=== PATIENT | female | born 1935 | race Caucasian/White ===

== ENCOUNTER → 2017-10-14 13:57 | Outpatient (CLI) | payer SELFPAY ==
[2016-07-10 14:12] VITALS: BMI 23.1
--- NOTE | 2017-10-14 14:04 | ECHOD_ITS ---
Reason For Study: Murmur Procedure This was a 2D Doppler, Color Flow transthoracic echocardiogram. Exam performed in department. Left Ventricle Mild concentric left ventricular hypertrophy. The estimated ejection fraction is 65 %. Stage 2 diastolic dysfunction. No regional wall motion abnormalities noted. Right Ventricle Mildly dilated right ventricle. Normal systolic function. Atria The left atrium is moderately enlarged. Normal right atrium. Normal atrial septum. Mitral Valve Mild diffuse mitral valve thickening. Moderate mitral annular calcification extending into the posterior leaflet. Tricuspid Valve Normal tricuspid valve. Trivial tricuspid valve insufficiency. Right ventricular systolic pressure estimated to be 30 mmHg. Aortic Valve Trisinus/trileaflet aortic valve. Moderate focal aortic valve calcification. Mild restriction of the aortic valve. Mild aortic stenosis. Mild (1+) aortic valve insufficiency. Pulmonic Valve Normal pulmonic valve. Great Vessels Normal aortic root. Normal arch. Normal inferior vena cava. Inferior vena cava collapse with sniff. Pericardium/Pleural No pericardial effusion. MMode/2D Measurements & Calculations LVIDd: 3.3 cm IVSd: 1.4 cm LVOT diam: 1.9 cm LVIDs: 2.2 cm LVPWd: 1.1 cm LVOT area: 2.9 cm2 RVDd: 3.8 cm FS: 33.7 % Ao root diam: 3.2 cm LAV(MOD-sp4): 66.3 ml LA A4 area: 22.1 cm2 LA dimension: 4.0 cm RA A4 area: 16.0 cm2 Time Measurements MV dec time: 0.25 sec Doppler Measurements & Calculations MV E max lorne: 104.1 cm/sec Lat Peak E' Lorne: 5.7 cm/sec Med Peak E' Lorne: 5.8 cm/sec MV A max lorne: 117.0 cm/sec E/E' lat: 18.1 E/E' med: 17.9 MV E/A: 0.89 MV V2 max: 141.6 cm/sec MV P1/2t max lorne: 140.6 cm/sec Ao V2 max: 254.6 cm/sec MV max P.0 mmHg MV P1/2t: 95.2 msec Ao max P.0 mmHg MV V2 mean: 79.5 cm/sec MV dec slope: 432.4 cm/sec2 Ao V2 mean: 163.4 cm/sec MV mean P.0 mmHg MVA(P1/2t): 2.3 cm2 Ao mean P.7 mmHg MV V2 VTI: 50.0 cm Ao V2 VTI: 60.1 cm MVA(VTI): 1.3 cm2 LIDIA(I,D): 1.1 cm2 LIDIA(V,D): 1.1 cm2 AI max lorne: 446.9 cm/sec LV V1 max: 96.9 cm/sec SV(LVOT): 65.2 ml AI max P.9 mmHg LV V1 max P.8 mmHg AI dec slope: 202.7 cm/sec2 LV V1 mean P.7 mmHg AI P1/2t: 645.7 msec LV V1 mean: 59.8 cm/sec LV V1 VTI: 22.8 cm PA V2 max: 93.4 cm/sec TR max lorne: 249.3 cm/sec TR max P.9 mmHg Interpretation Summary Mild concentric left ventricular hypertrophy. The estimated ejection fraction is 65 %. Stage 2 diastolic dysfunction. The left atrium is moderately enlarged. Right ventricular systolic pressure estimated to be 30 mmHg. Mild aortic stenosis. Mild (1+) aortic valve insufficiency. Compared to echo report dated 07/08/2016, no appreciable changes noted. Ordering Physician: Dontrell Dawson Referring Physician: Dontrell Dawson Performed By: Matthew Gupta RCS
== END ==
PROVIDERS: Family Provider Family Medicine; PCP Family Medicine; Visit Provider Internal Medicine Cardiovascular Disease
DX: I25.10 Atherosclerotic heart disease of native coronary artery without angina pectoris (principal); I34.0 Nonrheumatic mitral (valve) insufficiency; I10 Essential (primary) hypertension; I11.0 Hypertensive heart disease with heart failure
CPT/HCPCS: 93306

== ENCOUNTER → 2017-11-11 14:06 | Outpatient (CLI) | payer SELFPAY ==
[2016-07-10 14:12] VITALS: BMI 23.1
== END ==
PROVIDERS: Family Provider Family Medicine; PCP Family Medicine; Visit Provider Surgery
DX: I65.23 Occlusion and stenosis of bilateral carotid arteries (principal)
CPT/HCPCS: 93880

== ENCOUNTER → 2017-11-16 08:22 | Outpatient (CLI) | payer SELFPAY ==
[2016-07-10 14:12] VITALS: BMI 23.1
[2017-11-16 08:46] LABS: CREATININE FINGERSTICK < 0.6 mg/dL (0.55-1.02); EGFR FINGERSTICK > 60.0000 mL/min (>60)
== END ==
PROVIDERS: Family Provider Family Medicine; PCP Family Medicine; Visit Provider Surgery
DX: I65.23 Occlusion and stenosis of bilateral carotid arteries (principal)
CPT/HCPCS: 70498; Q9967

== ENCOUNTER → 2018-04-06 09:42 | Outpatient (CLI) | payer SELFPAY ==
[2016-07-10 14:12] VITALS: BMI 23.1
[2018-02-01 10:15] VITALS: BMI 28.8
--- NOTE | 2018-04-06 09:48 | CDU_ITS ---
Reason For Study: carotid stenosis Rt. Velocities/BP Lt. Velocities/BP Prox CCA 75.0/11.1 cm/sec. Prox CCA 70.4/18.8 cm/sec. Mid CCA 78.6/10.6 cm/sec. Mid CCA 79.7/20.5 cm/sec. Dist CCA 57.5/11.1 cm/sec. Dist CCA 95.0/23.5 cm/sec. Prox ICA 75.0/12.9 cm/sec. Prox ICA 314/76.7 cm/sec. Mid ICA 71.5/21.1 cm/sec. Mid ICA 273/56.6 cm/sec. Dist ICA 80.3/24.0 cm/sec. Dist ICA 132/43.2 cm/sec. Rt. ICA/CCA = 1.0. Lt. ICA/CCA = 3.9. Prox ECA 130/9.43 cm/sec. Prox ECA 272 cm/sec. Rt. Vert. 70.4 cm/sec. Lt. Vert. 126/29.5 cm/sec. Right Extracranial There is homogeneous, smooth atherosclerotic plaque noted in the right common carotid artery. There is heterogeneous, irregular atherosclerotic plaque noted in the right internal carotid artery. There is homogeneous, smooth atherosclerotic plaque noted in the right external carotid artery. Antegrade flow is noted in the right vertebral artery. No end diastolic flow seen in the righ Vertebral artery. Left Extracranial There is heterogeneous, irregular atherosclerotic plaque noted in the left common carotid artery. There is heterogeneous, irregular atherosclerotic plaque noted in the left internal carotid artery. The atherosclerotic plaque causes acoustic shadowing. There is heterogeneous, irregular atherosclerotic plaque noted in the left external carotid artery. Antegrade flow is noted in the left vertebral artery. There is heterogeneous, irregular atherosclerotic plaque noted in the left bulb. Procedure Carotid Duplex 80642. The exam was diagnostic. Exam performed in department. 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 History of right carotid endarterectomy 2010. 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 No change from 11/11/17. Ordering Physician: Harinder Barreto Performed By: Duarte Bateman RVT
== END ==
PROVIDERS: Family Provider Family Medicine; PCP Family Medicine; Referring Provider Surgery; Visit Provider Surgery
DX: I65.21 Occlusion and stenosis of right carotid artery (principal); I65.22 Occlusion and stenosis of left carotid artery
CPT/HCPCS: 93880

== ENCOUNTER 2018-05-05 05:40 | Inpatient (IN) | payer SELFPAY ==
[2016-07-10 14:12] VITALS: BMI 23.1
[2018-04-06 12:29] VITALS: BMI 28.7
[2018-04-28 13:29] VITALS: BP 119/43; PULSE 71; RESP 17; TEMP 36.5; O2SAT 96; BMI 29.2
--- NOTE | 2018-04-28 13:52 | SDCEKG_ITS ---
Test Reason : Blood Pressure : / mmHG Vent. Rate : 065 BPM Atrial Rate : 065 BPM P-R Int : 132 ms QRS Dur : 086 ms QT Int : 432 ms P-R-T Axes : 049 046 025 degrees QTc Int : 449 ms Normal sinus rhythm Normal ECG Confirmed by ALISSA MELENDEZ, URBANO ([id number]), newspaper editor managing DESIRAE LINARES ([id number]) on 04/30/2018 3:30:14 PM Referred By: Harinder Barreto Confirmed By:URBANO MAXWELL MD
[2018-04-28 15:53] LABS: Hemoglobin 13.5 g/dl (12.0-15.0); Mean Corp Hgb Conc 33.8 g/gl (32-36); Mean Corpuscular Hgb 28.8 pg (27.0-32.0); Mean Corpuscular Volume 85.3 fL (81-99); Mean Platelet Vol. 10.8 fl (6.2-12.0); Platelet Count 227 K/mm3 (150-450); RBC Distribution Width CV 12.7 % (11.6-14.6); RBC Distribution Width SD 38.6 fl (35.1-43.9); Red Blood Count 4.69 M/mm3 (4.2-5.4); White Blood Count 6.9 K/mm3 (4.4-11.0)
[2018-04-28 15:55] LABS: Scan Indicated on CBC? Y/N NO
[2018-04-28 16:06] LABS: Anion Gap 11 (5-15); BUN 22 mg/dL (7-18); BUN/Creat Ratio 30.9 RATIO (10-20); Calcium,Total 9.3 mg/dL (8.5-10.1); Chloride 104 mmol/L (98-107); Creatinine, Serum 0.71 mg/dL (0.55-1.02); EST Glomerular Filtration Rate 83 mL/min (>60); Est Glom Filt Rate - Afr Amer 101 mL/min (>60); Estimated Creatinine Clearance 44.21 ml/min; Glucose 184 mg/dL (74-106); Potassium 3.8 mmol/L (3.5-5.1); Sodium Level 143 mmol/L (136-145)
[2018-04-28 16:09] LABS: Hemoglobin A1c 8.1 % (4.2-6.3)
[2018-05-05] VITALS (26 sets, daily range): BP systolic 95–176; BP diastolic 39–71; PULSE 61–77; RESP 16–18; TEMP 36.1–36.9; O2SAT 92–100; BMI 29.2; BMI 30.2
[2018-05-05 06:31] LABS: Bedside Glucose 177 mg/dL (70-110)
--- NOTE | 2018-05-05 06:49 | PCM.OPRPT ---
Problem List (1) Carotid stenosis, left Status: Acute Report of Operation Date of Procedure: 05/05/18 Pre-Operative Diagnosis: Critical stenosis left extracranial internal carotid Post-Operative Diagnosis: Same Surgery/Procedure Performed:: Right radial arterial line placement. Left carotid endarterectomy with patch angioplasty Description of Surgical Findings:: Timeout and informed consent was obtained. At the bedside David test performed demonstrating adequate ulnar flow. The right wrist was gently extended and prepped with Betadine. Ultrasound was used to identify the right radial artery. 1% lidocaine was used as a local anesthetic. A total of 1 cc was used. A 20-gauge aero Angiocath was advanced into the vessel and with Seldinger wire technique was easily advanced. It was secured to pressure tubing. Was secured to skin with 3-0 silk. OpSite and Sunshine wrap dressing applied. Hand was viable with no apparent complication good waveform obtained. Timeout and informed consent was obtained. She was taken to the operating room placed supine on the table. She underwent general endotracheal intubation anesthesia. Ancef 2 g given intravenously preoperatively. The left neck was sterilely prepped and draped. An oblique incision was made along the anterior border of the sternocleidomastoid. Sharp dissection was carried down through the subtenons tissue. Hemostasis obtained with electrocautery and 3-0 Vicryl ties. The sternocleidomastoid was reflected laterally as the platysma was incised. Sharp dissection carried down to the internal jugular vein. The crossing facial vein was secured with 3-0 Vicryl. The internal jugular was reflected laterally and the common carotid identified. Circumferential control was seen in the common carotid and a Quintanilla tie of Dacron tape was loosely placed. Dissection was then performed cephalad. The ansa cervicalis was identified and protected. Vagus nerve identified protected. The hypoglossal nerve identified and carefully moved medially. Circumferential control was obtained of the internal carotid and a Dacron tape and Benjamin tourniquet was applied. Circumferential control of the external carotid with a vessel loop and of the superior thyroid with a Quintanilla tie of 3-0 Vicryl. The patient received 1000 units of heparin based upon weight. After adequate Strickling time peripheral vascular clamps were placed in the internal common and external carotid 11 blade was used to make an arteriotomy there was very dense calcific plaque at the carotid bulb and proximal portion of the internal carotid. A Quintanilla scissors is used to advance through this. Then a #10 USCI style shunt was placed cephalad and proximally. It was secured in place with a Dacron and Benjamin tourniquet. A endarterectomy was performed the layer of the external elastic lamina. The plaque was sharply transected proximally then very nice feathering at the internal carotid was achieved and an inversion endarterectomy was performed of the external carotid. Further debris was carefully removed with fine forceps. Irrigation was performed. Kiel that I had a nice endarterectomy with no areas of flap. A Vascu-Guard bovine pericardium patch reference number of [id number] p.m. number [id number]. Lot number [id number] The patch was shaped to form and then a patch angioplasty was created with running 6-0 Prolene. Prior to completion then the shunt was removed the vessel was irrigated the patch angioplasty was completed clamps were removed. There were several areas that required repair so actually the clamps were reapplied briefly as interrupted 7-0 Prolene's were used to repair areas on the patch. Then clamps were removed there appeared to be good pulsatile flow. Cerebral oximetry did demonstrate a slight decline on the left. This resolved with release of all clamps. Several more interrupted 7-0 Prolene sutures were required until hemostasis was achieved. The patient had heparin reversal with 30 mg of protamine. Patient still was oozy at the completion so I did use FloSeal into the neck bed. The wound was then closed in layers by approximating the platysma with a running 3-0 Vicryl. The skin edges proximal and running septic or 5-0 Vicryl. The baltazar-incisional area is anesthetized with 10 cc of 0.5% Marcaine. Steri-Strips Telfa tape dressings applied. Sponge and instrument and needle counts were reported the surgery were correct. Specimen includes a plaque. Drains none. Blood loss 100 cc. Harinder Barreto M.D., F.A.C.S. Type of Anesthesia:: General Anesthesiologist: Estefanía Neumann
--- NOTE | 2018-05-05 06:54 | DCINST_ITS ---
<Harinder Barreto - Last Filed: 05/05/18 06:53> Discharge Diet: Light diet - advance as tolerated - if you have questions about your diet instructions, please talk to you doctor. Discharge Activity: May Not Drive - for 1 week or while taking narcotic pain medicine. May shower in (days): 3 - May shower on Thursday Lifting Restrictions: 10 pounds Call your doctor if your incision/area has: Continuous Slow Oozing, Sudden Increased Bleeding, Increased Pain/ Swelling, Increased Redness, Foul Smelling Discharge Call your doctor if you observe: Fever of 101 or Higher Suture Line Care: Avoid Pulling/Pushing, Avoid Pinching/Bending Additional Dressing/Incision Instructions:: You may protect the incision with a gauze dressing and tape as needed. If nothing is rubbing on the incision then it may be left open. Remove the Steri-Strips approximately 7 days after discharge Allergies/Adverse Reactions: Allergies rosuvastatin Adverse Reaction (Verified 04/28/18 13:18) myalgia Medications to take at Discharge Nitroglycerin [Nitrostat] 0.4 mg SUBLINGUAL Q5M PRN #20 tab 07/11/16 sertraline 50 mg tablet 50 mg PO QHS 03/09/17 vitamin B complex tablet 1 tab PO DAILY 04/06/18 Aspirin E.C. [Ecotrin] 81 mg PO DAILY@0800 04/28/18 Cholecalciferol (Vitamin D3) [Vitamin D3] 10,000 unit PO QODAY 04/28/18 Clopidogrel Bisulfate [Plavix] 75 mg PO DAILY 04/28/18 Lisinopril [Zestril] 20 mg PO BID 04/28/18 Metoprolol Tartrate 12.5 mg PO BID 04/28/18 Simvastatin 40 mg PO QPM 04/28/18 Ubidecarenone/Vitamin E [Co Q-10 50 mg Softgel] 1 each PO QHS 04/28/18 Hydrocodone Bitart/Apap 5-325 [[place] 5MG-325MG] 1 tablet PO Q6H PRN PRN 2 Days #6 tablet 05/05/18 The following prescriptions were given: Hydrocodone Bitart/Apap 5-325 [[place] 5MG-325MG] 1 tablet PO Q6H PRN PRN 2 Days #6 tablet PRN Reason: Pain Primary Care Physician: Murphy Burton DO [Primary Care Provider] - Test Results: Test results from this visit will be discussed in further detail at your follow- up appointment, if applicable. Please Follow Up With: Harinder Barreto MD - [phone] When: Call to make an appointment to be seen in about 10 days. <Shaina Sears - Last Filed: 05/06/18 11:00> Test Results: Test results from this visit will be discussed in further detail at your follow- up appointment, if applicable. Proposed Discharge Date: 05/06/18
[2018-05-05] MEDS: Cefazolin 2 GM in 0.9% Normal Saline 100 ML IV (07:15)
--- NOTE | 2018-05-05 07:15 | PLAQ_PTH ---
PATIENT: SOPHIA PRATHER LOC: [facility] U#:[id number] AGE/SX: 83/F ROOM: WA301 RE05/05/[address]: Dr. Harinder Barreto MD : [id number] BED: 1 DIS: 05/06/2018 SPEC #: [id number] RECD: 05/05/18 14:02 STATUS: JAZMYN MARESZac #: [id number] RITA: 05/05/18 07:[address]: Harinder Barreto DEPT: SURGICAL PATHOLOGY RECD BY: Agusto Castellano ENTERED: 05/05/18 14:11 SP TYPE: PLAQUE OTHR DR: Dr. Murphy Burton, DO Tissues: PLAQUE Procedures: Decalcification bone/plaque Surgery Specimen Level III HEADER OPERATION: Carotid endarterectomy PRE-OP DIAGNOSIS: Left carotid stenosis TISSUE SUBMITTED: Left carotid plaque MICROSCOPIC DIAGNOSIS Left carotid plaque, endarterectomy: Fragments of calcified atheromatous plaque. Focal osseous and hemopoietic metaplasia. AM:joey 05/10/18 COMMENT Case has been reviewed in consultation with Dr. Winn who concurs with the above diagnosis. IDC:TIP GROSS DESCRIPTION Received in fixative is one container labeled with the patient's name and designated left carotid plaque. The specimen consists of a Y-shaped piece of keating, indurated tissue measuring 3.5 cm in length and up to 1 cm in diameter. The specimen cuts with gritty sensation. One edge is focally obliterated. The entire specimen is submitted in one cassette after decalcification. / TIP:joey 05/05/18 TC:5 CPT: 02885, 53466
[2018-05-05] MEDS: Heparin Injection (Vial) 5,000 UNIT/ML VIAL 5000 UNIT (07:43)
[2018-05-05] MEDS: Bupivacaine 0.5% PF 10 ML VIAL (09:45)
--- NOTE | 2018-05-05 11:38 | NURSING ---
disparity noted between monitor arm BP and arterial BP, RN noted pressure bag had deflated since pt arrival, art line flushed and zeroed and pressure bag reinflated, arterial BP and monitor BP left arm now are within 10 points of each other, pt cont to c/o headache, but states is improving. neuro check intact.
[2018-05-05 12:36] LABS: Bedside Glucose 162 mg/dL (70-110)
--- NOTE | 2018-05-05 14:11 | NURSING ---
Arrived to floor at this time via bed.
--- NOTE | 2018-05-05 15:48 | NURSING ---
Pt has tolerated a clear liquid diet since arrived to floor. Pt instructed how to order meals and that she is a regular diet per orders. HOB is at 30 degrees and Foot of bed is Elevated at approximately 10 degrees.
--- NOTE | 2018-05-05 16:11 | CPS ---
STARTED BY NURSING
[2018-05-05] MEDS: Cefazolin 1 GM/50 ML BAG IV ×2 (16:57→23:46)
[2018-05-05] MEDS: Lactated Ringers 1,000 ML 30 ML IV (16:57)
[2018-05-05] MEDS: Sertraline 50 MG Tablet PO (21:50)
[2018-05-05] MEDS: Lisinopril 20 MG Tablet PO (21:50)
[2018-05-05] MEDS: Metoprolol Tartrate 25 MG Tablet 12.5 MG PO (21:51)
[2018-05-05] MEDS: 0.9% NaCl Peripheral Flush Adult/Peds IV (23:46)
--- NOTE | 2018-05-05 23:50 | NURSING ---
Walked with pt in the stark-walked half the loop. Pt tolerated well. Pt returned to bed with HOB & legs elevated. SCD's applied.
[2018-05-06] VITALS (7 sets, daily range): BP systolic 138–150; BP diastolic 54–87; PULSE 68–89; RESP 16–18; TEMP 36.8–37.4; O2SAT 93–100
--- NOTE | 2018-05-06 06:19 | PCM.PN.SRG ---
Subjective: Minimal raspy voice but was difficult intubation and passage of tube - Physical Exam HEENT: - - supple neck Neurological: Cranial nerves II-XII grossly intact Vital Signs Temp Pulse Resp BP Pulse Ox 99.4 F H 77 16 138/65 H 95 05/06/18 05:27 05/06/18 05:27 05/06/18 05:27 05/06/18 05:27 05/06/18 05:27 Oxygen Flow Rate (L/min) 2 Oxygen Delivery Method Room Air Weight: 155 lb 2 oz Body Mass Index (BMI) 30.2 Finger Stick Blood Glucose 164 Intake and Output for Last 24 Hours 05/04/18 05/05/18 05/06/18 23:59 23:59 23:59 Intake Total 3071 / 3071 169 / 169 Balance 3071 / 3071 169 / 169 POC Glucose 05/05/18 05/05/18 12:29 06:06 POC Glucose 162 H 177 H Medical Necessity - Tobacco Use Smoking Status: Never smoker Assessment/Plan All Active Problems (Last Reviewed 04/06/18 @ 12:29 by Amparo Ding) Carotid stenosis, left (Acute) Nonrheumatic mitral (valve) insufficiency (Acute) Chest pain (Resolved) Hypertensive urgency (Resolved) Minimal fever, likely pulmonary Mobilize pt and plan discharge today
[2018-05-06] MEDS: Aspirin E.C. 81 MG Tablet PO (08:01)
[2018-05-06] MEDS: Acetaminophen 325 MG Tablet PO (08:01)
[2018-05-06] MEDS: Metoprolol Tartrate 25 MG Tablet 12.5 MG PO (08:05)
[2018-05-06] MEDS: Lisinopril 20 MG Tablet PO (08:06)
== END 2018-05-06 13:05 | disposition home or self-care (01) | DRG 39 ==
PROVIDERS: Anesthesiology; Admitting Provider Surgery; Family Provider Family Medicine; PCP Family Medicine; Referring Provider Surgery; Visit Provider Surgery
PROC: 03CL0ZZ Extirpation of Matter from Left Internal Carotid Artery, Open Approach (ICD-10-PCS; CPT 35301; principal; 2018-05-05 06:55)
DX: I65.22 Occlusion and stenosis of left carotid artery (principal)
CPT/HCPCS: 80048; 82962; 83036; 85027; 88304; 88311; 93005; J7040; J7120; A4216; J2405

== ENCOUNTER 2018-05-06 18:25 | Inpatient (IN) | payer SELFPAY ==
[2016-07-10 14:12] VITALS: BMI 23.1
[2018-05-05 14:11] VITALS: BMI 30.2
[2018-05-06] VITALS (14 sets, daily range): BP systolic 139–230; BP diastolic 64–95; PULSE 85–113; RESP 14–27; TEMP 36.4–37; O2SAT 50–96; BMI 30.5; BMI 28.7
--- NOTE | 2018-05-06 18:37 | ED.DCSUM_ITS ---
- ER Visit Summary Date of Service: 05/06/18 Chief Complaint: Dyspnea History of Present Illness: The patient is a 83 F sent in by surgery team for sudden worsening dyspnea prior to arrival. Status post left carotid endarterectomy yesterday by Dr. Barreto discharge at noon today. Is doing well. States at home prior to arrival felt short of breath trouble catching her breath. States did cough a little sputum. On the way here in she did clear her sputum which helped. States the chills and sweats. However it resolved. No chest pains. Physical Examination: General: Alert and oriented ?3, no acute distress HEENT: Normocephalic, atraumatic. Moist mucosa membranes. Airway patent. No stridor. Neck: supple, left anterior neck with Steri-Strips sutures with no bleeding, no hematoma. Cardiovascular: Regular rate and rhythm, no murmurs Respiratory: Normal breath sounds, symmetric, no distress Abdomen: Soft, nontender, nondistended Extremities: Nontender, no edema, pulses intact ?4 Neuro: no focal neurological deficits. Test Results: WBC 13.9 hemoglobin 12.3. Potassium 4.1. Creatinine 0.69. Glucose 224. Troponin 0 0.096. EKG sinus rhythm [address] changes. I see T wave inversion in leads III. CTA chest: No PE scattered airspace disease concer basia for pneumonia. Emergency Department Course and Treatment: Patient came to the department Dr. Barreto present evaluated she was in no respiratory distress. There was no surgical complications with hematoma or any airway compromise on evaluation. Return vitals pulse ox was 75% on room air and this was accurate per nursing. She was not in respiratory distress. Workup initiated to rule out pulmonary embolism. Labs White count 13, creatinine 0.69. Troponin did have a bump of 0.096. EKG sinus chronic T wave inversions in leads III. CTA chest return negative for PE did note some scattered patchy airspace disease. She was hypoxic, had cough with sputum prior to arrival. She has a white count. Lactic acid and blood cultures due to meeting sepsis criteria. Started on Zosyn and vancomycin. Reevaluation at 2030, increasing work of breathing tachycardic and blood pressure elevation. Discussed respiratory placed on a nasal OptiFlow ABG ordered. I did rediscuss with her surgeon Dr. Barreto cleared for anticoagulation with the elevated troponin aspirin was given. She has no chest pain. Likely strain from her pneumonia. Discussed with hospitalist, Dr. Ron for admission to ICU. Treatment Plan: [] Disposition: Admission Impression: 1. Sepsis 2. Pneumonia 3. Elevated troponin IV. Acute respiratory failure 5. Status post left CEA 6. Hypoxemia This note was generated with Kelan dictation software. It may contain incorrect words, spelling, and punctuation that were not noted in review of the chart prior to signing ED Disposition - Plan for ED Patient: Disposition: Acute Care Hospital [facility] Diagnosis: Pneumonia, Sepsis, Respiratory failure, Elevated troponin, Hypoxemia Referrals: Murphy Burton DO [Primary Care Provider] -
--- NOTE | 2018-05-06 18:58 | CT_ITS ---
STUDY: CTA CHEST REASON FOR EXAM: Female, 83 years old. Hypoxia with history of left carotid endarterectomy. RADIATION DOSAGE (If Supplied By Facility): CTDIvol = ( 6.75 ) mGy, DLP = ( 337.94 ) mGycm TECHNIQUE: The examination was performed with the intravenous administration of 75mL ml of Isovue 370 contrast material. Post-processing of the angiographic images was performed, with multiplanar reformation and 3D reconstruction. Individualized dose optimization techniques were used for this CT. COMPARISON: None. FINDINGS: Normal enhancement of the main pulmonary artery and right and left pulmonary arteries. Normal enhancement of the bilateral peripheral pulmonary arteries. There is no demonstrated pulmonary embolism. There is atherosclerotic calcification of the aortic arch with tortuosity. There is no demonstrated aortic dissection. There are calcifications of the coronary arteries. There are calcified mediastinal lymph nodes. There are calcified bilateral hilar lymph nodes. Normal visualized trachea and bronchi. The lungs are well expanded. Basilar segment left upper lobe airspace disease is present with peribronchial inflammation. There is demonstrated bilateral peribronchial edema with patent bronchials. Bilateral small effusions and scattered areas of basilar airspace disease are present. Small bilateral pleural effusions are present. Normal chest wall structures. Normal osseous structures. Normal visualized upper abdomen. CT/CTA Chest W/WO Contrast IMPRESSION: 1. No evidence of pulmonary embolism or aortic dissection. 2. Left upper lobe basilar segment airspace disease with peribronchial edema versus inflammation. Bilateral basilar peribronchial edema versus inflammation with scattered early patchy airspace disease and small bilateral effusions. Electronically Signed: Deshawn Tellez DO at 20:16 EST , Service support ,
--- NOTE | 2018-05-06 18:58 | EKG12_ITS ---
Test Reason : Blood Pressure : / mmHG Vent. Rate : 096 BPM Atrial Rate : 096 BPM P-R Int : 128 ms QRS Dur : 078 ms QT Int : 348 ms P-R-T Axes : 071 059 018 degrees QTc Int : 439 ms Normal sinus rhythm Junctional ST depression, probably normal Borderline ECG Confirmed by ALISSA MELENDEZ, URBANO ([id number]), offline editor DESIRAE LINARES ([id number]) on 05/10/2018 10:41:53 AM Referred By: Gutierrez Ron Confirmed By:URBANO MAXWELL MD
[2018-05-06 19:20] LABS: Absolute Lymphocyte Count 1.14 X10^3/ul (0.83-4.51); Absolute Neutrophil Count 11.5 X10^3/uL (2.0-7.7); Basophil# 0.02 X10^3/uL; Basophil% 0.1 % (0-1); Eosinophil# 0.11 X10^3/uL; Eosinophils% 0.8 % (0-5); Hematocrit 37.6 % (37-47); Hemoglobin 12.3 g/dl (12.0-15.0); Lymphocyte # 1.14 X10^3/ul (4.0); Lymphocyte % 8.2 % (19-41); Mean Corp Hgb Conc 32.7 g/gl (32-36); Mean Corpuscular Hgb 28.5 pg (27.0-32.0); Mean Corpuscular Volume 87.2 fL (81-99); Mean Platelet Vol. 10.3 fl (6.2-12.0); Monocyte# 1.12 X10^3/uL; Neutrophil % 82.5 % (47-70); Platelet Count 178 K/mm3 (150-450); RBC Distribution Width CV 12.8 % (11.6-14.6); Red Blood Count 4.31 M/mm3 (4.2-5.4); White Blood Count 13.9 K/mm3 (4.4-11.0)
[2018-05-06 19:34] LABS: POSITIVE COUNT NO; POSITIVE DIFFERENTIAL NO; POSITIVE MORPHOLOGY NO
[2018-05-06 19:37] LABS: Anion Gap 8 (5-15); BUN 18 mg/dL (7-18); Calcium,Total 8.3 mg/dL (8.5-10.1); Chloride 102 mmol/L (98-107); Creatinine, Serum 0.69 mg/dL (0.55-1.02); EST Glomerular Filtration Rate 86 mL/min (>60); Est Glom Filt Rate - Afr Amer 104 mL/min (>60); Estimated Creatinine Clearance 46.16 ml/min; Glucose 224 mg/dL (74-106); Potassium 4.1 mmol/L (3.5-5.1); Sodium Level 138 mmol/L (136-145)
[2018-05-06 19:59] LABS: International Normalized Ratio 0.9; Prothrombin Time (Protime)PT. 12.6 SECONDS (11.7-14.9)
[2018-05-06] MEDS: Aspirin 325 MG Tablet PO (21:04)
[2018-05-06 21:07] LABS: Allen Test POS; Base Excess 0 mmol/L (-2 to +2); Bicarbonate 24.2 mmol/L (22-26); Blood Gas Specimen Type ART; EPAP 5; FI02 50; PO2 58 mmHG (75-100); RR 27; SITE L Radial; SO2 91 % (95-99); Total Carbon Dioxide 25 mmol/L; pCO2 34.2 mmHg (35-45); pH 7.46 (7.35-7.45)
[2018-05-06] MEDS: Vancomycin IV 1,000 MG/200 ML BAG 200 MG IV (22:02)
[2018-05-06] MEDS: Sertraline 50 MG Tablet PO (23:08)
[2018-05-06] MEDS: Metoprolol Tartrate 25 MG Tablet 12.5 MG PO (23:08)
[2018-05-06] MEDS: Heparin Injection (Vial) 5,000 UNIT/ML VIAL 5000 UNIT SC (23:09)
[2018-05-07] VITALS (28 sets, daily range): BP systolic 95–146; BP diastolic 44–61; PULSE 65–84; RESP 13–95; TEMP 36.8–37.4; O2SAT 88–99
[2018-05-07 01:24] LABS: M R Staph aureus DNA By PCR Negative (Negative); Probe Check PASS; Specimen Processing Control PASS
--- NOTE | 2018-05-07 02:17 | PCM.RX.CS ---
Consult Pharmacy has been consulted to manage selected antiobiotic: Vancomycin Type of Consult: New start Suspected Infection: Sepsis Prior Doses of Antibiotics Received/Current Regimen: Medications Vancomycin HCl () 500 mg in 100 mls @ 100 mls/hr IV Q12H MASOOD Discontinued Medications Vancomycin HCl (Vancomycin) 1,000 mg in 200 mls @ 200 mls/hr IV X1 ONE Stop: 05/06/18 21:59 Last Admin: 05/06/18 22:02 Dose: 200 mls/hr Labs: Sodium 138 mmol/L (136-145) 05/06/18 19:09 Potassium 4.1 mmol/L (3.5-5.1) 05/06/18 19:09 Chloride 102 mmol/L (98-107) 05/06/18 19:09 Carbon Dioxide 28.0 mmol/L (21.0-32.0) 05/06/18 19:09 Anion Gap 8 (5-15) 05/06/18 19:09 BUN 18 mg/dL (7-18) 05/06/18 19:09 Creatinine 0.69 mg/dL (0.55-1.02) 05/06/18 19:09 Est GFR (MDRD) Af Amer 104 mL/min (>60) 05/06/18 19:09 Est GFR (MDRD) Non-Af 86 mL/min (>60) 05/06/18 19:09 BUN/Creatinine Ratio 26.0 RATIO (10-20) H 05/06/18 19:09 Glucose 224 mg/dL (74-106) H 05/06/18 19:09 Microbiology: Microbiology 05/07/18 00:00 Urine, Random Legionella Antigen - Final 05/07/18 00:00 Urine, Random Streptococcus pneumoniae Antigen (M - Final Weight used for dosin.6 kg Estimated Creatinine Clearance: 46 Goal Trough: 15-20 mcg/mL Pharmacy Plan for Drug Dosing: Pharmacy Service will continue to monitor and adjust dosing as required. Follow-Up Labs: Trough Vancomycin Labs to be done on [date and time ordered]: 05/08/18 @8133
--- NOTE | 2018-05-07 02:50 | HP.PCM_ITS ---
Problem List (1) Community acquired pneumonia Status: Acute (2) Elevated troponin Status: Acute History of Present Illness Date of Admission: 05/06/18 Chief Complaint: shortness of breath Patient was seen on 05/06/2018 at 2200 The patient is a 83 year old F with a significant history of TIA; CAD; diabetes mellitus; hypertension; hyperlipidemia; previous right carotid endarterectomy; who had a left carotid endarterectomy at our hospital on 05/05 and discharged on 05/06/2018 returning again to the hospital on the same day because of progressively worsening shortness of breath. Associated with her symptoms is weakness; diaphoresis and presyncope. On presentation at the emergency department her oxygen saturation was 75%. She was noted to have tachycardia. CTA showed no PE but developing pneumonia. She had a white count of 13.9. At the Emergency department patient was noted to have increased work of breathing with use of her accessory muscles she was initially placed and OptiFlow but later she was transitioned to BiPAP. Patient was admitted to the intensive care unit. Because of elevated troponin but with a recent carotid endarterectomy emergency department doctor discussed the case with a general surgery group that did the carotid endarterectomy. Per general surgery it is okay for patient to receive aspirin. Subsequently patient was given aspirin while at the emergency d epartment. Past Medical History Past Medical History (Chronic Problems): Chronic Problems (Last Reviewed 04/06/18 @ 12:29 by Amparo Ding) Aortic stenosis (Chronic) H/O right coronary artery stent placement (Chronic ~07/10/16) PCI-HIRAL-RCA 3.5 x 12 mm Synergy 07/10/16 Atherosclerotic heart disease of [place] coronary artery without angina pectoris (Chronic) PCI-HIRAL-RCA 3.5 x 12 mm Synergy 07/10/16 HTN (hypertension) (Chronic) HLD (hyperlipidemia) (Chronic) Occlusion and stenosis of right carotid artery (Chronic) PAD (peripheral artery disease) (Chronic) Medical History: Medical History (Last Reviewed 05/07/18 @ 03:25 by Gutierrez Ron MD) Carotid stenosis, left (Acute) I65.22 Nonrheumatic mitral (valve) insufficiency (Acute) I34.0 Atherosclerotic heart disease of [place] coronary artery without angina pectoris (Chronic) I25.10 PCI-HIRAL-RCA 3.5 x 12 mm Synergy 07/10/16 HTN (hypertension) (Chronic) I10 HLD (hyperlipidemia) (Chronic) E78.5 Occlusion and stenosis of right carotid artery (Chronic) I65.21 PAD (peripheral artery disease) (Chronic) I73.9 History of hysterectomy Z90.710 Occlusion and stenosis of left carotid artery I65.22 Aortic valve disorders I35.9 Allergies rosuvastatin Adverse Reaction (Verified 05/06/18 18:26) myalgia Home Medications: Ambulatory Orders Medication Instructions Recorded Nitroglycerin [Nitrostat] 0.4 mg SUBLINGUAL Q5M PRN #20 tab 07/11/16 sertraline 50 mg tablet 50 mg PO QHS 03/09/17 Aspirin E.C. [Ecotrin] 81 mg PO DAILY@0800 04/28/18 Acetaminophen [Tylenol] 650 mg PO PRN PRN 05/06/18 Metoprolol Tartrate 12.5 mg PO BID 05/06/18 Simvastatin [Zocor] 40 mg PO DAILY 05/06/18 Surgical History: Surgical History (Last Reviewed 05/07/18 @ 03:26 by Gutierrez Ron MD) H/O right coronary artery stent placement (Chronic) Onset Date: ~07/10/16 Z95.5 PCI-HIRAL-RCA 3.5 x 12 mm Synergy 07/10/16 History of CEA (carotid endarterectomy) Z98.890 right CEA 2011 Surgical History: hysterectomy - For uterine prolapse, - - Right carotid endarterectomy Lives: With Family Smoking Status: Never smoker - *Family History Paternal Family History: Family History (Last Reviewed 05/07/18 @ 03:26 by Gutierrez Ron MD) Father CAD (coronary artery disease) Hypertension Sister CVA (cerebral vascular accident) Diabetes Arthritis Mother Cancer Daughter Thyroid disorder History Items: Heart Disease Maternal Family History: Family History (Last Reviewed 05/07/18 @ 03:26 by Gutierrez Ron MD) Father CAD (coronary artery disease) Hypertension Sister CVA (cerebral vascular accident) Diabetes Arthritis Mother Cancer Daughter Thyroid disorder History Items: Stroke Review of Systems Constitutional: Reports: Malaise, Weakness. Denies: Chills, Fever, Weight Change HEENT: Denies: Head Aches, Sinus Congestion, Sinus Drainage Cardiovascular: Denies: Chest Pain, Palpitations Respiratory: Reports: Shortness of Breath. Denies: Cough Gastrointestinal: Denies: Abdominal Pain, Nausea, Vomiting Genitourinary: Denies: Dysuria Musculoskeletal: Denies: Joint Pain, Joint Tenderness Skin: Denies: Rash, Wounds Neurological: Denies: Numbness, Tingling, Focal weakness Psychiatric: Denies: Anxiety, Depression, Homicidal Ideations, Suicidal Ideations Hematologic/ Lymphatic: Denies: Easy Bruising, Easy Bleeding VTE Information - Inpt Only VTE Present on Admission: No VTE Mechan Device Prophylaxis: None VTE Pharm Prophylaxis ordered?: Yes Patient Problems: Active and Suspected Problems (Last Reviewed 04/06/18 @ 12:29 by Amparo Ding) Pneumonia (Acute) Sepsis (Acute) Respiratory failure (Acute) Elevated troponin (Acute) Hypoxemia (Acute) Community acquired pneumonia (Acute) - Physical Exam General: Alert, Oriented x3, Cooperative HEENT: Atraumatic, PERRLA, EOMI, Normocephalic Neck: Supple, Trachea Midline, - - left neck with steri strips, dry and intact. Lungs: Clear to auscultation, Tachypneic, Using Accessory Muscles Cardiovascular: No murmurs, Tachycardic Abdomen: Bowel Sounds Present, Soft, Non Tender Extremities: No edema, Capillary Refill Less than 3 Seconds Skin: No rashes, No breakdown Musculoskeletal: No Tenderness to Palpation of Joints or Extremities Neurological: Neuro grossly intact Psych/Mental Status: Anxious Vital Signs Temp Pulse Resp BP Pulse Ox 99.2 F H 74 19 H 146/57 H 98 05/07/18 00:00 05/07/18 02:00 05/07/18 02:00 05/07/18 02:00 05/07/18 02:00 Oxygen Flow Rate (L/min) 6 Oxygen Delivery Method Nasal Cannula Weight: 66.7 kg Body Mass Index (BMI) 28.7 Finger Stick Blood Glucose 164 Intake and Output for Last 24 Hours 05/05/18 05/06/18 05/07/18 23:59 23:59 23:59 Intake Total 408 / 408 Output Total 320 / 320 Balance 88 / 88 Microbiology Past 72 Hours 05/07/18 00:00 Legionella Antigen - Final Urine, Random 05/07/18 00:00 Streptococcus pneumoniae Antigen (M - Final Urine, Random Laboratory Tests Past 24 Hrs 05/06/18 05/06/18 05/06/18 19:09 19:09 19:09 WBC 13.9 H RBC 4.31 Hgb 12.3 Hct 37.6 MCV 87.2 MCH 28.5 MCHC 32.7 RDW 12.8 RDW Differential 41.0 Plt Count 178 MPV 10.3 Immature Gran % (Auto) 0.400 Neut % (Auto) 82.5 H Lymph % (Auto) 8.2 L [place] % (Auto) 8.0 Eos % (Auto) 0.8 Baso % (Auto) 0.1 Absolute Neuts (auto) 11.5 H Absolute Lymphs (auto) 1.14 Total Counted Not Reportable PT 12.6 INR 0.9 APTT 25.0 Specimen Type Sample Site pH Bicarbonate Actual POC Total CO2 Base Excess O2 Saturation O2 % ABG pCO2 ABG pO2 David Test Respiration Rate O2 Delivery Device EPAP IPAP Sodium 138 Potassium 4.1 Chloride 102 Carbon Dioxide 28.0 Anion Gap 8 BUN 18 Creatinine 0.69 Estim Creat Clear Calc 46.16 Est GFR (MDRD) Af Amer 104 Est GFR (MDRD) Non-Af 86 BUN/Creatinine Ratio 26.0 H Glucose 224 H Lactic Acid Calcium 8.3 L Troponin I 0.096 H MRSA (PCR) 05/06/18 05/06/18 05/06/18 20:45 20:59 22:34 WBC RBC Hgb Hct MCV MCH MCHC RDW RDW Differential Plt Count MPV Immature Gran % (Auto) Neut % (Auto) Lymph % (Auto) [place] % (Auto) Eos % (Auto) Baso % (Auto) Absolute Neuts (auto) Absolute Lymphs (auto) Total Counted PT INR APTT Specimen Type ART Sample Site L Radial pH 7.46 H Bicarbonate Actual 24.2 POC Total CO2 25 Base Excess 0 O2 Saturation 91 L O2 % 50 ABG pCO2 34.2 L ABG pO2 58 L David Test POS Respiration Rate 27 O2 Delivery Device Bi / C PAP EPAP 5 IPAP 5 Sodium Potassium Chloride Carbon Dioxide Anion Gap BUN Creatinine Estim Creat Clear Calc Est GFR (MDRD) Af Amer Est GFR (MDRD) Non-Af BUN/Creatinine Ratio Glucose Lactic Acid 1.0 Calcium Troponin I 0.758 H* MRSA (PCR) 05/06/18 05/07/18 22:34 01:00 WBC RBC Hgb Hct MCV MCH MCHC RDW RDW Differential Plt Count MPV Immature Gran % (Auto) Neut % (Auto) Lymph % (Auto) [place] % (Auto) Eos % (Auto) Baso % (Auto) Absolute Neuts (auto) Absolute Lymphs (auto) Total Counted PT INR APTT Specimen Type Sample Site pH Bicarbonate Actual POC Total CO2 Base Excess O2 Saturation O2 % ABG pCO2 ABG pO2 David Test Respiration Rate O2 Delivery Device EPAP IPAP Sodium Potassium Chloride Carbon Dioxide Anion Gap BUN Creatinine Estim Creat Clear Calc Est GFR (MDRD) Af Amer Est GFR (MDRD) Non-Af BUN/Creatinine Ratio Glucose Lactic Acid Calcium Troponin I 1.410 H* MRSA (PCR) Negative Assessment/Plan All Active Problems (Last Reviewed 04/06/18 @ 12:29 by Amparo Ding) Pneumonia (Acute) Sepsis (Acute) Respiratory failure (Acute) Elevated troponin (Acute) Hypoxemia (Acute) Community acquired pneumonia (Acute) Carotid stenosis, left (Acute) Nonrheumatic mitral (valve) insufficiency (Acute) Chest pain (Resolved) Hypertensive urgency (Resolved) The patient is a 83 year old F with a significant history of TIA; CAD; diabetes mellitus; hypertension; and hyperlipidemia who had a left endarterectomy at our hospital on 05/05 and discharged on 05/06/2018 returning again to the hospital on the same day because of progressively worsening shortness of breath; diaphoresis; presyncope and generalized weakness and found to have tachypnea; tachycardia; leukocytosis; elevated troponin; hypoxia and developing pneumonia on CTPA consistent with sepsis secondary to community acquired pneumonia. Sepsis secondary to community-acquired pneumonia Lactic acid: Normal RR: persistently high and between 21-27 Tachycardia: Heart rate between 96-113 Oxygen saturation: 75% required supplemental oxygenation Leukocytosis with white count of 13.9; and with neutrophilic predominance. Blood culture ?2 is pending Independent review of CT shows bilateral multiple infiltrates. Respiratory Gram stain and culture pending Antibiotics: Vancomycin and Zosyn was started on 05/06/2018. Continue vancomycin and Zosyn. MRSA screen ordered. DuoNeb scheduled. Albuterol as needed Legionella antigen screen and Strep antigen ordered Bipap continued Respiratory pathogen panel ordered. Classified as committee acquired pneumonia since patient spent less than 48 hrs. at the hospital. Acute hypoxemic respiratory failure Oxygen saturations 95% on presentation and with use of accessory muscles of respiration. Likely secondary to pneumonia Treatment as above. Hypertension Initially her systolic blood pressure was controlled and it was as high as 230. Cardene drip was ordered to keep blood pressure between 140-160. However before Cardene drip was started her blood pressure had dropped such that she did not need a Cardene drip. Metoprolol continued Trend blood pressures and adjust blood pressure medications. Elevated troponin Her troponin initially was 0.096 and it followed arising because it was high as 1.410. Differential diagnosis include type II PR and non-ST elevation PR. Patient denies chest pain Received aspirin 325 mg at emergency department Daily aspirin ordered. On simvastatin 40 mg at home. Will change to high intensity statin. Consult cardiology. Recent left-sided carotid anatomy Bruno as needed continued Depression Zoloft continued DVT prophylaxis: Heparin subcutaneous. Code Visit Inpatient E&M: 24552 Init Hosp L3
[2018-05-07] MEDS: 0.9% NaCl Peripheral Flush Adult/Peds IV ×3 (04:52→06:20)
[2018-05-07] MEDS: Atorvastatin Calcium 40 MG Tablet PO (04:55)
[2018-05-07 05:15] LABS: Absolute Lymphocyte Count 2.45 X10^3/ul (0.83-4.51); Absolute Neutrophil Count 6.1 X10^3/uL (2.0-7.7); Basophil# 0.02 X10^3/uL; Basophil% 0.2 % (0-1); Hematocrit 35.1 % (37-47); Hemoglobin 11.7 g/dl (12.0-15.0); Lymphocyte # 2.45 X10^3/ul (4.0); Lymphocyte % 24.9 % (19-41); Mean Corp Hgb Conc 33.3 g/gl (32-36); Mean Corpuscular Volume 87.1 fL (81-99); Mean Platelet Vol. 10.6 fl (6.2-12.0); Monocyte# 1.15 X10^3/uL; Monocyte% 11.7 % (0-10); Neutrophil # 6.09 X10^3/uL (2.7-7.7); Neutrophil % 62.1 % (47-70); Platelet Count 177 K/mm3 (150-450); RBC Distribution Width CV 12.4 % (11.6-14.6); RBC Distribution Width SD 38.7 fl (35.1-43.9); Red Blood Count 4.03 M/mm3 (4.2-5.4); White Blood Count 9.8 K/mm3 (4.4-11.0)
[2018-05-07 05:17] LABS: POSITIVE COUNT NO; POSITIVE DIFFERENTIAL NO; POSITIVE MORPHOLOGY NO
--- NOTE | 2018-05-07 05:56 | PCM.PN.BLA ---
Progress Note Pt appears very comfortable No productive cough Left neck supple, minimal tenderness Neuro intact Pt may be on all home meds including ASA and clopidogrel Plan office followup in 7-10 days Appreciate medical assistance
[2018-05-07] MEDS: Furosemide 40 MG/4 ML Vial IV (06:20)
--- NOTE | 2018-05-07 06:51 | PCM.CON.CC ---
Problem List (1) Respiratory failure Status: Acute Qualifiers: Chronicity: acute Respiratory failure complication: hypoxia Qualified Code(s): J96.01 - Acute respiratory failure with hypoxia (2) Elevated troponin Status: Acute (3) Aortic stenosis Status: Chronic Qualifiers: Cardiac valve disease etiology: nonrheumatic Qualified Code(s): I35.0 - Nonrheumatic aortic (valve) stenosis (4) Carotid stenosis, left Status: Acute Comment: Carotid endarterectomy April 2018 (5) H/O right coronary artery stent placement Status: Chronic Comment: PCI-HIRAL-RCA 3.5 x 12 mm Synergy 07/10/16 (6) HTN (hypertension) Status: Chronic Qualifiers: Hypertension type: essential hypertension Qualified Code(s): I10 - Essential (primary) hypertension (7) HLD (hyperlipidemia) Status: Chronic Qualifiers: Hyperlipidemia type: pure hypercholesterolemia Qualified Code(s): E78.00 - Pure hypercholesterolemia, unspecified; E78.0 - Pure hypercholesterolemia (8) 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 Patient had a left carotid endarterectomy yesterday by Dr. Barreto and was discharged. Patient states she felt well at discharge, but in the evening developed acute shortness of breath. Patient did have a cough with mild sputum. Patient reported subjective fevers, but no temperature was taken. Patient denies any chest pain during these events. No swelling or discomfort was noted at the surgical site. In the emergency room, patient was evaluated by Dr. Barreto and there were no surgical complications or airway compromise noted. Patient was noted to be 75% on room air and had an elevated white count of 13,000. Troponin was slightly elevated at 0.096 and CTA showed no PE, but scattered bilateral patchy airspace disease. Patient was initially placed on CPAP therapy with improvement in saturations. Patient was then transferred to the intensive care unit. Since being in the intensive care unit, patient has remained on nasal cannula oxygen. Patient reports subjective improvement in overall condition, but is still having significant shortness of breath with any exertion. Patient is not complaining of any chest pain, abdominal pain, nausea or vomiting. Patient is not reporting any sinus congestion, postnasal drip or productive cough. Patient denies any history of previous pulmonary pathology. Review of systems otherwise negative x10 systems. Past Medical History Past Medical History (Chronic Problems): Chronic Problems (Last Reviewed 05/07/18 @ 03:25 by Gutierrez Ron MD) Aortic stenosis (Chronic) H/O right coronary artery stent placement (Chronic ~07/10/16) PCI-HIRAL-RCA 3.5 x 12 mm Synergy 07/10/16 Atherosclerotic heart disease of [place] coronary artery without angina pectoris (Chronic) PCI-HIRAL-RCA 3.5 x 12 mm Synergy 07/10/16 HTN (hypertension) (Chronic) HLD (hyperlipidemia) (Chronic) Occlusion and stenosis of right carotid artery (Chronic) PAD (peripheral artery disease) (Chronic) Medical History: Medical History (Last Reviewed 05/07/18 @ 03:25 by Gutierrez Ron MD) Carotid stenosis, left (Acute) I65.22 Nonrheumatic mitral (valve) insufficiency (Acute) I34.0 Atherosclerotic heart disease of [place] coronary artery without angina pectoris (Chronic) I25.10 PCI-HIRAL-RCA 3.5 x 12 mm Synergy 07/10/16 HTN (hypertension) (Chronic) I10 HLD (hyperlipidemia) (Chronic) E78.5 Occlusion and stenosis of right carotid artery (Chronic) I65.21 PAD (peripheral artery disease) (Chronic) I73.9 History of hysterectomy Z90.710 Occlusion and stenosis of left carotid artery I65.22 Aortic valve disorders I35.9 Allergies rosuvastatin Adverse Reaction (Verified 05/06/18 18:26) myalgia Home Medications: Ambulatory Orders Medication Instructions Recorded Nitroglycerin [Nitrostat] 0.4 mg SUBLINGUAL Q5M PRN #20 tab 07/11/16 sertraline 50 mg tablet 50 mg PO QHS 03/09/17 Aspirin E.C. [Ecotrin] 81 mg PO DAILY@0800 04/28/18 Acetaminophen [Tylenol] 650 mg PO PRN PRN 05/06/18 Metoprolol Tartrate 12.5 mg PO BID 05/06/18 Simvastatin [Zocor] 40 mg PO DAILY 02/07/19 Surgical History: Surgical History (Last Reviewed 05/07/18 @ 03:26 by Gutierrez Ron MD) H/O right coronary artery stent placement (Chronic) Onset Date: ~07/10/16 Z95.5 PCI-HIRAL-RCA 3.5 x 12 mm Synergy 07/10/16 History of CEA (carotid endarterectomy) Z98.890 right CEA 2011 Surgical History: hysterectomy - For uterine prolapse, - - Right carotid endarterectomy Lives: With Family Smoking Status: Never smoker - *Family History Paternal Family History: Family History (Last Reviewed 05/07/18 @ 03:26 by Gutierrez Ron MD) Father CAD (coronary artery disease) Hypertension Sister CVA (cerebral vascular accident) Diabetes Arthritis Mother Cancer Daughter Thyroid disorder History Items: Heart Disease Maternal Family History: Family History (Last Reviewed 05/07/18 @ 03:26 by Gutierrez Ron MD) Father CAD (coronary artery disease) Hypertension Sister CVA (cerebral vascular accident) Diabetes Arthritis Mother Cancer Daughter Thyroid disorder History Items: Stroke Review of Systems Comment: See HPI Patient Problems: Active and Suspected Problems (Last Reviewed 05/07/18 @ 03:25 by Gutierrez Ron MD) Pneumonia (Acute) Sepsis (Acute) Respiratory failure (Acute) Elevated troponin (Acute) Hypoxemia (Acute) Community acquired pneumonia (Acute) Objective: CT scan of the chest was personally reviewed. This does have interstitial and alveolar infiltrates at the bases with peribronchial cuffing, left greater than right. Small effusions are noted. Echocardiogram (10/14): EF 65% with stage II diastolic dysfunction and mild aortic stenosis - Physical Exam General: Alert, Oriented x3, Cooperative, No apparent distress, - - No conversational dyspnea. Appears stated age. HEENT: Atraumatic, PERRLA, EOMI, Normocephalic, - - No scleral icterus or injection noted. Oral: Moist Mucosa, No Gingival or Mucosal Lesions/ Ulcerations Neck: Supple, No JVD, No Nodes, Trachea Midline, - - Left carotid sutures are clean, dry and intact. No induration appreciated. No ecchymosis or exudate appreciated. Lungs: No rhonchi, No wheeze, Diminished, Rales Cardiovascular: Regular rate, Regular Rhythm, Normal S1, Normal S2, Murmur - Grade 3 out of 6 systolic ejection murmur at the right sternal border, No rub noted, No Gallop Abdomen: Bowel Sounds Present, Soft, Non Tender, Non-Distended Extremities: No clubbing, No cyanosis, No edema, Capillary Refill Less than 3 Seconds Skin: No rashes, No breakdown, Incision - As mentioned above left carotid Musculoskeletal: No Tenderness to Palpation of Joints or Extremities Lymphatic: No Cervical, Supraclavicular, or Inguinal Adenopathy Neurological: Cranial nerves II-XII grossly intact, Neuro grossly intact, Motor Exam 5/5 strength throughout Psych/Mental Status: Alert and oriented to time, place, person, mood and affect Vital Signs Temp Pulse Resp BP Pulse Ox 37.2 C 68 16 116/44 L 98 05/07/18 04:00 05/07/18 06:00 05/07/18 06:00 05/07/18 06:00 05/07/18 06:00 Oxygen Flow Rate (L/min) 6 Oxygen Delivery Method Nasal Cannula Weight: 66.8 kg Body Mass Index (BMI) 28.7 Finger Stick Blood Glucose 164 Intake and Output for Last 24 Hours 05/05/18 05/06/18 05/07/18 23:59 23:59 23:59 Intake Total 466.7 / 466.7 Output Total 820 / 820 Balance -353.3 / -353.3 Microbiology Past 72 Hours 05/07/18 00:00 Legionella Antigen - Final Urine, Random 05/07/18 00:00 Streptococcus pneumoniae Antigen (M - Final Urine, Random Laboratory Tests Past 24 Hrs 05/06/18 05/06/18 05/06/18 19:09 19:09 19:09 WBC 13.9 H RBC 4.31 Hgb 12.3 Hct 37.6 MCV 87.2 MCH 28.5 MCHC 32.7 RDW 12.8 RDW Differential 41.0 Plt Count 178 MPV 10.3 Immature Gran % (Auto) 0.400 Neut % (Auto) 82.5 H Lymph % (Auto) 8.2 L Waldo % (Auto) 8.0 Eos % (Auto) 0.8 Baso % (Auto) 0.1 Absolute Neuts (auto) 11.5 H Absolute Lymphs (auto) 1.14 Total Counted Not Reportable PT 12.6 INR 0.9 APTT 25.0 Specimen Type Sample Site pH Bicarbonate Actual POC Total CO2 Base Excess O2 Saturation O2 % ABG pCO2 ABG pO2 David Test Respiration Rate O2 Delivery Device EPAP IPAP Sodium 138 Potassium 4.1 Chloride 102 Carbon Dioxide 28.0 Anion Gap 8 BUN 18 Creatinine 0.69 Estim Creat Clear Calc 46.16 Est GFR (MDRD) Af Amer 104 Est GFR (MDRD) Non-Af 86 BUN/Creatinine Ratio 26.0 H Glucose 224 H Lactic Acid Calcium 8.3 L Troponin I 0.096 H MRSA (PCR) 05/06/18 05/06/18 05/06/18 20:45 20:59 22:34 WBC RBC Hgb Hct MCV MCH MCHC RDW RDW Differential Plt Count MPV Immature Gran % (Auto) Neut % (Auto) Lymph % (Auto) Waldo % (Auto) Eos % (Auto) Baso % (Auto) Absolute Neuts (auto) Absolute Lymphs (auto) Total Counted PT INR APTT Specimen Type ART Sample Site L Radial pH 7.46 H Bicarbonate Actual 24.2 POC Total CO2 25 Base Excess 0 O2 Saturation 91 L O2 % 50 ABG pCO2 34.2 L ABG pO2 58 L David Test POS Respiration Rate 27 O2 Delivery Device Bi / C PAP EPAP 5 IPAP 5 Sodium Potassium Chloride Carbon Dioxide Anion Gap BUN Creatinine Estim Creat Clear Calc Est GFR (MDRD) Af Amer Est GFR (MDRD) Non-Af BUN/Creatinine Ratio Glucose Lactic Acid 1.0 Calcium Troponin I 0.758 H* MRSA (PCR) 05/06/18 05/07/18 05/07/18 22:34 01:00 04:55 WBC 9.8 RBC 4.03 L Hgb 11.7 L Hct 35.1 L MCV 87.1 MCH 29.0 MCHC 33.3 RDW 12.4 RDW Differential 38.7 Plt Count 177 MPV 10.6 Immature Gran % (Auto) 0.100 Neut % (Auto) 62.1 Lymph % (Auto) 24.9 Waldo % (Auto) 11.7 H Eos % (Auto) 1.0 Baso % (Auto) 0.2 Absolute Neuts (auto) 6.1 Absolute Lymphs (auto) 2.45 Total Counted Not Reportable PT INR APTT Specimen Type Sample Site pH Bicarbonate Actual POC Total CO2 Base Excess O2 Saturation O2 % ABG pCO2 ABG pO2 David Test Respiration Rate O2 Delivery Device EPAP IPAP Sodium Potassium Chloride Carbon Dioxide Anion Gap BUN Creatinine Estim Creat Clear Calc Est GFR (MDRD) Af Amer Est GFR (MDRD) Non-Af BUN/Creatinine Ratio Glucose Lactic Acid Calcium Troponin I 1.410 H* MRSA (PCR) Negative 05/07/18 04:55 WBC RBC Hgb Hct MCV MCH MCHC RDW RDW Differential Plt Count MPV Immature Gran % (Auto) Neut % (Auto) Lymph % (Auto) Waldo % (Auto) Eos % (Auto) Baso % (Auto) Absolute Neuts (auto) Absolute Lymphs (auto) Total Counted PT INR APTT Specimen Type Sample Site pH Bicarbonate Actual POC Total CO2 Base Excess O2 Saturation O2 % ABG pCO2 ABG pO2 David Test Respiration Rate O2 Delivery Device EPAP IPAP Sodium Potassium Chloride Carbon Dioxide Anion Gap BUN Creatinine Estim Creat Clear Calc Est GFR (MDRD) Af Amer Est GFR (MDRD) Non-Af BUN/Creatinine Ratio Glucose Lactic Acid Calcium Troponin I 1.940 H* MRSA (PCR) Clinical Impression(s) from Imaging Studies Chest CTA 05/06/18 18:58 IMPRESSION: 1. No evidence of pulmonary embolism or aortic dissection. 2. Left upper lobe basilar segment airspace disease with peribronchial edema versus inflammation. Bilateral basilar peribronchial edema versus inflammation with scattered early patchy airspace disease and small bilateral effusions. Electronically Signed: Deshawn Tellez DO at 20:16 EST , Service support , Assessment/Plan Active and Suspected Problems (Last Reviewed 05/07/18 @ 03:25 by Gutierrez Ron MD) Pneumonia (Acute) Sepsis (Acute) Respiratory failure (Acute) Elevated troponin (Acute) Hypoxemia (Acute) Community acquired pneumonia (Acute) RECOMMENDATIONS: 1. Administer Lasix therapy 2. Defer to cardiology on anticoagulation 3. Wean oxygen as tolerated 4. Okay to keep empiric antibiotics for 48 hours 5. Continue to cycle troponins until peaked IMPRESSIONS: 1. Acute hypoxic respiratory failure secondary to probable acute on chronic diastolic congestive heart failure Patient is currently being treated for pneumonia, but was of her usual health yesterday morning. Elevation of white blood cell count may be secondary to stress response. Patient does have blood cultures pending. Empiric use of antibiotics would be appropriate for now, but vancomycin can likely be discontinued given negative MRSA. Review of the CT from my perspective is more consistent with pulmonary edema with dependent interstitial and alveolar infiltrates. Patient will be given Lasix therapy. Wean oxygen as tolerated. Cardiology has been consulted. 2. Possible type II non-ST elevation [place] She does have an extensive cardiac history and sees Dr. Dawson as an outpatient. Patient is on aspirin and statin therapy. Cardiology has been consulted. Other differential is supply demand mismatch secondary to significant hypoxemia on presentation. Await cardiology recommendations. We will not initiate a heparin drip at this time until cardiology has had a chance to evaluate the patient. Okay to continue with metoprolol. Cardene is likely not necessary given current blood pressures. 3. Left carotid endarterectomy postop day #1 Patient does not appear to have any complications of surgery at this time. No focal neurologic deficits, ecchymosis at the incision site or exudate is appreciated. Surgery is following. 4. Hypertension/hyperlipidemia/peripheral artery disease/advanced age/aortic stenosis Complicates care, management, recovery and prognosis. Okay to continue with baseline medications from my perspective. Code Visit Inpatient E&M: 50758 Init Hosp L3
[2018-05-07] MEDS: Ipratropium/Albuterol Sulfate 3 ML AMPUL.NEB INHALATION ×4 (06:59→19:05)
[2018-05-07] MEDS: Metoprolol Tartrate 25 MG Tablet 12.5 MG PO ×2 (09:41→21:47)
[2018-05-07] MEDS: Aspirin E.C. 81 MG Tablet PO (09:41)
[2018-05-07] MEDS: Heparin Injection (Vial) 5,000 UNIT/ML VIAL 5000 UNIT SC ×2 (09:42→21:48)
--- NOTE | 2018-05-07 09:52 | PCM.CONS.C ---
Problem List (1) Elevated troponin Status: Acute (2) Aortic stenosis Status: Chronic Qualifiers: Cardiac valve disease etiology: nonrheumatic Qualified Code(s): I35.0 - Nonrheumatic aortic (valve) stenosis (3) H/O right coronary artery stent placement Status: Chronic Comment: PCI-HIRAL-RCA 3.5 x 12 mm Synergy 07/10/16 (4) Atherosclerotic heart disease of [place] coronary artery without angina pectoris Status: Chronic Qualifiers: [place] vs. transplanted heart: [place] heart Qualified Code(s): I25.10 - Atherosclerotic heart disease of [place] coronary artery without angina pectoris Comment: PCI-HIRAL-RCA 3.5 x 12 mm Synergy 07/10/16 (5) HTN (hypertension) Status: Chronic Qualifiers: Hypertension type: essential hypertension Qualified Code(s): I10 - Essential (primary) hypertension (6) HLD (hyperlipidemia) Status: Chronic Qualifiers: Hyperlipidemia type: pure hypercholesterolemia Qualified Code(s): E78.00 - Pure hypercholesterolemia, unspecified; E78.0 - Pure hypercholesterolemia (7) PAD (peripheral artery disease) Status: Chronic Reason for Consult Date of Consultation: 05/07/18 Reason for Consultation: Coronary artery disease, congestive heart failure, non-STEMI, hypertension, hyperlipidemia, aortic stenosis History of Present Illness: The patient is a 83 year old F, known to me with a history of hypertension, hypercholesterolemia, mild aortic stenosis, coronary artery disease status post angioplasty and drug-eluting stenting to the mid and proximal RCA on 07/14/16. At that time her heart catheterization demonstrated small vessels and diffusely diseased mid and distal LAD and a fairly tortuous vessel, as well as a possibly significant proximal left circumflex stenosis. This was superimposed on normal LV function. No additional PCI of the LAD was recommended as the patient's nuclear stress test had no evidence of anterior ischemia. Patient has been seeing us in the office and is been asymptomatic. Patient underwent elective carotid endarterectomy by Dr. Hairnder Barreto on 05/05/18, and subsequently sent home on . Soon after arrival home, the patient developed acute onset shortness of breath, dyspnea, orthopnea, and respiratory distress. She sought medical attention at [facility] ER where a CT scan was performed with contrast which demonstrated no evidence of pulmonary embolism, but mild bilateral pleural effusions, and pulmonary edema. The patient was given IV Lasix and diuresed approximately 1 L and her symptoms markedly improved. Her EKG demonstrated normal sinus rhythm with subtle inferior lateral nonspecific ST segment changes, but no acute ST elevation or deep ST depression. Her initial troponin was 0.096, and then increased to 1.94. She has remained chest pain-free throughout. It was also suspected the patient may have pneumonia as well and pulmonary consultation was obtained. Patient reports that she is been medically compliant at home. She denied any exertional chest pain, angina, shortness of breath at home prior to her CEA. Her Plavix was held approximately 3 days prior to her CEA and had yet to be restarted. The patient's left carotid endarterectomy site is clean/dry/intact without evidence of thrills, bruits or hematoma. Patient is resting comfortably with family at bedside.] Past Medical History Allergies/Adverse Reactions: Allergies rosuvastatin Adverse Reaction (Verified 05/06/18 18:26) myalgia Home Medications: Ambulatory Orders Medication Instructions Recorded Nitroglycerin [Nitrostat] 0.4 mg SUBLINGUAL Q5M PRN #20 tab 07/11/16 sertraline 50 mg tablet 50 mg PO QHS 03/09/17 Aspirin E.C. [Ecotrin] 81 mg PO DAILY@0800 04/28/18 Acetaminophen [Tylenol] 650 mg PO PRN PRN 05/06/18 Metoprolol Tartrate 12.5 mg PO BID 05/06/18 Simvastatin [Zocor] 40 mg PO DAILY 05/06/18 Past Medical History (Chronic Problems): Chronic Problems (Last Reviewed 05/07/18 @ 03:25 by Gutierrez Ron MD) Aortic stenosis (Chronic) H/O right coronary artery stent placement (Chronic ~07/10/16) PCI-HIRAL-RCA 3.5 x 12 mm Synergy 07/10/16 Atherosclerotic heart disease of [place] coronary artery without angina pectoris (Chronic) PCI-HIRAL-RCA 3.5 x 12 mm Synergy 07/10/16 HTN (hypertension) (Chronic) HLD (hyperlipidemia) (Chronic) Occlusion and stenosis of right carotid artery (Chronic) PAD (peripheral artery disease) (Chronic) Surgical History: hysterectomy - For uterine prolapse, - - Right carotid endarterectomy - *Family History Paternal Family History: Family History (Last Reviewed 05/07/18 @ 03:26 by Gutierrez Ron MD) Father CAD (coronary artery disease) Hypertension Sister CVA (cerebral vascular accident) Diabetes Arthritis Mother Cancer Daughter Thyroid disorder History Items: Heart Disease Maternal Family History: Family History (Last Reviewed 05/07/18 @ 03:26 by Gutierrez Ron MD) Father CAD (coronary artery disease) Hypertension Sister CVA (cerebral vascular accident) Diabetes Arthritis Mother Cancer Daughter Thyroid disorder History Items: Stroke Lives: With Family Smoking Status: Never smoker Review of Systems - Review of Systems General: Denies: Fever, Night Sweats, Fatigue Cardiovascular: Reports: Shortness of Breath, Shortness of Breath at Rest, Shortness of Breath with Exertion, Orthopnea, PND. Denies: Chest Discomfort, Peripheral Edema, Palpitations, Lightheadedness, Dizziness, Near Syncope, Syncope Respiratory: Denies: Cough, Sputum Production, Hemoptysis Gastrointestinal: Denies: Hematemesis, Hematochezia, Melena Genitourinary: Denies: Dysuria, Hematuria Skin: Denies: Rash Subjectve: Patient resting comfortably, answers questions appropriately, alert and oriented x3. Objective: Vital Signs Temp Pulse Resp BP Pulse Ox 99.3 F H 76 21 H 95/53 L 96 05/07/18 08:00 05/07/18 09:41 05/07/18 08:00 05/07/18 08:00 05/07/18 08:00 Oxygen Flow Rate (L/min) 6 Oxygen Delivery Method Nasal Cannula Weight: 147 lb 4.301 oz Body Mass Index (BMI) 28.7 Finger Stick Blood Glucose 164 Intake and Output for Last 24 Hours 05/05/18 05/06/18 05/07/18 23:59 23:59 23:59 Intake Total 466.7 / 466.7 Output Total 820 / 820 Balance -353.3 / -353.3 General: Awake, Alert, Oriented x 3 HEENT: PERRL, EOMI, Sclera Non Icteric Neck: Supple, Good ROM, No Lymph Node Enlargement Lungs: Clear to auscultation Cardiovascular: Regular Rhythm, Normal S1, Normal S2, No Rubs, No Gallops Murmur Murmur: Grade 2/6, Crescendo-Decrescendo Vascular: No Carotid Bruits, Normal Femoral Pulses, Normal Radial Pulses, Normal Dorsalis Pedal Pulse, Normal Posterior Tibial Pulses Abdomen: Bowel Sounds Present, Soft, Non Tender, No HSM, No Organomegaly Extremities: No Cyanosis, No Clubbing, No edema Neurological: No Focal Motor or Sensory Deficit 05/06/18 19:09: WBC 13.9 H, RBC 4.31, Hgb 12.3, Hct 37.6, MCV 87.2, MCH 28.5, MCHC 32.7, RDW 12.8, RDW Differential 41.0, Plt Count 178, MPV 10.3, Immature Gran % (Auto) 0.400, Neut % (Auto) 82.5 H, Lymph % (Auto) 8.2 L, [place]once % (Auto) 8.0, Eos % (Auto) 0.8, Baso % (Auto) 0.1, Absolute Neuts (auto) 11.5 H, Total Counted Not Reportable 05/06/18 19:09: Sodium 138, Potassium 4.1, Chloride 102, Carbon Dioxide 28.0, Anion Gap 8, BUN 18, Creatinine 0.69, Est GFR (MDRD) Af Amer 104, Est GFR (MDRD) Non-Af 86, BUN/Creatinine Ratio 26.0 H, Glucose 224 H, Calcium 8.3 L, Troponin I 0.096 H 05/06/18 19:09: PT 12.6, INR 0.9, APTT 25.0 05/06/18 20:45: Lactic Acid 1.0 05/06/18 20:59: pH 7.46 H, Bicarbonate Actual 24.2, POC Total CO2 25, Base Excess 0, O2 Saturation 91 L, ABG pCO2 34.2 L, ABG pO2 58 L, David Test POS 05/06/18 22:34: Troponin I 0.758 H* 05/07/18 01:00: Troponin I 1.410 H* 05/07/18 04:55: WBC 9.8, RBC 4.03 L, Hgb 11.7 L, Hct 35.1 L, MCV 87.1, MCH 29.0, MCHC 33.3, RDW 12.4, RDW Differential 38.7, Plt Count 177, MPV 10.6, Immature Gran % (Auto) 0.100, Neut % (Auto) 62.1, Lymph % (Auto) 24.9, [place]once % (Auto) 11.7 H, Eos % (Auto) 1.0, Baso % (Auto) 0.2, Absolute Neuts (auto) 6.1, Total Counted Not Reportable 05/07/18 04:55: Troponin I 1.940 H* Rhythm: Telemetry negative. EKG: As above ECHO: Pending Stress Test: Cardiac Cath: PCI: CT Surgery: Holter monitor: EPS: PPM: CXR: Chest CT Scan: Assessment/Plan 1. Coronary artery disease: Patient presents with acute respiratory distress on the day of discharge from a elective left carotid endarterectomy, in which her Plavix was held 3 days prior. I do not see that the patient had a cardiac risk stratification prior to her carotid endarterectomy despite her extensive coronary artery disease. Patient is responded well to IV diuretic therapy. Her congestive heart failure may have been a result of IV fluid administration during her carotid endarterectomy, as well as her mild aortic stenosis which may have contributed to her symptoms and elevated LV end-diastolic pressure. In addition she has significant remaining LAD, diagonal, and left circumflex disease that may have also contributed to her congestive heart failure and mild troponin release. At this point I would recommend holding off on repeat catheterization until she has had several more days of healing of her left carotid endarterectomy in case she requires high-dose heparin therapy and ongoing Plavix going forward. I recommended that she start Plavix 75 mg p.o. daily over the next few days. In addition the patient recently underwent a CTA of her chest to evaluate for pulmonary embolism which was negative, I would like to hold off for several days until her IV contrast dye load has dissipated. In the meantime I recommended a repeat echocardiogram to evaluate her LV function, valvular status, and pulmonary pressures. Given that she continue baby aspirin, subcu heparin for DVT prophylaxis, I would not recommend therapeutic doses of subcu Lovenox or IV heparin given her recent carotid endarterectomy. Recommend continuing baby aspirin, Plavix 75 mg daily, Lopressor 12.5 mg p.o. twice daily, as well as Lasix 40 mg p.o. daily. Once the patient has demonstrated that she is able to tolerate dual antiplatelet therapy over the weekend, and after allowing her IV contrast dye load to dissipate, would recommend repeat catheterization on Thursday morning 05/10/18. 2. Aortic stenosis: Repeat echo is pending. Her aortic stenosis was mild in June 2016. She also had 1+ aortic insufficiency. 3. Hypercholesterolemia: Unfortunately the patient is unable to tolerate statins. 4. Thank you very much for the opportunity to precipitate in the cardiac care of your patient. Consultation time took place between 830 and 9 AM. All questions answered of the patient and her family. Code Visit Inpatient E&M: 06522 Init Hosp L2
--- NOTE | 2018-05-07 09:57 | CON.PCM_ITS ---
Problem List (1) Elevated troponin Status: Acute (2) Aortic stenosis Status: Chronic Qualifiers: Cardiac valve disease etiology: nonrheumatic Qualified Code(s): I35.0 - Nonrheumatic aortic (valve) stenosis (3) H/O right coronary artery stent placement Status: Chronic Comment: PCI-HIRAL-RCA 3.5 x 12 mm Synergy 07/10/16 (4) Atherosclerotic heart disease of [place] coronary artery without angina pectoris Status: Chronic Qualifiers: [place] vs. transplanted heart: [place] heart Qualified Code(s): I25.10 - Atherosclerotic heart disease of [place] coronary artery without angina pectoris Comment: PCI-HIRAL-RCA 3.5 x 12 mm Synergy 07/10/16 (5) HTN (hypertension) Status: Chronic Qualifiers: Hypertension type: essential hypertension Qualified Code(s): I10 - Essential (primary) hypertension (6) HLD (hyperlipidemia) Status: Chronic Qualifiers: Hyperlipidemia type: pure hypercholesterolemia Qualified Code(s): E78.00 - Pure hypercholesterolemia, unspecified; E78.0 - Pure hypercholesterolemia (7) PAD (peripheral artery disease) Status: Chronic Reason for Consult Date of Consultation: 05/07/18 Reason for Consultation: Coronary artery disease, congestive heart failure, non- STEMI, hypertension, hyperlipidemia, aortic stenosis History of Present Illness: The patient is a 83 year old F, known to me with a history of hypertension, hypercholesterolemia, mild aortic stenosis, coronary artery disease status post angioplasty and drug-eluting stenting to the mid and proximal RCA on 07/14/16. At that time her heart catheterization demonstrated small vessels and diffusely diseased mid and distal LAD and a fairly tortuous vessel, as well as a possibly significant proximal left circumflex stenosis. This was superimposed on normal LV function. No additional PCI of the LAD was recommended as the patient's nuclear stress test had no evidence of anterior ischemia. Patient has been seeing us in the office and is been asymptomatic. Patient underwent elective carotid endarterectomy by Dr. Harinder Barreto on 05/05/18, and subsequently sent home on . Soon after arrival home, the patient developed acute onset shortness of breath, dyspnea, orthopnea, and respiratory distress. She sought medical attention at [facility] where a CT scan was performed with contrast which demonstrated no evidence of pulmonary embolism, but mild bilateral pleural effusions, and pulmonary edema. The patient was given IV Lasix and diuresed approximately 1 L and her symptoms markedly improved. Her EKG demonstrated normal sinus rhythm with subtle inferior lateral nonspecific ST segment changes, but no acute ST elevation or deep ST depression. Her initial troponin was 0.096, and then increased to 1.94. She has remained chest pain-free throughout. It was also suspected the patient may have pneumonia as well and pulmonary consultation was obtained. Patient reports that she is been medically compliant at home. She denied any exertional chest pain, angina, shortness of breath at home prior to her CEA. Her Plavix was held approximately 3 days prior to her CEA and had yet to be restarted. The patient's left carotid endarterectomy site is clean/dry/intact without evidence of thrills, bruits or hematoma. Patient is resting comfortably with family at bedside.] Past Medical History Allergies/Adverse Reactions: Allergies rosuvastatin Adverse Reaction (Verified 05/06/18 18:26) myalgia Home Medications: Ambulatory Orders Medication Instructions Recorded Nitroglycerin [Nitrostat] 0.4 mg SUBLINGUAL Q5M PRN #20 tab 07/11/16 sertraline 50 mg tablet 50 mg PO QHS 03/09/17 Aspirin E.C. [Ecotrin] 81 mg PO DAILY@0800 04/28/18 Acetaminophen [Tylenol] 650 mg PO PRN PRN 05/06/18 Metoprolol Tartrate 12.5 mg PO BID 05/06/18 Simvastatin [Zocor] 40 mg PO DAILY 05/06/18 Past Medical History (Chronic Problems): Chronic Problems (Last Reviewed 05/07/18 @ 03:25 by Gutierrez Ron MD) Aortic stenosis (Chronic) H/O right coronary artery stent placement (Chronic ~07/10/16) PCI-HIRAL-RCA 3.5 x 12 mm Synergy 07/10/16 Atherosclerotic heart disease of [place] coronary artery without angina pectoris (Chronic) PCI-HIRAL-RCA 3.5 x 12 mm Synergy 07/10/16 HTN (hypertension) (Chronic) HLD (hyperlipidemia) (Chronic) Occlusion and stenosis of right carotid artery (Chronic) PAD (peripheral artery disease) (Chronic) Surgical History: hysterectomy - For uterine prolapse, - - Right carotid endarterectomy - *Family History Paternal Family History: Family History (Last Reviewed 05/07/18 @ 03:26 by Gutierrez Ron MD) Father CAD (coronary artery disease) Hypertension Sister CVA (cerebral vascular accident) Diabetes Arthritis Mother Cancer Daughter Thyroid disorder History Items: Heart Disease Maternal Family History: Family History (Last Reviewed 05/07/18 @ 03:26 by Gutierrez Ron MD) Father CAD (coronary artery disease) Hypertension Sister CVA (cerebral vascular accident) Diabetes Arthritis Mother Cancer Daughter Thyroid disorder History Items: Stroke Lives: With Family Smoking Status: Never smoker Review of Systems - Review of Systems General: Denies: Fever, Night Sweats, Fatigue Cardiovascular: Reports: Shortness of Breath, Shortness of Breath at Rest, Shortness of Breath with Exertion, Orthopnea, PND. Denies: Chest Discomfort, Peripheral Edema, Palpitations, Lightheadedness, Dizziness, Near Syncope, Syncope Respiratory: Denies: Cough, Sputum Production, Hemoptysis Gastrointestinal: Denies: Hematemesis, Hematochezia, Melena Genitourinary: Denies: Dysuria, Hematuria Skin: Denies: Rash Subjectve: Patient resting comfortably, answers questions appropriately, alert and oriented x3. Objective: Vital Signs Temp Pulse Resp BP Pulse Ox 99.3 F H 76 21 H 95/53 L 96 05/07/18 08:00 05/07/18 09:41 05/07/18 08:00 05/07/18 08:00 05/07/18 08:00 Oxygen Flow Rate (L/min) 6 Oxygen Delivery Method Nasal Cannula Weight: 147 lb 4.301 oz Body Mass Index (BMI) 28.7 Finger Stick Blood Glucose 164 Intake and Output for Last 24 Hours 05/05/18 05/06/18 05/07/18 23:59 23:59 23:59 Intake Total 466.7 / 466.7 Output Total 820 / 820 Balance -353.3 / -353.3 General: Awake, Alert, Oriented x 3 HEENT: PERRL, EOMI, Sclera Non Icteric Neck: Supple, Good ROM, No Lymph Node Enlargement Lungs: Clear to auscultation Cardiovascular: Regular Rhythm, Normal S1, Normal S2, No Rubs, No Gallops Murmur Murmur: Grade 2/6, Crescendo-Decrescendo Vascular: No Carotid Bruits, Normal Femoral Pulses, Normal Radial Pulses, Normal Dorsalis Pedal Pulse, Normal Posterior Tibial Pulses Abdomen: Bowel Sounds Present, Soft, Non Tender, No HSM, No Organomegaly Extremities: No Cyanosis, No Clubbing, No edema Neurological: No Focal Motor or Sensory Deficit 05/06/18 19:09: WBC 13.9 H, RBC 4.31, Hgb 12.3, Hct 37.6, MCV 87.2, MCH 28.5, MCHC 32.7, RDW 12.8, RDW Differential 41.0, Plt Count 178, MPV 10.3, Immature Gran % (Auto) 0.400, Neut % (Auto) 82.5 H, Lymph % (Auto) 8.2 L, [place] % (Auto) 8.0, Eos % (Auto) 0.8, Baso % (Auto) 0.1, Absolute Neuts (auto) 11.5 H, Total Counted Not Reportable 05/06/18 19:09: Sodium 138, Potassium 4.1, Chloride 102, Carbon Dioxide 28.0, Anion Gap 8, BUN 18, Creatinine 0.69, Est GFR (MDRD) Af Amer 104, Est GFR (MDRD) Non-Af 86, BUN/Creatinine Ratio 26.0 H, Glucose 224 H, Calcium 8.3 L, Troponin I 0.096 H 05/06/18 19:09: PT 12.6, INR 0.9, APTT 25.0 05/06/18 20:45: Lactic Acid 1.0 05/06/18 20:59: pH 7.46 H, Bicarbonate Actual 24.2, POC Total CO2 25, Base Excess 0, O2 Saturation 91 L, ABG pCO2 34.2 L, ABG pO2 58 L, David Test POS 05/06/18 22:34: Troponin I 0.758 H* 05/07/18 01:00: Troponin I 1.410 H* 05/07/18 04:55: WBC 9.8, RBC 4.03 L, Hgb 11.7 L, Hct 35.1 L, MCV 87.1, MCH 29.0, MCHC 33.3, RDW 12.4, RDW Differential 38.7, Plt Count 177, MPV 10.6, Immature Gran % (Auto) 0.100, Neut % (Auto) 62.1, Lymph % (Auto) 24.9, [place] % (Auto) 11.7 H, Eos % (Auto) 1.0, Baso % (Auto) 0.2, Absolute Neuts (auto) 6.1, Total Coun scar Not Reportable 05/07/18 04:55: Troponin I 1.940 H* Rhythm: Telemetry negative. EKG: As above ECHO: Pending Stress Test: Cardiac Cath: PCI: CT Surgery: Holter monitor: EPS: PPM: CXR: Chest CT Scan: Assessment/Plan 1. Coronary artery disease: Patient presents with acute respiratory distress on the day of discharge from a elective left carotid endarterectomy, in which her Plavix was held 3 days prior. I do not see that the patient had a cardiac risk stratification prior to her carotid endarterectomy despite her extensive coronary artery disease. Patient is responded well to IV diuretic therapy. Her congestive heart failure may have been a result of IV fluid administration during her carotid endarte rectomy, as well as her mild aortic stenosis which may have contributed to her symptoms and elevated LV end-diastolic pressure. In addition she has significant remaining LAD, diagonal, and left circumflex disease that may have also contributed to her congestive heart failure and mild troponin release. At this point I would recommend holding off on repeat catheterization until she has had several more days of healing of her left carotid endarterectomy in case she requires high-dose heparin therapy and ongoing Plavix going forward. I recommended that she start Plavix 75 mg p.o. daily over the next few days. In addition the patient recently underwent a CTA of her chest to evaluate for pulmonary embolism which was negative, I would like to hold off for several days until her IV contrast dye load has dissipated. In the meantime I recommended a repeat echocardiogram to evaluate her LV function, valvular status, and pulmonary pressures. Given that she continue baby aspirin, subcu heparin for DVT prophylaxis, I would not recommend therapeutic doses of subcu Lovenox or IV heparin given her recent carotid endarterectomy. Recommend continuing baby aspirin, Plavix 75 mg daily, Lopressor 12.5 mg p.o. twice daily, as well as Lasix 40 mg p.o. daily. Once the patient has demonstrated that she is able to tolerate dual antiplatelet therapy over the weekend, and after allowing her IV contrast dye load to dissipate, would recommend repeat catheterization on Thursday morning 05/10/18. 2. Aortic stenosis: Repeat echo is pending. Her aortic stenosis was mild in June 2016. She also had 1+ aortic insufficiency. 3. Hypercholesterolemia: Unfortunately the patient is unable to tolerate statins. 4. Thank you very much for the opportunity to precipitate in the cardiac care of your patient. Consultation time took place between 830 and 9 AM. All questions answered of the patient and her family. Code Visit Inpatient E&M: 92485 Init Hosp L2
--- NOTE | 2018-05-07 10:28 | ECHOCS_ITS ---
Reason For Study: CAD Procedure This was a 2D Doppler, Color Flow transthoracic echocardiogram. Exam performed portable in ICU/CCU. Left Ventricle Normal size and thickness. The estimated ejection fraction is 65 %. Stage 1 diastolic dysfunction. No regional wall motion abnormalities noted. Right Ventricle Normal size and thickness. Normal systolic function. Atria Normal left atrium. Normal right atrium. Normal atrial septum. Mitral Valve Mild diffuse mitral valve thickening. Severe mitral annular calcification extending into the posterior leaflet. Trivial mitral valve insufficiency. Tricuspid Valve Normal tricuspid valve. Mild (1+) tricuspid valve insufficiency. Right ventricular systolic pressure estimated to be 34 mmHg. Aortic Valve Trisinus/trileaflet aortic valve. Moderate focal aortic valve thickening. Moderate restriction of the aortic valve. Mild aortic stenosis. Peak aortic valve gradient 25 mmHg. Mean aortic valve gradient 13 mmHg. Mild (1+) aortic valve insufficiency. Pulmonic Valve Normal pulmonic valve. Great Vessels Normal aortic root. Mild atherosclerosis of the aortic arch. Normal inferior vena cava. Inferior vena cava collapse with sniff. Pericardium/Pleural No pericardial effusion. MMode/2D Measurements & Calculations LVIDd: 4.1 cm IVSd: 1.1 cm LVOT diam: 1.9 cm LVIDs: 2.5 cm LVPWd: 1.1 cm LVOT area: 2.8 cm2 RVDd: 3.0 cm FS: 38.4 % Ao root diam: 2.6 cm LAV(MOD-bp): 44.4 ml EDV(MOD-sp4): 42.6 ml LAV(MOD-bp) Indexed: 27.1 ml/m2 ESV(MOD-sp4): 18.3 ml LAV(MOD-sp2): 37.7 ml EF(MOD-sp4): 57.0 % LAV(MOD-sp4): 46.2 ml SV(MOD-sp4): 24.3 ml LA dimension(2D): 3.2 cm LA A4 area: 18.3 cm2 RA A4 area: 15.1 cm2 Doppler Measurements & Calculations MV E max lorne: 92.3 cm/sec Lat Peak E' Lorne: 4.5 cm/sec Med Peak E' Lorne: 3.6 cm/sec MV A max lorne: 129.5 cm/sec E/E' lat: 20.7 E/E' med: 25.5 MV E/A: 0.71 Ao V2 max: 251.5 cm/sec AI max lorne: 304.4 cm/sec LV V1 max: 133.6 cm/sec Ao max P.3 mmHg AI max P.1 mmHg LV V1 max P.2 mmHg Ao V2 mean: 169.2 cm/sec AI dec slope: 189.2 cm/sec2 LV V1 mean P.4 mmHg Ao mean P.9 mmHg AI P1/2t: 471.3 msec LV V1 mean: 85.9 cm/sec Ao V2 VTI: 50.6 cm LV V1 VTI: 27.0 cm LIDIA(I,D): 1.5 cm2 LIDIA(V,D): 1.5 cm2 SV(LVOT): 77.0 ml PA V2 max: 105.7 cm/sec TR max lorne: 268.0 cm/sec TR max P.7 mmHg Interpretation Summary The estimated ejection fraction is 65 %. Stage 1 diastolic dysfunction. Mild (1+) tricuspid valve insufficiency. Right ventricular systolic pressure estimated to be 34 mmHg. Mild aortic stenosis. Mild (1+) aortic valve insufficiency. In comparison to echo report dated 10/14/2017, no appreciable changes noted. Ordering Physician: Dontrell Dawson Referring Physician: Gutierrez Ron Performed By: Maral Jones RDCS
--- NOTE | 2018-05-07 11:29 | CASEMGMT ---
FR[facility]IS[facility] CM Readmit note Previous Admission: 05/05/18-16/10/18 DX: scheduled L CEA DC Disposition: Home Readmission date: 05/06/18 Presentation: soon after arrival home from [facility], had acute onset of shortness of breath, respiratory distress. CT showed mild traci pleural effusions and pulmonary edema. Given IV Lasix. EKG showed subtle inferior lateral nonspecific ST segment changes, no acute ST elevation or depression. Cardiology consult. WBC 13.9. DC PLAN: Intro role of CM to patient and her family. Pt plans to return home home with family support. No new dc needs identified at this time. Pt remains in ICU at this time. Freddy MENDEZN RN ACM
--- NOTE | 2018-05-07 12:09 | CASEMGMT ---
SW spoke w/pt, she states she has LW/POA, but has not brought them here. SW asked pt to bring them in if able at some point in the future. MARILUZ Kelly, [employer]
--- NOTE | 2018-05-07 16:31 | PCM.PN.BLA ---
Progress Note Addn. note: Preop clearance had been obtained from Dr Dawson and I have transmitted that note back to him for refresh and review. Godfrey
[2018-05-07 21:48] LABS: Bedside Glucose 292 mg/dL (70-110)
[2018-05-07] MEDS: Sertraline 50 MG Tablet PO (21:48)
[2018-05-07] MEDS: Insulin Lispro 100 UNIT/ML INSULN.PEN SC (21:48)
[2018-05-08] VITALS (18 sets, daily range): BP systolic 102–165; BP diastolic 42–88; PULSE 64–89; RESP 14–18; TEMP 36.8–37.1; O2SAT 88–96
[2018-05-08] MEDS: Labetalol 20 MG/4 ML Vial 10 MG IV (04:35)
[2018-05-08] MEDS: 0.9% NaCl Peripheral Flush Adult/Peds IV (04:35)
[2018-05-08 07:22] LABS: Bedside Glucose 159 mg/dL (70-110)
[2018-05-08 07:28] LABS: Anion Gap 10 (5-15); BUN 10 mg/dL (7-18); BUN/Creat Ratio 16.8 RATIO (10-20); Calcium,Total 8.4 mg/dL (8.5-10.1); Chloride 103 mmol/L (98-107); EST Glomerular Filtration Rate 102 mL/min (>60); Est Glom Filt Rate - Afr Amer 124 mL/min (>60); Estimated Creatinine Clearance 30.62 ml/min; Glucose 183 mg/dL (74-106); Potassium 3.8 mmol/L (3.5-5.1); Sodium Level 142 mmol/L (136-145)
--- NOTE | 2018-05-08 07:39 | PCM.PN.INT ---
Subjective: Patient did well overnight. Patient states she feels close to her baseline at this time, but has not ambulated yet this morning. Patient denies any chest pain, neck pain, abdominal pain, nausea or vomiting. General: Alert, Oriented x3, Cooperative, No apparent distress, - - Appears stated age. Speaking in full sentences. HEENT: Atraumatic, PERRLA, EOMI, Normocephalic, - - No scleral icterus or injection noted. Oral: Moist Mucosa, No Gingival or Mucosal Lesions/ Ulcerations, - - Edentulous Neck: Supple, No JVD, No Nodes, Trachea Midline Lungs: No rhonchi, No wheeze, No rales, Diminished, - - Symmetric expansion. No dullness to percussion. Cardiovascular: Regular rate, Normal S1, Normal S2, Murmur, No rub noted, No Gallop Abdomen: Bowel Sounds Present, Soft, Non Tender, Non-Distended Extremities: No clubbing, No cyanosis, No edema, Capillary Refill Less than 3 Seconds Skin: No rashes, No breakdown Musculoskeletal: No Tenderness to Palpation of Joints or Extremities Lymphatic: No Cervical, Supraclavicular, or Inguinal Adenopathy Neurological: Cranial nerves II-XII grossly intact, Neuro grossly intact, Motor Exam 5/5 strength throughout Psych/Mental Status: Alert and oriented to time, place, person, mood and affect Vital Signs Temp Pulse Resp BP Pulse Ox 36.8 C 73 14 165/88 H 95 05/08/18 03:38 05/08/18 06:33 05/08/18 03:38 05/08/18 03:38 05/08/18 03:38 Oxygen Flow Rate (L/min) 2 Oxygen Delivery Method Room Air Weight: 65.2 kg Body Mass Index (BMI) 28.7 Finger Stick Blood Glucose 164 Intake and Output for Last 24 Hours 05/06/18 05/07/18 05/08/18 23:59 23:59 23:59 Intake Total 1609.9 / 1609.9 60 / 60 Output Total 3220 / 3220 575 / 575 Balance -1610.1 / -1610.1 -515 / -515 Labs (Last 48 Hours) 05/06/18 05/06/18 05/06/18 19:09 19:09 19:09 WBC 13.9 H RBC 4.31 Hgb 12.3 Hct 37.6 MCV 87.2 MCH 28.5 MCHC 32.7 RDW 12.8 RDW Differential 41.0 Plt Count 178 MPV 10.3 Immature Gran % (Auto) 0.400 Neut % (Auto) 82.5 H Lymph % (Auto) 8.2 L [place] % (Auto) 8.0 Eos % (Auto) 0.8 Baso % (Auto) 0.1 Absolute Neuts (auto) 11.5 H Absolute Lymphs (auto) 1.14 Total Counted Not Reportable PT 12.6 INR 0.9 APTT 25.0 Specimen Type Sample Site pH Bicarbonate Actual POC Total CO2 Base Excess O2 Saturation O2 % ABG pCO2 ABG pO2 David Test Respiration Rate O2 Delivery Device EPAP IPAP Sodium 138 Potassium 4.1 Chloride 102 Carbon Dioxide 28.0 Anion Gap 8 BUN 18 Creatinine 0.69 Estim Creat Clear Calc 46.16 Est GFR (MDRD) Af Amer 104 Est GFR (MDRD) Non-Af 86 BUN/Creatinine Ratio 26.0 H Glucose 224 H Lactic Acid Calcium 8.3 L Troponin I 0.096 H MRSA (PCR) POC Glucose 05/06/18 05/06/18 05/06/18 20:45 20:59 22:34 WBC RBC Hgb Hct MCV MCH MCHC RDW RDW Differential Plt Count MPV Immature Gran % (Auto) Neut % (Auto) Lymph % (Auto) [place] % (Auto) Eos % (Auto) Baso % (Auto) Absolute Neuts (auto) Absolute Lymphs (auto) Total Counted PT INR APTT Specimen Type ART Sample Site L Radial pH 7.46 H Bicarbonate Actual 24.2 POC Total CO2 25 Base Excess 0 O2 Saturation 91 L O2 % 50 ABG pCO2 34.2 L ABG pO2 58 L David Test POS Respiration Rate 27 O2 Delivery Device Bi / C PAP EPAP 5 IPAP 5 Sodium Potassium Chloride Carbon Dioxide Anion Gap BUN Creatinine Estim Creat Clear Calc Est GFR (MDRD) Af Amer Est GFR (MDRD) Non-Af BUN/Creatinine Ratio Glucose Lactic Acid 1.0 Calcium Troponin I 0.758 H* MRSA (PCR) POC Glucose 05/06/18 05/07/18 05/07/18 22:34 01:00 04:55 WBC 9.8 RBC 4.03 L Hgb 11.7 L Hct 35.1 L MCV 87.1 MCH 29.0 MCHC 33.3 RDW 12.4 RDW Differential 38.7 Plt Count 177 MPV 10.6 Immature Gran % (Auto) 0.100 Neut % (Auto) 62.1 Lymph % (Auto) 24.9 [place] % (Auto) 11.7 H Eos % (Auto) 1.0 Baso % (Auto) 0.2 Absolute Neuts (auto) 6.1 Absolute Lymphs (auto) 2.45 Total Counted Not Reportable PT INR APTT Specimen Type Sample Site pH Bicarbonate Actual POC Total CO2 Base Excess O2 Saturation O2 % ABG pCO2 ABG pO2 David Test Respiration Rate O2 Delivery Device EPAP IPAP Sodium Potassium Chloride Carbon Dioxide Anion Gap BUN Creatinine Estim Creat Clear Calc Est GFR (MDRD) Af Amer Est GFR (MDRD) Non-Af BUN/Creatinine Ratio Glucose Lactic Acid Calcium Troponin I 1.410 H* MRSA (PCR) Negative POC Glucose 05/07/18 05/07/18 05/08/18 04:55 21:39 06:05 WBC RBC Hgb Hct MCV MCH MCHC RDW RDW Differential Plt Count MPV Immature Gran % (Auto) Neut % (Auto) Lymph % (Auto) [place] % (Auto) Eos % (Auto) Baso % (Auto) Absolute Neuts (auto) Absolute Lymphs (auto) Total Counted PT INR APTT Specimen Type Sample Site pH Bicarbonate Actual POC Total CO2 Base Excess O2 Saturation O2 % ABG pCO2 ABG pO2 David Test Respiration Rate O2 Delivery Device EPAP IPAP Sodium 142 Potassium 3.8 Chloride 103 Carbon Dioxide 29.0 Anion Gap 10 BUN 10 Creatinine 0.60 Estim Creat Clear Calc 30.62 Est GFR (MDRD) Af Amer 124 Est GFR (MDRD) Non-Af 102 BUN/Creatinine Ratio 16.8 Glucose 183 H Lactic Acid Calcium 8.4 L Troponin I 1.940 H* MRSA (PCR) POC Glucose 292 H 05/08/18 06:42 WBC RBC Hgb Hct MCV MCH MCHC RDW RDW Differential Plt Count MPV Immature Gran % (Auto) Neut % (Auto) Lymph % (Auto) [place] % (Auto) Eos % (Auto) Baso % (Auto) Absolute Neuts (auto) Absolute Lymphs (auto) Total Counted PT INR APTT Specimen Type Sample Site pH Bicarbonate Actual POC Total CO2 Base Excess O2 Saturation O2 % ABG pCO2 ABG pO2 David Test Respiration Rate O2 Delivery Device EPAP IPAP Sodium Potassium Chloride Carbon Dioxide Anion Gap BUN Creatinine Estim Creat Clear Calc Est GFR (MDRD) Af Amer Est GFR (MDRD) Non-Af BUN/Creatinine Ratio Glucose Lactic Acid Calcium Troponin I MRSA (PCR) POC Glucose 159 H Microbiology 05/07/18 12:21 Sputum, Expectorated/Coughed Gram Stain - Final 05/07/18 06:50 Mucosa - Nasopharyngeal Respiratory Panel (PCR) - Final 05/07/18 00:00 Urine, Random Legionella Antigen - Final 05/07/18 00:00 Urine, Random Streptococcus pneumoniae Antigen (M - Final Medical Necessity - Tobacco Use Smoking Status: Never smoker Assessment/Plan All Active Problems (Last Reviewed 05/07/18 @ 03:25 by Gutierrez Ron MD) Pneumonia (Acute) Sepsis (Acute) Respiratory failure (Acute) Elevated troponin (Acute) Hypoxemia (Acute) Community acquired pneumonia (Acute) Carotid stenosis, left (Acute) Nonrheumatic mitral (valve) insufficiency (Acute) Chest pain (Resolved) Hypertensive urgency (Resolved) RECOMMENDATIONS: 1. Walking oximetry prior to discharge 2. Defer to cardiology on anticoagulation 3. Wean oxygen as tolerated 4. Discontinue antibiotics 5. Defer to cardiology on further diuresis 6. No outpatient pulmonary follow-up is likely indicated IMPRESSIONS: 1. Acute hypoxic respiratory failure secondary to probable acute on chronic diastolic congestive heart failure Patient responded very well to diuretic therapy. Patient's oxygenation is almost back to baseline. Patient should have a walking oximetry prior to discharge, but pneumonia would not be expected to improve this quickly. Will discontinue antibiotics. Defer to cardiology on further diuretic therapy and if anticoagulation is necessary. Patient has been given platelet therapy. 2. Possible type II non-ST elevation [place] She does have an extensive cardiac history and sees Dr. Dawson as an outpatient. Patient is on aspirin and statin therapy. Patient with recent left carotid endarterectomy. Troponins had peaked and patient is not complaining of any chest pain at this time. 3. Left carotid endarterectomy postop day #2 Patient does not appear to have any complications of surgery at this time. No focal neurologic deficits, ecchymosis at the incision site or exudate is appreciated. Surgery is following. 4. Hypertension/hyperlipidemia/peripheral artery disease/advanced age/aortic stenosis Complicates care, management, recovery and prognosis. Okay to continue with baseline medications from my perspective. Code Visit Inpatient E&M: 12326 Subs Hosp L2
[2018-05-08] MEDS: Ipratropium/Albuterol Sulfate 3 ML AMPUL.NEB INHALATION ×4 (07:53→23:26)
[2018-05-08] MEDS: Insulin Lispro 100 UNIT/ML INSULN.PEN SC ×4 (08:15→21:35)
[2018-05-08] MEDS: Aspirin E.C. 81 MG Tablet PO (10:32)
[2018-05-08] MEDS: Furosemide 40 MG Tablet PO (10:33)
[2018-05-08] MEDS: Clopidogrel Bisulfate 75 MG Tablet PO (10:33)
[2018-05-08] MEDS: Metoprolol Tartrate 25 MG Tablet 12.5 MG PO (10:33)
[2018-05-08] MEDS: Heparin Injection (Vial) 5,000 UNIT/ML VIAL 5000 UNIT SC ×2 (10:34→21:36)
[2018-05-08 11:17] LABS: Bedside Glucose 374 mg/dL (70-110)
[2018-05-08 11:42] LABS: Bedside Glucose 346 mg/dL (70-110)
--- NOTE | 2018-05-08 11:55 | PCM.PN.CARD ---
Subjectve: Denies any complaints. Breathing better. Objective: Vital Signs Temp Pulse Resp BP Pulse Ox 98.6 F 79 16 164/43 H 96 05/08/18 08:33 05/08/18 11:00 05/08/18 08:33 05/08/18 10:33 05/08/18 08:33 Oxygen Flow Rate (L/min) 1 Oxygen Delivery Method Nasal Cannula Weight: 65.2 kg Body Mass Index (BMI) 28.7 Finger Stick Blood Glucose 164 Intake and Output for Last 24 Hours 05/06/18 05/07/18 05/08/18 23:59 23:59 23:59 Intake Total 1609.9 / 1609.9 360 / 360 Output Total 3220 / 3220 1025 / 1025 Balance -1610.1 / -1610.1 -665 / -665 General: Healthy Appearing, Awake, Alert, Oriented x 3, No Acute Distress HEENT: Atraumatic, Normocephalic Neck: Supple, - - Mild JVD Lungs: Diminished Sajan Bases Cardiovascular: Regular Rhythm, Normal S1 - 3/6 systolic murmur at apex, Normal S2 Extremities: No edema 05/08/18 06:05: Sodium 142, Potassium 3.8, Chloride 103, Carbon Dioxide 29.0, Anion Gap 10, BUN 10, Creatinine 0.60, Est GFR (MDRD) Af Amer 124, Est GFR (MDRD) Non-Af 102, BUN/Creatinine Ratio 16.8, Glucose 183 H, Calcium 8.4 L Rhythm: Sinus rhythm EKG: ECHO: Stress Test: Cardiac Cath: PCI: CT Surgery: Holter monitor: EPS: PPM: CXR: Chest CT Scan: Medical Necessity - Tobacco Use Smoking Status: Never smoker Assessment/Plan 1. Non-ST elevation myocardial infarction. History of significant coronary artery disease. Likely demand phenomenon with her acute diastolic congestive heart failure. Asymptomatic. Continue medical management. Increase metoprolol as tolerated. Options were discussed with the patient. She expresses her wish not to engle into cardiac catheterization during this admission. Continue medical management. She was advised that if she started having chest pains or shortness of breath again, then she may need to have the procedure done urgently. 2. Coronary artery disease. #1 above. 3. Hypertension. Increase metoprolol. 4. Acute diastolic congestive heart failure. Resolved. 5. Carotid artery disease status post carotid endarterectomy. The patient continues to be stable, she may be discharged home in the morning from a cardiology standpoint. Follow-up as outpatient with Dr. Dawson in 1 week.
--- NOTE | 2018-05-08 14:51 | CPS ---
CPAP machine removed from patient's room at this time.
[2018-05-08] MEDS: Isosorbide Mononitrate 60 MG Tablet PO (17:01)
[2018-05-08 17:57] LABS: Bedside Glucose 166 mg/dL (70-110)
--- NOTE | 2018-05-08 19:14 | PCM.PN.HOSP ---
Patient Problems: Active and Suspected Problems (Last Reviewed 05/07/18 @ 03:25 by Gutierrez Ron MD) Pneumonia (Acute) Sepsis (Acute) Respiratory failure (Acute) Elevated troponin (Acute) Hypoxemia (Acute) Community acquired pneumonia (Acute) Subjective: Feels much better today, she is breathing easier. She had no acute events overnight. Denies any chest pain currently Vitals/I&O's: Vital Signs Temp Pulse Resp BP Pulse Ox 98.7 F 80 16 142/47 H 96 05/08/18 14:21 05/08/18 15:40 05/08/18 15:40 05/08/18 14:21 05/08/18 15:40 Oxygen Flow Rate (L/min) 2 Oxygen Delivery Method Room Air Weight: 143 lb 11.862 oz Body Mass Index (BMI) 28.7 Finger Stick Blood Glucose 164 Intake and Output for Last 24 Hours 05/06/18 05/07/18 05/08/18 23:59 23:59 23:59 Intake Total 1609.9 / 1609.9 600 / 600 Output Total 3220 / 3220 1025 / 1025 Balance -1610.1 / -1610.1 -425 / -425 General: Alert, Oriented x3, Cooperative, No apparent distress HEENT: Atraumatic, PERRLA, EOMI, Normocephalic, - - Left endarterectomy incision Oral: Moist Mucosa Neck: Supple, No JVD Lungs: Clear to auscultation, Normal air movement, No rhonchi, No wheeze, No rales Cardiovascular: Regular rate, Regular Rhythm, Normal S1, Normal S2, Murmur Abdomen: Soft, Non Tender, Non-Distended, No Hepato-splenomegaly Extremities: No edema, Capillary Refill Less than 3 Seconds Skin: No rashes, No breakdown, Incision - Healing well Neurological: Neuro grossly intact, Sensory exam intact to light touch and pain Psych/Mental Status: Normal Affect, Appropriate Microbiology Past 72 Hours 05/07/18 12:21 Sputum, Expectorated/Coughed Gram Stain - Final 05/07/18 06:50 Mucosa - Nasopharyngeal Respiratory Panel (PCR) - Final 05/07/18 00:00 Urine, Random Legionella Antigen - Final 05/07/18 00:00 Urine, Random Streptococcus pneumoniae Antigen (M - Final Laboratory Results 05/07/18 21:39: POC Glucose 292 H 05/08/18 06:05: Sodium 142, Potassium 3.8, Chloride 103, Carbon Dioxide 29.0, Anion Gap 10, BUN 10, Creatinine 0.60, Estim Creat Clear Calc 30.62, Est GFR (MDRD) Af Amer 124, Est GFR (MDRD) Non-Af 102, BUN/Creatinine Ratio 16.8, Glucose 183 H, Calcium 8.4 L 05/08/18 06:42: POC Glucose 159 H 05/08/18 11:05: POC Glucose 374 H 05/08/18 11:37: POC Glucose 346 H 05/08/18 16:57: POC Glucose 166 H Current Medications Acetaminophen (Tylenol) 650 mg PO Q4H PRN PRN PRN Reason: PAIN Hydrocodone Bitart/Acetaminophen ([place] 5mg-325mg) 1 tablet PO Q6H PRN PRN PRN Reason: PAIN Albuterol Sulfate (Ventolin Aerosols) 2.5 mg INHALATION Q2H PRN PRN PRN Reason: SHORTNESS OF BREATH Albuterol/Ipratropium (Duoneb) 3 ml INHALATION Q4H.RT [facility] Last Admin: 05/08/18 15:39 Dose: 3 ml Aspirin (Ecotrin) 81 mg PO DAILY@0800 [facility] Last Admin: 05/08/18 10:32 Dose: 81 mg Atorvastatin Calcium (Lipitor) 40 mg PO QHS [facility] Last Admin: 05/07/18 04:55 Dose: 40 mg Clopidogrel Bisulfate (Plavix) 75 mg PO DAILY [facility] Last Admin: 05/08/18 10:33 Dose: 75 mg Furosemide (Lasix) 40 mg PO DAILY [facility] Last Admin: 05/08/18 10:33 Dose: 40 mg Heparin Sodium (Porcine) (Heparin Na) 5,000 unit SC Q12 [facility] Last Admin: 05/08/18 10:34 Dose: 5,000 unit Insulin Human Lispro (Humalog Kwikpen (Bkc)) 0 unit SC [facility]; Protocol Last Admin: 05/08/18 17:01 Dose: 1 u Isosorbide Mononitrate (Imdur) 60 mg PO DAILY [facility] Last Admin: 05/08/18 17:01 Dose: 60 mg Labetalol HCl (Trandate) 10 mg IV Q4H PRN PRN PRN Reason: SBP > 160 Last Admin: 05/08/18 04:35 Dose: 10 mg Magnesium Hydroxide (Milk Of Magnesia) 30 ml PO DAILY PRN PRN PRN Reason: Constipation Metoprolol Tartrate (Lopressor (Beta José Antonio)) 25 mg PO BID [facility] Sertraline HCl (Zoloft) 50 mg PO QHS [facility] Last Admin: 05/07/18 21:48 Dose: 50 mg Sodium Chloride () 5 - 15 ml IV UD PRN PRN Reason: SALINE FLUSH Last Admin: 05/08/18 04:35 Dose: 10 ml Medical Necessity - Tobacco Use Smoking Status: Never smoker Assessment/Plan All Active Problems (Last Reviewed 05/07/18 @ 03:25 by Gutierrez Ron MD) Pneumonia (Acute) Sepsis (Acute) Respiratory failure (Acute) Elevated troponin (Acute) Hypoxemia (Acute) Community acquired pneumonia (Acute) Carotid stenosis, left (Acute) Nonrheumatic mitral (valve) insufficiency (Acute) Chest pain (Resolved) Hypertensive urgency (Resolved) 1. Acute hypoxic respiratory failure secondary to acute diastolic heart failure and NSTEMI/HTN/HLD/aortic stenosis/CAD post stent -Discontinue antibiotics, unlikely to be pneumonia given the quick improvement. The leukocytosis is likely related to recently having a carotid endarterectomy on the left -Continue with medical management for now, aspirin, Plavix and will plan for cardiac cath on Thursday by Dr. Dawson -Continue with diuresis, she is -2 L since admission -Continue with metoprolol, and statin -Of note she was never septic 2. Depression -Stable -Zoloft DVT: Heparin Code Visit Inpatient E&M: 42478 Subs Hosp L2
--- NOTE | 2018-05-08 19:23 | PN_ITS ---
Patient Problems: Active and Suspected Problems (Last Reviewed 05/07/18 @ 03:25 by Gutierrez Ron MD) Pneumonia (Acute) Sepsis (Acute) Respiratory failure (Acute) Elevated troponin (Acute) Hypoxemia (Acute) Community acquired pneumonia (Acute) Subjective: Feels much better today, she is breathing easier. She had no acute events overnight. Denies any chest pain currently Vitals/I&O's: Vital Signs Temp Pulse Resp BP Pulse Ox 98.7 F 80 16 142/47 H 96 05/08/18 14:21 05/08/18 15:40 05/08/18 15:40 05/08/18 14:21 05/08/18 15:40 Oxygen Flow Rate (L/min) 2 Oxygen Delivery Method Room Air Weight: 143 lb 11.862 oz Body Mass Index (BMI) 28.7 Finger Stick Blood Glucose 164 Intake and Output for Last 24 Hours 05/06/18 05/07/18 05/08/18 23:59 23:59 23:59 Intake Total 1609.9 / 1609.9 600 / 600 Output Total 3220 / 3220 1025 / 1025 Balance -1610.1 / -1610.1 -425 / -425 General: Alert, Oriented x3, Cooperative, No apparent distress HEENT: Atraumatic, PERRLA, EOMI, Normocephalic, - - Left endarterectomy incision Oral: Moist Mucosa Neck: Supple, No JVD Lungs: Clear to auscultation, Normal air movement, No rhonchi, No wheeze, No rales Cardiovascular: Regular rate, Regular Rhythm, Normal S1, Normal S2, Murmur Abdomen: Soft, Non Tender, Non-Distended, No Hepato-splenomegaly Extremities: No edema, Capillary Refill Less than 3 Seconds Skin: No rashes, No breakdown, Incision - Healing well Neurological: Neuro grossly intact, Sensory exam intact to light touch and pain Psych/Mental Status: Normal Affect, Appropriate Microbiology Past 72 Hours 05/07/18 12:21 Sputum, Expectorated/Coughed Gram Stain - Final 05/07/18 06:50 Mucosa - Nasopharyngeal Respiratory Panel (PCR) - Final 05/07/18 00:00 Urine, Random Legionella Antigen - Final 05/07/18 00:00 Urine, Random Streptococcus pneumoniae Antigen (M - Final Laboratory Results 05/07/18 21:39: POC Glucose 292 H 05/08/18 06:05: Sodium 142, Potassium 3.8, Chloride 103, Carbon Dioxide 29.0, Anion Gap 10, BUN 10, Creatinine 0.60, Estim Creat Clear Calc 30.62, Est GFR (MDRD) Af Amer 124, Est GFR (MDRD) Non-Af 102, BUN/Creatinine Ratio 16.8, Glucose 183 H, Calcium 8.4 L 05/08/18 06:42: POC Glucose 159 H 05/08/18 11:05: POC Glucose 374 H 05/08/18 11:37: POC Glucose 346 H 05/08/18 16:57: POC Glucose 166 H Current Medications Acetaminophen (Tylenol) 650 mg PO Q4H PRN PRN PRN Reason: PAIN Hydrocodone Bitart/Acetaminophen ([place] 5mg-325mg) 1 tablet PO Q6H PRN PRN PRN Reason: PAIN Albuterol Sulfate (Ventolin Aerosols) 2.5 mg INHALATION Q2H PRN PRN PRN Reason: SHORTNESS OF BREATH Albuterol/Ipratropium (Duoneb) 3 ml INHALATION Q4H.RT [facility] Last Admin: 05/08/18 15:39 Dose: 3 ml Aspirin (Ecotrin) 81 mg PO DAILY@0800 [facility] Last Admin: 05/08/18 10:32 Dose: 81 mg Atorvastatin Calcium (Lipitor) 40 mg PO QHS [facility] Last Admin: 05/07/18 04:55 Dose: 40 mg Clopidogrel Bisulfate (Plavix) 75 mg PO DAILY [facility] Last Admin: 05/08/18 10:33 Dose: 75 mg Furosemide (Lasix) 40 mg PO DAILY [facility] Last Admin: 05/08/18 10:33 Dose: 40 mg Heparin Sodium (Porcine) (Heparin Na) 5,000 unit SC Q12 [facility] Last Admin: 05/08/18 10:34 Dose: 5,000 unit Insulin Human Lispro (Humalog Kwikpen (Bkc)) 0 unit SC [facility]; Protocol Last Admin: 05/08/18 17:01 Dose: 1 u Isosorbide Mononitrate (Imdur) 60 mg PO DAILY [facility] Last Admin: 05/08/18 17:01 Dose: 60 mg Labetalol HCl (Trandate) 10 mg IV Q4H PRN PRN PRN Reason: SBP > 160 Last Admin: 05/08/18 04:35 Dose: 10 mg Magnesium Hydroxide (Milk Of Magnesia) 30 ml PO DAILY PRN PRN PRN Reason: Constipation Metoprolol Tartrate (Lopressor (Beta José Antonio)) 25 mg PO BID [facility] Sertraline HCl (Zoloft) 50 mg PO QHS [facility] Last Admin: 05/07/18 21:48 Dose: 50 mg Sodium Chloride () 5 - 15 ml IV UD PRN PRN Reason: SALINE FLUSH Last Admin: 05/08/18 04:35 Dose: 10 ml Medical Necessity - Tobacco Use Smoking Status: Never smoker Assessment/Plan All Active Problems (Last Reviewed 05/07/18 @ 03:25 by Gutierrez Ron MD) Pneumonia (Acute) Sepsis (Acute) Respiratory failure (Acute) Elevated troponin (Acute) Hypoxemia (Acute) Community acquired pneumonia (Acute) Carotid stenosis, left (Acute) Nonrheumatic mitral (valve) insufficiency (Acute) Chest pain (Resolved) Hypertensive urgency (Resolved) 1. Acute hypoxic respiratory failure secondary to acute diastolic heart failure and NSTEMI/HTN/HLD/aortic stenosis/CAD post stent -Discontinue antibiotics, unlikely to be pneumonia given the quick improvement. The leukocytosis is likely related to recently having a carotid endarterectomy o n the left -Continue with medical management for now, aspirin, Plavix and will plan for cardiac cath on Thursday by Dr. Dawson -Continue with diuresis, she is -2 L since admission -Continue with metoprolol, and statin -Of note she was never septic 2. Depression -Stable -Zoloft DVT: Heparin Code Visit Inpatient E&M: 12119 Subs Hosp L2
[2018-05-08] MEDS: Sertraline 50 MG Tablet PO (21:34)
[2018-05-08] MEDS: Atorvastatin Calcium 40 MG Tablet PO (21:34)
[2018-05-08] MEDS: Metoprolol Tartrate 25 MG Tablet PO (21:34)
[2018-05-08 22:57] LABS: Bedside Glucose 245 mg/dL (70-110)
[2018-05-09] VITALS (16 sets, daily range): BP systolic 104–213; BP diastolic 37–75; PULSE 67–96; RESP 16–20; TEMP 36.5–37.2; O2SAT 91–99
[2018-05-09 07:02] LABS: Bedside Glucose 190 mg/dL (70-110)
--- NOTE | 2018-05-09 07:12 | PN_ITS ---
Patient Problems: Active and Suspected Problems (Last Reviewed 05/07/18 @ 03:25 by Gutierrez Ron MD) Pneumonia (Acute) Sepsis (Acute) Respiratory failure (Acute) Elevated troponin (Acute) Hypoxemia (Acute) Community acquired pneumonia (Acute) Subjective: No issues overnight doing very well. Denies chest pain Vitals/I&O's: Vital Signs Temp Pulse Resp BP Pulse Ox 98.8 F 67 18 131/59 H 95 05/09/18 02:50 05/09/18 03:06 05/09/18 02:50 05/09/18 02:50 05/09/18 02:50 Oxygen Flow Rate (L/min) 2 Oxygen Delivery Method Room Air Weight: 145 lb 4.554 oz Body Mass Index (BMI) 28.7 Finger Stick Blood Glucose 164 Intake and Output for Last 24 Hours 05/07/18 05/08/18 05/09/18 23:59 23:59 23:59 Intake Total 1609.9 / 1609.9 720 / 720 60 / 60 Output Total 3220 / 3220 1025 / 1025 Balance -1610.1 / -1610.1 -305 / -305 60 / 60 General: Alert, Oriented x3, Cooperative, No apparent distress HEENT: Atraumatic, PERRLA, EOMI, Normocephalic, - - Left endarterectomy incision Oral: Moist Mucosa Neck: Supple, No JVD Lungs: Clear to auscultation, Normal air movement, No rhonchi, No wheeze, No rales Cardiovascular: Regular rate, Regular Rhythm, Normal S1, Normal S2, Murmur Abdomen: Soft, Non Tender, Non-Distended, No Hepato-splenomegaly Extremities: No edema, Capillary Refill Less than 3 Seconds Skin: No rashes, No breakdown, Incision - Healing well Neurological: Neuro grossly intact, Sensory exam intact to light touch and pain Psych/Mental Status: Normal Affect, Appropriate Microbiology Past 72 Hours 05/07/18 12:21 Sputum, Expectorated/Coughed Gram Stain - Final 05/07/18 06:50 Mucosa - Nasopharyngeal Respiratory Panel (PCR) - Final 05/07/18 00:00 Urine, Random Legionella Antigen - Final 05/07/18 00:00 Urine, Random Streptococcus pneumoniae Antigen (M - Final Laboratory Results 05/08/18 06:05: Sodium 142, Potassium 3.8, Chloride 103, Carbon Dioxide 29.0, Anion Gap 10, BUN 10, Creatinine 0.60, Estim Creat Clear Calc 30.62, Est GFR (MDRD) Af Amer 124, Est GFR (MDRD) Non-Af 102, BUN/Creatinine Ratio 16.8, Glucose 183 H, Calcium 8.4 L 05/08/18 06:42: POC Glucose 159 H 05/08/18 11:05: POC Glucose 374 H 05/08/18 11:37: POC Glucose 346 H 05/08/18 16:57: POC Glucose 166 H 05/08/18 21:31: POC Glucose 245 H 05/09/18 06:51: POC Glucose 190 H Current Medications Acetaminophen (Tylenol) 650 mg PO Q4H PRN PRN PRN Reason: PAIN Hydrocodone Bitart/Acetaminophen ([place] 5mg-325mg) 1 tablet PO Q6H PRN PRN PRN Reason: PAIN Albuterol Sulfate (Ventolin Aerosols) 2.5 mg INHALATION Q2H PRN PRN PRN Reason: SHORTNESS OF BREATH Albuterol/Ipratropium (Duoneb) 3 ml INHALATION Q4H.RT [facility] [place] Last Admin: 05/09/18 03:00 Dose: Not Given Aspirin (Ecotrin) 81 mg PO DAILY@0800 [facility] Last Admin: 05/08/18 10:32 Dose: 81 mg Atorvastatin Calcium (Lipitor) 40 mg PO QHS [facility] Last Admin: 05/08/18 21:34 Dose: 40 mg Clopidogrel Bisulfate (Plavix) 75 mg PO DAILY [facility] Last Admin: 05/08/18 10:33 Dose: 75 mg Furosemide (Lasix) 40 mg PO DAILY [facility] [place] Last Admin: 05/08/18 10:33 Dose: 40 mg Heparin Sodium (Porcine) (Heparin Na) 5,000 unit SC Q12 [facility] Last Admin: 05/08/18 21:36 Dose: 5,000 unit Insulin Human Lispro (Humalog Kwikpen (Bkc)) 0 unit SC [facility] [place]; Protocol Last Admin: 05/08/18 21:35 Dose: 3 u Isosorbide Mononitrate (Imdur) 60 mg PO DAILY [facility] Last Admin: 05/08/18 17:01 Dose: 60 mg Labetalol HCl (Trandate) 10 mg IV Q4H PRN PRN PRN Reason: SBP > 160 Last Admin: 05/08/18 04:35 Dose: 10 mg Magnesium Hydroxide (Milk Of Magnesia) 30 ml PO DAILY PRN PRN PRN Reason: Constipation Metoprolol Tartrate (Lopressor (Beta José Antonio)) 25 mg PO BID [facility] Last Admin: 05/08/18 21:34 Dose: 25 mg Sertraline HCl (Zoloft) 50 mg PO QHS [facility] Last Admin: 05/08/18 21:34 Dose: 50 mg Sodium Chloride () 5 - 15 ml IV UD PRN PRN Reason: SALINE FLUSH Last Admin: 05/08/18 04:35 Dose: 10 ml Medical Necessity - Tobacco Use Smoking Status: Never smoker Assessment/Plan All Active Problems (Last Reviewed 05/07/18 @ 03:25 by Gutierrez Ron MD) Pneumonia (Acute) Sepsis (Acute) Respiratory failure (Acute) Elevated troponin (Acute) Hypoxemia (Acute) Community acquired pneumonia (Acute) Carotid stenosis, left (Acute) Nonrheumatic mitral (valve) insufficiency (Acute) Chest pain (Resolved) Hypertensive urgency (Resolved) 1. Acute hypoxic respiratory failure secondary to acute diastolic heart failure and NSTEMI/HTN/HLD/aortic stenosis/CAD post stent -Discontinue antibiotics, unlikely to be pneumonia given the quick improvement. The leukocytosis is likely related to recently having a carotid endarterectomy on the left -Continue with medical management for now, aspirin, Plavix and will plan for cardiac cath on Thursday by Dr. Dawson -Continue with diuresis, she is -2 L since admission -Continue with metoprolol, and statin -Of note she was never septic 2. Depression -Stable -Zoloft DVT: Heparin Code Visit Inpatient E&M: 13632 Subs Hosp L2
[2018-05-09] MEDS: Ipratropium/Albuterol Sulfate 3 ML AMPUL.NEB INHALATION ×4 (07:45→23:00)
--- NOTE | 2018-05-09 08:20 | PCM.PROGNOTE ---
Patient Problems: Active and Suspected Problems (Last Reviewed 05/07/18 @ 03:25 by Gutierrez Ron MD) Pneumonia (Acute) Sepsis (Acute) Respiratory failure (Acute) Elevated troponin (Acute) Hypoxemia (Acute) Community acquired pneumonia (Acute) Subjective: Patient did well overnight. No acute issues were reported outside of elevated glucose levels. Patient has tolerated blood pressure medications well. Patient feels she is strong enough to go home. Patient's family member is requesting information on diabetic diet, but states that she is never had problems with elevated blood sugars previously. - Physical Exam General: Alert, Oriented x3, Cooperative, No apparent distress, - - Speaking in full sentences. HEENT: Atraumatic, PERRLA, EOMI, Normocephalic, - - No scleral icterus or injection noted. Oral: Moist Mucosa, No Gingival or Mucosal Lesions/ Ulcerations, - - Dentures in place Neck: Supple, No JVD, No Nodes, Trachea Midline Lungs: No rhonchi, No wheeze, No rales, Diminished, - - Symmetric expansion. No dullness to percussion. Cardiovascular: Regular rate, Regular Rhythm, Normal S1, Normal S2, Murmur, No rub noted, No Gallop Abdomen: Bowel Sounds Present, Soft, Non Tender, Non-Distended Extremities: No clubbing, No cyanosis, Edema - Trace lower extremity Skin: No rashes, No breakdown Musculoskeletal: No Tenderness to Palpation of Joints or Extremities Lymphatic: No Cervical, Supraclavicular, or Inguinal Adenopathy Neurological: Cranial nerves II-XII grossly intact, Neuro grossly intact, Motor Exam 5/5 strength throughout Psych/Mental Status: Alert and oriented to time, place, person, mood and affect Vital Signs Temp Pulse Resp BP Pulse Ox 37.1 C 70 18 131/59 H 95 05/09/18 02:50 05/09/18 06:55 05/09/18 02:50 05/09/18 02:50 05/09/18 02:50 Oxygen Flow Rate (L/min) 2 Oxygen Delivery Method Room Air Weight: 65.9 kg Body Mass Index (BMI) 28.7 Finger Stick Blood Glucose 164 Intake and Output for Last 24 Hours 05/07/18 05/08/18 05/09/18 23:59 23:59 23:59 Intake Total 1609.9 / 1609.9 720 / 720 60 / 60 Output Total 3220 / 3220 1025 / 1025 Balance -1610.1 / -1610.1 -305 / -305 60 / 60 Microbiology Past 72 Hours 05/07/18 12:21 Gram Stain - Final Sputum, Expectorated/Coughed 05/07/18 06:50 Respiratory Panel (PCR) - Final Mucosa - Nasopharyngeal 05/07/18 00:00 Legionella Antigen - Final Urine, Random 05/07/18 00:00 Streptococcus pneumoniae Antigen (M - Final Urine, Random POC Glucose 05/09/18 05/08/18 05/08/18 06:51 21:31 16:57 POC Glucose 190 H 245 H 166 H 05/08/18 05/08/18 11:37 11:05 POC Glucose 346 H 374 H Medical Necessity - Tobacco Use Smoking Status: Never smoker Assessment/Plan All Active Problems (Last Reviewed 05/07/18 @ 03:25 by Gutierrez oRn MD) Pneumonia (Acute) Sepsis (Acute) Respiratory failure (Acute) Elevated troponin (Acute) Hypoxemia (Acute) Community acquired pneumonia (Acute) Carotid stenosis, left (Acute) Nonrheumatic mitral (valve) insufficiency (Acute) Chest pain (Resolved) Hypertensive urgency (Resolved) RECOMMENDATIONS: 1. Walking oximetry prior to discharge 2. Defer to cardiology on anticoagulation 3. Wean oxygen as tolerated 4. No outpatient pulmonary follow-up is likely indicated IMPRESSIONS: 1. Acute hypoxic respiratory failure secondary to probable acute on chronic diastolic congestive heart failure Patient responded very well to diuretic therapy. Patient's oxygenation is almost back to baseline. Patient should have a walking oximetry prior to discharge, but pneumonia would not be expected to improve this quickly. Patient doing well off of antibiotics. Defer to cardiology on further diuretic therapy and if anticoagulation is necessary. Patient has been given platelet therapy. 2. Possible type II non-ST elevation VT She does have an extensive cardiac history and sees Dr. Dawson as an outpatient. Patient is on aspirin and statin therapy. Patient with recent left carotid endarterectomy. Troponins had peaked and patient is not complaining of any chest pain at this time. Current reported plan is to discuss cardiac catheterization as an outpatient. 3. Left carotid endarterectomy postop day #3 Patient does not appear to have any complications of surgery at this time. No focal neurologic deficits, ecchymosis at the incision site or exudate is appreciated. Surgery is following. 4. Hypertension/hyperlipidemia/peripheral artery disease/advanced age/aortic stenosis Complicates care, management, recovery and prognosis. Okay to continue with baseline medications from my perspective. Code Visit Inpatient E&M: 70513 Subs Hosp L2
--- NOTE | 2018-05-09 08:34 | CPS ---
Patient working on PEP Therapy on own.
[2018-05-09] MEDS: Insulin Lispro 100 UNIT/ML INSULN.PEN SC ×4 (08:49→22:04)
[2018-05-09] MEDS: Clopidogrel Bisulfate 75 MG Tablet PO (08:50)
[2018-05-09] MEDS: Metoprolol Tartrate 25 MG Tablet PO ×2 (08:50→19:40)
[2018-05-09] MEDS: Aspirin E.C. 81 MG Tablet PO (08:50)
[2018-05-09] MEDS: Furosemide 40 MG Tablet PO (08:51)
[2018-05-09] MEDS: Heparin Injection (Vial) 5,000 UNIT/ML VIAL 5000 UNIT SC ×2 (08:51→22:06)
[2018-05-09] MEDS: Isosorbide Mononitrate 60 MG Tablet PO (08:51)
[2018-05-09 11:42] LABS: Bedside Glucose 181 mg/dL (70-110)
--- NOTE | 2018-05-09 12:00 | DCINST_ITS ---
- Discharge Diagnoses Current Active Problems: Current Active and Chronic Problems (Last Reviewed 05/07/18 @ 03:25 by Gutierrez Ron MD) Pneumonia (Acute) Sepsis (Acute) Respiratory failure (Acute) Elevated troponin (Acute) Hypoxemia (Acute) Community acquired pneumonia (Acute) You will use the following diet at home:: Cardiac Your food should be the consistency of: Regular Your liquids should be the consistency of: Regular/Thin Discharge Activity: Return to Normal Activity Call your doctor if your incision/area has: Sudden Increased Bleeding, Increased Redness Call your doctor if you observe: Fever of 101 or Higher, Shortness of breath, Dizziness, Fainting spells, Chest pain, Increased palpitations (irregular heartbeat) Allergies/Adverse Reactions: Allergies rosuvastatin Adverse Reaction (Verified 05/06/18 18:26) myalgia Medications to take at Discharge Nitroglycerin [Nitrostat] 0.4 mg SUBLINGUAL Q5M PRN #20 tab 07/11/16 sertraline 50 mg tablet 50 mg PO QHS 03/09/17 Aspirin E.C. [Ecotrin] 81 mg PO DAILY@0800 04/28/18 Acetaminophen [Tylenol] 650 mg PO PRN PRN 05/06/18 Metoprolol Tartrate 12.5 mg PO BID 05/06/18 Simvastatin [Zocor] 40 mg PO DAILY 05/06/18 Clopidogrel Bisulfate [Plavix] 75 mg PO DAILY #30 tablet 05/09/18 Furosemide [Lasix] 40 mg PO DAILY #30 tablet 05/09/18 Isosorbide Mononitrate [Imdur] 60 mg PO DAILY #30 tablet 05/09/18 The following prescriptions were given: Clopidogrel Bisulfate [Plavix] 75 mg PO DAILY #30 tablet Furosemide [Lasix] 40 mg PO DAILY #30 tablet Isosorbide Mononitrate [Imdur] 60 mg PO DAILY #30 tablet Primary Care Physician: Murphy Burton DO [Primary Care Provider] - Please follow up with your Primary Care Physician in: 3-5 days Test Results: Test results from this visit will be discussed in further detail at your follow- up appointment, if applicable. Please Follow Up With: Dontrell Dawson MD When: 1 week
--- NOTE | 2018-05-09 12:07 | PCM.PN.BLA ---
Progress Note The patient wishes to stay and have cardiac catheterization done as inpatient. They want to discuss further with Dr. Dawson in the morning.
--- NOTE | 2018-05-09 12:09 | DS.PCM_ITS ---
Discharge Date and Diagnosis - Problem List Patient Problems: Active and Suspected Problems (Last Reviewed 05/07/18 @ 03:25 by Gutierrez Ron MD) Pneumonia (Acute) Sepsis (Acute) Respiratory failure (Acute) Elevated troponin (Acute) Hypoxemia (Acute) Community acquired pneumonia (Acute) Date of Admission: 05/06/18 Date of Discharge: 05/09/18 - Primary Discharge Diagnosis Active and Suspected Problems (Last Reviewed 05/07/18 @ 03:25 by Gutierrez Ron MD) Pneumonia (Acute) Sepsis (Acute) Respiratory failure (Acute) Elevated troponin (Acute) Hypoxemia (Acute) Community acquired pneumonia (Acute) - Secondary Discharge Diagnosis Chronic Problems (Last Reviewed 05/07/18 @ 03:25 by Gutierrez Ron MD) Aortic stenosis (Chronic) H/O right coronary artery stent placement (Chronic ~07/10/16) PCI-HIRAL-RCA 3.5 x 12 mm Synergy 07/10/16 Atherosclerotic heart disease of [place] coronary artery without angina pectoris (Chronic) PCI-HIRAL-RCA 3.5 x 12 mm Synergy 07/10/16 HTN (hypertension) (Chronic) HLD (hyperlipidemia) (Chronic) Occlusion and stenosis of right carotid artery (Chronic) PAD (peripheral artery disease) (Chronic) Hospital Course and Treatment Imaging Results: CTA Chest: IMPRESSION: 1. No evidence of pulmonary embolism or aortic dissection. 2. Left upper lobe basilar segment airspace disease with peribronchial edema versus inflammation. Bilateral basilar peribronchial edema versus inflammation with scattered early patchy airspace disease and small bilateral effusions. Summary of Care Provided: The patient is a 83 year old F [] Patient Problems: Active and Suspected Problems (Last Reviewed 05/07/18 @ 03:25 by Gutierrez Ron MD) Pneumonia (Acute) Sepsis (Acute) Respiratory failure (Acute) Elevated troponin (Acute) Hypoxemia (Acute) Community acquired pneumonia (Acute) - Physical Exam Vital Signs Temp Pulse Resp BP Pulse Ox 99.0 F 72 18 146/65 H 95 05/09/18 08:48 05/09/18 11:00 05/09/18 08:48 05/09/18 08:50 05/09/18 08:48 Oxygen Flow Rate (L/min) 2 Oxygen Delivery Method Room Air Weight: 145 lb 4.554 oz Body Mass Index (BMI) 28.7 Finger Stick Blood Glucose 164 Intake and Output for Last 24 Hours 05/07/18 05/08/18 05/09/18 23:59 23:59 23:59 Intake Total 1609.9 / 1609.9 720 / 720 520 / 520 Output Total 3220 / 3220 1025 / 1025 Balance -1610.1 / -1610.1 -305 / -305 520 / 520 Microbiology Past 72 Hours 05/07/18 12:21 Gram Stain - Final Sputum, Expectorated/Coughed 05/07/18 06:50 Respiratory Panel (PCR) - Final Mucosa - Nasopharyngeal 05/07/18 00:00 Legionella Antigen - Final Urine, Random 05/07/18 00:00 Streptococcus pneumoniae Antigen (M - Final Urine, Random POC Glucose 05/09/18 05/09/18 05/08/18 11:21 06:51 21:31 POC Glucose 181 H 190 H 245 H 05/08/18 16:57 POC Glucose 166 H Discharge Activity: Return to Normal Activity Call your doctor if your incision/area has: Sudden Increased Bleeding, Increased Redness Call your doctor if you observe: Fever of 101 or Higher, Shortness of breath, Dizziness, Fainting spells, Chest pain, Increased palpitations (irregular heartbeat) Home Medications: Medications to take at Discharge Nitroglycerin [Nitrostat] 0.4 mg SUBLINGUAL Q5M PRN #20 tab 07/11/16 sertraline 50 mg tablet 50 mg PO QHS 03/09/17 Aspirin E.C. [Ecotrin] 81 mg PO DAILY@0800 04/28/18 Acetaminophen [Tylenol] 650 mg PO PRN PRN 05/06/18 Metoprolol Tartrate 12.5 mg PO BID 05/06/18 Simvastatin [Zocor] 40 mg PO DAILY 05/06/18 Clopidogrel Bisulfate [Plavix] 75 mg PO DAILY #30 tablet 05/09/18 Furosemide [Lasix] 40 mg PO DAILY #30 tablet 05/09/18 Isosorbide Mononitrate [Imdur] 60 mg PO DAILY #30 tablet 05/09/18 Following Prescrptions Were Given to Patient: Clopidogrel Bisulfate [Plavix] 75 mg PO DAILY #30 tablet Furosemide [Lasix] 40 mg PO DAILY #30 tablet Isosorbide Mononitrate [Imdur] 60 mg PO DAILY #30 tablet Primary Care Physician: Murphy Burton DO [Primary Care Provider] - Please follow up with your Primary Care Physician in: 3-5 days Please Follow Up With: Dontrell Dawson MD When: 1 week Medical Necessity - Tobacco Use Smoking Status: Never smoker
[2018-05-09 17:12] LABS: Bedside Glucose 310 mg/dL (70-110)
--- NOTE | 2018-05-09 19:44 | NURSING ---
Pt refusing to be prepped for potential heart cath tomorrow. Pt and family wishing to speak with Dr. Dawson prior to any prep for a heart cath.
[2018-05-09] MEDS: Sertraline 50 MG Tablet PO (22:04)
[2018-05-09] MEDS: Atorvastatin Calcium 40 MG Tablet PO (22:04)
[2018-05-09 22:43] LABS: Bedside Glucose 269 mg/dL (70-110)
--- NOTE | 2018-05-09 22:43 | NURSING ---
Pt still refusing to have prep completed for heart cath. States that they are waiting to talk with Dr Dawson. Pt does not want to proceed with anything until her and her kids are able to discuss the risks and benefits of the heart cath or going home and coming back as an outpt for the cath at a later time. Pt is willing to follow the npo protocol in case they decide to proceed with the heart cath. Per family member in the room they were told that Dr Dawson would be in around 0630.
[2018-05-10] VITALS (10 sets, daily range): BP systolic 157–178; BP diastolic 60–86; PULSE 68–87; RESP 17–20; TEMP 36.6–36.7; O2SAT 93–97
[2018-05-10 05:51] LABS: Prothrombin Time (Protime)PT. 12.8 SECONDS (11.7-14.9)
[2018-05-10 05:52] LABS: Absolute Lymphocyte Count 2.21 X10^3/ul (0.83-4.51); Absolute Neutrophil Count 4.3 X10^3/uL (2.0-7.7); Anion Gap 9 (5-15); BUN 18 mg/dL (7-18); BUN/Creat Ratio 26.6 RATIO (10-20); Basophil# 0.04 X10^3/uL; Basophil% 0.5 % (0-1); Calcium,Total 8.7 mg/dL (8.5-10.1); Chloride 104 mmol/L (98-107); Creatinine, Serum 0.68 mg/dL (0.55-1.02); EST Glomerular Filtration Rate 88 mL/min (>60); Est Glom Filt Rate - Afr Amer 107 mL/min (>60); Estimated Creatinine Clearance 30.62 ml/min; Glucose 224 mg/dL (74-106); Hematocrit 36.1 % (37-47); Hemoglobin 11.6 g/dl (12.0-15.0); Lymphocyte # 2.21 X10^3/ul (4.0); Lymphocyte % 27.9 % (19-41); Mean Corp Hgb Conc 32.1 g/gl (32-36); Mean Corpuscular Hgb 27.9 pg (27.0-32.0); Mean Corpuscular Volume 86.8 fL (81-99); Mean Platelet Vol. 10.8 fl (6.2-12.0); Monocyte# 0.92 X10^3/uL; Monocyte% 11.6 % (0-10); Neutrophil # 4.34 X10^3/uL (2.7-7.7); Neutrophil % 54.7 % (47-70); Platelet Count 214 K/mm3 (150-450); Potassium 3.7 mmol/L (3.5-5.1); RBC Distribution Width CV 12.4 % (11.6-14.6); RBC Distribution Width SD 38.3 fl (35.1-43.9); Red Blood Count 4.16 M/mm3 (4.2-5.4); Sodium Level 141 mmol/L (136-145); White Blood Count 7.9 K/mm3 (4.4-11.0)
--- NOTE | 2018-05-10 05:55 | EKG12_ITS ---
Test Reason : Blood Pressure : / mmHG Vent. Rate : 080 BPM Atrial Rate : 080 BPM P-R Int : 130 ms QRS Dur : 088 ms QT Int : 408 ms P-R-T Axes : 072 048 -70 degrees QTc Int : 470 ms Normal sinus rhythm ST & T wave abnormality, consider anterolateral ischemia Prolonged QT Abnormal ECG When compared with ECG of 06-MAY-2018 19:13, MANUAL COMPARISON REQUIRED, DATA IS UNCONFIRMED Confirmed by ALISSA MELENDEZ, URBANO ([id number]), senior technical editor DESIRAE LINARES ([id number]) on 05/13/2018 8:50:30 AM Referred By: Gutierrez Ron Confirmed By:URBANO MAXWELL MD
[2018-05-10 06:26] LABS: POSITIVE COUNT NO; POSITIVE DIFFERENTIAL NO; POSITIVE MORPHOLOGY NO
[2018-05-10] MEDS: Aspirin E.C. 81 MG Tablet PO (06:51)
[2018-05-10] MEDS: Clopidogrel Bisulfate 75 MG Tablet PO (06:51)
[2018-05-10] MEDS: Metoprolol Tartrate 25 MG Tablet PO (06:51)
[2018-05-10] MEDS: Isosorbide Mononitrate 60 MG Tablet PO ×2 (06:51→09:57)
[2018-05-10 08:02] LABS: Bedside Glucose 192 mg/dL (70-110)
--- NOTE | 2018-05-10 09:31 | PN.CARD_ITS ---
Subjectve: Patient did very well over the weekend. The patient wished to have clarification and explanation of left heart catheterization and possible intervention with both herself and her family members. I had a long and thorough discussion with the patient and 5 family members, all questions were answered, and after much discussion, the patient has decided to hold off on left heart catheterization at this time. Telemetry is been negative. EKG showed normal sinus rhythm with new inverted anterior T waves. I explained my concern to the patient and her family regarding the new EKG findings, recent acute heart failure, and non-ST elevation myocardial infarction. Objective: Vital Signs Temp Pulse Resp BP Pulse Ox 98.0 F 68 17 161/83 H 96 05/10/18 08:12 05/10/18 08:12 05/10/18 08:12 05/10/18 08:12 05/10/18 08:12 Oxygen Flow Rate (L/min) 2 Oxygen Delivery Method Room Air Weight: 143 lb 15.39 oz Body Mass Index (BMI) 28.7 Finger Stick Blood Glucose 164 Intake and Output for Last 24 Hours 05/08/18 05/09/18 05/10/18 23:59 23:59 23:59 Intake Total 720 / 720 980 / 980 Output Total 1025 / 1025 500 / 500 700 / 700 Balance -305 / -305 480 / 480 -700 / -700 General: Awake, Alert, Oriented x 3 HEENT: PERRL, EOMI, Sclera Non Icteric Neck: Supple, Good ROM, No Lymph Node Enlargement Lungs: Clear to auscultation Cardiovascular: Regular Rhythm, Normal S1, Normal S2, No Murmurs, No Rubs, No Gallops Vascular: No Carotid Bruits, Normal Femoral Pulses, Normal Radial Pulses, Normal Dorsalis Pedal Pulse, Normal Posterior Tibial Pulses Abdomen: Bowel Sounds Present, Soft, Non Tender, No HSM, No Organomegaly Extremities: No Cyanosis, No Clubbing, No edema Neurological: No Focal Motor or Sensory Deficit 05/10/18 05:05: Sodium 141, Potassium 3.7, Chloride 104, Carbon Dioxide 28.0, Anion Gap 9, BUN 18, Creatinine 0.68, Est GFR (MDRD) Af Amer 107, Est GFR (MDRD) Non-Af 88, BUN/Creatinine Ratio 26.6 H, Glucose 224 H, Calcium 8.7 05/10/18 05:05: WBC 7.9, RBC 4.16 L, Hgb 11.6 L, Hct 36.1 L, MCV 86.8, MCH 27.9, MCHC 32.1, RDW 12.4, RDW Differential 38.3, Plt Count 214, MPV 10.8, Immature Gran % (Auto) 0.300, Neut % (Auto) 54.7, Lymph % (Auto) 27.9, [place] % (Auto) 11.6 H, Eos % (Auto) 5.0, Baso % (Auto) 0.5, Absolute Neuts (auto) 4.3, Total Counted Not Reportable 05/10/18 05:05: PT 12.8, INR 1.0, APTT 36.0 Rhythm: EKG: ECHO: Stress Test: Cardiac Cath: PCI: CT Surgery: Holter monitor: EPS: PPM: CXR: Chest CT Scan: Medical Necessity - Tobacco Use Smoking Status: Never smoker Assessment/Plan 1. Coronary artery disease: Patient presented with acute respiratory distress on the day of discharge from a elective left carotid endarterectomy, in which her Plavix was held 3 days prior. Patient is responded well to IV diuretic therapy. Her congestive heart failure may have been a result of IV fluid administration during her carotid endarterectomy, as well as her mild aortic stenosis which may have contributed to her symptoms and elevated LV end-diastolic pressure. In addition she has significant remaining LAD, diagonal, and left circumflex disease that may have also contributed to her congestive heart failure and mild troponin release. Finally, she had significant hypertension which may have markedly increased wall stress and decreased coronary perfusion. Patient was reestablished on her dual antiplatelet therapy of aspirin and Plavix, and has done very well over the weekend. She has had no chest pain symptoms, and her blood pressure has improved but still not optimized. Recommended increasing her Lopressor to 25 mg p.o. twice daily, and now increasing her Imdur to 60 mg p.o. twice daily. In addition recommending Lasix 40 mg p.o. daily going forward to avoid recurrent CHF exacerbations. After a long and thorough discussion with the patient and her family members, and explained to them the risks/benefits of diagnostic coronary angiogram, coronary angioplasty, extensive nature of her previously known LAD, diagonal and left circumflex disease, and informing the patient and her family that her recent myocardial infarction puts her at high risk for future myocardial infarctions without further intervention, the patient and her family have decided to hold off on repeat catheterization and possible angioplasty at this time. I informed the patient and her family that the patient may have angina at home, or other subtle nontraditional symptoms such as shortness of breath, fatigue, palpitations, lightheadedness or dizziness. Once again the patient and her family wish to proceed with medical management. We will make arrangements for the patient to return in 1-2 weeks time for a blood pressure check to ensure that her blood pressure is optimized. Should the patient have deteriorating symptoms, or change her mind we will be happy to proceed with left heart catheterization to update the coronary anatomy and evaluate her to RCA stents placed in June 2016. 2. Aortic stenosis: Repeat echo showed intact LV function with an EF of 65%, mild aortic stenosis and mild aortic insufficiency. Her aortic stenosis was mild in June 2016. She also had 1+ aortic insufficiency. RVSP was 34 mmHg. 3. Hypercholesterolemia: Unfortunately the patient is unable to tolerate statins. 4. Thank you very much for the opportunity to precipitate in the cardiac care of your patient. Patient may be discharged home and follow-up with Dr. Dawson going forward. She will follow-up in our office in 1-2 weeks time for a blood pressure check, followed by see me in the office sooner than her July 2018 appointment. Code Visit Inpatient E&M: 50018 Subs Hosp L2
[2018-05-10] MEDS: Insulin Lispro 100 UNIT/ML INSULN.PEN SC (09:59)
[2018-05-10] MEDS: Furosemide 40 MG Tablet PO (09:59)
[2018-05-10 10:11] LABS: Bedside Glucose 225 mg/dL (70-110)
--- NOTE | 2018-05-10 10:44 | PN_ITS ---
Progress Note Patient is scheduled for a blood pressure check with Joselo Webber, Nurse Practitioner, at the [facility] on 05/17/2018 at 11:00. She is also scheduled to see Dr. Dawson in office on 06/07/2018 at 9:30 for further evaluation.
[2018-05-10] MEDS: Ipratropium/Albuterol Sulfate 3 ML AMPUL.NEB INHALATION (11:08)
--- NOTE | 2018-05-10 11:44 | DCINST_ITS ---
- Discharge Diagnoses Current Active Problems: Current Active and Chronic Problems (Last Reviewed 05/07/18 @ 03:25 by Gutierrez Ron MD) Pneumonia (Acute) Sepsis (Acute) Respiratory failure (Acute) Elevated troponin (Acute) Hypoxemia (Acute) Community acquired pneumonia (Acute) You will use the following diet at home:: Calorie/Carbohydrate Controlled (specify 1200, 1400, etc) - 1800, Cardiac Your food should be the consistency of: Regular Discharge Activity: Return to Normal Activity Call your doctor if your incision/area has: Sudden Increased Bleeding, Increased Redness Call your doctor if you observe: Fever of 101 or Higher, Shortness of breath, Dizziness, Fainting spells, Chest pain, Increased palpitations (irregular heartbeat) Allergies/Adverse Reactions: Allergies rosuvastatin Adverse Reaction (Verified 05/06/18 18:26) myalgia Medications to take at Discharge Nitroglycerin [Nitrostat] 0.4 mg SUBLINGUAL Q5M PRN #20 tab 07/11/16 sertraline 50 mg tablet 50 mg PO QHS 03/09/17 Aspirin E.C. [Ecotrin] 81 mg PO DAILY@0800 04/28/18 Acetaminophen [Tylenol] 650 mg PO PRN PRN 05/06/18 Simvastatin [Zocor] 40 mg PO DAILY 05/06/18 Clopidogrel Bisulfate [Plavix] 75 mg PO DAILY #60 tablet 05/10/18 Furosemide [Lasix] 40 mg PO DAILY #60 tablet 05/10/18 Isosorbide Mononitrate [Imdur] 60 mg PO BID #120 tablet 05/10/18 Metformin HCl 500 mg PO BID #120 tab 05/10/18 Metoprolol Tartrate [Lopressor (beta juan)] 25 mg PO BID #120 tablet 05/10/18 The following prescriptions were given: Clopidogrel Bisulfate [Plavix] 75 mg PO DAILY #60 tablet Furosemide [Lasix] 40 mg PO DAILY #60 tablet Isosorbide Mononitrate [Imdur] 60 mg PO BID #120 tablet Metformin HCl 500 mg PO BID #120 tab Metoprolol Tartrate [Lopressor (beta juan)] 25 mg PO BID #120 tablet Primary Care Physician: Murphy Burton DO [Primary Care Provider] - Please follow up with your Primary Care Physician in: 3-5 days Test Results: Test results from this visit will be discussed in further detail at your follow- up appointment, if applicable. Please Follow Up With: Dontrell Dawson MD When: 1 week Please Follow Up With: Murphy Burton DO Proposed Discharge Date: 05/10/18
--- NOTE | 2018-05-10 11:44 | PCM.DC.SUM ---
Discharge Date and Diagnosis - Problem List Patient Problems: Active and Suspected Problems (Last Reviewed 05/07/18 @ 03:25 by Gutierrez Ron MD) Pneumonia (Acute) Sepsis (Acute) Respiratory failure (Acute) Elevated troponin (Acute) Hypoxemia (Acute) Community acquired pneumonia (Acute) Date of Admission: 05/06/18 Date of Discharge: 05/10/18 - Primary Discharge Diagnosis Active and Suspected Problems (Last Reviewed 05/07/18 @ 03:25 by Gutierrez Ron MD) Respiratory failure (Acute) Elevated troponin (Acute) Hypoxemia (Acute) - Secondary Discharge Diagnosis Chronic Problems (Last Reviewed 05/07/18 @ 03:25 by Gutierrez Ron MD) Aortic stenosis (Chronic) H/O right coronary artery stent placement (Chronic ~07/10/16) PCI-HIRAL-RCA 3.5 x 12 mm Synergy 07/10/16 Atherosclerotic heart disease of [place] coronary artery without angina pectoris (Chronic) PCI-HIRAL-RCA 3.5 x 12 mm Synergy 07/10/16 HTN (hypertension) (Chronic) HLD (hyperlipidemia) (Chronic) Occlusion and stenosis of right carotid artery (Chronic) PAD (peripheral artery disease) (Chronic) Hospital Course and Treatment Imaging Results: Clinical Impression(s) from Imaging Studies Chest CTA 05/06/18 18:58 IMPRESSION: 1. No evidence of pulmonary embolism or aortic dissection. 2. Left upper lobe basilar segment airspace disease with peribronchial edema versus inflammation. Bilateral basilar peribronchial edema versus inflammation with scattered early patchy airspace disease and small bilateral effusions. Electronically Signed: Deshawn Tellez DO at 20:16 EST , Service support , Summary of Care Provided: The patient is a 83 year old F with past medical history is again for hypertension dyslipidemia aortic stenosis with recent left carotid endarterectomy on 05/05/2018 discharged home on 05/06/2018 who presented on 05/07/2018 with progressive shortness of breath and assessment of acute hypoxic respiratory failure secondary to CHF made admitted to a monitored bed for subsequent management 1. Acute hypoxic respiratory failure secondary to acute diastolic CHF 2. Acute CHF diastolic (heart failure with preserved ejection fraction). Patient 2D echo obtained during her stay demonstrated EF of 65% with grade 1 diastolic dysfunction. Patient was managed with Lasix 3. Elevated troponin consistent with acute non-STEMI cardiology was consulted patient was seen by Dr. Dawson patient and family were offered the option for patient undergo left heart catheterization with possible intervention patient and family however declined he opted for optimization of medical therapy 4. CAD with previous stent placement 5. Hypertension: Blood pressure stable did continue with home meds 6. Aortic stenosis echo obtained demonstrated mild aortic stenosis and mild aortic insufficiency. 7. Dyslipidemia-patient is on statin therapy, continued at home dose 8. New onset diabetes mellitus type 2 patient had apparently been prescribed anti-diabetic medications by PCP however she never filled the prescription. AMI 500 mg p.o. twice daily D was written on discharge 9. Depression patient is on SSRI 10. DVT prophylaxis SC heparin Sepsis was ruled out Pneumonia was ruled out Patient Problems: Active and Suspected Problems (Last Reviewed 05/07/18 @ 03:25 by Gutierrez Ron MD) Pneumonia (Acute) Sepsis (Acute) Respiratory failure (Acute) Elevated troponin (Acute) Hypoxemia (Acute) Community acquired pneumonia (Acute) - Physical Exam General: Alert HEENT: Atraumatic Lungs: Diminished Cardiovascular: Regular rate, Regular Rhythm Vital Signs Temp Pulse Resp BP Pulse Ox 98.0 F 76 20 H 161/83 H 96 05/10/18 08:12 05/10/18 11:09 05/10/18 11:09 05/10/18 08:12 05/10/18 08:12 Oxygen Flow Rate (L/min) 2 Oxygen Delivery Method Room Air Weight: 65.3 kg Body Mass Index (BMI) 28.7 Finger Stick Blood Glucose 164 Intake and Output for Last 24 Hours 05/08/18 05/09/18 05/10/18 23:59 23:59 23:59 Intake Total 720 / 720 980 / 980 Output Total 1025 / 1025 500 / 500 700 / 700 Balance -305 / -305 480 / 480 -700 / -700 Microbiology Past 72 Hours 05/06/18 20:58 Blood Culture - Preliminary Blood Culture (Wb) - Anticubital Left No growth in 48 hours. 05/06/18 20:45 Blood Culture - Preliminary Blood Culture (Wb) - Anticubital Right No growth in 48 hours. 05/07/18 12:21 Gram Stain - Final Sputum, Expectorated/Coughed Respiratory Culture - Final Mixed normal respiratory eric. No Streptococcus pneumoniae, beta-hemolytic Streptococcus or Staphylococcus aureus isolated. 05/07/18 06:50 Respiratory Panel (PCR) - Final Mucosa - Nasopharyngeal Laboratory Tests Past 24 Hrs 05/10/18 05/10/18 05/10/18 05:05 05:05 05:05 WBC 7.9 RBC 4.16 L Hgb 11.6 L Hct 36.1 L MCV 86.8 MCH 27.9 MCHC 32.1 RDW 12.4 RDW Differential 38.3 Plt Count 214 MPV 10.8 Immature Gran % (Auto) 0.300 Neut % (Auto) 54.7 Lymph % (Auto) 27.9 [place] % (Auto) 11.6 H Eos % (Auto) 5.0 Baso % (Auto) 0.5 Absolute Neuts (auto) 4.3 Absolute Lymphs (auto) 2.21 Total Counted Not Reportable PT 12.8 INR 1.0 APTT 36.0 Sodium 141 Potassium 3.7 Chloride 104 Carbon Dioxide 28.0 Anion Gap 9 BUN 18 Creatinine 0.68 Estim Creat Clear Calc 30.62 Est GFR (MDRD) Af Amer 107 Est GFR (MDRD) Non-Af 88 BUN/Creatinine Ratio 26.6 H Glucose 224 H Calcium 8.7 POC Glucose 05/10/18 05/10/18 05/09/18 09:55 06:57 22:02 POC Glucose 225 H 192 H 269 H 05/09/18 16:31 POC Glucose 310 H Discharge Diet: Low fat/ Low Cholesterol, 1999 Calorie Control Diet, 8 Cup Fluid Restriciton Discharge Activity: Return to Normal Activity Call your doctor if your incision/area has: Sudden Increased Bleeding, Increased Redness Call your doctor if you observe: Fever of 101 or Higher, Shortness of breath, Dizziness, Fainting spells, Chest pain, Increased palpitations (irregular heartbeat) Home Medications: Medications to take at Discharge Nitroglycerin [Nitrostat] 0.4 mg SUBLINGUAL Q5M PRN #20 tab 07/11/16 sertraline 50 mg tablet 50 mg PO QHS 03/09/17 Aspirin E.C. [Ecotrin] 81 mg PO DAILY@0800 04/28/18 Acetaminophen [Tylenol] 650 mg PO PRN PRN 05/06/18 Simvastatin [Zocor] 40 mg PO DAILY 05/06/18 Clopidogrel Bisulfate [Plavix] 75 mg PO DAILY #60 tablet 05/10/18 Furosemide [Lasix] 40 mg PO DAILY #60 tablet 05/10/18 Isosorbide Mononitrate [Imdur] 60 mg PO BID #120 tablet 05/10/18 Metformin HCl 500 mg PO BID #120 tab 05/10/18 Metoprolol Tartrate [Lopressor (beta juan)] 25 mg PO BID #120 tablet 05/10/18 Following Prescrptions Were Given to Patient: Clopidogrel Bisulfate [Plavix] 75 mg PO DAILY #60 tablet Furosemide [Lasix] 40 mg PO DAILY #60 tablet Isosorbide Mononitrate [Imdur] 60 mg PO BID #120 tablet Metformin HCl 500 mg PO BID #120 tab Metoprolol Tartrate [Lopressor (beta juan)] 25 mg PO BID #120 tablet Primary Care Physician: Murphy Burton DO [Primary Care Provider] - Please follow up with your Primary Care Physician in: 3-5 days Please Follow Up With: Dontrell Dawson MD When: 1 week Please Follow Up With: Murphy Burton DO Medical Necessity - Tobacco Use Smoking Status: Never smoker Meaningful Use Info Meaningful Use Diagnoses (Choose all that apply): CHF - CHF WILLIAM/ARB ordered at discharge?: Yes Reason WILLIAM/ARB not ordered?: Worsening renal dysfunctn Documented LVEF (%): 65 Code Visit Inpatient E&M: 79117 Disch Hosp
[2018-05-11 06:05] LABS: IPAP 0; PEEP 5
--- NOTE | 2018-05-11 14:16 | CASEMGMT ---
FRANCISCO CM DC Phone Call DC DATE: 05/10/18 DC Disposition: home LACE/STRATA: 03/02 Message left on with call back information if questions re: f/u, prescriptions or dc instructions. Freddy MENDEZN RN ACM
== END 2018-05-10 14:24 | disposition home or self-care (01) | DRG 280 ==
LOC: ED 20:54 → ICU 22:08 → PCU 05-07 14:52
PROVIDERS: Family Medicine; Internal Medicine Cardiovascular Disease; Internal Medicine Critical Care Medicine; Admitting Provider Hospitalist; Emergency Provider Emergency Medicine; Family Provider Family Medicine; PCP Family Medicine; Referring Provider Hospitalist; Visit Provider Internal Medicine
DX: I11.0 Hypertensive heart disease with heart failure (principal); J96.01 Acute respiratory failure with hypoxia; I21.4 Non-ST elevation (NSTEMI) myocardial infarction; I50.31 Acute diastolic (congestive) heart failure; I25.10 Atherosclerotic heart disease of native coronary artery without angina pectoris; E78.5 Hyperlipidemia, unspecified; E11.9 Type 2 diabetes mellitus without complications; F32.9 Major depressive disorder, single episode, unspecified; I35.0 Nonrheumatic aortic (valve) stenosis; I73.9 Peripheral vascular disease, unspecified; Z86.73 Personal history of transient ischemic attack (TIA), and cerebral infarction without residual deficits; Z95.5 Presence of coronary angioplasty implant and graft; Z98.890 Other specified postprocedural states
CPT/HCPCS: 36415; 36600; 71275; 80048; 82803; 82962; 83605; 84484; 85025; 85610; 85730; 87040; 87070; 87205; 87449; 87633; 87641; 93005; 93306; 94640; 94660; 94668; 97110; 97162; 97165; 97530; 97802; 97803; 99283; J7030; J7040; Q9967; A4216; C8929; J1940

== ENCOUNTER → 2018-06-07 10:06 | Outpatient (CLI) | payer SELFPAY ==
[2016-07-10 14:12] VITALS: BMI 23.1
[2018-05-17 13:39] VITALS: BMI 27.3
[2018-06-07 09:33] VITALS: BMI 28.5
--- NOTE | 2018-06-07 10:19 | CDUL_ITS ---
Reason For Study: Carotid stenosis Lt. Velocities/BP Prox CCA 96.7/21.1 cm/sec. Mid CCA 82.1/18.2 cm/sec. Dist CCA 125.0/32.2 cm/sec. Prox ICA 120.0/25.1 cm/sec. Mid ICA 87.1/21.5 cm/sec. Dist ICA 165.0/50.0 cm/sec. Lt. ICA/CCA = 165.0/82.1=2.0. Prox ECA 98.2/3.14 cm/sec. Lt. Vert. 120.0/40.6 cm/sec. Left Extracranial There is heterogeneous, irregular atherosclerotic plaque noted in the left common carotid artery. There is heterogeneous, smooth atherosclerotic plaque noted in the left internal carotid artery. The tortuous nature of the left internal carotid artery may result in flow velocities overestimating the degree of stenosis. There is heterogeneous, irregular atherosclerotic plaque noted in the left external carotid artery. Elevated systolic flow noted in left vertebral artery. Procedure Carotid Duplex 81989. Unilateral left carotid duplex study. The exam was diagnostic. Exam performed in department. Interpretation Summary Post operative changes left carotid bulb and proximal internal carotid with <50% stenosis of the internal carotid. Tortuous distal left internal carotid making velocity evaluation difficult. Normal flow left external carotid Smooth plague distal left common carotid >50% stenosis left vertebral Ordering Physician: Harinder Barreto Referring Physician: Murphy Burton Performed By: Mayra Lovell, CHACHA, RVT
== END ==
PROVIDERS: Family Provider Family Medicine; PCP Family Medicine; Referring Provider Surgery; Visit Provider Surgery
DX: Z98.890 Other specified postprocedural states (principal)
CPT/HCPCS: 93882

== ENCOUNTER → 2019-05-20 | Outpatient (CLI) | payer SELFPAY ==
[2016-07-10 14:12] VITALS: BMI 23.1
[2018-10-06 13:58] VITALS: BMI 27.2
--- NOTE | 2019-05-20 09:43 | CDU_ITS ---
Reason For Study: Stenosis Rt. Velocities/BP Lt. Velocities/BP Prox CCA 61.9/6.9 cm/sec. Prox CCA 64.5/10.7 cm/sec. Mid CCA 64/10.2 cm/sec. Mid CCA 93.7/16.8 cm/sec. Dist CCA 76.1/7.7 cm/sec. Dist CCA 122/15.1 cm/sec. Prox ICA 70.6/7.7 cm/sec. Prox ICA 191.6/44.5 cm/sec. Mid ICA 58.1/12.6 cm/sec. Mid ICA 160.9/33.6 cm/sec. Dist ICA 87.6/18.8 cm/sec. Dist ICA 104.7/24.3 cm/sec. Rt. ICA/CCA = 1.4. Lt. ICA/CCA = 2.0. Prox ECA 133.9 cm/sec. Prox ECA 139.4 cm/sec. Rt. Vert. 36.2 cm/sec. Lt. Vert. 122.9/33.4 cm/sec. Right Extracranial There is homogeneous, smooth atherosclerotic plaque noted in the right common carotid artery. There is heterogeneous, irregular atherosclerotic plaque noted in the right internal carotid artery. There is homogeneous, smooth atherosclerotic plaque noted in the right external carotid artery. Antegrade flow is noted in the right vertebral artery. Left Extracranial There is heterogeneous, smooth atherosclerotic plaque noted in the left common carotid artery. There is heterogeneous, irregular atherosclerotic plaque noted in the left internal carotid artery. There is homogeneous, irregular atherosclerotic plaque noted in the left external carotid artery. Antegrade flow is noted in the left vertebral artery. Procedure Carotid Duplex [id number]. Exam performed in department. Interpretation Summary Minimal irregular plaque distal right common carotid and proximal right internal carotid artery with less than 50% stenosis of the right internal carotid artery Postoperative changes noted <50% stenosis right external carotid Minimal irregular plaque at the proximal left internal carotid with 50 to 69% stenosis of the internal carotid based upon velocities though tortuosity and postoperative carotid bulb diameter change may be responsible for the velocity difference. No change from 06/07/18. <50% stenosis left external carotid Patent right vertebral >50% stenosis left vertebral Ordering Physician: Harinder Barreto Referring Physician: Murphy Burton Performed By: Karolina Eddy RVT
== END | disposition home or self-care (01) ==
LOC: CVS 09:43
PROVIDERS: PCP Family Medicine; Referring Provider Surgery; Visit Provider Surgery
DX: I65.23 Occlusion and stenosis of bilateral carotid arteries (principal)
CPT/HCPCS: 93880

== ENCOUNTER 2020-12-11 21:28 | Observation (INO) | payer OTHER, SELFPAY ==
[2016-07-10 14:12] VITALS: BMI 23.1
[2020-12-11] VITALS (8 sets, daily range): BP systolic 189–239; BP diastolic 60–92; PULSE 57–68; RESP 16–18; TEMP 36.1; O2SAT 94–98; BMI 27.1; BMI 26.5
--- NOTE | 2020-12-11 21:35 | EKG12_ITS ---
Test Reason : DYSRHYTHMIA Blood Pressure : / mmHG Vent. Rate : 064 BPM Atrial Rate : 064 BPM P-R Int : 138 ms QRS Dur : 092 ms QT Int : 416 ms P-R-T Axes : 048 046 019 degrees QTc Int : 429 ms Sinus rhythm with Premature atrial complexes Otherwise normal ECG Confirmed by CHIVO MELENDEZ, CONNOR ([id number]), editorial writer ERNESTINA GARCIA ([id number]) on 12/12/2020 1:25:59 PM Referred By: BB Confirmed By:CONNOR WALDRON MD
--- NOTE | 2020-12-11 21:40 | CT_ITS ---
We are attempting to reach an attending provider to discuss findings. An addendum with communication details will be sent when the communication is complete. HISTORY: Neuro deficit, acute, stroke suspected TECHNIQUE: Multiple axial images were obtained of the brain without intravenous contrast. A radiation dose optimization technique was used for this scan. IV Contrast dosage and agent: None. COMPARISON: None FINDINGS: # of images incl. paperwork: 251 PARANASAL SINUSES AND MASTOID AIR CELLS: Clear. INTRACRANIAL HEMORRHAGE: None. BRAIN PARENCHYMA: No CT evidence of acute territorial infarction. High right posterior parietal encephalomalacia from chronic CVA. No intracranial masses. Posterior fossa structures are unremarkable. There is hypoattenuation of the periventricular white matter. Chronic involutional changes are noted. CSF SPACES: Appropriate for age. There is no hydrocephalus. MASS EFFECT: None. CALVARIUM: No acute fracture. CT/STROKE Brain/Head without Cont IMPRESSION: Chronic involutional and white matter changes. No acute intracranial process. Individualized dose optimization techniques were used for this CT. at 2159 Reported and signed by: Sam Reed MD Electronically Signed: Sam Reed MD at 21:58 EDT Tel , Service support ,
[2020-12-11 21:41] LABS: Bedside Glucose 132 mg/dL (70-110)
[2020-12-11 21:48] LABS: Absolute Lymphocyte Count 2.54 X10^3/uL (0.83-4.51); Absolute Neutrophil Count 4.1 X10^3/uL (2.0-7.7); Basophil# 0.05 X10^3/uL; Basophil% 0.6 % (0-1); Eosinophil# 0.27 X10^3/uL; Eosinophils% 3.5 % (0-5); Hematocrit 42.3 % (37-47); Lymphocyte # 2.54 X10^3/ul (0.83-4.51); Lymphocyte % 32.5 % (19-41); Mean Corp Hgb Conc 33.1 g/dL (32-36); Mean Corpuscular Hgb 28.7 pg (27.0-32.0); Mean Corpuscular Volume 86.9 fL (81-99); Mean Platelet Vol. 9.9 fl (6.2-12.0); Monocyte# 0.87 X10^3/uL; Monocyte% 11.1 % (0-10); NRBC Flagged by Analyzer 0 % (0-5); Neutrophil # 4.06 X10^3/uL (2.7-7.7); Platelet Count 239 K/mm3 (150-450); RBC Distribution Width CV 12.6 % (11.6-14.6); RBC Distribution Width SD 39.9 fl (35.1-43.9); Red Blood Count 4.87 M/mm3 (4.2-5.4); White Blood Count 7.8 K/mm3 (4.4-11.0)
[2020-12-11 21:57] LABS: International Normalized Ratio 0.9
[2020-12-11 21:58] LABS: Partial Thromboplast Time 26.5 Seconds (24.1-36.2)
--- NOTE | 2020-12-11 22:02 | EDS_ITS ---
HPI History of Present Illness Chief Complaint: Neuro S/Sx Informant: patient Onset/Context/Timing Onset: Today Context: - (Unclear onset) Timing: Intermittent and Lasts (10 minutes or less) Quality and Location: Positive for - (Facial droop, distal left upper extremity numbness and weakness) Current Severity: Gone Maximum Severity: Moderate Worsened by: Nothing Relieved by: Nothing in particular Associated Symptoms Associated Symptoms: Positive for Headache (Mild earlier not present now); Negative for Nausea, Vomiting and Chest Pain Narrative Narrative: 85-year-old patient with a history of stents in her heart and peripheral arterial disease status post carotid endarterectomies on both sides remotely taking aspirin and clopidogrel recently missing several doses although taking them yesterday and today presented with intermittent facial droop and trouble speaking today she does not know which side the facial droop was on she was told by her daughter it was there. However, she does not know exactly when the onset was because she only noticed something was wrong when she went to speak to someone. She did think she felt a little funny but did not notice palpitations, near-syncope, or loss of consciousness at all. She currently feels well and is symptom-free. She denies history of Covid nor has she been va ccinated. No known contact with anyone with Covid recently. [facility] Medical History Aortic valve disorders Atherosclerotic heart disease of [place] coronary artery without angina pectoris Carotid stenosis, left Essential hypertension HLD (hyperlipidemia) Nonrheumatic aortic (valve) stenosis Nonrheumatic mitral (valve) insufficiency Occlusion and stenosis of left carotid artery Occlusion and stenosis of right carotid artery PAD (peripheral artery disease) Presence of stent in coronary artery (~07/10/16) Home Medications nitroglycerin 0.4 mg SUBLINGUAL Q5M PRN #20 tab 07/11/16 [Rx Last Taken Unknown] aspirin 81 mg PO DAILY@0800 04/28/18 [History Last Taken 05/06/18] metformin 500 mg PO BID #120 tab 05/10/18 [Rx Last Taken Unknown] metoprolol tartrate 25 mg tablet 12.5 mg PO BID #90 tab 06/12/20 [Rx Last Taken Unknown] lisinopril 5 mg tablet 5 mg PO DAILY #90 tab 08/11/21 [Rx Last Taken Unknown] sertraline 50 mg tablet 25 mg PO QHS tab 11/07/20 [History Last Taken Unknown] clopidogrel 75 mg tablet 75 mg PO DAILY #90 tab 11/12/20 [Rx Last Taken Unknown] Allergy/AdvReac Type Severity Reaction Status Date / Time rosuvastatin AdvReac Severe Myalgias Verified 12/11/20 21:29 simvastatin AdvReac Severe myalgias Verified 12/11/20 21:29 Family History Father CAD (coronary artery disease) Hypertension Sister CVA (cerebral vascular accident) Diabetes Arthritis Mother Cancer Thyroid Surgical History History of CEA (carotid endarterectomy) (~2010) History of hysterectomy History of left-sided carotid endarterectomy (05/05/17) Presence of coronary angioplasty implant and graft (~07/10/16) Social History Smoking Status: Never smoker second hand exposure: No alcohol intake: never substance use type: does not use caffeine: No ROS ROS ED Constitutional Constitutional ED: Denies chills or fever(s) Eyes Eyes: Denies change in vision or diplopia ENT ENT ED: Denies rhinorrhea or sore throat Cardiovascular Cardiovascular: Denies chest pain or palpitations Respiratory/Chest Respiratory/Chest: Denies cough or dyspnea Gastrointestinal Gastrointestinal: Denies abdominal pain, diarrhea, nausea or vomiting Genitourinary Genitourinary ED: Denies dysuria or hematuria Musculoskeletal Musculoskeletal: Denies back pain or neck pain Integumentary Denies abscess or rash Neurologic Neurologic: Reports as per HPI, headache(s), paresthesias and weakness Psychiatric Psychiatric: Denies anxiety or suicidal thoughts EXAM Physical Exam Const Vital Signs: 12/11/20 21:29 12/11/20 22:00 12/11/20 22:20 Temperature 97.0 F L Temperature Source Temporal Pulse Rate 66 68 61 Respiratory Rate 16 16 17 Blood Pressure 225/84 H 239/75 H 213/90 H Blood Pressure Mean 131 129 131 Pulse Ox 98 94 96 Oxygen Delivery Method Room Air Room Air Room Air Positive well nourished and well developed General Appearance ED: well developed and NAD HEENT Reports moist mucous membranes normocephalic and atraumatic Eyes PERRL and EOMs intact bilaterally Neck full ROM and supple Resp normal respiratory effort and clear to auscultation bilaterally Cardio regular rate, regular rhythm and no murmurs GI non-tender and non-distended Auscultation: normoactive bowel sounds Palpation: soft Back/Spine no CVA tenderness General Back: other FROM Extremity normal to inspection General Extremety ED: Negative for edema, pulses abnormal or tenderness General Extremity: Negative for edema or pulses abnormal Neuro oriented x3, CN's II-XII intact bilaterally and no sensory deficits noted Sensorium / Orientation: awake and alert Motor Exam: strength 5/5 throughout Skin no rashes or lesions noted and no wounds STROKE Vital Signs/Narrative: Vital Signs Temp Pulse Resp BP Pulse Ox 12/11/20 22:20 61 17 213/90 H 96 12/11/20 22:00 68 16 239/75 H 94 12/11/20 21:29 97.0 F L 66 16 225/84 H 98 NIHSS Initial: 1a Level of Consciousness: 0 1b LOC Questions (Score 2 if aphasic/stupor): 0 1c LOC Commands (Only score 1st attempt): 0 2 Best Gaze (If aphasic, use reflexive mvmts.): 0 3 Visual: 0 4 Facial Palsy: 0 5 Motor Arm Right (UN = amputation/fusion): 0 5 Motor Arm Left: 0 6 Motor Leg Right: 0 6 Motor Leg Left: 0 7 Limb ataxia (Only + if out of proportion): 0 8 Sensory (Aphasia/stupor=0 or 1, coma=2): 0 9 Best Language: 0 10 Dysarthria (mute, coma=2, intubated=UN): 0 11 Extinction and Inattention (only scored if +): 0 Total Score: 0 MDM MDM MDM Narrative Medical decision making narrative: Patient was given labetalol for her pressure, which we are closely monitoring. Her NIHSS is 0, she did not have any recurrence of neurologic symptoms while in the emergency department. Her work- up below was noted and is negative. Her EKG shows a sinus rhythm. She took her aspirin and clopidogrel this morning. I am concerned about recurrent TIAs today. Patient states she was scheduled for an outpatient echocardiogram tomorrow here at this hospital, and since I recommend admitted, she will likely be able to get that while admitted and needs it as part of the stroke work-up anyway which I discussed with her. At 2300, blood pressure is down to 189/75 without further treatment. Lab Data Attestation: I reviewed the patient's lab results. Labs: Laboratory Results - last 24 hr 12/11/20 12/11/20 12/11/20 21:33 21:37 21:37 WBC 7.8 RBC 4.87 Hgb 14.0 Hct 42.3 MCV 86.9 MCH 28.7 MCHC 33.1 RDW Std Deviation 39.9 RDW Coeff of Jennifer 12.6 Plt Count 239 MPV 9.9 Immature Gran % (Auto) 0.300 Neut % (Auto) 52.0 Lymph % (Auto) 32.5 [place] % (Auto) 11.1 H Eos % (Auto) 3.5 Baso % (Auto) 0.6 Absolute Neuts (auto) 4.1 Absolute Lymphs (auto) 2.54 Nucleated RBC % 0 PT 12.0 INR 0.9 APTT 26.5 Sodium Potassium Chloride Carbon Dioxide Anion Gap BUN Creatinine Estim Creat Clear Calc Est GFR (MDRD) Af Amer Est GFR (MDRD) Non-Af BUN/Creatinine Ratio Glucose Calcium Troponin I High Sens POC Glucose 132 H 12/11/20 21:37 WBC RBC Hgb Hct MCV MCH MCHC RDW Std Deviation RDW Coeff of Jennifer Plt Count MPV Immature Gran % (Auto) Neut % (Auto) Lymph % (Auto) [place] % (Auto) Eos % (Auto) Baso % (Auto) Absolute Neuts (auto) Absolute Lymphs (auto) Nucleated RBC % PT INR APTT Sodium 141 Potassium 4.0 Chloride 107 Carbon Dioxide 28.0 Anion Gap 6 BUN 18 Creatinine 0.66 Estim Creat Clear Calc 39.54 Est GFR (MDRD) Af Amer 110 Est GFR (MDRD) Non-Af 91 BUN/Creatinine Ratio 27.4 H Glucose 147 H Calcium 9.4 Troponin I High Sens 12 POC Glucose Radiography Chest X-Ray - ED: 1 View, Read by ED Physician, No Acute Disease and Chronic Changes Diagnostic Testing: Radiology Impression Brain CT 12/11/20 21:40 IMPRESSION: Chronic involutional and white matter changes. No acute intracranial process. Individualized dose optimization techniques were used for this CT. at 2159 Reported and signed by: Sam Reed MD Electronically Signed: Sam Reed MD at 21:58 EDT Tel , Service support , ADDENDUM: 12/11/20 2212 IMPRESSION: Chronic involutional and white matter changes. No acute intracranial process. Individualized dose optimization techniques were used for this CT. at 2159 Reported and signed by: Sam Reed MD N.B. : The above Results were Read Back by Sam Reed MD to Dr. Mary MD, and understanding confirmed on 12/11/2020 22:05:13 (ET). Electronically Signed: Sam Reed MD at 21:58 EDT Tel , Service support , Chest X-Ray 12/11/20 22:19 IMPRESSION: No radiographic evidence of acute cardiopulmonary disease. at 2253 Reported and signed by: Sam Reed MD Electronically Signed: Sam Reed MD at 22:52 EDT Tel , Service support , EKG Initial EKG: Attestation: I personally reviewed and interpreted this EKG as follows: Interpretation: Sinus Rhythm and No Acute Injury Pattern (normal EKG) Prior EKG tracings: available for review Prior: Unchanged Stroke Documentation Questions Stroke Team Activated: No (sx resolved) Was Patient considered for Endovascular Intervention?: No IV Alteplase (t-PA) Administered: No (NIHSS 0) Discharge Plan Dx/Rx/DC Orders Clinical Impression: TIA (transient ischemic attack) Disposition Disposition: Acute Care Hospital [facility]
--- NOTE | 2020-12-11 22:19 | RAD_ITS ---
HISTORY: Neuro deficit, acute, stroke suspected EXAMINATION/TECHNIQUE: XR Chest 1 View: Portable upright AP chest x-ray COMPARISON: 07/08/16 FINDINGS: LINES/DEVICES: None. LUNGS: No consolidation, edema or effusion. MEDIASTINUM AND CARDIOVASCULAR STRUCTURES: Patient markedly rotated with distortion of the cardiomediastinal silhouette. Cardiac size upper normal limits. BONES AND SOFT TISSUES: No acute bony abnormalities. RAD/Chest 1 View IMPRESSION: No radiographic evidence of acute cardiopulmonary disease. at 2253 Reported and signed by: Sam Reed MD Electronically Signed: Sam Reed MD at 22:52 EDT Tel , Service support ,
[2020-12-11 22:22] LABS: Anion Gap 6 (5-15); BUN 18 mg/dL (7-18); BUN/Creat Ratio 27.4 RATIO (10-20); Calcium,Total 9.4 mg/dL (8.5-10.1); Chloride 107 mmol/L (98-107); Creatinine, Serum 0.66 mg/dL (0.55-1.02); EST Glomerular Filtration Rate 91 mL/min (>60); Est Glom Filt Rate - Afr Amer 110 mL/min (>60); Estimated Creatinine Clearance 39.54 ml/min; Glucose 147 mg/dL (74-106); Sodium Level 141 mmol/L (136-145); Troponin-I HS 12 pg/mL (3.0-54.0)
--- NOTE | 2020-12-11 23:08 | PCM.HP.STD ---
HPI - General General Date of Admission: 12/11/20 Date of Service: 12/11/20 Chief Complaint: Strokelike symptoms HPI Narrative SOPHIA PRATHER, is a 85 F with a significant history of CAD status post stents; hyperlipidemia; diabetes mellitus and hypertension who presents to emergency department with strokelike symptoms. She reported her strokelike symptoms as facial droop, left hand numbness and slurred speech. Further, she felt fatigued and different. Her symptoms started more than 3 hours before presentation. Her symptoms was transient and is located at x2 times. 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 [facility] Medical History Aortic valve disorders Atherosclerotic heart disease of [place] coronary artery without angina pectoris Carotid stenosis, left Coronary artery disease Depression Diabetes Essential hypertension HLD (hyperlipidemia) Hypertension Non-smoker Nonrheumatic aortic (valve) stenosis Nonrheumatic mitral (valve) insufficiency Occlusion and stenosis of left carotid artery Occlusion and stenosis of right carotid artery Osteoporosis PAD (peripheral artery disease) Presence of stent in coronary artery (~07/10/16) TIA (transient ischemic attack) Home Medications nitroglycerin 0.4 mg SUBLINGUAL Q5M PRN #20 tab 07/11/16 [Rx Last Taken Unknown] aspirin 81 mg PO DAILY@0800 04/28/18 [History Last Taken 05/06/18] sertraline 50 mg tablet 25 mg PO QHS tab 11/07/20 [History Last Taken Unknown] clopidogrel 75 mg tablet 75 mg PO DAILY #90 tab 11/12/20 [Rx Last Taken Unknown] lisinopril 5 mg PO DAILY 12/12/20 [History Last Taken Unknown] metformin 500 mg PO BID PRN 12/12/20 [History Last Taken Unknown] metoprolol tartrate 12.5 mg PO BID 12/12/20 [History Last Taken Unknown] Allergy/AdvReac Type Severity Reaction Status Date / Time rosuvastatin AdvReac Severe Myalgias Verified 12/11/20 21:29 simvastatin AdvReac Severe myalgias Verified 12/11/20 21:29 Family History Father CAD (coronary artery disease) Hypertension Sister CVA (cerebral vascular accident) Diabetes Arthritis Mother Cancer Thyroid Surgical History History of CEA (carotid endarterectomy) (~2010) History of hysterectomy History of left-sided carotid endarterectomy (05/05/17) Presence of coronary angioplasty implant and graft (~07/10/16) Social History Smoking Status: Never smoker second hand exposure: No alcohol intake: never substance use type: does not use caffeine: No ROS ROS Narrative Constitutional: Denies anorexia and change in weight Eyes: Denies blurry vision HEENT: Denies abnormal hearing, dysphagia, ear pain, epistaxis, headache(s), hearing loss, nasal congestion, nasal discharge, post nasal drip, sinus pressure, sore throat or other Cardiovascular: Denies chest pain or palpitations. Denies dyspnea on exertion, orthopnea and paroxysmal nocturnal dyspnea Respiratory/Chest: Denies cough, excessive phlegm production, shortness of breath with exertion and wheezing Gastrointestinal: Denies abdominal pain, coffee ground emesis, constipation, diarrhea, dyspepsia, hematemesis, hematochezia, loose stools, melena, nausea, vomiting or other Genitourinary: Denies burning urination, difficulty urinating, dysuria, hematuria, nocturia, urinary frequency, urinary hesitancy, urinary incontinence, urinary urgency or other Musculoskeletal: Denies arthralgias, back pain, joint pain, joint stiffness, joint swelling, myalgias, neck pain or other Neurologic: Reports numbness and slurry speech. Reports weakness in left hand. Denies abnormal gait, confusion, disequilibrium, dizziness, , headache(s), seizure-like activity, seizures, syncope, tremor(s) or other Psychiatric: Denies anxiety, depression, homicidal ideation, suicidal ideation or other Endocrinology: Denies change in body appearance, cold intolerance, excessive sweating, heat intolerance, polydipsia, polyuria or other Hematologic/Lymphatic: Denies anemia, easy bleeding, easy bruising, lymphadenopathy or other Integumentary: Denies rashes Allergic/Immunologic: Denies rhinitis, hives, eczema, asthma or other Vital Signs Vital Signs Vital Signs: 12/11/20 21:29 12/11/20 22:00 12/11/20 22:20 Temperature 97.0 F L Temperature Source Temporal Pulse Rate 66 68 61 Respiratory Rate 16 16 17 Blood Pressure 225/84 H 239/75 H 213/90 H Blood Pressure Mean 131 129 131 Pulse Ox 98 94 96 Oxygen Delivery Method Room Air Room Air Room Air Weight Weight: 60.9 kg Body Mass Index (BMI) 27.1 Physical Exam Narrative Physical exam: General: Well-nourished, well-developed. Head: Normocephalic, atraumatic, no tenderness Eyes: PERRLA, EOMI ENT, no trauma, moist mucous membranes, no rhinorrhea Neck: Nontender, full range of motion, no spinal tenderness, deformities, step-off CVS: Regular rate and rhythm. S1-S2 present. No murmur, gallop or rub. Respiratory : clear to auscultation bilaterally, chest wall nontender, no wheezing Abdomen: Soft, nontender, nondistended, normal bowel sounds, no masses : Deferred Back: Nontender, no CVA tenderness, no midline spinal tenderness, deformities, step-offs Extremities: Nontender full range of motion, no trauma Skin: Normal color, no trauma, abrasions Neuro: Alert, oriented, cranial nerves II through XII grossly intact. No dysmetria. Deep tendon reflexes 2 out of 4 throughout. Strength in right upper extremity 4 out of 5. Strength in right lower extremity 5 out of 5. Strength in left upper extremity 5 out of 5. Strength in left lower extremity 4 out of 5. No dysmetria. Psychiatry: Normal mood. Normal affect. Not depressed. Not anxious. Results Lab / Micro Data Result Diagrams: 12/11/20 21:37 12/11/20 21:37 Labs: Laboratory Results - last 24 hr 12/11/20 21:33: POC Glucose 132 H 12/11/20 21:37: WBC 7.8, RBC 4.87, Hgb 14.0, Hct 42.3, MCV 86.9, MCH 28.7, MCHC 33.1, RDW Std Deviation 39.9, RDW Coeff of Jennifer 12.6, Plt Count 239, MPV 9.9, Immature Gran % (Auto) 0.300, Neut % (Auto) 52.0, Lymph % (Auto) 32.5, [place] % (Auto) 11.1 H, Eos % (Auto) 3.5, Baso % (Auto) 0.6, Absolute Neuts (auto) 4.1, Absolute Lymphs (auto) 2.54, Nucleated RBC % 0 12/11/20 21:37: PT 12.0, INR 0.9, APTT 26.5 12/11/20 21:37: Sodium 141, Potassium 4.0, Chloride 107, Carbon Dioxide 28.0, Anion Gap 6, BUN 18, Creatinine 0.66, Estim Creat Clear Calc 39.54, Est GFR (MDRD) Af Amer 110, Est GFR (MDRD) Non-Af 91, BUN/Creatinine Ratio 27.4 H, Glucose 147 H, Calcium 9.4, Troponin I High Sens [address] 12/11/20 21:40 IMPRESSION: Chronic involutional and white matter changes. No acute intracranial process. Individualized dose optimization techniques were used for this CT. at 2159 Reported and signed by: Sam Reed MD Electronically Signed: Sam Reed MD at 21:58 EDT Tel , Service support , ADDENDUM: 12/11/20 2212 IMPRESSION: Chronic involutional and white matter changes. No acute intracranial process. Individualized dose optimization techniques were used for this CT. at 2159 Reported and signed by: Sam Reed MD N.B. : The above Results were Read Back by Sam Reed MD to Dr. Mary MD, and understanding confirmed on 12/11/2020 22:05:13 (ET). Electronically Signed: Sam Reed MD at 21:58 EDT Tel , Service support , Chest X-Ray 12/11/20 22:19 IMPRESSION: No radiographic evidence of acute cardiopulmonary disease. at 2253 Reported and signed by: Sam Reed MD Electronically Signed: Sam Reed MD at 22:52 EDT Tel , Service support , Assessment & Plan Assessment/Plan (1) TIA (transient ischemic attack): (2) Essential hypertension: (3) Diabetes mellitus, type 2: QUALIFIERS: Diabetes mellitus complication status: without complication Diabetes mellitus sexual assault counsellor insulin use: without sexual assault counsellor use Qualified Code(s): E11.9 - Type 2 diabetes mellitus without complications PLAN: TIA Serial NINDS NIH Scale ordered Impression of head CT by radiology: Chronic involutional and white matter changes. No acute intracranial process.CT of the head was independently reviewed and I agree with radiologist interpretation. -Check Hba1c, Lipid level. Physical therapy, occupational therapy and speech therapy to work with patient. N.p.o. until bedside swallow eval. Daily aspirin and Plavix continued. Cardiology notes on 11/07/2020 was reviewed. Reportedly patient cannot take statins secondary to myalgia. Of note for CAD with stent she should have been on a statin. Permissive hypertension. Control blood pressure with labetalol for systolic blood pressure of more than 220 or diastolic blood pressure of more than 120. Last echocardiogram on file was on 05/07/2018. Echocardiogram at that time showed estimated ejection fraction of 65% and stage I diastolic dysfunction. Echocardiogram ordered. Heart failure with preserved ejection fraction Stable CAD s/p stent Aspirin and Plavix continued Hold metoprolol and lisinopril second permissive hypertension. Diabetes mellitus Patient with hyperglycemia on presentation On med profile his Metformin as needed. Hold Metformin at this time. Accu-Chek QA CHS with correction scale insulin ordered. Hypertension Blood pressure is not within goal Hold home blood pressure medications secondary to permissive hypertension. As needed hydralazine IV and labetalol IV ordered to maintain permissive hypertension. Trend blood pressure and adjust blood pressure medications. Depression/anxiety Sertraline continued DVT prophylaxis: Charges/Coding Visit Charges OBSV E&M: 96282 Initial observation care L3
--- NOTE | 2020-12-11 23:52 | ECHOD_ITS ---
Reason For Study: TIA/CVA Procedure This was a 2D Doppler, Color Flow transthoracic echocardiogram. Bubble study performed. The study was technically difficult. Exam performed portable in patient room. Left Ventricle Normal LV size. Left ventricular systolic function is normal. The estimated ejection fraction is 65 %. No regional wall motion abnormalities noted. Right Ventricle Normal RV size. Normal systolic function. Atria The left atrium is mildly enlarged. Normal right atrium. No doppler evidence for ASD. Bubble contrast study negative for right to left interatrial shunt. Mitral Valve There is moderate mitral annular calcification. Extension of the mitral annular calcification onto the posterior mitral valve leaflet. Mild-Moderate mitral valve stenosis. Trivial mitral valve insufficiency. Tricuspid Valve Normal tricuspid valve. Trivial tricuspid valve insufficiency. Unable to estimate RV systolic pressure/pulmonary artery pressure due to technically difficult study. Aortic Valve Trisinus/trileaflet aortic valve. Mild diffuse aortic valve thickening. Mild diffuse aortic valve calcification. Moderate to severe aortic valve stenosis. Mild (1+) aortic valve insufficiency. Pulmonic Valve The pulmonic valve is not well visualized. Great Vessels The aortic root is not well visualized. Pericardium/Pleural No pericardial effusion. Medication Performed a rapid injection of agitated mix of 9 cc saline and 1cc air to assess for atrial septal defect. MMode/2D Measurements & Calculations LVIDd: 4.3 cm IVSd: 1.3 cm LVOT diam: 2.0 cm LVIDs: 2.5 cm LVPWd: 0.87 cm FS: 42.1 % LVOT area: 3.0 cm2 LA dimension: 4.0 cm LAV(MOD-bp): 54.9 ml LA A4 area: 18.6 cm2 LAV(MOD-bp) Indexed: 35.6 ml/m2 LAV(MOD-sp2): 59.1 ml LAV(MOD-sp4): 50.7 ml RA A4 area: 13.4 cm2 Time Measurements MV dec time: 0.25 sec Doppler Measurements & Calculations MV E max lorne: 136.4 cm/sec Lat Peak E' Lorne: 7.5 cm/sec Med Peak E' Lorne: 8.2 cm/sec MV A max lorne: 115.4 cm/sec E/E' lat: 18.2 E/E' med: 16.6 MV E/A: 1.2 MV V2 max: 135.3 cm/sec MV P1/2t max lorne: 135.3 cm/sec Ao V2 max: 336.0 cm/sec MV max P.3 mmHg MV P1/2t: 89.6 msec Ao max P.2 mmHg MV V2 mean: 71.3 cm/sec MV dec slope: 442.1 cm/sec2 Ao V2 mean: 242.9 cm/sec MV mean P.4 mmHg Ao mean P.2 mmHg MV V2 VTI: 45.1 cm MVA(P1/2t): 2.5 cm2 Ao V2 VTI: 86.3 cm MVA(VTI): 1.5 cm2 LIDIA(I,D): 0.81 cm2 LIDIA(V,D): 0.80 cm2 AI max lorne: 403.3 cm/sec LV V1 max: 90.1 cm/sec SV(LVOT): 69.6 ml AI max P.1 mmHg LV V1 max P.2 mmHg AI dec slope: 216.5 cm/sec2 LV V1 mean P.6 mmHg AI P1/2t: 545.7 msec LV V1 mean: 60.0 cm/sec LV V1 VTI: 23.3 cm PA V2 max: 93.2 cm/sec ECHO/Echo Complete Interpretation Summary The study was technically difficult. Left ventricular systolic function is normal. The estimated ejection fraction is 65 %. The left atrium is mildly enlarged. There is moderate mitral annular calcification. Extension of the mitral annular calcification onto the posterior mitral valve l eaflet. Mild-Moderate mitral valve stenosis. Trivial mitral valve insufficiency. Trivial tricuspid valve insufficiency. Moderate to severe aortic valve stenosis. Mild (1+) aortic valve insufficiency. Unable to estimate RV systolic pressure/pulmonary artery pressure due to techni rafael difficult study. Transmitral diastolic flow velocities suggest diastolic dysfunction (pseudonorm al pattern). Bubble contrast study negative for right to left interatrial shunt. Ordering Physician: Gutierrez Ron Referring Physician: Murphy Burton Performed By: Matthew Gupta RCS
--- NOTE | 2020-12-11 23:55 | PCS.PANDOC ---
PANDEMIC DOCUMENTATION INITIATED: Date: 11/12/2020 Time: 190
[2020-12-12] VITALS (12 sets, daily range): BP systolic 134–223; BP diastolic 59–76; PULSE 53–69; RESP 14–18; TEMP 36.4–37.1; O2SAT 94–98
[2020-12-12 07:03] LABS: Cholesterol 316 mg/dL (200); High Density Lipoprotein 52 mg/dL; Triglycerides 141 mg/dL; Very Low Density Lipoprotein 28 mg/dL (5-40)
[2020-12-12 07:14] LABS: Hemoglobin A1c 6.6 % (3.8-5.6)
[2020-12-12] MEDS: Labetalol (Prefilled) 20 MG/4 ML IV (08:35)
[2020-12-12] MEDS: Clopidogrel Bisulfate 75 MG Tablet PO (08:46)
[2020-12-12] MEDS: Aspirin 81 MG TAB.CHEW PO (08:46)
--- NOTE | 2020-12-12 09:00 | MRI_ITS ---
We are attempting to reach an attending provider to discuss findings. An addendum with communication details will be sent when the communication is complete. STUDY: MRA NECK WITHOUT CONTRAST REASON FOR EXAM: Female, 85 years old. CVA. CVA TECHNIQUE: Source images were obtained, MIPs were performed. The study was performed unenhanced. COMPARISON: CTA dated 11/16/2017 FINDINGS: RIGHT CAROTID ARTERIES: Antegrade flow within the right common carotid artery (CCA). Antegrade flow within the right carotid bulb. There is appears to be moderate atherosclerotic plaque formation of the origin of the right internal carotid artery with an estimated stenosis of 50-69% stenosis. Antegrade flow within the visualized cervical portion of the right internal carotid artery. LEFT CAROTID ARTERIES: Antegrade flow within the left common carotid artery (CCA). Antegrade flow within the left common carotid bulb. There is appears to be moderate atherosclerotic plaque formation of the origin of the left internal carotid artery with an estimated stenosis of 50-69% stenosis. Antegrade flow within the visualized cervical portion of the left internal carotid artery. VERTEBRAL ARTERIES: There is nonvisualization of the right vertebral artery. The vertebral artery was patent on the prior CTA. Antegrade flow within the left vertebral artery. MRI/MRA Neck without Contrast IMPRESSION: Nonvisualization of the right vertebral artery. Occlusion cannot be excluded. Suspected 50-69% stenosis of the bilateral ICAs. Further evaluation with CTA is recommended. Electronically Signed: Parris Bang MD at 12:38 EDT Tel , Service support ,
--- NOTE | 2020-12-12 09:00 | MRI_ITS ---
STUDY: MRA OF THE HEAD WITHOUT CONTRAST REASON FOR EXAM: Female, 85 years old. CVA. CVA TECHNIQUE: 3-D [id number] (TOF) imaging was performed with MIPs. The study was performed unenhanced. COMPARISON: None. FINDINGS: There is atheromatous plaque formation of the right cavernous carotid artery, with a moderate stenosis (50-75%). There is moderate/severe stenosis at the terminus of the carotid artery. There is nonvisualization of the right A1 segment. There is atheromatous plaque formation of the left cavernous carotid artery, with a mild stenosis (less than 50%). There is non-visualization of the right A1 segment of the anterior cerebral arteries consistent with either aplastic development or an occlusion. Patent left A1 segments of the anterior cerebral artery. Unremarkable anterior communicating artery (ACOM) region. Normal bilateral A2 segments of the anterior cerebral arteries. There is irregularity of the right M1 and M2 branches with minimal luminal narrowing, suggesting atherosclerotic plaque formation, without an occlusion. There is irregularity of the left M1 and M2 branches with minimal luminal narrowing, suggesting atherosclerotic plaque formation, without an occlusion. There is non-visualization of the right posterior communicating artery (PCOM). There is non-visualization of the left posterior communicating artery (PCOM). Patent basilar artery with a normal basilar bifurcation. Patent bilateral posterior cerebral arteries. 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 There is non-visualization of the right A1 segment of the anterior cerebral arteries consistent with either aplastic development or an occlusion. Electronically Signed: Parris Bang MD at 12:33 EDT Tel , Service support ,
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
--- NOTE | 2020-12-12 12:05 | CASEMGMT ---
Pt completed PHQ-9 w/pt, SW spoke w/pt, she states is doing fine. She states she has been through some of that before but now she is doing well. Pt scored a 2, does not indicate depression at this time. MARILUZ Kelly
--- NOTE | 2020-12-12 13:29 | TELEMED_ITS ---
[facility] Telemed has confirmed receipt of a request for visit. This document confirms receipt of the order initiating the consult. To find the results of the consultation, please view the patient's reports for the scanned Telemed Consult.
[2020-12-12] MEDS: Ezetimibe 10 MG Tablet PO (15:06)
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
[2020-12-12] MEDS: Insulin Lispro 100 UNIT/ML INSULN.PEN SC (17:22)
[2020-12-12 17:31] LABS: Bedside Glucose 203 mg/dL (70-110)
[2020-12-12 21:40] LABS: Bedside Glucose 124 mg/dL (70-110)
[2020-12-12] MEDS: Sertraline 50 MG Tablet 25 MG PO (22:01)
[2020-12-13] VITALS (8 sets, daily range): BP systolic 156–176; BP diastolic 51–69; PULSE 64–75; RESP 16–18; TEMP 36.4–36.9; O2SAT 95–98
[2020-12-13 06:31] LABS: Bedside Glucose 146 mg/dL (70-110)
[2020-12-13] MEDS: Clopidogrel Bisulfate 75 MG Tablet PO (09:10)
[2020-12-13] MEDS: Metoprolol Tartrate 25 MG Tablet 12.5 MG PO (09:10)
[2020-12-13] MEDS: Aspirin 81 MG TAB.CHEW PO (09:10)
[2020-12-13] MEDS: Lisinopril 5 MG Tablet PO (09:10)
[2020-12-13] MEDS: Ezetimibe 10 MG Tablet PO (09:10)
--- NOTE | 2020-12-13 12:03 | PCM.DC ---
Discharge Instructions Diet Discharge Diet: Low fat / Low cholesterol, 2000 Calorie Control Diet and 2000 mg Sodium Diet Activity Discharge Activity: Return to Normal Activity Follow Up Care Test Results: Test results from this visit will be discussed in further detail at your follow-up appointment, if applicable. Discharge Plan Admission Admit Date/Time: 12/11/20 22:59 Primary Reason for Your Visit: TIA Attending Provider: Shy Callejas Primary Care Provider: Murphy Burton Instructions Patient Instructions: ED Chest Pain, Noncardiac Additional Instructions / Restrictions: Take note of changes to your medications. Continue to follow-up with your primary care doctor and neurologist within 2 weeks. Follow-up with Dr. Barreto. Continue to take your blood pressure and check your blood sugars as discussed. Discharge Orders/Prescriptions Prescriptions: New ezetimibe 10 mg Tablet 10 mg PO DAILY 30 Days Qty: 30 RF: 0 Continued sertraline 50 mg tablet 25 mg PO QHS RF: 0 nitroglycerin 0.4 MG tablet 0.4 mg SUBLINGUAL Q5M PRN (Reason: Chest Pain) Qty: 20 RF: 1 aspirin 81 MG tablet 81 mg PO DAILY@0800 RF: 0 metformin 500 MG tablet 500 mg PO BID PRN (Reason: blood sugar) RF: 0 lisinopril 5 mg tablet 5 mg PO DAILY RF: 0 metoprolol tartrate 25 mg tablet 12.5 mg PO BID RF: 0 clopidogrel 75 mg tablet 75 mg PO DAILY Qty: 90 RF: 3 Referrals / Follow Up: Murphy Burton DO [Primary Care Provider] - Within 2 Weeks Rodrigo Duran MD [STAFF PHYSICIAN] - Within 2 Weeks Harinder Barreto MD [STAFF PHYSICIAN] - See Referral Note (in 2-4 weeks) Disposition Disposition (needs filled in before D/C Order can be placed): Home, Self Care
[2020-12-13 12:05] LABS: Bedside Glucose 131 mg/dL (70-110)
--- NOTE | 2020-12-13 12:57 | PHA.DC.MR ---
Pharmacy Service has performed discharge medication reconciliation for this patient. No new medications at time of discharge review. Medications reviewed are from previously reported home medications. Home Medications nitroglycerin 0.4 mg SUBLINGUAL Q5M PRN #20 tab 07/11/16 aspirin 81 mg PO DAILY@0800 04/28/18 sertraline 50 mg tablet 25 mg PO QHS tab 11/07/20 clopidogrel 75 mg tablet 75 mg PO DAILY #90 tab 11/12/20 lisinopril 5 mg PO DAILY 12/12/20 metformin 500 mg PO BID PRN 12/12/20 metoprolol tartrate 12.5 mg PO BID 12/12/20 The patient's discharge medication list was reviewed for discrepancies and discrepancies were resolved.
--- NOTE | 2020-12-13 14:06 | DS.PCM_ITS ---
Providers Date of Admission: 12/11/20 Primary Care Physician: Dr. 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 Diabetes mellitus complication status: without complication Qualified Code(s): E11.9 - Type 2 diabetes mellitus without complications Medications at Discharge Home Medications nitroglycerin 0.4 mg SUBLINGUAL Q5M PRN #20 tab 07/11/16 aspirin 81 mg PO DAILY@0800 04/28/18 sertraline 50 mg tablet 25 mg PO QHS tab 11/07/20 clopidogrel 75 mg tablet 75 mg PO DAILY #90 tab 11/12/20 lisinopril 5 mg PO DAILY 12/12/20 metformin 500 mg PO BID PRN 12/12/20 metoprolol tartrate 12.5 mg PO BID 12/12/20 ezetimibe 10 mg PO DAILY 30 Days #30 tab 12/13/20 Hospital Course Operations None Procedures 2-D Echocardiogram Summary of Care Provided Minutes Spent on Discharge: 55 Hospital Course: 85-year-old with past medical history of CAD status post stent, PAD status post carotid endarterectomy, type II DM, hypertension who comes in with left-sided facial droop, upper extremity numbness and slurred speech. This started more than 3 hours prior to her presentation. Her symptoms where resolved after arrival. However it occurred again. Patient's initial vitals were uncontrolled. Her CT scan of the head showed chronic involuntary changes. No acute abnormality. She was admitted to the PCU and worked up for acute TIA. MRI of the brain was unremarkable for acute stroke. It showed chronic prior right frontoparietal and occipital infarcts. MRA of the head showed moderate/severe stenosis of the right carotid artery. MRA of the neck showed bilateral internal carotid artery 50 to 69% stenosis. Patient later on in the day had recurrence of her symptoms. Emergent SOC was sought. Recommended start of statins and allowing permissive hypertension for about 24 hours. 2D echo showed EF of 65%, no intra-atrial shunting or valvular lesions. Her HbA1c was 6.6, her triglycerides is 141, total cholesterol was 316, LDL was 236, HDL was 52. Patient has allergy to statins with myalgia. She was started on Zetia. Educated on low-fat diet Patient was seen by PT and OT as well as speech therapy. Physical Exam Narrative Physical exam: General: Alert, Oriented x3, Cooperative, No apparent distress, Well developed HEENT: Atraumatic Oral: Moist Mucosa Neck: Supple Lungs: Clear to auscultation Cardiovascular: HS I+II, regular, no murmurs Abdomen: Bowel Sounds Present, Soft, Non Tender Extremities: No edema Neurological: No facial droop or left upper extremity drift, power is 5/5 in all extremities, normal tone Weight / BMI Weight Weight: 59.8 kg Body Mass Index (BMI) 26.5 ABG / Lab / Microbiology Data Result Diagrams: 12/11/20 21:37 12/11/20 21:37 Laboratory: Laboratory Results - last 24 hr 12/12/20 17:19: POC Glucose 203 H 12/12/20 21:30: POC Glucose 124 H 12/13/20 06:24: POC Glucose 146 H 12/13/20 11:57: POC Glucose 131 H D/C Instructions Discharge Diet: Low fat / Low cholesterol, 2000 Calorie Control Diet and 2000 mg Sodium Diet Meaningful Use Info Meaningful Use Diagnoses (Choose all that apply): None applicable Discharge Plan Admission Admit Date/Time: 12/11/20 22:59 Primary Reason for Your Visit: TIA Attending Provider: Shy Callejas Primary Care Provider: Murphy Burton Instructions Patient Instructions: ED Chest Pain, Noncardiac Additional Instructions / Restrictions: Take note of changes to your medications. Continue to follow-up with your primary care doctor and neurologist within 2 weeks. Follow-up with Dr. Barreto. Continue to take your blood pressure and check your blood sugars as discussed. Discharge Orders/Prescriptions Prescriptions: New ezetimibe 10 mg Tablet 10 mg PO DAILY 30 Days Qty: 30 RF: 0 Continued sertraline 50 mg tablet 25 mg PO QHS RF: 0 nitroglycerin 0.4 MG tablet 0.4 mg SUBLINGUAL Q5M PRN (Reason: Chest Pain) Qty: 20 RF: 1 aspirin 81 MG tablet 81 mg PO DAILY@0800 RF: 0 metformin 500 MG tablet 500 mg PO BID PRN (Reason: blood sugar) RF: 0 lisinopril 5 mg tablet 5 mg PO DAILY RF: 0 metoprolol tartrate 25 mg tablet 12.5 mg PO BID RF: 0 clopidogrel 75 mg tablet 75 mg PO DAILY Qty: 90 RF: 3 Referrals / Follow Up: Murphy Burton DO [Primary Care Provider] - Within 2 Weeks Rodrigo Duran MD [STAFF PHYSICIAN] - Within 2 Weeks Harinder Barreto MD [STAFF PHYSICIAN] - See Referral Note (in 2-4 weeks) Disposition Disposition (needs filled in before D/C Order can be placed): Home, Self Care Charges/Coding Visit Charges Inpatient E&M: 67849 Disch Hosp
--- NOTE | 2020-12-13 14:12 | CASEMGMT ---
Per therapy eval today, no further therapy recommended. SStaten RN CM
== END 2020-12-13 12:02 | disposition home or self-care (01) ==
LOC: ED 23:03 → PCU 23:10
PROVIDERS: Emergency Medicine; Admitting Provider Hospitalist; Emergency Provider Emergency Medicine; PCP Family Medicine; Visit Provider Internal Medicine
DX: G45.9 Transient cerebral ischemic attack, unspecified (principal); R29.810 Facial weakness; R53.1 Weakness; R20.0 Anesthesia of skin; I25.10 Atherosclerotic heart disease of native coronary artery without angina pectoris; E78.5 Hyperlipidemia, unspecified; R29.700 NIHSS score 0; E11.51 Type 2 diabetes mellitus with diabetic peripheral angiopathy without gangrene; F32.9 Major depressive disorder, single episode, unspecified; I11.0 Hypertensive heart disease with heart failure; I50.30 Unspecified diastolic (congestive) heart failure; E11.65 Type 2 diabetes mellitus with hyperglycemia; I08.3 Combined rheumatic disorders of mitral, aortic and tricuspid valves; F41.9 Anxiety disorder, unspecified; Z79.899 Other long term (current) drug therapy; Z79.02 Long term (current) use of antithrombotics/antiplatelets; Z79.84 Long term (current) use of oral hypoglycemic drugs; Z79.82 Long term (current) use of aspirin; Z95.5 Presence of coronary angioplasty implant and graft
CPT/HCPCS: 36415; 70450; 70544; 70547; 70551; 71045; 80048; 80061; 82962; 83036; 84484; 85025; 85610; 85730; 92610; 93005; 93306; 94762; 96374; 97162; 97166; 97802; 97803; 99218; 99285; Q9957; A4216; G0378; J3490

== ENCOUNTER → 2021-01-02 07:59 | Outpatient (CLI) | payer SELFPAY, OTHER ==
[2020-12-17 08:26] VITALS: BMI 23.1
--- NOTE | 2021-01-02 08:04 | CDU_ITS ---
Reason For Study: TIA Rt. Velocities/BP Lt. Velocities/BP Prox CCA 60/5 cm/sec. Prox CCA 83/15 cm/sec. Mid CCA 71/6 cm/sec. Mid CCA 105/20 cm/sec. Dist CCA 63/4 cm/sec. Dist CCA 136/19 cm/sec. Prox ICA 71/13 cm/sec. Prox ICA 105/16 cm/sec. Mid ICA 105/26 cm/sec. Mid ICA 186/34 cm/sec. Dist ICA 123/24 cm/sec. Dist ICA 118/29 cm/sec. Rt. ICA/CCA = 1.7. Lt. ICA/CCA = 1.8. Prox ECA 113/0 cm/sec. Prox ECA 186/0 cm/sec. Rt. Vert. 58/0 cm/sec. Lt. Vert. 75/19 cm/sec. Right Extracranial There is heterogeneous, irregular atherosclerotic plaque noted in the right common carotid artery. There is heterogeneous, irregular atherosclerotic plaque noted in the right internal carotid artery. The right internal carotid artery is very tortuous. There is heterogeneous, irregular atherosclerotic plaque noted in the right external carotid artery. Antegrade flow is noted in the right vertebral artery. Left Extracranial There is heterogeneous, smooth atherosclerotic plaque noted in the left common carotid artery. There is heterogeneous, irregular atherosclerotic plaque noted in the left internal carotid artery. The left internal carotid artery is very tortuous. There is heterogeneous, smooth atherosclerotic plaque noted in the left external carotid artery. Antegrade flow is noted in the left vertebral artery. Procedure Carotid Duplex [id number]. This is a Carotid Duplex examination using B-mode, color flow and specral Doppler. Exam performed in department. VL/Carotid Duplex Ultrasound Interpretation Summary Irregular calcific plaque with shadowing at the proximal right internal carotid artery with less than 50% stenosis Less than 50% stenosis right external carotid artery Irregular calcific plaque left proximal internal carotid artery with 50 to 69% stenosis. Less than 50% stenosis left external carotid artery Patent and antegrade vertebral arteries bilaterally No change from the previous examination of May 20, 2019 Ordering Physician: Harinder Barreto Referring Physician: Murphy Burton Performed By: Karmen Munoz, CHACHA, RVT
== END ==
PROVIDERS: PCP Family Medicine; Referring Provider Surgery; Visit Provider Surgery
DX: I65.22 Occlusion and stenosis of left carotid artery (principal); G45.9 Transient cerebral ischemic attack, unspecified
CPT/HCPCS: 93880

== ENCOUNTER → 2022-03-19 | Outpatient (CLI) | payer SELFPAY, OTHER ==
[2020-12-17 08:26] VITALS: BMI 23.1
--- NOTE | 2022-03-19 07:51 | ECHOD_ITS ---
Reason For Study: chest pain Procedure This was a 2D Doppler, Color Flow transthoracic echocardiogram. The study was technically difficult. Exam performed in department. Left Ventricle Normal LV size. Left ventricular systolic function is normal. The estimated ejection fraction is 65 %. Diastolic function is indeterminate. No regional wall motion abnormalities noted. Right Ventricle Normal RV size. Normal systolic function. Atria The left atrium is mildly enlarged. Normal right atrium. No doppler evidence for ASD. Mitral Valve There is moderate mitral annular calcification. Extension of the mitral annular calcification onto the base of the posterior mitral valve leaflet. The mitral valve chordae are thickened and/or calcified. Mild mitral valve stenosis. Mild (1+) mitral valve insufficiency. Tricuspid Valve Normal tricuspid valve. Trivial tricuspid valve insufficiency. Right ventricular systolic pressure estimated to be 32 mmHg. Aortic Valve Trisinus/trileaflet aortic valve. Severe focal aortic valve calcification. Moderate to severe calcific aortic valve stenosis. Trivial aortic valve insufficiency. Pulmonic Valve The pulmonic valve is not well visualized. Trivial pulmonic valve insufficiency. Great Vessels The aortic root is not well-visualized. Pericardium/Pleural No pericardial effusion. MMode/2D Measurements & Calculations LVOT diam: 2.0 cm LAV(MOD-sp4): 52.9 ml LVAd ap4: 17.8 cm2 LVOT area: 3.1 cm2 LVLd ap4: 5.9 cm EDV(MOD-sp4): 45.4 ml EDV(sp4-el): 46.2 ml LVAs ap4: 10.3 cm2 LVLs ap4: 4.7 cm ESV(MOD-sp4): 21.1 ml ESV(sp4-el): 19.2 ml EF(MOD-sp4): 53.6 % EF(sp4-el): 58.5 % SV(MOD-sp4): 24.4 ml SV(sp4-el): 27.0 ml LA A4 area: 19.8 cm2 LA dimension(2D): 4.1 cm RA A4 area: 15.6 cm2 Time Measurements MV dec time: 0.34 sec Doppler Measurements & Calculations MV E max lorne: 106.4 cm/sec Lat Peak E' Lorne: 7.2 cm/sec Med Peak E' Lorne: 3.1 cm/sec MV A max lorne: 112.6 cm/sec E/E' lat: 14.8 E/E' med: 34.0 MV E/A: 0.94 MV V2 max: 122.2 cm/sec MV dec slope: 313.7 cm/sec2 Ao V2 max: 328.6 cm/sec MV max P.0 mmHg Ao max P.2 mmHg MV V2 mean: 72.9 cm/sec Ao V2 mean: 242.0 cm/sec MV mean P.5 mmHg Ao mean P.3 mmHg MV V2 VTI: 40.8 cm Ao V2 VTI: 79.8 cm MVA(VTI): 1.8 cm2 AV (velocity ratio): 0.30 LIDIA(I,D): 0.93 cm2 LIDIA(V,D): 0.87 cm2 AI max lorne: 351.7 cm/sec LV V1 max: 91.9 cm/sec SV(LVOT): 74.3 ml AI max P.5 mmHg LV V1 max P.4 mmHg LV V1 mean P.9 mmHg AI dec slope: 214.8 cm/sec2 LV V1 mean: 65.4 cm/sec AI P1/2t: 479.5 msec LV V1 VTI: 23.9 cm PA V2 max: 107.7 cm/sec TR max lorne: 268.9 cm/sec PA V2 mean: 74.3 cm/sec TR max P.9 mmHg ECHO/Echo Complete Interpretation Summary The study was technically difficult. Left ventricular systolic function is normal. The estimated ejection fraction is 65 %. The left atrium is mildly enlarged. There is moderate mitral annular calcification. Extension of the mitral annular calcification onto the base of the posterior mi tral valve leaflet. The mitral valve chordae are thickened and/or calcified. Mild mitral valve stenosis. Mild (1+) mitral valve insufficiency. Trivial tricuspid valve insufficiency. Moderate to severe calcific aortic valve stenosis. Trivial aortic valve insufficiency. Trivial pulmonic valve insufficiency. Right ventricular systolic pressure estimated to be 32 mmHg. Diastolic function is indeterminate. Ordering Physician: Jeni Knox Performed By: Amanda Mahcuca RCS
== END | disposition home or self-care (01) ==
LOC: CVS 07:49
PROVIDERS: PCP Family Medicine; Visit Provider Physician Assistant Medical
DX: R07.9 Chest pain, unspecified (principal); I10 Essential (primary) hypertension; I25.10 Atherosclerotic heart disease of native coronary artery without angina pectoris; E78.5 Hyperlipidemia, unspecified; I35.0 Nonrheumatic aortic (valve) stenosis
CPT/HCPCS: 93306

== ENCOUNTER 2022-03-20 09:08 | Inpatient (IN) | payer OTHER, SELFPAY ==
[2020-12-17 08:26] VITALS: BMI 23.1
[2022-03-20] VITALS (21 sets, daily range): BP systolic 134–173; BP diastolic 45–68; PULSE 65–97; RESP 12–32; TEMP 36–36.7; O2SAT 78–100; BMI 29.5; BMI 26.2
--- NOTE | 2022-03-20 09:39 | RAD_ITS ---
STUDY: X-RAY CHEST REASON FOR EXAM: Female, 87 years old. Chest pain and shortness of breath. TECHNIQUE: Single AP portable view of the chest. COMPARISON: Comparison is made with prior study 12/11/2020. FINDINGS: EKG electrodes are seen. Hyperinflation. Patchy bibasilar pulmonary infiltrates worse at the left lung base. This is superimposed on mild degree of CHF. There is no demonstrated pleural abnormality. There is borderline cardiomegaly. Normal mediastinum and jessy. Normal visualized pulmonary arteries. There is atherosclerotic calcification of the aortic arch with tortuosity. Normal visualized thoracic spine. There is degenerative osteoarthritis of the bilateral shoulders. There is no demonstrated abnormality of the visualized soft tissue structures of the upper abdomen. RAD/Chest 1 View (Portable) IMPRESSION: Mild degree of CHF with superimposed bibasilar infiltrates worse at the left lung base. Electronically Signed: Steve Kang MD at 10:12 [facility] ,
--- NOTE | 2022-03-20 09:40 | EDS_ITS ---
HPI History of Present Illness Chief Complaint: Shortness of Breath Informant: patient and family Onset/Context/Timing Onset: Today Context: gradual Timing: Continuous Current Severity: Moderate Maximum Severity: Moderate Associated Symptoms Negative for cough, rhinorrhea, post nasal drip, ear pain, fever, chills or sweats Chest Pain: Positive for None Narrative Narrative: 87-year-old female history of CAD, aortic stenosis, hypertension, cardiac stents, prior TIA, and diabetes. She is on aspirin and Plavix. Has been doing well she had an echocardiogram yesterday and family states had not had any significant change. She denies any hemoptysis. She is never had a DVT or PE. Today prior to attending a she was complaining of shortness of breath. No chest pain. No fever. No leg pain or swelling. PE Risk Factors: Negative for Cancer, OCP + Smoking + > 35, Prior DVT or PE, Recent immobilization, Recent surgery or Recent travel Prior similar symptoms: No Recent Illness/Hospitalization: No PFSH PFS Medical History Aortic valve disorders Atherosclerotic heart disease of [place] coronary artery without angina pectoris Carotid stenosis, left Coronary artery disease Depression Diabetes Essential hypertension HLD (hyperlipidemia) Hypertension Moderate to severe aortic stenosis Non-smoker Nonrheumatic aortic (valve) stenosis Nonrheumatic mitral (valve) insufficiency Occlusion and stenosis of left carotid artery Occlusion and stenosis of right carotid artery Osteoporosis PAD (peripheral artery disease) Presence of stent in coronary artery (~07/10/16) TIA (transient ischemic attack) Home Medications nitroglycerin 0.4 mg sublingual tablet 0.4 mg sublingual Q5M PRN Chest Pain #20 tabs 07/11/16 [Rx Last Taken Unknown] aspirin 81 mg tablet,delayed release 81 mg PO DAILY@0800 [facility] 04/28/18 [History Last Taken 05/06/18] sertraline 50 mg tablet 25 mg PO QHS MOOD 11/07/20 [History Last Taken Unknown] clopidogrel 75 mg tablet 75 mg PO DAILY #90 tabs 11/12/20 [Rx Last Taken Unknown] lisinopril 5 mg tablet 5 mg PO DAILY bp 12/12/20 [History Last Taken Unknown] ezetimibe 10 mg tablet 10 mg PO DAILY 30 days #30 tabs 12/13/20 [Rx Last Taken Unknown] metformin 500 mg tablet 500 mg PO TID blood sugar 01/28/21 [History Last Taken Unknown] omega-3 250 tp-hib-biz-lutein 2.5 mg-zeaxanthin 0.5 mg capsule ([employer]) 1 cap PO BID 01/28/21 [History Last Taken Unknown] vitamin B complex 1 cap PO DAILY 01/28/21 [History Last Taken Unknown] isosorbide mononitrate 30 mg tablet,extended release 24 hr 30 mg PO DAILY #30 tabs 02/28/22 [Rx Last Taken Unknown] Allergy/AdvReac Type Severity Reaction Status Date / Time rosuvastatin AdvReac Severe Myalgias Verified 03/20/22 09:14 simvastatin AdvReac Severe myalgias Verified 03/20/22 09:14 Family History Father CAD (coronary artery disease) Hypertension Myocardial infarction, Onset Age: 80 Sister CVA (cerebral vascular accident), Onset Age: 66 Diabetes Arthritis Mother Cancer Thyroid Surgical History History of CEA (carotid endarterectomy) (~2010) History of hysterectomy History of left-sided carotid endarterectomy (05/05/17) Presence of coronary angioplasty implant and graft (~07/10/16) Social History Smoking Status: Never smoker second hand exposure: No alcohol intake: never substance use type: does not use caffeine: No ROS ROS ED ROS Narrative Shortness of breath. Review of Systems ROS Unobtainable: Denies due to encephalopathy Constitutional Constitutional ED: Denies chills or fever(s) Eyes Eyes: Denies blurry vision ENT ENT ED: Denies ear pain Cardiovascular Cardiovascular: Denies chest pain, palpitations or racing heartbeat Respiratory/Chest Respiratory/Chest: Reports dyspnea; Denies cough Gastrointestinal Gastrointestinal: Denies abdominal pain Genitourinary Genitourinary ED: Denies dysuria or hematuria Musculoskeletal Musculoskeletal: Denies arthralgias Integumentary Denies abscess Neurologic Neurologic: Denies headache(s) Psychiatric Psychiatric: Denies anxiety Endocrine Endocrinology: Denies cold intolerance Hematologic/Lymphatic Hematologic/Lymphatic: Denies easy bleeding Allergic/Immunologic Allergic/Immunologic ED: Denies mouth swelling or tongue swelling EXAM Physical Exam Narrative Exam Narrative: Well-appearing 87-year-old female. When I entered the room that already placed her on BiPAP which she states has made her feel significantly better and improved her shortness of breath. Her initial of vital signs showed a room air pulse ox of 78%. On BiPAP she is 98%. She does not appear septic or toxic. She is comfortable on the BiPAP. H EENT exam unremarkable. Moist mucous membranes. Neck nontender no JVD no lymphadenopathy. Lungs clear to auscultation bilaterally. Heart regular rhythm no murmur. Abdomen soft nontender. Moving all 4 extremities. Calves are nontender without edema or cords. Neurologically she is awake and alert. Answering questions and following commands on BiPAP. Const Vital Signs: 03/20/22 09:10 03/20/22 09:14 03/20/22 09:18 Temperature 96.8 F L Temperature Source Temporal Pulse Rate 97 Respiratory Rate 32 H Respiratory Effort Respiratory Depth Respiratory Pattern Blood Pressure Blood Pressure Mean Pulse Ox 78 89 98 Oxygen Delivery Method Room Air Nasal Cannula Bi-pap Oxygen Flow Rate (L/min) 6 Fraction of Inspired Oxygen (FIO2) 03/20/22 09:22 03/20/22 09:29 03/20/22 09:37 Temperature Temperature Source Pulse Rate 74 75 Respiratory Rate 18 20 H Respiratory Effort Normal Respiratory Depth Normal Respiratory Pattern Gasping Blood Pressure 134/68 H Blood Pressure Mean 90 Pulse Ox 98 98 Oxygen Delivery Method Bi-pap Bi-pap Oxygen Flow Rate (L/min) Fraction of Inspired Oxygen (FIO2) 60 03/20/22 09:38 03/20/22 09:39 03/20/22 10:30 Temperature Temperature Source Pulse Rate 65 Respiratory Rate 17 Respiratory Effort Respiratory Depth Respiratory Pattern Blood Pressure 141/65 H Blood Pressure Mean 90 Pulse Ox 99 Oxygen Delivery Method Bi-pap Bi-pap Oxygen Flow Rate (L/min) Fraction of Inspired Oxygen (FIO2) 50 50 03/20/22 11:00 Temperature Temperature Source Pulse Rate 65 Respiratory Rate 16 Respiratory Effort Respiratory Depth Respiratory Pattern Blood Pressure 156/57 H Blood Pressure Mean 90 Pulse Ox 99 Oxygen Delivery Method Bi-pap Oxygen Flow Rate (L/min) Fraction of Inspired Oxygen (FIO2) 50 Positive well nourished and well developed; Negative for obese, cachectic, contractures or unkempt General Appearance ED: well developed; Negative for unkempt, cachectic, contractures, NAD or pallor Nutritional Appearance: Negative for cachectic or obese HEENT Reports moist mucous membranes; Denies dry mucous membranes atraumatic; Negative for trauma or tenderness Mouth ED: No dry mucous membranes Mouth: No dry mucous membranes Eyes PERRL and EOMs intact bilaterally General Eye ED: Negative for pale conjunctiva or scleral icterus Neck no lymphadenopathy, supple, no meningeal signs and no JVD General: Negative for tenderness Lymph Lymphatic: Negative for other Resp No normal respiratory effort and clear to auscultation bilaterally Resp Narrative: Increased work of breathing. Increased respiratory rate. Effort and Inspection: Negative for pain with movement Auscultation: Negative for rales, rhonchi or wheezes Cardio regular rhythm, S1 normal heart sound, S2 normal heart sound and no murmurs; Negative for regular rate Rate: tachycardic; Negative for bradycardia Rhythm: Negative for abnormal rhythm GI non-tender, non-distended and no masses Inspection: Negative for other Auscultation: normoactive bowel sounds; Negative for hyperactive bowel sounds or hypoactive bowel sounds Palpation: soft; Negative for tender or guarding Back/Spine no CVA tenderness and normal to inspection General Back: Negative for CVA tenderness Extremity normal to inspection General Extremety ED: Negative for edema or tenderness General Extremity: Negative for edema Neuro oriented x3 Sensorium / Orientation: oriented to person, oriented to place and oriented to time; Negative for orientation impaired, confused or lethargic Speech: speech normal Motor Exam: strength 5/5 throughout Psych mental status grossly normal Appearance: Negative for unkempt Attitude: No agitated Mood & Affect: Negative for depressed, anxious or tearful Thought Process: normal thought process Skin no wounds and skin turgor normal General Skin Exam: Negative for jaundice or pallor Lesions: no lesions Rashes: no rashes Trauma: Negative for abrasion or laceration MDM MDM MDM Narrative Medical decision making narrative: 87-year-old female short of breath hypoxic on arrival was placed on BiPAP is significantly improved. Benign exam. Undergo a cardiac work-up. She has no history of DVT or PE. No risk factors. Repeat exam patient is doing quite well at noon. She is comfortable on the BiPAP. I went over the test with her and her family. My running diagnosis is pulmonary edema. I spoke to the hospitalist Thursday patient will be admitted to the PCU to her. Lab Data Attestation: I reviewed the patient's lab results. Lab results narrative: Blood gas showed a pH 7.33. PCO2 of 42. PO2 of 92. Rapid COVID and influenza were both negative. CBC shows elevated white count of 13.7. H&H 15.6 and 48. Electrolytes show a gap of 6 BUN of 21 creatinine 0.8. Glucose is elevated at 368. Troponin 45. BNP is 549. Labs: Laboratory Results - last 24 hr 03/20/22 03/20/22 03/20/22 09:15 09:15 09:15 WBC 13.7 H RBC 5.55 H Hgb 15.6 H Hct 48.8 H MCV 87.9 MCH 28.1 MCHC 32.0 RDW Std Deviation 41.7 RDW Coeff of Jennifer 12.9 Plt Count 317 MPV 10.2 Immature Gran % (Auto) 0.500 Neut % (Auto) 52.0 Lymph % (Auto) 38.9 [place] % (Auto) 6.2 Eos % (Auto) 1.8 Baso % (Auto) 0.6 Absolute Neuts (auto) 7.2 Absolute Lymphs (auto) 5.34 H Nucleated RBC % 0 Reactive Lymphocytes 1+ Sodium 138 Potassium 4.0 Chloride 106 Carbon Dioxide 26.0 Anion Gap 6 BUN 21 H Creatinine 0.83 Estim Creat Clear Calc 50.06 Est GFR (MDRD) Af Amer 84 Est GFR (MDRD) Non-Af 69 BUN/Creatinine Ratio 25.3 H Glucose 368 H Calcium 8.9 Troponin I High Sens 45 B-Natriuretic Peptide 549.6 H ABG Data ABG results: ABG 03/20/22 09:33 Specimen Type ART Sample Site R Brach pH 7.33 L Bicarbonate Actual 22.6 Total CO2 24 Base Excess -3 L O2 Saturation 97 O2 % 60 ABG pCO2 42.7 ABG pO2 93 O2 Delivery Device BiPAP Vent Mode NIV POC PEEP 10 Radiography Chest X-Ray - ED: 1 View, Read by ED Physician, Read by Radiologist and CHF Diagnostic Testing: Clinical Impression(s) from Imaging Studies Chest X-Ray 03/20/22 09:39 IMPRESSION: Mild degree of CHF with superimposed bibasilar infiltrates worse at the left lung base. Electronically Signed: Steve Kang MD at 10:12 EST , Chest x-ray, portable, single view interpreted both by myself and the radiologist shows pulmonary edema. Cannot rule out infiltrates in the bases versus atelectasis. Rhythm Strip Rhythm Strip: Sinus Tach Rate: 102 Ectopy: None EKG Initial EKG: Attestation: I personally reviewed and interpreted this EKG as follows: Interpretation: Sinus Rhythm Comments: Sinus tachycardia rate of 102. There is ST depression in the inferior and anterior lateral leads. There is LVH. No signs of [place]. This is unchanged from prior EKG from November 2020. Critical Care Time Critical Care Time: Yes Critical care time (excluding procedures): 30-74 minutes, Including time spent:, Discussing w/Patient &/or Family/Interior Systems Carpenter, Discussing w/Consultants, Arranging Admission or Transfer, Performing Direct Patient Care at Bedside and - (35 min) Discharge Plan Triage Chief Complaint: Shortness of Breath ED Provider: Helio Espinoza Dx/Rx/DC Orders Clinical Impression: Respiratory failure, Hypoxia, Pulmonary edema, History of diabetes mellitus, History of aortic stenosis Prescriptions: No Action sertraline 50 mg tablet 25 mg PO QHS vitamin B complex Capsule 1 cap PO DAILY [facility] 250-2.5-0.5 mg capsule 1 cap PO BID nitroglycerin 0.4 MG tablet 0.4 mg SUBLINGUAL Q5M PRN (Reason: Chest Pain) Qty: 20 1RF aspirin 81 MG tablet 81 mg PO DAILY@0800 Label Comments: STATES WAS NOT TOLD TO STOP FOR SURGERY lisinopril 5 mg tablet 5 mg PO DAILY ezetimibe 10 mg Tablet 10 mg PO DAILY 30 Days Qty: 30 0RF metformin 500 mg tablet 500 mg PO TID clopidogrel 75 mg tablet 75 mg PO DAILY Qty: 90 3RF isosorbide mononitrate 30 mg tablet extended release 24 hr 30 mg PO DAILY Qty: 30 11RF Primary Care Provider: Murphy Burton Referrals: Murphy Burton DO [Primary Care Provider] - Disposition Disposition: [facility]
[2022-03-20 09:41] LABS: Base Excess -3 mmol/L (-2 to +2); Bicarbonate 22.6 mmol/L (22-26); Blood Gas Specimen Type ART; FI02 60; Mode NIV; O2 Delivery Device BiPAP; PEEP 10; PO2 93 mmHG (75-100); SITE R Brach; SO2 97 % (95-99); Total Carbon Dioxide 24 mmol/L; pCO2 42.7 mmHg (35-45); pH 7.33 (7.35-7.45)
[2022-03-20 09:52] LABS: Absolute Lymphocyte Count 5.34 X10^3/uL (0.83-4.51); Absolute Neutrophil Count 7.2 X10^3/uL (2.0-7.7); Basophil# 0.08 X10^3/uL; Basophil% 0.6 % (0-1); Eosinophil# 0.25 X10^3/uL; Eosinophils% 1.8 % (0-5); Hematocrit 48.8 % (37-47); Hemoglobin 15.6 g/dL (12.0-15.0); Lymphocyte # 5.34 X10^3/ul (0.83-4.51); Lymphocyte % 38.9 % (19-41); Mean Corpuscular Hgb 28.1 pg (27.0-32.0); Mean Corpuscular Volume 87.9 fL (81-99); Mean Platelet Vol. 10.2 fl (6.2-12.0); Monocyte# 0.85 X10^3/uL; Monocyte% 6.2 % (0-10); NRBC Flagged by Analyzer 0 % (0-5); Neutrophil # 7.15 X10^3/uL (2.7-7.7); POSITIVE DIFFERENTIAL YES; POSITIVE MORPHOLOGY YES; Platelet Count 317 K/mm3 (150-450); RBC Distribution Width CV 12.9 % (11.6-14.6); RBC Distribution Width SD 41.7 fl (35.1-43.9); Red Blood Count 5.55 M/mm3 (4.2-5.4); White Blood Count 13.7 K/mm3 (4.4-11.0)
[2022-03-20 10:05] LABS: Anion Gap 6 (5-15); BUN 21 mg/dL (7-18); BUN/Creat Ratio 25.3 RATIO (10-20); Calcium,Total 8.9 mg/dL (8.5-10.1); Chloride 106 mmol/L (98-107); Creatinine, Serum 0.83 mg/dL (0.55-1.02); Differential Indicated SCAN CRITERIA MET; EST Glomerular Filtration Rate 69 mL/min (>60); Est Glom Filt Rate - Afr Amer 84 mL/min (>60); Estimated Creatinine Clearance 50.06 ml/min; Glucose 368 mg/dL (74-106); Sodium Level 138 mmol/L (136-145); Troponin-I HS (w/2H Reflex) 45 pg/mL (3.0-54.0)
[2022-03-20 10:26] LABS: BNP,B-Type NATRIURETIC PEPTIDE 549.6 pg/mL (0-100)
[2022-03-20 10:27] LABS: Reactive Lymphocyte 1+
[2022-03-20 11:46] LABS: Reflex Troponin-HS? (from REC) Y
--- NOTE | 2022-03-20 12:16 | PCM.HP.STD ---
HPI - General General Date of Admission: 03/20/22 Date of Service: 03/20/22 Chief Complaint: Shortness of breath - 1 day HPI Narrative SOPHIA PRATHER, is a 87 F who presents with the above. Patient has past medical history of CAD status post stent, hypertension, hyperlipidemia, moderate to severe aortic valve stenosis, history of bilateral carotid endarterectomy. Patient had recently followed up with cardiology with complaints of chest pain. She was started on isosorbide. Patient stated that she woke up this morning with shortness of breath and some chest discomfort. She denied any palpitations or diaphoresis or leg swelling. She went for this morning. Whilst there, she felt very short of breath. She was reportedly blue/ashen. In the emergency room, her blood pressure is 134/68, heart rate was 97, respiratory rate 32, temperature 96.8 F, oxygen sat was 78% on room air, improved on BiPAP. WBC count is 13.7, hemoglobin 15.6, platelet count 317. CMP is unremarkable. Blood glucose 368, BNP Was 549.6. Admitting troponin was 45, progressed to 4675. Admitting chest x-ray showed mild degree of CHF with superimposed basilar infiltrate with the left lung base. [facility] Medical History Aortic valve disorders Atherosclerotic heart disease of [place] coronary artery without angina pectoris Carotid stenosis, left Coronary artery disease Depression Diabetes Essential hypertension HLD (hyperlipidemia) Hypertension Moderate to severe aortic stenosis Non-smoker Nonrheumatic aortic (valve) stenosis Nonrheumatic mitral (valve) insufficiency Occlusion and stenosis of left carotid artery Occlusion and stenosis of right carotid artery Osteoporosis PAD (peripheral artery disease) Presence of stent in coronary artery (~07/10/16) TIA (transient ischemic attack) Home Medications nitroglycerin 0.4 mg sublingual tablet 0.4 mg sublingual Q5M PRN Chest Pain #20 tabs 07/11/16 [Rx Last Taken 03/19/22] aspirin 81 mg tablet,delayed release 81 mg PO DAILY HEART HEALTH 04/28/18 [History Last Taken 03/20/22] lisinopril 5 mg tablet 5 mg PO BID BLOOD PRESSURE 12/12/20 [History Last Taken 03/20/22] metformin 500 mg tablet 500 mg PO BID blood sugar 01/28/21 [History Last Taken 03/20/22] omega-3 250 bl-oyz-yzu-lutein 2.5 mg-zeaxanthin 0.5 mg capsule ([facility]) 1 cap PO BID EYE HEALTH 01/28/21 [History Last Taken 03/20/22] vitamin B complex 1 cap PO DAILY SUPPLEMENT 01/28/21 [History Last Taken 03/20/22] clopidogrel 75 mg tablet 75 mg PO DAILY BLOOD THINNER 03/20/22 [History Last Taken 03/20/22] ezetimibe 10 mg tablet 10 mg PO DAILY CHOLESTEROL 03/20/22 [History Last Taken 03/20/22] metoprolol tartrate 25 mg tablet 12.5 mg PO BID BLOOD PRESSURE 03/20/22 [History Last Taken 03/20/22] multivitamin with minerals 1 tab PO DAILY SUPPLEMENT 03/20/22 [History Last Taken 03/20/22] sertraline 25 mg tablet 25 mg PO QHS DEPRESSION 03/20/22 [History Last Taken 03/19/22] Allergy/AdvReac Type Severity Reaction Status Date / Time rosuvastatin AdvReac Severe Myalgias Verified 03/20/22 09:14 simvastatin AdvReac Severe myalgias Verified 03/20/22 09:14 Family History Father CAD (coronary artery disease) Hypertension Myocardial infarction, Onset Age: 80 Sister CVA (cerebral vascular accident), Onset Age: 66 Diabetes Arthritis Mother Cancer Thyroid Surgical History History of CEA (carotid endarterectomy) (~2010) History of hysterectomy History of left-sided carotid endarterectomy (05/05/17) Presence of coronary angioplasty implant and graft (~07/10/16) Social History Smoking Status: Never smoker second hand exposure: No alcohol intake: never substance use type: does not use caffeine: No ROS ROS Narrative Constitutional: Denies: Anorexia, Chills, Fever, Night Sweats, Weight Change Eyes: Denies: Blurred vision, Cataracts, Conjunctivae Inflammation, Pain, Redness, Vision Change HEENT: Denies: Difficulty Hearing, Difficulty Swallowing, Head Aches, Hearing Changes, Sinus Congestion, Sinus Drainage Cardiovascular: See HPI Respiratory: See HPI Gastrointestinal: Denies: Abdominal Pain, Nausea, Vomiting Genitourinary: Denies: Dysuria Musculoskeletal: Denies: Joint Pain, Joint stiffness, Joint swelling, Joint Tenderness Skin: Denies: Rash, Wounds Neurological: Denies: Numbness, Tingling, Focal weakness Vital Signs Vital Signs Vital Signs: 03/20/22 09:10 03/20/22 09:14 03/20/22 09:18 Temperature 96.8 F L Temperature Source Temporal Pulse Rate 97 Respiratory Rate 32 H Respiratory Effort Respiratory Depth Respiratory Pattern Blood Pressure Blood Pressure Mean Pulse Ox 78 89 98 Oxygen Delivery Method Room Air Nasal Cannula Bi-pap Oxygen Flow Rate (L/min) 6 Fraction of Inspired Oxygen (FIO2) 03/20/22 09:22 03/20/22 09:29 03/20/22 09:37 Temperature Temperature Source Pulse Rate 74 75 Respiratory Rate 18 20 H Respiratory Effort Normal Respiratory Depth Normal Respiratory Pattern Gasping Blood Pressure 134/68 H Blood Pressure Mean 90 Pulse Ox 98 98 Oxygen Delivery Method Bi-pap Bi-pap Oxygen Flow Rate (L/min) Fraction of Inspired Oxygen (FIO2) 60 03/20/22 09:38 03/20/22 09:39 03/20/22 10:30 Temperature Temperature Source Pulse Rate 65 Respiratory Rate 17 Respiratory Effort Respiratory Depth Respiratory Pattern Blood Pressure 141/65 H Blood Pressure Mean 90 Pulse Ox 99 Oxygen Delivery Method Bi-pap Bi-pap Oxygen Flow Rate (L/min) Fraction of Inspired Oxygen (FIO2) 50 50 03/20/22 11:00 Temperature Temperature Source Pulse Rate 65 Respiratory Rate 16 Respiratory Effort Respiratory Depth Respiratory Pattern Blood Pressure 156/57 H Blood Pressure Mean 90 Pulse Ox 99 Oxygen Delivery Method Bi-pap Oxygen Flow Rate (L/min) Fraction of Inspired Oxygen (FIO2) 50 Weight Weight: 66.4 kg Body Mass Index (BMI) 29.5 Physical Exam Narrative Physical exam: General: Alert, Oriented x3, Cooperative, seen on BiPAP, mild use of protective services case worker muscles of respiration HEENT: Atraumatic Oral: Moist Mucosa Neck: Supple Lungs: Diminished to auscultation Cardiovascular: HS I+II, regular, no murmurs Abdomen: Bowel Sounds Present, Soft, Non Tender Extremities: Trace bilateral leg edema Skin: No rashes, No breakdown Neurological: Grossly intact Psych/Mental Status: Appropriate Results Lab / Micro Data Result Diagrams: 03/20/22 09:15 03/20/22 09:15 Labs: Laboratory Results - last 24 hr 03/20/22 09:15: WBC 13.7 H, RBC 5.55 H, Hgb 15.6 H, Hct 48.8 H, MCV 87.9, MCH 28.1, MCHC 32.0, RDW Std Deviation 41.7, RDW Coeff of Jennifer 12.9, Plt Count 317, MPV 10.2, Immature Gran % (Auto) 0.500, Neut % (Auto) 52.0, Lymph % (Auto) 38.9, [place] % (Auto) 6.2, Eos % (Auto) 1.8, Baso % (Auto) 0.6, Absolute Neuts (auto) 7.2, Absolute Lymphs (auto) 5.34 H, Nucleated RBC % 0, Reactive Lymphocytes 1+ 03/20/22 09:15: Sodium 138, Potassium 4.0, Chloride 106, Carbon Dioxide 26.0, Anion Gap 6, BUN 21 H, Creatinine 0.83, Estim Creat Clear Calc 50.06, Est GFR (MDRD) Af Amer 84, Est GFR (MDRD) Non-Af 69, BUN/Creatinine Ratio 25.3 H, Glucose 368 H, Calcium 8.9, Troponin I High Sens 45 03/20/22 09:15: B-Natriuretic Peptide 549.6 H Micro: Microbiology 03/20/22 09:50 Nasal Secretion SARS-CoV-2 & FLU Antigen (Rapid) - Final ABG Data ABG results: ABG 03/20/22 09:33 Specimen Type ART Sample Site R Brach pH 7.33 L Bicarbonate Actual 22.6 Total CO2 24 Base Excess -3 L O2 Saturation 97 O2 % 60 ABG pCO2 42.7 ABG pO2 93 O2 Delivery Device BiPAP Vent Mode NIV POC PEEP 10 Rhythm Strip Rhythm Strip: Sinus Tach Rate: 102 Ectopy: None Radiology Impression Chest X-Ray 03/20/22 09:39 IMPRESSION: Mild degree of CHF with superimposed bibasilar infiltrates worse at the left lung base. Electronically Signed: Steve Kang MD at 10:12 EST , Assessment & Plan Assessment/Plan (1) Respiratory failure: (2) Pulmonary edema: PLAN: Plan 1. Acute hypoxic respiratory failure secondary to acute flash pulmonary edema/acute exacerbation of diastolic CHF Patient presented on BiPAP with significant hypoxia and increased work of breathing Improved to 6 L of oxygen; Continue to encourage use of incentive spirometer Continue CHF protocol 2. Acute flash pulmonary edema secondary to worsening aortic stenosis/exacerbation of diastolic CHF, EF 65% 2D echo done on 03/19/22 showed moderately severe calcified aortic stenosis Patient's admitting BNP was more than 500, chest x-ray showed pulmonary edema We will continue with Lasix 40 mg IV twice daily Cardiology consult 3. Acute non-STEMI, unclear if is type I or type II, Patient has CAD status post stents Will start on Lovenox, continue aspirin, Plavix Trend troponins Cardiology consult 4. Type II DM, on metformin, will hold metformin Continue insulin sliding scale blood glucose checks 5. Hyperlipidemia/hypertension, blood pressures uncontrolled Continue on lisinopril and metoprolol Add hydralazine as needed 6. DVT PPx- on therapeutic Lovenox CODE STATUS?DNR CCA I discussed and explained in details the various types of CODE STATUS-full code, DNR CCA, DNR CC. Patient chose to be DNR CCA and does not want any aggressive cardiopulmonary resuscitation in the event of a cardiac arrest. Time spent discussing CODE STATUS 16 minutes Charges/Coding Visit Charges Inpatient E&M: 67027 Init Hosp L3 Procedures Hospitalists Procedures: 87654 Advncd Care Plan 30 Min
[2022-03-20 12:24] LABS: Troponin-I HS 4675 pg/mL (3.0-54.0)
[2022-03-20] MEDS: Furosemide 20 MG/2 ML VIAL IV (12:41)
[2022-03-20] MEDS: Furosemide 40 MG/4 ML Vial IV (15:44)
[2022-03-20] MEDS: 0.9% Saline Lock 10 ML Syringe IV (15:46)
[2022-03-20 17:16] LABS: Troponin-I HS 19744 pg/mL (3.0-54.0)
[2022-03-20] MEDS: Multivitamin (Healthy Eyes) Capsule 1 CAP PO (22:15)
[2022-03-20] MEDS: Sertraline 50 MG Tablet 25 MG PO (22:15)
[2022-03-20] MEDS: Metoprolol Tartrate 25 MG Tablet 12.5 MG PO (22:15)
[2022-03-20] MEDS: Lisinopril 5 MG Tablet PO (22:15)
[2022-03-20] MEDS: Insulin Lispro 100 UNIT/ML INSULN.PEN SC (22:16)
[2022-03-21] VITALS (21 sets, daily range): BP systolic 97–177; BP diastolic 49–82; PULSE 57–82; RESP 16–18; TEMP 36.5–36.6; O2SAT 93–96
[2022-03-21 00:45] LABS: Bedside Glucose 165 mg/dL (74-106)
[2022-03-21] MEDS: Aspirin E.C. 81 MG Tablet PO (05:39)
[2022-03-21] MEDS: Lisinopril 5 MG Tablet PO (05:39)
[2022-03-21] MEDS: Clopidogrel Bisulfate 75 MG Tablet PO (05:40)
[2022-03-21] MEDS: Metoprolol Tartrate 25 MG Tablet 12.5 MG PO ×2 (05:40→10:24)
[2022-03-21 07:02] LABS: Absolute Lymphocyte Count 2.11 X10^3/uL (0.83-4.51); Absolute Neutrophil Count 6.4 X10^3/uL (2.0-7.7); Basophil# 0.03 X10^3/uL; Basophil% 0.3 % (0-1); Eosinophil# 0.23 X10^3/uL; Eosinophils% 2.4 % (0-5); Hematocrit 43.8 % (37-47); Hemoglobin 14.9 g/dL (12.0-15.0); Lymphocyte # 2.11 X10^3/ul (0.83-4.51); Lymphocyte % 21.7 % (19-41); Mean Corpuscular Hgb 28.7 pg (27.0-32.0); Mean Corpuscular Volume 84.4 fL (81-99); Mean Platelet Vol. 9.9 fl (6.2-12.0); Monocyte# 0.92 X10^3/uL; Monocyte% 9.5 % (0-10); NRBC Flagged by Analyzer 0 % (0-5); Neutrophil # 6.38 X10^3/uL (2.7-7.7); Neutrophil % 65.7 % (47-70); Platelet Count 242 K/mm3 (150-450); RBC Distribution Width CV 12.8 % (11.6-14.6); RBC Distribution Width SD 39.4 fl (35.1-43.9); Red Blood Count 5.19 M/mm3 (4.2-5.4); White Blood Count 9.7 K/mm3 (4.4-11.0)
[2022-03-21 07:11] LABS: Bedside Glucose 187 mg/dL (74-106)
[2022-03-21 07:40] LABS: AST(SGOT) 83 U/L (15-37); Alanine Aminotransfer ALT/SGPT 36 U/L (13-56); Albumin, Serum 3.2 g/dL (3.2-5.0); Alkaline Phosphatase 53 U/L (45-117); Anion Gap 7 (5-15); BUN 18 mg/dL (7-18); Calcium,Total 9.1 mg/dL (8.5-10.1); Chloride 103 mmol/L (98-107); Creatinine, Serum 0.62 mg/dL (0.55-1.02); EST Glomerular Filtration Rate 97 mL/min (>60); Est Glom Filt Rate - Afr Amer 117 mL/min (>60); Globulin 3.2 g/dL (2.2-4.2); Glucose 169 mg/dL (74-106); Potassium 3.6 mmol/L (3.5-5.1); Protein, Total 6.4 g/dL (6.4-8.2); Sodium Level 138 mmol/L (136-145)
--- NOTE | 2022-03-21 10:30 | NURSING ---
report called to laboratory tester FRANCISCO singer.
--- NOTE | 2022-03-21 12:03 | CON.PCM.CA_ITS ---
Documented by User: Jeni ZIMMERMAN, PA 03/21/22 13:31 Assessment & Plan Assessment/Plan (1) Non-ST elevated myocardial infarction: (2) Moderate to severe aortic stenosis: (3) Presence of stent in coronary artery: (4) Atherosclerotic heart disease of [place] coronary artery without angina pectoris: QUALIFIERS: [place] vs. transplanted heart: [place] heart Qualified Code(s): I25.10 - Atherosclerotic heart disease of [place] coronary artery without angina pectoris (5) Essential hypertension: (6) HLD (hyperlipidemia): QUALIFIERS: Hyperlipidemia type: pure hypercholesterolemia Qualified Code(s): E78.00 - Pure hypercholesterolemia, unspecified; E78.0 - Pure hypercholesterolemia (7) PAD (peripheral artery disease): PLAN: Plan * NSTEMI: Pt underwent heart cath today. This demonstrated severe CAD, not amenable with PCI. Would like for her to consider CT referral for possible CABG with AVR. * Pt will continue with medical management of Plavix, Zetia, ASA, Lisinopril, Metoprolol, Lasix, Will readd Isosorbide. * RHC noted critical . Pt will be referred to CT surgery for consideration of CABG with AVR. * BP is not ideal, will titrate medications however do need be be careful that her BP is not too low with her critical and her severe CAD. HPI Consult Data Date of Consult: 03/21/22 HPI Narrative HPI Narrative: SOPHIA PRATHER, is a 87 F who presented to [facility] on 03/20/2022 with concerns over SOB while she was at a . The evening prior she had CP and nausea. She has a ?history of CAD status post RCA PTCA/stent (2016), hyperlipidemia, hypertension, moderate to severe aortic valve stenosis, with a history of bilateral carotid artery endarterectomy-remote. She had a TIA in 11/2020. She was in the office last week with concerns over CP, she was started on Isosorbide. Her CP improved. She did have an echo on 03/19 which demonstrates Mod-severe . Plan was to then pursue a heart cath on an OP basis. With her symptoms on elevated Troponin she was admitted for further evaluate. Her troponin trended /[id number]. Of note pt did have some CP today but currently does not have any. ? [facility] Medical History Aortic valve disorders Atherosclerotic heart disease of [place] coronary artery without angina pectoris Carotid stenosis, left Coronary artery disease Depression Diabetes Essential hypertension HLD (hyperlipidemia) Hypertension Moderate to severe aortic stenosis Non-smoker Nonrheumatic aortic (valve) stenosis Nonrheumatic mitral (valve) insufficiency Occlusion and stenosis of left carotid artery Occlusion and stenosis of right carotid artery Osteoporosis PAD (peripheral artery disease) Presence of stent in coronary artery (~07/10/16) TIA (transient ischemic attack) Home Medications nitroglycerin 0.4 mg sublingual tablet 0.4 mg sublingual Q5M PRN Chest Pain #20 tabs 07/11/16 [Rx Last Taken 03/19/22] aspirin 81 mg tablet,delayed release 81 mg PO DAILY HEART HEALTH 04/28/18 [History Last Taken 03/20/22] lisinopril 5 mg tablet 5 mg PO BID BLOOD PRESSURE 12/12/20 [History Last Taken 03/20/22] metformin 500 mg tablet 500 mg PO BID blood sugar 01/28/21 [History Last Taken 03/20/22] omega-3 250 ln-jwf-hgs-lutein 2.5 mg-zeaxanthin 0.5 mg capsule ([employer] [facility]) 1 cap PO BID EYE HEALTH 01/28/21 [History Last Taken 03/20/22] vitamin B complex 1 cap PO DAILY SUPPLEMENT 01/28/21 [History Last Taken 03/20/22] clopidogrel 75 mg tablet 75 mg PO DAILY BLOOD THINNER 03/20/22 [History Last Taken 03/20/22] ezetimibe 10 mg tablet 10 mg PO DAILY CHOLESTEROL 03/20/22 [History Last Taken 03/20/22] metoprolol tartrate 25 mg tablet 12.5 mg PO BID BLOOD PRESSURE 03/20/22 [History Last Taken 03/20/22] multivitamin with minerals 1 tab PO DAILY SUPPLEMENT 03/20/22 [History Last Taken 03/20/22] sertraline 25 mg tablet 25 mg PO QHS DEPRESSION 03/20/22 [History Last Taken 03/19/22] Allergy/AdvReac Type Severity Reaction Status Date / Time rosuvastatin AdvReac Severe Myalgias Verified 03/20/22 09:14 simvastatin AdvReac Severe myalgias Verified 03/20/22 09:14 Family History Father CAD (coronary artery disease) Hypertension Myocardial infarction, Onset Age: 80 Sister CVA (cerebral vascular accident), Onset Age: 66 Diabetes Arthritis Mother Cancer Thyroid Surgical History History of CEA (carotid endarterectomy) (~2010) History of hysterectomy History of left-sided carotid endarterectomy (05/05/17) Presence of coronary angioplasty implant and graft (~07/10/16) Social History Smoking Status: Never smoker second hand exposure: No alcohol intake: never substance use type: does not use caffeine: No ROS Constitutional Constitutional: Denies change in weight, chills, fatigue, frequent falls, headache(s) or lethargy Eyes Eyes: Denies acute decrease in peripheral vision, blurry vision or change in vision ENT HEENT: Denies dizziness, dry mouth, epistaxis, headache(s), tinnitus or vertigo Cardiovascular Cardiovascular: Reports chest pain at rest, chest pain with activity and dyspnea at rest; Denies claudication, dyspnea on exertion, edema, irregular heart rhythm, lightheadedness, orthopnea, orthostatic symptoms, palpitations or pedal edema Respiratory/Chest Respiratory/Chest: Reports dyspnea and dyspnea on exertion; Denies cough, tachypnea or wheezing Gastrointestinal Gastrointestinal: Denies abdominal pain, bloating, coffee ground emesis, diarrhea, heartburn, hematemesis, hematochezia, melena or nausea Genitourinary Genitourinary: Denies hematuria Musculoskeletal Musculoskeletal: Denies myalgias, numbness or tingling Neurologic Neurologic: Denies abnormal gait, abnormal speech, memory loss, paresthesias or weakness Physical Exam Const alert, oriented x3, no apparent distress and healthy appearing HEENT normocephalic, head/scalp atraumatic, hearing grossly normal bilaterally, external ears normal, external nose normal and moist oral mucous membranes Eyes PERRL, EOMs intact bilaterally, conjunctivae normal and no scleral icterus Neck no lymphadenopathy, supple and no JVD Resp no use of accessory muscles and clear to auscultation bilaterally Cardio regular rate, regular rhythm, S1 normal heart sound, S2 normal heart sound, no rub, no gallops, no clicks, no JVD and peripheral pulses 2+ throughout Heart Sounds: murmur systolic III/ harsh mid GI normal to inspection, nondistended, normoactive bowel sounds, soft to palpation, non-tender and non-distended Extremity normal to inspection, normal capillary refill, no clubbing, cyanosis or edema and no pedal edema Neuro oriented x3, CN's II-XII intact bilaterally, moves all extremities and no focal motor deficits Psych cooperative and affect normal Risk Stratification Risk Stratification Applicable: Yes Age >/= 65: Yes >/= 3 CAD Risk Factors (HTN, HLD, DM, family hx of CAD, or current smoker): Yes Aspirin Use in the Past 7 Days: Yes Severe Angina (>/= episodes in 24 hours): Yes EKG ST Changes >/= 0.5mm: No Positive Cardiac Marker: Yes CA[place] Risk Stratification Score: 5 [place] % Risk: 25% Risk Charges/Coding Visit Charges Office Visits / Consults: 81595 IP Consult L4 Objective Data Vital Signs: Vital Signs Temp Pulse Resp BP Pulse Ox O2 Del Method O2 Flow Rate 97.8 F 60 17 177/60 H 93 Room Air 94 03/21/22 09:32 03/21/22 10:24 03/21/22 09:32 03/21/22 10:24 03/21/22 09:32 03/21/22 09:32 03/21/22 03:00 FiO2 40 03/20/22 12:34 Oxygen Flow Rate (L/min) 94 Oxygen Delivery Method Room Air Weight: 130 lb Body Mass Index (BMI) 26.2 Intake & Output: Intake and Output for Last 24 Hours 03/19/22 03/20/22 03/21/22 23:59 23:59 23:59 Intake Total 240 / 240 Output Total 410 / 410 Balance 240 / 130 -410 / -410 Lab / Micro Data Result Diagrams: 03/21/22 06:55 03/21/22 06:55 Labs: Laboratory Results - last 24 hr 03/20/22 11:50: Troponin I High Sens 4675 H* 03/20/22 16:23: Troponin I High Sens 10260 H* 03/20/22 22:12: POC Glucose 165 H 03/21/22 06:24: POC Glucose 187 H 03/21/22 06:55: WBC 9.7, RBC 5.19, Hgb 14.9, Hct 43.8, MCV 84.4, MCH 28.7, MCHC 34.0 D, RDW Std Deviation 39.4, RDW Coeff of Jennifer 12.8, Plt Count 242, MPV 9.9, Immature Gran % (Auto) 0.400, Neut % (Auto) 65.7, Lymph % (Auto) 21.7, [place] % (Auto) 9.5, Eos % (Auto) 2.4, Baso % (Auto) 0.3, Absolute Neuts (auto) 6.4, Absolute Lymphs (auto) 2.11, Nucleated RBC % 0 03/21/22 06:55: Sodium 138, Potassium 3.6, Chloride 103, Carbon Dioxide 28.0, Anion Gap 7, BUN 18, Creatinine 0.62, Estim Creat Clear Calc 36.90, Est GFR (MDRD) Af Amer 117, Est GFR (MDRD) Non-Af 97, BUN/Creatinine Ratio 29.0 H, Glucose 169 H, Calcium 9.1, Total Bilirubin 1.10 H, AST 83 H, ALT 36, Alkaline Phosphatase 53, Total Protein 6.4, Albumin 3.2, Globulin 3.2, Albumin/Globulin Ratio 1.0 Micro: Microbiology 03/20/22 09:50 Nasal Secretion SARS-CoV-2 & FLU Antigen (Rapid) - Final Rhythm Strip Rhythm Strip: Sinus Tach Rate: 102 Ectopy: None Cardiology Labs/Tests 03/21/22 06:55: WBC 9.7, RBC 5.19, Hgb 14.9, Hct 43.8, MCV 84.4, MCH 28.7, MCHC 34.0 D, Plt Count 242, MPV 9.9, Immature Gran % (Auto) 0.400, Neut % (Auto) 65.7, Lymph % (Auto) 21.7, [place] % (Auto) 9.5, Eos % (Auto) 2.4, Baso % (Auto) 0.3, Absolute Neuts (auto) 6.4, Nucleated RBC % 0 03/21/22 06:55: Sodium 138, Potassium 3.6, Chloride 103, Carbon Dioxide 28.0, Anion Gap 7, BUN 18, Creatinine 0.62, Est GFR (MDRD) Af Amer 117, Est GFR (MDRD) Non-Af 97, BUN/Creatinine Ratio 29.0 H, Glucose 169 H, Calcium 9.1, Total Bilirubin 1.10 H Rhythm: EKG: ECHO: 03/19/2022 Left ventricular systolic function is normal. The estimated ejection fraction is 65 %. The left atrium is mildly enlarged. There is moderate mitral annular calcification. Extension of the mitral annular calcification onto the base of the posterior mitral valve leaflet. The mitral valve chordae are thickened and/or calcified. Mild mitral valve stenosis. Mild (1+) mitral valve insufficiency. Trivial tricuspid valve insufficiency. Moderate to severe calcific aortic valve stenosis. Trivial aortic valve insufficiency. Trivial pulmonic valve insufficiency. Right ventricular systolic pressure estimated to be 32 mmHg. Diastolic function is indeterminate. Cardiac Cath: PCI: Documented by User: Dr. Lio Lucas MD 03/21/22 17:59 Assessment & Plan Assessment/Plan (1) Non-ST elevated myocardial infarction: (2) Moderate to severe aortic stenosis: (3) Presence of stent in coronary artery: (4) Atherosclerotic heart disease of [place] coronary artery without angina pectoris: QUALIFIERS: [place] vs. transplanted heart: [place] heart Qualified Code(s): I25.10 - Atherosclerotic heart disease of [place] coronary artery without angina pectoris (5) Essential hypertension: (6) HLD (hyperlipidemia): QUALIFIERS: Hyperlipidemia type: pure hypercholesterolemia Qualified Code(s): E78.00 - Pure hypercholesterolemia, unspecified; E78.0 - Pure hypercholesterolemia (7) PAD (peripheral artery disease): PLAN: Plan * NSTEMI: Pt underwent heart cath today. This demonstrated severe CAD, not amenable with PCI. Would like for her to consider CT referral for possible CABG with AVR. * Pt will continue with medical management of Plavix, Zetia, ASA, Lisinopril, Metoprolol, Lasix, Will readd Isosorbide. * RHC noted critical . Pt will be referred to CT surgery for consideration of CABG with AVR. * BP is not ideal, will titrate medications however do need be be careful that her BP is not too low with her critical and her severe CAD. I independently review all the medical record of this patient patient underwent today cardiac catheterization have severe coronary atherosclerosis and severe calcific aortic valve stenosis. Left and right heart catheterization was done today We will plan for maximizing medical therapy and to discuss further cardiac care plan with the primary communications editor Dr. Almonte and the family in regards to SAVR with CABG, versus complex PCI and TAVR. Patient has preserved LV function with multivessel severe calcified coronary atherosclerosis with severe /aortic valve area 0.5 cm? using Hakki equation. HPI Consult Data Date of Consult: 03/21/22 [facility] Medical History Aortic valve disorders Atherosclerotic heart disease of [place] coronary artery without angina pectoris Carotid stenosis, left Coronary artery disease Depression Diabetes Essential hypertension HLD (hyperlipidemia) Hypertension Moderate to severe aortic stenosis Non-smoker Nonrheumatic aortic (valve) stenosis Nonrheumatic mitral (valve) insufficiency Occlusion and stenosis of left carotid artery Occlusion and stenosis of right carotid artery Osteoporosis PAD (peripheral artery disease) Presence of stent in coronary artery (~07/10/16) TIA (transient ischemic attack) Home Medications nitroglycerin 0.4 mg sublingual tablet 0.4 mg sublingual Q5M PRN Chest Pain #20 tabs 07/11/16 [Rx Last Taken 03/19/22] aspirin 81 mg tablet,delayed release 81 mg PO DAILY HEART HEALTH 04/28/18 [History Last Taken 03/20/22] lisinopril 5 mg tablet 5 mg PO BID BLOOD PRESSURE 12/12/20 [History Last Taken 03/20/22] metformin 500 mg tablet 500 mg PO BID blood sugar 01/28/21 [History Last Taken 03/20/22] omega-3 250 vm-ewc-mfv-lutein 2.5 mg-zeaxanthin 0.5 mg capsule ([employer]) 1 cap PO BID EYE HEALTH 01/28/21 [History Last Taken 03/20/22] vitamin B complex 1 cap PO DAILY SUPPLEMENT 01/28/21 [History Last Taken 03/20/22] clopidogrel 75 mg tablet 75 mg PO DAILY BLOOD THINNER 03/20/22 [History Last Taken 03/20/22] ezetimibe 10 mg tablet 10 mg PO DAILY CHOLESTEROL 03/20/22 [History Last Taken 03/20/22] metoprolol tartrate 25 mg tablet 12.5 mg PO BID BLOOD PRESSURE 03/20/22 [History Last Taken 03/20/22] multivitamin with minerals 1 tab PO DAILY SUPPLEMENT 03/20/22 [History Last Taken 03/20/22] sertraline 25 mg tablet 25 mg PO QHS DEPRESSION 03/20/22 [History Last Taken 03/19/22] Allergy/AdvReac Type Severity Reaction Status Date / Time rosuvastatin AdvReac Severe Myalgias Verified 03/20/22 09:14 simvastatin AdvReac Severe myalgias Verified 03/20/22 09:14 Family History Father CAD (coronary artery disease) Hypertension Myocardial infarction, Onset Age: 80 Sister CVA (cerebral vascular accident), Onset Age: 66 Diabetes Arthritis Mother Cancer Thyroid Surgical History History of CEA (carotid endarterectomy) (~2010) History of hysterectomy History of left-sided carotid endarterectomy (05/05/17) Presence of coronary angioplasty implant and graft (~07/10/16) Social History Smoking Status: Never smoker second hand exposure: No alcohol intake: never substance use type: does not use caffeine: No Risk Stratification Age >/= 65: Yes CA[place] Risk Stratification Score: 5 [place] % Risk: 25% Risk Lab / Micro Data Result Diagrams: 03/21/22 06:55 03/21/22 06:55
[2022-03-21 12:31] LABS: Base Excess 2 mmol/L (-2 to +2); Bicarbonate 25.9 mmol/L (22-26); Blood Gas Specimen Type ART; PO2 57 mmHG (75-100); SO2 91 % (95-99); Total Carbon Dioxide 27 mmol/L; pCO2 36.1 mmHg (35-45); pH 7.46 (7.35-7.45)
[2022-03-21 12:36] LABS: Blood Gas Specimen Type VEN; VBG BASE EXCESS 5 mmol/L (-1.0-3.5); VBG Bicarbonate 30 mmol/L (22-26); VBG PO2 33 mmHg (25-40); VBG SO2 64 % (50-70); VBG TCO2 31 mmol/L (23-33); VBG pCO2 44.9 mmHg (41-51); VBG pH 7.43 (7.32-7.42)
--- NOTE | 2022-03-21 12:55 | PN.HOSP_ITS ---
Subjective Subjective Follow-up on acute CHF/severe multivessel coronary artery disease: Patient was seen and examined. She underwent cardiac cath today, findings showed severe multivessel coronary artery disease. She also had critical aortic valve, valve area of 0.5cm2. Objective Data Objective Data Vital Signs: Vital Signs Temp Pulse Resp BP Pulse Ox O2 Del Method O2 Flow Rate 97.8 F 60 17 177/60 H 93 Room Air 94 03/21/22 09:32 03/21/22 10:24 03/21/22 09:32 03/21/22 10:24 03/21/22 09:32 03/21/22 09:32 03/21/22 03:00 FiO2 40 03/20/22 12:34 Oxygen Flow Rate (L/min) 94 Oxygen Delivery Method Room Air Weight: 58.967 kg Body Mass Index (BMI) 26.2 Intake & Output: Intake and Output for Last 24 Hours 03/19/22 03/20/22 03/21/22 23:59 23:59 23:59 Intake Total 240 / 240 Output Total 410 / 410 Balance 240 / 130 -410 / -410 Lab / Micro Data Result Diagrams: 03/21/22 06:55 03/21/22 06:55 Labs: Laboratory Results - last 24 hr 03/20/22 16:23: Troponin I High Sens 83514 H* 03/20/22 22:12: POC Glucose 165 H 03/21/22 06:24: POC Glucose 187 H 03/21/22 06:55: WBC 9.7, RBC 5.19, Hgb 14.9, Hct 43.8, MCV 84.4, MCH 28.7, MCHC 34.0 D, RDW Std Deviation 39.4, RDW Coeff of Jennifer 12.8, Plt Count 242, MPV 9.9, Immature Gran % (Auto) 0.400, Neut % (Auto) 65.7, Lymph % (Auto) 21.7, [place] % (Auto) 9.5, Eos % (Auto) 2.4, Baso % (Auto) 0.3, Absolute Neuts (auto) 6.4, Absolute Lymphs (auto) 2.11, Nucleated RBC % 0 03/21/22 06:55: Sodium 138, Potassium 3.6, Chloride 103, Carbon Dioxide 28.0, Anion Gap 7, BUN 18, Creatinine 0.62, Estim Creat Clear Calc 36.90, Est GFR (MDRD) Af Amer 117, Est GFR (MDRD) Non-Af 97, BUN/Creatinine Ratio 29.0 H, Glucose 169 H, Calcium 9.1, Total Bilirubin 1.10 H, AST 83 H, ALT 36, Alkaline Phosphatase 53, Total Protein 6.4, Albumin 3.2, Globulin 3.2, Albumin/Globulin Ratio 1.0 Micro: Microbiology 03/20/22 09:50 Nasal Secretion SARS-CoV-2 & FLU Antigen (Rapid) - Final ABG Data ABG results: ABG 03/21/22 03/21/22 12:23 12:29 Specimen Type ART RUPERT pH 7.46 H Bicarbonate Actual 25.9 Total CO2 27 Base Excess 2 O2 Saturation 91 L ABG pCO2 36.1 ABG pO2 57 L VBG pH 7.43 H VBG pO2 33 VBG HCO3 30 H VBG Total CO2 31 VBG O2 Sat (Calc) 64 VBG Base Excess 5 H POC Mix VBG pCO2 Pt Tmp 44.9 Rhythm Strip Rhythm Strip: Sinus Tach Rate: 102 Ectopy: None Physical Exam Narrative Physical exam: General: Alert, Oriented x3, Cooperative, comfortable on room air HEENT: Atraumatic Oral: Moist Mucosa Neck: Supple Lungs: Diminished to auscultation Cardiovascular: HS I+II, regular, no murmurs Abdomen: Bowel Sounds Present, Soft, Non Tender Extremities: No bilateral leg edema Skin: No rashes, No breakdown Neurological: Grossly intact Psych/Mental Status: Appropriate Assessment & Plan Assessment/Plan (1) Respiratory failure: (2) Pulmonary edema: PLAN: Plan 1. Acute hypoxic respiratory failure secondary to acute flash pulmonary edema/acute exacerbation of diastolic CHF, resolved Patient presented on BiPAP with significant hypoxia and increased work of breathing Currently on room air, continue to encourage use of incentive spirometer 2. Acute flash pulmonary edema secondary to worsening aortic stenosis/exacerbation of diastolic CHF, EF 65% 2D echo done on 03/19/22 showed moderately severe calcified aortic stenosis Patient's admitting BNP was more than 500, chest x-ray showed pulmonary edema Continue with Lasix 40 mg IV twice daily Cardiology consult 3. Acute non-STEMI, type I, secondary to severe multivessel, critical aortic stenosis Patient has CAD status post stents, Cardiology will follow-up for further discussion on the next stage of management continue aspirin, Plavix , metoprolol, lisinopril 4. Hypertension, uncontrolled, metoprolol increased to 25 mg twice daily Continue lisinopril, continue to monitor blood pressure 5. Type II DM, on metformin, will hold metformin Continue insulin sliding scale blood glucose checks 6. DVT PPx-not to be started tomorrow as patient has had cardiac cath today Charges/Coding Visit Charges Inpatient E&M: 48522 [facility] Hosp L3
--- NOTE | 2022-03-21 13:28 | OP.PCM_ITS ---
Report of Operation Date of Procedure: 03/21/22
--- NOTE | 2022-03-21 13:28 | PCM.OPRPT ---
Report of Operation Date of Procedure: 03/21/22
--- NOTE | 2022-03-21 13:33 | PRO.PCM_ITS ---
Procedure Report Date of Procedure: 03/21/22 Procedure performed; 1. Moderate sedation 2. Selective left coronary angiography 3. Selective right coronary angiography 4. Left ventriculogram 5. Measurement of LVEDP 6. Aortogram 7. Right heart catheterization with measurement of cardiac output using thermodilution, measurement of PA,PCWP,RV,RA Measurement of oxygen saturation AOand PA 8. Calculation of aortic valve area using Brandi equation Access; 1. 5 Austrian sheath to right common femoral artery 2. 7 Austrian sheaths to right common femoral vein Consent; Risk and benefit of procedure explained detail patient like to proceed informed consent obtained Preprocedure diagnosis: 87-year-old patient who presented with symptoms of chest pain Patient known to have history of CAD And echocardiogram she has moderate to severe calcific aortic valve stenosis She has a PCI and stent of the RCA And she had non-ST elevation MS on this presentation with symptoms of chest pain and mild elevation of cardiac biomarkers. In addition to history of hypertension hyperlipidemia and peripheral arterial disease. As she had continued to have symptoms of chest pain with a mild elevation of cardiac biomarkers she was treated with medical therapy And schedule for left and right heart catheterization to assess for progression of CAD as well to evaluate severity of aortic valve stenosis. Echocardiographic study on this admission showed LV function preserved ejection fraction 65%, moderate to severe calcific aortic valve stenosis, mild MR with mild left atrial enlargement Procedure in detail; Under fluoroscopic guidance we proceed with a 7 Austrian [place] catheter with the use of a [place] wire Catheter was placed at the right pulmonary artery, PA pressure measured as well as a cardiac of Covid using thermodilution And the catheter was advanced to the distal portion of the right pulmonary artery wedge pressure recorded And then RV and RA were measured as well in addition to the oxygen saturation of the AO and the PA All parameters of the measurements were placed in the chart Then will proceed with selective cholangiography using 5 Austrian JL 4 advanced Sophia and cannulated the left main without difficulty, and the catheter exchanged for 5 Austrian JR4 and cannulated the RCA. Multiple views of the left and right coronary system were obtained The catheter exchanged for a pigtail catheter placed in the mid left ventricle and elevated echogram obtained 30 degree DE PAZ projection using a total of 30 cc of contrast pullback pressure recorded, and aortogram was performed in 30 degree using a total of 30 cc of contrast Findings hemodynamic LV systolic function preserved ejection fraction in the range of around 55-60% No mitral regurgitation noted LVEDP measuring around 50 mmHg Peak gradient across aortic valve is measured at 31 mmHg Coronary angiography; 1. Left main is calcified with extension of calcification into the LAD and the left circumflex The left main coronary artery is normal angiographically Bifurcating into LAD as well as left circumflex Mid LAD at severe diffuse disease of 90% stenosis It is a dual LAD system The distal portion of the LAD has no significant atherosclerosis with good distal targets D1 has proximal 90% stenosis Ostial circumflex artery had 90% with extension of atherosclerosis in his OM 1 branch RCA large dominant patency of the RCA stent with nonobstructive in-stent stenosis of around 30 The distal RCA had 80% stenosis. Conclusion recommendations; This patient has severe multivessel calcified coronary atherosclerosis which explain her presentation of symptoms of chest pain with non-ST elevation MS In addition she has a severe aortic valve stenosis using the right heart catheter parameters HR cardiac output is 2.5 and the gradient is clear with of the gradient is around 5.2 The aortic valve area will be 0.5 cm S[place] which is critical aortic stenosis There is no aortic incompetence on the aortogram. I discussed with the daughter the finding of the cardiac catheterization, according to the daughter her mom has been under stress because she has been taking care of her father who had history of dementia and living at home and she has a lot of mental stress and discomfort patient will be on medical treatment. Patient has severe multivessel, coronary artery disease, with severe calcific aortic valve stenosis, with normal LV systolic function The primary drupal architect Dr. Almonte will discuss further cardiac care plan and recommendation Patient will be on medical therapy we will add long-acting nitroglycerin she been stable clinically she does not have any active chest pain postprocedure and no complication in the Musical Instrument Mechanic. Lio Lucas MD,FAC,[facility]
[2022-03-21] MEDS: 0.9% Normal Saline 1,000 ML 75 ML IV (14:21)
[2022-03-21] MEDS: Vitamin B Comp W-C Capsule 1 CAP PO (14:49)
[2022-03-21] MEDS: Multivitamin (Healthy Eyes) Capsule 1 CAP PO ×2 (14:49→22:23)
[2022-03-21] MEDS: Ezetimibe 10 MG Tablet PO (14:49)
[2022-03-21] MEDS: Isosorbide Mononitrate 30 MG Tablet PO (14:49)
[2022-03-21] MEDS: Multivitamins,Ther W-Minerals Tablet 1 TABLET PO (14:49)
--- NOTE | 2022-03-21 16:56 | CASEMGMT ---
FRANCISCO MONROE Discharge Planning Assessment: Face to Face with patient for initial transition planning/care coordination assessment.?Pt alert, oriented and agreeable to participating in the assessment. FRANCISCO MONROE introduced self and role at [facility], Pt voiced understanding.? Care providers, pharmacy,?and demographics verified. Pt's daughter Debra at bedside and pt provided permission to speak in front of Debra. ? PCP: Josephine Specialists: Suzy (cardiology), sees an optomologist in [place] for macular degeneration Preferred Pharmacy: [facility] Insurance: Self Pay: pt's daughter states the community pays for pt's healthcare since she does not have an income. It is not the [employer] and they consider this to be self pay. Prescription Benefit:?See above Living Will/HPOA: Yes, HPOA is pt's son Nuno LNOK: Pt's spouse but he is currently on hospice and has dementia. Pt's children are supportive of pt. Living Arrangements: pt lives with spouse in a single story home with no steps to enter. Pt's home is in close proximity to pt's daughter Debra and other children. Pt has been independent with ADLs including cooking and household tasks. Pt's granddaughter comes weekly to help clean and do laundry. Transportation: Hires a auto driver DME: grab bars in the shower. Pt does not currently have DME but has a walker, wheelchair and BSC for her . ? Plan: Pt plans to return home with the support of her family. Pt states they plan to discuss next steps in her cardiac care with Dr. Almonte tomorrow. Will follow for determination of plan of care and discharge needs. Rod Ellis RN CM
[2022-03-21 18:56] LABS: Bedside Glucose 135 mg/dL (74-106)
[2022-03-21] MEDS: Insulin Lispro 100 UNIT/ML INSULN.PEN SC (22:22)
[2022-03-21] MEDS: Sertraline 50 MG Tablet 25 MG PO (22:23)
[2022-03-21 23:50] LABS: Bedside Glucose 188 mg/dL (74-106)
[2022-03-22] VITALS (15 sets, daily range): BP systolic 124–183; BP diastolic 48–70; PULSE 64–87; RESP 14–18; TEMP 36.6–36.9; O2SAT 92–96
[2022-03-22] MEDS: hydrALAZINE 20 MG/ML Vial 5 MG IV (04:37)
[2022-03-22] MEDS: 0.9% Saline Lock 10 ML Syringe IV ×4 (04:37→22:11)
[2022-03-22 05:39] LABS: Absolute Lymphocyte Count 1.88 X10^3/uL (0.83-4.51); Absolute Neutrophil Count 5.2 X10^3/uL (2.0-7.7); Basophil# 0.05 X10^3/uL; Basophil% 0.6 % (0-1); Eosinophil# 0.31 X10^3/uL; Eosinophils% 3.7 % (0-5); Hematocrit 41.8 % (37-47); Hemoglobin 13.7 g/dL (12.0-15.0); Lymphocyte # 1.88 X10^3/ul (0.83-4.51); Lymphocyte % 22.3 % (19-41); Mean Corp Hgb Conc 32.8 g/dL (32-36); Mean Corpuscular Hgb 28.5 pg (27.0-32.0); Mean Corpuscular Volume 86.9 fL (81-99); Mean Platelet Vol. 10.5 fl (6.2-12.0); Monocyte# 0.95 X10^3/uL; Monocyte% 11.3 % (0-10); NRBC Flagged by Analyzer 0 % (0-5); Neutrophil # 5.22 X10^3/uL (2.7-7.7); Neutrophil % 61.7 % (47-70); Platelet Count 216 K/mm3 (150-450); RBC Distribution Width CV 12.9 % (11.6-14.6); RBC Distribution Width SD 40.8 fl (35.1-43.9); Red Blood Count 4.81 M/mm3 (4.2-5.4); White Blood Count 8.4 K/mm3 (4.4-11.0)
[2022-03-22 06:14] LABS: AST(SGOT) 36 U/L (15-37); Alanine Aminotransfer ALT/SGPT 30 U/L (13-56); Albumin, Serum 2.8 g/dL (3.2-5.0); Alkaline Phosphatase 47 U/L (45-117); Anion Gap 5 (5-15); BUN 23 mg/dL (7-18); BUN/Creat Ratio 41.7 RATIO (10-20); Calcium,Total 8.5 mg/dL (8.5-10.1); Chloride 106 mmol/L (98-107); Creatinine, Serum 0.55 mg/dL (0.55-1.02); EST Glomerular Filtration Rate 111 mL/min (>60); Est Glom Filt Rate - Afr Amer 134 mL/min (>60); Estimated Creatinine Clearance 37.67 ml/min; Globulin 2.8 g/dL (2.2-4.2); Glucose 159 mg/dL (74-106); Potassium 3.9 mmol/L (3.5-5.1); Protein, Total 5.6 g/dL (6.4-8.2); Sodium Level 138 mmol/L (136-145)
[2022-03-22] MEDS: Insulin Lispro 100 UNIT/ML INSULN.PEN SC ×3 (06:32→22:03)
[2022-03-22 06:55] LABS: Bedside Glucose 170 mg/dL (74-106)
[2022-03-22] MEDS: Multivitamins,Ther W-Minerals Tablet 1 TABLET PO (07:51)
[2022-03-22] MEDS: Aspirin E.C. 81 MG Tablet PO (07:51)
[2022-03-22] MEDS: Metoprolol Tartrate 25 MG Tablet 12.5 MG PO (07:52)
[2022-03-22] MEDS: Isosorbide Mononitrate 30 MG Tablet PO (10:06)
[2022-03-22] MEDS: Clopidogrel Bisulfate 75 MG Tablet PO (10:06)
[2022-03-22] MEDS: Lisinopril 5 MG Tablet PO ×2 (10:06→22:02)
[2022-03-22] MEDS: Vitamin B Comp W-C Capsule 1 CAP PO (10:06)
[2022-03-22] MEDS: Furosemide 40 MG/4 ML Vial IV ×2 (10:07→18:11)
[2022-03-22] MEDS: Ezetimibe 10 MG Tablet PO (10:07)
[2022-03-22] MEDS: Metoprolol Tartrate 25 MG Tablet PO ×2 (10:07→22:02)
[2022-03-22] MEDS: Multivitamin (Healthy Eyes) Capsule 1 CAP PO ×2 (10:07→22:02)
--- NOTE | 2022-03-22 10:48 | PCM.PN.HOSP ---
Subjective Subjective Patient is an 87-year-old lady with multiple comorbidities admitted with progressive shortness of breath and assessment of acute hypoxic respiratory failure secondary to combination of acute flash pulmonary edema made placed on BiPAP admitted to monitored bed for further management Objective Data Objective Data Vital Signs: Vital Signs Temp Pulse Resp BP Pulse Ox O2 Del Method O2 Flow Rate 98.1 F 71 18 149/51 H 96 Room Air 94 03/22/22 10:04 03/22/22 10:07 03/22/22 10:04 03/22/22 10:04 03/22/22 10:04 03/22/22 10:04 03/21/22 22:00 FiO2 40 03/20/22 12:34 Oxygen Flow Rate (L/min) 94 Oxygen Delivery Method Room Air Weight: 60.2 kg Body Mass Index (BMI) 26.2 Intake & Output: Intake and Output for Last 24 Hours 03/20/22 03/21/22 03/22/22 23:59 23:59 23:59 Intake Total 240 / 240 200 / 200 1000 / 1000 Output Total 910 / 1210 600 / 600 Balance 240 / 130 -710 / -1010 400 / 400 Lab / Micro Data Result Diagrams: 03/22/22 05:15 03/22/22 05:15 Labs: Laboratory Results - last 24 hr 03/21/22 18:24: POC Glucose 135 H 03/21/22 22:21: POC Glucose 188 H 03/22/22 05:15: WBC 8.4, RBC 4.81, Hgb 13.7, Hct 41.8, MCV 86.9, MCH 28.5, MCHC 32.8, RDW Std Deviation 40.8, RDW Coeff of Jennifer 12.9, Plt Count 216, MPV 10.5, Immature Gran % (Auto) 0.400, Neut % (Auto) 61.7, Lymph % (Auto) 22.3, [place] % (Auto) 11.3 H, Eos % (Auto) 3.7, Baso % (Auto) 0.6, Absolute Neuts (auto) 5.2, Absolute Lymphs (auto) 1.88, Nucleated RBC % 0 03/22/22 05:15: Sodium 138, Potassium 3.9, Chloride 106, Carbon Dioxide 27.0, Anion Gap 5, BUN 23 H, Creatinine 0.55, Estim Creat Clear Calc 37.67, Est GFR (MDRD) Af Amer 134, Est GFR (MDRD) Non-Af 111, BUN/Creatinine Ratio 41.7 H, Glucose 159 H, Calcium 8.5, Total Bilirubin 0.90, AST 36, ALT 30, Alkaline Phosphatase 47, Total Protein 5.6 L, Albumin 2.8 L, Globulin 2.8, Albumin/Globulin Ratio 1.0 03/22/22 06:15: POC Glucose 170 H Micro: Microbiology 03/20/22 09:50 Nasal Secretion SARS-CoV-2 & FLU Antigen (Rapid) - Final ABG Data ABG results: ABG 03/21/22 03/21/22 12:23 12:29 Specimen Type ART RUPERT pH 7.46 H Bicarbonate Actual 25.9 Total CO2 27 Base Excess 2 O2 Saturation 91 L ABG pCO2 36.1 ABG pO2 57 L VBG pH 7.43 H VBG pO2 33 VBG HCO3 30 H VBG Total CO2 31 VBG O2 Sat (Calc) 64 VBG Base Excess 5 H POC Mix VBG pCO2 Pt Tmp 44.9 Rhythm Strip Rhythm Strip: Sinus Tach Rate: 102 Ectopy: None Physical Exam Narrative GENERAL: cooperative HEENT: Atraumatic; normocephalic EYES; Anicteric, Normal Conjunctiva NECK; supple, normal thyroid, RESPIRATORY: Diminished to auscultation CARDIOVASCULAR: Regular S1 S2, systolic murmur GI: soft, normoactive bowel sounds, : No Renal angle tenderness; EXTREMITIES: No edema, no clubbing, MUSCULOSKELETAL: no muscle wasting NEURO: Awake; no lateralizing signs. SKIN: No Rash PSYCH; Flat affect Assessment & Plan Assessment/Plan (1) Respiratory failure: (2) Pulmonary edema: PLAN: Plan Patient is an 87-year-old lady with multiple comorbidities admitted with progressive shortness of breath and assessment of acute hypoxic respiratory failure secondary to combination of acute flash pulmonary edema made placed on BiPAP admitted to monitored bed for further management 1. Acute hypoxic respiratory failure secondary to acute on chronic CHF with preserved ejection fraction with pulmonary edema ? Patient placed on a monitored bed managed with noninvasive ventilation BiPAP subsequently weaned off also managed with diuretics 2. Acute on chronic congestive heart failure with preserved ejection fraction ? Management as discussed above 2D echo results are as below Left ventricular systolic function is normal. The estimated ejection fraction is 65 %. The left atrium is mildly enlarged. There is moderate mitral annular calcification. Extension of the mitral annular calcification onto the base of the posterior mitral valve leaflet. The mitral valve chordae are thickened and/or calcified. Mild mitral valve stenosis. Mild (1+) mitral valve insufficiency. Trivial tricuspid valve insufficiency. Moderate to severe calcific aortic valve stenosis. Trivial aortic valve insufficiency. Trivial pulmonic valve insufficiency. Right ventricular systolic pressure estimated to be 32 mmHg. Diastolic function is indeterminate. 3. Acute non-STEMI type I ?. Patient was managed per protocol. Consultation placed to cardiology. Patient underwent left heart catheterization results are as below which demonstrated multivessel disease. Further recommendations as per cardiology 4. Valvular heart disease ?. Patient left heart catheterization demonstrated severe aortic valve stenosis with an area of 0.5 cm?. Subsequent recommendation and management as per cardiology 5. Hypertension - Blood pressure controlled, home medications continued with dose adjustment as needed 6. Diabetes mellitus type II -patient's oral hypoglycemics held. Placed on long acting insulin, Accu-Cheks a.c. and at bedtime and covered with sliding scale insulin 7. Dyslipidemia ? Patient is on Zetia did continue 8. Depression ? Patient is on SSRI did continue 9. DVT prophylaxis ? LA Lovenox Charges/Coding Visit Charges Inpatient E&M: 15438 Subs Hosp L2
[2022-03-22] MEDS: Enoxaparin 40 MG/0.4 ML Syringe SC (12:54)
[2022-03-22 13:15] LABS: Bedside Glucose 128 mg/dL (74-106)
--- NOTE | 2022-03-22 14:13 | PCM.PN.CARD ---
Subjective Subjective I saw this patient today at bedside along with the nursing staff Family sons and daughters were at bedside at time of evaluation She does not have any active chest pain. Objective Data Vital Signs: Vital Signs Temp Pulse Resp BP Pulse Ox O2 Del Method O2 Flow Rate 98.1 F 66 18 149/51 H 96 Room Air 94 03/22/22 10:04 03/22/22 12:30 03/22/22 10:04 03/22/22 10:04 03/22/22 10:04 03/22/22 10:04 03/21/22 22:00 FiO2 40 03/20/22 12:34 Oxygen Flow Rate (L/min) 94 Oxygen Delivery Method Room Air Weight: 132 lb 11.492 oz Body Mass Index (BMI) 26.2 Intake & Output: Intake and Output for Last 24 Hours 03/20/22 03/21/22 03/22/22 23:59 23:59 23:59 Intake Total 240 / 240 200 / 200 1240 / 1240 Output Total 910 / 1210 600 / 600 Balance 240 / 130 -710 / -1010 640 / 640 Lab / Micro Data Result Diagrams: 03/22/22 05:15 03/22/22 05:15 Labs: Laboratory Results - last 24 hr 03/21/22 18:24: POC Glucose 135 H 03/21/22 22:21: POC Glucose 188 H 03/22/22 05:15: WBC 8.4, RBC 4.81, Hgb 13.7, Hct 41.8, MCV 86.9, MCH 28.5, MCHC 32.8, RDW Std Deviation 40.8, RDW Coeff of Jennifer 12.9, Plt Count 216, MPV 10.5, Immature Gran % (Auto) 0.400, Neut % (Auto) 61.7, Lymph % (Auto) 22.3, [place] % (Auto) 11.3 H, Eos % (Auto) 3.7, Baso % (Auto) 0.6, Absolute Neuts (auto) 5.2, Absolute Lymphs (auto) 1.88, Nucleated RBC % 0 03/22/22 05:15: Sodium 138, Potassium 3.9, Chloride 106, Carbon Dioxide 27.0, Anion Gap 5, BUN 23 H, Creatinine 0.55, Estim Creat Clear Calc 37.67, Est GFR (MDRD) Af Amer 134, Est GFR (MDRD) Non-Af 111, BUN/Creatinine Ratio 41.7 H, Glucose 159 H, Calcium 8.5, Total Bilirubin 0.90, AST 36, ALT 30, Alkaline Phosphatase 47, Total Protein 5.6 L, Albumin 2.8 L, Globulin 2.8, Albumin/Globulin Ratio 1.0 03/22/22 06:15: POC Glucose 170 H 03/22/22 12:56: POC Glucose 128 H Rhythm Strip Rhythm Strip: Sinus Tach Rate: 102 Ectopy: None Cardiology Labs/Tests 03/22/22 05:15: WBC 8.4, RBC 4.81, Hgb 13.7, Hct 41.8, MCV 86.9, MCH 28.5, MCHC 32.8, Plt Count 216, MPV 10.5, Immature Gran % (Auto) 0.400, Neut % (Auto) 61.7, Lymph % (Auto) 22.3, [place] % (Auto) 11.3 H, Eos % (Auto) 3.7, Baso % (Auto) 0.6, Absolute Neuts (auto) 5.2, Nucleated RBC % 0 03/22/22 05:15: Sodium 138, Potassium 3.9, Chloride 106, Carbon Dioxide 27.0, Anion Gap 5, BUN 23 H, Creatinine 0.55, Est GFR (MDRD) Af Amer 134, Est GFR (MDRD) Non-Af 111, BUN/Creatinine Ratio 41.7 H, Glucose 159 H, Calcium 8.5, Total Bilirubin 0.90 Rhythm: Normal sinus rhythm ECHO: LV systolic function preserved with ejection fraction 65 Moderate mitral annular calcification extending into the posterior mitral valve leaflet With a mild MR Moderate to severe calcific aortic valve stenosis Cardiac Cath: Finding of left/right heart catheterization revealed an echocardiographic evaluation Severe multivessel CAD involving LAD, circumflex and RCA Complex coronary lesions, normal LV function, severe aortic valve stenosis with aortic valve area 0.5 cm? Physical Exam Cardio Cardio Narrative: Cardiac rhythm is normal sinus rhythm Cardiac exam S1-S2 is regular Systolic murmur heard in the aortic area consistent with aortic stenosis Chest examination clear to auscultation bilateral. 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 transplanted heart: [place] heart Qualified Code(s): I25.10 - Atherosclerotic heart disease of [place] coronary artery without angina pectoris (7) PAD (peripheral artery disease): (8) Chest pain: (9) Moderate to severe aortic stenosis: PLAN: Plan Elderly 87-year-old patient who presented with symptoms of chest pain Patient has multiple medical comorbidities and then she was admitted this time with symptoms shortness of breath chest pain and had pulm edema treated with medical therapy and BiPAP She has chronic heart failure diastolic heart failure Underwent cardiac catheterization including left and right heart cath Which revealed severe multivessel CAD involving the left anterior descending, left circumflex and significant stenosis distal to the RCA stent Patient also has bilateral carotid endarterectomy, hyperlipidemia Cardiac care plan recommendations; 1. I explained in detail cardiac care plan in regard to this elderly 87-year-old patient who had significant coronary atherosclerosis and severe aortic stenosis The LV systolic function is preserved options of cardiac care plan discussed with referral to [facility] to discuss CABG plus SAVR versus complex PCI with TAVR Patient and family would like to discuss his plans as he is 87-year-old She remains a stable resting symptoms shortness of breath and chest pain resolved We will continue medical treatment Also will discuss the cardiac care plan with her primary network support technician Dr. Almonte
[2022-03-22 17:10] LABS: Bedside Glucose 153 mg/dL (74-106)
[2022-03-22] MEDS: Sertraline 50 MG Tablet 25 MG PO (22:01)
[2022-03-22 22:50] LABS: Bedside Glucose 195 mg/dL (74-106)
[2022-03-23] VITALS (11 sets, daily range): BP systolic 144–160; BP diastolic 51–68; PULSE 64–81; RESP 18; TEMP 36.2–36.6; O2SAT 93–96
[2022-03-23] MEDS: Insulin Lispro 100 UNIT/ML INSULN.PEN SC ×4 (06:25→22:24)
[2022-03-23 06:55] LABS: Bedside Glucose 169 mg/dL (74-106)
--- NOTE | 2022-03-23 08:11 | PCM.PN.HOSP ---
Subjective Subjective Patient seen denies chest pain this AM. Discussions were held with family by cardiology regarding options of treatment. Patient's family wanted to think about whether to proceed with aggressive treatment. Family to relay the decision back to cardiology Objective Data Objective Data Vital Signs: Vital Signs Temp Pulse Resp BP Pulse Ox O2 Del Method O2 Flow Rate 97.2 F L 64 18 144/51 H 93 Room Air 94 03/23/22 03:10 03/23/22 07:15 03/23/22 03:10 03/23/22 03:10 03/23/22 03:10 03/23/22 03:10 03/21/22 22:00 FiO2 40 03/20/22 12:34 Oxygen Flow Rate (L/min) 94 Oxygen Delivery Method Room Air Weight: 58.9 kg Body Mass Index (BMI) 26.2 Intake & Output: Intake and Output for Last 24 Hours 03/21/22 03/22/22 03/23/22 23:59 23:59 23:59 Intake Total 200 / 200 1360 / 1360 Output Total 910 / 1210 750 / 1400 650 / 650 Balance -710 / -1010 610 / -40 -650 / -650 Lab / Micro Data Result Diagrams: 03/22/22 05:15 03/22/22 05:15 Labs: Laboratory Results - last 24 hr 03/22/22 12:56: POC Glucose 128 H 03/22/22 16:49: POC Glucose 153 H 03/22/22 22:01: POC Glucose 195 H 03/23/22 06:23: POC Glucose 169 H Micro: Microbiology 03/20/22 09:50 Nasal Secretion SARS-CoV-2 & FLU Antigen (Rapid) - Final Rhythm Strip Rhythm Strip: Sinus Tach Rate: 102 Ectopy: None Physical Exam Narrative GENERAL: cooperative HEENT: Atraumatic; normocephalic EYES; Anicteric, Normal Conjunctiva NECK; supple, normal thyroid, RESPIRATORY: Diminished to auscultation CARDIOVASCULAR: Regular S1 S2, systolic murmur GI: soft, normoactive bowel sounds, : No Renal angle tenderness; EXTREMITIES: No edema, no clubbing, MUSCULOSKELETAL: no muscle wasting NEURO: Awake; no lateralizing signs. SKIN: No Rash PSYCH; Flat affect Assessment & Plan Assessment/Plan (1) Respiratory failure: (2) Pulmonary edema: PLAN: Plan Patient is an 87-year-old lady with multiple comorbidities admitted with progressive shortness of breath and assessment of acute hypoxic respiratory failure secondary to combination of acute flash pulmonary edema made placed on BiPAP admitted to monitored bed for further management 1. Acute hypoxic respiratory failure secondary to acute on chronic CHF with preserved ejection fraction with pulmonary edema ? Patient placed on a monitored bed managed with noninvasive ventilation BiPAP subsequently weaned off also managed with diuretics 2. Acute on chronic congestive heart failure with preserved ejection fraction ? Management as discussed above 2D echo results are as below Left ventricular systolic function is normal. The estimated ejection fraction is 65 %. The left atrium is mildly enlarged. There is moderate mitral annular calcification. Extension of the mitral annular calcification onto the base of the posterior mitral valve leaflet. The mitral valve chordae are thickened and/or calcified. Mild mitral valve stenosis. Mild (1+) mitral valve insufficiency. Trivial tricuspid valve insufficiency. Moderate to severe calcific aortic valve stenosis. Trivial aortic valve insufficiency. Trivial pulmonic valve insufficiency. Right ventricular systolic pressure estimated to be 32 mmHg. Diastolic function is indeterminate. 3. Acute non-STEMI type I ?. Patient was managed per protocol. Consultation placed to cardiology. Patient underwent left heart catheterization results are as below which demonstrated multivessel disease. Further recommendations as per cardiology -03/23/2022; Patient seen denies chest pain this AM. Discussions were held with family by cardiology regarding options of treatment. Patient's family wanted to think about whether to proceed with aggressive treatment. Family to relay the decision back to cardiology 4. Valvular heart disease ?. Patient left heart catheterization demonstrated severe aortic valve stenosis with an area of 0.5 cm?. Subsequent recommendation and management as per cardiology 5. Hypertension - Blood pressure controlled, home medications continued with dose adjustment as needed 6. Diabetes mellitus type II -patient's oral hypoglycemics held. Placed on long acting insulin, Accu-Cheks a.c. and at bedtime and covered with sliding scale insulin 7. Dyslipidemia ? Patient is on Zetia did continue 8. Depression ? Patient is on SSRI did continue 9. DVT prophylaxis ? [place] Lovenox Charges/Coding Visit Charges Inpatient E&M: 65595 Subs Hosp L2
[2022-03-23] MEDS: Aspirin E.C. 81 MG Tablet PO (08:13)
[2022-03-23] MEDS: Multivitamins,Ther W-Minerals Tablet 1 TABLET PO (08:13)
[2022-03-23] MEDS: 0.9% Saline Lock 10 ML Syringe IV (09:35)
[2022-03-23] MEDS: Ezetimibe 10 MG Tablet PO (09:36)
[2022-03-23] MEDS: Enoxaparin 40 MG/0.4 ML Syringe SC (09:36)
[2022-03-23] MEDS: Clopidogrel Bisulfate 75 MG Tablet PO (09:36)
[2022-03-23] MEDS: Multivitamin (Healthy Eyes) Capsule 1 CAP PO ×2 (09:37→22:24)
[2022-03-23] MEDS: Vitamin B Comp W-C Capsule 1 CAP PO (09:37)
[2022-03-23] MEDS: Metoprolol Tartrate 25 MG Tablet PO ×2 (09:37→22:23)
[2022-03-23] MEDS: Furosemide 40 MG/4 ML Vial IV (09:37)
[2022-03-23] MEDS: Lisinopril 5 MG Tablet PO ×2 (09:37→22:23)
[2022-03-23] MEDS: Isosorbide Mononitrate 30 MG Tablet PO (09:37)
[2022-03-23 13:05] LABS: Bedside Glucose 186 mg/dL (74-106)
--- NOTE | 2022-03-23 15:24 | PN.CARD_ITS ---
Subjective Subjective Patient comfortable no event from last night Family at bedside She does not have any active chest pain. Objective Data Vital Signs: Vital Signs Temp Pulse Resp BP Pulse Ox O2 Del Method O2 Flow Rate 98 F 64 18 150/68 H 95 Room Air 94 03/23/22 15:10 03/23/22 15:10 03/23/22 15:10 03/23/22 15:10 03/23/22 15:10 03/23/22 15:10 03/21/22 22:00 FiO2 40 03/20/22 12:34 Oxygen Flow Rate (L/min) 94 Oxygen Delivery Method Room Air Weight: 129 lb 13.636 oz Body Mass Index (BMI) 26.2 Intake & Output: Intake and Output for Last 24 Hours 03/21/22 03/22/22 03/23/22 23:59 23:59 23:59 Intake Total 200 / 200 1360 / 1360 480 / 480 Output Total 910 / 1210 750 / 1400 1350 / 1350 Balance -710 / -1010 610 / -40 -870 / -870 Lab / Micro Data Result Diagrams: 03/22/22 05:15 03/22/22 05:15 Labs: Laboratory Results - last 24 hr 03/22/22 16:49: POC Glucose 153 H 03/22/22 22:01: POC Glucose 195 H 03/23/22 06:23: POC Glucose 169 H 03/23/22 12:38: POC Glucose 186 H Rhythm Strip Rhythm Strip: Sinus Tach Rate: 102 Ectopy: None Cardiology Labs/Tests Rhythm: EKG: ECHO: Stress Test: Cardiac Cath: PCI: CT Surgery: Holter monitor: EPS: PPM: CXR: Chest CT Scan: Physical Exam Cardio Cardio Narrative: Cardiac rhythm is sinus rhythm Cardiac exam S1-S2 regular, systolic murmur heard in the aortic valve area. Chest exam clear to auscultation bilateral. No lower extremity edema Assessment & Plan Assessment/Plan (1) History of diabetes mellitus: (2) Non-ST elevated myocardial infarction: (3) Pulmonary edema: (4) Presence of stent in coronary artery: (5) HLD (hyperlipidemia): QUALIFIERS: Hyperlipidemia type: pure hypercholesterolemia Qualified Code(s): E78.00 - Pure hypercholesterolemia, unspecified; E78.0 - Pure hypercholesterolemia (6) PAD (peripheral artery disease): (7) Occlusion and stenosis of right carotid artery: PLAN: Plan 87-year-old patient was seen and evaluated today at bedside she has no symptoms of chest pain to report today. And I discussed cardiac care plan with the patient and family Patient presented with symptoms of chest pain and she has pulm edema responded well to medical treatment with a diuretic Patient underwent left and right heart catheterization. Which revealed severe multivessel CAD, severe calcific aortic stenosis and normal LV systolic function. Cardiac care plan recommendations; 1. I discussed in detail the cardiac care plan with the patient and the family and the nursing staff They decided to be seen at the tertiary care facility at [facility] to discuss possible high risk PCI with TAVR And patient declined bypass surgery and SAVR at this point as she pointed due to her age I will discuss the cardiac care plan decision with her primary business programmer Dr. Almonte Will continue medical therapy and continue to monitor on telemetry.
[2022-03-23 18:01] LABS: Bedside Glucose 196 mg/dL (74-106)
[2022-03-23 21:30] LABS: Bedside Glucose 233 mg/dL (74-106)
[2022-03-23] MEDS: Sertraline 50 MG Tablet 25 MG PO (22:24)
[2022-03-24] VITALS (16 sets, daily range): BP systolic 104–212; BP diastolic 41–80; PULSE 63–83; RESP 14–20; TEMP 35.9–37; O2SAT 92–96
[2022-03-24] MEDS: Insulin Lispro 100 UNIT/ML INSULN.PEN SC ×4 (06:34→22:36)
[2022-03-24 07:03] LABS: Absolute Lymphocyte Count 1.86 X10^3/uL (0.83-4.51); Absolute Neutrophil Count 4.5 X10^3/uL (2.0-7.7); Basophil# 0.05 X10^3/uL; Basophil% 0.7 % (0-1); Eosinophil# 0.39 X10^3/uL; Eosinophils% 5.1 % (0-5); Hematocrit 41.4 % (37-47); Hemoglobin 14.1 g/dL (12.0-15.0); Lymphocyte # 1.86 X10^3/ul (0.83-4.51); Lymphocyte % 24.3 % (19-41); Mean Corp Hgb Conc 34.1 g/dL (32-36); Mean Corpuscular Hgb 29.3 pg (27.0-32.0); Mean Corpuscular Volume 86.1 fL (81-99); Monocyte# 0.87 X10^3/uL; Monocyte% 11.4 % (0-10); NRBC Flagged by Analyzer 0 % (0-5); Neutrophil # 4.47 X10^3/uL (2.7-7.7); Neutrophil % 58.2 % (47-70); Platelet Count 221 K/mm3 (150-450); RBC Distribution Width CV 12.8 % (11.6-14.6); Red Blood Count 4.81 M/mm3 (4.2-5.4); White Blood Count 7.7 K/mm3 (4.4-11.0)
[2022-03-24 07:11] LABS: Bedside Glucose 169 mg/dL (74-106)
[2022-03-24 07:35] LABS: Anion Gap 7 (5-15); BUN 22 mg/dL (7-18); BUN/Creat Ratio 37.5 RATIO (10-20); Calcium,Total 8.8 mg/dL (8.5-10.1); Chloride 106 mmol/L (98-107); Creatinine, Serum 0.59 mg/dL (0.55-1.02); EST Glomerular Filtration Rate 103 mL/min (>60); Est Glom Filt Rate - Afr Amer 125 mL/min (>60); Glucose 174 mg/dL (74-106); Magnesium 2.1 mg/dL (1.6-2.6); Sodium Level 140 mmol/L (136-145)
[2022-03-24] MEDS: Aspirin E.C. 81 MG Tablet PO (09:09)
[2022-03-24] MEDS: Vitamin B Comp W-C Capsule 1 CAP PO (09:10)
[2022-03-24] MEDS: Isosorbide Mononitrate 30 MG Tablet PO (09:10)
[2022-03-24] MEDS: Multivitamins,Ther W-Minerals Tablet 1 TABLET PO (09:10)
[2022-03-24] MEDS: Multivitamin (Healthy Eyes) Capsule 1 CAP PO ×2 (09:10→22:36)
[2022-03-24] MEDS: Furosemide 20 MG Tablet PO (09:11)
[2022-03-24] MEDS: Lisinopril 5 MG Tablet PO ×2 (09:11→22:39)
[2022-03-24] MEDS: Metoprolol Tartrate 25 MG Tablet PO ×2 (09:11→22:38)
[2022-03-24] MEDS: Enoxaparin 40 MG/0.4 ML Syringe SC (09:11)
[2022-03-24] MEDS: Clopidogrel Bisulfate 75 MG Tablet PO (09:12)
[2022-03-24] MEDS: Ezetimibe 10 MG Tablet PO (09:12)
--- NOTE | 2022-03-24 10:01 | PCM.PN.HOSP ---
Subjective Subjective Patient seen had a relatively uneventful night. Patient and family have elected to proceed with treatment of her multivessel disease as well as valvular heart disease. Objective Data Objective Data Vital Signs: Vital Signs Temp Pulse Resp BP Pulse Ox O2 Del Method O2 Flow Rate 96.7 F L 69 20 H 148/54 H 95 Room Air 94 03/24/22 04:22 03/24/22 09:11 03/24/22 04:22 03/24/22 04:22 03/24/22 08:27 03/24/22 08:27 03/21/22 22:00 FiO2 40 03/20/22 12:34 Oxygen Flow Rate (L/min) 94 Oxygen Delivery Method Room Air Weight: 59.3 kg Body Mass Index (BMI) 26.2 Intake & Output: Intake and Output for Last 24 Hours 03/22/22 03/23/22 03/24/22 23:59 23:59 23:59 Intake Total 1360 / 1360 780 / 880 250 / 250 Output Total 750 / 1400 1550 / 1550 Balance 610 / -40 -770 / -670 250 / 250 Lab / Micro Data Result Diagrams: 03/24/22 06:38 03/24/22 06:38 Labs: Laboratory Results - last 24 hr 03/23/22 12:38: POC Glucose 186 H 03/23/22 17:33: POC Glucose 196 H 03/23/22 20:59: POC Glucose 233 H 03/24/22 06:33: POC Glucose 169 H 03/24/22 06:38: WBC 7.7, RBC 4.81, Hgb 14.1, Hct 41.4, MCV 86.1, MCH 29.3, MCHC 34.1, RDW Std Deviation 40.0, RDW Coeff of Jennifer 12.8, Plt Count 221, MPV 10.0, Immature Gran % (Auto) 0.300, Neut % (Auto) 58.2, Lymph % (Auto) 24.3, [place] % (Auto) 11.4 H, Eos % (Auto) 5.1 H, Baso % (Auto) 0.7, Absolute Neuts (auto) 4.5, Absolute Lymphs (auto) 1.86, Nucleated RBC % 0 03/24/22 06:38: Sodium 140, Potassium 4.0, Chloride 106, Carbon Dioxide 27.0, Anion Gap 7, BUN 22 H, Creatinine 0.59, Estim Creat Clear Calc 37.10, Est GFR (MDRD) Af Amer 125, Est GFR (MDRD) Non-Af 103, BUN/Creatinine Ratio 37.5 H, Glucose 174 H, Calcium 8.8, Magnesium 2.1 Micro: Microbiology 03/20/22 09:50 Nasal Secretion SARS-CoV-2 & FLU Antigen (Rapid) - Final Rhythm Strip Rhythm Strip: Sinus Tach Rate: 102 Ectopy: None Physical Exam Narrative GENERAL: cooperative HEENT: Atraumatic; normocephalic EYES; Anicteric, Normal Conjunctiva NECK; supple, normal thyroid, RESPIRATORY: Diminished to auscultation CARDIOVASCULAR: Regular S1 S2, systolic murmur GI: soft, normoactive bowel sounds, : No Renal angle tenderness; EXTREMITIES: No edema, no clubbing, MUSCULOSKELETAL: no muscle wasting NEURO: Awake; no lateralizing signs. SKIN: No Rash PSYCH; Flat affect Assessment & Plan Assessment/Plan (1) Respiratory failure: (2) Pulmonary edema: PLAN: Plan Patient is an 87-year-old lady with multiple comorbidities admitted with progressive shortness of breath and assessment of acute hypoxic respiratory failure secondary to combination of acute flash pulmonary edema made placed on BiPAP admitted to monitored bed for further management 1. Acute hypoxic respiratory failure secondary to acute on chronic CHF with preserved ejection fraction with pulmonary edema ? Patient placed on a monitored bed managed with noninvasive ventilation BiPAP subsequently weaned off also managed with diuretics 2. Acute on chronic congestive heart failure with preserved ejection fraction ? Management as discussed above 2D echo results are as below Left ventricular systolic function is normal. The estimated ejection fraction is 65 %. The left atrium is mildly enlarged. There is moderate mitral annular calcification. Extension of the mitral annular calcification onto the base of the posterior mitral valve leaflet. The mitral valve chordae are thickened and/or calcified. Mild mitral valve stenosis. Mild (1+) mitral valve insufficiency. Trivial tricuspid valve insufficiency. Moderate to severe calcific aortic valve stenosis. Trivial aortic valve insufficiency. Trivial pulmonic valve insufficiency. Right ventricular systolic pressure estimated to be 32 mmHg. Diastolic function is indeterminate. 3. Acute non-STEMI type I ?. Patient was managed per protocol. Consultation placed to cardiology. Patient underwent left heart catheterization results are as below which demonstrated multivessel disease. Further recommendations as per cardiology -03/23/2022; Patient seen denies chest pain this AM. Discussions were held with family by cardiology regarding options of treatment. Patient's family wanted to think about whether to proceed with aggressive treatment. Family to relay the decision back to cardiology -03/24/2022; treatment options to be discussed with family by cardiology 4. Valvular heart disease ?. Patient left heart catheterization demonstrated severe aortic valve stenosis with an area of 0.5 cm?. Subsequent recommendation and management as per cardiology 5. Hypertension - Blood pressure controlled, home medications continued with dose adjustment as needed 6. Diabetes mellitus type II -patient's oral hypoglycemics held. Placed on long acting insulin, Accu-Cheks a.c. and at bedtime and covered with sliding scale insulin 7. Dyslipidemia ? Patient is on Zetia did continue 8. Depression ? Patient is on SSRI did continue 9. DVT prophylaxis ? SERGIO Arriaza Charges/Coding Visit Charges Inpatient E&M: 25568 Subs Hosp L2
[2022-03-24 11:45] LABS: Bedside Glucose 185 mg/dL (74-106)
--- NOTE | 2022-03-24 14:08 | PCM.PN.CARD ---
Subjective Subjective Patient seen and evaluated today along with the nursing staff Daughter at bedside at time of evaluation She is comfortable in bed, does not have any symptoms of chest pain or shortness of breath Objective Data Vital Signs: Vital Signs Temp Pulse Resp BP Pulse Ox O2 Del Method O2 Flow Rate 98.0 F 69 14 151/57 H 96 Room Air 94 03/24/22 09:10 03/24/22 09:11 03/24/22 09:10 03/24/22 09:10 03/24/22 09:10 03/24/22 09:10 03/21/22 22:00 FiO2 40 03/20/22 12:34 Oxygen Flow Rate (L/min) 94 Oxygen Delivery Method Room Air Weight: 130 lb 11.746 oz Body Mass Index (BMI) 26.2 Intake & Output: Intake and Output for Last 24 Hours 03/22/22 03/23/22 03/24/22 23:59 23:59 23:59 Intake Total 1360 / 1360 780 / 880 250 / 250 Output Total 750 / 1400 1550 / 1550 Balance 610 / -40 -770 / -670 250 / 250 Lab / Micro Data Result Diagrams: 03/24/22 06:38 03/24/22 06:38 Labs: Laboratory Results - last 24 hr 03/23/22 17:33: POC Glucose 196 H 03/23/22 20:59: POC Glucose 233 H 03/24/22 06:33: POC Glucose 169 H 03/24/22 06:38: WBC 7.7, RBC 4.81, Hgb 14.1, Hct 41.4, MCV 86.1, MCH 29.3, MCHC 34.1, RDW Std Deviation 40.0, RDW Coeff of Jennifer 12.8, Plt Count 221, MPV 10.0, Immature Gran % (Auto) 0.300, Neut % (Auto) 58.2, Lymph % (Auto) 24.3, [place] % (Auto) 11.4 H, Eos % (Auto) 5.1 H, Baso % (Auto) 0.7, Absolute Neuts (auto) 4.5, Absolute Lymphs (auto) 1.86, Nucleated RBC % 0 03/24/22 06:38: Sodium 140, Potassium 4.0, Chloride 106, Carbon Dioxide 27.0, Anion Gap 7, BUN 22 H, Creatinine 0.59, Estim Creat Clear Calc 37.10, Est GFR (MDRD) Af Amer 125, Est GFR (MDRD) Non-Af 103, BUN/Creatinine Ratio 37.5 H, Glucose 174 H, Calcium 8.8, Magnesium 2.1 03/24/22 11:25: POC Glucose 185 H Rhythm Strip Rhythm Strip: Sinus Tach Rate: 102 Ectopy: None Cardiology Labs/Tests 03/24/22 06:38: WBC 7.7, RBC 4.81, Hgb 14.1, Hct 41.4, MCV 86.1, MCH 29.3, MCHC 34.1, Plt Count 221, MPV 10.0, Immature Gran % (Auto) 0.300, Neut % (Auto) 58.2, Lymph % (Auto) 24.3, [place] % (Auto) 11.4 H, Eos % (Auto) 5.1 H, Baso % (Auto) 0.7, Absolute Neuts (auto) 4.5, Nucleated RBC % 0 03/24/22 06:38: Sodium 140, Potassium 4.0, Chloride 106, Carbon Dioxide 27.0, Anion Gap 7, BUN 22 H, Creatinine 0.59, Est GFR (MDRD) Af Amer 125, Est GFR (MDRD) Non-Af 103, BUN/Creatinine Ratio 37.5 H, Glucose 174 H, Calcium 8.8, Magnesium 2.1 Rhythm: Sinus rhythm EKG: Sinus rhythm with no significant ST?T abnormalities Physical Exam Cardio Cardio Narrative: Cardiac rhythm is sinus rhythm Cardiovascular exam S1-S2 normal, systolic murmur in the aortic valve area There is no diastolic murmur Chest examination clear to auscultation bilateral No lower extremity edema Assessment & Plan Assessment/Plan (1) History of diabetes mellitus: (2) 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: (3) Elevated troponin: (4) Presence of stent in coronary artery: (5) Carotid stenosis, left: (6) Occlusion and stenosis of right carotid artery: (7) PAD (peripheral artery disease): (8) CAD (coronary artery disease), [place] coronary artery: (9) Severe aortic valve stenosis: PLAN: 87-year-old patient, presented with symptoms of chest pain and shortness of breath Has pulm edema and non-ST elevation SC with elevated high sensitive troponins Patient evaluated by echocardiogram and left and right heart catheterization She remains a stable and responded well to medical therapy she does not have any active chest pain and symptoms of shortness of breath and pulm edema improved significantly on the current treatment Patient has still of diabetes mellitus, hypertension, hyperlipidemia and has bilateral carotid endarterectomy Cardiac care plan recommendations; 1. Left and right heart catheterization revealed severe multivessel CAD involving LAD, circumflex and RCA LV function is preserved with severe/calcific aortic valve stenosis. 2. I discussed today with the primary escrow assistant Dr. Almonte and I called [facility] to evaluate the patient for complex high risk PCI of multivessel with TAVR versus CABG with SAVR 3. Patient and family requesting complex PCI with TAVR Explained that this will be a decision to have to discussed with the interventional cardiology and cardiovascular surgeon's team at [facility] 4. I reviewed all her current medication and discussed cardiac care plan with the family patient and the nursing staff.
[2022-03-24 17:00] LABS: Bedside Glucose 174 mg/dL (74-106)
--- NOTE | 2022-03-24 19:48 | NURSING ---
pt with c/o Chest pain that started after she was in the restroom, while in restroom pt washed up, brushed teeth, and had BM. per pt started as feeling SOB, no referred pain, nausea or vimotting. pt is currently back in bed and pain free. pt is on RA. VSS. RT aware of new order, charge nurse updated at this time.
[2022-03-24] MEDS: Sertraline 50 MG Tablet 25 MG PO (22:39)
[2022-03-24] MEDS: Nitroglycerin (INPATIENT USE) 0.4 MG TAB.SUBL SL ×3 (22:44→22:56)
--- NOTE | 2022-03-24 22:55 | NURSING ---
pt with complaint of chest pain >5/10 while at rest. SBP noted >200. 02 applied at 2L NC. PRN nitro provided, EKG obtained, Physician updated, new orders received for hydralazine and Morphine. pt denied referred pain to back and arms and nausea. family remains at bedside. bed alarm on, call light within reach will monitor.
--- NOTE | 2022-03-24 22:58 | PCM.HOSP.N ---
Hospitalist Note Patient with onset chest pain, notably elevated BP concurrently. EKG obtained without acute findings. Will obtain trop. NG series available. Will add PRN morphine.
[2022-03-24] MEDS: Morphine 2 MG/ML Syringe IV (23:13)
[2022-03-25] VITALS (13 sets, daily range): BP systolic 96–156; BP diastolic 45–67; PULSE 55–69; RESP 16–20; TEMP 36.3–36.7; O2SAT 94–97
[2022-03-25 00:10] LABS: Bedside Glucose 178 mg/dL (74-106)
[2022-03-25 00:38] LABS: Troponin-I HS 982 pg/mL (3.0-54.0)
--- NOTE | 2022-03-25 03:22 | NURSING ---
update provided to [facility] transfer, no bed available at this time. they expect an opening later todayyyyyyyyyyyyyyyy.
[2022-03-25 05:10] LABS: Absolute Lymphocyte Count 2.43 X10^3/uL (0.83-4.51); Absolute Neutrophil Count 3.8 X10^3/uL (2.0-7.7); Basophil# 0.06 X10^3/uL; Basophil% 0.8 % (0-1); Eosinophil# 0.39 X10^3/uL; Eosinophils% 5.2 % (0-5); Hematocrit 39.2 % (37-47); Hemoglobin 13.1 g/dL (12.0-15.0); Lymphocyte # 2.43 X10^3/ul (0.83-4.51); Lymphocyte % 32.3 % (19-41); Mean Corp Hgb Conc 33.4 g/dL (32-36); Mean Corpuscular Hgb 29.1 pg (27.0-32.0); Mean Corpuscular Volume 87.1 fL (81-99); Mean Platelet Vol. 10.4 fl (6.2-12.0); Monocyte# 0.86 X10^3/uL; Monocyte% 11.4 % (0-10); NRBC Flagged by Analyzer 0 % (0-5); Neutrophil # 3.76 X10^3/uL (2.7-7.7); Platelet Count 229 K/mm3 (150-450); RBC Distribution Width CV 12.8 % (11.6-14.6); RBC Distribution Width SD 40.2 fl (35.1-43.9); White Blood Count 7.5 K/mm3 (4.4-11.0)
[2022-03-25 05:45] LABS: Anion Gap 6 (5-15); BUN 27 mg/dL (7-18); BUN/Creat Ratio 41.3 RATIO (10-20); Calcium,Total 8.9 mg/dL (8.5-10.1); Chloride 106 mmol/L (98-107); Creatinine, Serum 0.65 mg/dL (0.55-1.02); EST Glomerular Filtration Rate 91 mL/min (>60); Est Glom Filt Rate - Afr Amer 110 mL/min (>60); Glucose 159 mg/dL (74-106); Potassium 4.6 mmol/L (3.5-5.1); Sodium Level 140 mmol/L (136-145)
[2022-03-25 06:56] LABS: Bedside Glucose 142 mg/dL (74-106)
[2022-03-25] MEDS: Isosorbide Mononitrate 30 MG Tablet PO (08:44)
[2022-03-25] MEDS: Multivitamins,Ther W-Minerals Tablet 1 TABLET PO (08:44)
[2022-03-25] MEDS: Vitamin B Comp W-C Capsule 1 CAP PO (08:44)
[2022-03-25] MEDS: Aspirin E.C. 81 MG Tablet PO (08:44)
[2022-03-25] MEDS: Furosemide 20 MG Tablet PO (08:44)
[2022-03-25] MEDS: Multivitamin (Healthy Eyes) Capsule 1 CAP PO ×2 (08:44→21:50)
[2022-03-25] MEDS: Metoprolol Tartrate 25 MG Tablet PO ×2 (08:44→21:50)
[2022-03-25] MEDS: Lisinopril 5 MG Tablet PO ×2 (08:44→21:51)
[2022-03-25] MEDS: Clopidogrel Bisulfate 75 MG Tablet PO (08:44)
[2022-03-25] MEDS: Ezetimibe 10 MG Tablet PO (08:44)
[2022-03-25] MEDS: Enoxaparin 40 MG/0.4 ML Syringe SC (08:46)
[2022-03-25] MEDS: 0.9% Saline Lock 10 ML Syringe IV (08:51)
--- NOTE | 2022-03-25 09:09 | EKG12_ITS ---
Test Reason : Blood Pressure : / mmHG Vent. Rate : 066 BPM Atrial Rate : 066 BPM P-R Int : 144 ms QRS Dur : 094 ms QT Int : 412 ms P-R-T Axes : 058 043 136 degrees QTc Int : 431 ms Normal sinus rhythm ST & T wave abnormality, consider anterolateral ischemia Abnormal ECG Confirmed by CHIVO MELENDEZ, CONNOR ([id number]), technical writer and editor ERNESTINA GARCIA ([id number]) on 03/27/2022 8:15:46 AM Referred By: TRAMAINE Confirmed By:CONNOR WALDRON MD
--- NOTE | 2022-03-25 09:57 | PCM.PN.CARD ---
Subjective Subjective Feeling better. Some chest pain earlier today but now resolved. Objective Data Vital Signs: Vital Signs Temp Pulse Resp BP Pulse Ox O2 Del Method O2 Flow Rate 98.0 F 66 20 H 156/48 H 96 Nasal Cannula 2 03/25/22 05:15 03/25/22 08:44 03/25/22 05:15 03/25/22 08:44 03/25/22 05:15 03/25/22 05:57 03/25/22 05:57 FiO2 40 03/20/22 12:34 Oxygen Flow Rate (L/min) 2 Oxygen Delivery Method Nasal Cannula Weight: 133 lb 9.602 oz Body Mass Index (BMI) 26.2 Intake & Output: Intake and Output for Last 24 Hours 03/23/22 03/24/22 03/25/22 23:59 23:59 23:59 Intake Total 780 / 880 250 / 450 320 / 320 Output Total 1550 / 1550 200 / 200 100 / 100 Balance -770 / -670 50 / 250 220 / 220 Lab / Micro Data Result Diagrams: 03/25/22 04:28 03/25/22 04:28 Labs: Laboratory Results - last 24 hr 03/24/22 00:00: Troponin I High Sens 982 H* 03/24/22 11:25: POC Glucose 185 H 03/24/22 16:37: POC Glucose 174 H 03/24/22 22:30: POC Glucose 178 H 03/25/22 04:28: WBC 7.5, RBC 4.50, Hgb 13.1, Hct 39.2, MCV 87.1, MCH 29.1, MCHC 33.4, RDW Std Deviation 40.2, RDW Coeff of Jennifer 12.8, Plt Count 229, MPV 10.4, Immature Gran % (Auto) 0.300, Neut % (Auto) 50.0, Lymph % (Auto) 32.3, [place] % (Auto) 11.4 H, Eos % (Auto) 5.2 H, Baso % (Auto) 0.8, Absolute Neuts (auto) 3.8, Absolute Lymphs (auto) 2.43, Nucleated RBC % 0 03/25/22 04:28: Sodium 140, Potassium 4.6, Chloride 106, Carbon Dioxide 28.0, Anion Gap 6, BUN 27 H, Creatinine 0.65, Estim Creat Clear Calc 37.10, Est GFR (MDRD) Af Amer 110, Est GFR (MDRD) Non-Af 91, BUN/Creatinine Ratio 41.3 H, Glucose 159 H, Calcium 8.9 03/25/22 06:33: POC Glucose 142 H Rhythm Strip Rhythm Strip: Sinus Tach Rate: 102 Ectopy: None Cardiology Labs/Tests 03/25/22 04:28: WBC 7.5, RBC 4.50, Hgb 13.1, Hct 39.2, MCV 87.1, MCH 29.1, MCHC 33.4, Plt Count 229, MPV 10.4, Immature Gran % (Auto) 0.300, Neut % (Auto) 50.0, Lymph % (Auto) 32.3, [place] % (Auto) 11.4 H, Eos % (Auto) 5.2 H, Baso % (Auto) 0.8, Absolute Neuts (auto) 3.8, Nucleated RBC % 0 03/25/22 04:28: Sodium 140, Potassium 4.6, Chloride 106, Carbon Dioxide 28.0, Anion Gap 6, BUN 27 H, Creatinine 0.65, Est GFR (MDRD) Af Amer 110, Est GFR (MDRD) Non-Af 91, BUN/Creatinine Ratio 41.3 H, Glucose 159 H, Calcium 8.9 Rhythm: EKG: ECHO: Stress Test: Cardiac Cath: PCI: CT Surgery: Holter monitor: EPS: PPM: CXR: Chest CT Scan: Physical Exam Narrative Heart sounds 1 and 2 noted. 3/6 systolic murmur at apex and base. Chest clear to auscultation bilaterally. Alert oriented x3. Assessment & Plan Assessment/Plan (1) CAD (coronary artery disease), [place] coronary artery: PLAN: Severe triple-vessel disease. Preferably for CABG versus multivessel high risk PCI. Awaiting transfer to [facility]. Continue aspirin and Plavix meanwhile. Add amlodipine for angina and for better blood pressure control. (2) Moderate to severe aortic stenosis: PLAN: For SAVR versus TAVR. See #1 above. (3) Essential hypertension: PLAN: Add amlodipine. Increase nitrates. (4) Diabetes mellitus, type 2: QUALIFIERS: Diabetes mellitus regional intermodal truck driver insulin use: without regional intermodal truck driver use Diabetes mellitus complication status: without complication Qualified Code(s): E11.9 - Type 2 diabetes mellitus without complications
--- NOTE | 2022-03-25 11:34 | NURSING ---
0904; pt called out with chest pain center of chest rates at a 5 on 1-10 scale. placed O2 on pt 2 l per nc. skin warm and dry. no radiation on chest pain. describes as pressure. EKG called. VS 0905; 203/79 hr 75, spo2 100% on 2 l per nc O2, 97.9, rr 18. 0907; EKG in room. Chest pain remains unchanged. 0908; VS 205/62, hr 71, 99% on 2 l per nc, 97.9, rr 18. chest pain remains at 5 on 1-10 scale. unchanged as noted above. 09; EKG completed. 15; VS 154/51, hr 72, rr 18, spo2 99% at 2 l per nc, pt states chest pain is decreasing down to a pressure in center of chest to a 3 on 1-10 scale no radiation. EKG given to charge nurse. called per Kathy charge nurse.
[2022-03-25] MEDS: Menthol/Lanolin/Calamine/Znox 113 GM Tube 1 APPLIC TOPICAL ×2 (11:52→21:53)
[2022-03-25] MEDS: Insulin Lispro 100 UNIT/ML INSULN.PEN SC ×2 (11:52→21:51)
[2022-03-25 12:21] LABS: Bedside Glucose 164 mg/dL (74-106)
--- NOTE | 2022-03-25 12:30 | NURSING ---
PHONED [facility] AND STILL NO BEDS AVAILABLE
--- NOTE | 2022-03-25 12:59 | CHAPLAIN ---
Type of Pastoral Visit _x__ Initial Visit ___ Follow-up Visit ___ On-call Visit ___ General Patient Visit ___ Spiritual Assessment ___ Family Conference ___ Bereavement ___ Rapid Response ___ Code Blue ___ Other (describe below) Pastoral Care Referral From ___ Patient ___ Family ___ Nurse ___ Physician ___ Game Trapper ___ Staff Psychologist _x__ Other (describe below) Sacrament/Intervention _x__ Active listening ___ Anointing ___ Restorationism ___ Bereavement ___ Communion ___ [place] exploration ___ ___ Life review _x__ Prayer ___ Reconciliation ___ Sacrament of Sick _x__ Supportive presence ___ Wedding ___ Other (describe below) Pastoral Comments [place] Liaison notified this farm management teacher for request of Bible by patient; met with patient and her daughter with Bible to give; pt is waiting transfer to larger hospital; pt states she is okay with the decision because whatever is best is okay then; pt welcomes prayer support; offer of support to family too
[2022-03-25] MEDS: amLODIPine 5 MG Tablet PO (16:43)
[2022-03-25 17:30] LABS: Bedside Glucose 120 mg/dL (74-106)
--- NOTE | 2022-03-25 20:06 | PN.HOSP_ITS ---
Subjective Subjective Patient was seen and examined today, she remains on minimal nasal cannula oxygen at this time, we are still awaiting confirmation of the bed at [facility] for the patient to be transferred there. Patient has no complaints of any chest pain at this time or shortness of breath. Objective Data Objective Data Vital Signs: Vital Signs Temp Pulse Resp BP Pulse Ox O2 Del Method O2 Flow Rate 97.7 F L 59 L 16 127/64 H 95 Nasal Cannula 1 03/25/22 16:40 03/25/22 16:40 03/25/22 16:40 03/25/22 16:40 03/25/22 16:40 03/25/22 16:40 03/25/22 16:40 FiO2 40 03/20/22 12:34 Oxygen Flow Rate (L/min) 1 Oxygen Delivery Method Nasal Cannula Weight: 60.6 kg Body Mass Index (BMI) 26.2 Intake & Output: Intake and Output for Last 24 Hours 03/23/22 03/24/22 03/25/22 23:59 23:59 23:59 Intake Total 780 / 880 250 / 450 900 / 900 Output Total 1550 / 1550 200 / 200 700 / 700 Balance -770 / -670 50 / 250 200 / 200 Lab / Micro Data Result Diagrams: 03/26/22 07:27 03/26/22 07:27 Labs: Laboratory Results - last 24 hr 03/24/22 00:00: Troponin I High Sens 982 H* 03/24/22 22:30: POC Glucose 178 H 03/25/22 04:28: WBC 7.5, RBC 4.50, Hgb 13.1, Hct 39.2, MCV 87.1, MCH 29.1, MCHC 33.4, RDW Std Deviation 40.2, RDW Coeff of Jennifer 12.8, Plt Count 229, MPV 10.4, Immature Gran % (Auto) 0.300, Neut % (Auto) 50.0, Lymph % (Auto) 32.3, [place] % (Auto) 11.4 H, Eos % (Auto) 5.2 H, Baso % (Auto) 0.8, Absolute Neuts (auto) 3.8, Absolute Lymphs (auto) 2.43, Nucleated RBC % 0 03/25/22 04:28: Sodium 140, Potassium 4.6, Chloride 106, Carbon Dioxide 28.0, Anion Gap 6, BUN 27 H, Creatinine 0.65, Estim Creat Clear Calc 37.10, Est GFR (MDRD) Af Amer 110, Est GFR (MDRD) Non-Af 91, BUN/Creatinine Ratio 41.3 H, Glucose 159 H, Calcium 8.9 03/25/22 06:33: POC Glucose 142 H 03/25/22 11:48: POC Glucose 164 H 03/25/22 16:34: POC Glucose 120 H Micro: Microbiology 03/20/22 09:50 Nasal Secretion SARS-CoV-2 & FLU Antigen (Rapid) - Final Rhythm Strip Rhythm Strip: Sinus Tach Rate: 102 Ectopy: None Physical Exam Const alert, oriented x3 and no apparent distress General Appearance: cooperative, well kempt and well developed Orientation / Consciousness: awake, oriented to person, oriented to place and oriented to time HEENT normocephalic, head/scalp atraumatic and moist oral mucous membranes Eyes PERRL, EOMs intact bilaterally and conjunctivae normal Neck supple, no JVD, thyroid normal and no carotid bruits General: trachea midline Resp normal respiratory effort and clear to auscultation bilaterally Auscultation: Negative for rales, rhonchi or wheezes Cardio regular rate, regular rhythm, S1 normal heart sound, S2 normal heart sound, no rub and no gallops Cardio Narrative: There is a 2/6 systolic murmur noted at the apex and right sternal border GI normal to inspection, nondistended, normoactive bowel sounds, soft to palpation, non-tender and non-distended Extremity no clubbing, cyanosis or edema Skin no rashes or lesions noted General Skin Exam: no breakdown Neuro oriented x3, CN's II-XII intact bilaterally, no focal motor deficits and no sensory deficits noted Sensorium / Orientation: awake, alert, oriented to person and oriented to place Speech: speech normal Psych affect normal Assessment & Plan Assessment/Plan (1) CAD (coronary artery disease), [place] coronary artery: PLAN: Plan 1. Acute on chronic congestive heart failure with preserved ejection fraction- patient is currently on room air at this time, continue present medications under direction of cardiology. #2 acute cnb-IKDHK-pjrhbrlhbt is participating in her care, her medications will remain the same #3 severe aortic stenosis-we are awaiting transfer the patient to [facility] for further treatment ( ? TAVR) #4 type 2 diabetes-blood sugars will be monitored, sliding scale insulin will be given as needed #5 essential hypertension-present medications will be continued #6 chronic depression-patient will remain on her current medication #7 acute hypoxic respiratory failure secondary to acute on chronic congestive heart failure with preserved ejection fraction-patient currently is on room air at this time Charges/Coding Visit Charges Inpatient E&M: 05896 Subs Hosp L2
--- NOTE | 2022-03-25 20:10 | NURSING ---
Patient taken off of oxygen to room air, no c/o chest pain, SPO2 maintains above 92% on RA
[2022-03-25] MEDS: Sertraline 50 MG Tablet 25 MG PO (21:51)
[2022-03-26] VITALS (13 sets, daily range): BP systolic 101–159; BP diastolic 37–78; PULSE 56–75; RESP 16–18; TEMP 36.5–36.8; O2SAT 94–99
[2022-03-26 02:31] LABS: Bedside Glucose 213 mg/dL (74-106)
[2022-03-26] MEDS: Insulin Lispro 100 UNIT/ML INSULN.PEN SC ×4 (06:53→21:59)
[2022-03-26 07:26] LABS: Bedside Glucose 173 mg/dL (74-106)
[2022-03-26] MEDS: Multivitamin (Healthy Eyes) Capsule 1 CAP PO ×2 (08:08→21:58)
[2022-03-26] MEDS: Vitamin B Comp W-C Capsule 1 CAP PO (08:08)
[2022-03-26] MEDS: Furosemide 20 MG Tablet PO (08:08)
[2022-03-26] MEDS: Clopidogrel Bisulfate 75 MG Tablet PO (08:08)
[2022-03-26] MEDS: Multivitamins,Ther W-Minerals Tablet 1 TABLET PO (08:08)
[2022-03-26] MEDS: Enoxaparin 40 MG/0.4 ML Syringe SC (08:08)
[2022-03-26] MEDS: Aspirin E.C. 81 MG Tablet PO (08:08)
[2022-03-26] MEDS: Ezetimibe 10 MG Tablet PO (08:08)
[2022-03-26] MEDS: Lisinopril 5 MG Tablet PO (08:08)
[2022-03-26] MEDS: Menthol/Lanolin/Calamine/Znox 113 GM Tube 1 APPLIC TOPICAL (08:08)
[2022-03-26 08:33] LABS: Absolute Lymphocyte Count 1.66 X10^3/uL (0.83-4.51); Absolute Neutrophil Count 4.3 X10^3/uL (2.0-7.7); Basophil# 0.06 X10^3/uL; Basophil% 0.9 % (0-1); Eosinophil# 0.32 X10^3/uL; Eosinophils% 4.6 % (0-5); Hematocrit 42.1 % (37-47); Hemoglobin 14.1 g/dL (12.0-15.0); Lymphocyte # 1.66 X10^3/ul (0.83-4.51); Lymphocyte % 23.6 % (19-41); Mean Corp Hgb Conc 33.5 g/dL (32-36); Mean Corpuscular Volume 86.6 fL (81-99); Mean Platelet Vol. 10.6 fl (6.2-12.0); Monocyte# 0.69 X10^3/uL; Monocyte% 9.8 % (0-10); NRBC Flagged by Analyzer 0 % (0-5); Neutrophil # 4.27 X10^3/uL (2.7-7.7); Neutrophil % 60.8 % (47-70); Platelet Count 234 K/mm3 (150-450); RBC Distribution Width CV 12.7 % (11.6-14.6); RBC Distribution Width SD 39.9 fl (35.1-43.9); Red Blood Count 4.86 M/mm3 (4.2-5.4)
--- NOTE | 2022-03-26 08:35 | NURSING ---
Emergency Documentation 03/26/2022 0700
[2022-03-26 08:51] LABS: Anion Gap 7 (5-15); BUN 22 mg/dL (7-18); BUN/Creat Ratio 40.5 RATIO (10-20); Calcium,Total 9.1 mg/dL (8.5-10.1); Chloride 105 mmol/L (98-107); Creatinine, Serum 0.54 mg/dL (0.55-1.02); EST Glomerular Filtration Rate 113 mL/min (>60); Est Glom Filt Rate - Afr Amer 137 mL/min (>60); Estimated Creatinine Clearance 38.86 ml/min; Glucose 166 mg/dL (74-106); Potassium 4.1 mmol/L (3.5-5.1); Sodium Level 139 mmol/L (136-145)
[2022-03-26] MEDS: Metoprolol Tartrate 25 MG Tablet PO (10:56)
[2022-03-26] MEDS: Isosorbide Mononitrate 60 MG Tablet PO (10:56)
[2022-03-26] MEDS: amLODIPine 5 MG Tablet PO (10:58)
[2022-03-26 11:30] LABS: Bedside Glucose 251 mg/dL (74-106)
--- NOTE | 2022-03-26 11:58 | PCM.PN.CARD ---
Subjective Subjective No chest pain overnight. Stable. Awaiting transfer to [facility]. Objective Data Vital Signs: Vital Signs Temp Pulse Resp BP Pulse Ox O2 Del Method O2 Flow Rate 98.0 F 61 16 121/78 H 94 Room Air 1 03/26/22 10:55 03/26/22 10:56 03/26/22 10:55 03/26/22 10:56 03/26/22 10:55 03/26/22 10:55 03/25/22 16:40 FiO2 40 03/20/22 12:34 Oxygen Flow Rate (L/min) 1 Oxygen Delivery Method Room Air Weight: 136 lb 14.513 oz Body Mass Index (BMI) 26.2 Intake & Output: Intake and Output for Last 24 Hours 03/24/22 03/25/22 03/26/22 23:59 23:59 23:59 Intake Total 250 / 450 900 / 900 Output Total 200 / 200 950 / 950 425 / 425 Balance 50 / 250 -50 / -50 -425 / -425 Lab / Micro Data Result Diagrams: 03/26/22 07:27 03/26/22 07:27 Labs: Laboratory Results - last 24 hr 03/25/22 11:48: POC Glucose 164 H 03/25/22 16:34: POC Glucose 120 H 03/25/22 21:47: POC Glucose 213 H 03/26/22 06:49: POC Glucose 173 H 03/26/22 07:27: WBC 7.0, RBC 4.86, Hgb 14.1, Hct 42.1, MCV 86.6, MCH 29.0, MCHC 33.5, RDW Std Deviation 39.9, RDW Coeff of Jennifer 12.7, Plt Count 234, MPV 10.6, Immature Gran % (Auto) 0.300, Neut % (Auto) 60.8, Lymph % (Auto) 23.6, [place] % (Auto) 9.8, Eos % (Auto) 4.6, Baso % (Auto) 0.9, Absolute Neuts (auto) 4.3, Absolute Lymphs (auto) 1.66, Nucleated RBC % 0 03/26/22 07:27: Sodium 139, Potassium 4.1, Chloride 105, Carbon Dioxide 27.0, Anion Gap 7, BUN 22 H, Creatinine 0.54 L, Estim Creat Clear Calc 38.86, Est GFR (MDRD) Af Amer 137, Est GFR (MDRD) Non-Af 113, BUN/Creatinine Ratio 40.5 H, Glucose 166 H, Calcium 9.1 03/26/22 10:54: POC Glucose 251 H Rhythm Strip Rhythm Strip: Sinus Tach Rate: 102 Ectopy: None Cardiology Labs/Tests 03/26/22 07:27: WBC 7.0, RBC 4.86, Hgb 14.1, Hct 42.1, MCV 86.6, MCH 29.0, MCHC 33.5, Plt Count 234, MPV 10.6, Immature Gran % (Auto) 0.300, Neut % (Auto) 60.8, Lymph % (Auto) 23.6, [place] % (Auto) 9.8, Eos % (Auto) 4.6, Baso % (Auto) 0.9, Absolute Neuts (auto) 4.3, Nucleated RBC % 0 03/26/22 07:27: Sodium 139, Potassium 4.1, Chloride 105, Carbon Dioxide 27.0, Anion Gap 7, BUN 22 H, Creatinine 0.54 L, Est GFR (MDRD) Af Amer 137, Est GFR (MDRD) Non-Af 113, BUN/Creatinine Ratio 40.5 H, Glucose 166 H, Calcium 9.1 Rhythm: EKG: ECHO: Stress Test: Cardiac Cath: PCI: CT Surgery: Holter monitor: EPS: PPM: CXR: Chest CT Scan: Physical Exam Narrative Heart sounds 1 and 2 noted. 3/6 systolic murmur at apex and base. Chest clear to auscultation bilaterally. Alert oriented x3. Assessment & Plan Assessment/Plan (1) CAD (coronary artery disease), [place] coronary artery: PLAN: Severe triple-vessel disease. Preferably for CABG versus multivessel high risk PCI. Awaiting transfer to [facility]. Continue aspirin and Plavix meanwhile. Continue nitrates, beta-blockers and amlodipine. (2) Moderate to severe aortic stenosis: PLAN: For SAVR versus TAVR. See #1 above. (3) Essential hypertension: PLAN: Controlled. 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
--- NOTE | 2022-03-26 12:47 | NURSING ---
I spoke with Claudia at [facility] transfer line she stated they still do not have a bed for the pt.
[2022-03-26 17:15] LABS: Bedside Glucose 183 mg/dL (74-106)
--- NOTE | 2022-03-26 17:26 | NURSING ---
[facility] transfer center called to request update on patient condition. Still no bed availability at this time.
--- NOTE | 2022-03-26 19:36 | PN.HOSP_ITS ---
Subjective Subjective Patient was seen and examined today, she remains on room air at this time, patient has no complaints of any chest pain or respiratory distress. We are currently awaiting confirmation of a bed for transfer to [facility]. Objective Data Objective Data Vital Signs: Vital Signs Temp Pulse Resp BP Pulse Ox O2 Del Method O2 Flow Rate 98.1 F 58 L 16 104/49 L 97 Room Air 1 03/26/22 16:30 03/26/22 16:30 03/26/22 16:30 03/26/22 16:30 03/26/22 16:30 03/26/22 16:30 03/25/22 16:40 FiO2 40 03/20/22 12:34 Oxygen Flow Rate (L/min) 1 Oxygen Delivery Method Room Air Weight: 62.1 kg Body Mass Index (BMI) 26.2 Intake & Output: Intake and Output for Last 24 Hours 03/24/22 03/25/22 03/26/22 23:59 23:59 23:59 Intake Total 250 / 450 900 / 900 540 / 540 Output Total 200 / 200 950 / 950 925 / 925 Balance 50 / 250 -50 / -50 -385 / -385 Lab / Micro Data Result Diagrams: 03/26/22 07:27 03/26/22 07:27 Labs: Laboratory Results - last 24 hr 03/25/22 21:47: POC Glucose 213 H 03/26/22 06:49: POC Glucose 173 H 03/26/22 07:27: WBC 7.0, RBC 4.86, Hgb 14.1, Hct 42.1, MCV 86.6, MCH 29.0, MCHC 33.5, RDW Std Deviation 39.9, RDW Coeff of Jennifer 12.7, Plt Count 234, MPV 10.6, Immature Gran % (Auto) 0.300, Neut % (Auto) 60.8, Lymph % (Auto) 23.6, [place] % (Auto) 9.8, Eos % (Auto) 4.6, Baso % (Auto) 0.9, Absolute Neuts (auto) 4.3, Absolute Lymphs (auto) 1.66, Nucleated RBC % 0 03/26/22 07:27: Sodium 139, Potassium 4.1, Chloride 105, Carbon Dioxide 27.0, Anion Gap 7, BUN 22 H, Creatinine 0.54 L, Estim Creat Clear Calc 38.86, Est GFR (MDRD) Af Amer 137, Est GFR (MDRD) Non-Af 113, BUN/Creatinine Ratio 40.5 H, Glucose 166 H, Calcium 9.1 03/26/22 10:54: POC Glucose 251 H 03/26/22 16:25: POC Glucose 183 H Micro: Microbiology 03/20/22 09:50 Nasal Secretion SARS-CoV-2 & FLU Antigen (Rapid) - Final Rhythm Strip Rhythm Strip: Sinus Tach Rate: 102 Ectopy: None Physical Exam Narrative alert, oriented x3 and no apparent distress General Appearance: cooperative, well kempt and well developed Orientation / Consciousness: awake, oriented to person, oriented to place and oriented to time HEENT normocephalic, head/scalp atraumatic and moist oral mucous membranes Eyes PERRL, EOMs intact bilaterally and conjunctivae normal Neck supple, no JVD, thyroid normal and no carotid bruits General: trachea midline Resp normal respiratory effort and clear to auscultation bilaterally Auscultation: Negative for rales, rhonchi or wheezes Cardio regular rate, regular rhythm, S1 normal heart sound, S2 normal heart sound, no rub and no gallops Cardio Narrative: There is a 2/6 systolic murmur noted at the apex and right sternal border GI normal to inspection, nondistended, normoactive bowel sounds, soft to palpation, non-tender and non-distended Extremity no clubbing, cyanosis or edema Skin no rashes or lesions noted General Skin Exam: no breakdown Neuro oriented x3, CN's II-XII intact bilaterally, no focal motor deficits and no sensory deficits noted Sensorium / Orientation: awake, alert, oriented to person and oriented to place Speech: speech normal Psych affect normal Assessment & Plan Assessment/Plan (1) CAD (coronary artery disease), [place] coronary artery: PLAN: Plan 1. Acute on chronic congestive heart failure with preserved ejection fraction- patient is currently on room air at this time, continue present medications under direction of cardiology. #2 acute wlk-KFYLE-jwlsyhzzzs is participating in her care, her medications will remain the same #3 severe aortic stenosis-we are awaiting transfer the patient to [facility] for further treatment ( ? TAVR) #4 type 2 diabetes-blood sugars will be monitored, sliding scale insulin will be given as needed #5 essential hypertension-present medications will be continued #6 chronic depression-patient will remain on her current medication #7 acute hypoxic respiratory failure secondary to acute on chronic congestive heart failure with preserved ejection fraction-patient currently is on room air at this time #8 coronary artery disease-again cardiology is participating in her care, her medications remained stable at this time Charges/Coding Visit Charges Inpatient E&M: 60350 Subs Hosp L2
--- NOTE | 2022-03-26 21:31 | PCA ---
EMERGENCY DOCUMENTATION
[2022-03-26] MEDS: Sertraline 50 MG Tablet 25 MG PO (21:58)
[2022-03-26 22:40] LABS: Bedside Glucose 199 mg/dL (74-106)
[2022-03-27] VITALS (13 sets, daily range): BP systolic 102–168; BP diastolic 40–55; PULSE 58–78; RESP 18; TEMP 36.5–36.7; O2SAT 95–97
[2022-03-27] MEDS: hydrALAZINE 20 MG/ML Vial 10 MG IV (04:10)
[2022-03-27] MEDS: 0.9% Saline Lock 10 ML Syringe IV (04:10)
[2022-03-27 07:05] LABS: Bedside Glucose 111 mg/dL (74-106)
[2022-03-27] MEDS: Multivitamins,Ther W-Minerals Tablet 1 TABLET PO (10:14)
[2022-03-27] MEDS: Aspirin E.C. 81 MG Tablet PO (10:14)
[2022-03-27] MEDS: Menthol/Lanolin/Calamine/Znox 113 GM Tube 1 APPLIC TOPICAL ×2 (10:14→21:43)
[2022-03-27] MEDS: Vitamin B Comp W-C Capsule 1 CAP PO (10:14)
[2022-03-27] MEDS: Enoxaparin 40 MG/0.4 ML Syringe SC (10:15)
[2022-03-27] MEDS: Multivitamin (Healthy Eyes) Capsule 1 CAP PO ×2 (10:15→21:43)
[2022-03-27] MEDS: Furosemide 20 MG Tablet PO (10:15)
[2022-03-27] MEDS: Metoprolol Tartrate 25 MG Tablet PO ×2 (10:15→21:45)
[2022-03-27] MEDS: Isosorbide Mononitrate 60 MG Tablet PO (10:15)
[2022-03-27] MEDS: amLODIPine 5 MG Tablet PO (10:16)
[2022-03-27] MEDS: Lisinopril 5 MG Tablet PO ×2 (10:16→21:45)
[2022-03-27] MEDS: Ezetimibe 10 MG Tablet PO (10:16)
[2022-03-27] MEDS: Clopidogrel Bisulfate 75 MG Tablet PO (10:16)
[2022-03-27] MEDS: Insulin Lispro 100 UNIT/ML INSULN.PEN SC ×3 (11:00→21:43)
[2022-03-27 11:55] LABS: Bedside Glucose 240 mg/dL (74-106)
[2022-03-27 16:35] LABS: Bedside Glucose 174 mg/dL (74-106)
--- NOTE | 2022-03-27 19:06 | PN.HOSP_ITS ---
Subjective Subjective Patient was seen and examined today, I talked with her daughter who was in the room at the time my examination, [facility] still has not given us a bed assignment for the patient, I talked briefly with cardiology today (Dr. Almonte) and he tells me that the patient should not be discharged home and that she has severe c oronary disease as well as valvular disease and needs to be transferred to tertiary facility from this hospital rather than going home. Objective Data Objective Data Vital Signs: Vital Signs Temp Pulse Resp BP Pulse Ox O2 Del Method O2 Flow Rate 97.9 F 58 L 18 102/40 L 95 Room Air 1 03/27/22 15:55 03/27/22 15:55 03/27/22 15:55 03/27/22 15:55 03/27/22 15:55 03/27/22 15:55 03/25/22 16:40 FiO2 40 03/20/22 12:34 Oxygen Flow Rate (L/min) 1 Oxygen Delivery Method Room Air Weight: 62.1 kg Body Mass Index (BMI) 26.2 Intake & Output: Intake and Output for Last 24 Hours 03/25/22 03/26/22 03/27/22 23:59 23:59 23:59 Intake Total 900 / 900 540 / 540 360 / 360 Output Total 950 / 950 1025 / 1025 1500 / 1500 Balance -50 / -50 -485 / -485 -1140 / -1140 Lab / Micro Data Result Diagrams: 03/26/22 07:27 03/26/22 07:27 Labs: Laboratory Results - last 24 hr 03/26/22 21:54: POC Glucose 199 H 03/27/22 06:44: POC Glucose 111 H 03/27/22 10:57: POC Glucose 240 H 03/27/22 16:03: POC Glucose 174 H Micro: Microbiology 03/20/22 09:50 Nasal Secretion SARS-CoV-2 & FLU Antigen (Rapid) - Final Rhythm Strip Rhythm Strip: Sinus Tach Rate: 102 Ectopy: None Physical Exam Narrative alert, oriented x3 and no apparent distress General Appearance: cooperative, well kempt and well developed Orientation / Consciousness: awake, oriented to person, oriented to place and oriented to time HEENT normocephalic, head/scalp atraumatic and moist oral mucous membranes Eyes PERRL, EOMs intact bilaterally and conjunctivae normal Neck supple, no JVD, thyroid normal and no carotid bruits General: trachea midline Resp normal respiratory effort and clear to auscultation bilaterally Auscultation: Negative for rales, rhonchi or wheezes Cardio regular rate, regular rhythm, S1 normal heart sound, S2 normal heart sound, no rub and no gallops Cardio Narrative: There is a 2/6 systolic murmur noted at the apex and right sternal border GI normal to inspection, nondistended, normoactive bowel sounds, soft to palpation, non-tender and non-distended Extremity no clubbing, cyanosis or edema Skin no rashes or lesions noted General Skin Exam: no breakdown Neuro oriented x3, CN's II-XII intact bilaterally, no focal motor deficits and no sensory deficits noted Sensorium / Orientation: awake, alert, oriented to person and oriented to place Speech: speech normal Psych affect normal Assessment & Plan Assessment/Plan (1) CAD (coronary artery disease), [place] coronary artery: PLAN: Plan 1. Acute on chronic congestive heart failure with preserved ejection fraction- patient is currently on room air at this time, continue present medications under direction of cardiology. #2 acute ybf-ONLQR-lfykpehbxg is participating in her care, her medications will remain the same #3 severe aortic stenosis-we are awaiting transfer the patient to [facility] for further treatment ( ? TAVR) #4 type 2 diabetes-blood sugars will be monitored, sliding scale insulin will be given as needed #5 essential hypertension-present medications will be continued #6 chronic depression-patient will remain on her current medication #7 acute hypoxic respiratory failure secondary to acute on chronic congestive heart failure with preserved ejection fraction-patient currently is on room air at this time #8 Severe coronary artery disease-again cardiology is participating in her care, her medications remained stable at this time, again we are awaiting bed assignment at [facility], nursing called today to verify that we were still waiting on a bed there. Charges/Coding Visit Charges Inpatient E&M: 05536 Subs Hosp L2
[2022-03-27] MEDS: Sertraline 50 MG Tablet 25 MG PO (21:45)
[2022-03-28] VITALS (11 sets, daily range): BP systolic 128–166; BP diastolic 40–76; PULSE 58–70; RESP 18; TEMP 36.3–36.7; O2SAT 95–100
[2022-03-28 01:05] LABS: Bedside Glucose 244 mg/dL (74-106)
[2022-03-28] MEDS: 0.9% Saline Lock 10 ML Syringe IV ×2 (04:05→13:22)
[2022-03-28] MEDS: hydrALAZINE 20 MG/ML Vial 10 MG IV (04:05)
[2022-03-28] MEDS: Insulin Lispro 100 UNIT/ML INSULN.PEN SC ×2 (06:50→11:30)
[2022-03-28 07:41] LABS: Bedside Glucose 172 mg/dL (74-106)
[2022-03-28] MEDS: Aspirin E.C. 81 MG Tablet PO (09:14)
[2022-03-28] MEDS: Multivitamins,Ther W-Minerals Tablet 1 TABLET PO (09:14)
[2022-03-28] MEDS: Metoprolol Tartrate 25 MG Tablet PO (09:14)
[2022-03-28] MEDS: Isosorbide Mononitrate 60 MG Tablet PO (09:15)
[2022-03-28] MEDS: Ezetimibe 10 MG Tablet PO (09:15)
[2022-03-28] MEDS: Menthol/Lanolin/Calamine/Znox 113 GM Tube 1 APPLIC TOPICAL (09:15)
[2022-03-28] MEDS: Multivitamin (Healthy Eyes) Capsule 1 CAP PO (09:15)
[2022-03-28] MEDS: Furosemide 20 MG Tablet PO (09:15)
[2022-03-28] MEDS: Clopidogrel Bisulfate 75 MG Tablet PO (09:15)
[2022-03-28] MEDS: amLODIPine 5 MG Tablet PO (09:15)
[2022-03-28] MEDS: Vitamin B Comp W-C Capsule 1 CAP PO (09:15)
[2022-03-28] MEDS: Lisinopril 5 MG Tablet PO (09:15)
[2022-03-28] MEDS: Enoxaparin 40 MG/0.4 ML Syringe SC (09:15)
--- NOTE | 2022-03-28 10:19 | PCM.DC.SUM ---
Providers Date of Admission: 03/20/22 Date of Discharge: 03/28/22 Primary Care Physician: Dr. Murphy Burton, Consultations 03/20/22 16:39 Consult: Cardiology Routine Consulting Provider: Lio Lucas Reason for Consult: NSTEMI, CHF EMERGENT Consult: No MD Notified: Yes Date Notified: 03/20/22 Time Notified: 16:39 Method of Notification: Verbal Method of Consult:: In-Person Comments:: Informed PA Reason For Visit: CHF Diagnosis Discharge Diagnosis (1) CAD (coronary artery disease), [place] coronary artery: Status: Acute Code(s): I25.10 - Atherosclerotic heart disease of [place] coronary artery without angina pectoris Plan 1. Acute on chronic congestive heart failure with preserved ejection fraction-patient is currently on room air at this time, continue present medications under direction of cardiology. #2 acute yya-TMDAR-bvuuitbqrs is participating in her care, her medications will remain the same #3 severe aortic stenosis-we are awaiting transfer the patient to [facility] for further treatment ( ? TAVR) #4 type 2 diabetes-blood sugars will be monitored, sliding scale insulin will be given as needed #5 essential hypertension-present medications will be continued #6 chronic depression-patient will remain on her current medication #7 acute hypoxic respiratory failure secondary to acute on chronic congestive heart failure with preserved ejection fraction-patient currently is on room air at this time #8 Severe coronary artery disease-again cardiology is participating in her care, her medications remained stable at this time, again we are awaiting bed assignment at [facility], nursing called today to verify that we were still waiting on a bed there. Medications at Discharge Home Medications nitroglycerin 0.4 mg sublingual tablet 0.4 mg sublingual Q5M PRN Chest Pain #20 tabs 07/11/16 aspirin 81 mg tablet,delayed release 81 mg PO DAILY HEART HEALTH 04/28/18 lisinopril 5 mg tablet 5 mg PO BID BLOOD PRESSURE 12/12/20 metformin 500 mg tablet 500 mg PO BID blood sugar 01/28/21 omega-3 250 iv-wkv-ezk-lutein 2.5 mg-zeaxanthin 0.5 mg capsule ([employer] [facility]) 1 cap PO BID EYE HEALTH 01/28/21 vitamin B complex 1 cap PO DAILY SUPPLEMENT 01/28/21 clopidogrel 75 mg tablet 75 mg PO DAILY BLOOD THINNER 03/20/22 ezetimibe 10 mg tablet 10 mg PO DAILY CHOLESTEROL 03/20/22 metoprolol tartrate 25 mg tablet 12.5 mg PO BID BLOOD PRESSURE 03/20/22 multivitamin with minerals 1 tab PO DAILY SUPPLEMENT 03/20/22 sertraline 25 mg tablet 25 mg PO QHS DEPRESSION 03/20/22 isosorbide mononitrate 30 mg tablet,extended release 24 hr 30 mg PO DAILY #30 tabs 03/24/22 Hospital Course Operations None Procedures Cardiac catheterization Summary of Care Provided Minutes Spent on Discharge: 31 Hospital Course: This 87-year-old white female was seen in the emergency room with a chief complaint of shortness of breath. She denied any chest pain. Due to a low pulse ox, patient had to be placed on BiPAP, work-up in the emergency room included blood gas which showed a PO2 of 92 and a PCO2 of 42 with a pH of 7.33, this was in the setting of 60% O2 on BiPAP. Patient had a chest x-ray performed which showed a mild degree of CHF with superimposed bibasilar infiltrates worse at the left lung base. Patient's labs showed a slightly elevated white blood cell count, patient's troponin was elevated. EKG shows sinus tachycardia of 102, there was ST depression in the inferior and anterior lateral leads. This EKG was unchanged from prior 1 done approximately a year ago. Patient was admitted to PCU for non-STEMI, acute CHF, and hypoxic respiratory failure, cardiac enzymes were cycled, she was placed on IV diuretics and seen in consultation by cardiology. Cardiology performed a cardiac catheterization on the patient and it showed severe triple-vessel disease along with severe aortic valvular heart disease, it was recommended that the patient be transferred to tertiary facility for further treatment. Patient remained in the hospital several days after the cardiac cath waiting for a bed at [facility], during that time she was weaned off oxygen. On 03/28/2022, patient was seen and examined: On examination she appeared in good health and spirits, she does not appear to be in any distress. Vital signs as documented. Skin warm and dry and without overt rashes. Neck without JVD, thyroid appears normal, trachea is midline, neck is supple. Lungs clear, normal air movement was noted. Heart exam notable for regular rhythm, normal sounds, a 2/6 systolic murmur was noted at the apex left sternal border and right sternal border, there were no rubs or gallops. Abdomen unremarkable and without evidence of organomegaly, masses, or abdominal aortic enlargement, bowel sounds are present in all 4 quadrants, no abdominal tenderness was noted. Extremities nonedematous, no cyanosis was noted, no clubbing was noted. Neuro: Cranial nerves II through XII are grossly intact, no focal motor deficits were noted, sensation to light touch and pinprick is intact, motor exam 5/5 throughout. Psych: Patient is alert and oriented x3, she does not appear anxious or depressed, she does not appear agitated. Patient was discharged in stable condition to [facility] for further care on 03/28/2022 Weight / BMI Weight Weight: 62 kg Body Mass Index (BMI) 26.2 ABG / Lab / Microbiology Data Result Diagrams: 03/26/22 07:27 03/26/22 07:27 Laboratory: Laboratory Results - last 24 hr 03/27/22 10:57: POC Glucose 240 H 03/27/22 16:03: POC Glucose 174 H 03/27/22 21:41: POC Glucose 244 H 03/28/22 06:49: POC Glucose 172 H Microbiology: Microbiology 03/20/22 09:50 Nasal Secretion SARS-CoV-2 & FLU Antigen (Rapid) - Final Meaningful Use Info Meaningful Use Diagnoses (Choose all that apply): AMI and CHF AMI/Post PCI/Angioplasty Aspirin given w/in 24hrs of arrival?: Yes ASA at discharge?: Yes Antiplatelet Therapy at Discharge:: Yes Statins at discharge?: No Reason statins not ordered:: Allergy Shai/ARB at discharge?: Yes Beta José Antonio at discharge?: Yes Done w/ Acute ME measure.: Yes Documented LVEF (%): 65 CHF SHAI/ARB ordered at discharge?: Yes Documented LVEF (%): 65 Discharge Plan Admission Admit Date/Time: 03/20/22 12:10 Attending Provider: Sung Sands Primary Care Provider: Murphy Burton Consulting Providers: Lio Lucas ; Shy Callejas ; Antwon Malin Discharge Orders/Prescriptions Prescriptions: New isosorbide mononitrate 30 mg Tablet Extended Release 24 Hr 30 mg PO DAILY Qty: 30 0RF Continued vitamin B complex Capsule 1 cap PO DAILY [facility] 250-2.5-0.5 mg capsule 1 cap PO BID nitroglycerin 0.4 MG tablet 0.4 mg SUBLINGUAL Q5M PRN (Reason: Chest Pain) Qty: 20 1RF aspirin 81 MG tablet 81 mg PO DAILY Label Comments: STATES WAS NOT TOLD TO STOP FOR SURGERY lisinopril 5 mg tablet 5 mg PO BID metformin 500 mg tablet 500 mg PO BID sertraline 25 mg tablet 25 mg PO QHS Label Comments: TAKE 1 TABLET BY MOUTH ONCE DAILY multivitamin with minerals Tablet 1 tab PO DAILY metoprolol tartrate 25 mg tablet 12.5 mg PO BID Label Comments: TAKE 1/2 (ONE-HALF) TABLET BY MOUTH TWICE DAILY clopidogrel 75 mg tablet 75 mg PO DAILY ezetimibe 10 mg tablet 10 mg PO DAILY Referrals / Follow Up: Murphy Burton DO [Primary Care Provider] - Within 1 Week Narendra Almonte MD [Med Staff - Active Staff] - Within 1 Week Disposition Disposition (needs filled in before D/C Order can be placed): [facility] Charges/Coding Visit Charges Inpatient E&M: 19566 Disch Hosp
--- NOTE | 2022-03-28 10:32 | NURSING ---
Report called to nurse Glass for pt to be transferred to [facility].
[2022-03-28 12:00] LABS: Bedside Glucose 194 mg/dL (74-106)
[2022-03-28] MEDS: Morphine 2 MG/ML Syringe IV (13:21)
== END 2022-03-28 13:33 | disposition short-term general hospital (02) | DRG 280 ==
LOC: ED 12:14 → PCU 14:18
PROVIDERS: Family Medicine; Internal Medicine; Admitting Provider Internal Medicine; Emergency Provider Emergency Medicine; PCP Family Medicine; Visit Provider Internal Medicine
DX: I11.0 Hypertensive heart disease with heart failure (principal); I21.4 Non-ST elevation (NSTEMI) myocardial infarction; J96.01 Acute respiratory failure with hypoxia; J81.0 Acute pulmonary edema; I50.33 Acute on chronic diastolic (congestive) heart failure; E11.51 Type 2 diabetes mellitus with diabetic peripheral angiopathy without gangrene; I25.10 Atherosclerotic heart disease of native coronary artery without angina pectoris; I35.0 Nonrheumatic aortic (valve) stenosis; I65.21 Occlusion and stenosis of right carotid artery; E78.00 Pure hypercholesterolemia, unspecified; Z79.02 Long term (current) use of antithrombotics/antiplatelets; Z79.82 Long term (current) use of aspirin; Z66 Do not resuscitate; Z79.84 Long term (current) use of oral hypoglycemic drugs; R01.1 Cardiac murmur, unspecified; F32.A Depression, unspecified; Z79.899 Other long term (current) drug therapy; Z95.5 Presence of coronary angioplasty implant and graft
CPT/HCPCS: 36415; 36600; 71045; 80048; 80053; 82803; 82962; 83735; 83880; 84484; 85025; 87428; 93005; 93460; 93567; 94002; 99152; 99153; 99251; 99285; J7030; A4216; C1751; C1769; C1894; G0463; J1940; Q9967

== ENCOUNTER 2022-04-16 20:57 | Emergency (ER) | payer OTHER, SELFPAY ==
[2020-12-17 08:26] VITALS: BMI 23.1
[2022-04-16] VITALS (12 sets, daily range): BP systolic 91–215; BP diastolic 50–107; PULSE 62–102; RESP 12–35; TEMP 36.2; O2SAT 88–98; BMI 28.7
--- NOTE | 2022-04-16 21:03 | EKG12_ITS ---
Test Reason : DYSRHYTHMIA Blood Pressure : / mmHG Vent. Rate : 089 BPM Atrial Rate : 089 BPM P-R Int : 164 ms QRS Dur : 092 ms QT Int : 378 ms P-R-T Axes : 076 057 093 degrees QTc Int : 459 ms Normal sinus rhythm ST depression, consider subendocardial injury Nonspecific T wave abnormality Abnormal ECG Confirmed by MANASA MELENDEZ, SENTHIL ([id number]), scientific publications editor ERNESTINA GARCIA ([id number]) on 04/17/2022 1:43:14 PM Referred By: CLAUDIA Confirmed By:SARAH GOEL MD
[2022-04-16 21:12] LABS: Absolute Lymphocyte Count 2.82 X10^3/uL (0.83-4.51); Absolute Neutrophil Count 8.1 X10^3/uL (2.0-7.7); Basophil# 0.07 X10^3/uL; Basophil% 0.6 % (0-1); Eosinophil# 0.46 X10^3/uL; Eosinophils% 3.7 % (0-5); Hematocrit 38.5 % (37-47); Hemoglobin 12.5 g/dL (12.0-15.0); Lymphocyte # 2.82 X10^3/ul (0.83-4.51); Mean Corp Hgb Conc 32.5 g/dL (32-36); Mean Corpuscular Hgb 28.9 pg (27.0-32.0); Mean Corpuscular Volume 88.9 fL (81-99); Mean Platelet Vol. 9.9 fl (6.2-12.0); Monocyte# 0.76 X10^3/uL; Monocyte% 6.2 % (0-10); NRBC Flagged by Analyzer 0 % (0-5); Neutrophil # 8.09 X10^3/uL (2.7-7.7); Neutrophil % 65.8 % (47-70); Platelet Count 305 K/mm3 (150-450); RBC Distribution Width CV 13.4 % (11.6-14.6); Red Blood Count 4.33 M/mm3 (4.2-5.4); White Blood Count 12.3 K/mm3 (4.4-11.0)
--- NOTE | 2022-04-16 21:16 | RAD_ITS ---
STUDY: X-RAY CHEST REASON FOR EXAM: Female, 87 years old. sob TECHNIQUE: AP portable COMPARISON: March 20, 2022 FINDINGS: Small bilateral pleural effusions and bibasilar atelectasis or infiltrate slightly worse on the left. Normal size heart. Normal mediastinum and jessy. Normal visualized pulmonary arteries. Mildly calcified aortic arch and descending thoracic aorta. Dorsal spine and shoulders demonstrate degenerative change. Normal visualized ribs, and clavicles. There is no demonstrated abnormality of the visualized soft tissue structures of the upper abdomen. RAD/Chest 1 View (Portable) IMPRESSION: Small bilateral pleural effusions and bibasilar atelectasis or infiltrates more pronounced on the left Electronically Signed: Shorty Lynn MD at 21:28 EST ,
[2022-04-16 21:30] LABS: BNP,B-Type NATRIURETIC PEPTIDE 616.1 pg/mL (0-100)
[2022-04-16 21:32] LABS: Anion Gap 7 (5-15); BUN 20 mg/dL (7-18); BUN/Creat Ratio 30.3 RATIO (10-20); Calcium,Total 8.6 mg/dL (8.5-10.1); Chloride 106 mmol/L (98-107); Creatinine, Serum 0.66 mg/dL (0.55-1.02); EST Glomerular Filtration Rate 90 mL/min (>60); Est Glom Filt Rate - Afr Amer 109 mL/min (>60); Estimated Creatinine Clearance 28.47 ml/min; Glucose 279 mg/dL (74-106); Potassium 4.3 mmol/L (3.5-5.1); Sodium Level 137 mmol/L (136-145); Troponin-I HS 33 pg/mL (3.0-54.0)
--- NOTE | 2022-04-16 22:19 | ED.VIS.DYS ---
HPI <Cedrick Davenport MD - Last Filed: 04/17/22 22:39> History of Present Illness Chief Complaint: Shortness of Breath Narrative Narrative: 87-year-old female past medical history of coronary artery disease, recently had 3 stents placed at [facility] at the end of February, was recently released from the hospital presents with sudden onset of shortness of breath. Her history and physical is limited secondary to her condition. According to EMS and her family, she had sudden onset of shortness of breath but no recent fever. They called squad. Patient was hypoxic at 74% on room air. She was placed on BiPAP by EMS. Of note, she has history of aortic stenosis and is supposed to have aortic valve replacement at sometime in the near future. Family states that her blood pressure was very high. They noticed that it was elevated above 200. They called EMS because of her elevated blood pressure and her severe shortness of breath/respiratory distress. PFS <Cedrick Davenport MD - Last Filed: 04/17/22 22:39> [facility] Medical History Aortic valve disorders Atherosclerotic heart disease of [place] coronary artery without angina pectoris Carotid stenosis, left Coronary artery disease Depression Diabetes Essential hypertension HLD (hyperlipidemia) Hypertension Moderate to severe aortic stenosis Non-smoker Nonrheumatic aortic (valve) stenosis Nonrheumatic mitral (valve) insufficiency Occlusion and stenosis of left carotid artery Occlusion and stenosis of right carotid artery Osteoporosis PAD (peripheral artery disease) Presence of stent in coronary artery (~04/04/22) TIA (transient ischemic attack) Home Medications nitroglycerin 0.4 mg sublingual tablet 0.4 mg sublingual Q5M PRN Chest Pain #20 tabs 07/11/16 [Rx Last Taken 03/19/22] aspirin 81 mg tablet,delayed release 81 mg PO DAILY HEART HEALTH 04/28/18 [History Last Taken 03/20/22] metformin 500 mg tablet 500 mg PO BID blood sugar 01/28/21 [History Last Taken 03/20/22] omega-3 250 rl-tzv-yge-lutein 2.5 mg-zeaxanthin 0.5 mg capsule ([employer]) 1 cap PO BID EYE HEALTH 01/28/21 [History Last Taken 03/20/22] vitamin B complex 1 cap PO DAILY SUPPLEMENT 01/28/21 [History Last Taken 03/20/22] clopidogrel 75 mg tablet 75 mg PO DAILY BLOOD THINNER 03/20/22 [History Last Taken 03/20/22] ezetimibe 10 mg tablet 10 mg PO DAILY CHOLESTEROL 03/20/22 [History Last Taken 03/20/22] multivitamin with minerals 1 tab PO DAILY SUPPLEMENT 03/20/22 [History Last Taken 03/20/22] sertraline 25 mg tablet 25 mg PO QHS DEPRESSION 03/20/22 [History Last Taken 03/19/22] carvedilol 12.5 mg tablet 12.5 mg PO BID 04/07/22 [History Last Taken Unknown] Allergy/AdvReac Type Severity Reaction Status Date / Time rosuvastatin AdvReac Severe Myalgias Verified 04/16/22 21:09 simvastatin AdvReac Severe myalgias Verified 04/16/22 21:09 Family History Father CAD (coronary artery disease) Hypertension Myocardial infarction, Onset Age: 80 Sister CVA (cerebral vascular accident), Onset Age: 66 Diabetes Arthritis Mother Cancer Thyroid Surgical History History of CEA (carotid endarterectomy) (~2010) History of hysterectomy History of left-sided carotid endarterectomy (05/05/17) History of right and left heart catheterization (LHC) (~03/21/22) Presence of coronary angioplasty implant and graft (~07/10/16) Social History Smoking Status: Never smoker second hand exposure: No alcohol intake: never substance use type: does not use caffeine: No ROS <Cedrick Davenport MD - Last Filed: 04/17/22 22:39> ROS ED ROS Narrative Constitutional: No fever, no chills. Elevated blood pressure. HEENT: No sore throat. No neck pain. No loss of vision. No rhinorrhea. Cardiovascular: No chest pain. No palpitations. No pedal edema. Respiratory: Occasional cough, positive shortness of breath. Abdominal: No abdominal pain. No nausea. No vomiting. Genitourinary: No dysuria. No hematuria. Musculoskeletal: No myalgias. No arthralgias. Neurologic: No headaches. No dizziness. No lightheadedness. Skin: No rash. No change in color. Psychiatric: No depression. No anxiety. EXAM <Cedrick Davenport MD - Last Filed: 04/17/22 22:39> Physical Exam Narrative Exam Narrative: Afebrile. Vital signs noted. HEENT: Normocephalic. Atraumatic. PERRL, EOMI. Neck soft and supple. No point tenderness or step off. Cardiovascular: Regular rate and rhythm. Positive murmur, no rubs, or gallops appreciated. Respiratory: Positive tachypnea. Positive accessory muscle use. Moderate to severe distress. Bibasilar rales on auscultation. Gastrointestinal: Abdomen soft, nontender, with normoactive bowel sounds. No rebound or guarding. Neurological: Awake. Alert. Nonfocal, nonlateralizing. Skin: No rash. Normal color. No pallor. Musculoskeletal: No pedal edema. Full range of motion extremities. Const Vital Signs: 04/16/22 22:58 04/16/22 22:50 04/16/22 23:00 Temperature Pulse Rate 68 Respiratory Rate 31 H Respiratory Effort Respiratory Depth Respiratory Pattern Blood Pressure 116/53 L Blood Pressure Mean 74 Pulse Ox 97 98 95 Oxygen Delivery Method Nasal Cannula Nasal Cannula Nasal Cannula Oxygen Flow Rate (L/min) 4 4 2 04/16/22 23:07 04/16/22 23:15 04/16/22 23:34 Temperature Pulse Rate Respiratory Rate Respiratory Effort Respiratory Depth Respiratory Pattern Blood Pressure Blood Pressure Mean Pulse Ox 93 94 88 Oxygen Delivery Method Room Air Nasal Cannula Room Air Oxygen Flow Rate (L/min) 2 04/16/22 23:57 04/17/22 00:00 04/17/22 02:00 Temperature Pulse Rate 66 64 Respiratory Rate 18 15 Respiratory Effort Short of Breath Labored Accessory Muscle Use Respiratory Depth Normal Respiratory Pattern Tachypnea Blood Pressure 113/47 L 124/47 H Blood Pressure Mean 69 72 Pulse Ox 96 96 Oxygen Delivery Method Nasal Cannula Nasal Cannula Oxygen Flow Rate (L/min) 2 2 04/17/22 03:00 04/17/22 06:00 Temperature 97.9 F Pulse Rate 63 66 Respiratory Rate 15 20 H Respiratory Effort Respiratory Depth Respiratory Pattern Blood Pressure 120/49 L 140/55 H Blood Pressure Mean 72 83 Pulse Ox 96 94 Oxygen Delivery Method Oxygen Flow Rate (L/min) <Dr. Alexy Sampson DO - Last Filed: 04/17/22 02:28> Physical Exam Const Vital Signs: 04/16/22 22:58 04/16/22 22:50 04/16/22 23:00 Temperature Pulse Rate 68 Respiratory Rate 31 H Respiratory Effort Respiratory Depth Respiratory Pattern Blood Pressure 116/53 L Blood Pressure Mean 74 Pulse Ox 97 98 95 Oxygen Delivery Method Nasal Cannula Nasal Cannula Nasal Cannula Oxygen Flow Rate (L/min) 4 4 2 04/16/22 23:07 04/16/22 23:15 04/16/22 23:34 Temperature Pulse Rate Respiratory Rate Respiratory Effort Respiratory Depth Respiratory Pattern Blood Pressure Blood Pressure Mean Pulse Ox 93 94 88 Oxygen Delivery Method Room Air Nasal Cannula Room Air Oxygen Flow Rate (L/min) 2 04/16/22 23:57 04/17/22 00:00 04/17/22 02:00 Temperature Pulse Rate 66 64 Respiratory Rate 18 15 Respiratory Effort Short of Breath Labored Accessory Muscle Use Respiratory Depth Normal Respiratory Pattern Tachypnea Blood Pressure 113/47 L 124/47 H Blood Pressure Mean 69 72 Pulse Ox 96 96 Oxygen Delivery Method Nasal Cannula Nasal Cannula Oxygen Flow Rate (L/min) 2 2 04/17/22 03:00 04/17/22 06:00 Temperature 97.9 F Pulse Rate 63 66 Respiratory Rate 15 20 H Respiratory Effort Respiratory Depth Respiratory Pattern Blood Pressure 120/49 L 140/55 H Blood Pressure Mean 72 83 Pulse Ox 96 94 Oxygen Delivery Method Oxygen Flow Rate (L/min) MDM <Cedrick Davenport MD - Last Filed: 04/17/22 22:39> [facility] Narrative Medical decision making narrative: Patient was immediately placed on BiPAP. Her systolic blood pressure is 212. I reviewed her laboratory work, and CBC demonstrates elevated white count of 12.3 which I think is nonspecific, hemoglobin 12.5, hematocrit 38.5. Platelet count normal at 305. In review of her BMP, glucose is elevated at 279 but she has a normal anion gap of 7. I do not feel that she is in ketoacidosis. Her sodium is normal at 137 with potassium normal at 4.3. BUN slightly elevated at 20 with a normal creatinine of 0.66. Troponin is 33, and it has been higher in the past. BNP is also elevated at 616 consistent with mild CHF. EKG was obtained and interpreted by myself which demonstrates normal sinus rhythm at 89 bpm without ectopy or acute ST changes. No STEMI. No significant change from an EKG dated March 25, 2022. Chest x-ray interpreted by myself shows small bilateral pleural effusions and bilateral atelectasis versus infiltrates. I do feel that she may have more CHF, given her history. I was going to start a nitroglycerin drip for her hypertensive emergency with thought of flash pulmonary edema, however it was learned by the RN that the patient had been given clonidine as instructed to her family. Her systolic blood pressure is now 91. Upon repeat examination, it has come up to above 100 systolic. In discussion with her family, she is supposed to have imaging performed on Thursday, 2 days from now for her aortic valve replacement. They are requesting that she be transferred to the [facility]. I discussed the patient with the transfer line. There is question on bed availability. She may require admission here before transfer to the [facility]. Additionally, her BiPAP will be attempted to be weaned. Lab Data Attestation: I reviewed the patient's lab results. Labs: Laboratory Results - last 24 hr 04/16/22 04/16/22 04/16/22 21:06 21:06 21:06 WBC 12.3 H RBC 4.33 Hgb 12.5 Hct 38.5 MCV 88.9 MCH 28.9 MCHC 32.5 RDW Std Deviation 44.0 H RDW Coeff of Jennifer 13.4 Plt Count 305 MPV 9.9 Immature Gran % (Auto) 0.700 Neut % (Auto) 65.8 Lymph % (Auto) 23.0 [place] % (Auto) 6.2 Eos % (Auto) 3.7 Baso % (Auto) 0.6 Absolute Neuts (auto) 8.1 H Absolute Lymphs (auto) 2.82 Nucleated RBC % 0 Sodium 137 Potassium 4.3 Chloride 106 Carbon Dioxide 24.0 Anion Gap 7 BUN 20 H Creatinine 0.66 Estim Creat Clear Calc 28.47 Est GFR (MDRD) Af Amer 109 Est GFR (MDRD) Non-Af 90 BUN/Creatinine Ratio 30.3 H Glucose 279 H Calcium 8.6 Troponin I High Sens 33 B-Natriuretic Peptide 616.1 H Radiography Diagnostic Testing: Clinical Impression(s) from Imaging Studies Chest X-Ray 04/16/22 21:16 IMPRESSION: Small bilateral pleural effusions and bibasilar atelectasis or infiltrates more pronounced on the left Electronically Signed: Shorty Lynn MD at 21:28 EST , <Dr. Alexy Sampson, DO - Last Filed: 04/17/22 02:28> [facility] Lab Data Attestation: I reviewed the patient's lab results. Labs: Laboratory Results - last 24 hr 04/16/22 04/16/22 04/16/22 21:06 21:06 21:06 WBC 12.3 H RBC 4.33 Hgb 12.5 Hct 38.5 MCV 88.9 MCH 28.9 MCHC 32.5 RDW Std Deviation 44.0 H RDW Coeff of Jennifer 13.4 Plt Count 305 MPV 9.9 Immature Gran % (Auto) 0.700 Neut % (Auto) 65.8 Lymph % (Auto) 23.0 [place] % (Auto) 6.2 Eos % (Auto) 3.7 Baso % (Auto) 0.6 Absolute Neuts (auto) 8.1 H Absolute Lymphs (auto) 2.82 Nucleated RBC % 0 Sodium 137 Potassium 4.3 Chloride 106 Carbon Dioxide 24.0 Anion Gap 7 BUN 20 H Creatinine 0.66 Estim Creat Clear Calc 28.47 Est GFR (MDRD) Af Amer 109 Est GFR (MDRD) Non-Af 90 BUN/Creatinine Ratio 30.3 H Glucose 279 H Calcium 8.6 Troponin I High Sens 33 B-Natriuretic Peptide 616.1 H Radiography Diagnostic Testing: Clinical Impression(s) from Imaging Studies Chest X-Ray 04/16/22 21:16 IMPRESSION: Small bilateral pleural effusions and bibasilar atelectasis or infiltrates more pronounced on the left Electronically Signed: Shorty Lynn MD at 21:28 EST , Treatment and Re-Evaluation Narrative: The patient was signed out to me while awaiting possible acceptance at [facility]. [facility] return the phone call around 2 in the morning and they had excepted the patient she will be excepted to the [facility] by Dr. Olivarez. Patient has remained hemodynamically stable during this time in the ER and is therefore safe for transfer Discharge Plan Triage Chief Complaint: Shortness of Breath ED Provider: Cedrick Davenport Dx/Rx/DC Orders Clinical Impression: History of aortic stenosis, Diabetes mellitus, type 2, Accelerated hypertension, Acute hypoxemic respiratory failure Prescriptions: No Action vitamin B complex Capsule 1 cap PO DAILY [facility] 250-2.5-0.5 mg capsule 1 cap PO BID carvedilol 12.5 mg tablet 12.5 mg PO BID Rx Instructions: must administer with a meal/food nitroglycerin 0.4 MG tablet 0.4 mg SUBLINGUAL Q5M PRN (Reason: Chest Pain) Qty: 20 1RF aspirin 81 MG tablet 81 mg PO DAILY Label Comments: STATES WAS NOT TOLD TO STOP FOR SURGERY metformin 500 mg tablet 500 mg PO BID sertraline 25 mg tablet 25 mg PO QHS Label Comments: TAKE 1 TABLET BY MOUTH ONCE DAILY multivitamin with minerals Tablet 1 tab PO DAILY clopidogrel 75 mg tablet 75 mg PO DAILY ezetimibe 10 mg tablet 10 mg PO DAILY Primary Care Provider: Murphy Burton Referrals: Murphy Burton DO [Primary Care Provider] - Disposition Disposition: Acute Care Hospital Discharge Location: [facility] Discharge Date/Time: 04/17/22 06:00
[2022-04-17] VITALS: BP 113/47; PULSE 66; RESP 18; O2SAT 96
[2022-04-17 02:00] VITALS: BP 124/47; PULSE 64; RESP 15; O2SAT 96
--- NOTE | 2022-04-17 02:36 | NURSING ---
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 RODRIGUEZ SAID ETA 2 HRS APPROX 0430.
[2022-04-17 03:00] VITALS: BP 120/49; PULSE 63; RESP 15; O2SAT 96
[2022-04-17 06:00] VITALS: BP 140/55; PULSE 66; RESP 20; TEMP 36.6; O2SAT 94
--- NOTE | 2022-04-17 06:04 | ED.RN ---
ATTEMPTED TO CALL REPORT TO [facility] AT THIS TIME. NO NURSE AVAILABLE. WILL TRY AGAIN LATER THIS AM
--- NOTE | 2022-04-17 07:17 | ED.RN ---
ATTEMPTED TO CALL REPORT TO [facility]. INFORMED NURSE IS BUSY AND WILL CALL BACK FOR REPORT
== END 2022-04-17 06:00 | disposition short-term general hospital (02) ==
PROVIDERS: Emergency Provider Emergency Medicine; PCP Family Medicine; Visit Provider Emergency Medicine
DX: R06.02 Shortness of breath (principal); E11.9 Type 2 diabetes mellitus without complications; Z95.2 Presence of prosthetic heart valve; I10 Essential (primary) hypertension; E78.5 Hyperlipidemia, unspecified; I25.10 Atherosclerotic heart disease of native coronary artery without angina pectoris
CPT/HCPCS: 71045; 80048; 83880; 84484; 85025; 87428; 93005; 94002; 99285

== ENCOUNTER 2022-04-19 21:52 | Emergency (ER) | payer OTHER, SELFPAY ==
[2020-12-17 08:26] VITALS: BMI 23.1
[2022-04-19] VITALS (8 sets, daily range): BP systolic 101–196; BP diastolic 44–86; PULSE 67–88; RESP 12–34; TEMP 36.4–36.5; O2SAT 95–100; BMI 28.5
--- NOTE | 2022-04-19 22:09 | EKG12_ITS ---
Test Reason : SOB Blood Pressure : / mmHG Vent. Rate : 100 BPM Atrial Rate : 100 BPM P-R Int : 150 ms QRS Dur : 090 ms QT Int : 344 ms P-R-T Axes : 079 055 098 degrees QTc Int : 443 ms Normal sinus rhythm ST depression, consider subendocardial injury Nonspecific T wave abnormality Abnormal ECG Confirmed by ALISSA MELENDEZ, URBANO ([id number]), editor map ERNESTINA GARCIA ([id number]) on 04/21/2022 10:48:32 AM Referred By: CARLA Confirmed By:URBANO MAXWELL MD
--- NOTE | 2022-04-19 22:10 | RAD_ITS ---
INDICATION: SOB EXAMINATION/TECHNIQUE: X-RAY - XR Chest 1 View COMPARISON: 04/16/2022 FINDINGS: LINES/DEVICES: None. LUNGS: Similar bilateral pulmonary infiltrates and bilateral pleural effusions. MEDIASTINUM AND CARDIOVASCULAR STRUCTURES: Cardiac silhouette not enlarged. Central airways and mediastinal contour are unremarkable. RAD/Chest 1 View (Portable) IMPRESSION: Similar appearance of bilateral pulmonary infiltrates and pleural effusions. Electronically Signed: Narendra Arrington MD at 22:26 EST ,
--- NOTE | 2022-04-19 22:29 | ED.VIS.DYS ---
HPI History of Present Illness Chief Complaint: Shortness of Breath Informant: patient and family Narrative Narrative: Brought in by EMS from home family present provide additional information. Patient discharged from [facility] at 530 if she got home. Reported 8:00 started feeling's dyspnea and chest discomfort. EMS arrival pulse ox in the 80s difficulty with oxygenation placed on a CPAP and brought here. Per family she was admitted the hospital [place] for an NSTEMI had multivessel disease she is transferred to [facility] with thoughts of cardiac bypass however per family due to age surgical option was discussed and she had 3 stents instead. Reported had a bad aortic valve with plans for replacement. She went home from her stent 3 days ago presented similarly is currently was sent back to [facility]. Per Alvarez yesterday had a chest scan and preparations for valve repair. She was doing well today and was sent home. She did not go home on oxygen. Patient is on aspirin and Plavix. Has not taken night medicine since being home. Patient given nitro x1 per family. EMS reported blood pressure systolic 213. Prior similar symptoms: Yes PFSH PFSH Medical History Aortic valve disorders Atherosclerotic heart disease of [place] coronary artery without angina pectoris Carotid stenosis, left Coronary artery disease Depression Diabetes Essential hypertension HLD (hyperlipidemia) Hypertension Moderate to severe aortic stenosis Non-smoker Nonrheumatic aortic (valve) stenosis Nonrheumatic mitral (valve) insufficiency Occlusion and stenosis of left carotid artery Occlusion and stenosis of right carotid artery Osteoporosis PAD (peripheral artery disease) Presence of stent in coronary artery (~04/04/22) TIA (transient ischemic attack) Home Medications nitroglycerin 0.4 mg sublingual tablet 0.4 mg sublingual Q5M PRN Chest Pain #20 tabs 07/11/16 [Rx Last Taken 03/19/22] aspirin 81 mg tablet,delayed release 81 mg PO DAILY HEART HEALTH 04/28/18 [History Last Taken 03/20/22] metformin 500 mg tablet 500 mg PO BID blood sugar 01/28/21 [History Last Taken 03/20/22] omega-3 250 [id number]-lutein 2.5 mg-zeaxanthin 0.5 mg capsule ([facility] [email or web address]) 1 cap PO BID EYE HEALTH 01/28/21 [History Last Taken 03/20/22] vitamin B complex 1 cap PO DAILY SUPPLEMENT 01/28/21 [History Last Taken 03/20/22] clopidogrel 75 mg tablet 75 mg PO DAILY BLOOD THINNER 03/20/22 [History Last Taken 03/20/22] ezetimibe 10 mg tablet 10 mg PO DAILY CHOLESTEROL 03/20/22 [History Last Taken 03/20/22] multivitamin with minerals 1 tab PO DAILY SUPPLEMENT 03/20/22 [History Last Taken 03/20/22] sertraline 25 mg tablet 25 mg PO QHS DEPRESSION 03/20/22 [History Last Taken 03/19/22] carvedilol 12.5 mg tablet 25 mg PO BID 04/07/22 [History Last Taken Unknown] Allergy/AdvReac Type Severity Reaction Status Date / Time rosuvastatin AdvReac Severe Myalgias Verified 04/16/22 21:09 simvastatin AdvReac Severe myalgias Verified 04/16/22 21:09 Family History Father CAD (coronary artery disease) Hypertension Myocardial infarction, Onset Age: 80 Sister CVA (cerebral vascular accident), Onset Age: 66 Diabetes Arthritis Mother Cancer Thyroid Surgical History History of CEA (carotid endarterectomy) (~2010) History of hysterectomy History of left-sided carotid endarterectomy (05/05/17) History of right and left heart catheterization (LHC) (~03/21/22) Presence of coronary angioplasty implant and graft (~07/10/16) Social History Smoking Status: Never smoker second hand exposure: No alcohol intake: never substance use type: does not use caffeine: No ROS ROS ED Constitutional Constitutional ED: Denies chills, fever(s) or sweats Eyes Eyes: Denies change in vision ENT ENT ED: Denies dysphagia or sore throat Cardiovascular Cardiovascular: Reports chest pain; Denies leg edema, palpitations or racing heartbeat Respiratory/Chest Respiratory/Chest: Reports dyspnea; Denies cough or dyspnea on exertion Gastrointestinal Gastrointestinal: Denies abdominal pain, diarrhea, nausea or vomiting Genitourinary Genitourinary ED: Denies dysuria, hematuria or urinary frequency Musculoskeletal Musculoskeletal: Denies back pain, extremity pain or neck pain Integumentary Denies rash or wounds Neurologic Neurologic: Denies headache(s), paresthesias or weakness EXAM Physical Exam Const Vital Signs: 04/19/22 21:53 04/19/22 22:09 04/19/22 22:09 Temperature 97.6 F L Temperature Source Axillary Pulse Rate 84 Respiratory Rate 34 H 24 H Respiratory Effort Short of Breath Accessory Muscle Use Respiratory Pattern Hyperpnea Blood Pressure 196/86 H Blood Pressure Mean 122 Pulse Ox 96 Oxygen Delivery Method CPAP Bi-pap Bi-pap Oxygen Flow Rate (L/min) Fraction of Inspired Oxygen (FIO2) 04/19/22 23:16 04/19/22 22:15 04/19/22 23:45 Temperature 97.7 F L Temperature Source Pulse Rate 71 76 72 Respiratory Rate 16 20 H 19 H Respiratory Effort Respiratory Pattern Blood Pressure 118/52 L 161/77 H 138/54 H Blood Pressure Mean 74 105 82 Pulse Ox 98 96 97 Oxygen Delivery Method Nasal Cannula Bi-pap Oxygen Flow Rate (L/min) 5 Fraction of Inspired Oxygen (FIO2) 40 04/20/22 00:00 04/19/22 23:00 04/19/22 23:30 Temperature Temperature Source Pulse Rate 66 67 72 Respiratory Rate 18 17 19 H Respiratory Effort Respiratory Pattern Blood Pressure 128/48 H 101/44 L 138/54 H Blood Pressure Mean 74 63 82 Pulse Ox 96 98 97 Oxygen Delivery Method Nasal Cannula Bi-pap Nasal Cannula Oxygen Flow Rate (L/min) 5 5 Fraction of Inspired Oxygen (FIO2) 04/19/22 22:00 04/20/22 01:07 Temperature Temperature Source Pulse Rate 88 66 Respiratory Rate 26 H 17 Respiratory Effort Respiratory Pattern Tachypnea Blood Pressure 153/53 H Blood Pressure Mean 86 Pulse Ox 100 99 Oxygen Delivery Method Nasal Cannula Oxygen Flow Rate (L/min) 5 Fraction of Inspired Oxygen (FIO2) 50 Positive well nourished and well developed Constitutional Narrative: Currently on BiPAP General Appearance ED: well developed HEENT Reports moist mucous membranes normocephalic and atraumatic Eyes PERRL, EOMs intact bilaterally and conjunctivae normal General Eye ED: Yes normal appearance of both eyes Neck no lymphadenopathy and supple General: Negative for tenderness Chest Wall Chest: Negative for tenderness Resp normal respiratory effort and normal air movement Effort and Inspection: symmetric chest movement; Negative for respiratory distress Cardio regular rate and regular rhythm Peripheral Pulses: pulses 2+ throughout GI normal to inspection, nondistended, normoactive bowel sounds and non-tender Palpation: Negative for guarding or rebound tenderness present Back/Spine no CVA tenderness and no thoracic nor lumbar tenderness Extremity normal to inspection General Extremety ED: Negative for edema or tenderness General Extremity: Negative for edema Neuro oriented x3 and no sensory deficits noted Sensorium / Orientation: awake and alert Skin no rashes or lesions noted and no wounds MDM MDM MDM Narrative Medical decision making narrative: Patient currently on a BiPAP, with no leg swelling. EKG notes similar changes from [address] depressions lateral leads and inferior leads. With her history of known aortic stenosis and coronary stents per family had a normal EF. On concerns for hypertensive emergency with pulmonary edema. She currently stable on BiPAP. Blood gas pH 7.36 PCO2 41 PO2 71 on oxygenation of 40%. Her settings 18/8. 1 view chest x-ray the similar from 3 days ago no reported infiltrate edema he has no cough or likely edema. She is ordered for 40 of IV Lasix. She had normal creatinine 3 days ago. Lab for this time. Less likely differential of ACS however status post stenting. With her known to [facility] being discharged I spoke with transfer line and Dr. Schrader with cardiology who knows her well. She is excepted back to their facility. Without intervention blood pressure improving on the BiPAP. 2310: Multiple reevaluations remained stable on the BiPAP. Currently systolic blood pressure 101 without any intervention. Her lab labs hemolyzed potassium 5.5 creatinine normal all 0.76. Hemoglobin 12.5. Troponin returned at 200. She is currently symptom-free likely hypertensive emergency causing symptoms. She had a recent NSTEMI with 3 stents. Less likely coronary disease related. Known severe aortic stenosis with plan TVAR at [facility]. At this time we will try to wean off the BiPAP with improving blood pressure and respiratory symptoms. Patient able to be weaned down to nasal cannula no respiratory distress. Blood sugar improving. Repeat troponin did go up to 298. There is no chest pains actively. Likely from hypertensive emergency. Patient should answer to [facility] by EMS. Lab Data Labs: Laboratory Results - last 24 hr 04/19/22 04/19/22 04/19/22 22:10 22:10 22:10 WBC Cancelled Corrected WBC Cancelled RBC Cancelled Hgb Cancelled Hct Cancelled MCV Cancelled MCH Cancelled MCHC Cancelled RDW Std Deviation Cancelled RDW Coeff of Jennifer Cancelled Plt Count Cancelled MPV Cancelled Immature Gran % (Auto) Cancelled Neut % (Auto) Cancelled Lymph % (Auto) Cancelled [place] % (Auto) Cancelled Eos % (Auto) Cancelled Baso % (Auto) Cancelled Absolute Neuts (auto) Cancelled Absolute Lymphs (auto) Cancelled Total Counted Cancelled Neutrophils % (Manual) Cancelled Band Neutrophils % Cancelled Lymphocytes % (Manual) Cancelled Monocytes % (Manual) Cancelled Eosinophils % (Manual) Cancelled Basophils % (Manual) Cancelled Metamyelocytes % Cancelled Myelocytes % Cancelled Promyelocytes % Cancelled Blast Cells % Cancelled Plasma Cell % (Manual) Cancelled Other Cells % Cancelled Nucleated RBC % Cancelled Nucleated RBCs/100 WBC Cancelled Differential Comment Cancelled Diff Path Review Cancelled Hypersegmented Neuts Cancelled Atypical Lymphocytes Cancelled Reactive Lymphocytes Cancelled Smudge Cells Cancelled Toxic Granulation Cancelled Toxic Vacuolation Cancelled Dohle Bodies Cancelled Alex Rods Cancelled Platelet Estimate Cancelled Plt Morphology Comment Cancelled RBC Morphology Cancelled Polychromasia Cancelled Hypochromasia Cancelled Poikilocytosis Cancelled Basophilic Stippling Cancelled Anisocytosis Cancelled Microcytosis Cancelled Macrocytosis Cancelled Spherocytes Cancelled Sickle Cells Cancelled Target Cells Cancelled Tear Drop Cells Cancelled Ovalocytes Cancelled Stomatocytes Cancelled [place] Bodies Cancelled Marie Cells Cancelled Bite Cells Cancelled Crenated Cell Cancelled Acanthocytes (Spur) Cancelled Rouleaux Cancelled Schistocytes Cancelled PT Cancelled INR Cancelled APTT Cancelled Sodium 134 L Potassium 5.5 H Chloride 103 Carbon Dioxide 25.0 Anion Gap 6 BUN 16 Creatinine 0.76 Estim Creat Clear Calc 41.23 Est GFR (MDRD) Af Amer 93 Est GFR (MDRD) Non-Af 77 BUN/Creatinine Ratio 21.2 H Glucose 321 H Calcium 9.0 Troponin I High Sens 200 H* B-Natriuretic Peptide 04/19/22 04/19/22 04/19/22 22:10 22:58 22:58 WBC 6.8 Corrected WBC RBC 4.32 Hgb 12.5 Hct 37.9 MCV 87.7 MCH 28.9 MCHC 33.0 RDW Std Deviation 42.7 RDW Coeff of Jennifer 13.2 Plt Count 203 MPV 9.9 Immature Gran % (Auto) 0.300 Neut % (Auto) 78.6 H Lymph % (Auto) 10.6 L [place] % (Auto) 7.7 Eos % (Auto) 2.4 Baso % (Auto) 0.4 Absolute Neuts (auto) 5.3 Absolute Lymphs (auto) 0.72 L Total Counted Neutrophils % (Manual) Band Neutrophils % Lymphocytes % (Manual) Monocytes % (Manual) Eosinophils % (Manual) Basophils % (Manual) Metamyelocytes % Myelocytes % Promyelocytes % Blast Cells % Plasma Cell % (Manual) Other Cells % Nucleated RBC % 0 Nucleated RBCs/100 WBC Differential Comment Diff Path Review Hypersegmented Neuts Atypical Lymphocytes Reactive Lymphocytes Smudge Cells Toxic Granulation Toxic Vacuolation Dohle Bodies Alex Rods Platelet Estimate Plt Morphology Comment RBC Morphology Polychromasia Hypochromasia Poikilocytosis Basophilic Stippling Anisocytosis Microcytosis Macrocytosis Spherocytes Sickle Cells Target Cells Tear Drop Cells Ovalocytes Stomatocytes [place] Bodies [place] Cells Bite Cells Crenated Cell Acanthocytes (Spur) Rouleaux Schistocytes PT 13.2 INR 1.0 APTT 28.9 Sodium Potassium Chloride Carbon Dioxide Anion Gap BUN Creatinine Estim Creat Clear Calc Est GFR (MDRD) Af Amer Est GFR (MDRD) Non-Af BUN/Creatinine Ratio Glucose Calcium Troponin I High Sens B-Natriuretic Peptide Cancelled 04/19/22 04/20/22 22:58 00:21 WBC Corrected WBC RBC Hgb Hct MCV MCH MCHC RDW Std Deviation RDW Coeff of Jennifer Plt Count MPV Immature Gran % (Auto) Neut % (Auto) Lymph % (Auto) [place] % (Auto) Eos % (Auto) Baso % (Auto) Absolute Neuts (auto) Absolute Lymphs (auto) Total Counted Neutrophils % (Manual) Band Neutrophils % Lymphocytes % (Manual) Monocytes % (Manual) Eosinophils % (Manual) Basophils % (Manual) Metamyelocytes % Myelocytes % Promyelocytes % Blast Cells % Plasma Cell % (Manual) Other Cells % Nucleated RBC % Nucleated RBCs/100 WBC Differential Comment Diff Path Review Hypersegmented Neuts Atypical Lymphocytes Reactive Lymphocytes Smudge Cells Toxic Granulation Toxic Vacuolation Dohle Bodies Alex Rods Platelet Estimate Plt Morphology Comment RBC Morphology Polychromasia Hypochromasia Poikilocytosis Basophilic Stippling Anisocytosis Microcytosis Macrocytosis Spherocytes Sickle Cells Target Cells Tear Drop Cells Ovalocytes Stomatocytes [place] Bodies [place] Cells Bite Cells Crenated Cell Acanthocytes (Spur) Rouleaux Schistocytes PT INR APTT Sodium Potassium Chloride Carbon Dioxide Anion Gap BUN Creatinine Estim Creat Clear Calc Est GFR (MDRD) Af Amer Est GFR (MDRD) Non-Af BUN/Creatinine Ratio Glucose Calcium Troponin I High Sens 298 H* B-Natriuretic Peptide 351.1 H ABG Data ABG results: ABG 04/19/22 22:27 Specimen Type ART Sample Site R Radial pH 7.36 Bicarbonate Actual 23.3 Total CO2 25 Base Excess -2 O2 Saturation 93 L O2 % 40 ABG pCO2 41.2 ABG pO2 71 L David Test Positive Respiration Rate 12 O2 Delivery Device BiPAP Clinical Comments 18. 8. Radiography Diagnostic Testing: Clinical Impression(s) from Imaging Studies Chest X-Ray 04/19/22 22:10 IMPRESSION: Similar appearance of bilateral pulmonary infiltrates and pleural effusions. Electronically Signed: Narendra Arrington MD at 22:26 EST , EKG Initial EKG: Attestation: I personally reviewed and interpreted this EKG as follows: Comments: Sinus rhythm 100, ST depressions inferior lateral leads which no elevations, similar findings from 3 days ago. Critical Care Time Critical Care Time: Yes Critical care time (excluding procedures): 30-74 minutes, Discussing w/Patient &/or Family/Bi Specialist, Discussing w/Consultants, Arranging Admission or Transfer and Performing Direct Patient Care at Bedside Discharge Plan Triage Chief Complaint: Shortness of Breath ED Provider: Reno Lindsey Dx/Rx/DC Orders Clinical Impression: Hypertensive emergency, Elevated troponin, Pulmonary edema, CAD (coronary artery disease), Acute respiratory failure with hypoxia Prescriptions: No Action vitamin B complex Capsule 1 cap PO DAILY [facility] 250-2.5-0.5 mg capsule 1 cap PO BID carvedilol 12.5 mg tablet 25 mg PO BID Rx Instructions: must administer with a meal/food nitroglycerin 0.4 MG tablet 0.4 mg SUBLINGUAL Q5M PRN (Reason: Chest Pain) Qty: 20 1RF aspirin 81 MG tablet 81 mg PO DAILY Label Comments: STATES WAS NOT TOLD TO STOP FOR SURGERY metformin 500 mg tablet 500 mg PO BID sertraline 25 mg tablet 25 mg PO QHS Label Comments: TAKE 1 TABLET BY MOUTH ONCE DAILY multivitamin with minerals Tablet 1 tab PO DAILY clopidogrel 75 mg tablet 75 mg PO DAILY ezetimibe 10 mg tablet 10 mg PO DAILY Primary Care Provider: Murphy Burton Referrals: Murphy Burton DO [Primary Care Provider] - Disposition Disposition: DC/Tx to Another Type of HCF Discharge Location: [facility] Discharge Date/Time: 04/20/22 01:14
[2022-04-19 22:36] LABS: Allen Test Positive; Base Excess -2 mmol/L (-2 to +2); Bicarbonate 23.3 mmol/L (22-26); Blood Gas Specimen Type ART; FI02 40; O2 Delivery Device BiPAP; PO2 71 mmHG (75-100); RR 12; SITE R Radial; SO2 93 % (95-99); Total Carbon Dioxide 25 mmol/L; pCO2 41.2 mmHg (35-45); pH 7.36 (7.35-7.45)
[2022-04-19] MEDS: Furosemide 40 MG/4 ML Vial IV (22:36)
[2022-04-19 22:56] LABS: Anion Gap 6 (5-15); BUN 16 mg/dL (7-18); BUN/Creat Ratio 21.2 RATIO (10-20); Chloride 103 mmol/L (98-107); Creatinine, Serum 0.76 mg/dL (0.55-1.02); EST Glomerular Filtration Rate 77 mL/min (>60); Est Glom Filt Rate - Afr Amer 93 mL/min (>60); Estimated Creatinine Clearance 41.23 ml/min; Glucose 321 mg/dL (74-106); Potassium 5.5 mmol/L (3.5-5.1); Sodium Level 134 mmol/L (136-145); Troponin-I HS (w/2H Reflex) 200 pg/mL (3.0-54.0)
[2022-04-19 23:05] LABS: Absolute Lymphocyte Count 0.72 X10^3/uL (0.83-4.51); Absolute Neutrophil Count 5.3 X10^3/uL (2.0-7.7); Basophil# 0.03 X10^3/uL; Basophil% 0.4 % (0-1); Eosinophil# 0.16 X10^3/uL; Eosinophils% 2.4 % (0-5); Hematocrit 37.9 % (37-47); Hemoglobin 12.5 g/dL (12.0-15.0); Lymphocyte # 0.72 X10^3/ul (0.83-4.51); Lymphocyte % 10.6 % (19-41); Mean Corpuscular Hgb 28.9 pg (27.0-32.0); Mean Corpuscular Volume 87.7 fL (81-99); Mean Platelet Vol. 9.9 fl (6.2-12.0); Monocyte# 0.52 X10^3/uL; Monocyte% 7.7 % (0-10); NRBC Flagged by Analyzer 0 % (0-5); Neutrophil # 5.34 X10^3/uL (2.7-7.7); Neutrophil % 78.6 % (47-70); Platelet Count 203 K/mm3 (150-450); RBC Distribution Width CV 13.2 % (11.6-14.6); RBC Distribution Width SD 42.7 fl (35.1-43.9); Red Blood Count 4.32 M/mm3 (4.2-5.4); White Blood Count 6.8 K/mm3 (4.4-11.0)
[2022-04-19 23:16] LABS: Prothrombin Time (Protime)PT. 13.2 SECONDS (11.7-14.9)
[2022-04-19 23:17] LABS: Partial Thromboplast Time 28.9 Seconds (24.1-36.2)
[2022-04-19 23:24] LABS: BNP,B-Type NATRIURETIC PEPTIDE 351.1 pg/mL (0-100)
[2022-04-20] VITALS: BP 128/48; PULSE 66; RESP 18; O2SAT 96
[2022-04-20 00:12] LABS: Reflex Troponin-HS? (from REC) Y
[2022-04-20 00:53] LABS: Troponin-I HS 298 pg/mL (3.0-54.0)
[2022-04-20 01:07] VITALS: BP 153/53; PULSE 66; RESP 17; O2SAT 99
== END 2022-04-20 01:14 | disposition other institution (70) ==
PROVIDERS: Emergency Provider Emergency Medicine; PCP Family Medicine; Visit Provider Emergency Medicine
DX: J96.01 Acute respiratory failure with hypoxia (principal); E11.9 Type 2 diabetes mellitus without complications; I16.1 Hypertensive emergency; I10 Essential (primary) hypertension; E78.5 Hyperlipidemia, unspecified; J81.1 Chronic pulmonary edema; I25.10 Atherosclerotic heart disease of native coronary artery without angina pectoris; R07.9 Chest pain, unspecified; R77.8 Other specified abnormalities of plasma proteins
CPT/HCPCS: 36600; 71045; 80048; 82803; 83880; 84484; 85025; 85610; 85730; 87811; 93005; 94002; 96374; 99285; A4216; J1940

== ENCOUNTER 2024-03-21 20:07 | Inpatient (IN) | payer OTHER, SELFPAY ==
[2020-12-17 08:26] VITALS: BMI 23.1
[2024-03-21] VITALS (11 sets, daily range): BP systolic 142–215; BP diastolic 59–109; PULSE 96–107; RESP 20–28; TEMP 36.8–37; O2SAT 91–99; BMI 30.1; BMI 28.6
--- NOTE | 2024-03-21 20:26 | EKG12_ITS ---
Test Reason : DYSRHYTHMIA Blood Pressure : */* mmHG Vent. Rate : 102 BPM Atrial Rate : 102 BPM P-R Int : 158 ms QRS Dur : 148 ms QT Int : 416 ms P-R-T Axes : 59 -45 120 degrees QTcB Int : 542 ms Sinus tachycardia Left axis deviation Left bundle branch block Abnormal ECG Confirmed by ALISSA MELENDEZ, URBANO ([id number]), film and video editor ERNESTINA GARCIA ([id number]) on 03/24/2024 2:23:51 PM Referred By: Confirmed By: URBANO MAXWELL MD
--- NOTE | 2024-03-21 20:36 | ED.VIS.DYS ---
HPI History of Present Illness Chief Complaint: Shortness of Breath Narrative Narrative: Chief complaint and HPI: Shortness of breath. 89-year-old female with multiple comorbidities including DM, CAD status post PCI, TIA, HLD, PAD presents for evaluation of shortness of breath. Patient states for the past several days she has had URI type symptoms including a cough. She states her symptoms were improving today but later worsened this evening with increased shortness of breath. On EMS arrival, patient was was found to be hypoxic at 71% on room air. She was placed on a 15 L nonrebreather and given a DuoNeb prior to arrival. She denies any fever, chills, chest pain, abdominal pain, nausea, vomiting, dysuria. Review of systems: See HPI Medications: As listed on the chart Allergies: As listed on the chart PFSH: Per chart Vital signs: As listed on the chart. Reviewed. Physical exam: Gen: A&O x3 Head: Normocephalic, atraumatic Eyes: No sclera icterus, conjunctiva clear ENT: Moist mucous membranes Neck: Trachea midline, No JVD CV: Tachycardic, regular rhythm, no peripheral edema Resp: Lungs diminished bilaterally and coarse, tight with poor airflow, on 15 L nonrebreather GI: Abd soft, non-distended, non-tender, no r/r/g Musc: Full ROM, no deformity Skin: Warm, dry Neuro: Alert, oriented, grossly intact, sensation intact Psych: Cooperative, appropriate mood and affect [facility] Medical History Moderate to severe aortic stenosis Depression Diabetes Osteoporosis Non-smoker Coronary artery disease Hypertension TIA (transient ischemic attack) Nonrheumatic aortic (valve) stenosis Essential hypertension Presence of stent in coronary artery (~04/04/22) Carotid stenosis, left Occlusion and stenosis of left carotid artery Nonrheumatic mitral (valve) insufficiency Aortic valve disorders Atherosclerotic heart disease of [place] coronary artery without angina pectoris HLD (hyperlipidemia) Occlusion and stenosis of right carotid artery PAD (peripheral artery disease) Home Medications ?Medication ?Instructions ?Recorded ?Last Taken ?Type nitroglycerin 0.4 mg sublingual 0.4 mg sublingual Q5M PRN Chest 07/11/16 03/19/22 Rx tablet Pain #20 tabs aspirin 81 mg tablet,delayed 81 mg PO DAILY HEART HEALTH 04/28/18 03/20/22 History release metformin 500 mg tablet 500 mg PO BID blood sugar 01/28/21 03/20/22 History omega-3 250 zl-cvw-vyz-lutein 2.5 1 cap PO BID EYE HEALTH 01/28/21 03/20/22 History mg-zeaxanthin 0.5 mg capsule ([facility]) vitamin B complex 1 cap PO DAILY SUPPLEMENT 01/28/21 03/20/22 History ezetimibe 10 mg tablet 10 mg PO DAILY CHOLESTEROL 03/20/22 03/20/22 History multivitamin with minerals 1 tab PO DAILY SUPPLEMENT 03/20/22 03/20/22 History hydralazine 10 mg tablet 10 mg PO TID PRN hypertension 05/15/22 Unknown History melatonin 1 mg tablet 1 mg PO HS PRN sleep 05/15/22 Unknown History sertraline 50 mg tablet 50 mg PO DAILY 05/15/22 Unknown History lisinopril 10 mg tablet 10 mg PO QHS #90 tabs 02/16/24 Unknown Rx carvedilol 12.5 mg tablet 25 mg PO BID 03/21/24 Unknown History furosemide 20 mg tablet 20 mg PO DAILY 03/21/24 Unknown History Allergy/AdvReac Type Severity Reaction Status Date / Time rosuvastatin AdvReac Severe Myalgias Verified 03/21/24 20:14 simvastatin AdvReac Severe myalgias Verified 03/21/24 20:14 Family History Father CAD (coronary artery disease) Hypertension Myocardial infarction, Onset Age: 80 Sister CVA (cerebral vascular accident), Onset Age: 66 Diabetes Arthritis Mother Cancer Thyroid Surgical History History of transcatheter aortic valve replacement (TAVR) (~04/25/22) History of right and left heart catheterization (LHC) (~03/21/22) Presence of coronary angioplasty implant and graft (~07/10/16) History of left-sided carotid endarterectomy (05/05/17) History of hysterectomy History of CEA (carotid endarterectomy) (~2010) Social History Smoking Status: Never smoker second hand exposure: No alcohol intake: never substance use type: does not use caffeine: No EXAM Physical Exam Const Vital Signs: 03/21/24 20:15 03/21/24 20:19 03/21/24 20:22 Temperature 98.2 F 98.2 F Temperature Source Oral Oral Pulse Rate 105 H 107 H Respiratory Rate 22 H 25 H Respiratory Effort Short of Breath Respiratory Depth Deep Respiratory Pattern Tachypnea Blood Pressure 215/109 H 215/109 H Blood Pressure Mean 144 144 Pulse Ox 98 95 Oxygen Delivery Method Non-Rebreather Non-Rebreather Non-Rebreather Oxygen Flow Rate (L/min) 15 15 10 03/21/24 20:48 03/21/24 20:49 03/21/24 20:55 Temperature Temperature Source Pulse Rate 96 98 Respiratory Rate 24 H 28 H Respiratory Effort Respiratory Depth Respiratory Pattern Tachypnea Blood Pressure 151/59 H Blood Pressure Mean 89 Pulse Ox 94 95 Oxygen Delivery Method Nasal Cannula Nasal Cannula Oxygen Flow Rate (L/min) 5 6 03/21/24 21:19 03/21/24 22:00 03/21/24 22:38 Temperature 98.3 F 98.3 F 98.6 F Temperature Source Oral Oral Pulse Rate 103 H 99 104 H Respiratory Rate 22 H 22 H 20 H Respiratory Effort Respiratory Depth Respiratory Pattern Blood Pressure 145/62 H 142/64 H 149/72 H Blood Pressure Mean 89 90 97 Pulse Ox 97 94 96 Oxygen Delivery Method Nasal Cannula Nasal Cannula Oxygen Flow Rate (L/min) 5 5 MDM MDM MDM Narrative Medical decision making narrative: 89-year-old female with multiple comorbidities including DM, CAD status post PCI, TIA, HLD, PAD presents for evaluation of shortness of breath. Associated symptom is cough and URI type symptoms. Differential diagnosis includes but is not limited to viral illness, COVID-19 infection, influenza, pneumonia, CHF exacerbation, suspect less likely ACS. Patient arrived on 15 L nonrebreather and is hypertensive with SBP in the 200s. Patient states she did not take her medication today. 500 cc NS bolus, hydralazine IV, and DuoNeb x 3 ordered. Patient was able to be weaned down to 5 L nasal cannula. Respiratory workup ordered. CBC without leukocytosis or anemia. VBG without hypercapnia. BMP relatively unremarkable except for hyperglycemia. Lactic acid unremarkable. Troponin within normal limits and downtrending from previous. BNP mildly elevated at 253 however is lower than previous. COVID, flu, RSV negative. Chest x-ray concerning for pneumonia as well as mild pulmonary edema. Given patient's acute hypoxic respiratory failure with cough and URI type symptoms we will treat for community-acquired pneumonia with Rocephin and azithromycin. Patient will warrant admission to the hospital. Patient confirmed understanding of the plan. Patient was discussed with the hospitalist service who accepted admission. EKG: Interpreted by me/EM physician: EKG shows sinus tachycardia with left bundle branch block. Heart rate 102. Also EKG showed sinus rhythm with left bundle branch block. Heart rate of 100. Diagnostic: Interpreted by me/EM physician: Bilateral infiltrates concerning for pneumonia as well as possible mild pulmonary edema. No pneumothorax, cardiomegaly. Impression: 1. Acute hypoxic respiratory failure requiring nasal cannula 2. Community-acquired pneumonia 3. Mild CHF exacerbation 4. Hyperglycemia in known diabetic 5. Hypertension urgency with history of hypertension Lab Data Labs: Laboratory Results - last 24 hr 03/21/24 03/21/24 20:20 20:35 WBC 9.3 RBC 4.85 Hgb 13.9 Hct 42.1 MCV 86.8 MCH 28.7 MCHC 33.0 RDW Std Deviation 39.7 RDW Coeff of Jennifer 12.6 Plt Count 232 MPV 10.4 Immature Gran % (Auto) 0.400 Neut % (Auto) 62.9 Lymph % (Auto) 20.4 Mcdonald % (Auto) 9.2 Eos % (Auto) 6.1 H Baso % (Auto) 1.0 Absolute Neuts (auto) 5.9 Absolute Lymphs (auto) 1.91 Nucleated RBC % 0 Sodium 137 Potassium 3.7 Chloride 103 Carbon Dioxide 28.0 Anion Gap 6 BUN 18 Creatinine 0.79 Estim Creat Clear Calc 40.89 Est GFR (MDRD) Af Amer 88 Est GFR (MDRD) Non-Af 73 BUN/Creatinine Ratio 22.7 H Glucose 302 H Lactic Acid 1.7 Calcium 9.4 Troponin I High Sens 50 B-Natriuretic Peptide 253.0 H ABG Data ABG results: ABG 03/21/24 21:35 Specimen Type RUPERT Sample Site Not entered O2 % 5.0 VBG pH 7.38 VBG pO2 36 VBG HCO3 27 H VBG Total CO2 28 VBG O2 Sat (Calc) 68 VBG Base Excess 2 POC Mix VBG pCO2 Pt Tmp 45.3 O2 Delivery Device Not entered Radiography Diagnostic Testing: Clinical Impression(s) from Imaging Studies Chest X-Ray 03/21/24 21:20 IMPRESSION: Bilateral patchy opacities may represent edema and/or infection. Questionable trace bilateral pleural effusions. Electronically Signed: Eulogio Demarco MD at 21:56 EST , Discharge Plan Triage Chief Complaint: Shortness of Breath ED Provider: Matthew Enrique Dx/Rx/DC Orders Primary Care Provider: Murphy Burton
[2024-03-21] MEDS: hydrALAZINE 20 MG/ML Vial IV (20:38)
[2024-03-21] MEDS: 0.9% Normal Saline (500mL Bag) 500 ML 999 ML IV (20:38)
[2024-03-21 20:44] LABS: Absolute Lymphocyte Count 1.91 X10^3/uL (0.83-4.51); Absolute Neutrophil Count 5.9 X10^3/uL (2.0-7.7); Basophil# 0.09 X10^3/uL; Eosinophil# 0.57 X10^3/uL; Eosinophils% 6.1 % (0-5); Hematocrit 42.1 % (37-47); Hemoglobin 13.9 g/dL (12.0-15.0); Lymphocyte # 1.91 X10^3/ul (0.83-4.51); Lymphocyte % 20.4 % (19-41); Mean Corpuscular Hgb 28.7 pg (27.0-32.0); Mean Corpuscular Volume 86.8 fL (81-99); Mean Platelet Vol. 10.4 fl (6.2-12.0); Monocyte# 0.86 X10^3/uL; Monocyte% 9.2 % (0-10); NRBC Flagged by Analyzer 0 % (0-5); Neutrophil # 5.87 X10^3/uL (2.7-7.7); Neutrophil % 62.9 % (47-70); Platelet Count 232 K/mm3 (150-450); RBC Distribution Width CV 12.6 % (11.6-14.6); RBC Distribution Width SD 39.7 fl (35.1-43.9); Red Blood Count 4.85 M/mm3 (4.2-5.4); White Blood Count 9.3 K/mm3 (4.4-11.0)
[2024-03-21] MEDS: Ipratropium/Albuterol Sulfate 3 ML AMPUL.NEB 9 ML INHALATION (20:49)
[2024-03-21 21:06] LABS: Anion Gap 6 (5-15); BUN 18 mg/dL (7-18); BUN/Creat Ratio 22.7 RATIO (10-20); Calcium,Total 9.4 mg/dL (8.5-10.1); Chloride 103 mmol/L (98-107); Creatinine, Serum 0.79 mg/dL (0.55-1.02); EST Glomerular Filtration Rate 73 mL/min (>60); Est Glom Filt Rate - Afr Amer 88 mL/min (>60); Estimated Creatinine Clearance 40.89 ml/min; Glucose 302 mg/dL (74-106); Potassium 3.7 mmol/L (3.5-5.1); Sodium Level 137 mmol/L (136-145); Troponin-I HS 50 pg/mL (3.0-54.0)
[2024-03-21 21:06] LABS: Lactic Acid 1.7 mmol/L (0.4-1.9)
--- NOTE | 2024-03-21 21:20 | RAD_ITS ---
INDICATION: Shortness of breath EXAMINATION/TECHNIQUE: X-RAY - XR Chest 2 Views COMPARISON: 04/19/2022. FINDINGS: Bilateral patchy opacities. Tortuous and calcified thoracic aorta. The heart is mildly enlarged. Questionable trace bilateral pleural effusions. No pneumothorax. Degenerative changes of the thoracic spine. RAD/Chest PA and Lateral IMPRESSION: Bilateral patchy opacities may represent edema and/or infection. Questionable trace bilateral pleural effusions. Electronically Signed: Eulogio Demarco MD at 21:56 EST ,
[2024-03-21 21:39] LABS: Blood Gas Specimen Type VEN; O2 Delivery Device Not entered; SITE Not entered; VBG BASE EXCESS 2 mmol/L (-1.0-3.5); VBG Bicarbonate 27 mmol/L (22-26); VBG PO2 36 mmHg (25-40); VBG SO2 68 % (50-70); VBG TCO2 28 mmol/L (23-33); VBG pCO2 45.3 mmHg (41-51); VBG pH 7.38 (7.32-7.42)
--- NOTE | 2024-03-21 21:50 | EKG12_ITS ---
Test Reason : DYSRHYTHMIA Blood Pressure : */* mmHG Vent. Rate : 100 BPM Atrial Rate : 100 BPM P-R Int : 154 ms QRS Dur : 150 ms QT Int : 420 ms P-R-T Axes : 67 -44 122 degrees QTcB Int : 541 ms Normal sinus rhythm Left axis deviation Left bundle branch block Abnormal ECG Confirmed by ALISSA MELENDEZ, URBANO ([id number]), metropolitan editor ERNESTINA GARCIA ([id number]) on 03/24/2024 2:24:01 PM Referred By: Confirmed By: URBANO MAXWELL MD
--- NOTE | 2024-03-21 22:36 | HP.PCM.HOS_ITS ---
[facility] - General General Date of Admission: 03/21/24 Date of Service: 03/21/24 Chief Complaint: SOB and Cough. HPI Narrative SOPHIA PRATHER, is a 89 F with a past medical history of essential hypertension; on furosemide, carvedilol, lisinopril and hydralazine, hyperlipidemia; on ezetmibe, obesity; with BMI of 30.1 this admission, DM-2; of unknown control on metformin, CAD; s/p stents (2016) and (2022) on BASA and prn SL NTG, history of nonrheumatic [id number] stenosis of aortic valve; s/p TAVR (2022), history of bilateral carotid stenosis; s/p Right CEA (~2010) and Left CEA (2017), history of TIA, history of PAD, history of depression; on sertraline, osteoporosis and OA who presents to [facility] ER complaining of SOB and cough. Ms. Prather reports her symptoms began approximately four to five days prior to admission with an URI that included an increasingly productive cough with greenish sputum. Though she transiently improved, earlier this evening acutely worsened with SOB at rest with her daughter present at the bedside statin she has had great difficulty controllin her elevated blood pressure near ~200 mmHg systolic in spite of giving her medications as prescribed. She then activated EMS who noted her to be hypoxic at 71% on RA and she was then immediately placed on 15L NRB followed by a duoneb prior to arrival that modestly improved her symptoms. She denies associated fever, chills, nausea, vomiting, diarrhea, constipation, chest pain or dysuria. In the ER she was noted to have CXR evidence of bilateral infiltrates consistent with what the ER physician suspected was Pneumonia complicated by an elevated BNP of 253 pg/mL present on admission consistent with suspected superimposed AE CHF of uncertain type causing clinical evidence of Acute Respiratory Insufficiency and she was then admitted to the PCU for ongoing care for a stay that was expected to extend beyond 2 midnights. [facility] Medical History Moderate to severe aortic stenosis Depression Diabetes Osteoporosis Non-smoker Coronary artery disease Hypertension TIA (transient ischemic attack) Nonrheumatic aortic (valve) stenosis Essential hypertension Presence of stent in coronary artery (~04/04/22) Carotid stenosis, left Occlusion and stenosis of left carotid artery Nonrheumatic mitral (valve) insufficiency Aortic valve disorders Atherosclerotic heart disease of [place] coronary artery without angina pectoris HLD (hyperlipidemia) Occlusion and stenosis of right carotid artery PAD (peripheral artery disease) Home Medications ?Medication ?Instructions ?Recorded ?Last Taken ?Type nitroglycerin 0.4 mg sublingual 0.4 mg sublingual Q5M PRN Chest 07/11/16 03/19/22 Rx tablet Pain #20 tabs aspirin 81 mg tablet,delayed 81 mg PO DAILY HEART HEALTH 04/28/18 03/20/22 History release metformin 500 mg tablet 500 mg PO BID blood sugar 01/28/21 03/20/22 History omega-3 250 da-yma-pqc-lutein 2.5 1 cap PO BID EYE HEALTH 01/28/21 03/20/22 History mg-zeaxanthin 0.5 mg capsule ([facility]) vitamin B complex 1 cap PO DAILY SUPPLEMENT 01/28/21 03/20/22 History ezetimibe 10 mg tablet 10 mg PO DAILY CHOLESTEROL 03/20/22 03/20/22 History multivitamin with minerals 1 tab PO DAILY SUPPLEMENT 03/20/22 03/20/22 History hydralazine 10 mg tablet 10 mg PO TID PRN hypertension 05/15/22 Unknown History melatonin 1 mg tablet 1 mg PO HS PRN sleep 05/15/22 Unknown History sertraline 50 mg tablet 50 mg PO DAILY 05/15/22 Unknown History lisinopril 10 mg tablet 10 mg PO QHS #90 tabs 02/16/24 Unknown Rx carvedilol 12.5 mg tablet 25 mg PO BID 03/21/24 Unknown History furosemide 20 mg tablet 20 mg PO DAILY 03/21/24 Unknown History Allergy/AdvReac Type Severity Reaction Status Date / Time rosuvastatin AdvReac Severe Myalgias Verified 03/21/24 20:14 simvastatin AdvReac Severe myalgias Verified 03/21/24 20:14 Family History Father CAD (coronary artery disease) Hypertension Myocardial infarction, Onset Age: 80 Sister CVA (cerebral vascular accident), Onset Age: 66 Diabetes Arthritis Mother Cancer Thyroid Surgical History History of transcatheter aortic valve replacement (TAVR) (~04/25/22) History of right and left heart catheterization (LHC) (~03/21/22) Presence of coronary angioplasty implant and graft (~07/10/16) History of left-sided carotid endarterectomy (05/05/17) History of hysterectomy History of CEA (carotid endarterectomy) (~2010) Social History Smoking Status: Never smoker second hand exposure: No alcohol intake: never substance use type: does not use caffeine: No ROS ROS Narrative Review of Systems: Constitutional: Patient denies fever or chills. Eyes: Patient denies changes in vision or discharge from eyes. ENT: Patient admits to URI with runny nose and congestion but she denies sore throat or ear pain. Resp: Patient admits to cough and SOB. CV: Patient denies chest pain or palpitations. GI: Patient denies abdominal pain, nausea or vomiting. : Patient denies dysuria or hematuria. MSK: Patient denies arthralgias or myalgias. Skin: Patient denies rash, abscess or jaundice. Psych: Patient denies symptoms of uncontrolled depression or anxiety. Neuro: Patient denies headache, paresthesias or focal neurologic deficits. Allergy: Patient denies lip swelling, tongue swelling or urticaria. Hematology: Patient denies easy bleeding or easy bruisability. Endocrinology: Patient denies polyuria, polydipsia or polyphagia. 14 point ROS otherwise negative except for positives noted above in HPI. Vital Signs Vital Signs Vital Signs: 03/21/24 20:15 03/21/24 20:19 03/21/24 20:22 Temperature 98.2 F 98.2 F Temperature Source Oral Oral Pulse Rate 105 H 107 H Respiratory Rate 22 H 25 H Respiratory Effort Short of Breath Respiratory Depth Deep Respiratory Pattern Tachypnea Blood Pressure 215/109 H 215/109 H Blood Pressure Mean 144 144 Pulse Ox 98 95 Oxygen Delivery Method Non-Rebreather Non-Rebreather Non-Rebreather Oxygen Flow Rate (L/min) 15 15 10 03/21/24 20:48 03/21/24 20:49 03/21/24 20:55 Temperature Temperature Source Pulse Rate 96 98 Respiratory Rate 24 H 28 H Respiratory Effort Respiratory Depth Respiratory Pattern Tachypnea Blood Pressure 151/59 H Blood Pressure Mean 89 Pulse Ox 94 95 Oxygen Delivery Method Nasal Cannula Nasal Cannula Oxygen Flow Rate (L/min) 5 6 03/21/24 21:19 03/21/24 22:00 Temperature 98.3 F 98.3 F Temperature Source Oral Oral Pulse Rate 103 H 99 Respiratory Rate 22 H 22 H Respiratory Effort Respiratory Depth Respiratory Pattern Blood Pressure 145/62 H 142/64 H Blood Pressure Mean 89 90 Pulse Ox 97 94 Oxygen Delivery Method Nasal Cannula Nasal Cannula Oxygen Flow Rate (L/min) 5 5 Weight Weight: 149 lb Body Mass Index (BMI) 30.1 Physical Exam Const alert, oriented x3, no apparent distress and average body habitus General Appearance: cooperative HEENT normocephalic, head/scalp atraumatic, hearing grossly normal bilaterally and moist oral mucous membranes Eyes PERRL and EOMs intact bilaterally Neck no lymphadenopathy and supple Resp Resp Narrative: Diminished throughout with coarse rhonci. Auscultation: rhonchi Cardio regular rate and regular rhythm Cardio Narrative: Mild tachycardia noted @ ~105 bpm. GI normal to inspection, nondistended, normoactive bowel sounds, soft to palpation, non-tender and non-distended Extremity normal to inspection and full ROM Skin Skin Narrative: Patient has no evidence of rash, abscess or jaundice. Neuro oriented x3, CN's II-XII intact bilaterally, moves all extremities and no focal motor deficits Sensorium / Orientation: awake, alert, oriented to person, oriented to place and oriented to time Speech: speech normal Psych affect normal Results Medical Records Data Attestation: I reviewed the patient's medical records Lab / Micro Data Attestation: I reviewed the patient's lab results. 03/21/24 20:20 03/21/24 20:20 Labs: Laboratory Results - last 24 hr 03/21/24 20:20: WBC 9.3, RBC 4.85, Hgb 13.9, Hct 42.1, MCV 86.8, MCH 28.7, MCHC 33.0, RDW Std Deviation 39.7, RDW Coeff of Jennifer 12.6, Plt Count 232, MPV 10.4, Immature Gran % (Auto) 0.400, Neut % (Auto) 62.9, Lymph % (Auto) 20.4, [place] % (Auto) 9.2, Eos % (Auto) 6.1 H, Baso % (Auto) 1.0, Absolute Neuts (auto) 5.9, Absolute Lymphs (auto) 1.91, Nucleated RBC % 0, Sodium 137, Potassium 3.7, Chloride 103, Carbon Dioxide 28.0, Anion Gap 6, BUN 18, Creatinine 0.79, Estim Creat Clear Calc 40.89, Est GFR (MDRD) Af Amer 88, Est GFR (MDRD) Non-Af 73, B UN/Creatinine Ratio 22.7 H, Glucose 302 H, Calcium 9.4, Troponin I High Sens 50, B-Natriuretic Peptide 253.0 H 03/21/24 20:35: Lactic Acid 1.7 Micro: Microbiology 03/21/24 20:35 Mucosa - Nose SARS-CoV-2, Influenza & RSV (PCR) - Final ABG Data ABG results: ABG 03/21/24 21:35 Specimen Type RUPERT Sample Site Not entered O2 % 5.0 VBG pH 7.38 VBG pO2 36 VBG HCO3 27 H VBG Total CO2 28 VBG O2 Sat (Calc) 68 VBG Base Excess 2 POC Mix VBG pCO2 Pt Tmp 45.3 O2 Delivery Device Not entered Imaging Radiology Impression Chest X-Ray 03/21/24 21:20 IMPRESSION: Bilateral patchy opacities may represent edema and/or infection. Questionable trace bilateral pleural effusions. Electronically Signed: Eulogio Demarco MD at 21:56 EST , Assessment & Plan Assessment/Plan (1) Pneumonia: QUALIFIERS: Laterality: bilateral Lung location: unspecified part of lung Pneumonia type: due to unspecified organism Qualified Code(s): J18.9 - Pneumonia, unspecified organism (2) CHF exacerbation: QUALIFIERS: Heart failure type: unspecified Qualified Code(s): I 50.9 - Heart failure, unspecified (3) Respiratory insufficiency: (4) History of transcatheter aortic valve replacement (TAVR): (5) Severe aortic valve stenosis: (6) History of right and left heart catheterization (LHC): (7) CAD (coronary artery disease), [place] coronary artery: QUALIFIERS: Associated angina: without angina [place] vs. transplanted heart: [place] heart Qualified Code(s): I25.10 - Atherosclerotic heart disease of [place] coronary artery without angina pectoris (8) Presence of stent in coronary artery: (9) Carotid stenosis, left: PLAN: Plan 1. CXR evidence of bilateral infiltrates consistent with what the ER physician suspected was Pneumonia - Admit to PCU. Continue IV Rocephin and IV Azithromycin and await culture and sensitivity data. Check urinary antigens for Streptococcus pneumonia and Legionella. Give Tylenol prn for [id number] (level 1-5/10) pain or fever. Give Morphine IV prn for severe (level 6-10/10) pain. 2. AE CHF with elevated BNP of 253 pg/mL present on admission complicating #1 - Give Lasix 40 mg IV BID plus supplemental KCl and magnesium. Check echocardiogram to evaluate LVEF. Patient and her daughter would like to be seen by their classroom paraprofessional from [facility] due to severe uncontrolled hypertension and CHF with consultation appreciated in advance. 3. Acute Respiratory Insufficiency arising from #1 & #2 - Wean supplemental oxygen as tolerated. 4. Poorly-controlled Hypertension in spite of already being on furosemide, carvedilol, lisinopril and hydralazine compounding #1 - #3 - Continue home regimen plus give prn IV hydralazine for systolic blood pressure > 160 mmHg. 5. History of nonrheumatic [id number] stenosis of aortic valve; s/p TAVR (2022) adding to the medical complexity of #1 - #4 - Noted with echocardiogram pending for #2. 6. CAD; s/p stents (2016) and (2022) on BASA and prn SL NTG - Noted. Continue BASA and prn SL NTG. 7. Hyperlipidemia; on ezetmibe - Resume ezetimibe and check Lipid Profile this admission. 8. Obesity; with BMI of 30.1 this admission - Weight loss will be recommended. Check TSH. This complicates her case and may hamper recovery. 9. DM-2; of unknown control on metformin - ADA diet. FSBS q. AC/HS plus SSI. Check HgbA1c to objectively assess quality of diabetic control. 10. History of bilateral carotid stenosis; s/p Right CEA (~2010) and Left CEA (2017) - Noted. 11. History of TIA - Noted. 12. History of PAD - Noted. 13. History of depression; on sertraline - Resume sertraline as previous. 14. Osteoporosis - Stable. 15. OA - Give Tylenol prn. 16. DVT prophylaxis - Lovenox 40 mg sq daily plus SCD's. Total time: Approximately 75 minutes. Charges/Coding Visit Charges Inpatient E&M: 72424 Init Hosp L3
[2024-03-21] MEDS: Ceftriaxone 2 GM in 0.9% Normal Saline (50mL MB+) 50 ML IV (22:49)
--- NOTE | 2024-03-21 23:02 | ECHOD_ITS ---
Reason For Study: Chest Pain Procedure This was a 2D Doppler, Color Flow transthoracic echocardiogram. Exam performed portable in patient room. Left Ventricle Normal LV size. Mild concentric left ventricular hypertrophy. Left ventricular systolic function is normal. The left ventricular ejection fraction is 55 %. No regional wall motion abnormalities noted. Right Ventricle Normal RV size. Normal systolic function. Atria Normal left atrium. Normal right atrium. Mitral Valve There is moderate to severe mitral annular calcification. Trivial eccentric mitral valve insufficiency. Tricuspid Valve Normal tricuspid valve. Mild to moderate (1-2+) tricuspid valve insufficiency. Pulmonary artery systolic pressure is 44 mmHg. Aortic Valve Peak aortic valve gradient 25 mmHg. Mean aortic valve gradient 16 mmHg. Bioprosthetic aortic valve. Pulmonic Valve Normal pulmonic valve. Great Vessels Calcified aortic root. The pulmonary artery is normal size. Inferior vena cava collapse with respiration. Pericardium/Pleural No pericardial effusion. MMode/2D Measurements & Calculations LVIDd: 3.9 cm IVSd: 1.2 cm LVOT diam: 1.7 cm LVIDs: 2.8 cm LVPWd: 1.2 cm LVOT area: 2.4 cm2 RVDd: 3.5 cm FS: 28.1 % asc Aorta Diam: 3.4 cm LAV(MOD-bp): 44.3 ml LVAd ap4: 18.8 cm2 LAV(MOD-bp) Indexed: 27.9 ml/m2 LVLd ap4: 6.5 cm LAV(MOD-sp2): 55.1 ml EDV(MOD-sp4): 44.0 ml LAV(MOD-sp4): 32.6 ml EDV(sp4-el): 45.8 ml LVAs ap4: 10.8 cm2 LVLs ap4: 5.3 cm ESV(MOD-sp4): 18.0 ml ESV(sp4-el): 18.9 ml EF(MOD-sp4): 59.0 % EF(sp4-el): 58.8 % SV(MOD-sp4): 25.9 ml SV(sp4-el): 27.0 ml LA A4 area: 14.8 cm2 SI(MOD-sp4): 16.3 ml/m2 LA dimension(2D): 4.0 cm RA A4 area: 12.9 cm2 TAPSE: 2.1 cm Time Measurements MV dec time: 0.32 sec Doppler Measurements & Calculations MV E max lorne: 101.6 cm/sec Lat Peak E' Lorne: 4.5 cm/sec Med Peak E' Lorne: 2.8 cm/sec MV A max lorne: 119.7 cm/sec E/E' lat: 22.4 E/E' med: 35.6 MV E/A: 0.85 MV V2 max: 131.4 cm/sec Ao V2 max: 252.5 cm/sec MV max P.9 mmHg MV dec slope: 323.1 cm/sec2 Ao max P.7 mmHg MV V2 mean: 76.3 cm/sec Ao V2 mean: 193.4 cm/sec MV mean P.8 mmHg Ao mean P.1 mmHg MV V2 VTI: 42.8 cm Ao V2 VTI: 52.0 cm AV (velocity ratio): 0.57 MVA(VTI): 1.6 cm2 LIDIA(I,D): 1.4 cm2 LIDIA(V,D): 1.2 cm2 LV V1 max: 129.7 cm/sec SV(LVOT): 70.4 ml PA V2 max: 105.1 cm/sec LV V1 max P.8 mmHg LV V1 mean P.2 mmHg LV V1 mean: 98.1 cm/sec LV V1 VTI: 29.4 cm TR max lorne: 313.4 cm/sec TR max P.3 mmHg ECHO/Echo Complete Interpretation Summary Normal LV size. Left ventricular systolic function is normal. The left ventricular ejection fraction is 55 %. Mild concentric left ventricular hypertrophy. Bioprosthetic aortic valve. Mean aortic valve gradient 16 mmHg. Ordering Physician: Antwon Vidal Referring Physician: Murphy Burton Performed By: Karmen Munoz RDCS, RVT
[2024-03-22] VITALS (10 sets, daily range): BP systolic 159–186; BP diastolic 60–73; PULSE 70–101; RESP 16–20; TEMP 36.2–36.9; O2SAT 93–100; BMI 28.5
[2024-03-22] MEDS: Furosemide 40 MG/4 ML Vial IV ×3 (00:21→16:52)
[2024-03-22] MEDS: Azithromycin 500 MG in 0.9% Normal Saline (250mL Bag) 250 ML 250 MG IV (00:21)
--- NOTE | 2024-03-22 06:30 | RAD_ITS ---
EXAM: XR CHEST, 1 VIEW CLINICAL INDICATION: PNA and AE CHF. TECHNIQUE: Frontal view of the chest. COMPARISON: Two-view chest 03/21/2024 FINDINGS: LUNGS AND PLEURAL SPACES: Central pulmonary vascular congestion, pulmonary edema and small pleural effusions. No pneumothorax. HEART: See below. MEDIASTINUM: Central airways and mediastinal contour are unremarkable. BONES/JOINTS: Degenerative changes of the spine. No acute fracture. SOFT TISSUES: Unremarkable. VASCULATURE: Surgical changes at the aortic root. RAD/Chest 1 View (Portable) IMPRESSION: Central pulmonary vascular congestion, pulmonary edema and small pleural effusions. Findings may indicate CHF. Electronically Signed: Lb Jacobsen MD at 7:48 EST ,
[2024-03-22 06:39] LABS: Absolute Lymphocyte Count 2.19 X10^3/uL (0.83-4.51); Absolute Neutrophil Count 7.6 X10^3/uL (2.0-7.7); Basophil# 0.05 X10^3/uL; Basophil% 0.4 % (0-1); Eosinophil# 0.22 X10^3/uL; Eosinophils% 1.9 % (0-5); Hemoglobin 13.9 g/dL (12.0-15.0); Lymphocyte # 2.19 X10^3/ul (0.83-4.51); Lymphocyte % 19.2 % (19-41); Mean Corp Hgb Conc 33.9 g/dL (32-36); Mean Corpuscular Volume 85.4 fL (81-99); Mean Platelet Vol. 9.7 fl (6.2-12.0); Monocyte# 1.28 X10^3/uL; Monocyte% 11.2 % (0-10); NRBC Flagged by Analyzer 0 % (0-5); Neutrophil % 66.9 % (47-70); Platelet Count 216 K/mm3 (150-450); RBC Distribution Width CV 12.6 % (11.6-14.6); RBC Distribution Width SD 38.7 fl (35.1-43.9); White Blood Count 11.4 K/mm3 (4.4-11.0)
[2024-03-22 07:07] LABS: Bedside Glucose 145 mg/dL (74-106)
[2024-03-22 07:13] LABS: AST(SGOT) 48 U/L (15-37); Alanine Aminotransfer ALT/SGPT 44 U/L (13-56); Albumin, Serum 3.3 g/dL (3.2-5.0); Alkaline Phosphatase 79 U/L (45-117); Anion Gap 4 (5-15); BUN 12 mg/dL (7-18); BUN/Creat Ratio 20.8 RATIO (10-20); Calcium,Total 8.7 mg/dL (8.5-10.1); Chloride 104 mmol/L (98-107); Creatinine, Serum 0.58 mg/dL (0.55-1.02); EST Glomerular Filtration Rate 105 mL/min (>60); Est Glom Filt Rate - Afr Amer 127 mL/min (>60); Estimated Creatinine Clearance 39.81 ml/min; Globulin 3.4 g/dL (2.2-4.2); Glucose 151 mg/dL (74-106); Magnesium 1.7 mg/dL (1.6-2.6); Phosphorus 3.2 mg/dL (2.5-4.9); Potassium 3.2 mmol/L (3.5-5.1); Protein, Total 6.7 g/dL (6.4-8.2); Sodium Level 139 mmol/L (136-145)
[2024-03-22 07:19] LABS: Cholesterol 270 mg/dL (200); High Density Lipoprotein 55 mg/dL; Triglycerides 129 mg/dL; Very Low Density Lipoprotein 26 mg/dL (5-40)
[2024-03-22] MEDS: Aspirin E.C. 81 MG Tablet PO (08:10)
[2024-03-22] MEDS: Potassium Chloride Oral Tablet 20 MEQ PO ×2 (08:10→16:51)
[2024-03-22] MEDS: Carvedilol 25 MG Tablet PO ×2 (08:10→16:50)
[2024-03-22] MEDS: Multivitamins,Ther W-Minerals Tablet 1 TABLET PO (08:10)
[2024-03-22] MEDS: Ascorbic Acid 500 MG Tablet 1000 MG PO ×2 (08:10→16:51)
[2024-03-22 08:44] LABS: Hemoglobin A1c 6.6 % (3.8-5.6)
--- NOTE | 2024-03-22 09:00 | CON.PCM.CA_ITS ---
Assessment & Plan Assessment/Plan (1) CHF exacerbation: QUALIFIERS: Heart failure type: unspecified Qualified Code(s): I 50.9 - Heart failure, unspecified PLAN: She presents with congestive heart failure likely secondary to uncontrolled hypertension. Will recommend intravenous diuresis with Lasix and aggressively manage her blood pressure medications. She would likely need an additional calcium channel juan in addition to her beta-juan and WILLIAM inhibitor. (2) History of transcatheter aortic valve replacement (TAVR): PLAN: She is status post TAVR. At some point a limited echocardiogram will be performed to assess her ventricular function. Last echocardiogram from a year ago demonstrated preserved ejection fraction with mitral annular calcification. (3) Essential hypertension: PLAN: Patient presents with blood pressure elevation and I will recommend continuing the carvedilol 25 mg twice a day * Continue lisinopril 10 mg twice a day * Add amlodipine 5 mg a day HPI Consult Data Date of Consult: 03/22/24 HPI Narrative HPI Narrative: SOPHIA PRATHER, is a 89 F who presents to the emergency room with shortness of breath. She says that this started a few days prior to admission. She denies any fever or paroxysmal nocturnal dyspnea or pedal edema. He remember I had seen her in the office in January and made some changes to her medications. She has a history of CAD status post RCA PTCA/stent (2016), hyperlipidemia, hypertension, moderate to severe aortic valve stenosis, with a history of bilateral carotid artery endarterectomy-remote. She had a TIA in 11/2020. She was evaluated [facility] in February 2022 for shortness of breath. She underwent a heart catheterization that showed severe coronary artery disease. Her echocardiogram showed ejection fraction of 65% and moderate to severe aortic valve stenosis. She was transferred to [facility] for CABG and AVR evaluation. She proceeded with drug-eluting stent to mid RCA and mid LAD on 04/01/2022. Post stenting, she returned to Emergency Department and transferred back to [facility] for shortness of breath and pulmonary edema. She was discharged and in few hours upon returning home, she presented back to the emergency department for shortness of breath. She again was transferred to [facility]. She ultimately proceeded with TAVR at [facility] on 04/25/2022 with a 23 mm Lerner LORELEI S3 valve. Echocardiogram post TAVR showed ejection fraction 50-55%, stage II diastolic dysfunction, mean aortic valve gradient 8 mmHg, dimensionless valve index of 0.53, valve area of 1.03 cm?, and a valve velocity max at 1.9 m/s. She has had some problems with her blood pressures and we have made some adjustments to her blood pressure medication. In the emergency room during this visit her blood pressure was over 200 systolic and over 100 diastolic. EKG demonstrated sinus rhythm with lateral ST depression. [facility] Medical History Moderate to severe aortic stenosis Depression Diabetes Osteoporosis Non-smoker Coronary artery disease Hypertension TIA (transient ischemic attack) Nonrheumatic aortic (valve) stenosis Essential hypertension Presence of stent in coronary artery (~04/04/22) Carotid stenosis, left Occlusion and stenosis of left carotid artery Nonrheumatic mitral (valve) insufficiency Aortic valve disorders Atherosclerotic heart disease of [place] coronary artery without angina pectoris HLD (hyperlipidemia) Occlusion and stenosis of right carotid artery PAD (peripheral artery disease) Home Medications ?Medication ?Instructions ?Recorded ?Last Taken ?Type nitroglycerin 0.4 mg sublingual 0.4 mg sublingual Q5M PRN Chest 07/11/16 03/19/22 Rx tablet Pain #20 tabs aspirin 81 mg tablet,delayed 81 mg PO DAILY HEART HEALTH 04/28/18 03/20/22 History release metformin 500 mg tablet 500 mg PO BID blood sugar 01/28/21 03/20/22 History omega-3 250 vi-ocg-fef-lutein 2.5 1 cap PO BID EYE HEALTH 01/28/21 03/20/22 History mg-zeaxanthin 0.5 mg capsule ([facility]) vitamin B complex 1 cap PO DAILY SUPPLEMENT 01/28/21 03/20/22 History ezetimibe 10 mg tablet 10 mg PO DAILY CHOLESTEROL 03/20/22 03/20/22 History multivitamin with minerals 1 tab PO DAILY SUPPLEMENT 03/20/22 03/20/22 History hydralazine 10 mg tablet 10 mg PO TID PRN hypertension 05/15/22 Unknown History melatonin 1 mg tablet 1 mg PO HS PRN sleep 05/15/22 Unknown History sertraline 50 mg tablet 50 mg PO DAILY 05/15/22 Unknown History lisinopril 10 mg tablet 10 mg PO QHS #90 tabs 02/16/24 Unknown Rx carvedilol 12.5 mg tablet 25 mg PO BID 03/21/24 Unknown History furosemide 20 mg tablet 20 mg PO DAILY 03/21/24 Unknown History Allergy/AdvReac Type Severity Reaction Status Date / Time rosuvastatin AdvReac Severe Myalgias Verified 03/21/24 20:14 simvastatin AdvReac Severe myalgias Verified 03/21/24 20:14 Family History Father CAD (coronary artery disease) Hypertension Myocardial infarction, Onset Age: 80 Sister CVA (cerebral vascular accident), Onset Age: 66 Diabetes Arthritis Mother Cancer Thyroid Surgical History History of transcatheter aortic valve replacement (TAVR) (~04/25/22) History of right and left heart catheterization (LHC) (~03/21/22) Presence of coronary angioplasty implant and graft (~07/10/16) History of left-sided carotid endarterectomy (05/05/17) History of hysterectomy History of CEA (carotid endarterectomy) (~2010) Social History Smoking Status: Never smoker second hand exposure: No alcohol intake: never substance use type: does not use caffeine: No ROS Constitutional Constitutional: Denies fever(s) or weight loss Eyes Eyes: Reports systems reviewed and no addt'l complaints, except as documented ENT HEENT: Reports systems reviewed and no addt'l complaints, except as documented Cardiovascular Cardiovascular: Reports dyspnea at rest and dyspnea on exertion; Denies chest pain at rest, chest pain with activity, edema, palpitations or paroxysmal nocturnal dyspnea Respiratory/Chest Respiratory/Chest: Reports dyspnea on exertion, shortness of breath at rest and shortness of breath with exertion; Denies productive cough Gastrointestinal Gastrointestinal: Denies change in bowel habits, nausea, vomiting or weight changes Genitourinary Genitourinary: Denies difficulty urinating Musculoskeletal Musculoskeletal: Denies joint stiffness or muscle weakness Integumentary Integumentary: Denies lesions Neurologic Neurologic: Denies dizziness or syncope Psychiatric Psychiatric: Denies anxiety Endocrine Endocrinology: Denies excessive sweating or fatigue Hematologic/Lymphatic Hematologic/Lymphatic: Denies anemia Allergic/Immunologic Allergic/Immunologic: Denies seasonal rhinorrhea Physical Exam Const alert, oriented x3 and no apparent distress General Appearance: cooperative HEENT hearing grossly normal bilaterally Head and Scalp: atraumatic Eyes EOMs intact bilaterally Neck General: normal visual inspection Chest inspection of chest normal and palpation of chest normal Resp normal respiratory effort Auscultation: crackles Cardio regular rate, regular rhythm, S1 normal heart sound and S2 normal heart sound Jugular Venous Distention: JVD Heart Sounds: murmur systolic I/ soft early left sternal border GI normal to inspection, nondistended, normoactive bowel sounds Extremity normal capillary refill and no pedal edema Peripheral Pulses: Yes pulses 2+ throughout and femoral pulses present Skin no rashes or lesions noted Neuro oriented x3 and CN's II-XII intact bilaterally Psych Appearance: grossly normal and appropriate Risk Stratification Risk Stratification Applicable: No Objective Data Vital Signs: Vital Signs Temp Pulse Resp BP Pulse Ox O2 Del Method O2 Flow Rate 98.5 F 79 16 186/73 H 95 Nasal Cannula 2 03/22/24 08:02 03/22/24 08:02 03/22/24 08:02 03/22/24 08:02 03/22/24 08:02 03/22/24 08:18 03/22/24 08:02 Oxygen Flow Rate (L/min) 2 Oxygen Delivery Method Nasal Cannula Weight: 141 lb 1.6 oz Body Mass Index (BMI) 28.5 Intake & Output: Intake and Output for Last 24 Hours 03/20/24 03/21/24 03/22/24 23:59 23:59 23:59 Intake Total 550 / 550 255 / 255 Output Total 1450 / 1450 Balance 550 / 550 -1195 / -1195 Lab / Micro Data 03/22/24 06:15 03/22/24 06:15 Labs: Laboratory Results - last 24 hr 03/21/24 20:20: WBC 9.3, RBC 4.85, Hgb 13.9, Hct 42.1, MCV 86.8, MCH 28.7, MCHC 33.0, RDW Std Deviation 39.7, RDW Coeff of Jennifer 12.6, Plt Count 232, MPV 10.4, Immature Gran % (Auto) 0.400, Neut % (Auto) 62.9, Lymph % (Auto) 20.4, [place] % (Auto) 9.2, Eos % (Auto) 6.1 H, Baso % (Auto) 1.0, Absolute Neuts (auto) 5.9, Absolute Lymphs (auto) 1.91, Nucleated RBC % 0, Sodium 137, Potassium 3.7, Chloride 103, Carbon Dioxide 28.0, Anion Gap 6, BUN 18, Creatinine 0.79, Estim Creat Clear Calc 40.89, Est GFR (MDRD) Af Amer 88, Est GFR (MDRD) Non-Af 73, B UN/Creatinine Ratio 22.7 H, Glucose 302 H, Calcium 9.4, Troponin I High Sens 50, B-Natriuretic Peptide 253.0 H, TSH 4.100 H 03/21/24 20:35: Lactic Acid 1.7 03/22/24 06:15: WBC 11.4 H, RBC 4.80, Hgb 13.9, Hct 41.0, MCV 85.4, MCH 29.0, MCHC 33.9, RDW Std Deviation 38.7, RDW Coeff of Jennifer 12.6, Plt Count 216, MPV 9.7, Immature Gran % (Auto) 0.400, Neut % (Auto) 66.9, Lymph % (Auto) 19.2, [place] % (Auto) 11.2 H, Eos % (Auto) 1.9, Baso % (Auto) 0.4, Absolute Neuts (auto) 7.6, Absolute Lymphs (auto) 2.19, Nucleated RBC % 0, Sodium 139, Potassium 3.2 L, Chloride 104, Carbon Dioxide 31.0, Anion Gap 4 L, BUN 12, Creatinine 0.58, Estim Creat Clear Calc 39.81, Est GFR (MDRD) Af Amer 127, Est GFR (MDRD) Non-Af 105, B UN/Creatinine Ratio 20.8 H, Glucose 151 H, Hemoglobin A1c 6.6 H, Calcium 8.7, Phosphorus 3.2, Magnesium 1.7, Total Bilirubin 0.50, AST 48 H, ALT 44, Alkaline Phosphatase 79, Total Protein 6.7, Albumin 3.3, Globulin 3.4, Albumin/Globulin Ratio 1.0, Triglycerides 129, Cholesterol 270 H, LDL Cholesterol 189 H, VLDL Cholesterol 26, HDL Cholesterol 55 03/22/24 06:48: POC Glucose 145 H Micro: Microbiology 03/22/24 00:45 Urine, Clean Catch Legionella Antigen - Final 03/22/24 00:45 Urine, Random Streptococcus pneumoniae Antigen (M - Final 03/21/24 20:35 Mucosa - Nose SARS-CoV-2, Influenza & RSV (PCR) - Final ABG Data ABG results: ABG 03/21/24 21:35 Specimen Type RUPERT Sample Site Not entered O2 % 5.0 VBG pH 7.38 VBG pO2 36 VBG HCO3 27 H VBG Total CO2 28 VBG O2 Sat (Calc) 68 VBG Base Excess 2 POC Mix VBG pCO2 Pt Tmp 45.3 O2 Delivery Device Not entered Cardiology Labs/Tests 03/21/24 20:20: WBC 9.3, RBC 4.85, Hgb 13.9, Hct 42.1, MCV 86.8, MCH 28.7, MCHC 33.0, Plt Count 232, MPV 10.4, Immature Gran % (Auto) 0.400, Neut % (Auto) 62.9, Lymph % (Auto) 20.4, [place] % (Auto) 9.2, Eos % (Auto) 6.1 H, Baso % (Auto) 1.0, Absolute Neuts (auto) 5.9, Nucleated RBC % 0, Sodium 137, Potassium 3.7, Chloride 103, Carbon Dioxide 28.0, Anion Gap 6, BUN 18, Creatinine 0.79, Est GFR (MDRD) Af Amer 88, Est GFR (MDRD) Non-Af 73, BUN/Creatinine Ratio 22.7 H, G lucose 302 H, Calcium 9.4, B-Natriuretic Peptide 253.0 H 03/21/24 20:35: Lactic Acid 1.7 03/21/24 21:35: VBG pH 7.38, VBG pO2 36, VBG HCO3 27 H, VBG O2 Sat (Calc) 68, VBG Base Excess 2 03/22/24 06:15: WBC 11.4 H, RBC 4.80, Hgb 13.9, Hct 41.0, MCV 85.4, MCH 29.0, MCHC 33.9, Plt Count 216, MPV 9.7, Immature Gran % (Auto) 0.400, Neut % (Auto) 66.9, Lymph % (Auto) 19.2, [place] % (Auto) 11.2 H, Eos % (Auto) 1.9, Baso % (Auto) 0.4, Absolute Neuts (auto) 7.6, Nucleated RBC % 0, Sodium 139, Potassium 3.2 L, Chloride 104, Carbon Dioxide 31.0, Anion Gap 4 L, BUN 12, Creatinine 0.58, Est GFR (MDRD) Af Amer 127, Est GFR (MDRD) Non-Af 105, BUN/Creatinine Ratio 20.8 H, Glucose 151 H, Hemoglobin A1c 6.6 H, Calcium 8.7, Phosphorus 3.2, Magnesium 1.7, Total Bilirubin 0.50, Triglycerides 129, Cholesterol 270 H, LDL Cholesterol 189 H, VLDL Cholesterol 26, HDL Cholesterol 55 Rhythm: EKG: ECHO: Stress Test: Cardiac Cath: PCI: CT Surgery: Holter monitor: EPS: PPM: CXR: Chest CT Scan: Radiography Diagnostic Testing: Radiology Impression Chest X-Ray 03/21/24 21:20 IMPRESSION: Bilateral patchy opacities may represent edema and/or infection. Questionable trace bilateral pleural effusions. Electronically Signed: Eulogio Demarco MD at 21:56 EST , Chest X-Ray 03/22/24 06:30 IMPRESSION: Central pulmonary vascular congestion, pulmonary edema and small pleural effusions. Findings may indicate CHF. Electronically Signed: Lb Jacobsen MD at 7:48 EST ,
[2024-03-22 10:03] LABS: BNP,B-Type NATRIURETIC PEPTIDE 638.5 pg/mL (0-100)
--- NOTE | 2024-03-22 10:49 | PCM.PN.HOSP ---
Reason for Visit Reason for Visit: Diagnoses Atherosclerotic heart disease of [place] coronary artery without angina pectoris (03/21/24) Nonrheumatic aortic (valve) stenosis (03/21/24) Heart failure, unspecified (03/21/24) Occlusion and stenosis of left carotid artery (03/21/24) Pneumonia, unspecified organism (03/21/24) Other abnormalities of breathing (03/21/24) Presence of prosthetic heart valve (03/21/24) Presence of coronary angioplasty implant and graft (03/21/24) Other specified postprocedural states (03/21/24) Objective Data Objective Data Vital Signs: Vital Signs Temp Pulse Resp BP Pulse Ox O2 Del Method O2 Flow Rate 98.5 F 79 16 186/73 H 95 Nasal Cannula 2 03/22/24 08:02 03/22/24 08:02 03/22/24 08:02 03/22/24 08:02 03/22/24 08:02 03/22/24 08:18 03/22/24 08:02 Oxygen Flow Rate (L/min) 2 Oxygen Delivery Method Nasal Cannula Weight: 141 lb 1.604 oz Body Mass Index (BMI) 28.5 Intake & Output: Intake and Output for Last 24 Hours 03/20/24 03/21/24 03/22/24 23:59 23:59 23:59 Intake Total 550 / 550 255 / 255 Output Total 1450 / 1450 Balance 550 / 550 -1195 / -1195 Lab / Micro Data 03/22/24 06:15 03/22/24 06:15 Labs: Laboratory Results - last 24 hr 03/21/24 20:20: WBC 9.3, RBC 4.85, Hgb 13.9, Hct 42.1, MCV 86.8, MCH 28.7, MCHC 33.0, RDW Std Deviation 39.7, RDW Coeff of Jennifer 12.6, Plt Count 232, MPV 10.4, Immature Gran % (Auto) 0.400, Neut % (Auto) 62.9, Lymph % (Auto) 20.4, [place] % (Auto) 9.2, Eos % (Auto) 6.1 H, Baso % (Auto) 1.0, Absolute Neuts (auto) 5.9, Absolute Lymphs (auto) 1.91, Nucleated RBC % 0, Sodium 137, Potassium 3.7, Chloride 103, Carbon Dioxide 28.0, Anion Gap 6, BUN 18, Creatinine 0.79, Estim Creat Clear Calc 40.89, Est GFR (MDRD) Af Amer 88, Est GFR (MDRD) Non-Af 73, BUN/Creatinine Ratio 22.7 H, Glucose 302 H, Calcium 9.4, Troponin I High Sens 50, B-Natriuretic Peptide 253.0 H, TSH 4.100 H 03/21/24 20:35: Lactic Acid 1.7 03/22/24 06:15: WBC 11.4 H, RBC 4.80, Hgb 13.9, Hct 41.0, MCV 85.4, MCH 29.0, MCHC 33.9, RDW Std Deviation 38.7, RDW Coeff of Jennifer 12.6, Plt Count 216, MPV 9.7, Immature Gran % (Auto) 0.400, Neut % (Auto) 66.9, Lymph % (Auto) 19.2, [place] % (Auto) 11.2 H, Eos % (Auto) 1.9, Baso % (Auto) 0.4, Absolute Neuts (auto) 7.6, Absolute Lymphs (auto) 2.19, Nucleated RBC % 0, Sodium 139, Potassium 3.2 L, Chloride 104, Carbon Dioxide 31.0, Anion Gap 4 L, BUN 12, Creatinine 0.58, Estim Creat Clear Calc 39.81, Est GFR (MDRD) Af Amer 127, Est GFR (MDRD) Non-Af 105, BUN/Creatinine Ratio 20.8 H, Glucose 151 H, Hemoglobin A1c 6.6 H, Calcium 8.7, Phosphorus 3.2, Magnesium 1.7, Total Bilirubin 0.50, AST 48 H, ALT 44, Alkaline Phosphatase 79, B-Natriuretic Peptide 638.5 H, Total Protein 6.7, Albumin 3.3, Globulin 3.4, Albumin/Globulin Ratio 1.0, Triglycerides 129, Cholesterol 270 H, LDL Cholesterol 189 H, VLDL Cholesterol 26, HDL Cholesterol 55 03/22/24 06:48: POC Glucose 145 H Micro: Microbiology 03/22/24 00:45 Urine, Clean Catch Legionella Antigen - Final 03/22/24 00:45 Urine, Random Streptococcus pneumoniae Antigen (M - Final 03/21/24 20:35 Mucosa - Nose SARS-CoV-2, Influenza & RSV (PCR) - Final ABG Data ABG results: ABG 03/21/24 21:35 Specimen Type RUPERT Sample Site Not entered O2 % 5.0 VBG pH 7.38 VBG pO2 36 VBG HCO3 27 H VBG Total CO2 28 VBG O2 Sat (Calc) 68 VBG Base Excess 2 POC Mix VBG pCO2 Pt Tmp 45.3 O2 Delivery Device Not entered Radiography Diagnostic Testing: Radiology Impression Chest X-Ray 03/21/24 21:20 IMPRESSION: Bilateral patchy opacities may represent edema and/or infection. Questionable trace bilateral pleural effusions. Electronically Signed: Eulogio Demarco MD at 21:56 EST , Chest X-Ray 03/22/24 06:30 IMPRESSION: Central pulmonary vascular congestion, pulmonary edema and small pleural effusions. Findings may indicate CHF. Electronically Signed: Lb Jacobsen MD at 7:48 EST , Physical Exam Narrative Seen and examined. Patient admitted with shortness of breath suggestive of CHF exacerbation. Denies fever, PND, pedal edema shortness of breath is better. Repeat chest x-ray reviewed blood pressure is high. Discussed with the roentgenology teacher Physical exam General: Alert, Oriented x3, Cooperative HEENT: Atraumatic, PERRLA, EOMI, Normocephalic Oral: No Gingival or Mucosal Lesions/ Ulcerations Neck: Supple, No JVD, Negative Carotid Bruits Chest wall/Lungs: Air entry diminished in bilateral lung bases. No crepitation/rhonchi Cardiovascular: Regular rate, Regular Rhythm, Normal S1, Normal S2, systolic murmur. Status post TAVR Abdomen: Bowel Sounds Present, Soft, Non Tender, Non-Distended : No dysuria. No renal angle tenderness. No suprapubic tenderness. Extremities: No edema, Capillary Refill Less than 3 Seconds Skin: No rashes, No breakdown Musculoskeletal: No Tenderness to Palpation of Joints or Extremities Neurological: Cranial nerves II-XII grossly intact, DTR 2+/4. No acute focal neurological deficit. Psych/Mental Status: Normal Affect, Appropriate. Assessment & Plan Assessment/Plan (1) Pneumonia: QUALIFIERS: Laterality: bilateral Lung location: unspecified part of lung Pneumonia type: due to unspecified organism Qualified Code(s): J18.9 - Pneumonia, unspecified organism (2) CHF exacerbation: QUALIFIERS: Heart failure type: unspecified Qualified Code(s): I50.9 - Heart failure, unspecified (3) Respiratory insufficiency: (4) History of transcatheter aortic valve replacement (TAVR): (5) Severe aortic valve stenosis: (6) History of right and left heart catheterization (LHC): (7) CAD (coronary artery disease), [place] coronary artery: QUALIFIERS: Associated angina: without angina [place] vs. transplanted heart: [place] heart Qualified Code(s): I25.10 - Atherosclerotic heart disease of [place] coronary artery without angina pectoris (8) Presence of stent in coronary artery: (9) Carotid stenosis, left: PLAN: Plan 89-year-old female admitted with shortness of breath few days prior to admission but no PND or pedal edema. Denies chest pain 1. CHF exacerbation - Admit to PCU. BNP elevated. Chest x-ray initially reviewed and shows bilateral patchy opacities suggestive of edema and repeat chest x-ray also suggestive of central pulmonary vascular congestion/pulmonary edema and small bilateral pleural effusion. Twelve-lead EKG sinus rhythm with mild lateral ST depression. Patient on IV diuretic furosemide 40 mg twice daily. Heart failure core measures including intake and output, fluid restriction less than 1500 mL, daily weight monitoring, kidney and electrolytes monitoring. Echo post-TAVR showed EF 50 to 55%, stage II diastolic dysfunction, mean AV gradient 8 mmHg valve area 1.03 cm?. 2. Pneumonia ruled out. Urinary antigens, triple PCR for SARS-CoV-2, flu and RSV are negative. Antibiotic discontinued. 3. Poorly-controlled Hypertension, accelerated hypertension: BP was more than 200 systolic/100 in ED. Continue lisinopril 10 mg twice daily. Amlodipine 5 mg daily added. Patient on furosemide carvedilol and hydralazine. 4.CAD, cardiac stents 2022 and chronic nonrheumatic [id number] stenosis of aortic valve; s/p TAVR (03/2022) PAD, bilateral carotid stenosis status post right CEA 2010, left CEA 2018: Echo findings as above. Continue baby aspirin. 5. Hyperlipidemia; on ezetmibe - Resume ezetimibe and check Lipid Profile this admission. 6. Obesity; with BMI of 30.1 this admission -weight loss recommended 7. DM-2 chronic metformin - ADA diet. FSBS q. AC/HS plus SSI. A1c 6.6%. 8. History of depression; on sertraline - Resume sertraline as previous. 9. Other comorbidities include osteoarthritis and osteoporosis osteoporosis - Stable. DVT prophylaxis - Lovenox 40 mg sq daily plus SCD's. Charges/Coding Visit Charges Inpatient E&M: 67723 Subs Hosp L2
[2024-03-22] MEDS: Ezetimibe 10 MG Tablet PO (11:59)
[2024-03-22] MEDS: Cholecalciferol (Vit D3) 125 MCG CAPSULE (5,000 UNITS) PO (11:59)
[2024-03-22] MEDS: Lactobacillis Acidophilus 1 CAP PO ×3 (11:59→21:38)
[2024-03-22] MEDS: Magnesium Chloride 64 MG Delay Rel.Tablet 128 MG PO ×2 (11:59→21:40)
[2024-03-22] MEDS: Sertraline 50 MG Tablet PO (11:59)
[2024-03-22] MEDS: Zinc Sulfate 50 mg zinc (220 mg) ORAL capsule PO (12:00)
[2024-03-22] MEDS: Enoxaparin 40 MG/0.4 ML Syringe SC (12:00)
[2024-03-22] MEDS: Lisinopril 10 MG Tablet PO ×2 (12:00→21:40)
[2024-03-22] MEDS: Insulin Lispro 100 UNIT/ML INSULN.PEN SC ×3 (12:22→21:38)
[2024-03-22 12:48] LABS: Bedside Glucose 269 mg/dL (74-106)
--- NOTE | 2024-03-22 13:37 | CASEMGMT ---
FRANCISCO MONROE Assessment Face to Face with patient for initial transition planning/care coordination assessment. FRANCISCO MONROE introduced self and role at [facility], pt voices understanding. Pt is A&Ox4 and is resting comfortably in bed and is calm. Pt daughter, Debra, at bedside. Care providers, pharmacy, and demographics verified. Admitting dx: CONNER MCFARLAND Strata: 2 PCP: Murphy Burton Specialists: MANUEL ([facility]), seo marketing specialist in [facility]: Pt is listed as SP but states that her community/ [employer] helps pay for her healthcare, including her prescriptions Prescription Benefit: Yes, see above LNOK: Amber Preston (Karin), Nuno Fisher (Son), Debra (Daughter) Living Arrangements: Pt lives alone in a single story home with a flat entrance. Pt daughter Debra (and her family) live right next door. ADLs/IADLs: Ind Transportation: Hires drivers + Horse and buggy DME: [employer] with sufficient supplies. Grab bars. FWW. W/C. BSC. Pt reports that these were mainly for her prior to his passing. Pt is currently requiring additional oxygen and may qualify for home oxygen use. A verbal list of local in-network DME companies were provided to the pt at this time. Pt prefers [facility] HHC/SNF: Denies history or needs Pt?s goal: Return home Plan: Anticipate DC home once medically ready, follow for oxygen needs. 6-click score is 23. Pt denies the need for HH, OP Tx, or CCN. However, PT is ordered and pending. Pt states that if she needs to, she can stay are her daughters home (Debra) for additional support. Pt denies further questions, concerns, or needs at this time. Report given to FINGERER CM. Amada Trotter RN, CM
[2024-03-22 17:37] LABS: Bedside Glucose 178 mg/dL (74-106)
[2024-03-23 00:42] LABS: Bedside Glucose 192 mg/dL (74-106)
[2024-03-23 03:30] VITALS: BP 159/58; PULSE 74; RESP 18; TEMP 36; O2SAT 94
[2024-03-23 06:00] VITALS: BMI 28.5
[2024-03-23 06:51] LABS: Bedside Glucose 140 mg/dL (74-106)
[2024-03-23 07:21] LABS: Magnesium 2.1 mg/dL (1.6-2.6); Phosphorus 3.6 mg/dL (2.5-4.9)
[2024-03-23 07:39] VITALS: O2SAT 96
[2024-03-23 07:51] VITALS: BP 137/68; PULSE 72; RESP 15; TEMP 36.6; O2SAT 91
[2024-03-23] MEDS: Glucerna Shake 120 ML LIQUID PO ×2 (08:12→12:33)
[2024-03-23] MEDS: Carvedilol 25 MG Tablet PO (08:13)
[2024-03-23] MEDS: Potassium Chloride Oral Tablet 20 MEQ PO (08:13)
[2024-03-23] MEDS: Aspirin E.C. 81 MG Tablet PO (08:13)
[2024-03-23] MEDS: Multivitamins,Ther W-Minerals Tablet 1 TABLET PO (08:14)
[2024-03-23] MEDS: Ascorbic Acid 500 MG Tablet 1000 MG PO (08:14)
[2024-03-23] MEDS: Furosemide 40 MG/4 ML Vial IV (08:15)
[2024-03-23] MEDS: 0.9% Saline Lock 10 ML Syringe IV (08:15)
[2024-03-23 08:22] LABS: Anion Gap 5 (5-15); BUN 18 mg/dL (7-18); BUN/Creat Ratio 26.4 RATIO (10-20); Calcium,Total 8.8 mg/dL (8.5-10.1); Chloride 105 mmol/L (98-107); Creatinine, Serum 0.68 mg/dL (0.55-1.02); EST Glomerular Filtration Rate 86 mL/min (>60); Est Glom Filt Rate - Afr Amer 105 mL/min (>60); Estimated Creatinine Clearance 39.87 ml/min; Glucose 150 mg/dL (74-106); Potassium 3.8 mmol/L (3.5-5.1); Sodium Level 139 mmol/L (136-145)
--- NOTE | 2024-03-23 10:00 | PN.CARD_ITS ---
Objective Data Vital Signs: Vital Signs Temp Pulse Resp BP Pulse Ox O2 Del Method O2 Flow Rate 98 F 72 15 137/68 H 91 Room Air 2 03/23/24 07:51 03/23/24 07:51 03/23/24 07:51 03/23/24 07:51 03/23/24 07:51 03/23/24 07:59 03/22/24 08:02 Oxygen Flow Rate (L/min) 2 Oxygen Delivery Method Room Air Weight: 141 lb 8.588 oz Body Mass Index (BMI) 28.5 Intake & Output: Intake and Output for Last 24 Hours 03/21/24 03/22/24 03/23/24 23:59 23:59 23:59 Intake Total 550 / 550 255 / 255 Output Total 1950 / 1950 Balance 550 / 550 -1695 / -1695 Lab / Micro Data 03/22/24 06:15 03/23/24 05:56 Labs: Laboratory Results - last 24 hr 03/22/24 06:15: B-Natriuretic Peptide 638.5 H 03/22/24 12:19: POC Glucose 269 H 03/22/24 16:49: POC Glucose 178 H 03/22/24 21:37: POC Glucose 192 H 03/23/24 05:56: Sodium 139, Potassium 3.8, Chloride 105, Carbon Dioxide 29.0, Anion Gap 5, BUN 18, Creatinine 0.68, Estim Creat Clear Calc 39.87, Est GFR (MDRD) Af Amer 105, Est GFR (MDRD) Non-Af 86, BUN/Creatinine Ratio 26.4 H, G lucose 150 H, Calcium 8.8, Phosphorus 3.6, Magnesium 2.1 03/23/24 06:28: POC Glucose 140 H Cardiology Labs/Tests 03/22/24 06:15: B-Natriuretic Peptide 638.5 H 03/23/24 05:56: Sodium 139, Potassium 3.8, Chloride 105, Carbon Dioxide 29.0, Anion Gap 5, BUN 18, Creatinine 0.68, Est GFR (MDRD) Af Amer 105, Est GFR (MDRD) Non-Af 86, BUN/Creatinine Ratio 26.4 H, Glucose 150 H, Calcium 8.8, Phosphorus 3.6, Magnesium 2.1 Rhythm: EKG: ECHO: Stress Test: Cardiac Cath: PCI: CT Surgery: Holter monitor: EPS: PPM: CXR: Chest CT Scan: Radiography Diagnostic Testing: Radiology Impression Echocardiogram 03/21/24 23:02 Interpretation Summary Normal LV size. Left ventricular systolic function is normal. The left ventricular ejection fraction is 55 %. Mild concentric left ventricular hypertrophy. Bioprosthetic aortic valve. Mean aortic valve gradient 16 mmHg. Ordering Physician: Antwon Vidal Referring Physician: Murphy Burton Performed By: Karmen Munoz, CHACHA, RVT Physical Exam Const alert, oriented x3 and no apparent distress General Appearance: cooperative HEENT hearing grossly normal bilaterally Head and Scalp: atraumatic Eyes EOMs intact bilaterally Neck General: normal visual inspection Chest inspection of chest normal and palpation of chest normal Resp normal respiratory effort Auscultation: crackles Cardio regular rate, regular rhythm, S1 normal heart sound and S2 normal heart sound Jugular Venous Distention: JVD Heart Sounds: murmur systolic I/ soft early left sternal border GI normal to inspection, nondistended, normoactive bowel sounds Extremity normal capillary refill and no pedal edema Peripheral Pulses: Yes pulses 2+ throughout and femoral pulses present Skin no rashes or lesions noted Neuro oriented x3 and CN's II-XII intact bilaterally Psych Appearance: grossly normal and appropriate Assessment & Plan Assessment/Plan (1) CHF exacerbation: QUALIFIERS: Heart failure type: unspecified Qualified Code(s): I 50.9 - Heart failure, unspecified PLAN: She presents with congestive heart failure likely secondary to uncontrolled hypertension. Will recommend continued oral Lasix together with her blood pressure medications. (2) History of transcatheter aortic valve replacement (TAVR): PLAN: She is status post TAVR. Echo demonstrated preserved ejection fraction with stable valvular replacement (3) Essential hypertension: PLAN: Patient presents with blood pressure elevation and I will recommend continuing the carvedilol 25 mg twice a day * Continue lisinopril 10 mg twice a day Continue amlodipine 5 mg a day
[2024-03-23] MEDS: Magnesium Chloride 64 MG Delay Rel.Tablet 128 MG PO (10:26)
[2024-03-23] MEDS: Vitamin B Comp W-C Capsule 1 CAP PO (10:26)
[2024-03-23] MEDS: Lactobacillis Acidophilus 1 CAP PO (10:26)
[2024-03-23] MEDS: Ezetimibe 10 MG Tablet PO (10:27)
[2024-03-23] MEDS: Cholecalciferol (Vit D3) 125 MCG CAPSULE (5,000 UNITS) PO (10:27)
[2024-03-23] MEDS: Sertraline 50 MG Tablet PO (10:27)
[2024-03-23] MEDS: Zinc Sulfate 50 mg zinc (220 mg) ORAL capsule PO (10:27)
--- NOTE | 2024-03-23 10:28 | DCINST_ITS ---
Discharge Instructions DC O2, CPAP, BIPAP needs Home O2 Discharge instructions: No Follow Up Care Test Results: Test results from this visit will be discussed in further detail at your follow- up appointment, if applicable. Discharge Plan Admission Admit Date/Time: 03/21/24 22:52 Primary Reason for Your Visit: Heart failure exacerbation Attending Provider: Papi Ruiz Primary Care Provider: Murphy Burton Consulting Providers: Antwon Vidal; Pillo Cordero Discharge Orders/Prescriptions Prescriptions: New potassium chloride 20 mEq Tablet,Er Particles/Crystals 20 meq PO BIDCM 30 Days Qty: 60 0RF lisinopril 10 mg Tablet 10 mg PO BID 30 Days Qty: 60 2RF Rx Instructions: Hold for SBP less than 130 mmHg furosemide [Lasix] 40 mg tablet 40 mg PO BID 30 Days Qty: 60 2RF Rx Instructions: Hold for SBP less than 120 mmHg Continued vitamin B complex Capsule 1 cap PO DAILY [facility] 250-2.5-0.5 mg capsule 1 cap PO BID hydralazine 10 mg tablet 10 mg PO TID PRN (Reason: hypertension) Patient Comments: TAKE 1 TABLET BY MOUTH THREE TIMES DAILY NEEDED FOR BLOOD PRESSURE GREATER THAN 180 melatonin 1 mg tablet 1 mg PO HS PRN (Reason: sleep) Patient Comments: TAKE 1 TABLET BY MOUTH AT BEDTIME NEEDED sertraline 50 mg tablet 50 mg PO DAILY Patient Comments: TAKE 1 TABLET BY MOUTH ONCE DAILY lisinopril 10 mg tablet 10 mg PO QHS Qty: 90 3RF nitroglycerin 0.4 MG tablet 0.4 mg SUBLINGUAL Q5M PRN (Reason: Chest Pain) Qty: 20 1RF aspirin 81 MG tablet 81 mg PO DAILY Patient Comments: STATES WAS NOT TOLD TO STOP FOR SURGERY metformin 500 mg tablet 500 mg PO BID multivitamin with minerals Tablet 1 tab PO DAILY ezetimibe 10 mg tablet 10 mg PO DAILY carvedilol 12.5 mg tablet 25 mg PO BID Discontinued furosemide 20 mg tablet 20 mg PO DAILY Referrals / Follow Up: Murphy Burton DO [Primary Care Provider] - Pillo Cordero MD [Med Staff - Active Staff] - Within 1 Month Jeni Knox PA [Med Staff - Adv Practice Prof] - Within 2 Weeks Disposition Disposition (needs filled in before D/C Order can be placed): Home, Self Care
[2024-03-23 10:32] VITALS: BP 88/41; PULSE 63; RESP 14; TEMP 36.6; O2SAT 93
--- NOTE | 2024-03-23 10:42 | DS.PCM_ITS ---
Providers Date of Admission: 03/21/24 Date of Discharge: 03/23/24 Primary Care Physician: Dr. Murphy Burton, Consultations 03/22/24 00:48 Consult: Cardiology Routine Consulting Provider: Pillo Cordero Reason for Consult: acute exacerbation chf, pt known to abimael EMERGENT Consult: No MD Notified: Yes Date Notified: 03/22/24 Time Notified: 06:34 Method of Notification: Text Reason For Visit: PNA AND AE CHF WITH ACUTE RESPIRATORY Diagnosis Discharge Diagnosis (1) CHF exacerbation: Status: Chronic Code(s): I50.9 - Heart failure, unspecified Qualifiers: Heart failure type: unspecified Qualified Code(s): I50.9 - Heart failure, unspecified (2) History of transcatheter aortic valve replacement (TAVR): Status: Acute Code(s): Z95.2 - Presence of prosthetic heart valve (3) Essential hypertension: Status: Acute Code(s): I10 - Essential (primary) hypertension Plan 89-year-old female admitted with shortness of breath few days prior to admission but no PND or pedal edema. Denies chest pain 1. CHF exacerbation - Admit to PCU. BNP elevated. Chest x-ray initially reviewed and shows bilateral patchy opacities suggestive of edema and repeat chest x-ray also suggestive of central pulmonary vascular congestion/pulmonary edema and small bilateral pleural effusion. Twelve-lead EKG sinus rhythm with mild lateral ST depression. Patient on IV diuretic furosemide 40 mg twice daily. Heart failure core measures including intake and output, fluid restriction less than 1500 mL, daily weight monitoring, kidney and electrolytes monitoring. Echo post-TAVR showed EF 50 to 55%, stage II diastolic dysfunction, mean AV gradient 8 mmHg valve area 1.03 cm?. 03/23: Patient BP dropped to 88/41 after giving carvedilol oral and Lasix IV at 1 time. Patient also feeling dizzy. Later on blood pressure improved went up to 156/61. Discussed with the computer game designer Dr. Cordero. Patient is discharged on lisinopril 10 mg p.o. twice daily, Lasix 40 mg oral twice daily and carvedilol home dose to continue. Discussed with the son and advised to give interval of 2 hours between 2 antihypertensive medication and check blood pressure at least twice per day before giving antihypertensive medication. 2. Pneumonia ruled out. Urinary antigens, triple PCR for SARS-CoV-2, flu and RSV are negative. Antibiotic discontinued. 3. Poorly-controlled Hypertension, accelerated hypertension: BP was more than 200 systolic/100 in ED. Continue lisinopril 10 mg twice daily. Amlodipine 5 mg daily added. Patient on furosemide carvedilol and hydralazine. 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 Continue baby aspirin. 5. Hyperlipidemia; on ezetmibe - Resume ezetimibe and check Lipid Profile this admission. 6. Obesity; with BMI of 30.1 this admission -weight loss recommended 7. DM-2 chronic metformin - ADA diet. FSBS q. AC/HS plus SSI. A1c 6.6%. 8. History of depression; on sertraline - Resume sertraline as previous. 9. Other comorbidities include osteoarthritis and osteoporosis osteoporosis - Stable. DVT prophylaxis - Lovenox 40 mg sq daily plus SCD's. Discharge medication reconciliation done. Discharge follow-up instructions completed. Discharge process discussed with the patient and all questions were answered to patient's satisfaction. Follow with PCP in 1 to 2 weeks Total time spent, exact 35 minutes on discharge meds reconciliation, examination, coordination of care with nurses and ancillary staff, review of imaging and blood test and discussion with the patient on follow-up instructions. Medications at Discharge Home Medications nitroglycerin 0.4 mg sublingual tablet 0.4 mg sublingual Q5M PRN Chest Pain #20 tabs 07/11/16 aspirin 81 mg tablet,delayed release 81 mg PO DAILY HE[facility] HEALTH 04/28/18 metformin 500 mg tablet 500 mg PO BID blood sugar 01/28/21 omega-3 250 ra-rxg-ume-lutein 2.5 mg-zeaxanthin 0.5 mg capsule ([facility]) 1 cap PO BID EYE HEALTH 01/28/21 vitamin B complex 1 cap PO DAILY SUPPLEMENT 01/28/21 ezetimibe 10 mg tablet 10 mg PO DAILY CHOLESTEROL 03/20/22 multivitamin with minerals 1 tab PO DAILY SUPPLEMENT 03/20/22 hydralazine 10 mg tablet 10 mg PO TID PRN hypertension 05/15/22 melatonin 1 mg tablet 1 mg PO HS PRN sleep 05/15/22 sertraline 50 mg tablet 50 mg PO DAILY 05/15/22 lisinopril 10 mg tablet 10 mg PO QHS #90 tabs 02/16/24 carvedilol 12.5 mg tablet 25 mg PO BID 03/21/24 furosemide 40 mg tablet (Lasix) 40 mg PO BID 1 month #60 tabs 03/23/24 lisinopril 10 mg tablet 10 mg PO BID 30 days #60 tabs 03/23/24 potassium chloride 20 mEq tablet,extended release(part/cryst) 20 meq PO BIDCM 30 days #60 tabs 03/23/24 Physical Exam Narrative Seen and examined. Shortness of breath has resolved. Patient was feeling dizzy in the morning but resolved. Wants to go home. Discharged. Discussed the discharge plan with patient's son at the bedside. Physical exam General: Alert, Oriented x3, Cooperative HEENT: Atraumatic, PERRLA, EOMI, Normocephalic Oral: No Gingival or Mucosal Lesions/ Ulcerations Neck: Supple, No JVD, Negative Carotid Bruits Chest wall/Lungs: Air entry diminished in bilateral lung bases. No crepitation/rhonchi Cardiovascular: Regular rate, Regular Rhythm, Normal S1, Normal S2, systolic murmur. Status post TAVR Abdomen: Bowel Sounds Present, Soft, Non Tender, Non-Distended : No dysuria. No renal angle tenderness. No suprapubic tenderness. Extremities: No edema, Capillary Refill Less than 3 Seconds Skin: No rashes, No breakdown Musculoskeletal: No Tenderness to Palpation of Joints or Extremities Neurological: Cranial nerves II-XII grossly intact, DTR 2+/4. No acute focal neurological deficit. Psych/Mental Status: Normal Affect, Appropriate. Weight / BMI Weight Weight: 141 lb 8.588 oz Body Mass Index (BMI) 28.5 ABG / Lab / Microbiology Data 03/22/24 06:15 03/23/24 05:56 Laboratory: Laboratory Results - last 24 hr 03/22/24 12:19: POC Glucose 269 H 03/22/24 16:49: POC Glucose 178 H 03/22/24 21:37: POC Glucose 192 H 03/23/24 05:56: Sodium 139, Potassium 3.8, Chloride 105, Carbon Dioxide 29.0, Anion Gap 5, BUN 18, Creatinine 0.68, Estim Creat Clear Calc 39.87, Est GFR (MDRD) Af Amer 105, Est GFR (MDRD) Non-Af 86, BUN/Creatinine Ratio 26.4 H, G lucose 150 H, Calcium 8.8, Phosphorus 3.6, Magnesium 2.1 03/23/24 06:28: POC Glucose 140 H Microbiology: Microbiology 03/22/24 00:45 Urine, Clean Catch Legionella Antigen - Final 03/22/24 00:45 Urine, Random Streptococcus pneumoniae Antigen (M - Final 03/21/24 20:35 Mucosa - Nose SARS-CoV-2, Influenza & RSV (PCR) - Final Radiography Diagnostic Testing: Radiology Impression Echocardiogram 03/21/24 23:02 Interpretation Summary Normal LV size. Left ventricular systolic function is normal. The left ventricular ejection fraction is 55 %. Mild concentric left ventricular hypertrophy. Bioprosthetic aortic valve. Mean aortic valve gradient 16 mmHg. Ordering Physician: Antwon Vidal Referring Physician: Murphy Burton Performed By: Karmen Munoz, CHACHA, RVT D/C Instructions DC O2, CPAP, BIPAP Needs RN Home O2 Qualification: Home O2 Qualification: Is the patient on home oxygen No 03/23/24 12:32 Home O2 Qualification: AT REST 1- Pulse Ox at rest 93 03/23/24 12:32 Home O2 Qualification: WITH AMBULATION 1- Pulse Ox with ambulation 94 03/23/24 12:32 1- Oxygen Flow Rate with 0 03/23/24 12:32 ambulation Home O2 Discharge instructions: No Meaningful Use Info Meaningful Use Meaningful Use Diagnoses (Choose all that apply): CHF CHF WILLIAM/ARB ordered at discharge?: Yes Documented LVEF (%): 55 Ischemic Stroke Statin Dosing Therapy Reference: STATIN DOSE THERAPY REFERENCE: * Patients > 75 years receive moderate or high dose statin therapy. * Patients 75 years or YOUNGER should receive HIGH intensity statin dose unless contraindicated. You will be required to document reason for non-treatment if statin daily dose does not meet guidelines. HIGH DOSE STATIN THERAPY DAILY Atorvastatin > than or = to 40 mg Rosuvastatin > than or = to 20 mg Amlodipine + Atorvastatin > than or = to 2.5/40 mg Ezetimibe + Simvastatin 10/80 mg Simvastatin 80mg Discharge Plan Admission Admit Date/Time: 03/21/24 22:52 Primary Reason for Your Visit: Heart failure exacerbation Attending Provider: Papi Ruiz Primary Care Provider: Murphy Burton Consulting Providers: Antwon Vidal; Pillo Cordero Instructions Additional Instructions / Restrictions: Advised to check blood pressure before taking Lasix or other antihypertensive medication, lisinopril and carvedilol Hold Lasix if cyst [place] blood pressure less than 120 mmHg Hold lisinopril and carvedilol if SBP less than 130 mmHg Advised to space out about 2 hours between 2 antihypertensive medication or Lasix. Discharge Orders/Prescriptions Prescriptions: New potassium chloride 20 mEq Tablet,Er Particles/Crystals 20 meq PO BIDCM 30 Days Qty: 60 0RF lisinopril 10 mg Tablet 10 mg PO BID 30 Days Qty: 60 2RF Rx Instructions: Hold for SBP less than 130 mmHg furosemide [Lasix] 40 mg tablet 40 mg PO BID 30 Days Qty: 60 2RF Rx Instructions: Hold for SBP less than 120 mmHg Continued vitamin B complex Capsule 1 cap PO DAILY [facility] 250-2.5-0.5 mg capsule 1 cap PO BID hydralazine 10 mg tablet 10 mg PO TID PRN (Reason: hypertension) Patient Comments: TAKE 1 TABLET BY MOUTH THREE TIMES DAILY NEEDED FOR BLOOD PRESSURE GREATER THAN 180 melatonin 1 mg tablet 1 mg PO HS PRN (Reason: sleep) Patient Comments: TAKE 1 TABLET BY MOUTH AT BEDTIME NEEDED sertraline 50 mg tablet 50 mg PO DAILY Patient Comments: TAKE 1 TABLET BY MOUTH ONCE DAILY lisinopril 10 mg tablet 10 mg PO QHS Qty: 90 3RF nitroglycerin 0.4 MG tablet 0.4 mg SUBLINGUAL Q5M PRN (Reason: Chest Pain) Qty: 20 1RF aspirin 81 MG tablet 81 mg PO DAILY Patient Comments: STATES WAS NOT TOLD TO STOP FOR SURGERY metformin 500 mg tablet 500 mg PO BID multivitamin with minerals Tablet 1 tab PO DAILY ezetimibe 10 mg tablet 10 mg PO DAILY carvedilol 12.5 mg tablet 25 mg PO BID Discontinued furosemide 20 mg tablet 20 mg PO DAILY Referrals / Follow Up: Murphy Burton DO [Primary Care Provider] - Pillo Cordero MD [Med Staff - Active Staff] - Within 1 Month Jeni Knox PA [Med Staff - Adv Practice Prof] - Within 2 Weeks Disposition Disposition (needs filled in before D/C Order can be placed): Home, Self Care Charges/Coding Visit Charges Inpatient E&M: 14479 Disch Hosp >30min
[2024-03-23 12:22] VITALS: BP 156/61; PULSE 71; RESP 17; TEMP 36.6; O2SAT 93
[2024-03-23 12:32] VITALS: O2SAT 93; O2SAT 94
[2024-03-23 12:52] LABS: Bedside Glucose 170 mg/dL (74-106)
== END 2024-03-23 15:43 | disposition home or self-care (01) | DRG 291 ==
LOC: ED 21:35 → PCU 23:05
PROVIDERS: Admitting Provider Internal Medicine; Emergency Provider Surgery; PCP Family Medicine; Visit Provider Internal Medicine
DX: I11.0 Hypertensive heart disease with heart failure (principal); I50.33 Acute on chronic diastolic (congestive) heart failure; E11.51 Type 2 diabetes mellitus with diabetic peripheral angiopathy without gangrene; Z95.2 Presence of prosthetic heart valve; F32.A Depression, unspecified; E66.9 Obesity, unspecified; E78.5 Hyperlipidemia, unspecified; I25.10 Atherosclerotic heart disease of native coronary artery without angina pectoris; E11.65 Type 2 diabetes mellitus with hyperglycemia; I34.81 Nonrheumatic mitral (valve) annulus calcification; Z68.30 Body mass index [BMI] 30.0-30.9, adult; Z11.52 Encounter for screening for COVID-19; M81.0 Age-related osteoporosis without current pathological fracture; Z79.82 Long term (current) use of aspirin; Z79.84 Long term (current) use of oral hypoglycemic drugs; Z79.899 Other long term (current) drug therapy; Z95.5 Presence of coronary angioplasty implant and graft; Z86.73 Personal history of transient ischemic attack (TIA), and cerebral infarction without residual deficits
CPT/HCPCS: 36415; 71045; 71046; 80048; 80053; 80061; 82803; 82962; 83036; 83605; 83735; 83880; 84100; 84443; 84484; 85025; 87449; 87631; 93005; 93306; 94640; 94668; 97116; 97162; 97166; 99285; A4216; J0696; J1940

== ENCOUNTER 2025-02-27 19:46 | Inpatient (IN) | payer OTHER, SELFPAY ==
[2020-12-17 08:26] VITALS: BMI 23.1
[2025-02-27] VITALS (22 sets, daily range): BP systolic 132–187; BP diastolic 59–84; PULSE 77–109; RESP 12–39; TEMP 36.3–36.9; O2SAT 94–100; BMI 30.4; BMI 28.0
--- NOTE | 2025-02-27 19:59 | EKG12_ITS ---
Test Reason : SOB Blood Pressure : */* mmHG Vent. Rate : 102 BPM Atrial Rate : 102 BPM P-R Int : 142 ms QRS Dur : 150 ms QT Int : 416 ms P-R-T Axes : 101 -14 100 degrees QTcB Int : 542 ms Sinus tachycardia Left bundle branch block Abnormal ECG baseline artifact Confirmed by Jemal Dover ([id number]), online content editor KEVIN REY ([id number]) on 03/01/2025 8:43:32 AM Referred By: Confirmed By: Jemal Dover
--- NOTE | 2025-02-27 20:21 | ED.VIS.DYS ---
HPI History of Present Illness Chief Complaint: Shortness of Breath Detail of Chief Complaint: Acute shortness of breath this evening per family Informant: family Onset/Context/Timing Onset: Hours Context: rest Timing: Continuous Quality: Positive for Dyspnea on exertion; Negative for Orthopnea Current Severity: Severe Maximum Severity: Severe Worsened by: Exertion Relieved by: Nothing Associated Symptoms cough; Negative for rhinorrhea, post nasal drip, ear pain, fever, sore throat, subjective, chills, sweats, clear sputum, white sputum, yellow sputum or green sputum Chest Pain: Positive for Aching and Pressure Narrative Narrative: Patient is an 89-year-old [facility] woman with history of coronary artery disease, essential hypertension, hyperlipidemia, type 2 diabetes, TIA, TAVR procedure who was brought to the emergency department because of acute onset of shortness of breath. She arrived with BiPAP on. Respiratory put her on our BiPAP. When I entered the room patient appears in distress. She is not able to speak at this moment. Family member informing that she abruptly got short of breath and had some discomfort in her chest. She has no history of PE or DVT. She does not complain of any leg pain, swelling or discoloration. She apparently had a slight cough which was nonproductive. According to [place] member she is able to lie flat in bed. Patient was seen by Joselo hummel nurse practitioner for the [facility] on February 07. She presented February 2022 with shortness of breath and was found to have severe coronary artery disease. Her EF at that time was 65%. She also had severe aortic valve stenosis. She was transferred to [facility] and underwent coronary bypass surgery and AVR evaluation. She had a drug-eluting stent placed in the mid RCA and mid LAD April 01, 2022. She was again seen after discharge from [facility] for shortness of breath and pulmonary edema. She was readmitted to [facility]. She ultimately had a TAVR procedure performed April 25, 2022. Echocardiogram post procedure revealed an EF of 50 to 55% with stage II diastolic dysfunction mean aortic valve gradient of 8 mm and a dimensionless valve index of 0.5. Patient had an echocardiogram March 22, 2024. LV was normal size. Left ventricular systolic function was normal. Left ventricular ejection fraction was 55%. She had mild concentric left ventricular hypertrophy. Bioprosthetic aortic valve was noted. Mean valve gradient was now 16 mmHg. Assessment for that visit was essential hypertension, history of TAVR procedure, bioprosthetic valve. Presence of stent in coronary artery. She also was noted to have carotid stenosis on the left status post carotid endarterectomy 2018. History is limited. Patient is in obvious respiratory distress. She appears pale slightly diaphoretic. She had incontinence of stool. Her breath sounds are symmetric. Breath sounds are diminished. There is some slight rales at the left base. Otherwise lungs are clear to auscultation. Heart is rapid and regular and reveals a sinus tachycardia on the monitor with a rate of 109. PE Risk Factors: Negative for Cancer, OCP + Smoking + > 35, Prior DVT or PE, Recent immobilization, Recent surgery or Recent travel Prior similar symptoms: Yes (Diagnosed with coronary artery disease) Recent Illness/Hospitalization: No PFSH PFS Medical History Moderate to severe aortic stenosis Depression Diabetes Osteoporosis Non-smoker Coronary artery disease Hypertension TIA (transient ischemic attack) Nonrheumatic aortic (valve) stenosis Essential hypertension Presence of stent in coronary artery (~04/04/22) Carotid stenosis, left Occlusion and stenosis of left carotid artery Nonrheumatic mitral (valve) insufficiency Aortic valve disorders Atherosclerotic heart disease of [place] coronary artery without angina pectoris HLD (hyperlipidemia) Occlusion and stenosis of right carotid artery PAD (peripheral artery disease) Home Medications ?Medication ?Instructions ?Recorded ?Last Taken ?Type aspirin 81 mg tablet,delayed 81 mg PO DAILY HEART HEALTH 04/28/18 03/20/22 History release omega-3 250 [id number] 2.5 1 cap PO BID EYE HEALTH 01/28/21 03/20/22 History mg-zeaxanthin 0.5 mg capsule ([facility]) vitamin B complex 1 cap PO DAILY SUPPLEMENT 01/28/21 03/20/22 History ezetimibe 10 mg tablet 10 mg PO DAILY CHOLESTEROL 03/20/22 03/20/22 History multivitamin with minerals 1 tab PO DAILY SUPPLEMENT 03/20/22 03/20/22 History hydralazine 10 mg tablet 10 mg PO TID PRN hypertension 05/15/22 02/27/25 19:00 History sertraline 50 mg tablet 50 mg PO DAILY 05/15/22 Unknown History potassium chloride 20 mEq 20 meq PO BIDCM 30 days #60 tabs 10/04/24 Unknown Rx tablet,extended release(part/cryst) furosemide 40 mg tablet (Lasix) 40 mg PO QAM 12/06/24 Unknown History lisinopril 10 mg tablet 10 mg PO DAILY 02/07/25 Unknown History lisinopril 10 mg tablet 20 mg PO QHS 02/07/25 Unknown History metformin 500 mg tablet 500 mg PO ONCE blood sugar 02/07/25 Unknown History Allergy/AdvReac Type Severity Reaction Status Date / Time rosuvastatin AdvReac Severe Myalgias Verified 02/27/25 20:00 simvastatin AdvReac Severe myalgias Verified 02/27/25 20:00 Family History Father CAD (coronary artery disease) Hypertension Myocardial infarction, Onset Age: 80 Sister CVA (cerebral vascular accident), Onset Age: 66 Diabetes Arthritis Mother Cancer Thyroid Surgical History History of transcatheter aortic valve replacement (TAVR) (~04/25/22) History of right and left heart catheterization (LHC) (~03/21/22) Presence of coronary angioplasty implant and graft (~07/10/16) History of left-sided carotid endarterectomy (05/05/17) History of hysterectomy History of CEA (carotid endarterectomy) (~2010) Social History Smoking Status: Never smoker second hand exposure: No alcohol intake: never substance use type: does not use caffeine: No ROS ROS ED Review of Systems ROS Unobtainable: due to mental status and other Details: Respiratory distress Constitutional Constitutional ED: Denies chills, fever(s), sweats or weight loss Eyes Eyes: Denies change in vision Cardiovascular Cardiovascular: Reports chest pain; Denies palpitations or racing heartbeat Respiratory/Chest Respiratory/Chest: Reports cough, dyspnea and dyspnea on exertion Gastrointestinal Gastrointestinal: Denies diarrhea, melena or vomiting Hematologic/Lymphatic Hematologic/Lymphatic: Denies easy bleeding or easy bruising EXAM Physical Exam Const Vital Signs: 02/27/25 19:49 02/27/25 19:49 02/27/25 19:51 Temperature 97.4 F L 97.4 F L Temperature Source Temporal Temporal Pulse Rate 109 H 107 H 106 H Respiratory Rate 19 H 39 H 28 H Respiratory Effort Respiratory Depth Respiratory Pattern Blood Pressure 171/78 H 171/78 H Blood Pressure Mean 109 109 Blood Pressure Source Blood Pressure Position Blood Pressure Location Pulse Ox 94 95 94 Oxygen Delivery Method Bi-pap Bi-pap Fraction of Inspired Oxygen (FIO2) 40 40 40 02/27/25 20:00 02/27/25 20:05 02/27/25 20:05 Temperature 97.4 F L Temperature Source Axillary Pulse Rate 107 H Respiratory Rate 39 H Respiratory Effort Short of Breath Labored Accessory Muscle Use Pursed Lip Short of Breath Labored Accessory Muscle Use Pursed Lip Respiratory Depth Shallow Respiratory Pattern Tachypnea Tachypnea Blood Pressure 171/78 H Blood Pressure Mean 109 Blood Pressure Source Blood Pressure Position Blood Pressure Location Pulse Ox 95 Oxygen Delivery Method Bi-pap Bi-pap Fraction of Inspired Oxygen (FIO2) 40 40 02/27/25 20:06 02/27/25 20:15 02/27/25 20:30 Temperature Temperature Source Pulse Rate 102 H 98 97 Respiratory Rate 20 H 23 H 19 H Respiratory Effort Respiratory Depth Respiratory Pattern Blood Pressure 180/74 H 153/78 H Blood Pressure Mean 105 98 Blood Pressure Source Blood Pressure Position Blood Pressure Location Pulse Ox 97 95 97 Oxygen Delivery Method Bi-pap Fraction of Inspired Oxygen (FIO2) 40 02/27/25 20:45 02/27/25 21:00 02/27/25 21:04 Temperature 98.4 F Temperature Source Axillary Pulse Rate 85 85 Respiratory Rate 16 Respiratory Effort Respiratory Depth Respiratory Pattern Blood Pressure 144/60 H 150/63 H 150/63 H Blood Pressure Mean 86 87 92 Blood Pressure Source Monitor Blood Pressure Position Semi-Fowlers Blood Pressure Location Left Arm Pulse Ox 97 Oxygen Delivery Method Bi-pap Fraction of Inspired Oxygen (FIO2) 40 02/27/25 21:12 02/27/25 21:14 02/27/25 21:15 Temperature Temperature Source Pulse Rate 83 83 83 Respiratory Rate 18 21 H 17 Respiratory Effort Respiratory Depth Respiratory Pattern Blood Pressure 138/62 H 138/62 H 132/61 H Blood Pressure Mean 85 87 82 Blood Pressure Source Blood Pressure Position Blood Pressure Location Pulse Ox 96 96 96 Oxygen Delivery Method Bi-pap Bi-pap Bi-pap Fraction of Inspired Oxygen (FIO2) 40 40 40 02/27/25 21:30 Temperature Temperature Source Pulse Rate 83 Respiratory Rate 19 H Respiratory Effort Respiratory Depth Respiratory Pattern Blood Pressure 134/59 H Blood Pressure Mean 81 Blood Pressure Source Blood Pressure Position Blood Pressure Location Pulse Ox 98 Oxygen Delivery Method Bi-pap Fraction of Inspired Oxygen (FIO2) 40 Positive well nourished and well developed Constitutional Narrative: Patient is tachycardic respiratory distress on BiPAP. She is tachypneic. Axillary temperature was 97.4. Blood pressure slightly elevated. Family Mircette her blood pressure was high. She gave her Apresoline because the blood pressure monitor read high. General Appearance ED: well developed and pallor HEENT Reports moist mucous membranes atraumatic; Negative for tenderness Eyes PERRL and EOMs intact bilaterally General Eye ED: Yes pale conjunctiva; Negative for scleral icterus Neck no lymphadenopathy, supple and no meningeal signs Resp No normal respiratory effort and No clear to auscultation bilaterally Auscultation: rales left base Cardio regular rhythm, S1 normal heart sound, S2 normal heart sound and no murmurs Rate: tachycardic GI non-tender, non-distended and no masses Auscultation: normoactive bowel sounds Back/Spine normal to inspection Extremity normal to inspection Extremity Narrative: There is no clubbing, cyanosis or mottling of her extremities. There is no edema of her lower extremities. Neuro Neuro Narrative: She moves all extremities. She is attentive to what I am asking of her. She presently is unable to answer questions because of her respiratory distress. Psych Psych Narrative: Presumed normal Skin no wounds and No skin turgor normal General Skin Exam: pallor Sepsis Attestation Sepsis Alert: Yes Sepsis Attestation: Sepsis Ruled Out (Patient's history is consistent with sepsis. As of 2021 uncertain the cause of her illness. Patient is being admitted for congestive heart failure.) Date exam was performed: 02/27/25 MDM MDM MDM Narrative Medical decision making narrative: Differential diagnosis is acute ischemia based on prior history, pulmonary embolus, pneumothorax, congestive heart failure. Doubt pneumonia because it occurred so abruptly. She does have a history of community-acquired pneumonia. Because she appears pale CBC was obtained assess white count as well as H&H. Competence of metabolic panel to assess renal function, CO2 anion gap and electrolytes. Serial troponin levels and BNP. If there is no explanation for her abrupt onset of shortness of breath from a cardiac standpoint will obtain CTA of the chest to evaluate for pulmonary embolus. History & Record Review Additional record(s) reviewed:: Prior inpatient record, Prior outpatient record, Prior ED visit and Other (Records from outside facility and office visits are documented in the HPI narrative.) Lab Data Attestation: I reviewed the patient's lab results. Lab results narrative: I consulted 14.7 thousand with no shift. Blood sugar is elevated to 49. Labs: Laboratory Results - last 24 hr 02/27/25 02/27/25 20:00 20:08 WBC 14.7 H RBC 4.60 Hgb 13.1 Hct 40.7 MCV 88.5 MCH 28.5 MCHC 32.2 RDW Std Deviation 41.1 RDW Coeff of Jennifer 12.7 Plt Count 229 MPV 10.8 Immature Gran % (Auto) 0.500 Neut % (Auto) 62.0 Lymph % (Auto) 26.1 Mccreary % (Auto) 8.1 Eos % (Auto) 2.8 Baso % (Auto) 0.5 Absolute Neuts (auto) 9.1 H Absolute Lymphs (auto) 3.83 Nucleated RBC % 0 Sodium 139 Potassium 3.9 Chloride 100 Carbon Dioxide 23.9 Anion Gap 15 BUN 31 H Creatinine 1.13 Estim Creat Clear Calc 29.12 L Est GFR (MDRD) Non-Af 47 L BUN/Creatinine Ratio 27.2 H Glucose 255 H Lactic Acid 1.4 Calcium 9.4 Total Bilirubin 0.29 AST 33 H ALT 31 Alkaline Phosphatase 95 Troponin T High Sens 45 H NT pro BNP II 718 Total Protein 7.3 Albumin 4.4 Globulin 2.9 Albumin/Globulin Ratio 1.5 POC Glucose 249 H ABG Data ABG results: ABG 02/27/25 20:26 Specimen Type ART Sample Site R Radial pH 7.34 L Bicarbonate Actual 23.5 Total CO2 25 Base Excess -2 O2 Saturation 88 L O2 % 40.0 ABG pCO2 43.2 ABG pO2 59 L David Test Positive O2 Delivery Device BiPAP Vent Mode Not entered Clinical Comments 15. 6. 40% Radiography Chest X-Ray - ED: 1 View and Read by ED Physician (Single view chest x-ray reveals evidence of congestive heart failure with bilateral pleural effusion. Cardiac silhouette and size are unremarkable. Hilum is unremarkable. Osseous structures with no acute process.) Diagnostic Testing: Clinical Impression(s) from Imaging Studies Chest X-Ray 02/27/25 20:25 IMPRESSION: CHF with small bilateral layering pleural effusions. Reading Location: [facility] EKG Initial EKG: Attestation: I personally reviewed and interpreted this EKG as follows: Interpretation: Sinus Tachycardia (Sinus tachycardia rate of 102. There is left bundle branch block. VA interval is 142 ms. QRS duration 150 ms. QT duration 416 ms. There is artifact as well as ST-T wave changes due to the left bundle branch block. There is no obvious ischemic changes noted. Will need to obtain old for compari) and RBBB Management Discussion w/another healthcare provider: Hospitalist ( spoke with Dr. Narendra Short. He is made aware of patient history, physical exam, prior history and reason for admission. ICU admit) Treatment and Re-Evaluation :: Because of patient elevated blood pressure and the fact recent heart failure she was darted on nitro drip for preload and afterload reduction. Goal is to reduce the amount of work so that her breathing improves and patient does not progress requiring intubation. Critical Care Time Critical Care Time: Yes Critical care time (excluding procedures): 30-74 minutes (37), Including time spent: (History, physical, documentation, review of prior records including prior hospitalizations and outpatient records. Independent or potation of laboratory results and treatment for respiratory failure due to congestive heart failure), Discussing w/Patient &/or Family/Physical Integration Practitioner, Discussing w/Consultants and Arranging Admission or Transfer Discharge Plan Dx/Rx/DC Orders Clinical Impression: Acute hypoxemic respiratory failure, Acute exacerbation of CHF (congestive heart failure), Hypertensive urgency, Prerenal azotemia, Elevated troponin, Presence of stent in coronary artery, History of transcatheter aortic valve replacement (TAVR), HLD (hyperlipidemia) Disposition Disposition: Acute Care Hospital [facility]
[2025-02-27 20:24] LABS: Hematocrit 40.7 % (37-47); Hemoglobin 13.1 g/dL (12.0-15.0); Immature Granulocytes Count 0.080 X10^3/uL (0.0-0.0); Mean Corp Hgb Conc 32.2 g/dL (32-36); Mean Corpuscular Volume 88.5 fL (81-99); Mean Platelet Vol. 10.8 fl (6.2-12.0); NRBC Flagged by Analyzer 0 % (0-5); Platelet Count 229 K/mm3 (150-450); RBC Distribution Width CV 12.7 % (11.6-14.6); RBC Distribution Width SD 41.1 fl (35.1-43.9); Red Blood Count 4.60 M/mm3 (4.2-5.4); White Blood Count 14.7 K/mm3 (4.4-11.0)
--- NOTE | 2025-02-27 20:25 | RAD_ITS ---
PROCEDURE: CHEST 1 VIEW (PORTABLE) 02/27/2025 REASON FOR EXAM: RESPIRATORY DISTRESS TECHNIQUE: Frontal view of the chest. 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 Small bibasilar layering pleural effusions. Heart/Mediastinum: Mildly enlarged. TAVR hardware. Coarsely calcified thoracic aorta. Bones/Soft tissues: Multilevel degenerative changes of the spine. RAD/Chest 1 View (Portable) IMPRESSION: CHF with small bilateral layering pleural effusions. Reading Location: [id number]
[2025-02-27 20:29] LABS: Allen Test Positive; Base Excess -2 mmol/L (-2 to +2); FI02 40.0; PO2 59 mmHG (75-100); SITE R Radial; SO2 88 % (94-98)
--- NOTE | 2025-02-27 20:51 | ED.RN ---
PT. TRIGGERED SEPSIS W/ NO ANTIBIOTICS ORDERED. PROVIDER RESPONSE NO CANCEL IT. SHE IS IN HEART FAILURE
[2025-02-27] MEDS: Nitroglycerin Infusion 250 ML 3 MG CONT INF (21:04)
[2025-02-27 21:11] LABS: AST(SGOT) 33 U/L (<=31); Alanine Aminotransfer ALT/SGPT 31 U/L (<=34); Albumin, Serum 4.4 g/dL (3.4-4.8); Alkaline Phosphatase 95 U/L (35-104); Anion Gap 15 (5-15); BUN 31 mg/dL (4-19); BUN/Creat Ratio 27.2 RATIO (10-20); Calcium,Total 9.4 mg/dL (7.6-11.0); Carbon Dioxide 23.9 mmol/L (21.0-32.0); Chloride 100 mmol/L (98-108); Estimated Creatinine Clearance 29.12 ml/min (50-250); Globulin 2.9 g/dL (2.2-4.2); Glucose 255 mg/dL (70-99); Potassium 3.9 mmol/L (3.3-5.1); Pro- Brain NATRIURETIC PEPTIDE 718 pg/mL (<=1800); Troponin T High Sensitivity 45 ng/L (<=14)
--- OUTSIDE RECORDS SUMMARY | 2025-02-27 22:00 | XMS RPT_ITS | CCD ---
Author Organization [facility] Care Team Providers Care Attendance Officer Name Role Phone Christine RN, Jessica Louis Unavailable Unavailable FRANCISCO Stafford, Alla Ramirez Unavailable Unavailabl onra Stafford RN, Alla Ramirez Unavailable Unavailabl e Christine RN, Jessica A Unavailable Unavailable Christine RN, Jessica A Unavailable Unavailable Christine RN, Jessica A Unavailable Unavailable Christine SINGH, Jessica A Unavailable Unavailable MD Samir, Dontrell Brock Unavailable FRANCISCO Stafford, Alla Ramirez Unavailable Unavailabl Jenny Ghosh Unavailable Unavailable Jenny King Unavailable Unavailable FRANCISCO Stafford, Alla Ramirez Unavailable Unavailabl e Joe Dormanumi Y Unavailable Unavailable Roof LEATHER BELT SHAPER, [facility] Unavailable Jenny King Unavailable Unavailable Christine SINGH, Jessica Louis Unavailable Unavailable MD Samir, Dontrell Brock Unavailable Jose Dorman Unavailable Unavailable Dr. Murphy Burton Primary Care Provider [phone] Murphy Burton Referring Provider Abilio ZIMMERMAN, PA Jeni Ramirez Attending Provider Dr. Narendra Almonte Attending Provider Dr. Helio Espinoza Emergency Provider Dr. Shy Callejas Admit Provider Dr. Shy Callejas Attending Provider Dr. Shy Callejas Other Provider Dr. Yuli Lucas Other Provider Dr. Yuli Lucas Attending Provider Dr. Antwon Malin Attending Provider Unavailable Kimo, Dr. Kapoor Other Provider Unavailable Wicho, Dr. Almaraz Other Provider Dr. Escobar Rojas Attending Provider Dr. Sung Sands Attending Provider Murphy Burton MD Primary Care Provider Jeni Garnett Attending Provider Unavailable YOSELIN CLINTON Attending Unavailable YOSELIN CLINTON Referring Unavailable PATRICIA SCHRADER Admitting Unavailable JOSEPHINE, MURPHY L Primary Care Unavailable JOSEPHINE, MURPHY L Primary Care Unavailable O'CHRISTOPHER, JACINTA E Attending Unavailable O'CHRISTOPHER, JACINTA E Referring Unavailable MAZZAFERRI JR., EDER Lopez Attending Unavail able MAZZAFERRI JR., EDER L Referring Unavail able JOSEPHINE, MURPHY L Primary Care Unavailable MAZZAFERRI JR., EDER Lopez Attending Unavail able MAZZAFERRI JR., EDER John Referring Unavail able JOSEPHINE, MURPHY L Primary Care Unavailable O'CHRISTOPHER, JACINTA E Attending Unavailable O'CHRISTOPHER, JACINTA E Referring Unavailable JOSEPHINE, MURPHY L Primary Care Unavailable O'CHRISTOPHER, JACINTA E Referring Unavailable SUSHIL CARR Attending Unavailable JOSEPHINE, MURPHY L Primary Care Unavailable CONSULT, SURGERY - CARDIAC Consulting Unava ilable DONTRELL WHITING Primary Care Unavailable ELVIAZAFERTC GREEN., EDER L Attending Unavail able YULI LUCAS Referring Unavailable SABAS PETERSEN Admitting Unavailable LINO PORTILLO Admitting Unavailable LINO PORTILLO Attending Unavailable CHRISTIE BOLAND Referring Unavailable JOSEPHINE, MURPHY L Primary Care Unavailable RENO CURRY Referring Unavailable KAILEY PANIAGUA Attending Unavailable PATRICIA SCHRADER Admitting Unavailable JOSEPHINE, MURPHY L Primary Care Unavailable Dr. Murphy Burton DO Primary Care Provider Dr. Murphy Burton DO Referring Provider [phone] Jeni Grijalva Attending Provider Murphy Burton Referring Unavailable Josephine Murphy Primary Care Unavailable Abimael, Pillo Attending Unavailable Josephine, Murphy Primary Care Unavailable Josephine, Murphy Referring Unavailable Jeni Grijalva Attending Unavail able Josephine, Murphy Primary Care Unavailable Josephine, Murphy Referring Unavailable Jeni Grijalva Attending Unavail able Josephine, Murphy Primary Care Unavailable Josephine, Murphy Referring Unavailable Alexander BAE, Joselo Beal Attending Unavailable Josephine, Murphy Primary Care Unavailable Pillo Cordero Attending Unavailable Antwon Vidal Consulting Unavailable Josephine, Murphy Primary Care Unavailable Antwon Vidal Admitting Unavailable Antwon Vidal Attending Unavailable Papi Ruiz Attending Unavailable Abimael, [place] Consulting Unavailable Joseph Papi Consulting Unavailable Antwon Vidal Admitting Unavailable Josephine, Murphy Primary Care Unavailable Papi Ruiz Attending Unavailable Antwon Vidal Consulting Unavailable Abimael Pillo Consulting Unavailable Abimael, [place] Attending Unavailable Josephine, Murphy Primary Care Unavailable Josephine, Murphy Referring Unavailable Jeni Grijalva Attending Unavail able Allergies Allergy Classification Reported Allergen(s) Allergy Type Date of Onset Reaction(s) Facility (7 sources) rosuvastatin Drug Allergy 2 Myalgias [facility] (7 sources) Simvastatin Drug Allergy 2 myalgias [facility] (3 sources) Hmg-Coa Reductase Inhibitors (Statins) Propensity to adverse reactions to drug 2 Muscle Spasm, Pain [facility] (1 source) rosuvastatin Drug Allergy 5 [facility] (1 source) Simvastatin Drug Allergy 5 [facility] Medications Current Medications Medication Drug Class(es) Dates Sig (Normalized) Sig (Original) B Complex Vitamins (B COMPLEX 1 PO) (3 sources) B Complex Vitami ns (B COMPLEX 1 PO) Take 1 tablet by mouth daily. 0 Active B Complex Vitami ns (B COMPLEX 1 PO) Take by mouth. 0 Active ezetimibe 10 mg oral tablet (19 sources) Dietary Cholesterol Absorption Inhibitor Start: 12-13-2020 End: 04-27-2022 take 1 tablet by mouth once daily Ezetimibe 10 mg tablet Active 10 mg PO DAILY March 20, 2022 2:09pm CHOLESTEROL furosemide 40 mg oral tablet (20 sources) Loop Diuretic Start: 12-06-2024 Furosemide (La six) 40 mg tablet Active 40 mg PO EVERY MORNING December 06, 2024 9:07am Hold for SBP less than 120 mmHg Start: 03-23-2024 End: 12-06-2024 Furosemide (Lasix) 40 mg tab let Discontinued 40 mg PO TWICE A DAY 90 3 April 25, 2024 4:02pm December 06, 2024 9:10am Hold for SBP less than 120 mmHg Start: 03-21-2024 End: 03-23-2024 take 1 tablet by mouth once daily Furosemide 20 mg tablet Discontinued 20 mg PO DAILY March 21, 2024 1:00am March 23, 2024 11:31am Start: 05-15-2022 End: 07-01-2023 take 1 tablet by mouth once daily Furosemide 20 mg tablet Discontinued 20 mg PO DAILY May 15, 2022 1:00am July 01, 2023 9:16am Start: 04-26-2022 End: 04-26-2022 furOSEmide (LASIX) injection 20 mg Start: 04-26-2022 End: 04-27-2022 take 1 tablet by mouth once daily furOSEmide 20 MG tablet Take 1 tablet by mouth daily. 30 tablet 2 04/28/2022 Active Start: 03-29-2022 End: 04-03-2022 furOSEmide (LASIX) tablet 20 mg Start: 05-10-2018 End: 05-20-2019 take 1 tablet by mouth once daily Furosemide 40 mg tablet Discontinued 40 mg PO DAILY 90 3 July 22, 2018 3:11pm October 06, 2018 2:35pm hydrALAZINE hydrochloride 10 mg oral tablet (10 sources) Arteriolar Vasodilator Start: 04-27-2022 take 1 tablet by mouth three times daily as needed for hypertension Hydralazine 10 mg tablet Active 10 mg PO THREE TIMES A DAY as needed for hypertension May 15, 2022 1:00am Start: 04-25-2022 End: 04-25-2022 hydrALAZINE (APRESOLINE) injection 5 mg Start: 04-21-2022 End: 04-21-2022 hydrALAZINE (APRESOLINE) injection 5 mg Start: 04-20-2022 End: 04-20-2022 hydrALAZINE (APRESOLINE) injection 10 mg Start: 04-04-2022 End: 04-04-2022 hydrALAZINE (APRESOLINE) tab let 25 mg Start: 03-30-2022 End: 04-03-2022 take 5 mg intravenously every six hours as needed hydrALAZINE (APRESOLINE) injection 5 mg lisinopril 10 mg oral tablet (20 sources) Angiotensin Converting Enzyme Inhibitor Start: 10-04-2024 End: 10-04-2024 Lisinopril 10 mg tablet Active 10 mg PO TWICE A DAY 180 3 October 04, 2024 4:32pm Hold for SBP less than 130 mmHg Start: 04-22-2024 End: 10-04-2024 Lisinopril 10 mg tablet Disc ontinued 10 mg PO daily October 04, 2024 4:05pm October 04, 2024 4:31pm Hold for SBP less than 130 mmHg Start: 03-23-2024 End: 04-22-2024 Lisinopril 10 mg tablet Disc ontinued 10 mg PO TWICE A DAY 180 April 07, 2024 11:53am April 22, 2024 2:30pm Hold for SBP less than 130 mmHg Start: 02-16-2024 End: 03-23-2024 take 1 tablet by mouth at bedtime Lisinopril 10 mg tablet Discontinued 10 mg PO AT BEDTIME 90 February 16, 2024 10:55am March 23, 2024 3:15pm Start: 12-23-2022 End: 02-16-2024 take 1 tablet by mouth at bedtime Lisinopril 5 mg tablet Discontinued 5 mg PO AT BEDTIME 90 3 December 23, 2022 11:04am February 16, 2024 10:56am Start: 03-31-2022 End: 04-01-2022 Lisinopril (PRINIVIL) tablet 10 mg Start: 12-12-2020 End: 04-07-2022 take 1 tablet by mouth twice daily Lisinopril 5 mg tablet Discontinued 5 mg PO TWICE A DAY December 12, 2020 12:02am April 07, 2022 11:45am BLOOD PRESSURE Start: 11-07-2020 End: 12-12-2020 take 1 tablet by mouth once daily Lisinopril 5 mg tablet Discontinued 5 mg PO DAILY 90 3 November 07, 2020 2:38pm December 12, 2020 12:03am Start: 02-29-2020 End: 11-07-2020 take 1 tablet by mouth once daily Lisinopril 2.5 mg tablet Discontinued 2.5 mg PO DAILY 90 February 29, 2020 1:00am November 07, 2020 2:06pm Start: 09-23-2018 End: 02-29-2020 take 2.5 mg by mouth once daily Lisinopril Discontinue d 2.5 MG PO DAILY September 23, 2018 5:09pm February 29, 2020 3:55pm Start: 05-17-2018 End: 02-29-2020 take 1 tablet by mouth once daily Lisinopril 5 mg tablet Discontinued 2.5 mg PO DAILY 90 September 23, 2018 6:09pm February 29, 2020 4:55pm Pt cutting pill in half d/t lightheaded/low bp Start: 03-04-2017 End: 04-28-2018 take 1 tablet by mouth twice daily Lisinopril 20 mg tablet Discontinued 20 mg PO TWICE A DAY 180 October 19, 2017 11:05am April 28, 2018 2:26pm Start: 07-18-2016 take 1 tablet by claudio th twice daily LISINOPRIL 20 MG TABS One tablet by mouth twice daily LISINOPRIL [id number] Dontrell Dawson MD Start: 07-11-2016 End: 03-04-2017 take 1 tablet by mouth once daily Lisinopril 20 MG tablet Discontinued 20 mg PO DAILY 30 July 11, 2016 10:50am March 04, 2017 4:06pm lutein 2.5 mg / omega-3 acid ethyl esters ([facility]) 250 mg / zeaxanthin 0.5 mg oral capsule (8 sources) Start: 01-28-2021 End: 04-03-2022 Neyau-1-Koe-Ufl-Max-Kgtcpjay in ([facility]) 250-2.5-0.5 mg capsule Active 1 NMA PO TWICE A DAY January 28, 2021 12:00am [facility] Multiple Vitamins-Minerals (Multivitamin & Mineral) Liquid (3 sources) Multiple Vitamin s-Minerals (Multivitamin & Mineral) Liquid Take 1 fluid ounce by mouth daily. 0 Active Multivitamin With Minerals (5 sources) Start: 12-22-2022 take 1 tablet by mouth once daily Multivitamin With Minerals Active 1 TABLET PO DAILY March 20, 2022 12:00am Multivitamin With Minerals Tablet (2 sources) Start: 03-20-2022 Multivitamin With Minerals T ablet Active 1 {tbl} PO DAILY March 20, 2022 1:00am SUPPLEMENT OMEGA 3-BDEAFK-RRQNFRNHOT PO (3 sources) OMEGA 3-LUTEIN-Z EAXANTHIN PO Take 0.5 fluid ounces by mouth 2 times daily. 0 Active [place]-3 Fatty Acids (OMEGA-3 FISH OIL PO) (3 sources) take 2 capsules by mouth once daily [place]-3 Fatty Acids (OMEGA-3 FISH OIL PO) Take 2 capsules by mouth daily. 0 Active microencapsulated potassium chloride 20 meq extended release oral tablet (5 sources) Start: 03-23-2024 End: 10-04-2024 take 1 tablet by mouth twice daily at mealtime Potassium Chloride 20 mEq tablet,ER particles/crystals Active 20 meq PO TWICE DAILY WITH MEALS 60 30 0 October 04, 2024 4:31pm only use when you take your lasix Start: 03-28-2022 End: 04-05-2022 Potassium chloride (K-DUR) t ablet ER 40-60 mEq sertraline 50 mg oral tablet (20 sources) Serotonin Reuptake Inhibitor Start: 05-15-2022 take 1 tablet by mouth once daily Sertraline 50 mg tablet Active 50 mg PO DAILY May 15, 2022 1:00am Start: 04-27-2022 End: 04-27-2022 take 1 tablet by mouth once daily Sertraline 50 mg tablet Active 50 mg PO DAILY May 15, 2022 1:00am Start: 04-20-2022 End: 04-26-2022 Sertraline (ZOLOFT) tablet 2 5 mg Start: 03-29-2022 End: 04-05-2022 take 25 mg by mouth once daily 25 mg, Oral, DAILY, [facility] dose on 03/29/22 at 0900, Until Discontinued Start: 03-20-2022 End: 05-15-2022 take 1 tablet by mouth at bedtime Sertraline 25 mg tablet Discontinued 25 mg PO AT BEDTIME March 20, 2022 1:00am May 15, 2022 10:58am DEPRESSION Start: 03-09-2017 End: 11-07-2020 take 1 tablet by mouth at bedtime Sertraline 50 mg tablet Discontinued 50 mg PO AT BEDTIME March 09, 2017 1:00am November 07, 2020 2:08pm MOOD Vitamin B Complex (5 sources) Start: 01-28-2021 take 1 capsule by mouth once daily Vitamin B Complex Active 1 CAP PO DAILY January 27, 2021 11:00pm Vitamin B Complex capsule (2 sources) Start: 01-28-2021 Vitamin B Comp aurelio capsule Active 1 NMA PO DAILY January 28, 2021 12:00am SUPPLEMENT Completed/Discontinued Medications Medication Drug Class(es) Dates Sig (Normalized) Sig (Original) acetaminophen 325 mg oral tablet (8 sources) Start: 04-01-2022 End: 04-05-2022 take 1 tablet by mouth every six hours as needed Acetaminophen (TYLENOL) tablet 325 mg Start: 05-06-2018 End: 11-07-2020 Acetaminophen 325 MG tablet Discontinued 650 mg PO NEEDED as needed for Pain May 06, 2018 1:00am November 07, 2020 2:07pm Start: 05-06-2018 End: 11-07-2020 Acetaminophen Discontinued 6 50 MG PO NEEDED May 06, 2018 12:00am November 07, 2020 1:07pm acetaminophen 325 mg / HYDROcodone bitartrate 5 mg oral tablet (8 sources) Opioid Agonist Start: 04-25-2022 End: 04-27-2022 take 1 tablet by mouth every six hours as needed hydroCODone-acetaminophen (NORCO) 5-325 MG per tablet 1 tablet Start: 05-05-2018 End: 05-07-2018 Hydrocodone-Acetaminophen 1 TABLET tablet Discontinued 1 {tbl} PO EVERY 6 HOURS NEEDED as needed for Pain 6 2 0 May 05, 2018 1:00am May 06, 2018 1:00am May 07, 2018 1:17am Postoperative pain Other acute postprocedural pain Start: 05-05-2018 End: 05-07-2018 take 1 tablet by mouth every six hours as needed Hydrocodone-Acetaminophen Discontinued 1 TABLET PO EVERY 6 HOURS NEEDED 6 2 May 05, 2018 12:00am May 07, 2018 12:17am aspirin 81 mg chewable tablet (20 sources) Nonsteroidal Anti-inflammatory Drug Start: 04-20-2022 End: 04-27-2022 aspirin chewable tablet 81 mg Start: 03-29-2022 End: 04-05-2022 take 81 mg by mouth once daily 81 mg, Oral, DAILY, [facility] dose on 03/29/22 at 0900, Until Discontinued Start: 07-11-2016 End: 04-28-2018 take 1 tablet by mouth once daily Aspirin 81 MG tablet Active 81 mg PO DAILY April 28, 2018 2:26pm [facility] atorvastatin 20 mg oral tablet (20 sources) HMG-CoA Reductase Inhibitor Start: 07-11-2016 End: 03-06-2017 take 1 tablet by mouth at bedtime Atorvastatin 20 MG tablet Discontinued 20 mg PO AT BEDTIME 30 July 11, 2016 10:50am March 06, 2017 9:04pm B Complex capsule 1 capsule (1 source) Start: 04-20-2022 End: 04-27-2022 take 1 capsule by mouth once daily 1 capsule, Oral, DAILY, First dose on 04/20/22 at 0900, Until Discontinued carvedilol 25 mg oral tablet (20 sources) alpha-Adrenergic Juan, beta-Adrenergic Juan Start: 10-04-2024 End: 10-04-2024 take 1 tablet by mouth once daily at mealtime Carvedilol 25 mg tablet Discontinued 25 mg PO DAILY October 04, 2024 4:04pm October 04, 2024 4:30pm must administer with a meal/food Start: 04-07-2024 End: 10-04-2024 take 1 tablet by mouth twice daily at mealtime Carvedilol 25 mg tablet Discontinued 25 mg PO TWICE A DAY 180 April 07, 2024 1:00am October 04, 2024 4:07pm must administer with a meal/food Start: 03-21-2024 End: 04-07-2024 take 2 tablets by mouth twice daily Carvedilol 12.5 mg tablet Discontinued 25 mg PO TWICE A DAY March 21, 2024 1:00am April 07, 2024 11:55am Start: 02-16-2024 End: 03-21-2024 take 1 tablet by mouth once daily Carvedilol 12.5 mg tablet Discontinued 12.5 mg PO DAILY 120 February 16, 2024 10:56am March 21, 2024 9:26pm Start: 02-16-2024 End: 02-16-2024 Carvedilol 25 mg tablet Discontinued 12.5 mg PO DAILY February 16, 2024 10:30am February 16, 2024 10:56am Start: 07-01-2023 End: 02-16-2024 take 1 tablet by mouth twice daily Carvedilol 25 mg tablet Discontinued 25 mg PO TWICE A DAY July 01, 2023 9:17am February 16, 2024 10:31am Start: 12-23-2022 End: 07-01-2023 take 0.5 tablet by mouth once daily, then take 1 tablet by mouth once daily in the morning Carvedilol 25 mg tablet Discontinued 25 mg PO TWICE A DAY December 23, 2022 10:35am July 01, 2023 9:19am per patient, she takes 1/2 qam 1 qpm Start: 05-15-2022 End: 12-23-2022 take 1 tablet by mouth twice daily Carvedilol 25 mg tablet Discontinued 25 mg PO TWICE A DAY May 15, 2022 1:00am December 23, 2022 10:34am Start: 04-21-2022 End: 04-27-2022 take 1 tablet by mouth every twelve hours carveDILOL 25 MG tablet Take 1 tablet by mouth every 12 hours. 60 tablet 2 04/28/2022 Active Start: 04-20-2022 End: 04-21-2022 carveDILOL (COREG) tablet 12 .5 mg Start: 04-20-2022 End: 04-20-2022 take 25 mg by mouth every twelve hours 25 mg, Oral, EVERY 12 HOURS, First dose on 04/20/22 at 0900, Until Discontinued Start: 04-19-2022 End: 04-27-2022 take 2 tablets by mouth every twelve hours carveDILOL 12.5 MG tablet Take 2 tablets by mouth every 12 hours. 60 tablet 3 04/19/2022 04/27/2022 Discontinued (Stop Taking at Discharge) Start: 04-07-2022 End: 05-15-2022 take 2 tablets by mouth twice daily at mealtime Carvedilol 12.5 mg tablet Discontinued 25 mg PO TWICE A DAY April 07, 2022 1:00am May 15, 2022 10:58am Presence of stent in coronary artery Presence of coronary angioplasty implant and graft must administer with a meal/food Start: 04-07-2022 take 25 mg by mouth twice daily at mealtime Carvedilol Active 25 MG PO TWICE A DAY April 07, 2022 12:00am must administer with a meal/food Start: 04-07-2022 take 12.5 mg by mout h twice daily at mealtime Carvedilol Active 12.5 MG PO TWICE A DAY April 07, 2022 12:00am must administer with a meal/food Start: 04-04-2022 End: 04-05-2022 take 1 tablet by mouth every twelve hours carveDILOL 12.5 MG tablet Take 1 tablet by mouth every 12 hours. 60 tablet 3 04/05/2022 Active Start: 04-03-2022 End: 04-04-2022 carveDILOL (COREG) tablet 6. 25 mg castor oil 0.788 mg/mg / ugandan balsam 0.087 mg/mg topical ointment (1 source) Standardized Chemical Allergen Start: 04-25-2022 End: 04-27-2022 balsam-castor oil (VENELEX) ointment 1 Application ceFAZolin 2000 mg injection (2 sources) Cephalosporin Antibacterial Start: 04-25-2022 End: 04-26-2022 take 2 g intravenously every eight hours ceFAZolin (ANCEF) 2 g in dextrose 100 mL premix IVPB cholecalciferol 0.125 mg oral tablet (10 sources) Vitamin D Start: 04-20-2022 End: 04-27-2022 take 5000 [IU] by mouth once daily 5,000 Units, Oral, DAILY, First dose on 04/20/22 at 0900, Until Discontinued Start: 09-28-2017 End: 04-28-2018 take 1 capsule by mouth once daily Cholecalciferol (Vitamin D3) 2,000 unit capsule Discontinued 2000 U PO daily 30 September 28, 2017 12:00am April 28, 2018 2:26pm take 1 tablet by claudio th once daily CHOLECALCIFEROL PO Take 1 tablet by mouth daily. 0 Active clopidogrel 75 mg oral tablet (20 sources) [id number] Platelet Inhibitor Start: 05-10-2018 End: 02-16-2024 take 1 tablet by mouth once daily Clopidogrel 75 mg tablet Discontinued 75 mg PO DAILY 90 3 November 12, 2020 4:26pm March 20, 2022 2:09pm Start: 07-11-2016 End: 04-28-2018 take 1 tablet by mouth once daily Clopidogrel 75 mg tablet Discontinued 75 mg PO DAILY 90 3 January 27, 2018 3:33pm April 28, 2018 2:26pm Currently On Atb For Respiratory (7 sources) Start: 07-08-2016 End: 09-28-2017 Currently On Atb For Respira tory Discontinued July 08, 2016 12:00am September 28, 2017 1:09pm Start: 07-08-2016 End: 09-28-2017 Currently On Atb For Respira tory Discontinued July 07, 2016 11:00pm September 28, 2017 12:09pm docusate sodium 100 mg oral capsule (1 source) Start: 04-20-2022 End: 04-27-2022 Docusate (COLACE) capsule 100 mg 0.4 ml enoxaparin sodium 100 mg/ml prefilled syringe (1 source) Low Molecular Weight Heparin Start: 03-29-2022 End: 03-29-2022 inject 40 mg by subcutaneous injection every twenty-four hours 40 mg, Subcutaneous, EVERY 24 HOURS, First dose on 03/29/22 at 0600, Until Discontinued Indications: DVT/PE prophylaxis Enoxaparin Sodium (LOVENOX) injection 40 mg (1 source) Start: 04-20-2022 End: 04-27-2022 Enoxaparin Sodium (LOVENOX) injection 40 mg glipiZIDE 5 mg oral tablet (7 sources) Sulfonylurea Start: 05-17-2018 End: 05-20-2019 take 2.5 mg by mouth once daily Glipizide 5 mg tablet Discontinued 2.5 mg PO DAILY May 17, 2018 1:00am May 20, 2019 12:16pm Start: 05-17-2018 End: 05-20-2019 take 2.5 mg by mouth once daily Glipizide Discontinued 2.5 MG PO DAILY May 17, 2018 12:00am May 20, 2019 11:16am 1000 ml glucose 500 mg/ml injection (1 source) Start: 04-25-2022 End: 04-27-2022 Dextrose 50% injection 7.5-25 g 1 ml heparin sodium, porcine 5000 unt/ml prefilled syringe (3 sources) Unfractionated Heparin, Anti-coagulant Start: 04-03-2022 End: 04-05-2022 Heparin injection 5,000 Units Start: 03-29-2022 End: 04-01-2022 heparin 25,000 units in dext jeanine 5% 250 mL premix infusion Start: 03-29-2022 End: 03-29-2022 Heparin injection 3,500 Unit s hydroCHLOROthiazide 12.5 mg oral tablet (20 sources) Thiazide Diuretic Start: 07-18-2016 End: 01-19-2017 take 1 tablet by mouth once daily HYDROCHLOROTHIAZIDE 12.5 MG TABS One tablet by mouth daily HYDROCHLOROTHIAZIDE [id number] Jeni Knox PA-C Insulin lispro (HUMALOG) injection (2 sources) Start: 04-20-2022 End: 04-27-2022 Insulin lispro (HUMALOG) injection Start: 03-30-2022 End: 04-05-2022 Insulin lispro (HUMALOG) inj ection 24 hr isosorbide mononitrate 60 mg extended release oral tablet (20 sources) Nitrate Vasodilator Start: 03-31-2022 End: 04-01-2022 isosorbide mononitrate (IMDUR) tablet XL 60 mg Start: 03-29-2022 End: 03-30-2022 30 mg, Oral, DAILY EVERY MOR FILIBERTO, First dose on 03/29/22 at 0900, Until Discontinued Do not crush or chew. May be divided in half. Start: 03-24-2022 End: 04-07-2022 take 1 tablet by mouth once daily, then take 1 tablet by mouth every twenty-four hours Isosorbide Mononitrate 30 mg Tablet Extended Release 24 Hr Discontinued 30 mg PO DAILY 30 March 24, 2022 1:00am April 07, 2022 11:45am Start: 09-23-2018 End: 10-06-2018 take 1 tablet by mouth once daily, then take 2 tablets by mouth every twenty-four hours Isosorbide Mononitrate 60 mg tablet extended release 24 hr Discontinued 30 mg PO DAILY 180 September 23, 2018 6:07pm October 06, 2018 2:45pm Start: 07-29-2018 End: 09-23-2018 take 1 tablet by mouth once daily, then take 1 tablet by mouth every twenty-four hours Isosorbide Mononitrate 60 mg tablet extended release 24 hr Discontinued 60 mg PO DAILY 180 3 July 29, 2018 9:21am September 23, 2018 6:08pm Start: 05-10-2018 End: 07-29-2018 take 1 tablet by mouth twice daily, then take 1 tablet by mouth every twenty-four hours Isosorbide Mononitrate 60 mg tablet extended release 24 hr Discontinued 60 mg PO TWICE A DAY 180 3 July 22, 2018 3:12pm July 29, 2018 9:21am labetalol hydrochloride 5 mg/ml injectable solution (1 source) beta-Adrenergic Juan Start: 03-29-2022 End: 03-29-2022 Labetalol (NORMODYNE) injection 10 mg magnesium oxide 400 mg oral tablet (2 sources) Start: 04-20-2022 End: 04-27-2022 magnesium oxide (MAG-OX) tablet 800 mg Start: 03-28-2022 End: 04-05-2022 magnesium oxide (MAG-OX) tab let 800 mg 50 ml magnesium sulfate 80 mg/ml injection (1 source) Start: 04-20-2022 End: 04-27-2022 Magnesium sulfate 4 g in sterile water 50 ml premix IVPB melatonin 1 mg oral tablet (4 sources) Start: 04-27-2022 End: 04-22-2024 take 1 tablet by mouth at bedtime as needed for sleep Melatonin 1 mg tablet Discontinued 1 mg PO BEDTIME as needed for sleep May 15, 2022 1:00am April 22, 2024 2:06pm metFORMIN hydrochloride 500 mg oral tablet (20 sources) Biguanide Start: 05-10-2018 End: 01-28-2021 take 1 tablet by mouth twice daily as needed Metformin 500 MG tablet Discontinued 500 mg PO TWICE A DAY as needed for blood sugar December 12, 2020 12:02am January 28, 2021 9:48am metoprolol tartrate 25 mg oral tablet (20 sources) beta-Adrenergic Juan Start: 03-29-2022 End: 04-03-2022 take 25 mg by mouth every twelve hours 25 mg, Oral, EVERY 12 HOURS, First dose on 03/29/22 at 0900, Until Discontinued Start: 03-20-2022 End: 04-07-2022 take 12.5 mg by mouth twice daily Metoprolol Tartrate Discontinued 12.5 MG PO TWICE A DAY March 20, 2022 12:00am April 07, 2022 10:44am Start: 10-06-2018 End: 01-28-2021 take 12.5 mg by mouth twice daily Metoprolol Tartrate Discontinued 12.5 MG PO TWICE A DAY 90 June 12, 2020 3:36pm December 11, 2020 11:03pm Start: 05-10-2018 End: 10-06-2018 take 1 tablet by mouth twice daily Metoprolol Tartrate 25 mg tablet Discontinued 25 mg PO TWICE A DAY 180 July 13, 2018 4:46pm October 06, 2018 2:35pm Start: 05-06-2018 End: 05-10-2018 take 12.5 mg by mouth twice daily Metoprolol Tartrate Discontinued 12.5 MG PO TWICE A DAY May 06, 2018 12:00am May 10, 2018 11:42am Start: 03-06-2017 End: 04-07-2022 Metoprolol Tartrate 25 mg ta blet Discontinued 12.5 mg PO TWICE A DAY 90 June 12, 2020 4:36pm December 12, 2020 12:03am Start: 03-06-2017 End: 04-28-2018 take 12.5 mg by mouth twice daily Metoprolol Tartrate Discontinued 12.5 MG PO TWICE A DAY January 11, 2018 10:20am April 28, 2018 1:26pm Start: 07-18-2016 take 0.5 tablet by m outh twice daily METOPROLOL TARTRATE 50 MG TABS 1/2 tablet by mouth twice daily METOPROLOL TARTRATE [id number] Jessica King RN Start: 07-18-2016 take 1 tablet by claudio th twice daily METOPROLOL TARTRATE 25 MG TABS One half tablet by mouth twice daily METOPROLOL TARTRATE [id number] Dontrell Dawson MD Start: 07-11-2016 End: 03-06-2017 take 1 tablet by mouth twice daily Metoprolol Tartrate 50 MG tablet Discontinued 50 mg PO TWICE A DAY 60 July 11, 2016 10:50am March 06, 2017 9:03pm Multiple Vitamins-Minerals (ADVANCED EYE HEALTH PO) (1 source) End: 04-03-2022 Multiple Vitamins-Minerals (ADVANCED EYE HEALTH PO) Take by mouth. 0 04/03/2022 Discontinued (Medication Reconciliation (suppress cancel msg)) Multivitamin w/ minerals (THERAPEUTIC-M) tablet 1 tablet (1 source) Start: 03-29-2022 End: 04-05-2022 take 1 tablet by mouth once daily 1 tablet, Oral, DAILY, First dose on 03/29/22 at 0900, Until Discontinued Multivitamin w/ minerals tablet (1 source) End: 04-03-2022 take 1 tablet by mouth once daily Multivitamin w/ minerals tablet Take 1 tablet by mouth daily. 0 04/03/2022 Discontinued (Medication Reconciliation (suppress cancel msg)) 250 ml nitroglycerin 0.2 mg/ml injection (20 sources) Nitrate Vasodilator Start: 03-30-2022 End: 04-01-2022 nitroGLYCERIN in dextrose 5% 50 mg/250 ml premix infusion Start: 03-28-2022 End: 04-05-2022 0.4 mg, Sublingual, EVERY 5 MINUTES NEEDED, Starting on 03/28/22 at 2135, Until 04/05/22 at 1936, Chest pain Maximum of three consecutive doses in 15 minutes. Do not chew, crush, or swallow sublingual tablet. Place under tongue and allow to dissolve. Alternately, may be placed in the buccal pouch. Start: 07-11-2016 End: 07-11-2016 Nitroglycerin 0.4 MG tablet Active 0.4 mg SL Q5M as needed for Chest Pain 18 04July 11, 2016 10:50am 2 ml ondansetron 2 mg/ml injection (1 source) Serotonin-3 Receptor Antagonist Start: 04-25-2022 End: 04-27-2022 Ondansetron 4mg/2ml (ZOFRAN) injection 4 mg potassium bicarbonate 20 meq effervescent oral tablet (2 sources) Start: 04-21-2022 End: 04-27-2022 Potassium Bicarb-Citric Acid (Effer-K) 20 MEQ effervescent tablets for oral solution 20-40 mEq rosuvastatin calcium 10 mg oral tablet (18 sources) HMG-CoA Reductase Inhibitor Start: 03-04-2017 End: 09-28-2017 take 1 tablet by mouth at bedtime Rosuvastatin (Crestor) 10 mg tablet Discontinued 10 mg PO AT BEDTIME March 04, 2017 1:00am September 28, 2017 1:08pm Start: 11-17-2016 take 1 tablet by claudio th at bedtime CRESTOR 10 MG TABS One tablet by mouth at bedtime. ROSUVASTATIN CALCIUM [id number] Dontrell Dawson MD simvastatin 40 mg oral tablet (20 sources) HMG-CoA Reductase Inhibitor Start: 05-06-2018 End: 11-07-2020 take 1 tablet by mouth once daily Simvastatin 40 mg tablet Discontinued 40 mg PO DAILY 90 3 October 02, 2020 3:10pm November 07, 2020 2:07pm Start: 09-28-2017 End: 04-28-2018 take 1 tablet by mouth once daily in the evening Simvastatin 40 mg tablet Discontinued 40 mg PO EVERY EVENING 90 3 November 20, 2017 11:00am April 28, 2018 2:26pm sodium chloride 0.111 meq/ml nasal solution (6 sources) Start: 04-21-2022 End: 04-27-2022 Sodium chloride (OCEAN) 0.65 % nasal spray 2 spray Start: 04-20-2022 End: 04-20-2022 Sodium chloride 0.9% IV solu tion Start: 04-20-2022 End: 04-27-2022 Sodium chloride 0.9% IV solu tion 250 mL Start: 04-04-2022 End: 04-04-2022 Sodium chloride 0.9% IV solu tion Start: 04-01-2022 End: 04-01-2022 Sodium chloride 0.9% IV solu tion Start: 03-28-2022 End: 04-05-2022 Intravenous, at 20 mL/hr, NEEDED, Starting on Thu03/28/22 at 2136, Until 04/05/22 at 1936, Carrier Fluid - See Admin. Inst 250mL 0.9NS to be used as carrier fluid for intermittent small volume or piggyback medication administration as needed. Infusion rate of the carrier fluid should be set at 20 mL/hr unless the rate as the intermittent medication is less than 20 mL/hr. For intermittent medications with a rate less than 20 mL/hr set the carrier fluid at that rate of the intermittent or piggy back medication. 200 ml vancomycin 5 mg/ml injection (2 sources) Glycopeptide Antibacterial Start: 04-25-2022 End: 04-25-2022 take 1000 mg intravenously every twelve hours Vancomycin HCl in NaCl (VANCOCIN) 1,000 mg in 200 ml NS premix IVPB Problems Active Problems Problem Classification Problem Date Documented Date Episodic/Chronic Acute myocardial infarction (17 sources) Myocardial infarction; Translations: [Non-ST elevation (NSTEMI) myocardial infarction] Onset: 2 Chronic Congestive heart failure; nonhypertensive (11 sources) Acute on chronic diastolic heart failure; Translations: [Acute on chronic diastolic (congestive) heart failure] Onset: 3 Chronic Coronary atherosclerosis and other heart disease (20 sources) Atherosclerotic heart disease of yocha dehe coronary artery without angina pectoris; Translations: [Coronary atherosclerosis] Onset: 7 07-31-2016 Chronic Diabetes mellitus with complications (4 sources) Diabetes mellitus; Translations: [Type 2 diabetes mellitus with hyperglycemia] Onset: 3 Chronic Diabetes mellitus without complication (11 sources) Type 2 diabetes mellitus; Translations: [Type 2 diabetes mellitus without complications] Chronic Disorders of lipid metabolism (20 sources) Hyperlipidemia; Translations: [Hyperlipidemia, unspecified] Onset: 7 08-06-2016 Chronic Essential hypertension (20 sources) Hypertensive disorder; Translations: [Essential hypertension] Onset: 7 08-06-2016 Chronic Heart valve disorders (20 sources) Aortic stenosis, non-rheumatic ; Translations: [Nonrheumatic aortic (valve) stenosis] Onset: 2 Chronic Comment on above: 23 mm Lorelei biopros thetic valve at [facility] on 04/25/2022 TAVR at [facility] on 2022 with a 23 mm Lerner LORELEI S3 valve; Hypertension with complications and secondary hypertension (10 sources) Hypertensive urgency ; Translations: [Hypertensive urgency] 05-07-2018 Chronic Nonspecific chest pain (20 sources) Chest pain; Translations: [Chest pain, unspecified] Onset: 2 Episodic Occlusion or stenosis of precerebral arteries (20 sources) Occlusion and stenosis of right carotid artery; Translations: [Right carotid artery occlusion] Onset: 7 11-27-2016 Chronic Comment on above: Carotid endarterecto my April 2018 Other and ill-defined heart disease (2 sources) Heart disease; Translations: [Heart disease, unspecified] Onset: 3 04-17-2022 Chronic Other circulatory disease (7 sources) H/O: heart disorder; Translations: [Personal history of other diseases of the circulatory system] 04-17-2022 Episodic Other circulatory disease (5 sources) Personal history of other diseases of the circulatory system; Translations: [Personal history of other diseases of circulatory system] Episodic Other hematologic conditions (10 sources) Raised cardiac enzyme or marker; Translations: [Other specified abnormalities of plasma proteins] 05-06-2018 Episodic Other hematologic conditions (4 sources) Other specified abnormalities of plasma proteins; Translations: [Other abnormal blood chemistry] Episodic Other lower respiratory disease (10 sources) Pulmonary edema; Translations: [Chronic pulmonary edema] 03-20-2022 Chronic Other lower respiratory disease (5 sources) Chronic pulmonary edema; Translations: [Pulmonary congestion and hypostasis] Chronic Other lower respiratory disease (7 sources) Hypoxemia; Translations: [Hypoxemia] 05-06-2018 Episodic Other lower respiratory disease (7 sources) Hypoxia; Translations: [Hypoxemia] 03-20-2022 Episodic Other lower respiratory disease (5 sources) Hypoxemia; Translations: [Hypoxemia] Episodic Other lower respiratory disease (2 sources) Respiratory insufficiency; Translations: [Other abnormalities of breathing] 03-21-2024 Episodic Other nutritional; endocrine; and metabolic disorders (7 sources) Body mass index (BMI) 32.0-32.9, adult; Translations: [Body mass index (BMI) 32.0-32.9, adult] Onset: 7 11-27-2016 Chronic Other nutritional; endocrine; and metabolic disorders (7 sources) H/O: diabetes mellitus; Translations: [Personal history of other endocrine, nutritional and metabolic disease] 03-20-2022 Episodic Other nutritional; endocrine; and metabolic disorders (5 sources) Personal history of other endocrine, nutritional and metabolic disease; Translations: [Personal history of other endocrine, metabolic, and immunity disorders] Episodic Other screening for suspected conditions (not mental disorders or infectious disease) (3 sources) Electrocardiogram abnormal; Translations: [Abnormal electrocardiogram [ECG] [EKG]] Onset: 2 Episodic Peripheral and visceral atherosclerosis (11 sources) Peripheral vascular disease, unspecified; Translations: [Peripheral arterial disease] Chronic Respiratory failure; insufficiency; arrest (adult) (20 sources) Respiratory failure; Translations: [Respiratory failure, unspecified, unspecified whether with hypoxia or hypercapnia] Onset: Episodic Septicemia (except in labor) (7 sources) Sepsis; Translations: [Sepsis, unspecified organism] 05-06-2018 Episodic Transient cerebral ischemia (14 sources) Transient cerebral ischemia; Translations: [Transient cerebral ischemic attack, unspecified] 12-11-2020 Chronic Unclassified (13 sources) Percutaneous transluminal coronary angioplasty ; Translations: [Presence of coronary angioplasty implant and graft] Onset: 7 07-18-2016 Unclassified (7 sources) Long-term drug therapy; Translations: [Other mcc (current) drug therapy] Onset: 7 11-28-2016 Past or Other Problems Problem Classification Problem Date Documented Date Episodic/Chronic Coronary atherosclerosis and other heart disease (18 sources) Stented coronary artery; Translations: [Presence of coronary angioplasty implant and graft] Onset: 06-28-2016 Episodic Comment on above: PCI/HIRAL mid RCA 09/19 @ [facility]; Complex PCI/HIRAL proximal Xience kayli point 2.75 x 15 mm stent in the mid LAD received a Xience kayli point 2.5 x 18 mm stent 04/01/22 @ [facility]; PCI-HIRAL-RCA 3.5 x 12 mm Synergy 07/10/16 Other aftercare (11 sources) Other adjunct faculty for medical terminology (current) drug therapy; Translations: [Other adjunct faculty for medical terminology (current) drug therapy] Onset: 08-13-2016 11-28-2016 Episodic Other lower respiratory disease (1 source) Other abnormalities of breathing; Translations: [Other abnormalities of breathing] Onset: 04-18-2024 Episodic Pneumonia (except that caused by tuberculosis or sexually transmitted disease) (9 sources) Community acquired pneumonia; Translations: [Pneumonia, unspecified organism] Onset: 04-18-2024 05-07-2018 Episodic Residual codes; unclassified (4 sources) History of cardiac catheterization; Translations: [Other specified postprocedural states] Onset: 02-27-2022 04-01-2022 Episodic Comment on above: severe multivessel c alcified coronary atherosclerosis which explain her presentation of symptoms of chest pain with non-ST elevation MIIn addition she has a severe aortic valve stenosis using the right heart catheter parameters HR cardiac output is 2.5 and the gradient is clear with of the gradient is around 5.[address] Rojas 03/21/22 Residual codes; unclassified (1 source) Other specified postprocedural states; Translations: [Other specified postprocedural states] Onset: 04-18-2024 Episodic Results Test Name Value Interpretation Reference Range Facility Cardiology Visit Reporton Cardiology Visit Report [facility] [address] [place] [address] OFFICE VISIT Date of Service: 02/07/25 MR#: [id number] Acct: [id number] Name: FINESSE PRATHER Rep #: [id number] : 1935 Provider: YASH jacobson Age/Sex: 89/F Location: [facility] Status: Signed HPI HPI History of Present Illness Details: Finesse Prather is an 89 year-old white female with a history of CAD status post RCA PTCA/stent (2016), hyperlipidemia, hypertension, moderate to severe aortic valve stenosis, with a history of bilateral carotid artery endarterectomy-remote. She had a TIA in 11/2020. She was evaluated [facility] in February 2022 for shortness of breath. She underwent a heart catheterization that showed severe coronary artery disease. Her echocardiogram showed ejection fraction of 65% and moderate to severe aortic valve stenosis. She was transferred to [facility] for CABG and AVR evaluation. She proceeded with drug-eluting stent to mid RCA and mid LAD on 04/01/2022. Post stenting, she returned to Emergency Department and transferred back to [facility] for shortness of breath and pulmonary edema. She was discharged and in few hours upon returning home, she presented back to the emergency department for shortness of breath. She again was transferred to [facility]. She ultimately proceeded with TAVR at [facility] on 04/25/2022 with a 23 mm Lerner LORELEI S3 valve. Echocardiogram post TAVR showed ejection fraction 50-55%, stage II diastolic dysfunction, mean aortic valve gradient 8 mmHg, dimensionless valve index of 0.53, valve area of 1.03 cm???, and a valve velocity max at 1.9 m/s. She denies chest, arm, jaw, or neck discomfort. She denies palpitations. She denies bilateral lower extremity edema. She denies claudication. She denies shortness of breath with activity, shortness of breath at rest, orthopnea, or PND. She denies chronic cough. She denies significant, sudden weight gain. She denies lightheadedness, dizziness, near-syncope, or syncope. She denies blood in urine, blood in stool, or epistaxis. He denies fever with chills. She denies myalgia. She denies fatigue. Her exercise level has remained stable. Intake Vital Signs 02/16/24 09:27 02/07/25 07:19 Height 4 ft 11 in 4 ft 11 in Weight: 139 lb BMI 28.0 BP 133/70 H Blood Pressure Location Lt brachial Position Sitting Respiration 18 Pulse 63 Pulse Source Monitor Pulse Oximetry (%) 98 Intake Visit Reasons: 1 Y FU Nurse Informaticist Required: No Is patient in pain?: No Allergies rosuvastatin Adverse Reaction (Severe, Verified 02/07/25 09:45) Myalgias simvastatin Adverse Reaction (Severe, Verified 02/07/25 09:45) myalgias Medications ???Medication ???Instructions ???Recorded ???Confirmed ???Type nitroglycerin 0.4 mg sublingual 0.4 mg sublingual Q5M PRN Chest 02/07/25 Rx tablet Pain #20 tabs aspirin 81 mg tablet,delayed 81 mg PO DAILY HEART HEALTH 02/07/25 History release omega-3 250 lf-hmg-web-lutein 2.5 1 cap PO BID EYE HEALTH 01/28/21 02/07/25 History mg-zeaxanthin 0.5 mg capsule ([facility]) vitamin B complex 1 cap PO DAILY SUPPLEMENT 01/28/21 02/07/25 History ezetimibe 10 mg tablet 10 mg PO DAILY CHOLESTEROL 2 02/07/25 History multivitamin with minerals 1 tab PO DAILY SUPPLEMENT 03/20/22 02/07/25 History hydralazine 10 mg tablet 10 mg PO TID PRN hypertension 04/3002/07/25 History sertraline 50 mg tablet 50 mg PO DAILY 05/15/22 02/07/25 H istory potassium chloride 20 mEq 20 meq PO BIDCM 30 days #60 tabs 0 10/04/24 02/07/25 Rx tablet,extended release(part/cryst) furosemide 40 mg tablet (Lasix) 40 mg PO QAM 12/06/24 02/07/25 His tory lisinopril 10 mg tablet 20 mg PO ONCE 02/07/25 02/07/25 Hi story metformin 500 mg tablet 500 mg PO ONCE blood sugar 5 02/07/25 History Ejection fraction %: 55 Have you fallen in the past year?: No Nurse's Note: Patient's blood pressure cuff Left arm: 152/78, pulse: 71 PFSH Medical History Moderate to severe aortic stenosis Depression Diabetes Osteoporosis Non-smoker Coronary artery disease Hypertension TIA (transient ischemic attack) Nonrheumatic aortic (valve) stenosis Essential hypertension Presence of stent in coronary artery ( 04/04/22) Carotid stenosis, left Occlusion and stenosis of left carotid artery Nonrheumatic mitral (valve) insufficiency Aortic valve disorders Atherosclerotic heart disease of [place] dehe coronary artery without angina pectoris HLD (hyperlipidemia) Occlusion and stenosis of right carotid artery PAD (peripheral artery disease) Surgical History History of transcatheter aortic valve replacement (TAVR) ( 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 Normal [facility] Cardiology Visit Reporton Cardiology Visit Report [facility] [place] [address] OFFICE VISIT Date of Service: 12/06/24 MR#: [id number] Acct: [id number] Name: FINESSE PRATHER Rep #: [id number] : 1935 Provider: ERASMO Negrete Age/Sex: 89/F Location: [facility] Status: Signed HPI HPI History of Present Illness Details: Finesse Prather is an 89 year-old white female with a history of CAD status post RCA PTCA/stent (2016), hyperlipidemia, hypertension, moderate to severe aortic valve stenosis, with a history of bilateral carotid artery endarterectomy-remote. She had a TIA in 11/2020. She was evaluated [facility] in February 2022 for shortness of breath. She underwent a heart catheterization that showed severe coronary artery disease. Her echocardiogram showed ejection fraction of 65% and moderate to severe aortic valve stenosis. She was transferred to [facility] for CABG and AVR evaluation. She proceeded with drug-eluting stent to mid RCA and mid LAD on 04/01/2022. Post stenting, she returned to Emergency Department and transferred back to [facility] for shortness of breath and pulmonary edema. She was discharged and in few hours upon returning home, she presented back to the emergency department for shortness of breath. She again was transferred to [facility]. She ultimately proceeded with TAVR at [facility] on 04/25/2022 with a 23 mm Lerner LORELEI S3 valve. Echocardiogram post TAVR showed ejection fraction 50-55%, stage II diastolic dysfunction, mean aortic valve gradient 8 mmHg, dimensionless valve index of 0.53, valve area of 1.03 cm???, and a valve velocity max at 1.9 m/s. Patient was in our office a few months ago with variable blood pressure readings. Blood pressure cuff today does not correlate. She was asked to bring this in to correlate readings. She does not have any chest pain although sometimes she feels that when her blood pressure is high. She does not have any worsening shortness of breath. She does not have any lightheadedness or dizziness. She does not have any swelling. Intake Vital Signs 10/04/24 16:00 12/06/24 08:55 12/06/24 09:14 12/06/24 09:17 12/06/24 09:28 12/06/24 09:28 Height 4 ft 11 in 4 ft 11 in Weight: 133 lb 136 lb BMI 26.9 27.4 BP 105/55 L 151/70 H 156/88 H 160/87 H 140/78 H 161/78 H Blood Pressure Location Lt brachial Lt brachial Lt brachial Lt brachial Position Sitting Sitting Sitting Sitting Respiration 16 16 Pulse 64 69 71 71 Pulse Source Monitor NIBP NIBP NIBP Comment Home BP cuff Home BP cuff pt BP cuff Intake Visit Reasons: 2 M FU Nurse Informaticist Required: No Accompanied by: Daughter Is patient in pain?: No Allergies rosuvastatin Adverse Reaction (Severe, Verified 12/06/24 09:05) Myalgias simvastatin Adverse Reaction (Severe, Verified 12/06/24 09:05) myalgias Medications ???Medication ???Instructions ???Recorded ???Confirmed ???Type nitroglycerin 0.4 mg sublingual 0.4 mg sublingual Q5M PRN Chest 12/06/24 Rx tablet Pain #20 tabs aspirin 81 mg tablet,delayed 81 mg PO DAILY HEART HEALTH 12/06/24 History release metformin 500 mg tablet 500 mg PO BID blood sugar 01/28/21 12/06/24 History omega-3 250 ko-doh-qpa-lutein 2.5 1 cap PO BID EYE HEALTH 01/28/21 12/06/24 History mg-zeaxanthin 0.5 mg capsule ([facility]) vitamin B complex 1 cap PO DAILY SUPPLEMENT 01/28/21 12/06/24 History ezetimibe 10 mg tablet 10 mg PO DAILY CHOLESTEROL 2 12/06/24 History multivitamin with minerals 1 tab PO DAILY SUPPLEMENT 03/20/22 12/06/24 History hydralazine 10 mg tablet 10 mg PO TID PRN hypertension 04/3012/06/24 History sertraline 50 mg tablet 50 mg PO DAILY 05/15/22 12/06/24 H istory lisinopril 10 mg tablet 10 mg PO BID #180 tabs 10/04/24 Rx potassium chloride 20 mEq 20 meq PO BIDCM 30 days #60 tabs 0 10/04/24 12/06/24 Rx tablet,extended release(part/cryst) furosemide 40 mg tablet (Lasix) 40 mg PO QAM 12/06/24 History Ejection fraction %: 55 Have you fallen in the past year?: No PFSH Medical History Moderate to severe aortic stenosis Depression Diabetes Osteoporosis Non-smoker Coronary artery disease Hypertension TIA (transient ischemic attack) Nonrheumatic aortic (valve) stenosis Essential hypertension Presence of stent in coronary artery ( 04/04/22) Carotid stenosis, left Occlusion and stenosis of left carotid artery Nonrheumatic mitral (valve) insufficiency Aortic valve disorders Atherosclerotic heart disease of [place] dehe coronary artery without angina pectoris HLD (hyperlipidemia) Occlusion and stenosis of right carotid artery PAD (peripheral artery disease) Surgical History History of transc (more content not included)... Normal [facility] Cardiology Visit Reporton Cardiology Visit Report [facility] [address] [place] [address] OFFICE VISIT Date of Service: 10/04/24 MR#: [id number] Acct: [id number] Name: FINESSE PRATHER Rep #: [id number] : 1935 Provider: ERASMO Negrete Age/Sex: 89/F Location: [facility] Status: Signed HPI HPI History of Present Illness Details: Finesse Prather is an 89 year-old white female with a history of CAD status post RCA PTCA/stent (2016), hyperlipidemia, hypertension, moderate to severe aortic valve stenosis, with a history of bilateral carotid artery endarterectomy-remote. She had a TIA in 11/2020. She was evaluated [facility] in February 2022 for shortness of breath. She underwent a heart catheterization that showed severe coronary artery disease. Her echocardiogram showed ejection fraction of 65% and moderate to severe aortic valve stenosis. She was transferred to [facility] for CABG and AVR evaluation. She proceeded with drug-eluting stent to mid RCA and mid LAD on 04/01/2022. Post stenting, she returned to Emergency Department and transferred back to [facility] for shortness of breath and pulmonary edema. She was discharged and in few hours upon returning home, she presented back to the emergency department for shortness of breath. She again was transferred to [facility]. She ultimately proceeded with TAVR at [facility] on 04/25/2022 with a 23 mm Lerner LORELEI S3 valve. Echocardiogram post TAVR showed ejection fraction 50-55%, stage II diastolic dysfunction, mean aortic valve gradient 8 mmHg, dimensionless valve index of 0.53, valve area of 1.03 cm???, and a valve velocity max at 1.9 m/s. Her BP has been variable. She is symptomatic with this. She does have her blood pressure log with her. Intake Vital Signs 04/22/24 13:00 10/04/24 16:00 Height 4 ft 11 in 4 ft 11 in Weight: 135 lb 133 lb BMI 27.2 26.9 BP 97/50 L 105/55 L Blood Pressure Location Lt brachial Lt brachial Position Sitting Sitting Respiration 16 16 Pulse 62 64 Pulse Source NIBP Monitor Intake Visit Reasons: 3 M FU Nurse Informaticist Required: No Accompanied by: Daughter Allergies rosuvastatin Adverse Reaction (Severe, Verified 10/04/24 16:01) Myalgias simvastatin Adverse Reaction (Severe, Verified 10/04/24 16:01) myalgias Medications ???Medication ???Instructions ???Recorded ???Confirmed ???Type nitroglycerin 0.4 mg sublingual 0.4 mg sublingual Q5M PRN Chest 10/04/24 Rx tablet Pain #20 tabs aspirin 81 mg tablet,delayed 81 mg PO DAILY HEART HEALTH 10/04/24 History release metformin 500 mg tablet 500 mg PO BID blood sugar 01/28/21 10/04/24 History omega-3 250 ci-plq-nro-lutein 2.5 1 cap PO BID EYE HEALTH 01/28/21 10/04/24 History mg-zeaxanthin 0.5 mg capsule ([facility]) vitamin B complex 1 cap PO DAILY SUPPLEMENT 01/28/21 10/04/24 History ezetimibe 10 mg tablet 10 mg PO DAILY CHOLESTEROL 2 10/04/24 History multivitamin with minerals 1 tab PO DAILY SUPPLEMENT 03/20/22 10/04/24 History hydralazine 10 mg tablet 10 mg PO TID PRN hypertension 04/3010/04/24 History sertraline 50 mg tablet 50 mg PO DAILY 05/15/22 10/04/24 H istory furosemide 40 mg tablet (Lasix) 40 mg PO BID #90 tabs 04/25/2411/21 Rx lisinopril 10 mg tablet 10 mg PO BID #180 tabs 10/04/24 Rx potassium chloride 20 mEq 20 meq PO BIDCM 30 days #60 tabs 0 10/04/24 10/04/24 Rx tablet,extended release(part/cryst) Have you fallen in the past year?: No PFSH Medical History Moderate to severe aortic stenosis Depression Diabetes Osteoporosis Non-smoker Coronary artery disease Hypertension TIA (transient ischemic attack) Nonrheumatic aortic (valve) stenosis Essential hypertension Presence of stent in coronary artery ( 04/04/22) Carotid stenosis, left Occlusion and stenosis of left carotid artery Nonrheumatic mitral (valve) insufficiency Aortic valve disorders Atherosclerotic heart disease of yocha dehe coronary artery without angina pectoris HLD (hyperlipidemia) Occlusion and stenosis of right carotid artery PAD (peripheral artery disease) Surgical History History of transcatheter aortic valve replacement (TAVR) ( 04/25/22) History of right and left heart catheterization (LHC) ( 03/21/22) Presence of coronary angioplasty implant and graft ( 07/10/16) History of left-sided carotid endarterectomy (05/05/17) History of hysterectomy History of CEA (carotid endarterectomy) ( 2010) Family History Father CAD (coronary artery disease) Hypertension Myocardial infarction, Onset Age: 80 Sister CVA (cerebral vascular accident), Onset Age: 66 Diab (more content not included)... Normal [facility] Cardiology Visit Reporton Cardiology Visit Report [facility] [place] [address] OFFICE VISIT Date of Service: 04/22/24 MR#: [id number] Acct: [id number] Name: FINESSE PRATHER Rep #: [id number] : 1935 Provider: ERASMO Negrete Age/Sex: 89/F Location: [facility] [place] Status: Signed HPI HPI History of Present Illness Details: Finesse Prather is an 89 year-old white female with a history of CAD status post RCA PTCA/stent (2016), hyperlipidemia, hypertension, moderate to severe aortic valve stenosis, with a history of bilateral carotid artery endarterectomy-remote. She had a TIA in 11/2020. She was evaluated [facility] in February 2022 for shortness of breath. She underwent a heart catheterization that showed severe coronary artery disease. Her echocardiogram showed ejection fraction of 65% and moderate to severe aortic valve stenosis. She was transferred to [facility] for CABG and AVR evaluation. She proceeded with drug-eluting stent to mid RCA and mid LAD on 04/01/2022. Post stenting, she returned to Emergency Department and transferred back to [facility] for shortness of breath and pulmonary edema. She was discharged and in few hours upon returning home, she presented back to the emergency department for shortness of breath. She again was transferred to [facility]. She ultimately proceeded with TAVR at [facility] on 04/25/2022 with a 23 mm Lerner LORELEI S3 valve. Echocardiogram post TAVR showed ejection fraction 50-55%, stage II diastolic dysfunction, mean aortic valve gradient 8 mmHg, dimensionless valve index of 0.53, valve area of 1.03 cm???, and a valve velocity max at 1.9 m/s. Patient was in the hospital over the holidays for congestive heart failure. She was having issues with her blood pressure. Her medications were adjusted. She is still having higher readings in the morning and in the evening but significant low readings during the day and she is feeling tired and lightheaded. She has not had any syncope. She does not have any chest pain. She does not have any palpitations. She does not have any lower extremity edema. Intake Vital Signs 03/22/24 10:09 04/22/24 13:00 Height 4 ft 11 in 4 ft 11 in Weight: 135 lb BMI 27.2 BP 97/50 L Blood Pressure Location Lt brachial Position Sitting Respiration 16 Pulse 62 Pulse Source NIBP Intake Visit Reasons: 1 M Nurse Informaticist Required: No Accompanied by: Daughter Is patient in pain?: No Allergies rosuvastatin Adverse Reaction (Severe, Verified 04/22/24 13:04) Myalgias simvastatin Adverse Reaction (Severe, Verified 04/22/24 13:04) myalgias Medications ???Medication ???Instructions ???Recorded ???Confirmed ???Type nitroglycerin 0.4 mg sublingual 0.4 mg sublingual Q5M PRN Chest 07/11/16 04/22/24 Rx tablet Pain #20 tabs aspirin 81 mg tablet,delayed 81 mg PO DAILY HEART HEALTH 04/28/18 04/22/24 History release metformin 500 mg tablet 500 mg PO BID blood sugar 01/28/21 04/22/24 History omega-3 250 nv-xkh-mpl-lutein 2.5 1 cap PO BID EYE HEALTH 01/28/21 04/22/24 History mg-zeaxanthin 0.5 mg capsule ([facility]) vitamin B complex 1 cap PO DAILY SUPPLEMENT 01/28/21 04/22/24 History ezetimibe 10 mg tablet 10 mg PO DAILY CHOLESTEROL 03/20/22 04/22/24 History multivitamin with minerals 1 tab PO DAILY SUPPLEMENT 03/20/22 04/22/24 History hydralazine 10 mg tablet 10 mg PO TID PRN hypertension 05/15/22 04/22/24 History sertraline 50 mg tablet 50 mg PO DAILY 05/15/22 04/22/24 History furosemide 40 mg tablet (Lasix) 40 mg PO BID 1 month #60 tabs 03/23/24 04/22/24 Rx potassium chloride 20 mEq 20 meq PO BIDCM 30 days #60 tabs 03/23/24 04/22/24 Rx tablet,extended release(part/cryst) carvedilol 25 mg tablet 25 mg PO BID #180 tabs 04/07/24 04/22/24 Rx lisinopril 10 mg tablet 20 mg (2 x 10 mg) PO QDAY #180 tabs 04/22/24 04/22/24 Rx Ejection fraction %: 55 Have you fallen in the past year?: No Nurse's Note: Patient having episodes of dizziness, weakness, and low BP's in the mornings. Asking about reducing dose to help with symptoms. Needs refill on lasix [facility] Medical History Moderate to severe aortic stenosis Depression Diabetes Osteoporosis Non-smoker Coronary artery disease Hypertension TIA (transient ischemic attack) Nonrheumatic aortic (valve) stenosis Essential hypertension Presence of stent in coronary artery ( 04/04/22) Carotid stenosis, left Occlusion and stenosis of left carotid artery Nonrheumatic mitral (valve) insufficiency Aortic valve disorders Atherosclerotic heart disease of [place] de[place] coronary artery without angina pectoris HLD (hyperlipidemia) Occlusion and stenosis of right carotid artery PAD (peripheral artery disease) Surgical History Hist (more content not included)... Normal [facility] Basic Metabolic Profile (BMP )on 03-23-2024 BUN/CRE 26.4 RATIO High 01-16 [facility] Comment on above: Order Comment: 'TROP ' Serial specimen #1, #2 or #3: 1 Performed By: #### L 503.0020, L501.4020, L500.2500, L100.0100 #### [facility] [address] [place], [address] CA,Total 8.8 mg/dL Normal 8.5-10.1 [facility] Comment on above: Order Comment: 'TROP ' Serial specimen #1, #2 or #3: 1 Performed By: #### L 503.6620, L501.4020, L500.2500, L100.0100 #### [facility] [address] [place], [address] Chloride [Moles/Vol] 105 mmol/L Normal 98-107 [facility] Comment on above: Order Comment: 'TROP ' Serial specimen #1, #2 or #3: 1 Performed By: #### L 503.6620, L501.4020, L500.2500, L100.0100 #### [facility] [address] [place], [address] CO2 [Moles/Vol] 29.0 mmol/L Normal 21.0-32.0 [facility] Comment on above: Order Comment: 'TROP ' Serial specimen #1, #2 or #3: 1 Performed By: #### L 503.6620, L501.4020, L500.2500, L100.0100 #### [facility] [address] [place], [address] Creatinine [Mass/Vol] 0.68 mg/dL Normal 0.55-1.02 [facility] Comment on above: Order Comment: 'TROP ' Serial specimen #1, #2 or #3: 1 Result Comment: The validity of the calculated GFR GFRAA in patients over 70 years has not been determined. Clinical correlation is essential. Performed By: #### L 503.6620, L501.4020, L500.2500, L100.0100 #### [facility] [address] [place], [address] ECRCL 39.87 ml/min Normal [facility] Comment on above: Order Comment: 'TROP ' Serial specimen #1, #2 or #3: 1 Performed By: #### L 503.6620, L501.4020, L500.2500, L100.0100 #### [facility] [address] [place], [address] EST GFR - AA 105 mL/min Normal >60 [facility] Comment on above: Order Comment: 'TROP ' Serial specimen #1, #2 or #3: 1 Result Comment: Afri can Malagasy GFR Calc Performed By: #### L 503.6620, L501.4020, L500.2500, L100.0100 #### [facility] [address] [place], [address] GAP 5 Normal 5-15 [facility] Comment on above: Order Comment: 'TROP ' Serial specimen #1, #2 or #3: 1 Performed By: #### L 503.6620, L501.4020, L500.2500, L100.0100 #### [facility] [address] [place], [address] GFR/1.73 sq M.predicted among non-blacks MDRD (S/P/Bld) [Vol rate/Area] 86 mL/min/{1.73_m2} Normal >60 [facility] Comment on above: Order Comment: 'TROP ' Serial specimen #1, #2 or #3: 1 Result Comment: Non- GFR Calc Performed By: #### L 503.6620, L501.4020, L500.2500, L100.0100 #### [facility] [address] [place], [address] Glucose [Mass/Vol] 150 mg/dL High 74-106 [facility] Comment on above: Order Comment: 'TROP ' Serial specimen #1, #2 or #3: 1 Result Comment: Fast ing Glucose result greater than or equal to 126 mg/dL suggests DIABETES MELLITUS per A.D.A. criteria. Performed By: #### L 503.6620, L501.4020, L500.2500, L100.0100 #### [facility] [address] [place], [address] Potassium [Moles/Vol] 3.8 mmol/L Normal 3.5-5.1 [facility] Comment on above: Order Comment: 'TROP ' Serial specimen #1, #2 or #3: 1 Performed By: #### L 503.6620, L501.4020, L500.2500, L100.0100 #### [facility] [address] [place], [address] Sodium [Moles/Vol] 139 mmol/L Normal 136-145 [facility] Comment on above: Order Comment: 'TROP ' Serial specimen #1, #2 or #3: 1 Performed By: #### L 503.6620, L501.4020, L500.2500, L100.0100 #### [facility] [address] [place], [address] Urea nitrogen [Mass/Vol] 18 mg/dL Normal 7-18 [facility] Comment on above: Order Comment: 'TROP ' Serial specimen #1, #2 or #3: 1 Performed By: #### L 503.6620, L501.4020, L500.2500, L100.0100 #### [facility] [address] [place], [address] Bedside Glucoseon 03-23-2024 FINGERSTICK GLU 170 mg/dL High 74-106 [facility] Comment on above: Result Comment: NANNETTE GEMENT OF PATIENT CARE PER NURSING PROTOCOL Performed By: #### L 503.6620, L501.4020, L500.2500, L100.0100 #### [facility] [address] [place], [address] FINGERSTICK GLU 140 mg/dL High 74-106 [facility] Comment on above: Result Comment: NANNETTE GEMENT OF PATIENT CARE PER NURSING PROTOCOL Performed By: #### L 501.080 #### [facility] [address] [place], [address] FINGERSTICK GLU 192 mg/dL High 74-106 [facility] Comment on above: Result Comment: NANNETTE ARAGON OF PATIENT CARE PER NURSING PROTOCOL Performed By: #### L 501.080 #### [facility] [address] [place], [address] Discharge Instructionon 02-28 Discharge Instruction [facility] Medical Records Department [address] [place] [address] Instructions for Home/Discharge Instructions 03/23/24 1028 MR#: [id number] Acct: [id number] Name: FINESSE PRATHER Rep #: [id number] : 1935 89 From: Papi Ruiz MD PCP: Dr. Murphy Burton MD Status:ADM IN Discharge Instructions DC O2, CPAP, BIPAP needs Home O2 Discharge instructions: No Follow Up Care Test Results: Test results from this visit will be discussed in further detail at your follow-up appointment, if applicable. Discharge Plan Admission Admit Date/Time: 03/21/24 22:52 Primary Reason for Your Visit: Heart failure exacerbation Attending Provider: Papi Ruiz Primary Care Provider: Murphy Burton Consulting Providers: Antwon Vidal; Pillo Cordero Discharge Orders/Prescriptions Prescriptions: New potassium chloride 20 mEq Tablet,Er Particles/Crystals 20 meq PO BIDCM 30 Days Qty: 60 0RF lisinopril 10 mg Tablet 10 mg PO BID 30 Days Qty: 60 2RF Rx Instructions: Hold for SBP less than 130 mmHg furosemide [Lasix] 40 mg tablet 40 mg PO BID 30 Days Qty: 60 2RF Rx Instructions: Hold for SBP less than 120 mmHg Continued vitamin B complex Capsule 1 cap PO DAILY [facility] 250-2.5-0.5 mg capsule 1 cap PO BID hydralazine 10 mg tablet 10 mg PO TID PRN (Reason: hypertension) Patient Comments: TAKE 1 TABLET BY MOUTH THREE TIMES DAILY NEEDED FOR BLOOD PRESSURE GREATER THAN 180 melatonin 1 mg tablet 1 mg PO HS PRN (Reason: sleep) Patient Comments: TAKE 1 TABLET BY MOUTH AT BEDTIME NEEDED sertraline 50 mg tablet 50 mg PO DAILY Patient Comments: TAKE 1 TABLET BY MOUTH ONCE DAILY lisinopril 10 mg tablet 10 mg PO QHS Qty: 90 3RF nitroglycerin 0.4 MG tablet 0.4 mg SUBLINGUAL Q5M PRN (Reason: Chest Pain) Qty: 20 1RF aspirin 81 MG tablet 81 mg PO DAILY Patient Comments: STATES WAS NOT TOLD TO STOP FOR SURGERY metformin 500 mg tablet 500 mg PO BID multivitamin with minerals Tablet 1 tab PO DAILY ezetimibe 10 mg tablet 10 mg PO DAILY carvedilol 12.5 mg tablet 25 mg PO BID Discontinued furosemide 20 mg tablet 20 mg PO DAILY Referrals / Follow Up: Murphy Burton DO [Primary Care Provider] - Pillo Cordero MD [Med Staff - Active Staff] - Within 1 Month Jeni Knox PA [Med Staff - Adv Practice Prof] - Within 2 Weeks Disposition Disposition (needs filled in before D/C Order can be placed): Home, Self Care 03/23/24 1042 Papi Ruiz MD CC: Dr. Murphy Burton MD; Dr. Pillo Cordero MD; Dr. Antwon Vidal DO Signed Normal [facility] Magnesiumon 03-23-2024 Magnesium [Mass/Vol] 2.1 mg/dL Normal 1.6-2.6 [facility] Comment on above: Performed By: #### L 503.6620, L501.4020, L500.2500, L100.0100 #### [facility] [address] [place], [address] Phosphoruson 03-23-2024 Phosphate [Mass/Vol] 3.6 mg/dL Normal 2.5-4.9 [facility] Comment on above: Performed By: #### L 503.6620, L501.4020, L500.2500, L100.0100 #### [facility] [address] [place], [address] BNP,B-Type NATRIURETIC PEPTI Svetlana 03-22-2024 Natriuretic peptide B (Bld) [Mass/Vol] 638.5 pg/mL High 0-100 [facility] Comment on above: Performed By: #### L 503.6620, L501.4020, L500.2500, L100.0100 #### [facility] [address] [place], [address] Bedside Glucoseon 03-22-2024 FINGERSTICK GLU 178 mg/dL High 74-106 [facility] Comment on above: Result Comment: NANNETTE GEMENT OF PATIENT CARE PER NURSING PROTOCOL Performed By: #### L 501.080 #### [facility] [address] [place], [address] FINGERSTICK GLU 269 mg/dL High -106 [facility] Comment on above: Result Comment: NANNETTE GEMENT OF PATIENT CARE PER NURSING PROTOCOL Performed By: #### L 501.080 #### [facility] [address] [place], [address] FINGERSTICK GLU 145 mg/dL High -106 [facility] Comment on above: Result Comment: NANNETTE GEMENT OF PATIENT CARE PER NURSING PROTOCOL Performed By: #### L 501.080 #### [facility] [address] [place], [address] CBC W/Diff, Automatedon 12- Absolute Lymph 2.19 X10 3/uL Normal 0.83-4.51 [facility] Comment on above: Performed By: #### L 501.5200, L100.0100, L500.4050, L501.2300 #### [facility] [address] [place], [address] Absolute Neut 7.6 X10 3/uL Normal 2.0-7.7 [facility] Comment on above: Performed By: #### L 501.5200, L100.0100, L500.4050, L501.2300 #### [facility] [address] [place], [address] Basophils/100 WBC (Bld) 0.4 % Normal 0-1 [facility] Comment on above: Performed By: #### L 501.5200, L100.0100, L500.4050, L501.2300 #### [facility] [address] [place], [address] Eosinophils/100 WBC (Bld) 1.9 % Normal 0-5 [facility] Comment on above: Performed By: #### L 501.5200, L100.0100, L500.4050, L501.2300 #### [facility] [address] [place], [address] Erythrocyte distribution width (RBC) [Ratio] 12.6 % Normal 11.6-14.6 [facility] Comment on above: Performed By: #### L 501.5200, L100.0100, L500.4050, L501.2300 #### [facility] [address] [place], [address] Hematocrit (Bld) [Volume fraction] 41.0 % Normal 37-47 [facility] Comment on above: Performed By: #### L 501.5200, L100.0100, L500.4050, L501.2300 #### [facility] [address] [place], [address] Hemoglobin (Bld) [Mass/Vol] 13.9 g/dL Normal 12.0-15.0 [facility] Comment on above: Performed By: #### L 501.5200, L100.0100, L500.4050, L501.2300 #### [facility] [address] [place], [address] IG% 0.400 Normal 0.0-0.9 [facility] Comment on above: Result Comment: IG% - Immature Granulocytes (promyelocytes, myelocytes and metamyelocytes) > 1% indicates that a LEFT SHIFT is Present. Performed By: #### L 501.5200, L100.0100, L500.4050, L501.2300 #### [facility] [address] [place], [address] Lymphocytes/100 WBC (Bld) 19.2 % Normal 19-41 [facility] Comment on above: Performed By: #### L 501.5200, L100.0100, L500.4050, L501.2300 #### [facility] [address] [place], [address] MCH (RBC) [Entitic mass] 29.0 pg Normal 27.0-32.0 [facility] Comment on above: Performed By: #### L 501.5200, L100.0100, L500.4050, L501.2300 #### [facility] [address] [place], [address] MCHC (RBC) [Mass/Vol] 33.9 g/dL Normal 32-36 [facility] Comment on above: Performed By: #### L 501.5200, L100.0100, L500.4050, L501.2300 #### [facility] [address] [place], [address] MCV (RBC) [Entitic vol] 85.4 fL Normal 81-99 [facility] Comment on above: Performed By: #### L 501.5200, L100.0100, L500.4050, L501.2300 #### [facility] [address] [place], [address] Monocytes/100 WBC (Bld) 11.2 % High 0-10 [facility] Comment on above: Performed By: #### L 501.5200, L100.0100, L500.4050, L501.2300 #### [facility] [address] [place], [address] Neutrophils/100 WBC (Bld) 66.9 % Normal 47-70 [facility] Comment on above: Performed By: #### L 501.5200, L100.0100, L500.4050, L501.2300 #### [facility] [address] [place], [address] Nucleated RBC (Bld) [#/Vol] 0 10*3/uL Normal 0-5 [facility] Comment on above: Performed By: #### L 501.5200, L100.0100, L500.4050, L501.2300 #### [facility] [address] [place], [address] Platelet mean volume (Bld) [Entitic vol] 9.7 fL Normal 6.2-12.0 [facility] Comment on above: Performed By: #### L 501.5200, L100.0100, L500.4050, L501.2300 #### [facility] [address] [place], [address] Platelets (Bld) [#/Vol] 216 10*3/uL Normal 150-450 [facility] Comment on above: Performed By: #### L 501.5200, L100.0100, L500.4050, L501.2300 #### [facility] [address] [place], [address] RBC (Bld) [#/Vol] 4.80 10*6/uL Normal 4.2-5.4 [facility] Comment on above: Performed By: #### L 501.5200, L100.0100, L500.4050, L501.2300 #### [facility] [address] [place], [address] RDW SD 38.7 fl Normal 35.1-43.9 [facility] Comment on above: Performed By: #### L 501.5200, L100.0100, L500.4050, L501.2300 #### [facility] [address] [place], [address] WBC (Bld) [#/Vol] 11.4 10*3/uL High 4.4-11.0 [facility] Comment on above: Performed By: #### L 501.5200, L100.0100, L500.4050, L501.2300 #### [facility] [address] [place], [address] Chest 1 View (Portable)on Chest 1 View (Portable) [facility] Imaging Services [address] [place] [address] Chest 1 View (Portable) MR#: [id number] Acct: [id number] Name: FINESSE PRATHER Rep #: [id number] : 1935 F 89 From: Lb Jacobsen MD PCP: Dr. Murphy Burton MD Status: ADM IN Study: Chest 1 View (Portable) Date of Exam: 03/22/24 Exam# [id number] Ordering Dr: Antwon Vidal DO [id number] EXAM: XR CHEST, 1 VIEW CLINICAL INDICATION: PNA and AE CHF. TECHNIQUE: Frontal view of the chest. COMPARISON: Two-view chest 03/21/2024 FINDINGS: LUNGS AND PLEURAL SPACES: Central pulmonary vascular congestion, pulmonary edema and small pleural effusions. No pneumothorax. HEART: See below. MEDIASTINUM: Central airways and mediastinal contour are unremarkable. BONES/JOINTS: Degenerative changes of the spine. No acute fracture. SOFT TISSUES: Unremarkable. VASCULATURE: Surgical changes at the aortic root. RAD/Chest 1 View (Portable) IMPRESSION: Central pulmonary vascular congestion, pulmonary edema and small pleural effusions. Findings may indicate CHF. Electronically Signed: Lb Jacobsen MD at 7:48 EST , CC: Dr. Murphy Burton MD; Dr. Antwon de Anmol, DO [employer] W[employer] Operator: Signed Normal [facility] Comprehensive Metabolic Prof chuy 03-22-2024 Albumin [Mass/Vol] 3.3 g/dL Normal 3.2-5.0 [facility] Comment on above: Performed By: #### L 503.6620, L501.4020, L500.2500, L100.0100 #### [facility] [address] [place], [address] Albumin/Globulin [Mass ratio] 1.0 {ratio} Normal 0.9-2.4 [facility] Comment on above: Performed By: #### L 503.6620, L501.4020, L500.2500, L100.0100 #### [facility] [address] [place], [address] ALK P 79 U/L Normal 45-117 [facility] Comment on above: Performed By: #### L 503.6620, L501.4020, L500.2500, L100.0100 #### [facility] [address] [place], [address] ALT [Catalytic activity/Vol] 44 U/L Normal 13-56 [facility] Comment on above: Performed By: #### L 503.6620, L501.4020, L500.2500, L100.0100 #### [facility] [address] [place], [address] AST [Catalytic activity/Vol] 48 U/L High 15-37 [facility] Comment on above: Performed By: #### L 503.6620, L501.4020, L500.2500, L100.0100 #### [facility] [address] [place], [address] Bilirubin [Mass/Vol] 0.50 mg/dL Normal 0.20-1.00 [facility] Comment on above: Result Comment: For patients on eltrombopag therapy, use of Dimension [place] TBIL is not recommended. Performed By: #### L 503.6620, L501.4020, L500.2500, L100.0100 #### [facility] [address] [place], [address] BUN/CRE 20.8 RATIO High 10-20 [facility] Comment on above: Performed By: #### L 503.6620, L501.4020, L500.2500, L100.0100 #### [facility] [address] [place], [address] CA,Total 8.7 mg/dL Normal 8.5-10.1 [facility] Comment on above: Performed By: #### L 503.6620, L501.4020, L500.2500, L100.0100 #### [facility] [address] [place], [address] Chloride [Moles/Vol] 104 mmol/L Normal 98-107 [facility] Comment on above: Performed By: #### L 503.6620, L501.4020, L500.2500, L100.0100 #### [facility] [address] [place], [address] CO2 [Moles/Vol] 31.0 mmol/L Normal 21.0-32.0 [facility] Comment on above: Performed By: #### L 503.6620, L501.4020, L500.2500, L100.0100 #### [facility] [address] [place], [address] Creatinine [Mass/Vol] 0.58 mg/dL Normal 0.55-1.02 [facility] Comment on above: Result Comment: The validity of the calculated GFR GFRAA in patients over 70 years has not been determined. Clinical correlation is essential. Performed By: #### L 503.6620, L501.4020, L500.2500, L100.0100 #### [facility] [address] [place], [address] ECRCL 39.81 ml/min Normal [facility] Comment on above: Performed By: #### L 503.6620, L501.4020, L500.2500, L100.0100 #### [facility] [address] [place], [address] EST GFR - AA 127 mL/min Normal >60 [facility] Comment on above: Result Comment: Afri can Malagasy GFR Calc Performed By: #### L 503.6620, L501.4020, L500.2500, L100.0100 #### [facility] [address] [place], [address] GAP 4 Low 5-15 [facility] Comment on above: Performed By: #### L 503.6620, L501.4020, L500.2500, L100.0100 #### [facility] [address] [place], [address] GFR/1.73 sq M.predicted among non-blacks MDRD (S/P/Bld) [Vol rate/Area] 105 mL/min/{1.73_m2} Normal >60 [facility] Comment on above: Result Comment: Non- GFR Calc Performed By: #### L 503.6620, L501.4020, L500.2500, L100.0100 #### [facility] [address] [place], [address] Globulin (S) [Mass/Vol] 3.4 g/dL Normal 2.2-4.2 [facility] Comment on above: Performed By: #### L 503.6620, L501.4020, L500.2500, L100.0100 #### [facility] [address] [place], [address] Glucose [Mass/Vol] 151 mg/dL High 74-106 [facility] Comment on above: Result Comment: Fast ing Glucose result greater than or equal to 126 mg/dL suggests DIABETES MELLITUS per A.D.A. criteria. Performed By: #### L 503.6620, L501.4020, L500.2500, L100.0100 #### [facility] [address] [place], [address] Potassium [Moles/Vol] 3.2 mmol/L Low 3.5-5.1 [facility] Comment on above: Performed By: #### L 503.6620, L501.4020, L500.2500, L100.0100 #### [facility] [address] [place], [address] Sodium [Moles/Vol] 139 mmol/L Normal 136-145 [facility] Comment on above: Performed By: #### L 503.6620, L501.4020, L500.2500, L100.0100 #### [facility] [address] [place], [address] T PROT 6.7 g/dL Normal 6.4-8.2 [facility] Comment on above: Performed By: #### L 503.6620, L501.4020, L500.2500, L100.0100 #### [facility] [address] [place], [address] Urea nitrogen [Mass/Vol] 12 mg/dL Normal 7-18 [facility] Comment on above: Performed By: #### L 503.6620, L501.4020, L500.2500, L100.0100 #### [facility] [address] [place], [address] Consultation - Cardiologyon 03-22-2024 Consultation - Cardiology [facility] Medical Records Department [address] [place] [address] Consultation - Cardiology 03/22/24 0900 MR#: [id number] Acct: [id number] Name: FINESSE PRATHER Rep #: [id number] : 1935 89 From: Pillo Cordero MD PCP: Dr. Murphy Burton MD Status:ADM IN Location: [address] Assessment Plan Assessment/Plan (1) CHF exacerbation: QUALIFIERS: Heart failure type: unspecified Qualified Code(s): I50.9 - Heart failure, unspecified PLAN: She presents with congestive heart failure likely secondary to uncontrolled hypertension. Will recommend intravenous diuresis with Lasix and aggressively manage her blood pressure medications. She would likely need an additional calcium channel juan in addition to her beta- juan and WILLIAM inhibitor. (2) History of transcatheter aortic valve replacement (TAVR): PLAN: She is status post TAVR. At some point a limited echocardiogram will be performed to assess her ventricular function. Last echocardiogram from a year ago demonstrated preserved ejection fraction with mitral annular calcification. (3) Essential hypertension: PLAN: Patient presents with blood pressure elevation and I will recommend continuing the carvedilol 25 mg twice a day * Continue lisinopril 10 mg twice a day * Add amlodipine 5 mg a day HPI Consult Data Date of Consult: 03/22/24 HPI Narrative HPI Narrative: FINESSE PRATHER, is a 89 F who presents to the emergency room with shortness of breath. She says that this started a few days prior to admission. She denies any fever or paroxysmal nocturnal dyspnea or pedal edema. He remember I had seen her in the office in January and made some changes to her medications. She has a history of CAD status post RCA PTCA/stent (2016), hyperlipidemia, hypertension, moderate to severe aortic valve stenosis, with a history of bilateral carotid artery endarterectomy-remote. She had a TIA in 11/2020. She was evaluated [facility] in February 2022 for shortness of breath. She underwent a heart catheterization that showed severe coronary artery disease. Her echocardiogram showed ejection fraction of 65% and moderate to severe aortic valve stenosis. She was transferred to [facility] for CABG and AVR evaluation. She proceeded with drug-eluting stent to mid RCA and mid LAD on 04/01/2022. Post stenting, she returned to Emergency Department and transferred back to [facility] for shortness of breath and pulmonary edema. She was discharged and in few hours upon returning home, she presented back to the emergency department for shortness of breath. She again was transferred to [facility]. She ultimately proceeded with TAVR at [facility] on 04/25/2022 with a 23 mm Lerner LORELEI S3 valve. Echocardiogram post TAVR showed ejection fraction 50-55%, stage II diastolic dysfunction, mean aortic valve gradient 8 mmHg, dimensionless valve index of 0.53, valve area of 1.03 cm???, and a valve velocity max at 1.9 m/s. She has had some problems with her blood pressures and we have made some adjustments to her blood pressure medication. In the emergency room during this visit her blood pressure was over 200 systolic and over 100 diastolic. EKG demonstrated sinus rhythm with lateral ST depression. [facility] Medical History Moderate to severe aortic stenosis Depression Diabetes Osteoporosis Non-smoker Coronary artery disease Hypertension TIA (transient ischemic attack) Nonrheumatic aortic (valve) stenosis Essential hypertension Presence of stent in coronary artery ( 04/04/22) Carotid stenosis, left Occlusion and stenosis of left carotid artery Nonrheumatic mitral (valve) insufficiency Aortic valve disorders Atherosclerotic heart disease of yocha dehe coronary artery without angina pectoris HLD (hyperlipidemia) Occlusion and stenosis of right carotid artery PAD (peripheral artery disease) Home Medications ???Medication ???Instructions ???Recorded ???Last Taken ???Type nitroglycerin 0.4 mg sublingual 0.4 mg sublingual Q5M PRN Chest 07/11/16 03/19/22 Rx tablet Pain #20 tabs aspirin 81 mg tablet,delayed 81 mg PO DAILY HEART HEALTH 04/28/18 03/20/22 History release metformin 500 mg tablet 500 mg PO BID blood sugar 01/28/21 03/20/22 History omega-3 250 jj-pzw-nqh-lutein 2.5 1 cap PO BID EYE HEALTH 01/28/21 03/20/22 History mg-zeaxanthin 0.5 mg capsule ([facility]) vitamin B complex 1 cap PO DAILY SUPPLEMENT 01/28/21 03/20/22 History ezetimibe 10 mg tablet 10 mg PO DAILY CHOLESTEROL 03/20/22 03/20/22 History multivitamin with minerals 1 tab PO DAILY SUPPLEMENT 03/20/22 03/20/22 History hydralazine 10 mg tablet 10 mg PO TID PRN hypertension 05/15/22 Unknown History melatonin 1 mg tablet 1 mg PO HS PRN sleep 05/15/22 Unknown History sertraline 50 mg tablet 50 mg PO DAILY 05/15/22 Unknown History lisinopril 10 mg (more content not included)... Normal [facility] Hemoglobin A1con 03-22-2024 HbA1c (Bld) [Mass fraction] 6.6 % High 3.8-5.6 [facility] Comment on above: Result Comment: Norm al < 5.7 % Prediabetic 5.7 - 6.4 % Diabetic >or= 6.5 % Please note range changes. Performed By: #### L 503.6620, L501.4020, L500.2500, L100.0100 #### [facility] [address] [place], [address] Legionella Antigen Urineon 1 05-23-2023 LEGU URINE, CLEAN CATCH Legionella Antigen result interpretation: L pneumo Ag Ur Ql Negative Presumptive negative for Legionella pneumophila serogroup 1 antigen in urine, suggesting no recent or current infection. Legionella Ag, Urine Negative (See interpretation below) Normal [facility] Comment on above: Performed By: #### L 503.6620, L501.4020, L500.2500, L100.0100 #### [facility] [address] [place], [address] Lipid Profileon 03-22-2024 Cholesterol [Mass/Vol] 270 mg/dL High 200 [facility] Comment on above: Result Comment: <200 mg/dL Desirable 200-240 mg/dL Borderline >240 mg/dL High Risk Performed By: #### L 503.6620, L501.4020, L500.2500, L100.0100 #### [facility] [address] [place], [address] Cholesterol in HDL [Mass/Vol] 55 mg/dL Normal [facility] Comment on above: Result Comment: The drugs N-Acetylcysteine and Metamizole may falsely depress this assay. Reference Range HDL <40 mg/dL Low HDL Cholesterol HDL >or= 60 mg/dL High HDL Cholesterol Performed By: #### L 503.6620, L501.4020, L500.2500, L100.0100 #### [facility] [address] [place], [address] Cholesterol in LDL [Mass/Vol] 189 mg/dL High 0-130 [facility] Comment on above: Performed By: #### L 503.6620, L501.4020, L500.2500, L100.0100 #### [facility] [address] [place], [address] Cholesterol in VLDL [Mass/Vol] 26 mg/dL Normal 5-40 [facility] Comment on above: Performed By: #### L 503.6620, L501.4020, L500.2500, L100.0100 #### [facility] [address] [place], [address] Triglyceride [Mass/Vol] 129 mg/dL Normal [facility] Comment on above: Result Comment: The drugs N-Acetylcysteine and Metamizole may falsely depress this assay. Serum Triglycerides Reference Interval Normal <150 mg/dL Borderline high 150 - 199 mg/dL High 200 - 499 mg/dL Very High > or = 500 mg/dL Performed By: #### L 503.6620, L501.4020, L500.2500, L100.0100 #### [facility] [address] [place], [address] Magnesiumon 03-22-2024 Magnesium [Mass/Vol] 1.7 mg/dL Normal 1.6-2.6 [facility] Comment on above: Performed By: #### L 503.6620, L501.4020, L500.2500, L100.0100 #### [facility] [address] [place], [address] Phosphoruson 4 Phosphate [Mass/Vol] 3.2 mg/dL Normal 2.5-4.9 [facility] Comment on above: Performed By: #### L 503.6620, L501.4020, L500.2500, L100.0100 #### [facility] [address] [place], [address] Strep pneumoniae Antig(UR,CS F)on 03-22-2024 STPAG URINE INTERPRETATION Strep pneumoniae Antig(UR,CSF) Strep pneumoniae Antig(UR,CSF) Negative Urine Presumptive negative for pneumococcal pneumonia, suggesting no current or recent pneumococcal infection. Infection due to S pneumoniae cannot be ruled out since the antigen present in the sample may be below the detection limit of the test. Strep pneumo Test Negative URINE (See interpretation below) Normal [facility] Comment on above: Performed By: #### L 503.6620, L501.4020, L500.2500, L100.0100 #### [facility] [address] [facility] [place], [address] 12 Lead EKGon 03-21-2024 12 Lead EKG [facility] Cardiovascular Services [address] [place] [address] 12 Lead EKG 03/21/24 2151 MR#: [id number] Acct: [id number] Name: FINESSE PRATHER Rep #: [id number] : 1935 89 From: Pillo Cordero MD Attending Dr: Dr. Papi Ruiz MD Status: DIS IN Ordering Dr: Matthew Enrique DO Date: 4 Location: [facility] Sex: F C Admitted: 03/21/24 Test Reason : DYSRHYTHMIA Blood Pressure : */* mmHG Vent. Rate : 100 BPM Atrial Rate : 100 BPM P-R Int : 154 ms QRS Dur : 150 ms QT Int : 420 ms P-R-T Axes : 67 -44 122 degrees QTcB Int : 541 ms Normal sinus rhythm Left axis deviation Left bundle branch block Abnormal ECG Confirmed by PILLO CORDERO MD ([id number]), communications editor ERNESTINA GARCIA ([id number]) on 03/24/2024 2:24:01 PM Referred By: Confirmed By: PILLO CORDERO MD 03/24/24 1424 Date Pillo Cordero MD CC: Dr. Matthew Enrique DO; Dr. Murphy Burton MD; Dr. Papi Ruiz MD Signed Normal [facility] 12 Lead EKG [facility] [address] [place] [address] 12 Lead EKG 03/21/242058 MR#: [id number] Acct: [id number] Name: FINESSE PRATHER Rep #: [id number] : 1935 89 From: Pillo Cordero MD Attending Dr: Dr. Papi Ruiz MD Status: DIS IN Ordering Dr: Matthew Enrique DO Date: 4 Location: [facility] Sex: F C Admitted: 03/21/24 Test Reason : DYSRHYTHMIA Blood Pressure : */* mmHG Vent. Rate : 102 BPM Atrial Rate : 102 BPM P-R Int : 158 ms QRS Dur : 148 ms QT Int : 416 ms P-R-T Axes : 59 -45 120 degrees QTcB Int : 542 ms Sinus tachycardia Left axis deviation Left bundle branch block Abnormal ECG Confirmed by ABIMAEL MELENDEZ, PILLO ([id number]), communications editor ERNESTINA GARCIA ([id number]) on 03/24/2024 2:23:51 PM Referred By: Confirmed By: PILLO CORDERO MD 03/24/24 1423 Date Pillo Cordero MD CC: Dr. Matthew Enrique DO; Dr. Murphy Burton MD; Dr. Papi Ruiz MD Signed [facility] BNP,B-Type NATRIURETIC PEPTI Svetlana 03-21-2024 Natriuretic peptide B (Bld) [Mass/Vol] 253.0 pg/mL High 0-100 [facility] Comment on above: Performed By: #### L 503.6620, L501.4020, L500.2500, L100.0100 #### [facility] [address] [facility] [place], [address] Basic Metabolic Profile (BMP )on 03-21-2024 BUN/CRE 22.7 RATIO High 10-20 [facility] Comment on above: Order Comment: 'TROP ' Serial specimen #1, #2 or #3: 1 Performed By: #### L 503.6620, L501.4020, L500.2500, L100.0100 #### [facility] [address] [place], [address] CA,Total 9.4 mg/dL Normal 8.5-10.1 [facility] Comment on above: Order Comment: 'TROP ' Serial specimen #1, #2 or #3: 1 Performed By: #### L 503.6620, L501.4020, L500.2500, L100.0100 #### [facility] [address] [place], [address] Chloride [Moles/Vol] 103 mmol/L Normal 98-107 [facility] Comment on above: Order Comment: 'TROP ' Serial specimen #1, #2 or #3: 1 Performed By: #### L 503.6620, L501.4020, L500.2500, L100.0100 #### [facility] [address] [place], [address] CO2 [Moles/Vol] 28.0 mmol/L Normal 21.0-32.0 [facility] Comment on above: Order Comment: 'TROP ' Serial specimen #1, #2 or #3: 1 Performed By: #### L 503.6620, L501.4020, L500.2500, L100.0100 #### [facility] [address] [place], [address] Creatinine [Mass/Vol] 0.79 mg/dL Normal 0.55-1.02 [facility] Comment on above: Order Comment: 'TROP ' Serial specimen #1, #2 or #3: 1 Result Comment: The validity of the calculated GFR GFRAA in patients over 70 years has not been determined. Clinical correlation is essential. Performed By: #### L 503.6620, L501.4020, L500.2500, L100.0100 #### [facility] [address] [place], [address] ECRCL 40.89 ml/min Normal [facility] Comment on above: Order Comment: 'TROP ' Serial specimen #1, #2 or #3: 1 Performed By: #### L 503.6620, L501.4020, L500.2500, L100.0100 #### [facility] [address] [place], [address] EST GFR - AA 88 mL/min Normal >60 [facility] Comment on above: Order Comment: 'TROP ' Serial specimen #1, #2 or #3: 1 Result Comment: Afri can Malagasy GFR Calc Performed By: #### L 503.6620, L501.4020, L500.2500, L100.0100 #### [facility] [address] [place], [address] GAP 6 Normal 5-15 [facility] Comment on above: Order Comment: 'TROP ' Serial specimen #1, #2 or #3: 1 Performed By: #### L 503.6620, L501.4020, L500.2500, L100.0100 #### [facility] [address] [place], [address] GFR/1.73 sq M.predicted among non-blacks MDRD (S/P/Bld) [Vol rate/Area] 73 mL/min/{1.73_m2} Normal >60 [facility] Comment on above: Order Comment: 'TROP ' Serial specimen #1, #2 or #3: 1 Result Comment: Non- GFR Calc Performed By: #### L 503.6620, L501.4020, L500.2500, L100.0100 #### [facility] [address] [place], [address] Glucose [Mass/Vol] 302 mg/dL High 74-106 [facility] Comment on above: Order Comment: 'TROP ' Serial specimen #1, #2 or #3: 1 Result Comment: Gluc ose result greater than or equal to 200 mg/dL suggests DIABETES MELLITUS per A.D.A. criteria. Performed By: #### L 503.6620, L501.4020, L500.2500, L100.0100 #### [facility] [address] [place], [address] Potassium [Moles/Vol] 3.7 mmol/L Normal 3.5-5.1 [facility] Comment on above: Order Comment: 'TROP ' Serial specimen #1, #2 or #3: 1 Performed By: #### L 503.6620, L501.4020, L500.2500, L100.0100 #### [facility] [address] [place], [address] Sodium [Moles/Vol] 137 mmol/L Normal 136-145 [facility] Comment on above: Order Comment: 'TROP ' Serial specimen #1, #2 or #3: 1 Performed By: #### L 503.6620, L501.4020, L500.2500, L100.0100 #### [facility] [address] [place], [address] Urea nitrogen [Mass/Vol] 18 mg/dL Normal 7-18 [facility] Comment on above: Order Comment: 'TROP ' Serial specimen #1, #2 or #3: 1 Performed By: #### L 503.6620, L501.4020, L500.2500, L100.0100 #### [facility] [address] [place], [address] CBC W/Diff, Automatedon 12-2 Absolute Lymph 1.91 X10 3/uL Normal 0.83-4.51 [facility] Comment on above: Performed By: #### L 503.6620, L501.4020, L500.2500, L100.0100 #### [facility] [address] [place], [address] Absolute Neut 5.9 X10 3/uL Normal 2.0-7.7 [facility] Comment on above: Performed By: #### L 503.6620, L501.4020, L500.2500, L100.0100 #### [facility] [address] [place], [address] Basophils/100 WBC (Bld) 1.0 % Normal 0-1 [facility] Comment on above: Performed By: #### L 503.6620, L501.4020, L500.2500, L100.0100 #### [facility] [address] [place], [address] Eosinophils/100 WBC (Bld) 6.1 % High 0-5 [facility] Comment on above: Performed By: #### L 503.6620, L501.4020, L500.2500, L100.0100 #### [facility] [address] [place], [address] Erythrocyte distribution width (RBC) [Ratio] 12.6 % Normal 11.6-14.6 [facility] Comment on above: Performed By: #### L 503.6620, L501.4020, L500.2500, L100.0100 #### [facility] [address] [place], [address] Hematocrit (Bld) [Volume fraction] 42.1 % Normal 37-47 [facility] Comment on above: Performed By: #### L 503.6620, L501.4020, L500.2500, L100.0100 #### [facility] [address] [place], [address] Hemoglobin (Bld) [Mass/Vol] 13.9 g/dL Normal 12.0-15.0 [facility] Comment on above: Performed By: #### L 503.6620, L501.4020, L500.2500, L100.0100 #### [facility] [address] [place], [address] IG% 0.400 Normal 0.0-0.9 [facility] Comment on above: Result Comment: IG% - Immature Granulocytes (promyelocytes, myelocytes and metamyelocytes) > 1% indicates that a LEFT SHIFT is Present. Performed By: #### L 503.6620, L501.4020, L500.2500, L100.0100 #### [facility] [address] [place], [address] Lymphocytes/100 WBC (Bld) 20.4 % Normal 19-41 [facility] Comment on above: Performed By: #### L 503.6620, L501.4020, L500.2500, L100.0100 #### [facility] [address] [place], [address] MCH (RBC) [Entitic mass] 28.7 pg Normal 27.0-32.0 [facility] Comment on above: Performed By: #### L 503.6620, L501.4020, L500.2500, L100.0100 #### [facility] [address] [place], [address] MCHC (RBC) [Mass/Vol] 33.0 g/dL Normal 32-36 [facility] Comment on above: Performed By: #### L 503.6620, L501.4020, L500.2500, L100.0100 #### [facility] [address] [place], [address] MCV (RBC) [Entitic vol] 86.8 fL Normal 81-99 [facility] Comment on above: Performed By: #### L 503.6620, L501.4020, L500.2500, L100.0100 #### [facility] [address] [place], [address] Monocytes/100 WBC (Bld) 9.2 % Normal 0-10 [facility] Comment on above: Performed By: #### L 503.6620, L501.4020, L500.2500, L100.0100 #### [facility] [address] [place], [address] Neutrophils/100 WBC (Bld) 62.9 % Normal 47-70 [facility] Comment on above: Performed By: #### L 503.6620, L501.4020, L500.2500, L100.0100 #### [facility] [address] [place], [address] Nucleated RBC (Bld) [#/Vol] 0 10*3/uL Normal 0-5 [facility] Comment on above: Performed By: #### L 503.6620, L501.4020, L500.2500, L100.0100 #### [facility] [address] [place], [address] Platelet mean volume (Bld) [Entitic vol] 10.4 fL Normal 6.2-12.0 [facility] Comment on above: Performed By: #### L 503.6620, L501.4020, L500.2500, L100.0100 #### [facility] [address] [place], [address] Platelets (Bld) [#/Vol] 232 10*3/uL Normal 150-450 [facility] Comment on above: Performed By: #### L 503.6620, L501.4020, L500.2500, L100.0100 #### [facility] [address] [place], [address] RBC (Bld) [#/Vol] 4.85 10*6/uL Normal 4.2-5.4 [facility] Comment on above: Performed By: #### L 503.6620, L501.4020, L500.2500, L100.0100 #### [facility] [address] [place], [address] RDW SD 39.7 fl Normal 35.1-43.9 [facility] Comment on above: Performed By: #### L 503.6620, L501.4020, L500.2500, L100.0100 #### [facility] [address] [place], [address] WBC (Bld) [#/Vol] 9.3 10*3/uL Normal 4.4-11.0 [facility] Comment on above: Performed By: #### L 503.6620, L501.4020, L500.2500, L100.0100 #### [facility] [address] [place], [address] Chest PA and Lateralon 03-21 Chest PA and Lateral [facility] Imaging Services [address] [place] [address] Chest PA and Lateral MR#: [id number] Acct: [id number] Name: FINESSE PRATHER Rep #: [id number] : 1935 F 89 From: Eulogio mary MD PCP: Dr. Murphy Burton MD Status: [facility] Study: Chest PA and Lateral Date of Exam: 03/21/24 Exam# [id number] Ordering Dr: Matthew Enrique DO [id number] INDICATION: Shortness of breath EXAMINATION/TECHNIQUE: X-RAY - XR Chest 2 Views COMPARISON: 04/19/2022. FINDINGS: Bilateral patchy opacities. Tortuous and calcified thoracic aorta. The heart is mildly enlarged. Questionable trace bilateral pleural effusions. No pneumothorax. Degenerative changes of the thoracic spine. RAD/Chest PA and Lateral IMPRESSION: Bilateral patchy opacities may represent edema and/or infection. Questionable trace bilateral pleural effusions. Electronically Signed: Eulogio Demarco MD at 21:56 EST , CC: Dr. Matthew Enrique DO; Dr. Murphy Burton MD Carpet Yarn Winder Operator: Signed Normal [facility] Echo Completeon 03-21-2024 Echo Complete [facility] [address] [place] [address] Echo Complete 03/22/24 1008 MR#: [id number] Acct: [id number] Name: FINESSE PRATHER Rep #: [id number] : 1935 89 From: Pillo Cordero MD Attending Dr: Dr. Papi Ruiz MD Status: ADM IN Ordering Dr: Antwon Vidal DO Date: 03/21/24 Location: U Sex: F C Admitted: 03/21/24 Reason For Study: Chest Pain Procedure This was a 2D Doppler, Color Flow transthoracic echocardiogram. Exam performed portable in patient room. Left Ventricle Normal LV size. Mild concentric left ventricular hypertrophy. Left ventricular systolic function is normal. The left ventricular ejection fraction is 55 %. No regional wall motion abnormalities noted. Right Ventricle Normal RV size. Normal systolic function. Atria Normal left atrium. Normal right atrium. Mitral Valve There is moderate to severe mitral annular calcification. Trivial eccentric mitral valve insufficiency. Tricuspid Valve Normal tricuspid valve. Mild to moderate (1-2+) tricuspid valve insufficiency. Pulmonary artery systolic pressure is 44 mmHg. Aortic Valve Peak aortic valve gradient 25 mmHg. Mean aortic valve gradient 16 mmHg. Bioprosthetic aortic valve. Pulmonic Valve Normal pulmonic valve. Great Vessels Calcified aortic root. The pulmonary artery is normal size. Inferior vena cava collapse with respiration. Pericardium/Pleural No pericardial effusion. MMode/2D Measurements Calculations LVIDd: 3.9 cm IVSd: 1.2 cm LVOT diam: 1.7 cm LVIDs: 2.8 cm LVPWd: 1.2 cm LVOT area: 2.4 cm2 RVDd: 3.5 cm FS: 28.1 % asc Aorta Diam: 3.4 cm LAV(MOD-bp): 44.3 ml LVAd ap4: 18.8 cm2 LAV(MOD-bp) Indexed: 27.9 ml/m2 LVLd ap4: 6.5 cm LAV(MOD-sp2): 55.1 ml EDV(MOD-sp4): 44.0 ml LAV(MOD-sp4): 32.6 ml EDV(sp4-el): 45.8 ml LVAs ap4: 10.8 cm2 LVLs ap4: 5.3 cm ESV(MOD-sp4): 18.0 ml ESV(sp4-el): 18.9 ml EF(MOD-sp4): 59.0 % EF(sp4-el): 58.8 % SV(MOD-sp4): 25.9 ml SV(sp4-el): 27.0 ml LA A4 area: 14.8 cm2 SI(MOD-sp4): 16.3 ml/m2 LA dimension(2D): 4.0 cm RA A4 area: 12.9 cm2 TAPSE: 2.1 cm Time Measurements MV dec time: 0.32 sec Doppler Measurements Calculations MV E max jay: 101.6 cm/sec Lat Peak E' Jay: 4.5 cm/sec Med Peak E' Jay: 2.8 cm/sec MV A max jay: 119.7 cm/sec E/E' lat: 22.4 E/E' med: 35.6 MV E/A: 0.85 MV V2 max: 131.4 cm/sec Ao V2 max: 252.5 cm/sec MV max P.9 mmHg MV dec slope: 323.1 cm/sec2 Ao max P.7 mmHg MV V2 mean: 76.3 cm/sec Ao V2 mean: 193.4 cm/sec MV mean P.8 mmHg Ao mean P.1 mmHg MV V2 VTI: 42.8 cm Ao V2 VTI: 52.0 cm AV (velocity ratio): 0.57 MVA(VTI): 1.6 cm2 LIDIA(I,D): 1.4 cm2 LIDIA(V,D): 1.2 cm2 LV V1 max: 129.7 cm/sec SV(LVOT): 70.4 ml PA V2 max: 105.1 cm/sec LV V1 max P.8 mmHg LV V1 mean P.2 mmHg LV V1 mean: 98.1 cm/sec LV V1 VTI: 29.4 cm TR max jay: 313.4 cm/sec TR max P.3 mmHg ECHO/Echo Complete Interpretation Summary Normal LV size. Left ventricular systolic function is normal. The left ventricular ejection fraction is 55 %. Mild concentric left ventricular hypertrophy. Bioprosthetic aortic valve. Mean aortic valve gradient 16 mmHg. Ordering Physician: Antwon Vidal Referring Physician: Murphy Burton Performed By: Karmen Munoz, RDYANG, RVT 03/22/24 1335 Date Pillo Cordero MD CC: Dr. Murphy Burton MD; Dr. Antwon Vidal DO; Dr. Papi Ruiz MD Date Dictated: 03/22/24 1008 Date Transcribed: 03/22/24 1335 Carpet Yarn Winder Operator: Signed Normal [facility] Emergency Department Summary on 03-21-2024 Emergency Department Summary [facility] Medical Records Department [address] [place] [address] Emergency Department Summary 03/21/24 MR#: [id number] Acct: [id number] Name: FINESSE PRATHER Rep #: [id number] : 1935 89 From: Matthew Enrique DO PCP: Dr. Murphy Burton MD Status:ADM IN Location: [place] [address] HPI History of Present Illness Chief Complaint: Shortness of Breath Narrative Narrative: Chief complaint and HPI: Shortness of breath. 89-year-old female with multiple comorbidities including DM, CAD status post PCI, TIA, HLD, PAD presents for evaluation of shortness of breath. Patient states for the past several days she has had URI type symptoms including a cough. She states her symptoms were improving today but later worsened this evening with increased shortness of breath. On EMS arrival, patient was was found to be hypoxic at 71% on room air. She was placed on a 15 L nonrebreather and given a DuoNeb prior to arrival. She denies any fever, chills, chest pain, abdominal pain, nausea, vomiting, dysuria. Review of systems: See HPI Medications: As listed on the chart Allergies: As listed on the chart PFSH: Per chart Vital signs: As listed on the chart. Reviewed. Physical exam: Gen: A O x3 Head: Normocephalic, atraumatic Eyes: No sclera icterus, conjunctiva clear ENT: Moist mucous membranes Neck: Trachea midline, No JVD CV: Tachycardic, regular rhythm, no peripheral edema Resp: Lungs diminished bilaterally and coarse, tight with poor airflow, on 15 L nonrebreather GI: Abd soft, non-distended, non-tender, no r/r/g Musc: Full ROM, no deformity Skin: Warm, dry Neuro: Alert, oriented, grossly intact, sensation intact Psych: Cooperative, appropriate mood and affect [facility] Medical History Moderate to severe aortic stenosis Depression Diabetes Osteoporosis Non-smoker Coronary artery disease Hypertension TIA (transient ischemic attack) Nonrheumatic aortic (valve) stenosis Essential hypertension Presence of stent in coronary artery ( 04/04/22) Carotid stenosis, left Occlusion and stenosis of left carotid artery Nonrheumatic mitral (valve) insufficiency Aortic valve disorders Atherosclerotic heart disease of yocha dehe coronary artery without angina pectoris HLD (hyperlipidemia) Occlusion and stenosis of right carotid artery PAD (peripheral artery disease) Home Medications ???Medication ???Instructions ???Recorded ???Last Taken ???Type nitroglycerin 0.4 mg sublingual 0.4 mg sublingual Q5M PRN Chest 07/11/16 03/19/22 Rx tablet Pain #20 tabs aspirin 81 mg tablet,delayed 81 mg PO DAILY HEART HEALTH 04/28/18 03/20/22 History release metformin 500 mg tablet 500 mg PO BID blood sugar 01/28/21 03/20/22 History omega-3 250 sy-shq-rna-lutein 2.5 1 cap PO BID EYE HEALTH 01/28/21 03/20/22 History mg-zeaxanthin 0.5 mg capsule ([facility]) vitamin B complex 1 cap PO DAILY SUPPLEMENT 01/28/21 03/20/22 History ezetimibe 10 mg tablet 10 mg PO DAILY CHOLESTEROL 03/20/22 03/20/22 History multivitamin with minerals 1 tab PO DAILY SUPPLEMENT 03/20/22 03/20/22 History hydralazine 10 mg tablet 10 mg PO TID PRN hypertension 05/15/22 Unknown History melatonin 1 mg tablet 1 mg PO HS PRN sleep 05/15/22 Unknown History sertraline 50 mg tablet 50 mg PO DAILY 05/15/22 Unknown History lisinopril 10 mg tablet 10 mg PO QHS #90 tabs 02/16/24 Unknown Rx carvedilol 12.5 mg tablet 25 mg PO BID 03/21/24 Unknown History furosemide 20 mg tablet 20 mg PO DAILY 03/21/24 Unknown History Allergy/AdvReac Type Severity Reaction Status Date / Time rosuvastatin AdvReac Severe Myalgias Verified 03/21/24 20:14 simvastatin AdvReac Severe myalgias Verified 03/21/24 20:14 Family History Father CAD (coronary artery disease) Hypertension Myocardial infarction, Onset Age: 80 Sister CVA (cerebral vascular accident), Onset Age: 66 Diabetes Arthritis Mother Cancer Thyroid Surgical History History of transcatheter aortic valve replacement (TAVR) ( 04/25/22) History of right and left heart catheterization (LHC) ( 03/21/22) Presence of coronary angioplasty implant and graft ( 07/10/16) History of left-sided carotid endarterectomy (05/05/17) History of hysterectomy History of CEA (carotid endarterectomy) ( 2010) Social History Smoking Status: Never smoker second hand exposure: No alcohol intake: never substance use type: does not use caffeine: No EXAM Physical Exam Const Vital Signs: 03/21/24 20:15 03/21/24 20:19 03/21/24 20:22 Temperature 98.2 F 98.2 F Temperature Source Oral Oral (more content not included)... Normal [facility] H AND P Exam - [facility] 03-21-2024 H&P Exam - Hospitalist [facility] Medical Records Department [address] [place] [address] H P Exam - Hospitalist 03/21/242235 MR#: [id number] Acct: [id number] Name: FINESSE PRATHER Rep #: [id number] : 1935 89 From: Antwon Vidal DO PCP: Dr. Murphy Burton MD Status:ADM IN Location: [place] [id number] HPI - General General Date of Admission: 03/21/24 Date of Service: 03/21/24 Chief Complaint: SOB and Cough. HPI Narrative FINESSE PRATHER, is a 89 F with a past medical history of essential hypertension; on furosemide, carvedilol, lisinopril and hydralazine, hyperlipidemia; on ezetmibe, obesity; with BMI of 30.1 this admission, DM-2; of unknown control on metformin, CAD; s/p stents (2016) and (2022) on BASA and prn SL NTG, history of nonrheumatic vezxjdaq-sj-uswqtx stenosis of aortic valve; s/p TAVR (2022), history of bilateral carotid stenosis; s/p Right CEA ( 2010) and Left CEA (2017), history of TIA, history of PAD, history of depression; on sertraline, osteoporosis and OA who presents to [facility] ER complaining of SOB and cough. Ms. Prather reports her symptoms began approximately four to five days prior to admission with an URI that included an increasingly productive cough with greenish sputum. Though she transiently improved, earlier this evening acutely worsened with SOB at rest with her daughter present at the bedside statin she has had great difficulty controllin her elevated blood pressure near 200 mmHg systolic in spite of giving her medications as prescribed. She then activated EMS who noted her to be hypoxic at 71% on RA and she was then immediately placed on 15L NRB followed by a duoneb prior to arrival that modestly improved her symptoms. She denies associated fever, chills, nausea, vomiting, diarrhea, constipation, chest pain or dysuria. In the ER she was noted to have CXR evidence of bilateral infiltrates consistent with what the ER physician suspected was Pneumonia complicated by an elevated BNP of 253 pg/mL present on admission consistent with suspected superimposed AE CHF of uncertain type causing clinical evidence of Acute Respiratory Insufficiency and she was then admitted to the PCU for ongoing care for a stay that was expected to extend beyond 2 midnights. [facility] Medical History Moderate to severe aortic stenosis Depression Diabetes Osteoporosis Non-smoker Coronary artery disease Hypertension TIA (transient ischemic attack) Nonrheumatic aortic (valve) stenosis Essential hypertension Presence of stent in coronary artery ( 04/04/22) Carotid stenosis, left Occlusion and stenosis of left carotid artery Nonrheumatic mitral (valve) insufficiency Aortic valve disorders Atherosclerotic heart disease of [place] dehe coronary artery without angina pectoris HLD (hyperlipidemia) Occlusion and stenosis of right carotid artery PAD (peripheral artery disease) Home Medications ???Medication ???Instructions ???Recorded ???Last Taken ???Type nitroglycerin 0.4 mg sublingual 0.4 mg sublingual Q5M PRN Chest 07/11/16 03/19/22 Rx tablet Pain #20 tabs aspirin 81 mg tablet,delayed 81 mg PO DAILY HEART HEALTH 04/28/18 03/20/22 History release metformin 500 mg tablet 500 mg PO BID blood sugar 01/28/21 03/20/22 History omega-3 250 bg-wht-qze-lutein 2.5 1 cap PO BID EYE HEALTH 01/28/21 03/20/22 History mg-zeaxanthin 0.5 mg capsule ([facility]) vitamin B complex 1 cap PO DAILY SUPPLEMENT 01/28/21 03/20/22 History ezetimibe 10 mg tablet 10 mg PO DAILY CHOLESTEROL 03/20/22 03/20/22 History multivitamin with minerals 1 tab PO DAILY SUPPLEMENT 03/20/22 03/20/22 History hydralazine 10 mg tablet 10 mg PO TID PRN hypertension 05/15/22 Unknown History melatonin 1 mg tablet 1 mg PO HS PRN sleep 05/15/22 Unknown History sertraline 50 mg tablet 50 mg PO DAILY 05/15/22 Unknown History lisinopril 10 mg tablet 10 mg PO QHS #90 tabs 02/16/24 Unknown Rx carvedilol 12.5 mg tablet 25 mg PO BID 03/21/24 Unknown History furosemide 20 mg tablet 20 mg PO DAILY 03/21/24 Unknown History Allergy/AdvReac Type Severity Reaction Status Date / Time rosuvastatin AdvReac Severe Myalgias Verified 03/21/24 20:14 simvastatin AdvReac Severe myalgias Verified 03/21/24 20:14 Family History Father CAD (coronary artery disease) Hypertension Myocardial infarction, Onset Age: 80 Sister CVA (cerebral vascular accident), Onset Age: 66 Diabetes Arthritis Mother Cancer Thyroid Surgical History History of transcatheter aortic valve replacement (TAVR) ( 04/25/22) History of right and left heart catheterization (LHC) ( 03/21/22) Presence of coronary angioplasty implant and graft ( 07/10/16) History (more content not included)... Normal [facility] L501.4020on 03-21-2024 TROPONIN-I HS 50 pg/mL Normal 3.0-54.0 [facility] Comment on above: Order Comment: 'TROP ' Serial specimen #1, #2 or #3: 1 Result Comment: Lexis ponce Note: New Test Units and Gender Specific Reference Ranges. For more information see Policy Stat Procedure [place] High Sensitivity Troponin (TNIH) and attachments. Performed By: #### L 503.6620, L501.4020, L500.2500, L100.0100 #### [facility] [address] [place], [address] Lactic Acidon 03-21-2024 Lactate [Moles/Vol] 1.7 mmol/L Normal 0.4-1.9 [facility] Comment on above: Order Comment: Y Performed By: #### L 501.080 #### [facility] [address] [place], [address] M100.678on 03-21-2024 M100.678 Pending SARS-CoV-2 (COVID 19) Negative INFLUENZA A Negative INFLUENZA B Negative RSV PCR Negative Normal [facility] Comment on above: Performed By: #### L 503.6620, L501.4020, L500.2500, L100.0100 #### [facility] [address] [place], [address] Thyroid Stim Hormone (TSH)on 03-21-2024 TSH 4.100 uIU/mL High 0.358-3.740 [facility] Comment on above: Performed By: #### L 503.6620, L501.4020, L500.2500, L100.0100 #### [facility] [address] [place], [address] Venous Blood Gason 4 Blood Gas Type RUPERT [facility] Comment on above: Performed By: #### L 503.6620, L501.4020, L500.2500, L100.0100 #### [facility] [address] [place], [address] CO2 [Moles/Vol] 28 mmol/L Normal 23-33 [facility] Comment on above: Performed By: #### L 503.6620, L501.4020, L500.2500, L100.0100 #### [facility] [address] [place], [address] FI02 5.0 [facility] Comment on above: Performed By: #### L 503.6620, L501.4020, L500.2500, L100.0100 #### [facility] [address] [place], [address] HCO3 (Bld) [Moles/Vol] 27 mmol/L High 22-26 [facility] Comment on above: Performed By: #### L 503.6620, L501.4020, L500.2500, L100.0100 #### [facility] [address] [place], [address] O2 Delivery Dev Not entered [facility] Comment on above: Performed By: #### L 503.6620, L501.4020, L500.2500, L100.0100 #### [facility] [address] [place], [address] SITE Not entered [facility] Comment on above: Performed By: #### L 503.6620, L501.4020, L500.2500, L100.0100 #### [facility] [address] [place], [address] VBG BE 2 mmol/L Normal -1.0-3.5 [facility] Comment on above: Performed By: #### L 503.6620, L501.4020, L500.2500, L100.0100 #### [facility] [address] [place], [address] VBG pCO2 45.3 mmHg Normal 41-51 [facility] Comment on above: Performed By: #### L 503.6620, L501.4020, L500.2500, L100.0100 #### [facility] [address] [place], [address] VBG pH 7.38 Normal 7.32-7.42 [facility] Comment on above: Performed By: #### L 503.6620, L501.4020, L500.2500, L100.0100 #### [facility] [address] [place], [address] VBG PO2 36 mmHg Normal 25-40 [facility] Comment on above: Performed By: #### L 503.6620, L501.4020, L500.2500, L100.0100 #### [facility] [address] [place], [address] VBG SO2 68 Normal 50-70 [facility] Comment on above: Performed By: #### L 503.6620, L501.4020, L500.2500, L100.0100 #### [facility] [address] [place], [address] Cardiology Visit Reporton Cardiology Visit Report [facility] [place] [facility] [address] [place] [address] OFFICE VISIT Date of Service: 02/16/24 MR#: [id number] Acct: [id number] Name: FINESSE PRATHER Rep #: [id number] : 1935 Provider: Dr. Pillo Cordero MD Age/Sex: 88/F Location: [facility] Status: Signed HPI HPI History of Present Illness Details: Finesse Prather is an 88 year-old white female with a history of CAD status post RCA PTCA/stent (2016), hyperlipidemia, hypertension, moderate to severe aortic valve stenosis, with a history of bilateral carotid artery endarterectomy-remote. She had a TIA in 11/2020. She was evaluated [facility] in February 2022 for shortness of breath. She underwent a heart catheterization that showed severe coronary artery disease. Her echocardiogram showed ejection fraction of 65% and moderate to severe aortic valve stenosis. She was transferred to [facility] for CABG and AVR evaluation. She proceeded with drug-eluting stent to mid RCA and mid LAD on 04/01/2022. Post stenting, she returned to Emergency Department and transferred back to [facility] for shortness of breath and pulmonary edema. She was discharged and in few hours upon returning home, she presented back to the emergency department for shortness of breath. She again was transferred to [facility]. She ultimately proceeded with TAVR at [facility] on 04/25/2022 with a 23 mm Lerner LORELEI S3 valve. Echocardiogram post TAVR showed ejection fraction 50-55%, stage II diastolic dysfunction, mean aortic valve gradient 8 mmHg, dimensionless valve index of 0.53, valve area of 1.03 cm???, and a valve velocity max at 1.9 m/s. She denies chest, arm, jaw, or neck discomfort. She denies palpitations. She denies bilateral lower extremity edema. She denies claudication. She denies shortness of breath with activity, shortness of breath at rest, orthopnea, or PND. She denies chronic cough. She denies significant, sudden weight gain. She denies lightheadedness, dizziness, near-syncope, or syncope. She denies blood in urine, blood in stool, or epistaxis. He denies fever with chills. She denies myalgia. She denies fatigue. Intake Vital Signs 12/23/22 10:29 04 09:10 02/16/24 09:27 Height 4 ft 11 in 4 ft 11 in 4 ft 11 in Weight: 141 lb BMI 28.5 BP 132/67 H Blood Pressure Location Lt brachial Position Sitting Respiration 16 Pulse 61 Pulse Source Monitor Intake Visit Reasons: 1 Y FU/PREV PFM Nurse Informaticist Required: No Is patient in pain?: No Allergies rosuvastatin Adverse Reaction (Severe, Verified 02/16/24 09:29) Myalgias simvastatin Adverse Reaction (Severe, Verified 02/16/24 09:29) myalgias Medications ???Medication ???Instructions ???Recorded ???Confirmed ???Type nitroglycerin 0.4 mg sublingual 0.4 mg sublingual Q5M PRN Chest 07/11/16 02/16/24 Rx tablet Pain #20 tabs aspirin 81 mg tablet,delayed 81 mg PO DAILY HEART HEALTH 04/28/18 02/16/24 History release metformin 500 mg tablet 500 mg PO BID blood sugar 01/28/21 02/16/24 History omega-3 250 az-zya-her-lutein 2.5 1 cap PO BID EYE HEALTH 01/28/21 02/16/24 History mg-zeaxanthin 0.5 mg capsule ([facility]) vitamin B complex 1 cap PO DAILY SUPPLEMENT 01/28/21 02/16/24 History ezetimibe 10 mg tablet 10 mg PO DAILY CHOLESTEROL 03/20/22 02/16/24 History multivitamin with minerals 1 tab PO DAILY SUPPLEMENT 03/20/22 02/16/24 History hydralazine 10 mg tablet 10 mg PO TID PRN hypertension 05/15/22 02/16/24 History melatonin 1 mg tablet 1 mg PO HS PRN sleep 05/15/22 02/16/24 History sertraline 50 mg tablet 50 mg PO DAILY 05/15/22 02/16/24 History carvedilol 12.5 mg tablet 12.5 mg PO DAILY #120 tabs 02/16/24 02/16/24 Rx lisinopril 10 mg tablet 10 mg PO QHS #90 tabs 02/16/24 02/16/24 Rx Have you fallen in the past year?: No [facility] Medical History Moderate to severe aortic stenosis Depression Diabetes Osteoporosis Non-smoker Coronary artery disease Hypertension TIA (transient ischemic attack) Nonrheumatic aortic (valve) stenosis Essential hypertension Presence of stent in coronary artery ( 04/04/22) Carotid stenosis, left Occlusion and stenosis of left carotid artery Nonrheumatic mitral (valve) insufficiency Aortic valve disorders Atherosclerotic heart disease of [place] dehe coronary artery without angina pectoris HLD (hyperlipidemia) Occlusion and stenosis of right carotid artery PAD (peripheral artery disease) Surgical History History of transcatheter aortic valve replacement (TAVR) ( 04/25/22) History of right and left heart catheterization (LHC) ( 03/21/22) Presence of coronary angioplasty implant and graft ( 07/10/16) History of left-sided carotid endarterectomy (05/05/17) History of hy (more content not included)... Normal [facility] B-TYPE NATRIURETIC PEPTIDE ( BRAIN)on 05-29-2022 Natriuretic peptide B (Bld) [Mass/Vol] 347 pg/mL High 0-[address] [facility] Comment on above: Performed By: #### C HM6 #### [facility] (DEFAULT) [address] [address] CBC,PLATELETSon 05-29-2022 Hematocrit (Bld) [Volume fraction] 37.7 % Normal 34.9-44.[address] [facility] Comment on above: Performed By: #### Y METN #### [facility] (DEFAULT) [address] [address] Hemoglobin (Bld) [Mass/Vol] 12.2 g/dL Normal 11.4-15.[address] [facility] Comment on above: Performed By: #### Y METN #### [facility] (DEFAULT) [address] [place] [address] MCV (RBC) [Entitic vol] 85.9 fL Normal 79.6-97.[address] [facility] Comment on above: Performed By: #### Y METN #### [facility] (DEFAULT) [address] [address] Mean Cell Hgb 27.8 pg Normal 25.9-33.[address] [facility] Comment on above: Performed By: #### Y METN #### [facility] (DEFAULT) [address] [address] Mean Cell Hgb Conc 32.4 g/dL Normal 31.4-35.9 [facility] Comment on above: Performed By: #### Y METN #### [facility] (DEFAULT) [address] [address] Platelet mean volume (Bld) [Entitic vol] 10.4 fL Normal 8.5-12.[address] [facility] Comment on above: Performed By: #### Y METN #### [facility] (DEFAULT) [address] [address] Platelets (Bld) [#/Vol] 198 10*3/uL Normal 150-[address] [facility] Comment on above: Performed By: #### Y METN #### [facility] (DEFAULT) [address] [address] RBC (Bld) [#/Vol] 4.39 10*6/uL Normal 3.91-5.[address] [facility] Comment on above: Performed By: #### Y METN #### [facility] (DEFAULT) [address] [address] RBC Distribution 13.0 % Normal 10.8-14.9 [facility] Comment on above: Performed By: #### Y METN #### [facility] (DEFAULT) [address] [address] [address] WBC (Bld) [#/Vol] 7.18 10*3/uL Normal 3.99-11.[address] [facility] Comment on above: Performed By: #### Y METN #### [facility] (DEFAULT) [address] [place] [id number] CHEM 6 (LYTES, BUN CREA)on 0 05-29-2022 Anion gap [Moles/Vol] 14 mmol/L Normal 7-17 [facility] Comment on above: Performed By: #### C HM6 #### [facility] (DEFAULT) [address] [place] [address] Chloride [Moles/Vol] 101 mmol/L Normal 98-[address] [facility] Comment on above: Performed By: #### C HM6 #### [facility] (DEFAULT) [address] [place] [id number] CO2 [Moles/Vol] 29 mmol/L Normal 21-31 [facility] Comment on above: Performed By: #### C HM6 #### [facility] (DEFAULT) [address] [place] [address] 12592 Creatinine [Mass/Vol] 0.62 mg/dL Normal 0.50-1.20 [facility] Comment on above: Performed By: #### C HM6 #### [facility] (DEFAULT) [address] [place] [address]244 GFR/1.73 sq M.predicted among non-blacks MDRD (S/P/Bld) [Vol rate/Area] 86 mL/min/{1.73_m2} Normal >=[address] [facility] Comment on above: Result Comment: Repo rted eGFR is based on the CKD-EPI 2020 equation using creatinine, age, and sex. Performed By: #### C HM6 #### [facility] (DEFAULT) [address] [place] [address] Potassium [Moles/Vol] 3.7 mmol/L Normal 3.5-5.0 [facility] Comment on above: Performed By: #### C HM6 #### [facility] (DEFAULT) [address] [place] [address] Sodium [Moles/Vol] 140 mmol/L Normal 135-145 [facility] Comment on above: Performed By: #### C HM6 #### [facility] (DEFAULT) [address] [place] [address] Urea nitrogen [Mass/Vol] 21 mg/dL Normal 7-[address] [facility] Comment on above: Performed By: #### C HM6 #### [facility] (DEFAULT) [address] [place] [address] Urea nitrogen/Creatinine [Mass ratio] 34 mg/mg Normal [facility] Comment on above: Performed By: #### C HM6 #### [facility] (DEFAULT) [address] [place] [id number] Cardiac echo study Procedure Ordered By: Allen Tay on 05-29-2022 Ao peak jay 2.29 m/s [facility] Work Phone: Ao VTI 59.50 cm [facility] Work Phone: Aortic arch 2.66 cm [facility] Work Phone: Ascending aorta 3.40 cm [facility] Work Phone: AV LVOT peak gradient 4 mmHg [facility] Work Phone: AV mean gradient 12 mmHg [facility] Work Phone: AV peak gradient 21 mmHG [facility] Work Phone: AV valve area 0.88 cm2 [facility] Work Phone: AV Velocity Ratio 0.41 [facility] Work Phone: LIDIA (continuity Vmax) 0.93 cm2 [facility] Work Phone: LIDIA (continuity VTI) 0.88 cm2 [facility] Work Phone: LIDIA index (continuity Vmax) 0.59 m/s [facility] Work Phone: LIDIA index (continuity VTI) 0.56 [facility] Work Phone: Avg e' pk jay 0.06 m/s [facility] Work Phone: Avg E/e' ratio 27.22 [facility] Work Phone: Body surface area Derived from formula 1.57 m2 [facility] Work Phone: BP EF 55 % [facility] Work Phone: DI (Vmax) 0.41 [facility] Work Phone: DI (VTI) 0.39 m/2 [facility] Work Phone: E wave decelartion time 339.00 msec [facility] Work Phone: e' lateral pk jay 0.0760 m/s [facility] Work Phone: e' lateral pk jay 0.08 m/s [facility] Work Phone: e' septal pk jay 0.0360 m/s [facility] Work Phone: e' septal pk jay 0.04 m/s [facility] Work Phone: E/A ratio 1.10 [facility] Work Phone: E/e' lateral ratio 17.50 [facility]: E/e' septal ratio 36.94 [facility]: EF SP 2CH 55 [facility] Work Phone: EF SP 4CH 55 [facility] Work Phone: EST RAP 8.00 mmHg [facility] Work Phone: FS 20 % 28 - 44 % [facility] Work Phone: IVC ostium 1.30 cm [facility] Work Phone: IVS 1.20 cm [facility] Work Phone: LA AREA 2CH 24.40 cm2 [facility] Work Phone: LA area 4CH 21.60 cm2 [facility] Work Phone: LA ESV BP (MOD) 76 mL [facility] ESV BP (MOD) index 48 mL/m2 [facility] Work Phone: LA ESV SP 2CH (MOD) 78 mL [facility] Work Phone: LA ESV SP 4CH (MOD) 67 mL [facility] Work Phone: LV EDV BP 71 mL [facility] Work Phone: LV EDV SP 2CH 73 mL [facility] Work Phone: LV EDV SP 4CH 69 mL [facility] Work Phone: LV ESV BP 32 mL [facility] Work Phone: LV ESV SP 2CH 33 mL [facility] Work Phone: LV ESV SP 4CH 31 mL [facility] Work Phone: LV mass 165.46 g [facility] Work Phone: LV Mass Index 105.4 g/m2 [facility] Work Phone: LV RWT 0.60 [facility] Work Phone: LV stroke volume BP (ml) 39 mL [facility] Work Phone: LV stroke volume index BP 24.84 mL/m2 [facility] Work Phone: LVIDD 4.00 cm [facility] Work Phone: LVIDS 3.20 cm [facility] Work Phone: LVOT area 2.27 cm2 [facility] Work Phone: LVOT diameter 1.70 cm [facility] Work Phone: LVOT peak jay 0.94 m/s [facility] Work Phone: LVOT peak VTI 23.00 cm [facility] Work Phone: LVOT stroke volume 52 cm3 [facility] Work Phone: LVOT stroke volume index 33.24 ml/m2 [facility] Work Phone: MV mean gradient 4 mmHg [facility] Work Phone: MV peak gradient 9 mmHg [facility] Work Phone: MV pk A jay 1.21 m/s [facility] Work Phone: MV pk E jay 1.33 m/s [facility] Work Phone: MV stenosis pressure 1/2 time 104.00 ms [facility] Work Phone: MV valve area by continuity eq 1.23 cm2 [facility] Work Phone: MV valve area p 1/2 method 2.12 cm2 [facility] Work Phone: MV VTI 42.30 cm [facility] Work Phone: MVA (continuity VTI) 1.23 cm [facility] Work Phone: [facility] AV VTI RATIO PRE STRESS 0.39 [facility] Work Phone: [facility] ECHO LV BIPLANE SYSTOLIC VOLUME INDEX 20.38 mL/m2 [facility] Work Phone: [facility] ECHO LV BP DIASTOLIC VOLUME INDEX 45.22 mL/m2 [facility] Work Phone: [facility] RVOT VTI RATIO 0.48 [facility] Work [facility]: PV mean gradient 3 mmHg [facility] Work Phone: PV peak gradient 6 mmHg [facility] Work Phone: PV PK JAY 1.22 m/s [facility] Work Phone: PV VTI 26.10 cm [facility] Work Phone: PW 1.20 cm [facility] Work Phone: RA vol index 4CH (MOD) 29.94 mL/m2 [facility] Work Phone: Right atrium volume 4 chamber method of disks 47 mL [facility] Work Phone: RV Area diastolic 15.50 cm2 [facility] Work Phone: RV Area systolic 8.36 cm2 [facility] Work Phone: RV basal diam 4.00 cm [facility] Work Phone: RV Fractional area change 46.1 % [facility] Work Phone: RV long diam 7.10 cm [facility] Work Phone: RV mid diam 2.90 cm [facility] Work Phone: RV S' 10.70 cm/s [facility] Work Phone: RVOT peak gradient 2 mmHg [facility]: RVOT peak jay 0.67 m/s [facility] Work Phone: RVOT peak VTI 12.40 cm [facility] Work Phone: Sinus 3.10 cm [facility] Work Phone: STJ 2.50 cm [facility] Work Phone: Stroke Volume 52 cm/mL [facility] Work Phone: Stroke volume index 33 [facility] Work Phone: TAPSE 2.24 cm [facility] Work Phone: [facility] Work Phone: Cardiac echo study Procedure on 03-02-2023 S/p 23 mm Lorelei transcutaneously placed (TAVR) bioprosthetic valve. The date of implant is 04/25/2022 Left Ventricle: Chamber size is normal. Increased wall thickness. Concentric hypertrophy. Normal global systolic function. Regional wall motion is normal. Ejection fraction is low normal (50-55%). Diastolic function is consistent with pseudonormalization (grade II). Right Ventricle: Chamber size is normal. Systolic function is normal. Left Atrium: Chamber size is severely enlarged. Aortic Valve: (TAVR) bioprosthetic valve is well seated. NO regurgitation. LVOT diameter: 1.70 cm. Mean gradient: 12 mmHg. Dimensionless Index by VTI: 0.39. Valve area continuity VTI: 0.88 cm2. Stroke volume index: 33.24 ml/m2. The valve Vmax is 2.29 m/s. Pericardium: No pericardial effusion. No significant change compared to echo from 04/25/2022 Left Ventricle Chamber size is normal. Increased wall thickness. Concentric hypertrophy. Normal global systolic function. Regional wall motion is normal. Ejection fraction is low normal (50-55%). Diastolic function is consistent with pseudonormalization (grade II). Right Ventricle Chamber size is normal. Systolic function is normal. Left Atrium Chamber size is severely enlarged. Right Atrium Chamber size is normal. IVC/SVC The inferior vena cava structure is abnormal. The diameter is <21 mm and decreases <50% during inspiration. Mitral Valve Severe anterior and posterior annular calcification. Trace regurgitation. No valve stenosis. Tricuspid Valve Normal leaflets. Trace regurgitation. No stenosis. Estimated right atrial pressure is 8.00 mmHg. Aortic Valve 23 mm Lorelei transcutaneously placed (TAVR) bioprosthetic valve. The date of implant was 04/25/2022. No regurgitation. LVOT diameter: 1.70 cm. Mean gradient: 12 mmHg. Dimensionless Index by VTI: 0.39. Valve area continuity VTI: 0.88 cm2. Stroke volume index: 33.24 ml/m2. The valve Vmax is 2.29 m/s. Pulmonic Valve Normal structure. Trace regurgitation. No stenosis. Pericardium No pericardial effusion. Aorta No dilation to extent seen. Study Details A complete echocardiography study was performed. Study limitations include technically difficult study. Imaging system used: [employer]. 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 [facility] Radiology Study observation (narrative) [facility] ECHOCARDIOGRAMon 05-29-2022 Echocardiography ? S/p 23 mm Lorelei transcutaneously placed (TAVR) bioprosthetic valve. The date of implant is 04/25/2022 ? Left Ventricle: Chamber size is normal. Increased wall thickness. Concentric hypertrophy. Normal global systolic function. Regional wall motion is normal. Ejection fraction is low normal (50-55%). Diastolic function is consistent with pseudonormalization (grade II). ? Right Ventricle: Chamber size is normal. Systolic function is normal. ? Left Atrium: Chamber size is severely enlarged. ? Aortic Valve: (TAVR) bioprosthetic valve is well seated. NO regurgitation. LVOT diameter: 1.70 cm. Mean gradient: 12 mmHg. Dimensionless Index by VTI: 0.39. Valve area continuity VTI: 0.88 cm2. Stroke volume index: 33.24 ml/m2. The valve Vmax is 2.29 m/s. ? Pericardium: No pericardial effusion. ? No significant change compared to echo from 04/25/2022 Table formatting from the original result was not included. Images from the original result were not included. Facility [facility] Patient Information Patient Name Finesse Prather Legal Sex Female Indication for Exam Priority: Routine Dx: S/p TAVR (transcatheter aortic valve replacement), bioprosthetic [Z95.3 (ICD-10-CM)] Comments: 30 DAY POST TAVR Interpretation Summary ? S/p 23 mm Lorelei transcutaneously placed (TAVR) bioprosthetic valve. The date of implant is 04/25/2022 ? Left Ventricle: Chamber size is normal. Increased wall thickness. Concentric hypertrophy. Normal global systolic function. Regional wall motion is normal. Ejection fraction is low normal (50-55%). Diastolic function is consistent with pseudonormalization (grade II). ? Right Ventricle: Chamber size is normal. Systolic function is normal. ? Left Atrium: Chamber size is severely enlarged. ? Aortic Valve: (TAVR) bioprosthetic valve is well seated. NO regurgitation. LVOT diameter: 1.70 cm. Mean gradient: 12 mmHg. Dimensionless Index by VTI: 0.39. Valve area continuity VTI: 0.88 cm2. Stroke volume index: 33.24 ml/m2. The valve Vmax is 2.29 m/s. ? Pericardium: No pericardial effusion. ? No significant change compared to echo from 04/25/2022 Findings Left Ventricle Chamber size is normal. Increased wall thickness. Concentric hypertrophy. Normal global systolic function. Regional wall motion is normal. Ejection fraction is low normal (50-55%). Diastolic function is consistent with pseudonormalization (grade II). Right Ventricle Chamber size is normal. Systolic function is normal. Left Atrium Chamber size is severely enlarged. Right Atrium Chamber size is normal. Mitral Valve Severe anterior and posterior annular calcification. Trace regurgitation. No valve stenosis. Aortic Valve 23 mm Lorelei transcutaneously placed (TAVR) bioprosthetic valve. The date of implant was 04/25/2022. No regurgitation. LVOT diameter: 1.70 cm. Mean gradient: 12 mmHg. Dimensionless Index by VTI: 0.39. Valve area continuity VTI: 0.88 cm2. Stroke volume index: 33.24 ml/m2. The valve Vmax is 2.29 m/s. Tricuspid Valve Normal leaflets. Trace regurgitation. No stenosis. Estimated right atrial pressure is 8.00 mmHg. Pulmonic Valve Normal structure. Trace regurgitation. No stenosis. Aorta No dilation to extent seen. Pericardium No pericardial effusion. IVC/SVC The inferior vena cava structure is abnormal. The diameter is <21 mm and decreases <50% during inspiration. Reading Providers Reading Role Read Date Allen Tay MD Echo [place] 05/29/2022 Left Heart Measurements LV - Systole LVIDD 4 cm IVS 1.2 cm LVIDS 3.2 cm PW 1.2 cm LV RWT 0.6 LV Mass Index 105.4 g/m2 LV EDV BP 71 mL LV ESV BP 32 mL BP EF 55 % LV stroke volume BP (ml) 39 mL LV stroke volume index BP 24.84 mL/m2 LV - Diastole MV pk E jay 1.33 m/s MV pk A jay 1.21 m/s E/A ratio 1.1 e' septal pk jay 0.04 m/s e' lateral pk jay 0.08 m/s Avg e' pk jay 0.06 m/s E/e' septal ratio 36.94 E/e' lateral ratio 17.5 Avg E/e' ratio 27.22 LV - HCM AV LVOT peak gradient 4 mmHg Left Atrium LA ESV SP 4CH (MOD) 67 mL LA ESV SP 2CH (MOD) 78 mL LA ESV BP (MOD) index 48 mL/m2 Right Heart Measurements RV - 2D RV basal diam 4 cm RV mid diam 2.9 cm RV long diam 7.1 cm RV Area diastolic 15.5 cm2 RV Area systolic 8.36 cm2 RV Fractional area change 46.1 % RV - Doppler TAPSE 2.24 cm RV S' 10.7 cm/s Right Atrium RA vol index 4CH (MOD) 29.94 mL/m2 EST RAP 8 mmHg [employer] [facility]essels Aortic Root - End Diastolic Sinus 3.1 cm STJ 2.5 cm Ascending aorta 3.4 cm Aortic arch 2.66 cm Inferior Vena Cava IVC ostium 1.3 cm Doppler Measurements - Aortic Valve Stenosis LVOT diameter 1.7 cm LVOT area 2.27 cm2 LVOT peak jay 0.94 m/s LVOT peak VTI 23 cm Stroke Volume 52 cm/mL Stroke vol (more content not included)... Normal [facility] CBC,PLATELETSon 04-27-2022 Hematocrit (Bld) [Volume fraction] 29.1 % Low 34.9-44.[address] [facility] Comment on above: Performed By: #### X M #### [facility] (DEFAULT) [address] [address] Hemoglobin (Bld) [Mass/Vol] 9.8 g/dL Low 11.4-15.[address] [facility] Comment on above: Performed By: #### X M #### [facility] (DEFAULT) [address] [address] MCV (RBC) [Entitic vol] 86.1 fL Normal 79.6-97.[address] [facility] Comment on above: Performed By: #### X M #### [facility] (DEFAULT) [address] [address] Mean Cell Hgb 29.0 pg Normal 25.9-33.[address] [facility] Comment on above: Performed By: #### X M #### [facility] [address] [place] [address]23 Mean Cell Hgb Conc 33.7 g/dL Normal 31.4-35.9 [facility] Comment on above: Performed By: #### X M #### [facility] (DEFAULT) [address] [place] [address] 20128 Platelet mean volume (Bld) [Entitic vol] 10.0 fL Normal 8.5-12.[address] [facility] Comment on above: Performed By: #### X M #### [facility] (DEFAULT) [address] [place] [address]45 Platelets (Bld) [#/Vol] 183 10*3/uL Normal 150-[address] [facility] Comment on above: Performed By: #### X M #### [facility] (DEFAULT) [address] [place] [address] 10310 RBC (Bld) [#/Vol] 3.38 10*6/uL Low 3.91-5.[address] [facility] Comment on above: Performed By: #### X M #### [facility] (DEFAULT) [address] [place] [address] 91735 RBC Distribution 13.1 % Normal 10.8-14.9 [facility] Comment on above: Performed By: #### X M #### [facility] (DEFAULT) [address] [place] [address]195 WBC (Bld) [#/Vol] 6.80 10*3/uL Normal 3.99-11.[address] [facility] Comment on above: Performed By: #### X M #### [facility] (DEFAULT) [address] [address] Erythrocyte distribution width (RBC) [Ratio] 13.1 % 10.8 - 14.9 % [facility] Hematocrit (Bld) [Volume fraction] 29.1 % Low 34.9 - 44.3 % [facility] Hemoglobin (Bld) [Mass/Vol] 9.8 g/dL Low 11.4 - 15.2 g/dL [facility] Interpretation and review of laboratory results Abnormal [facility] MCH (RBC) [Entitic mass] 29.0 pg 25.9 - 33.9 pg [facility] MCHC (RBC) [Mass/Vol] 33.7 g/dL 31.4 - 35.9 g/dL [facility] MCV (RBC) [Entitic vol] 86.1 fL 79.6 - 97.7 fL [facility] Platelet mean volume (Bld) [Entitic vol] 10.0 fL 8.5 - 12.2 fL [facility] Platelets (Bld) [#/Vol] 183 10*3/uL 150 - 393 K/uL [facility] RBC (Bld) [#/Vol] 3.38 10*6/uL Low [facility] WBC (Bld) [#/Vol] 6.80 10*3/uL 3.99 - 11. 19 K/uL [facility] CHEM 7 (LYTES,BUN,CREA,GLUC) on 04-27-2022 Anion gap [Moles/Vol] 11 mmol/L Normal 7-17 [facility] Comment on above: Performed By: #### C HM6 #### [facility] (DEFAULT) [address] [place] [address]69 Chloride [Moles/Vol] 104 mmol/L Normal 98-[address] [facility] Comment on above: Performed By: #### C HM6 #### [facility] (DEFAULT) [address] [place] [address] 05918 CO2 [Moles/Vol] 26 mmol/L Normal 21-31 [facility] Comment on above: Performed By: #### C HM6 #### [facility] (DEFAULT) [address] [place] [address]36 Creatinine [Mass/Vol] 0.49 mg/dL Low 0.50-1.20 [facility] Comment on above: Performed By: #### C HM6 #### [facility] (DEFAULT) [address] [place] [address] 85451 eGFR, CKD-EPI, Female > Normal >=60 [facility] Comment on above: Result Comment: Repo rted eGFR is based on the CKD-EPI 2020 equation using creatinine, age, and sex. Performed By: #### C HM6 #### [facility] (DEFAULT) [address] [place] [address]1080 Glucose [Mass/Vol] 139 mg/dL High 70-99 [facility] Comment on above: Performed By: #### C HM6 #### [facility] (DEFAULT) [address] [place] [address]57 Osmolality [Osmolality] 290 mosm/kg Normal 278-[address] [facility] Comment on above: Performed By: #### C HM6 #### [facility] (DEFAULT) [address] [place] [address]01 Potassium [Moles/Vol] 3.7 mmol/L Normal 3.5-5.0 [facility] Comment on above: Performed By: #### C HM6 #### [facility] (DEFAULT) [address] [place] [address] 60811 Sodium [Moles/Vol] 137 mmol/L Normal 135-145 [facility] Comment on above: Performed By: #### C HM6 #### [facility] (DEFAULT) [address] [place] [address] 17033 Urea nitrogen [Mass/Vol] 15 mg/dL Normal 7-[address] [facility] Comment on above: Performed By: #### C HM6 #### [facility] (DEFAULT) [address] [place] [address] 98623 Urea nitrogen/Creatinine [Mass ratio] 31 mg/mg Normal [facility] Comment on above: Performed By: #### C HM6 #### [facility] (DEFAULT) [address] [place] [address]754 Anion gap [Moles/Vol] 11 mmol/L 7 - 17 mmol/L [facility] Chloride [Moles/Vol] 104 mmol/L 98 - 10 8 mmol/L [facility] CO2 [Moles/Vol] 26 mmol/L 21 - 31 mmol/L [facility] Creatinine [Mass/Vol] 0.49 mg/dL Low 0.50 - 1.20 mg/dL [facility] GFR/1.73 sq M.predicted CKD-EPI (S/P/Bld) [Vol rate/Area] - PINF [facility] Comment on above: Reported eGFR is bas ed on the CKD-EPI 2020 equation using creatinine, age, and sex. Glucose [Mass/Vol] 139 mg/dL High 70 - 99 mg/dL [facility] Interpretation and review of laboratory results Abnormal [facility] Osmolality Calc [Osmolality] 290 [facility] Potassium [Moles/Vol] 3.7 mmol/L 3.5 - 5.0 mmol/L [facility] Sodium [Moles/Vol] 137 mmol/L 135 - 145 mmol/L [facility] Urea nitrogen [Mass/Vol] 15 mg/dL 7 - 25 mg/dL [facility] Urea nitrogen/Creatinine [Mass ratio] 31 mg/mg [facility] CONTINUOUS CARDIAC MONITORIN G STRIPon 04-27-2022 [facility] GLUCOSE POCon 04-27-2022 Glucose [Mass/Vol] 169 mg/dL High 70 - 99 mg/dL [facility] Interpretation and review of laboratory results Abnormal [facility] POC Sample Type CAPBL [facility] Test performed at address of the patient encounter. [facility] Glucose [Mass/Vol] 140 mg/dL High 70 - 99 mg/dL [facility] Interpretation and review of laboratory results Abnormal [facility] POC Sample Type CAPBL [facility] Test performed at address of the patient encounter. [facility] Glucose [Mass/Vol] 173 mg/dL High 70 - 99 mg/dL [facility] Interpretation and review of laboratory results Abnormal [facility] POC Sample Type CAPBL [facility] Test performed at address of the patient encounter. [facility] CBC,PLATELETSon 04-26-2022 Hematocrit (Bld) [Volume fraction] 32.3 % Low 34.9-44.[address] [facility] Comment on above: Performed By: #### L [id number] #### [facility] (DEFAULT) [address] [address] Hemoglobin (Bld) [Mass/Vol] 11.0 g/dL Low 11.4-15.2 [facility] Comment on above: Performed By: #### L [id number] #### [facility] (DEFAULT) [address] [address] MCV (RBC) [Entitic vol] 85.0 fL Normal 79.6-97.[address] [facility] Comment on above: Performed By: #### L ABHSTI1 #### [facility] (DEFAULT) [address] [address] Mean Cell Hgb 28.9 pg Normal 25.9-33.[address] [facility] Comment on above: Performed By: #### L ABHSTI1 #### [facility] (DEFAULT) [address] [place] [address] Mean Cell Hgb Conc 34.1 g/dL Normal 31.4-35.9 [facility] Comment on above: Performed By: #### L ABHSTI1 #### [facility] (DEFAULT) [address] [address] Platelet mean volume (Bld) [Entitic vol] 10.0 fL Normal 8.5-12.[address] [facility] Comment on above: Performed By: #### L ABHSTI1 #### [facility] (DEFAULT) [address] [address] Platelets (Bld) [#/Vol] 235 10*3/uL Normal 150-[address] [facility] Comment on above: Performed By: #### L ABHSTI1 #### [facility] (DEFAULT) [address] [place] [address] RBC (Bld) [#/Vol] 3.80 10*6/uL Low 3.91-5.[address] [facility] Comment on above: Performed By: #### L [id number] #### [facility] (DEFAULT) [address] [place] [address] RBC Distribution 13.1 % Normal 10.8-14.9 [facility] Comment on above: Performed By: #### L ABHSTI1 #### [facility] (DEFAULT) [address] [place] [address] WBC (Bld) [#/Vol] 9.81 10*3/uL Normal 3.99-11.[address] [facility] Comment on above: Performed By: #### L ABHSTI1 #### [facility] (DEFAULT) [address] [place] [address] Erythrocyte distribution width (RBC) [Ratio] 13.1 % 10.8 - 14.9 % [facility] Hematocrit (Bld) [Volume fraction] 32.3 % Low 34.9 - 44.3 % [facility] Hemoglobin (Bld) [Mass/Vol] 11.0 g/dL Low 11.4 - 15.2 g/dL [facility] Interpretation and review of laboratory results Abnormal [facility] MCH (RBC) [Entitic mass] 28.9 pg 25.9 - 33.9 pg [facility] MCHC (RBC) [Mass/Vol] 34.1 g/dL 31.4 - 35.9 g/dL [facility] MCV (RBC) [Entitic vol] 85.0 fL 79.6 - 97.7 fL [facility] Platelet mean volume (Bld) [Entitic vol] 10.0 fL 8.5 - 12.2 fL [facility] Platelets (Bld) [#/Vol] 235 10*3/uL 150 - 393 K/uL [facility] RBC (Bld) [#/Vol] 3.80 10*6/uL Low [facility] WBC (Bld) [#/Vol] 9.81 10*3/uL 3.99 - 11. 19 K/uL [facility] CHEM 7 (LYTES,BUN,CREA,GLUC) on 04-26-2022 Anion gap [Moles/Vol] 14 mmol/L Normal 7-17 [facility] Comment on above: Performed By: #### C HM6 #### [facility] (DEFAULT) [address] [address] Chloride [Moles/Vol] 105 mmol/L Normal 98-[address] [facility] Comment on above: Performed By: #### C HM6 #### [facility] (DEFAULT) [address] [address] CO2 [Moles/Vol] 22 mmol/L Normal 21-31 [facility] Comment on above: Performed By: #### C HM6 #### [facility] (DEFAULT) [address] [address] Creatinine [Mass/Vol] 0.63 mg/dL Normal 0.50-1.20 [facility] Comment on above: Performed By: #### C HM6 #### [facility] (DEFAULT) [address] [address] GFR/1.73 sq M.predicted among non-blacks MDRD (S/P/Bld) [Vol rate/Area] 86 mL/min/{1.73_m2} Normal >=[address] [facility] Comment on above: Result Comment: Repo rted eGFR is based on the CKD-EPI 2020 equation using creatinine, age, and sex. Performed By: #### C HM6 #### [facility] (DEFAULT) [address] [address] Glucose [Mass/Vol] 126 mg/dL High 70-99 [facility] Comment on above: Performed By: #### C HM6 #### [facility] (DEFAULT) [address] [place] [address] Osmolality [Osmolality] 290 mosm/kg Normal 278-[address] [facility] Comment on above: Performed By: #### C HM6 #### [facility] (DEFAULT) [address] [place] [address] Potassium [Moles/Vol] 4.2 mmol/L Normal 3.5-5.0 [facility] Comment on above: Performed By: #### C HM6 #### [facility] (DEFAULT) [address] [place] [address] Sodium [Moles/Vol] 137 mmol/L Normal 135-145 [facility] Comment on above: Performed By: #### C HM6 #### [facility] (DEFAULT) [address] [place] [address] Urea nitrogen [Mass/Vol] 15 mg/dL Normal 7-[address] [facility] Comment on above: Performed By: #### C HM6 #### [facility] (DEFAULT) [address] [place] [address] Urea nitrogen/Creatinine [Mass ratio] 24 mg/mg Normal [facility] Comment on above: Performed By: #### C HM6 #### [facility] (DEFAULT) [address] [place] [address] Anion gap [Moles/Vol] 14 mmol/L 7 - 17 mmol/L [facility] Chloride [Moles/Vol] 105 mmol/L 98 - 10 8 mmol/L [facility] CO2 [Moles/Vol] 22 mmol/L 21 - 31 mmol/L [facility] Creatinine [Mass/Vol] 0.63 mg/dL 0.50 - 1.20 mg/dL [facility] GFR/1.73 sq M.predicted CKD-EPI (S/P/Bld) [Vol rate/Area] 86 - PINF [facility] Comment on above: Reported eGFR is bas ed on the CKD-EPI 2020 equation using creatinine, age, and sex. Glucose [Mass/Vol] 126 mg/dL High 70 - 99 mg/dL [facility] Interpretation and review of laboratory results Abnormal [facility] Osmolality Calc [Osmolality] 290 [facility] Potassium [Moles/Vol] 4.2 mmol/L 3.5 - 5.0 mmol/L [facility] Sodium [Moles/Vol] 137 mmol/L 135 - 145 mmol/L [facility] Urea nitrogen [Mass/Vol] 15 mg/dL 7 - 25 mg/dL [facility] Urea nitrogen/Creatinine [Mass ratio] 24 mg/mg [facility] GLUCOSE POCon 04-26-2022 Glucose [Mass/Vol] 169 mg/dL High 70 - 99 mg/dL [facility] Interpretation and review of laboratory results Abnormal [facility] POC Sample Type CAPBL [facility] Test performed at address of the patient encounter. [facility] Glucose [Mass/Vol] 161 mg/dL High 70 - 99 mg/dL [facility] Interpretation and review of laboratory results Abnormal [facility] POC Sample Type CAPBL [facility] Test performed at address of the patient encounter. [facility] Glucose [Mass/Vol] 248 mg/dL High 70 - 99 mg/dL [facility] Interpretation and review of laboratory results Abnormal [facility] POC Sample Type CAPBL [facility] Test performed at address of the patient encounter. [facility] B-TYPE NATRIURETIC PEPTIDE ( BRAIN)on 04-25-2022 Natriuretic peptide B (Bld) [Mass/Vol] 530 pg/mL High 0-[address] [facility] Comment on above: Performed By: #### S CRSB #### [facility] (DEFAULT) [address] [address] Interpretation and review of laboratory results Abnormal [facility] Natriuretic peptide B (Bld) [Mass/Vol] 530 pg/mL High 0 - 100 pg/mL [facility] CBC,PLATELETSon 04-25-2022 Hematocrit (Bld) [Volume fraction] 32.1 % Low 34.9-44.[address] [facility] Comment on above: Order Comment: Colle ct with an ESWAB - Anterior Nares for MRSA + MSSA This test was performed using a real time PCR assay. Results should be interpreted in conjunction with other clinical and laboratory findings. A positive result does not necessarily indicate the presence of viable organism. This test should not be used as a test of cure. For E-swab specimens, this test was developed and its performance characteristics determined by the Clinical Microbiology Laboratory at [facility]. It has not been cleared or approved by the FDA.The laboratory is regulated under CLIA as qualified to perform high-complexity testing. This test is used for clinical purposes. It should not be regarded as investigational or for research. Performed By: #### S CRSB #### [facility] (DEFAULT) [address] [address] Hemoglobin (Bld) [Mass/Vol] 10.6 g/dL Low 11.4-15.[address] [facility] Comment on above: Order Comment: Colle ct with an ESWAB - Anterior Nares for MRSA + MSSA This test was performed using a real time PCR assay. Results should be interpreted in conjunction with other clinical and laboratory findings. A positive result does not necessarily indicate the presence of viable organism. This test should not be used as a test of cure. For E-swab specimens, this test was developed and its performance characteristics determined by the Clinical [facility]biology [facility] at [facility]. It has not been cleared or approved by the FDA.The laboratory is regulated under CLIA as qualified to perform high-complexity testing. This test is used for clinical purposes. It should not be regarded as investigational or for research. Performed By: #### S CRSB #### [facility] (DEFAULT) [address] [address] MCV (RBC) [Entitic vol] 88.7 fL Normal 79.6-97.[address] [facility] Comment on above: Order Comment: Colle ct with an ESWAB - Anterior Nares for MRSA + MSSA This test was performed using a real time PCR assay. Results should be interpreted in conjunction with other clinical and laboratory findings. A positive result does not necessarily indicate the presence of viable organism. This test should not be used as a test of cure. For E-swab specimens, this test was developed and its performance characteristics determined by the [facility] at [facility]. It has not been cleared or approved by the FDA.The laboratory is regulated under CLIA as qualified to perform high-complexity testing. This test is used for clinical purposes. It should not be regarded as investigational or for research. Performed By: #### S CRSB #### [facility] [address] [place] [address] Mean Cell Hgb 29.3 pg Normal 25.9-33.[address] [facility] Comment on above: Order Comment: Colle ct with an ESWAB - Anterior Nares for MRSA + MSSA This test was performed using a real time PCR assay. Results should be interpreted in conjunction with other clinical and laboratory findings. A positive result does not necessarily indicate the presence of viable organism. This test should not be used as a test of cure. For E-swab specimens, this test was developed and its performance characteristics determined by the [facility] at [facility]. It has not been cleared or approved by the FDA.The laboratory is regulated under CLIA as qualified to perform high-complexity testing. This test is used for clinical purposes. It should not be regarded as investigational or for research. Performed By: #### S CRSB #### [facility] (DEFAULT) [address] [place] [address] Mean Cell Hgb Conc 33.0 g/dL Normal 31.4-35.9 [facility] Comment on above: Order Comment: Colle ct with an ESWAB - Anterior Nares for MRSA + MSSA This test was performed using a real time PCR assay. Results should be interpreted in conjunction with other clinical and laboratory findings. A positive result does not necessarily indicate the presence of viable organism. This test should not be used as a test of cure. For E-swab specimens, this test was developed and its performance characteristics determined by the [facility] at [facility]. It has not been cleared or approved by the FDA.The laboratory is regulated under CLIA as qualified to perform high-complexity testing. This test is used for clinical purposes. It should not be regarded as investigational or for research. Performed By: #### S CRSB #### [facility] (DEFAULT) [address] [address] Platelet mean volume (Bld) [Entitic vol] 10.2 fL Normal 8.5-12.[address] [facility] Comment on above: Order Comment: Colle ct with an ESWAB - Anterior Nares for MRSA + MSSA This test was performed using a real time PCR assay. Results should be interpreted in conjunction with other clinical and laboratory findings. A positive result does not necessarily indicate the presence of viable organism. This test should not be used as a test of cure. For E-swab specimens, this test was developed and its performance characteristics determined by the [facility] at [facility]. It has not been cleared or approved by the FDA.The laboratory is regulated under CLIA as qualified to perform high-complexity testing. This test is used for clinical purposes. It should not be regarded as investigational or for research. Performed By: #### S CRSB #### [facility] (DEFAULT) [address] [address] Platelets (Bld) [#/Vol] 204 10*3/uL Normal 150-[address] [facility] Comment on above: Order Comment: Colle ct with an ESWAB - Anterior Nares for MRSA + MSSA This test was performed using a real time PCR assay. Results should be interpreted in conjunction with other clinical and laboratory findings. A positive result does not necessarily indicate the presence of viable organism. This test should not be used as a test of cure. For E-swab specimens, this test was developed and its performance characteristics determined by the [facility] at [facility]. It has not been cleared or approved by the FDA.The laboratory is regulated under CLIA as qualified to perform high-complexity testing. This test is used for clinical purposes. It should not be regarded as investigational or for research. Performed By: #### S CRSB #### [facility] (DEFAULT) [address] [address] RBC (Bld) [#/Vol] 3.62 10*6/uL Low 3.91-5.[address] [facility] Comment on above: Order Comment: Colle ct with an ESWAB - Anterior Nares for MRSA + MSSA This test was performed using a real time PCR assay. Results should be interpreted in conjunction with other clinical and laboratory findings. A positive result does not necessarily indicate the presence of viable organism. This test should not be used as a test of cure. For E-swab specimens, this test was developed and its performance characteristics determined by the [facility] at [facility]. It has not been cleared or approved by the FDA.The laboratory is regulated under CLIA as qualified to perform high-complexity testing. This test is used for clinical purposes. It should not be regarded as investigational or for research. Performed By: #### S CRSB #### [facility] (DEFAULT) [address] [address] RBC Distribution 12.9 % Normal 10.8-14.9 [facility] Comment on above: Order Comment: Colle ct with an ESWAB - Anterior Nares for MRSA + MSSA This test was performed using a real time PCR assay. Results should be interpreted in conjunction with other clinical and laboratory findings. A positive result does not necessarily indicate the presence of viable organism. This test should not be used as a test of cure. For E-swab specimens, this test was developed and its performance characteristics determined by the [facility] at [facility]. It has not been cleared or approved by the FDA.The laboratory is regulated under CLIA as qualified to perform high-complexity testing. This test is used for clinical purposes. It should not be regarded as investigational or for research. Performed By: #### S CRSB #### [facility] (DEFAULT) [address] [address] WBC (Bld) [#/Vol] 7.88 10*3/uL Normal 3.99-11.[address] [facility] Comment on above: Order Comment: Colle ct with an ESWAB - Anterior Nares for MRSA + MSSA This test was performed using a real time PCR assay. Results should be interpreted in conjunction with other clinical and laboratory findings. A positive result does not necessarily indicate the presence of viable organism. This test should not be used as a test of cure. For E-swab specimens, this test was developed and its performance characteristics determined by the [facility] at [facility]. It has not been cleared or approved by the FDA.The laboratory is regulated under CLIA as qualified to perform high-complexity testing. This test is used for clinical purposes. It should not be regarded as investigational or for research. Performed By: #### S CRSB #### [facility] (DEFAULT) [address] [place] [address] Erythrocyte distribution width (RBC) [Ratio] 12.9 % 10.8 - 14.9 % [facility] Hematocrit (Bld) [Volume fraction] 32.1 % Low 34.9 - 44.3 % [facility] Hemoglobin (Bld) [Mass/Vol] 10.6 g/dL Low 11.4 - 15.2 g/dL [facility] Interpretation and review of laboratory results Abnormal [facility] MCH (RBC) [Entitic mass] 29.3 pg 25.9 - 33.9 pg [facility] MCHC (RBC) [Mass/Vol] 33.0 g/dL 31.4 - 35.9 g/dL [facility] MCV (RBC) [Entitic vol] 88.7 fL 79.6 - 97.7 fL [facility] Platelet mean volume (Bld) [Entitic vol] 10.2 fL 8.5 - 12.2 fL [facility] Platelets (Bld) [#/Vol] 204 10*3/uL 150 - 393 K/uL [facility] RBC (Bld) [#/Vol] 3.62 10*6/uL [facility] [#/Vol] 7.88 10*3/uL 3.99 - 11. 19 K/uL [facility] Hematocrit (Bld) [Volume fraction] 32.3 % Low 34.9-44.[address] [facility] Comment on above: Performed By: #### C HM6 #### [facility] (DEFAULT) [address] [place] [address] Hemoglobin (Bld) [Mass/Vol] 10.9 g/dL Low 11.4-15.[address] [facility] Comment on above: Performed By: #### C HM6 #### [facility] (DEFAULT) [address] [address] MCV (RBC) [Entitic vol] 85.7 fL Normal 79.6-97.[address] [facility] Comment on above: Performed By: #### C HM6 #### [facility] (DEFAULT) [address] [address] Mean Cell Hgb 28.9 pg Normal 25.9-33.[address] [facility] Comment on above: Performed By: #### C HM6 #### [facility] (DEFAULT) [address] [address] Mean Cell Hgb Conc 33.7 g/dL Normal 31.4-35.9 [facility] Comment on above: Performed By: #### C HM6 #### [facility] (DEFAULT) [address] [place] [address] Platelet mean volume (Bld) [Entitic vol] 9.7 fL Normal 8.5-12.[address] [facility] Comment on above: Performed By: #### C HM6 #### [facility] (DEFAULT) [address] [address] Platelets (Bld) [#/Vol] 236 10*3/uL Normal 150-[address] [facility] Comment on above: Performed By: #### C HM6 #### [facility] (DEFAULT) [address] [place] [address] RBC (Bld) [#/Vol] 3.77 10*6/uL Low 3.91-5.[address] [facility] Comment on above: Performed By: #### C HM6 #### [facility] (DEFAULT) [address] [place] [address] RBC Distribution 13.0 % Normal 10.8-14.9 [facility] Comment on above: Performed By: #### C HM6 #### [facility] (DEFAULT) [address] [place] [address] WBC (Bld) [#/Vol] 6.32 10*3/uL Normal 3.99-11.[address] [facility] Comment on above: Performed By: #### C HM6 #### [facility] (DEFAULT) [address] [place] [address] Erythrocyte distribution width (RBC) [Ratio] 13.0 % 10.8 - 14.9 % [facility] Hematocrit (Bld) [Volume fraction] 32.3 % Low 34.9 - 44.3 % [facility] Hemoglobin (Bld) [Mass/Vol] 10.9 g/dL Low 11.4 - 15.2 g/dL [facility] Interpretation and review of laboratory results Abnormal [facility] MCH (RBC) [Entitic mass] 28.9 pg 25.9 - 33.9 pg [facility] MCHC (RBC) [Mass/Vol] 33.7 g/dL 31.4 - 35.9 g/dL [facility] MCV (RBC) [Entitic vol] 85.7 fL 79.6 - 97.7 fL [facility] Platelet mean volume (Bld) [Entitic vol] 9.7 fL 8.5 - 12.2 fL [facility] Platelets (Bld) [#/Vol] 236 10*3/uL 150 - 393 K/uL [facility] RBC (Bld) [#/Vol] 3.77 10*6/uL Low [facility] WBC (Bld) [#/Vol] 6.32 10*3/uL 3.99 - 11. 19 K/uL [facility] CHEM 7 (LYTES,BUN,CREA,GLUC) on 04-25-2022 Anion gap [Moles/Vol] 13 mmol/L Normal 7-17 [facility] Comment on above: Order Comment: Draw upon arrival to unit. Performed By: #### NATHALIE GONSALVES7 ####[facility] (DEFAULT)[address] [place] [address] Chloride [Moles/Vol] 106 mmol/L Normal 98-[address] [facility] Comment on above: Order Comment: Draw upon arrival to unit. Performed By: #### NATHALIE GONSALVES7 ####[facility] (DEFAULT)[address] [place] [address] CO2 [Moles/Vol] 24 mmol/L Normal 21-31 [facility] Comment on above: Order Comment: Draw upon arrival to unit. Performed By: #### NATHALIE GONSALVES7 ####[facility] (DEFAULT)[address] [place] [address] Creatinine [Mass/Vol] 0.64 mg/dL Normal 0.50-1.20 [facility] Comment on above: Order Comment: Draw upon arrival to unit. Performed By: #### NATHALIE GONSALVES7 ####[facility] (DEFAULT)[address] [place] [address] GFR/1.73 sq M.predicted among non-blacks MDRD (S/P/Bld) [Vol rate/Area] 85 mL/min/{1.73_m2} Normal >=[address] [facility] Comment on above: Order Comment: Draw upon arrival to unit. Result Comment: Repo rted eGFR is based on the CKD-EPI 2020 equation using creatinine, age, and sex. Performed By: #### NATHALIE GONSALVES7 ####[facility] (DEFAULT)[address] [place] [address] Glucose [Mass/Vol] 150 mg/dL High 70-99 [facility] Comment on above: Order Comment: Draw upon arrival to unit. Performed By: #### NATHALIE GONSALVES7 ####[facility] (DEFAULT)[address] [place] [address] Osmolality [Osmolality] 296 mosm/kg Normal 278-[address] [facility] Comment on above: Order Comment: Draw upon arrival to unit. Performed By: #### NATHALIE GONSALVES7 ####[facility] (DEFAULT)[address] [place] [address] Potassium [Moles/Vol] 4.5 mmol/L Normal 3.5-5.0 [facility] Comment on above: Order Comment: Draw upon arrival to unit. Performed By: #### NATHALIE GONSALVES7 ####[facility] (DEFAULT)[address] [place] [address] Sodium [Moles/Vol] 138 mmol/L Normal 135-145 [facility] Comment on above: Order Comment: Draw upon arrival to unit. Performed By: #### NATHALIE GONSALVES7 ####[facility] (DEFAULT)[address] [place] [address] Urea nitrogen [Mass/Vol] 21 mg/dL Normal 7-[address] [facility] Comment on above: Order Comment: Draw upon arrival to unit. Performed By: #### NATHALIE GONSALVES7 ####[facility] (DEFAULT)[address] [place] [place] [address] Urea nitrogen/Creatinine [Mass ratio] 33 mg/mg Normal [facility] Comment on above: Order Comment: Draw upon arrival to unit. Performed By: #### NATHALIE GONSALVES7 ####[facility] (DEFAULT)[address] [facility] [place] [address] Anion gap [Moles/Vol] 13 mmol/L 7 - 17 mmol/L [facility] Chloride [Moles/Vol] 106 mmol/L 98 - 10 8 mmol/L [facility] CO2 [Moles/Vol] 24 mmol/L 21 - 31 mmol/L [facility] Creatinine [Mass/Vol] 0.64 mg/dL 0.50 - 1.20 mg/dL [facility] GFR/1.73 sq M.predicted CKD-EPI (S/P/Bld) [Vol rate/Area] 85 - PINF [facility] Comment on above: Reported eGFR is bas ed on the CKD-EPI 2020 equation using creatinine, age, and sex. Glucose [Mass/Vol] 150 mg/dL High 70 - 99 mg/dL [facility] Interpretation and review of laboratory results Abnormal [facility] Osmolality Calc [Osmolality] 296 [facility] Potassium [Moles/Vol] 4.5 mmol/L 3.5 - 5.0 mmol/L [facility] Sodium [Moles/Vol] 138 mmol/L 135 - 145 mmol/L [facility] Urea nitrogen [Mass/Vol] 21 mg/dL 7 - 25 mg/dL [facility] Urea nitrogen/Creatinine [Mass ratio] 33 mg/mg [facility] Anion gap [Moles/Vol] 14 mmol/L Normal 7-17 [facility] Comment on above: Performed By: #### L ABHSTI1 #### [facility] (DEFAULT) [address] [place] [phone] Chloride [Moles/Vol] 105 mmol/L Normal 98-[address] [facility] Comment on above: Performed By: #### L ABHSTI1 #### [facility] (DEFAULT) [address] [place] [address] CO2 [Moles/Vol] 23 mmol/L Normal 21-31 [facility] Comment on above: Performed By: #### L ABHSTI1 #### [facility] (DEFAULT) [address] [place] [address] Creatinine [Mass/Vol] 0.66 mg/dL Normal 0.50-1.20 [facility] Comment on above: Performed By: #### L ABHSTI1 #### [facility] (DEFAULT) [address] [place] [address] GFR/1.73 sq M.predicted among non-blacks MDRD (S/P/Bld) [Vol rate/Area] 85 mL/min/{1.73_m2} Normal >=[address] [facility] Comment on above: Result Comment: Repo rted eGFR is based on the CKD-EPI 2020 equation using creatinine, age, and sex. Performed By: #### L ABHSTI1 #### [facility] (DEFAULT) [address] [address] Glucose [Mass/Vol] 106 mg/dL High 70-99 [facility] Comment on above: Performed By: #### L ABHSTI1 #### [facility] (DEFAULT) [address] [place] [address] Osmolality [Osmolality] 295 mosm/kg Normal 278-[address] [facility] Comment on above: Performed By: #### L ABHSTI1 #### [facility] (DEFAULT) [address] [place] [address] Potassium [Moles/Vol] 4.3 mmol/L Normal 3.5-5.0 [facility] Comment on above: Performed By: #### L ABHSTI1 #### [facility] (DEFAULT) [address] [address] Sodium [Moles/Vol] 138 mmol/L Normal 135-145 [facility] Comment on above: Performed By: #### L ABHSTI1 #### [facility] (DEFAULT) [address] [address] Urea nitrogen [Mass/Vol] 27 mg/dL High 7-[address] [facility] Comment on above: Performed By: #### L ABHSTI1 #### [facility] (DEFAULT) [address] [place] [address] Urea nitrogen/Creatinine [Mass ratio] 41 mg/mg Normal [facility] Comment on above: Performed By: #### [facility] #### [facility] (DEFAULT) [address] [place] [address] Anion gap [Moles/Vol] 14 mmol/L 7 - 17 mmol/L [facility] Chloride [Moles/Vol] 105 mmol/L 98 - 10 8 mmol/L [facility] CO2 [Moles/Vol] 23 mmol/L 21 - 31 mmol/L [facility] Creatinine [Mass/Vol] 0.66 mg/dL 0.50 - 1.20 mg/dL [facility] GFR/1.73 sq M.predicted CKD-EPI (S/P/Bld) [Vol rate/Area] 85 - PINF [facility] Comment on above: Reported eGFR is bas ed on the CKD-EPI 2020 equation using creatinine, age, and sex. Glucose [Mass/Vol] 106 mg/dL High 70 - 99 mg/dL [facility] Interpretation and review of laboratory results Abnormal [facility] Osmolality Calc [Osmolality] 295 [facility] Potassium [Moles/Vol] 4.3 mmol/L 3.5 - 5.0 mmol/L [facility] Sodium [Moles/Vol] 138 mmol/L 135 - 145 mmol/L [facility] Urea nitrogen [Mass/Vol] 27 mg/dL High 7 - 25 mg/dL [facility] Urea nitrogen/Creatinine [Mass ratio] 41 mg/mg [facility] Cardiac catheterization stud yon 04-25-2022 [facility] Radiology Study observation (narrative) [facility] Cardiac echo study Procedure Ordered By: Allen Tay on 04-25-2022 Ao peak jay 1.90 m/s [facility] Work Phone: Ao VTI 45.52 cm [facility] Work Phone: Ascending aorta 3.01 cm [facility] Work Phone: AV LVOT peak gradient 4 [facility] Work [facility]: AV mean gradient 8 [facility]: AV peak gradient 14 mmHG [facility] Work Phone: AV valve area 1.03 cm2 [facility] Work Phone: AV Velocity Ratio 0.50 [facility] Work Phone: LIDIA (continuity Vmax) 0.97 cm2 [facility] Work Phone: LIDIA (continuity VTI) 1.03 cm2 [facility] Work Phone: LIDIA index (continuity Vmax) 0.62 m/s [facility] Work Phone: LIDIA index (continuity VTI) 0.67 cm2/m2 [facility] Work Phone: Avg e' pk jay 0.04 m/s [facility] Work Phone: Avg E/e' ratio 33.52 [facility] Work Phone: Body surface area Derived from formula 1.55 m2 [facility] Work Phone: BP EF 50 % [facility] Work Phone: DI (Vmax) 0.50 [facility] Work Phone: DI (VTI) 0.53 m/2 [facility] Work Phone: E wave decelartion time 271.51 msec [facility] Work Phone: e' lateral pk jay 0.0400 m/s [facility] Work Phone: e' lateral pk jay 0.04 m/s [facility] Work Phone: e' septal pk jya 0.0344 m/s [facility] Work Phone: e' septal pk jay 0.03 m/s [facility] Work Phone: E/A ratio 0.94 [facility] Work Phone: E/e' lateral ratio 31.00 [facility] Work Phone: E/e' septal ratio 36.05 [facility] Work Phone: EF SP 2CH 63 [facility] Work Phone: EF SP 4CH 38 [facility] Work Phone: FS 19 % 28 - 44 % [facility] Work Phone: IVC ostium 1.29 cm [facility] Work Phone: IVS 1.46 cm [facility] Work Phone: LA AREA 2CH 17.45 cm2 [facility] Work Phone: LA area 4CH 21.49 cm2 [facility] Work Phone: LA ESV BP (MOD) 63 mL [facility] Work Phone: LA ESV BP (MOD) index 41 mL/m2 [facility] Work Phone: LA ESV SP 2CH (MOD) 52 mL [facility] Work Phone: LA ESV SP 4CH (MOD) 58 [facility] Work Phone: LV EDV BP 58 mL [facility] Work Phone: LV EDV SP 2CH 59 mL [facility] Work Phone: LV EDV SP 4CH 55 mL [facility] Work Phone: LV ESV BP 29 mL [facility] Work Phone: LV ESV SP 2CH 22 mL [facility] Work Phone: LV ESV SP 4CH 34 mL [facility] Work Phone: LV mass 144.20 g [facility] Work Phone: LV Mass Index 93.0 g/m2 [facility] Work Phone: LV RWT 0.71 [facility] Work Phone: LV stroke volume BP (ml) 29 mL [facility] Work Phone: LV stroke volume index BP 18.71 mL/m2 [facility] Work Phone: LVIDD 3.30 cm [facility] Work Phone: LVIDS 2.67 cm [facility] Work Phone: LVOT area 1.93 cm2 [facility] Work Phone: LVOT diameter 1.57 cm [facility] Work Phone: LVOT peak jay 0.95 m/s [facility] Work Phone: LVOT peak VTI 24.26 cm [facility] Work Phone: LVOT stroke volume 47 cm3 [facility] Work Phone: LVOT stroke volume index 30.29 ml/m2 [facility] Work Phone: MV mean gradient 3 mmHg [facility] Work Phone: MV peak gradient 8 mmHg [facility] Work Phone: MV pk A jay 1.32 m/s [facility] Work Phone: MV pk E jay 1.24 m/s [facility] Work Phone: MV valve area by continuity eq 0.93 cm2 [facility] Work Phone: MV VTI 50.60 cm [facility] Work Phone: MVA (continuity VTI) 0.93 cm [facility] Work Phone: [facility] AV VTI RATIO PRE STRESS 0.53 [facility] Work Phone: [facility] ECHO LV BIPLANE SYSTOLIC VOLUME INDEX 18.71 mL/m2 [facility] Work Phone: [facility] ECHO LV BP DIASTOLIC VOLUME INDEX 37.42 mL/m2 [facility] Work Phone: PV peak gradient 3 mmHg [facility] Work Phone: PV PK JAY 0.83 m/s [facility] Work Phone: PW 1.17 cm [facility] Work Phone: RVOT peak gradient 2 mmHg [facility] Work Phone: RVOT peak jay 0.66 m/s [facility] Work Phone: Sinus 2.85 cm [facility] Work Phone: STJ 2.29 cm [facility] Work Phone: Stroke Volume 47 cm/mL [facility] Work Phone: Stroke volume index 30 [facility] Work Phone: TAPSE 2.01 cm [facility] Work Phone: [facility] Work Phone: Cardiac echo study Procedure on 04-25-2022 S/p 23 mm Lorelei transcutaneously placed (TAVR) bioprosthetic valve. The date of implant was 04/25/2022. Limited image quality study. Left Ventricle: Chamber size is normal. Increased wall thickness. Concentric hypertrophy. Normal global systolic function. Regional wall motion is normal. Ejection fraction is low normal (50-55%). Diastolic function is consistent with pseudonormalization (grade II). Right Ventricle: Chamber size is normal. Systolic function is normal. Aortic Valve: (TAVR) bioprosthetic valve is well seated. No regurgitation. Mean gradient: 8 mmHg. Dimensionless Index by VTI: 0.53. Valve area continuity VTI: 1.03 cm2. The valve Vmax is 1.90 m/s. Pulmonary artery systolic pressure (PASP) is unable to be estimated. No pericardial effusion. Left Ventricle Chamber size is normal. Increased wall thickness. Concentric hypertrophy. Normal global systolic function. Regional wall motion is normal. Ejection fraction is low normal (50-55%). Diastolic function is consistent with pseudonormalization (grade II). Right Ventricle Chamber size is normal. Systolic function is normal. Left Atrium Chamber size is mildly enlarged. Right Atrium Chamber size is mildly enlarged. IVC/SVC The inferior vena cava structure has a diameter <21 mm and decreases >50% during inspiration. Mitral Valve Normal appearing leaflets. Severe anterior and posterior annular calcification. Trace regurgitation. No valve stenosis. Tricuspid Valve Tricuspid valve not well visualized. Trace regurgitation. No stenosis. Pulmonary artery systolic pressure (PASP) is unable to be estimated. Aortic Valve 23 mm Lorelei transcutaneously placed (TAVR) bioprosthetic valve. The date of implant was 04/25/2022. No regurgitation. Mean gradient: 8 mmHg. Dimensionless Index by VTI: 0.53. Valve area continuity VTI: 1.03 cm2. The valve Vmax is 1.90 m/s. Pulmonic Valve Pulmonic valve not well visualized. No regurgitation. No stenosis. Pericardium No pericardial effusion. Septum The atrial septum is normal. Aorta No dilation to extent seen. Study Details A complete echocardiography study was performed. Imaging system used: [email or web address]. 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 [facility] Radiology Study observation (narrative) [facility] ECHOCARDIOGRAMon 04-25-2022 Echocardiography ? S/p 23 mm Lorelei transcutaneously placed (TAVR) bioprosthetic valve. The date of implant was 04/25/2022. ? Limited image quality study. ? Left Ventricle: Chamber size is normal. Increased wall thickness. Concentric hypertrophy. Normal global systolic function. Regional wall motion is normal. Ejection fraction is low normal (50-55%). Diastolic function is consistent with pseudonormalization (grade II). ? Right Ventricle: Chamber size is normal. Systolic function is normal. ? Aortic Valve: (TAVR) bioprosthetic valve is well seated. No regurgitation. Mean gradient: 8 mmHg. Dimensionless Index by VTI: 0.53. Valve area continuity VTI: 1.03 cm2. The valve Vmax is 1.90 m/s. ? Pulmonary artery systolic pressure (PASP) is unable to be estimated. ? No pericardial effusion. Table formatting from the original result was not included. Images from the original result were not included. Facility [facility] Patient Information Patient Name Finesse Prather Legal Sex Female Indication for Exam Priority: Routine Dx: S/P TAVR (transcatheter aortic valve replacement) [Z95.2 (ICD-10-CM)] Order Question Reason for Exam post TAVR Interpretation Summary ? S/p 23 mm Lorelei transcutaneously placed (TAVR) bioprosthetic valve. The date of implant was 04/25/2022. ? Limited image quality study. ? Left Ventricle: Chamber size is normal. Increased wall thickness. Concentric hypertrophy. Normal global systolic function. Regional wall motion is normal. Ejection fraction is low normal (50-55%). Diastolic function is consistent with pseudonormalization (grade II). ? Right Ventricle: Chamber size is normal. Systolic function is normal. ? Aortic Valve: (TAVR) bioprosthetic valve is well seated. No regurgitation. Mean gradient: 8 mmHg. Dimensionless Index by VTI: 0.53. Valve area continuity VTI: 1.03 cm2. The valve Vmax is 1.90 m/s. ? Pulmonary artery systolic pressure (PASP) is unable to be estimated. ? No pericardial effusion. Findings Left Ventricle Chamber size is normal. Increased wall thickness. Concentric hypertrophy. Normal global systolic function. Regional wall motion is normal. Ejection fraction is low normal (50-55%). Diastolic function is consistent with pseudonormalization (grade II). Right Ventricle Chamber size is normal. Systolic function is normal. Left Atrium Chamber size is mildly enlarged. Right Atrium Chamber size is mildly enlarged. Septum The atrial septum is normal. Mitral Valve Normal appearing leaflets. Severe anterior and posterior annular calcification. Trace regurgitation. No valve stenosis. Aortic Valve 23 mm Lorelei transcutaneously placed (TAVR) bioprosthetic valve. The date of implant was 04/25/2022. No regurgitation. Mean gradient: 8 mmHg. Dimensionless Index by VTI: 0.53. Valve area continuity VTI: 1.03 cm2. The valve Vmax is 1.90 m/s. Tricuspid Valve Tricuspid valve not well visualized. Trace regurgitation. No stenosis. Pulmonary artery systolic pressure (PASP) is unable to be estimated. Pulmonic Valve Pulmonic valve not well visualized. No regurgitation. No stenosis. Aorta No dilation to extent seen. Pericardium No pericardial effusion. IVC/SVC The inferior vena cava structure has a diameter <21 mm and decreases >50% during inspiration. Reading Providers Reading Role Read Date Allen Tay MD Echo [place] 04/25/2022 Left Heart Measurements LV - Systole LVIDD 3.3 cm IVS 1.46 cm LVIDS 2.67 cm PW 1.17 cm LV RWT 0.71 LV Mass Index 93 g/m2 LV EDV BP 58 mL LV ESV BP 29 mL BP EF 50 % LV stroke volume BP (ml) 29 mL LV stroke volume index BP 18.71 mL/m2 LV - Diastole MV pk E jay 1.24 m/s MV pk A jay 1.32 m/s E/A ratio 0.94 e' septal pk jay 0.03 m/s e' lateral pk jay 0.04 m/s Avg e' pk jay 0.04 m/s E/e' septal ratio 36.05 E/e' lateral ratio 31 Avg E/e' ratio 33.52 LV - HCM AV LVOT peak gradient 4 mmHg Left Atrium LA ESV SP 4CH (MOD) 58 mL LA ESV SP 2CH (MOD) 52 mL LA ESV BP (MOD) index 41 mL/m2 Right Heart Measurements RV - Doppler TAPSE 2.01 cm Great Vessels Aortic Root - End Diastolic Sinus 2.85 cm STJ 2.29 cm Ascending aorta 3.01 cm Inferior Vena Cava IVC ostium 1.29 cm Doppler Measurements - Aortic Valve Stenosis LVOT diameter 1.57 cm LVOT area 1.93 cm2 LVOT peak jay 0.95 m/s LVOT peak VTI 24.26 cm Stroke Volume 47 cm/mL Stroke volume index 30 Ao peak jay 1.9 m/s Ao VTI 45.52 cm AV peak gradient 14 mmHG AV mean gradient 8 mmHg DI (VTI) 0.53 m/2 DI (Vmax) 0.5 LIDIA (continuity Vmax) 0.97 cm2 LIDIA index (continuity Vmax) 0.62 m/s LIDIA (continuity VTI) 1.03 cm2 LIDIA index (continuity VTI) 0.67 cm2/m2 LVOT stroke volume 47 cm3 LVOT stroke volume index 30.29 ml/m (more content not included)... Normal [facility] GLUCOSE POCon 04-25-2022 Glucose [Mass/Vol] 225 mg/dL High 70 - 99 mg/dL [facility] Interpretation and review of laboratory results Abnormal [facility] POC Sample Type CAPBL [facility] Test performed at address of the patient encounter. [facility] Glucose [Mass/Vol] 219 mg/dL High 70 - 99 mg/dL [facility] Interpretation and review of laboratory results Abnormal [facility] POC Sample Type CAPBL [facility] Test performed at address of the patient encounter. [facility] Glucose [Mass/Vol] 149 mg/dL High 70 - 99 mg/dL [facility] Interpretation and review of laboratory results Abnormal [facility] POC Sample Type CAPBL [facility] Test performed at address of the patient encounter. [facility] Glucose [Mass/Vol] 135 mg/dL High 70 - 99 mg/dL [facility] Interpretation and review of laboratory results Abnormal [facility] POC Sample Type CAPBL [facility] Test performed at address of the patient encounter. [facility] MAGNESIUMon 04-25-2022 Magnesium [Mass/Vol] 1.8 mg/dL Normal 1.6-2.[address] [facility] Comment on above: Order Comment: Draw upon arrival to unit. Performed By: #### M [facility]7 ####[facility] (DEFAULT)[address] [place] [address] Interpretation and review of laboratory results Normal [facility] Magnesium [Mass/Vol] 1.8 mg/dL 1.6 - 2 .6 mg/dL [facility] METANEPHRINES,24HR URINEon 0 04-25-2022 Annotation comment [Interpretation] Narrative DNR [facility] Collection duration (U) 24 h [facility] Metanephrine (24H U) [Mass/Time] 87 mcg/24 h [facility] Comment on above: REFERENCE VALUE 30-180 (Normotensive) <400 (Hypertensive) Metanephrines (24H U) [Mass/Time] 567 mcg/24 h [facility] Comment on above: REFERENCE VALUE 180-646 (Normotensive) <1300 (Hypertensive) Normetanephrine (24H U) [Mass/Time] 480 mcg/24 h [facility] Comment on above: REFERENCE VALUE 148-560 (Normotensive) <900 (Hypertensive) Specimen volume (24H U) 0.861 L [facility] Comment on above: ADDITIONAL INFORMATION This test was developed and its performance characteristics determined by [facility] in a manner consistent with CLIA requirements. This test has not been cleared or approved by the U.S. Food and Drug Administration. Test Performed by: [facility][Note 3] [address] [place] [address] Quality Director: Sah Goode M.D. Ph.D.; CLIA# [id number] [facility] No Panel Informationon 04-25 ABO/RH(D) TYPE Positive [facility] BLOOD COMPONENT TYPE Red Cells, Leukoreduced [facility] EXPIRATION DATE [id number] [facility] Product ABO/RH(D) Positive [facility] Product ABO/RH(D) NUMBER [id number] [facility] PRODUCT CODE [id number] [facility] UNIT STATUS released [facility] PREPARE TO TRANSFUSE OR RED BLOOD CELLSon 04-25-2022 UNIT NUMBER [id number] [facility] UNIT NUMBER [id number] [facility] PT,INR,PTTon 04-25-2022 aPTT Coag (Bld) [Time] 31.2 s Normal 24.0-34.[address] [facility] Comment on above: Order Comment: Draw upon arrival to unit. Performed By: #### C HM6 #### [facility] (DEFAULT) [address] [place] [id number] INR Coag (PPP) [Relative time] 1.1 {INR} Normal 0.9-1.[address] [facility] Comment on above: Order Comment: Draw upon arrival to unit. Performed By: #### C HM6 #### [facility] (DEFAULT) [address] [place] [id number] PT Coag (PPP) [Time] 14.1 s Normal 11.9-14.[address] [facility] Comment on above: Order Comment: Draw upon arrival to unit. Performed By: #### C HM6 #### [facility] (DEFAULT) [address] [place] [id number] aPTT Coag (PPP) [Time] 31.2 s [facility] INR Coag (Bld) [Relative time] 1.1 {INR} 0.9 - 1.1 [facility] Interpretation and review of laboratory results Normal [facility] PT Coag (PPP) [Time] 14.1 s [facility] Portable XR Chest Viewson IMPRESSION: Skinfold at the right lateral apex. Mild edema. Linear atelectatic changes. OLOGY EXAM: XR CHEST PORTABLE, 04/25/2022 14:28 PM COMPARISON: April 17, 2022 CLINICAL INDICATIONS: Post TAVR procedure RELEVANT CLINICAL HISTORY: For PACU; FINDINGS: (Adequate technique) Implanted Devices: None Thorax: Mild edema. Linear atelectasis bilaterally. There is a skinfold in the right lateral apical region. Heart size stable. RADIOLOGY Sung Uriarte MD - 04/25/2022 EXAM: XR CHEST PORTABLE, 04/25/2022 14:28 PM COMPARISON: April 17, 2022 CLINICAL INDICATIONS: Post TAVR procedure RELEVANT CLINICAL HISTORY: For PACU; FINDINGS: (Adequate technique) Implanted Devices: None Thorax: Mild edema. Linear atelectasis bilaterally. There is a skinfold in the right lateral apical region. Heart size stable. IMPRESSION IMPRESSION: Skinfold at the right lateral apex. Mild edema. Linear atelectatic changes. [facility] Radiology Study observation (narrative) [facility] Portable XR Chest ViewsOrder ed By: Sung Uriarte on 04-25-2022 [facility] Work Phone: XR CHEST PORTABLEon 04-25-19 XR CHEST PORTABLE EXAM: XR CHEST PORTABLE, 04/25/2022 14:28 PM COMPARISON: April 17, 2022 CLINICAL INDICATIONS: Post TAVR procedure RELEVANT CLINICAL HISTORY: For PACU; FINDINGS: (Adequate technique) Implanted Devices: None Thorax: Mild edema. Linear atelectasis bilaterally. There is a skinfold in the right lateral apical region. Heart size stable. IMPRESSION: Skinfold at the right lateral apex. Mild edema. Linear atelectatic changes. Normal [facility] ABORH TYPE RECONFIRMATIONon 04-24-2022 ABO/RH(D) TYPE Positive [facility] ABO/RH(D) TYPE Positive Normal [facility] Comment on above: Performed By: #### T YPEC #### [facility] (DEFAULT) [address] [place] [address] CBC,PLATELETSon 04-24-2022 Hematocrit (Bld) [Volume fraction] 31.2 % Low 34.9-44.[address] [facility] Comment on above: Performed By: #### C HM6 #### [facility] (DEFAULT) [address] [address] Hemoglobin (Bld) [Mass/Vol] 10.3 g/dL Low 11.4-15.2 [facility] Comment on above: Performed By: #### C HM6 #### [facility] (DEFAULT) [address] [place] [address]87 MCV (RBC) [Entitic vol] 86.2 fL Normal 79.6-97.[address] [facility] Comment on above: Performed By: #### C HM6 #### [facility] (DEFAULT) [address] [place] [address]201 Mean Cell Hgb 28.5 pg Normal 25.9-33.[address] [facility] Comment on above: Performed By: #### C HM6 #### [facility] (DEFAULT) [address] [place] [address] 18645 Mean Cell Hgb Conc 33.0 g/dL Normal 31.4-35.9 [facility] Comment on above: Performed By: #### C HM6 #### [facility] (DEFAULT) [address] [place] [address] 41811 Platelet mean volume (Bld) [Entitic vol] 9.9 fL Normal 8.5-12.[address] [facility] Comment on above: Performed By: #### C HM6 #### [facility] (DEFAULT) [address] [address] Platelets (Bld) [#/Vol] 205 10*3/uL Normal 150-[address] [facility] Comment on above: Performed By: #### C HM6 #### [facility] (DEFAULT) [address] [place] [address] 81772 RBC (Bld) [#/Vol] 3.62 10*6/uL Low 3.91-5.[address] [facility] Comment on above: Performed By: #### C HM6 #### [facility] (DEFAULT) [address] [address] RBC Distribution 13.0 % Normal 10.8-14.9 [facility] Comment on above: Performed By: #### C HM6 #### [facility] (DEFAULT) [address] [place] [address] 05626 WBC (Bld) [#/Vol] 5.78 10*3/uL Normal 3.99-11.[address] [facility] Comment on above: Performed By: #### C HM6 #### [facility] (DEFAULT) [address] [place] [address] Erythrocyte distribution width (RBC) [Ratio] 13.0 % 10.8 - 14.9 % [facility] Hematocrit (Bld) [Volume fraction] 31.2 % Low 34.9 - 44.3 % [facility] Hemoglobin (Bld) [Mass/Vol] 10.3 g/dL Low 11.4 - 15.2 g/dL [facility] Interpretation and review of laboratory results Abnormal [facility] MCH (RBC) [Entitic mass] 28.5 pg 25.9 - 33.9 pg [facility] MCHC (RBC) [Mass/Vol] 33.0 g/dL 31.4 - 35.9 g/dL [facility] MCV (RBC) [Entitic vol] 86.2 fL 79.6 - 97.7 fL [facility] Platelet mean volume (Bld) [Entitic vol] 9.9 fL 8.5 - 12.2 fL [facility] Platelets (Bld) [#/Vol] 205 10*3/uL 150 - 393 K/uL [facility] RBC (Bld) [#/Vol] 3.62 10*6/uL Low [facility] WBC (Bld) [#/Vol] 5.78 10*3/uL 3.99 - 11. 19 K/uL [facility] CHEM 7 (LYTES,BUN,CREA,GLUC) on 04-24-2022 Anion gap [Moles/Vol] 11 mmol/L Normal 7-17 [facility] Comment on above: Performed By: #### C HM7 #### [facility] (DEFAULT) [address] [place] [address] Chloride [Moles/Vol] 106 mmol/L Normal 98-[address] [facility] Comment on above: Performed By: #### C HM7 #### [facility] (DEFAULT) [address] [place] [address] 30759 CO2 [Moles/Vol] 25 mmol/L Normal 21-31 [facility] Comment on above: Performed By: #### C HM7 #### [facility] (DEFAULT) [address] [place] [address] 57784 Creatinine [Mass/Vol] 0.62 mg/dL Normal 0.50-1.20 [facility] Comment on above: Performed By: #### C HM7 #### [facility] (DEFAULT) [address] [place] [address] 71585 GFR/1.73 sq M.predicted among non-blacks MDRD (S/P/Bld) [Vol rate/Area] 86 mL/min/{1.73_m2} Normal >=[address] [facility] Comment on above: Result Comment: Repo rted eGFR is based on the CKD-EPI 2020 equation using creatinine, age, and sex. Performed By: #### C HM7 #### [facility] (DEFAULT) [address] [place] [address] 23663 Glucose [Mass/Vol] 140 mg/dL High 70-99 [facility] Comment on above: Performed By: #### C HM7 #### [facility] (DEFAULT) [address] [place] [address]295 Osmolality [Osmolality] 295 mosm/kg Normal 278-[address] [facility] Comment on above: Performed By: #### C HM7 #### [facility] (DEFAULT) [address] [place] [address] 45436 Potassium [Moles/Vol] 4.4 mmol/L Normal 3.5-5.0 [facility] Comment on above: Performed By: #### C HM7 #### [facility] (DEFAULT) [address] [place] [address] 81341 Sodium [Moles/Vol] 138 mmol/L Normal 135-145 [facility] Comment on above: Performed By: #### C HM7 #### [facility] (DEFAULT) [address] [place] [address] Urea nitrogen [Mass/Vol] 21 mg/dL Normal 7-[address] [facility] Comment on above: Performed By: #### C HM7 #### [facility] (DEFAULT) [address] [place] [address] Urea nitrogen/Creatinine [Mass ratio] 34 mg/mg Normal [facility] Comment on above: Performed By: #### C HM7 #### [facility] (DEFAULT) [address] [place] [address] Anion gap [Moles/Vol] 11 mmol/L 7 - 17 mmol/L [facility] Chloride [Moles/Vol] 106 mmol/L 98 - 10 8 mmol/L [facility] CO2 [Moles/Vol] 25 mmol/L 21 - 31 mmol/L [facility] Creatinine [Mass/Vol] 0.62 mg/dL 0.50 - 1.20 mg/dL [facility] GFR/1.73 sq M.predicted CKD-EPI (S/P/Bld) [Vol rate/Area] 86 - PINF [facility] Comment on above: Reported eGFR is bas ed on the CKD-EPI 2020 equation using creatinine, age, and sex. Glucose [Mass/Vol] 140 mg/dL High 70 - 99 mg/dL [facility] Interpretation and review of laboratory results Abnormal [facility] Osmolality Calc [Osmolality] 295 [facility] Potassium [Moles/Vol] 4.4 mmol/L 3.5 - 5.0 mmol/L [facility] Sodium [Moles/Vol] 138 mmol/L 135 - 145 mmol/L [facility] Urea nitrogen [Mass/Vol] 21 mg/dL 7 - 25 mg/dL [facility] Urea nitrogen/Creatinine [Mass ratio] 34 mg/mg [facility] CONTINUOUS CARDIAC MONITORIN G STRIPon 04-24-2022 [facility] GLUCOSE POCon 04-24-2022 Glucose [Mass/Vol] 180 mg/dL High 70 - 99 mg/dL [facility] Interpretation and review of laboratory results Abnormal [facility] POC Sample Type CAPBL [facility] Test performed at address of the patient encounter. [facility] Glucose [Mass/Vol] 164 mg/dL High 70 - 99 mg/dL [facility] Interpretation and review of laboratory results Abnormal [facility] POC Sample Type CAPBL [facility] Test performed at address of the patient encounter. [facility] Glucose [Mass/Vol] 143 mg/dL High 70 - 99 mg/dL [facility] Interpretation and review of laboratory results Abnormal [facility] POC Sample Type [facility] Test performed at address of the patient encounter. [facility] Glucose [Mass/Vol] 133 mg/dL High 70 - 99 mg/dL [facility] Interpretation and review of laboratory results Abnormal [facility] POC Sample Type [facility]BL [facility] Test performed at address of the patient encounter. [facility] TYPE AND SCREENon 04-24-2022 ABO/RH(D) TYPE Positive Normal [facility] Comment on above: Performed By: #### X M #### [facility] (DEFAULT) [address] [address] ABO/RH(D) TYPE Positive [facility] CBC,PLATELETSon 04-23-2022 Hematocrit (Bld) [Volume fraction] 33.9 % Low 34.9-44.[address] [facility] Comment on above: Performed By: #### L ABHSTI1 #### [facility] (DEFAULT) [address] [address] Hemoglobin (Bld) [Mass/Vol] 11.3 g/dL Low 11.4-15.[address] [facility] Comment on above: Performed By: #### L ABHSTI1 #### [facility] (DEFAULT) [address] [address] MCV (RBC) [Entitic vol] 87.1 fL Normal 79.6-97.[address] [facility] Comment on above: Performed By: #### L ABHSTI1 #### [facility] (DEFAULT) [address] [address] Mean Cell Hgb 29.0 pg Normal 25.9-33.[address] [facility] Comment on above: Performed By: #### L ABHSTI1 #### [facility] (DEFAULT) [address] [address] Mean Cell Hgb Conc 33.3 g/dL Normal 31.4-35.9 [facility] Comment on above: Performed By: #### L ABHSTI1 #### [facility] (DEFAULT) [address] [address] Platelet mean volume (Bld) [Entitic vol] 10.1 fL Normal 8.5-12.[address] [facility] Comment on above: Performed By: #### L ABHSTI1 #### [facility] (DEFAULT) [address] [address] Platelets (Bld) [#/Vol] 224 10*3/uL Normal 150-[address] [facility] Comment on above: Performed By: #### L ABHSTI1 #### [facility] (DEFAULT) [address] [address] RBC (Bld) [#/Vol] 3.89 10*6/uL Low 3.91-5.[address] [facility] Comment on above: Performed By: #### L [id number] #### [facility] (DEFAULT) [address] [address] RBC Distribution 13.2 % Normal 10.8-14.9 [facility] Comment on above: Performed By: #### L ABHSTI1 #### [facility] (DEFAULT) [address] [place] [address] WBC (Bld) [#/Vol] 6.07 10*3/uL Normal 3.99-11.[address] [facility] Comment on above: Performed By: #### L ABHSTI1 #### [facility] (DEFAULT) [address] [place] [address] Erythrocyte distribution width (RBC) [Ratio] 13.2 % 10.8 - 14.9 % [facility] Hematocrit (Bld) [Volume fraction] 33.9 % Low 34.9 - 44.3 % [facility] Hemoglobin (Bld) [Mass/Vol] 11.3 g/dL Low 11.4 - 15.2 g/dL [facility] Interpretation and review of laboratory results Abnormal [facility] MCH (RBC) [Entitic mass] 29.0 pg 25.9 - 33.9 pg [facility] MCHC (RBC) [Mass/Vol] 33.3 g/dL 31.4 - 35.9 g/dL [facility] MCV (RBC) [Entitic vol] 87.1 fL 79.6 - 97.7 fL [facility] Platelet mean volume (Bld) [Entitic vol] 10.1 fL 8.5 - 12.2 fL [facility] Platelets (Bld) [#/Vol] 224 10*3/uL 150 - 393 K/uL [facility] RBC (Bld) [#/Vol] 3.89 10*6/uL Low [facility] WBC (Bld) [#/Vol] 6.07 10*3/uL 3.99 - 11. 19 K/uL [facility] CHEM 7 (LYTES,BUN,CREA,GLUC) on 04-23-2022 Anion gap [Moles/Vol] 15 mmol/L Normal 7-17 [facility] Comment on above: Performed By: #### Y METN #### [facility] (DEFAULT) [address] [place] [address] Chloride [Moles/Vol] 106 mmol/L Normal 98-[address] [facility] Comment on above: Performed By: #### Y METN #### [facility] (DEFAULT) [address] [address] CO2 [Moles/Vol] 24 mmol/L Normal 21-31 [facility] Comment on above: Performed By: #### Y METN #### [facility] (DEFAULT) [address] [place] [address] Creatinine [Mass/Vol] 0.57 mg/dL Normal 0.50-1.20 [facility] Comment on above: Performed By: #### Y METN #### [facility] (DEFAULT) [address] [address] GFR/1.73 sq M.predicted among non-blacks MDRD (S/P/Bld) [Vol rate/Area] 88 mL/min/{1.73_m2} Normal >=[address] [facility] Comment on above: Result Comment: Repo rted eGFR is based on the CKD-EPI 2020 equation using creatinine, age, and sex. Performed By: #### Y METN #### [facility] (DEFAULT) [address] [address] Glucose [Mass/Vol] 146 mg/dL High 70-99 [facility] Comment on above: Performed By: #### Y METN #### [facility] (DEFAULT) [address] [place] [address] Osmolality [Osmolality] 300 mosm/kg Normal 278-[address] [facility] Comment on above: Performed By: #### Y METN #### [facility] (DEFAULT) [address] [address] Potassium [Moles/Vol] 4.7 mmol/L Normal 3.5-5.0 [facility] Comment on above: Performed By: #### Y METN #### [facility] (DEFAULT) [address] [place] [address] Sodium [Moles/Vol] 140 mmol/L Normal 135-145 [facility] Comment on above: Performed By: #### Y METN #### [facility] (DEFAULT) [address] [place] [address] Urea nitrogen [Mass/Vol] 20 mg/dL Normal 7-[address] [facility] Comment on above: Performed By: #### Y METN #### [facility] (DEFAULT) [address] [place] [address] Urea nitrogen/Creatinine [Mass ratio] 35 mg/mg Normal [facility] Comment on above: Performed By: #### Y METN #### [facility] (DEFAULT) [address] [place] [address] Anion gap [Moles/Vol] 15 mmol/L 7 - 17 mmol/L [facility] Chloride [Moles/Vol] 106 mmol/L 98 - 10 8 mmol/L [facility] CO2 [Moles/Vol] 24 mmol/L 21 - 31 mmol/L [facility] Creatinine [Mass/Vol] 0.57 mg/dL 0.50 - 1.20 mg/dL [facility] GFR/1.73 sq M.predicted CKD-EPI (S/P/Bld) [Vol rate/Area] 88 - PINF [facility] Comment on above: Reported eGFR is bas ed on the CKD-EPI 2020 equation using creatinine, age, and sex. Glucose [Mass/Vol] 146 mg/dL High 70 - 99 mg/dL [facility] Interpretation and review of laboratory results Abnormal [facility] Osmolality Calc [Osmolality] 300 [facility] Potassium [Moles/Vol] 4.7 mmol/L 3.5 - 5.0 mmol/L [facility] Sodium [Moles/Vol] 140 mmol/L 135 - 145 mmol/L [facility] Urea nitrogen [Mass/Vol] 20 mg/dL 7 - 25 mg/dL [facility] Urea nitrogen/Creatinine [Mass ratio] 35 [facility] MONITORIN G STRIPon 04-23-2022 [facility] GLUCOSE POCon 04-23-2022 Glucose [Mass/Vol] 144 mg/dL High 70 - 99 mg/dL [facility] Interpretation and review of laboratory results Abnormal [facility] POC Sample Type CAPBL [facility] Test performed at address of the patient encounter. [facility] Glucose [Mass/Vol] 89 mg/dL 70 - 99 mg/dL [facility] POC Sample Type CAPBL [facility] Test performed at address of the patient encounter. [facility] Glucose [Mass/Vol] 167 mg/dL High 70 - 99 mg/dL [facility] Interpretation and review of laboratory results Abnormal [facility] POC Sample Type CAPBL [facility] Test performed at address of the patient encounter. [facility] Glucose [Mass/Vol] 149 mg/dL High 70 - 99 mg/dL [facility] Interpretation and review of laboratory results Abnormal [facility] POC Sample Type VENO [facility] Test performed at address of the patient encounter. [facility] METANEPHRINES, PLASMAon 03-31 Metanephrine Free [Moles/Vol] <0.20 NINF - 0.50 nmol/L [facility] Comment on above: ADDITIONAL INFORMATION This test was developed and its performance characteristics determined by [facility] in a manner consistent with CLIA requirements. This test has not been cleared or approved by the U.S. Food and Drug Administration. Test Performed by: [facility] - [address] [address] Quality Director: Sha Goode M.D. Ph.D.; CLIA# [id number] Normetanephrine Free [Moles/Vol] 0.57 nmol/L NINF - 0.90 nmol/L [facility] CBC,PLATELETSon 04-22-2022 Hematocrit (Bld) [Volume fraction] 31.2 % Low 34.9-44.[address] [facility] Comment on above: Performed By: #### T YPEC #### [facility] (DEFAULT) [address] [address] Hemoglobin (Bld) [Mass/Vol] 10.4 g/dL Low 11.4-15.[address] [facility] Comment on above: Performed By: #### T YPEC #### [facility] (DEFAULT) [address] [address] MCV (RBC) [Entitic vol] 86.2 fL Normal 79.6-97.[address] [facility] Comment on above: Performed By: #### T YPEC #### [facility] (DEFAULT) [address] [address] Mean Cell Hgb 28.7 pg Normal 25.9-33.[address] [facility] Comment on above: Performed By: #### T YPEC #### [facility] (DEFAULT) [address] [address] Mean Cell Hgb Conc 33.3 g/dL Normal 31.4-35.9 [facility] Comment on above: Performed By: #### T YPEC #### [facility] (DEFAULT) [address] [address] Platelet mean volume (Bld) [Entitic vol] 9.9 fL Normal 8.5-12.[address] [facility] Comment on above: Performed By: #### T YPEC #### [facility] (DEFAULT) [address] [address] Platelets (Bld) [#/Vol] 198 10*3/uL Normal 150-[address] [facility] Comment on above: Performed By: #### T YPEC #### [facility] (DEFAULT) [address] [place] [address] RBC (Bld) [#/Vol] 3.62 10*6/uL Low 3.91-5.[address] [facility] Comment on above: Performed By: #### T YPEC #### [facility] (DEFAULT) [address] [place] [address] RBC Distribution 13.2 % Normal 10.8-14.9 [facility] Comment on above: Performed By: #### T YPEC #### [facility] (DEFAULT) [address] [place] [address] WBC (Bld) [#/Vol] 6.19 10*3/uL Normal 3.99-11.[address] [facility] Comment on above: Performed By: #### T YPEC #### [facility] (DEFAULT) [address] [place] [address] Erythrocyte distribution width (RBC) [Ratio] 13.2 % 10.8 - 14.9 % [facility] Hematocrit (Bld) [Volume fraction] 31.2 % Low 34.9 - 44.3 % [facility] Hemoglobin (Bld) [Mass/Vol] 10.4 g/dL Low 11.4 - 15.2 g/dL [facility] Interpretation and review of laboratory results Abnormal [facility] MCH (RBC) [Entitic mass] 28.7 pg 25.9 - 33.9 pg [facility] MCHC (RBC) [Mass/Vol] 33.3 g/dL 31.4 - 35.9 g/dL [facility] MCV (RBC) [Entitic vol] 86.2 fL 79.6 - 97.7 fL [facility] Platelet mean volume (Bld) [Entitic vol] 9.9 fL 8.5 - 12.2 fL [facility] Platelets (Bld) [#/Vol] 198 10*3/uL 150 - 393 K/uL [facility] RBC (Bld) [#/Vol] 3.62 10*6/uL Low [facility] WBC (Bld) [#/Vol] 6.19 10*3/uL 3.99 - 11. 19 K/uL [facility] CHEM 7 (LYTES,BUN,CREA,GLUC) on 04-22-2022 Anion gap [Moles/Vol] 12 mmol/L Normal 7-17 [facility] Comment on above: Performed By: #### T YPEC #### [facility] (DEFAULT) [address] [place] [address] Chloride [Moles/Vol] 104 mmol/L Normal 98-[address] [facility] Comment on above: Performed By: #### T YPEC #### [facility] (DEFAULT) [address] [place] [address] CO2 [Moles/Vol] 26 mmol/L Normal 21-31 [facility] Comment on above: Performed By: #### T YPEC #### [facility] (DEFAULT) [address] [place] [address] Creatinine [Mass/Vol] 0.55 mg/dL Normal 0.50-1.20 [facility] Comment on above: Performed By: #### T YPEC #### [facility] (DEFAULT) [address] [place] [address] GFR/1.73 sq M.predicted among non-blacks MDRD (S/P/Bld) [Vol rate/Area] 89 mL/min/{1.73_m2} Normal >=[address] [facility] Comment on above: Result Comment: Repo rted eGFR is based on the CKD-EPI 2020 equation using creatinine, age, and sex. Performed By: #### T YPEC #### [facility] (DEFAULT) [address] [place] [address] Glucose [Mass/Vol] 149 mg/dL High 70-99 [facility] Comment on above: Performed By: #### T YPEC #### [facility] (DEFAULT) [address] [place] [address] Osmolality [Osmolality] 293 mosm/kg Normal 278-[address] [facility] Comment on above: Performed By: #### T YPEC #### [facility] (DEFAULT) [address] [place] [address] Potassium [Moles/Vol] 4.8 mmol/L Normal 3.5-5.0 [facility] Comment on above: Performed By: #### T YPEC #### [facility] (DEFAULT) [address] [place] [address] Sodium [Moles/Vol] 137 mmol/L Normal 135-145 [facility] Comment on above: Performed By: #### T YPEC #### [facility] (DEFAULT) [address] [place] [address] Urea nitrogen [Mass/Vol] 16 mg/dL Normal 7-[address] [facility] Comment on above: Performed By: #### T YPEC #### [facility] (DEFAULT) [address] [place] [address] Urea nitrogen/Creatinine [Mass ratio] 29 mg/mg Normal [facility] Comment on above: Performed By: #### T YPEC #### [facility] (DEFAULT) [address] [place] [address] Anion gap [Moles/Vol] 12 mmol/L 7 - 17 mmol/L [facility] Chloride [Moles/Vol] 104 mmol/L 98 - 10 8 mmol/L [facility] CO2 [Moles/Vol] 26 mmol/L 21 - 31 mmol/L [facility] Creatinine [Mass/Vol] 0.55 mg/dL 0.50 - 1.20 mg/dL [facility] GFR/1.73 sq M.predicted CKD-EPI (S/P/Bld) [Vol rate/Area] 89 - PINF [facility] Comment on above: Reported eGFR is bas ed on the CKD-EPI 2020 equation using creatinine, age, and sex. Glucose [Mass/Vol] 149 mg/dL High 70 - 99 mg/dL [facility] Interpretation and review of laboratory results Abnormal [facility] Osmolality Calc [Osmolality] 293 [facility] Potassium [Moles/Vol] 4.8 mmol/L 3.5 - 5.0 mmol/L [facility] Sodium [Moles/Vol] 137 mmol/L 135 - 145 mmol/L [facility] Urea nitrogen [Mass/Vol] 16 mg/dL 7 - 25 mg/dL [facility] Urea nitrogen/Creatinine [Mass ratio] 29 mg/mg [facility] GLUCOSE POCon 04-22-2022 Glucose [Mass/Vol] 219 mg/dL High 70 - 99 mg/dL [facility] Interpretation and review of laboratory results Abnormal [facility] POC Sample Type CAPBL [facility] Test performed at address of the patient encounter. [facility] Glucose [Mass/Vol] 145 mg/dL High 70 - 99 mg/dL [facility] Interpretation and review of laboratory results Abnormal [facility] POC Sample Type CAPBL [facility] Test performed at address of the patient encounter. [facility] Glucose [Mass/Vol] 211 mg/dL High 70 - 99 mg/dL [facility] Interpretation and review of laboratory results Abnormal [facility] POC Sample Type CAPBL [facility] Test performed at address of the patient encounter. [facility] Glucose [Mass/Vol] 136 mg/dL High 70 - 99 mg/dL [facility] Interpretation and review of laboratory results Abnormal [facility] POC Sample Type CAPBL [facility] Test performed at address of the patient encounter. [facility] INVASIVE CARDIOVASCULAR PROC EDUREon 04-22-2022 INVASIVE CARDIOVASCULAR PROCEDURE Impression: Successful high-risk, complex PCI to proximal to mid LAD with two overlapping drug eluting stents. Calcified distal left main and ostial/proximal LAD appears non-obstructive and stable by IVUS. Recommendations: Uninterrupted DAPT for 1 year, if tolerated Single agent antiplatelet therapy for life afterward. Consider stage PCI to RCA later this admission. Continued work up and management for aortic stenosis. Risk factor surveillance and modification. Access: Right femoral artery with 7 FR sheath. Perclose for hemostasis. Limited coronary angiogram: Moderate left main disease with eccentric, calcified 40% distal stenosis. Minimal luminal area of left main was 10 mm2 on IVUS. LAD with serial sub-total stenosis in proximal to mid vessel. Mild to moderate disease elsewhere. LCx with 90% ostial stenosis. Mild disease elsewhere. Right coronary recently interrogated. Not engaged. Intervention: Complex, high-risk PCI: moderate to heavy calcification, tortuous, bifurcation lesion involving large diagonal and LAD Proper guide engagement of the left coronary artery was not possible with a 7 FR EBU 3.5 and a 7 FR XB guide, so a 6 FR EBU 3.0 guide was used. The proximal to mid LAD stenosis was unable to be traversed with a Hollywood XT. A Whisper wire was successfully advanced to the distal LAD. The lesions were pre-dilated with a 1.5 x 15 mm Takeru balloon, a 2 x 20 mm compliant balloon, and a 2.5 x 20 mm compliant balloon in succession. The mid LAD lesion was treated with a 2.5 x 18 mm Xience Skypoint HIRAL deployed at 12 bola. The proximal LAD lesion was treated with a 2.75 x 15 mm Xience Skypoint HIRAL deployed at 15 bola. The overlap was dilated with the stent balloon. IVUS of the left main and proximal LAD showed no dissection with non-obstructive left main MLA as above. Final angiography showed good result without complication and CAITLIN 3 flow throughout the vessel. Impression: Successful high-risk, complex PCI to proximal to mid LAD with two overlapping drug eluting stents. Calcified distal left main and ostial/proximal LAD appears non-obstructive and stable by IVUS. Recommendations: Uninterrupted DAPT for 1 year, if tolerated Single agent antiplatelet therapy for life afterward. Consider stage PCI to RCA later this admission. Continued work up and management for aortic stenosis. Risk factor surveillance and modification. Access: Right femoral artery with 7 FR sheath. Perclose for hemostasis. Limited coronary angiogram: Moderate left main disease with eccentric, calcified 40% distal stenosis. Minimal luminal area of left main was 10 mm2 on IVUS. LAD with serial sub-total stenosis in proximal to mid vessel. Mild to moderate disease elsewhere. LCx with 90% ostial stenosis. Mild disease elsewhere. Right coronary recently interrogated. Not engaged. Intervention: Complex, high-risk PCI: moderate to heavy calcification, tortuous, bifurcation lesion involving large diagonal and LAD Proper guide engagement of the left coronary artery was not possible with a 7 FR EBU 3.5 and a 7 FR XB guide, so a 6 FR EBU 3.0 guide was used. The proximal to mid LAD stenosis was unable to be traversed with a Hollywood XT. A Whisper wire was successfully advanced to the distal LAD. The lesions were pre-dilated with a 1.5 x 15 mm Takeru balloon, a 2 x 20 mm compliant balloon, and a 2.5 x 20 mm compliant balloon in succession. The mid LAD lesion was treated with a 2.5 x 18 mm Xience Skypoint HIRAL deployed at 12 bola. The proximal LAD lesion was treated with a 2.75 x 15 mm Xience Skypoint HIRAL deployed at 15 bola. The overlap was dilated with the stent balloon. IVUS of the left main and proximal LAD showed no dissection with non-obstructive left main MLA as above. Final angiography showed good result without complication and CAITLIN 3 flow throughout the vessel. Table formatting from the original result was not included. Images from the original result were not included. Finesse Prather Invasive Cardiology Cath Procedure Ordering Physician: ELE SAAVEDRA Order #: [id number] Study Date: 04/01/2022 Patient Information Name MRN Description Finesse Prather [id number] 87 y.o. female Location Name Address [facility] [address] [facility] [address] Physicians Panel Physicians Referring Physician Case Authorizing Physician Eder Jaime Jr., MD (Primary) MD Ele Chapman MD Alexander J Meyer, MD (Fellow) CC Referring Recipient Method Contact Information [facility] MD In Basket ? Murphy Burton MD Fax ? 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 Normal [facility] METANEPHRINES,24HR URINEon 0 1--2022 INTERVAL: 24 h Normal [facility] Comment on above: Order Comment: Prese rvative, acetic acid, obtained from lab Performed By: #### Y METN #### [facility] (DEFAULT) [address] [place] [address] METANEPHRINE, URINE 87 mcg/24 h [address] [facility] Comment on above: Order Comment: Prese rvative, acetic acid, obtained from lab Result Comment: REFERENCE VALUE 30-180 (Normotensive) <400 (Hypertensive) Performed By: #### Y METN #### [facility] (DEFAULT) [address] [place] [address] METANEPHRINES, FRACT, 24H URINE DNR Normal [facility] Comment on above: Order Comment: Prese rvative, acetic acid, obtained from lab Performed By: #### Y METN #### [facility] (DEFAULT) [address] [place] [address] METANEPHRINES, TOTAL, URINE 567 mcg/24 h Normal [facility] Comment on above: Order Comment: Prese rvative, acetic acid, obtained from lab Result Comment: REFERENCE VALUE 180-646 (Normotensive) <1300 (Hypertensive) Performed By: #### Y METN #### [facility] (DEFAULT) [address] [address] NORMETANEPHRINE, URINE 480 mcg/24 h Normal [facility] Comment on above: Order Comment: Prese rvative, acetic acid, obtained from lab Result Comment: REFERENCE VALUE 148-560 (Normotensive) <900 (Hypertensive) Performed By: #### Y METN #### [facility] (DEFAULT) [address] [place] [address] VOLUME: 861 mL Normal [facility] Comment on above: Order Comment: Prese rvative, acetic acid, obtained from lab Result Comment: ADDITIONAL INFORMATION This test was developed and its performance characteristics determined by [facility] in a manner consistent with CLIA requirements. This test has not been cleared or approved by the U.S. Food and Drug Administration. Test Performed by: [facility] [address] [place] [address] Quality Director: Sha Goode M.D. Ph.D.; CLIA# [id number] Performed By: #### Y METN #### [facility] (DEFAULT) [address] [place] [address] US.doppler Renal vesselsOrde red By: Staci Bonilla on 04-22-2022 [facility] Work Phone: US.doppler Renal vesselson 0 04-22-2022 Radiology Study observation (narrative) [facility] CBC,PLATELETSon 04-21-2022 Hematocrit (Bld) [Volume fraction] 31.6 % Low 34.9-44.[address] [facility] Comment on above: Performed By: #### Y METN #### [facility] (DEFAULT) [address] [place] [address] Hemoglobin (Bld) [Mass/Vol] 10.6 g/dL Low 11.4-15.[address] [facility] Comment on above: Performed By: #### Y METN #### [facility] (DEFAULT) [address] [place] [address] MCV (RBC) [Entitic vol] 86.3 fL Normal 79.6-97.[address] [facility] Comment on above: Performed By: #### Y METN #### [facility] (DEFAULT) [address] [place] [address] Mean Cell Hgb 29.0 pg Normal 25.9-33.[address] [facility] Comment on above: Performed By: #### Y METN #### [facility] (DEFAULT) [address] [place] [address] Mean Cell Hgb Conc 33.5 g/dL Normal 31.4-35.9 [facility] Comment on above: Performed By: #### Y METN #### [facility] (DEFAULT) [address] [place] [address] Platelet mean volume (Bld) [Entitic vol] 10.2 fL Normal 8.5-12.[address] [facility] Comment on above: Performed By: #### Y METN #### [facility] (DEFAULT) [address] [address] Platelets (Bld) [#/Vol] 203 10*3/uL Normal 150-[address] [facility] Comment on above: Performed By: #### Y METN #### [facility] (DEFAULT) [address] [place] [address] RBC (Bld) [#/Vol] 3.66 10*6/uL Low 3.91-5.[address] [facility] Comment on above: Performed By: #### Y METN #### [facility] (DEFAULT) [address] [place] [address] RBC Distribution 13.3 % Normal 10.8-14.9 [facility] Comment on above: Performed By: #### Y METN #### [facility] (DEFAULT) [address] [place] [address] WBC (Bld) [#/Vol] 6.15 10*3/uL Normal 3.99-11.[address] [facility] Comment on above: Performed By: #### Y METN #### [facility] (DEFAULT) [address] [place] [address] Erythrocyte distribution width (RBC) [Ratio] 13.3 % 10.8 - 14.9 % [facility] Hematocrit (Bld) [Volume fraction] 31.6 % Low 34.9 - 44.3 % [facility] Hemoglobin (Bld) [Mass/Vol] 10.6 g/dL Low 11.4 - 15.2 g/dL [facility] Interpretation and review of laboratory results Abnormal [facility] MCH (RBC) [Entitic mass] 29.0 pg 25.9 - 33.9 pg [facility] MCHC (RBC) [Mass/Vol] 33.5 g/dL 31.4 - 35.9 g/dL [facility] MCV (RBC) [Entitic vol] 86.3 fL 79.6 - 97.7 fL [facility] Platelet mean volume (Bld) [Entitic vol] 10.2 fL 8.5 - 12.2 fL [facility] Platelets (Bld) [#/Vol] 203 10*3/uL 150 - 393 K/uL [facility] RBC (Bld) [#/Vol] 3.66 10*6/uL Low [facility] WBC (Bld) [#/Vol] 6.15 10*3/uL 3.99 - 11. 19 K/uL [facility] CHEM 7 (LYTES,BUN,CREA,GLUC) on 04-21-2022 Anion gap [Moles/Vol] 12 mmol/L Normal 7-17 [facility] Comment on above: Performed By: #### C HM7 #### [facility] (DEFAULT) [address] [place] [address] Chloride [Moles/Vol] 107 mmol/L Normal 98-[address] [facility] Comment on above: Performed By: #### C HM7 #### [facility] (DEFAULT) [address] [place] [address] CO2 [Moles/Vol] 25 mmol/L Normal 21-31 [facility] Comment on above: Performed By: #### C HM7 #### [facility] (DEFAULT) [address] [place] [address] Creatinine [Mass/Vol] 0.63 mg/dL Normal 0.50-1.20 [facility] Comment on above: Performed By: #### C HM7 #### [facility] (DEFAULT) [address] [place] [address] GFR/1.73 sq M.predicted among non-blacks MDRD (S/P/Bld) [Vol rate/Area] 86 mL/min/{1.73_m2} Normal >=[address] [facility] Comment on above: Result Comment: Repo rted eGFR is based on the CKD-EPI 2020 equation using creatinine, age, and sex. Performed By: #### C HM7 #### [facility] (DEFAULT) [address] [place] [address] Glucose [Mass/Vol] 140 mg/dL High 70-99 [facility] Comment on above: Performed By: #### C HM7 #### [facility] (DEFAULT) [address] [place] [address] Osmolality [Osmolality] 299 mosm/kg Normal 278-[address] [facility] Comment on above: Performed By: #### C HM7 #### [facility] (DEFAULT) [address] [place] [address] Potassium [Moles/Vol] 4.0 mmol/L Normal 3.5-5.0 [facility] Comment on above: Performed By: #### C HM7 #### [facility] (DEFAULT) [address] [place] [address] Sodium [Moles/Vol] 140 mmol/L Normal 135-145 [facility] Comment on above: Performed By: #### C HM7 #### [facility] (DEFAULT) [address] [place] [address] Urea nitrogen [Mass/Vol] 22 mg/dL Normal 7-[address] [facility] Comment on above: Performed By: #### C HM7 #### [facility] (DEFAULT) [address] [place] [address] Urea nitrogen/Creatinine [Mass ratio] 35 mg/mg Normal [facility] Comment on above: Performed By: #### C HM7 #### [facility] (DEFAULT) [address] [place] [address] Anion gap [Moles/Vol] 12 mmol/L 7 - 17 mmol/L [facility] Chloride [Moles/Vol] 107 mmol/L 98 - 10 8 mmol/L [facility] CO2 [Moles/Vol] 25 mmol/L 21 - 31 mmol/L [facility] Creatinine [Mass/Vol] 0.63 mg/dL 0.50 - 1.20 mg/dL [facility] GFR/1.73 sq M.predicted CKD-EPI (S/P/Bld) [Vol rate/Area] 86 - PINF [facility] Comment on above: Reported eGFR is bas ed on the CKD-EPI 2020 equation using creatinine, age, and sex. Glucose [Mass/Vol] 140 mg/dL High 70 - 99 mg/dL [facility] Interpretation and review of laboratory results Abnormal [facility] Osmolality Calc [Osmolality] [facility] Potassium [Moles/Vol] 4.0 mmol/L 3.5 - 5.0 mmol/L [facility] Sodium [Moles/Vol] 140 mmol/L 135 - 145 mmol/L [facility] Urea nitrogen [Mass/Vol] 22 mg/dL 7 - 25 mg/dL [facility] Urea nitrogen/Creatinine [Mass ratio] 35 mg/mg [facility] CONTINUOUS CARDIAC MONITORIN G STRIPon 04-21-2022 [facility] GLUCOSE POCon 04-21-2022 Glucose [Mass/Vol] 121 mg/dL High 70 - 99 mg/dL [facility] Interpretation and review of laboratory results Abnormal [facility] POC Sample Type CAPBL [facility] Test performed at address of the patient encounter. [facility] Glucose [Mass/Vol] 119 mg/dL High 70 - 99 mg/dL [facility] Interpretation and review of laboratory results Abnormal [facility] POC Sample Type CAPBL [facility] Test performed at address of the patient encounter. [facility] Glucose [Mass/Vol] 177 mg/dL High 70 - 99 mg/dL [facility] Interpretation and review of laboratory results Abnormal [facility] POC Sample Type CAPBL [facility] Test performed at address of the patient encounter. [facility] Glucose [Mass/Vol] 147 mg/dL High 70 - 99 mg/dL [facility] Interpretation and review of laboratory results Abnormal [facility] POC Sample Type CAPBL [facility] Test performed at address of the patient encounter. [facility] HIGH SENSITIVITY TROPONIN I - SINGLE ORDERon 04-21-2022 hs-Troponin I 392 ng/L High <[address] [facility] Comment on above: Order Comment: Acute Coronary Syndrome (ACS): Initial Evaluation and Management:[email or web address] [email or web address]%[email or web address] Result Comment: Triston estive of myocardial injury Performed By: #### C HM7 #### [facility] (DEFAULT) [address] [address] HIGH SENSITIVITY TROPONIN I - SINGLE ORDEROrdered By: Bob Montalvo on 04-21-2022 Interpretation and review of laboratory results Abnormal [facility] Troponin I.cardiac DL <= 0.01 ng/mL [Mass/Vol] 392 ng/L High NINF - 34 ng/L [facility] Comment on above: Suggestive of myocar dial injury [facility] METANEPHRINES, PLASMAon 03-31 METANEPHRINE, FREE, PLASMA <0.20 Normal <0.[address] [facility] Comment on above: Result Comment: ADDITIONAL INFORMATION This test was developed and its performance characteristics determined by [facility] in a manner consistent with CLIA requirements. This test has not been cleared or approved by the U.S. Food and Drug Administration. Test Performed by: [facility] [place] [id number] Quality Director: Sha Goode M.D. Ph.D.; CLIA# [id number] Performed By: #### C HM6 #### [facility] (DEFAULT) [address] [place] [address] NORMETANEPHRINE, FREE 0.57 nmol/L Normal <0.90 [facility] Comment on above: Performed By: #### C HM6 #### [facility] (DEFAULT) [address] [address] B-TYPE NATRIURETIC PEPTIDE ( BRAIN)on 04-20-2022 Interpretation and review of laboratory results Abnormal [facility] Natriuretic peptide B (Bld) [Mass/Vol] 426 pg/mL High 0 - 100 pg/mL [facility] Natriuretic peptide B (Bld) [Mass/Vol] 426 pg/mL High 0-[address] [facility] Comment on above: Performed By: #### S CRSB #### [facility] (DEFAULT) [address] [place] [address] CALCIUMon 04-20-2022 Calcium [Mass/Vol] 8.8 mg/dL Normal 8.6-10.5 [facility] Comment on above: Performed By: #### C HM7 #### [facility] (DEFAULT) [address] [place] [address] Calcium [Mass/Vol] 8.8 mg/dL 8.6 - 10. 5 mg/dL [facility] CBC AND ELECTRONIC DIFFon Abs Baso Auto < Normal 0.00-0.[address] [facility] Comment on above: Performed By: #### L [id number] ####[facility] (DEFAULT)[address] [place] [address] Basophils/100 WBC (Bld) 0.5 % Normal [facility] Comment on above: Performed By: #### L [id number] ####[facility] (DEFAULT)[address] [place] [address] DIFF STATUS Electronic Differential Normal [facility] Comment on above: Performed By: #### L AB980 ####[facility] (DEFAULT)[address] [place] [address]19 Eosinophils (Bld) [#/Vol] 0.09 10*3/uL Normal 0.00-0.[address] [facility] Comment on above: Performed By: #### L AB980 ####[facility] (DEFAULT)[address] [place] [address] Eosinophils/100 WBC (Bld) 1.4 % Normal [facility] Comment on above: Performed By: #### L [id number] ####[facility] (DEFAULT)[address] [facility] [place] [address] Hematocrit (Bld) [Volume fraction] 35.3 % Normal 34.9-44.[address] [facility] Comment on above: Performed By: #### L AB980 ####[facility] (DEFAULT)[address] [facility] [place] [address] Hemoglobin (Bld) [Mass/Vol] 12.0 g/dL Normal 11.4-15.[address] [facility] Comment on above: Performed By: #### L AB980 ####[facility] (DEFAULT)[address] [facility] [place] [address] Immature Grans % 0.5 % Normal [facility] Comment on above: Performed By: #### L AB980 ####[facility] (DEFAULT)[address] [place] [address] Immature Grans Absolute < Normal <=0.[address] [facility] Comment on above: Performed By: #### L AB980 ####[facility] (DEFAULT)[address] [place] [address] Lymphocytes (Bld) [#/Vol] 1.17 10*3/uL Normal 1.16-3.[address] [facility] Comment on above: Performed By: #### L AB980 ####[facility] (DEFAULT)[address] [place] [address] Lymphocytes/100 WBC (Bld) 17.9 % Normal [facility] Comment on above: Performed By: #### L AB980 ####[facility] (DEFAULT)[address] [place] [address] MCV (RBC) [Entitic vol] 85.3 fL Normal 79.6-97.[address] [facility] Comment on above: Performed By: #### L AB980 ####[facility] (DEFAULT)[address] [facility] [place] [address] Mean Cell Hgb 29.0 pg Normal 25.9-33.[address] [facility] Comment on above: Performed By: #### L AB980 ####[facility] (DEFAULT)[address] [place] [address], [place] [address] Mean Cell Hgb Conc 34.0 g/dL Normal 31.4-35.9 [facility] Comment on above: Performed By: #### L AB980 ####[facility] (DEFAULT)[address] [place] [address], [place] [address] Monocytes (Bld) [#/Vol] 0.70 10*3/uL Normal 0.22-0.[address] [facility] Comment on above: Performed By: #### L AB980 ####[facility] (DEFAULT)[address] [place] [address], [place] [address] Monocytes/100 WBC (Bld) 10.7 % Normal [facility] Comment on above: Performed By: #### L AB980 ####[facility] (DEFAULT)[address] [place] [address], [place] [address] Nucleated RBC 0.0 /100 WBC Normal <=0.2 [facility] Comment on above: Performed By: #### L [id number] ####[facility] (DEFAULT)[address] [place] [address] Platelet mean volume (Bld) [Entitic vol] 10.0 fL Normal 8.5-12.[address] [facility] Comment on above: Performed By: #### L [id number] ####[facility] (DEFAULT)[address] [place] [address], [place] [address] Platelets (Bld) [#/Vol] 202 10*3/uL Normal 150-[address] [facility] Comment on above: Performed By: #### L AB980 ####[facility] (DEFAULT)[address] [place] [address] RBC (Bld) [#/Vol] 4.14 10*6/uL Normal 3.91-5.[address] [facility] Comment on above: Performed By: #### L AB980 ####[facility] (DEFAULT)[address] [place] [address] RBC Distribution 13.2 % Normal 10.8-14.9 [facility] Comment on above: Performed By: #### L AB980 ####[facility] (DEFAULT)[address] [place] [address] Segs + Bands Auto 69.0 % Normal [facility] Comment on above: Performed By: #### L AB980 ####[facility] (DEFAULT)[address] [place] [address] Segs + Bands,Absolute Auto 4.50 K/uL Normal 1.64-7.[address] [facility] Comment on above: Performed By: #### L AB980 ####[facility] (DEFAULT)[address] [place] [address] WBC (Bld) [#/Vol] 6.52 10*3/uL Normal 3.99-11.[address] [facility] Comment on above: Performed By: #### L AB980 ####[facility] (DEFAULT)[address] [place] [address] Basophils (Bld) [#/Vol] K/uL 0.00 - 0.15 K/uL [facility] Basophils/100 WBC (Bld) 0.5 % [facility] Differential cell count method Nom (Bld) Electronic Differential [facility] Eosinophils (Bld) [#/Vol] 0.09 10*3/uL 0.00 - 0.42 K/uL [facility] Eosinophils/100 WBC (Bld) 1.4 % [facility] Erythrocyte distribution width (RBC) [Ratio] 13.2 % 10.8 - 14.9 % [facility] Hematocrit (Bld) [Volume fraction] 35.3 % 34.9 - 44.3 % [facility] Hemoglobin (Bld) [Mass/Vol] 12.0 g/dL 11.4 - 15.2 g/dL [facility] Immature granulocytes (Bld) [#/Vol] K/uL NINF - 0.08 K/uL [facility] Immature granulocytes/100 WBC (Bld) 0.5 % [facility] Lymphocytes (Bld) [#/Vol] 1.17 10*3/uL 1.16 - 3.51 K/uL [facility] Lymphocytes/100 WBC (Bld) 17.9 % [facility] MCH (RBC) [Entitic mass] 29.0 pg 25.9 - 33.9 pg [facility] MCHC (RBC) [Mass/Vol] 34.0 g/dL 31.4 - 35.9 g/dL [facility] MCV (RBC) [Entitic vol] 85.3 fL 79.6 - 97.7 fL [facility] Monocytes (Bld) [#/Vol] 0.70 10*3/uL 0.22 - 0.87 K/uL [facility] Monocytes/100 WBC (Bld) 10.7 % [facility] Neutrophils (Bld) [#/Vol] 4.50 10*3/uL 1.64 - 7.28 K/uL [facility] Nucleated RBC/100 WBC (Bld) [Ratio] 0.0 % [facility] Platelet mean volume (Bld) [Entitic vol] 10.0 fL 8.5 - 12.2 fL [facility] Platelets (Bld) [#/Vol] 202 10*3/uL 150 - 393 K/uL [facility] RBC (Bld) [#/Vol] 4.14 10*6/uL [facility] Segmented neutrophils/100 WBC (Bld) 69.0 % [facility] WBC (Bld) [#/Vol] 6.52 10*3/uL 3.99 - 11. 19 K/uL [facility] CHEM 7 (LYTES,BUN,CREA,GLUC) on 04-20-2022 Anion gap [Moles/Vol] 15 mmol/L Normal 7-17 [facility] Comment on above: Performed By: #### C HM7 #### [facility] (DEFAULT) [address] [place] [address] Chloride [Moles/Vol] 103 mmol/L Normal 98-[address] [facility] Comment on above: Performed By: #### C HM7 #### [facility] (DEFAULT) [address] [place] [address]65 CO2 [Moles/Vol] 23 mmol/L Normal 21-31 [facility] Comment on above: Performed By: #### C HM7 #### [facility] (DEFAULT) [address] [place] [address]79 Creatinine [Mass/Vol] 0.58 mg/dL Normal 0.50-1.20 [facility] Comment on above: Performed By: #### C HM7 #### [facility] (DEFAULT) [address] [place] [address] 81174 GFR/1.73 sq M.predicted among non-blacks MDRD (S/P/Bld) [Vol rate/Area] 88 mL/min/{1.73_m2} Normal >=[address] [facility] Comment on above: Result Comment: Repo rted eGFR is based on the CKD-EPI 2020 equation using creatinine, age, and sex. Performed By: #### C HM7 #### [facility] (DEFAULT) [address] [place] [address]28 Glucose [Mass/Vol] 181 mg/dL High 70-99 [facility] Comment on above: Performed By: #### C HM7 #### [facility] (DEFAULT) [address] [place] [address] 66266 Osmolality [Osmolality] 293 mosm/kg Normal 278-[address] [facility] Comment on above: Performed By: #### C HM7 #### [facility] (DEFAULT) [address] [place] [address]11 Potassium [Moles/Vol] 4.7 mmol/L Normal 3.5-5.0 [facility] Comment on above: Performed By: #### C HM7 #### [facility] (DEFAULT) [address] [place] [address] 81143 Sodium [Moles/Vol] 136 mmol/L Normal 135-145 [facility] Comment on above: Performed By: #### C HM7 #### [facility] (DEFAULT) [address] [place] [address] 65603 Urea nitrogen [Mass/Vol] 16 mg/dL Normal 7-[address] [facility] Comment on above: Performed By: #### C HM7 #### [facility] (DEFAULT) [address] [place] [address] 62785 Urea nitrogen/Creatinine [Mass ratio] 28 mg/mg Normal [facility] Comment on above: Performed By: #### C HM7 #### [facility] (DEFAULT) [address] [place] [address] 26848 Anion gap [Moles/Vol] 15 mmol/L 7 - 17 mmol/L [facility] Chloride [Moles/Vol] 103 mmol/L 98 - 10 8 mmol/L [facility] CO2 [Moles/Vol] 23 mmol/L 21 - 31 mmol/L [facility] Creatinine [Mass/Vol] 0.58 mg/dL 0.50 - 1.20 mg/dL [facility] GFR/1.73 sq M.predicted CKD-EPI (S/P/Bld) [Vol rate/Area] 88 - PINF [facility] Comment on above: Reported eGFR is bas ed on the CKD-EPI 2020 equation using creatinine, age, and sex. Glucose [Mass/Vol] 181 mg/dL High 70 - 99 mg/dL [facility] Interpretation and review of laboratory results Abnormal [facility] Osmolality Calc [Osmolality] 293 [facility] Potassium [Moles/Vol] 4.7 mmol/L 3.5 - 5.0 mmol/L [facility] Sodium [Moles/Vol] 136 mmol/L 135 - 145 mmol/L [facility] Urea nitrogen [Mass/Vol] 16 mg/dL 7 - 25 mg/dL [facility] Urea nitrogen/Creatinine [Mass ratio] 28 mg/mg [facility] CONTINUOUS CARDIAC MONITORIN G STRIPon 04-20-2022 [facility] CONTINUOUS CARDIAC MONITORIN G STRIPOrdered By: Unassigned Pacs on 04-20-2022 [facility] Work Phone: GLUCOSE POCon 04-20-2022 Glucose [Mass/Vol] 207 mg/dL High 70 - 99 mg/dL [facility] Interpretation and review of laboratory results Abnormal [facility] POC Sample Type CAPBL [facility] Test performed at address of the patient encounter. [facility] Glucose [Mass/Vol] 237 mg/dL High 70 - 99 mg/dL [facility] Interpretation and review of laboratory results Abnormal [facility] POC Sample Type CAPBL [facility] Test performed at address of the patient encounter. [facility] Glucose [Mass/Vol] 134 mg/dL High 70 - 99 mg/dL [facility] Interpretation and review of laboratory results Abnormal [facility] POC Sample Type CAPBL [facility] Test performed at address of the patient encounter. [facility] Glucose [Mass/Vol] 220 mg/dL High 70 - 99 mg/dL [facility] Interpretation and review of laboratory results Abnormal [facility] POC Sample Type CAPBL [facility] Test performed at address of the patient encounter. [facility] Glucose [Mass/Vol] 134 mg/dL High 70 - 99 mg/dL [facility] Interpretation and review of laboratory results Abnormal [facility] POC Sample Type CAPBL [facility] Test performed at address of the patient encounter. [facility] HIGH SENSITIVITY TROPONIN I - SINGLE ORDERon 04-20-2022 hs-Troponin I 666 ng/L High <[address] [facility] Comment on above: Order Comment: Acute Coronary Syndrome (ACS): Initial Evaluation and Management: [email or web address]/Guidelines/Acute %20Coronary%20Syndrome.pdf#search=troponin Result Comment: Sugg estive of myocardial injury Performed By: #### L ABHSTI1 #### [facility] (DEFAULT) [address] [place] [address] 11363 hs-Troponin I 547 ng/L High <[address] [facility] Comment on above: Order Comment: Acute Coronary Syndrome (ACS): Initial Evaluation and Management: [email or web address]/Documents/Guidelines/Acute %20Coronary%20Syndrome.pdf#search=troponin Result Comment: Sugg estive of myocardial injury Performed By: #### L ABHSTI1 #### [facility] (DEFAULT) [address] [place] [address] 56846 hs-Troponin I 760 ng/L High <[address] [facility] Comment on above: Order Comment: Acute Coronary Syndrome (ACS): Initial Evaluation and Management:[email or web address]/Documents/Guide lines/Acute%20Coronary%20Syndrome.pdf#search=troponin Result Comment: Sugg estive of myocardial injury Performed By: #### T YPEC #### [facility] (DEFAULT) [address] [place] [address] 38185 hs-Troponin I 638 ng/L High <[address] [facility] Comment on above: Order Comment: Acute Coronary Syndrome (ACS): Initial Evaluation and Management:[email or web address]/Documents/Guide lines/Acute%20Coronary%20Syndrome.pdf#search=troponin Result Comment: Sugg estive of myocardial injury Performed By: #### X M #### [facility] (DEFAULT) [address] [place] [address] HIGH SENSITIVITY TROPONIN I - SINGLE ORDEROrdered By: Christie Arndt on 04-20-2022 Interpretation and review of laboratory results Abnormal [facility] Troponin I.cardiac DL <= 0.01 ng/mL [Mass/Vol] 666 ng/L High NINF - 34 ng/L [facility] Comment on above: Suggestive of myocar dial injury [facility] HIGH SENSITIVITY TROPONIN I - SINGLE ORDEROrdered By: Liliya Andujar on 04-20-2022 Interpretation and review of laboratory results Abnormal [facility] Troponin I.cardiac DL <= 0.01 ng/mL [Mass/Vol] 547 ng/L High NINF - 34 ng/L [facility] Comment on above: Suggestive of myocar dial injury [facility] HIGH SENSITIVITY TROPONIN I - SINGLE ORDEROrdered By: Patricia Trotter on 04-20-2022 Interpretation and review of laboratory results Abnormal [facility] Troponin I.cardiac DL <= 0.01 ng/mL [Mass/Vol] 760 ng/L High NINF - 34 ng/L [facility] Comment on above: Suggestive of myocar dial injury [facility] HIGH SENSITIVITY TROPONIN I - SINGLE ORDEROrdered By: Tamica Alarcon on 04-20-2022 Interpretation and review of laboratory results Abnormal [facility] Troponin I.cardiac DL <= 0.01 ng/mL [Mass/Vol] 638 ng/L High NINF - 34 ng/L [facility] Comment on above: Suggestive of myocar dial injury [facility] MAGNESIUMon 04-20-2022 Magnesium [Mass/Vol] 1.8 mg/dL Normal 1.6-2.[address] [facility] Comment on above: Performed By: #### C HM7 #### [facility] (DEFAULT) [address] [place] [address] Magnesium [Mass/Vol] 1.8 mg/dL 1.6 - 2 .6 mg/dL [facility] No Panel Informationon 04-20 [facility] Interpretation and review of laboratory results Normal [facility] No Panel InformationOrdered By: Dr. Curry on 04-20-2022 Troponin I High Sensitivity 298 pg/mL 3.0-54.0 [facility] Comment on above: Critical Result(s) C alled at: 00:59:39 04/20/2022 by: CLYDE DAVISON to JESSICA MACIEL. Results read back by same. Please Note: New Test Units and Gender Specific Reference Ranges. For more information see Policy Stat Procedure [place] High Sensitivity Troponin (TNIH) and attachments. PLATELET COUNTon 04-20-2022 Platelet mean volume (Bld) [Entitic vol] 10.1 fL Normal 8.5-12.[address] [facility] Comment on above: Performed By: #### L ABHSTI1 #### [facility] (DEFAULT) [address] [address] Platelets (Bld) [#/Vol] 201 10*3/uL Normal 150-[address] [facility] Comment on above: Performed By: #### L ABHSTI1 #### [facility] (DEFAULT) [address] [place] [address] 35009 Interpretation and review of laboratory results Normal [facility] Platelet mean volume (Bld) [Entitic vol] 10.1 fL 8.5 - 12.2 fL [facility] Platelets (Bld) [#/Vol] 201 10*3/uL 150 - 393 K/uL [facility] Absolute lymphocyte countOrd ered By: Dr. Curry on 04-19-2022 Lymphocytes Auto (Unsp spec) [#/Vol] 0.72 10*3/uL 0.83-4.51 [facility] Assessment of wrist artery p atency prior to arterial punctureOrdered By: Dr. Curry on 04-19-2022 Arterial patency Wrist artery --pre arterial puncture Positive [facility] BASIC METABOLIC PANELon 03-31 Anion gap [Moles/Vol] 12 mmol/L Normal 7-17 [facility] Comment on above: Performed By: #### C HM7 #### [facility] (DEFAULT) [address] [place] [address] 95002 Calcium [Mass/Vol] 8.6 mg/dL Normal 8.6-10.5 [facility] Comment on above: Performed By: #### C HM7 #### [facility] (DEFAULT) [address] [place] [address] 72544 Chloride [Moles/Vol] 103 mmol/L Normal 98-[address] [facility] Comment on above: Performed By: #### C HM7 #### [facility] (DEFAULT) [address] [place] [address] 24754 CO2 [Moles/Vol] 24 mmol/L Normal 21-31 [facility] Comment on above: Performed By: #### C HM7 #### [facility] (DEFAULT) [address] [place] [address] 33512 Creatinine [Mass/Vol] 0.55 mg/dL Normal 0.50-1.20 [facility] Comment on above: Performed By: #### C HM7 #### [facility] (DEFAULT) [address] [address] GFR/1.73 sq M.predicted among non-blacks MDRD (S/P/Bld) [Vol rate/Area] 89 mL/min/{1.73_m2} Normal >=[address] [facility] Comment on above: Result Comment: Repo rted eGFR is based on the CKD-EPI 2020 equation using creatinine, age, and sex. Performed By: #### C HM7 #### [facility] (DEFAULT) [address] [place] [address] 45759 Glucose [Mass/Vol] 165 mg/dL High 70-99 [facility] Comment on above: Performed By: #### C HM7 #### [facility] (DEFAULT) [address] [address] Osmolality [Osmolality] 288 mosm/kg Normal 278-[address] [facility] Comment on above: Performed By: #### C HM7 #### [facility] (DEFAULT) [address] [place] [address] Potassium [Moles/Vol] 4.0 mmol/L Normal 3.5-5.0 [facility] Comment on above: Performed By: #### C HM7 #### [facility] (DEFAULT) [address] [place] [address] Sodium [Moles/Vol] 135 mmol/L Normal 135-145 [facility] Comment on above: Performed By: #### C HM7 #### [facility] (DEFAULT) [address] [place] [address] Urea nitrogen [Mass/Vol] 15 mg/dL Normal 7-[address] [facility] Comment on above: Performed By: #### C HM7 #### [facility] (DEFAULT) [address] [place] [address] Urea nitrogen/Creatinine [Mass ratio] 27 mg/mg Normal [facility] Comment on above: Performed By: #### C HM7 #### [facility] (DEFAULT) [address] [place] [address] Base excessOrdered By: Dr. John coronel on 04-19-2022 Base excess Calc (BldV) [Moles/Vol] -2 mmol/L -2-2 [facility] Basophil percentageOrdered B y: Dr. Curry on 04-19-2022 Basophils/100 WBC (Bld) 0.4 % 0-1 [facility] Eosinophils/100 WBC (Bld) 2.4 % 0-5 [facility] Neutrophils (Bld) [#/Vol] 5.3 10*3/uL 2.0-7.7 [facility] Neutrophils/100 WBC (Bld) 78.6 % 47-70 [facility] WBC (Bld) [#/Vol] 6.8 10*3/uL 4.4-11.0 [facility] Basophil percentage 23.3 mmol/L 22-26 [facility] Basophils/100 WBC (Bld) 93 % 95-99 [facility] Chloride [Moles/Vol] 103 mmol/L 98-107 [facility] Glucose [Mass/Vol] 321 mg/dL 74-106 [facility] Comment on above: Glucose result great er than or equal to 200 mg/dLsuggests DIABETES MELLITUS per A.D.A. criteria. Potassium [Moles/Vol] 5.5 mmol/L 3.5-5.1 [facility] Comment on above: Slight Hemolysis, Re sult may be falsely increased. Sodium [Moles/Vol] 134 mmol/L 136-145 [facility] Blood erythrocytes count (nu mber/volume)Ordered By: Dr. Curry on 04-19-2022 RBC (Bld) [#/Vol] 4.32 10*6/uL 4.2-5.4 [facility] Blood hemoglobin measurement (mass/volume)Ordered By: Dr. Curry on 04-19-2022 Hemoglobin (Bld) [Mass/Vol] 12.5 g/dL 12.0-15.0 [facility] Blood lymphocytes/100 leukoc ytesOrdered By: Dr. Curry on 04-19-2022 Lymphocytes/100 WBC (Bld) 10.6 % 19-41 [facility] Blood monocytes/100 leukocyt esOrdered By: Dr. Curry on 04-19-2022 Monocytes/100 WBC (Bld) 7.7 % 0-10 [facility] Blood platelet mean volumeOr dered By: Dr. Curry on 04-19-2022 Platelet mean volume (Bld) [Entitic vol] 9.9 fL 6.2-12.0 [facility] CBC,PLATELETSon 04-19-2022 Hematocrit (Bld) [Volume fraction] 32.0 % Low 34.9-44.[address] [facility] Comment on above: Performed By: #### X M #### [facility] (DEFAULT) [address] [address] Hemoglobin (Bld) [Mass/Vol] 10.5 g/dL Low 11.4-15.[address] [facility] Comment on above: Performed By: #### X M #### [facility] (DEFAULT) [address] [address] MCV (RBC) [Entitic vol] 86.5 fL Normal 79.6-97.[address] [facility] Comment on above: Performed By: #### X M #### [facility] (DEFAULT) [address] [address] Mean Cell Hgb 28.4 pg Normal 25.9-33.[address] [facility] Comment on above: Performed By: #### X M #### [facility] (DEFAULT) [address] [address] Mean Cell Hgb Conc 32.8 g/dL Normal 31.4-35.9 [facility] Comment on above: Performed By: #### X M #### [facility] (DEFAULT) [address] [address] Platelet mean volume (Bld) [Entitic vol] 10.3 fL Normal 8.5-12.[address] [facility] Comment on above: Performed By: #### X M #### [facility] (DEFAULT) [address] [address] Platelets (Bld) [#/Vol] 184 10*3/uL Normal 150-[address] [facility] Comment on above: Performed By: #### X M #### [facility] (DEFAULT) [address] [address] RBC (Bld) [#/Vol] 3.70 10*6/uL Low 3.91-5.[address] [facility] Comment on above: Performed By: #### X M #### [facility] (DEFAULT) [address] [address] RBC Distribution 13.5 % Normal 10.8-14.9 [facility] Comment on above: Performed By: #### X M #### [facility] (DEFAULT) [address] [address] WBC (Bld) [#/Vol] 5.56 10*3/uL Normal 3.99-11.[address] [facility] Comment on above: Performed By: #### X M #### [facility] ([facility]) [address] [place] [address] CO2 (BldA) [Partial pressure ]Ordered By: Dr. Curry on 04-19-2022 CO2 (Bld) [Partial pressure] 41.2 mm[Hg] 35-45 [facility] COVID-19 virus antigen assay Ordered By: Dr. Curry on 04-19-2022 SARS-CoV-2 (COVID-19) Ag IA.rapid Ql (Resp) [facility] Determination of erythrocyte mean corpuscular volume (MCV)Ordered By: Dr. Curry on 04-19-2022 MCV (RBC) [Entitic vol] 87.7 fL 81-99 [facility] Hematocrit Auto (Bld) [Volum e fraction]Ordered By: Dr. Curry on 04-19-2022 Hematocrit (Bld) [Volume fraction] 37.9 % 37-47 [facility] INR in Blood by Coagulation assayOrdered By: Dr. Curry on 04-19-2022 INR Coag (Bld) [Relative time] 1.0 {INR} [facility] Laboratory - Chemistry and C hemistry - challengeOrdered By: Dr. Curry on 04-19-2022 Natriuretic peptide B (Bld) [Mass/Vol] 351.1 pg/mL 0-100 [facility] CO2 [Moles/Vol] 25.0 mmol/L 21.0-32.0 [facility] Urea nitrogen/Creatinine [Mass ratio] 21.2 mg/mg 10-20 [facility] Laboratory - CoagulationOrde red By: Dr. Curry on 04-19-2022 aPTT Coag (Bld) [Time] 28.9 s 24.1-36.2 [facility] PT Coag (PPP) [Time] 13.2 s 11.7-14.9 [facility] Laboratory - Hematology and Cell countsOrdered By: Dr. Curry on 04-19-2022 Erythrocyte distribution width (RBC) [Entitic vol] 42.7 fL 35.1-43.9 [facility] Erythrocyte distribution width (RBC) [Ratio] 13.2 % 11.6-14.6 [facility] Immature granulocytes/100 WBC (Bld) 0.300 % 0.0-0.9 [facility] Comment on above: IG% - Immature Granu locytes (promyelocytes, myelocytes and metamyelocytes) > 1% indicates that a LEFT SHIFT is Present. MCH (RBC) [Entitic mass] 28.9 pg 27.0-32.0 [facility] Nucleated RBC/100 WBC (Bld) [Ratio] 0 % 0-5 [facility] MCHC Auto (RBC) [Mass/Vol]Or dered By: Dr. Curry on 04-19-2022 MCHC (RBC) [Mass/Vol] 33.0 g/dL 32-36 [facility] No Panel InformationOrdered By: Dr. Curry on 04-19-2022 Blood Gas Clinical Comments 18. 8. [facility] Blood Gas Oxygen Percent 40 [facility] Blood Gas Respiration Rate 12 [facility] Blood Gas Sample Site R Radial [facility] Blood Gas Specimen Type ART [facility] Blood Gas Total CO2 25 mmol/L [facility] Oxygen Delivery Device BiPAP [facility] Estimated Creatinine Clearance Calc 41.23 ml/min [facility] Estimated GFR (MDRD) Amer 93 mL/min >60 [facility] Comment on above: GFR Calc Estimated GFR (MDRD) Non-Af Amer 77 mL/min >60 [facility] Comment on above: Non- GFR Calc Oxygen (BldA) [Partial press ure]Ordered By: Dr. Curry on 04-19-2022 Oxygen (Bld) [Partial pressure] 71 mmHG 75-100 [facility] Platelets bldOrdered By: Dr. Curry on 04-19-2022 Platelets (Bld) [#/Vol] 203 10*3/uL 150-450 [facility] Serum or plasma calcium neris urement (mass/volume)Ordered By: Dr. Curry on 04-19-2022 Calcium [Mass/Vol] 9.0 mg/dL 8.5-10.1 [facility] Serum or plasma creatinine m easurement (mass/volume)Ordered By: Dr. Curry on 04-19-2022 Creatinine [Mass/Vol] 0.76 mg/dL 0.55-1.02 [facility] Comment on above: The validity of the calculated GFR & GFRAA in patients over 70 years has not been determined. Clinical correlation is essential. Serum or plasma urea nitroge n measurement (mass/volume)Ordered By: Dr. Curry on 04-19-2022 Urea nitrogen [Mass/Vol] 16 mg/dL 7-18 [facility] Thin prep Papanicolaou smear with manual screeningOrdered By: Dr. Curry on 04-19-2022 Thin prep Papanicolaou smear with manual screening 6 5-15 [facility] pH measurementOrdered By: Dr Shekhar Curry on 04-19-2022 pH (Unsp spec) 7.36 [pH] 7.35-7.45 [facility] CBC,PLATELETSon 04-18-2022 Hematocrit (Bld) [Volume fraction] 32.8 % Low 34.9-44.[address] [facility] Comment on above: Performed By: #### H EMO ####[facility] (DEFAULT)[address] [place] [address], [place] [address] Hemoglobin (Bld) [Mass/Vol] 11.1 g/dL Low 11.4-15.[address] [facility] Comment on above: Performed By: #### H EMO ####[facility] (DEFAULT)[address] [place] [address] MCV (RBC) [Entitic vol] 85.6 fL Normal 79.6-97.[address] [facility] Comment on above: Performed By: #### H EMO ####[facility] (DEFAULT)[address] [place] [address] Mean Cell Hgb 29.0 pg Normal 25.9-33.[address] [facility] Comment on above: Performed By: #### H EMO ####[facility] (DEFAULT)[address] [place] [address] Mean Cell Hgb Conc 33.8 g/dL Normal 31.4-35.9 [facility] Comment on above: Performed By: #### H EMO ####[facility] (DEFAULT)[address] [place] [address] Platelet mean volume (Bld) [Entitic vol] 9.6 fL Normal 8.5-12.[address] [facility] Comment on above: Performed By: #### H EMO ####[facility] (DEFAULT)[address] [facility] [place] [place] [address] Platelets (Bld) [#/Vol] 192 10*3/uL Normal 150-[address] [facility] Comment on above: Performed By: #### H EMO ####[facility] (DEFAULT)[address] [place] [address] RBC (Bld) [#/Vol] 3.83 10*6/uL Low 3.91-5.[address] [facility] Comment on above: Performed By: #### H EMO ####[facility] (DEFAULT)[address] [facility] [place] [address] RBC Distribution 13.4 % Normal 10.8-14.9 [facility] Comment on above: Performed By: #### H EMO ####[facility] (DEFAULT)[address] [place] [address] WBC (Bld) [#/Vol] 7.42 10*3/uL Normal 3.99-11.[address] [facility] Comment on above: Performed By: #### H EMOGC ####[facility] (DEFAULT)[address] [place] [id number] CHEM 7 (LYTES,BUN,CREA,GLUC) on 04-18-2022 Anion gap [Moles/Vol] 12 mmol/L Normal 7-17 Pri [facility] Comment on above: Performed By: #### C HM7, MGO ####[facility] (DEFAULT)[address] [place] [address] Chloride [Moles/Vol] 106 mmol/L Normal 98-[address] [facility] Comment on above: Performed By: #### C HM7, MGO ####[facility] (DEFAULT)[address] [place] [address] CO2 [Moles/Vol] 24 mmol/L Normal 21-31 [facility] Comment on above: Performed By: #### Nancy MAO7, MGO ####[facility] (DEFAULT)[address] [facility] [place] [address] Creatinine [Mass/Vol] 0.57 mg/dL Normal 0.50-1.20 [facility] Comment on above: Performed By: #### Nancy MAO7, MGO ####[facility] (DEFAULT)[address] [place] [address], [place] [address] GFR/1.73 sq M.predicted among non-blacks MDRD (S/P/Bld) [Vol rate/Area] 88 mL/min/{1.73_m2} Normal >=[address] [facility] Comment on above: Result Comment: Repo rted eGFR is based on the CKD-EPI 2020 equation using creatinine, age, and sex. Performed By: #### Nancy WOOD, MGO ####[facility] (DEFAULT)[address] [place] [address] Glucose [Mass/Vol] 136 mg/dL High 70-99 [facility] Comment on above: Performed By: #### Nancy MAO7, MGO ####[facility] (DEFAULT)[address] [place] [address] Osmolality [Osmolality] 294 mosm/kg Normal 278-[address] [facility] Comment on above: Performed By: #### Nancy HM7, MGO ####[facility] (DEFAULT)[address] [place] [address] Potassium [Moles/Vol] 4.4 mmol/L Normal 3.5-5.0 [facility] Comment on above: Performed By: #### Nancy HM7, MGO ####[facility] (DEFAULT)[address] [facility] [place] [address] Sodium [Moles/Vol] 138 mmol/L Normal 135-145 [facility] Comment on above: Performed By: #### C HM7, MGO ####[facility] (DEFAULT)[address] [place] [address] Urea nitrogen [Mass/Vol] 17 mg/dL Normal - [facility] Comment on above: Performed By: #### C HM7, MGO ####[facility] (DEFAULT)[address] [place] [address] Urea nitrogen/Creatinine [Mass ratio] 30 mg/mg Normal [facility] Comment on above: Performed By: #### C HM7, MGO ####[facility] (DEFAULT)[address] [place] [address] CT ANGIO TAVR EVALUATION - C ARDIOLOGYon 04-18-2022 CT ANGIO TAVR EVALUATION - CARDIOLOGY [facility] CT Report Name: FINESSE PRATHER : 1935 Scan Date: 2022-04-18 14:00:37 Electronically signed by Leopoldo Montalvo 15:58:49 VITALS HEIGHT: 59.02 in (149.90 cm) WEIGHT: 134.70 lbs (61.10 kgs) BSA: 1.56 m^2 BMI: 27 kg/m^2 BP: 118 / 57 mmHg BASELINE HR: 63 BPM FINAL 1.Aortic valve is trileaflet, demonstrating calcification and severe stenosis (LIDIA 0.73 cm2). Moderate valvular calcification with moderate retrograde extension of calcification into the LVOT particularly at the aortomitral curtain. 2.Coronary artery disease is extensive, noting the patient has recently undergone an invasive coronary angiogram/PCI. 3.Left ventricular hypertrophy with normal LV systolic function (LVEF 65%). 4.Mitral valve has severe posterior calcification and moderately restricted leaflet motion. Mitral valve area in diastole (80%R-R) is 2.2 cm2. 5.Small bilateral pleural effusions with adjacent segmental atelectasis as well as interlobular septal thickening seen. See separate radiology report for other non-cardiac and vascular findings. CARDIAC CT ? TRANSCATHETER AORTIC VALVE ASSSESSMENT CLINICAL INDICATION: 87 year old (BSA 1.52 m2) with aortic valve stenosis, undergoing evaluation for anticipated transcatheter aortic valve replacement (TAVR), with comorbid conditions including CAD, PAD, carotid artery disease with prior CEAs, HTN, T2DM. COMPARISON: No prior studies available for comparison. TECHNIQUE: The imaging was performed using a dual-source 128-slice MDCT system. It included an ECG-gated spiral acquisition from the upper ascending aorta to the cardiac undersurface for 4D assessment of the aortic valve, as well as for anatomic and functional assessment of the heart; the examination was not designed to optimize coronary artery visualization. This was followed by a non-gated spiral acquisition extending from the shoulders to the upper thighs to assess the entire thoracic aorta and abdominal aorta, as well as the extremity branches for vascular access. CONTRAST: Iohexol (OMNIPAQUE) 350 MG/ML injection was used intravenously to perform both the cardiac CT and the CTA CAP. Please see radiology report for the contrast dose given. FINDINGS: Left Ventricle (Anatomy): Moderate-severe left ventricular hypertrophy with LV mass 169 g (111 g/m2). Left Ventricle (Function): Normal LV systolic function. LVEF is 65% by automated volumetric analysis, which excludes the papillary muscle and trabeculation from the cardiac volumes. Normal regional wall motion. Right ventricle: Grossly, normal size and systolic function by visual assessment. Left atrium: Mildly dilated LA without apparent filling defect or thrombus. Left atrial appendage: No evidence of thrombus. Right atrium: Visually normal size. Interatrial septum: Normal, without evident ASD or large PFO. Coronary artery calcification: Severe as assessed by visual evaluation. Coronary arteries: Diffuse atherosclerosis with calcium-related blooming artifact precluding accurate assessment for stenosis severity. Correlate with invasive coronary angiographic findings, as clinically indicated. -LMCA: Mixed plaque, <25% stenosis. -LAD: Severe calcification and stent in proximal-mid segments precludes stenosis assessment. May have a severe stenosis distal to stent. -LCX: Moderate, diffuse disease in proximal-mid segments, distal aspect not well seen. -RCA: Severe calcification at ostial segment precludes stenosis assessment. Coronary artery bypass grafts:None. Pericardium: Normal, without thickening, effusion or calcification. Other Valves: Severe mitral annular calcification posteriorly.Moderately restricted MV leaflet motion. MV area in diastole at 80% of RR interval is 2.2 cm2. Pulmonary Arteries: Normal caliber of main pulmonary artery (25 mm measured 25 mm from PV). Aortic Valve Morphology: Trileaflet Calcification: Moderate valvular calcification with moderate retrograde extension of calcification into the LVOT at the aortomitral curtain. Leaflet Excursion: Severely impaired systolic leaflet excursion. AV Area by planimetry is 0.73 cm2 (acquired at 20% R-R). Aortic Valve Annulus (mid-systole 20% R-R): 25 x 21 mm Perimeter ? 74 mm Area ? 4.21 cm2 Aortic Valve Annulus (end-systole 40% R-R): 24 x 21 mm Perimeter ? 70 mm Area ? 3.73 cm2 Avg. Diameter ? (more content not included)... Normal [facility] MAGNESIUMon 04-18-2022 Magnesium [Mass/Vol] 1.9 mg/dL Normal 1.6-2.[address] [facility] Comment on above: Performed By: #### C HM7, MGO ####[facility] (DEFAULT)[address] [address] B-TYPE NATRIURETIC PEPTIDE ( BRAIN)on 04-17-2022 Natriuretic peptide B (Bld) [Mass/Vol] 553 pg/mL High 0-[address] [facility] Comment on above: Performed By: #### C HM7 #### [facility] (DEFAULT) [address] [place] [address] CALCIUMon 04-17-2022 Calcium [Mass/Vol] 8.9 mg/dL Normal 8.6-10.5 [facility] Comment on above: Performed By: #### C HM6 #### [facility] (DEFAULT) [address] [place] [address] CBC,PLATELETSon 04-17-2022 Hematocrit (Bld) [Volume fraction] 34.8 % Low 34.9-44.[address] [facility] Comment on above: Performed By: #### C HM6 #### [facility] (DEFAULT) [address] [place] [address] Hemoglobin (Bld) [Mass/Vol] 11.7 g/dL Normal 11.4-15.[address] [facility] Comment on above: Performed By: #### C HM6 #### [facility] (DEFAULT) [address] [address] MCV (RBC) [Entitic vol] 87.2 fL Normal 79.6-97.[address] [facility] Comment on above: Performed By: #### C HM6 #### [facility] (DEFAULT) [address] [address] Mean Cell Hgb 29.3 pg Normal 25.9-33.[address] [facility] Comment on above: Performed By: #### C HM6 #### [facility] (DEFAULT) [address] [address] Mean Cell Hgb Conc 33.6 g/dL Normal 31.4-35.9 [facility] Comment on above: Performed By: #### C HM6 #### [facility] (DEFAULT) [address] [address] Platelet mean volume (Bld) [Entitic vol] 10.0 fL Normal 8.5-12.[address] [facility] Comment on above: Performed By: #### C HM6 #### [facility] (DEFAULT) [address] [address] Platelets (Bld) [#/Vol] 229 10*3/uL Normal 150-[address] [facility] Comment on above: Performed By: #### C HM6 #### [facility] (DEFAULT) [address] [address] RBC (Bld) [#/Vol] 3.99 10*6/uL Normal 3.91-5.[address] [facility] Comment on above: Performed By: #### C HM6 #### [facility] (DEFAULT) [address] [address] RBC Distribution 13.4 % Normal 10.8-14.9 [facility] Comment on above: Performed By: #### C HM6 #### [facility] (DEFAULT) [address] [place] [address] WBC (Bld) [#/Vol] 8.38 10*3/uL Normal 3.99-11.[address] [facility] Comment on above: Performed By: #### C HM6 #### [facility] (DEFAULT) [address] [place] [address] CHEM 7 (LYTES,BUN,CREA,GLUC) on 04-17-2022 Anion gap [Moles/Vol] 14 mmol/L Normal 7-17 [facility] Comment on above: Performed By: #### T YPEC #### [facility] (DEFAULT) [address] [place] [address] Chloride [Moles/Vol] 105 mmol/L Normal 98-[address] [facility] Comment on above: Performed By: #### T YPEC #### [facility] (DEFAULT) [address] [place] [address] CO2 [Moles/Vol] 24 mmol/L Normal 21-31 [facility] Comment on above: Performed By: #### T YPEC #### [facility] (DEFAULT) [address] [address] Creatinine [Mass/Vol] 0.52 mg/dL Normal 0.50-1.20 [facility] Comment on above: Performed By: #### T YPEC #### [facility] (DEFAULT) [address] [address] GFR/1.73 sq M.predicted among non-blacks MDRD (S/P/Bld) [Vol rate/Area] 90 mL/min/{1.73_m2} Normal >=[address] [facility] Comment on above: Result Comment: Repo rted eGFR is based on the CKD-EPI 2020 equation using creatinine, age, and sex. Performed By: #### T YPEC #### [facility] (DEFAULT) [address] [place] [address] Glucose [Mass/Vol] 91 mg/dL Normal 70-99 [facility] Comment on above: Performed By: #### T YPEC #### [facility] (DEFAULT) [address] [place] [address] Osmolality [Osmolality] 292 mosm/kg Normal 278-[address] [facility] Comment on above: Performed By: #### T YPEC #### [facility] (DEFAULT) [address] [place] [address] Potassium [Moles/Vol] 4.0 mmol/L Normal 3.5-5.0 [facility] Comment on above: Performed By: #### T YPEC #### [facility] (DEFAULT) [address] [place] [address] Sodium [Moles/Vol] 139 mmol/L Normal 135-145 [facility] Comment on above: Performed By: #### T YPEC #### [facility] (DEFAULT) [address] [place] [address] Urea nitrogen [Mass/Vol] 16 mg/dL Normal 7-[address] [facility] Comment on above: Performed By: #### T YPEC #### [facility] (DEFAULT) [address] [address] Urea nitrogen/Creatinine [Mass ratio] 31 mg/mg Normal [facility] Comment on above: Performed By: #### T YPEC #### [facility] (DEFAULT) [address] [place] [address] HEPATIC FUNCTION PANELon Albumin [Mass/Vol] 3.6 g/dL Normal 3.5-5.0 [facility] Comment on above: Performed By: #### T YPEC #### [facility] (DEFAULT) [address] [address] ALP [Catalytic activity/Vol] 93 U/L Normal 32-[address] [facility] Comment on above: Performed By: #### T YPEC #### [facility] (DEFAULT) [address] [place] [address] ALT [Catalytic activity/Vol] 55 U/L High 9-[address] [facility] Comment on above: Performed By: #### T YPEC #### [facility] (DEFAULT) [address] [place] [address] AST [Catalytic activity/Vol] 42 U/L High 10-[address] [facility] Comment on above: Performed By: #### T YPEC #### [facility] (DEFAULT) [address] [address] Bilirubin [Mass/Vol] 1.0 mg/dL Normal <1.[address] [facility] Comment on above: Performed By: #### T YPEC #### [facility] (DEFAULT) [address] [address] Bilirubin.indirect [Mass/Vol] 0.1 mg/dL Normal <0.[address] [facility] Comment on above: Performed By: #### T YPEC #### [facility] (DEFAULT) [address] [address] Protein [Mass/Vol] 6.0 g/dL Low 6.4-8.3 [facility] Comment on above: Performed By: #### T YPEC #### [facility] (DEFAULT) [address] [address] LIPID PANEL W CALCULATED LDL on 04-17-2022 Calculated LDL Cholesterol 172 mg/dL High 0-[address] [facility] Comment on above: Result Comment: [<10 0 mg/dL: Optimal] [100-129 mg/dL: Near Optimal] [130-159 mg/dL: Borderline High] [160-189 mg/dL: High] [>189 mg/dL: Very High] Performed By: #### T YPEC #### [facility] (DEFAULT) [address] [address] Cholesterol [Mass/Vol] 242 mg/dL High <[address] [facility] Comment on above: Result Comment: [<20 0 mg/dL: Desirable] [200-239 mg/dL: Borderline High] [>239 mg/dL: High] Performed By: #### T YPEC #### [facility] (DEFAULT) [address] [place] [address] Cholesterol in HDL [Mass/Vol] 48 mg/dL Normal >=[address] [facility] Comment on above: Result Comment: [<40 mg/dL: Low (High Risk)] [>59 mg/dL: High (Low Risk)] Performed By: #### T YPEC #### [facility] (DEFAULT) [address] [place] [address] Non HDL Cholesterol 194 mg/dL High <[address] [facility] Comment on above: Performed By: #### T YPEC #### [facility] (DEFAULT) [address] [address] Total Cholesterol/HDL Ratio 5.0 High <4.[address] [facility] Comment on above: Performed By: #### T YPEC #### [facility] (DEFAULT) [address] [place] [address] Triglyceride [Mass/Vol] 112 mg/dL Normal <[address] [facility] Comment on above: Result Comment: [<15 0 mg/dL: Desirable] [150-199 mg/dL: Borderline] [200-499 mg/dL: High] [>500 mg/dL: Very High] Performed By: #### T YPEC #### [facility] (DEFAULT) [address] [address] MAGNESIUMon 04-17-2022 Magnesium [Mass/Vol] 1.8 mg/dL Normal 1.6-2.[address] [facility] Comment on above: Performed By: #### T YPEC #### [facility] (DEFAULT) [address] [address] XR CHEST PORTABLEon 04-17-19 XR CHEST PORTABLE EXAM: XR CHEST PORTABLE, 04/17/2022 13:01 PM COMPARISON: No prior studies available for comparison. CLINICAL INDICATIONS: Concern for flash pulm edema at outside hospital RELEVANT CLINICAL HISTORY: FINDINGS: (Adequate technique) Implanted Devices: None Thorax: Interstitial changes within the lungs. Small bilateral pleural effusions. No pneumothorax. Cardiomegaly is noted. Atheromatous calcific lesions at the aortic arch. Osseous structures are grossly intact. Degeneration at thoracic spine. IMPRESSION: Small bilateral pleural effusions and mild interstitial pulmonary edema. Cardiomegaly. Normal [facility] Absolute lymphocyte countOrd ered By: Dr. Boland on 04-16-2022 Lymphocytes Auto (Unsp spec) [#/Vol] 2.82 10*3/uL 0.83-4.51 [facility] Basophil percentageOrdered B y: Dr. Boland on 04-16-2022 Basophils/100 WBC (Bld) 0.6 % 0-1 [facility] Chloride [Moles/Vol] 106 mmol/L 98-107 [facility] Eosinophils/100 WBC (Bld) 3.7 % 0-5 [facility] Glucose [Mass/Vol] 279 mg/dL 74-106 [facility] Comment on above: Glucose result great er than or equal to 200 mg/dLsuggests DIABETES MELLITUS per A.D.A. criteria. Neutrophils (Bld) [#/Vol] 8.1 10*3/uL 2.0-7.7 [facility] Neutrophils/100 WBC (Bld) 65.8 % 47-70 [facility] Potassium [Moles/Vol] 4.3 mmol/L 3.5-5.1 [facility] Comment on above: Slight Hemolysis, Re sult may be falsely increased. Sodium [Moles/Vol] 137 mmol/L 136-145 [facility] WBC (Bld) [#/Vol] 12.3 10*3/uL 4.4-11.0 [facility] Blood erythrocytes count (nu mber/volume)Ordered By: Dr. Boland on 04-16-2022 RBC (Bld) [#/Vol] 4.33 10*6/uL 4.2-5.4 [facility] Blood hemoglobin measurement (mass/volume)Ordered By: Dr. Boland on 04-16-2022 Hemoglobin (Bld) [Mass/Vol] 12.5 g/dL 12.0-15.0 [facility] Blood lymphocytes/100 leukoc ytesOrdered By: Dr. Boland on 04-16-2022 Lymphocytes/100 WBC (Bld) 23.0 % 19-41 [facility] Blood monocytes/100 leukocyt esOrdered By: Dr. Boland on 04-16-2022 Monocytes/100 WBC (Bld) 6.2 % 0-10 [facility] Blood platelet mean volumeOr dered By: Dr. Boland on 04-16-2022 Platelet mean volume (Bld) [Entitic vol] 9.9 fL 6.2-12.0 [facility] Determination of erythrocyte mean corpuscular volume (MCV)Ordered By: Dr. Boland on 04-16-2022 MCV (RBC) [Entitic vol] 88.9 fL 81-99 [facility] Hematocrit Auto (Bld) [Volum e fraction]Ordered By: Dr. Boland on 04-16-2022 Hematocrit (Bld) [Volume fraction] 38.5 % 37-47 [facility] Influenza virus A and B and SARS-CoV-2 (COVID-19) Ag panel - Upper respiratory specimOrdered By: Dr. Boland on 04-16-2022 SARS-CoV-2 (COVID-19) RNA NICHOLAS+probe Ql (Resp) [facility] Laboratory - Chemistry and C hemistry - challengeOrdered By: Dr. Boland on 04-16-2022 CO2 [Moles/Vol] 24.0 mmol/L 21.0-32.0 [facility] Natriuretic peptide B (Bld) [Mass/Vol] 616.1 pg/mL 0-100 [facility] Urea nitrogen/Creatinine [Mass ratio] 30.3 mg/mg 10-20 [facility] Laboratory - Hematology and Cell countsOrdered By: Dr. Boland on 04-16-2022 Erythrocyte distribution width (RBC) [Entitic vol] 44.0 fL 35.1-43.9 [facility] Erythrocyte distribution width (RBC) [Ratio] 13.4 % 11.6-14.6 [facility] Immature granulocytes/100 WBC (Bld) 0.700 % 0.0-0.9 [facility] Comment on above: IG% - Immature Granu locytes (promyelocytes, myelocytes and metamyelocytes) > 1% indicates that a LEFT SHIFT is Present. MCH (RBC) [Entitic mass] 28.9 pg 27.0-32.0 [facility] Nucleated RBC/100 WBC (Bld) [Ratio] 0 % 0-5 [facility] MCHC Auto (RBC) [Mass/Vol]Or dered By: Dr. Boland on 04-16-2022 MCHC (RBC) [Mass/Vol] 32.5 g/dL 32-36 [facility] No Panel InformationOrdered By: Dr. Boland on 04-16-2022 Estimated Creatinine Clearance Calc 28.47 ml/min [facility] Estimated GFR (MDRD) Amer 109 mL/min >60 [facility] Comment on above: GFR Calc Estimated GFR (MDRD) Non-Af Amer 90 mL/min >60 [facility] Comment on above: Non- GFR Calc Troponin I High Sensitivity 33 pg/mL 3.0-54.0 [facility] Comment on above: Please Note: New Avril t Units and Gender Specific Reference Ranges. For more information see Policy Stat Procedure [place] High Sensitivity Troponin (TNIH) and attachments. Platelets bldOrdered By: Dr. Boland on 04-16-2022 Platelets (Bld) [#/Vol] 305 10*3/uL 150-450 [facility] Serum or plasma calcium neris urement (mass/volume)Ordered By: Dr. Boland on 04-16-2022 Calcium [Mass/Vol] 8.6 mg/dL 8.5-10.1 [facility] Serum or plasma creatinine m easurement (mass/volume)Ordered By: Dr. Boland on 04-16-2022 Creatinine [Mass/Vol] 0.66 mg/dL 0.55-1.02 [facility] Comment on above: The validity of the calculated GFR & GFRAA in patients over 70 years has not been determined. Clinical correlation is essential. Serum or plasma urea nitroge n measurement (mass/volume)Ordered By: Dr. Boland on 04-16-2022 Urea nitrogen [Mass/Vol] 20 mg/dL - [facility] Thin prep Papanicolaou smear with manual screeningOrdered By: Dr. Boland on 04-16-2022 Thin prep Papanicolaou smear with manual screening 7 5-15 [facility] INVASIVE CARDIOVASCULAR PROC [place]on 04-07-2022 INVASIVE CARDIOVASCULAR PROCEDURE Impression Successful HIRAL placement to the mid RCA (3.0x28mm) Recommendations: Continue aggressive risk factor modification and medical management for CAD. Further recommendations per primary team -- Access: Right radial artery access attempted but unable to thread wire past the forearm. Sheath not placed, pressure dressing applied. Left femoral artery, ultrasound guided, perclose. Coronary angiography: The left coronary artery was not injected. The right coronary artery has diffuse moderate disease including the ostium which is not felt to be flow limiting but likely worsened by streaming from poor guide catheter engagement. There is a patent previously placed prox/mid vessel stent with mild ISR. Just distal to this at the bend is an obstructive lesion (80%) noted on prior angiography. Right dominant coronary arterial circulation. Percutaneous coronary intervention: The RCA was engaged with a 6Fr AR1 guide and a prowater wire was advanced into the distal PL branch. We predilated the mid vessel lesion with a 2.35f55ys compliant balloon, then stented with a 3.0x28mm HIRAL with good results. Table formatting from the original result was not included. Images from the original result were not included. Finesse Ramirez Natalia Invasive Cardiology Cath Procedure Ordering Physician: [facility] Order #: [id number] Study Date: 04/04/2022 Patient Information Name MRN Description Fniesse Prather [id number] 87 y.o. female Location Name Address [facility] [address] [place] [id number] Physicians Panel Physicians Referring Physician Case Authorizing Physician Criselda Bacon MD (Primary) Farouk Belal, MD Jacobo Lopez MD (Fellow) Tito Holguin MD (Fellow) CC Referring Recipient Method Contact Information [facility] MD In Basket ? Murphy Burton MD Fax ? Yuli Lucas MD Mail ? Procedures ULTRASOUND GUIDED ACCESS STENT-CORONARY Indications Coronary artery disease involving yocha dehe coronary artery of yocha dehe heart with unstable angina pectoris [I25.110 (ICD-10-CM)] NSTEMI (non-ST elevated myocardial infarction) [I21.4 (ICD-10-CM)] Conclusion Impression Successful HIRAL placement to the mid RCA (3.0x28mm) Recommendations: Continue aggressive risk factor modification and medical management for CAD. Further recommendations per primary team -- Access: Right radial artery access attempted but unable to thread wire past the forearm. Sheath not placed, pressure dressing applied. Left femoral artery, ultrasound guided, perclose. Coronary angiography: The left coronary artery was not injected. The right coronary artery has diffuse moderate disease including the ostium which is not felt to be flow limiting but likely worsened by streaming from poor guide catheter engagement. There is a patent previously placed prox/mid vessel stent with mild ISR. Just distal to this at the bend is an obstructive lesion (80%) noted on prior angiography. Right dominant coronary arterial circulation. Percutaneous coronary intervention: The RCA was engaged with a 6Fr AR1 guide and a Picmonicwater wire was advanced into the distal PL branch. We predilated the mid vessel lesion with a [id number] compliant balloon, then stented with a 3.0x28mm HIRAL with good results. Medical History Diagnosis Date Comment Source Aortic stenosis CAD (coronary artery disease) Carotid stenosis Diabetes mellitus type 2, noninsulin dependent On metformin Heart failure HLD (hyperlipidemia) PAD (peripheral artery disease) Presence of stent in coronary artery TIA (transient ischemic attack) Procedure The risks and alternatives of the procedure and sedation were explained. Informed consent was obtained and Suspension of DNR consent signed. The patient was brought to the tree tapping laborer and placed on the table. The planned puncture sites were prepped and draped in the usual sterile fashion. Coronary Findings Diagnostic Dominance: Right Right Coronary Artery There is moderate diffuse disease throughout the vessel. Mid RCA lesion is 80% stenosed. The lesion is not complex (non high-C). Intervention Mid RCA lesion PCI The pre-interventional distal flow is normal (CAITLIN 3). - A CATH GUIDE 6FR AR1 [id number] interventional guide catheter was used to successfully engage the vessel. - A GUIDEWIRE PROWATER .014IN 180CM STRAIGHT VASCULAR SLIP-COAT was used to cross the lesion Angioplasty - BALLOON DILATATION TREK SLIM SEAL 2.75MM 15MM RAPID EXCHANGE. Maximum pressure: 10 bola. Inflation time: 30 sec. Stent placement - CORONARY STENT 28MM 3MM XIENCE SKYPOINT MULTI-LINK 145CM drug-eluting. Maximum pressure 11 bola (more content not included)... Normal [facility] CBC,PLATELETSon 04-05-2022 Hematocrit (Bld) [Volume fraction] 33.2 % Low 34.9-44.[address] [facility] Comment on above: Performed By: #### L [email or web address] #### [facility] (DEFAULT) [address] [address] Hemoglobin (Bld) [Mass/Vol] 11.2 g/dL Low 11.4-15.[address] [facility] Comment on above: Performed By: #### L ABHSTI1 #### [facility] (DEFAULT) [address] [address] MCV (RBC) [Entitic vol] 83.6 fL Normal 79.6-97.[address] [facility] Comment on above: Performed By: #### L ABHSTI1 #### [facility] (DEFAULT) [address] [address] Mean Cell Hgb 28.2 pg Normal 25.9-33.[address] [facility] Comment on above: Performed By: #### L ABHSTI1 #### [facility] (DEFAULT) [address] [place] [address] Mean Cell Hgb Conc 33.7 g/dL Normal 31.4-35.9 [facility] Comment on above: Performed By: #### L ABHSTI1 #### [facility] (DEFAULT) [address] [place] [address] Platelet mean volume (Bld) [Entitic vol] 9.9 fL Normal 8.5-12.[address] [facility] Comment on above: Performed By: #### L ABHSTI1 #### [facility] (DEFAULT) [address] [place] [address] Platelets (Bld) [#/Vol] 232 10*3/uL Normal 150-[address] [facility] Comment on above: Performed By: #### L [email or web address] #### [facility] (DEFAULT) [address] [place] [address]42 RBC (Bld) [#/Vol] 3.97 10*6/uL Normal 3.91-5.[address] [facility] Comment on above: Performed By: #### L [email or web address] #### [facility] (DEFAULT) [address] [place] [address] RBC Distribution 12.8 % Normal 10.8-14.9 [facility] Comment on above: Performed By: #### L ABHSTI1 #### [facility] (DEFAULT) [address] [place] [address]351 WBC (Bld) [#/Vol] 7.42 10*3/uL Normal 3.99-11.[address] [facility] Comment on above: Performed By: #### L [email or web address] #### [facility] (DEFAULT) [address] [place] [address] Erythrocyte distribution width (RBC) [Ratio] 12.8 % 10.8 - 14.9 % [facility] Hematocrit (Bld) [Volume fraction] 33.2 % Low 34.9 - 44.3 % [facility] Hemoglobin (Bld) [Mass/Vol] 11.2 g/dL Low 11.4 - 15.2 g/dL [facility] Interpretation and review of laboratory results Abnormal [facility] MCH (RBC) [Entitic mass] 28.2 pg 25.9 - 33.9 pg [facility] MCHC (RBC) [Mass/Vol] 33.7 g/dL 31.4 - 35.9 g/dL [facility] MCV (RBC) [Entitic vol] 83.6 fL 79.6 - 97.7 fL [facility] Platelet mean volume (Bld) [Entitic vol] 9.9 fL 8.5 - 12.2 fL [facility] Platelets (Bld) [#/Vol] 232 10*3/uL 150 - 393 K/uL [facility] RBC (Bld) [#/Vol] 3.97 10*6/uL [facility] WBC (Bld) [#/Vol] 7.42 10*3/uL 3.99 - 11. 19 K/uL [facility] CHEM 6 (LYTES, BUN CREA)on 0 - Anion gap [Moles/Vol] 12 mmol/L Normal 7-17 [facility] Comment on above: Performed By: #### X M #### [facility] (DEFAULT) [address] [place] [address] 13842 Chloride [Moles/Vol] 104 mmol/L Normal 98-[address] [facility] Comment on above: Performed By: #### X M #### [facility] (DEFAULT) [address] [place] [address]239 CO2 [Moles/Vol] 22 mmol/L Normal 21-31 [facility] Comment on above: Performed By: #### X M #### [facility] (DEFAULT) [address] [place] [address]286 Creatinine [Mass/Vol] 0.57 mg/dL Normal 0.50-1.20 [facility] Comment on above: Performed By: #### X M #### [facility] (DEFAULT) [address] [place] [address]259 GFR/1.73 sq M.predicted among non-blacks MDRD (S/P/Bld) [Vol rate/Area] 88 mL/min/{1.73_m2} Normal >=[address] [facility] Comment on above: Result Comment: Repo rted eGFR is based on the CKD-EPI 2020 equation using creatinine, age, and sex. Performed By: #### X M #### [facility] (DEFAULT) [address] [place] [address] Potassium [Moles/Vol] 4.1 mmol/L Normal 3.5-5.0 [facility] Comment on above: Performed By: #### X M #### [facility] (DEFAULT) [address] [place] [address] 9[address]45 Sodium [Moles/Vol] 134 mmol/L Low 135-145 [facility] Comment on above: Performed By: #### X M #### [facility] (DEFAULT) [address] [place] [address] 25808 Urea nitrogen [Mass/Vol] 24 mg/dL Normal 7-[address] [facility] Comment on above: Performed By: #### X M #### [facility] (DEFAULT) [address] [place] [address] 59563 Urea nitrogen/Creatinine [Mass ratio] 42 mg/mg Normal [facility] Comment on above: Performed By: #### X M #### [facility] (DEFAULT) [address] [place] [address] Anion gap [Moles/Vol] 12 mmol/L 7 - 17 mmol/L [facility] Chloride [Moles/Vol] 104 mmol/L 98 - 10 8 mmol/L [facility] CO2 [Moles/Vol] 22 mmol/L 21 - 31 mmol/L [facility] Creatinine [Mass/Vol] 0.57 mg/dL 0.50 - 1.20 mg/dL [facility] GFR/1.73 sq M.predicted CKD-EPI (S/P/Bld) [Vol rate/Area] 88 - PINF [facility] Comment on above: Reported eGFR is bas ed on the CKD-EPI 2020 equation using creatinine, age, and sex. Interpretation and review of laboratory results Abnormal [facility] Potassium [Moles/Vol] 4.1 mmol/L 3.5 - 5.0 mmol/L [facility] Sodium [Moles/Vol] 134 mmol/L Low 135 - 145 mmol/L [facility] Urea nitrogen [Mass/Vol] 24 mg/dL 7 - 25 mg/dL [facility] Urea nitrogen/Creatinine [Mass ratio] 42 mg/mg [facility] CONTINUOUS CARDIAC MONITORIN G STRIPon 04-05-2022 [facility] GLUCOSE POCon 04-05-2022 Glucose [Mass/Vol] 107 mg/dL High 70 - 99 mg/dL [facility] Interpretation and review of laboratory results Abnormal [facility] POC Sample Type CAPBL [facility] Test performed at address of the patient encounter. [facility] Glucose [Mass/Vol] 124 mg/dL High 70 - 99 mg/dL [facility] Interpretation and review of laboratory results Abnormal [facility] POC Sample Type CAPBL [facility] Test performed at address of the patient encounter. [facility] Glucose [Mass/Vol] 120 mg/dL High 70 - 99 mg/dL [facility] Interpretation and review of laboratory results Abnormal [facility] POC Sample Type CAPBL [facility] r [facility] Test performed at address of the patient encounter. [facility] MAGNESIUMon 04-05-2022 Magnesium [Mass/Vol] 1.9 mg/dL Normal 1.6-2.[address] [facility] Comment on above: Performed By: #### X M #### [facility] (DEFAULT) [address] [address] Interpretation and review of laboratory results Normal [facility] Magnesium [Mass/Vol] 1.9 mg/dL 1.6 - 2 .6 mg/dL [facility] No Panel Informationon 04-05 [facility] CBC,PLATELETSon 04-04-2022 Hematocrit (Bld) [Volume fraction] 34.3 % Low 34.9-44.[address] [facility] Comment on above: Performed By: #### L [email or web address] #### [facility] (DEFAULT) [address] [address] Hemoglobin (Bld) [Mass/Vol] 11.6 g/dL Normal 11.4-15.[address] [facility] Comment on above: Performed By: #### L ABHSTI1 #### [facility] (DEFAULT) [address] [address] MCV (RBC) [Entitic vol] 86.0 fL Normal 79.6-97.[address] [facility] Comment on above: Performed By: #### L ABHSTI1 #### [facility] (DEFAULT) [address] [address] Mean Cell Hgb 29.1 pg Normal 25.9-33.[address] [facility] Comment on above: Performed By: #### L ABHSTI1 #### [facility] (DEFAULT) [address] [address] Mean Cell Hgb Conc 33.8 g/dL Normal 31.4-35.9 [facility] Comment on above: Performed By: #### L ABHSTI1 #### [facility] (DEFAULT) [address] [address] Platelet mean volume (Bld) [Entitic vol] 10.1 fL Normal 8.5-12.[address] [facility] Comment on above: Performed By: #### L ABHSTI1 #### [facility] (DEFAULT) [address] [place] [address] Platelets (Bld) [#/Vol] 228 10*3/uL Normal 150-[address] [facility] Comment on above: Performed By: #### L ABHSTI1 #### [facility] (DEFAULT) [address] [place] [address] RBC (Bld) [#/Vol] 3.99 10*6/uL Normal 3.91-5.[address] [facility] Comment on above: Performed By: #### L ABHSTI1 #### [facility] (DEFAULT) [address] [place] [address] 73798 RBC Distribution 12.5 % Normal 10.8-14.9 [facility] Comment on above: Performed By: #### L ABHSTI1 #### [facility] (DEFAULT) [address] [place] [address] WBC (Bld) [#/Vol] 7.71 10*3/uL Normal 3.99-11.[address] [facility] Comment on above: Performed By: #### L ABHSTI1 #### [facility] (DEFAULT) [address] [place] [address] Erythrocyte distribution width (RBC) [Ratio] 12.5 % 10.8 - 14.9 % [facility] Hematocrit (Bld) [Volume fraction] 34.3 % Low 34.9 - 44.3 % [facility] Hemoglobin (Bld) [Mass/Vol] 11.6 g/dL 11.4 - 15.2 g/dL [facility] Interpretation and review of laboratory results Abnormal [facility] MCH (RBC) [Entitic mass] 29.1 pg 25.9 - 33.9 pg [facility] MCHC (RBC) [Mass/Vol] 33.8 g/dL 31.4 - 35.9 g/dL [facility] MCV (RBC) [Entitic vol] 86.0 fL 79.6 - 97.7 fL [facility] Platelet mean volume (Bld) [Entitic vol] 10.1 fL 8.5 - 12.2 fL [facility] Platelets (Bld) [#/Vol] 228 10*3/uL 150 - 393 K/uL [facility] RBC (Bld) [#/Vol] 3.99 10*6/uL [facility] WBC (Bld) [#/Vol] 7.71 10*3/uL 3.99 - 11. 19 K/uL [facility] CHEM 6 (LYTES, BUN CREA)on 0 04-04-2022 Anion gap [Moles/Vol] 12 mmol/L Normal 7-17 [facility] Comment on above: Performed By: #### T YPEC #### [facility] (DEFAULT) [address] [place] [address]686 Chloride [Moles/Vol] 103 mmol/L Normal 98-[address] [facility] Comment on above: Performed By: #### T YPEC #### [facility] (DEFAULT) [address] [place] [address] CO2 [Moles/Vol] 24 mmol/L Normal 21-31 [facility] Comment on above: Performed By: #### T YPEC #### [facility] (DEFAULT) [address] [place] [address] Creatinine [Mass/Vol] 0.69 mg/dL Normal 0.50-1.20 [facility] Comment on above: Performed By: #### T YPEC #### [facility] (DEFAULT) [address] [place] [address]23 GFR/1.73 sq M.predicted among non-blacks MDRD (S/P/Bld) [Vol rate/Area] 84 mL/min/{1.73_m2} Normal >=[address] [facility] Comment on above: Result Comment: Repo rted eGFR is based on the CKD-EPI 2020 equation using creatinine, age, and sex. Performed By: #### T YPEC #### [facility] (DEFAULT) [address] [place] [address] Potassium [Moles/Vol] 4.0 mmol/L Normal 3.5-5.0 [facility] Comment on above: Performed By: #### T YPEC #### [facility] (DEFAULT) [address] [place] [address] Sodium [Moles/Vol] 135 mmol/L Normal 135-145 [facility] Comment on above: Performed By: #### T YPEC #### [facility] (DEFAULT) [address] [place] [address] Urea nitrogen [Mass/Vol] 30 mg/dL High 7-[address] [facility] Comment on above: Performed By: #### T YPEC #### [facility] (DEFAULT) [address] [place] [address] Urea nitrogen/Creatinine [Mass ratio] 43 mg/mg Normal [facility] Comment on above: Performed By: #### T YPEC #### [facility] (DEFAULT) [address] [place] [address]371 Anion gap [Moles/Vol] 12 mmol/L 7 - 17 mmol/L [facility] Chloride [Moles/Vol] 103 mmol/L 98 - 10 8 mmol/L [facility] CO2 [Moles/Vol] 24 mmol/L 21 - 31 mmol/L [facility] Creatinine [Mass/Vol] 0.69 mg/dL 0.50 - 1.20 mg/dL [facility] GFR/1.73 sq M.predicted CKD-EPI (S/P/Bld) [Vol rate/Area] 84 - PINF [facility] Comment on above: Reported eGFR is bas ed on the CKD-EPI 2020 equation using creatinine, age, and sex. Interpretation and review of laboratory results Abnormal [facility] Potassium [Moles/Vol] 4.0 mmol/L 3.5 - 5.0 mmol/L [facility] Sodium [Moles/Vol] 135 mmol/L 135 - 145 mmol/L [facility] Urea nitrogen [Mass/Vol] 30 mg/dL High 7 - 25 mg/dL [facility] Urea nitrogen/Creatinine [Mass ratio] 43 mg/mg [facility] CONTINUOUS CARDIAC MONITORIN G STRIPon 04-04-2022 [facility] Cardiac catheterization stud yon 04-04-2022 [facility] GLUCOSE POCon 04-04-2022 Glucose [Mass/Vol] 201 mg/dL High 70 - 99 mg/dL [facility] Interpretation and review of laboratory results Abnormal [facility] POC Sample Type CAPBL [facility] Test performed at address of the patient encounter. [facility] Glucose [Mass/Vol] 116 mg/dL High 70 - 99 mg/dL [facility] Interpretation and review of laboratory results Abnormal [facility] POC Sample Type CAPBL [facility] Test performed at address of the patient encounter. [facility] Glucose [Mass/Vol] 152 mg/dL High 70 - 99 mg/dL [facility] Interpretation and review of laboratory results Abnormal [facility] POC Sample Type CAPBL [facility] Test performed at address of the patient encounter. [facility] Glucose [Mass/Vol] 126 mg/dL High 70 - 99 mg/dL [facility] Interpretation and review of laboratory results Abnormal [facility] POC Sample Type CAPBL [facility] Test performed at address of the patient encounter. [facility] Glucose [Mass/Vol] 118 mg/dL High 70 - 99 mg/dL [facility] Interpretation and review of laboratory results Abnormal [facility] POC Sample Type [facility] Test performed at address of the patient encounter. [facility] MAGNESIUMon 04-04-2022 Magnesium [Mass/Vol] 2.0 mg/dL Normal 1.6-2.[address] [facility] Comment on above: Performed By: #### T YPEC #### [facility] (DEFAULT) [address] [place] [address] Interpretation and review of laboratory results Normal [facility] Magnesium [Mass/Vol] 2.0 mg/dL 1.6 - 2 .6 mg/dL [facility] No Panel Informationon 04-04 [facility] TROPONIN 1 HOURon 04-04-2022 1 Hour hs-Troponin 126 ng/L High <34 [facility] Comment on above: Order Comment: Prese rvative, acetic acid, obtained from lab Result Comment: Sugg estive of myocardial injury Performed By: #### Y METN #### [facility] (DEFAULT) [address] [place] [address]44 Delta hs-Troponin I < Normal <=[address] [facility] Comment on above: Order Comment: Prese rvative, acetic acid, obtained from lab Performed By: #### Y METN #### [facility] (DEFAULT) [address] [place] [address]327 1 Hour hs-Troponin 126 ng/L High NINF - 34 ng/L [facility] Comment on above: Suggestive of myocar dial injury Delta hs-Troponin I ng/L NINF - 1 5 ng/L [facility] Interpretation and review of laboratory results Abnormal [facility] TROPONIN I INITIALon 023 hs-Troponin I 127 ng/L High <[address] [facility] Comment on above: Order Comment: Acute Coronary Syndrome (ACS): Initial Evaluation and Management:[email or web address]/Guide lines/Acute%20Coronary%20Syndrome.pdf#search=troponin Result Comment: Sugg estive of myocardial injury Performed By: #### 1 [id number] ####[facility] (DEFAULT)[address] [place] [address] TROPONIN I INITIALOrdered By : Tamica Alarcon on 04-04-2022 Interpretation and review of laboratory results Abnormal [facility] Troponin I.cardiac DL <= 0.01 ng/mL [Mass/Vol] 127 ng/L High NINF - 34 ng/L [facility] Comment on above: Suggestive of myocar dial injury [facility] CBC,PLATELETSon 04-03-2022 Hematocrit (Bld) [Volume fraction] 35.6 % Normal 34.9-44.[address] [facility] Comment on above: Performed By: #### X M #### [facility] (DEFAULT) [address] [address] Hemoglobin (Bld) [Mass/Vol] 12.0 g/dL Normal 11.4-15.[address] [facility] Comment on above: Performed By: #### X M #### [facility] (DEFAULT) [address] [address] MCV (RBC) [Entitic vol] 85.0 fL Normal 79.6-97.[address] [facility] Comment on above: Performed By: #### X M #### [facility] (DEFAULT) [address] [address] Mean Cell Hgb 28.6 pg Normal 25.9-33.[address] [facility] Comment on above: Performed By: #### X M #### [facility] (DEFAULT) [address] [address] Mean Cell Hgb Conc 33.7 g/dL Normal 31.4-35.9 [facility] Comment on above: Performed By: #### X M #### [facility] (DEFAULT) [address] [address] Platelet mean volume (Bld) [Entitic vol] 9.8 fL Normal 8.5-12.[address] [facility] Comment on above: Performed By: #### X M #### [facility] (DEFAULT) [address] [address] Platelets (Bld) [#/Vol] 231 10*3/uL Normal 150-[address] [facility] Comment on above: Performed By: #### X M #### [facility] (DEFAULT) [address] [place] [address]471 RBC (Bld) [#/Vol] 4.19 10*6/uL Normal 3.91-5.[address] [facility] Comment on above: Performed By: #### X M #### [facility] (DEFAULT) [address] [place] [address]78 RBC Distribution 12.7 % Normal 10.8-14.9 [facility] Comment on above: Performed By: #### X M #### [facility] (DEFAULT) [address] [place] [address]73 WBC (Bld) [#/Vol] 6.95 10*3/uL Normal 3.99-11.[address] [facility] Comment on above: Performed By: #### X M #### [facility] (DEFAULT) [address] [place] [address] Erythrocyte distribution width (RBC) [Ratio] 12.7 % 10.8 - 14.9 % [facility] Hematocrit (Bld) [Volume fraction] 35.6 % 34.9 - 44.3 % [facility] Hemoglobin (Bld) [Mass/Vol] 12.0 g/dL 11.4 - 15.2 g/dL [facility] Interpretation and review of laboratory results Normal [facility] MCH (RBC) [Entitic mass] 28.6 pg 25.9 - 33.9 pg [facility] MCHC (RBC) [Mass/Vol] 33.7 g/dL 31.4 - 35.9 g/dL [facility] MCV (RBC) [Entitic vol] 85.0 fL 79.6 - 97.7 fL [facility] Platelet mean volume (Bld) [Entitic vol] 9.8 fL 8.5 - 12.2 fL [facility] Platelets (Bld) [#/Vol] 231 10*3/uL 150 - 393 K/uL [facility] RBC (Bld) [#/Vol] 4.19 10*6/uL [facility] WBC (Bld) [#/Vol] 6.95 10*3/uL 3.99 - 11. 19 K/uL [facility] CHEM 6 (LYTES, BUN CREA)on 0 04-03-2022 Anion gap [Moles/Vol] 12 mmol/L Normal 7-17 [facility] Comment on above: Performed By: #### L ABHSTI1 #### [facility] (DEFAULT) [address] [place] [address] Chloride [Moles/Vol] 102 mmol/L Normal 98-[address] [facility] Comment on above: Performed By: #### L ABHSTI1 #### [facility] (DEFAULT) [address] [place] [address]00 CO2 [Moles/Vol] 23 mmol/L Normal 21-31 [facility] Comment on above: Performed By: #### L ABHSTI1 #### [facility] (DEFAULT) [address] [place] [address]37 Creatinine [Mass/Vol] 0.58 mg/dL Normal 0.50-1.20 [facility] Comment on above: Performed By: #### L ABHSTI1 #### [facility] (DEFAULT) [address] [place] [address] 28188 GFR/1.73 sq M.predicted among non-blacks MDRD (S/P/Bld) [Vol rate/Area] 88 mL/min/{1.73_m2} Normal >=[address] [facility] Comment on above: Result Comment: Repo rted eGFR is based on the CKD-EPI 2020 equation using creatinine, age, and sex. Performed By: #### L ABHSTI1 #### [facility] [facility] (DEFAULT) [address] [place] [address]59 Potassium [Moles/Vol] 4.3 mmol/L Normal 3.5-5.0 [facility] Comment on above: Performed By: #### L [id number] #### [facility] (DEFAULT) [address] [place] [address] 39999 Sodium [Moles/Vol] 133 mmol/L Low 135-145 [facility] Comment on above: Performed By: #### L HSTI1 #### [facility] (DEFAULT) [address] [place] [address] 41262 Urea nitrogen [Mass/Vol] 24 mg/dL Normal 7-[address] [facility] Comment on above: Performed By: #### L HSTI1 #### [facility] (DEFAULT) [address] [place] [address] 49495 Urea nitrogen/Creatinine [Mass ratio] 41 mg/mg Normal [facility] Comment on above: Performed By: #### L HSTI1 #### [facility] (DEFAULT) [address] [place] [address] 99784 Anion gap [Moles/Vol] 12 mmol/L 7 - 17 mmol/L [facility] Chloride [Moles/Vol] 102 mmol/L 98 - 10 8 mmol/L [facility] CO2 [Moles/Vol] 23 mmol/L 21 - 31 mmol/L [facility] Creatinine [Mass/Vol] 0.58 mg/dL 0.50 - 1.20 mg/dL [facility] GFR/1.73 sq M.predicted CKD-EPI (S/P/Bld) [Vol rate/Area] 88 - PINF [facility] Comment on above: Reported eGFR is bas ed on the CKD-EPI 2020 equation using creatinine, age, and sex. Interpretation and review of laboratory results Abnormal [facility] Potassium [Moles/Vol] 4.3 mmol/L 3.5 - 5.0 mmol/L [facility] Sodium [Moles/Vol] 133 mmol/L Low 135 - 145 mmol/L [facility] Urea nitrogen [Mass/Vol] 24 mg/dL 7 - 25 mg/dL [facility] Urea nitrogen/Creatinine [Mass ratio] 41 mg/mg [facility] CONTINUOUS CARDIAC MONITORIN G STRIPon 04-03-2022 [facility] GLUCOSE POCon 04-03-2022 Glucose [Mass/Vol] 171 mg/dL High 70 - 99 mg/dL [facility] Interpretation and review of laboratory results Abnormal [facility] POC Sample Type CAPBL [facility] Test performed at address of the patient encounter. [facility] Glucose [Mass/Vol] 116 mg/dL High 70 - 99 mg/dL [facility] Interpretation and review of laboratory results Abnormal [facility] POC Sample Type CAPBL [facility] Test performed at address of the patient encounter. [facility] Glucose [Mass/Vol] 96 mg/dL 70 - 99 mg/dL [facility] POC Sample Type CAPBL [facility] Test performed at address of the patient encounter. [facility] Glucose [Mass/Vol] 136 mg/dL High 70 - 99 mg/dL [facility] Interpretation and review of laboratory results Abnormal [facility] POC Sample Type CAPBL [facility] Test performed at address of the patient encounter. [facility] MAGNESIUMon 04-03-2022 Magnesium [Mass/Vol] 1.8 mg/dL Normal 1.6-2.[address] [facility] Comment on above: Performed By: #### L [facility] #### [facility] (DEFAULT) [address] [place] [address] Interpretation and review of laboratory results Normal [facility] Magnesium [Mass/Vol] 1.8 mg/dL 1.6 - 2 .6 mg/dL [facility] No Panel Informationon 04-03 [facility] ACT* LOW RANGE, POCon 2022 ACT-LR 343 High [facility] ACT-LR 370 High [facility] ACT-LR 169 [facility] ACT-LR 267 High [facility] Interpretation and review of laboratory results Normal [facility] Interpretation and review of laboratory results Abnormal [facility] CBC,PLATELETSon 04-02-2022 Hematocrit (Bld) [Volume fraction] 38.3 % Normal 34.9-44.[address] [facility] Comment on above: Performed By: #### X M #### [facility] (DEFAULT) [address] [address] Hemoglobin (Bld) [Mass/Vol] 12.8 g/dL Normal 11.4-15.[address] [facility] Comment on above: Performed By: #### X M #### [facility] (DEFAULT) [address] [address] MCV (RBC) [Entitic vol] 85.7 fL Normal 79.6-97.[address] [facility] Comment on above: Performed By: #### X M #### [facility] (DEFAULT) [address] [address] Mean Cell Hgb 28.6 pg Normal 25.9-33.[address] [facility] Comment on above: Performed By: #### X M #### [facility] (DEFAULT) [address] [place] [address] 72792 Mean Cell Hgb Conc 33.4 g/dL Normal 31.4-35.9 [facility] Comment on above: Performed By: #### X M #### [facility] (DEFAULT) [address] [address] Platelet mean volume (Bld) [Entitic vol] 10.0 fL Normal 8.5-12.[address] [facility] Comment on above: Performed By: #### X M #### [facility] (DEFAULT) [address] [place] [address] 16451 Platelets (Bld) [#/Vol] 247 10*3/uL Normal 150-[address] [facility] Comment on above: Performed By: #### X M #### [facility] (DEFAULT) [address] [place] [address] 69784 RBC (Bld) [#/Vol] 4.47 10*6/uL Normal 3.91-5.[address] [facility] Comment on above: Performed By: #### X M #### [facility] (DEFAULT) [address] [place] [address] 65935 RBC Distribution 12.9 % Normal 10.8-14.9 [facility] Comment on above: Performed By: #### X M #### [facility] (DEFAULT) [address] [place] [address] 55132 WBC (Bld) [#/Vol] 7.44 10*3/uL Normal 3.99-11.[address] [facility] Comment on above: Performed By: #### X M #### [facility] (DEFAULT) [address] [place] [address] 78584 Erythrocyte distribution width (RBC) [Ratio] 12.9 % 10.8 - 14.9 % [facility] Hematocrit (Bld) [Volume fraction] 38.3 % 34.9 - 44.3 % [facility] Hemoglobin (Bld) [Mass/Vol] 12.8 g/dL 11.4 - 15.2 g/dL [facility] Interpretation and review of laboratory results Normal [facility] MCH (RBC) [Entitic mass] 28.6 pg 25.9 - 33.9 pg [facility] MCHC (RBC) [Mass/Vol] 33.4 g/dL 31.4 - 35.9 g/dL [facility] MCV (RBC) [Entitic vol] 85.7 fL 79.6 - 97.7 fL [facility] Platelet mean volume (Bld) [Entitic vol] 10.0 fL 8.5 - 12.2 fL [facility] Platelets (Bld) [#/Vol] 247 10*3/uL 150 - 393 K/uL [facility] RBC (Bld) [#/Vol] 4.47 10*6/uL [facility] WBC (Bld) [#/Vol] 7.44 10*3/uL 3.99 - 11. 19 K/uL [facility] CHEM 6 (LYTES, BUN CREA)on 0 04-02-2022 Anion gap [Moles/Vol] 12 mmol/L Normal 7-17 [facility] Comment on above: Performed By: #### C HM6 #### [facility] (DEFAULT) [address] [place] [address] 19446 Chloride [Moles/Vol] 102 mmol/L Normal 98-[address] [facility] Comment on above: Performed By: #### C HM6 #### [facility] (DEFAULT) [address] [place] [address] 03695 CO2 [Moles/Vol] 26 mmol/L Normal 21-31 [facility] Comment on above: Performed By: #### C HM6 #### [facility] (DEFAULT) [address] [place] [address] 39838 Creatinine [Mass/Vol] 0.59 mg/dL Normal 0.50-1.20 [facility] Comment on above: Performed By: #### C HM6 #### [facility] (DEFAULT) [address] [place] [address] 64215 GFR/1.73 sq M.predicted among non-blacks MDRD (S/P/Bld) [Vol rate/Area] 87 mL/min/{1.73_m2} Normal >=[address] [facility] Comment on above: Result Comment: Repo rted eGFR is based on the CKD-EPI 2020 equation using creatinine, age, and sex. Performed By: #### C HM6 #### [facility] (DEFAULT) [address] [place] [address] 76382 Potassium [Moles/Vol] 4.1 mmol/L Normal 3.5-5.0 [facility] Comment on above: Performed By: #### C HM6 #### [facility] (DEFAULT) [address] [place] [address] Sodium [Moles/Vol] 136 mmol/L Normal 135-145 [facility] Comment on above: Performed By: #### C HM6 #### [facility] (DEFAULT) [address] [place] [address] Urea nitrogen [Mass/Vol] 20 mg/dL Normal 7-[address] [facility] Comment on above: Performed By: #### C HM6 #### [facility] (DEFAULT) [address] [place] [address] 33484 Urea nitrogen/Creatinine [Mass ratio] 34 mg/mg Normal [facility] Comment on above: Performed By: #### C HM6 #### [facility] (DEFAULT) [address] [place] [address] 04048 Anion gap [Moles/Vol] 12 mmol/L 7 - 17 mmol/L [facility] Chloride [Moles/Vol] 102 mmol/L 98 - 10 8 mmol/L [facility] CO2 [Moles/Vol] 26 mmol/L 21 - 31 mmol/L [facility] Creatinine [Mass/Vol] 0.59 mg/dL 0.50 - 1.20 mg/dL [facility] GFR/1.73 sq M.predicted CKD-EPI (S/P/Bld) [Vol rate/Area] 87 - PINF [facility] Comment on above: Reported eGFR is bas ed on the CKD-EPI 2020 equation using creatinine, age, and sex. Potassium [Moles/Vol] 4.1 mmol/L 3.5 - 5.0 mmol/L [facility] Sodium [Moles/Vol] 136 mmol/L 135 - 145 mmol/L [facility] Urea nitrogen [Mass/Vol] 20 mg/dL 7 - 25 mg/dL [facility] Urea nitrogen/Creatinine [Mass ratio] 34 mg/mg [facility] CONTINUOUS CARDIAC MONITORIN G STRIPon 04-02-2022 [facility] Cardiac catheterization stud grzegorz 04-02-2022 Body surface area Derived from formula 1.54 m2 [facility] Impression: Successful high-risk, complex PCI to proximal to mid LAD with two overlapping drug eluting stents. Calcified distal left main and ostial/proximal LAD appears non-obstructive and stable by IVUS. Recommendations: Uninterrupted DAPT for 1 year, if tolerated Single agent antiplatelet therapy for life afterward. Consider stage PCI to RCA later this admission. Continued work up and management for aortic stenosis. Risk factor surveillance and modification. --------- - Access: Right femoral artery with 7 FR sheath. Perclose for hemostasis. Limited coronary angiogram: Moderate left main disease with eccentric, calcified 40% distal stenosis. Minimal luminal area of left main was 10 mm2 on IVUS. LAD with serial sub-total stenosis in proximal to mid vessel. Mild to moderate disease elsewhere. LCx with 90% ostial stenosis. Mild disease elsewhere. Right coronary recently interrogated. Not engaged. Intervention: Complex, high-risk PCI: moderate to heavy calcification, tortuous, bifurcation lesion involving large diagonal and LAD Proper guide engagement of the left coronary artery was not possible with a 7 FR EBU 3.5 and a 7 FR XB guide, so a 6 FR EBU 3.0 guide was used. The proximal to mid LAD stenosis was unable to be traversed with a [place] XT. A Whisper wire was successfully advanced to the distal LAD. The lesions were pre-dilated with a 1.5 x 15 mm Takeru balloon, a 2 x 20 mm compliant balloon, and a 2.5 x 20 mm compliant balloon in succession. The mid LAD lesion was treated with a 2.5 x 18 mm Xience Skypoint HIRAL deployed at 12 bola. The proximal LAD lesion was treated with a 2.75 x 15 mm Xience Skypoint HIRAL deployed at 15 bola. The overlap was dilated with the stent balloon. IVUS of the left main and proximal LAD showed no dissection with non-obstructive left main MLA as above. Final angiography showed good result without complication and CAITLIN 3 flow throughout the vessel. Coronary Findings Diagnostic Dominance: Right Left Main: There is mild diffuse disease throughout the vessel. Dist LM to Ost LAD lesion is 40% stenosed. Left Anterior Descending: There is mild diffuse disease throughout the vessel. Prox LAD to Mid LAD lesion is 99% stenosed. Culprit lesion. Mid LAD lesion is 95% stenosed. Culprit lesion. Dist LAD lesion is 50% stenosed. First Diagonal Branch: The vessel is large. There is mild diffuse disease throughout the vessel. 1st Diag lesion is 70% stenosed. Left Circumflex: There is mild diffuse disease throughout the vessel. Ost Cx to Prox Cx lesion is 90% stenosed. First Obtuse Marginal Branch: The vessel is large. There is mild diffuse disease throughout the vessel. Intervention Prox LAD to Mid LAD lesion: PCI: - A CATHETER GUIDING 6FR EBU3 CURVE 100CM SHUKRI NX BALANCED interventional guide catheter was used to successfully engage the vessel. - A GUIDEWIRE HI-TORQUE WHISPER MS .014IN 190CM STRAIGHT was used to cross the lesion Angioplasty - BALLOON DILATATION RX TAKERU 1.5MM 15MM LOW ENTRY PROFILE. Multiple inflations were performed. Maximum pressure: 12 bola. Inflation time: 20 sec. - BALLOON DILATATION MINI TREK SLIM SEAL 2MM 20MM RAPID. Maximum pressure: 15 bola. Inflation time: 25 sec. - BALLOON DILATATION TREK SLIM SEAL 2.5MM 20MM RAPID EXCHANGE. Maximum pressure: 10 bola. Inflation time: 20 sec. Stent placement - CORONARY STENT 15MM 2.75MM XIENCE SKYPOINT MULTI-LINK 145CM drug-eluting. Multiple inflations were performed. Maximum pressure 15 bola. Inflation time 20 sec. - The intervention was successful. No complications occurred at this lesion. - Intravascular ultrasound was performed on the lesion. Ultrasound supply: CATH ULTRND IVUS [facility]. Supplies Used: CATHETER GUIDING 6FR EBU3 CURVE 100CM SHUKRI NX BALANCED; GUIDEWIRE COUGAR XT .014IN 190CM STRAIGHT VASCULAR There is a 0% residual stenosis post intervention. Mid LAD lesion: PCI: - A CATHETER GUIDING 6FR EBU3 CURVE 100CM SHUKRI NX BALANCED interventional guide catheter was used to successfully engage the vessel. - A GUIDEWIRE HI-TORQUE WHISPER MS .014IN 190CM STRAIGHT was used to cross the lesion Angioplasty - BALLOON DILATATION MINI TREK SLIM SEAL 2MM 20MM RAPID. Maximum pressure: 15 bola. Inflation time: 20 sec. - BALLOON DILATATION TREK SLIM SEAL 2.5MM 20MM RAPID EXCHANGE. Maximum pressure: 10 bola. Inflation time: 30 sec. Stent placement - CORONARY STENT 18MM 2.5MM XIENCE SKYPOINT MULTI-LINK 145CM drug-eluting. Maximum pressure 12 bola. Inflation time 18 sec. - The intervention was successful. No complications occurred at this lesion. Supplies Used: GUIDEWIRE HI-TORQUE WHISPER MS .014IN 190CM STRAIGHT; CATHETER GUIDING 6FR EBU3 CURVE 100CM SHUKRI NX BALANCED There is a 0% residual stenosis post intervention. PCI Risk Factors PCI Status: Urgent Heart Failure: Yes NYHA Class: Class II/III Newly Diagnosed: Yes (within 12 months) Heart Failure type: Diastolic heart fa (more content not included)... [facility] GLUCOSE POCon 04-02-2022 Glucose [Mass/Vol] 162 mg/dL High 70 - 99 mg/dL [facility] Interpretation and review of laboratory results Abnormal [facility] POC Sample Type CAPBL [facility] Test performed at address of the patient encounter. [facility] Glucose [Mass/Vol] 119 mg/dL High 70 - 99 mg/dL [facility] Interpretation and review of laboratory results Abnormal [facility] POC Sample Type CAPBL [facility] Test performed at address of the patient encounter. [facility] Glucose [Mass/Vol] 131 mg/dL High 70 - 99 mg/dL [facility] Interpretation and review of laboratory results Abnormal [facility] POC Sample Type CAPBL [facility] Test performed at address of the patient encounter. [facility] Glucose [Mass/Vol] 122 mg/dL High 70 - 99 mg/dL [facility] Interpretation and review of laboratory results Abnormal [facility] POC Sample Type CAPBL [facility] Test performed at address of the patient encounter. [facility] MAGNESIUMon 04-02-2022 Magnesium [Mass/Vol] 1.9 mg/dL Normal 1.6-2.[address] [facility] Comment on above: Performed By: #### C HM6 #### [facility] (DEFAULT) [address] [place] [address] Interpretation and review of laboratory results Normal [facility] Magnesium [Mass/Vol] 1.9 mg/dL 1.6 - 2 .6 mg/dL [facility] No Panel Informationon 04-02 [facility] Interpretation and review of laboratory results Abnormal [facility] Test performed at address of the patient encounter. [facility] Test performed at address of the patient encounter. [facility] CBC,PLATELETSon 04-01-2022 Hematocrit (Bld) [Volume fraction] 37.1 % Normal 34.9-44.[address] [facility] Comment on above: Performed By: #### C HM6 #### [facility] (DEFAULT) [address] [place] [address] 84436 Hemoglobin (Bld) [Mass/Vol] 12.3 g/dL Normal 11.4-15.[address] [facility] Comment on above: Performed By: #### C HM6 #### [facility] (DEFAULT) [address] [place] [address] 67623 MCV (RBC) [Entitic vol] 85.3 fL Normal 79.6-97.[address] [facility] Comment on above: Performed By: #### C HM6 #### [facility] (DEFAULT) [address] [address] Mean Cell Hgb 28.3 pg Normal 25.9-33.[address] [facility] Comment on above: Performed By: #### C HM6 #### [facility] (DEFAULT) [address] [place] [address] 23065 Mean Cell Hgb Conc 33.2 g/dL Normal 31.4-35.9 [facility] Comment on above: Performed By: #### C HM6 #### [facility] (DEFAULT) [address] [place] [address] 10002 Platelet mean volume (Bld) [Entitic vol] 10.2 fL Normal 8.5-12.[address] [facility] Comment on above: Performed By: #### C HM6 #### [facility] (DEFAULT) [address] [place] [address] 30759 Platelets (Bld) [#/Vol] 248 10*3/uL Normal 150-[address] [facility] Comment on above: Performed By: #### C HM6 #### [facility] (DEFAULT) [address] [place] [address] 76181 RBC (Bld) [#/Vol] 4.35 10*6/uL Normal 3.91-5.[address] [facility] Comment on above: Performed By: #### C HM6 #### [facility] (DEFAULT) [address] [place] [address] 77717 RBC Distribution 12.8 % Normal 10.8-14.9 [facility] Comment on above: Performed By: #### C HM6 #### [facility] (DEFAULT) [address] [place] [address] 75026 WBC (Bld) [#/Vol] 7.15 10*3/uL Normal 3.99-11.[address] [facility] Comment on above: Performed By: #### C HM6 #### [facility] (DEFAULT) [address] [place] [address] 45569 Erythrocyte distribution width (RBC) [Ratio] 12.8 % 10.8 - 14.9 % [facility] Hematocrit (Bld) [Volume fraction] 37.1 % 34.9 - 44.3 % [facility] Hemoglobin (Bld) [Mass/Vol] 12.3 g/dL 11.4 - 15.2 g/dL [facility] Interpretation and review of laboratory results Normal [facility] MCH (RBC) [Entitic mass] 28.3 pg 25.9 - 33.9 pg [facility] MCHC (RBC) [Mass/Vol] 33.2 g/dL 31.4 - 35.9 g/dL [facility] MCV (RBC) [Entitic vol] 85.3 fL 79.6 - 97.7 fL [facility] Platelet mean volume (Bld) [Entitic vol] 10.2 fL 8.5 - 12.2 fL [facility] Platelets (Bld) [#/Vol] 248 10*3/uL 150 - 393 K/uL [facility] RBC (Bld) [#/Vol] 4.35 10*6/uL [facility] WBC (Bld) [#/Vol] 7.15 10*3/uL 3.99 - 11. 19 K/uL [facility] CHEM 6 (LYTES, BUN CREA)on 0 - Anion gap [Moles/Vol] 15 mmol/L Normal 7-17 [facility] Comment on above: Performed By: #### C HM7 #### [facility] (DEFAULT) [address] [address] Chloride [Moles/Vol] 105 mmol/L Normal 98-[address] [facility] Comment on above: Performed By: #### C HM7 #### [facility] (DEFAULT) [address] [address] CO2 [Moles/Vol] 22 mmol/L Normal 21-31 [facility] Comment on above: Performed By: #### C HM7 #### [facility] (DEFAULT) [address] [address] Creatinine [Mass/Vol] 0.69 mg/dL Normal 0.50-1.20 [facility] Comment on above: Performed By: #### C HM7 #### [facility] (DEFAULT) [address] [address] GFR/1.73 sq M.predicted among non-blacks MDRD (S/P/Bld) [Vol rate/Area] 84 mL/min/{1.73_m2} Normal >=[address] [facility] Comment on above: Result Comment: Repo rted eGFR is based on the CKD-EPI 2020 equation using creatinine, age, and sex. Performed By: #### C HM7 #### [facility] (DEFAULT) [address] [place] [address] 49148 Potassium [Moles/Vol] 4.6 mmol/L Normal 3.5-5.0 [facility] Comment on above: Performed By: #### C HM7 #### [facility] (DEFAULT) [address] [place] [address] 55731 Sodium [Moles/Vol] 137 mmol/L Normal 135-145 [facility] Comment on above: Performed By: #### C HM7 #### [facility] (DEFAULT) [address] [place] [address] 17255 Urea nitrogen [Mass/Vol] 29 mg/dL High 7-[address] [facility] Comment on above: Performed By: #### C HM7 #### [facility] (DEFAULT) [address] [place] [address] 21108 Urea nitrogen/Creatinine [Mass ratio] 42 mg/mg Normal [facility] Comment on above: Performed By: #### C HM7 #### [facility] (DEFAULT) [address] [place] [address] 57537 Anion gap [Moles/Vol] 15 mmol/L 7 - 17 mmol/L [facility] Chloride [Moles/Vol] 105 mmol/L 98 - 10 8 mmol/L [facility] CO2 [Moles/Vol] 22 mmol/L 21 - 31 mmol/L [facility] Creatinine [Mass/Vol] 0.69 mg/dL 0.50 - 1.20 mg/dL [facility] GFR/1.73 sq M.predicted CKD-EPI (S/P/Bld) [Vol rate/Area] 84 - PINF [facility] Comment on above: Reported eGFR is bas ed on the CKD-EPI 2020 equation using creatinine, age, and sex. Interpretation and review of laboratory results Abnormal [facility] Potassium [Moles/Vol] 4.6 mmol/L 3.5 - 5.0 mmol/L [facility] Sodium [Moles/Vol] 137 mmol/L 135 - 145 mmol/L [facility] Urea nitrogen [Mass/Vol] 29 mg/dL High 7 - 25 mg/dL [facility] Urea nitrogen/Creatinine [Mass ratio] 42 mg/mg [facility] Cardiac catheterization stud yon 04-01-2022 [facility] Radiology Study observation (narrative) [facility] Radiology Study observation (narrative) [facility] Cardiac echo study Procedure Ordered By: Antwon Davis on 04-01-2022 Ao peak jay 3.36 m/s [facility] Work Phone: Ao VTI 92.42 cm [facility] Work Phone: AR Max Jay 3.13 m/s [facility] Work Phone: Ascending aorta 3.52 cm [facility] Work Phone: AV LVOT peak gradient 3 mmHg [facility] Work Phone: AV mean gradient 33 mmHg [facility] Work Phone: AV peak gradient 45 mmHG [facility] Work Phone: AV regurgitation pressure 1/2 time 413.34 ms [facility] Work Phone: AV valve area 0.69 cm2 [facility] Work Phone: AV Velocity Ratio 0.25 [facility] Work Phone: LIDIA (continuity Vmax) 0.74 cm2 [facility] Work Phone: LIDIA (continuity VTI) 0.69 cm2 [facility] Work Phone: LIDIA index (continuity Vmax) 0.48 m/s [facility] Work Phone: LIDIA index (continuity VTI) 0.45 cm2/m2 [facility] Work Phone: Avg e' pk jay 0.06 m/s [facility] Work Phone: Avg E/e' ratio 20.68 [facility] Work Phone: Body surface area Derived from formula 1.54 m2 [facility] Work Phone: BP EF 59 % [facility] Work Phone: DI (Vmax) 0.25 [facility] Work Phone: DI (VTI) 0.23 m/2 [facility] Work Phone: E wave decelartion time 358.42 msec [facility] Work Phone: e' lateral pk jay 0.0932 m/s [facility]: e' lateral pk jay 0.09 m/s [facility] Work Phone: e' septal pk jay 0.0331 m/s [facility]: e' septal pk jay 0.03 m/s [facility] Work Phone: E/A ratio 0.81 [facility] Work Phone: E/e' lateral ratio 10.84 [facility]: E/e' septal ratio 30.51 [facility] Work Phone: EF SP 2CH 65 [facility] Work Phone: EF SP 4CH 54 [facility] Work Phone: EST RAP 3.00 mmHg [facility] Work Phone: EST RVSP 26 mmHg [facility] Work Phone: FS 34 % 28 - 44 % [facility] Work Phone: IVS 1.23 cm [facility] Work Phone: LA AREA 2CH 22.98 cm2 [facility] Work Phone: LA area 4CH 17.03 cm2 [facility] Work Phone: LA ESV BP (MOD) 57 mL [facility]: LA ESV BP (MOD) index 37 mL/m2 [facility] Work Phone: LA ESV SP 2CH (MOD) 75 mL [facility] Work Phone: LA ESV SP 4CH (MOD) 42 mL [facility] Work Phone: LV EDV BP 46 mL [facility] Work Phone: LV EDV SP 2CH 46 mL [facility] Work Phone: LV EDV SP 4CH 46 mL [facility] Work Phone: LV ESV BP 19 mL [facility] Work Phone: LV ESV SP 2CH 16 mL [facility] Work Phone: LV ESV SP 4CH 21 mL [facility] Work Phone: LV mass 162.25 g [facility] Work Phone: LV Mass Index 105.4 g/m2 [facility] Work Phone: LV RWT 0.43 [facility] Work Phone: LV stroke volume BP (ml) 27 mL [facility] Work Phone: LV stroke volume index BP 17.53 mL/m2 [facility] Work Phone: LVIDD 4.36 cm [facility] Work Phone: LVIDS 2.86 cm [facility] Work Phone: LVOT area 2.98 cm2 [facility] Work Phone: LVOT diameter 1.95 cm [facility] Work Phone: LVOT peak jay 0.83 m/s [facility] Work Phone: LVOT peak VTI 21.38 cm [facility] Work Phone: LVOT stroke volume 64 cm3 [facility] Work Phone: LVOT stroke volume index 41.44 ml/m2 [facility] Work Phone: MV pk A jay 1.25 m/s [facility] Work Phone: MV pk E jay 1.01 m/s [facility] Work Phone: [facility] AV VTI RATIO PRE STRESS 0.23 [facility] Work Phone: [facility] ECHO LV BIPLANE SYSTOLIC VOLUME INDEX 12.34 mL/m2 [facility] Work Phone: [facility] ECHO LV BP DIASTOLIC VOLUME INDEX 29.87 mL/m2 [facility] Work Phone: PW 0.93 cm [facility] Work Phone: RA area 4CH (MOD) 12.30 cm2 [facility] Work Phone: RA vol index 4CH (MOD) 19.48 mL/m2 [facility] Work Phone: Right atrium volume 4 chamber method of disks 30 mL [facility] Work Phone: RV Area diastolic 17.45 cm2 [facility] Work Phone: RV Area systolic 11.79 cm2 [facility] Work Phone: RV basal diam 3.63 cm [facility] Work Phone: RV Fractional area change 32.4 % [facility] Work Phone: RV long diam 6.57 cm [facility] Work Phone: RV mid diam 2.69 cm [facility] Work Phone: RV S' 17.00 cm/s [facility] Work Phone: RVOT peak gradient 4 mmHg [facility]: RVOT peak jay 0.97 m/s [facility] Work Phone: RVOT peak VTI 18.68 cm [facility] Work Phone: Sinus 2.71 cm [facility] Work Phone: STJ 2.27 cm [facility] Work Phone: Stroke Volume 64 cm/mL [facility] Work Phone: Stroke volume index 41 [facility] Work Phone: TAPSE 1.65 cm [facility] Work Phone: TR pk grad 23 mmHg [facility] Work Phone: TR pk jay 2.40 m/s [facility] Work Phone: [facility] Work Phone: Cardiac echo study Procedure on 04-01-2022 Sub-optimal image quality, no prior echo at this institution. Left Ventricle: Chamber size is normal. Increased wall thickness. Concentric hypertrophy. Normal global wall motion. Regional wall motion is normal. Ejection fraction is normal (65 - 70%). Diastolic function is consistent with pseudonormalization (grade II). Probably elevated left atrial pressure. Right Ventricle: Chamber size is normal. Systolic function is normal. Left Atrium: Chamber size is mildly enlarged. Aortic Valve: Trileaflet valve. Non-specific thickening. Leaflet calcification. Leaflet excursion is decreased. Mild regurgitation. Severe stenosis. LVOT diameter: 1.95 cm. Mean gradient: 33 mmHg. Dimensionless Index by VTI: 0.23. Valve area continuity VTI: 0.69 cm2. The valve Vmax is 3.36 m/s. Estimated right ventricular systolic pressure is 26 mmHg. Left Ventricle Chamber size is normal. Increased wall thickness. Concentric hypertrophy. Normal global wall motion. Regional wall motion is normal. Ejection fraction is normal (65 - 70%). Diastolic function is consistent with pseudonormalization (grade II). Probably elevated left atrial pressure. Right Ventricle Chamber size is normal. Systolic function is normal. Left Atrium Chamber size is mildly enlarged. Right Atrium Chamber size is normal. IVC/SVC The inferior vena cava structure has a diameter <21 mm and decreases >50% during inspiration. Mitral Valve Non-specific leaflet thickening. Leaflet mobility is normal. Annular calcification. No regurgitation. No valve stenosis. Tricuspid Valve Normal leaflets. Leaflet mobility is normal. Trace regurgitation. Hepatic vein flow is normal. No stenosis. Estimated right ventricular systolic pressure is 26 mmHg. Estimated right atrial pressure is 3.00 mmHg. Aortic Valve Trileaflet valve. Non-specific thickening. Leaflet calcification. Leaflet excursion is decreased. Mild regurgitation. Severe stenosis. LVOT diameter: 1.95 cm. Mean gradient: 33 mmHg. Dimensionless Index by VTI: 0.23. Valve area continuity VTI: 0.69 cm2. The valve Vmax is 3.36 m/s. Pulmonic Valve Pulmonic valve not well visualized. No regurgitation. No stenosis. Pericardium No pericardial effusion. Septum The atrial septum is normal. Pulmonary Artery Pulmonary artery not well visualized. Aorta No dilation to extent seen. Study Details A complete echocardiography study was performed. Overall study quality was fair. Imaging system used: [email or web address]. Indications Indications for study: LV function. Wall Scoring Score Index: 1.00 The left ventricular wall motion is normal. [facility] Radiology Study observation (narrative) [facility] ECHOCARDIOGRAMon 04-01-2022 Echocardiography ? Sub-optimal image quality, no prior echo at this institution. ? Left Ventricle: Chamber size is normal. Increased wall thickness. Concentric hypertrophy. Normal global wall motion. Regional wall motion is normal. Ejection fraction is normal (65 - 70%). Diastolic function is consistent with pseudonormalization (grade II). Probably elevated left atrial pressure. ? Right Ventricle: Chamber size is normal. Systolic function is normal. ? Left Atrium: Chamber size is mildly enlarged. ? Aortic Valve: Trileaflet valve. Non-specific thickening. Leaflet calcification. Leaflet excursion is decreased. Mild regurgitation. Severe stenosis. LVOT diameter: 1.95 cm. Mean gradient: 33 mmHg. Dimensionless Index by VTI: 0.23. Valve area continuity VTI: 0.69 cm2. The valve Vmax is 3.36 m/s. ? Estimated right ventricular systolic pressure is 26 mmHg. Table formatting from the original result was not included. Images from the original result were not included. Facility [facility] Patient Information Patient Name Finesse Prather Legal Sex Female Indication for Exam Priority: Routine Dx: Aortic valve stenosis, etiology of cardiac valve disease unspecified [I35.0 (ICD-10-CM)] Order Question Reason for Exam evaluate cardiac function prior to tavr Interpretation Summary ? Sub-optimal image quality, no prior echo at this institution. ? Left Ventricle: Chamber size is normal. Increased wall thickness. Concentric hypertrophy. Normal global wall motion. Regional wall motion is normal. Ejection fraction is normal (65 - 70%). Diastolic function is consistent with pseudonormalization (grade II). Probably elevated left atrial pressure. ? Right Ventricle: Chamber size is normal. Systolic function is normal. ? Left Atrium: Chamber size is mildly enlarged. ? Aortic Valve: Trileaflet valve. Non-specific thickening. Leaflet calcification. Leaflet excursion is decreased. Mild regurgitation. Severe stenosis. LVOT diameter: 1.95 cm. Mean gradient: 33 mmHg. Dimensionless Index by VTI: 0.23. Valve area continuity VTI: 0.69 cm2. The valve Vmax is 3.36 m/s. ? Estimated right ventricular systolic pressure is 26 mmHg. Findings Left Ventricle Chamber size is normal. Increased wall thickness. Concentric hypertrophy. Normal global wall motion. Regional wall motion is normal. Ejection fraction is normal (65 - 70%). Diastolic function is consistent with pseudonormalization (grade II). Probably elevated left atrial pressure. Right Ventricle Chamber size is normal. Systolic function is normal. Left Atrium Chamber size is mildly enlarged. Right Atrium Chamber size is normal. Septum The atrial septum is normal. Mitral Valve Non-specific leaflet thickening. Leaflet mobility is normal. Annular calcification. No regurgitation. No valve stenosis. Aortic Valve Trileaflet valve. Non-specific thickening. Leaflet calcification. Leaflet excursion is decreased. Mild regurgitation. Severe stenosis. LVOT diameter: 1.95 cm. Mean gradient: 33 mmHg. Dimensionless Index by VTI: 0.23. Valve area continuity VTI: 0.69 cm2. The valve Vmax is 3.36 m/s. Tricuspid Valve Normal leaflets. Leaflet mobility is normal. Trace regurgitation. Hepatic vein flow is normal. No stenosis. Estimated right ventricular systolic pressure is 26 mmHg. Estimated right atrial pressure is 3.00 mmHg. Pulmonic Valve Pulmonic valve not well visualized. No regurgitation. No stenosis. Aorta No dilation to extent seen. Pericardium No pericardial effusion. IVC/SVC The inferior vena cava structure has a diameter <21 mm and decreases >50% during inspiration. Pulmonary Artery Pulmonary artery not well visualized. Reading Providers Reading Role Read Date Antwon Davis MD Echo [place] 04/01/2022 Wall Scoring Score Index: 1.00 The left ventricular wall motion is normal. Left Heart Measurements LV - Systole LVIDD 4.36 cm IVS 1.23 cm LVIDS 2.86 cm PW 0.93 cm LV RWT 0.43 LV Mass Index 105.4 g/m2 LV EDV BP 46 mL LV ESV BP 19 mL BP EF 59 % LV stroke volume BP (ml) 27 mL LV stroke volume index BP 17.53 mL/m2 LV - Diastole MV pk E jay 1.01 m/s MV pk A jay 1.25 m/s E/A ratio 0.81 e' septal pk jay 0.03 m/s e' lateral pk jay 0.09 m/s Avg e' pk jay 0.06 m/s E/e' septal ratio 30.51 E/e' lateral ratio 10.84 Avg E/e' ratio 20.68 LV - HCM AV LVOT peak gradient 3 mmHg Left Atrium LA ESV SP 4CH (MOD) 42 mL LA ESV SP 2CH (MOD) 75 mL LA ESV BP (MOD) index 37 mL/m2 Right Heart Measurements RV - 2D RV basal diam 3.63 cm RV mid diam 2.69 cm RV long diam 6.57 cm RV Area diastolic 17.45 cm2 RV Area systolic 11.79 cm2 RV Fractional area change 32.4 % RV - Doppler TAPSE 1.65 cm RV S' 17 cm/s Right Atrium RA vol index 4CH (MOD) 19.48 mL/m2 EST RAP 3 (more content not included)... Normal [facility] GLUCOSE POCon 04-01-2022 Glucose [Mass/Vol] 199 mg/dL High 70 - 99 mg/dL [facility] Interpretation and review of laboratory results Abnormal [facility] POC Sample Type CAPBL [facility] Test performed at address of the patient encounter. [facility] Glucose [Mass/Vol] 129 mg/dL High 70 - 99 mg/dL [facility] Interpretation and review of laboratory results Abnormal [facility] POC Sample Type CAPBL [facility] Test performed at address of the patient encounter. [facility] Glucose [Mass/Vol] 176 mg/dL High 70 - 99 mg/dL [facility] Interpretation and review of laboratory results Abnormal [facility] POC Sample Type CAPBL [facility] Test performed at address of the patient encounter. [facility] Glucose [Mass/Vol] 159 mg/dL High 70 - 99 mg/dL [facility] Interpretation and review of laboratory results Abnormal [facility] POC Sample Type CAPBL [facility] Test performed at address of the patient encounter. [facility] HEMOGLOBIN [id number] By: Stephen Sneed on 04-01-2022 Average glucose Estimated from glycated hemoglobin (Bld) [Mass/Vol] 148 mg/dL [facility] HbA1c (Bld) [Mass fraction] 6.8 % High 4.7 - 5.6 % [facility] Interpretation and review of laboratory results Abnormal [facility] HEMOGLOBIN A1Con 04-01-2022 Glucose [Mass/Vol] 148 mg/dL Normal [facility] Comment on above: Performed By: #### C HM6 #### [facility] (DEFAULT) [address] [place] [address] HbA1c (Bld) [Mass fraction] 6.8 % High 4.7-5.[address] [facility] Comment on above: Performed By: #### C HM6 #### [facility] (DEFAULT) [address] [place] [id number] LIPID PANEL W CALCULATED LDL on 04-01-2022 Cholesterol [Mass/Vol] 238 mg/dL High NINF - 200 mg/dL [facility] Comment on above: [<200 mg/dL: Desirab le] [200-239 mg/dL: Borderline High] [>239 mg/dL: High] Cholesterol in HDL [Mass/Vol] 40 mg/dL 40 - PINF mg/dL [facility] Comment on above: [<40 mg/dL: Low (Hig h Risk)] [>59 mg/dL: High (Low Risk)] Cholesterol in HDL [Mass/Vol] 198 mg/dL High NINF - 130 mg/dL [facility] Cholesterol in LDL [Mass/Vol] 169 mg/dL High 0 - 99 mg/dL [facility] Comment on above: [<100 mg/dL: Optimal ] [100-129 mg/dL: Near Optimal] [130-159 mg/dL: Borderline High] [160-189 mg/dL: High] [>189 mg/dL: Very High] Cholesterol.total/Cho lesterol in HDL [Mass ratio] 6.0 {ratio} High NINF - 4.5 [facility] Interpretation and review of laboratory results Abnormal [facility] Triglyceride [Mass/Vol] 143 mg/dL NINF - 150 mg/dL [facility] Comment on above: [<150 mg/dL: Desirab le] [150-199 mg/dL: Borderline] [200-499 mg/dL: High] [>500 mg/dL: Very High] [facility] Calculated LDL Cholesterol 169 mg/dL High 0-[address] [facility] Comment on above: Result Comment: [<10 0 mg/dL: Optimal] [100-129 mg/dL: Near Optimal] [130-159 mg/dL: Borderline High] [160-189 mg/dL: High] [>189 mg/dL: Very High] Performed By: #### C HM7 #### [facility] (DEFAULT) [address] [address] Cholesterol [Mass/Vol] 238 mg/dL High <[address] [facility] Comment on above: Result Comment: [<20 0 mg/dL: Desirable] [200-239 mg/dL: Borderline High] [>239 mg/dL: High] Performed By: #### C HM7 #### [facility] (DEFAULT) [address] [place] [phone] Cholesterol in HDL [Mass/Vol] 40 mg/dL Normal >=[address] [facility] Comment on above: Result Comment: [<40 mg/dL: Low (High Risk)] [>59 mg/dL: High (Low Risk)] Performed By: #### C HM7 #### [facility] (DEFAULT) [address] [place] [address] Non HDL Cholesterol 198 mg/dL High <[address] [facility] Comment on above: Performed By: #### C HM7 #### [facility] (DEFAULT) [address] [place] [address] Total Cholesterol/HDL Ratio 6.0 High <4.[address] [facility] Comment on above: Performed By: #### C HM7 #### [facility] (DEFAULT) [address] [place] [address] Triglyceride [Mass/Vol] 143 mg/dL Normal <[address] [facility] Comment on above: Result Comment: [<15 0 mg/dL: Desirable] [150-199 mg/dL: Borderline] [200-499 mg/dL: High] [>500 mg/dL: Very High] Performed By: #### C HM7 #### [facility] (DEFAULT) [address] [place] [address] PT,INR,PTTon 04-01-2022 aPTT Coag (Bld) [Time] 52.8 s High 24.0-34.[address] [facility] Comment on above: Performed By: #### X M #### [facility] (DEFAULT) [address] [place] [address] INR Coag (PPP) [Relative time] 1.0 {INR} Normal 0.9-1.[address] [facility] Comment on above: Performed By: #### X M #### [facility] (DEFAULT) [address] [place] [id number] PT Coag (PPP) [Time] 13.7 s Normal 11.9-14.[address] [facility] Comment on above: Performed By: #### X M #### [facility] (DEFAULT) [address] [place] [address] PT,INR,PTTOrdered By: Hieu Mccain on 04-01-2022 aPTT Coag (PPP) [Time] 52.8 s High [facility] INR Coag (Bld) [Relative time] 1.0 {INR} 0.9 - 1.1 [facility] Interpretation and review of laboratory results Abnormal [facility] PT Coag (PPP) [Time] 13.7 s [facility] PTTon 04-01-2022 aPTT Coag (Bld) [Time] 81.3 s High 24.0-34.[address] [facility] Comment on above: Order Comment: Acute Coronary Syndrome (ACS): Initial Evaluation and Management: [email or web address] Performed By: #### L [id number] #### [facility] (DEFAULT) [address] [address] aPTT Coag (PPP) [Time] 81.3 s High [facility] Interpretation and review of laboratory results Abnormal [facility] SCREEN: MRSA/MSSAOrdered By: Jacobo Louis on 04-01-2022 Interpretation and review of laboratory results Normal [facility] Methicillin Resistant S. Aureus By Pcr Negative Negative [facility] Staphylococcus Aureus By Pcr Negative Negative [facility] This test was performed using a real time PCR assay. Results should be interpreted in conjunction with other clinical and laboratory findings. A positive result does not necessarily indicate the presence of viable organism. This test should not be used as a test of cure. For E-swab specimens, this test was developed and its performance characteristics determined by the Clinical Microbiology Laboratory at [facility]. It has not been cleared or approved by the FDA.The laboratory is regulated under CLIA as qualified to perform high-complexity testing. This test is used for clinical purposes. It should not be regarded as investigational or for research. [facility] SCREEN: MRSA/MSSAon 04-01-19 Methicillin Resistant S. Aureus By Pcr Negative Normal Negative [facility] Comment on above: Order Comment: Colle ct with an ESWAB - Anterior Nares for MRSA + MSSA This test was performed using a real time PCR assay. Results should be interpreted in conjunction with other clinical and laboratory findings. A positive result does not necessarily indicate the presence of viable organism. This test should not be used as a test of cure. For E-swab specimens, this test was developed and its performance characteristics determined by the Clinical Microbiology Laboratory at [facility]. It has not been cleared or approved by the FDA.The laboratory is regulated under CLIA as qualified to perform high-complexity testing. This test is used for clinical purposes. It should not be regarded as investigational or for research. Performed By: #### S CRSB #### [facility] (DEFAULT) [address] [address] Staphylococcus Aureus By Pcr Negative Normal Negative [facility] Comment on above: Order Comment: Colle ct with an ESWAB - Anterior Nares for MRSA + MSSA This test was performed using a real time PCR assay. Results should be interpreted in conjunction with other clinical and laboratory findings. A positive result does not necessarily indicate the presence of viable organism. This test should not be used as a test of cure. For E-swab specimens, this test was developed and its performance characteristics determined by the Clinical Microbiology Laboratory at [facility]. It has not been cleared or approved by the FDA.The laboratory is regulated under CLIA as qualified to perform high-complexity testing. This test is used for clinical purposes. It should not be regarded as investigational or for research. Performed By: #### S CRSB #### [facility] (DEFAULT) [address] [address] CHEM 6 (LYTES, BUN CREA)on 0 03-31-2022 Anion gap [Moles/Vol] 11 mmol/L Normal 7-17 [facility] Comment on above: Performed By: #### C HM6 #### [facility] (DEFAULT) [address] [address] Chloride [Moles/Vol] 105 mmol/L Normal 98-[address] [facility] Comment on above: Performed By: #### C HM6 #### [facility] (DEFAULT) [address] [place] [address] CO2 [Moles/Vol] 27 mmol/L Normal 21-31 [facility] Comment on above: Performed By: #### C HM6 #### [facility] (DEFAULT) [address] [place] [address] Creatinine [Mass/Vol] 0.69 mg/dL Normal 0.50-1.20 [facility] Comment on above: Performed By: #### C HM6 #### [facility] (DEFAULT) [address] [place] [address] GFR/1.73 sq M.predicted among non-blacks MDRD (S/P/Bld) [Vol rate/Area] 84 mL/min/{1.73_m2} Normal >=[address] [facility] Comment on above: Result Comment: Repo rted eGFR is based on the CKD-EPI 2020 equation using creatinine, age, and sex. Performed By: #### C HM6 #### [facility] (DEFAULT) [address] [place] [address] Potassium [Moles/Vol] 4.3 mmol/L Normal 3.5-5.0 [facility] Comment on above: Performed By: #### C HM6 #### [facility] (DEFAULT) [address] [place] [address] Sodium [Moles/Vol] 139 mmol/L Normal 135-145 [facility] Comment on above: Performed By: #### C HM6 #### [facility] (DEFAULT) [address] [place] [address] Urea nitrogen [Mass/Vol] 26 mg/dL High 7-[address] [facility] Comment on above: Performed By: #### C HM6 #### [facility] (DEFAULT) [address] [place] [address] Urea nitrogen/Creatinine [Mass ratio] 38 mg/mg Normal [facility] Comment on above: Performed By: #### C HM6 #### [facility] (DEFAULT) [address] [place] [id number] Anion gap [Moles/Vol] 11 mmol/L 7 - 17 mmol/L [facility] Chloride [Moles/Vol] 105 mmol/L 98 - 10 8 mmol/L [facility] CO2 [Moles/Vol] 27 mmol/L 21 - 31 mmol/L [facility] Creatinine [Mass/Vol] 0.69 mg/dL 0.50 - 1.20 mg/dL [facility] GFR/1.73 sq M.predicted CKD-EPI (S/P/Bld) [Vol rate/Area] 84 - PINF [facility] Comment on above: Reported eGFR is bas ed on the CKD-EPI 2020 equation using creatinine, age, and sex. Interpretation and review of laboratory results Abnormal [facility] Potassium [Moles/Vol] 4.3 mmol/L 3.5 - 5.0 mmol/L [facility] Sodium [Moles/Vol] 139 mmol/L 135 - 145 mmol/L [facility] Urea nitrogen [Mass/Vol] 26 mg/dL High 7 - 25 mg/dL [facility] Urea nitrogen/Creatinine [Mass ratio] 38 mg/mg [facility] CONTINUOUS CARDIAC MONITORIN G STRIPon 03-31-2022 [facility] GLUCOSE POCon 03-31-2022 Glucose [Mass/Vol] 136 mg/dL High 70 - 99 mg/dL [facility] Interpretation and review of laboratory results Abnormal [facility] POC Sample Type CAPBL [facility] Test performed at address of the patient encounter. [facility] Glucose [Mass/Vol] 105 mg/dL High 70 - 99 mg/dL [facility] Interpretation and review of laboratory results Abnormal [facility] POC Sample Type CAPBL [facility] Test performed at address of the patient encounter. [facility] Glucose [Mass/Vol] 120 mg/dL High 70 - 99 mg/dL [facility] Interpretation and review of laboratory results Abnormal [facility] POC Sample Type CAPBL [facility] Test performed at address of the patient encounter. [facility] Glucose [Mass/Vol] 180 mg/dL High 70 - 99 mg/dL [facility] Interpretation and review of laboratory results Abnormal [facility] POC Sample Type CAPBL [facility] Test performed at address of the patient encounter. [facility] PTTon 03-31-2022 aPTT Coag (Bld) [Time] 74.4 s High 24.0-34.[address] [facility] Comment on above: Order Comment: Acute Coronary Syndrome (ACS): Initial Evaluation and Management: [email or web address] Performed By: #### L [id number] #### [facility] (DEFAULT) [address] [address] aPTT Coag (PPP) [Time] 74.4 s High [facility] Interpretation and review of laboratory results Abnormal [facility] aPTT Coag (Bld) [Time] 60.3 s High 24.0-34.[address] [facility] Comment on above: Order Comment: After initiation a PTT should be checked every 6 hours from time of last dose change or, if dose has not changed, 6 hours after last PTT result posted.? The frequent monitoring should occur until PTT in goal range for two consecutive lab draws without dose changes at which time PTTs may be checked no less frequently than every 12 hours.? If dose requires a change, PTT should be monitored at least every 6 hours until titration is no longer indicated, then as directed above.? If PTT above goal range refer to medication administration instructions. Performed By: #### X M #### [facility] (DEFAULT) [address] [place] [address] aPTT Coag (PPP) [Time] 60.3 s High [facility] Interpretation and review of laboratory results Abnormal [facility] aPTT Coag (Bld) [Time] 83.9 s High 24.0-34.[address] [facility] Comment on above: Order Comment: After initiation a PTT should be checked every 6 hours from time of last dose change or, if dose has not changed, 6 hours after last PTT result posted.? The frequent monitoring should occur until PTT in goal range for two consecutive lab draws without dose changes at which time PTTs may be checked no less frequently than every 12 hours.? If dose requires a change, PTT should be monitored at least every 6 hours until titration is no longer indicated, then as directed above.? If PTT above goal range refer to medication administration instructions. Performed By: #### T YPEC #### [facility] (DEFAULT) [address] [address] aPTT Coag (PPP) [Time] 83.9 s High [facility] Interpretation and review of laboratory results Abnormal [facility] US.doppler Carotid arteries - bilateralOrdered By: Ryley Allison on 03-31-2022 [facility] Work Phone: CONTINUOUS CARDIAC MONITORIN G STRIPon 03-30-2022 [facility] GLUCOSE POCon 03-30-2022 Glucose [Mass/Vol] 192 mg/dL High 70 - 99 mg/dL [facility] Interpretation and review of laboratory results Abnormal [facility] POC Sample Type CAPBL [facility] Test performed at address of the patient encounter. [facility] Glucose [Mass/Vol] 221 mg/dL High 70 - 99 mg/dL [facility] Interpretation and review of laboratory results Abnormal [facility] POC Sample Type CAPBL [facility] Test performed at address of the patient encounter. [facility] Glucose [Mass/Vol] 184 mg/dL High 70 - 99 mg/dL [facility] Comment on above: Notified RNread back Interpretation and review of laboratory results Abnormal [facility] POC Sample Type CAPBL [facility] Test performed at address of the patient encounter. [facility] Glucose [Mass/Vol] 167 mg/dL High 70 - 99 mg/dL [facility] Comment on above: Notified RNread back Interpretation and review of laboratory results Abnormal [facility] POC Sample Type CAPBL [facility] Test performed at address of the patient encounter. [facility] Glucose [Mass/Vol] 171 mg/dL High 70 - 99 mg/dL [facility] Interpretation and review of laboratory results Abnormal [facility] POC Sample Type CAPBL [facility] Test performed at address of the patient encounter. [facility] PTTon 03-30-2022 aPTT Coag (Bld) [Time] 81.9 s High 24.0-34.[address] [facility] Comment on above: Order Comment: After initiation a PTT should be checked every 6 hours from time of last dose change or, if dose has not changed, 6 hours after last PTT result posted.? The frequent monitoring should occur until PTT in goal range for two consecutive lab draws without dose changes at which time PTTs may be checked no less frequently than every 12 hours.? If dose requires a change, PTT should be monitored at least every 6 hours until titration is no longer indicated, then as directed above.? If PTT above goal range refer to medication administration instructions. Performed By: #### P TT ####[facility] (DEFAULT)[address] [place] [address] aPTT Coag (PPP) [Time] 81.9 s High [facility] Interpretation and review of laboratory results Abnormal [facility] aPTT Coag (Bld) [Time] 56.4 s High 24.0-34.[address] [facility] Comment on above: Order Comment: After initiation a PTT should be checked every 6 hours from time of last dose change or, if dose has not changed, 6 hours after last PTT result posted.? The frequent monitoring should occur until PTT in goal range for two consecutive lab draws without dose changes at which time PTTs may be checked no less frequently than every 12 hours.? If dose requires a change, PTT should be monitored at least every 6 hours until titration is no longer indicated, then as directed above.? If PTT above goal range refer to medication administration instructions. Performed By: #### X M #### [facility] (DEFAULT) [address] [address] aPTT Coag (PPP) [Time] 56.4 s High [facility] Interpretation and review of laboratory results Abnormal [facility] aPTT Coag (Bld) [Time] 57.0 s High 24.0-34.[address] [facility] Comment on above: Order Comment: After initiation a PTT should be checked every 6 hours from time of last dose change or, if dose has not changed, 6 hours after last PTT result posted.? The frequent monitoring should occur until PTT in goal range for two consecutive lab draws without dose changes at which time PTTs may be checked no less frequently than every 12 hours.? If dose requires a change, PTT should be monitored at least every 6 hours until titration is no longer indicated, then as directed above.? If PTT above goal range refer to medication administration instructions. Result Comment: Spec imen integrity checked. Results inconsistent with previous results Performed By: #### C HM6 #### [facility] (DEFAULT) [address] [address] PTTOrdered By: Ralf meza on 03-30-2022 aPTT Coag (PPP) [Time] 57.0 s High [facility] Comment on above: Specimen integrity nancy jolly. Results inconsistent with previous results Interpretation and review of laboratory results Abnormal [facility] US.doppler Carotid arteries - bilateralon 03-30-2022 Radiology Study observation (narrative) [facility] XR PANOREX (TEETH)on 023 XR PANOREX (TEETH) EXAM: XR PANOREX (TEETH), 03/30/2022 13:01 PM CLINICAL INDICATIONS: evaluate for dental disease prior to cardiac procedure RELEVANT CLINICAL HISTORY: COMPARISON: No prior studies available for comparison. TECHNIQUE: Single Panorex image obtained. FINDINGS/IMPRESSION: Nasal septum is midline. No air-fluid levels in the maxillary sinuses. No acute fracture or malalignment of the mandible. Multiple missing teeth. Dental fillings in several of the remaining teeth. No appreciable large dental caries or periapical radiolucencies at the remaining dentition. Normal [facility] XR Teeth Bitewing Viewson FINDINGS/IMPRESSION: Nasal septum is midline. No air-fluid levels in the maxillary sinuses. No acute fracture or malalignment of the mandible. Multiple missing teeth. Dental fillings in several of the remaining teeth. No appreciable large dental caries or periapical radiolucencies at the remaining dentition. OLOGY EXAM: XR PANOREX (TEETH), 03/30/2022 13:01 PM CLINICAL INDICATIONS: evaluate for dental disease prior to cardiac procedure RELEVANT CLINICAL HISTORY: COMPARISON: No prior studies available for comparison. TECHNIQUE: Single Panorex image obtained. RADIOLOGY Domenic Stoner MD - 03/30/2022 EXAM: XR PANOREX (TEETH), 03/30/2022 13:01 PM CLINICAL INDICATIONS: evaluate for dental disease prior to cardiac procedure RELEVANT CLINICAL HISTORY: COMPARISON: No prior studies available for comparison. TECHNIQUE: Single Panorex image obtained. IMPRESSION FINDINGS/IMPRESSION: Nasal septum is midline. No air-fluid levels in the maxillary sinuses. No acute fracture or malalignment of the mandible. Multiple missing teeth. Dental fillings in several of the remaining teeth. No appreciable large dental caries or periapical radiolucencies at the remaining dentition. [facility] Radiology Study observation (narrative) [facility] XR Teeth Bitewing ViewsOrder ed By: Domenic Stoner on 03-30-2022 [facility] Work Phone: CALCIUMon 03-29-2022 Calcium [Mass/Vol] 9.1 mg/dL Normal 8.6-10.5 [facility] Comment on above: Performed By: #### S CRSB #### [facility] (DEFAULT) [address] [place] [address] Calcium [Mass/Vol] 9.1 mg/dL 8.6 - 10. 5 mg/dL [facility] CBC AND ELECTRONIC DIFFon Basophils (Bld) [#/Vol] 0.06 10*3/uL Normal 0.00-0.[address] [facility] Comment on above: Performed By: #### L [id number] ####[facility] (DEFAULT)[address] [place] [address] Basophils/100 WBC (Bld) 0.8 % Normal [facility] Comment on above: Performed By: #### L [id number] ####[facility] (DEFAULT)[address] [place] [address] DIFF STATUS Electronic Differential Normal [facility] Comment on above: Performed By: #### L [id number] ####[facility] (DEFAULT)[address] [place] [address] Eosinophils (Bld) [#/Vol] 0.32 10*3/uL Normal 0.00-0.[address] [facility] Comment on above: Performed By: #### L [id number] ####[facility] (DEFAULT)[address] [place] [address] Eosinophils/100 WBC (Bld) 4.2 % Normal [facility] Comment on above: Performed By: #### L [id number] ####[facility] (DEFAULT)[address] [place] [address] Hematocrit (Bld) [Volume fraction] 39.9 % Normal 34.9-44.[address] [facility] Comment on above: Performed By: #### L [id number] ####[facility] (DEFAULT)[address] [facility] [place] [address] Hemoglobin (Bld) [Mass/Vol] 13.1 g/dL Normal 11.4-15.[address] [facility] Comment on above: Performed By: #### L [id number] ####[facility] (DEFAULT)[address] [place], [place] [address], [place] [address] Immature Grans % 0.4 % Normal [facility] Comment on above: Performed By: #### L [id number] ####[facility] (DEFAULT)[address] [place] [address], [place] [address] Immature Grans Absolute < Normal <=0.[address] [facility] Comment on above: Performed By: #### L [id number] ####[facility] (DEFAULT)[address] [place] [address], [place] [address] Lymphocytes (Bld) [#/Vol] 2.52 10*3/uL Normal 1.16-3.[address] [facility] Comment on above: Performed By: #### L [id number] ####[facility] (DEFAULT)[address] [place] [address], [place] [address] Lymphocytes/100 WBC (Bld) 33.2 % Normal [facility] Comment on above: Performed By: #### L [id number] ####[facility] (DEFAULT)[address] [place] [address], [place] [address] MCV (RBC) [Entitic vol] 85.8 fL Normal 79.6-97.[address] [facility] Comment on above: Performed By: #### L [id number] ####[facility] (DEFAULT)[address] [facility] [place] [address] Mean Cell Hgb 28.2 pg Normal 25.9-33.[address] [facility] Comment on above: Performed By: #### L [id number] ####[facility] (DEFAULT)[address] [place] [address] Mean Cell Hgb Conc 32.8 g/dL Normal 31.4-35.9 [facility] Comment on above: Performed By: #### L [id number] ####[facility] (DEFAULT)[address] [place] [address] Monocytes (Bld) [#/Vol] 0.84 10*3/uL Normal 0.22-0.[address] [facility] Comment on above: Performed By: #### L [id number] ####[facility] (DEFAULT)[address] [facility] [place] [place] [address] Monocytes/100 WBC (Bld) 11.1 % Normal [facility] Comment on above: Performed By: #### L [id number] ####[facility] (DEFAULT)[address] [facility] [place] [address] Nucleated RBC 0.0 /100 WBC Normal <=0.2 [facility] Comment on above: Performed By: #### L [id number] ####[facility] (DEFAULT)[address] [facility] [place] [address] Platelet mean volume (Bld) [Entitic vol] 10.4 fL Normal 8.5-12.[address] [facility] Comment on above: Performed By: #### L [id number] ####[facility] (DEFAULT)[address] [facility] [place] [place] [address] Platelets (Bld) [#/Vol] 267 10*3/uL Normal 150-[address] [facility] Comment on above: Performed By: #### L [id number] ####[facility] (DEFAULT)[address] [facility] [place] [address] RBC (Bld) [#/Vol] 4.65 10*6/uL Normal 3.91-5.[address] [facility] Comment on above: Performed By: #### L [id number] ####[facility] (DEFAULT)[address] [facility] [place] [address] RBC Distribution 13.0 % Normal 10.8-14.9 [facility] Comment on above: Performed By: #### L [id number] ####[facility] (DEFAULT)[address] [facility] [place] [address] Segs + Bands Auto 50.3 % Normal [facility] Comment on above: Performed By: #### L [id number] ####[facility] (DEFAULT)[address] [facility] [place] [address] Segs + Bands,Absolute Auto 3.81 K/uL Normal 1.64-7.[address] [facility] Comment on above: Performed By: #### L [id number] ####[facility] (DEFAULT)[address] [facility] [place] [address] WBC (Bld) [#/Vol] 7.58 10*3/uL Normal 3.99-11.[address] [facility] Comment on above: Performed By: #### L [id number] ####[facility] (DEFAULT)[address] [place] [address] Basophils (Bld) [#/Vol] 0.06 10*3/uL 0.00 - 0.15 K/uL [facility] Basophils/100 WBC (Bld) 0.8 % [facility] Differential cell count method Nom (Bld) Electronic Differential [facility] Eosinophils (Bld) [#/Vol] 0.32 10*3/uL 0.00 - 0.42 K/uL [facility] Eosinophils/100 WBC (Bld) 4.2 % [facility] Erythrocyte distribution width (RBC) [Ratio] 13.0 % 10.8 - 14.9 % [facility] Hematocrit (Bld) [Volume fraction] 39.9 % 34.9 - 44.3 % [facility] Hemoglobin (Bld) [Mass/Vol] 13.1 g/dL 11.4 - 15.2 g/dL [facility] Immature granulocytes (Bld) [#/Vol] K/uL NINF - 0.08 K/uL [facility] Immature granulocytes/100 WBC (Bld) 0.4 % [facility] Lymphocytes (Bld) [#/Vol] 2.52 10*3/uL 1.16 - 3.51 K/uL [facility] Lymphocytes/100 WBC (Bld) 33.2 % [facility] MCH (RBC) [Entitic mass] 28.2 pg 25.9 - 33.9 pg [facility] MCHC (RBC) [Mass/Vol] 32.8 g/dL 31.4 - 35.9 g/dL [facility] MCV (RBC) [Entitic vol] 85.8 fL 79.6 - 97.7 fL [facility] Monocytes (Bld) [#/Vol] 0.84 10*3/uL 0.22 - 0.87 K/uL [facility] Monocytes/100 WBC (Bld) 11.1 % [facility] Neutrophils (Bld) [#/Vol] 3.81 10*3/uL 1.64 - 7.28 K/uL [facility] Nucleated RBC/100 WBC (Bld) [Ratio] 0.0 % [facility] Platelet mean volume (Bld) [Entitic vol] 10.4 fL 8.5 - 12.2 fL [facility] Platelets (Bld) [#/Vol] 267 10*3/uL 150 - 393 K/uL [facility] RBC (Bld) [#/Vol] 4.65 10*6/uL [facility] Segmented neutrophils/100 WBC (Bld) 50.3 % [facility] WBC (Bld) [#/Vol] 7.58 10*3/uL 3.99 - 11. 19 K/uL [facility] CBC,PLATELETSon 03-29-2022 Hematocrit (Bld) [Volume fraction] 36.3 % Normal 34.9-44.[address] [facility] Comment on above: Performed By: #### C [facility] #### [facility] (DEFAULT) [address] [address] Hemoglobin (Bld) [Mass/Vol] 12.0 g/dL Normal 11.4-15.[address] [facility] Comment on above: Performed By: #### C HM7 #### [facility] (DEFAULT) [address] [address] MCV (RBC) [Entitic vol] 86.4 fL Normal 79.6-97.[address] [facility] Comment on above: Performed By: #### C HM7 #### [facility] (DEFAULT) [address] [address] Mean Cell Hgb 28.6 pg Normal 25.9-33.[address] [facility] Comment on above: Performed By: #### C HM7 #### [facility] (DEFAULT) [address] [address] Mean Cell Hgb Conc 33.1 g/dL Normal 31.4-35.9 [facility] Comment on above: Performed By: #### C HM7 #### [facility] (DEFAULT) [address] [address] Platelet mean volume (Bld) [Entitic vol] 10.5 fL Normal 8.5-12.[address] [facility] Comment on above: Performed By: #### C HM7 #### [facility] (DEFAULT) [address] [address] Platelets (Bld) [#/Vol] 233 10*3/uL Normal 150-[address] [facility] Comment on above: Performed By: #### C HM7 #### [facility] (DEFAULT) [address] [address] RBC (Bld) [#/Vol] 4.20 10*6/uL Normal 3.91-5.[address] [facility] Comment on above: Performed By: #### C HM7 #### [facility] (DEFAULT) [address] [place] [address] RBC Distribution 12.9 % Normal 10.8-14.9 [facility] Comment on above: Performed By: #### C HM7 #### [facility] (DEFAULT) [address] [place] [address] WBC (Bld) [#/Vol] 7.07 10*3/uL Normal 3.99-11.[address] [facility] Comment on above: Performed By: #### C HM7 #### [facility] (DEFAULT) [address] [place] [address] Erythrocyte distribution width (RBC) [Ratio] 12.9 % 10.8 - 14.9 % [facility] Hematocrit (Bld) [Volume fraction] 36.3 % 34.9 - 44.3 % [facility] Hemoglobin (Bld) [Mass/Vol] 12.0 g/dL 11.4 - 15.2 g/dL [facility] Interpretation and review of laboratory results Normal [facility] MCH (RBC) [Entitic mass] 28.6 pg 25.9 - 33.9 pg [facility] MCHC (RBC) [Mass/Vol] 33.1 g/dL 31.4 - 35.9 g/dL [facility] MCV (RBC) [Entitic vol] 86.4 fL 79.6 - 97.7 fL [facility] Platelet mean volume (Bld) [Entitic vol] 10.5 fL 8.5 - 12.2 fL [facility] Platelets (Bld) [#/Vol] 233 10*3/uL 150 - 393 K/uL [facility] RBC (Bld) [#/Vol] 4.20 10*6/uL [facility] WBC (Bld) [#/Vol] 7.07 10*3/uL 3.99 - 11. 19 K/uL [facility] CHEM 7 (LYTES,BUN,CREA,GLUC) on 03-29-2022 Anion gap [Moles/Vol] 12 mmol/L Normal 7-17 [facility] Comment on above: Performed By: #### S CRSB #### [facility] (DEFAULT) [address] [place] [address] Chloride [Moles/Vol] 104 mmol/L Normal 98-[address] [facility] Comment on above: Performed By: #### S CRSB #### [facility] (DEFAULT) [address] [place] [address] CO2 [Moles/Vol] 27 mmol/L Normal 21-31 [facility] Comment on above: Performed By: #### S CRSB #### [facility] (DEFAULT) [address] [place] [address] Creatinine [Mass/Vol] 0.75 mg/dL Normal 0.50-1.20 [facility] Comment on above: Performed By: #### S CRSB #### [facility] (DEFAULT) [address] [place] [address] GFR/1.73 sq M.predicted among non-blacks MDRD (S/P/Bld) [Vol rate/Area] 77 mL/min/{1.73_m2} Normal >=[address] [facility] Comment on above: Result Comment: Repo rted eGFR is based on the CKD-EPI 2020 equation using creatinine, age, and sex. Performed By: #### S CRSB #### [facility] (DEFAULT) [address] [place] [address] Glucose [Mass/Vol] 263 mg/dL High 70-99 [facility] Comment on above: Performed By: #### S CRSB #### [facility] (DEFAULT) [address] [place] [address] Osmolality [Osmolality] 308 mosm/kg High 278-[address] [facility] Comment on above: Performed By: #### S CRSB #### [facility] (DEFAULT) [address] [place] [address] Potassium [Moles/Vol] 4.0 mmol/L Normal 3.5-5.0 [facility] Comment on above: Performed By: #### S CRSB #### [facility] (DEFAULT) [address] [place] [address] Sodium [Moles/Vol] 139 mmol/L Normal 135-145 [facility] Comment on above: Performed By: #### S CRSB #### [facility] (DEFAULT) [address] [place] [address] Urea nitrogen [Mass/Vol] 32 mg/dL High 7-[address] [facility] Comment on above: Performed By: #### S CRSB #### [facility] (DEFAULT) [address] [place] [id number] Urea nitrogen/Creatinine [Mass ratio] 43 mg/mg Normal [facility] Comment on above: Performed By: #### S CRSB #### [facility] (DEFAULT) [address] [place] [address] Anion gap [Moles/Vol] 12 mmol/L 7 - 17 mmol/L [facility] Chloride [Moles/Vol] 104 mmol/L 98 - 10 8 mmol/L [facility] CO2 [Moles/Vol] 27 mmol/L 21 - 31 mmol/L [facility] Creatinine [Mass/Vol] 0.75 mg/dL 0.50 - 1.20 mg/dL [facility] GFR/1.73 sq M.predicted CKD-EPI (S/P/Bld) [Vol rate/Area] 77 - PINF [facility] Comment on above: Reported eGFR is bas ed on the CKD-EPI 2020 equation using creatinine, age, and sex. Glucose [Mass/Vol] 263 mg/dL High 70 - 99 mg/dL [facility] Osmolality Calc [Osmolality] 308 High [facility] Potassium [Moles/Vol] 4.0 mmol/L 3.5 - 5.0 mmol/L [facility] Sodium [Moles/Vol] 139 mmol/L 135 - 145 mmol/L [facility] Urea nitrogen [Mass/Vol] 32 mg/dL High 7 - 25 mg/dL [facility] Urea nitrogen/Creatinine [Mass ratio] 43 mg/mg [facility] CONTINUOUS CARDIAC MONITORIN G STRIPon 03-29-2022 [facility] GLUCOSE POCon 03-29-2022 Glucose [Mass/Vol] 148 mg/dL High 70 - 99 mg/dL [facility] Interpretation and review of laboratory results Abnormal [facility] POC Sample Type CAPBL [facility] Test performed at address of the patient encounter. [facility] Glucose [Mass/Vol] 179 mg/dL High 70 - 99 mg/dL [facility] Interpretation and review of laboratory results Abnormal [facility] POC Sample Type CAPBL [facility] Test performed at address of the patient encounter. [facility] Glucose [Mass/Vol] 145 mg/dL High 70 - 99 mg/dL [facility] Interpretation and review of laboratory results Abnormal [facility] POC Sample Type CAPBL [facility] Test performed at address of the patient encounter. [facility] HEPATIC FUNCTION PANELon Albumin [Mass/Vol] 3.6 g/dL Normal 3.5-5.0 [facility] Comment on above: Performed By: #### S CRSB #### [facility] (DEFAULT) [address] [address] ALP [Catalytic activity/Vol] 66 U/L Normal 32-[address] [facility] Comment on above: Performed By: #### S CRSB #### [facility] (DEFAULT) [address] [address] ALT [Catalytic activity/Vol] 29 U/L Normal 9-[address] [facility] Comment on above: Performed By: #### S CRSB #### [facility] (DEFAULT) [address] [place] [address] AST [Catalytic activity/Vol] 24 U/L Normal 10-[address] [facility] Comment on above: Performed By: #### S CRSB #### [facility] (DEFAULT) [address] [place] [address] Bilirubin [Mass/Vol] 0.4 mg/dL Normal <1.[address] [facility] Comment on above: Performed By: #### S CRSB #### [facility] (DEFAULT) [address] [place] [address]77 Bilirubin Direct < Normal <0.3 [facility] Comment on above: Performed By: #### S CRSB #### [facility] (DEFAULT) [address] [place] [address] Protein [Mass/Vol] 5.8 g/dL Low 6.4-8.3 [facility] Comment on above: Performed By: #### S CRSB #### [facility] (DEFAULT) [address] [place] [address] Albumin [Mass/Vol] 3.6 g/dL 3.5 - 5.0 g/dL [facility] ALP [Catalytic activity/Vol] 66 U/L 32 - 126 U/L [facility] ALT [Catalytic activity/Vol] 29 U/L 9 - 48 U/L [facility] AST [Catalytic activity/Vol] 24 U/L 10 - 39 U/L [facility] Bilirubin [Mass/Vol] 0.4 mg/dL NINF - 1.5 mg/dL [facility] Bilirubin.direct [Mass/Vol] mg/dL NINF - 0.3 mg/dL [facility] Protein [Mass/Vol] 5.8 g/dL Low 6.4 - 8.3 g/dL [facility] HIGH SENSITIVITY TROPONIN I - SINGLE ORDERon 03-29-2022 hs-Troponin I 73 ng/L High <[address] [facility] Comment on above: Order Comment: Acute Coronary Syndrome (ACS): Initial Evaluation and Management:[email or web address]/Guide [email or web address]%[email or web address] Performed By: #### L [email or web address] ####[facility] (DEFAULT)[address] [address] hs-Troponin I 101 ng/L High <[address] [facility] Comment on above: Order Comment: Colle ct with an ESWAB - Anterior Nares for MRSA + MSSA This test was performed using a real time PCR assay. Results should be interpreted in conjunction with other clinical and laboratory findings. A positive result does not necessarily indicate the presence of viable organism. This test should not be used as a test of cure. For E-swab specimens, this test was developed and its performance characteristics determined by the Clinical Microbiology Laboratory at [facility]. It has not been cleared or approved by the FDA.The laboratory is regulated under CLIA as qualified to perform high-complexity testing. This test is used for clinical purposes. It should not be regarded as investigational or for research. Performed By: #### S CRSB #### [facility] (DEFAULT) [address] [place] [address] HIGH SENSITIVITY TROPONIN I - SINGLE ORDEROrdered By: Maegan Recio on 03-29-2022 Interpretation and review of laboratory results Abnormal [facility] Troponin I.cardiac DL <= 0.01 ng/mL [Mass/Vol] 73 ng/L High NINF - 34 ng/L [facility] HIGH SENSITIVITY TROPONIN I - SINGLE ORDEROrdered By: Steve Barry on 03-29-2022 Interpretation and review of laboratory results Abnormal [facility] Troponin I.cardiac DL <= 0.01 ng/mL [Mass/Vol] 101 ng/L High NINF - 34 ng/L [facility] MAGNESIUMon 03-29-2022 Magnesium [Mass/Vol] 2.0 mg/dL Normal 1.6-2.[address] [facility] Comment on above: Order Comment: Medic ine Electrolyte Replacement Protocol: Check prior to replacing potassium. Recheck magnesium level eight (8) hours after each 4g Magnesium Sulfate dose if most recent magnesium level is less than 1.3 mg/dL. ?Draw with next day morning labs after replacements for previous magnesium levels between 1.3-1.9 mg/dL. Performed By: #### C HM6 #### [facility] (DEFAULT) [address] [place] [address] Magnesium [Mass/Vol] 2.0 mg/dL 1.6 - 2 .6 mg/dL [facility] Magnesium [Mass/Vol] 2.1 mg/dL Normal 1.6-2.[address] [facility] Comment on above: Performed By: #### S CRSB #### [facility] (DEFAULT) [address] [place] [address] Magnesium [Mass/Vol] 2.1 mg/dL 1.6 - 2 .6 mg/dL [facility] No Panel Informationon 03-29 Interpretation and review of laboratory results Normal [facility] Interpretation and review of laboratory results Normal [facility] Interpretation and review of laboratory results Abnormal [facility] PHOSPHATE, INORGANICon 03-29 Phosphorous 3.9 mg/dL Normal 2.2-4.[address] [facility] Comment on above: Performed By: #### S CRSB #### [facility] (DEFAULT) [address] [place] [address] Phosphate [Mass/Vol] 3.9 mg/dL 2.2 - 4 .6 mg/dL [facility] POTASSIUMon 03-29-2022 Potassium [Moles/Vol] 4.6 mmol/L Normal 3.5-5.0 [facility] Comment on above: Order Comment: Medic ine Electrolyte Replacement Protocol: Recheck eight hours after each dose of Potassium chloride (60 mEq or 80 mEq) if most recent Potassium is less than 3.5 mmol/L. ?Draw with next day morning labs after 40 mEq dose of Potassium chloride. Performed By: #### C HM6 #### [facility] (DEFAULT) [address] [place] [address] Potassium [Moles/Vol] 4.6 mmol/L 3.5 - 5.0 mmol/L [facility] PT,INR,PTTon 03-29-2022 aPTT Coag (Bld) [Time] 28.1 s Normal 24.0-34.[address] [facility] Comment on above: Performed By: #### C HM6 #### [facility] (DEFAULT) [address] [place] [address] INR Coag (PPP) [Relative time] 1.0 {INR} Normal 0.9-1.[address] [facility] Comment on above: Performed By: #### C HM6 #### [facility] (DEFAULT) [address] [place] [address] PT Coag (PPP) [Time] 12.8 s Normal 11.9-14.[address] [facility] Comment on above: Performed By: #### C HM6 #### [facility] (DEFAULT) [address] [place] [address] aPTT Coag (PPP) [Time] 28.1 s [facility] INR Coag (Bld) [Relative time] 1.0 {INR} 0.9 - 1.1 [facility] Interpretation and review of laboratory results Normal [facility] PT Coag (PPP) [Time] 12.8 s [facility] PTTon 03-29-2022 aPTT Coag (Bld) [Time] 27.1 s Normal 24.0-34.[address] [facility] Comment on above: Order Comment: Colle ct with an ESWAB - Anterior Nares for MRSA + MSSA This test was performed using a real time PCR assay. Results should be interpreted in conjunction with other clinical and laboratory findings. A positive result does not necessarily indicate the presence of viable organism. This test should not be used as a test of cure. For E-swab specimens, this test was developed and its performance characteristics determined by the Clinical Microbiology Laboratory at [facility]. It has not been cleared or approved by the FDA.The laboratory is regulated under CLIA as qualified to perform high-complexity testing. This test is used for clinical purposes. It should not be regarded as investigational or for research. Performed By: #### S CRSB #### [facility] (DEFAULT) [address] [address] aPTT Coag (PPP) [Time] 27.1 s [facility] Interpretation and review of laboratory results Normal [facility] TROPONIN 1 HOURon 03-29-2022 1 Hour hs-Troponin 77 ng/L High <34 [facility] Comment on above: Order Comment: Acute Coronary Syndrome (ACS): Initial Evaluation and Management:[email or web address]/Guide [email or web address]%[email or web address] Performed By: #### C HM6 #### [facility] (DEFAULT) [address] [place] [address] Delta hs-Troponin I 10 ng/L Normal <=[address] [facility] Comment on above: Order Comment: Acute Coronary Syndrome (ACS): Initial Evaluation and Management:[email or web address]/Documents/Guide [email or web address]%20Coronary%[email or web address]#[email or web address] Performed By: #### C HM6 #### [facility] (DEFAULT) [address] [address] 1 Hour hs-Troponin 77 ng/L High NINF - 34 ng/L [facility] Delta hs-Troponin I 10 ng/L NINF - 1 5 ng/L [facility] Interpretation and review of laboratory results Abnormal [facility] TROPONIN I INITIALon 022 hs-Troponin I 67 ng/L High <[address] [facility] Comment on above: Order Comment: Acute Coronary Syndrome (ACS): Initial Evaluation and Management:[email or web address]/Documents/Guide [email or web address]%20Coronary%[email or web address]#[email or web address] Performed By: #### C HM6 #### [facility] (DEFAULT) [address] [place] [address] Interpretation and review of laboratory results Abnormal [facility] Troponin I.cardiac DL <= 0.01 ng/mL [Mass/Vol] 67 ng/L High NINF - 34 ng/L [facility] CONTINUOUS CARDIAC MONITORIN G STRIPOrdered By: Unassigned Pacs on 03-28-2022 [facility] Work Phone: Glucose Glucometer (BldC) [M ass/Vol]Ordered By: Dr. Sands on 03-28-2022 Glucose [Mass/Vol] 194 mg/dL 74-106 [facility] Comment on above: MANAGEMENT OF PATIEN T CARE PER NURSING PROTOCOL Absolute lymphocyte countOrd ered By: Dr. Malin on 03-26-2022 Lymphocytes Auto (Unsp spec) [#/Vol] 1.66 10*3/uL 0.83-4.51 [facility] Basophil percentageOrdered B y: Dr. Malin on 03-26-2022 Basophils/100 WBC (Bld) 0.9 % 0-1 [facility] Chloride [Moles/Vol] 105 mmol/L 98-107 [facility] Eosinophils/100 WBC (Bld) 4.6 % 0-5 [facility] Glucose [Mass/Vol] 166 mg/dL 74-106 [facility] Comment on above: Fasting Glucose resu lt greater than or equal to 126 mg/dL suggests DIABETES MELLITUS per A.D.A. criteria. Neutrophils (Bld) [#/Vol] 4.3 10*3/uL 2.0-7.7 [facility] Neutrophils/100 WBC (Bld) 60.8 % 47-70 [facility] Potassium [Moles/Vol] 4.1 mmol/L 3.5-5.1 [facility] Sodium [Moles/Vol] 139 mmol/L 136-145 [facility] WBC (Bld) [#/Vol] 7.0 10*3/uL 4.4-11.0 [facility] Blood erythrocytes count (nu mber/volume)Ordered By: Dr. Malin on 03-26-2022 RBC (Bld) [#/Vol] 4.86 10*6/uL 4.2-5.4 [facility] Blood hemoglobin measurement (mass/volume)Ordered By: Dr. Malin on 03-26-2022 Hemoglobin (Bld) [Mass/Vol] 14.1 g/dL 12.0-15.0 [facility] Blood lymphocytes/100 leukoc ytesOrdered By: Dr. Malin on 03-26-2022 Lymphocytes/100 WBC (Bld) 23.6 % 19-41 [facility] Blood monocytes/100 leukocyt esOrdered By: Dr. Malin on 03-26-2022 Monocytes/100 WBC (Bld) 9.8 % 0-10 [facility] Blood platelet mean volumeOr dered By: Dr. Malin on 03-26-2022 Platelet mean volume (Bld) [Entitic vol] 10.6 fL 6.2-12.0 [facility] Determination of erythrocyte mean corpuscular volume (MCV)Ordered By: Dr. Malin on 03-26-2022 MCV (RBC) [Entitic vol] 86.6 fL 81-99 [facility] Hematocrit Auto (Bld) [Volum e fraction]Ordered By: Dr. Malin on 03-26-2022 Hematocrit (Bld) [Volume fraction] 42.1 % 37-47 [facility] Laboratory - Chemistry and C hemistry - challengeOrdered By: Dr. Malin on 03-26-2022 CO2 [Moles/Vol] 27.0 mmol/L 21.0-32.0 [facility] Urea nitrogen/Creatinine [Mass ratio] 40.5 mg/mg 10-20 [facility] Laboratory - Hematology and Cell countsOrdered By: Dr. Malin on 03-26-2022 Erythrocyte distribution width (RBC) [Entitic vol] 39.9 fL 35.1-43.9 [facility] Erythrocyte distribution width (RBC) [Ratio] 12.7 % 11.6-14.6 [facility] Immature granulocytes/100 WBC (Bld) 0.300 % 0.0-0.9 [facility] Comment on above: IG% - Immature Granu locytes (promyelocytes, myelocytes and metamyelocytes) > 1% indicates that a LEFT SHIFT is Present. MCH (RBC) [Entitic mass] 29.0 pg 27.0-32.0 [facility] Nucleated RBC/100 WBC (Bld) [Ratio] 0 % 0-5 [facility] MCHC Auto (RBC) [Mass/Vol]Or dered By: Dr. Malin on 03-26-2022 MCHC (RBC) [Mass/Vol] 33.5 g/dL 32-36 [facility] No Panel InformationOrdered By: Dr. Malin on 03-26-2022 Estimated Creatinine Clearance Calc 38.86 ml/min [facility] Estimated GFR (MDRD) Amer 137 mL/min >60 [facility] Comment on above: GFR Calc Estimated GFR (MDRD) Non-Af Amer 113 mL/min >60 [facility] Comment on above: Non- GFR Calc Platelets bldOrdered By: Dr. Malni on 03-26-2022 Platelets (Bld) [#/Vol] 234 10*3/uL 150-450 [facility] Serum or plasma calcium neris urement (mass/volume)Ordered By: Dr. Malin on 03-26-2022 Calcium [Mass/Vol] 9.1 mg/dL 8.5-10.1 [facility] Serum or plasma creatinine m easurement (mass/volume)Ordered By: Dr. Malin on 03-26-2022 Creatinine [Mass/Vol] 0.54 mg/dL 0.55-1.02 [facility] Comment on above: The validity of the calculated GFR & GFRAA in patients over 70 years has not been determined. Clinical correlation is essential. Serum or plasma urea nitroge n measurement (mass/volume)Ordered By: Dr. Malin on 03-26-2022 Urea nitrogen [Mass/Vol] 22 mg/dL 7-18 [facility] Thin prep Papanicolaou smear with manual screeningOrdered By: Dr. Malin on 03-26-2022 Thin prep Papanicolaou smear with manual screening 7 5-15 [facility] Laboratory - Chemistry and C hemistry - challengeOrdered By: Dr. Malin on 03-24-2022 Magnesium [Mass/Vol] 2.1 mg/dL 1.6-2.6 [facility] No Panel InformationOrdered By: Dr. Davison on 03-24-2022 Troponin I High Sensitivity 982 pg/mL 3.0-54.0 [facility] Comment on above: Critical Result(s) C alled at: 00:43:48 03/25/2022 by: Johnathon Boyer TO Neftali ROME RN (U) Results read back by same. Please Note: New Test Units and Gender Specific Reference Ranges. For more information see Policy Stat Procedure [place] High Sensitivity Troponin (TNIH) and attachments. Basophil percentageOrdered B y: Dr. Callejas on 03-22-2022 Bilirubin [Mass/Vol] 0.90 mg/dL 0.20-1.00 [facility] Comment on above: For patients on eltr ombopag therapy, use of Dimension [place] TBIL is not recommended. Protein [Mass/Vol] 5.6 g/dL 6.4-8.2 [facility] Laboratory - Chemistry and C hemistry - challengeOrdered By: Dr. Callejas on 03-22-2022 ALP [Catalytic activity/Vol] 47 U/L 45-117 [facility] ALT [Catalytic activity/Vol] 30 U/L 13-56 [facility] Globulin (S) [Mass/Vol] 2.8 g/dL 2.2-4.2 [facility] Serum or plasma albumin neris urement (mass/volume)Ordered By: Dr. Callejas on 03-22-2022 Albumin [Mass/Vol] 2.8 g/dL 3.2-5.0 [facility] Serum or plasma albumin/glob ulin mass ratioOrdered By: Dr. Callejas on 03-22-2022 Albumin/Globulin [Mass ratio] 1.0 {ratio} 0.9-2.4 [facility] Thin prep Papanicolaou smear with manual screeningOrdered By: Dr. Callejas on 03-22-2022 Thin prep Papanicolaou smear with manual screening 36 U/L 15-37 [facility] Base excessOrdered By: Dr. Danuta lawson on 03-21-2022 Base excess Calc (BldV) [Moles/Vol] 2 mmol/L -2-2 [facility] Basophil percentageOrdered B y: Dr. Callejas on 03-21-2022 Basophil percentage 25.9 mmol/L - [facility] Basophils/100 WBC (Bld) 91 % 95-99 [facility] CO2 (BldA) [Partial pressure ]Ordered By: Dr. Callejas on 03-21-2022 CO2 (Bld) [Partial pressure] 36.1 mm[Hg] 35-45 [facility] HCO3 (BldA) [Moles/Vol]Order ed By: Dr. Callejas on 03-21-2022 HCO3 (Bld) [Moles/Vol] 30 mmol/L - [facility] Laboratory - Chemistry and C hemistry - challengeOrdered By: Dr. Callejas on 03-21-2022 CO2 [Moles/Vol] 31 mmol/L 23- [facility] No Panel InformationOrdered By: Dr. Callejas on 03-21-2022 Bed Mix Venous Bld PCO2 at Pat Temp 44.9 mmHg 41-51 [facility] Blood Gas Specimen Type RUPERT [facility] Venous Blood Base Excess 5 mmol/L -1.0-3.5 [facility] Blood Gas Total CO2 27 mmol/L [facility] Oxygen (BldA) [Partial press ure]Ordered By: Dr. Callejas on 03-21-2022 Oxygen (Bld) [Partial pressure] 57 mmHG 75-100 [facility] PO2 venousOrdered By: Dr. Cherelle love on 03-21-2022 Oxygen (BldV) [Partial pressure] 33 mm[Hg] 25-40 [facility] Vital signsOrdered By: Dr. Danuta lawson on 03-21-2022 Oxygen saturation in Blood 64 % 50-70 [facility] pH measurementOrdered By: Dr Shekhar Callejas on 03-21-2022 pH (Unsp spec) 7.43 [pH] 7.32-7.42 [facility] pH (Unsp spec) 7.46 [pH] 7.35-7.45 [facility] Absolute lymphocyte counton 03-20-2022 Lymphocytes Auto (Unsp spec) [#/Vol] 5.34 10*3/uL 0.83-4.51 [facility] Work Phone: [phone] Base excesson 03-20-2022 Base excess Calc (BldV) [Moles/Vol] -3 mmol/L -2-2 [facility] Work Phone: [phone] Basophil percentageon 2021 Basophil percentage 22.6 mmol/L 22- [facility] Work Phone: Basophils/100 WBC (Bld) 97 % 95-99 [facility] Work Phone: [phone] Basophils/100 WBC (Bld) 0.6 % 0-1 [facility] Work Phone: [phone] Chloride [Moles/Vol] 106 mmol/L 98-107 [facility] Work Phone: Eosinophils/100 WBC (Bld) 1.8 % 0-5 [facility] Work Phone: Glucose [Mass/Vol] 368 mg/dL 74-106 [facility] Work Phone: Comment on above: Glucose result great er than or equal to 200 mg/dLsuggests DIABETES MELLITUS per A.D.A. criteria. Neutrophils (Bld) [#/Vol] 7.2 10*3/uL 2.0-7.7 [facility] Work Phone: Neutrophils/100 WBC (Bld) 52.0 % 47-70 [facility] Work Phone: [phone] Potassium [Moles/Vol] 4.0 mmol/L 3.5-5.1 [facility] Work Phone: [phone] Sodium [Moles/Vol] 138 mmol/L 136-145 [facility] Work Phone: [phone] WBC (Bld) [#/Vol] 13.7 10*3/uL 4.4-11.0 [facility]: Blood erythrocytes count (nu mber/volume)on 03-20-2022 RBC (Bld) [#/Vol] 5.55 10*6/uL 4.2-5.4 [facility] Work Phone: Blood hemoglobin measurement (mass/volume)on 03-20-2022 Hemoglobin (Bld) [Mass/Vol] 15.6 g/dL 12.0-15.0 [facility] Work Phone: Blood lymphocytes/100 leukoc yteson 03-20-2022 Lymphocytes/100 WBC (Bld) 38.9 % 19-41 [facility] Work Phone: Blood monocytes/100 leukocyt eson 03-20-2022 Monocytes/100 WBC (Bld) 6.2 % 0-10 [facility] Work Phone: Blood platelet mean volumeon 03-20-2022 Platelet mean volume (Bld) [Entitic vol] 10.2 fL 6.2-12.0 [facility] Work Phone: CO2 (BldA) [Partial pressure ]on 03-20-2022 CO2 (Bld) [Partial pressure] 42.7 mm[Hg] 35-45 [facility] Work Phone: Determination of erythrocyte mean corpuscular volume (MCV)on 03-20-2022 MCV (RBC) [Entitic vol] 87.9 fL 81-99 [facility] Work Phone: Hematocrit Auto (Bld) [Volum e fraction]on 03-20-2022 Hematocrit (Bld) [Volume fraction] 48.8 % 37-47 [facility] Work Phone: Influenza virus A and B and SARS-CoV-2 (COVID-19) Ag panel - Upper respiratory specimOrdered By: Dr. Espinoza on 03-20-2022 SARS-CoV-2 (COVID-19) RNA NICHOLAS+probe Ql (Resp) [facility] Laboratory - Chemistry and C hemistry - challengeon 03-20-2022 CO2 [Moles/Vol] 26.0 mmol/L 21.0-32.0 [facility] Work Phone: Urea nitrogen/Creatinine [Mass ratio] 25.3 mg/mg 10-20 [facility] Work Phone: Laboratory - Chemistry and C hemistry - challengeOrdered By: Dr. Espinoza on 03-20-2022 Natriuretic peptide B (Bld) [Mass/Vol] 549.6 pg/mL 0-100 [facility] Laboratory - Hematology and Cell countson 03-20-2022 Erythrocyte distribution width (RBC) [Entitic vol] 41.7 fL 35.1-43.9 [facility] Work Phone: Erythrocyte distribution width (RBC) [Ratio] 12.9 % 11.6-14.6 [facility] Work Phone: Immature granulocytes/100 WBC (Bld) 0.500 % 0.0-0.9 [facility] Work Phone: Comment on above: IG% - Immature Granu locytes (promyelocytes, myelocytes and metamyelocytes) > 1% indicates that a LEFT SHIFT is Present. MCH (RBC) [Entitic mass] 28.1 pg 27.0-32.0 [facility] Work Phone: Nucleated RBC/100 WBC (Bld) [Ratio] 0 % 0-5 [facility] Work Phone: MCHC Auto (RBC) [Mass/Vol]on 03-20-2022 MCHC (RBC) [Mass/Vol] 32.0 g/dL 32-36 [facility] Work Phone: No Panel Informationon 03-20 Troponin I High Sensitivity 4675 pg/mL 3.0-54.0 [facility] Work Phone: Comment on above: Critical Result(s) C alled at: 12:30:02 03/20/2022 by: Maria C. Jamshid Rosario RN (ER). Results read back by same. Please Note: New Test Units and Gender Specific Reference Ranges. For more information see Policy Stat Procedure [place] High Sensitivity Troponin (TNIH) and attachments. Blood Gas Specimen Type ART [facility] Work Phone: Blood Gas Total CO2 24 mmol/L [facility] Work Phone: Estimated Creatinine Clearance Calc 50.06 ml/min [facility] Work Phone: Estimated GFR (MDRD) Amer 84 mL/min >60 [facility] Work Phone: Comment on above: GFR Calc Estimated GFR (MDRD) Non-Af Amer 69 mL/min >60 [facility] Work Phone: Comment on above: Non- GFR Calc No Panel InformationOrdered By: Dr. Espinoza on 03-20-2022 Bedside Blood Gas PEEP 10 [facility] Blood Gas Oxygen Percent 60 [facility] Blood Gas Sample Site R Brach [facility] Blood Gas Vent Mode NIV [facility] Oxygen Delivery Device BiPAP [facility] Reactive Lymphocytes 1+ [facility] Oxygen (BldA) [Partial press ure]on 03-20-2022 Oxygen (Bld) [Partial pressure] 93 mmHG 75-100 [facility] Work Phone: Platelets bldon 03-20-2022 Platelets (Bld) [#/Vol] 317 10*3/uL 150-450 [facility] Work Phone: Serum or plasma calcium neris urement (mass/volume)on 03-20-2022 Calcium [Mass/Vol] 8.9 mg/dL 8.5-10.1 [facility] Work Phone: Serum or plasma creatinine m easurement (mass/volume)on 03-20-2022 Creatinine [Mass/Vol] 0.83 mg/dL 0.55-1.02 [facility] Work Phone: Comment on above: The validity of the calculated GFR & GFRAA in patients over 70 years has not been determined. Clinical correlation is essential. Serum or plasma urea nitroge n measurement (mass/volume)on 03-20-2022 Urea nitrogen [Mass/Vol] 21 mg/dL 7-18 [facility] Work Phone: Thin prep Papanicolaou smear with manual screeningon 03-20-2022 Thin prep Papanicolaou smear with manual screening 6 5-15 [facility] Work Phone: pH measurementon 03-20-2022 pH (Unsp spec) 7.33 [pH] 7.35-7.45 [facility] Work Phone: Lab Report: Lipid Profileon 01-19-2017 Cholesterol in HDL mass conc 59 mg/dL Invalid Interpretation Code [facility] Work Phone: [phone] Cholesterol in LDL mass conc 87 mg/dL Invalid Interpretation Code 0-130 [facility] Work Phone: [phone] Cholesterol mass conc 171 mg/dL Invalid Interpretation Code 200 [facility] Work Phone: [phone] Lipoprotein.pre-beta mass conc 25 mg/dL Invalid Interpretation Code 5-40 [facility] Work Phone: [phone] Triglyceride mass conc 124 mg/dL Invalid Interpretation Code [facility] Work Phone: [phone] Lab Report: Liver Profileon 01-19-2017 Albumin mass conc 3.7 g/dL Invalid Interpretation Code 3.4-5.0 [facility] Work Phone: [phone] Alkaline phosphatase (ALP) 73 U/L Invalid Interpretation Code 45-117 [facility] Work Phone: [phone] ALP enzyme act/vol (Bld) 73 U/L Invalid Interpretation Code 45-117 [facility] Work Phone: [phone] ALT enzyme act/vol 39 U/L Invalid Interpretation Code 12-78 [facility] Work Phone: [phone] AST enzyme act/vol 27 U/L Invalid Interpretation Code 15-37 [facility] Work Phone: [phone] Bilirubin mass conc 1.00 mg/dL Invalid Interpretation Code 0.20-1.00 [facility] Work Phone: [phone] Bilirubin.direct mass conc 0.24 mg/dL Invalid Interpretation Code 0.00-0.30 [facility] Work Phone: [phone] Globulin Calculated mass conc (S) 3.1 g/dL Invalid Interpretation Code 2.2-4.2 [facility] Work Phone: [phone] Protein mass conc 6.8 g/dL Invalid Interpretation Code 6.4-8.2 [facility] Work Phone: [phone] Chart Maintenanceon 11-28-19 17 Left ventricular Ejection fraction 60 % Invalid Interpretation Code [facility] Work Phone: [phone] Office Visiton 11-27-2016 Documentation of current medications (procedure) Done Invalid Interpretation Code [facility] Work Phone: [phone] Protein mass conc Done Invalid Interpretation Code [facility] Work Phone: [phone] Lab Report: Basic Metabolic Profile (BMP)on 11-17-2016 Anion gap 5 mmol/L Invalid Interpretation Code 5-15 [facility] Work Phone: [phone] Anion gap 4 molar conc 5 Invalid Interpretation Code 5-15 [facility] Work Phone: [phone] Anion gap molar conc 5 mmol/L 5-15 [facility] Work Phone: [phone] BUN/Creatinine Ratio 18.3 RATIO Invalid Interpretation Code 10-20 [facility] Work Phone: [phone] Calcium 9.0 mg/dL Invalid Interpretation Code 8.5-10.1 [facility] Work Phone: [phone] Chloride 94 mmol/L Low 98-107 [facility] Work Phone: [phone] CO2 30.0 mmol/L Invalid Interpretation Code 21.0-32.0 [facility] Work Phone: [phone] CO2 ppres (BldV) 30.0 mmol/L Invalid Interpretation Code 21.0-32.0 [facility] Work Phone: [phone] Creatinine 0.66 mg/dL Invalid Interpretation Code 0.55-1.02 [facility] Work Phone: [phone] eGFR (non-black) 111 mL/min/{1.73_m2} Invalid Interpretation Code >60 [facility] Work Phone: [phone] eGFR (non-black) 92 mL/min/{1.73_m2} Invalid Interpretation Code >60 [facility] Work Phone: [phone] EST GFR - AA 111 mL/min Invalid Interpretation Code >60 [facility] Work Phone: [phone] Glucose 148 mg/dL High 70-110 [facility] Work Phone: [phone] Glucose mass conc 148 mg/dL High 70-110 [facility] Work Phone: [phone] Potassium 4.4 mmol/L Invalid Interpretation Code 3.5-5.1 [facility] Work Phone: [phone] Sodium 129 mmol/L Low 136-145 [facility] Work Phone: [phone] Urea nitrogen 12 mg/dL Invalid Interpretation Code 7-18 [facility] Work Phone: [phone] Lab Report: Lipid Profileon 11-17-2016 Cholesterol 283 mg/dL High 200 [facility] Work Phone: [phone] HDL Cholesterol 52 mg/dL Invalid Interpretation Code [facility] Work Phone: [phone] LDL Cholesterol 201 mg/dL High 0-130 [facility] Work Phone: [phone] Triglyceride 149 mg/dL Invalid Interpretation Code [facility] Work Phone: [phone] very low density lipoproteins 30 mg/dL Invalid Interpretation Code 5-40 [facility] Work Phone: [phone] Lab Report: Liver Profileon 11-17-2016 Alanine aminotransferase (ALT) 29 U/L Invalid Interpretation Code 12-78 [facility] Work Phone: [phone] Albumin 4.0 g/dL Invalid Interpretation Code 3.4-5.0 [facility] Work Phone: [phone] Alkaline phosphatase (ALP) 74 U/L Invalid Interpretation Code 45-117 [facility] Work Phone: [phone] ALP enzyme act/vol (Bld) 74 U/L 45-117 [facility] Work Phone: [phone] Aspartate aminotransferase (AST) 15 U/L Invalid Interpretation Code 15-37 [facility] Work Phone: [phone] Bilirubin (direct) 0.25 mg/dL Invalid Interpretation Code 0.00-0.30 [facility] Work Phone: [phone] Bilirubin (total) 1.10 mg/dL High 0.20-1.00 [facility] Work Phone: [phone] Globulin 3.1 g/dL Invalid Interpretation Code 2.3-3.5 [facility] Work Phone: [phone] Globulin mass conc (S) 3.1 g/dL 2.3-3.5 [facility] Work Phone: [phone] Protein 7.1 g/dL Invalid Interpretation Code 6.4-8.2 [facility] Work Phone: [phone] Office Visit: [facility] 08-07-19 17 Documentation of current medications (procedure) Done Invalid Interpretation Code [facility] Work Phone: [phone] Fall risk assessment No Invalid Interpretation Code [facility] Work Phone: [phone] Protein mass conc Done [facility] Work Phone: [phone] Tobacco smoking status NHIS Never smoker Invalid Interpretation Code [facility] Work Phone: [phone] Tobacco use [facility] Never smoker Invalid Interpretation Code [facility] Work Phone: [phone] Replaced Document: [employer] 08-06-2016 EKG QRS axis 32 deg Invalid Interpretation Code [facility] Phone: [phone] electrocardiogram interpretation Sinus Rhythm -Nonspecific ST depression -Nondiagnostic. ABNORMAL Invalid Interpretation Code [facility] Phone: [phone] GE use only - for [employer] import when terms are not otherwise specified 428 ms Invalid Interpretation Code [facility] Work Phone: [phone] Interpretation Sinus Rhythm -Nonspecific ST depression -Nondiagnostic. ABNORMAL Invalid Interpretation Code [facility] Work Phone: [phone] P [place] 57 deg Invalid Interpretation Code [facility] Work Phone: [phone] P wave axis, electrocardiogram 57 deg Invalid Interpretation Code [facility] Work Phone: [phone] DC Interval 128 ms Invalid Interpretation Code [facility] Work Phone: [phone] DC interval, electrocardiogram 128 ms Invalid Interpretation Code [facility] Work Phone: [phone] Pulse (Heart Rate) 66 /min Invalid Interpretation Code [facility] Work Phone: [phone] QRS axis, electrocardiogram 32 deg Invalid Interpretation Code [facility] Work Phone: [phone] QRS Duration 90 ms Invalid Interpretation Code [facility] Work Phone: [phone] QRS duration, electrocardiogram 90 ms Invalid Interpretation Code [facility] Work Phone: [phone] QT Interval new path ms Invalid Interpretation Code [facility] Work Phone: [phone] QT interval, electrocardiogram new path ms Invalid Interpretation Code [facility] Work Phone: [phone] QTc [place] 428 ms Invalid Interpretation Code [facility] Work Phone: [phone] T [place] 42 deg Invalid Interpretation Code [facility] Work Phone: [phone] T wave axis, electrocardiogram 42 deg Invalid Interpretation Code [facility] Work Phone: [phone] Influenza virus A and B and SARS-CoV-2 (COVID-19) Ag panel - Upper respiratory specim SARS-CoV-2 (COVID-19) RNA NICHOLAS+probe Ql (Resp) [facility] Work Phone: Vital Signs Date Time Vital Sign Value Performing Clinician Facility 12-06-2024 09:28-0400 Diastolic blood pressure 78 mm[Hg] Dr. Murphy Burton DO Work Phone: [facility] 12-06-2024 09:28-0400 Systolic blood pressure 161 mm[Hg] Dr. Murphy Burton DO Work Phone: [facility] 12-06-2024 09:17-0400 Heart rate 71 /min Dr. Murphy Burton DO Work Phone: [facility] 12-06-2024 08:55-0400 Body height 149.[address] Murphy Burton DO Work Phone: [facility] 12-06-2024 08:55-0400 Body mass index (BMI) [Ratio] 27.4 kg/m2 Dr. Murphy Burton DO Work Phone: [facility] 12-06-2024 08:55-0400 Body weight 61.[address] Murphy Burton DO Work Phone: [facility] 12-06-2024 08:55-0400 Respiratory rate 16 /min Dr. Murphy Burton DO Work Phone: [facility] 10-04-2024 16:00-0400 Body height 149.[address] Murphy Burton DO Work Phone: [facility] 10-04-2024 16:00-0400 Body mass index (BMI) [Ratio] 26.9 kg/m2 Dr. Murphy Burton DO Work Phone: [facility] 10-04-2024 16:00-0400 Body weight 60.[address] Murphy Burton DO Work Phone: [facility] 10-04-2024 16:00-0400 Diastolic blood pressure 55 mm[Hg] Dr. Murphy Burton DO Work Phone: [facility] 10-04-2024 16:00-0400 Heart rate 64 /min Dr. Murphy Burton DO Work Phone: [facility] 10-04-2024 16:00-0400 Respiratory rate 16 /min Dr. Murphy Burton DO Work Phone: [facility] 10-04-2024 16:00-0400 Systolic blood pressure 105 mm[Hg] Dr. Murphy Burton DO Work Phone: [facility] 05-29-2022 14:08-0500 Body height 149.9 cm Jacinta Sebastian APRN-GLOBAL REGULATORY AFFAIRS MANAGER Work Phone: [facility] 05-29-2022 14:08-0500 Body mass index (BMI) [Ratio] 27.81 kg/m2 Jacinta Sebastian GAME PROTECTOR-GLOBAL REGULATORY AFFAIRS MANAGER Work Phone: [facility] 05-29-2022 14:08-0500 Body weight 62.5 kg Jacinta Sebastian GAME PROTECTOR-GLOBAL REGULATORY AFFAIRS MANAGER Work Phone: [facility] 05-29-2022 14:08-0500 Diastolic blood pressure 63 mm[Hg] Jacinta Jaz GAME PROTECTOR-GLOBAL REGULATORY AFFAIRS MANAGER Work Phone: [facility] 05-29-2022 14:08-0500 Heart rate 65 /min Jacintatreva Sebastian GAME PROTECTOR-GLOBAL REGULATORY AFFAIRS MANAGER Work Phone: [facility] 05-29-2022 14:08-0500 Systolic blood pressure 133 mm[Hg] Jacintatreva Sebastian GAME PROTECTOR-GLOBAL REGULATORY AFFAIRS MANAGER Work Phone: [facility] 04-27-2022 11:20-0500 SaO2% (BldA) [Mass fraction] 93 % Patricia Schrader MD, PhD Work Phone: [facility] 04-27-2022 11:19-0500 Body temperature 97.3 [degF] Patricia Schrader MD, PhD Work Phone: [facility] 04-27-2022 11:19-0500 Diastolic blood pressure 63 mm[Hg] Patricia Schrader MD, PhD Work Phone: [facility] 04-27-2022 11:19-0500 Heart rate 63 /min Patricia Schrader MD, PhD Work Phone: [facility] 04-27-2022 11:19-0500 Respiratory rate 16 /min Patricia Schrader MD, PhD Work Phone: [facility] 04-27-2022 11:19-0500 Systolic blood pressure 133 mm[Hg] Patricia Schrader MD, PhD Work Phone: [facility] 04-27-2022 06:22-0500 Body mass index (BMI) [Ratio] 27.83 kg/m2 Patricia Schrader MD, PhD Work Phone: [facility] 04-27-2022 06:22-0500 Body weight 62.5 kg Patricia Schrader MD, PhD Work Phone: [facility] 04-25-2022 14:30-0500 Body height 149.9 cm Patricia Schrader MD, PhD Work Phone: [facility] 04-20-2022 01:07-0500 Diastolic blood pressure 53 mm[Hg] Dr. Murphy Burton Work Phone: 7(216)325-859736 [place] [address] 04-20-2022 01:07-0500 Heart rate 66 /min Dr. Murphy Burton Work Phone: 2(190)834-288336 [place] [address] 04-20-2022 01:07-0500 Inhaled oxygen flow rate 5 L/min Dr. Murphy Burton Work Phone: 8(953)995-431764 [address] 04-20-2022 01:07-0500 Respiratory rate 17 /min Dr. Murphy Burton Work Phone: 4(257)665-515064 [address] 04-20-2022 01:07-0500 SaO2% (BldA) [Mass fraction] 99 % Dr. Murphy Burton Work Phone: 2(138)884-018864 [address] 04-20-2022 01:07-0500 Systolic blood pressure 153 mm[Hg] Dr. Murphy Burton Work Phone: 9(469)075-196164 [address] 04-19-2022 23:45-0500 Body temperature 97.7 [degF] Dr. Murphy Burton Work Phone: 1(862)264-281236 [place] [address] 04-19-2022 22:15-0500 Inhaled oxygen concentration 40 % Dr. Murphy Burton Work Phone: 0(659)643-494764 [address] 04-19-2022 21:53-0500 Body height 151.[address] Murphy Burton Work Phone: 2(413)334-667164 [address] 04-19-2022 21:53-0500 Body mass index (BMI) [Ratio] 28.5 kg/m2 Dr. Murphy Burton Work Phone: 8(044)712-321364 [address] 04-19-2022 21:53-0500 Body weight 65.[address] Murphy Burton Work Phone: [facility] 04-17-2022 06:00-0500 Body temperature 97.9 [degF] Dr. Murphy Burton Work Phone: 2(213)807-727158 [place] [address] 04-17-2022 06:00-0500 Diastolic blood pressure 55 mm[Hg] Dr. Murphy Burton Work Phone: 2(299)795-671758 [place] [address] 04-17-2022 06:00-0500 Heart rate 66 /min Dr. Murphy Burton Work Phone: 9(081)264-369158 [place] [address] 04-17-2022 06:00-0500 Respiratory rate 20 /min Dr. Murphy Burton Work Phone: 0(784)461-866958 [place] [address] 04-17-2022 06:00-0500 SaO2% (BldA) [Mass fraction] 94 % Dr. Murphy Burton Work Phone: 5(300)077-211158 [place] [address] 04-17-2022 06:00-0500 Systolic blood pressure 140 mm[Hg] Dr. Murphy Burton Work Phone: 4(447)186-141058 [place] [address] 04-17-2022 00:00-0500 Inhaled oxygen flow rate 2 L/min Dr. Murphy Burton Work Phone: 3(015)897-239058 [place] [address] 04-16-2022 22:38-0500 Inhaled oxygen concentration 60 % Dr. Murphy Burton Work Phone: 7(767)353-857258 [place] [address] 04-16-2022 20:57-0500 Body height 152.[address] Murphy Burton Work Phone: 3(579)991-317358 [place] [address] 04-16-2022 20:57-0500 Body mass index (BMI) [Ratio] 28.7 kg/m2 Dr. Murphy Burton Work Phone: 7(190)669-386358 [place] [address] 04-16-2022 20:57-0500 Body weight 66.[address] Murphy Burton Work Phone: 4(234)203-073158 [place] [address] 04-05-2022 15:00-0500 Body temperature 97.81 [degF] Sabas Petersen MD Work Phone: [facility] 04-05-2022 15:00-0500 Diastolic blood pressure 71 mm[Hg] Sabas Petersen MD Work Phone: 9(802)165-882940 [place] [address] Comment on above: rn notified, MistyTR 04-05-2022 15:00-0500 Heart rate 68 /min Sabas Petersen MD Work Phone: [facility] 04-05-2022 15:00-0500 Respiratory rate 16 /min Sabas Petersen MD Work Phone: [facility] 04-05-2022 15:00-0500 SaO2% (BldA) [Mass fraction] 95 % Sabas Petersen MD Work Phone: [facility] 04-05-2022 15:00-0500 Systolic blood pressure 163 mm[Hg] Sabas Petersen MD Work Phone: 1(812)145-353940 [place] [address] Comment on above: rn notified, MistyTR 04-05-2022 06:01-0500 Body mass index (BMI) [Ratio] 27 kg/m2 Sabas Petersen MD Work Phone: [facility] 04-05-2022 06:01-0500 Body weight 60.65 kg Sabas Petersen MD Work Phone: [facility] Comment on above: standing weight 04-01-2022 12:00-0500 Body height 149.9 cm Sabas Petersen MD Work Phone: [facility] 03-28-2022 13:09-0500 Body temperature 98.1 [degF] Dr. uMrphy Burton Work Phone: [facility] 03-28-2022 13:09-0500 Diastolic blood pressure 45 mm[Hg] Dr. Murphy Burton Work Phone: [facility] 03-28-2022 13:09-0500 Heart rate 63 /min Dr. Murphy Burton Work Phone: 8(608)392-963136 [place] [address] 03-28-2022 13:09-0500 Respiratory rate 18 /min Dr. Murphy Burton Work Phone: 1(025)766-325758 [place] [address] 03-28-2022 13:09-0500 SaO2% (BldA) [Mass fraction] 95 % Dr. Murphy Burton Work Phone: 1(236)571-540364 [address] 03-28-2022 13:09-0500 Systolic blood pressure 128 mm[Hg] Dr. Murphy Burton Work Phone: 3(003)015-403364 [address] 03-28-2022 04:45-0500 Body weight [address] Murphy Burton Work Phone: 1(876)162-489158 [place] [address] 03-25-2022 16:40-0500 Inhaled oxygen flow rate 1 L/min Dr. Murphy Burton Work Phone: 7(080)284-243258 [place] [address] 03-24-2022 13:33-0500 Body height 149.[address] Murphy Burton Work Phone: 2(948)978-640964 [address] Work Phone: 03-20-2022 15:30-0500 Body mass index (BMI) [Ratio] 26.2 kg/m2 Dr. Murphy Burton Work Phone: 0(769)727-742864 [address] 03-20-2022 14:02-0500 Inhaled oxygen flow rate 5 L/min Dr. Murphy Burton Work Phone: [facility] Work Phone: 03-20-2022 14:02-0500 SaO2% (BldA) [Mass fraction] 97 % Dr. Murphy Burton Work Phone: [facility] Work Phone: 03-20-2022 13:13-0500 Diastolic blood pressure 63 mm[Hg] Dr. Murphy Burton Work Phone: [facility] Work Phone: 03-20-2022 13:13-0500 Heart rate 67 /min Dr. Murhpy Burton Work Phone: [facility] Work Phone: 03-20-2022 13:13-0500 Respiratory rate 16 /min Dr. Murphy Burton Work Phone: [facility] Work Phone: 03-20-2022 13:13-0500 Systolic blood pressure 139 mm[Hg] Dr. Murphy Burton Work Phone: [facility] Work Phone: 03-20-2022 12:34-0500 Body temperature 98 [degF] Dr. Murphy Burton Work Phone: [facility] Work Phone: 03-20-2022 12:34-0500 Inhaled oxygen concentration 40 % Dr. Murphy Burton Work Phone: [facility] 03-20-2022 09:10-0500 Body height 149.[address] Murphy Burotn Work Phone: [facility] Work Phone: 03-20-2022 09:10-0500 Body mass index (BMI) [Ratio] 29.5 kg/m2 Dr. Murphy Burton Work Phone: [facility] Work Phone: 03-20-2022 09:10-0500 Body weight 66.[address] Murphy Burton Work Phone: [facility] Work Phone: 2022 08:29-0500 Body mass index (BMI) [Ratio] 27.6 kg/m2 Dr. Murphy Burton Work Phone: [facility] 2022 08:29-0500 Body weight 62.[address] Murphy Burton Work Phone: [facility] 2022 08:29-0500 Diastolic blood pressure 67 mm[Hg] Dr. Murphy Burton Work Phone: [facility] 2022 08:29-0500 Heart rate 65 /min Dr. Murphy Burton Work Phone: [facility] 2022 08:29-0500 Respiratory rate 18 /min Dr. Murphy Burton Work Phone: [facility] 2022 08:29-0500 SaO2% (BldA) [Mass fraction] 97 % Dr. Murphy Burton Work Phone: [facility] 2022 08:29-0500 Systolic blood pressure 130 mm[Hg] Dr. Murphy Burton Work Phone: [facility] 11-27-2016 14:09-0400 BMI (Body Mass Index) 30.71 kg/m2 [facility] Work Phone: 11-27-2016 14:09-0400 BP Diastolic 70 mm[Hg] [facility] Work Phone: 11-27-2016 14:09-0400 BP Systolic 160 mm[Hg] [facility] Work Phone: 11-27-2016 14:09-0400 Height 142.24 cm [facility] Work Phone: 11-27-2016 14:09-0400 Pulse (Heart Rate) 62 /min [facility] Work Phone: 11-27-2016 14:09-0400 Respiratory Rate 18 /min [facility] Work Phone: 11-27-2016 14:09-0400 Weight 62.14 kg [facility] Work Phone: 08-06-2016 14:32-0400 Heart rate 66 /min [facility] Work Phone: 08-06-2016 13:56-0400 BMI (Body Mass Index) 32.15 kg/m2 [facility] Work Phone: 08-06-2016 13:56-0400 BP Diastolic 62 mm[Hg] [facility] Work Phone: 08-06-2016 13:56-0400 BP Systolic 130 mm[Hg] [facility] Work Phone: 08-06-2016 13:56-0400 Height 142.24 cm [facility] Work Phone: 08-06-2016 13:56-0400 Pulse (Heart Rate) 66 /min [facility] Work Phone: 08-06-2016 13:56-0400 Respiratory Rate 18 /min [facility] Work Phone: 08-06-2016 13:56-0400 Weight 65.05 kg [facility] Work Phone: Encounters Encounter Date Encounter Type Care Provider Facility Start: 02-07-2025 End: [facility] Start: 12-06-2024 End: 12-06-2024 Patient encounter procedure Jeni ZIMMERMAN [facility] Work Phone: Start: 12-06-2024 End: 12-06-[address] Murphy Burton DO Work Phone: -[facility] Start: 10-04-2024 End: 10-04-2024 Patient encounter procedure Jeni ZIMMERMAN -[facility] Work Phone: Start: 10-04-2024 End: 10-04-[address] Murphy Burton DO Work Phone: -[facility] Start: 04-22-2024 End: 04-22-2024 ambulatory Murphy Burton Facility:[facility] Start: 03-22-2024 ambulatory Murphy Burton Facility:[facility] Start: 03-21-2024 ambulatory Antwon Vidal Facili ty:[facility] Start: 03-21-2024 End: 03-23-2024 Evaluation and management of inpatient Antwon Vidal Facility:[facility] Start: 02-16-2024 End: 02-16-2024 ambulatory Murphy Josephine Facility:[facility] Start: 05-29-2022 ambulatory MURPHY MATAAN [facility] Start: 05-29-2022 ambulatory JACINTA SEBASTIAN Facility :[facility] Start: 05-29-2022 End: 05-29-2022 Subsequent hospital visit by physician Jacinta Sebastian GAME PROTECTOR-GLOBAL REGULATORY AFFAIRS MANAGER Work Phone: [facility] Start: 04-25-2022 Evaluation and management of inpatient MAHMOUD HOUMSSE Facility:[facility] Start: 04-22-2022 ambulatory EDER FELIX JR. Facility:[facility] Start: 04-20-2022 End: 04-27-2022 Evaluation and management of inpatient RENO LE Facility:[facility] Start: 04-20-2022 End: 04-27-2022 Evaluation and management of inpatient Patricia Schrader MD, PhD Work Phone: h2 Comment on above: Aortic stenosis Start: 04-19-2022 End: 04-20-2022 Emergency department patient visit Dr. Murphy Burton Work Phone: [facility] Start: 04-18-2022 ambulatory EDER FELIX JR. Facility:[facility] Start: 04-17-2022 End: 04-19-2022 Evaluation and management of inpatient LINO PORTILLO Facility:[facility] Start: 04-16-2022 End: 04-17-2022 Emergency department patient visit Dr. Murphy Burton Work Phone: [facility] Start: 04-07-2022 Non-patient / Non-visit Dr. Enrike Burton Work Phone: [facility] Start: 03-28-2022 End: 04-05-2022 Evaluation and management of inpatient SURGERY - CARDIAC CONSULT Facility:[facility] Start: 03-28-2022 End: 04-05-2022 Evaluation and management of inpatient Sabas Petersen MD Work Phone: [phone] Comment on above: Aortic stenosis Start: 03-28-2022 Non-patient / Non-visit Dr. Enrike Burton Work Phone: [facility] Start: 03-27-2022 Non-patient / Non-visit Dr. Enrike Burton Work Phone: [facility] Start: 03-26-2022 Non-patient / Non-visit Dr. Enrike Burton Work Phone: [facility] Start: 03-26-2022 Non-patient / Non-visit Dr. Enrike Burton Work Phone: [facility] Start: 03-25-2022 Non-patient / Non-visit Dr. Enrike Burton Work Phone: [facility] Start: 03-25-2022 Non-patient / Non-visit Dr. Enrike Burton Work Phone: [facility] Start: 03-24-2022 Non-patient / Non-visit Dr. Enrike Burton Work Phone: [facility] Start: 03-24-2022 Non-patient / Non-visit Dr. Enrike Burton Work Phone: [facility] Start: 03-23-2022 Non-patient / Non-visit Dr. Enrike Burton Work Phone: [facility] Start: 03-23-2022 Non-patient / Non-visit Dr. Enrike Burton Work Phone: [facility] Start: 03-22-2022 Non-patient / Non-visit Dr. Enrike Burton Work Phone: [facility] Start: 03-22-2022 Non-patient / Non-visit Dr. Enrike Burton Work Phone: [facility] Start: 03-21-2022 Non-patient / Non-visit Dr. Enrike Burton Work Phone: [facility] Start: 03-20-2022 Non-patient / Non-visit Dr. Enrike Burton Work Phone: [facility] Start: 03-20-2022 End: 03-28-2022 Evaluation and management of inpatient Dr. Murphy Burton Work Phone: [facility] Start: 03-19-2022 Non-patient / Non-visit Dr. Enrike Burton Work Phone: [facility] Start: 03-19-2022 End: 03-19-[address] Murphy Burton Work Phone: [facility] Work Phone: Start: 03-19-2022 End: 03-19-[address] Murphy Burton Work Phone: [facility] Start: 2022 End: [address] Murphy Burton Work Phone: [facility] Procedures Date Procedure Procedure Detail Performing Clinician Start: 05-29-2022 Echo tthrc r-t 2d w/wom-mode compl spec&colr d Jacinta Sebastian GAME PROTECTOR-GLOBAL REGULATORY AFFAIRS MANAGER Work Phone: Start: 04-27-2022 Glucose measurement, blood Kailey Paniagua MD Work Phone: Start: 04-27-2022 CONTINUOUS CARDIAC MONITORING STRIP Other Other Start: 04-27-2022 Glucose measurement, blood Kailey Paniagua MD Work Phone: Start: 04-27-2022 Creatinine blood Yordy Blue MD Work Phone: Start: 04-26-2022 Glucose measurement, blood Kailey Paniagua MD Work Phone: Start: 04-26-2022 Glucose measurement, blood Kailey Paniagua MD Work Phone: Start: 04-26-2022 Glucose measurement, blood Kailey Paniagua MD Work Phone: Start: 04-26-2022 Glucose measurement, blood Kailey Paniagua MD Work Phone: Start: 04-26-2022 Creatinine blood Yordy Blue MD Work Phone: Start: 04-25-2022 Glucose measurement, blood Kailey Paniagua MD Work Phone: Start: 04-25-2022 Glucose measurement, blood Kailey Paniagua MD Work Phone: Start: 04-25-2022 Echo tthrc r-t 2d w/wom-mode compl spec&colr d Jacinta Sebastian GAME PROTECTOR-GLOBAL REGULATORY AFFAIRS MANAGER Work Phone: Start: 04-25-2022 Radiologic exam ches t single view Jacinta Sebastian GAME PROTECTOR-GLOBAL REGULATORY AFFAIRS MANAGER Work Phone: Start: 04-25-2022 Assay of magnesium Pritia danuta Sebastian GAME PROTECTOR-GLOBAL REGULATORY AFFAIRS MANAGER Work Phone: Start: 04-25-2022 Glucose measurement, blood Kailey Paniagua MD Work Phone: Start: 04-25-2022 Replace aortic valve perq femoral artry approach Jacinta Sebastian GAME PROTECTOR-GLOBAL REGULATORY AFFAIRS MANAGER Work Phone: Start: 04-25-2022 Cardiac catheterization Jacinta Sebastian GAME PROTECTOR-GLOBAL REGULATORY AFFAIRS MANAGER Work Phone: Start: 04-25-2022 Glucose measurement, blood Kailey Paniagua MD Work Phone: Start: 04-25-2022 Natriuretic peptide Priti Sebastian GAME PROTECTOR-GLOBAL REGULATORY AFFAIRS MANAGER Work Phone: Start: 04-24-2022 Glucose measurement, blood Kailey Paniagua MD Work Phone: Start: 04-24-2022 ABORH TYPE RECONFIRMATION Jemal Shaver MD Work Phone: Start: 04-24-2022 Glucose measurement, blood Kailey Paniagua MD Work Phone: Start: 04-24-2022 End: 04-24-2022 Antibody screen Patricia Schrader MD, P hD Work Phone: Comment on above: Performed By: #### X M #### [facility] ([facility]) [address] [place] [address] Start: 04-24-2022 Blood typing serologic abo Jacinta Sebastian GAME PROTECTOR-GLOBAL REGULATORY AFFAIRS MANAGER Work Phone: Start: 04-24-2022 PREPARE TO TRANSFUSE OR RED BLOOD CELLS Jacinta Sebastian GAME PROTECTOR-GLOBAL REGULATORY AFFAIRS MANAGER Work Phone: Start: 04-24-2022 Glucose measurement, blood Kailey Paniagua MD Work Phone: Start: 04-24-2022 CONTINUOUS CARDIAC MONITORING STRIP Other Other Start: 04-24-2022 Glucose measurement, blood Kailey Paniagua MD Work Phone: Start: 04-24-2022 Electrolyte panel Giovanniong riki Blue MD Work Phone: Start: 04-23-2022 Glucose measurement, blood Kailey Paniagua MD Work Phone: Start: 04-23-2022 Glucose measurement, blood Kailey Paniagua MD Work Phone: Start: 04-23-2022 Glucose measurement, blood Kailey Paniagua MD Work Phone: Start: 04-23-2022 CONTINUOUS CARDIAC MONITORING STRIP Other Other Start: 04-23-2022 Glucose measurement, blood Kailey Paniagua MD Work Phone: Start: 04-23-2022 Electrolyte panel Carol Blue MD Work Phone: Start: 04-22-2022 Glucose measurement, blood Kailey Paniagua MD Work Phone: Start: 04-22-2022 Glucose measurement, blood Kailey Paniagua MD Work Phone: Start: 04-22-2022 Glucose measurement, blood Patricia Schrader MD, PhD Work Phone: Start: 04-22-2022 Dup-scan artl scarlett abdl/pel/scrot&/rpr orgn com Danyel Nava MD Work Phone: Start: 04-22-2022 Glucose measurement, blood Patricia Schrader MD, PhD Work Phone: Start: 04-22-2022 Electrolyte panel Carol Blue MD Work Phone: Start: 04-21-2022 Metanephrines Tito Hunt MD Work Phone: Start: 04-21-2022 Glucose measurement, blood Patricia Schrader MD, PhD Work Phone: Start: 04-21-2022 Glucose measurement, blood Patricia Schrader MD, PhD Work Phone: Start: 04-21-2022 Glucose measurement, blood Patricia Schrader MD, PhD Work Phone: Start: 04-21-2022 CONTINUOUS CARDIAC MONITORING STRIP Other Other Start: 04-21-2022 Glucose measurement, blood Patricia Schrader MD, PhD Work Phone: Start: 04-21-2022 Creatinine blood Yordy Blue MD Work Phone: Start: 04-20-2022 Assay of troponin quantitative Kim Clayton MD Work Phone: Start: 04-20-2022 Glucose measurement, blood Patricia Schrader MD, PhD Work Phone: Start: 04-20-2022 Glucose measurement, blood Patricia Schrader MD, PhD Work Phone: Start: 04-20-2022 Assay of troponin quantitative Paul lBue MD Work Phone: Start: 04-20-2022 Glucose measurement, blood Patricia Schrader MD, PhD Work Phone: Start: 04-20-2022 Blood count platelet automated Paul Blue MD Work Phone: Start: 04-20-2022 Glucose measurement, blood Patricia Schrader MD, PhD Work Phone: Start: 04-20-2022 CONTINUOUS CARDIAC MONITORING STRIP Other Other Start: 04-20-2022 Glucose measurement, blood Patricia Schrader MD, PhD Work Phone: Start: 04-20-2022 CONTINUOUS CARDIAC MONITORING STRIP Other Other Start: 04-20-2022 Assay of troponin quantitative Paul Blue MD Work Phone: Start: 04-20-2022 Assay of magnesium Giovannion gho Nancy Blue MD Work Phone: Start: 04-20-2022 CBC AND ELECTRONIC DIFF Paul Blue MD Work Phone: Start: 04-20-2022 Complete blood count with white cell differential, automated Paul Blue MD Work Phone: Start: 04-19-2022 Plain chest X-ray Dr. Amada Burton Work Phone: Start: 04-16-2022 Plain chest X-ray Dr. Amada Burton Work Phone: Start: 04-05-2022 Glucose measurement, blood Eder Jaime MD Work Phone: Start: 04-05-2022 Glucose measurement, blood Eder Jaime MD Work Phone: Start: 04-05-2022 Glucose measurement, blood Eder Jaime MD Work Phone: Start: 04-05-2022 CONTINUOUS CARDIAC MONITORING STRIP Other Other Start: 04-05-2022 Assay of magnesium Nathaly Keller MD Work Phone: Start: 04-04-2022 Glucose measurement, blood Eder Jaime MD Work Phone: Start: 04-04-2022 CONTINUOUS CARDIAC MONITORING STRIP Other Other Start: 04-04-2022 Glucose measurement, blood Chadwick [facility] MD Work Phone: Start: 04-04-2022 Glucose measurement, blood [facility] MD Work Phone: Start: 04-04-2022 Prq trluml coronary stent w/angio one art/brnch [facility] MD Work Phone: Start: 04-04-2022 vasc access sits vsl patency ndl entry [facility] MD Work Phone: Start: 04-04-2022 Cardiac catheterization [facility] MD Work Phone: Start: 04-04-2022 Glucose measurement, blood [facility] MD Work Phone: Start: 04-04-2022 CONTINUOUS CARDIAC MONITORING STRIP Other Other Start: 04-04-2022 Glucose measurement, blood [facility] MD Work Phone: Start: 04-04-2022 TROPONIN 1 HOUR Lino Trotter MD Work Phone: Start: 04-04-2022 HIGH SENSITIVITY TRO PONIN I X2 Lino Trotter MD Work Phone: Start: 04-04-2022 TROPONIN I INITIAL Scot bean Trotter MD Work Phone: Start: 04-04-2022 Assay of magnesium Nathaly Keller MD Work Phone: Start: 04-03-2022 CONTINUOUS CARDIAC MONITORING STRIP Other Other Start: 04-03-2022 Glucose measurement, blood [facility] MD Work Phone: Start: 04-03-2022 Glucose measurement, blood [facility] MD Work Phone: Start: 04-03-2022 Glucose measurement, blood [facility] MD Work Phone: Start: 04-03-2022 CONTINUOUS CARDIAC MONITORING STRIP Other Other Start: 04-03-2022 Glucose measurement, blood [facility] MD Work Phone: Start: 04-03-2022 Assay of magnesium Nathaly Keller MD Work Phone: Start: 04-02-2022 Glucose measurement, blood [facility] MD Work Phone: Start: 04-02-2022 CONTINUOUS CARDIAC MONITORING STRIP Other Other Start: 04-02-2022 Glucose measurement, blood [facility] MD Work Phone: Start: 04-02-2022 Glucose measurement, blood [facility] MD Work Phone: Start: 04-02-2022 CONTINUOUS CARDIAC MONITORING STRIP Other Other Start: 04-02-2022 Assay of magnesium Nathaly Keller MD Work Phone: Start: 04-02-2022 Glucose measurement, blood [facility] MD Work Phone: Start: 04-01-2022 Glucose measurement, blood [facility] MD Work Phone: Start: 04-01-2022 Prothrombin time Lino Trotter MD Work Phone: Start: 04-01-2022 Glucose measurement, blood [facility] MD Work Phone: Start: 04-01-2022 Endoluminal coronary ivus oct i&r initial vessel Ele Saavedra MD Work Phone: Start: 04-01-2022 Prq trluml coronary stent w/angio one art/brnch Ele Saavedra MD Work Phone: Start: 04-01-2022 ACT* LOW RANGE, POC Jonatan [facility] MD Work Phone: Start: 04-01-2022 End: 04-01-2022 ACT* LOW RANGE, POC [facility] MD Work Phone: Start: 04-01-2022 Cardiac catheterization Ele Saavedra MD Work Phone: Start: 04-01-2022 Echo tthrc r-t 2d w/wom-mode compl spec&colr d Sabas Petersen MD Work Phone: Start: 04-01-2022 Iadna s aureus ampli fied probe tq Jacinta E O'Christopher GAME PROTECTOR-GLOBAL REGULATORY AFFAIRS MANAGER Work Phone: Start: 04-01-2022 Glucose measurement, blood [facility] MD Work Phone: Start: 04-01-2022 Glucose measurement, blood Ele Saavedra MD Work Phone: Start: 04-01-2022 Hemoglobin glycosyla scar a1c Pricila To DO, PhD Work Phone: Start: 04-01-2022 Lipid panel Pricila To DO, PhD Work Phone: Start: 03-31-2022 Glucose measurement, blood Ele Saavedra MD Work Phone: Start: 03-31-2022 Thromboplastin time partial plasma/whole blood Henrique Petersen MD Work Phone: Start: 03-31-2022 Glucose measurement, blood Ele Saavedra MD Work Phone: Start: 03-31-2022 Thromboplastin time partial plasma/whole blood Henrique Petersen MD Work Phone: Start: 03-31-2022 Glucose measurement, blood Ele Saavedra MD Work Phone: Start: 03-31-2022 CONTINUOUS CARDIAC MONITORING STRIP Other Other Start: 03-31-2022 Glucose measurement, blood Ele Saavedra MD Work Phone: Start: 03-31-2022 Thromboplastin time partial plasma/whole blood Henrique Petersen MD Work Phone: Start: 03-30-2022 Glucose measurement, blood Sabas Petersen MD Work Phone: Start: 03-30-2022 Glucose measurement, blood Sabas Petersen MD Work Phone: Start: 03-30-2022 Thromboplastin time partial plasma/whole blood Henrique Petersen MD Work Phone: Start: 03-30-2022 Glucose measurement, blood Sabas Petersen MD Work Phone: Start: 03-30-2022 Orthopantogram Sabas Petersen MD Work Phone: Start: 03-30-2022 Glucose measurement, blood Sabas Petersen MD Work Phone: Start: 03-30-2022 Duplex scan extracra nial art compl bi study Sabas Petersen MD Work Phone: Start: 03-30-2022 Thromboplastin time partial plasma/whole blood Henrique Petersen MD Work Phone: Start: 03-30-2022 CONTINUOUS CARDIAC MONITORING STRIP Other Other Start: 03-30-2022 Glucose measurement, blood Sabas Petersen MD Work Phone: Start: 03-30-2022 CONTINUOUS CARDIAC MONITORING STRIP Other Other Start: 03-30-2022 Thromboplastin time partial plasma/whole blood Henrique Petersen MD Work Phone: Start: 03-29-2022 Glucose measurement, blood Sabas Petersen MD Work Phone: Start: 03-29-2022 TROPONIN 1 HOUR Henrique Petersen MD Work Phone: Start: 03-29-2022 CONTINUOUS CARDIAC MONITORING STRIP Other Other Start: 03-29-2022 HIGH SENSITIVITY TRO PONIN I X2 Henrique Petersen MD Work Phone: Start: 03-29-2022 TROPONIN I INITIAL Edward Petersen MD Work Phone: Start: 03-29-2022 End: 03-29-2022 Assay of magnesium Tanya Hylton MD Work Phone: Start: 03-29-2022 Glucose measurement, blood Sabas Petersen MD Work Phone: Start: 03-29-2022 CONTINUOUS CARDIAC MONITORING STRIP Other Other Start: 03-29-2022 Glucose measurement, blood Sabas Petersen MD Work Phone: Start: 03-29-2022 Bilirubin direct Jeysoniso n Nancy Hylton MD Work Phone: Start: 03-29-2022 CBC AND ELECTRONIC DIFF Tanya Hylton MD Work Phone: Start: 03-29-2022 Complete blood count with white cell differential, automated Tanya Hylton MD Work Phone: Start: 03-28-2022 End: 03-29-2022 CONTINUOUS CARDIAC MONITORING STRIP Other Other Start: 03-20-2022 Plain chest X-ray Dr. Amada Burton Work Phone: Start: 01-19-2017 End: 01-19-2017 *Hepatic Function Panel Dontrell Dawson MD Work Phone: Start: 01-19-2017 End: 01-19-2017 Lipid 1996 panel - Serum or Plasma Dontrell Dawson MD Work Phone: Start: 11-27-2016 End: 11-27-2016 CHEY Dawson MD Work Phone: Start: 11-27-2016 End: 11-27-2016 Follow Up Appt 3 months Dontrell Dawson MD Work Phone: Start: 11-27-2016 End: 11-27-2016 CHEY Dawson MD Work Phone: Start: 11-27-2016 End: 11-27-2016 Follow Up Appt 3 months Dontrell Dawson MD Work Phone: Start: 11-17-2016 End: 11-17-2016 *BMP Dontrell Dawson MD Work Phone: Start: 11-17-2016 End: 11-17-2016 *BMP Dontrell Dawson MD Work Phone: Start: 08-25-2016 End: 11-17-2016 *Hepatic Function Panel Sung Louis Tavarez LUGGAGE REPAIRER -C Start: 08-25-2016 End: 11-17-2016 Lipid 1996 panel - Serum or Plasma Sung Louis Tavarez LUGGAGE REPAIRER-C Start: 08-25-2016 End: 11-17-2016 *Hepatic Function Panel Sung A Tavarez LUGGAGE REPAIRER -C Start: 08-25-2016 End: 11-17-2016 Lipid panel [AGGREGATE] Sung Louis Tavarez LUGGAGE REPAIRER -C Start: 08-06-2016 End: 08-06-2016 DJN Sung Mccainder LUGGAGE REPAIRER-C Start: 08-06-2016 End: 08-06-2016 Ecg routine ecg w/least 12 lds w/i&r Sung Louis Tavarez LUGGAGE REPAIRER-C Start: 08-06-2016 End: 08-06-2016 Follow Up Appt 3 months Sung Mccainder LUGGAGE REPAIRER -C Start: 08-06-2016 End: 08-06-2016 DJN Sung Louis Tavarez LUGGAGE REPAIRER-C Start: 08-06-2016 End: 08-06-2016 Electrocardiogram, complete Sung Mccainder LUGGAGE REPAIRER-C Start: 08-06-2016 End: 08-06-2016 Follow Up Appt 3 months Sung Tavarez LUGGAGE REPAIRER -C Start: 07-31-2016 End: 08-01-2016 Referral to steward/stewardess third class Dontrell Dawson MD Work Phone: Start: 07-31-2016 End: 08-06-2016 Referral to steward/stewardess third class Dontrell Dawson MD Work Phone: Start: 07-18-2016 End: 07-18-2016 Nurse, Teaching, Wound Check (no charge) Dontrell Dawson MD Work Phone: Start: 07-18-2016 Percutaneous translu carlos coronary angioplasty Status post PTCA and/or stent Joselo Alexander [facility]AE Start: 07-18-2016 End: 07-18-2016 Nurse, Teaching, Wound Check (no charge) Dontrell Dawson MD Work Phone: Start: 07-18-2016 Percutaneous translu carlos coronary angioplasty Status post PTCA and/or stent Jenny King SARS-CoV-2 & FLU Ant igen (Rapid) Dr. Murphy Burton Work Phone: SARS-CoV-2 & FLU Ant igen (Rapid) Dr. Murphy Burton Work Phone: SARS-CoV-2 & FLU Ant igen (Rapid) Dr. Murphy Burton Work Phone: Viral antigen assay Dr. Savanna Burton Work Phone: Plan of Treatment Date Care Activity Detail Author Start: 05-30-2023 Potassium [Moles/vol ume] in Serum or Plasma POTASSIUM [facility] Start: 04-27-2023 Potassium [Moles/vol ume] in Serum or Plasma POTASSIUM [facility] Start: 04-17-2023 Lipid panel LIPIDS [facility] Start: 04-09-2023 End: 04-09-2023 Patient encounter procedure [facility] [place] [facility] Start: 09-29-2022 Hemoglobin A1c measurement HBA1C TEST [facility] Start: 05-29-2022 End: 05-29-2022 Patient encounter procedure [facility] [place] [facility] Start: 05-09-2022 End: 05-09-2022 Patient encounter procedure 05/09/2022 Office Visit Cardiovascular Medicine Tito Munoz MD [address] [place] [address] [facility] Start: 04-19-2022 Continuous pulse oximetry [facility] Start: 04-19-2022 Dual pressure sponta neous ventilation support [facility] Start: 04-05-2022 End: 04-05-[address] ANGIO TAVR EVALUATION Imaging Routine Aortic valve stenosis, etiology of cardiac valve disease unspecified Expected: 04/05/2022, Expires: 04/05/2023 [facility] Comment on above: Expected: 04/05/2022 , Expires: 04/05/2023 Start: 03-28-2022 Patient discharge [facility] Start: 03-21-[address] [facility] Start: 03-21-2022 Notification of physician [facility] Start: 03-21-2022 Oxygen therapy [facility] Start: 03-21-2022 Patient discharge [facility] Start: 03-21-2022 Systemic arterial pressure monitoring [facility] Start: 03-21-2022 Taking patient vital signs [facility] Start: 03-21-2022 Vascular disease ris k assessment [facility] Start: 03-21-2022 Vital signs measurements [facility] Start: 03-21-2022 [facility] Start: 03-20-2022 Referral to steward/stewardess third class [facility] Start: 03-20-2022 Care regimes management [facility] Start: 03-20-2022 Notification of physician [facility] Start: 03-20-2022 [facility] Start: 03-20-2022 Assessment of risk o f venous thromboembolism [facility] Start: 03-20-2022 Catheterization of vein [facility] Start: 03-20-2022 Fluid restriction [facility] Start: 03-20-2022 Incentive spirometry [facility] Start: 03-20-2022 Insertion of cathete r into peripheral vein [facility] Start: 03-20-2022 Measuring intake and output [facility] Start: 03-20-2022 Providing care accor ding to standard [facility] Start: 03-20-2022 Provision of activit y privileges [facility] Start: 03-20-2022 Referral to service [facility] Start: 03-20-2022 [facility] Start: 03-20-2022 Following clinical pathway protocol [facility] Start: 03-20-2022 Admission procedure [facility] Start: 03-20-2022 Continuous pulse oximetry [facility] Work Phone: Start: 03-20-2022 Dual pressure sponta neous ventilation support [facility] Work Phone: Start: 11-28-2021 Influenza vaccination INFLUENZA VACC INE (#1) [facility] Start: 07-20-2017 End: 01-23-2017 *Hepatic Function Panel *Hepatic Function Panel [facility] Work Phone: Start: 07-20-2017 End: 01-23-2017 Lipid panel [AGGREGATE] *Lipid Profile CC PCP [facility] Work Phone: Start: 03-09-2017 End: 03-09-2017 Appointment Appointment [facility] Work Phone: Start: 01-19-2017 End: 01-19-2017 *Hepatic Function Panel *Hepatic Function Panel [facility] Work Phone: Start: 01-19-2017 End: 01-19-2017 Lipid panel [AGGREGATE] *Lipid Profile CC PCP [facility] Work Phone: Start: 01-19-2017 End: 11-27-2016 *Hepatic Function Panel *Hepatic Function Panel [facility] Work Phone: Start: 01-19-2017 End: 11-27-2016 Lipid panel [AGGREGATE] *Lipid Profile CC PCP [facility] Work Phone: Start: 11-27-2016 End: 11-27-2016 Appointment Appointment [facility] Work Phone: Start: 11-27-2016 End: 11-27-2016 Appointment Appointment [facility] Work Phone: Start: 11-27-2016 End: 11-27-2016 Cardiac Rehab [facility] Work Phone: Start: 11-27-2016 End: 11-27-2016 DJN ADINAN [facility] Work Phone: Start: 11-27-2016 End: 11-27-2016 Follow Up Appt 3 months Follow Up Appt 3 months [facility] Work Phone: Start: 11-27-2016 End: 11-27-2016 Follow Up BP Check Follow Up BP Check [facility] Work Phone: Start: 11-27-2016 End: 11-27-2016 Cardiac Rehab [facility] Work Phone: Start: 11-27-2016 End: 11-27-2016 DJN ADINAN [facility] Work Phone: Start: 11-27-2016 End: 11-27-2016 Follow Up Appt 3 months Follow Up Appt 3 months [facility] Work Phone: Start: 11-27-2016 End: 11-27-2016 Follow Up BP Check Follow Up BP Check [facility] Work Phone: Start: 11-17-2016 End: 11-17-2016 *BMP *BMP [facility] Work Phone: Start: 11-17-2016 End: 11-17-2016 *BMP *BMP [facility] Work Phone: Start: 08-25-2016 End: 11-17-2016 *Hepatic Function Panel *Hepatic Function Panel [facility] Work Phone: Start: 08-25-2016 End: 11-17-2016 Lipid panel [AGGREGATE] *Lipid Profile CC PCP [facility] Work Phone: Start: 08-25-2016 End: 11-17-2016 *Hepatic Function Panel *Hepatic Function Panel [facility] Work Phone: Start: 08-25-2016 End: 11-17-2016 Lipid panel [AGGREGATE] *Lipid Profile CC PCP [facility] Work Phone: Start: 08-06-2016 End: 08-06-2016 Appointment Appointment [facility] Work Phone: Start: 08-06-2016 End: 08-06-2016 CHEY GUERRIER [facility] Work Phone: Start: 08-06-2016 End: 08-06-2016 Ecg routine ecg w/least 12 lds w/i&r EKG (In office) [facility] Work Phone: Start: 08-06-2016 End: 08-06-2016 Follow Up Appt 3 months Follow Up Appt 3 months [facility] Work Phone: Start: 08-06-2016 End: 08-06-2016 CHEY GUERRIER [facility] Work Phone: Start: 08-06-2016 End: 08-06-2016 Electrocardiogram, complete EKG (In office) [facility] Work Phone: Start: 08-06-2016 End: 08-06-2016 Follow Up Appt 3 months Follow Up Appt 3 months [facility] Work Phone: Start: 07-31-2016 End: 08-06-2016 Cardiac Rehab [facility] [address] [place], [address] [facility] Work Phone: Start: 07-31-2016 End: 08-06-2016 Cardiac [facility]hab [facility] [address] [place], [address] [facility] Work Phone: Start: 2000 Pneumococcal vaccination PNEUM OCOCCAL VACCINE SERIES (1 - PCV) [facility] Start: 1985 Zoster vaccine hzv l yuko for subcutaneous use ZOSTER (SHINGLES) VACCINE (1 of 2) [facility] Start: 1980 Screening for malign ant neoplasm of colon COLORECTAL CANCER SCREENING DISCUSSION [facility] Start: 1975 Screening for malign ant neoplasm of breast MAMMOGRAM SCREENING DISCUSSION [facility] Start: 1956 Screening for malign ant neoplasm of cervix CERVICAL CANCER SCREENING DISCUSSION [facility] Start: 1954 Third diphtheria, te tanus and acellular pertussis (DTaP) vaccination TDAP (ADULT) [facility] Start: 1935 COVID-19 VACCINE (#1) COVID-19 VACCI NE (#1) [facility] Start: 1935 Diabetic foot examination DIABETIC F OOT EXAM [facility] Start: 1935 Glaucoma screening EYE EXAM [facility] Start: 1935 Screening for osteoporosis DEXA SCAN DISCUSSION [facility] Start: 1935 Tetanus vaccination TETANUS [facility] Start: 1935 Urine screening for protein URINE MICROALBUMIN TEST [facility] Cardiac catheterizat ion study INVASIVE CARDIOVASCULAR PROCEDURE Cardiac Cath Routine Coronary artery disease involving yocha dehe coronary artery of yocha dehe heart with unstable angina pectoris NSTEMI (non-ST elevated myocardial infarction) 04/04/2022 11:09 AM EST [facility] Cardiac catheterizat ion study INVASIVE CARDIOVASCULAR PROCEDURE Cardiac Cath Routine Aortic valve stenosis, etiology of cardiac valve disease unspecified 04/25/2022 10:36 AM EST [facility] Cardiac event recording EVENT TERRANCE GARCÍA, CARDIAC ECG Routine S/P TAVR (transcatheter aortic valve replacement) Ordered: 04/26/2022 [facility] Work Phone: Comment on above: Ordered: 04/26/2022 End: 04-25-2022 Cardiac telemetry MOBILE CARDIAC TELEMETRY ECG Routine One Time for 1 Occurrences starting 04/25/2022 until 04/25/2022 [facility] Comment on above: One Time for 1 Occur rences starting 04/25/2022 until 04/25/2022 Patient Education LOW%20FAT%20DIET [facility] Work Phone: Patient referral [facility] Work Phone: End: 03-28-2022 Standard ECG ECG ECG Routine One Time for 1 Occurrences starting 03/28/2022 until 03/28/2022 [facility] Comment on above: One Time for 1 Occur rences starting 03/28/2022 until 03/28/2022 End: 03-29-2022 Standard ECG [facility] Comment on above: One Time for 1 Occur rences starting 03/29/2022 until 03/29/2022 End: 04-01-2022 Standard ECG [facility] Comment on above: One Time for 1 Occur rences starting 04/01/2022 until 04/01/2022 End: 04-04-2022 Standard ECG [facility] Comment on above: One Time for 1 Occur rences starting 04/04/2022 until 04/04/2022 Standard ECG ECG ECG STAT 03/2022 6:17 PM EST [facility] Standard ECG ECG ECG STAT 08/2022 12:52 AM [facility] End: 04-25-2022 Standard ECG ECG ECG STAT One Time for 1 Occurrences starting 04/25/2022 until 04/25/2022 [facility] Comment on above: One Time for 1 Occur rences starting 04/25/2022 until 04/25/2022 Standard ECG ECG ECG STAT 10:24 AM [facility] Work Phone: Payers Date Payer Category Payer Unknown [id number] 2024 Self-pay [id number] 2022 Unknown [id number] 1935 Unknown [id number] [id number]. [id number] Unknown [facility] [employer] . [id number] Unknown [id number] 2.16.8 [id number] Unknown [id number] 2.16.8 [id number] Unknown [id number] 2.16.8 [id number] Unknown [id number] 2.16.8 [id number] Unknown [id number] 2.16.8 [id number] Unknown [id number] 2.16.8 [id number] Unknown [id number] 2.16.8 [id number] Unknown [id number] 2.16.8 [id number] Unknown [id number] 2.16.8 [id number] Unknown [id number] 2.16.8 [id number] Unknown [id number] 2.16.8 [id number] Social History Date Type Detail Facility Start: 03-20-2022 End: 04-19-2022 Tobacco smoking status NHIS Unknown if ever smoked [facility] Start: 05-07-2018 With Family [facility] Start: 1935 Sex Assigned At Female [facility] Start: 03-28-2022 End: 03-21-2024 Tobacco smoking status NHIS Never smoked tobacco [facility] Start: 03-28-2022 Tobacco use and exposure Smokeless tobacco non-user [facility] Start: 04-02-2022 End: 05-29-2022 Alcohol intake Lifetime non-drinker (finding) [facility] Start: 1935 Sex Assigned At Not on file [facility] Start: 03-18-2022 End: 03-28-2022 Exposure to SARS-CoV-2 (event) Not sure [facility] Start: 04-15-2022 End: 05-29-2022 Exposure to SARS-CoV-2 (event) Unable to assess [facility] Start: 07-09-2016 [facility] Start: 07-09-2016 Tobacco Use Tobacco Use [facility] Medical Equipment Procedure Code Equipment Code Equipment Origin al Text Equipment Identifier Dates Endarterectomy, carotid PATCH,VASC .8CM X 8CM FDA Start: 05-05-2018 Endarterectomy, carotid SEALANT,FLOSEAL HEMOSTATIC 5ML FDA Start: 05-05-2018 Endarterectomy, carotid SUTURE,LIGA CLIP MED [id number] FDA Start: 05-05-2018 Endarterectomy, carotid SUTURE,LIGA CLIP MED [id number] FDA Start: 05-05-2018 Endarterectomy, carotid SUTURE,LIGA CLIP SM LT-100 FDA Start: 05-05-2018 Endarterectomy, carotid SUTURE,LIGA CLIP SM LT-100 FDA Start: 05-05-2018 Endarterectomy, carotid SUTURE,LIGA CLIP SM LT-100 FDA Start: 05-05-2018 Endarterectomy, carotid PATCH,VASC .8CM X 8CM FDA Start: 05-05-2018 Endarterectomy, carotid SEALANT,FLOSEAL HEMOSTATIC 5ML FDA Start: 05-05-2018 Endarterectomy, carotid SUTURE,LIGA CLIP MED [id number] FDA Start: 05-05-2018 Endarterectomy, carotid SUTURE,LIGA CLIP MED [id number] FDA Start: 05-05-2018 Endarterectomy, carotid SUTURE,LIGA CLIP SM LT-100 FDA Start: 05-05-2018 Endarterectomy, carotid SUTURE,LIGA CLIP SM LT-100 FDA Start: 05-05-2018 Endarterectomy, carotid SUTURE,LIGA CLIP SM LT-100 FDA Start: 05-05-2018 Endarterectomy, carotid PATCH,VASC .8CM X 8CM FDA Start: 05-05-2018 Endarterectomy, carotid SEALANT,FLOSEAL HEMOSTATIC 5ML FDA Start: 05-05-2018 Endarterectomy, carotid SUTURE,LIGA CLIP MED LT200 FDA Start: 05-05-2018 Endarterectomy, carotid SUTURE,LIGA CLIP MED LT200 FDA Start: 05-05-2018 Endarterectomy, carotid SUTURE,LIGA CLIP SM LT-100 FDA Start: 05-05-2018 Endarterectomy, carotid SUTURE,LIGA CLIP SM LT-100 FDA Start: 05-05-2018 Endarterectomy, carotid SUTURE,LIGA CLIP SM LT-100 FDA Start: 05-05-2018 Endarterectomy, carotid PATCH,VASC .8CM X 8CM FDA Start: 05-05-2018 Endarterectomy, carotid SEALANT,FLOSEAL HEMOSTATIC 5ML FDA Start: 05-05-2018 Endarterectomy, carotid SUTURE,LIGA CLIP MED LT200 FDA Start: 05-05-2018 Endarterectomy, carotid SUTURE,LIGA CLIP MED LT200 FDA Start: 05-05-2018 Endarterectomy, carotid SUTURE,LIGA CLIP SM LT-100 FDA Start: 05-05-2018 Endarterectomy, carotid SUTURE,LIGA CLIP SM LT-100 FDA Start: 05-05-2018 Endarterectomy, carotid SUTURE,LIGA CLIP SM LT-100 FDA Start: 05-05-2018 Endarterectomy, carotid PATCH,VASC .8CM X 8CM FDA Start: 05-05-2018 Endarterectomy, carotid SEALANT,FLOSEAL HEMOSTATIC 5ML FDA Start: 05-05-2018 Endarterectomy, carotid SUTURE,LIGA CLIP MED LT200 FDA Start: 05-05-2018 Endarterectomy, carotid SUTURE,LIGA CLIP MED LT200 FDA Start: 05-05-2018 Endarterectomy, carotid SUTURE,LIGA CLIP SM LT-100 FDA Start: 05-05-2018 Endarterectomy, carotid SUTURE,LIGA CLIP SM LT-100 FDA Start: 05-05-2018 Endarterectomy, carotid SUTURE,LIGA CLIP SM LT-100 FDA Start: 05-05-2018 Endarterectomy, carotid PATCH,VASC .8CM X 8CM FDA Start: 05-05-2018 Endarterectomy, carotid SEALANT,FLOSEAL HEMOSTATIC 5ML FDA Start: 05-05-2018 Endarterectomy, carotid SUTURE,LIGA CLIP MED LT200 FDA Start: 05-05-2018 Endarterectomy, carotid SUTURE,LIGA CLIP MED LT200 FDA Start: 05-05-2018 Endarterectomy, carotid SUTURE,LIGA CLIP SM LT-100 FDA Start: 05-05-2018 Endarterectomy, carotid SUTURE,LIGA CLIP SM LT-100 FDA Start: 05-05-2018 Endarterectomy, carotid SUTURE,LIGA CLIP SM LT-100 FDA Start: 05-05-2018 Endarterectomy, carotid PATCH,VASC .8CM X 8CM FDA Start: 05-05-2018 Endarterectomy, carotid SEALANT,FLOSEAL HEMOSTATIC 5ML FDA Start: 05-05-2018 Endarterectomy, carotid SUTURE,LIGA CLIP MED LT200 FDA Start: 05-05-2018 Endarterectomy, carotid SUTURE,LIGA CLIP MED LT200 FDA Start: 05-05-2018 Endarterectomy, carotid SUTURE,LIGA CLIP SM LT-100 FDA Start: 05-05-2018 Endarterectomy, carotid SUTURE,LIGA CLIP SM LT-100 FDA Start: 05-05-2018 Endarterectomy, carotid SUTURE,LIGA CLIP SM LT-100 FDA Start: 05-05-2018 Device Closure Proglide 6fr - [id number] Start: 04-01-2022 Coronary Stent 2 8mm 3mm Xience Skypoint Multi-Link 145cm - [id number] Start: 04-04-2022 Kit Valve Aortic Transcatheter Lorelei 3 Commander 23mm - [id number] Start: 04-25-2022 Device Closure Proglide 6fr - [id number] Start: 04-25-2022 Goals Date Patient Goal Desired Activity /State Functional Status Date Assessment Result Facility 03-28-2022 Functional status Ambulates;Bathroom Priv [facility] Work Phone: Mental Status Date Assessment Result Facility 03-28-2022 Cognitive function Voice/Name [facility] Work Phone: Clinical Notes 03-28-2022 to 10-04-2024 Note Date & Type Note Facility 10-04-2024 Evaluation note Diagnosis Onset Date Resolution Essential hypertension acute October 04, 2024 3:47pm History of transcatheter aortic valve replacement (TAVR) March, acute October 04, 2024 3:47pm Presence of stent in coronary artery March, acute October 04, 2024 3:47pm Carotid stenosis, left chronic October 04, 2024 3:47pm HLD (hyperlipidemia) chronic October 04, 2024 3:47pm Essential hypertension acute December 06, 2024 8:36am History of transcatheter aortic valve replacement (TAVR) March, acute December 06, 2024 8:36am Presence of stent in coronary artery March, acute December 06, 2024 8:36am Carotid stenosis, left chronic December 06, 2024 8:36am HLD (hyperlipidemia) chronic Nov 8:36am [facility] Work Phone: [phone] 620-252312-25-2024 [facility] Medical Records Department [address] [place] [address] Discharge Summary 03/23/24 1042 MR#: [id number] Acct: [id number] Name: FINESSE PRATHER Rep #: [id number] : 1935 89 From: Papi Ruiz MD PCP: Dr. Murphy Burton MD Status:ADM IN Location: [place] [address] Providers Date of Admission: 03/21/24 Date of Discharge: 03/23/24 Primary Care Physician: Dr. Murphy Burton DO Consultations 03/22/24 00:48 Consult: Cardiology Routine Consulting Provider: Pillo Cordero Reason for Consult: acute exacerbation chf, pt known to abimael EMERGENT Consult: No MD Notified: Yes Date Notified: 03/22/24 Time Notified: 06:34 Method of Notification: Text Reason For Visit: PNA AND AE CHF WITH ACUTE RESPIRATORY Diagnosis Discharge Diagnosis (1) CHF exacerbation: Status: Chronic Code(s): I50.9 - Heart failure, unspecified Qualifiers: Heart failure type: unspecified Qualified Code(s): I50.9 - Heart failure, unspecified (2) History of transcatheter aortic valve replacement (TAVR): Status: Acute Code(s): Z95.2 - Presence of prosthetic heart valve (3) Essential hypertension: Status: Acute Code(s): I10 - Essential (primary) hypertension Plan 89-year-old female admitted with shortness of breath few days prior to admission but no PND or pedal edema. Denies chest pain 1. CHF exacerbation - Admit to PCU. BNP elevated. Chest x-ray initially reviewed and shows bilateral patchy opacities suggestive of edema and repeat chest x-ray also suggestive of central pulmonary vascular congestion/pulmonary edema and small bilateral pleural effusion. Twelve-lead EKG sinus rhythm with mild lateral ST depression. Patient on IV diuretic furosemide 40 mg twice daily. Heart failure core measures including intake and output, fluid restriction less than 1500 mL, daily weight monitoring, kidney and electrolytes monitoring. Echo post-TAVR showed EF 50 to 55%, stage II diastolic dysfunction, mean AV gradient 8 mmHg valve area 1.03 cm???. 03/23: Patient BP dropped to 88/41 after giving carvedilol oral and Lasix IV at 1 time. Patient also feeling dizzy. Later on blood pressure improved went up to 156/61. Discussed with the steward/stewardess third class Dr. Cordero. Patient is discharged on lisinopril 10 mg p.o. twice daily, Lasix 40 mg oral twice daily and carvedilol home dose to continue. Discussed with the son and advised to give interval of 2 hours between 2 antihypertensive medication and check blood pressure at least twice per day before giving antihypertensive medication. 2. Pneumonia ruled out. Urinary antigens, triple PCR for SARS-CoV-2, flu and RSV are negative. Antibiotic discontinued. 3. Poorly-controlled Hypertension, accelerated hypertension: BP was more than 200 systolic/100 in ED. Continue lisinopril 10 mg twice daily. Amlodipine 5 mg daily added. Patient on furosemide carvedilol and hydralazine. 4.CAD, cardiac stents 2016, 2022 and chronic nonrheumatic msdyjnxp-ua-tqythx stenosis of aortic valve; s/p TAVR (03/2022) PAD, bilateral carotid stenosis status post right CEA 2010, left CEA 2018: Echo findings as above. Continue baby aspirin. 5. Hyperlipidemia; on ezetmibe - Resume ezetimibe and check Lipid Profile this admission. 6. Obesity; with BMI of 30.1 this admission -weight loss recommended 7. DM-2 chronic metformin - ADA diet. FSBS q. AC/HS plus SSI. A1c 6.6%. 8. History of depression; on sertraline - Resume sertraline as previous. 9. Other comorbidities include osteoarthritis and osteoporosis osteoporosis - Stable. DVT prophylaxis - Lovenox 40 mg sq daily plus SCD's. Discharge medication reconciliation done. Discharge follow-up instructions completed. Discharge process discussed with the patient and all questions were answered to patient's satisfaction. Follow with PCP in 1 to 2 weeks Total time spent, exact 35 minutes on discharge meds reconciliation, examination, coordination of care with nurses and ancillary staff, review of imaging and blood test and discussion with the patient on follow-up instructions. Medications at Discharge Home Medications nitroglycerin 0.4 mg sublingual tablet 0.4 mg sublingual Q5M PRN Chest Pain #20 tabs 07/11/16 aspirin 81 mg tablet,delayed release 81 mg PO DAILY HEART HEALTH 04/28/18 metformin 500 mg tablet 500 mg PO BID blood sugar 01/28/21 omega-3 250 dw-dbu-ord-lutein 2.5 mg-zeaxanthin 0.5 mg capsule ([facility]) 1 cap PO BID EYE HEALTH 01/28/21 vitamin B complex 1 cap PO DAILY SUPPLEMENT 01/28/21 ezetimibe 10 mg tablet 10 mg PO DAILY CHOLESTEROL 03/20/22 multivitamin with minerals 1 tab PO DAILY SUPPLEMENT 03/20/22 hydralazine 10 mg tablet 10 mg PO TID PRN hypertension 05/15/22 melatonin 1 mg tablet 1 mg PO HS PRN sleep 05/15/22 sertraline 50 mg tablet 50 mg PO DAILY 05/15/22 lisinopril 10 mg tablet 10 mg PO QHS #90 tabs 02/16/24 carvedilol 1 (more content not included)...[facility]01-30-2023 NoteProcedure Report DATE PERFORMED: 04/25/2022 PREOPERATIVE DIAGNOSES: Severe symptomatic calcific aortic stenosis. PROCEDURE: Transcatheter aortic valve replacement with an Lerner LORELEI 23 valve via right iliofemoral approach. PHYSICIANS: Lino Portillo MD PhD; Colby Lucas MD Post procedure pressures: After valve implantation the mean aortic valve gradient was 0 mmHg. Degree of aortic regurgitation at the end of the case: By angiogram: trace Contrast used: 48 ml. PROCEDURE: The patient was taken to the hybrid room; conscious sedation was employed. Percutaneous 6 F arterial and 9 F venous access was obtained in the left femoral artery and vein, respectively. A 5F pigtail catheter was advanced to the aortic root via the left femoral artery for aortography. A temporary pacemaker lead was advanced into the right ventricle and reliable ventricular capture was established. Right femoral artery access was established, two Perclose devices were deployed across the arteriotomy and then the iliac was pre-dilated with sequential dilators, and finally a 14F E-sheath was inserted. The Lerner LORELEI transcatheter valve was then inserted via the groin sheath and positioned across the aortic valve. Position was confirmed with aortography and then it was deployed successfully. Post procedure there was no significant paravalvular leak. The valve sheath was then removed, then the introducer sheath was removed and the previously placedPerclose devices were deployed. External pressure was temporarily applied to the entry site to assist with hemostasis. The remaining arterial sheath was then removed and closed with a single Perclose device, temporary manual compression established hemostasis. The patient was transferred stable to the recovery unit. Lino Portillo MD PhD Table formatting from the original result was not included. Images from the original result were not included. Finesse Prather Invasive Cardiology Cath Procedure Ordering Physician: JACINTA SEBASTIAN Order #: [id number] Study Date: 04/25/2022 Patient Information Name MRN Description Finesse Prather [id number] y.o. female Location Name Address [facility] [address] [facility] [address] Physicians Panel Physicians Referring Physician Case Authorizing Physician Lino Portillo MD, PhD (Primary) DO Jacinta Peng, GAME PROTECTOR-GLOBAL [employer]ULATORY AFFAIRS MANAGER Tito Bartholomew MD (Fellow) Nicho Lucas MD Procedures TAVR Indications Aortic valve stenosis, etiology of cardiac valve disease unspecified [I35.0 (ICD-10-CM)] Conclusion Procedure Report DATE PERFORMED: 04/25/2022 PREOPERATIVE DIAGNOSES: Severe symptomatic calcific aortic stenosis. PROCEDURE: Transcatheter aortic valve replacement with an Lerner LORELEI 23 valve via right iliofemoral approach. PHYSICIANS: Lino Portillo MD PhD; Colby Lucas MD Post procedure pressures: After valve implantation the mean aortic valve gradient was 0 mmHg. Degree of aortic regurgitation at the end of the case: By angiogram: trace Contrast used: 48 ml. PROCEDURE: The patient was taken to the hybrid room; conscious sedation was employed. Percutaneous 6 F arterial and 9 F venous access was obtained in the left femoral artery and vein, respectively. A 5F pigtail catheter was advanced to the aortic root via the left femoral artery for aortography. A temporary pacemaker lead was advanced into the right ventricle and reliable ventricular capture was established. Right femoral artery access was established, two Perclose devices were deployed across the arteriotomy and then the iliac was pre-dilated with sequential dilators, and finally a 14F E-sheath was inserted. The Lerner LORELEI transcatheter valve was then inserted via the groin sheath and positioned across the aortic valve. Position was confirmed with aortography and then it was deployed successfully. Post procedure there was no significant paravalvular leak. The valve sheath was then removed, then the introducer sheath was removed and the previously placedPerclose devices were deployed. External pressure was temporarily applied to the entry site to assist with hemostasis. The remaining arterial sheath was then removed and closed with a single Perclose device, temporary manual compression established hemostasis. The patient was transferred stable to the recovery unit. Lino Portillo MD PhD Medical History Diagnosis Date Comment Source Aortic stenosis CAD (coronary artery disease) Carotid stenosis Diabetes mellitus type 2, noninsulin dependent On metformin Heart failure HLD (hyperlipidemia) PAD (peripheral artery disease) Presence of stent in coronary artery TIA (transient ischemic attack) Procedure The risks and alternatives of the procedure and sedation were explained. Informed consent was obtained. The patient was brought to the tree tapping laborer and placed on the table. The planned puncture sites were prepped and draped in (more content not included)...[facility]01-29-2023 Miscellaneous Notes* Nursing Notes - Tasia Mancia RN - 04/27/2022 1:14 PM EST Patient and son received AVS instructions and RN reviewed along with medication list provided by physician. Patient denies any questions or concerns. Peripheral IVs and telemetry discontinued per physician order. Patient tolerated procedure without difficulty. Telemetry box returned to nurses station. Patient denies having any medications secured in medication room upon admission. Patient transported via wheelchair to the [facility] with belongings and copy of discharge instructions accompaniedby hospital staff. No signs or symptoms of distress noted. Patient and son's van driver is in route to the hospital. * Plan of Care - Tasia Mancia RN - 04/26/2022 1:34 PM EST 2 [place] Daily Rounding Plan of Care The following multidisciplinary plan of care was discussed with the attending service regarding Finesse Prather. Today's Plan of Care: Add 20 mg PO lasix, increase Zoloft Cardiac Monitoring Current Cardiac Monitoring order: yes Renewal order indicated: no 4 hour telemetry recall: SR BBB Oxygen O2 Sat (%): 94 % (04/26 1148) O2 Device: room air (04/26 114) LDAs The type, length of duration and necessity of all lines and drains listed below was reviewed, in order to prevent any possible sources of infection and encourage timely removal. Patient Lines/Drains/Airways Status Active Lines, Drains, Airways, & Wound Overview Name Placement date Placement time Site Days Peripheral IV Line - Single Lumen 04/20/22 2337 metacarpal vein (top of hand), left 20 gauge 04/20/22 2337 -- 5 Peripheral IV Line - Single Lumen 04/25/22 0847 forearm, posterior, left 20 gauge;1 3/4 in length 04/25/22 0847 -- 1 Wound Sheath Site 04/25/22 1102 Left Groin 04/25/22 1102 Groin 1 Wound Sheath Site 04/25/22 1102 Right Groin 04/25/22 1102 Groin 1 Mobility Activity plan: normal PT/OT: yes Need for DVT prophylaxis: yes Consults/Discharge Planning Social Work: no Case Management needs: yes Cardiac rehab: no Estimated Discharge Date: 04/27/2022 Tasia Mancia RN Problem: Patient Care Overview Goal: Plan of Care Review Outcome: Met This Shift Goal: Individualization & Mutuality Outcome: Met This Shift Goal: Discharge Needs Assessment Outcome: Ongoing Goal: Interdisciplinary Rounds/Family Conf Outcome: Ongoing Problem: Fall/Trauma/Injury Risk (Adult) Goal: Fall/Trauma/Injury Risk: Absence of Trauma/Injury/Falls Description: Patient will demonstrate the desired outcomes. Outcome: Ongoing Goal: Knowledge of risk factors/behavior modification Description: Knowledge of risk factors/behavior modification for fall/injury prevention Outcome: Ongoing Problem: Transcatheter Aortic Valve Replacement (TAVR) (Adult) Goal: Signs and Symptoms of Listed Potential Problems Will be Absent or Manageable Description: Signs and symptoms of listed potential problems will be absent or manageable by discharge/transition of care. Outcome: Ongoing Goal: Stable Weight Description: Patient will demonstrate the desired outcomes by discharge/transition of care. Outcome: Ongoing Problem: Nutrition, Imbalanced: Inadequate Oral Intake (Adult) Goal: Identify Related Risk Factors and Signs and Symptoms Description: Related risk factors and signs and symptoms are identified upon initiation of Human Response Clinical Practice Guideline (CPG) Outcome: Ongoing Problem: Diabetes, Type 2 (Adult) Goal: Signs and Symptoms of Listed Potential Problems Will be Absent, Minimized or Managed (Diabetes, Type 2) Description: Signs and symptoms of listed potential problems will be absent, minimized or managed by discharge/transition of care (reference Diabetes, Type 2 (Adult) CPG). Outcome: Ongoing * Plan of Care - Nathalie Damon RN - 04/25/2022 4:30 PM EST 2 [place] Daily Rounding Plan of Care The following multidisciplinary plan of care was discussed with the attending service regarding Finesse Prather. Today's Plan of Care: TAVR, BP monitoring and management Cardiac Monitoring Current Cardiac Monitoring order: yes Renewal order indicated no 4 hour telemetry recall: NSR Oxygen O2 Sat (%): 93 % (04/25 1918) O2 Device: room air (04/25 1918) LDAs The type, length of duration and necessity of all lines and drains listed below was reviewed, in order to prevent any possible sources of infection and encourage timely removal. Mccray indicated: No Central line indicated: No Patient Lines/Drains/Airways Status Active Lines, Drains, Airways, & Wound Overview Name Placement date Placement time Site Days Peripheral IV Line - Single Lumen 04/20/22 2337 metacarpal vein (top of hand), left 20 gauge 04/20/22 2337 -- 4 Peripheral IV Line - Single Lumen 04/25/22 0847 forearm, posterior, left 20 gauge;1 3/4 in length 04/25/22 0847 -- less than 1 Wound Sheath Site 04/25/22 1102 Anterior;Left Greater Trochanter 04/25/22 1102 Greater Trochanter less than 1 Wound Sheath Site 04/25/22 1102 Anterior;Right Greater Trochanter 04/25/22 1102 Greater Trochanter less than 1 Mobility Activity plan: with minor assitance PT/OT: yes Need for DVT prophylaxis: yes Lovenox Consults/Discharge Planning Social Work: no Case Management needs: yes Cardiac rehab: yes Estimated Discharge Date 04/26 Nathalie Damon RN * Op Note - Nicho Lucas MD - 04/25/2022 11:06 AM EST Structural Heart Operative Report DATE PERFORMED: 04/25/2022 PRE and POST OPERATIVE DIAGNOSES: Severe symptomatic calcific aortic stenosis. High risk surgical candidate. POSTOPERATIVE DIAGNOSES: Severe symptomatic calcific aortic stenosis. High risk surgical candidate. PROCEDURE: Transcatheter aortic valve replacement with a 23-mm Lerner Sapiens S3 valve via a right transfemoral approach. SURGEONS: .Nicho Lucas MD; Lino Portillo MD, PhD INDICATIONS: This is a 87 y.o. year old female with severe, symptomatic aortic stenosis. Following discussion atmultidisciplinary valve conference, the decision was made to proceed with TAVR. FINDINGS: Post procedure pressures: Mean gradient 0 mmHg. Access/Sheath: 14 percutaneous Lerner e sheath expandable introducer sheath Pacing during deployment: 180 bpm Depth of implantation: 15 % in ventricle Degree of aortic regurgitation at the end of the case: By angiogram: Trace. Contrast used: 48 ml. Anesthesia: Local/MAC PROCEDURE: The patient was taken to the operating room. The patient was prepped and draped. Access: Using Seldinger technique we placed a left common femoral artery 6-Mosotho sheath percutaneously. A 6 Mosotho pigtail was advanced over a guidewire into the ascending aorta and parked in the right sinus of Valsalva. A 9 iranian left venous sheath was placed in the femoral vein. A balloon catheter tip pacing wire was advanced into the RV and secured. Good capture was achieved. The right common femoral artery was then accessed percutaneously using Seldinger technique. The patient was heparinized. The artery was preclosed with the placement of two Perclose devices. A guidewire was inserted and a 8-Mosotho pigtail catheter was advanced into the descending thoracic aorta. We exchange the wire to an 0.035-inch Amplatz Super Stiff guidewire. The pigtail was removed and the artery was dilated. Then an Lerner esheath was inserted. The cannula was deaired. Then we shot a rootangiogram and we selected the deployment projection that allowed for all 3 cusps of the aortic valve to be aligned. Crossing of the Aortic Valve Then we crossed the aortic valve using an AL1 catheter with a soft tip straight guidewire. The catheter was advanced across the aortic valve into the left ventricle. The AL1 catheter was advanced allthe way in to the apex of the left ventricle and the wire was exchanged to a Confida wire. The AL1 was removed. Valve deployment: We then inserted an Lerner delivery system loaded with a 23 mm Lerner S3 valve along the femoral sheath and advanced through the extra stiff guidewire through the abdominal and thoracic aorta. We then loaded the valve into the balloon area using the pusher . Then we flex the catheter and advance it through the arch and ascending aorta and across the aortic valve annulus. We were 50% in the ventr icle at that time. We started rapid ventricular pacing.The pigtail was removed from the right sinus. This abolished ejection and dropped the blood pressure bellow 40mmHg. We then inflated the balloonand deployed the valve. Pacing was stopped. The patient tolerated this well. The delivery system was removed from the patient. The depth of implantation is described also in the finding section. The angiographic aortic insufficiency was as described in the finding session. There was good filling of the coronary arteries. We placed a pigtail in the LV and removed the stiff guidewire. Pullback pressures were measured in the LV and the aorta. We were very satisfied with this result and we decided to terminate the case. Sheath removal We then proceeded to remove completely the guidewire as well as the sheath, and we repaired the femoral artery with the previously placed Perclose devices. There was excellent pulsation distally to the repair. The site was hemostatic. Next, we removed the pigtail from the contralateral femoral artery sheath and we closed the artery with a Perclose device. We then removed the temporary pacing wire and the venous sheath. Protamine was administered. Hemostasis was performed in the groin. The patient was transferred stable to the PACU. Nicho Lucas MD Attending Surgeon Division of Cardiac Surgery * Brief Op Note - Nicho Lucas MD - 04/25/2022 11:06 AM EST Finesse Prather ([id number]) PRE OPERATIVE DIAGNOSIS Aortic valve stenosis, etiology of cardiac valve disease unspecified [I35.0] POST OPERATIVE DIAGNOSIS Post-Op Diagnosis Codes: * Aortic valve stenosis, etiology of cardiac valve disease unspecified [I35.0] PROCEDURE PERFORMED Procedure(s) (LRB): TAVR (N/A) PRIMARY CLOSURE N/A INTRAOPERATIVE FINDINGS No significant abnormalities SURGEON Surgeon(s) and Role: * Lino Portillo MD, PhD - Primary * Tito Bartholomew MD - Fellow * Nicho Lucas MD ANESTHESIOLOGIST No anesthesia staff entered. SURGICAL STAFF Cane Flume Chute Operator: CHIQUI Hernandez Portable Router Operator: Alok Molina Sedation Nurse: Miguel Ho RN; Barbie Garg, RN Documenter: Gely Marvin RN COMPLICATIONS None ESTIMATED BLOOD LOSS 50 ml SPECIMENS No specimen sent * No specimens in log * Nicho Lucas MD April 25, 2022 11:06 AM * Plan of Care - Radha Delgadillo OT - 04/24/2022 11:20 AM EST Problem: OT - Dressing Goal: Lower Body Dressing Description: Pt will complete LE dressing tasks with independence for improved ability to complete self-care activities. Outcome: Ongoing Problem: OT - ADLs Goal: Toileting Description: Pt will complete toileting task including clothing management with independence for improved ability to safely complete self-care activities. Outcome: Ongoing Problem: OT - Endurance Goal: Endurance Functional Mobilty Around Home Description: Pt will complete distance needed for common household mobility with modified independence. Outcome: Ongoing Problem: OT - Transfers Goal: Transfers Toilet/Bedside Commode Description: Pt will transfer to/from toilet/BSC with modified independence for improved ability tosafely complete ADLs. Outcome: Ongoing * Plan of Care - Nathalie Damon RN - 04/24/2022 10:28 AM EST 2 Trevor Daily Rounding Plan of Care The following multidisciplinary plan of care was discussed with the attending service regarding Finesse Prather. Today's Plan of Care: -Continue med regimen for BP management -TAVR scheduled 04/25, NPO midnight Cardiac Monitoring Current Cardiac Monitoring order: yes Renewal order indicated no 4 hour telemetry recall: NS Oxygen O2 Sat (%): 94 % (04/24 740) O2 Device: room air (04/24 740) LDAs The type, length of duration and necessity of all lines and drains listed below was reviewed, in order to prevent any possible sources of infection and encourage timely removal. Mccray indicated: No Central line indicated: No Patient Lines/Drains/Airways Status Active Lines, Drains, Airways, & Wound Overview Name Placement date Placement time Site Days Peripheral IV Line - Single Lumen 04/19/22 median cubital vein (antecubital fossa), left 20 gauge 04/19/22 -- -- 5 Peripheral IV Line - Single Lumen 04/20/22 2337 metacarpal vein (top of hand), left 20 gauge 04/20/22 2337 -- 3 Mobility Activity plan: with minor assitance PT/OT: yes Need for DVT prophylaxis: yes Subcutaneous lovenox Consults/Discharge Planning Social Work: no Case Management needs: no Cardiac rehab: no Estimated Discharge Date 04/26 Nathalie Damon RN * Plan of Care - Rosina Luke RN - 04/23/2022 11:29 PM EST Problem: Patient Care Overview Goal: Plan of Care Review Outcome: Ongoing Goal: Individualization & Mutuality Outcome: Ongoing Goal: Discharge Needs Assessment Outcome: Ongoing Goal: Interdisciplinary Rounds/Family Conf Outcome: Ongoing Problem: Fall/Trauma/Injury Risk (Adult) Goal: Fall/Trauma/Injury Risk: Absence of Trauma/Injury/Falls Description: Patient will demonstrate the desired outcomes. Outcome: Ongoing Problem: Transcatheter Aortic Valve Replacement (TAVR) (Adult) Goal: Signs and Symptoms of Listed Potential Problems Will be Absent or Manageable Description: Signs and symptoms of listed potential problems will be absent or manageable by discharge/transition of care. Outcome: Ongoing Goal: Stable Weight Description: Patient will demonstrate the desired outcomes by discharge/transition of care. Outcome: Ongoing Problem: Nutrition, Imbalanced: Inadequate Oral Intake (Adult) Goal: Identify Related Risk Factors and Signs and Symptoms Description: Related risk factors and signs and symptoms are identified upon initiation of Human Response Clinical Practice Guideline (CPG) Outcome: Ongoing * Plan of Care - Mena Torres RN - 04/23/2022 5:51 PM EST Interdisciplinary Daily Rounding Plan of Care The following multidisciplinary plan of care was discussed with the attending service regarding Finesse Prather. Cardiac Monitoring - Current Cardiac Monitoring order: yes - Renewal order indicated no - 24 hour telemetry recall: NSR Oxygen O2 Sat (%): 95 % (04/23 1500) O2 Device: room air (04/23 1500) Patient Lines/Drains/Airways Status Active Lines, Drains, Airways, & Wound Overview Name Placement date Placement time Site Days Peripheral IV Line - Single Lumen 04/19/22 median cubital vein (antecubital fossa), left 20 gauge 04/19/22 -- -- 4 Peripheral IV Line - Single Lumen 04/20/22 2337 metacarpal vein (top of hand), left 20 gauge 04/20/22 2337 -- 2 The team discussed and reviewed the need or discontinuation for all lines, drains, and devices listed below in order to prevent any possible sources of infection. - Mccray indicated: No - Central line indicated: No Accommodation Code - Code Status DNRCC-ARREST MEWS MEWS Score (Validated): -- RASS: 0-->alert and calm (04/23 1540) Pain DVPRS: Rest: 0- no pain DVPRS: Activity: 0- no pain Tyler Tyler Score: 20 Nutrition DIET HEART HEALTHY - 4 GM SODIUM Carb Controlled DIET NPO with meds Daily weights Wt Readings from Last 1 Encounters: 04/23/22 61.1 kg (134 lb 11.2 oz) Mobility - Activity plan: with minor assitance - PT/OT: yes - Cardiac Rehab consult: no - Need for DVT prophylaxis: yes Consults/Discharge Planning - Social Work: no - Case Management needs: no - Palliative: no - PT/OT: yes - Other: Plan Of Care - Tests: NA - Procedures: TAVR Thursday CURRENT HOSPITALIZATION/ LOS: Admit Date: 04/20/2022 [facility] LOS: 3 days ? MEDICATIONS: Scheduled Meds: aspirin 81 mg Oral Daily B Complex 1 capsule Oral Daily carveDILOL 25 mg Oral Q12H Cholecalciferol 5,000 Units Oral Daily Clopidogrel 75 mg Oral Daily enoxaparin 40 mg Subcutaneous Daily Ezetimibe 10 mg Oral Daily Insulin lispro Subcutaneous 4x daily w/meals, HS Sertraline 25 mg Oral Daily Continuous Infusions: ? ? Vital Signs: Vital Signs (24hrs): Temp: [97.6 F (36.4 C)-98.4 F (36.9 C)] 98.3 F (36.8 C) Pulse (Heart Rate): [57-81] 66 Resp Rate: [9-22] 14 BP: (153-183)/(60-79) 172/72 O2 Sat (%): [94 %-96 %] 95 % Weight: [61.1 kg (134 lb 11.2 oz)] 61.1 kg (134 lb 11.2 oz) DATA REVIEW: Fluid Management (24hrs): I/O last 3 completed shifts: In: 800 [P.O.:800] Out: 1500 [Urine:1500] Labs: Lab Results Component Value Date WBC 6.07 04/23/2022 HGB 11.3 (L) 04/23/2022 HCT 33.9 (L) 04/23/2022 PLATELET 224 04/23/2022 MCV 87.1 04/23/2022 Lab Results Component Value Date SODIUM 140 04/23/2022 POTASSIUM 4.7 04/23/2022 CHLORIDE 106 04/23/2022 CO2 24 04/23/2022 BUN 20 04/23/2022 CREATSERUM 0.57 04/23/2022 GLUCOSE 89 04/23/2022 Lab Results Component Value Date ALT 55 (H) 04/17/2022 AST 42 (H) 04/17/2022 ALKPHOS 93 04/17/2022 BILITOTAL 1.0 04/17/2022 BILIDIRECT 0.1 04/17/2022 ? Lab Results Component Value Date BNP 426 (H) 04/20/2022 No results found for: TSH, NYL67HFO, YLD91DSO, TSHBASELINE, TSHULTRASEN, TSHRFT4 ? Mena Torres RN * Plan of Care - Radha Finch RD - 04/23/2022 3:38 PM EST Problem: Nutrition, Imbalanced: Inadequate Oral Intake (Adult) Goal: Identify Related Risk Factors and Signs and Symptoms Description: Related risk factors and signs and symptoms are identified upon initiation of Human Response Clinical Practice Guideline (CPG) Outcome: Ongoing Note: Nutrition Recommendations and Plan of Care: 1. Continue current diet order as tolerated. 2. Will order Glucerna (220 kcal; 10g protein) x 1 daily to increase calorie and protein intake. 3. Recommend checking Mg, PO4, K+ daily and replacing as appropriate. 4. Monitor intakes, skin, labs, weight status, stool output. 5. RD to continue to follow. * Plan of Care - Radha Delgadillo OT - 04/23/2022 1:36 PM EST Problem: OT - ADLs Goal: Toileting Description: Pt will complete toileting task including clothing management with independence for improved ability to safely complete self-care activities. Outcome: Ongoing Problem: OT - Endurance Goal: Endurance Functional Mobilty Around Home Description: Pt will complete distance needed for common household mobility with modified independence. Outcome: Ongoing Problem: OT - Transfers Goal: Transfers Toilet/Bedside Commode Description: Pt will transfer to/from toilet/BSC with modified independence for improved ability tosafely complete ADLs. Outcome: Ongoing * Plan of Care - Rosina Luke RN - 04/22/2022 11:04 PM EST Problem: Patient Care Overview Goal: Plan of Care Review 04/22/20222302 by Rosina Luke RN Outcome: Ongoing 04/22/20222301 by Rosina Luke RN Outcome: Ongoing Goal: Individualization & Mutuality 04/22/20222302 by Rosina Luke RN Outcome: Ongoing 04/22/20222301 by Rosina Luke RN Outcome: Ongoing Goal: Discharge Needs Assessment 04/22/20222302 by Rosina Luke RN Outcome: Ongoing 04/22/20222301 by Rosina Luke RN Outcome: Ongoing Goal: Interdisciplinary Rounds/Family Conf 04/22/20222302 by Rosina Luke RN Outcome: Ongoing 04/22/20222301 by Rosina Luke RN Outcome: Ongoing Problem: Fall/Trauma/Injury Risk (Adult) Goal: Fall/Trauma/Injury Risk: Absence of Trauma/Injury/Falls Description: Patient will demonstrate the desired outcomes. 04/22/20222302 by Rosina Luke RN Outcome: Ongoing 04/22/20222301 by Rosina Luke RN Outcome: Ongoing Problem: Transcatheter Aortic Valve Replacement (TAVR) (Adult) Goal: Signs and Symptoms of Listed Potential Problems Will be Absent or Manageable Description: Signs and symptoms of listed potential problems will be absent or manageable by discharge/transition of care. Outcome: Ongoing Goal: Stable Weight Description: Patient will demonstrate the desired outcomes by discharge/transition of care. Outcome: Ongoing * Plan of Care - Valerie Bishop RN - 04/22/2022 5:43 PM EST 2 Ross Daily Rounding Plan of Care The following multidisciplinary plan of care was discussed with the attending service regarding Finesse Prather. Today's Plan of Care: - pt hypotensive with PT today, no change in meds - TAVR planned for 05/26 - renal ultrasound completed Cardiac Monitoring Current Cardiac Monitoring order: yes Renewal order indicated yes 4 hour telemetry recall: See Flowsheet Oxygen O2 Sat (%): 95 % (04/22 1500) O2 Device: room air (04/22 1500) LDAs The type, length of duration and necessity of all lines and drains listed below was reviewed, in order to prevent any possible sources of infection and encourage timely removal. - Mccray indicated: No - Central line indicated: No Patient Lines/Drains/Airways Status Active Lines, Drains, Airways, & Wound Overview Name Placement date Placement time Site Days Peripheral IV Line - Single Lumen 04/19/22 median cubital vein (antecubital fossa), left 20 gauge 04/19/22 -- -- 3 Peripheral IV Line - Single Lumen 04/20/22 2337 metacarpal vein (top of hand), left 20 gauge 04/20/22 2337 -- 1 Mobility Activity plan: independent but with effort PT/OT: yes Need for DVT prophylaxis: yes Consults/Discharge Planning Social Work: yes Case Management needs: yes Cardiac rehab: yes Estimated Discharge Date Unknown at this time Problem: Patient Care Overview Goal: Interdisciplinary Rounds/Family Conf Outcome: Met This Shift Problem: Patient Care Overview Goal: Plan of Care Review Outcome: Ongoing Goal: Individualization & Mutuality Outcome: Ongoing Problem: Patient Care Overview Goal: Discharge Needs Assessment Outcome: Progressing Toward Goal Valerie Bishop RN * Plan of Care - Rico Hicks PT - 04/22/2022 2:40 PM EST Problem: PT - Balance/Coordination/Neuro Re-Education Goal: Standing Dynamic/Static Balance Description: Pt will perform standing balance tasks for 10 minutes with supervision with appropriate assistive device as needed in order to improve functional mobility and safety with standing tasks. Outcome: Progressing Toward Goal Problem: PT - Mobility Goal: Ambulation Description: Pt will ambulate 150 feet with appropriate assistive device as needed with supervisionto improve ability to navigate home environment. Outcome: Progressing Toward Goal Problem: PT - Transfers Goal: Supine <-> Sit Description: Pt will perform bed mobility with flat bed & no rail with independence in order toimprove functional mobility and safety. Outcome: Progressing Toward Goal Goal: Sit <-> Stand Description: Pt will perform sit to/from stand transfers with supervision with appropriate assistive device as needed in order to improve functional mobility and safety. Outcome: Progressing Toward Goal Goal: Stand-Pivot Description: Pt will perform stand/pivot transfer to/from bed/chair/commode with supervision with appropriate assistive device as needed in order to improve functional mobility and safety. Outcome: Progressing Toward Goal Goal: Strength/ROM Description: Pt will perform 2 sets of 10 repetitions of lower bilateral extremity exercises with independence in order to improve strength, maintain ROM, necessary for functional mobility. Outcome: Progressing Toward Goal * Plan of Care - Rosina Luke RN - 04/22/2022 1:44 AM EST Problem: Patient Care Overview Goal: Plan of Care Review Outcome: Ongoing Goal: Individualization & Mutuality Outcome: Ongoing Goal: Discharge Needs Assessment Outcome: Ongoing Goal: Interdisciplinary Rounds/Family Conf Outcome: Ongoing Problem: Fall/Trauma/Injury Risk (Adult) Goal: Fall/Trauma/Injury Risk: Absence of Trauma/Injury/Falls Description: Patient will demonstrate the desired outcomes. Outcome: Ongoing * Plan of Care - Rico Hicks PT - 04/21/2022 3:20 PM EST Problem: PT - Mobility Goal: Ambulation Description: Pt will ambulate 150 feet with appropriate assistive device as needed with supervisionto improve ability to navigate home environment. Outcome: Progressing Toward Goal Problem: PT - Transfers Goal: Sit <-> Stand Description: Pt will perform sit to/from stand transfers with supervision with appropriate assistive device as needed in order to improve functional mobility and safety. Outcome: Progressing Toward Goal Goal: Stand-Pivot Description: Pt will perform stand/pivot transfer to/from bed/chair/commode with supervision with appropriate assistive device as needed in order to improve functional mobility and safety. Outcome: Progressing Toward Goal Goal: Strength/ROM Description: Pt will perform 2 sets of 10 repetitions of lower bilateral extremity exercises with independence in order to improve strength, maintain ROM, necessary for functional mobility. Outcome: Progressing Toward Goal * Plan of Care - Cristina Diaz RN - 04/21/2022 11:54 AM EST Problem: Patient Care Overview Goal: Plan of Care Review Outcome: Ongoing Goal: Individualization & Mutuality Outcome: Ongoing Goal: Discharge Needs Assessment Outcome: Ongoing Goal: Interdisciplinary Rounds/Family Conf Outcome: Ongoing Problem: Fall/Trauma/Injury Risk (Adult) Goal: Fall/Trauma/Injury Risk: Absence of Trauma/Injury/Falls Description: Patient will demonstrate the desired outcomes. Outcome: Ongoing * Plan of Care - Radha Delgadillo OT - 04/21/2022 11:29 AM EST Problem: OT - Dressing Goal: Lower Body Dressing Description: Pt will complete LE dressing tasks with independence for improved ability to complete self-care activities. Outcome: Ongoing Problem: OT - ADLs Goal: Toileting Description: Pt will complete toileting task including clothing management with independence for improved ability to safely complete self-care activities. Outcome: Ongoing Goal: Bathing Description: Pt will perform full body bathing routine with modified independence while seated for improved ability to complete self-care activities. Outcome: Ongoing Problem: OT - Endurance Goal: Endurance Functional Mobilty Around Home Description: Pt will complete distance needed for common household mobility with modified independence. Outcome: Ongoing Problem: OT - Transfers Goal: Transfers Toilet/Bedside Commode Description: Pt will transfer to/from toilet/BSC with modified independence for improved ability tosafely complete ADLs. Outcome: Ongoing * Plan of Care - Adolph Corea RN - 04/21/2022 1:57 AM EST Problem: Patient Care Overview Goal: Plan of Care Review Outcome: Progressing Toward Goal Goal: Individualization & Mutuality Outcome: Progressing Toward Goal Goal: Discharge Needs Assessment Outcome: Progressing Toward Goal Goal: Interdisciplinary Rounds/Family Conf Outcome: Progressing Toward Goal Problem: Fall/Trauma/Injury Risk (Adult) Goal: Fall/Trauma/Injury Risk: Absence of Trauma/Injury/Falls Description: Patient will demonstrate the desired outcomes. Outcome: Progressing Toward Goal Note: Observation of patient ambulation in with 1 person assist and gait belt. Gripper socks also provided for utilization when out of bed. Goal: Knowledge of risk factors/behavior modification Description: Knowledge of risk factors/behavior modification for fall/injury prevention Outcome: Progressing Toward Goal Problem: PT - Mobility Goal: Ambulation Description: Pt will ambulate 150 feet with appropriate assistive device as needed with supervisionto improve ability to navigate home environment. Outcome: Progressing Toward Goal Problem: PT - Transfers Goal: Supine <-> Sit Description: Pt will perform bed mobility with flat bed & no rail with independence in order toimprove functional mobility and safety. Outcome: Progressing Toward Goal Goal: Sit <-> Stand Description: Pt will perform sit to/from stand transfers with supervision with appropriate assistive device as needed in order to improve functional mobility and safety. Outcome: Progressing Toward Goal Goal: Stand-Pivot Description: Pt will perform stand/pivot transfer to/from bed/chair/commode with supervision with appropriate assistive device as needed in order to improve functional mobility and safety. Outcome: Progressing Toward Goal Goal: Strength/ROM Description: Pt will perform 2 sets of 10 repetitions of lower bilateral extremity exercises with independence in order to improve strength, maintain ROM, necessary for functional mobility. Outcome: Progressing Toward Goal Problem: OT - Dressing Goal: Lower Body Dressing Description: Pt will complete LE dressing tasks with independence for improved ability to complete self-care activities. Outcome: Progressing Toward Goal Problem: OT - ADLs Goal: Toileting Description: Pt will complete toileting task including clothing management with independence for improved ability to safely complete self-care activities. Outcome: Progressing Toward Goal Problem: OT - Endurance Goal: Endurance Functional Mobilty Around Home Description: Pt will complete distance needed for common household mobility with modified independence. Outcome: Progressing Toward Goal Problem: OT - Transfers Goal: Transfers Toilet/Bedside Commode Description: Pt will transfer to/from toilet/BSC with modified independence for improved ability tosafely complete ADLs. Outcome: Progressing Toward Goal * Plan of Care - Cristina Diaz RN - 04/20/2022 11:55 AM EST Problem: Patient Care Overview Goal: Plan of Care Review 04/20/2022 1155 by Cristina Diaz RN Outcome: Ongoing 04/20/2022 1154 by Cristina Diaz RN Outcome: Ongoing Goal: Individualization & Mutuality 04/20/2022 1155 by Cristina Diaz RN Outcome: Ongoing 04/20/2022 1154 by Cristina Diaz RN Outcome: Ongoing Goal: Discharge Needs Assessment 04/20/2022 1155 by Cristina Diaz RN Outcome: Ongoing 04/20/2022 1154 by Cristina Diaz RN Outcome: Ongoing Goal: Interdisciplinary Rounds/Family Conf 04/20/2022 1155 by Cristina Diaz RN Outcome: Ongoing 04/20/2022 1154 by Cristina Diaz RN Outcome: Ongoing Problem: Fall/Trauma/Injury Risk (Adult) Goal: Fall/Trauma/Injury Risk: Absence of Trauma/Injury/Falls Description: Patient will demonstrate the desired outcomes. Outcome: Ongoing * Plan of Care - Dontrell Garcia PT - 04/20/2022 9:51 AM EST Problem: PT - Mobility Goal: Ambulation Description: Pt will ambulate 150 feet with appropriate assistive device as needed with supervisionto improve ability to navigate home environment. Outcome: Ongoing Problem: PT - Transfers Goal: Supine <-> Sit Description: Pt will perform bed mobility with flat bed & no rail with independence in order toimprove functional mobility and safety. Outcome: Ongoing Goal: Sit <-> Stand Description: Pt will perform sit to/from stand transfers with supervision with appropriate assistive device as needed in order to improve functional mobility and safety. Outcome: Ongoing * Plan of Care - Radha Delgadillo OT - 04/20/2022 9:51 AM EST Problem: OT - Dressing Goal: Lower Body Dressing Description: Pt will complete LE dressing tasks with independence for improved ability to complete self-care activities. Outcome: Ongoing Problem: OT - ADLs Goal: Toileting Description: Pt will complete toileting task including clothing management with independence for improved ability to safely complete self-care activities. Outcome: Ongoing Goal: Bathing Description: Pt will perform full body bathing routine with modified independence while seated for improved ability to complete self-care activities. Outcome: Ongoing Problem: OT - Endurance Goal: Endurance Functional Mobilty Around Home Description: Pt will complete distance needed for common household mobility with modified independence. Outcome: Ongoing Problem: OT - Transfers Goal: Transfers Toilet/Bedside Commode Description: Pt will transfer to/from toilet/BSC with modified independence for improved ability tosafely complete ADLs. Outcome: Ongoing * Certification - Paul Blue MD - 04/20/2022 4:32 AM EST I certify that this patient requires inpatient services at this time. I anticipate the expected length of stay will include at least two midnights. Inpatient services are due to the following medicalconcerns aortic stenosis, shortness of breath. Plans for post hospitalization care will be discharge to home. Paul Blue MD Internal Medicine Resident, PGY-3 [facility] * Nursing Notes - Adolph Corea RN - 04/20/2022 3:45 AM EST Patient admitted to [facility] for uncontrolled HTN accompanied by SOB and chest pressure. Patient alert & oriented x4. No complaints of pain/SOB at this time. VSS, NSR/sinus bre on telemetry. Orders reviewed. Labs and ECG obtained. ACS resident notified of patient arrival. Plan to administer antihypertensives at this time, continue TAVR workup, and to adjust medications appropriately to maintain adequate blood pressures once home. Admissions questions asked and completed to the best ability of the patient at this time. On admission to , from outside facility a dual RN initial assessment of skin condition was performed by Adolph Corea RN and Dunia Franz RN. Skin Assessment: Skin within defined limits:Yes Tyler Score: 20 LDA Added:No Adolph Corea RN [facility]* Nursing Notes - Tasia Mancia RN - 04/27/2022 1:14 PM EST Patient and son received AVS instructions and RN reviewed along with medication list provided by physician. Patient denies any questions or concerns. Peripheral IVs and telemetry discontinued per physician order. Patient tolerated procedure without difficulty. Telemetry box returned to nurses station. Patient denies having any medications secured in medication room upon admission. Patient transported via wheelchair to the [place] lob with belongings and copy of discharge instructions accompaniedby hospital staff. No signs or symptoms of distress noted. Patient and son's van driver is in route to the hospital. [facility]01-29-2023 History of Present illness Narrative* Shyla Barbour - 04/27/2022 12:53 PM EST Images from the original note were not included. [facility] Delivery Note: The following medications were Tubed to the tube number 120: Shyla Barbour [place] Bedside Delivery: [phone] [place] Bedside Delivery: [phone] East: [phone] * Azeb Hansen RPH - 04/27/2022 11:32 AM EST Images from the original note were not included. [facility] Note: [facility] received the following discharge prescription(s): Total cost is $112.78. I have reviewed the Discharge Rx Reconciliation Report. Discharge date will be confirmed with team prior to delivery. The discharge prescription(s) will be Tubed to the patient on 04/27/2022. WALI Jeong [phone] Jay [phone] [facility] [phone] Bedside delivery [phone] * Tito Hunt MD - 04/26/2022 9:53 AM EST CHF/ACS/HRT1 DAILY PROGRESS NOTE IDENTIFYING INFORMATION PATIENT: Finesse Prather ADMIT DATE: 04/20/2022 TIME OF EVALUATION: 04/22/2022 9:53 AM HOSPITAL STAY: LOS: 5 days SUBJECTIVE/INTERVAL HISTORY Finesse Prather's events from the last 12-24 hours were reviewed. Pts Tavr procedure was performed yesterday. After procedure pt has a left bundle branch block. Pt had No acute events overnight. ASSESSMENT AND PLAN Finesse Prather is a 87 y.o. female with history of CAD s/p stents, Aortic Stenosis, Mitral Valve Stenosis, Heart Failure, PAD, Carotid Stenosis s/p TIA s/p endarteerectomy (L 2010, R 2017), HLD, HTN [id number] (non-insulin dependent) who presented to the OSH ([place]) with acute shortness of breath. Hypertension Patient with very labile pressures that have been quite difficult to control. Patient has twice in the last few weeks gone into flash pulmonary edema 2/2 hypertensive emergency. Her severe furthercomplicates anti-hypertensive dosing. No evidence of Renal A stenosis on US. - Urine metanephrines negative - Continue carvedilol 25mg BID - Can spot dose with low-dose hydralazine (would avoid higher doses given labile responses) Severe Aortic Stenosis Transferred here for continued TAVR workup. TTE with severe aortic stenosis: mean gradient 33 mmHg,valve area cont 0.69 cm2, valve vmax 3.36 m/s. - Pt post TAVR Post Operative LBBB - Will need 30 day event monitor at discharge. Hypertensive Emergency leading to Flash Pulmonary Edema -resolved. Pt [facility], found to have pulmonary edema and HTN, transferred back to our facility. On arrival to [facility] she was on room air sating mid 90s. At this time pt is afebrile with no increased white count and symptoms have recovered. Unlikely infectious etiology. Will differ abx at this time with low threshold to start. Unlikely PE as pt is has no signs or symptoms of DVT. Pt is asymptomatic at this time, and no hemoptysis. Most likely flash pulmonary edema given recent presentation and blood pressure at time. Ejection fraction is low normal (50-55%). Diastolic function is consistent with pseudonormalization (grade II) Right Ventricle: Chamber size is normal. Systolic function is normal. - Currently elevated jvd. Was previously on 10mg lasix. - Will start lasix 20mg today. Multivessel obstructive CAD, NSTEMI Hyperlipidemia Peripheral Arterial Disease Coronary angiography at OSH on 03/21/22 demonstrate 90% stenosis in mLAD, 90% stenosis in D1, 90% stenosis in ostial circumflex, 30% RCA in stent stenosis and 80% stenosis of distal RCA. S/P angiogram on 04/01/22 with 2 drug eluting stents to LAD. No chest pain during episode with high sensitivity troponin of 33 at osh with unremarkable ekg. - Continue ASA and Plavix - Not on statin as hx of muscle spasms - Continue home Ezetimibe at home - On omega-3 fa at home, not available on inpatient formulary - Telemetry Mild Protein Calorie Malnutrition Adm albumin 3.6, meets the following ASPEN criteria: Loss of muscle mass - protein supplementation as able - dietary consulted, appreciate recs Depression/Anxiety: - Increased sertraline Chronic Conditions: Diabetes Mellitus, Type 2 Non-insulin dependent: Well controlled, Hgb A1c 6.8. - Holding home metformin while admitted; SSI/CC FEN/GI: DIET heart healthy Ppx: levonox Dispo: ACS Code Status: DNRCC-ARREST Plan discussed with cardiology team Signed, Christie Hunt MD PGY1, Department of Emergency Medicine MEDICATIONS SCHEDULED: aspirin chewable tablet 81 mg, 81 mg, Daily B Complex capsule 1 capsule, 1 capsule, Daily balsam-castor oil (VENELEX) ointment 1 Application, 1 Application, TID carveDILOL (COREG) tablet 25 mg, 25 mg, Q12H cholecalciferol (VITAMIN D3) tablet 5,000 Units, 5,000 Units, Daily Clopidogrel (PLAVIX) tablet 75 mg, 75 mg, Daily Enoxaparin Sodium (LOVENOX) injection 40 mg, 40 mg, Daily Ezetimibe (ZETIA) 10 mg, 10 mg, Daily Insulin lispro (HUMALOG) injection, , 4x daily w/meals, HS Sertraline (ZOLOFT) tablet 25 mg, 25 mg, Daily FLUIDS/DRIPS: PRNs: Insulin lispro, , PRN And Dextrose, 7.5-25 g, As directed PRN And glucose, 1-2 Tube, As directed PRN Dextrose, 7.5-25 g, As directed PRN Docusate, 100 mg, BID PRN hydroCODone-acetaminophen, 1 tablet, Q6H PRN magnesium oxide, 800 mg, As directed PRN Magnesium Sulfate IVPB, 4 g, As directed PRN Ondansetron 4mg/2ml, 4 mg, Q4H PRN Potassium Bicarb-Citric Acid, 20-40 mEq, As directed PRN Potassium Bicarb-Citric Acid, 40-60 mEq, As directed PRN Sodium chloride, 2 spray, PRN Sodium chloride 0.9%, 250 mL, PRN ALLERGIES: She is allergic to statins. OBJECTIVE FINDINGS Vital Signs (24hrs): Temp: [97.3 F (36.3 C)-99.3 F (37.4 C)] 97.6 F (36.4 C) Pulse (Heart Rate): [55-180] 66 Resp Rate: [13-22] 16 BP: (100-197)/(51-84) 151/65 O2 Sat (%): [90 %-99 %] 93 % Weight: [60.6 kg (133 lb 9.6 oz)-61.6 kg (135 lb 12.9 oz)] 61.6 kg (135 lb 12.9 oz) Hemodynamic/Invasive Device Data (24 hrs): Pulmonary/Cardiac Hemodynamics Pulse (Heart Rate): 66 BSA (Calculated - sq m): 1.55 m2 Neuro ICP/CPP Monitoring MAP (mmHg): 94 mmHg Neuro ICP/CPP Monitoring 2 MAP (mmHg): 94 mmHg Ventilation/Oxygen Therapy (24hrs): Oxygen Therapy O2 Sat (%): 93 % O2 Device: room air Oxygen Delivery/Consumption Hemodynamics BSA (Calculated - sq m): 1.55 m2 Lines/Drains/Airways/Wounds: Patient Lines/Drains/Airways Status Active Lines, Drains, Airways, & Wound Overview Name Placement date Placement time Site Days Peripheral IV Line - Single Lumen 04/20/22 2337 metacarpal vein (top of hand), left 20 gauge 04/20/22 2337 -- 5 Peripheral IV Line - Single Lumen 04/25/22 0847 forearm, posterior, left 20 gauge;1 3/4 in length 04/25/22 0847 -- 1 Wound Sheath Site 04/25/22 1102 Left Groin 04/25/22 1102 Groin less than 1 Wound Sheath Site 04/25/22 1102 Right Groin 04/25/22 1102 Groin less than 1 Fluid Management (24hrs): -Intake/Output last 3 shifts: I/O last 3 completed shifts: In: 974.2 [P.O.:590; IV Piggyback:384.2] Out: 1450 [Urine:1450] Physical Examination: Gen: Well appearing, NAD HEENT: sclera anicteric, atraumatic CV: RRR, systolic murmer appreciated, elevated JVD Pulm: Normal effort, CTAB Abd: BS+. Soft, non-tender, non-distended Ext: Warm and well perfused. No edema Skin: No clearly visible rashes or lesions Neuro: A & O x3; responding appropriately to questions DIAGNOSTIC RESULTS/PROCEDURES Labs-ABGs Labs-CBC WBC/Hgb/Hct/Plts: 9.81/11.0/32.3/235 (04/26 304) Labs-Chem 7([facility]) Bun/Creat/Cl/CO2/Glucose: 15/0.63/105/22/126 (04/26 304) Na/K+/Phos/Mg/Ca: 137/4.2/--/1.8/-- (04/25 1116-04/26 304) Labs-Coags Ptt/Pt/Inr: 31.2/14.1/1.1 (04/25 1116) Additional Labs Lab Results Component Value Date BNP 530 (H) 04/25/2022 BNP 426 (H) 04/20/2022 BNP 553 (H) 04/17/2022 No results found for: TROP Lab Results Component Value Date CHOLESTEROL 242 (H) 04/17/2022 TRIG 112 04/17/2022 HDL 48 04/17/2022 Imaging/Radiological Studies: ECHOCARDIOGRAM Final Result XR CHEST PORTABLE Final Result IMPRESSION: Skinfold at the right lateral apex. Mild edema. Linear atelectatic changes. DUPLEX RENAL BILATERAL Final Result Consults/Procedures: IP CONSULT TO PHYSICAL THERAPY IP CONSULT TO OCCUPATIONAL THERAPY IP CONSULT TO NUTRITION IP CONSULT TO CARDIAC REHAB Associated attestation - Haven Stevenson MD - 04/27/2022 12:59 PM EST Attending Addendum: I saw and personally examined this patient on 04/26/22 during cardiology inpatient rounds with the Cardiology Residents and Fellow. We reviewed this patients pertinent signs and symptoms, recent laboratory data, and CV testing and the impression and plan was discussed and is documented in the note. I have edited the note in its essential parts to reflect my plan for this patient. Overall, doing well post TAVR. With some evidence of volume overload, plan to initiate Lasix. Continue carvedilol, consider additional antihypertensive therapies pending blood pressures, the blood pressures appear to be somewhat labile at this time. New left bundle-branch block post TAVR, but no evidence of worsening heart failure or higher degree heart block. Plan to discharge with satellite project site monitor for further evaluation. Haven Stevenson MD Attending Physician Interventional Heart Failure & Cardiac Transplant Pager: [phone] * Tito Hunt MD - 04/25/2022 4:21 PM EST CHF/ACS/HRT1 DAILY PROGRESS NOTE IDENTIFYING INFORMATION PATIENT: Finesse Prather ADMIT DATE: 04/20/2022 TIME OF EVALUATION: 04/22/2022 4:21 PM HOSPITAL STAY: LOS: 5 days SUBJECTIVE/INTERVAL HISTORY Finesse Prather's events from the last 12-24 hours were reviewed. No acute events overnight. ASSESSMENT AND PLAN Finesse Prather is a 87 y.o. female with history of CAD s/p stents, Aortic Stenosis, Mitral Valve Stenosis, Heart Failure, PAD, Carotid Stenosis s/p TIA s/p endarteerectomy (L 2010, R 2017), HLD, HTN [id number] (non-insulin dependent) who presented to the OSH ([facility]) with acute shortness of breath yesterday evening. Hypertension Patient with very labile pressures that have been quite difficult to control. Patient has twice in the last few weeks gone into flash pulmonary edema 2/2 hypertensive emergency. Her severe furthercomplicates anti-hypertensive dosing. No evidence of Renal A stenosis on US. - Urine metanephrines negative - Continue carvedilol 25mg BID - Can spot dose with low-dose hydralazine (would avoid higher doses given labile responses) Severe Aortic Stenosis Transferred here for continued TAVR workup. TTE with severe aortic stenosis: mean gradient 33 mmHg,valve area cont 0.69 cm2, valve vmax 3.36 m/s. - Plan for TAVR 04/23, keeping inpatient until procedure - post tavr recs appreciated- will need asa Hypertensive Emergency leading to Flash Pulmonary Edema and AHRF Pt presented to OSH shortly after dc [facility] for SOB, found to have pulmonary edema and HTN, transferred back to our facility. On arrival to [facility] she was on room air sating mid 90s. At this time pt is afebrile with no increased white count and symptoms have recovered. Unlikely infectious etiology. Will differ abx at this time with low threshold to start. Unlikely PE as pt is has no signs or symptoms of DVT. Pt is asymptomatic at this time, and no hemoptysis. Most likely flash pulmonary edema given recent presentation and blood pressure at time. - Currently asymptomatic - Tavr today Multivessel obstructive CAD, NSTEMI Hyperlipidemia Peripheral Arterial Disease Coronary angiography at OSH on 03/21/22 demonstrate 90% stenosis in mLAD, 90% stenosis in D1, 90% stenosis in ostial circumflex, 30% RCA in stent stenosis and 80% stenosis of distal RCA. S/P angiogram on 04/01/22 with 2 drug eluting stents to LAD. No chest pain during episode with high sensitivity troponin of 33 at osh with unremarkable ekg. - Continue ASA and Plavix - Not on statin as hx of muscle spasms - Continue home Ezetimibe at home - On omega-3 fa at home, not available on inpatient formulary - Telemetry Mild Protein Calorie Malnutrition Adm albumin 3.6, meets the following ASPEN criteria: Loss of muscle mass - protein supplementation as able - dietary consulted, appreciate recs Chronic Conditions: Diabetes Mellitus, Type 2 Non-insulin dependent: Well controlled, Hgb A1c 6.8. - Holding home metformin while admitted; SSI/CC Depression: Continue sertraline FEN/GI: DIET heart healthy Ppx: levonox Dispo: ACS Code Status: DNRCC-ARREST Plan discussed with cardiology team Signed, Christie Hunt MD PGY1, Department of Emergency Medicine MEDICATIONS SCHEDULED: [START ON 04/26/2022] aspirin chewable tablet 81 mg, 81 mg, Daily B Complex capsule 1 capsule, 1 capsule, Daily balsam-castor oil (VENELEX) ointment 1 Application, 1 Application, TID carveDILOL (COREG) tablet 25 mg, 25 mg, Q12H ceFAZolin (ANCEF) 2 g in dextrose 100 mL premix IVPB, 2 g, Q8HNS cholecalciferol (VITAMIN D3) tablet 5,000 Units, 5,000 Units, Daily Clopidogrel (PLAVIX) tablet 75 mg, 75 mg, Daily [Held by provider] Enoxaparin Sodium (LOVENOX) injection 40 mg, 40 mg, Daily Ezetimibe (ZETIA) 10 mg, 10 mg, Daily Insulin lispro (HUMALOG) injection, , 4x daily w/meals, HS Sertraline (ZOLOFT) tablet 25 mg, 25 mg, Daily Vancomycin HCl in NaCl (VANCOCIN) 1,000 mg in 200 ml NS premix IVPB, 1,000 mg, Q12HNS FLUIDS/DRIPS: PRNs: Insulin lispro, , PRN And Dextrose, 7.5-25 g, As directed PRN And glucose, 1-2 Tube, As directed PRN Dextrose, 7.5-25 g, As directed PRN Docusate, 100 mg, BID PRN hydroCODone-acetaminophen, 1 tablet, Q6H PRN magnesium oxide, 800 mg, As directed PRN Magnesium Sulfate IVPB, 4 g, As directed PRN Ondansetron 4mg/2ml, 4 mg, Q4H PRN Potassium Bicarb-Citric Acid, 20-40 mEq, As directed PRN Potassium Bicarb-Citric Acid, 40-60 mEq, As directed PRN Sodium chloride, 2 spray, PRN Sodium chloride 0.9%, 250 mL, PRN ALLERGIES: She is allergic to statins. OBJECTIVE FINDINGS Vital Signs (24hrs): Temp: [97.3 F (36.3 C)-98.7 F (37.1 C)] 97.3 F (36.3 C) Pulse (Heart Rate): [55-180] 111 Resp Rate: [10-22] 22 BP: (100-197)/(51-84) 100/57 O2 Sat (%): [90 %-99 %] 90 % Weight: [60.6 kg (133 lb 9.6 oz)] 60.6 kg (133 lb 9.6 oz) Hemodynamic/Invasive Device Data (24 hrs): Pulmonary/Cardiac Hemodynamics Pulse (Heart Rate): 111 BSA (Calculated - sq m): 1.55 m2 Neuro ICP/CPP Monitoring MAP (mmHg): 73 mmHg Neuro ICP/CPP Monitoring 2 MAP (mmHg): 73 mmHg Ventilation/Oxygen Therapy (24hrs): Oxygen Therapy O2 Sat (%): 90 % O2 Device: high-flow nasal cannula Oxygen Delivery/Consumption Hemodynamics BSA (Calculated - sq m): 1.55 m2 Lines/Drains/Airways/Wounds: Patient Lines/Drains/Airways Status Active Lines, Drains, Airways, & Wound Overview Name Placement date Placement time Site Days Peripheral IV Line - Single Lumen 04/20/22 2337 metacarpal vein (top of hand), left 20 gauge 04/20/22 2337 -- 4 Peripheral IV Line - Single Lumen 04/25/22 0847 forearm, posterior, left 20 gauge;1 3/4 in length 04/25/22 0847 -- less than 1 Wound Sheath Site 04/25/22 1102 Anterior;Left Greater Trochanter 04/25/22 1102 Greater Trochanter less than 1 Wound Sheath Site 04/25/22 1102 Anterior;Right Greater Trochanter 04/25/22 1102 Greater Trochanter less than 1 Fluid Management (24hrs): -Intake/Output last 3 shifts: I/O last 3 completed shifts: In: 280 [P.O.:280] Out: 1375 [Urine:1375] Physical Examination: Gen: Well appearing, NAD HEENT: sclera anicteric, atraumatic CV: RRR, systolic murmer appreciated, no clearly apparent JVD Pulm: Normal effort, CTAB Abd: BS+. Soft, non-tender, non-distended Ext: Warm and well perfused. No edema Skin: No clearly visible rashes or lesions Neuro: A & O x3; responding appropriately to questions DIAGNOSTIC RESULTS/PROCEDURES Labs-ABGs Labs-CBC WBC/Hgb/Hct/Plts: 7.88/10.6/32.1/204 (04/25 1116) Labs-Chem 7([facility]) Bun/Creat/Cl/CO2/Glucose: 21/0.64/106/24/150 (04/25 1116) Na/K+/Phos/Mg/Ca: 138/4.5/--/1.8/-- (04/25 1116) Labs-Coags Ptt/Pt/Inr: 31.2/14.1/1.1 (04/25 1116) Additional Labs Lab Results Component Value Date BNP 530 (H) 04/25/2022 BNP 426 (H) 04/20/2022 BNP 553 (H) 04/17/2022 No results found for: TROP Lab Results Component Value Date CHOLESTEROL 242 (H) 04/17/2022 TRIG 112 04/17/2022 HDL 48 04/17/2022 Imaging/Radiological Studies: ECHOCARDIOGRAM Final Result XR CHEST PORTABLE Final Result IMPRESSION: Skinfold at the right lateral apex. Mild edema. Linear atelectatic changes. DUPLEX RENAL BILATERAL Final Result Consults/Procedures: IP CONSULT TO PHYSICAL THERAPY IP CONSULT TO OCCUPATIONAL THERAPY IP CONSULT TO NUTRITION IP CONSULT TO CARDIAC REHAB Associated attestation - Kailey Paniagua MD - 04/25/2022 4:29 PM EST I have personally seen and examined the patient independently and with the [facility] Team. I agree with the assessment and plan above with appropriate editing of the entire note above. The patient remains clinically stable with left bundle branch block following TAVR procedure. We will monitor overnight with ongoing careful assessment of conduction system. Sara Paniagua MD * Duncan Coleman - 04/25/2022 2:10 PM EST Inpatient Cardiac Rehab Consultation Completed. RN approved, as tolerated, and patient agreeable tovisit. Patient reports feeling OK without complaints. Patient demonstrated IS x 3 up to 500 mL withproper technique. Activity Session: Per RN, patient on bedrest, and activity held at this time. Positioning Supine HOB, call light within reach RN notified/aware. Encouraged continued ambulation and discussed appropriate activity progression. Patient participation in outpatient cardiac rehab was discussed. Patient and family ultimately decided against cardiac rehab d/t not having insurance coverage and not wanting to pay out of pocket. Encouraged appropriate cardio-based exercise at home. AMB REFERRAL TO CARDIAC REHAB HAS BEEN PENDED. PLEASE REVIEW AND SIGN ORDER PRIOR TO DISCHARGE SO THE AMB REFERRAL CAN BE SENT TO APPROPRIATE FACILITY BY THE INPATIENT REHAB TEAM. Discharge education provided to the patient. Printed materials provided/reviewed: TAVR book. Patient s questions/concerns were addressed and topics below were discussed. 1. TAVR Site Care 2. Activity Restrictions 3. Heart Healthy Dietary Guidelines - Low Sodium Diet Recommendations 4. Daily Weight Monitoring 5. Cardiac Medications 6. Signs/Symptoms to Monitor/Report 7. Risk Factor Modification/Reduction 8. Activity Guidelines/Recommendations 9. When to Call the Doctor We will continue to follow up with patient as needed until discharge for education review and activity progression. VANESSA Kiser ([phone]) IP Cardiopulmonary & Vascular Rehab * SOULEYMANE Genao - 04/25/2022 12:26 PM EST Cardiac Surgery Post-Operative Check Finesse Prather is a 87 y.o. female who is now status post Transcatheter aortic valve replacement with a 23-mm Lerner Sapiens S3 valve via a right transfemoral approach. I came to evaluate the patienton 2 Ross. Patient reports she is doing well. Vitals: BP 175/76 (BP Location: Left arm, BP Position: Lying) Pulse 64 Temp 97.8 F (36.6 C) (Oral) Resp 15 Ht 1.499 m (4' 11) Wt 60.6 kg (133 lb 9.6 oz) SpO2 91% BMI 26.98 kg/m Smoking Status Never Physical: Gen: laying in bed, NAD Lung: no increased work of breathing, bilateral breath sounds Cardiac: regular rate and rhythm Abdomen: soft, appropriately tender to palpation, non-distended; Extremities: no cyanosis, bilateral femoral groin dressing in place, clean dry and intact, pulse exam as below: Pulses: R dorsalis pedis: + L dorsalis pedis: + R posterior tibial: + L posterior tibial: + Finesse Prather is a 87 y.o. female who is now s/p TAVR. she is recovering well post-operatively. EKG: Pre procedure: Sinus Bradycardia, Rate 59 bpm, DC 136 ms, QRS 92 ms. POST TAVR: Normal Sinus Rhythm, LBBB Rate 63 bpm, 156 ms, QRS 152 ms Echocardiogram: (pending) Plan: - Post Procedure Rhythm: Normal Sinus Rhythm, LBBB (new), please arrange for outpatient 30-d rhythmmonitor at the time of discharge (ordered). If 2nd degree type II or 3rd degree heart block is observed (even transiently), please consult electrophysiology for evaluation and likely pacemaker implantation. - Aortic Stenosis s/p TAVR: Antiplatelet: aspirin 81 mg daily. - monitor bilateral femoral sites - neuro checks Disposition: Home with family to care for her. Jacinta Sebastian, RN, MSN, [employer] MANAGER Structural Heart Disease Nurse Practitioner Pager [phone] * Rico Hicks, PT - 04/25/2022 8:32 AM EST Physical Therapy Attempt Note 04/25/2022 PT Therapy Completed: Attempted Attempted Reason: Patient is unavailable due to test/procedure Rico Hicks, PT Time In: 831 Time Out: 0832 Total Visit Time: 0 minutes Total Treatment Time (skilled, billable minutes): 0 minutes * Tito Hunt MD - 04/24/2022 1:58 PM EST CHF/ACS/HRT1 DAILY PROGRESS NOTE IDENTIFYING INFORMATION PATIENT: Finesse Prather ADMIT DATE: 04/20/2022 TIME OF EVALUATION: 04/22/2022 1:58 PM HOSPITAL STAY: LOS: 5 days SUBJECTIVE/INTERVAL HISTORY Finesse Prather's events from the last 12-24 hours were reviewed. No acute events overnight. ASSESSMENT AND PLAN Finesse Prather is a 87 y.o. female with history of CAD s/p stents, Aortic Stenosis, Mitral Valve Stenosis, Heart Failure, PAD, Carotid Stenosis s/p TIA s/p endarteerectomy (L 2010, R 2017), HLD, HTN [id number] (non-insulin dependent) who presented to the OSH ([facility]) with acute shortness of breath yesterday evening. Hypertension Patient with very labile pressures that have been quite difficult to control. Patient has twice in the last few weeks gone into flash pulmonary edema 2/2 hypertensive emergency. Her severe furthercomplicates anti-hypertensive dosing. No evidence of Renal A stenosis on US. - Urine metanephrines negative - Continue carvedilol 25mg BID - Can spot dose with low-dose hydralazine (would avoid higher doses given labile responses) Severe Aortic Stenosis Transferred here for continued TAVR workup. TTE with severe aortic stenosis: mean gradient 33 mmHg,valve area cont 0.69 cm2, valve vmax 3.36 m/s. - Plan for TAVR 04/23, keeping inpatient until procedure Hypertensive Emergency leading to Flash Pulmonary Edema and AHRF Pt presented to OSH shortly after dc from [facility] for SOB, found to have pulmonary edema and HTN, transferred back to our facility. On arrival to [facility] she was on room air sating mid 90s. At this time pt is afebrile with no increased white count and symptoms have recovered. Unlikely infectious etiology. Will differ abx at this time with low threshold to start. Unlikely PE as pt is has no signs or symptoms of DVT. Pt is asymptomatic at this time, and no hemoptysis. Most likely flash pulmonary edema given recent presentation and blood pressure at time. - Currently asymptomatic - Tavr thursday Multivessel obstructive CAD, NSTEMI Hyperlipidemia Peripheral Arterial Disease Coronary angiography at OSH on 03/21/22 demonstrate 90% stenosis in mLAD, 90% stenosis in D1, 90% stenosis in ostial circumflex, 30% RCA in stent stenosis and 80% stenosis of distal RCA. S/P angiogram on 04/01/22 with 2 drug eluting stents to LAD. No chest pain during episode with high sensitivity troponin of 33 at osh with unremarkable ekg. - Continue ASA and Plavix - Not on statin as hx of muscle spasms - Continue home Ezetimibe at home - On omega-3 fa at home, not available on inpatient formulary - Telemetry Mild Protein Calorie Malnutrition Adm albumin 3.6, meets the following ASPEN criteria: Loss of muscle mass - protein supplementation as able - dietary consulted, appreciate recs Chronic Conditions: Diabetes Mellitus, Type 2 Non-insulin dependent: Well controlled, Hgb A1c 6.8. - Holding home metformin while admitted; SSI/CC Depression: Continue sertraline FEN/GI: DIET heart healthy Ppx: levonox Dispo: ACS Code Status: DNRCC-ARREST Plan discussed with cardiology team Signed, Christie Hunt MD PGY1, Department of Emergency Medicine MEDICATIONS SCHEDULED: [START ON 04/25/2022] aspirin chewable tablet 81 mg, 81 mg, Daily B Complex capsule 1 capsule, 1 capsule, Daily carveDILOL (COREG) tablet 25 mg, 25 mg, Q12H cholecalciferol (VITAMIN D3) tablet 5,000 Units, 5,000 Units, Daily [START ON 04/25/2022] Clopidogrel (PLAVIX) tablet 75 mg, 75 mg, Daily [Held by provider] Enoxaparin Sodium (LOVENOX) injection 40 mg, 40 mg, Daily Ezetimibe (ZETIA) 10 mg, 10 mg, Daily Insulin lispro (HUMALOG) injection, , 4x daily w/meals, HS Sertraline (ZOLOFT) tablet 25 mg, 25 mg, Daily FLUIDS/DRIPS: PRNs: [START ON 04/25/2022] ceFAZolin (ANCEF) IV intermittent, 2 g, manager call to Procedure [START ON 04/25/2022] chlorhexidine, 15 mL, manager call to Procedure Insulin lispro, , PRN And Dextrose, 7.5-25 g, As directed PRN And glucose, 1-2 Tube, As directed PRN Docusate, 100 mg, BID PRN magnesium oxide, 800 mg, As directed PRN Magnesium Sulfate IVPB, 4 g, As directed PRN [START ON 04/25/2022] Mupirocin, 1 Application, manager call to Procedure Potassium Bicarb-Citric Acid, 20-40 mEq, As directed PRN Potassium Bicarb-Citric Acid, 40-60 mEq, As directed PRN povidone-iodine, 1 Application, manager call to Procedure Sodium chloride, 2 spray, PRN Sodium chloride 0.9%, 250 mL, PRN [START ON 04/25/2022] Vancomycin (VANCOCIN) IVPB, 1,000 mg, manager call to Procedure ALLERGIES: She is allergic to statins. OBJECTIVE FINDINGS Vital Signs (24hrs): Temp: [97.4 F (36.3 C)-98.5 F (36.9 C)] 98.2 F (36.8 C) Pulse (Heart Rate): [56-70] 56 Resp Rate: [12-20] 16 BP: (117-176)/(58-74) 117/58 O2 Sat (%): [93 %-96 %] 96 % Weight: [62 kg (136 lb 11 oz)] 62 kg (136 lb 11 oz) Hemodynamic/Invasive Device Data (24 hrs): Pulmonary/Cardiac Hemodynamics Pulse (Heart Rate): 56 Neuro ICP/CPP Monitoring MAP (mmHg): 83 mmHg Neuro ICP/CPP Monitoring 2 MAP (mmHg): 83 mmHg Ventilation/Oxygen Therapy (24hrs): Oxygen Therapy O2 Sat (%): 96 % O2 Device: room air Lines/Drains/Airways/Wounds: Patient Lines/Drains/Airways Status Active Lines, Drains, Airways, & Wound Overview Name Placement date Placement time Site Days Peripheral IV Line - Single Lumen 04/19/22 median cubital vein (antecubital fossa), left 20 gauge 04/19/22 -- -- 5 Peripheral IV Line - Single Lumen 04/20/22 2337 metacarpal vein (top of hand), left 20 gauge 04/20/22 2337 -- 3 Fluid Management (24hrs): -Intake/Output last 3 shifts: I/O last 3 completed shifts: In: 920 [P.O.:920] Out: 1600 [Urine:1600] Physical Examination: Gen: Well appearing, NAD HEENT: sclera anicteric, atraumatic CV: RRR, systolic murmer appreciated, no clearly apparent JVD Pulm: Normal effort, CTAB Abd: BS+. Soft, non-tender, non-distended Ext: Warm and well perfused. No edema Skin: No clearly visible rashes or lesions Neuro: A & O x3; responding appropriately to questions DIAGNOSTIC RESULTS/PROCEDURES Labs-ABGs Labs-CBC WBC/Hgb/Hct/Plts: 5.78/10.3/31.2/205 (04/24 422) Labs-Chem 7([facility]) Bun/Creat/Cl/CO2/Glucose: 21/0.62/106/25/143 (04/24 422-04/24 1144) Na/K+/Phos/Mg/Ca: 138/4.4/--/--/-- (04/24 422) Labs-Coags Additional Labs Lab Results Component Value Date BNP 426 (H) 04/20/2022 BNP 553 (H) 04/17/2022 No results found for: TROP Lab Results Component Value Date CHOLESTEROL 242 (H) 04/17/2022 TRIG 112 04/17/2022 HDL 48 04/17/2022 Imaging/Radiological Studies: VASC DUPLEX RENAL BILATERAL Final Result ECHOCARDIOGRAM TRANSESOPHAGEAL (CHERYL) (Results Pending) Consults/Procedures: IP CONSULT TO PHYSICAL THERAPY IP CONSULT TO OCCUPATIONAL THERAPY IP CONSULT TO NUTRITION Associated attestation - Kailey Paniagua MD - 04/25/2022 8:06 AM EST I have personally seen and examined the patient independently and with the HR3 Team. I agree with the assessment and plan above with appropriate editing of the entire note above. The patient remains clinically stable awaiting TAVR on Thursday which is scheduled 2nd case. Vital signs have been reasonably stable with no recurrent pulmonary edema. Sara Paniagua MD * Radha Delgadillo, OT - 04/24/2022 11:20 AM EST Acute Occupational Therapy Treatment Prior to Admission AM-PAC Score: PRIOR LEVEL AM-PAC Activity Raw Score: 24 PRIOR LEVEL AM-PAC Mobility Raw Score: 24 Current AM-PAC score(s): CURRENT AM-PAC Activity Raw Score: 21 Based on the above AM-PAC score(s), and OT clinical judgment, discharge destination recommendation is: Home (With continued assistance from family.) Mobility equipment available at home: 2 wheeled walker ADL equipment available at home: shower chair Equipment recommendations for discharge: none Current therapy frequency recommendation(s) in acute: 3 times a week Precautions and Weightbearing Status: OT Existing Precautions/Restrictions: cardiac, fall Telemetry Patient Safety Communication Prior to Visit: Nursing Subjective: Patient received seated upright in bedside chair, agreeable to participate in OT treatment session this date. Patient notes, my family is very good support, they take good care of us Pain: General Pain Documentation (Adult, OB, Peds) Presence of Pain: denies pain/discomfort Objective/Observation: Vitals/Vitals Responses to Treatment: Pt seated in chair upon arrival to to room. Vitals HR (bpm) BP (mmHg) SpO2 (%) Start: 62 127/56 MAP: 81 Standin/62 MAP: 89 End: 118/57 MAP: 82 Pt left seated in chair with call light/needs in reach. Respiratory Status O2 Device: room air Cognition Overall Cognitive Status: Within Functional Limits Arousal/Alertness: Appropriate responses to stimuli Orientation Level: Oriented X4 Cognition Comments: Pleasant, agreeable ADL Assessment/Intervention: ADLs: Eating Assistance: Grooming Assistance: Stand by Grooming Location: standing at sink Grooming Deficit: Balance, Activity tolerance Grooming Skilled Rationale (Verbal/Tactile/Visual/Demonstration): Supervision, Facilitate positioning Grooming Intervention/Details: Pt stood at sink to wash hands Bathing Assistance: Stand by Bathing Location: standing at sink, seated at sink Bathing Deficit: Balance, Activity tolerance, Increased time to complete, Generalized weakness Bathing Skilled Rationale (Verbal/Tactile/Visual/Demonstration): Facilitate positioning, Setup, Energy Conservation Bathing Intervention/Details: Pt stood at sink in bathroom to wash bilat UE, chest, abdomen, perineal area, and buttocks in standing. Pt sat on chair to wash bilat LE. SBA for standing balance. UE Dressing Assistance: Set up supervision UE Dressing Location: seated in chair UE Dressing Deficit: Snaps, Pull around back UE Dressing Skilled Rationale (Verbal/Tactile/Visual/Demonstration): Setup UE Dressing Intervention/Details: Pt doffed/donned gown in seated with assistance to manage over medical lines LE Dressing Assistance: Stand by LE Dressing Location: seated in chair, standing LE Dressing Deficit: Increased time to complete, Activity tolerance, Balance LE Dressing Skilled Rationale (Verbal/Tactile/Visual/Demonstration): Facilitate positioning, Supervision LE Dressing Intervention/Details: Pt threaded briefs over bilat LE in seated, SBA for balance whilemanaging over hips in standing Toilet Assistance: Stand by Toileting Location: toilet Toileting Deficit: Grab bar use, Balance Toilet Skilled Rationale (Verbal/Tactile/Visual/Demonstration): Facilitate positioning, Supervision Toileting Intervention/Details: Pt voided on toilet and completed perineal hygiene in seated, SBA for balance while managing briefs over hips in standing Extremity Assessments: See OT Evaluation flowsheet for Extremity Measurement updates. Balance: Sitting Balance Static Sitting-Level of Assistance: Independent Dynamic Sitting-Level of Assistance: Supervision Standing Balance Static Standing-Level of Assistance: Stand-by assist Dynamic Standing-Level of Assistance: Stand-by assist Standing-Balance Support: Gait belt, 2 wheeled walker Skilled Rationale: Positioning, Verbal cues, Cues for increased safety Standing Balance Skilled Intervention/Details: Pt stood at sink in bathroom x~15 minutes while participating in functional tasks to promote increased endurance and activity tolerance. Unilateral use of UE on countertop for stability. Skin and Edema: Mobility Assessment/Intervention: Transfer Assessment/Intervention: Sit to Stand Transfer [place] Level: Sit->Stand: stand-by assist Assistive Device: Sit->Stand: armed chair Skilled Rationale: Positioning, Verbal cues, Initiation and execution of task Skilled Intervention/Details: Sit->Stand: 2x from bedside chair, 1x from toilet, 1x from chair in bathroom Stand to Sit Transfer [place] Level: Stand->Sit: stand-by assist Assistive Device: Stand->Sit: armed chair Skilled Rationale: Controlled descent for sitting, Verbal cues Skilled Intervention/Details: Stand->Sit: 1x to toilet, 1x to chair in bathroom, 1x to bedside chair Toilet Transfer [place] Level: Toilet: stand-by assist Assistive Device: Toilet: grab bars Skilled Rationale: Positioning, Cues for increased safety Skilled Intervention/Details: Toilet: SBA for balance to reduce risk of falls Functional Mobility: Functional Mobility [place] Level: Functional Mobility/Gait: (CGA without AD, progressing to SBA with use of AD) Assistive Device: Functional Mobility/Gait: gait belt, 2 wheeled walker Functional Mobility Distance: Distance needed for common household mobility, Distance needed for limited community mobility Ambulation Distance (Feet): 160 Functional Mobility Deficits: Activity tolerance, Balance, Generalized weakness, Slowed gait speed Functional Mobility Skilled Rationale: Verbal cues, Walker management/safety, Proper pacing, Cues for increased safety Skilled Intervention/Details - Functional Mobility/Gait: Pt completed within room functional mobility x20 feet + seated rest break + additional on unit mobility x140 feet. Pt initially required CGA and SLIDING JOINT MAKER for within room mobiltiy secondary to gait and postural instability. 2WW utilized for additonal mobility, and Pt progressed to SBA. Outcome Score(s): CURRENT AM-[facility] Daily Activity Inpatient Short Form Putting on/Taking Off Lower Body Clothin - A Little Assistance Bathin - A Little Assistance Toiletin - A Little Assistance Putting on/Taking Off Upper Body Clothin - No Assistance Groomin - No Assistance Eatin - No Assistance CURRENT AM-[facility] Activity Raw Score: 21 CURRENT AM-[facility] Activity Functional Limitation/Modifier: 32.79% Currently Impaired in Daily Activity- PROJECTED AM-PAC Activity Raw Score: 24 PROJECTED AM-PAC Activity Functional Limitation/Modifier: 0.00% - Interventions: Assessment & Plan: Patient continues to make progress towards established OT plan of care as evidenced by increased independence in bathing and LB dressing this date. Patient continues to be limited by deficits in balance, strength, endurance, activity tolerance impacting performance in ADLs and functional mobility. P atient will continue to benefit from skilled OT services to increase independence with self care tasks and reduce burden of care at discharge. Patient Instruction/Education this session: Patient Instruction: OT role, POC goals, RW management Plan for next session: energy conservation education, RW management Acute OT Goals Plan of Care by Radha Delgadillo OT at 04/24/2022 11:20 AM Version 1 of 1 Problem: OT - Dressing Goal: Lower Body Dressing Description: Pt will complete LE dressing tasks with independence for improved ability to complete self-care activities. Outcome: Ongoing Problem: OT - ADLs Goal: Toileting Description: Pt will complete toileting task including clothing management with independence for improved ability to safely complete self-care activities. Outcome: Ongoing Problem: OT - Endurance Goal: Endurance Functional Mobilty Around Home Description: Pt will complete distance needed for common household mobility with modified independence. Outcome: Ongoing Problem: OT - Transfers Goal: Transfers Toilet/Bedside Commode Description: Pt will transfer to/from toilet/BSC with modified independence for improved ability tosafely complete ADLs. Outcome: Ongoing OT treatment consisted of ADL retraining, balance training, energy conservation/endurance training,strengthening, and transfer training to work and progress towards above goal(s). Treating Therapist: Radha Delgadillo OT Additional Details: Co-evaluation/co-treatment performed?: No simultaneous skilled care performed I used facemask, protective eye shield, and gloves in today's patient interaction. Patient location at end of session: chair Alarms on at end of session: none and RN aware Needs in reach. Time In: 1039 Time Out: 1120 Total Visit Time: 41 minutes Total Treatment Time (skilled, billable minutes): 41 minutes Upon discontinuation of Acute Care Occupational Therapy Services or patient discharge from the hospital this note represents the current Occupational Therapy Discharge Summary. * Radha Chinchilla MD - 04/23/2022 3:41 PM EST CHF/ACS/HRT1 DAILY PROGRESS NOTE IDENTIFYING INFORMATION PATIENT: Finesse Prather ADMIT DATE: 04/20/2022 TIME OF EVALUATION: 04/22/2022 3:41 PM HOSPITAL STAY: LOS: 4 days SUBJECTIVE/INTERVAL HISTORY Finesse Prather's events from the last 12-24 hours were reviewed. Pt received coreg yesterday at 7pm. Pt then had bp of 112/55 at 10 and bp later at 172/70 at 3. Pt had episode of hypotension this am 80s/40s bp. Pts pressure improved over time with trendelenburg bed positioning. ASSESSMENT AND PLAN Finesse Prather is a 87 y.o. female with history of CAD s/p stents, Aortic Stenosis, Mitral Valve Stenosis, Heart Failure, PAD, Carotid Stenosis s/p TIA s/p endarteerectomy (L 2010, R 2017), HLD, HTN [id number] (non-insulin dependent) who presented to the OSH () with acute shortness of breath yesterday evening. Hypertension Patient with very labile pressures that have been quite difficult to control. Patient has twice in the last few weeks gone into flash pulmonary edema 2/2 hypertensive emergency. Her severe furthercomplicates anti-hypertensive dosing. No evidence of Renal A stenosis on US. - Urine metanephrines pending - Continue carvedilol 25mg BID - Can spot dose with low-dose hydralazine (would avoid higher doses given labile responses) Severe Aortic Stenosis Transferred here for continued TAVR workup. TTE with severe aortic stenosis: mean gradient 33 mmHg,valve area cont 0.69 cm2, valve vmax 3.36 m/s. - Plan for TAVR 04/23, keeping inpatient until procedure Hypertensive Emergency leading to Flash Pulmonary Edema and AHRF Pt presented to OSH shortly after dc from [facility] for SOB, found to have pulmonary edema and HTN, transferred back to our facility. On arrival to [facility] she was on room air sating mid 90s. At this time pt is afebrile with no increased white count and symptoms have recovered. Unlikely infectious etiology. Will differ abx at this time with low threshold to start. Unlikely PE as pt is has no signs or symptoms of DVT. Pt is asymptomatic at this time, and no hemoptysis. Most likely flash pulmonary edema given recent presentation and blood pressure at time. - Currently asymptomatic - Pt had episode of both hypotension and hypertension overnight. Will not adjust antihypertensive regiment at this time. - FU renal artery us. - FU metanephrins - Tavr thursday Multivessel obstructive CAD, NSTEMI Hyperlipidemia Peripheral Arterial Disease Coronary angiography at OSH on 03/21/22 demonstrate 90% stenosis in mLAD, 90% stenosis in D1, 90% stenosis in ostial circumflex, 30% RCA in stent stenosis and 80% stenosis of distal RCA. S/P angiogram on 04/01/22 with 2 drug eluting stents to LAD. No chest pain during episode with high sensitivity troponin of 33 at osh with unremarkable ekg. - Continue ASA and Plavix - Not on statin as hx of muscle spasms - Continue home Ezetimibe at home - On omega-3 fa at home, not available on inpatient formulary - Telemetry Mild Protein Calorie Malnutrition Adm albumin 3.6, meets the following ASPEN criteria: Loss of muscle mass - protein supplementation as able - dietary consulted, appreciate recs Chronic Conditions: Diabetes Mellitus, Type 2 Non-insulin dependent: Well controlled, Hgb A1c 6.8. - Holding home metformin while admitted; SSI/CC Depression: Continue sertraline FEN/GI: DIET heart healthy Ppx: levonox Dispo: ACS Code Status: DNRCC-ARREST Plan discussed with cardiology team Signed, Radha Chinchilla MD (Kate) PGY1, Department of Internal Medicine MEDICATIONS SCHEDULED: aspirin chewable tablet 81 mg, 81 mg, Daily B Complex capsule 1 capsule, 1 capsule, Daily carveDILOL (COREG) tablet 25 mg, 25 mg, Q12H cholecalciferol (VITAMIN D3) tablet 5,000 Units, 5,000 Units, Daily Clopidogrel (PLAVIX) tablet 75 mg, 75 mg, Daily Enoxaparin Sodium (LOVENOX) injection 40 mg, 40 mg, Daily Ezetimibe (ZETIA) 10 mg, 10 mg, Daily Insulin lispro (HUMALOG) injection, , 4x daily w/meals, HS Sertraline (ZOLOFT) tablet 25 mg, 25 mg, Daily FLUIDS/DRIPS: PRNs: Insulin lispro, , PRN And Dextrose, 7.5-25 g, As directed PRN And glucose, 1-2 Tube, As directed PRN Docusate, 100 mg, BID PRN magnesium oxide, 800 mg, As directed PRN Magnesium Sulfate IVPB, 4 g, As directed PRN Potassium Bicarb-Citric Acid, 20-40 mEq, As directed PRN Potassium Bicarb-Citric Acid, 40-60 mEq, As directed PRN Sodium chloride, 2 spray, PRN Sodium chloride 0.9%, 250 mL, PRN ALLERGIES: She is allergic to statins. OBJECTIVE FINDINGS Vital Signs (24hrs): Temp: [97.6 F (36.4 C)-98.4 F (36.9 C)] 98.3 F (36.8 C) Pulse (Heart Rate): [57-81] 66 Resp Rate: [9-22] 14 BP: (153-183)/(60-79) 172/72 O2 Sat (%): [94 %-96 %] 95 % Weight: [61.1 kg (134 lb 11.2 oz)] 61.1 kg (134 lb 11.2 oz) Hemodynamic/Invasive Device Data (24 hrs): Pulmonary/Cardiac Hemodynamics Pulse (Heart Rate): 66 Neuro ICP/CPP Monitoring MAP (mmHg): 104 mmHg Neuro ICP/CPP Monitoring 2 MAP (mmHg): 104 mmHg Ventilation/Oxygen Therapy (24hrs): Oxygen Therapy O2 Sat (%): 95 % O2 Device: room air Lines/Drains/Airways/Wounds: Patient Lines/Drains/Airways Status Active Lines, Drains, Airways, & Wound Overview Name Placement date Placement time Site Days Peripheral IV Line - Single Lumen 04/19/22 median cubital vein (antecubital fossa), left 20 gauge 04/19/22 -- -- 4 Peripheral IV Line - Single Lumen 04/20/22 2337 metacarpal vein (top of hand), left 20 gauge 04/20/22 2337 -- 2 Fluid Management (24hrs): -Intake/Output last 3 shifts: I/O last 3 completed shifts: In: 800 [P.O.:800] Out: 1500 [Urine:1500] Physical Examination: Gen: Well appearing, NAD HEENT: sclera anicteric, atraumatic CV: RRR, systolic murmer appreciated, no clearly apparent JVD Pulm: Normal effort, CTAB Abd: BS+. Soft, non-tender, non-distended Ext: Warm and well perfused. No edema Skin: No clearly visible rashes or lesions Neuro: A & O x3; responding appropriately to questions DIAGNOSTIC RESULTS/PROCEDURES Labs-ABGs Labs-CBC WBC/Hgb/Hct/Plts: 6.07/11.3/33.9/224 (04/23 509) Labs-Chem 7([facility]) Bun/Creat/Cl/CO2/Glucose: 20/0.57/106/24/167 (04/23 509-04/23 1149) Na/K+/Phos/Mg/Ca: 140/4.7/--/--/-- (04/23 509) Labs-Coags Additional Labs Lab Results Component Value Date BNP 426 (H) 04/20/2022 BNP 553 (H) 04/17/2022 No results found for: TROP Lab Results Component Value Date CHOLESTEROL 242 (H) 04/17/2022 TRIG 112 04/17/2022 HDL 48 04/17/2022 Imaging/Radiological Studies: VASC DUPLEX RENAL BILATERAL Final Result Consults/Procedures: IP CONSULT TO PHYSICAL THERAPY IP CONSULT TO OCCUPATIONAL THERAPY IP CONSULT TO NUTRITION Associated attestation - Kailey Paniagua MD - 04/24/2022 7:57 AM EST I have personally seen and examined the patient independently and with the HR3 Team. I agree with the assessment and plan above with appropriate editing of the entire note above. The patient denies chest pain, notes no recurrent respiratory insufficiency in the last 24 hours, and continues to demonstrate labile blood pressure. We will maintain current medical regimen pending reasonable stability with TAVR scheduled for Thursday. Sara Paniagua MD * Lauren Torres RN - 04/23/2022 2:52 PM EST Progression of Care Note Expected Discharge Date: 05/03/2022 Medical Milestones Remaining: plan for TAVR Tuesday 04/25 Patient Choice for Post-Acute Providers Anticipated discharge disposition: Home Anticipated Services at Discharge: Outpatient follow up Readmission Risk Score Risk of Readmission: 9.1 Category Reference: High:16-100 Mod-High:10-16 Mod-Low: 5-10 Low: 0-5 QUINTON Hannon RN Clinical Apparatus Engineering Technologist * Radha Finch RD - 04/23/2022 1:43 PM EST NUTRITION ASSESSMENT: CONSULT Nutrition Recommendations and Plan of Care: 1. Continue current diet order as tolerated. 2. Will order Glucerna (220 kcal; 10g protein) x 1 daily to increase calorie and protein intake. 3. Recommend checking Mg, PO4, K+ daily and replacing as appropriate. 4. Monitor intakes, skin, labs, weight status, stool output. 5. RD to continue to follow. Per HPI: 87 y.o. female with history of CAD s/p stents, Aortic Stenosis, Mitral Valve Stenosis, Heart Failure, PAD, Carotid Stenosis s/p TIA s/p endarteerectomy (L 2010, R 2017) , HLD, HTN and T2DM (non-insulin dependent) who presented to the O[facility] ([facility]) with acute shortness of breath yesterday evening. Past History Past medical, surgical, family, and social histories have been reviewed and are located elsewhere in the medical record. Nutrition History Unable to discuss nutritional status with pt at this time. Another discipline in room with pt upon visit. Will re attempt visit as able/appropriate. Per MST, pt reported she had not been eating poorly because of a decreased appetite and had not lost weight recently without trying. Pt ate 100% of breakfast and lunch this day. CBW is relatively stable from 03/12/22 weight per Care Everywhere. Last bm 04/23. Diet Order: Current Diet Orders Procedures DIET HEART HEALTHY - 4 GM SODIUM Carb Controlled Standing Status: Standing Number of Occurrences: 1 Order Specific Question: Additional Modifier: Answer: Carb Controlled DIET NPO with meds Standing Status: Standing Number of Occurrences: 1 Order Specific Question: NPO Meds: Answer: with meds Ht: 4 Wt: 61.1 kg IBW:44.3 kg %IBW: 138 BMI: 27.21 Weight History: Wt Readings from Last 8 Encounters: 04/23/22 61.1 kg (134 lb 11.2 oz) 04/19/22 61.5 kg (135 lb 9.3 oz) 04/05/22 60.6 kg (133 lb 11.2 oz) Per Care Everywhere: 62.14 kg-03/12/22 Meds reviewed: aspirin 81 mg Oral Daily B Complex 1 capsule Oral Daily carveDILOL 25 mg Oral Q12H Cholecalciferol 5,000 Units Oral Daily Clopidogrel 75 mg Oral Daily enoxaparin 40 mg Subcutaneous Daily Ezetimibe 10 mg Oral Daily Insulin lispro Subcutaneous 4x daily w/meals, HS Sertraline 25 mg Oral Daily Labs reviewed: Na/K+/Phos/Mg/Ca: 140/4.7/--/--/-- (04/23 509) Bun/Creat/Cl/CO2/Glucose: 20/0.57/106/24/167 (04/23 509-04/23 1148) WBC/Hgb/Hct/Plts: 6.07/11.3/33.9/224 (04/23 509) No results found for: PREALBUMIN No results found for: CRP Lab Results Component Value Date TRIG 112 04/17/2022 TRIG 143 04/01/2022 Lab Results Component Value Date ALT 55 (H) 04/17/2022 AST 42 (H) 04/17/2022 ALKPHOS 93 04/17/2022 BILITOTAL 1.0 04/17/2022 BILIDIRECT 0.1 04/17/2022 GI:;Last Bowel Movement: 04/23/22 Skin: ; Tyler Score: 20 Edema-- Estimated Nutrition Needs: Weight Used: 44.3 kg IBW EEN: [id number] (25-30 kcal/kg IBW) EPN: 53-66 (1.2-1.5 g/kg IBW) Malnutrition Diagnosis: Indications of Malnutrition: Unable to assess r/t another discipline in room with pt upon visit based on the AND/ASPEN Malnutrition Criteria 2012 ANDREW Garcia, KENNEY Pager: [phone] * Radha Delgadillo OT - 04/23/2022 1:36 PM EST Acute Occupational Therapy Treatment Prior to Admission AM-PAC Score: PRIOR LEVEL AM-PAC Activity Raw Score: 24 PRIOR LEVEL AM-PAC Mobility Raw Score: 24 Current AM-PAC score(s): CURRENT AM-PAC Activity Raw Score: 21 Based on the above AM-PAC score(s), and OT clinical judgment, discharge destination recommendation is: Home (Pt with pending procedure (TAVR). Anticipate Pt will be appropriate for discharge home with assistance from family.) Mobility equipment available at home: 2 wheeled walker ADL equipment available at home: shower chair Equipment recommendations for discharge: to be determined Current therapy frequency recommendation(s) in acute: 3 times a week Precautions and Weightbearing Status: OT Existing Precautions/Restrictions: cardiac, fall Telemetry Patient Safety Communication Prior to Visit: Nursing Subjective: Patient received seated upright in bedside chair, agreeable to participate in OT treatment session this date. Patient notes, that's the most I've done yet following participation in functional mobility. Pain: General Pain Documentation (Adult, OB, Peds) Presence of Pain: denies pain/discomfort Objective/Observation: Vitals/Vitals Responses to Treatment: Pt seated in chair upon arrival to to room. Vitals HR (bpm) BP (mmHg) SpO2 (%) Start: 160/71 MAP: 102 Seated, immediately following ambulation 190/77 MAP: 110 Seated, x~3 minutes following ambulation 180/78 MAP: 112 End: seated in chair 70 172/72 MAP: 104 97 Pt left seated in chair with call light/needs in reach. Respiratory Status O2 Device: room air Cognition Overall Cognitive Status: Within Functional Limits Arousal/Alertness: Appropriate responses to stimuli Orientation Level: Oriented X4 Following Commands: Follows all commands and directions without difficulty Safety Judgment: Good awareness of safety precautions Awareness of Errors: Good awareness of errors made Deficits: Fully aware of deficits Attention Span: Appears intact Memory: Appears intact Problem Solving: Able to problem solve independently ADL Assessment/Intervention: ADLs: Grooming Assistance: Stand by Grooming Location: standing at sink Grooming Deficit: Balance, Activity tolerance Grooming Skilled Rationale (Verbal/Tactile/Visual/Demonstration): Supervision, Facilitate positioning Grooming Intervention/Details: Pt stood at sink to wash hands Toilet Assistance: Stand by Toileting Location: toilet Toileting Deficit: Grab bar use, Balance Toilet Skilled Rationale (Verbal/Tactile/Visual/Demonstration): Facilitate positioning, Supervision Toileting Intervention/Details: Pt voided on toilet and completed perineal hygiene in seated, SBA for balance while managing briefs over hips before/after toileting. Extremity Assessments: See OT Evaluation flowsheet for Extremity Measurement updates. Balance: Sitting Balance Static Sitting-Level of Assistance: Independent Dynamic Sitting-Level of Assistance: Supervision Standing Balance Static Standing-Level of Assistance: Stand-by assist Dynamic Standing-Level of Assistance: Stand-by assist, Contact guard Standing-Balance Support: Gait belt Skilled Rationale: Positioning, Full extension to upright positioning/posture, Upright gaze/neck extension, Energy conservation, Cues for increased safety Mobility Assessment/Intervention: Transfer Assessment/Intervention: Sit to Stand Transfer [place] Level: Sit->Stand: stand-by assist Assistive Device: Sit->Stand: armed chair Skilled Rationale: Positioning, Verbal cues, Initiation and execution of task Skilled Intervention/Details: Sit->Stand: 3x from bedside chair, 1x from toilet Stand to Sit Transfer [place] Level: Stand->Sit: stand-by assist Assistive Device: Stand->Sit: armed chair Skilled Rationale: Controlled descent for sitting, Verbal cues Skilled Intervention/Details: Stand->Sit: 1x to toilet, 3x to bedside chair. Pt demonstrated good utilization of eccentric control throughout transfers Toilet Transfer [place] Level: Toilet: stand-by assist Skilled Rationale: Verbal cues, Controlled descent for sitting, Cues for increased safety Skilled Intervention/Details: Toilet: SBA for balance to reduce risk of falls Functional Mobility: Functional Mobility [place] Level: Functional Mobility/Gait: contact guard assist Assistive Device: Functional Mobility/Gait: gait belt Functional Mobility Distance: Distance needed for limited community mobility Ambulation Distance (Feet): 270 Functional Mobility Deficits: Activity tolerance, Decreased step length, Balance, Generalized weakness, Slowed gait speed Functional Mobility Skilled Rationale: Breathing strategies, Proper pacing, Cues for increased safety, Verbal cues, Energy conservation Skilled Intervention/Details - Functional Mobility/Gait: Pt completed within room functional mobility x20 feet + additional on unit mobility x250 feet with CGA for balance secondary to mild gait and postural instability. Cues for attention to slow, controlled breathing and fatigue levels throughoutambulation to promote self pacing and energy conservation. Pt verbalized understanding Outcome Score(s): CURRENT AM-PAC Daily Activity Inpatient Short Form Putting on/Taking Off Lower Body Clothin - A Little Assistance Bathin - A Little Assistance Toiletin - A Little Assistance Putting on/Taking Off Upper Body Clothin - No Assistance Groomin - No Assistance Eatin - No Assistance CURRENT AM-PAC Activity Raw Score: 21 CURRENT AM-PAC Activity Functional Limitation/Modifier: 32.79% Currently Impaired in Daily Activity- PROJECTED AM-PAC Activity Raw Score: 24 PROJECTED AM-PAC Activity Functional Limitation/Modifier: 0.00% - Interventions: Intervention 1 Intervention Name: UE Reaching Exercises Sets/Reps/Duration: 2x10 Details: Pt participated in UE reaching exercises in standing to promote BUE ROM, strength, reaching outside of [place], and overall dynamic standing balance for participation in ADLs/IADLs. Pt initiallyrequiring CGA for balance when reaching beyond [place]; however, progresses to SBA with improved stability observed. Assessment & Plan: Patient continues to make progress towards established OT plan of care as demonstrated by increasedactivity tolerance for participation in functional mobility greater distances this date, to simulate ambulation required within the household and community for ADL/IADL participation. Patient continues to be limited by deficits in balance, endurance, activity tolerance impacting performance in ADLsand functional mobility. Patient will continue to benefit from skilled OT services to increase independence with self care tasks and reduce burden of care at discharge. Patient Instruction/Education this session: Patient Instruction: OT role, POC goals, body mechanics, energy conservation Plan for next session: energy conservation education Acute OT Goals Plan of Care by Radha Delgadillo OT at 04/23/2022 1:36 PM Version 1 of 1 Problem: OT - ADLs Goal: Toileting Description: Pt will complete toileting task including clothing management with independence for improved ability to safely complete self-care activities. Outcome: Ongoing Problem: OT - Endurance Goal: Endurance Functional Mobilty Around Home Description: Pt will complete distance needed for common household mobility with modified independence. Outcome: Ongoing Problem: OT - Transfers Goal: Transfers Toilet/Bedside Commode Description: Pt will transfer to/from toilet/BSC with modified independence for improved ability tosafely complete ADLs. Outcome: Ongoing OT treatment consisted of ADL retraining, balance training, energy conservation/endurance training,strengthening and transfer training to work and progress towards above goal(s). Treating Therapist: Radha Delgadillo OT Additional Details: Co-evaluation/co-treatment performed?: No simultaneous skilled care performed I used facemask, protective eye shield, and gloves in today's patient interaction. Patient location at end of session: chair Alarms on at end of session: none Needs in reach. Time In: 1355 Time Out: 1423 Total Visit Time: 28 minutes Total Treatment Time (skilled, billable minutes): 28 minutes Upon discontinuation of Acute Care Occupational Therapy Services or patient discharge from the hospital this note represents the current Occupational Therapy Discharge Summary. * Rico Hicks, PT - 04/22/2022 10:47 AM EST Acute Physical Therapy Treatment Prior to Admission [facility] score(s): PRIOR LEVEL AM-PAC Mobility Raw Score: 24 PRIOR LEVEL AM-PAC Activity Raw Score: 24 Current AM-PAC score(s): CURRENT AM-PAC Mobility Raw Score: 17 Based on the above AM-PAC score(s) and PT clinical judgment, patient is a good candidate for discharge to (TBD) Mobility equipment available at home: 2 wheeled walker ADL equipment available at home: shower chair Equipment needed for discharge: to be determined Current therapy frequency recommendation in acute: Therapy Frequency: 5 times a week Precautions and Weightbearing Status: Existing Precautions/Restrictions: cardiac, fall Telemetry Patient Safety Communication Prior to Visit: Nursing (Jojo) Subjective: Pt agreeable to session Pain: General Pain Documentation (Adult, OB, Peds) Presence of Pain: denies pain/discomfort Objective/Observation: Vitals/Vitals Responses to Treatment: Pulse ox 90% with session. After return to sitting after gait(Pt needed to use toilet immediately) blood pressure taken: 82/39 MAP 57 HR 66, RN notified and into room and on retake: 101/47 MAP 68 HR 63. Exercises completed. Sitting again: 81/38 MAP 55 HR 73. Decision to return to bed was made by PT with RN approval and pt returned to bed. Supine: 89/46 MAP 64. RN aware of all, team (Dr. Hunt) notified and aware of all. Pt only reported slight dizziness and only mid session. Respiratory Status O2 Device: room air Cognition Overall Cognitive Status: Within Functional Limits Arousal/Alertness: Appropriate responses to stimuli Orientation Level: Oriented X4 Following Commands: Follows all commands and directions without difficulty Safety Judgment: Good awareness of safety precautions Balance: Sitting Balance Static Sitting-Level of Assistance: Standby Dynamic Sitting-Level of Assistance: Standby Skilled Rationale: Positioning, Sequencing, Hand placement, Verbal cues, Tactile cues Sitting Balance Skilled Intervention/Details: 6-7 minutes working on upright trunk and midline unsupported. Standing Balance Static Standing-Level of Assistance: Stand-by assist Dynamic Standing-Level of Assistance: Contact guard Skilled Rationale: Positioning, Sequencing, Hand placement, Verbal cues, Tactile cues, Energy conservation, Breathing strategies Standing Balance Skilled Intervention/Details: 2-3 minutes at sink completing hygiene working on full upright and midline. Mobility Assessment/Intervention: Supine to Sit Mobility [place] Level: Supine->Sit: stand-by assist Skilled Rationale: Positioning, Sequencing, Hand placement, Verbal cues, Energy conservation, Breathing strategies Sit to Supine Mobility [place] Level: Sit->Supine: contact guard assist Skilled Rationale: Positioning, Sequencing, Hand placement, Verbal cues, Tactile cues, Energy conservation, Breathing strategies, Technique of activity Transfer Assessment/Intervention: Sit to Stand Transfer [place] Level: Sit->Stand: contact guard assist Skilled Rationale: Positioning, Sequencing, Hand placement, Verbal cues, Tactile cues, Energy conservation, Breathing strategies Skilled Intervention/Details: Sit->Stand: x3 Stand to Sit Transfer [place] Level: Stand->Sit: contact guard assist Bed-Chair Transfer [place] Level: Bed<->Chair: contact guard assist Gait/Functional Mobility Assessment/Intervention: Gait Assessment [place] Level: Gait: stand-by assist Ambulation Distance (Feet): 15 Gait Deviations Identified: decreased taj, decreased gait speed, decreased stride length, decreased step length Gait Skilled Rationale: verbal, tactile, upright posture, improve foot placement Skilled Intervention/Details - Gait: Pt worked on midline and upright posture with good stable trunk and pelvis. Outcome Score(s): CURRENT [facility] Basic Mobility Inpatient Short Form Turning over in bed: 4 - No Assistance Sitting/standing from chair: 3 - A Little Assistance Moving from lying on back to sittin - A Little Assistance Moving to and from bed to chair: 3 - A Little Assistance Walk in hospital room: 3 - A Little Assistance Climbing 3-5 steps with a railin - Total Assistance CURRENT [facility] Mobility Raw Score: 17 CURRENT [facility] Mobility Functional Limitation/Modifier: 50.57% Currently Impaired in Basic Mobility- CK Interventions: Intervention 1 Intervention Name: Bilateral LE Active ROM Sets/Reps/Duration: 2 set of 15 repetitions Details: Completed in available and allowed ranges with direct cues from PT. goal was both strengthgains but also to see if LE exercises sitting in chair could improve her blood pressure after intial pressure was low with RN permission. Assessment & Plan: Pt was making good progress toward goals however limited by medical status. Focus to be gait to hertolerance. Plan for next session: Gait Acute PT Goals Plan of Care by Rico Hicks PT at 04/22/2022 2:40 PM Version 1 of 1 Problem: PT - Balance/Coordination/Neuro Re-Education Goal: Standing Dynamic/Static Balance Description: Pt will perform standing balance tasks for 10 minutes with supervision with appropriate assistive device as needed in order to improve functional mobility and safety with standing tasks. Outcome: Progressing Toward Goal Problem: PT - Mobility Goal: Ambulation Description: Pt will ambulate 150 feet with appropriate assistive device as needed with supervisionto improve ability to navigate home environment. Outcome: Progressing Toward Goal Problem: PT - Transfers Goal: Supine <-> Sit Description: Pt will perform bed mobility with flat bed & no rail with independence in order toimprove functional mobility and safety. Outcome: Progressing Toward Goal Goal: Sit <-> Stand Description: Pt will perform sit to/from stand transfers with supervision with appropriate assistive device as needed in order to improve functional mobility and safety. Outcome: Progressing Toward Goal Goal: Stand-Pivot Description: Pt will perform stand/pivot transfer to/from bed/chair/commode with supervision with appropriate assistive device as needed in order to improve functional mobility and safety. Outcome: Progressing Toward Goal Goal: Strength/ROM Description: Pt will perform 2 sets of 10 repetitions of lower bilateral extremity exercises with independence in order to improve strength, maintain ROM, necessary for functional mobility. Outcome: Progressing Toward Goal PT treatment consisted of Therapeutic Activity, Therapeutic Procedure, and Gait/Stair Training to work and progress towards above goal(s). Treating Therapist: Rico Hicks PT Additional Details: Co-evaluation/co-treatment performed?: No simultaneous skilled care performed I used gloves and facemask in today's patient interaction. Patient location at end of session: bed. Alarms on at end of session: bed alarm Needs in reach. Time In: 1006 Time Out: 1047 Total Visit Time: 41 minutes Total Treatment Time (skilled, billable minutes): 41 minutes Upon discontinuation of Acute Care Physical Therapy Services or patient discharge from the hospitalthis note represents the current Physical Therapy Discharge Summary. Rico Hicks PT, DPT Pager #: [phone] License #: [id number] * Tito Hunt MD - 04/22/2022 8:08 AM EST CHF/ACS/HRT1 DAILY PROGRESS NOTE IDENTIFYING INFORMATION PATIENT: Finesse Prather ADMIT DATE: 04/20/2022 TIME OF EVALUATION: 04/22/2022 8:09 AM HOSPITAL STAY: LOS: 4 days SUBJECTIVE/INTERVAL HISTORY Finesse Prather's events from the last 12-24 hours were reviewed. Pt received coreg yesterday at 7pm. Pt then had bp of 112/55 at 10 and bp later at 172/70 at 3. Pt had episode of hypotension this am 80s/40s bp. Pts pressure improved over time with trendelenburg bed positioning. ASSESSMENT AND PLAN Finesse Prather is a 87 y.o. female with history of CAD s/p stents, Aortic Stenosis, Mitral Valve Stenosis, Heart Failure, PAD, Carotid Stenosis s/p TIA s/p endarteerectomy (L 2010, R 2017) , HLD, HTN and T2DM (non-insulin dependent) who presented to the OSH () with acute shortness of breath yesterday evening. Acute hypoxic respiratory failure Pt presented to [facility] on room air sating mid 90s. At this time pt is afebrile with no increased whitecount and symptoms have recovered. Unlikely infectious etiology. Will differ abx at this time with low threshold to start. Unlikely pe as pt is has no signs or symptoms of dvt. Pt is asymptomatic at this time, and no hemoptysis. Most likely flash pulmonary edema given recent presentation and blood pressure at time. - Currently asymptomatic - Pt had episode of both hypotension and hypertension overnight. Will not adjust antihypertensive regiment at this time. - FU renal artery us. - FU metanephrins - Tavr thursday Multivessel obstructive coronary artery disease, NSTEMI Coronary angiography at OSH on 03/21/22 demonstrate 90% stenosis in mLAD, 90% stenosis in D1, 90% stenosis in ostial circumflex, 30% RCA in stent stenosis and 80% stenosis of distal RCA. S/P angiogram on 04/01/22 with 2 drug eluting stents to LAD. No chest pain during episode with high sensitivity troponin of 33 at osh with unremarkable ekg. - Continue ASA and Plavix - Telemetry - repeat ekg and troponin this am with symptoms of hypotension. -Troponin of 547 this am from 760. Will stop trending but continue to monitor - not on statin as hx of muscle spasms Severe Aortic Stenosis Transferred here for continued TAVR workup. - TTE showed severe aortic stenosis: mean gradient 33 mmHg, valve area cont 0.69 cm2, valve vmax 3.36 m/s. - Management as above. Essential Hypertension Home regimen: - Carvedilol Hyperlipidemia Reportedly had muscle spasm and pain with statin. - om ezetimibe at home, will hold for now - On omega-3 fa at home, but low dose not on inpatient formulary Peripheral Artery Disease - Continue ASA Diabetes Mellitus, Type 2 Non-insulin dependent Well controlled, Hgb A1c 6.8. - Holding home metformin while admitted - SSI/CC Depression - Continue sertraline FEN/GI: DIET heart healthy Ppx: levonox Dispo: ACS Code Status: DNRCC-ARREST Plan discussed with cardiology team Signed, Tito Hunt MD PGY-1, Emergency Medicine MEDICATIONS SCHEDULED: aspirin chewable tablet 81 mg, 81 mg, Daily B Complex capsule 1 capsule, 1 capsule, Daily carveDILOL (COREG) tablet 25 mg, 25 mg, Q12H cholecalciferol (VITAMIN D3) tablet 5,000 Units, 5,000 Units, Daily Clopidogrel (PLAVIX) tablet 75 mg, 75 mg, Daily Enoxaparin Sodium (LOVENOX) injection 40 mg, 40 mg, Daily Ezetimibe (ZETIA) 10 mg, 10 mg, Daily Insulin lispro (HUMALOG) injection, , 4x daily w/meals, HS Sertraline (ZOLOFT) tablet 25 mg, 25 mg, Daily FLUIDS/DRIPS: PRNs: Insulin lispro, , PRN And Dextrose, 7.5-25 g, As directed PRN And glucose, 1-2 Tube, As directed PRN Docusate, 100 mg, BID PRN magnesium oxide, 800 mg, As directed PRN Magnesium Sulfate IVPB, 4 g, As directed PRN Potassium Bicarb-Citric Acid, 20-40 mEq, As directed PRN Potassium Bicarb-Citric Acid, 40-60 mEq, As directed PRN Sodium chloride, 2 spray, PRN Sodium chloride 0.9%, 250 mL, PRN ALLERGIES: She is allergic to statins. OBJECTIVE FINDINGS Vital Signs (24hrs): Temp: [97.4 F (36.3 C)-98.4 F (36.9 C)] 98.4 F (36.9 C) Pulse (Heart Rate): [67-81] 68 Resp Rate: [9-24] 9 BP: (81-183)/(38-79) 183/79 O2 Sat (%): [92 %-96 %] 96 % Weight: [61.1 kg (134 lb 11.2 oz)] 61.1 kg (134 lb 11.2 oz) Hemodynamic/Invasive Device Data (24 hrs): Pulmonary/Cardiac Hemodynamics Pulse (Heart Rate): 68 Neuro ICP/CPP Monitoring MAP (mmHg): (!) 113 mmHg Neuro ICP/CPP Monitoring 2 MAP (mmHg): (!) 113 mmHg Ventilation/Oxygen Therapy (24hrs): Oxygen Therapy O2 Sat (%): 96 % O2 Device: room air Lines/Drains/Airways/Wounds: Patient Lines/Drains/Airways Status Active Lines, Drains, Airways, & Wound Overview Name Placement date Placement time Site Days Peripheral IV Line - Single Lumen 04/19/22 median cubital vein (antecubital fossa), left 20 gauge 04/19/22 -- -- 4 Peripheral IV Line - Single Lumen 04/20/22 2337 metacarpal vein (top of hand), left 20 gauge 04/20/22 2337 -- 2 Fluid Management (24hrs): -Intake/Output last 3 shifts: I/O last 3 completed shifts: In: 800 [P.O.:800] Out: 1200 [Urine:1200] Physical Examination: Gen: Well appearing, NAD HEENT: sclera anicteric, atraumatic CV: RRR, systolic murmer appreciated, no clearly apparent JVD Pulm: Normal effort, CTAB Abd: BS+. Soft, non-tender, non-distended Ext: Warm and well perfused. No edema Skin: No clearly visible rashes or lesions Neuro: A & O x3; responding appropriately to questions DIAGNOSTIC RESULTS/PROCEDURES Labs-ABGs Labs-CBC WBC/Hgb/Hct/Plts: 6.07/11.3/33.9/224 (04/23 509) Labs-Chem 7([facility]) Bun/Creat/Cl/CO2/Glucose: 20/0.57/106/24/149 (04/23 0510-04/23 0520) Na/K+/Phos/Mg/Ca: 140/4.7/--/--/-- (04/23 0510) Labs-Coags Additional Labs Lab Results Component Value Date BNP 426 (H) 04/20/2022 BNP 553 (H) 04/17/2022 No results found for: TROP Lab Results Component Value Date CHOLESTEROL 242 (H) 04/17/2022 TRIG 112 04/17/2022 HDL 48 04/17/2022 Imaging/Radiological Studies: VASC DUPLEX RENAL BILATERAL Final Result Consults/Procedures: IP CONSULT TO PHYSICAL THERAPY IP CONSULT TO OCCUPATIONAL THERAPY IP CONSULT TO NUTRITION Plan discussed with cardiology team Signed, Tito Hunt MD PGY-1, Emergency Medicine Associated attestation - Kailey Paniagua MD - 04/23/2022 1:31 PM EST I have personally seen and examined the patient independently and with the HR3 Team. I agree with the assessment and plan above with appropriate editing of the entire note above. Patient stable with ongoing fluctuation of systolic blood pressure but no recurrent flash pulmonary edema. We are awaiting TAVR on Thursday. Sara Paniagua MD * Radha Alatorrebertrand, OT - 04/21/2022 1:29 PM EST Acute Occupational Therapy Treatment Prior to Admission AM-PAC Score: PRIOR LEVEL AM-PAC Activity Raw Score: 24 PRIOR LEVEL AM-PAC Mobility Raw Score: 24 Current AM-PAC score(s): CURRENT AM-PAC Activity Raw Score: 19 Based on the above AM-PAC score(s), and OT clinical judgment, discharge destination recommendation is: (Home vs Home with home health) Mobility equipment available at home: 2 wheeled walker ADL equipment available at home: shower chair Equipment recommendations for discharge: to be determined Current therapy frequency recommendation(s) in acute: 5 times a week Precautions and Weightbearing Status: OT Existing Precautions/Restrictions: cardiac, fall Telemetry Patient Safety Communication Prior to Visit: Nursing Subjective: Patient received seated upright in bedside chair, agreeable to participate in OT treatment session this date. Patient notes, thanks for doing all that with me at end of session. Pain: General Pain Documentation (Adult, OB, Peds) Presence of Pain: denies pain/discomfort Objective/Observation: Vitals/Vitals Responses to Treatment: Pt seated in chair upon arrival to to room. Vitals HR (bpm) BP (mmHg) SpO2 (%) End: 76 95 Pt left seated in chair with call light/needs in reach. Respiratory Status O2 Device: room air Cognition Overall Cognitive Status: Within Functional Limits Arousal/Alertness: Appropriate responses to stimuli Orientation Level: Oriented X4 Following Commands: Follows all commands and directions without difficulty Safety Judgment: Good awareness of safety precautions Awareness of Errors: Good awareness of errors made Deficits: Fully aware of deficits Attention Span: Appears intact Memory: Appears intact Problem Solving: Able to problem solve independently Cognition Comments: Pleasant, agreeable ADL Assessment/Intervention: ADLs: Grooming Assistance: Stand by Grooming Location: standing at sink Grooming Deficit: Balance, Retrieval of items, Activity tolerance Grooming Skilled Rationale (Verbal/Tactile/Visual/Demonstration): Setup Grooming Intervention/Details: Pt stood at sink in bathroom while washing face, fixing hair, and brushing teeth, SBA for balance Bathing Assistance: Minimal Bathing Location: standing at sink Bathing Deficit: Wash/Dry Back, Balance, Activity tolerance Bathing Skilled Rationale (Verbal/Tactile/Visual/Demonstration): Facilitate positioning, Setup Bathing Intervention/Details: Pt stood at sink in bathroom and washed bilat UE, abdomen, chest, perineal area, buttocks, and upper portions of bilat LE. Pt sat to wash lower portions of bilat LE. Jacqueline required to wash back while standing at sink. UE Dressing Assistance: Stand by UE Dressing Location: standing UE Dressing Deficit: Balance, Pull down in back, Retrieval of items UE Dressing Skilled Rationale (Verbal/Tactile/Visual/Demonstration): Setup UE Dressing Intervention/Details: Pt doffed/donned gown following set up assistance to manage over medical lines. SBA for balance during participation. LE Dressing Assistance: Contact guard assist LE Dressing Location: standing, seated in chair LE Dressing Deficit: Increased time to complete, Activity tolerance, Balance, Pull up over hips LE Dressing Skilled Rationale (Verbal/Tactile/Visual/Demonstration): Facilitate positioning, Setup LE Dressing Intervention/Details: CGA for balance while managing briefs over hips in standing. Pt able to thread/unthread briefs and doff/don socks, utilizing forward trunk flexion, while seated on chair. Toilet Assistance: Contact guard assist Toileting Location: toilet Toileting Deficit: Grab bar use, Balance, Activity tolerance Toilet Skilled Rationale (Verbal/Tactile/Visual/Demonstration): Cues for increased safety, Facilitate positioning, Supervision Toileting Intervention/Details: Pt voided on toilet, CGA for balance while completing perineal hygiene in standing and managing briefs over hips. Extremity Assessments: See OT Evaluation flowsheet for Extremity Measurement updates. Balance: Sitting Balance Static Sitting-Level of Assistance: Supervision Dynamic Sitting-Level of Assistance: Standby Skilled Rationale: Finding/maintaining midline positioning Standing Balance Static Standing-Level of Assistance: Stand-by assist Dynamic Standing-Level of Assistance: Contact guard Skilled Rationale: Positioning, Cues for increased safety, Energy conservation Standing Balance Skilled Intervention/Details: Pt stood at sink in bathroom x~12-15 minutes while participating in functional tasks. Unilateral UE use on countertop for stability. Mobility Assessment/Intervention: Transfer Assessment/Intervention: Sit to Stand Transfer [place] Level: Sit->Stand: contact guard assist Assistive Device: Sit->Stand: armed chair Skilled Rationale: Positioning, Verbal cues, Initiation and execution of task Skilled Intervention/Details: Sit->Stand: 1x from bedside chair, 1x from toilet, 2x from chair in bathroom Stand to Sit Transfer [place] Level: Stand->Sit: contact guard assist Assistive Device: Stand->Sit: armed chair Skilled Rationale: Positioning, Verbal cues, Initiation and execution of task, Controlled descent for sitting Skilled Intervention/Details: Stand->Sit: 4x reps, cues to reach back for arm rests and utilize eccentric control for slow, controlled lowering to seated position Toilet Transfer [place] Level: Toilet: contact guard assist Assistive Device: Toilet: grab bars Skilled Rationale: Positioning, Verbal cues, Controlled descent for sitting Skilled Intervention/Details: Toilet: Pt utilized right sided grab bar for increased stability in transfer Functional Mobility: Functional Mobility [place] Level: Functional Mobility/Gait: contact guard assist (initially Min Ax1, progressing to CGA with Rt. SLIDING JOINT MAKER) Assistive Device: Functional Mobility/Gait: hand held assist Functional Mobility Distance: Distance needed to access restroom Ambulation Distance (Feet): 20 Functional Mobility Deficits: Activity tolerance, Balance, Generalized weakness, Slowed gait speed Functional Mobility Skilled Rationale: Facilitate positioning, Verbal cues Skilled Intervention/Details - Functional Mobility/Gait: Pt completed within room functional mobility bedside chair<>bathroom. pt initially required Min A for balance secondary to mild gait instability/postural sway; however, progressed to CGA for ambulation bathroom>bedside chair. Rt sided SLIDING [employer]ER provided for improved stability and to reduce risk of falls Outcome Score(s): CURRENT AM-PAC Daily Activity Inpatient Short Form Putting on/Taking Off Lower Body Clothin - A Little Assistance Bathin - A Little Assistance Toiletin - A Little Assistance Putting on/Taking Off Upper Body Clothin - A Little Assistance Groomin - A Little Assistance Eatin - No Assistance CURRENT AM-PAC Activity Raw Score: 19 CURRENT AM-PAC Activity Functional Limitation/Modifier: 42.80% Currently Impaired in Daily Activity- CK PROJECTED AM-PAC Activity Raw Score: 24 PROJECTED AM-PAC Activity Functional Limitation/Modifier: 0.00% - Assessment & Plan: Patient continues to make progress towards established OT plan of care as evidenced by increased activity tolerance for participation in standing level ADLs as well as increased independence in functional transfers and mobility this date. Patient continues to be limited by deficits in balance, strength, endurance, activity tolerance impacting performance in ADLs and functional mobility. Patient will continue to benefit from skilled OT services to increase independence with self care tasks and reduce burden of care at discharge. Patient Instruction/Education this session: Patient Instruction: OT role, POC goals reviewed, body mechanics Plan for next session: progress endurance for participation in ambulation household/community distances for ADL/IADL participation, energy conservation education Acute OT Goals Plan of Care by Radha Delgadillo OT at 04/21/2022 11:29 AM Version 1 of 1 Problem: OT - Dressing Goal: Lower Body Dressing Description: Pt will complete LE dressing tasks with independence for improved ability to complete self-care activities. Outcome: Ongoing Problem: OT - ADLs Goal: Toileting Description: Pt will complete toileting task including clothing management with independence for improved ability to safely complete self-care activities. Outcome: Ongoing Goal: Bathing Description: Pt will perform full body bathing routine with modified independence while seated for improved ability to complete self-care activities. Outcome: Ongoing Problem: OT - Endurance Goal: Endurance Functional Mobilty Around Home Description: Pt will complete distance needed for common household mobility with modified independence. Outcome: Ongoing Problem: OT - Transfers Goal: Transfers Toilet/Bedside Commode Description: Pt will transfer to/from toilet/BSC with modified independence for improved ability tosafely complete ADLs. Outcome: Ongoing OT treatment consisted of ADL retraining, balance training, energy conservation/endurance training,strengthening, and transfer training to work and progress towards above goal(s). Treating Therapist: Radha Delgadillo OT Additional Details: Co-evaluation/co-treatment performed?: No simultaneous skilled care performed I used facemask, protective eye shield, and gloves in today's patient interaction. Patient location at end of session: chair Alarms on at end of session: none Needs in reach. Time In: 1329 Time Out: 1410 Total Visit Time: 41 minutes Total Treatment Time (skilled, billable minutes): 41 minutes Upon discontinuation of Acute Care Occupational Therapy Services or patient discharge from the hospital this note represents the current Occupational Therapy Discharge Summary. * Tito Hunt MD - 04/21/2022 12:53 PM EST CHF/ACS/HRT1 DAILY PROGRESS NOTE IDENTIFYING INFORMATION PATIENT: Finesse Prather ADMIT DATE: 04/20/2022 TIME OF EVALUATION: 04/21/2022 12:53 PM HOSPITAL STAY: LOS: 1 day SUBJECTIVE/INTERVAL HISTORY Finesse Prather's events from the last 12-24 hours were reviewed. Pt had no overnight events. Pt experienced no episodes of hypotension this am. No episodes of chest pain, hypertension, or sob. ASSESSMENT AND PLAN Finesse Prather is a 87 y.o. female with history of CAD s/p stents, Aortic Stenosis, Mitral Valve Stenosis, Heart Failure, PAD, Carotid Stenosis s/p TIA s/p endarteerectomy (L 2010, R 2017) , HLD, HTN and T2DM (non-insulin dependent) who presented to the OSH () with acute shortness of breath yesterday evening. Acute hypoxic respiratory failure Pt presented to [facility] on room air sating mid 90s. At this time pt is afebrile with no increased whitecount and symptoms have recovered. Unlikely infectious etiology. Will differ abx at this time with low threshold to start. Unlikely pe as pt is has no signs or symptoms of dvt. Pt is asymptomatic at this time, and no hemoptysis. Most likely flash pulmonary edema given recent presentation and blood pressure at time. - Will restart home coreg at this time - FU renal artery us. - FU metanephrins - Will fu about tavr scheduling Multivessel obstructive coronary artery disease, NSTEMI Coronary angiography at OSH on 03/21/22 demonstrate 90% stenosis in mLAD, 90% stenosis in D1, 90% stenosis in ostial circumflex, 30% RCA in stent stenosis and 80% stenosis of distal RCA. S/P angiogram on 04/01/22 with 2 drug eluting stents to LAD. No chest pain during episode with high sensitivity troponin of 33 at osh with unremarkable ekg. - Continue ASA and Plavix - Telemetry - repeat ekg and troponin this am with symptoms of hypotension. -Troponin of 547 this am from 760. Will stop trending but continue to monitor - not on statin as hx of muscle spasms Severe Aortic Stenosis Transferred here for continued TAVR workup. - TTE showed severe aortic stenosis: mean gradient 33 mmHg, valve area cont 0.69 cm2, valve vmax 3.36 m/s. - Management as above. Essential Hypertension Home regimen: - Carvedilol Hyperlipidemia Reportedly had muscle spasm and pain with statin. - om ezetimibe at home, will hold for now - On omega-3 fa at home, but low dose not on inpatient formulary Peripheral Artery Disease - Continue ASA Diabetes Mellitus, Type 2 Non-insulin dependent Well controlled, Hgb A1c 6.8. - Holding home metformin while admitted - SSI/CC Depression - Continue sertraline FEN/GI: DIET heart healthy Ppx: levonox Dispo: ACS Code Status: DNRCC-ARREST Plan discussed with cardiology team Signed, Tito Hunt MD PGY-1, Emergency Medicine MEDICATIONS SCHEDULED: aspirin chewable tablet 81 mg, 81 mg, Daily B Complex capsule 1 capsule, 1 capsule, Daily carveDILOL (COREG) tablet 25 mg, 25 mg, Q12H cholecalciferol (VITAMIN D3) tablet 5,000 Units, 5,000 Units, Daily Clopidogrel (PLAVIX) tablet 75 mg, 75 mg, Daily Enoxaparin Sodium (LOVENOX) injection 40 mg, 40 mg, Daily Ezetimibe (ZETIA) 10 mg, 10 mg, Daily Insulin lispro (HUMALOG) injection, , 4x daily w/meals, HS Sertraline (ZOLOFT) tablet 25 mg, 25 mg, Daily FLUIDS/DRIPS: PRNs: Insulin lispro, , PRN And Dextrose, 7.5-25 g, As directed PRN And glucose, 1-2 Tube, As directed PRN Docusate, 100 mg, BID PRN magnesium oxide, 800 mg, As directed PRN Magnesium Sulfate IVPB, 4 g, As directed PRN Potassium Bicarb-Citric Acid, 20-40 mEq, As directed PRN Potassium Bicarb-Citric Acid, 40-60 mEq, As directed PRN Sodium chloride 0.9%, 250 mL, PRN ALLERGIES: She is allergic to statins. OBJECTIVE FINDINGS Vital Signs (24hrs): Temp: [97.8 F (36.6 C)-99.2 F (37.3 C)] 98.6 F (37 C) Pulse (Heart Rate): [68-94] 74 Resp Rate: [11-38] 16 BP: (107-193)/(52-81) 140/65 O2 Sat (%): [91 %-98 %] 98 % Weight: [59.6 kg (131 lb 6.3 oz)] 59.6 kg (131 lb 6.3 oz) Hemodynamic/Invasive Device Data (24 hrs): Pulmonary/Cardiac Hemodynamics Pulse (Heart Rate): 74 Neuro ICP/CPP Monitoring MAP (mmHg): 93 mmHg Neuro ICP/CPP Monitoring 2 MAP (mmHg): 93 mmHg Ventilation/Oxygen Therapy (24hrs): Oxygen Therapy O2 Sat (%): 98 % O2 Device: room air Lines/Drains/Airways/Wounds: Patient Lines/Drains/Airways Status Active Lines, Drains, Airways, & Wound Overview Name Placement date Placement time Site Days Peripheral IV Line - Single Lumen 04/19/22 median cubital vein (antecubital fossa), left 20 gauge 04/19/22 -- -- 2 Peripheral IV Line - Single Lumen 04/20/222336 metacarpal vein (top of hand), left 20 gauge 04/20/222336 -- less than 1 Fluid Management (24hrs): -Intake/Output last 3 shifts: I/O last 3 completed shifts: In: 608 [P.O.:608] Out: 800 [Urine:800] Physical Examination: Gen: Well appearing, NAD HEENT: sclera anicteric, atraumatic CV: RRR, systolic murmer appreciated, no clearly apparent JVD Pulm: Normal effort, CTAB Abd: BS+. Soft, non-tender, non-distended Ext: Warm and well perfused. No edema Skin: No clearly visible rashes or lesions Neuro: A & O x3; responding appropriately to questions DIAGNOSTIC RESULTS/PROCEDURES Labs-ABGs Labs-CBC WBC/Hgb/Hct/Plts: 6.15/10.6/31.6/203 (04/21 415) Labs-Chem 7([facility]) Bun/Creat/Cl/CO2/Glucose: 22/0.63/107/25/177 (04/21 415-04/21 1151) Na/K+/Phos/Mg/Ca: 140/4.0/--/--/-- (04/21 415) Labs-Coags Additional Labs Lab Results Component Value Date BNP 426 (H) 04/20/2022 BNP 553 (H) 04/17/2022 No results found for: TROP Lab Results Component Value Date CHOLESTEROL 242 (H) 04/17/2022 TRIG 112 04/17/2022 HDL 48 04/17/2022 Imaging/Radiological Studies: VASC DUPLEX RENAL BILATERAL (Results Pending) Consults/Procedures: IP CONSULT TO PHYSICAL THERAPY IP CONSULT TO OCCUPATIONAL THERAPY Plan discussed with cardiology team Signed, Tito Hunt MD PGY-1, Emergency Medicine Associated attestation - Kailey Paniagua MD - 04/23/2022 1:33 PM EST I have personally seen and examined the patient independently and with the HR3 Team. I agree with the assessment and plan above with appropriate editing of the entire note above. Patient remains clinically stable with persistent significant systolic blood pressure fluctuation. She has not demonstrated any recurrent pulmonary edema. She is tentatively scheduled for TAVR on Thursday. Given her hemodynamic instability with the labile blood pressure I do not feel comfortable discharging prior to aortic valve replacement. Sara Paniagua MD * Rico Hicks, PT - 04/21/2022 12:28 PM EST Acute Physical Therapy Treatment Prior to Admission [facility] score(s): PRIOR LEVEL AM-PAC Mobility Raw Score: 24 PRIOR LEVEL AM-PAC Activity Raw Score: 24 Current AM-PAC score(s): CURRENT AM-PAC Mobility Raw Score: 17 Based on the above AM-PAC score(s) and PT clinical judgment, patient is a good candidate for discharge to (TBD) Mobility equipment available at home: 2 wheeled walker ADL equipment available at home: shower chair Equipment needed for discharge: to be determined Current therapy frequency recommendation in acute: Therapy Frequency: 5 times a week Precautions and Weightbearing Status: Existing Precautions/Restrictions: cardiac, fall Telemetry Patient Safety Communication Prior to Visit: Nursing Subjective: Pt agreeable to session Pain: General Pain Documentation (Adult, OB, Peds) Presence of Pain: denies pain/discomfort Objective/Observation: Vitals/Vitals Responses to Treatment: Blood pressure: 140/65, RN aware. Respiratory Status O2 Device: room air Cognition Overall Cognitive Status: Within Functional Limits Arousal/Alertness: Appropriate responses to stimuli Orientation Level: Oriented X4 Following Commands: Follows all commands and directions without difficulty Extremity Assessments: See PT Evaluation flowsheet for Extremity Measurement updates. Skin and Edema: Balance: Sitting Balance Static Sitting-Level of Assistance: Standby Dynamic Sitting-Level of Assistance: Standby Skilled Rationale: Verbal cues, Energy conservation, Breathing strategies Standing Balance Static Standing-Level of Assistance: Contact guard Dynamic Standing-Level of Assistance: Minimum assistance Skilled Rationale: Positioning, Sequencing, Hand placement, Verbal cues, Tactile cues, Energy conservation, Breathing strategies Mobility Assessment/Intervention: Supine to Sit Mobility [place] Level: Supine->Sit: stand-by assist Skilled Rationale: Positioning, Sequencing, Hand placement, Tactile cues Transfer Assessment/Intervention: Sit to Stand Transfer [place] Level: Sit->Stand: minimum assist (75% patient effort) Skilled Rationale: Positioning, Sequencing, Hand placement, Verbal cues, Tactile cues, Energy conservation, Breathing strategies Skilled Intervention/Details: Sit->Stand: x5 Stand to Sit Transfer [place] Level: Stand->Sit: contact guard assist Bed-Chair Transfer [place] Level: Bed<->Chair: minimum assist (75% patient effort) Skilled Rationale: Positioning, Sequencing, Hand placement, Verbal cues, Tactile cues Gait/Functional Mobility Assessment/Intervention: Gait Assessment [place] Level: Gait: contact guard assist Ambulation Distance (Feet): 85 (5-30-50) Gait Deviations Identified: decreased taj, decreased gait speed, decreased step length, decreased stride length, decreased weight shifting Gait Skilled Rationale: verbal, tactile, upright posture, improve foot placement Skilled Intervention/Details - Gait: Focus was psoture, pacing, self monitoring, and taking her time once standing before progressing into ambulation. Rest breaks taken after each bout with full recovery and education on prior bout and the next for improved mechanics. Gait improved with session from min assist x1 to contact guard assist x1 by the last bout with improved stepping and taj. Outcome Score(s): CURRENT [facility] Basic Mobility Inpatient Short Form Turning over in bed: 4 - No Assistance Sitting/standing from chair: 3 - A Little Assistance Moving from lying on back to sittin - A Little Assistance Moving to and from bed to chair: 3 - A Little Assistance Walk in hospital room: 3 - A Little Assistance Climbing 3-5 steps with a railin - Total Assistance CURRENT [facility] Mobility Raw Score: 17 CURRENT [facility] Mobility Functional Limitation/Modifier: 50.57% Currently Impaired in Basic Mobility- CK Assessment & Plan: Pt making good progress toward all goals with focus for next session to be further gait. Plan for next session: Gait Acute PT Goals Plan of Care by Rico Hicks PT at 04/21/2022 3:20 PM Version 1 of 1 Problem: PT - Mobility Goal: Ambulation Description: Pt will ambulate 150 feet with appropriate assistive device as needed with supervisionto improve ability to navigate home environment. Outcome: Progressing Toward Goal Problem: PT - Transfers Goal: Sit <-> Stand Description: Pt will perform sit to/from stand transfers with supervision with appropriate assistive device as needed in order to improve functional mobility and safety. Outcome: Progressing Toward Goal Goal: Stand-Pivot Description: Pt will perform stand/pivot transfer to/from bed/chair/commode with supervision with appropriate assistive device as needed in order to improve functional mobility and safety. Outcome: Progressing Toward Goal Goal: Strength/ROM Description: Pt will perform 2 sets of 10 repetitions of lower bilateral extremity exercises with independence in order to improve strength, maintain ROM, necessary for functional mobility. Outcome: Progressing Toward Goal PT treatment consisted of Therapeutic Activity and Gait/Stair Training to work and progress towardsabove goal(s). Treating Therapist: Rico Hicks PT Additional Details: Co-evaluation/co-treatment performed?: No simultaneous skilled care performed I used gloves and facemask in today's patient interaction. Patient location at end of session: chair Alarms on at end of session: none per RN Needs in reach. Time In: 1148 Time Out: 1228 Total Visit Time: 40 minutes Total Treatment Time (skilled, billable minutes): 40 minutes Upon discontinuation of Acute Care Physical Therapy Services or patient discharge from the hospitalthis note represents the current Physical Therapy Discharge Summary. Rico Hicks PT, DPT Pager #: [phone] License #: [id number] * Lauren Torres RN - 04/21/2022 10:40 AM EST CM spoke with patient and her daughter, Amber, at bedside; introduced myself and explained the role and function of the CM within the multidisciplinary team. Patient is s/p recent admission 04/17-04/19 for management of acute hypoxic respiratory failure and workup for future TAVR. Patient was readmitted on 04/20 with shortness of breath and HTN. Initial CM assessment completed 04/17 by Jeni Montano RN. Patient and her daughter confirm details of assessment are unchanged. CM will continue to follow patient with the multidisciplinary team toassess for ongoing needs and planning. QUINTON Hannon RN Clinical Apparatus Engineering Technologist * Dontrell Garcia PT - 04/20/2022 9:51 AM EST Acute Physical Therapy Evaluation Prior to Admission AMPA score(s): PRIOR LEVEL AM-PAC Mobility Raw Score: 24 Current AM-PAC score(s): CURRENT AM-PAC Mobility Raw Score: 12 Based on the above AM-PAC score(s) and PT clinical judgment, patient is a good candidate for discharge to (TBD-Pt functional mobility limited by decreased BP, RN present) Mobility equipment available at home: (P) 2 wheeled walker ADL equipment available at home: (P) shower chair Equipment needed for discharge: to be determined Current therapy frequency recommendation in acute: Therapy Frequency: 5 times a week Precautions and Weightbearing Status: Existing Precautions/Restrictions: cardiac, fall Telemetry Patient Safety Communication Prior to Visit: Nursing Subjective: Agreeable to PT session. Pain: General Pain Documentation (Adult, OB, Peds) Presence of Pain: denies pain/discomfort Home Setting Residence: (P) House Lives With: (P) spouse First floor setup: (P) bedroom, walk-in shower Number of stairs to enter home: (P) 0 Number of stairs in home: (P) 0 Mobility Equipment Available: (P) 2 wheeled walker ADL Equipment Available: (P) shower chair Previous Level of Function Prior level ADL Overview: (P) Independent with all ADLs Bed Mobility/Transfers: (P) independent Ambulation Skills: (P) independent Assistive Device: (P) none used Level of Ambulation: (P) community Prior Level of Function Details: (P) Pt denies recent falls. .Pt recently used walker for a few days; however, had never used AD beforehand. Objective/Observation: Vitals/Vitals Responses to Treatment: Pt seated on commode upon arrival. Pt ambulated 10 feet and sat down on EOB, BP=84/46 MAP=63 c/o dizziness. Pt returned to supine BP=76/37 MAP=52, pt c/o continued dizziness, RN present. BP=83/42 MAP=60, pt supine with RN present upon completion PT evaluation. Respiratory Status O2 Device: room air Cognition Overall Cognitive Status: Within Functional Limits Arousal/Alertness: Lethargic Orientation Level: Oriented X4 Following Commands: Follows one step commands with increased time Extremity Assessments: RLE Assessment RLE Assessment: Within Functional Limits LLE Assessment LLE Assessment: Within Functional Limits Sensation Sensation Comments: Denies numbness/tingling Mobility Assessment: Balance: Sitting Balance Static Sitting-Level of Assistance: Standby Dynamic Sitting-Level of Assistance: Contact guard Transfer Assessment: Sit to Stand Transfer [place] Level: Sit->Stand: minimum assist (75% patient effort) Physical Assist: Sit->Stand: 2 person assist Skilled Rationale: Hand placement, Tactile cues, Facilitate anterior shift Stand to Sit Transfer [place] Level: Stand->Sit: minimum assist (75% patient effort) Physical Assist: Stand->Sit: 2 person assist Skilled Rationale: Hand placement, Tactile cues, Controlled descent for sitting Gait/Functional Mobility: Gait Assessment [place] Level: Gait: minimum assist (75% patient effort) Physical Assist: Gait: 2 person assist Assistive Device: Gait: hand held assist Ambulation Distance (Feet): 10 Gait Deviations Identified: decreased taj, decreased gait speed, decreased step length, decreased stride length Stairs: Outcome Score(s): CURRENT [facility] Basic Mobility Inpatient Short Form Turning over in bed: 3 - A Little Assistance Sitting/standing from chair: 2 - A Lot of Assistance Moving from lying on back to sittin - A Lot of Assistance Moving to and from bed to chair: 2 - A Lot of Assistance Walk in hospital room: 2 - A Lot of Assistance Climbing 3-5 steps with a railin - Total Assistance CURRENT [facility] Mobility Raw Score: 12 CURRENT [facility] Mobility Functional Limitation/Modifier: 68.66% Currently Impaired in Basic Mobility- CL Interventions: Assessment & Plan: Patient was admitted from outside hospital with acute SOB and severe aortic stenosis and is being evaluated for TAVR. and seen for therapy evaluation related to decreased functional mobility capabilities from reported baseline levels.. Exam findings include impairments in: Strength, Balance, Transfers, Gait/Locomotion, Aerobic capacity/endurance. These impairments contribute to functional limitations including Ambulation/locomotionpain, Decreased ambulation distance/endurance, Difficulty stair climbing/descent, Increased fall risk, Difficulty with bed mobility, Difficulty with transfers, Decreased functional mobility Current clinical presentation is Evolving - changing/inconsistent clinical characteristics (Moderate). Patient history factors impacting Plan Of Care include . Patient will benefit from skilled physical therapy to address these impairments, functional limitations, and participation restrictions andhas good rehab potential to achieve therapy goals. Planned Therapy Interventions: balance training, bed mobility training, endurance, functional activity tolerance, gait training, strengthening, transfer training Patient Instruction/Education this session: Role of PT and PT POC. Plan for next session: Promote transfers and ambulation per pt tolerance Acute PT Goals Plan of Care by Dontrell Garcia PT at 04/20/2022 9:51 AM Version 1 of 1 Problem: PT - Mobility Goal: Ambulation Description: Pt will ambulate 150 feet with appropriate assistive device as needed with supervisionto improve ability to navigate home environment. Outcome: Ongoing Problem: PT - Transfers Goal: Supine <-> Sit Description: Pt will perform bed mobility with flat bed & no rail with independence in order toimprove functional mobility and safety. Outcome: Ongoing Goal: Sit <-> Stand Description: Pt will perform sit to/from stand transfers with supervision with appropriate assistive device as needed in order to improve functional mobility and safety. Outcome: Ongoing PT treatment consisted of PT evaluation to work and progress towards above goal(s). Evaluating Therapist: Dontrell Garcia PT Additional Details: Co-evaluation/co-treatment performed?: Yes, simultaneous billable skilled care This co-evaluation session performed between PT and OT was beneficial, necessary and provided distinct services in establishing this person's individual plan of care. Medical complexity with functional deficits necessitated two skilled therapy disciplines working concurrently to determine each discipline's goals. This co-treatment was medically necessary due to patient's: Postural control I used facemask, protective eye shield, and gloves in today's patient interaction. Evaluation Complexity Components History: Moderate (1-2 personal factors and/or comorbidities) Body Systems Review: Moderate (Addressing a total of 3 or more elements) Clinical Presentation: Evolving - changing/inconsistent clinical characteristics (Moderate) Clinical Decision Making: Moderate Time In: 939 Time Out: 950 Total Visit Time: 11 minutes Total Treatment Time (skilled, billable minutes): 11 minutes Patient location at end of session: bed with head of bed elevated and Alarms on at end of session: RN present Needs in reach. Upon discontinuation of Acute Care Physical Therapy Services or patient discharge from the hospitalthis note represents the current Physical Therapy Discharge Summary. * Radha Delgadillo OT - 04/20/2022 9:40 AM EST Acute Occupational Therapy Evaluation Prior to Admission AM-PAC Score: PRIOR LEVEL AM-PAC Activity Raw Score: 24 Current AM-PAC score(s): CURRENT AM-PAC Activity Raw Score: 18 Based on the above AM-PAC score(s) and OT clinical judgment, discharge destination recommendation is: (TBD; Pt participation limited by BP drop this date. OT will continue to assess and update as appropriate.) Mobility equipment available at home: 2 wheeled walker ADL equipment available at home: shower chair Equipment recommendations for discharge: to be determined Current therapy frequency recommendation(s) in acute: 5 times a week Precautions and Weightbearing Status: OT Existing Precautions/Restrictions: cardiac, fall Telemetry Patient Safety Communication Prior to Visit: Nursing Subjective: Patient received seated on toilet. Patient notes mild dizziness while seated on toilet, thus guidedback to EOB with therapist assistance. Once EOB, Patient notes continued dizziness, thus returned to supine position with BP readings as noted below. RN notified and aware. Pain: General Pain Documentation (Adult, OB, Peds) Presence of Pain: denies pain/discomfort Home Setting Residence: House Lives With: spouse First floor setup: bedroom, walk-in shower Number of stairs to enter home: 0 Number of stairs in home: 0 Mobility Equipment Available: 2 wheeled walker ADL Equipment Available: shower chair Previous Level of Function Prior level ADL Overview: Independent with all ADLs Bed Mobility/Transfers: independent Ambulation Skills: independent Assistive Device: none used Level of Ambulation: community Prior Level of Function Details: Pt denies recent falls. Pt recently used walker for a few days; however, had never used AD beforehand. IADL History IADLs: independent Home Management Skills: independent Medication Management: independent Objective/Observation: Vitals/Vitals Responses to Treatment: Vitals HR (bpm) BP (mmHg) SpO2 (%) Seated EOB, immediately following ambulation toilet>EOB: 66 84/46 MAP: 63 91 Seated EOB 76/37 MAP: 52 Supine 83/40 MAP: 60 RN present in room and aware of all readings. RN addressing at end of session. Pt left supine in bed with call light/needs in reach. Respiratory Status O2 Device: room air Vision Screen Currently wearing corrective lenses: No Speech Speech: no gross deficits noted Hearing Hearing: no gross deficits noted Cognition Overall Cognitive Status: Within Functional Limits Arousal/Alertness: Lethargic Orientation Level: Oriented X4 Following Commands: Follows one step commands with increased time Attention Span: Attends with cues to redirect ADLs: ADL Anticipated Performance (ADLs not directly observed this session): Toileting, LE Dressing Eating Assistance: Independent Grooming Assistance: Minimal Grooming Location: standing at sink Bathing Assistance: Moderate Bathing Location: seated on shower chair UE Dressing Assistance: Set up supervision UE Dressing Location: seated in chair LE Dressing Assistance: Minimal LE Dressing Location: edge of bed, standing Toilet Assistance: Minimal Toileting Location: toilet Extremity Assessments: RUE Assessment RUE Assessment: Within Functional Limits LUE Assessment LUE Assessment: Within Functional Limits Balance: Sitting Balance Static Sitting-Level of Assistance: Standby Dynamic Sitting-Level of Assistance: Contact guard Skilled Rationale: Upright gaze/neck extension Standing Balance Static Standing-Level of Assistance: Minimum assistance Dynamic Standing-Level of Assistance: Minimum assistance, 2-person assist Standing-Balance Support: Bilateral hand held assist Skilled Rationale: Positioning, Hand placement, Verbal cues, Full extension to upright positioning/posture, Upright gaze/neck extension Neuro: Sensation Sensation Comments: Pt denies numbness/tingling Skin and Edema: Mobility Assessment: Sit to Supine Mobility [place] Level: Sit->Supine: minimum assist (75% patient effort) Physical Assist: Sit->Supine: 2 person assist Bed Features/Set-up: Sit->Supine: Use of bed rail, Head of bed elevated Skilled Rationale: Positioning, Verbal cues, Sequencing Transfer Assessment: Sit to Stand Transfer [place] Level: Sit->Stand: minimum assist (75% patient effort) Physical Assist: Sit->Stand: 2 person assist Skilled Rationale: Positioning, Verbal cues, Full extension to upright positioning/posture, Uprightgaze/neck extension Stand to Sit Transfer [place] Level: Stand->Sit: minimum assist (75% patient effort) Physical Assist: Stand->Sit: 2 person assist Skilled Rationale: Positioning, Verbal cues, Controlled descent for sitting, Cues for increased safety Toilet Transfer [place] Level: Toilet: minimum assist (75% patient effort) Physical Assist: Toilet: 2 person assist Assistive Device: Toilet: grab bars Skilled Rationale: Positioning, Hand placement, Verbal cues, Full extension to upright positioning/posture, Cues for increased safety Functional Mobility: Functional Mobility [place] Level: Functional Mobility/Gait: minimum assist (75% patient effort) Physical Assist: Functional Mobility/Gait: 2 person assist Assistive Device: Functional Mobility/Gait: hand held assist Functional Mobility Distance: Distance needed to access restroom Functional Mobility Deficits: Activity tolerance, Balance, Generalized weakness Functional Mobility Skilled Rationale: Cues for increased safety, Verbal cues, Upright gaze/neck extension Skilled Intervention/Details - Functional Mobility/Gait: Min Ax2 secondary to gait instability and postural sway Outcome Score(s): CURRENT AM-PAC Daily Activity Inpatient Short Form Putting on/Taking Off Lower Body Clothin - A Little Assistance Bathin - A Lot of Assistance Toiletin - A Little Assistance Putting on/Taking Off Upper Body Clothin - A Little Assistance Groomin - A Little Assistance Eatin - No Assistance CURRENT AM-PAC Activity Raw Score: 18 CURRENT AM-PAC Activity Functional Limitation/Modifier: 46.65% Currently Impaired in Daily Activity- CK PROJECTED AM-PAC Activity Raw Score: 24 PROJECTED AM-PAC Activity Functional Limitation/Modifier: 0.00% - Assessment & Plan: Patient was admitted for acute SOB, severe aortic stenosis and is being evaluated for TAVR. and seen for therapy evaluation related to deconditioning and generalized weakness, impacting performance in ADLs and functional mobilty. Exam findings include impairments in: balance, endurance, strength, transfers. These impairments contribute to occupational performance limitations including bathing, dressing, toileting, functional mobility, ADL transfers. The following factors impact the plan of care: history of CAD s/p stents, severe aortic stenosis, HFpEF, carotid stenosis s/p endarteerectomy (L 2010, R 2017), HLD, HTN and T2DM Patient will benefit from skilled occupational therapy to address these impairments, occupational performance limitations, and participation restrictions. Patient's rehab potential is: good, to achieve stated therapy goals. Planned Therapy Interventions (OT Eval): ADL retraining, balance training, bed mobility training, functional activity tolerance, strengthening, transfer training Patient Instruction/Education this session: Patient Instruction: OT role, POC goals Plan for next session: standing grooming, LB dressing, progress mobility as tolerated Acute OT Goals Plan of Care by Radha Delgadillo OT at 04/20/2022 9:51 AM Version 1 of 1 Problem: OT - Dressing Goal: Lower Body Dressing Description: Pt will complete LE dressing tasks with independence for improved ability to complete self-care activities. Outcome: Ongoing Problem: OT - ADLs Goal: Toileting Description: Pt will complete toileting task including clothing management with independence for improved ability to safely complete self-care activities. Outcome: Ongoing Goal: Bathing Description: Pt will perform full body bathing routine with modified independence while seated for improved ability to complete self-care activities. Outcome: Ongoing Problem: OT - Endurance Goal: Endurance Functional Mobilty Around Home Description: Pt will complete distance needed for common household mobility with modified independence. Outcome: Ongoing Problem: OT - Transfers Goal: Transfers Toilet/Bedside Commode Description: Pt will transfer to/from toilet/BSC with modified independence for improved ability tosafely complete ADLs. Outcome: Ongoing Evaluating Therapist: Radha Delgadillo OT Additional Details: Co-evaluation/co-treatment performed?: Yes, simultaneous billable skilled care This co-evaluation session performed between OT and PT was beneficial, necessary and provided distinct services in establishing this person's individual plan of care. Medical complexity with functional deficits necessitated two skilled therapy disciplines working concurrently to determine each discipline's goals. This co-treatment was medically necessary due to patient's: Postural control and activity tolerance I was assisted by PT for today's session. and I used facemask, protective eye shield, and gloves intoday's patient interaction. OT Evaluation Complexity Occupational Profile and Client History: Moderate - expanded history Assessment of Occupational Performance: Moderate (3-5 performance deficits) Clinical Decision/Performance Deficits: Moderate (detailed assessments w/several treatment options) Time In: 939 Time Out: 950 Total Visit Time: 11 minutes Total Treatment Time (skilled, billable minutes): 11 minutes Patient location at end of session: bed with head of bed elevated Alarms on at end of session: none, RN aware, and and present in room Needs in reach. Upon discontinuation of Acute Care Occupational Therapy Services or patient discharge from the hospital this note represents the current Occupational Therapy Discharge Summary. [facility]* Discharge Instructions* Radha Chinchilla MD - 04/27/2022 10:32 AM EST - Please call your local steward/stewardess third class to make an appointment. Ideally this appointment will be sometime in the next 1-2 weeks. If you are able to get in with them in that time frame, you can cancel your appointment with Dr. Munoz. If your local steward/stewardess third class is not able to see you in that short time frame, keep the appointment with Dr. Munoz. - Please keep the appointment on May 29, they will check on your valve at this appointment - Please check your blood pressure at least one time daily and write it down, please bring those numbers to all doctors appointments - Please take the carvedilol 25mg one pill in the morning and one pill at bedtime for your blood pressure - I have provided you with an as-needed medication for high blood pressure called hydralazine, onlytake this if the top number is over 180. Do not take more than one pill in an eight-hour period - We increased your sertraline to 50mg, take one pill per day - On nights that you are having trouble falling asleep, you can take the melatonin * Attachments The following attachments cannot be sent through Care Everywhere. * Blood Pressure Test: Home (Mongolian) * TAVR (Transcatheter Aortic Valve Replacement) - Care After ([facility]) ([place]ongolian) [facility]* Plan of Care - Tasia Mancia RN - 04/26/2022 1:34 PM EST 2 Trevor Daily Rounding Plan of Care The following multidisciplinary plan of care was discussed with the attending service regarding Finesse Prather. Today's Plan of Care: Add 20 mg PO lasix, increase Zoloft Cardiac Monitoring Current Cardiac Monitoring order: yes Renewal order indicated: no 4 hour telemetry recall: SR BBB Oxygen O2 Sat (%): 94 % (04/26 1148) O2 Device: room air (04/26 1148) LDAs The type, length of duration and necessity of all lines and drains listed below was reviewed, in order to prevent any possible sources of infection and encourage timely removal. Patient Lines/Drains/Airways Status Active Lines, Drains, Airways, & Wound Overview Name Placement date Placement time Site Days Peripheral IV Line - Single Lumen 04/20/22 2337 metacarpal vein (top of hand), left 20 gauge 04/20/22 2337 -- 5 Peripheral IV Line - Single Lumen 04/25/22 0847 forearm, posterior, left 20 gauge;1 3/4 in length 04/25/22 0847 -- 1 Wound Sheath Site 04/25/22 1102 Left Groin 04/25/22 1102 Groin 1 Wound Sheath Site 04/25/22 1102 Right Groin 04/25/22 1102 Groin 1 Mobility Activity plan: normal PT/OT: yes Need for DVT prophylaxis: yes Consults/Discharge Planning Social Work: no Case Management needs: yes Cardiac rehab: no Estimated Discharge Date: 04/27/2022 Tasia Mancia RN Problem: Patient Care Overview Goal: Plan of Care Review Outcome: Met This Shift Goal: Individualization & Mutuality Outcome: Met This Shift Goal: Discharge Needs Assessment Outcome: Ongoing Goal: Interdisciplinary Rounds/Family Conf Outcome: Ongoing Problem: Fall/Trauma/Injury Risk (Adult) Goal: Fall/Trauma/Injury Risk: Absence of Trauma/Injury/Falls Description: Patient will demonstrate the desired outcomes. Outcome: Ongoing Goal: Knowledge of risk factors/behavior modification Description: Knowledge of risk factors/behavior modification for fall/injury prevention Outcome: Ongoing Problem: Transcatheter Aortic Valve Replacement (TAVR) (Adult) Goal: Signs and Symptoms of Listed Potential Problems Will be Absent or Manageable Description: Signs and symptoms of listed potential problems will be absent or manageable by discharge/transition of care. Outcome: Ongoing Goal: Stable Weight Description: Patient will demonstrate the desired outcomes by discharge/transition of care. Outcome: Ongoing Problem: Nutrition, Imbalanced: Inadequate Oral Intake (Adult) Goal: Identify Related Risk Factors and Signs and Symptoms Description: Related risk factors and signs and symptoms are identified upon initiation of Human Response Clinical Practice Guideline (CPG) Outcome: Ongoing Problem: Diabetes, Type 2 (Adult) Goal: Signs and Symptoms of Listed Potential Problems Will be Absent, Minimized or Managed (Diabetes, Type 2) Description: Signs and symptoms of listed potential problems will be absent, minimized or managed by discharge/transition of care (reference Diabetes, Type 2 (Adult) CPG). Outcome: Ongoing [facility]* Plan of Care - Nathalie Damon RN - 04/25/2022 4:30 PM EST Gillian Murray Daily Rounding Plan of Care The following multidisciplinary plan of care was discussed with the attending service regarding Finesse Prather. Today's Plan of Care: TAVR, BP monitoring and management Cardiac Monitoring Current Cardiac Monitoring order: yes Renewal order indicated no 4 hour telemetry recall: NSR Oxygen O2 Sat (%): 93 % (04/25 1918) O2 Device: room air (04/25 1918) LDAs The type, length of duration and necessity of all lines and drains listed below was reviewed, in order to prevent any possible sources of infection and encourage timely removal. [place] indicated: No Central line indicated: No Patient Lines/Drains/Airways Status Active Lines, Drains, Airways, & Wound Overview Name Placement date Placement time Site Days Peripheral IV Line - Single Lumen 04/20/22 233 metacarpal vein (top of hand), left 20 gauge 04/20/22 2337 -- 4 Peripheral IV Line - Single Lumen 04/25/22 0847 forearm, posterior, left 20 gauge;1 3/4 in length 04/25/22 0847 -- less than 1 Wound Sheath Site 04/25/22 1102 Anterior;Left Greater Trochanter 04/25/22 1102 Greater Trochanter less than 1 Wound Sheath Site 04/25/22 1102 Anterior;Right Greater Trochanter 04/25/22 1102 Greater Trochanter less than 1 Mobility Activity plan: with minor assitance PT/OT: yes Need for DVT prophylaxis: yes Lovenox Consults/Discharge Planning Social Work: no Case Management needs: yes Cardiac rehab: yes Estimated Discharge Date 04/26 Nathalie Damon RN [facility] Note* Op Note - Nicho Lucas MD - 04/25/2022 11:06 AM EST Structural Heart Operative Report DATE PERFORMED: 04/25/2022 PRE and POST OPERATIVE DIAGNOSES: Severe symptomatic calcific aortic stenosis. High risk surgical candidate. POSTOPERATIVE DIAGNOSES: Severe symptomatic calcific aortic stenosis. High risk surgical candidate. PROCEDURE: Transcatheter aortic valve replacement with a 23-mm Lerner Sapiens S3 valve via a right transfemoral approach. SURGEONS: .Nicho Lucas MD; Lino Portillo MD, PhD INDICATIONS: This is a 87 y.o. year old female with severe, symptomatic aortic stenosis. Following discussion atmultidisciplinary valve conference, the decision was made to proceed with TAVR. FINDINGS: Post procedure pressures: Mean gradient 0 mmHg. Access/Sheath: 14 percutaneous Lerner e sheath expandable introducer sheath Pacing during deployment: 180 bpm Depth of implantation: 15 % in ventricle Degree of aortic regurgitation at the end of the case: By angiogram: Trace. Contrast used: 48 ml. Anesthesia: Local/MAC PROCEDURE: The patient was taken to the operating room. The patient was prepped and draped. Access: Using Seldinger technique we placed a left common femoral artery 6-Mosotho sheath percutaneously. A 6 Mosotho pigtail was advanced over a guidewire into the ascending aorta and parked in the right sinus of Valsalva. A 9 iranian left venous sheath was placed in the femoral vein. A balloon catheter tip pacing wire was advanced into the RV and secured. Good capture was achieved. The right common femoral artery was then accessed percutaneously using Seldinger technique. The patient was heparinized. The artery was preclosed with the placement of two Perclose devices. A guidewire was inserted and a 8-Mosotho pigtail catheter was advanced into the descending thoracic aorta. We exchange the wire to an 0.035-inch Amplatz Super Stiff guidewire. The pigtail was removed and the artery was dilated. Then an Lerner esheath was inserted. The cannula was deaired. Then we shot a rootangiogram and we selected the deployment projection that allowed for all 3 cusps of the aortic valve to be aligned. Crossing of the Aortic Valve Then we crossed the aortic valve using an AL1 catheter with a soft tip straight guidewire. The catheter was advanced across the aortic valve into the left ventricle. The AL1 catheter was advanced allthe way in to the apex of the left ventricle and the wire was exchanged to a Confida wire. The AL1 was removed. Valve deployment: We then inserted an Lerner delivery system loaded with a 23 mm Lerner S3 valve along the femoral sheath and advanced through the extra stiff guidewire through the abdominal and thoracic aorta. We then loaded the valve into the balloon area using the pusher . Then we flex the catheter and advance it through the arch and ascending aorta and across the aortic valve annulus. We were 50% in the ventricle at that time. We started rapid ventricular pacing.The pigtail was removed from the right sinus. This abolished ejection and dropped the blood pressure bellow 40mmHg. We then inflated the balloonand deployed the valve. Pacing was stopped. The patient tolerated this well. The delivery system was removed from the patient. The depth of implantation is described also in the finding section. The angiographic aortic insufficiency was as described in the finding session. There was good filling of the coronary arteries. We placed a pigtail in the LV and removed the stiff guidewire. Pullback pressures were measured in the LV and the aorta. We were very satisfied with this result and we decided to terminate the case. Sheath removal We then proceeded to remove completely the guidewire as well as the sheath, and we repaired the femoral artery with the previously placed Perclose devices. There was excellent pulsation distally to the repair. The site was hemostatic. Next, we removed the pigtail from the contralateral femoral artery sheath and we closed the artery with a Perclose device. We then removed the temporary pacing wire and the venous sheath. Protamine was administered. Hemostasis was performed in the groin. The patient was transferred stable to the PACU. Nicho Lucas MD Attending Surgeon Division of Cardiac Surgery [facility] Work Phone: [phone] Note* Brief Op Note - Nicho Lucas MD - 04/25/2022 11:06 AM EST Finesse Prather ([id number]) PRE OPERATIVE DIAGNOSIS Aortic valve stenosis, etiology of cardiac valve disease unspecified [I35.0] POST OPERATIVE DIAGNOSIS Post-Op Diagnosis Codes: * Aortic valve stenosis, etiology of cardiac valve disease unspecified [I35.0] PROCEDURE PERFORMED Procedure(s) (LRB): TAVR (N/A) PRIMARY CLOSURE N/A INTRAOPERATIVE FINDINGS No significant abnormalities SURGEON Surgeon(s) and Role: * Lino Portillo MD, PhD - Primary * Tito Bartholomew MD - Fellow * Nicho Lucas MD ANESTHESIOLOGIST No anesthesia staff entered. SURGICAL STAFF Cane Flume Chute Operator: CHIQUI Hernandez Portable Router Operator: Alok Molina Sedation Nurse: Miguel Ho RN; Barbie Garg, FRANCISCO Documenter: Gely Marvin RN COMPLICATIONS None ESTIMATED BLOOD LOSS 50 ml SPECIMENS No specimen sent * No specimens in log * Nicho Lucas MD April 25, 2022 11:06 AM [facility]01-26-2023 Attending History and physical note* SOULEYMANE Genao - 04/24/2022 2:34 PM EST STRUCTURAL HEART PERIOPERATIVE SURGICAL HISTORY AND PHYSICAL UPDATE Pre-op Diagnoses: Aortic valve stenosis, etiology of cardiac valve disease unspecified [I35.0] Procedure(s): TAVR Surgeon(s): Surgeon(s) and Role: * Lino Portillo MD, PhD - Primary * Nicho Lucas MD History and Physical Update: Blood pressure 117/58, pulse 56, temperature 98.2 F (36.8 C), temperature source Oral, resp. rate 16, height 1.499 m (4' 11), weight 62 kg (136 lb 11 oz), SpO2 96 %, not currently . I have reviewed this patient's medical, surgical and other pertinent history, and I have updated the medication and allergy information in the computerized patient record. I have examined the patient, reviewed the previous H&P completed on date (04/19/2022) and have noted the following changes:(see below) TAVR evaluation has been completed and patient found to be a candidate. Multidisciplinary Recommendations: Incremental Risks: CAD, PVD, DM2 and age. Surgical Risk Cohort Assignment: High STS Score: 13.508% Clinical Trial: No Referring Kennel Aide: INPT Consult Procedural Plan: 23 mm Lerner Lorelei via LTF Regarding Pre-operative Beta- Blockade: Pre-operative Beta Juan taken 24hrs prior to surgery Current NYHA: III PROBLEM LIST/MEDICAL COMORBIDITIES CAD HLD PVD Carotid Stenosis s/p TIA s/p endarteerectomy (L 2010, R 2017) HTN DM2 Acute on Chronic HFpEF at least in part due to aortic stenosis. Plan for TAVR , and continue GDMT post TAVR. Today's surgical history and physical update was completed by SOULEYMANE Genao. 04/24/2022, 2:35 PM Source Note - Tito Hunt MD - 04/17/2022 4:06 PM EST ACUTE CORONARY SERVICE HISTORY AND PHYSICAL IDENTIFYING INFORMATION PATIENT: Finesse Prather ADMIT DATE: 04/17/2022 TIME OF EVALUATION: 04/17/2022 4:07 PM CHIEF COMPLAINT Chest pain HISTORY OF PRESENT ILLNESS Finesse Prather is a 87 y.o. female with a history of CAD s/p stents, Aortic Stenosis, Mitral Valve Stenosis, Heart Failure, PAD, Carotid Stenosis s/p TIA s/p endarteerectomy (L 2010, R 2017) , HLD, HTN and T2DM (non-insulin dependent) presenting as a transfer from outside hospital. Presented to OSH for sudden onset sob. Pt recently admited to acute coronary for type 1 nstemi. And received PCI. Pt had recent she was ultimately taken to the tree tapping laborer and had 2 drug eluting stents (HIRAL) placed to the LAD. Due to persistent symptoms she underwent PCI on 04/04/22 with 1 HIRAL placed to the RCA. Pt had sudden onset shortness of breath per family. She was picked up by ems and brought to [place]. EMS placed pt on BIPAP because pt has saturation of 74%. Pts family states her bp was initially greater than 200. At outside hospital pt was note to have tachypnea and accessory muscle use. Moderate to severdistress noted. Vital signs at osh shoes initial systolic bp of 215 and 1 hr late bp was 91 systolic.Pts family gave pt clonidine prior to presenting to hospital. Pt was weaned to room air over that time. lab work was remarkable for wbc 12.3, creatinine .66, troponin 33, BNP 616, EKG was unremarkable with no changes from mar 25, 2022. Chest x-ray impression was small bilateral pleural effusions and bibasilar atelectasis or infiltrates, more pronounced on left. Currently pt is asymptomatic. Pt states she had the single episode of shortness of breath with no chest pain, palpitations, chest tightness, shoulder tightness, nausea, vomiting. Pt has experienced no orthopnea, or leg swelling. Pt has had no change in cough, congestion, fever. Pt states she has a stable chronic cough that is dry and nonproductive. Pt having no confusion, weakness, paresthesia. Pt has no abd pain, constipation, diarrhea, dysuria, hematuria. Pt has no signs of bleeding, hematuria, dark stools, or hematochezia. Pt describes taking her antihypertensive medications infrequently and not taking them when she feels weak. She states she often takes a half dose because a whole dose makes her to week. She can not tell me what medications she takes. During recent admission imaging studies were notable for. PAST MEDICAL, SURGICAL, FAMILY, and SOCIAL HISTORY Past Medical History: Diagnosis Date Aortic stenosis CAD (coronary artery disease) Carotid stenosis Diabetes mellitus type 2, noninsulin dependent On metformin Heart failure HLD (hyperlipidemia) PAD (peripheral artery disease) Presence of stent in coronary artery TIA (transient ischemic attack) Past Surgical History: Procedure Laterality Date CORONARY STENT PLACEMENT N/A 04/04/2022 Laterality: N/A; Surgeon: Criselda Bacon MD; Location: [facility] CATH CORONARY STENT PLACEMENT N/A 04/01/2022 Laterality: N/A; Surgeon: Eder Jaime Jr., MD; Location: [facility] CATH ENDARTERECTOMY CAROTID SUBCLAVIAN VERTEBRAL Right 05/05/2017 ENDARTERECTOMY CAROTID SUBCLAVIAN VERTEBRAL Left 2010 HYSTERECTOMY Family History Problem Relation Age of Onset Cancer Mother Stroke Mother Myocardial Infarction Father 80 Hypertension Father Coronary Artery Disease Father Diabetes Sister Stroke Sister 66 Social History Socioeconomic History Marital status: Spouse name: Earl Prather Number of children: 10 Tobacco Use Smoking status: Never Smokeless tobacco: Never Vaping Use Vaping Use: Never used Substance and Sexual Activity Alcohol use: Never Drug use: Never Other Topics Concern Service No Blood Transfusions No Caffeine Concern No Occupational Exposure No Hobby Hazards No Sleep Concern No Stress Concern No Weight Concern No Special Diet No Back Care No Exercise No Bike Helmet No Seat Belt No Domestic Violence No MEDICATIONS SCHEDULED: [START ON 04/18/2022] aspirin chewable tablet 81 mg, 81 mg, Daily carveDILOL (COREG) tablet 12.5 mg, 12.5 mg, Q12H [START ON 04/18/2022] Clopidogrel (PLAVIX) tablet 75 mg, 75 mg, Daily Enoxaparin Sodium (LOVENOX) injection 40 mg, 40 mg, Q24H Insulin lispro (HUMALOG) injection, , 4x daily w/meals, HS [START ON 04/18/2022] Sertraline (ZOLOFT) tablet 25 mg, 25 mg, Daily FLUIDS/DRIPS: PRNs: Insulin lispro, , PRN And Dextrose, 7.5-25 g, As directed PRN And glucose, 1-2 Tube, As directed PRN magnesium oxide, 800 mg, As directed PRN Magnesium Sulfate IVPB, 4 g, As directed PRN nitroGLYCERIN, 0.4 mg, Q5 MIN PRN Potassium chloride, 20 mEq, As directed PRN Potassium chloride, 40-60 mEq, As directed PRN Sodium chloride 0.9%, 250 mL, PRN ALLERGIES: She is allergic to statins. PRIOR TO ARRIVAL MEDS: Prior to Admission Medications Prescriptions Last Dose Informant Patient Reported? Taking? B Complex Vitamins (B COMPLEX 1 PO) Yes Yes Sig: Take 1 tablet by mouth daily. CHOLECALCIFEROL PO Yes No Sig: Take 1 tablet by mouth daily. Clopidogrel 75 MG tablet No Yes Sig: Take 1 tablet by mouth daily. Ezetimibe 10 MG tablet Yes Yes Sig: Take 1 tablet by mouth daily. Multiple Vitamins-Minerals (Multivitamin & Mineral) Liquid Yes Yes Sig: Take 1 fluid ounce by mouth daily. OMEGA 9-OPRGAN-HCBZEKRGPX PO Yes Yes Sig: Take 0.5 fluid ounces by mouth 2 times daily. [place]-3 Fatty Acids (OMEGA-3 FISH OIL PO) Yes Yes Sig: Take 2 capsules by mouth daily. Sertraline 25 MG tablet Yes Yes Sig: Take 1 tablet by mouth daily. aspirin 81 MG Chew Tab chewable tablet Yes Yes Sig: Chew 1 tablet daily. carveDILOL 12.5 MG tablet No Yes Sig: Take 1 tablet by mouth every 12 hours. metFORMIN 500 MG tablet Yes Yes Sig: Take 1 tablet by mouth 2 times daily with meals. nitroGLYCERIN 0.4 MG tablet SL Yes Yes Sig: Place 1 tablet under tongue every 5 minutes as needed for Chest pain. max = 3 doses. If CP persists after 1st dose, call 911 Facility-Administered Medications: None REVIEW OF SYSTEMS CONSTITUTIONAL: negative for fever, chills, sweats, weight change, fatigue EYES: negative for changes in vision or pain ENT: negative for rhinorrhea, sore throat CV: negative for chest pain, palpitations, peripheral edema PULM: negative for dyspnea, orthopnea, cough, hemoptysis GI: negative for nausea, vomiting, diarrhea, melena, hematochezia : negative for dysuria, hematuria MSK: negative for arthralgias, myalgias SKIN: negative for rash, sores NEURO: negative for headache, weakness HEME: negative for lymphadenopathy, easy bruising ENDO: negative for heat/cold intolerance, polydipsia ALLERGY: negative for hives, pruritis PSYCH: negative for depression, anxiety OBJECTIVE FINDINGS Vital Signs (24hrs): Vitals: 04/17/22 1430 BP: 149/69 Pulse: 74 Resp: 12 Temp: Temp: [97.6 F (36.4 C)] 97.6 F (36.4 C) Pulse (Heart Rate): [61-74] 74 Resp Rate: [10-22] 12 BP: (127-199)/(59-88) 149/69 O2 Sat (%): [92 %-97 %] 95 % Weight: [61.1 kg (134 lb 11.2 oz)] 61.1 kg (134 lb 11.2 oz) O2 Device: room air (04/17/22 1420) Flow (L/min): 2 (04/17/22 0817) Physical Examination: Gen: Well appearing in no distress. Eyes: PERRL, EOMI, normal appearing conjunctiva, sclera anicteric ENT: nares patent, without discharge; oropharynx appears normal; teeth and gingiva in good condition Neck: neck supple, nontender without thyromegaly, masses, or lymphadenopathy Resp: clear to auscultation bilaterally, no wheezes, rales, or ronchi Cardio: regular rate and rhythm, nl S1, S2, no S3, S4, no murmurs or rubs, nondisplaced PMI, no carotid bruits, no JVD or HJR, extremities well perfused with proximal and distal pulses intact bilaterally, cap refill < 2 seconds GI: soft, nontender, nondistended, bowel sounds active, no rebounding or guarding, no masses or organomegaly MS: moves all extremities, nails appear healthy Skin: no rash or bruises, warm and dry Neuro: grossly intact, no focal deficits Psych: appropriate affect, alert and oriented x3 Body mass index is 27.21 kg/m . DIAGNOSTIC RESULTS/PROCEDURES ABGs CBC WBC/Hgb/Hct/Plts: 8.38/11.7/34.8/229 (04/17 1151) Chem 7(PMC) Bun/Creat/Cl/CO2/Glucose: 16/0.52/105/24/91 (04/17 1151) Na/K+/Phos/Mg/Ca: 139/4.0/--/1.8/8.9 (04/17 1152) Additional Labs Lab Results Component Value Date BNP 553 (H) 04/17/2022 No results found for: TROP Lab Results Component Value Date CHOLESTEROL 242 (H) 04/17/2022 TRIG 112 04/17/2022 HDL 48 04/17/2022 Last Echocardiogram: Echocardiogram 04/01/22 Sub-optimal image quality, no prior echo at this institution. Left Ventricle: Chamber size is normal. Increased wall thickness. Concentric hypertrophy. Normal global wall motion. Regional wall motion is normal. Ejection fraction is normal (65 - 70%). Diastolic function is consistent with pseudonormalization (grade II). Probably elevated left atrial pressure. Right Ventricle: Chamber size is normal. Systolic function is normal. Left Atrium: Chamber size is mildly enlarged. Aortic Valve: Trileaflet valve. Non-specific thickening. Leaflet calcification. Leaflet excursion is decreased. Mild regurgitation. Severe stenosis. LVOT diameter: 1.95 cm. Mean gradient: 33 mmHg. Dimensionless Index by VTI: 0.23. Valve area continuity VTI: 0.69 cm2. The valve Vmax is 3.36 m/s. Estimated right ventricular systolic pressure is 26 mmHg. Last Cardiac Cath: Coronary angiogram 04/04/22 Impression Successful HIRAL placement to the mid RCA (3.0x28mm) Recommendations: Continue aggressive risk factor modification and medical management for CAD. Further recommendations per primary team Imaging/Radiological Studies: CXR - Small bilateral pleural effusions and mild interstitial pulmonary edema. Cardiomegaly. ASSESSMENT AND PLAN Finesse Prather is a 87 y.o. female with history of CAD s/p stents, Aortic Stenosis, Mitral Valve Stenosis, Heart Failure, PAD, Carotid Stenosis s/p TIA s/p endarteerectomy (L 2010, R 2017) , HLD, HTN and T2DM (non-insulin dependent) who presented to the OSH () with acute shortness of breath yesterday evening. Acute hypoxic respiratory failure secondary 2/2 flash pulmonary edema At OSH, she was sating at 78% on RA and placed on BIPAP. Pt presented to [facility] on room air sating mid90s. At this time pt is afebrile with no increased white count and symptoms have recovered. Unlikely infectious etiology. Will differ abx at this time with low threshold to start them. Unlikely pe aspt is has no signs or symptoms of dvt. Pt is asymptomatic at this time, and no hemoptysis. Most likely flash pulmonary edema. Current BP 220 - currently asymptomatic - will give hydralazine 10 mg at this time - will restart home medications to evaluate pts current regiment Multivessel obstructive coronary artery disease Coronary angiography at OSH on 03/21/22 demonstrate 90% stenosis in mLAD, 90% stenosis in D1, 90% stenosis in ostial circumflex, 30% RCA in stent stenosis and 80% stenosis of distal RCA. S/P angiogram on 04/01/22 with 2 drug eluting stents to LAD. No chest pain during episode with high sensitivity troponin of 33 at osh with unremarkable ekg. - Continue ASA and Plavix - Nitroglycerin PRN for chest pain - Telemetry Severe Aortic Stenosis Transferred here for continued TAVR workup. - TTE showed severe aortic stenosis: mean gradient 33 mmHg, valve area cont 0.69 cm2, valve vmax 3.36 m/s - CT TAVR ordered while inpatient - Cleared by dentistry during last admision Essential Hypertension Home regimen: - Carvedilol 12.5 Hyperlipidemia Reportedly had muscle spasm and pain with statin. - om ezetimibe at home, will hold for now - On omega-3 fa at home, but low dose not on inpatient formulary Peripheral Artery Disease - Continue ASA Diabetes Mellitus, Type 2 Non-insulin dependent Well controlled, Hgb A1c 6.8. - Holding home metformin while admitted - SSI/CC, diabetic diet Depression - Continue sertraline FEN/GI: DIET heart healthy Ppx: levonox Dispo: ACS Code Status: DNRCC-ARREST Plan discussed with office coordinator Signed, Tito Hunt MD PGY-1, Emergency Medicine [facility]01-26-2023 History and physical note* Jacinta Sebastian, GAME PROTECTOR-[facility] - 04/24/2022 2:34 PM EST STRUCTURAL HEART PERIOPERATIVE SURGICAL HISTORY AND PHYSICAL UPDATE Pre-op Diagnoses: Aortic valve stenosis, etiology of cardiac valve disease unspecified [I35.0] Procedure(s): TAVR Surgeon(s): Surgeon(s) and Role: * Lino Portillo MD, PhD - Primary * Nicho Lucas MD History and Physical Update: Blood pressure 117/58, pulse 56, temperature 98.2 F (36.8 C), temperature source Oral, resp. rate 16, height 1.499 m (4' 11), weight 62 kg (136 lb 11 oz), SpO2 96 %, not currently . I have reviewed this patient's medical, surgical and other pertinent history, and I have updated the medication and allergy information in the computerized patient record. I have examined the patient, reviewed the previous H&P completed on date (04/19/2022) and have noted the following changes:(see below) TAVR evaluation has been completed and patient found to be a candidate. Multidisciplinary Recommendations: Incremental Risks: CAD, PVD, DM2 and age. Surgical Risk Cohort Assignment: High STS Score: 13.508% Clinical Trial: No Referring Kennel Aide: INPT Consult Procedural Plan: 23 mm Lerner Lorelei via LTF Regarding Pre-operative Beta- Blockade: Pre-operative Beta Juan taken 24hrs prior to surgery Current NYHA: III PROBLEM LIST/MEDICAL COMORBIDITIES CAD HLD PVD Carotid Stenosis s/p TIA s/p endarteerectomy (2010, 2017) HTN DM2 Acute on Chronic HFpEF at least in part due to aortic stenosis. Plan for TAVR , and continue GDMT post TAVR. Today's surgical history and physical update was completed by Jacinta Sebastian APRN-GLOB[employer] AFFAIRS MANAGER. 04/24/2022, 2:35 PM Source Note - Tito Hunt MD - 04/17/2022 4:06 PM EST ACUTE CORONARY SERVICE HISTORY AND PHYSICAL IDENTIFYING INFORMATION PATIENT: Finesse Prather ADMIT DATE: 04/17/2022 TIME OF EVALUATION: 04/17/2022 4:07 PM CHIEF COMPLAINT Chest pain HISTORY OF PRESENT ILLNESS Finesse Prather is a 87 y.o. female with a history of CAD s/p stents, Aortic Stenosis, Mitral Valve Stenosis, Heart Failure, PAD, Carotid Stenosis s/p TIA s/p endarteerectomy (2010, 2017) , HLD, HTN and T2DM (non-insulin dependent) presenting as a transfer from outside hospital. Presented to OSH for sudden onset sob. Pt recently admited to acute coronary for type 1 nstemi. And received PCI. Pt had recent she was ultimately taken to the tree tapping laborer and had 2 drug eluting stents (HIRAL) placed to the LAD. Due to persistent symptoms she underwent PCI on 04/04/22 with 1 HIRAL placed to the RCA. Pt had sudden onset shortness of breath per family. She was picked up by ems and brought to [place]. EMS placed pt on BIPAP because pt has saturation of 74%. Pts family states her bp was initially greater than 200. At outside hospital pt was note to have tachypnea and accessory muscle use. Moderate to severdistress noted. Vital signs at osh shoes initial systolic bp of 215 and 1 hr late bp was 91 systolic.Pts family gave pt clonidine prior to presenting to hospital. Pt was weaned to room air over that time. lab work was remarkable for wbc 12.3, creatinine .66, troponin 33, BNP 616, EKG was unremarkable with no changes from mar 25, 2022. Chest x-ray impression was small bilateral pleural effusions and bibasilar atelectasis or infiltrates, more pronounced on left. Currently pt is asymptomatic. Pt states she had the single episode of shortness of breath with no chest pain, palpitations, chest tightness, shoulder tightness, nausea, vomiting. Pt has experienced no orthopnea, or leg swelling. Pt has had no change in cough, congestion, fever. Pt states she has a stable chronic cough that is dry and nonproductive. Pt having no confusion, weakness, paresthesia. Pt has no abd pain, constipation, diarrhea, dysuria, hematuria. Pt has no signs of bleeding, hematuria, dark stools, or hematochezia. Pt describes taking her antihypertensive medications infrequently and not taking them when she feels weak. She states she often takes a half dose because a whole dose makes her to week. She can not tell me what medications she takes. During recent admission imaging studies were notable for. PAST MEDICAL, SURGICAL, FAMILY, and SOCIAL HISTORY Past Medical History: Diagnosis Date Aortic stenosis CAD (coronary artery disease) Carotid stenosis Diabetes mellitus type 2, noninsulin dependent On metformin Heart failure HLD (hyperlipidemia) PAD (peripheral artery disease) Presence of stent in coronary artery TIA (transient ischemic attack) Past Surgical History: Procedure Laterality Date CORONARY STENT PLACEMENT N/A 04/04/2022 Laterality: N/A; Surgeon: Criselda Bacon MD; Location: [facility] CATH CORONARY STENT PLACEMENT N/A 04/01/2022 Laterality: N/A; Surgeon: Eder Jaime Jr., MD; Location: [facility] CATH ENDARTERECTOMY CAROTID SUBCLAVIAN VERTEBRAL Right 05/05/2017 ENDARTERECTOMY CAROTID SUBCLAVIAN VERTEBRAL Left 2010 HYSTERECTOMY Family History Problem Relation Age of Onset Cancer Mother Stroke Mother Myocardial Infarction Father 80 Hypertension Father Coronary Artery Disease Father Diabetes Sister Stroke Sister 66 Social History Socioeconomic History Marital status: Spouse name: Earl Prather Number of children: 10 Tobacco Use Smoking status: Never Smokeless tobacco: Never Vaping Use Vaping Use: Never used Substance and Sexual Activity Alcohol use: Never Drug use: Never Other Topics Concern Service No Blood Transfusions No Caffeine Concern No Occupational Exposure No Hobby Hazards No Sleep Concern No Stress Concern No Weight Concern No Special Diet No Back Care No Exercise No Bike Helmet No Seat Belt No Domestic Violence No MEDICATIONS SCHEDULED: [START ON 04/18/2022] aspirin chewable tablet 81 mg, 81 mg, Daily carveDILOL (COREG) tablet 12.5 mg, 12.5 mg, Q12H [START ON 04/18/2022] Clopidogrel (PLAVIX) tablet 75 mg, 75 mg, Daily Enoxaparin Sodium (LOVENOX) injection 40 mg, 40 mg, Q24H Insulin lispro (HUMALOG) injection, , 4x daily w/meals, HS [START ON 04/18/2022] Sertraline (ZOLOFT) tablet 25 mg, 25 mg, Daily FLUIDS/DRIPS: PRNs: Insulin lispro, , PRN And Dextrose, 7.5-25 g, As directed PRN And glucose, 1-2 Tube, As directed PRN magnesium oxide, 800 mg, As directed PRN Magnesium Sulfate IVPB, 4 g, As directed PRN nitroGLYCERIN, 0.4 mg, Q5 MIN PRN Potassium chloride, 20 mEq, As directed PRN Potassium chloride, 40-60 mEq, As directed PRN Sodium chloride 0.9%, 250 mL, PRN ALLERGIES: She is allergic to statins. PRIOR TO ARRIVAL MEDS: Prior to Admission Medications Prescriptions Last Dose Informant Patient Reported? Taking? B Complex Vitamins (B COMPLEX 1 PO) Yes Yes Sig: Take 1 tablet by mouth daily. CHOLECALCIFEROL PO Yes No Sig: Take 1 tablet by mouth daily. Clopidogrel 75 MG tablet No Yes Sig: Take 1 tablet by mouth daily. Ezetimibe 10 MG tablet Yes Yes Sig: Take 1 tablet by mouth daily. Multiple Vitamins-Minerals (Multivitamin & Mineral) Liquid Yes Yes Sig: Take 1 fluid ounce by mouth daily. OMEGA 2-ZUIWUO-TVUXAPCHLR PO Yes Yes Sig: Take 0.5 fluid ounces by mouth 2 times daily. [place]-3 Fatty Acids (OMEGA-3 FISH OIL PO) Yes Yes Sig: Take 2 capsules by mouth daily. Sertraline 25 MG tablet Yes Yes Sig: Take 1 tablet by mouth daily. aspirin 81 MG Chew Tab chewable tablet Yes Yes Sig: Chew 1 tablet daily. carveDILOL 12.5 MG tablet No Yes Sig: Take 1 tablet by mouth every 12 hours. metFORMIN 500 MG tablet Yes Yes Sig: Take 1 tablet by mouth 2 times daily with meals. nitroGLYCERIN 0.4 MG tablet SL Yes Yes Sig: Place 1 tablet under tongue every 5 minutes as needed for Chest pain. max = 3 doses. If CP persists after 1st dose, call 911 Facility-Administered Medications: None REVIEW OF SYSTEMS CONSTITUTIONAL: negative for fever, chills, sweats, weight change, fatigue EYES: negative for changes in vision or pain ENT: negative for rhinorrhea, sore throat CV: negative for chest pain, palpitations, peripheral edema PULM: negative for dyspnea, orthopnea, cough, hemoptysis GI: negative for nausea, vomiting, diarrhea, melena, hematochezia : negative for dysuria, hematuria MSK: negative for arthralgias, myalgias SKIN: negative for rash, sores NEURO: negative for headache, weakness HEME: negative for lymphadenopathy, easy bruising ENDO: negative for heat/cold intolerance, polydipsia ALLERGY: negative for hives, pruritis PSYCH: negative for depression, anxiety OBJECTIVE FINDINGS Vital Signs (24hrs): Vitals: 04/17/22 1430 BP: 149/69 Pulse: 74 Resp: 12 Temp: Temp: [97.6 F (36.4 C)] 97.6 F (36.4 C) Pulse (Heart Rate): [61-74] 74 Resp Rate: [10-22] 12 BP: (127-199)/(59-88) 149/69 O2 Sat (%): [92 %-97 %] 95 % Weight: [61.1 kg (134 lb 11.2 oz)] 61.1 kg (134 lb 11.2 oz) O2 Device: room air (04/17/22 1420) Flow (L/min): 2 (04/17/22 0817) Physical Examination: Gen: Well appearing in no distress. Eyes: PERRL, EOMI, normal appearing conjunctiva, sclera anicteric ENT: nares patent, without discharge; oropharynx appears normal; teeth and gingiva in good condition Neck: neck supple, nontender without thyromegaly, masses, or lymphadenopathy Resp: clear to auscultation bilaterally, no wheezes, rales, or ronchi Cardio: regular rate and rhythm, nl S1, S2, no S3, S4, no murmurs or rubs, nondisplaced PMI, no carotid bruits, no JVD or HJR, extremities well perfused with proximal and distal pulses intact bilaterally, cap refill < 2 seconds GI: soft, nontender, nondistended, bowel sounds active, no rebounding or guarding, no masses or organomegaly MS: moves all extremities, nails appear healthy Skin: no rash or bruises, warm and dry Neuro: grossly intact, no focal deficits Psych: appropriate affect, alert and oriented x3 Body mass index is 27.21 kg/m . DIAGNOSTIC RESULTS/PROCEDURES ABGs CBC WBC/Hgb/Hct/Plts: 8.38/11.7/34.8/229 (04/17 1151) Chem 7(PMC) Bun/Creat/Cl/CO2/Glucose: 16/0.52/105/24/91 (04/17 1151) Na/K+/Phos/Mg/Ca: 139/4.0/--/1.8/8.9 (04/17 1151) Additional Labs Lab Results Component Value Date BNP 553 (H) 04/17/2022 No results found for: TROP Lab Results Component Value Date CHOLESTEROL 242 (H) 04/17/2022 TRIG 112 04/17/2022 HDL 48 04/17/2022 Last Echocardiogram: Echocardiogram 04/01/22 Sub-optimal image quality, no prior echo at this institution. Left Ventricle: Chamber size is normal. Increased wall thickness. Concentric hypertrophy. Normal global wall motion. Regional wall motion is normal. Ejection fraction is normal (65 - 70%). Diastolic function is consistent with pseudonormalization (grade II). Probably elevated left atrial pressure. Right Ventricle: Chamber size is normal. Systolic function is normal. Left Atrium: Chamber size is mildly enlarged. Aortic Valve: Trileaflet valve. Non-specific thickening. Leaflet calcification. Leaflet excursion is decreased. Mild regurgitation. Severe stenosis. LVOT diameter: 1.95 cm. Mean gradient: 33 mmHg. Dimensionless Index by VTI: 0.23. Valve area continuity VTI: 0.69 cm2. The valve Vmax is 3.36 m/s. Estimated right ventricular systolic pressure is 26 mmHg. Last Cardiac Cath: Coronary angiogram 04/04/22 Impression Successful HIRAL placement to the mid RCA (3.0x28mm) Recommendations: Continue aggressive risk factor modification and medical management for CAD. Further recommendations per primary team Imaging/Radiological Studies: CXR - Small bilateral pleural effusions and mild interstitial pulmonary edema. Cardiomegaly. ASSESSMENT AND PLAN Finesse Prather is a 87 y.o. female with history of CAD s/p stents, Aortic Stenosis, Mitral Valve Stenosis, Heart Failure, PAD, Carotid Stenosis s/p TIA s/p endarteerectomy (L 2010, R 2017) , HLD, HTN and T2DM (non-insulin dependent) who presented to the OSH ([facility]) with acute shortness of breath yesterday evening. Acute hypoxic respiratory failure secondary 2/2 flash pulmonary edema At OSH, she was sating at 78% on RA and placed on BIPAP. Pt presented to [facility] on room air sating mid90s. At this time pt is afebrile with no increased white count and symptoms have recovered. Unlikely infectious etiology. Will differ abx at this time with low threshold to start them. Unlikely pe aspt is has no signs or symptoms of dvt. Pt is asymptomatic at this time, and no hemoptysis. Most likely flash pulmonary edema. Current BP 220 - currently asymptomatic - will give hydralazine 10 mg at this time - will restart home medications to evaluate pts current regiment Multivessel obstructive coronary artery disease Coronary angiography at OSH on 03/21/22 demonstrate 90% stenosis in mLAD, 90% stenosis in D1, 90% stenosis in ostial circumflex, 30% RCA in stent stenosis and 80% stenosis of distal RCA. S/P angiogram on 04/01/22 with 2 drug eluting stents to LAD. No chest pain during episode with high sensitivity troponin of 33 at osh with unremarkable ekg. - Continue ASA and Plavix - Nitroglycerin PRN for chest pain - Telemetry Severe Aortic Stenosis Transferred here for continued TAVR workup. - TTE showed severe aortic stenosis: mean gradient 33 mmHg, valve area cont 0.69 cm2, valve vmax 3.36 m/s - CT TAVR ordered while inpatient - Cleared by dentistry during last admision Essential Hypertension Home regimen: - Carvedilol 12.5 Hyperlipidemia Reportedly had muscle spasm and pain with statin. - om ezetimibe at home, will hold for now - On omega-3 fa at home, but low dose not on inpatient formulary Peripheral Artery Disease - Continue ASA Diabetes Mellitus, Type 2 Non-insulin dependent Well controlled, Hgb A1c 6.8. - Holding home metformin while admitted - SSI/CC, diabetic diet Depression - Continue sertraline FEN/GI: DIET heart healthy Ppx: levonox Dispo: ACS Code Status: DNRCC-ARREST Plan discussed with office coordinator Signed, Tito Hunt MD PGY-1, Emergency [facility]* Plan of Care - Radha Delgadillo OT - 04/24/2022 11:20 AM EST Problem: OT - Dressing Goal: Lower Body Dressing Description: Pt will complete LE dressing tasks with independence for improved ability to complete self-care activities. Outcome: Ongoing Problem: OT - ADLs Goal: Toileting Description: Pt will complete toileting task including clothing management with independence for improved ability to safely complete self-care activities. Outcome: Ongoing Problem: OT - Endurance Goal: Endurance Functional Mobilty Around Home Description: Pt will complete distance needed for common household mobility with modified independence. Outcome: Ongoing Problem: OT - Transfers Goal: Transfers Toilet/Bedside Commode Description: Pt will transfer to/from toilet/BSC with modified independence for improved ability tosafely complete ADLs. Outcome: Ongoing [facility]01-26-2023 Note* Plan of Care - Nathalie Damon RN - 04/24/2022 10:28 AM EST 2 Ross Daily Rounding Plan of Care The following multidisciplinary plan of care was discussed with the attending service regarding Finesse Prather. Today's Plan of Care: -Continue med regimen for BP management -TAVR scheduled 04/25, NPO midnight Cardiac Monitoring Current Cardiac Monitoring order: yes Renewal order indicated no 4 hour telemetry recall: NS Oxygen O2 Sat (%): 94 % (04/24 740) O2 Device: room air (04/24 740) LDAs The type, length of duration and necessity of all lines and drains listed below was reviewed, in order to prevent any possible sources of infection and encourage timely removal. Shazia indicated: No Central line indicated: No Patient Lines/Drains/Airways Status Active Lines, Drains, Airways, & Wound Overview Name Placement date Placement time Site Days Peripheral IV Line - Single Lumen 04/19/22 median cubital vein (antecubital fossa), left 20 gauge 04/19/22 -- -- 5 Peripheral IV Line - Single Lumen 04/20/22 2337 metacarpal vein (top of hand), left 20 gauge 04/20/22 2337 -- 3 Mobility Activity plan: with minor assitance PT/OT: yes Need for DVT prophylaxis: yes Subcutaneous lovenox Consults/Discharge Planning Social Work: no Case Management needs: no Cardiac rehab: no Estimated Discharge Date 04/26 Nathalie Damon RN [facility]01-25-2023 Note* Plan of Care - Rosina Luke RN - 04/23/2022 11:29 PM EST Problem: Patient Care Overview Goal: Plan of Care Review Outcome: Ongoing Goal: Individualization & Mutuality Outcome: Ongoing Goal: Discharge Needs Assessment Outcome: Ongoing Goal: Interdisciplinary Rounds/Family Conf Outcome: Ongoing Problem: Fall/Trauma/Injury Risk (Adult) Goal: Fall/Trauma/Injury Risk: Absence of Trauma/Injury/Falls Description: Patient will demonstrate the desired outcomes. Outcome: Ongoing Problem: Transcatheter Aortic Valve Replacement (TAVR) (Adult) Goal: Signs and Symptoms of Listed Potential Problems Will be Absent or Manageable Description: Signs and symptoms of listed potential problems will be absent or manageable by discharge/transition of care. Outcome: Ongoing Goal: Stable Weight Description: Patient will demonstrate the desired outcomes by discharge/transition of care. Outcome: Ongoing Problem: Nutrition, Imbalanced: Inadequate Oral Intake (Adult) Goal: Identify Related Risk Factors and Signs and Symptoms Description: Related risk factors and signs and symptoms are identified upon initiation of Human Response Clinical Practice Guideline (CPG) Outcome: Ongoing [facility]01-25-2023 Note* Plan of Care - Mena Torres RN - 04/23/2022 5:51 PM EST Interdisciplinary Daily Rounding Plan of Care The following multidisciplinary plan of care was discussed with the attending service regarding Finesse Prather. Cardiac Monitoring - Current Cardiac Monitoring order: yes - Renewal order indicated no - 24 hour telemetry recall: NSR Oxygen O2 Sat (%): 95 % (04/23 1500) O2 Device: room air (04/23 1500) Patient Lines/Drains/Airways Status Active Lines, Drains, Airways, & Wound Overview Name Placement date Placement time Site Days Peripheral IV Line - Single Lumen 04/19/22 median cubital vein (antecubital fossa), left 20 gauge 04/19/22 -- -- 4 Peripheral IV Line - Single Lumen 04/20/22 2337 metacarpal vein (top of hand), left 20 gauge 04/20/22 2337 -- 2 The team discussed and reviewed the need or discontinuation for all lines, drains, and devices listed below in order to prevent any possible sources of infection. - Mccray indicated: No - Central line indicated: No Accommodation Code - Code Status DNRCC-ARREST MEWS MEWS Score (Validated): -- RASS: 0-->alert and calm (04/23 1540) Pain DVPRS: Rest: 0- no pain DVPRS: Activity: 0- no pain Tyler Tyler Score: 20 Nutrition DIET HEART HEALTHY - 4 GM SODIUM Carb Controlled DIET NPO with meds Daily weights Wt Readings from Last 1 Encounters: 04/23/22 61.1 kg (134 lb 11.2 oz) Mobility - Activity plan: with minor assitance - PT/OT: yes - Cardiac Rehab consult: no - Need for DVT prophylaxis: yes Consults/Discharge Planning - Social Work: no - Case Management needs: no - Palliative: no - PT/OT: yes - Other: Plan Of Care - Tests: NA - Procedures: TAVR Thursday CURRENT HOSPITALIZATION/ LOS: Admit Date: 04/20/2022 [facility] LOS: 3 days ? MEDICATIONS: Scheduled Meds: aspirin 81 mg Oral Daily B Complex 1 capsule Oral Daily carveDILOL 25 mg Oral Q12H Cholecalciferol 5,000 Units Oral Daily Clopidogrel 75 mg Oral Daily enoxaparin 40 mg Subcutaneous Daily Ezetimibe 10 mg Oral Daily Insulin lispro Subcutaneous 4x daily w/meals, HS Sertraline 25 mg Oral Daily Continuous Infusions: ? ? Vital Signs: Vital Signs (24hrs): Temp: [97.6 F (36.4 C)-98.4 F (36.9 C)] 98.3 F (36.8 C) Pulse (Heart Rate): [57-81] 66 Resp Rate: [9-22] 14 BP: (153-183)/(60-79) 172/72 O2 Sat (%): [94 %-96 %] 95 % Weight: [61.1 kg (134 lb 11.2 oz)] 61.1 kg (134 lb 11.2 oz) DATA REVIEW: Fluid Management (24hrs): I/O last 3 completed shifts: In: 800 [P.O.:800] Out: 1500 [Urine:1500] Labs: Lab Results Component Value Date WBC 6.07 04/23/2022 HGB 11.3 (L) 04/23/2022 HCT 33.9 (L) 04/23/2022 PLATELET 224 04/23/2022 MCV 87.1 04/23/2022 Lab Results Component Value Date SODIUM 140 04/23/2022 POTASSIUM 4.7 04/23/2022 CHLORIDE 106 04/23/2022 CO2 24 04/23/2022 BUN 20 04/23/2022 CREATSERUM 0.57 04/23/2022 GLUCOSE 89 04/23/2022 Lab Results Component Value Date ALT 55 (H) 04/17/2022 AST 42 (H) 04/17/2022 ALKPHOS 93 04/17/2022 BILITOTAL 1.0 04/17/2022 BILIDIRECT 0.1 04/17/2022 ? Lab Results Component Value Date BNP 426 (H) 04/20/2022 No results found for: TSH, ZLB18TQT, ZWG01SEM, TSHBASELINE, TSHULTRASEN, TSHRFT4 ? Mena Torres RN [facility]01-25-2023 Note* Plan of Care - Radha Finch RD - 04/23/2022 3:38 PM EST Problem: Nutrition, Imbalanced: Inadequate Oral Intake (Adult) Goal: Identify Related Risk Factors and Signs and Symptoms Description: Related risk factors and signs and symptoms are identified upon initiation of Human Response Clinical Practice Guideline (CPG) Outcome: Ongoing Note: Nutrition Recommendations and Plan of Care: 1. Continue current diet order as tolerated. 2. Will order Glucerna (220 kcal; 10g protein) x 1 daily to increase calorie and protein intake. 3. Recommend checking Mg, PO4, K+ daily and replacing as appropriate. 4. Monitor intakes, skin, labs, weight status, stool output. 5. RD to continue to follow. [facility]01-25-2023 Note* Plan of Care - Radha Delgadillo OT - 04/23/2022 1:36 PM EST Problem: OT - ADLs Goal: Toileting Description: Pt will complete toileting task including clothing management with independence for improved ability to safely complete self-care activities. Outcome: Ongoing Problem: OT - Endurance Goal: Endurance Functional Mobilty Around Home Description: Pt will complete distance needed for common household mobility with modified independence. Outcome: Ongoing Problem: OT - Transfers Goal: Transfers Toilet/Bedside Commode Description: Pt will transfer to/from toilet/BSC with modified independence for improved ability tosafely complete ADLs. Outcome: Ongoing [facility]01-24-2023 Note* Plan of Care - Rosina Luke RN - 04/22/2022 11:04 PM EST Problem: Patient Care Overview Goal: Plan of Care Review 04/22/20222302 by Rosina Luke RN Outcome: Ongoing 04/22/20222301 by Rosina Luke RN Outcome: Ongoing Goal: Individualization & Mutuality 04/22/20222302 by Rosina Luke RN Outcome: Ongoing 04/22/20222301 by Rosina Luke RN Outcome: Ongoing Goal: Discharge Needs Assessment 04/22/20222302 by Rosina Luke RN Outcome: Ongoing 04/22/20222301 by Rosnia Luke RN Outcome: Ongoing Goal: Interdisciplinary Rounds/Family Conf 04/22/20222302 by Rosina Luke RN Outcome: Ongoing 04/22/20222301 by Rosina Luke RN Outcome: Ongoing Problem: Fall/Trauma/Injury Risk (Adult) Goal: Fall/Trauma/Injury Risk: Absence of Trauma/Injury/Falls Description: Patient will demonstrate the desired outcomes. 04/22/20222302 by Rosina Luke RN Outcome: Ongoing 04/22/20222301 by Rosina Luke RN Outcome: Ongoing Problem: Transcatheter Aortic Valve Replacement (TAVR) (Adult) Goal: Signs and Symptoms of Listed Potential Problems Will be Absent or Manageable Description: Signs and symptoms of listed potential problems will be absent or manageable by discharge/transition of care. Outcome: Ongoing Goal: Stable Weight Description: Patient will demonstrate the desired outcomes by discharge/transition of care. Outcome: Ongoing [facility]01-24-2023 Note* Plan of Care - Valerie Bishop RN - 04/22/2022 5:43 PM EST 2 Ross Daily Rounding Plan of Care The following multidisciplinary plan of care was discussed with the attending service regarding Finesse Prather. Today's Plan of Care: - pt hypotensive with PT today, no change in meds - TAVR planned for 05/26 - renal ultrasound completed Cardiac Monitoring Current Cardiac Monitoring order: yes Renewal order indicated yes 4 hour telemetry recall: See Flowsheet Oxygen O2 Sat (%): 95 % (04/22 1500) O2 Device: room air (04/22 1500) LDAs The type, length of duration and necessity of all lines and drains listed below was reviewed, in order to prevent any possible sources of infection and encourage timely removal. - Mccray indicated: No - Central line indicated: No Patient Lines/Drains/Airways Status Active Lines, Drains, Airways, & Wound Overview Name Placement date Placement time Site Days Peripheral IV Line - Single Lumen 04/19/22 median cubital vein (antecubital fossa), left 20 gauge 04/19/22 -- -- 3 Peripheral IV Line - Single Lumen 04/20/22 2337 metacarpal vein (top of hand), left 20 gauge 04/20/22 2337 -- 1 Mobility Activity plan: independent but with effort PT/OT: yes Need for DVT prophylaxis: yes Consults/Discharge Planning Social Work: yes Case Management needs: yes Cardiac rehab: yes Estimated Discharge Date Unknown at this time Problem: Patient Care Overview Goal: Interdisciplinary Rounds/Family Conf Outcome: Met This Shift Problem: Patient Care Overview Goal: Plan of Care Review Outcome: Ongoing Goal: Individualization & Mutuality Outcome: Ongoing Problem: Patient Care Overview Goal: Discharge Needs Assessment Outcome: Progressing Toward Goal Valerie Bishop RN [facility]01-24-2023 Note* Plan of Care - Rico Hicks, PT - 04/22/2022 2:40 PM EST Problem: PT - Balance/Coordination/Neuro Re-Education Goal: Standing Dynamic/Static Balance Description: Pt will perform standing balance tasks for 10 minutes with supervision with appropriate assistive device as needed in order to improve functional mobility and safety with standing tasks. Outcome: Progressing Toward Goal Problem: PT - Mobility Goal: Ambulation Description: Pt will ambulate 150 feet with appropriate assistive device as needed with supervisionto improve ability to navigate home environment. Outcome: Progressing Toward Goal Problem: PT - Transfers Goal: Supine <-> Sit Description: Pt will perform bed mobility with flat bed & no rail with independence in order toimprove functional mobility and safety. Outcome: Progressing Toward Goal Goal: Sit <-> Stand Description: Pt will perform sit to/from stand transfers with supervision with appropriate assistive device as needed in order to improve functional mobility and safety. Outcome: Progressing Toward Goal Goal: Stand-Pivot Description: Pt will perform stand/pivot transfer to/from bed/chair/commode with supervision with appropriate assistive device as needed in order to improve functional mobility and safety. Outcome: Progressing Toward Goal Goal: Strength/ROM Description: Pt will perform 2 sets of 10 repetitions of lower bilateral extremity exercises with independence in order to improve strength, maintain ROM, necessary for functional mobility. Outcome: Progressing Toward Goal [facility]01-24-2023 Note* Plan of Care - Rosina Luke RN - 04/22/2022 1:44 AM EST Problem: Patient Care Overview Goal: Plan of Care Review Outcome: Ongoing Goal: Individualization & Mutuality Outcome: Ongoing Goal: Discharge Needs Assessment Outcome: Ongoing Goal: Interdisciplinary Rounds/Family Conf Outcome: Ongoing Problem: Fall/Trauma/Injury Risk (Adult) Goal: Fall/Trauma/Injury Risk: Absence of Trauma/Injury/Falls Description: Patient will demonstrate the desired outcomes. Outcome: Ongoing [facility]01-23-2023 Note* Plan of Care - Rico Hicks PT - 04/21/2022 3:20 PM EST Problem: PT - Mobility Goal: Ambulation Description: Pt will ambulate 150 feet with appropriate assistive device as needed with supervisionto improve ability to navigate home environment. Outcome: Progressing Toward Goal Problem: PT - Transfers Goal: Sit <-> Stand Description: Pt will perform sit to/from stand transfers with supervision with appropriate assistive device as needed in order to improve functional mobility and safety. Outcome: Progressing Toward Goal Goal: Stand-Pivot Description: Pt will perform stand/pivot transfer to/from bed/chair/commode with supervision with appropriate assistive device as needed in order to improve functional mobility and safety. Outcome: Progressing Toward Goal Goal: Strength/ROM Description: Pt will perform 2 sets of 10 repetitions of lower bilateral extremity exercises with independence in order to improve strength, maintain ROM, necessary for functional mobility. Outcome: Progressing Toward Goal [facility]01-23-2023 Note* Plan of Care - Cristina Diaz RN - 04/21/2022 11:54 AM EST Problem: Patient Care Overview Goal: Plan of Care Review Outcome: Ongoing Goal: Individualization & Mutuality Outcome: Ongoing Goal: Discharge Needs Assessment Outcome: Ongoing Goal: Interdisciplinary Rounds/Family Conf Outcome: Ongoing Problem: Fall/Trauma/Injury Risk (Adult) Goal: Fall/Trauma/Injury Risk: Absence of Trauma/Injury/Falls Description: Patient will demonstrate the desired outcomes. Outcome: Ongoing [facility]01-23-2023 Note* Plan of Care - Radha Delgadillo OT - 04/21/2022 11:29 AM EST Problem: OT - Dressing Goal: Lower Body Dressing Description: Pt will complete LE dressing tasks with independence for improved ability to complete self-care activities. Outcome: Ongoing Problem: OT - ADLs Goal: Toileting Description: Pt will complete toileting task including clothing management with independence for improved ability to safely complete self-care activities. Outcome: Ongoing Goal: Bathing Description: Pt will perform full body bathing routine with modified independence while seated for improved ability to complete self-care activities. Outcome: Ongoing Problem: OT - Endurance Goal: Endurance Functional Mobilty Around Home Description: Pt will complete distance needed for common household mobility with modified independence. Outcome: Ongoing Problem: OT - Transfers Goal: Transfers Toilet/Bedside Commode Description: Pt will transfer to/from toilet/BSC with modified independence for improved ability tosafely complete ADLs. Outcome: Ongoing [facility]01-23-2023 Note* Plan of Care - Adolph Corea RN - 04/21/2022 1:57 AM EST Problem: Patient Care Overview Goal: Plan of Care Review Outcome: Progressing Toward Goal Goal: Individualization & Mutuality Outcome: Progressing Toward Goal Goal: Discharge Needs Assessment Outcome: Progressing Toward Goal Goal: Interdisciplinary Rounds/Family Conf Outcome: Progressing Toward Goal Problem: Fall/Trauma/Injury Risk (Adult) Goal: Fall/Trauma/Injury Risk: Absence of Trauma/Injury/Falls Description: Patient will demonstrate the desired outcomes. Outcome: Progressing Toward Goal Note: Observation of patient ambulation in with 1 person assist and gait belt. Gripper socks also provided for utilization when out of bed. Goal: Knowledge of risk factors/behavior modification Description: Knowledge of risk factors/behavior modification for fall/injury prevention Outcome: Progressing Toward Goal Problem: PT - Mobility Goal: Ambulation Description: Pt will ambulate 150 feet with appropriate assistive device as needed with supervisionto improve ability to navigate home environment. Outcome: Progressing Toward Goal Problem: PT - Transfers Goal: Supine <-> Sit Description: Pt will perform bed mobility with flat bed & no rail with independence in order toimprove functional mobility and safety. Outcome: Progressing Toward Goal Goal: Sit <-> Stand Description: Pt will perform sit to/from stand transfers with supervision with appropriate assistive device as needed in order to improve functional mobility and safety. Outcome: Progressing Toward Goal Goal: Stand-Pivot Description: Pt will perform stand/pivot transfer to/from bed/chair/commode with supervision with appropriate assistive device as needed in order to improve functional mobility and safety. Outcome: Progressing Toward Goal Goal: Strength/ROM Description: Pt will perform 2 sets of 10 repetitions of lower bilateral extremity exercises with independence in order to improve strength, maintain ROM, necessary for functional mobility. Outcome: Progressing Toward Goal Problem: OT - Dressing Goal: Lower Body Dressing Description: Pt will complete LE dressing tasks with independence for improved ability to complete self-care activities. Outcome: Progressing Toward Goal Problem: OT - ADLs Goal: Toileting Description: Pt will complete toileting task including clothing management with independence for improved ability to safely complete self-care activities. Outcome: Progressing Toward Goal Problem: OT - Endurance Goal: Endurance Functional Mobilty Around Home Description: Pt will complete distance needed for common household mobility with modified independence. Outcome: Progressing Toward Goal Problem: OT - Transfers Goal: Transfers Toilet/Bedside Commode Description: Pt will transfer to/from toilet/BSC with modified independence for improved ability tosafely complete ADLs. Outcome: Progressing Toward Goal [facility]01-23-2023 NoteAcute Coronary Syndrome (ACS): Initial Evaluation and Management: [email or web address] [email or web address]#search=[email or web address] [facility]01-22-2023 NoteAcute Coronary Syndrome (ACS): Initial Evaluation and Management: [email or web address]%[email or web address] [email or web address]#search=[email or web address] [facility]01-22-2023 NoteAcute Coronary Syndrome (ACS): Initial Evaluation and Management: [email or web address]%[email or web address] [email or web address] [facility]01-22-2023 Note* Plan of Care - Cristina Diaz RN - 04/20/2022 11:55 AM EST Problem: Patient Care Overview Goal: Plan of Care Review 04/20/2022 1155 by Cristina Diaz RN Outcome: Ongoing 04/20/2022 1154 by Cristina Diaz RN Outcome: Ongoing Goal: Individualization & Mutuality 04/20/2022 1155 by Cristina Diaz RN Outcome: Ongoing 04/20/2022 1154 by Cristina Diaz RN Outcome: Ongoing Goal: Discharge Needs Assessment 04/20/2022 1155 by Cristina Diaz RN Outcome: Ongoing 04/20/2022 1154 by Cristina Diaz RN Outcome: Ongoing Goal: Interdisciplinary Rounds/Family Conf 04/20/2022 1155 by Cristina Diaz RN Outcome: Ongoing 04/20/2022 1154 by Cristina Diaz RN Outcome: Ongoing Problem: Fall/Trauma/Injury Risk (Adult) Goal: Fall/Trauma/Injury Risk: Absence of Trauma/Injury/Falls Description: Patient will demonstrate the desired outcomes. Outcome: Ongoing [facility]01-22-2023 Note* Plan of Care - Dontrell Garcia, PT - 04/20/2022 9:51 AM EST Problem: PT - Mobility Goal: Ambulation Description: Pt will ambulate 150 feet with appropriate assistive device as needed with supervisionto improve ability to navigate home environment. Outcome: Ongoing Problem: PT - Transfers Goal: Supine <-> Sit Description: Pt will perform bed mobility with flat bed & no rail with independence in order toimprove functional mobility and safety. Outcome: Ongoing Goal: Sit <-> Stand Description: Pt will perform sit to/from stand transfers with supervision with appropriate assistive device as needed in order to improve functional mobility and safety. Outcome: Ongoing [facility]01-22-2023 Note* Plan of Care - Radha Delgadillo, OT - 04/20/2022 9:51 AM EST Problem: OT - Dressing Goal: Lower Body Dressing Description: Pt will complete LE dressing tasks with independence for improved ability to complete self-care activities. Outcome: Ongoing Problem: OT - ADLs Goal: Toileting Description: Pt will complete toileting task including clothing management with independence for improved ability to safely complete self-care activities. Outcome: Ongoing Goal: Bathing Description: Pt will perform full body bathing routine with modified independence while seated for improved ability to complete self-care activities. Outcome: Ongoing Problem: OT - Endurance Goal: Endurance Functional Mobilty Around Home Description: Pt will complete distance needed for common household mobility with modified independence. Outcome: Ongoing Problem: OT - Transfers Goal: Transfers Toilet/Bedside Commode Description: Pt will transfer to/from toilet/BSC with modified independence for improved ability tosafely complete ADLs. Outcome: Ongoing [facility]01-22-2023 NoteAcute Coronary Syndrome (ACS): Initial Evaluation and Management: [email or web address] [email or web address] [facility]01-22-2023 NoteAcute Coronary Syndrome (ACS): Initial Evaluation and Management: [email or web address]/Acute%20Coronary%20Sy [email or web address]#[email or web address] [facility]01-22-2023 Note* Certification - Paul Blue MD - 04/20/2022 4:32 AM EST I certify that this patient requires inpatient services at this time. I anticipate the expected length of stay will include at least two midnights. Inpatient services are due to the following medicalconcerns aortic stenosis, shortness of breath. Plans for post hospitalization care will be discharge to home. Paul Blue MD Internal Medicine Resident, PGY-[address] [facility]01-22-2023 Note* Nursing Notes - Adolph Corea RN - 04/20/2022 3:45 AM EST Patient admitted to [facility] for uncontrolled HTN accompanied by SOB and chest pressure. Patient alert & oriented x4. No complaints of pain/SOB at this time. VSS, NSR/sinus bre on telemetry. Orders reviewed. Labs and ECG obtained. ACS resident notified of patient arrival. Plan to administer antihypertensives at this time, continue TAVR workup, and to adjust medications appropriately to maintain adequate blood pressures once home. Admissions questions asked and completed to the best ability of the patient at this time. On admission to , from outside facility a dual RN initial assessment of skin condition was performed by Adolph Corea RN and Dunia Franz RN. Skin Assessment: Skin within defined limits:Yes Tyler Score: 20 LDA Added:No Adolph Corea RN [facility]01-20-2023 NoteEXAM: CT Angiogram of the chest, abdomen and pelvis for TAVR evaluation, 04/18/2022 14:32 PM CLINICAL INDICATIONS: tavr evaluation; COMPARISON: No prior studies available for comparison. TECHNIQUE: The imaging was performed using a dual-source 128-slice MDCT system. A non-gated CT arterial angiogram with a spiral acquisition extending from shoulders to upper thighs covering the chest, abdomen and pelvis to assess the entire thoracic and abdominal aorta, as well as extremity branches for vascular access. CONTRAST: iohexol (OMNIPAQUE) 350 MG/ML injection 1-171 mL; Route of Administration: Intravenous; Dose: 100 mL. Post-processing consisted of 3D (including MIP) and 4D assessment on an FDA-approved advanced workstation. FINDINGS: Chest Wall: Degenerative changes of thoracic spine Mediastinum: Calcified granulomatous nodes Tosha: Calcified granulomatous nodes Pleural Spaces: Moderate right, and zlpws-[id number]-pqncugti left-sided pleural effusions. Lung Parenchyma: Mild interlobular septal thickening. Bilateral atelectatic changes. Remote granulomatous disease. Mild diffuse bronchial thickening. Pericardium: Normal, without thickening/effusion Pulmonary Arteries: Normal Thoracic Aorta: Mid-Ascending Segment (4 cm above annulus) = Mild atherosclerosis Minimum Diameter - 31 mm / Perpendicular Diameter - 32 mm Proximal Arch = Moderate atherosclerosis, 26 mm Distal Arch = Moderate atherosclerosis, 26 mm Isthmus = Moderate atherosclerosis, 21 mm Mid-Descending Segment = Moderate atherosclerosis, 21 mm Diaphragm Level = Severe atherosclerosis, 18 mm Arch Branches: Common origin of the left common carotid and innominate arteries, normal variant. Right common trunk/Innominate Artery/Subclavian Artery: Mild atherosclerosis Mild stenosis Minimum Diameter - 5.4 mm / Perpendicular Diameter - 5.8 mm Mild tortuosity Left Subclavian Artery: Mild atherosclerosis Mild stenosis Minimum Diameter - 5.0 mm / Perpendicular Diameter - 5.5 mm Mild tortuosity Abdominal Aorta: Suprarenal Segment = Severe atherosclerosis, 22 mm Renal Artery Level = Moderate atherosclerosis, 19 mm Infrarenal Segment = Severe atherosclerosis, 14 mm Minimum Aortic Lumen Caliber: Minimum Diameter - 8.3 mm / Perpendicular Diameter - 11 mm Abdominal Aortic Branches: Atherosclerosis of celiac, SMA, renal, and SKYLER branches without significant stenoses. Right Common Iliac Artery Lumen: Moderate atherosclerosis Mild stenosis Minimum Diameter - 4.8 mm / Perpendicular Diameter - 5.9 mm Mild tortuosity Left Common Iliac Artery Lumen: Mild-moderate atherosclerosis Mild stenosis Minimum Diameter - 8.4 mm / Perpendicular Diameter - 9.3 mm Mild tortuosity Right External Iliac Artery Lumen: No atherosclerosis No stenosis Minimum Diameter - 5.5 mm / Perpendicular Diameter - 6.1 mm Moderate tortuosity Left External Iliac Artery Lumen: Mild atherosclerosis Mild stenosis Minimum Diameter - 6.2 mm / Perpendicular Diameter - 6.3 mm Moderate tortuosity Right Femoral Artery Lumen: Mild atherosclerosis No stenosis Minimum Diameter - 5.3 mm / Perpendicular Diameter - 5.5 mm No tortuosity Left Femoral Artery Lumen: Mild atherosclerosis Mild stenosis Minimum Diameter - 5.4 mm / Perpendicular Diameter - 6.2 mm No tortuosity Liver: Normal Biliary System: Cholelithiasis Pancreas: Normal Spleen: Normal Kidneys: Normal Adrenal Glands: Mild thickening of the left adrenal gland. Bowels: Colonic diverticulosis. Retroperitoneum: Normal Pelvic Structures: Hysterectomy. Abdominal and Pelvic Wall: Degenerative changes of lumbosacral spine and hip joints IMPRESSION: 1. Vascular measurements are noted as above. 2. Moderate right, and grdkd-cq-feaniefm left-sided pleural effusions. 3. Mild interstitial pulmonary edema. 4. Other ancillary findings are noted as above. Please refer to the separate cardiology report regarding the cardiac, aortic valve, aortic root, and coronary findings/measurements. [facility]01-07-2023 History of Present illness Narrative * Kathy Callejas RPh,PharmD - 04/05/2022 3:06 PM EST Images from the original note were not included. [facility]: [facility] the following [facility] prescription(s): Total cost is $4.00. I have reviewed the Discharge Rx Reconciliation Report. Discharge date was confirmed with the [facility] expected discharge date. The discharge prescription(s) will be Tubed to the patient on 04/05/2022. Kathy Callejas RPh,PharmD [facility] [phone] [facility] [phone] [facility] [phone] Bedside delivery [phone] * Murphy Pereyra PT - 04/05/2022 1:32 PM EST Physical Therapy Attempt Note Attempted physical therapy session. The patient mobilized with family recently with new onset of chest pain. PT will follow and see pt when able. ? ? 04/05/22 0800 Time In/Out PT Therapy Completed Attempted Attempted Reason Patient is not medically optimized to tolerate therapy program ? No charges Murphy Pereyra, PT License # [id number] Pager # [phone] * Genoveva Bennett OT - 04/05/2022 9:48 AM EST Occupational Therapy Attempt Note 04/05/2022 OT Therapy Completed: Attempted- Per RN report pt walking with son and reported chest pain. Requested therapy to attempt at a later time. Will continue to follow up. 04/05/22 0948 Time In/Out Time In 0948 Time Out 0948 Total Visit Time 0 minutes Total Treatment Time (skilled, billable minutes) 0 minutes OT Therapy Completed Attempted Initial Evaluation/Screen Completed? 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, PT/OT evaluations pending Assessment and Discharge Plan as of 04/04/2022 5:48 PM Anticipated discharge disposition: Home with Home Health Anticipated Services at Discharge: Halfway, Physical Therapy, Occupational Therapy Readmission Risk Score Risk of Readmission: 3.9 Category Reference: High:16-100 Mod-High:10-16 Mod-Low: 5-10 Low: 0-5 * Edith Yip OT - 04/04/2022 11:01 AM EST Occupational Therapy Attempt Note 04/04/2022 OT Therapy Completed: Attempted Attempted Reason: Patient is not medically optimized to tolerate therapy program, Patient is unavailable due to test/procedure (Pt going for PCI, will re-attempt as able/appropriate) Edith Yip OT Time In: 1101 Time Out: 1101 Total Visit Time: 0 minutes Total Treatment Time (skilled, billable minutes): 0 minutes * Sujatha Matute MD - 04/04/2022 9:18 AM EST ACS DAILY PROGRESS NOTE IDENTIFYING INFORMATION PATIENT: Finesse Prather ADMIT DATE: 03/28/2022 TIME OF EVALUATION: 04/04/2022 9:18 AM HOSPITAL STAY: LOS: 7 days SUBJECTIVE/INTERVAL HISTORY Finesse Prather's events from the last 12-24 hours were reviewed. Patient had chest pain overnight which she rated as 2/10 and much less uncomfortable compared to her pain prior to PCI. Her ECG showed ST depressions in inferior and lateral leads, troponin was 127 and trended to 126 on recheck. Her pain resolved after [address] depressions improved on follow up ECG. Otherwise remained hemodynamically stable. This morning the patient denies chest pain, shortness of breath, or abdominal pain. She feels well and has had a good appetite. BP was high at 190/70 this morning prior to AM meds, she was asymptomatic with this. BP trended down to 168/80. ASSESSMENT AND PLAN Finesse Prather is a 87 y.o. female with history of CAD s/p stents, Aortic Stenosis, Mitral Valve Stenosis, Heart Failure, PAD, Carotid Stenosis s/p TIA s/p endarteerectomy (L 2010, R 2017) , HLD, HTN and T2DM (non-insulin dependent) who presented to the OSH ([facility]) with chest pain and dyspnea. Acute NSTEMI Type I, POA; Multivessel obstructive coronary artery disease Coronary angiography at OSH on 03/21/22 demonstrate 90% stenosis in mLAD, 90% stenosis in D1, 90% stenosis in ostial circumflex, 30% RCA in stent stenosis and 80% stenosis of distal RCA. Transferred here to discuss high risk PCI verse CABG. Has had 1 episode of chest pain after PCI, had ST depressions in inferior/lateral leads and troponin 127-->126, ST depressions improved on recheck. Pain resolved with nitroglycerin. - Plan for PCI of RCA on 04/04/22 - S/P angiogram on 04/01/22 with 2 drug eluting stents to LAD - Not a candidate for CABG - Continue ASA and Plavix - Nitroglycerin PRN for chest pain - Off nitroglycerin drip since 04/01 - Telemetry - OSH cath images available on disc Severe Aortic Stenosis Transferred here to discuss SAVR verse TAVR. Consulted structural cardiology team and [facility] to help with procedural plan. Likely TAVR if feasible based on CT TAVR result, but can be done on outpatient basis. - TTE showed severe aortic stenosis: mean gradient 33 mmHg, valve area cont 0.69 cm2, valve vmax 3.36 m/s - CT TAVR ordered - anticipate prior to discharge, then outpatient TAVR - Cleared by dentistry Acute hypoxic respiratory failure secondary to acute on chronic diastolic heart failure At OSH, she was sating at 78% on RA and placed on NIMV. She was treated with 60 mg IV lasix on 03/20, and 40 mg IV daily until 03/23 when she was transitioned to oral. Currently on RA. - Hold PO lasix 1/5 as patient is euvolemic and on room air Essential Hypertension Home regimen: Imdur 30 mg daily, metoprolol 25 mg BID, Lisinopril 5 mg BID. - Switch metoprolol 25 mg BID to carvedilol 6.25 mg BID - up-titrate as needed - Stop Imdur 1/5 given severe - Hold lisinopril - may hold at discharge as well due to multiple contrast boluses Hyperlipidemia Reportedly had muscle spasm and pain with statin. - Continue zetia - On omega-3 fa at home, but low dose not on inpatient formulary Peripheral Artery Disease - Continue ASA Diabetes Mellitus, Type 2 Non-insulin dependent Well controlled, Hgb A1c 6.8. - Holding home metformin while admitted - SSI/CC, diabetic diet Depression - Continue sertraline Poor dentition Panorex demonstrate multiple missing teeth. Dental fillings in several of the remaining teeth. No appreciable large dental caries or periapical radiolucencies at the remaining dentition. - Dentistry consulted- no extractions recommended at this time FEN/GI: DIET heart healthy Ppx: heparin gtt Dispo: ACS Code Status: DNRCC-ARREST This plan was discussed with the attending ping pong table assembler, [facility]*. Sujatha Matute MD Internal Medicine, PGY-1 MEDICATIONS SCHEDULED: aspirin chewable tablet 81 mg, 81 mg, Daily carveDILOL (COREG) tablet 6.25 mg, 6.25 mg, Q12H Clopidogrel (PLAVIX) tablet 75 mg, 75 mg, Daily ezetimibe (ZETIA) 10 mg, 10 mg, Daily Heparin injection 5,000 Units, 5,000 Units, Q8H Insulin lispro (HUMALOG) injection, , 4x daily w/meals, HS Multivitamin w/ minerals (THERAPEUTIC-M) tablet 1 tablet, 1 tablet, Daily Sertraline (ZOLOFT) tablet 25 mg, 25 mg, Daily FLUIDS/DRIPS: PRNs: Acetaminophen, 325 mg, Q6H PRN Insulin lispro, , PRN And Dextrose, 7.5-25 g, As directed PRN And glucose, 1-2 Tube, As directed PRN magnesium oxide, 800 mg, As directed PRN Or magnesium oxide, 800 mg, As directed PRN Or Magnesium Sulfate IVPB, 4 g, As directed PRN nitroGLYCERIN, 0.4 mg, Q5 MIN PRN Potassium chloride, 40-60 mEq, As directed PRN Or Potassium Bicarb-Citric Acid, 40-60 mEq, As directed PRN Sodium chloride 0.9%, 250 mL, PRN ALLERGIES: She is allergic to statins. OBJECTIVE FINDINGS Vital Signs (24hrs): Temp: [97.4 F (36.3 C)-98.6 F (37 C)] 97.4 F (36.3 C) Pulse (Heart Rate): [56-73] 63 Resp Rate: [9-18] 16 BP: (102-196)/(51-96) 172/74 O2 Sat (%): [91 %-96 %] 95 % Weight: [60.1 kg (132 lb 6.4 oz)] 60.1 kg (132 lb 6.4 oz) Hemodynamic/Invasive Device Data (24 hrs): Pulmonary/Cardiac Hemodynamics Pulse (Heart Rate): 63 Neuro ICP/CPP Monitoring MAP (mmHg): 107 mmHg Neuro ICP/CPP Monitoring 2 MAP (mmHg): 107 mmHg Ventilation/Oxygen Therapy (24hrs): Oxygen Therapy O2 Sat (%): 95 % O2 Device: room air Lines/Drains/Airways/Wounds: Patient Lines/Drains/Airways Status Active Lines, Drains, Airways, & Wound Overview Name Placement date Placement time Site Days Peripheral IV Line - Single Lumen wrist, anterior, left 22 gauge -- -- -- -- Peripheral IV Line - Single Lumen 12/31/22 2000 median vein (underside of arm), right 20 gauge;1 1/4 in length 03/29/221999 -- 5 Wound Sheath Site 04/01/22 1450 Anterior;Right Groin 04/01/22 1450 Groin 2 Fluid Management (24hrs): -Intake/Output last 3 shifts: I/O last 3 completed shifts: In: 1495 [P.O.:1495] Out: 500 [Urine:500] Physical Examination: General: No acute distress. Awake and conversant. Eyes: Normal conjunctiva, anicteric. Round symmetric pupils. ENT: Hard of hearing. No nasal discharge. Neck: Neck is supple. No masses or thyromegaly. CV: RRR, 4/6 systolic murmur heard throughout, radiates to the carotids. No lower extremity edema. Pulm: CTAB. Respirations are non-labored. No wheezes, rales or rhonchi. Abdomen: Soft, NT, ND. No rebound or guarding. MSK: Able to move all 4 limbs. No gross deficits noted. Skin: Warm. No rashes or ulcers Psych: Alert and oriented. Cooperative, Appropriate mood and affect, Normal judgment. Neuro: Sensation and CN II-XII grossly normal. DIAGNOSTIC RESULTS/PROCEDURES Labs-ABGs Labs-CBC Lab Results Component Value Date WBC 7.71 04/04/2022 HGB 11.6 04/04/2022 HCT 34.3 (L) 04/04/2022 PLATELET 228 04/04/2022 MCV 86.0 04/04/2022 Labs-Chem 7(PMC) Lab Results Component Value Date SODIUM 135 04/04/2022 POTASSIUM 4.0 04/04/2022 CHLORIDE 103 04/04/2022 CO2 24 04/04/2022 BUN 30 (H) 04/04/2022 CREATSERUM 0.69 04/04/2022 GLUCOSE 126 (H) 04/04/2022 Labs-Coags Lab Results Component Value Date PT 13.7 04/01/2022 PTT 52.8 (H) 04/01/2022 INR 1.0 04/01/2022 Additional Labs Lab Results Component Value Date HSTROP 127 (H) 04/04/2022 HSTROP 67 (H) 03/29/2022 HSTROP 73 (H) 03/29/2022 Lab Results Component Value Date CHOLESTEROL 238 (H) 04/01/2022 TRIG 143 04/01/2022 HDL 40 04/01/2022 Imaging/Radiological Studies: ECHOCARDIOGRAM Final Result XR PANOREX (TEETH) Final Result FINDINGS/IMPRESSION: Nasal septum is midline. No air-fluid levels in the maxillary sinuses. No acute fracture or malalignment of the mandible. Multiple missing teeth. Dental fillings in several of the remaining teeth. No appreciable large dental caries or periapical radiolucencies at the remaining dentition. DUPLEX CAROTID BILATERAL Final Result Consults/Procedures: IP CONSULT TO SURGERY - CARDIAC IP CONSULT TO STRUCTURAL HEART IP CONSULT TO DENTISTRY IP CONSULT TO CARDIAC REHAB IP CONSULT TO PHYSICAL THERAPY IP CONSULT TO OCCUPATIONAL THERAPY Patient seen and evaluated independently and with the resident/fellow. I agree with the resident s/fellow s history, physical examination, and medical decisions as outlined with appropriate editing of entire note above. I discussed my findings and the therapeutic plan with the resident/fellow. [facility] MD repairer welding systems and equipment Department of Medicine Division of Cardiovascular Medicine [facility] * Murphy Pereyra PT - 04/04/2022 8:00 AM EST Physical Therapy Attempt Note Attempted physical therapy session. The patient to PCI and not appropriate for PT at this time. PT will follow and see pt when able. ? ? 04/04/22 0801 Time In/Out PT Therapy Completed Attempted Attempted Reason Patient is not medically optimized to tolerate therapy program Initial Evaluation/Screen Completed? attempted ? No charges Murphy Pereyra PT License # [id number] Pager # [phone] * Rafi Ferguson, Pharm Student - 04/03/2022 3:06 PM EST Department of Pharmacy Admission Medication Reconciliation Note Patient: Finesse Prather Room/Bed: 5040/A The patient's allergies have been reviewed with Patient, and I have reviewed the patient's home medication list with the following sources [facility] records, Contacted [facility] pharmacy ( ), Patient Recall with prompting and OARRs. I have also reviewed this list with the pharmacist. I am recommending the following changes to the home medication list. These recommendations are considered preliminary until attestation of this note by a pharmacist. Added to Home Medications: B Complex Vitamins Multiple Vitamins-Minerals (Multivitamin & Mineral) Liquid [place]-3 Fatty Acids Cap [place] 4-Thbcbr-Qyjdqklach PO Liquid Deleted from Home Medications: Isosorbide Mononitrate SR 30 mg Multivitamins w/ minerals Tab [place] 5-Pwrizh-Dwhvaatbcr ([facility]) Cap Edits to Home Medications: Lisinopril 5 mg: Updated directions to Take 5 mg by mouth in the morning and 7.5 mg in the evening from 5 mg twice daily Metformin 500 mg: Patient Taking Differently: patient reports sometimes taking a third dose (500 mg) if she eats something sweet. Patient reports taking a third dose about one to two times a week. Metoprolol 25 mg Regular Release: Updated directions to 12.5 mg by mouth 2 times daily from 25 mg 2times daily. Other Comments: Nitroglycerin 0.4 mg tab SL: Last dose was about 2 weeks ago. B Complex Vitamins: Medication is in liquid formulation. Patient cannot recall dose. Please feel free to contact me with any further questions. Name: Rafi Ferguson Pharm Student Preceptor: Cruz Huber Phone #: [phone] Date/Time: 04/03/2022 3:07 PM Time Spent: 90 minutes Associated attestation - Cruz Huber RPH - 04/03/2022 3:47 PM EST Department of Pharmacy Admission Medication Reconciliation Note Patient: Finesse Prather Room/Bed: 5040/A I have reviewed the home medication list with the Student. All changes to the home medication list have been updated in [facility]. Updated PROGRAM MANAGER ENVIRONMENTAL PLANNING Med List: Prior to Admission Medications Prescriptions B Complex Vitamins (B COMPLEX 1 PO) Sig: Take by mouth. Clopidogrel 75 MG tablet Sig: Take 75 mg by mouth daily. Lisinopril 5 MG tablet Sig: Take 5 mg by mouth in the morning and 7.5 mg in the evening. Metoprolol 25 MG tab regular release Sig: Take 12.5 mg by mouth 2 times daily. Multiple Vitamins-Minerals (Multivitamin & Mineral) Liquid Sig: Take 1 fluid ounce by mouth daily. OMEGA 9-[id number] PO Sig: Take 0.5 fluid ounces by mouth 2 times daily. [place]-3 Fatty Acids (OMEGA-3 FISH OIL PO) Sig: Take 2 capsules by mouth daily. Sertraline 25 MG tablet Sig: Take 25 mg by mouth daily. aspirin 81 MG Chew Tab chewable tablet Sig: Chew 81 mg daily. ezetimibe 10 MG tablet Sig: Take 10 mg by mouth daily. metFORMIN 500 MG tablet Sig: Take 500 mg by mouth 2 times daily with meals. nitroGLYCERIN 0.4 MG tablet SL Sig: Place 0.4 mg under tongue every 5 minutes as needed for Chest pain. max = 3 doses. If CP persists after 1st dose, call 911 Facility-Administered Medications: None Please feel free to contact me with any further questions. Name: Cruz Huber [facility] Phone #: [phone] Date/Time: 04/03/2022 3:46 PM * NILO Calvillo - 04/03/2022 1:30 PM EST BRIEF NUTRITION NOTE: Current Diet Orders Procedures DIET HEART HEALTHY - 4 GM SODIUM Carb Controlled Standing Status: Standing Number of Occurrences: 1 Order Specific Question: Additional Modifier: Answer: Carb Controlled DIET NPO with meds Standing Status: Standing Number of Occurrences: 1 Order Specific Question: NPO Meds: Answer: with meds Pt with no significant nutrition changes over the past week. Tolerating diet with adequate po intake. No notable wt changes. operations tech will continue to follow/assist prn. Pt is on the STAND skin bundle. Encourage 2-4oz. of EPHP oral supplement with med pass to optimize nutrition to help promote good skin integrity/prevent skin breakdown/promote wound healing Deshawn Issa DTR Pager: [phone] * Sujatha Matute MD - 04/03/2022 7:11 AM EST ACS DAILY PROGRESS NOTE IDENTIFYING INFORMATION PATIENT: Finesse Prather ADMIT DATE: 03/28/2022 TIME OF EVALUATION: 04/03/2022 7:11 AM HOSPITAL STAY: LOS: 6 days SUBJECTIVE/INTERVAL HISTORY Finesse Prather's events from the last 12-24 hours were reviewed. NAEO. Patient vitally stable. Reports that she feels well this morning. She felt a little bit shortof breath overnight but she attributes this to being a bit congested. No chest pain, no abdominal pain. Appetite has been good. ASSESSMENT AND PLAN Finesse Prather is a 87 y.o. female with history of CAD s/p stents, Aortic Stenosis, Mitral Valve Stenosis, Heart Failure, PAD, Carotid Stenosis s/p TIA s/p endarteerectomy (L 2010, R 2017) , HLD, HTN and T2DM (non-insulin dependent) who presented to the OSH ([facility]) with chest pain and dyspnea. Acute NSTEMI Type I, POA; Multivessel obstructive coronary artery disease Coronary angiography at OSH on 03/21/22 demonstrate 90% stenosis in mLAD, 90% stenosis in D1, 90% stenosis in ostial circumflex, 30% RCA in stent stenosis and 80% stenosis of distal RCA. Transferred here to discuss high risk PCI verse CABG. - Plan for PCI of RCA on 04/04/22 - S/P angiogram on 04/01/22 with 2 drug eluting stents to LAD - Not a candidate for CABG - Continue ASA and Plavix - Off nitroglycerin drip since 04/01 - chest pain resolved - Telemetry - OSH cath images available on disc Severe Aortic Stenosis Transferred here to discuss SAVR verse TAVR. Consulted structural cardiology team and [facility] to help with procedural plan. Likely TAVR if feasible based on CT TAVR result, but can be done on outpatient basis. - TTE showed severe aortic stenosis: mean gradient 33 mmHg, valve area cont 0.69 cm2, valve vmax 3.36 m/s - CT TAVR ordered - anticipate prior to discharge, then outpatient TAVR - Cleared by dentistry Acute hypoxic respiratory failure secondary to acute on chronic diastolic heart failure At OSH, she was sating at 78% on RA and placed on NIMV. She was treated with 60 mg IV lasix on 03/20, and 40 mg IV daily until 03/23 when she was transitioned to oral. Currently on RA. - Hold PO lasix / as patient is euvolemic and on room air Essential Hypertension Home regimen: Imdur 30 mg daily, metoprolol 25 mg BID, Lisinopril 5 mg BID. - Switch metoprolol 25 mg BID to carvedilol 6.25 mg BID - up-titrate as needed - Stop Imdur / given severe - Hold lisinopril - may hold at discharge as well due to multiple contrast boluses Hyperlipidemia Reportedly had muscle spasm and pain with statin. - Continue zetia - On omega-3 fa at home, but low dose not on inpatient formulary Peripheral Artery Disease - Continue ASA Diabetes Mellitus, Type 2 Non-insulin dependent Well controlled, Hgb A1c 6.8. - Holding home metformin while admitted - SSI/CC, diabetic diet Depression - Continue sertraline Poor dentition Panorex demonstrate multiple missing teeth. Dental fillings in several of the remaining teeth. No appreciable large dental caries or periapical radiolucencies at the remaining dentition. - Dentistry consulted- no extractions recommended at this time FEN/GI: DIET heart healthy Ppx: heparin gtt Dispo: ACS Code Status: DNRCC-ARREST This plan was discussed with the attending ping pong table assembler, [facility]*. Sujatha Matute MD Internal Medicine, PGY-1 MEDICATIONS SCHEDULED: aspirin chewable tablet 81 mg, 81 mg, Daily Clopidogrel (PLAVIX) tablet 75 mg, 75 mg, Daily ezetimibe (ZETIA) 10 mg, 10 mg, Daily furOSEmide (LASIX) tablet 20 mg, 20 mg, Daily Heparin injection 5,000 Units, 5,000 Units, Q8H Insulin lispro (HUMALOG) injection, , 4x daily w/meals, HS isosorbide mononitrate (IMDUR) tablet XL 30 mg, 30 mg, Daily Metoprolol (LOPRESSOR) tablet 25 mg, 25 mg, Q12H Multivitamin w/ minerals (THERAPEUTIC-M) tablet 1 tablet, 1 tablet, Daily Sertraline (ZOLOFT) tablet 25 mg, 25 mg, Daily FLUIDS/DRIPS: PRNs: Acetaminophen, 325 mg, Q6H PRN Insulin lispro, , PRN And Dextrose, 7.5-25 g, As directed PRN And glucose, 1-2 Tube, As directed PRN hydrALAZINE, 5 mg, Q6H PRN magnesium oxide, 800 mg, As directed PRN Or magnesium oxide, 800 mg, As directed PRN Or Magnesium Sulfate IVPB, 4 g, As directed PRN nitroGLYCERIN, 0.4 mg, Q5 MIN PRN Potassium chloride, 40-60 mEq, As directed PRN Or Potassium Bicarb-Citric Acid, 40-60 mEq, As directed PRN Sodium chloride 0.9%, 250 mL, PRN ALLERGIES: She is allergic to statins. OBJECTIVE FINDINGS Vital Signs (24hrs): Temp: [97.9 F (36.6 C)-98.9 F (37.2 C)] 98.4 F (36.9 C) Pulse (Heart Rate): [62-94] 62 Resp Rate: [18-22] 18 BP: (119-171)/(56-74) 147/66 O2 Sat (%): [92 %-98 %] 94 % Weight: [60.7 kg (133 lb 12.8 oz)] 60.7 kg (133 lb 12.8 oz) Hemodynamic/Invasive Device Data (24 hrs): Pulmonary/Cardiac Hemodynamics Pulse (Heart Rate): 62 Neuro ICP/CPP Monitoring MAP (mmHg): 95 mmHg Neuro ICP/CPP Monitoring 2 MAP (mmHg): 95 mmHg Ventilation/Oxygen Therapy (24hrs): Oxygen Therapy O2 Sat (%): 94 % O2 Device: room air Lines/Drains/Airways/Wounds: Patient Lines/Drains/Airways Status Active Lines, Drains, Airways, & Wound Overview Name Placement date Placement time Site Days Peripheral IV Line - Single Lumen wrist, anterior, left 22 gauge -- -- -- -- Peripheral IV Line - Single Lumen 03/29/221999 median vein (underside of arm), right 20 gauge;1 1/4 in length 03/29/221999 -- 4 External Catheter -- -- -- -- Wound Sheath Site 04/01/22 1450 Anterior;Right Groin 04/01/22 1450 Groin 1 Fluid Management (24hrs): -Intake/Output last 3 shifts: I/O last 3 completed shifts: In: 777 [P.O.:777] Out: 875 [Urine:875] Physical Examination: General: No acute distress. Awake and conversant. Eyes: Normal conjunctiva, anicteric. Round symmetric pupils. ENT: Hard of hearing. No nasal discharge. Neck: Neck is supple. No masses or thyromegaly. CV: RRR, 4/6 systolic murmur heard throughout, radiates to the carotids. No lower extremity edema. Pulm: CTAB. Respirations are non-labored. No wheezes, rales or rhonchi. Abdomen: Soft, NT, ND. No rebound or guarding. MSK: Able to move all 4 limbs. No gross deficits noted. Skin: Warm. No rashes or ulcers Psych: Alert and oriented. Cooperative, Appropriate mood and affect, Normal judgment. Neuro: Sensation and CN II-XII grossly normal. DIAGNOSTIC RESULTS/PROCEDURES Labs-ABGs Labs-CBC Lab Results Component Value Date WBC 6.95 04/03/2022 HGB 12.0 04/03/2022 HCT 35.6 04/03/2022 PLATELET 231 04/03/2022 MCV 85.0 04/03/2022 Labs-Chem 7(PMC) Lab Results Component Value Date SODIUM 133 (L) 04/03/2022 POTASSIUM 4.3 04/03/2022 CHLORIDE 102 04/03/2022 CO2 23 04/03/2022 BUN 24 04/03/2022 CREATSERUM 0.58 04/03/2022 GLUCOSE 162 (H) 04/02/2022 Labs-Coags Lab Results Component Value Date PT 13.7 04/01/2022 PTT 52.8 (H) 04/01/2022 INR 1.0 04/01/2022 Additional Labs Lab Results Component Value Date HSTROP 67 (H) 03/29/2022 HSTROP 73 (H) 03/29/2022 HSTROP 101 (H) 03/29/2022 Lab Results Component Value Date CHOLESTEROL 238 (H) 04/01/2022 TRIG 143 04/01/2022 HDL 40 04/01/2022 Imaging/Radiological Studies: ECHOCARDIOGRAM Final Result XR PANOREX (TEETH) Final Result FINDINGS/IMPRESSION: Nasal septum is midline. No air-fluid levels in the maxillary sinuses. No acute fracture or malalignment of the mandible. Multiple missing teeth. Dental fillings in several of the remaining teeth. No appreciable large dental caries or periapical radiolucencies at the remaining dentition. [facility] DUPLEX CAROTID BILATERAL Final Result CT ANGIO TAVR EVALUATION (Results Pending) Consults/Procedures: IP CONSULT TO SURGERY - CARDIAC IP CONSULT TO STRUCTURAL HEART IP CONSULT TO DENTISTRY IP CONSULT TO CARDIAC REHAB Patient seen and evaluated independently and with the resident/fellow. I agree with the resident s/fellow s history, physical examination, and medical decisions as outlined with appropriate editing of entire note above. I discussed my findings and the therapeutic plan with the resident/fellow. Chadwick Heart MD repairer welding systems and equipment Department of Medicine Division of Cardiovascular Medicine [facility] * Duncan Jared - 04/02/2022 9:45 AM EST Inpatient Cardiac Rehab Consultation AND Activity Session Completed. RN approved, as tolerated, andpatient agreeable to visit. Patient reports feeling OK without complaints. Patient noted she has spent much of the last 2 weeks in bed without having gotten up much, some weakness noted. Activity Session Vitals: 04/02/22 0951 04/02/22 1005 Vital Signs Pulse (Heart Rate) 74 (rest) 94 (post amb) Heart Rate Source Monitor Monitor Resp Rate 20 -- BP 119/56 136/64 MAP (mmHg) 80 mmHg 88 mmHg BP Method Automatic Automatic BP Location Left arm Left arm BP Position Lying Sitting O2 Sat (%) 92 % 95 % Activity/Level of Assistance Amb in stark / Ax1, gait belt, 4ww Ambulation Distance (feet) 140 Symptoms Noted During/After Activity Fatigue Positioning Supine HOB, call light within reach RN notified/aware. Encouraged continued ambulation and discussed appropriate activity progression. Patient participation in outpatient cardiac rehab was discussed. Patient is interested in participating in rehab at their local facility: [facility]. AMB REFERRAL TO CARDIAC REHAB HAS BEEN PENDED. PLEASE REVIEW AND SIGN ORDER PRIOR TO DISCHARGE SO THE AMB REFERRAL CAN BE SENT TO APPROPRIATE FACILITY BY THE INPATIENT REHAB TEAM. Discharge education provided to the patient. Printed materials provided/reviewed: Living with CAD book, and Care after Cardiac Cath (leg) handout. Patient s questions/concerns were addressed and topics below were discussed. 1. Pathophysiology of CAD/ID 2. Left Heart Cath 3. Target Lipid Profile 4. Heart Healthy Dietary Guidelines 5. Cardiac Medications 6. Signs/Symptoms to Monitor/Report 7. Risk Factor Modification/Reduction 8. Activity Guidelines/Recommendations We will continue to follow up with patient as needed until discharge for education review and activity progression. VANESSA Kiser ([phone]) IP Cardiopulmonary & Vascular Rehab * Sujatha Matute MD - 04/02/2022 9:22 AM EST ACS DAILY PROGRESS NOTE IDENTIFYING INFORMATION PATIENT: Finesse Prather ADMIT DATE: 03/28/2022 TIME OF EVALUATION: 04/02/2022 9:22 AM HOSPITAL STAY: LOS: 5 days SUBJECTIVE/INTERVAL HISTORY Finesse Prather's events from the last 12-24 hours were reviewed. NAEO. Patient vitally stable. Had some bleeding from the femoral access site but this is well controlled today and she denies any pain around the area. Feels much better overall. Nitroglycerin drip was stopped yesterday and she denies any recurrent chest pain or shortness of breath. No abdominal pain or nausea. ASSESSMENT AND PLAN Finesse Prather is a 87 y.o. female with history of CAD s/p stents, Aortic Stenosis, Mitral Valve Stenosis, Heart Failure, PAD, Carotid Stenosis s/p TIA s/p endarteerectomy (L 2010, R 2017) , HLD, HTN and T2DM (non-insulin dependent) who presented to the OSH ([facility]) with chest pain and dyspnea. Acute NSTEMI Type I, POA; Multivessel obstructive coronary artery disease Coronary angiography at OSH on 03/21/22 demonstrate 90% stenosis in mLAD, 90% stenosis in D1, 90% stenosis in ostial circumflex, 30% RCA in stent stenosis and 80% stenosis of distal RCA. Transferred here to discuss high risk PCI verse CABG. Pt preferred high risk PCI. - S/P angiogram on 04/01/22 with 2 drug eluting stents to LAD - Not a candidate for CABG - Continue ASA and Plavix - Off nitroglycerin drip since 04/01 - chest pain improved - Telemetry - OSH cath images available on disc. Severe Aortic Stenosis Transferred here to discuss SAVR verse TAVR. Consulted structural cardiology team and [facility] to help with procedural plan. Likely TAVR if feasible based on CT TAVR result. - TTE ordered; trying to get images from [facility] - Cleared by dentistry - CT TAVR ordered - anticipate on 04/04/22 Acute hypoxic respiratory failure secondary to acute on chronic diastolic heart failure At OSH, she was sating at 78% on RA and placed on NIMV. She was treated with 60 mg IV lasix on 03/20, and 40 mg IV daily until 03/23 when she was transitioned to oral. Currently on RA. - Continue PO lasix 20 mg Essential Hypertension: BP intermittently high here Home regimen: Imdur 30 mg daily, metoprolol 25 mg BID, Lisinopril 5 mg BID. - Continue metoprolol - Restart home imdur 30 mg (held d/t hypotension on nitroglycerin drip) - Holding lisinopril Hyperlipidemia Reportedly had muscle spasm and pain with statin. - Continue zetia - on omega-3 fa at home, but low dose not on inpatient formulary. Peripheral Artery Disease - Continue ASA Diabetes Mellitus, Type 2 Non-insulin dependent: holding home metformin while admitted. - SSI/CC, diabetic diet. Depression - Continue sertraline Poor dentition Panorex demonstrate multiple missing teeth. Dental fillings in several of the remaining teeth. No appreciable large dental caries or periapical radiolucencies at the remaining dentition. - Dentistry consulted- no extractions recommended at this time FEN/GI: DIET NPO with meds Ppx: heparin gtt Dispo: ACS Code Status: DNRCC-ARREST This plan was discussed with the attending ping pong table assembler, [facility]*. Sujatha Matute MD Internal Medicine, PGY-1 MEDICATIONS SCHEDULED: aspirin chewable tablet 81 mg, 81 mg, Daily Clopidogrel (PLAVIX) tablet 75 mg, 75 mg, Daily ezetimibe (ZETIA) 10 mg, 10 mg, Daily furOSEmide (LASIX) tablet 20 mg, 20 mg, Daily Insulin lispro (HUMALOG) injection, , 4x daily w/meals, HS Metoprolol (LOPRESSOR) tablet 25 mg, 25 mg, Q12H Multivitamin w/ minerals (THERAPEUTIC-M) tablet 1 tablet, 1 tablet, Daily Sertraline (ZOLOFT) tablet 25 mg, 25 mg, Daily FLUIDS/DRIPS: PRNs: Acetaminophen, 325 mg, Q6H PRN Insulin lispro, , PRN And Dextrose, 7.5-25 g, As directed PRN And glucose, 1-2 Tube, As directed PRN hydrALAZINE, 5 mg, Q6H PRN magnesium oxide, 800 mg, As directed PRN Or magnesium oxide, 800 mg, As directed PRN Or Magnesium Sulfate IVPB, 4 g, As directed PRN nitroGLYCERIN, 0.4 mg, Q5 MIN PRN Potassium chloride, 40-60 mEq, As directed PRN Or Potassium Bicarb-Citric Acid, 40-60 mEq, As directed PRN Sodium chloride 0.9%, 250 mL, PRN ALLERGIES: She is allergic to statins. OBJECTIVE FINDINGS Vital Signs (24hrs): Temp: [97.7 F (36.5 C)-99.1 F (37.3 C)] 97.9 F (36.6 C) Pulse (Heart Rate): [53-96] 67 Resp Rate: [10-24] 18 BP: (88-201)/(44-84) 147/65 O2 Sat (%): [91 %-98 %] 93 % Weight: [57.6 kg (127 lb)-59.4 kg (131 lb)] 57.6 kg (127 lb) Hemodynamic/Invasive Device Data (24 hrs): Pulmonary/Cardiac Hemodynamics Pulse (Heart Rate): 67 BSA (Calculated - sq m): 1.54 m2 Neuro ICP/CPP Monitoring MAP (mmHg): 94 mmHg Neuro ICP/CPP Monitoring 2 MAP (mmHg): 94 mmHg Ventilation/Oxygen Therapy (24hrs): Oxygen Therapy O2 Sat (%): 93 % O2 Device: room air Flow (L/min): 2 Oxygen Delivery/Consumption Hemodynamics BSA (Calculated - sq m): 1.54 m2 Lines/Drains/Airways/Wounds: Patient Lines/Drains/Airways Status Active Lines, Drains, Airways, & Wound Overview Name Placement date Placement time Site Days Peripheral IV Line - Single Lumen wrist, anterior, left 22 gauge -- -- -- -- Peripheral IV Line - Single Lumen 03/29/221999 median vein (underside of arm), right 20 gauge;1 1/4 in length 03/29/221999 -- 3 External Catheter -- -- -- -- Wound Sheath Site 04/01/22 1450 Anterior;Right Groin 04/01/22 1450 Groin less than 1 Fluid Management (24hrs): -Intake/Output last 3 shifts: I/O last 3 completed shifts: In: 743.4 [P.O.:600; I.V.:143.4] Out: 1200 [Urine:1200] Physical Examination: General: No acute distress. Awake and conversant. Eyes: Normal conjunctiva, anicteric. Round symmetric pupils. ENT: Hearing grossly intact. No nasal discharge. Neck: Neck is supple. No masses or thyromegaly. CV: RRR, 4/6 systolic murmur heard throughout. No lower extremity edema. Pulm: CTAB. Respirations are non-labored. No wheezes, rales or rhonchi. Abdomen: Soft, NT, ND. No rebound or guarding. MSK: Able to move all 4 limbs. No gross deficits noted. Skin: Warm. No rashes or ulcers Psych: Alert and oriented. Cooperative, Appropriate mood and affect, Normal judgment. Neuro: Sensation and CN II-XII grossly normal. DIAGNOSTIC RESULTS/PROCEDURES Labs-ABGs Labs-CBC Lab Results Component Value Date WBC 7.44 04/02/2022 HGB 12.8 04/02/2022 HCT 38.3 04/02/2022 PLATELET 247 04/02/2022 MCV 85.7 04/02/2022 Labs-Chem 7(PMC) Lab Results Component Value Date SODIUM 136 04/02/2022 POTASSIUM 4.1 04/02/2022 CHLORIDE 102 04/02/2022 CO2 26 04/02/2022 BUN 20 04/02/2022 CREATSERUM 0.59 04/02/2022 GLUCOSE 122 (H) 04/02/2022 Labs-Coags Lab Results Component Value Date PT 13.7 04/01/2022 PTT 52.8 (H) 04/01/2022 INR 1.0 04/01/2022 Additional Labs Lab Results Component Value Date HSTROP 67 (H) 03/29/2022 HSTROP 73 (H) 03/29/2022 HSTROP 101 (H) 03/29/2022 Lab Results Component Value Date CHOLESTEROL 238 (H) 04/01/2022 TRIG 143 04/01/2022 HDL 40 04/01/2022 Imaging/Radiological Studies: ECHOCARDIOGRAM Final Result XR PANOREX (TEETH) Final Result FINDINGS/IMPRESSION: Nasal septum is midline. No air-fluid levels in the maxillary sinuses. No acute fracture or malalignment of the mandible. Multiple missing teeth. Dental fillings in several of the remaining teeth. No appreciable large dental caries or periapical radiolucencies at the remaining dentition. DUPLEX CAROTID BILATERAL Final Result CT ANGIO TAVR EVALUATION (Results Pending) Consults/Procedures: IP CONSULT TO SURGERY - CARDIAC IP CONSULT TO STRUCTURAL HEART IP CONSULT TO DENTISTRY IP CONSULT TO CARDIAC REHAB Patient seen and evaluated independently and with the resident/fellow. I agree with the resident s/fellow s history, physical examination, and medical decisions as outlined with appropriate editing of entire note above. I discussed my findings and the therapeutic plan with the resident/fellow. [facility]wick Heart MD repairer welding systems and equipment Department of Medicine Division of Cardiovascular Medicine [facility] * Ana Mata RN - 04/01/2022 5:30 PM EST Discharge Planning Patient Assessment Admission Assessment Patient Assessment Completed: Initial Anticipated discharge disposition: Home Reason for Admission: triple vessel disease, aortic stenosis Is the patient able to participate in the assessment?: Yes Information source: Patient, Child(sincere), Review of Medical Record Information Source Name/Contact: asad Prather [phone] Has the patient been admitted to any hospital in the last 30 days?: Transferred From Outside Hospital Advanced Care Planning Has the patient completed Advance Directives?: Completed, Not Available in Medical Record Copy of Advance Directives was requested?: Yes Advance Directives Requested From: patient, son Legal Next of Kin Does the patient have a Guardian?: No Spouse: Yes Name and Contact information: Earl Prather [phone] Adult Child(sincere), List All Adult Children: Yes Name and Contact information: Stas Prather [phone] Would you like to add additional adult children?: Yes Name and Contact information: Joselo Prather [phone] Outpatient Providers Does patient have a primary care physician? : Yes When was the patient's last PCP visit?: (December 2021) Does the patient follow any specialists?: Yes Patient Care Team: Murphy Burton MD as PCP - General (Family Medicine) Cardiology: Dr. Narendra Almonte [phone] Environment/Caregivers Is the patient from a facility or jail?: No Patient lives with: Spouse or Partner Living Environment: House How many steps does the patient have to navigate to enter or inside the home? : 0 Does the patient have a first floor set-up with bed and bathroom?: Yes Patient-identified caregiver/support network: Family Who does the patient identify as a teachable caregiver(s)?: Child(sincere) - Independent Services Does the patient use a home health or hospice agency?: No Current with dialysis?: No Does patient use DME? : none (her uses walker and bedside commode) Does the patient use oxygen?: No Initial ADLs Prior to Arrival What is the patient's baseline physical functioning prior to this acute illness?: independent What is the patient's baseline cognitive functioning prior to this acute illness?: independent Medication Management Does the patient have prescription insurance coverage? : Yes (with use of [employer]) Is the patient on Anticoagulation? : No [facility] [address] [place] [phone] [id number] [address] Initial Discharge Planning Anticipated discharge disposition: Home Transportation Available for Discharge: Family or Friend (one of patient's children will drive her home) Patient Assessment Completed: Initial Risk of Readmission: 4 Category Reference: High:16-100 Mod-High:10-16 Mod-Low: 5-10 Low: 0-5 Expected Discharge Date: TBD Discharge Planning Summary On 04-01-21 had: Percutaneous Coronary Intervention Drug eluting stent, left anterior descending, Number of Stents 2 Case Management Plan Met with patient and her son Stas for initial assessment. Patient is independent at baseline and lives with her who receives home care services and uses DME, patient's daughter lives across the street and helps her parents. Case management to continue to monitor for discharge needs. * Nathaly Keller MD - 04/01/2022 4:00 PM EST PATIENT: Finesse Prather ADMIT DATE: 03/28/2022 TIME OF EVALUATION: 04/01/2022 12:56 PM HOSPITAL STAY: LOS: 4 days SUBJECTIVE/INTERVAL HISTORY Finesse Prather's events from the last 12-24 hours were reviewed. Initially transferred [facility] to [facility] to discuss high risk PCI versus CABG +/- TAVR. Since transfer, she has been on DAPT and heparin gtt. She was started on a nitroglycerin gtt 03/30 for recurrent chest discomfort, but has been having recurrent and worsening chest pain despite this. Decision made to pursue PCI today and transferring to ACS service due to ongoing chest pain. ASSESSMENT AND PLAN Finesse Prather is a 87 y.o. female with history of CAD s/p stents, Aortic Stenosis, Mitral Valve Stenosis, Heart Failure, PAD, Carotid Stenosis s/p TIA s/p endarteerectomy (L 2010, R 2017) , HLD, HTN and T2DM (non-insulin dependent) who presented to the OSH ([facility]) with chest pain and dyspnea. Acute NSTEMI Type I, POA; Multivessel obstructive coronary artery disease Coronary angiography at OSH on 03/21/22 demonstrate 90% stenosis in mLAD, 90% stenosis in D1, 90% stenosis in ostial circumflex, 30% RCA in stent stenosis and 80% stenosis of distal RCA. Transferred here to discuss high risk PCI verse CABG. Pt preferred high risk PCI. - LHC on 04/01 - Continue ASA and Plavix - Continue Nitrates, BB. Started on nitroglycerin drip 03/30 for recurrent chest discomfort. Closely monitoring blood pressure and symptoms. - Telemetry - OSH cath images available on disc. Moderate to Severe Aortic Stenosis Transferred here to discuss SAVR verse TAVR. Pt prefers TAVR initially. Consulted structural cardiology team and OHS to help with procedural plan. Likely TAVR, but final decision pending. Carotid doppler with 1-49% stenosis. -TTE ordered; trying to get images from [facility] - Cleared by dentistry - CT TAVR ordered- delayed due to cath Acute hypoxic respiratory failure secondary to acute on chronic diastolic heart failure At OSH, she was sating at 78% on RA and placed on NIMV. She was treated with 60 mg IV lasix on 03/20, and 40 mg IV daily until 03/23 when she was transitioned to oral. Currently on RA. -Continue PO lasix 20 mg Essential Hypertension: BP intermittently high here Home regimen: Imdur 30 mg daily, metoprolol 25 mg BID, Lisinopril 5 mg BID. On nitroglycerin drip. -Continue metoprolol - Holding imdur and lisinopril Hyperlipidemia -Continue zetia -Reportedly had muscle spasm and pain with statin - on omega-3 fa at home, but low dose not on inpatient formulary. Peripheral Artery Disease -Continue ASA Diabetes Mellitus, Type 2 Non-insulin dependent: holding home metformin while admitted. -SSI/CC, diabetic diet. Depression -Continue sertraline Poor dentition Panorex demonstrate multiple missing teeth. Dental fillings in several of the remaining teeth. No appreciable large dental caries or periapical radiolucencies at the remaining dentition. - Dentistry consulted- no extractions recommended at this time FEN/GI: DIET NPO with meds Ppx: heparin gtt Dispo: ACS Code Status: Full Code Plan was discussed on rounds with the team. Nathaly Keller MD MEDICATIONS SCHEDULED: aspirin chewable tablet 81 mg, 81 mg, Daily Clopidogrel (PLAVIX) tablet 75 mg, 75 mg, Daily ezetimibe (ZETIA) 10 mg, 10 mg, Daily furOSEmide (LASIX) tablet 20 mg, 20 mg, Daily Insulin lispro (HUMALOG) injection, , 4x daily w/meals, HS Metoprolol (LOPRESSOR) tablet 25 mg, 25 mg, Q12H Multivitamin w/ minerals (THERAPEUTIC-M) tablet 1 tablet, 1 tablet, Daily Sertraline (ZOLOFT) tablet 25 mg, 25 mg, Daily FLUIDS/DRIPS: heparin infusion Stopped (04/01/221247) nitroGLYCERIN infusion Stopped (04/01/221247) PRNs: Clopidogrel, , PRN Insulin lispro, , PRN And Dextrose, 7.5-25 g, As directed PRN And glucose, 1-2 Tube, As directed PRN hydrALAZINE, 5 mg, Q6H PRN magnesium oxide, 800 mg, As directed PRN Or magnesium oxide, 800 mg, As directed PRN Or Magnesium Sulfate IVPB, 4 g, As directed PRN nitroGLYCERIN, 0.4 mg, Q5 MIN PRN Potassium chloride, 40-60 mEq, As directed PRN Or Potassium Bicarb-Citric Acid, 40-60 mEq, As directed PRN Sodium chloride 0.9%, 250 mL, PRN ALLERGIES: She is allergic to statins. OBJECTIVE FINDINGS Vital Signs (24hrs): Temp: [97.7 F (36.5 C)-98.4 F (36.9 C)] 98.4 F (36.9 C) Pulse (Heart Rate): [55-93] 66 Resp Rate: [9-25] 10 BP: (85-194)/(42-81) 138/62 O2 Sat (%): [90 %-98 %] 95 % Weight: [59.4 kg (131 lb)] 59.4 kg (131 lb) Hemodynamic/Invasive Device Data (24 hrs): Pulmonary/Cardiac Hemodynamics Pulse (Heart Rate): 66 BSA (Calculated - sq m): 1.54 m2 Neuro ICP/CPP Monitoring MAP (mmHg): 89 mmHg Neuro ICP/CPP Monitoring 2 MAP (mmHg): 89 mmHg Ventilation/Oxygen Therapy (24hrs): Oxygen Therapy O2 Sat (%): 95 % O2 Device: nasal cannula Flow (L/min): 2 Oxygen Delivery/Consumption Hemodynamics BSA (Calculated - sq m): 1.54 m2 Lines/Drains/Airways/Wounds: Patient Lines/Drains/Airways Status Active Lines, Drains, Airways, & Wound Overview Name Placement date Placement time Site Days Peripheral IV Line - Single Lumen wrist, anterior, left 22 gauge -- -- -- -- Peripheral IV Line - Single Lumen 03/29/221999 median vein (underside of arm), right 20 gauge;1 1/4 in length 03/29/221999 -- 2 External Catheter -- -- -- -- Fluid Management (24hrs): -Intake/Output last 3 shifts: I/O last 3 completed shifts: In: 1677.5 [P.O.:1170; I.V.:507.5] Out: 900 [Urine:900] Physical Examination: General: Awake and conversant. Eyes: Normal conjunctiva, anicteric. Round symmetric pupils. Ear Nose Throat: Hearing grossly intact. No nasal discharge. Neck: Neck is supple. No masses or thyromegaly. Cardiovascular: regular rate and rhythm, distant heart sounds, no murmurs or friction rub. No lowerextremity edema Pulmonary: Clear to auscultation bilaterally. Respirations are non-labored. No wheezes Abdomen: Soft, Nontender, Nondistended, Normoactive bowel sounds. No rebound or guarding. Musculoskeletal: Able to move all 4 limbs. No gross deficits noted. Skin: Warm. No rashes or ulcers Psychiatric: Alert and oriented. Cooperative, Appropriate mood and affect, Normal judgment. Neurological: Sensation and cranial II-XII grossly normal. DIAGNOSTIC RESULTS/PROCEDURES Labs-ABGs Labs-CBC WBC/Hgb/Hct/Plts: 7.15/12.3/37.1/248 (04/01 156) Labs-Chem 7([facility]) Bun/Creat/Cl/CO2/Glucose: 29/0.69/105/22/176 (04/01 156-04/01 1056) Na/K+/Phos/Mg/Ca: 137/4.6/--/--/-- (04/01 156) Labs-Coags Ptt/Pt/Inr: 81.3/--/-- (04/01 156) Additional Labs No results found for: BNP No results found for: TROP No results found for: CHOLESTEROL, TRIG, HDL Imaging/Radiological Studies: ECHOCARDIOGRAM XR PANOREX (TEETH) Final Result FINDINGS/IMPRESSION: Nasal septum is midline. No air-fluid levels in the maxillary sinuses. No acute fracture or malalignment of the mandible. Multiple missing teeth. Dental fillings in several of the remaining teeth. No appreciable large dental caries or periapical radiolucencies at the remaining dentition. [facility] DUPLEX CAROTID BILATERAL Final Result CT ANGIO TAVR EVALUATION (Results Pending) Cath Results 03/21/22: Left main is calcified with extension of calcification into the LAD and left Circ Mid LAD severe disease of 90% stenosis D1 has a proximal 90% stenosis Ostial circumflex had 90% extension in hi OM1 branch RCA in stent stenosis 30% Distal RCA had 80% stenosis TTE 03/19/2022 EF 65%; Left atrium is mildly enlarged Moderate mitral annular calcification Extension of the mitral annular calcification into the base of the posterior mitral valve leaflet The mitral valve chordae are thickened and/or calcified Mild valve stenosis with mild insufficiency Trivial tricuspid valve stenosis Moderate to severe calcific aortic valve stenosis with an area of 0.5 cm2 Trivial aortic valve insufficieny Trivial pulmonic valve insufficiency RVSP 32 mmHg Diastolic function is indeterminate CXR (03/20/22): Mild degree of CHF with superimposed bibasilar infiltrates worse at the left lung base Consults/Procedures: IP CONSULT TO SURGERY - CARDIAC IP CONSULT TO STRUCTURAL HEART IP CONSULT TO DENTISTRY Patient seen and evalauted independently and with the resident/fellow with > 35 minutes of critical care spent at bedside on 04/01/22. I agree with the resident s/fellow s history, physical examination, and medical decisions as outlined with appropriate editing of entire note above. I discussed myfindings and the therapeutic plan with the resident/fellow. Chadwick Heart MD repairer welding systems and equipment Department of Medicine Division of Cardiovascular Medicine [facility] * Ele Saavedra MD - 04/01/2022 12:08 PM EST [facility] Medicine Progress Note Patient: Finesse Prather, : 1935, Impression / Plan 87 yo female who presented with progressive shortness of breathe, chest pressure on exertion and found to have hypoxic respiratory failure secondary to pulmonary edema and found to have worsening CADand Aortic Stenosis Acute NSTEMI Type I, POA: Cardiac Cath showed triple-vessel disease. Transferred here to discuss high risk PCI verse CABG. - Consulted OHS and structural Cardiology teams. Structural heart team d/w interventional cardiology. In light of her recurring chest pain despite nitroglycerin and heparin drips they plan for heart cath today. - Continue ASA and Plavix - Continue Nitrates, BB. Started on nitroglycerin drip 03/30 for recurrent chest discomfort. Closely monitoring blood pressure and symptoms. - Telemetry - OSH cath images available on disc. Moderate to Severe Aortic Stenosis: Here to discuss SAVR verse TAVR. Pt prefers TAVR initially. -Consulted structural cardiology team and OHS to help with procedural plan. Likely TAVR, but final decision pending. CT TAVR delayed due to cath today. TTE pending, trying to get images from [place].cleared by dentistry. Carotid doppler with 1-49% stenosis. Acute hypoxic respiratory failure secondary to acute on chronic diastolic heart failure, pulmonary edema, resolved: -Continue PO lasix 20 mg Essential Hypertension: BP intermittently high here -Continue imdur, Metoprolol, lisinopril. On nitroglycerin drip. Hyperlipidemia -Continue zetia - on omega-3 fa at home, but low dose not on inpatient formulary. Peripheral Artery Disease -Continue ASA Diabetes Mellitus, Type 2 Non-insulin dependent: holding home metformin while admitted. -SSI/CC, diabetic diet. Depression -Continue sertraline Poor dentition: seen by dentistry, no extractions recommended at this time BMI: 26.8 DVT prophylaxis with lovenox Anticipated Disposition: transfer to ACS Code status is DNRCC-ARREST Interval History / Subjective CC: chest pain Around 5 am woke up with chest discomfort and numbness in arms. Nitroglycerin drip uptitrated and pain resolved. Did ok yesterday without pain Seen by structural heart. Son Stas and other family at bedside. They understand plan for catheterization. Objective Temp: [97.7 F (36.5 C)-98.4 F (36.9 C)] 98.4 F (36.9 C) Pulse (Heart Rate): [55-93] 55 Resp Rate: [9-25] 18 BP: (85-194)/(42-81) 88/44 O2 Sat (%): [90 %-98 %] 96 % Physical Exam Gen: A, A, NAD ENT: MMM Resp: CTAB, normal effort Cardio: RRR, normal S1, S2, systolic ejection murmur. No ELIU GI: S/NT/ND, NABS Psych: Ox3, appropriate affect and cognition Data Review WBC/Hgb/Hct/Plts: 7.15/12.3/37.1/248 (04/01 015) Na/K+/Phos/Mg/Ca: 137/4.6/--/--/-- (04/01 156) Bun/Creat/Cl/CO2/Glucose: 29/0.69/105/22/176 (04/01 156-04/01 1056) Ptt/Pt/Inr: 81.3/--/-- (04/01 156) Tele reviewed. * Ele Saavedra MD - 03/31/2022 9:37 AM EST [facility] Medicine Progress Note Patient: Finesse Prather, : 1935, Impression / Plan 87 yo female who presented with progressive shortness of breathe, chest pressure on exertion and found to have hypoxic respiratory failure secondary to pulmonary edema and found to have worsening CADand Aortic Stenosis Acute NSTEMI Type I, POA: Cardiac Cath showed triple-vessel disease. Transferred here to discuss high risk PCI verse CABG. - Consulted OHS and structural Cardiology teams. PCI may be difficult, but awaiting discussion withinterventional cards team which will likely occur Thursday. - Continue ASA and Plavix - Continue Nitrates, BB. Started on nitroglycerin drip 03/30 for recurrent chest discomfort. Closely monitoring blood pressure and symptoms. - Telemetry Moderate to Severe Aortic Stenosis: Here to discuss SAVR verse TAVR. Pt prefers TAVR initially. -Consulted structural cardiology team and OHS to help with procedural plan. Likely TAVR, but final decision pending. CT TAVR pending, TTE pending, may be able to get images from [facility]. Needs dentistry evaluation. Carotid doppler with 1-49% stenosis. Acute hypoxic respiratory failure secondary to acute on chronic diastolic heart failure, pulmonary edema, resolved: -Continue PO lasix 20 mg Essential Hypertension: BP intermittently high here -Continue imdur, Metoprolol. Lisinopril increased 1/2 for HTN. On nitroglycerin drip. Hyperlipidemia -Continue zetia - on omega-3 fa at home, but low dose not on inpatient formulary. Peripheral Artery Disease -Continue ASA Diabetes Mellitus, Type 2 Non-insulin dependent: holding home metformin while admitted. -SSI/CC, diabetic diet. Depression -Continue sertraline BMI: 26.8 DVT prophylaxis with lovenox Anticipated Disposition: will depend on treatment decision, but eventually home Code status is DNRCC-ARREST Interval History / Subjective CC: chest discomfort She had 2 episodes last evening of chest pressure. Also one overnight. Started on nitroglycerin infusion. Symptoms seemed to come on when BP was particularly high. Feeling improved today. Talked to patient with daughter in room and son Stas on phone. Discussed next steps of evaluation. Her son brought up that he wanted the evaluation done as soon as possible, I agreed and explained I am doing all I can to expedite it. Objective Temp: [97.4 F (36.3 C)-98.4 F (36.9 C)] 97.7 F (36.5 C) Pulse (Heart Rate): [57-81] 68 Resp Rate: [10-42] 25 BP: (97-231)/(46-98) 147/60 O2 Sat (%): [89 %-99 %] 95 % Physical Exam Gen: A, A, NAD ENT: MMM Resp: CTAB, normal effort Cardio: RRR, normal S1, S2, systolic ejection murmur. No ELIU GI: S/NT/ND, NABS Psych: Ox3, appropriate affect and cognition Data Review Bun/Creat/Cl/CO2/Glucose: --/--/--/--/180 (03/31 0651) Ptt/Pt/Inr: 83.9/--/-- (03/31 0025) TTE report from OSH from 03/19 Interpretation Summary The study was technically difficult. Left ventricular systolic function is normal. The estimated ejection fraction is 65 %. The left atrium is mildly enlarged. There is moderate mitral annular calcification. Extension of the mitral annular calcification onto the base of the posterior mitral valve leaflet. The mitral valve chordae are thickened and/or calcified. Mild mitral valve stenosis. Mild (1+) mitral valve insufficiency. Trivial tricuspid valve insufficiency. Moderate to severe calcific aortic valve stenosis. Trivial aortic valve insufficiency. Trivial pulmonic valve insufficiency. Right ventricular systolic pressure estimated to be 32 mmHg. Diastolic function is indeterminate. * Sabas Petersen MD - 03/30/2022 12:14 PM EST [facility] Medicine Progress Note Patient: Finesse Prather, : 1935, Impression / Plan 87 yo female who presented with progressive shortness of breathe, chest pressure on exertion and found to have hypoxic respiratory failure secondary to pulmonary edema and found to have worsening CADand Aortic Stenosis Acute NSTEMI Type I, POA: Cardiac Cath showed triple-vessel disease. Transferred here to discuss high risk PCI verse CABG. - Consulted OHS and structural Cardiology teams. PCI may be difficult, but awaiting discussion withinterventional cards team which will likely occur Thursday. -Continue ASA and Plavix -Continue Nitrates, BB -Telemetry Moderate to Severe Aortic Stenosis: Here to discuss SAVR verse TAVR. Pt prefers TAVR initially. -Consulted structural cardiology team and OHS to help with procedural plan. Likely TAVR, but final decision pending. CT TAVR eval pending Acute hypoxic respiratory failure secondary to acute on chronic diastolic heart failure, pulmonary edema, resolved: -Continue PO lasix 20 mg Essential Hypertension -Continue imdur, lisinopril, metoprolol Hyperlipidemia -Continue zetia - on omega-3 fa at home, but low dose not on inpatient formulary. Peripheral Artery Disease -Continue ASA Diabetes Mellitus, Type 2 Non-insulin dependent: holding home metformin while admitted. -SSI/CC, diabetic diet. Depression -Continue sertraline BMI: 26.8 DVT prophylaxis with lovenox Anticipated Disposition: will depend on treatment decision, but eventually home Code status is DNRCC-ARREST Interval History / Subjective Chest pain last night improved with nitroglycerin tab. Elevated BP at the time likely pain related and has improved. Currently chest pain or shortness of breath. Objective Temp: [97.4 F (36.3 C)-98.6 F (37 C)] 98.5 F (36.9 C) Pulse (Heart Rate): [54-81] 54 Resp Rate: [13-39] 17 BP: (93-203)/(47-98) 110/54 O2 Sat (%): [92 %-96 %] 94 % Physical Exam Gen: A, A, NAD ENT: MMM Resp: CTAB, normal effort Cardio: RRR, normal S1, S2, systolic ejection murmur. No ELIU GI: S/NT/ND, NABS Psych: Ox3, appropriate affect and cognition Data Review WBC/Hgb/Hct/Plts: 7.07/12.0/36.3/233 (03/29 1902) Na/K+/Phos/Mg/Ca: --/4.6/--/2.0/-- (03/29 1815) Bun/Creat/Cl/CO2/Glucose: --/--/--/--/167 (03/30 1137) Ptt/Pt/Inr: 56.4/--/-- (03/30 1028) * Sabas Petersen MD - 03/29/2022 11:44 AM EST [facility] Progress Note Patient: Finesse Prather, : 1935, Impression / Plan 87 yo female who presented with progressive shortness of breathe, chest pressure on exertion and found to have hypoxic respiratory failure secondary to pulmonary edema and found to have worsening CADand Aortic Stenosis Acute NSTEMI Type I, POA: Cardiac Cath showed triple-vessel disease. Transferred here to discuss high risk PCI verse CABG. - Consulted OHS to review candidacy of cabg or if preferred. -Continue ASA and Plavix -Continue Nitrates, BB -Telemetry - Images on CD. Unable to upload images currently. Moderate to Severe Aortic Stenosis: Here to discuss SAVR verse TAVR. Pt prefers TAVR initially. -Consulted structural cardiology team and OHS to help with procedural plan -heart cath images sent on disc. Acute hypoxic respiratory failure secondary to acute on chronic diastolic heart failure, pulmonary edema, resolved: -Continue PO lasix 20 mg Essential Hypertension -Continue imdur, lisinopril, metoprolol Hyperlipidemia -Continue zetia - on omega-3 fa at home, but low dose not on inpatient formulary. Peripheral Artery Disease -Continue ASA Diabetes Mellitus, Type 2 Non-insulin dependent: holding home metformin while admitted. -SSI/CC, diabetic diet. Depression -Continue sertraline BMI: 26.8 DVT prophylaxis with lovenox Anticipated Disposition: will depend on treatment decision, but eventually home Code status is DNRCC-ARREST Interval History / Subjective Denies current chest pain or shortness of breath. States she is willing to hear recommendation of intervention for aortic stenosis and triple vessel coronary disease, but initially would prefer not to have an open surgical procedure if possible. Objective Temp: [97.4 F (36.3 C)-98.7 F (37.1 C)] 98.7 F (37.1 C) Pulse (Heart Rate): [57-84] 59 Resp Rate: [11-29] 22 BP: (92-175)/(44-74) 119/55 O2 Sat (%): [93 %-99 %] 93 % Weight: [59.7 kg (131 lb 9.6 oz)-60.1 kg (132 lb 6.4 oz)] 59.7 kg (131 lb 9.6 oz) Physical Exam Gen: A, A, NAD ENT: MMM Resp: CTAB, normal effort Cardio: RRR, normal S1, S2, systolic ejection murmur. No ELIU GI: S/NT/ND, NABS Psych: Ox3, appropriate affect and cognition Data Review WBC/Hgb/Hct/Plts: 7.58/13.1/39.9/267 (03/29 34) Na/K+/Phos/Mg/Ca: 139/4.0/3.9/2.1/9.1 (03/29 34) Bun/Creat/Cl/CO2/Glucose: 32/0.75/104/27/145 (03/29 34-03/29 643) Ptt/Pt/Inr: 28.1/12.8/1.0 (03/29 34) [facility]* Nursing Notes - Guadalupe Matta RN - 04/05/2022 9:45 AM EST Started complaining of chest pain after a walk with her son around unit. EKG obtained. Vitals stable. This nurse offered PRN medications but patient declined. Stated, It's gone. Patient stated her pain felt similar as the previous times she has had but denied shortness of breath. Sent secure chatto Dr Matute. Waiting ping pong table assembler back at this time. 0952: Dr Cox voiced understanding. No new orders obtained. [facility]01-07-[facility] Miscellaneous Notes* Nursing Notes - Guadalupe Matta RN - 04/05/2022 9:45 AM EST Started complaining of chest pain after a walk with her son around unit. EKG obtained. Vitals stable. This nurse offered PRN medications but patient declined. Stated, It's gone. Patient stated her pain felt similar as the previous times she has had but denied shortness of breath. Sent secure chatto Dr Matute. Waiting ping pong table assembler back at this time. 0952: Dr Cox voiced understanding. No new orders obtained. * Brief Op Note - Tito Holguin MD - 04/04/2022 11:16 AM EST Preliminary Report - Brief Cardiac Catheterization Procedure Note Finesse Prather ([id number]) Pre Procedural Diagnosis Coronary artery disease involving yocha dehe coronary artery of yocha dehe heart with unstable angina pectoris [I25.110] NSTEMI (non-ST elevated myocardial infarction) [I21.4] Post Procedural Diagnosis Obstructive CAD Procedure Performed Coronary angiogram and Percutaneous coronary intervention Access Site/Hemostasis Left femoral artery, Perclose Right radial, attempted, sheath not placed, coband pressure wrap Findings Left Ventricular End Diastolic Pressure: Not assessed Left Ventricular Ejection Fraction: Not assessed Preliminary Results of Angiography Obstructive CAD Percutaneous Coronary Intervention Drug eluting stent, right coronary artery, Number of Stents 1 Intraprocedure Anticoagulation Heparin Post-procedure Anticoagulation Anticoagulation to be restarted: No Estimated Blood Loss Minimal Complications None Admission Does patient need to be admitted: Currently admitted Surgeon Surgeon(s) and Role: * Criselda Bacon MD - Primary * Tito Holguin MD - Fellow * Jacobo Alfaro MD - Fellow Procedural Staff Cane Flume Chute Operator: CHIQUI Hernandez Portable Router Operator: RT Daphne Sedation Nurse: Tomas Gibson RN Documenter: Barbie Garg RN Full report to follow Tito Holguin MD April 04, 2022 11:16 AM * Nursing Notes - Kang Landers RN - 04/04/2022 7:40 AM EST Pt b/p elevated 191/76. Acute coronary team at bedside and made aware. No new orders at this time. Kang Landers RN * Plan of Care - Monet Castle RN - 04/04/2022 5:06 AM EST Problem: Patient Care Overview Goal: Plan of Care Review Outcome: Met This Shift Goal: Individualization & Mutuality Outcome: Met This Shift * Plan of Care - Lino Trotter MD - 04/04/2022 2:30 AM EST Images from the original note were not included. Overnight plan of care. Informed that patient reporting new chest pain overnight. Received 1 SLN with improvement in pain. Noted to radiated to bilateral arms with heavy feeling near her elbows. I evaluated the patient at bedside after a second SLN tablet was administered. She reports that her chest pain is gone, prior tonitroglycerin pain was 2/10 in severity. Prior to her most recent PCI, she says that her pain was significantly different and more severe than what she is currently experiencing. Vitals: 04/04/22 0207 BP: 170/71 Pulse: 61 Resp: 13 Temp: Note that BP is elevated. She appears well. Again appreciated is a 3-4/6 systolic murmur (noted on previous day team progress notes). Her face is symmetric, strength is 5/5 and equal in bilateral upper/lower extremities, sensation to soft touch is intact in bilateral upper and lower extremities. Multiple ECGs obtained: Initial ECG with ST depressions in lateral and inferior leads and ST flattening Repeat ECG: Improving ST changes (depressions and flattening). No ST elevations appreciated. Plans - HS-troponin x 2 - Repeat ECG PRN - Continue with plan for PCI 04/04/22 to RCA - Plan for PRN hydralazine PO for SBP > 180 Lino Trotter MD Internal Medicine PGY3 * Plan of Care - Kaylin Collado RN - 04/03/2022 10:24 AM EST Problem: Patient Care Overview Goal: Plan of Care Review Outcome: Ongoing Goal: Individualization & Mutuality Outcome: Ongoing Goal: Discharge Needs Assessment Outcome: Ongoing Goal: Interdisciplinary Rounds/Family Conf Outcome: Ongoing Problem: Mobility, Physical Impaired (Adult) Goal: Identify Related Risk Factors and Signs and Symptoms Description: Related risk factors and signs and symptoms are identified upon initiation of Human Response Clinical Practice Guideline (CPG) Outcome: Ongoing Goal: Enhanced Mobility Skills Description: Patient will demonstrate the desired outcomes by discharge/transition of care. Outcome: Ongoing Goal: Enhanced Functionality Ability Description: Patient will demonstrate the desired outcomes by discharge/transition of care. Outcome: Ongoing Goal: Identify Related Risk Factors and Signs and Symptoms Description: Related risk factors and signs and symptoms are identified upon initiation of Human Response Clinical Practice Guideline (CPG) Outcome: Ongoing Goal: Enhanced Mobility Skills Description: Patient will demonstrate the desired outcomes by discharge/transition of care. Outcome: Ongoing Goal: Enhanced Functionality Ability Description: Patient will demonstrate the desired outcomes by discharge/transition of care. Outcome: Ongoing Problem: Fall/Trauma/Injury Risk (Adult) Goal: Fall/Trauma/Injury Risk: Absence of Trauma/Injury/Falls Description: Patient will demonstrate the desired outcomes. Outcome: Ongoing Goal: Knowledge of risk factors/behavior modification Description: Knowledge of risk factors/behavior modification for fall/injury prevention Outcome: Ongoing Problem: Cardiac: ACS (Acute Coronary Syndrome) (Adult) Goal: Signs and Symptoms of Listed Potential Problems Will be Absent, Minimized or Managed (Cardiac: ACS) Description: Signs and symptoms of listed potential problems will be absent, minimized or managed by discharge/transition of care (reference Cardiac: ACS (Acute Coronary Syndrome) (Adult) CPG). Outcome: Ongoing Problem: Pain, Acute (Adult) Goal: Identify Related Risk Factors and Signs and Symptoms Description: Related risk factors and signs and symptoms are identified upon initiation of Human Response Clinical Practice Guideline (CPG) Outcome: Ongoing Goal: Acceptable Pain Control/Comfort Level Description: Patient will demonstrate the desired outcomes by discharge/transition of care. Outcome: Ongoing * Plan of Care - Madelyn Salvador RN - 04/03/2022 1:17 AM EST Problem: Patient Care Overview Goal: Plan of Care Review Outcome: Ongoing Goal: Individualization & Mutuality Outcome: Ongoing Goal: Discharge Needs Assessment Outcome: Ongoing Goal: Interdisciplinary Rounds/Family Conf Outcome: Ongoing Problem: Mobility, Physical Impaired (Adult) Goal: Identify Related Risk Factors and Signs and Symptoms Description: Related risk factors and signs and symptoms are identified upon initiation of Human Response Clinical Practice Guideline (CPG) Outcome: Ongoing Goal: Enhanced Mobility Skills Description: Patient will demonstrate the desired outcomes by discharge/transition of care. Outcome: Ongoing Goal: Enhanced Functionality Ability Description: Patient will demonstrate the desired outcomes by discharge/transition of care. Outcome: Ongoing Goal: Identify Related Risk Factors and Signs and Symptoms Description: Related risk factors and signs and symptoms are identified upon initiation of Human Response Clinical Practice Guideline (CPG) Outcome: Ongoing Goal: Enhanced Mobility Skills Description: Patient will demonstrate the desired outcomes by discharge/transition of care. Outcome: Ongoing Goal: Enhanced Functionality Ability Description: Patient will demonstrate the desired outcomes by discharge/transition of care. Outcome: Ongoing Problem: Fall/Trauma/Injury Risk (Adult) Goal: Fall/Trauma/Injury Risk: Absence of Trauma/Injury/Falls Description: Patient will demonstrate the desired outcomes. Outcome: Ongoing Goal: Knowledge of risk factors/behavior modification Description: Knowledge of risk factors/behavior modification for fall/injury prevention Outcome: Ongoing Problem: Cardiac: ACS (Acute Coronary Syndrome) (Adult) Goal: Signs and Symptoms of Listed Potential Problems Will be Absent, Minimized or Managed (Cardiac: ACS) Description: Signs and symptoms of listed potential problems will be absent, minimized or managed by discharge/transition of care (reference Cardiac: ACS (Acute Coronary Syndrome) (Adult) CPG). Outcome: Ongoing Problem: Pain, Acute (Adult) Goal: Identify Related Risk Factors and Signs and Symptoms Description: Related risk factors and signs and symptoms are identified upon initiation of Human Response Clinical Practice Guideline (CPG) Outcome: Ongoing Goal: Acceptable Pain Control/Comfort Level Description: Patient will demonstrate the desired outcomes by discharge/transition of care. Outcome: Ongoing * Nursing Notes - Digna Cardenas RN - 04/01/2022 6:42 PM EST 1835: Assessed pts R groin site and noticed increased oozing/hardened area. Following page sent to ACS resident, 416Cindy Prather: Right groin site oozing increased, slight hardness near the top of incision. Any orders? Thanks Digna [id number]: ACS resident at bedside. 1902: ACS resident holding manual pressure at bedside. * Plan of Care - Digna Cardenas RN - 04/01/2022 5:57 PM EST Problem: Patient Care Overview Goal: Individualization & Mutuality Outcome: Met This Shift Problem: Mobility, Physical Impaired (Adult) Goal: Identify Related Risk Factors and Signs and Symptoms Description: Related risk factors and signs and symptoms are identified upon initiation of Human Response Clinical Practice Guideline (CPG) Outcome: Met This Shift Goal: Identify Related Risk Factors and Signs and Symptoms Description: Related risk factors and signs and symptoms are identified upon initiation of Human Response Clinical Practice Guideline (CPG) Outcome: Met This Shift Problem: Patient Care Overview Goal: Plan of Care Review Outcome: Ongoing Goal: Discharge Needs Assessment Outcome: Ongoing Goal: Interdisciplinary Rounds/Family Conf Outcome: Ongoing Problem: Mobility, Physical Impaired (Adult) Goal: Enhanced Mobility Skills Description: Patient will demonstrate the desired outcomes by discharge/transition of care. Outcome: Ongoing Goal: Enhanced Mobility Skills Description: Patient will demonstrate the desired outcomes by discharge/transition of care. Outcome: Ongoing Goal: Enhanced Functionality Ability Description: Patient will demonstrate the desired outcomes by discharge/transition of care. Outcome: Ongoing * Brief Op Note - Tito Bartholomew MD - 04/01/2022 2:56 PM EST Preliminary Report - Brief Cardiac Catheterization Procedure Note Finesse Prather ([id number]) Pre Procedural Diagnosis Coronary artery disease involving yocha dehe coronary artery of yocha dehe heart with unstable angina pectoris [I25.110] NSTEMI (non-ST elevated myocardial infarction) [I21.4] Post Procedural Diagnosis Stented coronary artery Procedure Performed Coronary angiogram and Percutaneous coronary intervention Access Site/Hemostasis Right femoral artery, Perclose Findings Left Ventricular End Diastolic Pressure: Not assessed Left Ventricular Ejection Fraction: Not assessed Preliminary Results of Angiography Obstructive CAD Percutaneous Coronary Intervention Drug eluting stent, left anterior descending, Number of Stents 2 Intraprocedure Anticoagulation Heparin Post-procedure Anticoagulation Anticoagulation to be restarted: No Estimated Blood Loss Minimal Complications None Admission Does patient need to be admitted: Currently admitted Surgeon Surgeon(s) and Role: * Eder Jaime Jr., MD - Primary * Tito Bartholomew MD - Fellow Procedural Staff Cane Flume Chute Operator: Mira Caban RN; Ralf Martin, FRANCISCO; Pelon Gilliam RN Documenter: Kathy Barbour RN Full report to follow Tito Bartholomew MD April 01, 2022 2:56 PM * Nursing Notes - Maty Latham RN - 04/01/2022 6:02 AM EST 5040 Natalia: awoke with chest pain and bilateral arm numbness. Titrating Nitro Gtt, currently at 30mcg/hr, c/o SOB on 2LNC 97% B/P 140/64. Maty SINGH [id number] Copy of text page sent to MD ping pong table assembler for RH service, await response. 0615: 5040 Natalia: Nitro gtt @50mcg/min, chest pain resolving, b/p 129/61 HR 86. Son, who is POA isat bedside and has questions/concerns hed like to address with MD. Maty SINGH [id number], copy of text page sent to MD ping pong table assembler for RH service. . * Plan of Care - Maty Latham RN - 04/01/2022 12:39 AM EST Problem: Patient Care Overview Goal: Plan of Care Review Outcome: Ongoing Goal: Individualization & Mutuality Outcome: Ongoing Goal: Discharge Needs Assessment Outcome: Ongoing Problem: Mobility, Physical Impaired (Adult) Goal: Identify Related Risk Factors and Signs and Symptoms Description: Related risk factors and signs and symptoms are identified upon initiation of Human Response Clinical Practice Guideline (CPG) Outcome: Ongoing Goal: Enhanced Mobility Skills Description: Patient will demonstrate the desired outcomes by discharge/transition of care. Outcome: Ongoing Goal: Enhanced Functionality Ability Description: Patient will demonstrate the desired outcomes by discharge/transition of care. Outcome: Ongoing Problem: Fall/Trauma/Injury Risk (Adult) Goal: Fall/Trauma/Injury Risk: Absence of Trauma/Injury/Falls Description: Patient will demonstrate the desired outcomes. Outcome: Ongoing Goal: Knowledge of risk factors/behavior modification Description: Knowledge of risk factors/behavior modification for fall/injury prevention Outcome: Ongoing Problem: Cardiac: ACS (Acute Coronary Syndrome) (Adult) Goal: Signs and Symptoms of Listed Potential Problems Will be Absent, Minimized or Managed (Cardiac: ACS) Description: Signs and symptoms of listed potential problems will be absent, minimized or managed by discharge/transition of care (reference Cardiac: ACS (Acute Coronary Syndrome) (Adult) CPG). Outcome: Ongoing * Plan of Care - Kaylin Collado RN - 03/31/2022 10:19 AM EST Problem: Patient Care Overview Goal: Plan of Care Review Outcome: Ongoing Goal: Individualization & Mutuality Outcome: Ongoing Goal: Discharge Needs Assessment Outcome: Ongoing Goal: Interdisciplinary Rounds/Family Conf Outcome: Ongoing Problem: Mobility, Physical Impaired (Adult) Goal: Identify Related Risk Factors and Signs and Symptoms Description: Related risk factors and signs and symptoms are identified upon initiation of Human Response Clinical Practice Guideline (CPG) Outcome: Ongoing Goal: Enhanced Mobility Skills Description: Patient will demonstrate the desired outcomes by discharge/transition of care. Outcome: Ongoing Goal: Enhanced Functionality Ability Description: Patient will demonstrate the desired outcomes by discharge/transition of care. Outcome: Ongoing Problem: Fall/Trauma/Injury Risk (Adult) Goal: Fall/Trauma/Injury Risk: Absence of Trauma/Injury/Falls Description: Patient will demonstrate the desired outcomes. Outcome: Ongoing Goal: Knowledge of risk factors/behavior modification Description: Knowledge of risk factors/behavior modification for fall/injury prevention Outcome: Ongoing Problem: Cardiac: ACS (Acute Coronary Syndrome) (Adult) Goal: Signs and Symptoms of Listed Potential Problems Will be Absent, Minimized or Managed (Cardiac: ACS) Description: Signs and symptoms of listed potential problems will be absent, minimized or managed by discharge/transition of care (reference Cardiac: ACS (Acute Coronary Syndrome) (Adult) CPG). Outcome: Ongoing Problem: Pain, Acute (Adult) Goal: Identify Related Risk Factors and Signs and Symptoms Description: Related risk factors and signs and symptoms are identified upon initiation of Human Response Clinical Practice Guideline (CPG) Outcome: Ongoing Goal: Acceptable Pain Control/Comfort Level Description: Patient will demonstrate the desired outcomes by discharge/transition of care. Outcome: Ongoing * Plan of Care - Maty Latham RN - 03/31/2022 5:49 AM EST Problem: Patient Care Overview Goal: Plan of Care Review Outcome: Ongoing Goal: Individualization & Mutuality Outcome: Ongoing Goal: Discharge Needs Assessment Outcome: Ongoing Problem: Mobility, Physical Impaired (Adult) Goal: Identify Related Risk Factors and Signs and Symptoms Description: Related risk factors and signs and symptoms are identified upon initiation of Human Response Clinical Practice Guideline (CPG) Outcome: Ongoing Goal: Enhanced Mobility Skills Description: Patient will demonstrate the desired outcomes by discharge/transition of care. Outcome: Ongoing Goal: Enhanced Functionality Ability Description: Patient will demonstrate the desired outcomes by discharge/transition of care. Outcome: Ongoing Problem: Cardiac: ACS (Acute Coronary Syndrome) (Adult) Goal: Signs and Symptoms of Listed Potential Problems Will be Absent, Minimized or Managed (Cardiac: ACS) Description: Signs and symptoms of listed potential problems will be absent, minimized or managed by discharge/transition of care (reference Cardiac: ACS (Acute Coronary Syndrome) (Adult) CPG). Outcome: Ongoing Problem: Pain, Acute (Adult) Goal: Identify Related Risk Factors and Signs and Symptoms Description: Related risk factors and signs and symptoms are identified upon initiation of Human Response Clinical Practice Guideline (CPG) Outcome: Ongoing Goal: Acceptable Pain Control/Comfort Level Description: Patient will demonstrate the desired outcomes by discharge/transition of care. Outcome: Ongoing * Nursing Notes - Maty Latham RN - 03/31/2022 4:03 AM EST 5040 Natalia: would you please increased apresoline PRN frequency to Q4hrs? She needs a dose but it's not available yet. [place], [place] [phone], copy of text page sent to MD ping pong table assembler for KEM narayanamor, await response. * Nursing Notes - Kaylin Collado RN - 03/30/2022 7:31 PM EST @1730 pt complains of chest pain, SL nitroglycerin given, ECG obtained, BP:230/97 @1736 second dose of SL nitroglycerin, additional ECG obtained, BP: 112/56 HR:69 @1740 chest pain resolved, Dr. Petersen notified @1815 pt complains of chest pain, Dr. Petersen notified, new orders for nitroglycerin gtt @1817 SL nitroglycerin given, BP: 226/98 @1825 BP 129/61 pt reports diminished pain @1837 Nitroglycerin gtt started * Plan of Care - Sabas Petersen MD - 03/30/2022 6:08 PM EST Brief update note Patient with recurrent chest pain episodes. Also associated with significantly elevated blood pressures upt ot 200 systolic during episodes, which resolve quickly with nitroglycerin. Last episode yesterday and again now. If increasing in frequency, may benefit from nitroglycerin infusion while awaiting surgical evaluation. - for now increase imdur to 60mg - low threshold for nitroglycerin infusion if cp recurrent or not quickly improved with sublingual ntg Update: 45 minutes after chest pain resolution, it is recurring. Will add nitroglycerin infusion Sabas Petersen MD * Plan of Care - Kaylin Collado RN - 03/30/2022 11:17 AM EST Problem: Patient Care Overview Goal: Plan of Care Review Outcome: Ongoing Goal: Individualization & Mutuality Outcome: Ongoing Goal: Discharge Needs Assessment Outcome: Ongoing Goal: Interdisciplinary Rounds/Family Conf Outcome: Ongoing Problem: Mobility, Physical Impaired (Adult) Goal: Identify Related Risk Factors and Signs and Symptoms Description: Related risk factors and signs and symptoms are identified upon initiation of Human Response Clinical Practice Guideline (CPG) Outcome: Ongoing Goal: Enhanced Mobility Skills Description: Patient will demonstrate the desired outcomes by discharge/transition of care. Outcome: Ongoing Goal: Enhanced Functionality Ability Description: Patient will demonstrate the desired outcomes by discharge/transition of care. Outcome: Ongoing Problem: Fall/Trauma/Injury Risk (Adult) Goal: Fall/Trauma/Injury Risk: Absence of Trauma/Injury/Falls Description: Patient will demonstrate the desired outcomes. Outcome: Ongoing Goal: Knowledge of risk factors/behavior modification Description: Knowledge of risk factors/behavior modification for fall/injury prevention Outcome: Ongoing Problem: Cardiac: ACS (Acute Coronary Syndrome) (Adult) Goal: Signs and Symptoms of Listed Potential Problems Will be Absent, Minimized or Managed (Cardiac: ACS) Description: Signs and symptoms of listed potential problems will be absent, minimized or managed by discharge/transition of care (reference Cardiac: ACS (Acute Coronary Syndrome) (Adult) CPG). Outcome: Ongoing Problem: Pain, Acute (Adult) Goal: Identify Related Risk Factors and Signs and Symptoms Description: Related risk factors and signs and symptoms are identified upon initiation of Human Response Clinical Practice Guideline (CPG) Outcome: Ongoing Goal: Acceptable Pain Control/Comfort Level Description: Patient will demonstrate the desired outcomes by discharge/transition of care. Outcome: Ongoing * Plan of Care - Shelly Thomas MD - 03/30/2022 10:34 AM EST Patient reviewed with Dr. Wilson. Briefly, 87 y.o. female who with CAD s/p stents (2016/2017), PAD, carotid stenosis with TIA s/p bilateral endarterectomy (L 2010, R 2017), HTN, HLD, DM who presented with chest pain and dyspnea, found to have NSTEMI and severe aortic stenosis. Patient prefers TAVR/PCI route, which we are in agreement with given her age and comorbid conditions. - CT TAVR protocol - repeat echo here - panorex and dental evaluation - carotid duplex ultrasound Mary Thomas MD Cardiothoracic Surgery [phone] * Plan of Care - Monet Castle RN - 03/29/2022 11:23 PM EST Problem: Patient Care Overview Goal: Plan of Care Review 03/29/20222313 by Monet Castle RN Outcome: Met This Shift 03/29/20222312 by Monet Castle RN Outcome: Met This Shift Goal: Individualization & Mutuality 03/29/20222313 by Monet Castle RN Outcome: Met This Shift 03/29/20222312 by Monet Castle RN Outcome: Met This Shift Problem: Mobility, Physical Impaired (Adult) Goal: Enhanced Mobility Skills Description: Patient will demonstrate the desired outcomes by discharge/transition of care. Outcome: Met This Shift Goal: Enhanced Functionality Ability Description: Patient will demonstrate the desired outcomes by discharge/transition of care. Outcome: Met This Shift Problem: Cardiac: ACS (Acute Coronary Syndrome) (Adult) Goal: Signs and Symptoms of Listed Potential Problems Will be Absent, Minimized or Managed (Cardiac: ACS) Description: Signs and symptoms of listed potential problems will be absent, minimized or managed by discharge/transition of care (reference Cardiac: ACS (Acute Coronary Syndrome) (Adult) CPG). Outcome: Met This Shift Problem: Pain, Acute (Adult) Goal: Identify Related Risk Factors and Signs and Symptoms Description: Related risk factors and signs and symptoms are identified upon initiation of Human Response Clinical Practice Guideline (CPG) Outcome: Met This Shift Goal: Acceptable Pain Control/Comfort Level Description: Patient will demonstrate the desired outcomes by discharge/transition of care. Outcome: Met This Shift * Nursing Notes - Kaylin Collado RN - 03/29/2022 7:22 PM EST @1750 pt complains of chest pain, ECG obtained, abnormal results. BP: 203/90 HR:81 @1805 1st SL nitroglycerin given, paged, orders for labetolol, morphine, and 2nd nitroglycerin. Pt reports relief with 1st nitroglycerin. @1810 MD arrived at bedside @1814 Labetolol and nitroglycerin given. Troponin drawn. Pts reports decreased chest pain @1815 morphine held per MD, BP: 166/71 HR:72 @1835 ECG obtained showing normal results, BP: 103/50 HR:67 * Significant Event - Henrique Petersen MD - 03/29/2022 6:46 PM EST Repeat EKG done at 6:35 p.m. after evaluation of chest pains showing complete resolution of ST depression in 2 3 and AVF. Considering dynamic EKG changes, chest pain resolved with nitroglycerin (chest pain occurring at rest) the patient has unstable angina (NSTEMI if troponin comes back elevated) In this scenario, I will start this patient on IV heparin drip for acute coronary syndrome. Cardiology has already been consulted, I do not see any indication for emergent interventional cardiology evaluation at this point. If the patient continues to have repeated episodes, office coordinator to be contacted. * Significant Event - Henrique Petersen MD - 03/29/2022 6:32 PM EST This is a 87-year-old female with recently diagnosed triple-vessel coronary artery disease transferred to [facility] for evaluation for CABG. She also has underlying moderate to severe aortic stenosis Called by nurse around 6:00 p.m. for sudden onset retrosternal chest pressure associated with significant hypertension. Patient was promptly evaluated at bedside Subjective: The patient was admitted to Medicine acute distress reports significant improvement in his panel complete resolution. This has been lasted for about 15-20 minutes and improved after 2 sublingual nitroglycerin tablets.Next Objective: Vitals: reviewed Blood pressure after 1 dose of IV labetalol and 2 sublingual nitroglycerin systolic 90 and diastolic 44 Heart rate 80 per minute setting more than 95% on room air Cardiac: RRR S1-S2 normal Lungs: Bilateral normal breath sounds without any wheezing or crackles Abdomen: Soft nontender to palpation Stat EKG will obtain by bedside nurse. EKG reviewed by me personally showing ST depression in [address] elevation. Compared to prior EKG from 03/20/2022, this is new finding most likely ischemic in nature. The patient was given 2 sublingual nitroglycerin and 1 dose of IV labetalol The patient reported complete resolution of her chest pain. Stat troponin ordered Repeat EKG ordered now that the chest pain had resolved to look for dynamic EKG changes If troponin comes back high, I will start the patient on IV heparin drip I am avoiding starting the patient on IV nitroglycerin drip considering underlying moderate to severe aortic stenosis and the fact that the patient's chest pain has now resolved. Critical care time spent evaluating and managing this patient is 35 minutes Henrique Petersen MD Home Economics Expert of Internal Medicine Division of Hospital Medicine [facility], [facility] * Plan of Care - Kaylin Collado RN - 03/29/2022 10:37 AM EST Problem: Patient Care Overview Goal: Plan of Care Review Outcome: Ongoing Goal: Individualization & Mutuality Outcome: Ongoing Goal: Discharge Needs Assessment Outcome: Ongoing Goal: Interdisciplinary Rounds/Family Conf Outcome: Ongoing Problem: Mobility, Physical Impaired (Adult) Goal: Identify Related Risk Factors and Signs and Symptoms Description: Related risk factors and signs and symptoms are identified upon initiation of Human Response Clinical Practice Guideline (CPG) Outcome: Ongoing Goal: Enhanced Mobility Skills Description: Patient will demonstrate the desired outcomes by discharge/transition of care. Outcome: Ongoing Goal: Enhanced Functionality Ability Description: Patient will demonstrate the desired outcomes by discharge/transition of care. Outcome: Ongoing Problem: Fall/Trauma/Injury Risk (Adult) Goal: Fall/Trauma/Injury Risk: Absence of Trauma/Injury/Falls Description: Patient will demonstrate the desired outcomes. Outcome: Ongoing Goal: Knowledge of risk factors/behavior modification Description: Knowledge of risk factors/behavior modification for fall/injury prevention Outcome: Ongoing * Certification - Tanya Hylton MD - 03/28/2022 10:53 PM EST I certify that this patient requires inpatient services at this time. I anticipate the expected length of stay will include at least two midnights. Inpatient services are due to the following medicalconcerns aortic stenosis and NSTEMI. Plans for post hospitalization care will be discharge to home. documented in [facility] encounter[facility] Brief Op Note - Tito Holguin MD - 04/04/2022 11:16 AM EST Preliminary Report - Brief Cardiac Catheterization Procedure Note Finesse Prather ([id number]) Pre Procedural Diagnosis Coronary artery disease involving yocha dehe coronary artery of yocha dehe heart with unstable angina pectoris [I25.110] NSTEMI (non-ST elevated myocardial infarction) [I21.4] Post Procedural Diagnosis Obstructive CAD Procedure Performed Coronary angiogram and Percutaneous coronary intervention Access Site/Hemostasis Left femoral artery, Perclose Right radial, attempted, sheath not placed, coband pressure wrap Findings Left Ventricular End Diastolic Pressure: Not assessed Left Ventricular Ejection Fraction: Not assessed Preliminary Results of Angiography Obstructive CAD Percutaneous Coronary Intervention Drug eluting stent, right coronary artery, Number of Stents 1 Intraprocedure Anticoagulation Heparin Post-procedure Anticoagulation Anticoagulation to be restarted: No Estimated Blood Loss Minimal Complications None Admission Does patient need to be admitted: Currently admitted Surgeon Surgeon(s) and Role: * Criselda Bacon MD - Primary * Tito Holguin MD - Fellow * Jacobo Alfaro MD - Fellow Procedural Staff Cane Flume Chute Operator: CHIQUI Hernandez Portable Router Operator: RT Daphne Sedation Nurse: Tomas Gibson RN Documenter: Barbie Garg RN Full report to follow Tito Holguin MD April 04, 2022 11:16 AM [facility] Work Phone: [phone] Note* Nursing Notes - Kang Landers RN - 04/04/2022 7:40 AM EST Pt b/p elevated 191/76. Acute coronary team at bedside and made aware. No new orders at this time. Kang Landers RN [facility]01-06-2023 Note* Plan of Care - Monet Castle RN - 04/04/2022 5:06 AM EST Problem: Patient Care Overview Goal: Plan of Care Review Outcome: Met This Shift Goal: Individualization & Mutuality Outcome: Met This Shift [facility]01-06-2023 NoteAcute Coronary Syndrome (ACS): Initial Evaluation and Management: [email or web address] [email or web address] [facility]01-06-2023 NoteAcute Coronary Syndrome (ACS): Initial Evaluation and Management: [email or web address] [email or web address] [facility]01-06-2023 Note* Plan of Care - Lino Trotter MD - 04/04/2022 2:30 AM EST Images from the original note were not included. Overnight plan of care. Informed that patient reporting new chest pain overnight. Received 1 SLN with improvement in pain. Noted to radiated to bilateral arms with heavy feeling near her elbows. I evaluated the patient at bedside after a second SLN tablet was administered. She reports that her chest pain is gone, prior tonitroglycerin pain was 2/10 in severity. Prior to her most recent PCI, she says that her pain was significantly different and more severe than what she is currently experiencing. Vitals: 04/04/22 0207 BP: 170/71 Pulse: 61 Resp: 13 Temp: Note that BP is elevated. She appears well. Again appreciated is a 3-4/6 systolic murmur (noted on previous day team progress notes). Her face is symmetric, strength is 5/5 and equal in bilateral upper/lower extremities, sensation to soft touch is intact in bilateral upper and lower extremities. Multiple ECGs obtained: Initial ECG with ST depressions in lateral and inferior leads and ST flattening Repeat ECG: Improving ST changes (depressions and flattening). No ST elevations appreciated. Plans - HS-troponin x 2 - Repeat ECG PRN - Continue with plan for PCI 04/04/22 to RCA - Plan for PRN hydralazine PO for SBP > 180 Lino Trotter MD Internal Medicine PGY3 [facility] Work Phone: [phone] 594-632701-05-2023 Note* Plan of Care - Kaylin Collado RN - 04/03/2022 10:24 AM EST Problem: Patient Care Overview Goal: Plan of Care Review Outcome: Ongoing Goal: Individualization & Mutuality Outcome: Ongoing Goal: Discharge Needs Assessment Outcome: Ongoing Goal: Interdisciplinary Rounds/Family Conf Outcome: Ongoing Problem: Mobility, Physical Impaired (Adult) Goal: Identify Related Risk Factors and Signs and Symptoms Description: Related risk factors and signs and symptoms are identified upon initiation of Human Response Clinical Practice Guideline (CPG) Outcome: Ongoing Goal: Enhanced Mobility Skills Description: Patient will demonstrate the desired outcomes by discharge/transition of care. Outcome: Ongoing Goal: Enhanced Functionality Ability Description: Patient will demonstrate the desired outcomes by discharge/transition of care. Outcome: Ongoing Goal: Identify Related Risk Factors and Signs and Symptoms Description: Related risk factors and signs and symptoms are identified upon initiation of Human Response Clinical Practice Guideline (CPG) Outcome: Ongoing Goal: Enhanced Mobility Skills Description: Patient will demonstrate the desired outcomes by discharge/transition of care. Outcome: Ongoing Goal: Enhanced Functionality Ability Description: Patient will demonstrate the desired outcomes by discharge/transition of care. Outcome: Ongoing Problem: Fall/Trauma/Injury Risk (Adult) Goal: Fall/Trauma/Injury Risk: Absence of Trauma/Injury/Falls Description: Patient will demonstrate the desired outcomes. Outcome: Ongoing Goal: Knowledge of risk factors/behavior modification Description: Knowledge of risk factors/behavior modification for fall/injury prevention Outcome: Ongoing Problem: Cardiac: ACS (Acute Coronary Syndrome) (Adult) Goal: Signs and Symptoms of Listed Potential Problems Will be Absent, Minimized or Managed (Cardiac: ACS) Description: Signs and symptoms of listed potential problems will be absent, minimized or managed by discharge/transition of care (reference Cardiac: ACS (Acute Coronary Syndrome) (Adult) CPG). Outcome: Ongoing Problem: Pain, Acute (Adult) Goal: Identify Related Risk Factors and Signs and Symptoms Description: Related risk factors and signs and symptoms are identified upon initiation of Human Response Clinical Practice Guideline (CPG) Outcome: Ongoing Goal: Acceptable Pain Control/Comfort Level Description: Patient will demonstrate the desired outcomes by discharge/transition of care. Outcome: Ongoing [facility]01-05-2023 Note* Plan of Care - Madelyn Salvador RN - 04/03/2022 1:17 AM EST Problem: Patient Care Overview Goal: Plan of Care Review Outcome: Ongoing Goal: Individualization & Mutuality Outcome: Ongoing Goal: Discharge Needs Assessment Outcome: Ongoing Goal: Interdisciplinary Rounds/Family Conf Outcome: Ongoing Problem: Mobility, Physical Impaired (Adult) Goal: Identify Related Risk Factors and Signs and Symptoms Description: Related risk factors and signs and symptoms are identified upon initiation of Human Response Clinical Practice Guideline (CPG) Outcome: Ongoing Goal: Enhanced Mobility Skills Description: Patient will demonstrate the desired outcomes by discharge/transition of care. Outcome: Ongoing Goal: Enhanced Functionality Ability Description: Patient will demonstrate the desired outcomes by discharge/transition of care. Outcome: Ongoing Goal: Identify Related Risk Factors and Signs and Symptoms Description: Related risk factors and signs and symptoms are identified upon initiation of Human Response Clinical Practice Guideline (CPG) Outcome: Ongoing Goal: Enhanced Mobility Skills Description: Patient will demonstrate the desired outcomes by discharge/transition of care. Outcome: Ongoing Goal: Enhanced Functionality Ability Description: Patient will demonstrate the desired outcomes by discharge/transition of care. Outcome: Ongoing Problem: Fall/Trauma/Injury Risk (Adult) Goal: Fall/Trauma/Injury Risk: Absence of Trauma/Injury/Falls Description: Patient will demonstrate the desired outcomes. Outcome: Ongoing Goal: Knowledge of risk factors/behavior modification Description: Knowledge of risk factors/behavior modification for fall/injury prevention Outcome: Ongoing Problem: Cardiac: ACS (Acute Coronary Syndrome) (Adult) Goal: Signs and Symptoms of Listed Potential Problems Will be Absent, Minimized or Managed (Cardiac: ACS) Description: Signs and symptoms of listed potential problems will be absent, minimized or managed by discharge/transition of care (reference Cardiac: ACS (Acute Coronary Syndrome) (Adult) CPG). Outcome: Ongoing Problem: Pain, Acute (Adult) Goal: Identify Related Risk Factors and Signs and Symptoms Description: Related risk factors and signs and symptoms are identified upon initiation of Human Response Clinical Practice Guideline (CPG) Outcome: Ongoing Goal: Acceptable Pain Control/Comfort Level Description: Patient will demonstrate the desired outcomes by discharge/transition of care. Outcome: Ongoing [facility] Discharge instructions* Discharge Instructions* John Razo RN - 04/02/2022 9:07 AM EST Images from the original note were not included. For more information about Heart Failure please visit this link for an online interactive workbook or QR code below: [email or web address] * Attachments The following attachments cannot be sent through Care Everywhere. * Stent: How to Protect ([facility]) (Mongolian) documented in this [facility]* Nursing Notes - Digna Cardenas RN - 04/01/2022 6:42 PM EST 1835: Assessed pts R groin site and noticed increased oozing/hardened area. Following page sent to ACS resident, 9940 Natalia: Right groin site oozing increased, slight hardness near the top of incision. Any orders? Thanks Digna [id number] 1848: ACS resident at bedside. 1902: ACS resident holding manual pressure at bedside. [facility]01-03-2023 Note* Plan of Care - Digna Cardenas RN - 04/01/2022 5:57 PM EST Problem: Patient Care Overview Goal: Individualization & Mutuality Outcome: Met This Shift Problem: Mobility, Physical Impaired (Adult) Goal: Identify Related Risk Factors and Signs and Symptoms Description: Related risk factors and signs and symptoms are identified upon initiation of Human Response Clinical Practice Guideline (CPG) Outcome: Met This Shift Goal: Identify Related Risk Factors and Signs and Symptoms Description: Related risk factors and signs and symptoms are identified upon initiation of Human Response Clinical Practice Guideline (CPG) Outcome: Met This Shift Problem: Patient Care Overview Goal: Plan of Care Review Outcome: Ongoing Goal: Discharge Needs Assessment Outcome: Ongoing Goal: Interdisciplinary Rounds/Family Conf Outcome: Ongoing Problem: Mobility, Physical Impaired (Adult) Goal: Enhanced Mobility Skills Description: Patient will demonstrate the desired outcomes by discharge/transition of care. Outcome: Ongoing Goal: Enhanced Mobility Skills Description: Patient will demonstrate the desired outcomes by discharge/transition of care. Outcome: Ongoing Goal: Enhanced Functionality Ability Description: Patient will demonstrate the desired outcomes by discharge/transition of care. Outcome: Ongoing [facility]01-03-2023 Note* Brief Op Note - Tito Bartholomew MD - 04/01/2022 2:56 PM EST Preliminary Report - Brief Cardiac Catheterization Procedure Note Finesse Prather ([id number]) Pre Procedural Diagnosis Coronary artery disease involving yocha dehe coronary artery of yocha dehe heart with unstable angina pectoris [I25.110] NSTEMI (non-ST elevated myocardial infarction) [I21.4] Post Procedural Diagnosis Stented coronary artery Procedure Performed Coronary angiogram and Percutaneous coronary intervention Access Site/Hemostasis Right femoral artery, Perclose Findings Left Ventricular End Diastolic Pressure: Not assessed Left Ventricular Ejection Fraction: Not assessed Preliminary Results of Angiography Obstructive CAD Percutaneous Coronary Intervention Drug eluting stent, left anterior descending, Number of Stents 2 Intraprocedure Anticoagulation Heparin Post-procedure Anticoagulation Anticoagulation to be restarted: No Estimated Blood Loss Minimal Complications None Admission Does patient need to be admitted: Currently admitted Surgeon Surgeon(s) and Role: * Eder Jaime Jr., MD - Primary * Tito Bartholomew MD - Fellow Procedural Staff Cane Flume Chute Operator: Mira Caban RN; Ralf Martin, FRANCISCO; Pelon Gilliam, FRANCISCO Documenter: Kathy Barbour RN Full report to follow Tito Bartholomew MD April 01, 2022 2:56 PM [facility]01-03-2023 Note* Nursing Notes - Maty Latham RN - 04/01/2022 6:02 AM EST 5040 Natalia: awoke with chest pain and bilateral arm numbness. Titrating Nitro Gtt, currently at 30mcg/hr, c/o SOB on 2LNC 97% B/P 140/64. Maty SINGH [id number] Copy of text page sent to MD ping pong table assembler for RH service, await response. 0615: 5040 Natalia: Nitro gtt @50mcg/min, chest pain resolving, b/p 129/61 HR 86. Son, who is POA isat bedside and has questions/concerns hed like to address with MD. Maty SINGH [id number], copy of text page sent to MD ping pong table assembler for RH service. . [facility]01-03-2023 Note* Plan of Care - Maty Latham RN - 04/01/2022 12:39 AM EST Problem: Patient Care Overview Goal: Plan of Care Review Outcome: Ongoing Goal: Individualization & Mutuality Outcome: Ongoing Goal: Discharge Needs Assessment Outcome: Ongoing Problem: Mobility, Physical Impaired (Adult) Goal: Identify Related Risk Factors and Signs and Symptoms Description: Related risk factors and signs and symptoms are identified upon initiation of Human Response Clinical Practice Guideline (CPG) Outcome: Ongoing Goal: Enhanced Mobility Skills Description: Patient will demonstrate the desired outcomes by discharge/transition of care. Outcome: Ongoing Goal: Enhanced Functionality Ability Description: Patient will demonstrate the desired outcomes by discharge/transition of care. Outcome: Ongoing Problem: Fall/Trauma/Injury Risk (Adult) Goal: Fall/Trauma/Injury Risk: Absence of Trauma/Injury/Falls Description: Patient will demonstrate the desired outcomes. Outcome: Ongoing Goal: Knowledge of risk factors/behavior modification Description: Knowledge of risk factors/behavior modification for fall/injury prevention Outcome: Ongoing Problem: Cardiac: ACS (Acute Coronary Syndrome) (Adult) Goal: Signs and Symptoms of Listed Potential Problems Will be Absent, Minimized or Managed (Cardiac: ACS) Description: Signs and symptoms of listed potential problems will be absent, minimized or managed by discharge/transition of care (reference Cardiac: ACS (Acute Coronary Syndrome) (Adult) CPG). Outcome: Ongoing [facility]01-02-2023 Consult note* Trav Ray, DDS - 03/31/2022 6:11 PM ESTAssociated Order(s): IP CONSULT TO DENTISTRY Finesse Prather is a 87 y.o. female, who presented with progressive shortness of breath, chest pressure on exertion and found to have hypoxic respiratory failure secondary to pulmonary edema and found to have worsening CAD and Aortic Stenosis . Dentistry was consulted regarding pre-op consult for TAVR or open heart valve replacement. Past Medical History: Diagnosis Date Aortic stenosis CAD (coronary artery disease) Carotid stenosis Diabetes mellitus type 2, noninsulin dependent On metformin Heart failure HLD (hyperlipidemia) PAD (peripheral artery disease) Presence of stent in coronary artery TIA (transient ischemic attack) Past Surgical History: Procedure Laterality Date ENDARTERECTOMY CAROTID SUBCLAVIAN VERTEBRAL Right 05/05/2017 ENDARTERECTOMY CAROTID SUBCLAVIAN VERTEBRAL Left 2011 HYSTERECTOMY Current Facility-Administered Medications: aspirin chewable tablet 81 mg, 81 mg, Oral, Daily, Tanya Hylton MD, 81 mg at 03/31/22 0938 Clopidogrel (PLAVIX) tablet 75 mg, 75 mg, Oral, Daily, Tanya Hylton MD, 75 mg at 03/31/22 0938 Insulin lispro (HUMALOG) injection, , Subcutaneous, 4x daily w/meals, HS, 8 Units at 03/31/22 1726 AND Insulin lispro (HUMALOG) injection, , Subcutaneous, PRN AND BLOOD GLUCOSE (POC DEVICE), , , 4x Daily AC + HS AND BLOOD GLUCOSE (POC DEVICE), , , UD AND COMMUNICATION ORDER FOR NURSI NG CARE: For Blood Glucose LESS THAN 80 mg/dl, , , Continuous AND Dextrose 50% injection 7.5-25g, 7.5-25 g, Intravenous, As directed PRN AND glucose (GLUTOSE) 40 % oral gel 1-2 Tube, 1-2 Tube, Oral, As directed PRN AND NOTIFY PHYSICIAN, Blood Glucose LESS THAN 80 mg/dl, , , Continuous AND Carbohydrate counts with meals, , , Continuous, Sabas Petersen MD ezetimibe (ZETIA) 10 mg, 10 mg, Oral, Daily, Tanya Hylton MD, 10 mg at 03/31/22 0959 furOSEmide (LASIX) tablet 20 mg, 20 mg, Oral, Daily, Tanya Hylton MD, 20 mg at 03/31/22 0939 heparin 25,000 units in dextrose 5% 250 mL premix infusion, 0-30 Units/kg/hr (Dosing Weight), Intravenous, Continuous, Henrique Petersen MD, Last Rate: 10.8 mL/hr at 03/31/22 1456, 18 Units/kg/hr at 03/31/22 1456 hydrALAZINE (APRESOLINE) injection 5 mg, 5 mg, Intravenous, Q6H PRN, Sabas Petersen MD, 5 mg at 03/31/22 0004 isosorbide mononitrate (IMDUR) tablet XL 60 mg, 60 mg, Oral, Daily, Sabas Petersen MD, 60 mg at 03/31/22 0938 Lisinopril (PRINIVIL) tablet 10 mg, 10 mg, Oral, BID, Ele Saavedra MD, 10 mg at 03/31/22 0938 magnesium oxide (MAG-OX) tablet 800 mg, 800 mg, Oral, As directed PRN OR magnesium oxide (MAG-OX) tablet 800 mg, 800 mg, Per NG tube, As directed PRN OR Magnesium Sulfate 4 g in sterile water50 ml premix IVPB, 4 g, Intravenous, As directed PRN, Tanya Hylton MD Metoprolol (LOPRESSOR) tablet 25 mg, 25 mg, Oral, Q12H, Tanya Hylton MD, 25 mg at 03/31/22 0939 Multivitamin w/ minerals (THERAPEUTIC-M) tablet 1 tablet, 1 tablet, Oral, Daily, Tanya Hylton MD, 1 tablet at 03/31/22 0938 nitroGLYCERIN (NITROSTAT) tablet SL 0.4 mg, 0.4 mg, Sublingual, Q5 MIN PRN, Tanya Hylton MD, 0.4 mg at 03/30/22 1817 nitroGLYCERIN in dextrose 5% 50 mg/250 ml premix infusion, 0-100 mcg/min, Intravenous, Continuous, Sabas Petersen MD, Stopped at 03/31/22 1420 Potassium chloride (K-DUR) tablet ER 40-60 mEq, 40-60 mEq, Oral, As directed PRN, 40 mEq at 03/29/22 0638 OR Potassium Bicarb-Citric Acid (Effer-K) 20 MEQ effervescent tablets for oral solution 40-60 mEq, 40-60 mEq, Per NG tube, As directed PRN, Tanya Hylton MD Sertraline (ZOLOFT) tablet 25 mg, 25 mg, Oral, Daily, Tanya Hylton MD, 25 mg at 03/31/22 0938 Sodium chloride 0.9% IV solution 250 mL, 250 mL, Intravenous, PRN, Tanya Hylton MD Allergies Allergen Reactions Statins Muscle Spasm and Pain Family History Problem Relation Age of Onset Cancer Mother Stroke Mother Myocardial Infarction Father 80 Hypertension Father Coronary Artery Disease Father Diabetes Sister Stroke Sister 66 Social History Socioeconomic History Marital status: Spouse name: Earl Prather Number of children: 10 Years of education: Not on file Highest education level: Not on file Occupational History Not on file Tobacco Use Smoking status: Never Smokeless tobacco: Never Vaping Use Vaping Use: Never used Substance and Sexual Activity Alcohol use: Never Drug use: Never Sexual activity: Not on file Other Topics Concern Service No Blood Transfusions No Caffeine Concern No Occupational Exposure No Hobby Hazards No Sleep Concern No Stress Concern No Weight Concern No Special Diet No Back Care No Exercise No Bike Helmet No Seat Belt No Domestic Violence No Social History Narrative Not on file Social Determinants of Health Financial Resource Strain: Not on file Food Insecurity: Not on file Transportation Needs: Not on file Physical Activity: Not on file Stress: Not on file Social Connections: Not on file Intimate Partner Violence: Not on file Housing Stability: Not on file Extraoral Exam: The patient was awake, alert and oriented for exam. The head and neck appear symmetrical. The cervical lymph nodes are non-palpable and non- tender. The skin is warm and dry. The lips are moist with a clear vermilion border and are without lesions. No pops or clicks were noted in theTMJ. No extraoral signs or symptoms of odontogenic infection present at time of exam. Intraoral Exam: Overall the teeth are in fair to poor condition; there are 13 teeth remaining. Patient has a maxillary Valplast removable partial denture and remaining teeth have significant staining. No soft tissue lesions or swellings were noted at time of exam. Poor salivary flow, and no lesionsseen on tongue. Class II mobility noted on upper right canine #6, but not on remaining dentition. Multiple restorations present throughout dentition. Oral hygiene is fair. The gingiva has some slighterythema. No broken fillings, or gross caries noted. No intraoral swellings, signs of infection, ortrismus present at time of clinical exam. Valplast partial denture is loose on maxillary arch. Radiographic Exam: Panorex taken. Maxillary sinuses have area of radiopacity near nasal septum towards midline - dx diagnosis santral pseudocyst. Sinuses are well pneumatized. TMJ condyles are rounded and symmetrical. Patient is missing #1. #2, #4, #5, #7-#13, #15-#18, #28-#32. Significant bone loss throughout maxilla and mandible. No areas of gross decay, abcesses, fractures, impacted teeth, root canals, or dental implants noted. Assessment & Plan: - Patient is being consulted for pre-op open heart valve replacement surgery or TAVR. - Patient has 13 teeth remaining with no signs of gross decay, swelling or infection. Patient is currently not in dental pain and wears a maxillary removable partial denture. - Radiopacity seen on sinuses around nasal septum. Diff dx - antral pseudocyst and no tx needed. - Patient has significant bone loss throughout maxilla and mandible: Dx. 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 Recommend patient get dental care after discharge to treat upper right canine (#6 Class II mobility). Patients removable prostheses has retention on upper right canine (#6) and final tr eatment plan needs addressed before treatment of #6. Tooth prognosis is fair to poor, but with proper care can be treated. Plan patient to return to regular dentist for follow-up or become a patient at [facility] dental clinic once discharged. Patient would most likely treat tooth #6 or elect to extract remaining maxillary teeth and replace with complete dentures. Extractions recommended: none at the moment. Patient is cleared from a dental standpoint. If patient stability dictates that heart surgery be completed before tooth is extracted, recommend proceeding with surgery and having tooth extracted on outpatient basis. These extractions can be done in the [facility] as an inpatient service. These extractions will be done under local anesthesia and the patient does not need to be NPO. Dental treatment will be done WITHOUT any type of sedation. If patient is anticoagulated on the day of appointment, please ensure platelets levels are above 50K/uL, INR is below 2.5, and that any Heparin is held 4 hours prior to dental appointment. If patient is anticoagulated with Lovenox, please hold for 12/24 hours prior to the dental appointment. If patient is being transported with active telemetry (EKG) and/or if patient cannot transfer from transport bed/wheelchair to dental chair, please notify [facility] dental clinic in advance of appointment. Please call [phone] to schedule this appointment during normal business hours (M-F 7:30-4:30 pm) with the dental clinic. Due to the large number of phone calls the clinic is currently receiving,please leave a message at this number. Clinic staff [facility] Transportation to our clinic should also be arranged. Treatment will take an estimated time of 2 hours. Thank you for involving us in the care of this patient. Please do not hesitate to call me at [phone] you have any questions. Pager ID:[phone] Dr. Ramon [address] with Dr. Vargas [facility]01-02-2023 Consult note* Trav Ray DDS - 03/31/2022 6:11 PM ESTAssociated Order(s): IP CONSULT TO DENTISTRY Finesse Prather is a 87 y.o. female, who presented with progressive shortness of breath, chest pressure on exertion and found to have hypoxic respiratory failure secondary to pulmonary edema and found to have worsening CAD and Aortic Stenosis . Dentistry was consulted regarding pre-op consult for TAVR or open heart valve replacement. Past Medical History: Diagnosis Date Aortic stenosis CAD (coronary artery disease) Carotid stenosis Diabetes mellitus type 2, noninsulin dependent On metformin Heart failure HLD (hyperlipidemia) PAD (peripheral artery disease) Presence of stent in coronary artery TIA (transient ischemic attack) Past Surgical History: Procedure Laterality Date ENDARTERECTOMY CAROTID SUBCLAVIAN VERTEBRAL Right 05/05/2017 ENDARTERECTOMY CAROTID SUBCLAVIAN VERTEBRAL Left 2010 HYSTERECTOMY Current Facility-Administered Medications: aspirin chewable tablet 81 mg, 81 mg, Oral, Daily, Tanya Hylton MD, 81 mg at 03/31/22 0938 Clopidogrel (PLAVIX) tablet 75 mg, 75 mg, Oral, Daily, Tanya Hylton MD, 75 mg at 03/31/22 0938 Insulin lispro (HUMALOG) injection, , Subcutaneous, 4x daily w/meals, HS, 8 Units at 03/31/22 1726 AND Insulin lispro (HUMALOG) injection, , Subcutaneous, PRN AND BLOOD GLUCOSE (POC DEVICE), , , 4x Daily AC + HS AND BLOOD GLUCOSE (POC DEVICE), , , UD AND COMMUNICATION [facility]: For Blood Glucose LESS THAN 80 mg/dl, , , Continuous AND Dextrose 50% injection 7.5-25g, 7.5-25 g, Intravenous, As directed PRN AND glucose (GLUTOSE) 40 % oral gel 1-2 Tube, 1-2 Tube, Oral, As directed PRN AND NOTIFY PHYSICIAN, Blood Glucose LESS THAN 80 mg/dl, , , Continuous AND Carbohydrate counts with meals, , , Continuous, Sabas Petersen MD ezetimibe (ZETIA) 10 mg, 10 mg, Oral, Daily, Tanya Hylton MD, 10 mg at 03/31/22 0959 furOSEmide (LASIX) tablet 20 mg, 20 mg, Oral, Daily, Tanya Hylton MD, 20 mg at 03/31/22 0939 heparin 25,000 units in dextrose 5% 250 mL premix infusion, 0-30 Units/kg/hr (Dosing Weight), Intravenous, Continuous, Henrique Petersen MD, Last Rate: 10.8 mL/hr at 03/31/22 1456, 18 Units/kg/hr at 03/31/22 1456 hydrALAZINE (APRESOLINE) injection 5 mg, 5 mg, Intravenous, Q6H PRN, Sabas Petersen MD, 5 mg at 03/31/22 0004 isosorbide mononitrate (IMDUR) tablet XL 60 mg, 60 mg, Oral, Daily, Sabas Petersen MD, 60 mg at 03/31/22 0938 Lisinopril (PRINIVIL) tablet 10 mg, 10 mg, Oral, BID, Ele Saavedra MD, 10 mg at 03/31/22 0938 magnesium oxide (MAG-OX) tablet 800 mg, 800 mg, Oral, As directed PRN OR magnesium oxide (MAG-OX) tablet 800 mg, 800 mg, Per NG tube, As directed PRN OR Magnesium Sulfate 4 g in sterile water50 ml premix IVPB, 4 g, Intravenous, As directed PRN, Tanya Hylton MD Metoprolol (LOPRESSOR) tablet 25 mg, 25 mg, Oral, Q12H, Tanya Hylton MD, 25 mg at 03/31/22 0939 Multivitamin w/ minerals (THERAPEUTIC-M) tablet 1 tablet, 1 tablet, Oral, Daily, Tanya Hylton MD, 1 tablet at 03/31/22 0938 nitroGLYCERIN (NITROSTAT) tablet SL 0.4 mg, 0.4 mg, Sublingual, Q5 MIN PRN, Tanya Hylton MD, 0.4 mg at 03/30/22 1817 nitroGLYCERIN in dextrose 5% 50 mg/250 ml premix infusion, 0-100 mcg/min, Intravenous, Continuous, Sabas Petersen MD, Stopped at 03/31/22 1420 Potassium chloride (K-DUR) tablet ER 40-60 mEq, 40-60 mEq, Oral, As directed PRN, 40 mEq at 03/29/22 0638 OR Potassium Bicarb-Citric Acid (Effer-K) 20 MEQ effervescent tablets for oral solution 40-60 mEq, 40-60 mEq, Per NG tube, As directed PRN, Tanya Hylton MD Sertraline (ZOLOFT) tablet 25 mg, 25 mg, Oral, Daily, Tanya Hylton MD, 25 mg at 03/31/22 0938 Sodium chloride 0.9% IV solution 250 mL, 250 mL, Intravenous, PRN, Tanya Hylton MD Allergies Allergen Reactions Statins Muscle Spasm and Pain Family History Problem Relation Age of Onset Cancer Mother Stroke Mother Myocardial Infarction Father 80 Hypertension Father Coronary Artery Disease Father Diabetes Sister Stroke Sister 66 Social History Socioeconomic History Marital status: Spouse name: Earl Prather Number of children: 10 Years of education: Not on file Highest education level: Not on file Occupational History Not on file Tobacco Use Smoking status: Never Smokeless tobacco: Never Vaping Use Vaping Use: Never used Substance and Sexual Activity Alcohol use: Never Drug use: Never Sexual activity: Not on file Other Topics Concern Service No Blood Transfusions No Caffeine Concern No Occupational Exposure No Hobby Hazards No Sleep Concern No Stress Concern No Weight Concern No Special Diet No Back Care No Exercise No Bike Helmet No Seat Belt No Domestic Violence No Social History Narrative Not on file Social Determinants of Health Financial Resource Strain: Not on file Food Insecurity: Not on file Transportation Needs: Not on file Physical Activity: Not on file Stress: Not on file Social Connections: Not on file Intimate Partner Violence: Not on file Housing Stability: Not on file Extraoral Exam: The patient was awake, alert and oriented for exam. The head and neck appear symmetrical. The cervical lymph nodes are non-palpable and non- tender. The skin is warm and dry. The lips are moist with a clear vermilion border and are without lesions. No pops or clicks were noted in theTMJ. No extraoral signs or symptoms of odontogenic infection present at time of exam. Intraoral Exam: Overall the teeth are in fair to poor condition; there are 13 teeth remaining. Patient has a maxillary Valplast removable partial denture and remaining teeth have significant staining. No soft tissue lesions or swellings were noted at time of exam. Poor salivary flow, and no lesionsseen on tongue. Class II mobility noted on upper right canine #6, but not on remaining dentition. Multiple restorations present throughout dentition. Oral hygiene is fair. The gingiva has some slighterythema. No broken fillings, or gross caries noted. No intraoral swellings, signs of infection, ortrismus present at time of clinical exam. Valplast partial denture is loose on maxillary arch. Radiographic Exam: Panorex taken. Maxillary sinuses have area of radiopacity near nasal septum towards midline - dx diagnosis santral pseudocyst. Sinuses are well pneumatized. TMJ condyles are rounded and symmetrical. Patient is missing #1. #2, #4, #5, #7-#13, #15-#18, #28-#32. Significant bone loss throughout maxilla and mandible. No areas of gross decay, abcesses, fractures, impacted teeth, root canals, or dental implants noted. Assessment & Plan: - Patient is being consulted for pre-op open heart valve replacement surgery or TAVR. - Patient has 13 teeth remaining with no signs of gross decay, swelling or infection. Patient is currently not in dental pain and wears a maxillary removable partial denture. - Radiopacity seen on sinuses around nasal septum. Diff dx - antral pseudocyst and no tx needed. - Patient has significant bone loss throughout maxilla and mandible: Dx. 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 Recommend patient get dental care after discharge to treat upper right canine (#6 Class II mobility). Patients removable prostheses has retention on upper right canine (#6) and final tr eatment plan needs addressed before treatment of #6. Tooth prognosis is fair to poor, but with proper care can be treated. Plan patient to return to regular dentist for follow-up or become a patient at [facility] dental clinic once discharged. Patient would most likely treat tooth #6 or elect to extract remaining maxillary teeth and replace with complete dentures. Extractions recommended: none at the moment. Patient is cleared from a dental standpoint. If patient stability dictates that heart surgery be completed before tooth is extracted, recommend proceeding with surgery and having tooth extracted on outpatient basis. These extractions can be done in the [facility] as an inpatient service. These extractions will be done under local anesthesia and the patient does not need to be NPO. Dental treatment will be done WITHOUT any type of sedation. If patient is anticoagulated on the day of appointment, please ensure platelets levels are above 50K/uL, INR is below 2.5, and that any Heparin is held 4 hours prior to dental appointment. If patient is anticoagulated with Lovenox, please hold for 12/24 hours prior to the dental appointment. If patient is being transported with active telemetry (EKG) and/or if patient cannot transfer from transport bed/wheelchair to dental chair, please notify [facility] dental clinic in advance of appointment. Please call [phone] to schedule this appointment during normal business hours (M-F 7:30-4:30 pm) with the dental clinic. Due to the large number of phone calls the clinic is currently receiving,please leave a message at this number. Clinic staff will return the call to schedule the patient inthe [facility] clinic. Transportation to our clinic should also be arranged. Treatment will take an estimated time of 2 hours. Thank you for involving us in the care of this patient. Please do not hesitate to call me at [phone] you have any questions. Pager ID:[phone] Dr. Ramon [address] with Dr. Vargas * Tito Bartholomew MD - 03/31/2022 2:36 PM ESTAssociated Order(s): IP CONSULT TO STRUCTURAL HEART STRUCTURAL HEART CONSULT Patient Name: Finesse Prather Date of Consult: 03/31/2022 Reason for Consultation: evaluation for aortic stenosis and obstructive CAD ASSESSMENT AND PLAN: In summary, she is a 87 y.o. female with a history of aortic stenosis, coronary artery disease, carotid stenosis complicated by TIA s/p carotid endarterectomy, type 2 diabetes, peripheral arterial disease, mild mitral stenosis and regurgitation, hypertension, hyperlipidemia, diastolic heart failurefor whom we are consulted for assistance with managing aortic stenosis and obstructive CAD. CARDIAC PROBLEM LIST 1. Aortic stenosis, moderate to severe on outside imaging 2. Coronary artery disease, multivessel, obstructive 3. Acute on chronic diastolic heart failure 4. Non-ST elevation myocardial infarction 5. Carotid stenosis 6. Peripheral arterial disease 7. Hypertension 8. Hyperlipidemia RECOMMENDATION 1. Given ongoing chest pain requiring nitroglycerin infusion will proceed with high risk PCI to LAD+/- RCA today. Ideally, would intervene on Circumflex and possibly left main as well, however risk prohibitive in the setting of severe, multivessel, calcified disease and severe aortic stenosis. Discussed risk of limited PCI with patient and her family members at bedside. Emphasized high risk of serious complication. They acknowledged risk and asked that we proceed. 2. She likely has severe aortic stenosis given reported aortic valve area of <1 cm2 on outside echocardiogram, however I cannot see that full report. She is symptomatic with angina and heart failure. I have expedited an echocardiogram here. Assuming her echocardiogram confirms severe aortic stenosis she would benefit from valve replacement if deemed a candidate to both improve symptoms and prolong her life. 3. Please obtain the below studies if not already done. 4. When work up complete will plan sequence of interventions. Pulmonary Function Tests with spirometry and bronchodilator Carotid Ultrasound CT Angiogram of the Chest, Abdomen, & Pelvis (CT TAVR) -- Plan to obtain likely given anticipated contrast load today with heart cath. Panorex and Dental clearance (unless patient is edentulous) Thank you for the consult and please do not hesitate to contact us with any questions or concerns. Christie Bartholomew MD Interventional [employer] Cardiac testing: Cath Results 03/21/22 (outside institution): Left main is calcified with extension of calcification into the LAD and left Circ Mid LAD severe disease of 90% stenosis D1 has a proximal 90% stenosis Ostial circumflex had 90% extension in hi OM1 branch RCA in stent stenosis 30% Distal RCA had 80% stenosis Transthoracic echocardiogram (outside institution, date unclear) EF 65%; Left atrium is mildly enlarged Moderate mitral annular calcification Extension of the mitral annular calcification into the base of the posterior mitral valve leaflet The mitral valve chordae are thickened and/or calcified Mild valve stenosis with mild insufficiency Trivial tricuspid valve stenosis Moderate to severe calcific aortic valve stenosis with an area of 0.5 cm2 Trivial aortic valve insufficieny Trivial pulmonic valve insufficiency RVSP 32 mmHg Diastolic function is indeterminate HISTORY: It was my pleasure to see . Finesse Prather in consultation at the [facility] on 03/31/2022 for evaluation of her aortic stenosis and obstructive CAD. She is a pleasant 87 y.o. female with a history of aortic stenosis, coronary artery disease, carotid stenosis complicated by TIA s/p carotid endarterectomy, type 2 diabetes, peripheral arterial disease, mild mitral stenosis and regurgitation, hypertension, hyperlipidemia, diastolic heart failure for whom we are consulted for assistance with managing aortic stenosis and obstructive CAD. She presented to an outside hospital with symptoms of ongoing chest pain and dyspnea late February and was found to be in hypoxic respiratory failure due to pulmonary edema and also have an elevated troponin. She was managed with diuresis with improvement in her respiratory status. She had a work up including a heart catheterization and an echocardiogram as above. She was transferred to [facility] on 03/28/2022 for evaluation for revascularization of coronaries and valve replacement. Since arriving at [facility] she has been transitioned to oral diuretics. She has been evaluated bycardiac surgery and deemed a poor candidate for surgery. She has continued to have intermittent chest pain. She reports that she has been having exertional angina for a few months now that peaked at the as mentioned above. Also with dyspnea and lower extremity edema. She has continued to have intermittent angina since admission that has improved since starting the nitroglycerin drip. However she did have another episode this morning requiring up-titration of the drip. Despite her age and comorbidities she is remarkably functional. She lives with her . She does all of the cooking and cleaning. Prior to developing angina she had a daily walking routine about 1-2 months ago. PAST MEDICAL HISTORY: - Aortic stenosis - Mild mitral stenosis - Mild mitral regurgitation - Diastolic heart failure - Coronary artery disease - Prior TIA - Carotid stenosis s/p bilateral endarterectomy - Hypertension - Hyperlipidemia - Type 2 diabetes - Depression SOCIAL HISTORY She reports that she has never smoked. She has never used smokeless tobacco. She reports that she does not drink alcohol and does not use drugs. FAMILY HISTORY Her family history includes Cancer in her mother; Coronary Artery Disease in her father; Diabetes in her sister; Hypertension in her father; Myocardial Infarction (age of onset: 80) in her father; Stroke in her mother; Stroke (age of onset: 66) in her sister. PAST MEDICAL HISTORY She has a past medical history of Aortic stenosis, CAD (coronary artery disease), Carotid stenosis,Diabetes mellitus type 2, noninsulin dependent, Heart failure, HLD (hyperlipidemia), PAD (peripheral artery disease), Presence of stent in coronary artery, and TIA (transient ischemic attack). PAST SURGICAL HISTORY Her has a past surgical history that includes hysterectomy; endarterectomy carotid subclavian vertebral (Left, 2010); and endarterectomy carotid subclavian vertebral (Right, 05/05/2017). ALLERGIES Allergies Allergen Reactions Statins Muscle Spasm and Pain HOME MEDICATIONS Medications Prior to Admission Medication Sig Dispense Refill Last Dose aspirin 81 MG Chew Tab chewable tablet Chew 81 mg daily. Clopidogrel 75 MG tablet Take 75 mg by mouth daily. ezetimibe 10 MG tablet Take 10 mg by mouth daily. isosorbide mononitrate 30 MG Tab SR 24 HR tablet XL Take 30 mg by mouth daily every morning. Lisinopril 5 MG tablet Take 5 mg by mouth 2 times daily. metFORMIN 500 MG tablet Take 500 mg by mouth 2 times daily with meals. Metoprolol 25 MG tab regular release Take 25 mg by mouth 2 times daily. Multivitamin w/ minerals tablet Take 1 tablet by mouth daily. nitroGLYCERIN 0.[address] 0.4 mg under tongue every 5 minutes as needed for Chest pain. max = 3 doses. If CP persists after 1st dose, call 911 [id number] (CHNL) 250-2.5-0.5 MG capsule Take 1 capsule by mouth 2 times daily. Sertraline 25 MG tablet Take 25 mg by mouth daily. CURRENT MEDICATIONS aspirin 81 mg Oral Daily Clopidogrel 75 mg Oral Daily ezetimibe 10 mg Oral Daily furOSEmide 20 mg Oral Daily Insulin lispro Subcutaneous 4x daily w/meals, HS isosorbide mononitrate 60 mg Oral Daily Lisinopril 10 mg Oral BID Metoprolol 25 mg Oral Q12H Multivitamin w/ minerals 1 tablet Oral Daily Sertraline 25 mg Oral Daily heparin infusion 16 Units/kg/hr (03/31/22911) nitroGLYCERIN infusion 20 mcg/min (03/31/22938) REVIEW OF SYSTEMS: A full review of systems was preformed and was negative unless otherwise noted. Cardiac: +chest pain, no palpitations Respiratory: + dyspnea on exertion, no orthopnea, no PND Neuro: +weakness, no syncope General: no fevers, no chills Head: No headache Eyes: No blurry vision Ears: No hearing loss, Nose/mouth: No rhinorrhea, no congestion GI: No abdominal pain Gu: No dysuria Musculoskeletal: no joint pain Heme: No bleeding or bruising Skin: No rash, no jaundice PHYSICAL EXAM: Intake/Output Summary (Last 24 hours) at 03/31/2022 1436 Last data filed at 03/31/2022 1229 Gross per 24 hour Intake 924.48 ml Output 1300 ml Net -375.52 ml Temp: [97.4 F (36.3 C)-98.4 F (36.9 C)] 97.7 F (36.5 C) Pulse (Heart Rate): [55-81] 61 Resp Rate: [10-42] 18 BP: (85-231)/(42-98) 95/47 O2 Sat (%): [89 %-99 %] 93 % BP 95/47 Pulse 61 Temp 97.7 F (36.5 C) (Oral) Resp 18 Ht 1.499 m (4' 11) Wt 59.7 kg (131lb 9.6 oz) Comment: standing weight SpO2 93% BMI 26.58 kg/m Smoking Status Never General appearance: The patient is alert, oriented, and in no distress. Heent: No xanthelasma, normal conjunctiva. Extraocular motions are normal. Pupils are equal, round,and reactive to light. Chest: Breath sounds throughout. Clear to auscultation bilaterally. Unlabored effort Heart: Regular rate and rhythm. S1, S2 normal. Loud murmur at RUSB systolic. Abdomen: Soft, non-tender. No rebound or guarding. Bowel sounds normal. No pulsatile masses or organomegaly. Pulses: All pulses 2+ and symmetric. Skin: Skin color, texture, turgor normal. No rashes or lesions. DATA REVIEWED: Lab Results Component Value Date SODIUM 139 03/31/2022 SODIUM 138 10/12/2010 SODIUM 138 10/11/2010 POTASSIUM 4.3 03/31/2022 POTASSIUM 4.5 10/12/2010 POTASSIUM 3.7 10/11/2010 GLUCOSE 120 (H) 03/31/2022 GLUCOSE 132 (H) 10/12/2010 CHLORIDE 105 03/31/2022 CHLORIDE 106 10/12/2010 CO2 27 03/31/2022 CO2 25 10/12/2010 BUN 26 (H) 03/31/2022 BUN 12 10/12/2010 CREATSERUM 0.69 03/31/2022 CREATSERUM 0.76 10/12/2010 Lab Results Component Value Date WBC 7.07 03/29/2022 WBC 9.4 10/12/2010 HGB 12.0 03/29/2022 HGB 12.1 10/12/2010 HCT 36.3 03/29/2022 HCT 36.0 10/12/2010 HCT 41 10/11/2010 PLATELET 233 03/29/2022 PLATELET 204 10/12/2010 MCV 86.4 03/29/2022 MCV 87.1 10/12/2010 No results found for: TROP, BNP * Shelly Thomas MD - 03/29/2022 12:19 PM ESTAssociated Order(s): IP CONSULT TO SURGERY - CARDIAC CARDIAC SURGERY CONSULT NOTE Reason for Consult: aortic stenosis/coronary artery disease Ms. Prather is a 87 y.o. female who with CAD s/p stents (), PAD, carotid stenosis with TIA s/p bilateral endarterectomy (L 2010, R 2017), HTN, HLD, DM who presented with chest pain and dyspnea, found to have NSTEMI. Has had few weeks of shortness of breath and occasional chest tightness. Was at a friend's when she had worsening shortness of breath and medic was called. She was taken to outside hospital and found to be hypoxic, which improved with IV diuresis. She underwent LHC at outside hospital showing multivessel disease and echo showing severe aortic stenosis and was transferred here. Here, she denies chest pain or shortness of breath. Lives with her (who has hospice care) and her child. She is able to complete ADLs at home on her own, although her grandkids do help her once a week with house duties. 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 REVIEW OF SYSTEMS Full review of systems performed. All others are negative except as indicated in HPI. RELEVANT INFORMATION Past Medical History: Diagnosis Date Aortic stenosis CAD (coronary artery disease) Carotid stenosis Diabetes mellitus type 2, noninsulin dependent On metformin Heart failure HLD (hyperlipidemia) PAD (peripheral artery disease) Presence of stent in coronary artery TIA (transient ischemic attack) Past Surgical History: Procedure Laterality Date ENDARTERECTOMY CAROTID SUBCLAVIAN VERTEBRAL Right 05/05/2017 ENDARTERECTOMY CAROTID SUBCLAVIAN VERTEBRAL Left 2010 HYSTERECTOMY Family History Problem Relation Age of Onset Cancer Mother Stroke Mother Myocardial Infarction Father 80 Hypertension Father Coronary Artery Disease Father Diabetes Sister Stroke Sister 66 Social History reports that she has never smoked. She has never used smokeless tobacco. She reports that she does not drink alcohol and does not use drugs. Social History Tobacco Use Smoking Status Never Smokeless Tobacco Never Social History Substance and Sexual Activity Alcohol Use Never Allergies Allergies Allergen Reactions Statins Muscle Spasm and Pain Current Medications Scheduled Meds: aspirin 81 mg Oral Daily Clopidogrel 75 mg Oral Daily enoxaparin 40 mg Subcutaneous Q24H ezetimibe 10 mg Oral Daily furOSEmide 20 mg Oral Daily isosorbide mononitrate 30 mg Oral QAM Lisinopril 5 mg Oral BID Metoprolol 25 mg Oral Q12H Multivitamin w/ minerals 1 tablet Oral Daily Sertraline 25 mg Oral Daily Continuous Infusions: PRN Meds:magnesium oxide OR magnesium oxide OR Magnesium Sulfate IVPB, nitroGLYCERIN, Potassium chloride OR Potassium Bicarb-Citric Acid, Sodium chloride 0.9% DIAGNOSTIC RESULTS Cath Results 03/21/22: Left main is calcified with extension of calcification into the LAD and left Circ Mid LAD severe disease of 90% stenosis D1 has a proximal 90% stenosis Ostial circumflex had 90% extension in hi OM1 branch RCA in stent stenosis 30% Distal RCA had 80% stenosis TTE: EF 65%; Left atrium is mildly enlarged Moderate mitral annular calcification Extension of the mitral annular calcification into the base of the posterior mitral valve leaflet The mitral valve chordae are thickened and/or calcified Mild valve stenosis with mild insufficiency Trivial tricuspid valve stenosis Moderate to severe calcific aortic valve stenosis with an area of 0.5 cm2 Trivial aortic valve insufficieny Trivial pulmonic valve insufficiency RVSP 32 mmHg Diastolic function is indeterminate CXR (03/20/22): Mild degree of CHF with superimposed bibasilar infiltrates worse at the left lung base Labs: Lab Results Component Value Date WBC 7.58 03/29/2022 HGB 13.1 03/29/2022 PLATELET 267 03/29/2022 PTT 28.1 03/29/2022 INR 1.0 03/29/2022 SODIUM 139 03/29/2022 POTASSIUM 4.0 03/29/2022 CHLORIDE 104 03/29/2022 CO2 27 03/29/2022 BUN 32 (H) 03/29/2022 CALCIUM 9.1 03/29/2022 MAGNESIUM 2.1 03/29/2022 PHOSPHORUS 3.9 03/29/2022 AST 24 03/29/2022 ALKPHOS 66 03/29/2022 BILITOTAL 0.4 03/29/2022 BILIDIRECT <0.1 03/29/2022 ALBUMIN 3.6 03/29/2022 Lab Results Component Value Date CREATSERUM 0.75 03/29/2022 PHYSICAL EXAM Physical Exam Vital Signs (24hrs): Blood pressure 119/55, pulse 59, temperature 98.7 F (37.1 C), temperature source Oral, resp. rate 22, height 1.499 m (4' 11), weight 59.7 kg (131 lb 9.6 oz), SpO2 93 %, not currently . Pulmonary/Cardiac Hemodynamics Pulse (Heart Rate): 59 BSA (Calculated - sq m): 1.55 m2 Body mass index is 26.58 kg/m . Intake/Output Summary (Last 24 hours) at 03/29/2022 1219 Last data filed at 03/29/2022 1146 Gross per 24 hour Intake 250 ml Output 450 ml Net -200 ml Wt Readings from Last 3 Encounters: 03/29/22 59.7 kg (131 lb 9.6 oz) General appearance: alert, cooperative, appears stated age Lungs: clear to auscultation bilaterally Heart: regular rate and rhythm, S1, S2 normal, no murmur, click, rub or gallop Abdomen: soft, non-tender. Bowel sounds normal. No masses, no organomegaly Extremities: extremities normal, atraumatic, no cyanosis or edema, Normal ROM. Pulses: 2+ and symmetric Skin: Skin color, texture, turgor normal. No rashes or lesions Neurologic: Grossly normal Psych: appropriate mood and affect for clinical situation ASSESSMENT/PLAN Finesse Prather is a 87 y.o. female who with CAD s/p stents (2017/2017, on plavix), PAD, carotid stenosis with TIA s/p bilateral endarterectomy (L 2010, R 2017), HTN, HLD, DM who presented with chest pain and dyspnea, found to have NSTEMI. [facility] reviewed - reasonable targets for RCA, OM, and LAD however given her age and comorbidities, would favor PCI/TAVR if possible (which is also the patient's preference). RECOMMENDATIONS: We would recommend - CT TAVR protocol - repeat echo here - panorex and dental evaluation - carotid duplex ultrasound This patient was discussed with Dr. Riley Wilson. Thank you for the consult. Please call with any additional questions or concerns. Mary Thmoas MD Department of Surgery [phone] Associated attestation - Riley Wilson MD, PhD - 03/30/2022 9:31 PM EST CARDIAC SURGERY I reviewed and discussed Ms. Prather. She would not benefit from CABG/SAVR and she is not interestedin open surgery. There may be a role for PCI and possibly staged TAVR. I reviewed her imaging with Dr. Heart and there may be a role for PCI to LAD and RCA. We will repeat her echocardiogram and obtain TAVR CT for planning. [facility] Consult note* Tito Bartholomew MD - 03/31/2022 2:36 PM ESTAssociated Order(s): IP CONSULT TO STRUCTURAL HEART STRUCTURAL HEART CONSULT Patient Name: Finesse Prather Date of Consult: 03/31/2022 Reason for Consultation: evaluation for aortic stenosis and obstructive CAD ASSESSMENT AND PLAN: In summary, she is a 87 y.o. female with a history of aortic stenosis, coronary artery disease, carotid stenosis complicated by TIA s/p carotid endarterectomy, type 2 diabetes, peripheral arterial disease, mild mitral stenosis and regurgitation, hypertension, hyperlipidemia, diastolic heart failurefor whom we are consulted for assistance with managing aortic stenosis and obstructive CAD. CARDIAC PROBLEM LIST 1. Aortic stenosis, moderate to severe on outside imaging 2. Coronary artery disease, multivessel, obstructive 3. Acute on chronic diastolic heart failure 4. Non-ST elevation myocardial infarction 5. Carotid stenosis 6. Peripheral arterial disease 7. Hypertension 8. Hyperlipidemia RECOMMENDATION 1. Given ongoing chest pain requiring nitroglycerin infusion will proceed with high risk PCI to LAD+/- RCA today. Ideally, would intervene on Circumflex and possibly left main as well, however risk prohibitive in the setting of severe, multivessel, calcified disease and severe aortic stenosis. Discussed risk of limited PCI with patient and her family members at bedside. Emphasized high risk of serious complication. They acknowledged risk and asked that we proceed. 2. She likely has severe aortic stenosis given reported aortic valve area of <1 cm2 on outside echocardiogram, however I cannot see that full report. She is symptomatic with angina and heart failure. I have expedited an echocardiogram here. Assuming her echocardiogram confirms severe aortic stenosis she would benefit from valve replacement if deemed a candidate to both improve symptoms and prolong her life. 3. Please obtain the below studies if not already done. 4. When work up complete will plan sequence of interventions. Pulmonary Function Tests with spirometry and bronchodilator Carotid Ultrasound CT Angiogram of the Chest, Abdomen, & Pelvis (CT TAVR) -- Plan to obtain likely given anticipated contrast load today with heart cath. Panorex and Dental clearance (unless patient is edentulous) Thank you for the consult and please do not hesitate to contact us with any questions or concerns. Christie Bartholomew MD Interventional [employer] Cardiac testing: Cath Results 03/21/22 (outside institution): Left main is calcified with extension of calcification into the LAD and left Circ Mid LAD severe disease of 90% stenosis D1 has a proximal 90% stenosis Ostial circumflex had 90% extension in hi OM1 branch RCA in stent stenosis 30% Distal RCA had 80% stenosis Transthoracic echocardiogram (outside institution, date unclear) EF 65%; Left atrium is mildly enlarged Moderate mitral annular calcification Extension of the mitral annular calcification into the base of the posterior mitral valve leaflet The mitral valve chordae are thickened and/or calcified Mild valve stenosis with mild insufficiency Trivial tricuspid valve stenosis Moderate to severe calcific aortic valve stenosis with an area of 0.5 cm2 Trivial aortic valve insufficieny Trivial pulmonic valve insufficiency RVSP 32 mmHg Diastolic function is indeterminate HISTORY: It was my pleasure to see . Finesse Prather in consultation at the [facility] on 03/31/2022 for evaluation of her aortic stenosis and obstructive CAD. She is a pleasant 87 y.o. female with a history of aortic stenosis, coronary artery disease, carotid stenosis complicated by TIA s/p carotid endarterectomy, type 2 diabetes, peripheral arterial disease, mild mitral stenosis and regurgitation, hypertension, hyperlipidemia, diastolic heart failure for whom we are consulted for assistance with managing aortic stenosis and obstructive CAD. She presented to an outside hospital with symptoms of ongoing chest pain and dyspnea late February and was found to be in hypoxic respiratory failure due to pulmonary edema and also have an elevated troponin. She was managed with diuresis with improvement in her respiratory status. She had a work up including a heart catheterization and an echocardiogram as above. She was transferred to [facility] on 03/28/2022 for evaluation for revascularization of coronaries and valve replacement. Since arriving at [facility] she has been transitioned to oral diuretics. She has been evaluated bycardiac surgery and deemed a poor candidate for surgery. She has continued to have intermittent chest pain. She reports that she has been having exertional angina for a few months now that peaked at the as mentioned above. Also with dyspnea and lower extremity edema. She has continued to have intermittent angina since admission that has improved since starting the nitroglycerin drip. However she did have another episode this morning requiring up-titration of the drip. Despite her age and comorbidities she is remarkably functional. She lives with her . She does all of the cooking and cleaning. Prior to developing angina she had a daily walking routine about 1-2 months ago. PAST MEDICAL HISTORY: - Aortic stenosis - Mild mitral stenosis - Mild mitral regurgitation - Diastolic heart failure - Coronary artery disease - Prior TIA - Carotid stenosis s/p bilateral endarterectomy - Hypertension - Hyperlipidemia - Type 2 diabetes - Depression SOCIAL HISTORY She reports that she has never smoked. She has never used smokeless tobacco. She reports that she does not drink alcohol and does not use drugs. FAMILY HISTORY Her family history includes Cancer in her mother; Coronary Artery Disease in her father; Diabetes in her sister; Hypertension in her father; Myocardial Infarction (age of onset: 80) in her father; Stroke in her mother; Stroke (age of onset: 66) in her sister. PAST MEDICAL HISTORY She has a past medical history of Aortic stenosis, CAD (coronary artery disease), Carotid stenosis,Diabetes mellitus type 2, noninsulin dependent, Heart failure, HLD (hyperlipidemia), PAD (peripheral artery disease), Presence of stent in coronary artery, and TIA (transient ischemic attack). PAST SURGICAL HISTORY Her has a past surgical history that includes hysterectomy; endarterectomy carotid subclavian vertebral (Left, 2010); and endarterectomy carotid subclavian vertebral (Right, 05/05/2017). ALLERGIES Allergies Allergen Reactions Statins Muscle Spasm and Pain HOME MEDICATIONS Medications Prior to Admission Medication Sig Dispense Refill Last Dose aspirin 81 MG Chew Tab chewable tablet Chew 81 mg daily. Clopidogrel 75 MG tablet Take 75 mg by mouth daily. ezetimibe 10 MG tablet Take 10 mg by mouth daily. isosorbide mononitrate 30 MG Tab SR 24 HR tablet XL Take 30 mg by mouth daily every morning. Lisinopril 5 MG tablet Take 5 mg by mouth 2 times daily. metFORMIN 500 MG tablet Take 500 mg by mouth 2 times daily with meals. Metoprolol 25 MG tab regular release Take 25 mg by mouth 2 times daily. Multivitamin w/ minerals tablet Take 1 tablet by mouth daily. nitroGLYCERIN 0.[address] 0.4 mg under tongue every 5 minutes as needed for Chest pain. max = 3 doses. If CP persists after 1st dose, call 911 [place] [id number] ([employer]) 250-2.5-0.5 MG capsule Take 1 capsule by mouth 2 times daily. Sertraline 25 MG tablet Take 25 mg by mouth daily. CURRENT MEDICATIONS aspirin 81 mg Oral Daily Clopidogrel 75 mg Oral Daily ezetimibe 10 mg Oral Daily furOSEmide 20 mg Oral Daily Insulin lispro Subcutaneous 4x daily w/meals, HS isosorbide mononitrate 60 mg Oral Daily Lisinopril 10 mg Oral BID Metoprolol 25 mg Oral Q12H Multivitamin w/ minerals 1 tablet Oral Daily Sertraline 25 mg Oral Daily heparin infusion 16 Units/kg/hr (03/31/22911) nitroGLYCERIN infusion 20 mcg/min (03/31/22938) REVIEW OF SYSTEMS: A full review of systems was preformed and was negative unless otherwise noted. Cardiac: +chest pain, no palpitations Respiratory: + dyspnea on exertion, no orthopnea, no PND Neuro: +weakness, no syncope General: no fevers, no chills Head: No headache Eyes: No blurry vision Ears: No hearing loss, Nose/mouth: No rhinorrhea, no congestion GI: No abdominal pain Gu: No dysuria Musculoskeletal: no joint pain Heme: No bleeding or bruising Skin: No rash, no jaundice PHYSICAL EXAM: Intake/Output Summary (Last 24 hours) at 03/31/2022 1436 Last data filed at 03/31/2022 1229 Gross per 24 hour Intake 924.48 ml Output 1300 ml Net -375.52 ml Temp: [97.4 F (36.3 C)-98.4 F (36.9 C)] 97.7 F (36.5 C) Pulse (Heart Rate): [55-81] 61 Resp Rate: [10-42] 18 BP: (85-231)/(42-98) 95/47 O2 Sat (%): [89 %-99 %] 93 % BP 95/47 Pulse 61 Temp 97.7 F (36.5 C) (Oral) Resp 18 Ht 1.499 m (4' 11) Wt 59.7 kg (131lb 9.6 oz) Comment: standing weight SpO2 93% BMI 26.58 kg/m Smoking Status Never General appearance: The patient is alert, oriented, and in no distress. Heent: No xanthelasma, normal conjunctiva. Extraocular motions are normal. Pupils are equal, round,and reactive to light. Chest: Breath sounds throughout. Clear to auscultation bilaterally. Unlabored effort Heart: Regular rate and rhythm. S1, S2 normal. Loud murmur at RUSB systolic. Abdomen: Soft, non-tender. No rebound or guarding. Bowel sounds normal. No pulsatile masses or organomegaly. Pulses: All pulses 2+ and symmetric. Skin: Skin color, texture, turgor normal. No rashes or lesions. DATA REVIEWED: Lab Results Component Value Date SODIUM 139 03/31/2022 SODIUM 138 10/12/2010 SODIUM 138 10/11/2010 POTASSIUM 4.3 03/31/2022 POTASSIUM 4.5 10/12/2010 POTASSIUM 3.7 10/11/2010 GLUCOSE 120 (H) 03/31/2022 GLUCOSE 132 (H) 10/12/2010 CHLORIDE 105 03/31/2022 CHLORIDE 106 10/12/2010 CO2 27 03/31/2022 CO2 25 10/12/2010 BUN 26 (H) 03/31/2022 BUN 12 10/12/2010 CREATSERUM 0.69 03/31/2022 CREATSERUM 0.76 10/12/2010 Lab Results Component Value Date WBC 7.07 03/29/2022 WBC 9.4 10/12/2010 HGB 12.0 03/29/2022 HGB 12.1 10/12/2010 HCT 36.3 03/29/2022 HCT 36.0 10/12/2010 HCT 41 10/11/2010 PLATELET 233 03/29/2022 PLATELET 204 10/12/2010 MCV 86.4 03/29/2022 MCV 87.1 10/12/2010 No results found for: TROP, BNP [facility] Work Phone: 1(903) 757-890401-02-2023 Note* Plan of Care - Kaylin Collado RN - 03/31/2022 10:19 AM EST Problem: Patient Care Overview Goal: Plan of Care Review Outcome: Ongoing Goal: Individualization & Mutuality Outcome: Ongoing Goal: Discharge Needs Assessment Outcome: Ongoing Goal: Interdisciplinary Rounds/Family Conf Outcome: Ongoing Problem: Mobility, Physical Impaired (Adult) Goal: Identify Related Risk Factors and Signs and Symptoms Description: Related risk factors and signs and symptoms are identified upon initiation of Human Response Clinical Practice Guideline (CPG) Outcome: Ongoing Goal: Enhanced Mobility Skills Description: Patient will demonstrate the desired outcomes by discharge/transition of care. Outcome: Ongoing Goal: Enhanced Functionality Ability Description: Patient will demonstrate the desired outcomes by discharge/transition of care. Outcome: Ongoing Problem: Fall/Trauma/Injury Risk (Adult) Goal: Fall/Trauma/Injury Risk: Absence of Trauma/Injury/Falls Description: Patient will demonstrate the desired outcomes. Outcome: Ongoing Goal: Knowledge of risk factors/behavior modification Description: Knowledge of risk factors/behavior modification for fall/injury prevention Outcome: Ongoing Problem: Cardiac: ACS (Acute Coronary Syndrome) (Adult) Goal: Signs and Symptoms of Listed Potential Problems Will be Absent, Minimized or Managed (Cardiac: ACS) Description: Signs and symptoms of listed potential problems will be absent, minimized or managed by discharge/transition of care (reference Cardiac: ACS (Acute Coronary Syndrome) (Adult) CPG). Outcome: Ongoing Problem: Pain, Acute (Adult) Goal: Identify Related Risk Factors and Signs and Symptoms Description: Related risk factors and signs and symptoms are identified upon initiation of Human Response Clinical Practice Guideline (CPG) Outcome: Ongoing Goal: Acceptable Pain Control/Comfort Level Description: Patient will demonstrate the desired outcomes by discharge/transition of care. Outcome: Ongoing [facility]01-02-[facility] Note* Plan of Care - Maty Latham RN - 03/31/2022 5:49 AM EST Problem: Patient Care Overview Goal: Plan of Care Review Outcome: Ongoing Goal: Individualization & Mutuality Outcome: Ongoing Goal: Discharge Needs Assessment Outcome: Ongoing Problem: Mobility, Physical Impaired (Adult) Goal: Identify Related Risk Factors and Signs and Symptoms Description: Related risk factors and signs and symptoms are identified upon initiation of Human Response Clinical Practice Guideline (CPG) Outcome: Ongoing Goal: Enhanced Mobility Skills Description: Patient will demonstrate the desired outcomes by discharge/transition of care. Outcome: Ongoing Goal: Enhanced Functionality Ability Description: Patient will demonstrate the desired outcomes by discharge/transition of care. Outcome: Ongoing Problem: Cardiac: ACS (Acute Coronary Syndrome) (Adult) Goal: Signs and Symptoms of Listed Potential Problems Will be Absent, Minimized or Managed (Cardiac: ACS) Description: Signs and symptoms of listed potential problems will be absent, minimized or managed by discharge/transition of care (reference Cardiac: ACS (Acute Coronary Syndrome) (Adult) CPG). Outcome: Ongoing Problem: Pain, Acute (Adult) Goal: Identify Related Risk Factors and Signs and Symptoms Description: Related risk factors and signs and symptoms are identified upon initiation of Human Response Clinical Practice Guideline (CPG) Outcome: Ongoing Goal: Acceptable Pain Control/Comfort Level Description: Patient will demonstrate the desired outcomes by discharge/transition of care. Outcome: Ongoing [facility]01-02-2023 Note* Nursing Notes - Maty Latham RN - 03/31/2022 4:03 AM EST [id number] Natalia: would you please increased apresoline PRN frequency to Q4hrs? She needs a dose but it's not available yet. Thank you, Maty SINGH [id number], copy of text page sent to MD ping pong table assembler for lexus, await response. [facility]01-01-2023 Note* Nursing Notes - Kaylin Collado RN - 03/30/2022 7:31 PM EST @1730 pt complains of chest pain, SL nitroglycerin given, ECG obtained, BP:230/97 @1736 second dose of SL nitroglycerin, additional ECG obtained, BP: 112/56 HR:69 @1740 chest pain resolved, Dr. Petersen notified @1815 pt complains of chest pain, Dr. Petersen notified, new orders for nitroglycerin gtt @1817 SL nitroglycerin given, BP: 226/98 @1825 BP 129/61 pt reports diminished pain @1837 Nitroglycerin gtt started [facility]01-01-2023 Note* Plan of Care - Sabas Petersen MD - 03/30/2022 6:08 PM EST Brief update note Patient with recurrent chest pain episodes. Also associated with significantly elevated blood pressures upt ot 200 systolic during episodes, which resolve quickly with nitroglycerin. Last episode yesterday and again now. If increasing in frequency, may benefit from nitroglycerin infusion while awaiting surgical evaluation. - for now increase imdur to 60mg - low threshold for nitroglycerin infusion if cp recurrent or not quickly improved with sublingual ntg Update: 45 minutes after chest pain resolution, it is recurring. Will add nitroglycerin infusion Sabas Petersen MD [facility]01-01-2023 Note* Plan of Care - Kaylin Collado RN - 03/30/2022 11:17 AM EST Problem: Patient Care Overview Goal: Plan of Care Review Outcome: Ongoing Goal: Individualization & Mutuality Outcome: Ongoing Goal: Discharge Needs Assessment Outcome: Ongoing Goal: Interdisciplinary Rounds/Family Conf Outcome: Ongoing Problem: Mobility, Physical Impaired (Adult) Goal: Identify Related Risk Factors and Signs and Symptoms Description: Related risk factors and signs and symptoms are identified upon initiation of Human Response Clinical Practice Guideline (CPG) Outcome: Ongoing Goal: Enhanced Mobility Skills Description: Patient will demonstrate the desired outcomes by discharge/transition of care. Outcome: Ongoing Goal: Enhanced Functionality Ability Description: Patient will demonstrate the desired outcomes by discharge/transition of care. Outcome: Ongoing Problem: Fall/Trauma/Injury Risk (Adult) Goal: Fall/Trauma/Injury Risk: Absence of Trauma/Injury/Falls Description: Patient will demonstrate the desired outcomes. Outcome: Ongoing Goal: Knowledge of risk factors/behavior modification Description: Knowledge of risk factors/behavior modification for fall/injury prevention Outcome: Ongoing Problem: Cardiac: ACS (Acute Coronary Syndrome) (Adult) Goal: Signs and Symptoms of Listed Potential Problems Will be Absent, Minimized or Managed (Cardiac: ACS) Description: Signs and symptoms of listed potential problems will be absent, minimized or managed by discharge/transition of care (reference Cardiac: ACS (Acute Coronary Syndrome) (Adult) CPG). Outcome: Ongoing Problem: Pain, Acute (Adult) Goal: Identify Related Risk Factors and Signs and Symptoms Description: Related risk factors and signs and symptoms are identified upon initiation of Human Response Clinical Practice Guideline (CPG) Outcome: Ongoing Goal: Acceptable Pain Control/Comfort Level Description: Patient will demonstrate the desired outcomes by discharge/transition of care. Outcome: Ongoing [facility]01-01-2023 Note* Plan of Care - Shelly Thomas MD - 03/30/2022 10:34 AM EST Patient reviewed with Dr. Wilson. Briefly, 87 y.o. female who with CAD s/p stents (2016/2017), PAD, carotid stenosis with TIA s/p bilateral endarterectomy (L 2010, R 2017), HTN, HLD, DM who presented with chest pain and dyspnea, found to have NSTEMI and severe aortic stenosis. Patient prefers TAVR/PCI route, which we are in agreement with given her age and comorbid conditions. - CT TAVR protocol - repeat echo here - panorex and dental evaluation - carotid duplex ultrasound Mary Thomas MD Cardiothoracic Surgery [phone] [facility]12-31-2022 Note* Plan of Care - Monet Castle RN - 03/29/2022 11:23 PM EST Problem: Patient Care Overview Goal: Plan of Care Review 03/29/20222313 by Monet Castle RN Outcome: Met This Shift 03/29/20222312 by Monet Castle RN Outcome: Met This Shift Goal: Individualization & Mutuality 03/29/20222313 by Monet Castle RN Outcome: Met This Shift 03/29/20222312 by Monet Castle RN Outcome: Met This Shift Problem: Mobility, Physical Impaired (Adult) Goal: Enhanced Mobility Skills Description: Patient will demonstrate the desired outcomes by discharge/transition of care. Outcome: Met This Shift Goal: Enhanced Functionality Ability Description: Patient will demonstrate the desired outcomes by discharge/transition of care. Outcome: Met This Shift Problem: Cardiac: ACS (Acute Coronary Syndrome) (Adult) Goal: Signs and Symptoms of Listed Potential Problems Will be Absent, Minimized or Managed (Cardiac: ACS) Description: Signs and symptoms of listed potential problems will be absent, minimized or managed by discharge/transition of care (reference Cardiac: ACS (Acute Coronary Syndrome) (Adult) CPG). Outcome: Met This Shift Problem: Pain, Acute (Adult) Goal: Identify Related Risk Factors and Signs and Symptoms Description: Related risk factors and signs and symptoms are identified upon initiation of Human Response Clinical Practice Guideline (CPG) Outcome: Met This Shift Goal: Acceptable Pain Control/Comfort Level Description: Patient will demonstrate the desired outcomes by discharge/transition of care. Outcome: Met This Shift [facility]12-31-2022 NoteAcute Coronary Syndrome (ACS): Initial Evaluation and Management: [email or web address] [email or web address] [facility]12-31-2022 NoteAcute Coronary Syndrome (ACS): Initial Evaluation and Management: [email or web address] [email or web address] [facility]12-31-2022 Note* Nursing Notes - Kaylin Collado RN - 03/29/2022 7:22 PM EST @1750 pt complains of chest pain, ECG obtained, abnormal results. BP: 203/90 HR:81 @1805 1st SL nitroglycerin given, paged, orders for labetolol, morphine, and 2nd nitroglycerin. Pt reports relief with 1st nitroglycerin. @1810 MD arrived at bedside @1814 Labetolol and nitroglycerin given. Troponin drawn. Pts reports decreased chest pain @1815 morphine held per MD, BP: 166/71 HR:72 @1835 ECG obtained showing normal results, BP: 103/50 HR:67 [facility]12-31-2022 NoteAcute Coronary Syndrome (ACS): Initial Evaluation and Management: [email or web address] [email or web address] [facility]12-31-2022 Note* Significant Event - Henrique Petersen MD - 03/29/2022 6:46 PM EST Repeat EKG done at 6:35 p.m. after evaluation of chest pains showing complete resolution of ST depression in 2 3 and AVF. Considering dynamic EKG changes, chest pain resolved with nitroglycerin (chest pain occurring at rest) the patient has unstable angina (NSTEMI if troponin comes back elevated) In this scenario, I will start this patient on IV heparin drip for acute coronary syndrome. Cardiology has already been consulted, I do not see any indication for emergent interventional cardiology evaluation at this point. If the patient continues to have repeated episodes, office coordinator to be contacted. [facility] Work Phone: [phone] Note* Significant Event - Henrique Petersen MD - 03/29/2022 6:32 PM EST This is a 87-year-old female with recently diagnosed triple-vessel coronary artery disease transferred to [facility] for evaluation for CABG. She also has underlying moderate to severe aortic stenosis Called by nurse around 6:00 p.m. for sudden onset retrosternal chest pressure associated with significant hypertension. Patient was promptly evaluated at bedside Subjective: The patient was admitted to Medicine acute distress reports significant improvement in his panel complete resolution. This has been lasted for about 15-20 minutes and improved after 2 sublingual nitroglycerin tablets.Next Objective: Vitals: reviewed Blood pressure after 1 dose of IV labetalol and 2 sublingual nitroglycerin systolic 90 and diastolic 44 Heart rate 80 per minute setting more than 95% on room air Cardiac: RRR S1-S2 normal Lungs: Bilateral normal breath sounds without any wheezing or crackles Abdomen: Soft nontender to palpation Stat EKG will obtain by bedside nurse. EKG reviewed by me personally showing ST depression in [address] elevation. Compared to prior EKG from 03/20/2022, this is new finding most likely ischemic in nature. The patient was given 2 sublingual nitroglycerin and 1 dose of IV labetalol The patient reported complete resolution of her chest pain. Stat troponin ordered Repeat EKG ordered now that the chest pain had resolved to look for dynamic EKG changes If troponin comes back high, I will start the patient on IV heparin drip I am avoiding starting the patient on IV nitroglycerin drip considering underlying moderate to severe aortic stenosis and the fact that the patient's chest pain has now resolved. Critical care time spent evaluating and managing this patient is 35 minutes Henrique Petersen MD [employer] Expert of Internal Medicine Division of Hospital Medicine [facility], [facility]12-31-2022 NoteAcute Coronary Syndrome (ACS): Initial Evaluation and Management: [email or web address] [facility]12-31-2022 Consult note* Shelly Thomas MD - 03/29/2022 12:19 PM ESTAssociated Order(s): IP CONSULT TO SURGERY - CARDIAC CARDIAC SURGERY CONSULT NOTE Reason for Consult: aortic stenosis/coronary artery disease Ms. Prather is a 87 y.o. female who with CAD s/p stents (2016/2017), PAD, carotid stenosis with TIA s/p bilateral endarterectomy (L 2010, R 2017), HTN, HLD, DM who presented with chest pain and dyspnea, found to have NSTEMI. Has had few weeks of shortness of breath and occasional chest tightness. Was at a friend's when she had worsening shortness of breath and medic was called. She was taken to outside hospital and found to be hypoxic, which improved with IV diuresis. She underwent LHC at outside hospital showing multivessel disease and echo showing severe aortic stenosis and was transferred here. Here, she denies chest pain or shortness of breath. Lives with her (who has hospice care) and her child. She is able to complete ADLs at home on her own, although her grandkids do help her once a week with house duties. 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 REVIEW OF SYSTEMS Full review of systems performed. All others are negative except as indicated in HPI. RELEVANT INFORMATION Past Medical History: Diagnosis Date Aortic stenosis CAD (coronary artery disease) Carotid stenosis Diabetes mellitus type 2, noninsulin dependent On metformin Heart failure HLD (hyperlipidemia) PAD (peripheral artery disease) Presence of stent in coronary artery TIA (transient ischemic attack) Past Surgical History: Procedure Laterality Date ENDARTERECTOMY CAROTID SUBCLAVIAN VERTEBRAL Right 05/05/2017 ENDARTERECTOMY CAROTID SUBCLAVIAN VERTEBRAL Left 2010 HYSTERECTOMY Family History Problem Relation Age of Onset Cancer Mother Stroke Mother Myocardial Infarction Father 80 Hypertension Father Coronary Artery Disease Father Diabetes Sister Stroke Sister 66 Social History reports that she has never smoked. She has never used smokeless tobacco. She reports that she does not drink alcohol and does not use drugs. Social History Tobacco Use Smoking Status Never Smokeless Tobacco Never Social History Substance and Sexual Activity Alcohol Use Never Allergies Allergies Allergen Reactions Statins Muscle Spasm and Pain Current Medications Scheduled Meds: aspirin 81 mg Oral Daily Clopidogrel 75 mg Oral Daily enoxaparin 40 mg Subcutaneous Q24H ezetimibe 10 mg Oral Daily furOSEmide 20 mg Oral Daily isosorbide mononitrate 30 mg Oral QAM Lisinopril 5 mg Oral BID Metoprolol 25 mg Oral Q12H Multivitamin w/ minerals 1 tablet Oral Daily Sertraline 25 mg Oral Daily Continuous Infusions: PRN Meds:magnesium oxide OR magnesium oxide OR Magnesium Sulfate IVPB, nitroGLYCERIN, Potassium chloride OR Potassium Bicarb-Citric Acid, Sodium chloride 0.9% DIAGNOSTIC RESULTS Cath Results 03/21/22: Left main is calcified with extension of calcification into the LAD and left Circ Mid LAD severe disease of 90% stenosis D1 has a proximal 90% stenosis Ostial circumflex had 90% extension in hi OM1 branch RCA in stent stenosis 30% Distal RCA had 80% stenosis TTE: EF 65%; Left atrium is mildly enlarged Moderate mitral annular calcification Extension of the mitral annular calcification into the base of the posterior mitral valve leaflet The mitral valve chordae are thickened and/or calcified Mild valve stenosis with mild insufficiency Trivial tricuspid valve stenosis Moderate to severe calcific aortic valve stenosis with an area of 0.5 cm2 Trivial aortic valve insufficieny Trivial pulmonic valve insufficiency RVSP 32 mmHg Diastolic function is indeterminate CXR (03/20/22): Mild degree of CHF with superimposed bibasilar infiltrates worse at the left lung base Labs: Lab Results Component Value Date WBC 7.58 03/29/2022 HGB 13.1 03/29/2022 PLATELET 267 03/29/2022 PTT 28.1 03/29/2022 INR 1.0 03/29/2022 SODIUM 139 03/29/2022 POTASSIUM 4.0 03/29/2022 CHLORIDE 104 03/29/2022 CO2 27 03/29/2022 BUN 32 (H) 03/29/2022 CALCIUM 9.1 03/29/2022 MAGNESIUM 2.1 03/29/2022 PHOSPHORUS 3.9 03/29/2022 AST 24 03/29/2022 ALKPHOS 66 03/29/2022 BILITOTAL 0.4 03/29/2022 BILIDIRECT <0.1 03/29/2022 ALBUMIN 3.6 03/29/2022 Lab Results Component Value Date CREATSERUM 0.75 03/29/2022 PHYSICAL EXAM Physical Exam Vital Signs (24hrs): Blood pressure 119/55, pulse 59, temperature 98.7 F (37.1 C), temperature source Oral, resp. rate 22, height 1.499 m (4' 11), weight 59.7 kg (131 lb 9.6 oz), SpO2 93 %, not currently . Pulmonary/Cardiac Hemodynamics Pulse (Heart Rate): 59 BSA (Calculated - sq m): 1.55 m2 Body mass index is 26.58 kg/m . Intake/Output Summary (Last 24 hours) at 03/29/2022 1219 Last data filed at 03/29/2022 1146 Gross per 24 hour Intake 250 ml Output 450 ml Net -200 ml Wt Readings from Last 3 Encounters: 03/29/22 59.7 kg (131 lb 9.6 oz) General appearance: alert, cooperative, appears stated age Lungs: clear to auscultation bilaterally Heart: regular rate and rhythm, S1, S2 normal, no murmur, click, rub or gallop Abdomen: soft, non-tender. Bowel sounds normal. No masses, no organomegaly Extremities: extremities normal, atraumatic, no cyanosis or edema, Normal ROM. Pulses: 2+ and symmetric Skin: Skin color, texture, turgor normal. No rashes or lesions Neurologic: Grossly normal Psych: appropriate mood and affect for clinical situation ASSESSMENT/PLAN Finesse Prather is a 87 y.o. female who with CAD s/p stents (2016/2017, on plavix), PAD, carotid stenosis with TIA s/p bilateral endarterectomy (L 2010, R 2017), HTN, HLD, DM who presented with chest pain and dyspnea, found to have NSTEMI. [facility] reviewed - reasonable targets for RCA, OM, and LAD however given her age and comorbidities, would favor PCI/TAVR if possible (which is also the patient's preference). RECOMMENDATIONS: We would recommend - CT TAVR protocol - repeat echo here - panorex and dental evaluation - carotid duplex ultrasound This patient was discussed with Dr. Riley Wilson. Thank you for the consult. Please call with any additional questions or concerns. Mary Thomas MD Department of Surgery [phone] Associated attestation - Riley Wilson MD, PhD - 03/30/2022 9:31 PM EST CARDIAC SURGERY I reviewed and discussed Ms. Prather. She would not benefit from CABG/SAVR and she is not interestedin open surgery. There may be a role for PCI and possibly staged TAVR. I reviewed her imaging with Dr. Heart and there may be a role for PCI to LAD and RCA. We will repeat her echocardiogram and obtain TAVR CT for planning. [facility] Work Phone: [phone]) 516-163912-31-2022 Note* Plan of Care - Kaylin Collado RN - 03/29/2022 10:37 AM EST Problem: Patient Care Overview Goal: Plan of Care Review Outcome: Ongoing Goal: Individualization & Mutuality Outcome: Ongoing Goal: Discharge Needs Assessment Outcome: Ongoing Goal: Interdisciplinary Rounds/Family Conf Outcome: Ongoing Problem: Mobility, Physical Impaired (Adult) Goal: Identify Related Risk Factors and Signs and Symptoms Description: Related risk factors and signs and symptoms are identified upon initiation of Human Response Clinical Practice Guideline (CPG) Outcome: Ongoing Goal: Enhanced Mobility Skills Description: Patient will demonstrate the desired outcomes by discharge/transition of care. Outcome: Ongoing Goal: Enhanced Functionality Ability Description: Patient will demonstrate the desired outcomes by discharge/transition of care. Outcome: Ongoing Problem: Fall/Trauma/Injury Risk (Adult) Goal: Fall/Trauma/Injury Risk: Absence of Trauma/Injury/Falls Description: Patient will demonstrate the desired outcomes. Outcome: Ongoing Goal: Knowledge of risk factors/behavior modification Description: Knowledge of risk factors/behavior modification for fall/injury prevention Outcome: Ongoing [facility]12-30-2022 Note* Certification - Tanya Hylton MD - 03/28/2022 10:53 PM EST I certify that this patient requires inpatient services at this time. I anticipate the expected length of stay will include at least two midnights. Inpatient services are due to the following medicalconcerns aortic stenosis and NSTEMI. Plans for post hospitalization care will be discharge to home. [facility]12-30-2022 History and physical note* Tanya Hylton MD - 03/28/2022 9:58 PM EST Hospital Medicine Admission History & Physical Patient: Finesse Prather, : 1935, Date of face to face patient encounter: 03/28/2022 Impression / Plan 87 yo female who presented with progressive shortness of breathe, chest pressure on exertion and found to have hypoxic respiratory failure secondary to pulmonary edema and found to have worsening CADand Aortic Stenosis #Acute NSTEMI Type I, POA: -Cardiac Cath showed Triple-Vessel Disease. -Transferred here to discuss high risk PCI verse CABG. Consult Cardiology and OHS -Continue ASA and Plavix -Continue Nitrates, BB -Telemetry -ECG - Images on CD. Will need to get them transferred over #Moderate to Severe Aortic Stenosis: -Here to discuss SAVR verse TAVR. Consult Cardiology and OHS -Images sent on disc. Will need to get them transferred over # Acute hypoxic respiratory failure secondary to acute on chronic diastolic heart failure, pulmonary edema, resolved: -Continue PO lasix 20 mg # Essential Hypertension -Continue imdur, lisinopril, metoprolol # Hyperlipidemia -Continue zetia # Peripheral Artery Disease -Continue ASA # Diabetes Mellitus, Type 2 Non-insulin dependent -Glucose was elevated to 300s on admission to OSH # Depression -Continue sertraline BMI: 26.8 DVT prophylaxis with lovenox Anticipated Disposition: will depend on treatment decision Code status is FULL Chief Complaint Chest pain and dyspnea History of Presenting Illness Finesse Prather is a 87 y.o. female with history of CAD s/p stents, Aortic Stenosis, Mitral Valve Stenosis, Heart Failure, PAD, Carotid Stenosis s/p TIA s/p endarteerectomy (L 2010, R 2017) , HLD, HTN and T2DM (non-insulin dependent) who presented to the OSH with chest pain and dyspnea. The patient states that she has been having worsening chest pressure and dyspnea on exertion for approximately 6 months. The pain is left sternal pressure without radiation. She had no lower extremity swelling. NoPND. No orthopnea. No palpitations. No syncopal events. The day of admission she went to a and had worsening of her chest pressure and dyspnea that became severe so presented to the ED. She wa s found to be 78% on RA on presentation. ABG- 7.33//. She was placed on NIMV and treated with IV diuretics with improvement. Treated with 60 mg IV lasix on 03/20, and 40 mg IV daily until 03/23 when she was transitioned to oral. She was eventually transitioned to RA. She had a TTE prior to presentation which showed moderate to severe and diastolic dysfunction. In addition she had a CXR on p resentation which showed pulmonary edema. She underwent coronary angiogram which showed triple vessel disease. After discussion with the family it was determined that she would transfer to [facility] forevaluation for high risk PCI vs CABG and SAVR vs TAVR. Today she states she has no chest pain. She also has no dyspnea. Cath Results 03/21/22: Left main is calcified with extension of calcification into the LAD and left Circ Mid LAD severe disease of 90% stenosis D1 has a proximal 90% stenosis Ostial circumflex had 90% extension in hi OM1 branch RCA in stent stenosis 30% Distal RCA had 80% stenosis TTE: EF 65%; Left atrium is mildly enlarged Moderate mitral annular calcification Extension of the mitral annular calcification into the base of the posterior mitral valve leaflet The mitral valve chordae are thickened and/or calcified Mild valve stenosis with mild insufficiency Trivial tricuspid valve stenosis Moderate to severe calcific aortic valve stenosis with an area of 0.5 cm2 Trivial aortic valve insufficieny Trivial pulmonic valve insufficiency RVSP 32 mmHg Diastolic function is indeterminate CXR (03/20/22): Mild degree of CHF with superimposed bibasilar infiltrates worse at the left lung base Labs on admission to OSH: Na- 138, K- 3.6, BUN- 18, Creat- 0.62 WBC- 9.7, Hgb- 14.9, Plat- 242 hsTrop- 45-->[id number] BNP: 549 LFTs wnl Review of Systems Constitutional: No fever, chills, weight changes Eyes: No vision changes ENT: No ringing, loss of hearing Cardiovascular: No LE edema, leg pain with walking, PND, Orthopnea Respiratory: No cough, + SOB Gastrointestinal: No abd pain, constipation, diarrhea Genitourinary: No dysuria, gross hematuria Integumentary: No rash Musculoskeletal: No joint deformity, joint pains Psychiatric: No depressed mood History Past Medical History: Diagnosis Date Aortic stenosis CAD (coronary artery disease) Carotid stenosis Diabetes mellitus type 2, noninsulin dependent On metformin Heart failure HLD (hyperlipidemia) PAD (peripheral artery disease) Presence of stent in coronary artery TIA (transient ischemic attack) Past Surgical History: Procedure Laterality Date ENDARTERECTOMY CAROTID SUBCLAVIAN VERTEBRAL Right 05/05/2017 ENDARTERECTOMY CAROTID SUBCLAVIAN VERTEBRAL Left 2010 HYSTERECTOMY Social History she reports that she has never smoked. She has never used smokeless tobacco. She reports that she does not drink alcohol and does not use drugs. Family History family history includes Cancer in her mother; Coronary Artery Disease in her father; Diabetes in her sister; Hypertension in her father; Myocardial Infarction (age of onset: 80) in her father; Strokein her mother; Stroke (age of onset: 66) in her sister. Medications / Allergies Prior to Admission Medications Prescriptions Clopidogrel 75 MG tablet Sig: Take 75 mg by mouth daily. Lisinopril 5 MG tablet Sig: Take 5 mg by mouth 2 times daily. Metoprolol 25 MG tab regular release Sig: Take 25 mg by mouth 2 times daily. Multivitamin w/ minerals tablet Sig: Take 1 tablet by mouth daily. [place] 3-Sshbyo-Ozfrbajgbn (CHNL) 250-2.5-0.5 MG capsule Sig: Take 1 capsule by mouth 2 times daily. Sertraline 25 MG tablet Sig: Take 25 mg by mouth daily. aspirin 81 MG Chew Tab chewable tablet Sig: Chew 81 mg daily. ezetimibe 10 MG tablet Sig: Take 10 mg by mouth daily. isosorbide mononitrate 30 MG Tab SR 24 HR tablet XL Sig: Take 30 mg by mouth daily every morning. metFORMIN 500 MG tablet Sig: Take 500 mg by mouth 2 times daily with meals. nitroGLYCERIN 0.4 MG tablet SL Sig: Place 0.4 mg under tongue every 5 minutes as needed for Chest pain. max = 3 doses. If CP persists after 1st dose, call 911 Facility-Administered Medications: None Allergies Allergen Reactions Statins Muscle Spasm and Pain Objective Findings BP 157/68 (BP Location: Left arm, BP Position: Sitting) Pulse 70 Temp 97.7 F (36.5 C) (Oral) Resp 18 Ht 1.499 m (4' 11) Wt 60.1 kg (132 lb 6.4 oz) Comment: standing SpO2 95% BMI 26.74 kg/m Smoking Status Never Physical Exam Gen: Alert, Awake, NAD Eyes: PERRLA, EOMI, no icterus ENT: MMM, trachea midline Resp: CTA & P, normal respiratory effort Cardio: RRR, normal S1, S2, midsystolic ejection murmur heard both in LUSB and LLSB . No ELIU. 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 Strength grossly equal in muscle groups of the bilateral UEsand LEs. Psych: Ox3, appropriate affect and cognition Data Review OSH labs 03/24/22: Na- 140, K- 4.0, Cl- 16, Bicarb- 37, BUN- 22, Creat- 0.59, Glu- 174 WBC- 7.7, Hgb-14.1, Hct-41.4, Plat- 221 Rapid Covid- negative OSH labs 03/26/22: Na-139, K- 4.1, Cl-105, Bicarb-27, BUN-22, Creat-0.54, Glu- 166 WBC-7.0, Hgb-14, HCT 42.1, Plat- 134 ECG 03/24/22 NSR, LVH, TWI I, AVL, V2-V6. [facility] History and physical note* Tanya Hylton MD - 03/28/2022 9:58 PM EST Hospital Medicine Admission History & Physical Patient: Finesse Prather, : 1935, Date of face to face patient encounter: 03/28/2022 Impression / Plan 87 yo female who presented with progressive shortness of breathe, chest pressure on exertion and found to have hypoxic respiratory failure secondary to pulmonary edema and found to have worsening CADand Aortic Stenosis #Acute NSTEMI Type I, POA: -Cardiac Cath showed Triple-Vessel Disease. -Transferred here to discuss high risk PCI verse CABG. Consult Cardiology and OHS -Continue ASA and Plavix -Continue Nitrates, BB -Telemetry -ECG - Images on CD. Will need to get them transferred over #Moderate to Severe Aortic Stenosis: -Here to discuss SAVR verse TAVR. Consult Cardiology and OHS -Images sent on disc. Will need to get them transferred over # Acute hypoxic respiratory failure secondary to acute on chronic diastolic heart failure, pulmonary edema, resolved: -Continue PO lasix 20 mg # Essential Hypertension -Continue imdur, lisinopril, metoprolol # Hyperlipidemia -Continue zetia # Peripheral Artery Disease -Continue ASA # Diabetes Mellitus, Type 2 Non-insulin dependent -Glucose was elevated to 300s on admission to OSH # Depression -Continue sertraline BMI: 26.8 DVT prophylaxis with lovenox Anticipated Disposition: will depend on treatment decision Code status is FULL Chief Complaint Chest pain and dyspnea History of Presenting Illness Finesse Prather is a 87 y.o. female with history of CAD s/p stents, Aortic Stenosis, Mitral Valve Stenosis, Heart Failure, PAD, Carotid Stenosis s/p TIA s/p endarteerectomy (L 2010, R 2018) , HLD, HTN and T2DM (non-insulin dependent) who presented to the OS with chest pain and dyspnea. The patient states that she has been having worsening chest pressure and dyspnea on exertion for approximately 6 months. The pain is left sternal pressure without radiation. She had no lower extremity swelling. NoPND. No orthopnea. No palpitations. No syncopal events. The day of admission she went to a and had worsening of her chest pressure and dyspnea that became severe so presented to the ED. She wa s found to be 78% on RA on presentation. ABG- 7.33. She was placed on NIMV and treated with IV diuretics with improvement. Treated with 60 mg IV lasix on 03/20, and 40 mg IV daily until 03/23 when she was transitioned to oral. She was eventually transitioned to RA. She had a TTE prior to presentation which showed moderate to severe and diastolic dysfunction. In addition she had a CXR on p resentation which showed pulmonary edema. She underwent coronary angiogram which showed triple vessel disease. After discussion with the family it was determined that she would transfer to [facility] forevaluation for high risk PCI vs CABG and SAVR vs TAVR. Today she states she has no chest pain. She also has no dyspnea. Cath Results 03/21/22: Left main is calcified with extension of calcification into the LAD and left Circ Mid LAD severe disease of 90% stenosis D1 has a proximal 90% stenosis Ostial circumflex had 90% extension in hi OM1 branch RCA in stent stenosis 30% Distal RCA had 80% stenosis TTE: EF 65%; Left atrium is mildly enlarged Moderate mitral annular calcification Extension of the mitral annular calcification into the base of the posterior mitral valve leaflet The mitral valve chordae are thickened and/or calcified Mild valve stenosis with mild insufficiency Trivial tricuspid valve stenosis Moderate to severe calcific aortic valve stenosis with an area of 0.5 cm2 Trivial aortic valve insufficieny Trivial pulmonic valve insufficiency RVSP 32 mmHg Diastolic function is indeterminate CXR (03/20/22): Mild degree of CHF with superimposed bibasilar infiltrates worse at the left lung base Labs on admission to OSH: Na- 138, K- 3.6, BUN- 18, Creat- 0.62 WBC- 9.7, Hgb- 14.9, Plat- 242 hsTrop- 45-->[id number] BNP: 549 LFTs wnl Review of Systems Constitutional: No fever, chills, weight changes Eyes: No vision changes ENT: No ringing, loss of hearing Cardiovascular: No LE edema, leg pain with walking, PND, Orthopnea Respiratory: No cough, + SOB Gastrointestinal: No abd pain, constipation, diarrhea Genitourinary: No dysuria, gross hematuria Integumentary: No rash Musculoskeletal: No joint deformity, joint pains Psychiatric: No depressed mood History Past Medical History: Diagnosis Date Aortic stenosis CAD (coronary artery disease) Carotid stenosis Diabetes mellitus type 2, noninsulin dependent On metformin Heart failure HLD (hyperlipidemia) PAD (peripheral artery disease) Presence of stent in coronary artery TIA (transient ischemic attack) Past Surgical History: Procedure Laterality Date ENDARTERECTOMY CAROTID SUBCLAVIAN VERTEBRAL Right 05/05/2017 ENDARTERECTOMY CAROTID SUBCLAVIAN VERTEBRAL Left 2010 HYSTERECTOMY Social History she reports that she has never smoked. She has never used smokeless tobacco. She reports that she does not drink alcohol and does not use drugs. Family History family history includes Cancer in her mother; Coronary Artery Disease in her father; Diabetes in her sister; Hypertension in her father; Myocardial Infarction (age of onset: 80) in her father; Strokein her mother; Stroke (age of onset: 66) in her sister. Medications / Allergies Prior to Admission Medications Prescriptions Clopidogrel 75 MG tablet Sig: Take 75 mg by mouth daily. Lisinopril 5 MG tablet Sig: Take 5 mg by mouth 2 times daily. Metoprolol 25 MG tab regular release Sig: Take 25 mg by mouth 2 times daily. Multivitamin w/ minerals tablet Sig: Take 1 tablet by mouth daily. [place] 7-Bncwrt-Bxayccbnfb ([employer]) 250-2.5-0.5 MG capsule Sig: Take 1 capsule by mouth 2 times daily. Sertraline 25 MG tablet Sig: Take 25 mg by mouth daily. aspirin 81 MG Chew Tab chewable tablet Sig: Chew 81 mg daily. ezetimibe 10 MG tablet Sig: Take 10 mg by mouth daily. isosorbide mononitrate 30 MG Tab SR 24 HR tablet XL Sig: Take 30 mg by mouth daily every morning. metFORMIN 500 MG tablet Sig: Take 500 mg by mouth 2 times daily with meals. nitroGLYCERIN 0.4 MG tablet SL Sig: Place 0.4 mg under tongue every 5 minutes as needed for Chest pain. max = 3 doses. If CP persists after 1st dose, call 911 Facility-Administered Medications: None Allergies Allergen Reactions Statins Muscle Spasm and Pain Objective Findings BP 157/68 (BP Location: Left arm, BP Position: Sitting) Pulse 70 Temp 97.7 F (36.5 C) (Oral) Resp 18 Ht 1.499 m (4' 11) Wt 60.1 kg (132 lb 6.4 oz) Comment: standing SpO2 95% BMI 26.74 kg/m Smoking Status Never Physical Exam Gen: Alert, Awake, NAD Eyes: PERRLA, EOMI, no icterus ENT: MMM, trachea midline Resp: CTA & P, normal respiratory effort Cardio: RRR, normal S1, S2, midsystolic ejection murmur heard both in LUSB and LLSB . No ELIU. 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 Strength grossly equal in muscle groups of the bilateral UEsand LEs. Psych: Ox3, appropriate affect and cognition Data Review OSH labs 03/24/22: Na- 140, K- 4.0, Cl- 16, Bicarb- 37, BUN- 22, Creat- 0.59, Glu- 174 WBC- 7.7, Hgb-14.1, Hct-41.4, Plat- 221 Rapid Covid- negative OSH labs 03/26/22: Na-139, K- 4.1, Cl-105, Bicarb-27, BUN-22, Creat-0.54, Glu- 166 WBC-7.0, Hgb-14, HCT 42.1, Plat- 134 ECG 03/24/22 NSR, LVH, TWI I, AVL, V2-V6. documented in [facility] encounterOS[facility] HealthEvaluation note* Diagnosis Onset Date Resolution Status Chest pain acute Essential hypertension acute Moderate to severe aortic stenosis acute Atherosclerotic heart diseas e of yocha dehe coronary artery without angina pectoris chronic HLD (hyperlipidemia) chronic History of aortic stenosis a cute History of diabetes mellitus acute Hypoxia acute Non-ST elevated myocardial infarction acute Pulmonary edema acute Respiratory failure acute [facility] Work Phone: Evaluation note* Diagnosis Onset Date Resolution Status Chest pain acute Essential hypertension acute Moderate to severe aortic stenosis acute Atherosclerotic heart diseas e of [place] coronary artery without angina pectoris chronic HLD (hyperlipidemia) chronic CAD (coronary artery disease), [place] coronary artery acute Carotid stenosis, left acute Chest pain acute Elevated troponin acute Essential hypertension acute History of aortic stenosis a cute History of diabetes mellitus acute Hypoxia acute Moderate to severe aortic stenosis acute Non-ST elevated myocardial infarction acute Nonrheumatic aortic (valve) stenosis acute Nonrheumatic mitral (valve) insufficiency acute Presence of stent in coronary artery June, acute Pulmonary edema acute Respiratory failure acute Severe aortic valve stenosis acute Stenosis of intracranial por tions of right internal carotid artery acute Atherosclerotic heart diseas e of [place] coronary artery without angina pectoris chronic Diabetes mellitus, type 2 ch ronic HLD (hyperlipidemia) chronic 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 PAD (peripheral artery disease) chronic [facility] Work Phone: Evaluation note* Diagnosis Stented coronary artery- Primary Postsurgical percutaneous transluminal coronary angioplasty status Acute chest pain Chest pain, unspecified Acute electrocardiogram changes Uncontrolled hypertension Unspecified essential hypertension Nonrheumatic aortic valve stenosis Aortic valve disorders Coronary artery disease involving [place] coronary artery of [place] heart with unstable angina pectoris NSTEMI (non-ST elevated myocardial infarction) Acute myocardial infarction, subendocardial infarction, episode of care unspecified Coronary artery disease involving [place] coronary artery of [place] heart with angina pectoris Acute on chronic diastolic heart failure Essential hypertension Unspecified essential hypertension Acute respiratory failure with hypoxia Acute respiratory failure Aortic valve stenosis, etiology of cardiac valve disease unspecified Aortic stenosis Aortic valve disorders Acute on chronic diastolic heart failure Coronary artery disease involving [place] coronary artery of [place] heart with angina pectoris Essential hypertension Unspecified essential hypertension Acute respiratory failure with hypoxia Acute respiratory failure Type 2 Diabetes (A1C > 6.49%) Coronary artery disease involving [place] coronary artery of [place] heart with unstable angina pectoris NSTEMI (non-ST elevated myocardial infarction) Acute myocardial infarction, subendocardial infarction, episode of care unspecified Coronary artery disease involving [place] coronary artery of [place] heart with unstable angina pectoris NSTEMI (non-ST elevated myocardial infarction) Acute myocardial infarction, subendocardial infarction, episode of care unspecified [facility] Diagnosis Onset Date Resolution Status Chest pain acute Essential hypertension acute Moderate to severe aortic stenosis acute Atherosclerotic heart diseas e of [place] coronary artery without angina pectoris chronic HLD (hyperlipidemia) chronic CAD (coronary artery disease ), [place] coronary artery acute Carotid stenosis, left acute Chest pain acute Elevated troponin acute Essential hypertension acute History of aortic stenosis a cute History of diabetes mellitus acute Hypoxia acute Moderate to severe aortic stenosis acute Non-ST elevated myocardial infarction acute Nonrheumatic aortic (valve) stenosis acute Nonrheumatic mitral (valve) insufficiency acute Presence of stent in coronary artery March, acute Pulmonary edema acute Respiratory failure acute Severe aortic valve stenosis acute Stenosis of intracranial por tions of right internal carotid artery acute Atherosclerotic heart diseas e of [place] coronary artery without angina pectoris chronic Diabetes mellitus, type 2 ch ronic HLD (hyperlipidemia) chronic 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 PAD (peripheral artery disease) chronic [facility] Work Phone: Evaluation note* Diagnosis Nonrheumatic aortic valve stenosis Aortic valve disorders Acute on chronic diastolic heart failure Acute respiratory failure with hypoxia Acute respiratory failure Aortic valve stenosis, etiology of cardiac valve disease unspecified S/P TAVR (transcatheter aortic valve replacement) Aortic valve stenosis, etiology of cardiac valve disease unspecified documented in this encounter [facility] assessment information available [facility] Work Phone: Reason for referral (narrative)* Consultation (Routine) - New Request Specialty Diagnoses / Procedures Referred By Parish t Referred To Contact Cardiovascular Medicine Diagnoses NSTEMI (non-ST elevated myocardial infarction) Coronary artery disease involving [place] coronary artery of [place] heart with angina pectoris Aortic valve stenosis, etiology of cardiac valve disease unspecified Eder Jaime Jr., MD [address] [place] [address] Referral ID Status Reason Start Date Expiration Date V isits Requested Visits Authorized [id number] New Request 04/05/2022 04/30/2023 1 1 Scheduling Instructions Please schedule this patient in the Department of Cardiology. Ideally interventional cardiology for TAVR eval. * MRI/CAT Scan (Routine) - New Request Specialty Diagnoses / Procedures Referred By Contac t Referred To Contact Diagnoses Aortic valve stenosis, etiology of cardiac valve disease unspecified Procedures CT ANGIO TAVR EVALUATION DC CT ANGIO ABD&PLVIS CNTRST MTRL W/WO CNTRST IMGES DC RECON, CTA FOR SURG PLAN DC CHG CT ANGIO HRT CORNRY ART/BYPASS GRFTS CONTRST 3D POST Addison Hernandez, Eder Lopez MD [address] [place] [address] Referral ID Status Reason Start Date Expiration Date V isits Requested Visits Authorized [id number] New Request 04/05/2022 04/30/2023 1 1 * Radiology (Emergency) - New Request Specialty Diagnoses / Procedures Referred By Contac t Referred To Contact Procedures ECG Chadwick Heart MD [address] [place] [address] Referral ID Status Reason Start Date Expiration Date V isits Requested Visits Authorized [id number] New Request 04/04/2022 04/29/2023 1 1 * (Routine) - New Request Specialty Diagnoses / Procedures Referred By Contac t Referred To Contact Procedures PLATELET MONITORING PER PROTOCOL Chadwick Heart MD [address] [place] [address] Referral ID Status Reason Start Date Expiration Date V isits Requested Visits Authorized [id number] New Request 04/01/2022 04/26/2023 1 1 * Radiology (Emergency) - New Request Specialty Diagnoses / Procedures Referred By Contac t Referred To Contact Procedures ECG Chadwick Heart MD [address] [place] [address] Referral ID Status Reason Start Date Expiration Date V isits Requested Visits Authorized [id number] New Request 04/01/2022 04/26/2023 1 1 * Consultation (Routine) - New Request Specialty Diagnoses / Procedures Referred By Contact Referred To Contact Cardiovascular Medicine Diagnoses Stented coronary artery Chadwick Heart MD [address] [place] [address] Referral ID Status Reason Start Date Expiration Date V isits Requested Visits Authorized [id number] New Request 04/05/2022 04/30/2023 1 1 Scheduling Instructions Clinic to contact patient for scheduling at most appropriate location. * (Routine) Specialty Diagnoses / Procedures Referred By Contac t Referred To Contact Tito Bartholomew MD [address] [place] [address] [address] [place] [address] Referral ID Status Reason Start Date Expiration Date Visits Re quested Visits Authorized * Radiology (Routine) - New Request Specialty Diagnoses / Procedures Referred By Contac t Referred To Contact Procedures ECG Sabas Petersen MD [address] [place], [place] [phone] Referral ID Status Reason Start Date Expiration Date V isits Requested Visits Authorized [id number] New Request 03/29/2022 04/23/2023 1 1 * Radiology (Routine) - New Request Specialty Diagnoses / Procedures Referred By Parish t Referred To Contact Procedures ECG Tanya Hylton MD [address] [address] Referral ID Status Reason Start Date Expiration Date V isits Requested Visits Authorized [id number] New Request 03/28/2022 04/22/2023 1 1 [facility]No reason for referral information availableNeedmore 24tidy Services Work Phone: Reason for visit Narrative* Auth/Cert Specialty Diagnoses / Procedures Referred By Parish del angel Referred To Contact Diagnoses CAD, severe aortic stenosis Sabas Petersen MD [address] [place] [phone] [facility] [address] [place] [address] Referral ID Status Reason Start Date Expiration Date Visits Re quested Visits Authorized [id number] 1 1 [facility] N[facility]ative* Auth/Cert Specialty Diagnoses / Procedures Referred By Contnia t Referred To Contact Diagnoses SOB on BIPAP Patricia Schrader MD, PhD [address] [address] [facility] [address] [place] [phone] Referral ID Status Reason Start Date Expiration Date Visits Re quested Visits Authorized [id number] 1 1 [facility] Chief Complaint and Reason for Visit Chief Complaint PER [facility] CHEST PAIN CHF Reason for Visit Chest pain Essential hypertension Moderate to severe aortic stenosis Atherosclerotic heart disease of [place] coronary artery without angina pectoris HLD (hyperlipidemia) History of aortic stenosis History of diabetes mellitus Hypoxia Non-ST elevated myocardial infarction Pulmonary edema Respiratory failure Chief Complaint PER [facility] CHEST PAIN CHF Congestive heart failure Congestive heart failure Congestive heart failure Congestive heart failure Congestive heart failure Congestive heart failure Congestive heart failure Congestive heart failure Congestive heart failure Congestive heart failure Congestive heart failure Congestive heart failure Congestive heart failure Congestive heart failure Reason for Visit Chest pain Essential hypertension Moderate to severe aortic stenosis Atherosclerotic heart disease of [place] coronary artery without angina pectoris HLD (hyperlipidemia) CAD (coronary artery disease), [place] coronary artery Carotid stenosis, left Chest pain Elevated troponin Essential hypertension History of aortic stenosis History of diabetes mellitus Hypoxia Moderate to severe aortic stenosis Non-ST elevated myocardial infarction Nonrheumatic aortic (valve) stenosis Nonrheumatic mitral (valve) insufficiency Presence of stent in coronary artery Pulmonary edema Respiratory failure Severe aortic valve stenosis 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 Atherosclerotic heart disease of [place] coronary artery without angina pectoris Diabetes mellitus, type 2 HLD (hyperlipidemia) Occlusion and stenosis of right carotid artery PAD (peripheral artery disease) Chief Complaint PER [facility] CHEST PAIN CHF Congestive heart failure Congestive heart failure Congestive heart failure Congestive heart failure Congestive heart failure Congestive heart failure Congestive heart failure Congestive heart failure Congestive heart failure Congestive heart failure Congestive heart failure Congestive heart failure Congestive heart failure Congestive heart failure Congestive heart failure Amb Documentation SOB Reason for Visit Chest pain Essential hypertension Moderate to severe aortic stenosis Atherosclerotic heart disease of [place] coronary artery without angina pectoris HLD (hyperlipidemia) CAD (coronary artery disease), [place] coronary artery Carotid stenosis, left Chest pain Elevated troponin Essential hypertension History of aortic stenosis History of diabetes mellitus Hypoxia Moderate to severe aortic stenosis Non-ST elevated myocardial infarction Nonrheumatic aortic (valve) stenosis Nonrheumatic mitral (valve) insufficiency Presence of stent in coronary artery Pulmonary edema Respiratory failure Severe aortic valve stenosis 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 Atherosclerotic heart disease of [place] coronary artery without angina pectoris Diabetes mellitus, type 2 HLD (hyperlipidemia) Occlusion and stenosis of right carotid artery PAD (peripheral artery disease) Chief Complaint PER [facility] CHEST PAIN CHF Congestive heart failure Congestive heart failure Congestive heart failure Congestive heart failure Congestive heart failure Congestive heart failure Congestive heart failure Congestive heart failure Congestive heart failure Congestive heart failure Congestive heart failure Congestive heart failure Congestive heart failure Congestive heart failure Congestive heart failure Amb Documentation SOB sob Reason for Visit Chest pain Essential hypertension Moderate to severe aortic stenosis Atherosclerotic heart disease of [place] coronary artery without angina pectoris HLD (hyperlipidemia) CAD (coronary artery disease), [place] coronary artery Carotid stenosis, left Chest pain Elevated troponin Essential hypertension History of aortic stenosis History of diabetes mellitus Hypoxia Moderate to severe aortic stenosis Non-ST elevated myocardial infarction Nonrheumatic aortic (valve) stenosis Nonrheumatic mitral (valve) insufficiency Presence of stent in coronary artery Pulmonary edema Respiratory failure Severe aortic valve stenosis 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 Atherosclerotic heart disease of [place] coronary artery without angina pectoris Diabetes mellitus, type 2 HLD (hyperlipidemia) Occlusion and stenosis of right carotid artery PAD (peripheral artery disease) Chief Complaint Admit Date 3 M FU October 04, 2024 3:47p m Chief Complaint Admit Date 3 M FU October 04, 2024 3:47p m 2 M FU December 06, 2024 8:36am Reason for Visit Admit Date Essential hypertension October 04, 2024 3: 47pm History of transcatheter aortic valve re placement (TAVR) October 04, 2024 3:47pm Presence of stent in coronary artery Mahesh 2024 3:47pm Carotid stenosis, left October 04, 2024 3: 47pm HLD (hyperlipidemia) October 04, 2024 3:47 pm Essential hypertension December 06 8:36am History of transcatheter aortic valve re placement (TAVR) December 06, 2024 8:36am Presence of stent in coronary artery Sep tember 2024 8:36am Carotid stenosis, left December 06 8:36am HLD (hyperlipidemia) December 06, 2024 8:36am Family History No Family History Records Found Relationship Condition Age at Onset Recorded Date/T kiara father Coronary artery disease Unknown Hypertension Unknown Myocardial infarction 80 sister Cerebrovascular accident (CVA) 66 Diabetes mellitus Unknown Arthritis Unknown mother Malignant neoplasm Unknown Advance Directives No Advanced Directives Records Found Advance Directive Response Recorded Date/ Time Name of Medical Power of Fuel Buyer Beto Prather March 20, 2022 2:30pm Living Will Yes March 20 022 2:30pm Power of Fuel Buyer Yes March 20, 2022 2:30pm Latest Code Status on File Code Status Date Activated Date Inactivated Comments DNRCC-ARREST 04/02/2022 4:56 PM I have disc ussed Finesse Prather's Do Not Resuscitate wishes with the patient. They are in agreement with this code status. Do not intubate. Code Status History Code Status Date Activated Date Inactivated Comments Full Code 04/01/2022 2:57 PM 04/02/2022 4:55 PM DNRCC-ARREST 03/29/2022 11:44 AM 04/01/2022 2:57 PM I kenney ve discussed Finesse Prather's Do Not Resuscitate wishes with Ms Prather. They are in agreement with this code status. Full Code 03/28/2022 9:42 PM 03/29/2022 11:43 AM Advance Directive Response Recorded Date/ Time Name of Medical Power of Fuel Buyer Beto Prather March 20, 2022 2:30pm Name of Medical Power of Fuel Buyer STAS PRATHER April 16, 2022 9:22pm Living Will Yes April 16 9:22pm Power of Fuel Buyer Yes April 16, 2022 9:22pm Advance Directive Response Recorded Date/ Time Name of Medical Power of Fuel Buyer Beto Prather March 20, 2022 2:30pm Name of Medical Power of Fuel Buyer STAS PRATHER April 16, 2022 9:22pm Name of Medical Power of Fuel Buyer Stas Prather April 19, 2022 10:09pm Living Will Yes April 19 10:09pm Power of Fuel Buyer Yes April 19, 2022 10:09pm Latest Code Status on File Code Status Date Activated Date Inactivated Comments DNRCC-ARREST 04/17/2022 3:58 PM I have dis cussed Finesse Prather's Do Not Resuscitate wishes with finesse Prather. They are in agreement with this code status. Code Status History Code Status Date Activated Date Inactivated Comments DNRCC-ARREST 04/02/2022 4:56 PM 04/17/2022 3:58 PM I have discussed Finesse Prather's Do Not Resuscitate wishes with the patient. They are in agreement with this code status. Do not intubate. Full Code 04/01/2022 2:57 PM 04/02/2022 4:55 PM DNRCC-ARREST 03/29/2022 11:44 AM 04/01/2022 2:57 PM I kenney ve discussed Finesse Prather's Do Not Resuscitate wishes with Ms Prather. They are in agreement with this code status. Full Code 03/28/2022 9:42 PM 03/29/2022 11:43 AM Reason for Referral Specialty Diagnoses / Procedures Referred By Contac t Referred To Contact Diagnoses S/P TAVR (transcatheter aortic valve replacement) Procedures EVENT MONITOR, CARDIAC Kailey Paniagua MD [address] [place] [phone] Referral ID Status Reason Start Date Expiration Date V isits Requested Visits Authorized [id number] New Request 04/26/2022 05/21/2023 1 1 Specialty Diagnoses / Procedures Referred By Contac t Referred To Contact Cardiovascular Medicine Diagnoses Aortic valve stenosis, etiology of cardiac valve disease unspecified Kailey Paniagua MD [address] [place] [phone] Referral ID Status Reason Start Date Expiration Date V isits Requested Visits Authorized [id number] New Request 04/25/2022 05/20/2023 1 1 Scheduling Instructions Please schedule this patient in the Department of Cardiology. Specialty Diagnoses / Procedures Referred By Contac t Referred To Contact Procedures MOBILE CARDIAC TELEMETRY Jacinta Sebastian APRN-CNP [address] [place], [place] [phone] Referral ID Status Reason Start Date Expiration Date V isits Requested Visits Authorized [id number] New Request 04/25/2022 05/20/2023 1 1 Specialty Diagnoses / Procedures Referred By Contac t Referred To Contact Jacinta Sebastian APRN-CNP [address] [place], [place] [phone] Referral ID Status Reason Start Date Expiration Date Visits Re quested Visits Authorized Specialty Diagnoses / Procedures Referred By Contac t Referred To Contact Procedures NO HEPARIN OR ENOXAPARIN ORDERED Jacinta Sebastian APRN-GLOBAL REGULATORY AFFAIRS MANAGER [address] [place] [address] Referral ID Status Reason Start Date Expiration Date V isits Requested Visits Authorized [id number] New Request 04/25/2022 05/20/2023 1 1 Specialty Diagnoses / Procedures Referred By Contac t Referred To Contact Procedures PATIENT ON THERAPEUTIC ANTICOAGULATION Jacinta Sebastian, GAME PROTECTOR-GLOBAL REGULATORY AFFAIRS MANAGER [address] [place] [address] Referral ID Status Reason Start Date Expiration Date V isits Requested Visits Authorized [id number] New Request 04/25/2022 05/20/2023 1 1 Specialty Diagnoses / Procedures Referred By Contac t Referred To Contact Procedures ECG DimasChristopher Jacinta Coronel, GAME PROTECTOR-GLOBAL REGULATORY AFFAIRS MANAGER [address] [place] [address] Referral ID Status Reason Start Date Expiration Date V isits Requested Visits Authorized [id number] New Request 04/25/2022 05/20/2023 1 1 Specialty Diagnoses / Procedures Referred By Contac t Referred To Contact Radha Chinchilla MD [address] [facility] [address] [place] [address] Specialty Diagnoses / Procedures Referred By Contac t Referred To Contact Procedures DVT/VTE RISK ASSESSMENT Patricia Schrader MD, PhD [address] [facility] [address] [place] [address] Referral ID Status Reason Start Date Expiration Date V isits Requested Visits Authorized [id number] New Request 04/20/2022 05/15/2023 1 1 Summary Purpose Additional Source Comments Goals (unrecognized section and content) Goals may be documented in a n alternate sectionGoals may be documented in an alternate sectionGoals may be documented in an alternate section Scheduled Active and Recently Administ ered Medications (unrecognized section and content) Medication Order 04/03/2022 04/04/2022 04/05/2022 aspirin chewable tablet 81 mg 81 mg, Oral, DAILY, First dose on Thu03/29/22 at 0900, Until Discontinued 0756 (Given - Provider: Kaylin Collado RN) 0749 (Given - Provider: Kang Landers RN) 0855 (Given - Provider: Guadalupe Matta RN) carveDILOL (COREG) tablet 12.5 mg 12.5 mg, Oral, EVERY 12 HOURS, First dose (after last modification) on Thu04/04/22 at 2100, Until Discontinued, 1955 (Given - Provider: Cynthia Christiansen, RN) 0855 (Given - Provider: Guadalupe Matta, RN) carveDILOL (COREG) tablet 6.25 mg (CANCELED) 6.25 mg, Oral, EVERY 12 HOURS, First dose on Pascale 04/03/22 at 2100, Until Discontinued, 2037 (Given - Provider: Monet Castle, FRANCISCO) 0749 (Given - Provider: Kang Landers, FRANCISCO) Clopidogrel (PLAVIX) tablet 75 mg 75 mg, Oral, DAILY, First dose on 03/29/22 at 0900, Until Discontinued 075 (Given - Provider: Kaylin Collado RN) 0748 (Given - Provider: Kang Landers RN) 0855 (Given - Provider: Guadalupe Matta, RN) ezetimibe (ZETIA) 10 mg 10 mg, Oral, DAILY, First dose on 03/29/22 at 0900, Until Discontinued 075 (Given - Provider: Kaylin Collado RN) 0801 (Given - Provider: Kang Landers RN) 0855 (Given - Provider: Guadalupe Matta, RN) furOSEmide (LASIX) tablet 20 mg (CANCELED) 20 mg, Oral, DAILY, First dose on 03/29/22 at 0900, Until Discontinued 075 (Given - Provider: Kaylin Collado RN) Heparin injection 5,000 Units 5,000 Units, Subcutaneous, EVERY 8 HOURS (0800/1600/2200), First dose on Pascale 04/03/22 at 0800, Until Discontinued 075 (Given - Provider: Kaylin Collado RN)1617 (Given - Provider: Kaylin Collado RN)2037 (Given - Provider: Monet Castle RN) 0749 (Given - Provider: Kang Landers, FRANCISCO)1640 (Given - Provider: Kang Landers RN)220 (Given - Provider: Cynthia Christiansen, FRANCISCO) 0855 (Given - Provider: Guadalupe Matta, RN)161 (Not Given - Provider: Guadalupe Matta, RN - Reason: Patient/family refused) hydrALAZINE (APRESOLINE) tablet 25 mg (COMPLETED) 25 mg, Oral, ONCE, 1 dose, On Thu04/04/22 at 0400 0351 (Given - Provider: Monet Castle, FRANCISCO) hydrALAZINE (APRESOLINE) tablet 25 mg (COMPLETED) 25 mg, Oral, ONCE, 1 dose, On Thu04/04/22 at 1500 1446 (Given - Provider: Martine Jung, FRANCIS[place]) Insulin lispro (HUMALOG) injection(Linked Group 1) Subcutaneous, 4 TIMES DAILY WITH MEALS & AT BEDTIME, First dose on Thu03/30/22 at 1715, Until Discontinued, Insulin to carb ratio: Standard: 1 unit insulin = 10 grams carbs every meal and at bedtime Correction Factor: 151-200 = 1 unit; 201-250 = 2 units; 251-300 = 3 units; 301-350 = 4 units; 351-400 = 5 units; Kwikpen: Prime pen before each injection; refer to Pen Priming and Care Handout for further details. Warning! Confirm patient. Insulin pen is for labeled individual patient use ONLY. 0856 (Given - Provider: Kaylin Collado RN)1225 (Given - Provider: Kaylin Collado RN)1742 (Given - Provider: Kaylin Collado RN)2038 (Given - Provider: Monet Castle, FRANCISCO) 0811 (Not Given - Provider: Kang Landers RN - Reason: Order Parameters not met - Comment: blood sugar 126, no carb coverage)1352 (Not Given - Provider: Kang Landers RN - Reason: Order Parameters not met)1649 (Not Given - Provider: Kang Landers RN - Reason: Order Parameters not met)2001 (Given - Provider: Cynthia Christiansen RN) 0854 (Given - Provider: Guadalupe Matta RN)1229 (Given - Provider: Guadalupe Matta, RN)1631 (Not Given - Provider: Guadalupe Matta RN - Reason: Patient/family refused) isosorbide mononitrate (IMDUR) tablet XL 30 mg (CANCELED) 30 mg, Oral, DAILY, First dose on Thu04/02/22 at 1145, Until Discontinued, Do not crush or chew. May be divided in half. 0756 (Given - Provider: Kaylin Collado RN) Metoprolol (LOPRESSOR) tablet 25 mg (CANCELED) 25 mg, Oral, EVERY 12 HOURS, First dose on 03/29/22 at 0900, Until Discontinued, 0755 (Given - Provider: Kaylin Collado, RN) Multivitamin w/ minerals (THERAPEUTIC-M) tablet 1 tablet 1 tablet, Oral, DAILY, First dose on 03/29/22 at 0900, Until Discontinued 0756 (Given - Provider: Kaylin Collado RN) 0748 (Given - Provider: Kang Landers RN) 0855 (Given - Provider: Guadalupe Matta, RN) Sertraline (ZOLOFT) tablet 25 mg 25 mg, Oral, DAILY, First dose on 03/29/22 at 0900, Until Discontinued 0756 (Given - Provider: Kaylin Collado, FRANCISCO) 0748 (Given - Provider: Kang Landers, FRANCISCO) 0855 (Given - Provider: Guadalupe Matta RN) Continuous Medication Order 04/03/2022 04/04/2022 04/05/2022 Sodium chloride 0.9% IV solution () 1.5 mL/kg/hr 60.1 kg Dosing weight (90.15 mL/hr, rounded to 90.2 mL/hr), Intravenous, CONTINUOUS, Starting on Thu04/04/22 at 1130, Until Thu04/04/22 at 1729, Post-op/Post-Proc 1144 ($$New Bag$$ - Provider : Kang Landers RN)1145 (Rate/Dose Verify - Provider: Kang Landers RN)1635 (Rate/Dose Verify - Provider: Kang Landers RN)1920 (Stopped - Provider: Cynthia Christiansen RN) PRN Medication Order 04/03/2022 04/04/2022 04/05/2022 Acetaminophen (TYLENOL) tablet 325 mg 325 mg, Oral, EVERY 6 HOURS NEEDED, Starting on Thu04/01/22 at 1632, Until 04/05/22 at 1936, Mild Pain, Moderate Pain, Maximum dose of acetaminophen is 4000 mg from all sources in 24 hours. Dextrose 50% injection 7.5-25 g(Linked Group 1) 7.5-25 g, Intravenous, ADMINISTER DIRECTED, Starting on Thu03/30/22 at 1702, Until 04/05/22 at 1936, Blood glucose <80 mg/dL, For patients who are not alert, are NPO, or are on IV insulin infusion administer as directed per Hypoglycemia in Non- Adults Clinical Practice Guideline. For Blood Glucose: 60-79 mg/dL administer 7.5 gm (15ml); 45-59 mg/dL administer 12.5 gm (25ml); less than 45mg/dL administer 25gm (50ml). ++ If additional dextrose 50% needed, contact pharmacy or obtain from crash cart ++ fentaNYL (SUBLIMAZE) injection (CANCELED) Intravenous, Administer over 2 Minutes, NEEDED, Starting on Thu04/04/22 at 1016, Until Thu04/04/22 at 1114, Intra-op/Intra-Proc 1016 (Given - Provider: Tomas Gibson RN)1104 (Given - Provider: Tomas Gibson RN) glucose (GLUTOSE) 40 % oral gel 1-2 Tube(Linked Group 1) 1-2 Tube, Oral, ADMINISTER DIRECTED, Starting on Thu03/30/22 at 1702, Until 04/05/22 at 1936, Blood glucose <80 mg/dL, For patients who are alert, able to tolerate PO intake and with intact cognitive status administer as directed per Hypoglycemia in Non- Adults Clinical Practice Guideline. For Blood Glucose: 60-79 mg/dL administer 1 tube; 45-59 mg/dl administer 1.5 tubes; less than 45 mg/dL administer 2 tubes. Each tube of 37.5g delivers 15g of carbohydrate. Heparin injection (CANCELED) NEEDED, Starting on Thu04/04/22 at 1039, Until Thu04/04/22 at 1114, Intra-op/Intra-Proc 1039 (Given - Provider: Tomas Gibson RN) hydrALAZINE (APRESOLINE) injection (CANCELED) Intravenous, NEEDED, Starting on Thu04/04/22 at 1014, Until Thu04/04/22 at 1114, Intra-op/Intra-Proc 1014 (Given - Provider: Tomas Gibson RN) Insulin lispro (HUMALOG) injection(Linked Group 1) Subcutaneous, NEEDED, Starting on Thu03/30/22 at 1702, Until 04/05/22 at 1936, Other, As needed for snacks, Insulin to carb ratio: Low: 1 unit insulin = 20 grams carbs Correction Factor: not to be used with this order. Kwikpen: Prime pen before each injection; refer to Pen Priming and Care Handout for further details. Warning! Confirm patient. Insulin pen is for labeled individual patient use ONLY. iodixanol (VISIPAQUE) injection 320 mg/mL for [facility] (CANCELED) Intravenous, NEEDED, Starting on Thu04/04/22 at 1108, Until Thu04/04/22 at 1114, Intra-op/Intra-Proc 1108 (Given - Provider: Tito Holguin MD) Lidocaine 2 % injection (CANCELED) Other, NEEDED, Starting on Thu04/04/22 at 1022, Until Thu04/04/22 at 1114, Intra-op/Intra-Proc 1022 (Given - Provider: Tito Holguin MD - Comment: right wrist)1029 (Given - Provider: Tito Holguin MD - Comment: right wrist) magnesium oxide (MAG-OX) tablet 800 mg(Linked Group 2) 800 mg, Oral, ADMINISTER DIRECTED, Starting on Thu03/28/22 at 2142, Until 04/05/22 at 1936, See admin instructions, Medicine Electrolyte Replacement Protocol, Administer for magnesium level of 1.6-1.9 mg/dL. NOT APPROPRIATE for Dialysis Patients, those with CrCl less than 30 mL/min, weight less than 50 kg; or for history of renal transplant. Draw magnesium level with next day morning labs. 0540 (Given - Provider: Madelyn Salvador RN) 0424 (Given - Provider: Cynthia Christiansen, RN) magnesium oxide (MAG-OX) tablet 800 mg(Linked Group 2) 800 mg, Per NG tube, ADMINISTER DIRECTED, Starting on Thu03/28/22 at 2142, Until 04/05/22 at 1936, See admin instructions, Medicine Electrolyte Replacement Protocol, Administer for magnesium level of 1.6-1.9 mg/dL. NOT APPROPRIATE for Dialysis Patients, those with CrCl less than 30 mL/min, weight less than 50 kg; or for history of renal transplant. Draw magnesium level with next day morning labs. 0540 (See Alternative - Provider: Madelyn Salvador RN) 0424 (See Alternative - Provider: Cynthia Christiansen, RN) Magnesium Sulfate 4 g in sterile water 50 ml premix IVPB(Linked Group 2) 4 g, Intravenous, Administer over 4 Hours, ADMINISTER DIRECTED, Starting on Thu03/28/22 at 2142, Until 04/05/22 at 1936, Other, Medicine Electrolyte Replacement Protocol, Administer for Magnesium level less than or equal to 1.5 mg/dL. NOT APPROPRIATE for Dialysis Patients, those with CrCl less than 30 mL/min, weight less than 50 kg; or for history of renal transplant. Repeat Magnesium level eight (8) hours after each infusion if most recent magnesium level is less than 1.3 mg/dL. Draw with next day morning labs after replacements for previous magnesium levels between 1.3-1.9 mg/dL. 0540 (See Alternative - Provider: Madelyn Salvador, RN) 0424 (See Alternative - Provider: Cynthia Christiansen, FRANCISCO) midazolam (VERSED) injection (CANCELED) Intravenous, NEEDED, Starting on Thu04/04/22 at 1016, Until Thu04/04/22 at 1114, Intra-op/Intra-Proc 1016 (Given - Provider: Tomas Gibson, FRANCISCO) nitroGLYCERIN (NITROSTAT) tablet SL 0.4 mg 0.4 mg, Sublingual, EVERY 5 MINUTES NEEDED, Starting on Thu03/28/22 at 2135, Until 04/05/22 at 1936, Chest pain, Maximum of three consecutive doses in 15 minutes. Do not chew, crush, or swallow sublingual tablet. Place under tongue and allow to dissolve. Alternately, may be placed in the buccal pouch. 0103 (Given - Provider: Monet Castle, FRANCISCO)0131 (Given - Provider: Monet Castle, FRANCISCO) Potassium Bicarb-Citric Acid (Effer-K) 20 MEQ effervescent tablets for oral solution 40-60 mEq(Linked Group 3) 40-60 mEq, Per NG tube, ADMINISTER DIRECTED, Starting on Thu03/28/22 at 2142, Until 04/05/22 at 1936, Other, See administration instructions, NOT APPROPRIATE for Dialysis Patients, those with CrCl less than 30 mL/min, weight less than 50 kg; or for history of renal transplant. Check magnesium level and administer magnesium prior to potassium replacement if indicated. For Potassium level less than 3 mmol/L administer 40 mEq every 4 hours x2 occurances. Recheck potassium level eight (8) hours after second dose administered. For Potassium level 3-3.5 mmol/L administer 60 mEq once. Recheck potassium level eight (8) hours after administration. For Potassium level 3.6-4.0 mmol/L administer 40 mEq once. Recheck potassium level with morning labs next day. Do not swallow whole. Dissolve completely in 3-4 ounces of water or cold juice before drinking. If administering via J tube, dilute in sterile water, wait for tablet to stop fizzing, swirl the solution and draw into a syringe suitable for attaching to the tube. After administration, flush tube with 15-30 ml water. Potassium chloride (K-DUR) tablet ER 40-60 mEq(Linked Group 3) 40-60 mEq, Oral, ADMINISTER DIRECTED, Starting on Thu03/28/22 at 2142, Until 04/05/22 at 1936, See admin instructions, NOT APPROPRIATE for Dialysis Patients, those with CrCl less than 30 mL/min, weight less than 50 kg; or for history of renal transplant. Check magnesium level and administer magnesium prior to potassium replacement if indicated. For Potassium level less than 3 mmol/L administer 40 mEq every 4 hours x2 occurances. Recheck potassium level eight (8) hours after second dose administered. For Potassium level 3-3.5 mmol/L administer 60 mEq once. Recheck potassium level eight (8) hours after administration. For Potassium level 3.6-4.0 mmol/L administer 40 mEq once. Recheck potassium level with morning labs next day. Sodium chloride 0.9% IV solution 250 mL Intravenous, at 20 mL/hr, NEEDED, Starting on Thu03/28/22 at 2136, Until 04/05/22 at 1936, Carrier Fluid - See Admin. Inst, 250mL 0.9NS to be used as carrier fluid for intermittent small volume or piggyback medication administration as needed. Infusion rate of the carrier fluid should be set at 20 mL/hr unless the rate as the intermittent medication is less than 20 mL/hr. For intermittent medications with a rate less than 20 mL/hr set the carrier fluid at that rate of the intermittent or piggy back medication. Linked Groups Order Group 1: Insulin lispro (HUMALOG) injectionJump to med Subcutaneous, 4 TIMES DAILY WITH MEALS & AT BEDTIME, First dose on Thu03/30/22 at 1715, Until Discontinued
Insulin to carb ratio: Standard: 1 unit insulin = 10 grams carbs every meal and at bedtime Correction Factor: 151-200 = 1 unit; 201-250 = 2 units; 251-300 = 3 units; 301-350 = 4 units; 351-400 = 5 units; Kwikpen: Prime pen before each injection; refer to Pen Priming and Care Handout for further details. Warning! Confirm patient. Insulin pen is for labeled individual patient use ONLY.
And Insulin lispro (HUMALOG) injectionJump to med Subcutaneous, NEEDED, Starting on 03/30/22 at 1702, Until 04/05/22 at 1936, Other, As needed for snacks
Insulin to carb ratio: Low: 1 unit insulin = 20 grams carbs Correction Factor: not to be used with this order. Kwikpen: Prime pen before each injection; refer to Pen Priming and Care Handout for further details. Warning! Confirm patient. Insulin pen is for labeled individual patient use ONLY.
And BLOOD GLUCOSE (POC DEVICE) (CANCELED) Routine, 4 TIMES DAILY BEFORE MEALS & AT BEDTIME, First occurrence on 03/30/22 at 2100
If any Blood Glucose (POC) is greater than 300mg/dl, then repeat Blood Glucose (POC) in 2 hours. If the initial blood glucose was greater than 300mg/dl and if second blood glucose is greater than 200md/dl, then notify [employer]. And BLOOD GLUCOSE (POC DEVICE) (CANCELED) Routine, DIRECTED, Starting on 03/30/22 at 1702, Until Specified
For all Blood Glucose LESS THAN 80 mg/dL, treat per Hypoglycemia in Non- Adults Clinical Practice Guideline (CPG) and recheck glucose 15 min after treatment. Repeat per CPG until glucose GREATER THAN 80 mg/dL. Once glucose IS GREATER THAN 80 mg/dL, recheck Blood Glucose every 1 hour x2, then resume as previously ordered. For Blood Glucose LESS THAN 80 mg/dL on admission OR LESS than 45 mg/dL at any time, obtain POC Blood Glucose every 4 hours for 6 occurrences AFTER treating per CPG. Obtain blood glucose for symptoms of hypoglycemia: sweating, shaking, fatigue, rapid pulse, slow thinking & dizziness. Notify physician w/results. Obtain blood glucose for symptoms of hyperglycemia: excessive thirst, blurred vision, excessive urination & tiredness. Notify physician w/results. If patient NPO, obtain POC Blood Glucose prior to administration of any insulin products. And COMMUNICATION ORDER FOR NURSING CARE: For Blood Glucose LESS THAN 80 mg/dl (CANCELED) Routine, CONTINUOUS, Starting on 03/30/22 at 1703, Until Specified
For Blood Glucose LESS THAN 80 mg/dl follow Hypoglycemia in Non- Adults Clinical Practice Guideline (CPG) And Dextrose 50% injection 7.5-25 gJump to med 7.5-25 g, Intravenous, ADMINISTER DIRECTED, Starting on 03/30/22 at 1702, Until 04/05/22 at 1936, Blood glucose <80 mg/dL
For patients who are not alert, are NPO, or are on IV insulin infusion administer as directed per Hypoglycemia in Non- Adults Clinical Practice Guideline. For Blood Glucose: 60-79 mg/dL administer 7.5 gm (15ml); 45-59 mg/dL administer 12.5 gm (25ml); less than 45mg/dL administer 25gm (50ml). ++ If additional dextrose 50% needed, contact pharmacy or obtain from [employer] cart ++
And glucose (GLUTOSE) 40 % oral gel 1-2 TubeJump to med 1-2 Tube, Oral, ADMINISTER DIRECTED, Starting on 03/30/22 at 1702, Until 04/05/22 at 1936, Blood glucose <80 mg/dL
For patients who are alert, able to tolerate PO intake and with intact cognitive status administer as directed per Hypoglycemia in Non- Adults Clinical Practice Guideline. For Blood Glucose: 60-79 mg/dL administer 1 tube; 45-59 mg/dl administer 1.5 tubes; less than 45 mg/dL administer 2 tubes. Each tube of 37.5g delivers 15g of carbohydrate.
And NOTIFY PHYSICIAN, Blood Glucose LESS THAN 80 mg/dl (CANCELED) Routine, CONTINUOUS, Starting on 03/30/22 at 1703, Until Specified
Who to Notify: [employer]
For all Blood Glucose LESS THAN 80 mg/dl, notify [employer] after treatment per Hypoglycemia in Non- Adults Clinical Practice Guideline And Carbohydrate counts with meals (CANCELED) Routine, CONTINUOUS, Starting on 03/30/22 at 1703, Until Specified
Carbohydrate counts are to be done after each patient meal and with snack. Group 2: magnesium oxide (MAG-OX) tablet 800 mgJump to med 800 mg, Oral, ADMINISTER DIRECTED, Starting on Thu03/28/22 at 2142, Until 04/05/22 at 1936, See admin instructions, Medicine Electrolyte Replacement Protocol
Administer for magnesium level of 1.6-1.9 mg/dL. NOT APPROPRIATE for Dialysis Patients, those with CrCl less than 30 mL/min, weight less than 50 kg; or for history of renal transplant. Draw magnesium level with next day morning labs.
Or magnesium oxide (MAG-OX) tablet 800 mgJump to med 800 mg, Per NG tube, ADMINISTER DIRECTED, Starting on Thu03/28/22 at 2142, Until 04/05/22 at 1936, See admin instructions, Medicine Electrolyte Replacement Protocol
Administer for magnesium level of 1.6-1.9 mg/dL. NOT APPROPRIATE for Dialysis Patients, those with CrCl less than 30 mL/min, weight less than 50 kg; or for history of renal transplant. Draw magnesium level with next day morning labs.
Or Magnesium Sulfate 4 g in sterile water 50 ml premix IVPBJump to med 4 g, Intravenous, Administer over 4 Hours, ADMINISTER DIRECTED, Starting on Thu03/28/22 at 2142, Until 04/05/22 at 1936, Other, Medicine Electrolyte Replacement Protocol
Administer for Magnesium level less than or equal to 1.5 mg/dL. NOT APPROPRIATE for Dialysis Patients, those with CrCl less than 30 mL/min, weight less than 50 kg; or for history of renal transplant. Repeat Magnesium level eight (8) hours after each infusion if most recent magnesium level is less than 1.3 mg/dL. Draw with next day morning labs after replacements for previous magnesium levels between 1.3-1.9 mg/dL.
Group 3: Potassium chloride (K-DUR) tablet ER 40-60 mEqJump to med 40-60 mEq, Oral, ADMINISTER DIRECTED, Starting on Thu03/28/22 at 2142, Until 04/05/22 at 1936, See admin instructions
NOT APPROPRIATE for Dialysis Patients, those with CrCl less than 30 mL/min, weight less than 50 kg; or for history of renal transplant. Check magnesium level and administer magnesium prior to potassium replacement if indicated. For Potassium level less than 3 mmol/L administer 40 mEq every 4 hours x2 occurances. Recheck potassium level eight (8) hours after second dose administered. For Potassium level 3-3.5 mmol/L administer 60 mEq once. Recheck potassium level eight (8) hours after administration. For Potassium level 3.6-4.0 mmol/L administer 40 mEq once. Recheck potassium level with morning labs next day.
Or Potassium Bicarb-Citric Acid (Effer-K) 20 MEQ effervescent tablets for oral solution 40-60 mEqJump to med 40-60 mEq, Per NG tube, ADMINISTER DIRECTED, Starting on Thu03/28/22 at 2142, Until 04/05/22 at 1936, Other, See administration instructions
NOT APPROPRIATE for Dialysis Patients, those with CrCl less than 30 mL/min, weight less than 50 kg; or for history of renal transplant. Check magnesium level and administer magnesium prior to potassium replacement if indicated. For Potassium level less than 3 mmol/L administer 40 mEq every 4 hours x2 occurances. Recheck potassium level eight (8) hours after second dose administered. For Potassium level 3-3.5 mmol/L administer 60 mEq once. Recheck potassium level eight (8) hours after administration. For Potassium level 3.6-4.0 mmol/L administer 40 mEq once. Recheck potassium level with morning labs next day. Do not swallow whole. Dissolve completely in 3-4 ounces of water or cold juice before drinking. If administering via J tube, dilute in sterile water, wait for tablet to stop fizzing, swirl the solution and draw into a syringe suitable for attaching to the tube. After administration, flush tube with 15-30 ml water.
Scheduled Medication Order 04/25/2022 04/26/2022 04/27/2022 aspirin chewable tablet 81 mg (CANCELED) 81 mg, Oral, DAILY, First dose (after last modification) on Thu04/25/22 at 0800, Until Discontinued, Pre-op/Pre-Proc 0801 (Given - Provider: Nathalie Damon RN) aspirin chewable tablet 81 mg 81 mg, Oral, DAILY, First dose on Thu04/26/22 at 0900, Until Discontinued 08 (Given - Provider: Tasia Mancia RN) 0824 (Given - Provider: Tasia Mancia RN) B Complex capsule 1 capsule 1 capsule, Oral, DAILY, First dose on Thu04/20/22 at 0900, Until Discontinued 08 (Given - Provider: Nathalie Damon RN) 08 (Given - Provider: Tasia Mancia RN) 0824 (Given - Provider: Tasia Mancia, FRANCISCO) balsam-castor oil (VENELEX) ointment 1 Application 1 Application, Topical, 3 TIMES DAILY, First dose on Thu04/25/22 at 1400, Until Discontinued, Apply to bony prominences (like back, heels, elbows, sacrum, etc.) to promote circulation., ICU 1444 (Not Given - Provider: Nathalie Damon RN - Reason: Patient/family refused)2125 (Not Given - Provider: Malika Dhaliwal RN - Reason: Medication not available - Comment: requested from pharmacy) 075 (Not Given - Provider: Tasia Mancia RN - Reason: Other)1311 (Not Given - Provider: Tasia Mancia RN - Reason: Other)2000 (Given - Provider: Malika Dhaliwal RN) 0816 (Not Given - Provider: Tasia Mancia RN - Reason: Other)1400 (Canceled Entry - Provider: System Discharge - Comment: Automatically canceled at discontinue of medication order) carveDILOL (COREG) tablet 25 mg 25 mg, Oral, EVERY 12 HOURS, First dose (after last modification) on Thu04/21/22 at 2100, Until Discontinued, 807 (Given - Provider: Nathalie Damon RN)2119 (Given - Provider: Malika Dhaliwal RN) 810 (Given - Provider: Tasia Mancia RN)2000 (Given - Provider: Malika Dhaliwal RN) 823 (Given - Provider: Tasia Mancia RN) ceFAZolin (ANCEF) 2 g in dextrose 100 mL premix IVPB (COMPLETED) 2 g, Intravenous, Administer over 30 Minutes, EVERY 8 HOURS NON-STANDARD, 2 doses, First dose on Thu04/25/22 at 1700, Last dose on Thu04/26/22 at 0100, 2 doses for 24 hour duration of antibiotic. Pharmacist to adjust., Post-op/Post-Proc 1633 ($$New Bag$$ - Provider: Nathalie Damon RN)1701 (Stopped - Provider: Malika Dhaliwal RN) 0255 ($$New Bag$$ - Provider: Malika Dhaliwal RN)0304 (Rate/Dose Verify - Provider: Malika Dhaliwal RN)0314 (Rate/Dose Verify - Provider: Malika Dhaliwal RN)0333 (Stopped - Provider: Malika Dhaliwal RN) cholecalciferol (VITAMIN D3) tablet 5,000 Units 5,000 Units, Oral, DAILY, First dose on Thu04/20/22 at 0900, Until Discontinued 810 (Given - Provider: Nathalie Damon RN) 810 (Given - Provider: Tasia Mancia RN) 823 (Given - Provider: Tasia Mancia RN) Clopidogrel (PLAVIX) tablet 75 mg 75 mg, Oral, DAILY, First dose (after last modification) on Thu04/25/22 at 0800, Until Discontinued 800 (Given - Provider: Nathalie Damon RN) 810 (Given - Provider: Tasia Mancia RN) 0824 (Given - Provider: Tasia Mancia RN) Enoxaparin Sodium (LOVENOX) injection 40 mg(Linked Group 1) 40 mg, Subcutaneous, DAILY, First dose on 04/20/22 at 0900, Until Discontinued, , Indications: DVT/PE prophylaxis 0900 (Not Given - Provider: Nathalie Damon RN - Reason: Other - Comment: auto held by provider)1734 (Unheld by provider - Provider: Tito Hunt MD) 08 (Given - Provider: Tasia Mancia RN) 0824 (Given - Provider: Tasia Mancia RN) Ezetimibe (ZETIA) 10 mg 10 mg, Oral, DAILY, First dose on 04/20/22 at 0900, Until Discontinued 0808 (Given - Provider: Nathalie Damon RN) 08 (Given - Provider: Tasia Mancia RN) 08 (Given - Provider: Tasia Mancia RN) furOSEmide (LASIX) injection 20 mg (COMPLETED) 20 mg, Intravenous, ONCE, 1 dose, On 04/26/22 at 1845, Administer by slow IV push at a rate not exceeding 40mg/min 1851 (Given - Provider: Tasia Mancia RN) furOSEmide (LASIX) tablet 20 mg 20 mg, Oral, DAILY, First dose on 04/26/22 at 1200, Until Discontinued 1317 (Given - Provider: Tasia Mancia RN) 0824 (Given - Provider: Tasia Mancia RN) hydrALAZINE (APRESOLINE) injection 5 mg (COMPLETED) 5 mg, Intravenous, ONCE, 1 dose, On Thu04/25/22 at 1415 1346 (Given - Provider: Nathalie Damon RN) Insulin lispro (HUMALOG) injection(Linked Group 2) Subcutaneous, 4 TIMES DAILY WITH MEALS & AT BEDTIME, First dose on 04/20/22 at 0800, Until Discontinued, Insulin to carb ratio: Standard: 1 unit insulin = 10 grams carbs every meal and at bedtime Correction Factor: 151-200 = 1 unit; 201-250 = 2 units; 251-300 = 3 units; 301-350 = 4 units; 351-400 = 5 units; Kwikpen: Prime pen before each injection; refer to Pen Priming and Care Handout for further details. Warning! Confirm patient. Insulin pen is for labeled individual patient use ONLY. 0821 (Not Given - Provider: Nathalie Damon RN - Reason: NPO)1445 (Not Given - Provider: Nathalie Damon RN - Reason: Other - Comment: patient not eating)1700 (Not Given - Provider: Malika Dhaliwal RN - Reason: Other - Comment: not administered during dayshift)2118 (Given - Provider: Malika Dhaliwal RN) 0958 (Given - Provider: Tasia Mancia RN)1420 (Given - Provider: Tasia Mancia RN - Comment: Late lunch)1854 (Given - Provider: Tasia Mancia RN)2013 (Given - Provider: Malika Dhaliwal RN) 1001 (Given - Provider: Tasia Mancia RN - Comment: Late breakfast)1314 (Not Given - Provider: Tasia Mancia RN - Reason: Other - Comment: Patient discharged) Sertraline (ZOLOFT) tablet 25 mg (CANCELED) 25 mg, Oral, DAILY, First dose on 04/20/22 at 0900, Until Discontinued 08 (Given - Provider: Nathalie Damon RN) 0811 (Given - Provider: Tasia Mancia RN) Sertraline (ZOLOFT) tablet 25 mg (COMPLETED) 25 mg, Oral, ONCE, 1 dose, On 04/26/22 at 1200 1316 (Given - Provider: Tasia Mancia RN) Sertraline (ZOLOFT) tablet 50 mg 50 mg, Oral, DAILY, First dose (after last modification) on 04/27/22 at 0900, Until Discontinued 0824 (Given - Provider: Tasia Mancia RN) Vancomycin HCl in NaCl (VANCOCIN) 1,000 mg in 200 ml NS premix IVPB (COMPLETED) 1,000 mg, Intravenous, Administer over 120 Minutes, EVERY 12 HOURS NON-STANDARD, 1 dose, First dose on 04/25/22 at 2000, For 1 dose and 24 hour duration of antibiotic. Pharmacists to adjust. Extravasation Risk, Post-op/Post-Proc 2122 ($$New Bag$$ - Provider: Malika Dhaliwal, RN)2125 (Rate/Dose Verify - Provider: Malika Dhaliwal RN)2320 (Stopped - Provider: Malika Dhaliwal RN) PRN Medication Order 04/25/2022 04/26/2022 04/27/2022 ceFAZolin (ANCEF) 2 g in dextrose 100 mL premix IVPB (COMPLETED) 2 g, Intravenous, Administer over 30 Minutes, REHABILITATION LIAISON TO PROCEDURE, 1 dose, Starting on Thu04/25/22 at 0600, Until Thu04/25/22 at 0955, Other, Preoperative antibiotics, Nursing to obtain from [facility] pyxis. Call pharmacy for emergent doses or direct transfer to OR. Initiate antibiotic administration 30-60 minutes prior to surgical incision and complete administration prior to surgical incision., Pre-op/Pre-Proc 0900 ($$New Bag$$ - Provider: Gely Marvin RN)0955 (Stopped - Provider: Gely Marvin RN) Dextrose 50% injection 7.5-25 g(Linked Group 2) 7.5-25 g, Intravenous, ADMINISTER DIRECTED, Starting on 04/20/22 at 0416, Until 04/27/22 at 1518, Blood glucose <80 mg/dL, For patients who are not alert, are NPO, or are on IV insulin infusion administer as directed per Hypoglycemia in Non- Adults Clinical Practice Guideline. For Blood Glucose: 60-79 mg/dL administer 7.5 gm (15ml); 45-59 mg/dL administer 12.5 gm (25ml); less than 45mg/dL administer 25gm (50ml). ++ If additional dextrose 50% needed, contact pharmacy or obtain from [facility] cart ++ Dextrose 50% injection 7.5-25 g 7.5-25 g, Intravenous, ADMINISTER DIRECTED, Starting on Thu04/25/22 at 1051, Until 04/27/22 at 1518, Blood glucose <80 mg/dL, Blood glucose less than 80., Administer 7.5 g (15mL) for Blood Glucose of 60-79. Administer 12.5 g (25mL) for Blood Glucose of 45-59; and Administer 25 g (50mL) for Blood Glucose of less than 45. ++ If additional dextrose 50% needed, contact pharmacy or obtain from [facility] cart ++ , Post-op/Post-Proc Docusate (COLACE) capsule 100 mg 100 mg, Oral, 2 TIMES DAILY NEEDED, Starting on Thu04/20/22 at 0311, Until Thu04/27/22 at 1518, Constipation 1st Line, Hold if diarrhea. fentaNYL (SUBLIMAZE) injection (CANCELED) Intravenous, NEEDED, Starting on Thu04/25/22 at 0940, Until Thu04/25/22 at 1058, Intra-op/Intra-Proc 0940 (Given - Provider: Barbie Garg RN)0955 (Given - Provider: Barbie Garg RN)1040 (Given - Provider: Barbie Garg RN) glucose (GLUTOSE) 40 % oral gel 1-2 Tube(Linked Group 2) 1-2 Tube, Oral, ADMINISTER DIRECTED, Starting on Thu04/20/22 at 0416, Until Thu04/27/22 at 1518, Blood glucose <80 mg/dL, For patients who are alert, able to tolerate PO intake and with intact cognitive status administer as directed per Hypoglycemia in Non- Adults Clinical Practice Guideline. For Blood Glucose: 60-79 mg/dL administer 1 tube; 45-59 mg/dl administer 1.5 tubes; less than 45 mg/dL administer 2 tubes. Each tube of 37.5g delivers 15g of carbohydrate. Heparin injection (CANCELED) NEEDED, Starting on Thu04/25/22 at 1013, Until Thu04/25/22 at 1058, Intra-op/Intra-Proc 1013 (Given - Provider: Barbie Garg RN)1022 (Given - Provider: Barbie Garg RN) hydroCODone-acetaminophen (NORCO) 5-325 MG per tablet 1 tablet 1 tablet, Oral, EVERY 6 HOURS NEEDED, Starting on Thu04/25/22 at 1051, Until Thu04/27/22 at 1518, Severe Pain, Maximum dose of acetaminophen is 4000 mg from all sources in 24 hours. May give 1 tab every 6 hours orally for Severe pain., Post-op/Post-Proc Insulin lispro (HUMALOG) injection(Linked Group 2) Subcutaneous, NEEDED, Starting on Thu04/20/22 at 0416, Until Thu04/27/22 at 1518, Other, As needed for snacks, Insulin to carb ratio: Standard: 1 unit insulin = 10 grams carbs Correction Factor: not to be used with this order. Kwikpen: Prime pen before each injection; refer to Pen Priming and Care Handout for further details. Warning! Confirm patient. Insulin pen is for labeled individual patient use ONLY. 1637 (Given - Provider: Nathalie Damon, RN) iodixanol (VISIPAQUE) injection 320 mg/mL for [facility] IR (CANCELED) Intra-arterial, NEEDED, Starting on Thu04/25/22 at 1032, Until Thu04/25/22 at 1058, Intra-op/Intra-Proc 1032 (Given - Provider: Barbie Garg RN) Lidocaine 2 % injection (CANCELED) Other, NEEDED, Starting on Thu04/25/22 at 0949, Until Thu04/25/22 at 1058, Intra-op/Intra-Proc 0949 (Given - Provider: Tito Bartholomew MD)1008 (Given - Provider: Tito Bartholomew MD) magnesium oxide (MAG-OX) tablet 800 mg 800 mg, Oral, ADMINISTER DIRECTED, Starting on 04/20/22 at 0311, Until 04/27/22 at 1518, See admin instructions, For Magnesium 1.6 - 2.0, give 800 mg of Magnesium oxide. Magnesium sulfate 4 g in sterile water 50 ml premix IVPB 4 g, Intravenous, Administer over 4 Hours, ADMINISTER DIRECTED, Starting on 04/20/22 at 0311, Until 04/27/22 at 1518, Other, Magnesium Replacement Therapy, Magnesium Replacement Therapy: 1. If Magnesium less than 1.6, give 4 g Magnesium Sulfate IVPB over 4 hours (may give over 1 hour if arrhythmias present). midazolam (VERSED) injection (CANCELED) Intravenous, NEEDED, Starting on Thu04/25/22 at 0940, Until Thu04/25/22 at 1058, Intra-op/Intra-Proc 0940 (Given - Provider: Barbie Garg RN) Ondansetron 4mg/2ml (ZOFRAN) injection 4 mg 4 mg, Intravenous, EVERY 4 HOURS NEEDED, Starting on Thu04/25/22 at 1051, Until Thu04/27/22 at 1518, Nausea / Vomiting, Post-op/Post-Proc Potassium Bicarb-Citric Acid (Effer-K) 20 MEQ effervescent tablets for oral solution 20-40 mEq 20-40 mEq, Oral, ADMINISTER DIRECTED, Starting on 04/21/22 at 0956, Until 04/27/22 at 1518, Other, See administration instructions, If SCr 2.0 - 2.5 mg/dL 1. For Potassium 3.6-4.0, give 20 mEq potassium via enteral route. 2. If Potassium less than 3.6, give 40 mEq potassium via enteral route, recheck in AM. If SCr greater than 2.5 and potassium less than 4.0, Contact MD/TOYIN for replacement order Do not swallow whole. Dissolve completely in 3-4 ounces of water or cold juice before drinking. If administering via J tube, dilute in sterile water, wait for tablet to stop fizzing, swirl the solution and draw into a syringe suitable for attaching to the tube. After administration, flush tube with 15-30 ml water. Potassium Bicarb-Citric Acid (Effer-K) 20 MEQ effervescent tablets for oral solution 40-60 mEq 40-60 mEq, Oral, ADMINISTER DIRECTED, Starting on 04/21/22 at 0956, Until 04/27/22 at 1518, Other, See admin instructions, If SCr less than 2.0 mg/dL 1. For Potassium 3.6 - 4.0, give 40 mEq of potassium via enteral route, recheck in the AM. 2. For Potassium less than 3.6, give 60 mEq potassium via enteral route, recheck in 8 hours. 3. If potassium is low please administer magnesium first if indicated. Do not swallow whole. Dissolve completely in 3-4 ounces of water or cold juice before drinking. If administering via J tube, dilute in sterile water, wait for tablet to stop fizzing, swirl the solution and draw into a syringe suitable for attaching to the tube. After administration, flush tube with 15-30 ml water. 0706 (Given - Provid er: Malika Dhaliwal RN) Protamine injection (CANCELED) Administer over 5 Minutes, NEEDED, Starting on Thu04/25/22 at 1031, Until Thu04/25/22 at 1058, Intra-op/Intra-Proc 1031 (Given - Provider: Barbie Garg RN - Comment: TEST DOSE)1035 (Given - Provider: Barbie Garg RN) Sodium chloride (OCEAN) 0.65 % nasal spray 2 spray 2 spray, Nasal, NEEDED, Starting on Thu04/21/22 at 1930, Until 04/27/22 at 1518, Congestion Sodium chloride 0.9% IV solution 250 mL Intravenous, at 20 mL/hr, NEEDED, Starting on Thu04/20/22 at 0311, Until Thu04/27/22 at 1518, Carrier Fluid - See Admin. Inst, 250mL 0.9NS to be used as carrier fluid for intermittent small volume or piggyback medication administration as needed. Infusion rate of the carrier fluid should be set at 20 mL/hr unless the rate as the intermittent medication is less than 20 mL/hr. For intermittent medications with a rate less than 20 mL/hr set the carrier fluid at that rate of the intermittent or piggy back medication. Vancomycin HCl in NaCl (VANCOCIN) 1,000 mg in 200 ml NS premix IVPB (COMPLETED) 1,000 mg, Intravenous, Administer over 60 Minutes, REHABILITATION LIAISON TO PROCEDURE, 1 dose, Starting on Thu04/25/22 at 0600, Until Thu04/25/22 at 0900, Other, Preoperative antibiotics, Nursing to obtain from [facility]. Call pharmacy for emergent doses or direct transfer to OR. Infusion must complete prior to surgical incision. Initiate antibiotic administration 60-120 minutes prior to surgical incision (depending on Administer Over Time). Extravasation Risk, Pre-op/Pre-Proc 0800 ($$New Bag$$ - Provider: Nathalie Damon RN)0900 (Stopped - Provider: Gely Marvin RN) Linked Groups Order Group 1: Enoxaparin Sodium (LOVENOX) injection 40 mgJump to med 40 mg, Subcutaneous, DAILY, First dose on Thu04/20/22 at 0900, Until Discontinued

Indications: DVT/PE prophylaxis And PLATELET COUNT - baseline (COMPLETED) Routine, ONE TIME, On Thu04/20/22 at 0503, For 1 occurrence, New collection And PLATELET COUNT (CANCELED) Routine, EVERY 3 DAYS AM LAB, First occurrence on Thu04/23/22 at 0500, Until Specified, New collection Group 2: Insulin lispro (HUMALOG) injectionJump to med Subcutaneous, 4 TIMES DAILY WITH MEALS & AT BEDTIME, First dose on 04/20/22 at 0800, Until Discontinued
Insulin to carb ratio: Standard: 1 unit insulin = 10 grams carbs every meal and at bedtime Correction Factor: 151-200 = 1 unit; 201-250 = 2 units; 251-300 = 3 units; 301-350 = 4 units; 351-400 = 5 units; Kwikpen: Prime pen before each injection; refer to Pen Priming and Care Handout for further details. Warning! Confirm patient. Insulin pen is for labeled individual patient use ONLY.
And Insulin lispro (HUMALOG) injectionJump to med Subcutaneous, NEEDED, Starting on Thu04/20/22 at 0416, Until Thu04/27/22 at 1518, Other, As needed for snacks
Insulin to carb ratio: Standard: 1 unit insulin = 10 grams carbs Correction Factor: not to be used with this order. Kwikpen: Prime pen before each injection; refer to Pen Priming and Care Handout for further details. Warning! Confirm patient. Insulin pen is for labeled individual patient use ONLY.
And BLOOD GLUCOSE (POC DEVICE) (CANCELED) Routine, 4 TIMES DAILY BEFORE MEALS & AT BEDTIME, First occurrence on Thu04/20/22 at 0745
If any Blood Glucose (POC) is greater than 300mg/dl, then repeat Blood Glucose (POC) in 2 hours. If the initial blood glucose was greater than 300mg/dl and if second blood glucose is greater than 200md/dl, then notify [employer]. And BLOOD GLUCOSE (POC DEVICE) (CANCELED) Routine, DIRECTED, Starting on 04/20/22 at 0416, Until Specified
For all Blood Glucose LESS THAN 80 mg/dL, treat per Hypoglycemia in Non- Adults Clinical Practice Guideline (CPG) and recheck glucose 15 min after treatment. Repeat per CPG until glucose GREATER THAN 80 mg/dL. Once glucose IS GREATER THAN 80 mg/dL, recheck Blood Glucose every 1 hour x2, then resume as previously ordered. For Blood Glucose LESS THAN 80 mg/dL on admission OR LESS than 45 mg/dL at any time, obtain POC Blood Glucose every 4 hours for 6 occurrences AFTER treating per CPG. Obtain blood glucose for symptoms of hypoglycemia: sweating, shaking, fatigue, rapid pulse, slow thinking & dizziness. Notify physician w/results. Obtain blood glucose for symptoms of hyperglycemia: excessive thirst, blurred vision, excessive urination & tiredness. Notify physician w/results. If patient NPO, obtain POC Blood Glucose prior to administration of any insulin products. And COMMUNICATION ORDER FOR NURSING CARE: For Blood Glucose LESS THAN 80 mg/dl (CANCELED) Routine, CONTINUOUS, Starting on 04/20/22 at 0417, Until Specified
For Blood Glucose LESS THAN 80 mg/dl follow Hypoglycemia in Non- Adults Clinical Practice Guideline (CPG) And Dextrose 50% injection 7.5-25 gJump to med 7.5-25 g, Intravenous, ADMINISTER DIRECTED, Starting on 04/20/22 at 0416, Until 04/27/22 at 1518, Blood glucose <80 mg/dL
For patients who are not alert, are NPO, or are on IV insulin infusion administer as directed per Hypoglycemia in Non- Adults Clinical Practice Guideline. For Blood Glucose: 60-79 mg/dL administer 7.5 gm (15ml); 45-59 mg/dL administer 12.5 gm (25ml); less than 45mg/dL administer 25gm (50ml). ++ If additional dextrose 50% needed, contact pharmacy or obtain from [facility] cart ++
And glucose (GLUTOSE) 40 % oral gel 1-2 TubeJump to med 1-2 Tube, Oral, ADMINISTER DIRECTED, Starting on 04/20/22 at 0416, Until 04/27/22 at 1518, Blood glucose <80 mg/dL
For patients who are alert, able to tolerate PO intake and with intact cognitive status administer as directed per Hypoglycemia in Non- Adults Clinical Practice Guideline. For Blood Glucose: 60-79 mg/dL administer 1 tube; 45-59 mg/dl administer 1.5 tubes; less than 45 mg/dL administer 2 tubes. Each tube of 37.5g delivers 15g of carbohydrate.
And NOTIFY PHYSICIAN, Blood Glucose LESS THAN 80 mg/dl (CANCELED) Routine, CONTINUOUS, Starting on 04/20/22 at 0417, Until Specified
Who to Notify: [employer]
For all Blood Glucose LESS THAN 80 mg/dl, notify [employer] after treatment per Hypoglycemia in Non- Adults Clinical Practice Guideline And Carbohydrate counts with meals (CANCELED) Routine, CONTINUOUS, Starting on 04/20/22 at 0417, Until Specified
Carbohydrate counts are to be done after each patient meal and with snack. Care Teams (unrecognized sec tion and content) Attendance Officer Relationship Specialty Start Date End Date Murphy Burton MD [address] [place] [address] PCP - General Family Medicine 03/29/22 Team Status: Active Member Role Status Dates Dr. Murphy Burton DO Family Provider Active Dr. Murphy Burton DO Primary Care Provider Active Team Status: Inactive Member Role Status Dates Dr. Murphy Burton DO Primary Care Provider, Referring Provider Active Jeni Knox PA, PA Attending Provider Active Team Status: Active Member Role Status Dates Dr. Murphy Burton DO Primary Care Provider Active Dr. Narendra Almonte MD Attending Provider Active Team Status: Active Member Role Status Dates Dr. Murphy Burton DO Primary Care Provider Active Dr. Helio Espinoza MD Emergency Provider Active Dr. Shy Callejas MD Admit Provider, Attending Provider , Other Provider Active Dr. Yuli Lucas MD Other Provider Active Team Status: Active Member Role Status Dates Dr. Murphy Burton DO Primary Care Provider Active Dr. Helio Espinoza MD Emergency Provider Active Dr. Shy Callejas MD Admit Provider, Other Provider Act yuko Dr. Yuli Lucas MD Attending Provider, Other Provid er Active Team Status: Active Member Role Status Dates Dr. Murphy Burton DO Primary Care Provider Active Dr. Helio Espinoza MD Emergency Provider Active Dr. Shy Callejas MD Admit Provider, Other Provider Act yuko Dr. Yuli Lucas MD Other Provider Active Dr. Antwon Malin MD Attending Provider, Other Provid er Active Team Status: Active Member Role Status Dates Dr. Murphy Burton DO Primary Care Provider Active Dr. Helio Espinoza MD Emergency Provider Active Dr. Shy Callejas MD Admit Provider, Other Provider Act yuko Dr. Yuli Lucas MD Attending Provider, Other Provid er Active Dr. Antwon Malin MD Other Provider Active Team Status: Active Member Role Status Dates Dr. Murphy Burton , DO Primary Care Provider Active Dr. Helio Espinoza MD Emergency Provider Active Dr. Shy Callejas MD Admit Provider, Other Provider Act yuko Dr. Yuli Lucas MD Other Provider Active Dr. Sung Sands , DO Other Provider Active Dr. Antwon Malin MD Other Provider Active Dr. Escobar Rojas MD Attending Provider Active Team Status: Active Member Role Status Dates Dr. Murphy Burton DO Primary Care Provider Active Dr. Helio Espinoza MD Emergency Provider Active Dr. Shy Callejas MD Admit Provider, Other Provider Act yuko Dr. Yuli Lucas MD Other Provider Active Dr. Sung Sands , Attending Provider, Other Pro vider Active Dr. Antwon Malin MD Other Provider Active Team Status: Active Member Role Status Dates Dr. Murphy Burton DO Primary Care Provider Active Jeni Garnett Attending Provider Active Team Status: Inactive Member Role Status Dates Dr. Murphy Burton DO Primary Care Provider Active Jeni Knox PA, PA Attending Provider Active Team Status: Inactive Member Role Status Dates Dr. Murphy Burton DO Primary Care Provider Active Dr. Helio Espinoza MD Emergency Provider Active Dr. Shy Callejas MD Admit Provider, Other Provider Act yuko Dr. Yuli Lucas MD Other Provider Active Dr. Sung Sands , DO Attending Provider Active Dr. Antwon Malin MD Other Provider Active Team Status: Inactive Member Role Status Dates Dr. Murphy Burton DO Primary Care Provider Active Christie Boland MD Emergency Provider Active Team Status: Inactive Member Role Status Dates Dr. Murphy Burton DO Primary Care Provider Active Dr. Reno Curry DO Emergency Provider Active Attendance Officer Relationship Specialty Start Date End Date Murphy Burton MD [address] [place] [address] PCP - General Family Medicine 03/29/22 Attendance Officer Relationship Specialty Start Date End Date Murphy Burton MD [address] [place] [address] PCP - General Family Medicine 03/29/22 Team Status: Active Member Role/Relationship Status Dates Dr. Murphy Burton DO Family Provider Active Dr. Murphy Burton DO Primary Care Provider Active Team Status: Inactive Member Role/Relationship Status Dates Dr. Murphy Burton DO Primary Care Provider Active Start: October 04, 2024 End: October 04, 2024 Dr. Murphy Burton DO Referring Provider Active Start: October 04, 2024 End: October 04, 2024 Jeni ZIMMERMAN, PA Attending Provider Active Start: October 04, 2024 End: October 04, 2024 Team Status: Inactive Member Role/Relationship Status Dates Dr. Murphy Burton DO Primary Care Provider Active Start: December 06, 2024 End: December 06, 2024 Dr. Murphy Burton DO Referring Provider Active Start: December 06, 2024 End: December 06, 2024 Jeni ZIMMERMAN, PA Attending Provider Active Start: December 06, 2024 End: December 06, 2024 Reason for Visit (unrecogniz ed section and content) Specialty Diagnoses / Procedures Referred By Contac t Referred To Contact Echocardiography Diagnoses S/p TAVR (transcatheter aortic valve replacement), bioprosthetic Procedures ECHOCARDIOGRAM DC ECHO HEART XTHORACIC,COMPLETE W DOPPLER Kalen'Jacinta Krishnan, [employer] MANAGER [address] [place] [address] [address] [place] [address] Referral ID Status Reason Start Date Expiration Date Visits Re quested Visits Authorized [id number] Closed 04/25/2022 05/20/2023 1 1 INFORMATION SOURCE (unrecogn ized section and content) DATE CREATED AUTHOR 06/13/2022 [facility] DATE CREATED AUTHOR AUTHOR'S MARIBEL AMAYA 02/08/2025 [facility] FOR RECORDS PERTAINING TO PATIENTS WHO ARE OR HAVE BEEN ENROLLED IN A CHEMICAL DEPENDENCY/SUBSTANCEABUSE PROGRAM, SOME INFORMATION MAY BE OMITTED. This clinical summary was aggregated from multiple sources. Caution should be exercised in using it in the provision of clinical care. This summary normalizes information from multiple sources, and as a consequence, information in this document may materially change the coding, format and clinical context of patient data. In addition, data may be omitted in some cases. CLINICAL DECISIONS SHOULD BE BASED ON THE PRIMARY CLINICAL RECORDS. [employer] provides no warranty or guarantee of the accuracy or completeness of information in this document.
--- NOTE | 2025-02-27 22:15 | PCM.HP.STD ---
HPI - General General Date of Admission: 02/27/25 Date of Service: 02/27/25 Chief Complaint: Shortness of breath HPI Narrative SOPHIA PRATHER, is a 89 F who presents to the emergency room with acute onset of shortness of breath. Patient has significant past medical history of coronary artery disease, essential hypertension, hyperlipidemia, diabetes type 2, TAVR procedure following similar presentation previously with shortness of breath. Upon arrival patient was not able to speak in complete sentences and was in acute respiratory distress. She was placed on BiPAP and did improvement in the emergency room. Her family member states that she was hypertensive at home blood pressure in the 200s for which she took 2 doses of hydralazine but was unable to bring her blood pressure down and then she became more short of breath so she called the squad and brought her to the hospital. Patient denies any chest pain, fevers or chills or nausea or vomiting at this present time. Patient does have a history of CABG in 2021 and a drug-eluting stent placed in 2022 at [facility] and then later had TAVR procedure performed. Her ejection fraction following that procedure was 50 to 55% with stage II diastolic dysfunction. She had a follow-up echocardiogram in 2023 which showed an ejection fraction of 55%. Laboratory studies show white blood cell count of 14.7, hemoglobin 13.1, hematocrit 40.7, platelets 229, sodium 139, potassium 3.9, chloride 100, bicarb 23.9, BUN 31, creatinine 1.13, blood gas pH 7.34 pCO2 43, pO2 59 on an FiO2 of 40% BiPAP. Initial troponin was 45 and pro BN TP was 718. Chest x-ray reveals congestive heart failure with small layering of bilateral pleural effusions. Due to acute respiratory distress patient will be placed in the intensive care unit continued on BiPAP therapy. Patient expressed wishes to remain full code at this present time but will give consideration and update us if that were to change. [facility] Medical History Moderate to severe aortic stenosis Depression Diabetes Osteoporosis Non-smoker Coronary artery disease Hypertension TIA (transient ischemic attack) Nonrheumatic aortic (valve) stenosis Essential hypertension Presence of stent in coronary artery (~04/04/22) Carotid stenosis, left Occlusion and stenosis of left carotid artery Nonrheumatic mitral (valve) insufficiency Aortic valve disorders Atherosclerotic heart disease of [place] coronary artery without angina pectoris HLD (hyperlipidemia) Occlusion and stenosis of right carotid artery PAD (peripheral artery disease) Home Medications ?Medication ?Instructions ?Recorded ?Last Taken ?Type aspirin 81 mg tablet,delayed 81 mg PO DAILY HEART HEALTH 04/28/18 03/20/22 History release omega-3 250 [id number] 2.5 1 cap PO BID EYE HEALTH 01/28/21 03/20/22 History mg-zeaxanthin 0.5 mg capsule ([facility]) vitamin B complex 1 cap PO DAILY SUPPLEMENT 01/28/21 03/20/22 History ezetimibe 10 mg tablet 10 mg PO DAILY CHOLESTEROL 03/20/22 03/20/22 History multivitamin with minerals 1 tab PO DAILY SUPPLEMENT 03/20/22 03/20/22 History hydralazine 10 mg tablet 10 mg PO TID PRN hypertension 05/15/22 02/27/25 19:00 History sertraline 50 mg tablet 50 mg PO DAILY 05/15/22 Unknown History potassium chloride 20 mEq 20 meq PO BIDCM 30 days #60 tabs 10/04/24 Unknown Rx tablet,extended release(part/cryst) furosemide 40 mg tablet (Lasix) 40 mg PO QAM 12/06/24 Unknown History lisinopril 10 mg tablet 10 mg PO DAILY 02/07/25 Unknown History lisinopril 10 mg tablet 20 mg PO QHS 02/07/25 Unknown History metformin 500 mg tablet 500 mg PO ONCE blood sugar 02/07/25 Unknown History Allergy/AdvReac Type Severity Reaction Status Date / Time rosuvastatin AdvReac Severe Myalgias Verified 02/27/25 20:00 simvastatin AdvReac Severe myalgias Verified 02/27/25 20:00 Family History Father CAD (coronary artery disease) Hypertension Myocardial infarction, Onset Age: 80 Sister CVA (cerebral vascular accident), Onset Age: 66 Diabetes Arthritis Mother Cancer Thyroid Surgical History History of transcatheter aortic valve replacement (TAVR) (~04/25/22) History of right and left heart catheterization (LHC) (~03/21/22) Presence of coronary angioplasty implant and graft (~07/10/16) History of left-sided carotid endarterectomy (05/05/17) History of hysterectomy History of CEA (carotid endarterectomy) (~2010) Social History Smoking Status: Never smoker second hand exposure: No alcohol intake: never substance use type: does not use caffeine: No ROS Constitutional Constitutional: Reports fatigue; Denies chills or fever(s) Eyes Eyes: Denies blurry vision ENT HEENT: Denies abnormal hearing or headache(s) Cardiovascular Cardiovascular: Denies chest pain Respiratory/Chest Respiratory/Chest: Reports cough and shortness of breath at rest Gastrointestinal Gastrointestinal: Denies abdominal pain Genitourinary Genitourinary: Denies dysuria Musculoskeletal Musculoskeletal: Denies back pain Integumentary Integumentary: Denies dry skin Neurologic Neurologic: Denies confusion, dizziness or focal weakness Psychiatric Psychiatric: Denies anxiety Hematologic/Lymphatic Hematologic/Lymphatic: Denies anemia Vital Signs Vital Signs Vital Signs: 02/27/25 19:49 02/27/25 19:49 02/27/25 19:51 Temperature 97.4 F L 97.4 F L Temperature Source Temporal Temporal Pulse Rate 109 H 107 H 106 H Respiratory Rate 19 H 39 H 28 H Respiratory Effort Respiratory Depth Respiratory Pattern Blood Pressure 171/78 H 171/78 H Blood Pressure Mean 109 109 Blood Pressure Source Blood Pressure Position Blood Pressure Location Pulse Ox 94 95 94 Oxygen Delivery Method Bi-pap Bi-pap Fraction of Inspired Oxygen (FIO2) 40 40 40 02/27/25 20:00 02/27/25 20:05 02/27/25 20:05 Temperature 97.4 F L Temperature Source Axillary Pulse Rate 107 H Respiratory Rate 39 H Respiratory Effort Short of Breath Labored Accessory Muscle Use Pursed Lip Short of Breath Labored Accessory Muscle Use Pursed Lip Respiratory Depth Shallow Respiratory Pattern Tachypnea Tachypnea Blood Pressure 171/78 H Blood Pressure Mean 109 Blood Pressure Source Blood Pressure Position Blood Pressure Location Pulse Ox 95 Oxygen Delivery Method Bi-pap Bi-pap Fraction of Inspired Oxygen (FIO2) 40 40 02/27/25 20:06 02/27/25 20:15 02/27/25 20:30 Temperature Temperature Source Pulse Rate 102 H 98 97 Respiratory Rate 20 H 23 H 19 H Respiratory Effort Respiratory Depth Respiratory Pattern Blood Pressure 180/74 H 153/78 H Blood Pressure Mean 105 98 Blood Pressure Source Blood Pressure Position Blood Pressure Location Pulse Ox 97 95 97 Oxygen Delivery Method Bi-pap Fraction of Inspired Oxygen (FIO2) 40 02/27/25 20:45 02/27/25 21:00 02/27/25 21:04 Temperature 98.4 F Temperature Source Axillary Pulse Rate 85 85 Respiratory Rate 16 Respiratory Effort Respiratory Depth Respiratory Pattern Blood Pressure 144/60 H 150/63 H 150/63 H Blood Pressure Mean 86 87 92 Blood Pressure Source Monitor Blood Pressure Position Semi-Fowlers Blood Pressure Location Left Arm Pulse Ox 97 Oxygen Delivery Method Bi-pap Fraction of Inspired Oxygen (FIO2) 40 02/27/25 21:12 02/27/25 21:14 02/27/25 21:15 Temperature Temperature Source Pulse Rate 83 83 83 Respiratory Rate 18 21 H 17 Respiratory Effort Respiratory Depth Respiratory Pattern Blood Pressure 138/62 H 138/62 H 132/61 H Blood Pressure Mean 85 87 82 Blood Pressure Source Blood Pressure Position Blood Pressure Location Pulse Ox 96 96 96 Oxygen Delivery Method Bi-pap Bi-pap Bi-pap Fraction of Inspired Oxygen (FIO2) 40 40 40 02/27/25 21:30 02/27/25 22:00 Temperature Temperature Source Pulse Rate 83 85 Respiratory Rate 19 H 18 Respiratory Effort Respiratory Depth Respiratory Pattern Blood Pressure 134/59 H 164/66 H Blood Pressure Mean 81 94 Blood Pressure Source Blood Pressure Position Blood Pressure Location Pulse Ox 98 100 Oxygen Delivery Method Bi-pap Fraction of Inspired Oxygen (FIO2) 40 Weight Weight: 150 lb 12.739 oz Body Mass Index (BMI) 30.4 Physical Exam Const alert and oriented x3 General Appearance: cooperative HEENT normocephalic and head/scalp atraumatic Eyes PERRL Neck no lymphadenopathy Lymph Lymphatic: no lymphadenopathy noted Resp Effort and Inspection: tachypneic, respiratory distress and labored Auscultation: Negative for rhonchi or wheezes Cardio regular rate, regular rhythm, S1 normal heart sound and S2 normal heart sound Heart Sounds: murmur systolic GI normal to inspection, nondistended, normoactive bowel sounds Extremity normal capillary refill General Extremity: Negative for edema Skin General Skin Exam: no breakdown Neuro no focal motor deficits and no sensory deficits noted Speech: speech normal Psych thought process normal, cooperative and affect normal Appearance: appropriate Results Lab / Micro Data 02/27/25 20:00 02/27/25 20:00 Labs: Laboratory Results - last 24 hr 02/27/25 20:00: WBC 14.7 H, RBC 4.60, Hgb 13.1, Hct 40.7, MCV 88.5, MCH 28.5, MCHC 32.2, RDW Std Deviation 41.1, RDW Coeff of Jennifer 12.7, Plt Count 229, MPV 10.8, Immature Gran % (Auto) 0.500, Neut % (Auto) 62.0, Lymph % (Auto) 26.1, Grant % (Auto) 8.1, Eos % (Auto) 2.8, Baso % (Auto) 0.5, Absolute Neuts (auto) 9.1 H, Absolute Lymphs (auto) 3.83, Nucleated RBC % 0, Sodium 139, Potassium 3.9, Chloride 100, Carbon Dioxide 23.9, Anion Gap 15, BUN 31 H, Creatinine 1.13, Estim Creat Clear Calc 29.12 L, Est GFR (MDRD) Non-Af 47 L, BUN/Creatinine Ratio 27.2 H, Glucose 255 H, Lactic Acid 1.4, Calcium 9.4, Total Bilirubin 0.29, AST 33 H, ALT 31, Alkaline Phosphatase 95, Troponin T High Sens 45 H, NT pro BNP II 718, Total Protein 7.3, Albumin 4.4, Globulin 2.9, Albumin/Globulin Ratio 1.5 02/27/25 20:08: POC Glucose 249 H ABG Data ABG results: ABG 02/27/25 20:26 Specimen Type ART Sample Site R Radial pH 7.34 L Bicarbonate Actual 23.5 Total CO2 25 Base Excess -2 O2 Saturation 88 L O2 % 40.0 ABG pCO2 43.2 ABG pO2 59 L David Test Positive O2 Delivery Device BiPAP Vent Mode Not entered Clinical Comments 15. 6. 40% Imaging Radiology Impression Chest X-Ray 02/27/25 20:25 IMPRESSION: CHF with small bilateral layering pleural effusions. Reading Location: [id number] Assessment & Plan Assessment/Plan (1) Elevated troponin: (2) Hypertensive urgency: (3) Acute exacerbation of CHF (congestive heart failure): (4) Acute hypoxemic respiratory failure: (5) History of transcatheter aortic valve replacement (TAVR): (6) History of diabetes mellitus: PLAN: Plan 1 acute respiratory failure?admit patient to the intensive care unit, consult heel varnisher for ICU management. Continue BiPAP therapy initiated the emergency room. Add IV Lasix 40 mg twice daily., Repeat CBC BMP and chest x-ray in a.m. 2 elevated troponin?history of coronary artery disease and history of TAVR valve.?Cycle troponin 3. Hypertensive urgency?continue nitro drip initiated in the emergency room 4. History of diabetes?will monitor sugars every 6 hours and initiate low-dose insulin sliding scale 5. DVT prophylaxis?low molecular weight heparin 6. CODE STATUS full verified Charges/Coding Visit Charges Inpatient E&M: 66279 Init Hosp L3
--- OUTSIDE RECORDS SUMMARY | 2025-02-27 22:24 | XMS RPT_ITS | CCD ---
Author Organization [facility] Care Team Providers Care Spectroscopist Name Role Phone Christine RN, Jessica Louis Unavailable Unavailable FRANCISCO Stafford, Alla Ramirez Unavailable Unavailabl nora Stafford RN, Alla Ramirez Unavailable Unavailabl e Christine RN, Jessica A Unavailable Unavailable Christine RN, Jessica A Unavailable Unavailable Christine RN, Jessica A Unavailable Unavailable Christine SINGH, Jessica A Unavailable Unavailable MD Samir, Dontrell Brock Unavailable FRANCISCO Stafford, Alla Ramirez Unavailable Unavailabl Jenny Ghosh Unavailable Unavailable Jenny King Unavailable Unavailable FRANCISCO Stafford, Alla Ramirez Unavailable Unavailabl e Joe Dormanumi Y Unavailable Unavailable Roof WAFER MACHINE OPERATOR, [facility] Unavailable Jenny King Unavailable Unavailable Christine SINGH, Jessica Louis Unavailable Unavailable MD Samir, Dontrell Brock Unavailable Jose Dorman Unavailable Unavailable Dr. Murphy Burton Primary Care Provider [phone] Dr. Murphy Burton Referring Provider Abilio ZIMMERMAN, [...] Dr. Escobar Rojas Attending Provider Dr. Sung Sansd Attending Provider Murphy Burton MD Primary Care [...] Dr. Murphy Burton DO Primary Care Provider [phone] Dr. Murphy Burton DO Referring Provider Jeni Grijalva Attending Provider [phone] Murphy Burton Referring Unavailable Josephine Murphy Primary [...] Attending Unavailable Papi Ruiz Attending Unavailable Abimael, Sarles Consulting Unavailable Joseph Papi Consulting Unavailable Antwon Vidal Admitting Unavailable Josephine, Murphy Primary Care Unavailable Papi Riuz Attending Unavailable Antwon Vidal Consulting Unavailable Abimael Pillo Consulting Unavailable Abimael, Sarles Attending Unavailable Josephine, Murphy Primary Care Unavailable Josephine, Murphy Referring Unavailable Jeni Grijalva Attending Unavail able Allergies Allergy Classification Reported Allergen(s) Allergy Type Date of Onset Reaction(s) Facility (7 sources) rosuvastatin Drug Allergy 2 Myalgias [facility] (7 sources) Simvastatin Drug Allergy 2 myalgias [facility] (3 sources) Hmg-Coa Reductase Inhibitors (Statins) Propensity to adverse reactions to drug 2 Muscle Spasm, Pain [facility] (1 source) rosuvastatin Drug Allergy 5 [facility] (1 source) Simvastatin Drug Allergy 5 [facility] Medications Current Medications Medication Drug Class(es) [...] One tablet by mouth twice daily LISINOPRIL [id number] Dontrell Dawson MD Start: 07-11-2016 End: 03-04-2017 take 1 tablet by mouth once daily Lisinopril 20 MG tablet Discontinued 20 mg PO DAILY 30 July 11, 2016 10:50am March 04, 2017 4:06pm lutein 2.5 mg / omega-3 acid ethyl esters (group home) 250 mg / zeaxanthin 0.5 mg oral capsule (8 sources) Start: 01-28-2021 End: 04-03-2022 Kedxp-5-Uym-Zbf-Lhv-Rknzndrx in ([facility]) 250-2.5-0.5 mg capsule [...] DAILY March 20, 2022 1:00am SUPPLEMENT OMEGA 6-BFPDDV-HXJGQEYCIS PO (3 sources) OMEGA 3-LUTEIN-Z EAXANTHIN PO Take 0.5 fluid ounces by mouth 2 times daily. 0 Active Mora-3 Fatty Acids (OMEGA-3 FISH OIL PO) (3 sources) take 2 capsules by mouth once daily Mora-3 Fatty Acids (OMEGA-3 FISH OIL PO) Take [...] PO DAILY April 28, 2018 2:26pm [facility] atorvastatin 20 mg oral tablet (20 sources) [...] 25 mg castor oil 0.788 mg/mg / scottish balsam 0.087 mg/mg topical ointment (1 source) [...] TABS One tablet by mouth daily HYDROCHLOROTHIAZIDE [id number] Jeni Knox PA-C Insulin lispro (HUMALOG) injection (2 sources) Start: 04-20-2022 End: 04-27-2022 Insulin lispro (HUMALOG) injection Start: 03-30-2022 End: 04-05-2022 Insulin lispro (HUMALOG) inj ection 24 hr isosorbide mononitrate 60 mg extended release oral tablet (20 sources) Nitrate Vasodilator Start: 03-31-2022 End: 04-01-2022 isosorbide mononitrate (IMDUR) tablet XL 60 mg Start: 03-29-2022 End: 03-30-2022 30 mg, Oral, DAILY EVERY MOR FILBIERTO, First dose on 03/29/22 at 0900, Until [...] tablet by mouth twice daily METOPROLOL TARTRATE [id number] Jessica King RN Start: 07-18-2016 take 1 tablet by claudio th twice daily METOPROLOL TARTRATE 25 MG TABS One half tablet by mouth twice daily METOPROLOL TARTRATE [id number] Dontrell Dawson MD Start: 07-11-2016 End: 03-06-2017 [...] tablet by mouth at bedtime. ROSUVASTATIN CALCIUM [id number] Dontrell Dawson MD simvastatin 40 mg oral [...] disease (20 sources) Atherosclerotic heart disease of [place] coronary artery without angina pectoris; Translations: [Coronary [...] (7 sources) Long-term drug therapy; Translations: [Other senior care (current) drug therapy] Onset: 7 11-28-2016 Past [...] Synergy 07/10/16 Other aftercare (11 sources) Other oysterman (current) drug therapy; Translations: [Other oysterman (current) drug therapy] Onset: 08-13-2016 11-28-2016 Episodic [...] Facility Cardiology Visit Reporton Cardiology Visit Report [facility] [address] [place] [address] OFFICE VISIT Date of Service: 02/07/25 MR#: [id number] Acct: [id number] Name: FINESSE PRATHER Rep #: [id number] : 1935 Provider: YASH jacobson Age/Sex: 89/F Location: [facility] Status: Signed HPI HPI History of Present Illness Details: Finesse Prather is an 89 year-old white female with a history of CAD status post RCA PTCA/stent (2016), hyperlipidemia, hypertension, moderate to severe aortic valve stenosis, with a history of bilateral carotid artery endarterectomy-remote. She had a TIA in 11/2020. She was evaluated [facility] in February 2022 for shortness of breath. [...] 98 Intake Visit Reasons: 1 Y FU Telephone Clerk Telegraph Office Required: No Is patient in pain?: No Allergies rosuvastatin Adverse Reaction (Severe, Verified 02/07/25 09:45) Myalgias simvastatin Adverse Reaction (Severe, Verified 02/07/25 09:45) myalgias Medications ???Medication ???Instructions ???Recorded ???Confirmed ???Type nitroglycerin 0.4 mg sublingual 0.4 mg sublingual Q5M PRN Chest 02/07/25 Rx tablet Pain #20 tabs aspirin 81 mg tablet,delayed 81 mg PO DAILY [facility] 02/07/25 History release omega-3 250 nw-znl-utw-lutein 2.5 1 cap PO BID [facility] 01/28/21 02/07/25 History mg-zeaxanthin 0.5 mg capsule ([facility]) vitamin B complex 1 cap PO [...] Aortic valve disorders Atherosclerotic heart disease of [place] coronary artery without angina pectoris HLD (hyperlipidemia) Occlusion and stenosis of right carotid artery PAD (peripheral artery disease) Surgical History History of transcatheter aortic valve replacement (TAVR) ( 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 Normal [facility] Cardiology Visit Reporton Cardiology Visit Report [facility] [address] [place] [address] OFFICE VISIT Date of Service: 12/06/24 MR#: [id number] Acct: [id number] Name: FINESSE PRATHER Rep #: [id number] : 1935 Provider: ERASMO Negrete Age/Sex: 89/F Location: [facility] Status: Signed HPI HPI History of Present Illness Details: Finesse Prather is an 89 year-old white female with a history of CAD status post RCA PTCA/stent (2016), hyperlipidemia, hypertension, moderate to severe aortic valve stenosis, with a history of bilateral carotid artery endarterectomy-remote. She had a TIA in 11/2020. She was evaluated [facility] in February 2022 for shortness of breath. [...] cuff Intake Visit Reasons: 2 M FU Telephone Clerk Telegraph Office Required: No Accompanied by: Daughter Is patient [...] blood sugar 01/28/21 12/06/24 History omega-3 250 hr-nov-jvq-lutein 2.5 1 cap PO BID EYE HEALTH [...] Aortic valve disorders Atherosclerotic heart disease of [place] coronary artery without angina pectoris HLD (hyperlipidemia) Occlusion and stenosis of right carotid artery PAD (peripheral artery disease) Surgical History History of transc (more content not included)... Normal [facility] Cardiology Visit Reporton Cardiology Visit Report [facility] [place] [facility] [address] [place] [address] OFFICE VISIT Date of Service: 10/04/24 MR#: [id number] Acct: [id number] Name: FINESSE PRATHER Rep #: [id number] : 1935 Provider: ERASMO Negrete Age/Sex: 89/F Location: [facility] Status: Signed HPI HPI History of Present Illness Details: Finesse Prather is an 89 year-old white female with a history of CAD status post RCA PTCA/stent (2016), hyperlipidemia, hypertension, moderate to severe aortic valve stenosis, with a history of bilateral carotid artery endarterectomy-remote. She had a TIA in 11/2020. She was evaluated [facility] in February 2022 for shortness of breath. [...] Monitor Intake Visit Reasons: 3 M FU Telephone Clerk Telegraph Office Required: No Accompanied by: Daughter Allergies rosuvastatin [...] blood sugar 01/28/21 10/04/24 History omega-3 250 ok-bls-mhf-lutein 2.5 1 cap PO BID EYE HEALTH 01/28/21 10/04/24 History mg-zeaxanthin 0.5 mg capsule ([facility]) vitamin B complex 1 cap PO [...] Aortic valve disorders Atherosclerotic heart disease of [place] coronary artery without angina pectoris HLD (hyperlipidemia) [...] 66 Diab (more content not included)... Normal [facility] Cardiology Visit Reporton Cardiology Visit Report [facility] [address] [place] [address] OFFICE VISIT Date of Service: 04/22/24 MR#: [id number] Acct: [id number] Name: FINESSE PRATHER Rep #: [id number] : 1935 Provider: ERASMO Negrete Age/Sex: 89/F Location: [facility] Status: Signed HPI HPI History of Present Illness Details: Finesse Prather is an 89 year-old white female with a history of CAD status post RCA PTCA/stent (2016), hyperlipidemia, hypertension, moderate to severe aortic valve stenosis, with a history of bilateral carotid artery endarterectomy-remote. She had a TIA in 11/2020. She was evaluated [facility] in February 2022 for shortness of breath. [...] Source NIBP Intake Visit Reasons: 1 M Telephone Clerk Telegraph Office Required: No Accompanied by: Daughter Is patient [...] blood sugar 01/28/21 04/22/24 History omega-3 250 we-pko-ena-lutein 2.5 1 cap PO BID EYE HEALTH 01/28/21 04/22/24 History mg-zeaxanthin 0.5 mg capsule ([facility]) vitamin B complex 1 cap PO [...] symptoms. Needs refill on lasix [facility] Medical History Moderate to severe aortic stenosis Depression Diabetes Osteoporosis Non-smoker Coronary artery disease Hypertension TIA (transient ischemic attack) Nonrheumatic aortic (valve) stenosis Essential hypertension Presence of stent in coronary artery ( 04/04/22) Carotid stenosis, left Occlusion and stenosis of left carotid artery Nonrheumatic mitral (valve) insufficiency Aortic valve disorders Atherosclerotic heart disease of [place] coronary artery without angina pectoris HLD (hyperlipidemia) Occlusion and stenosis of right carotid artery PAD (peripheral artery disease) Surgical History Hist (more content not included)... Normal [facility] Basic Metabolic Profile (BMP )on 03-23-2024 BUN/CRE 26.4 RATIO High 01-16 [facility] Comment on above: Order Comment: 'TROP ' Serial specimen #1, #2 or #3: 1 Performed By: #### L 503.4820, L501.4020, L500.2500, L100.0100 #### [facility] [address] [place], [address] CA,Total 8.8 mg/dL Normal 8.5-10.1 [facility] Comment on above: Order Comment: 'TROP ' Serial specimen #1, #2 or #3: 1 Performed By: #### L 503.6620, L501.4020, L500.2500, L100.0100 #### [facility] [address] [place], [address] Chloride [Moles/Vol] 105 mmol/L Normal 98-107 [facility] Comment on above: Order Comment: 'TROP ' Serial specimen #1, #2 or #3: 1 Performed By: #### L 503.6620, L501.4020, L500.2500, L100.0100 #### [facility] [address] [place], [address] CO2 [Moles/Vol] 29.0 mmol/L Normal 21.0-32.0 [facility] Comment on above: Order Comment: 'TROP ' Serial specimen #1, #2 or #3: 1 Performed By: #### L 503.6620, L501.4020, L500.2500, L100.0100 #### [facility] [address] [place], [address] Creatinine [Mass/Vol] 0.68 mg/dL Normal 0.55-1.02 [facility] Comment on above: Order Comment: 'TROP ' Serial specimen #1, #2 or #3: 1 Result Comment: The validity of the calculated GFR GFRAA in patients over 70 years has not been determined. Clinical correlation is essential. Performed By: #### L 503.6620, L501.4020, L500.2500, L100.0100 #### [facility] [address] [place], [address] ECRCL 39.87 ml/min Normal [facility] Comment on above: Order Comment: 'TROP ' Serial specimen #1, #2 or #3: 1 Performed By: #### L 503.6620, L501.4020, L500.2500, L100.0100 #### [facility] [address] [place], [address] EST GFR - AA 105 mL/min Normal >60 [facility] Comment on above: Order Comment: 'TROP ' Serial specimen #1, #2 or #3: 1 Result Comment: Afri can [place]uran GFR Calc Performed By: #### L 503.6620, L501.4020, L500.2500, L100.0100 #### [facility] [address] [place], [address] GAP 5 Normal 5-15 [facility] Comment on above: Order Comment: 'TROP ' Serial specimen #1, #2 or #3: 1 Performed By: #### L 503.6620, L501.4020, L500.2500, L100.0100 #### [facility] [address] [place], [address] GFR/1.73 sq M.predicted among non-blacks MDRD (S/P/Bld) [Vol rate/Area] 86 mL/min/{1.73_m2} Normal >60 [facility] Comment on above: Order Comment: 'TROP ' Serial specimen #1, #2 or #3: 1 Result Comment: Non- GFR Calc Performed By: #### L 503.6620, L501.4020, L500.2500, L100.0100 #### [facility] [address] [place], [address] Glucose [Mass/Vol] 150 mg/dL High 74-106 [facility] Comment on above: Order Comment: 'TROP ' Serial specimen #1, #2 or #3: 1 Result Comment: Fast ing Glucose result greater than or equal to 126 mg/dL suggests DIABETES MELLITUS per A.D.A. criteria. Performed By: #### L 503.6620, L501.4020, L500.2500, L100.0100 #### [facility] [address] [place], [address] Potassium [Moles/Vol] 3.8 mmol/L Normal 3.5-5.1 [facility] Comment on above: Order Comment: 'TROP ' Serial specimen #1, #2 or #3: 1 Performed By: #### L 503.6620, L501.4020, L500.2500, L100.0100 #### [facility] [address] [place], [address] Sodium [Moles/Vol] 139 mmol/L Normal 136-145 [facility] Comment on above: Order Comment: 'TROP ' Serial specimen #1, #2 or #3: 1 Performed By: #### L 503.6620, L501.4020, L500.2500, L100.0100 #### [facility] [address] [place], [address] Urea nitrogen [Mass/Vol] 18 mg/dL Normal 7-18 [facility] Comment on above: Order Comment: 'TROP ' Serial specimen #1, #2 or #3: 1 Performed By: #### L 503.6620, L501.4020, L500.2500, L100.0100 #### [facility] [address] [place], [address] Bedside Glucoseon 03-23-2024 FINGERSTICK GLU 170 mg/dL High 74-106 [facility] Comment on above: Result Comment: NANNETTE GEMENT OF PATIENT CARE PER NURSING PROTOCOL Performed By: #### L 503.6620, L501.4020, L500.2500, L100.0100 #### [facility] [address] [place], [address] FINGERSTICK GLU 140 mg/dL High 74-106 [facility] Comment on above: Result Comment: NANNETTE GEMENT OF PATIENT CARE PER NURSING PROTOCOL Performed By: #### L 501.080 #### [facility] [address] [place], [address] FINGERSTICK GLU 192 mg/dL High 74-106 [facility] Comment on above: Result Comment: NANNETTE ARAGON OF PATIENT CARE PER NURSING PROTOCOL Performed By: #### L 501.080 #### [facility] [address] [place], [address] Discharge Instructionon 02-28 Discharge Instruction [facility] Medical Records Department [address] [place] [address] Instructions for Home/Discharge Instructions 03/23/24 1028 MR#: [id number] Acct: [id number] Name: FINESSE PRATHER Rep #: [id number] : 1935 89 From: Papi Ruiz MD [...] MD; Dr. Antwon Vidal DO Signed Normal [facility] Magnesiumon 03-23-2024 Magnesium [Mass/Vol] 2.1 mg/dL Normal 1.6-2.6 [facility] Comment on above: Performed By: #### L 503.6620, L501.4020, L500.2500, L100.0100 #### [facility] [address] [place], [address] Phosphoruson 03-23-2024 Phosphate [Mass/Vol] 3.6 mg/dL Normal 2.5-4.9 [facility] Comment on above: Performed By: #### L 503.6620, L501.4020, L500.2500, L100.0100 #### [facility] [address] [place], [address] BNP,B-Type NATRIURETIC PEPTI Svetlana 03-22-2024 Natriuretic peptide B (Bld) [Mass/Vol] 638.5 pg/mL High 0-100 [facility] Comment on above: Performed By: #### L 503.6620, L501.4020, L500.2500, L100.0100 #### [facility] [address] [place], [address] Bedside Glucoseon 03-22-2024 FINGERSTICK GLU 178 mg/dL High 74-106 [facility] Comment on above: Result Comment: NANNETTE GEMENT OF PATIENT CARE PER NURSING PROTOCOL Performed By: #### L 501.080 #### [facility] [address] [place], [address] FINGERSTICK GLU 269 mg/dL High -106 [facility] Comment on above: Result Comment: NANNETTE GEMENT OF PATIENT CARE PER NURSING PROTOCOL Performed By: #### L 501.080 #### [facility] [address] [place], [address] FINGERSTICK GLU 145 mg/dL High -106 [facility] Comment on above: Result Comment: NANNETTE GEMENT OF PATIENT CARE PER NURSING PROTOCOL Performed By: #### L 501.080 #### [facility] [address] [place], [address] CBC W/Diff, Automatedon 12- Absolute Lymph 2.19 X10 3/uL Normal 0.83-4.51 [facility] Comment on above: Performed By: #### L 501.5200, L100.0100, L500.4050, L501.2300 #### [facility] [address] [place], [address] Absolute Neut 7.6 X10 3/uL Normal 2.0-7.7 [facility] Comment on above: Performed By: #### L 501.5200, L100.0100, L500.4050, L501.2300 #### [facility] [address] [place], [address] Basophils/100 WBC (Bld) 0.4 % Normal 0-1 [facility] Comment on above: Performed By: #### L 501.5200, L100.0100, L500.4050, L501.2300 #### [facility] [address] [place], [address] Eosinophils/100 WBC (Bld) 1.9 % Normal 0-5 [facility] Comment on above: Performed By: #### L 501.5200, L100.0100, L500.4050, L501.2300 #### [facility] [address] [place], [address] Erythrocyte distribution width (RBC) [Ratio] 12.6 % Normal 11.6-14.6 [facility] Comment on above: Performed By: #### L 501.5200, L100.0100, L500.4050, L501.2300 #### [facility] [address] [place], [address] Hematocrit (Bld) [Volume fraction] 41.0 % Normal 37-47 [facility] Comment on above: Performed By: #### L 501.5200, L100.0100, L500.4050, L501.2300 #### [facility] [address] [place], [address] Hemoglobin (Bld) [Mass/Vol] 13.9 g/dL Normal 12.0-15.0 [facility] Comment on above: Performed By: #### L 501.5200, L100.0100, L500.4050, L501.2300 #### [facility] [address] [place], [address] IG% 0.400 Normal 0.0-0.9 [facility] Comment on above: Result Comment: IG% - Immature Granulocytes (promyelocytes, myelocytes and metamyelocytes) > 1% indicates that a LEFT SHIFT is Present. Performed By: #### L 501.5200, L100.0100, L500.4050, L501.2300 #### [facility] [address] [place], [address] Lymphocytes/100 WBC (Bld) 19.2 % Normal 19-41 [facility] Comment on above: Performed By: #### L 501.5200, L100.0100, L500.4050, L501.2300 #### [facility] [address] [place], [address] MCH (RBC) [Entitic mass] 29.0 pg Normal 27.0-32.0 [facility] Comment on above: Performed By: #### L 501.5200, L100.0100, L500.4050, L501.2300 #### [facility] [address] [place], [address] MCHC (RBC) [Mass/Vol] 33.9 g/dL Normal 32-36 [facility] Comment on above: Performed By: #### L 501.5200, L100.0100, L500.4050, L501.2300 #### [facility] [address] [place], [address] MCV (RBC) [Entitic vol] 85.4 fL Normal 81-99 [facility] Comment on above: Performed By: #### L 501.5200, L100.0100, L500.4050, L501.2300 #### [facility] [address] [place], [address] Monocytes/100 WBC (Bld) 11.2 % High 0-10 [facility] Comment on above: Performed By: #### L 501.5200, L100.0100, L500.4050, L501.2300 #### [facility] [address] [place], [address] Neutrophils/100 WBC (Bld) 66.9 % Normal 47-70 [facility] Comment on above: Performed By: #### L 501.5200, L100.0100, L500.4050, L501.2300 #### [facility] [address] [place], [address] Nucleated RBC (Bld) [#/Vol] 0 10*3/uL Normal 0-5 [facility] Comment on above: Performed By: #### L 501.5200, L100.0100, L500.4050, L501.2300 #### [facility] [address] [place], [address] Platelet mean volume (Bld) [Entitic vol] 9.7 fL Normal 6.2-12.0 [facility] Comment on above: Performed By: #### L 501.5200, L100.0100, L500.4050, L501.2300 #### [facility] [address] [place], [address] Platelets (Bld) [#/Vol] 216 10*3/uL Normal 150-450 [facility] Comment on above: Performed By: #### L 501.5200, L100.0100, L500.4050, L501.2300 #### [facility] [address] [place], [address] RBC (Bld) [#/Vol] 4.80 10*6/uL Normal 4.2-5.4 [facility] Comment on above: Performed By: #### L 501.5200, L100.0100, L500.4050, L501.2300 #### [facility] [address] [place], [address] RDW SD 38.7 fl Normal 35.1-43.9 [facility] Comment on above: Performed By: #### L 501.5200, L100.0100, L500.4050, L501.2300 #### [facility] [address] [place], [address] WBC (Bld) [#/Vol] 11.4 10*3/uL High 4.4-11.0 [facility] Comment on above: Performed By: #### L 501.5200, L100.0100, L500.4050, L501.2300 #### [facility] [address] [place], [address] Chest 1 View (Portable)on Chest 1 View (Portable) [facility] [address] [place] [address] Chest 1 View (Portable) MR#: [id number] Acct: [id number] Name: FINESSE PRATHER Rep #: [id number] : 1935 F 89 From: Lb Jacobsen MD PCP: Dr. Murphy Burton MD Status: ADM IN Study: Chest 1 View (Portable) Date of Exam: 03/22/24 Exam# [id number] Ordering Dr: Antwon Vidal DO [id number] EXAM: XR CHEST, 1 VIEW CLINICAL INDICATION: [...] Burton MD; Dr. Antwon de Anmol, DO Fish Net Stringer: Signed Normal [facility] Comprehensive Metabolic Prof chuy 03-22-2024 Albumin [Mass/Vol] 3.3 g/dL Normal 3.2-5.0 [facility] Comment on above: Performed By: #### L 503.6620, L501.4020, L500.2500, L100.0100 #### [facility] [address] [place], [address] Albumin/Globulin [Mass ratio] 1.0 {ratio} Normal 0.9-2.4 [facility] Comment on above: Performed By: #### L 503.6620, L501.4020, L500.2500, L100.0100 #### [facility] [address] [place], [address] ALK P 79 U/L Normal 45-117 [facility] Comment on above: Performed By: #### L 503.6620, L501.4020, L500.2500, L100.0100 #### [facility] [address] [place], [address] ALT [Catalytic activity/Vol] 44 U/L Normal 13-56 [facility] Comment on above: Performed By: #### L 503.6620, L501.4020, L500.2500, L100.0100 #### [facility] [address] [place], [address] AST [Catalytic activity/Vol] 48 U/L High 15-37 [facility] Comment on above: Performed By: #### L 503.6620, L501.4020, L500.2500, L100.0100 #### [facility] [address] [place], [address] Bilirubin [Mass/Vol] 0.50 mg/dL Normal 0.20-1.00 [facility] Comment on above: Result Comment: For patients on eltrombopag therapy, use of Dimension Carriere TBIL is not recommended. Performed By: #### L 503.6620, L501.4020, L500.2500, L100.0100 #### [facility] [address] [place], [address] BUN/CRE 20.8 RATIO High 10-20 [facility] Comment on above: Performed By: #### L 503.6620, L501.4020, L500.2500, L100.0100 #### [facility] [address] [place], [address] CA,Total 8.7 mg/dL Normal 8.5-10.1 [facility] Comment on above: Performed By: #### L 503.6620, L501.4020, L500.2500, L100.0100 #### [facility] [address] [place], [address] Chloride [Moles/Vol] 104 mmol/L Normal 98-107 [facility] Comment on above: Performed By: #### L 503.6620, L501.4020, L500.2500, L100.0100 #### [facility] [address] [place], [address] CO2 [Moles/Vol] 31.0 mmol/L Normal 21.0-32.0 [facility] Comment on above: Performed By: #### L 503.6620, L501.4020, L500.2500, L100.0100 #### [facility] [address] [place], [address] Creatinine [Mass/Vol] 0.58 mg/dL Normal 0.55-1.02 [facility] Comment on above: Result Comment: The validity of the calculated GFR GFRAA in patients over 70 years has not been determined. Clinical correlation is essential. Performed By: #### L 503.6620, L501.4020, L500.2500, L100.0100 #### [facility] [address] [place], [address] ECRCL 39.81 ml/min Normal [facility] Comment on above: Performed By: #### L 503.6620, L501.4020, L500.2500, L100.0100 #### [facility] [address] [place], [address] EST GFR - AA 127 mL/min Normal >60 [facility] Comment on above: Result Comment: Afri can Honduran GFR Calc Performed By: #### L 503.6620, L501.4020, L500.2500, L100.0100 #### [facility] [address] [place], [address] GAP 4 Low 5-15 [facility] Comment on above: Performed By: #### L 503.6620, L501.4020, L500.2500, L100.0100 #### [facility] [address] [place], [address] GFR/1.73 sq M.predicted among non-blacks MDRD (S/P/Bld) [Vol rate/Area] 105 mL/min/{1.73_m2} Normal >60 [facility] Comment on above: Result Comment: Non- GFR Calc Performed By: #### L 503.6620, L501.4020, L500.2500, L100.0100 #### [facility] [address] [place], [address] Globulin (S) [Mass/Vol] 3.4 g/dL Normal 2.2-4.2 [facility] Comment on above: Performed By: #### L 503.6620, L501.4020, L500.2500, L100.0100 #### [facility] [address] [place], [address] Glucose [Mass/Vol] 151 mg/dL High 74-106 [facility] Comment on above: Result Comment: Fast ing Glucose result greater than or equal to 126 mg/dL suggests DIABETES MELLITUS per A.D.A. criteria. Performed By: #### L 503.6620, L501.4020, L500.2500, L100.0100 #### [facility] [address] [place], [address] Potassium [Moles/Vol] 3.2 mmol/L Low 3.5-5.1 [facility] Comment on above: Performed By: #### L 503.6620, L501.4020, L500.2500, L100.0100 #### [facility] [address] [place], [address] Sodium [Moles/Vol] 139 mmol/L Normal 136-145 [facility] Comment on above: Performed By: #### L 503.6620, L501.4020, L500.2500, L100.0100 #### [facility] [address] [place], [address] T PROT 6.7 g/dL Normal 6.4-8.2 [facility] Comment on above: Performed By: #### L 503.6620, L501.4020, L500.2500, L100.0100 #### [facility] [address] [place], [address] Urea nitrogen [Mass/Vol] 12 mg/dL Normal 7-18 [facility] Comment on above: Performed By: #### L 503.6620, L501.4020, L500.2500, L100.0100 #### [facility] [address] [place], [address] Consultation - Cardiologyon 03-22-2024 Consultation - Cardiology [facility] Medical Records Department [address] [place] [address] Consultation - Cardiology 03/22/24 0900 MR#: [id number] Acct: [id number] Name: FINESSE PRATHER Rep #: [id number] : 1935 89 From: Pillo Cordero MD PCP: Dr. Murphy Burton MD Status:ADM IN Location: [address] Assessment Plan Assessment/Plan (1) CHF exacerbation: [...] a TIA in 11/2020. She was evaluated [facility] in February 2022 for shortness of breath. [...] on 04/25/2022 with a 23 mm Lerner LOREELI S3 valve. Echocardiogram post TAVR showed ejection [...] rhythm with lateral ST depression. [facility] Medical History Moderate to severe aortic stenosis Depression Diabetes Osteoporosis Non-smoker Coronary artery disease Hypertension TIA (transient ischemic attack) Nonrheumatic aortic (valve) stenosis Essential hypertension Presence of stent in coronary artery ( 04/04/22) Carotid stenosis, left Occlusion and stenosis of left carotid artery Nonrheumatic mitral (valve) insufficiency Aortic valve disorders Atherosclerotic heart disease of [place] coronary artery without angina pectoris HLD (hyperlipidemia) [...] blood sugar 01/28/21 03/20/22 History omega-3 250 se-qmc-xsb-lutein 2.5 1 cap PO BID [facility] 01/28/21 03/20/22 History mg-zeaxanthin 0.5 mg capsule ([facility]) vitamin B complex 1 cap PO [...] 10 mg (more content not included)... Normal [facility] Hemoglobin A1con 03-22-2024 HbA1c (Bld) [Mass fraction] 6.6 % High 3.8-5.6 [facility] Comment on above: Result Comment: Norm al < 5.7 % Prediabetic 5.7 - 6.4 % Diabetic >or= 6.5 % Please note range changes. Performed By: #### L 503.6620, L501.4020, L500.2500, L100.0100 #### [facility] [address] [place], [address] Legionella Antigen Urineon 1 05-23-2023 LEGU URINE, CLEAN CATCH Legionella Antigen result interpretation: L pneumo Ag Ur Ql Negative Presumptive negative for Legionella pneumophila serogroup 1 antigen in urine, suggesting no recent or current infection. Legionella Ag, Urine Negative (See interpretation below) Normal [facility] Comment on above: Performed By: #### L 503.6620, L501.4020, L500.2500, L100.0100 #### [facility] [address] [place], [address] Lipid Profileon 03-22-2024 Cholesterol [Mass/Vol] 270 mg/dL High 200 [facility] Comment on above: Result Comment: <200 mg/dL Desirable 200-240 mg/dL Borderline >240 mg/dL High Risk Performed By: #### L 503.6620, L501.4020, L500.2500, L100.0100 #### [facility] [address] [place], [address] Cholesterol in HDL [Mass/Vol] 55 mg/dL Normal [facility] Comment on above: Result Comment: The drugs N-Acetylcysteine and Metamizole may falsely depress this assay. Reference Range HDL <40 mg/dL Low HDL Cholesterol HDL >or= 60 mg/dL High HDL Cholesterol Performed By: #### L 503.6620, L501.4020, L500.2500, L100.0100 #### [facility] [address] [place], [address] Cholesterol in LDL [Mass/Vol] 189 mg/dL High 0-130 [facility] Comment on above: Performed By: #### L 503.6620, L501.4020, L500.2500, L100.0100 #### [facility] [address] [place], [address] Cholesterol in VLDL [Mass/Vol] 26 mg/dL Normal 5-40 [facility] Comment on above: Performed By: #### L 503.6620, L501.4020, L500.2500, L100.0100 #### [facility] [address] [place], [address] Triglyceride [Mass/Vol] 129 mg/dL Normal [facility] Comment on above: Result Comment: The drugs N-Acetylcysteine and Metamizole may falsely depress this assay. Serum Triglycerides Reference Interval Normal <150 mg/dL Borderline high 150 - 199 mg/dL High 200 - 499 mg/dL Very High > or = 500 mg/dL Performed By: #### L 503.6620, L501.4020, L500.2500, L100.0100 #### [facility] [address] [place], [address] Magnesiumon 03-22-2024 Magnesium [Mass/Vol] 1.7 mg/dL Normal 1.6-2.6 [facility] Comment on above: Performed By: #### L 503.6620, L501.4020, L500.2500, L100.0100 #### [facility] [address] [place], [address] Phosphoruson 4 Phosphate [Mass/Vol] 3.2 mg/dL Normal 2.5-4.9 [facility] Comment on above: Performed By: #### L 503.6620, L501.4020, L500.2500, L100.0100 #### [facility] [address] [place], [address] Strep pneumoniae Antig(UR,CS F)on 03-22-2024 STPAG URINE INTERPRETATION Strep pneumoniae Antig(UR,CSF) Strep pneumoniae Antig(UR,CSF) Negative Urine Presumptive negative for pneumococcal pneumonia, suggesting no current or recent pneumococcal infection. Infection due to S pneumoniae cannot be ruled out since the antigen present in the sample may be below the detection limit of the test. Strep pneumo Test Negative URINE (See interpretation below) Normal [facility] Comment on above: Performed By: #### L 503.6620, L501.4020, L500.2500, L100.0100 #### [facility] [address] [facility] [place], [address] 12 Lead EKGon 03-21-2024 12 Lead EKG [facility] [address] [place] [address] 12 Lead EKG 03/21/24 2151 MR#: [id number] Acct: [id number] Name: FINESSE PRATHER Rep #: [id number] : 1935 89 From: Pillo Cordero MD Attending Dr: Dr. Papi Ruiz MD Status: DIS IN Ordering Dr: Matthew Enrique DO Date: 4 Location: [facility] Sex: F C Admitted: 03/21/24 Test [...] ECG Confirmed by PILLO CORDERO MD ([id number]), video news editor ERNESTINA GARCIA ([id number]) on 03/24/2024 2:24:01 PM Referred By: Confirmed By: PILLO CORDERO MD 03/24/24 1424 Date Pillo Cordero MD CC: Dr. Matthew Enrique DO; Dr. Murphy Burton MD; Dr. Papi Ruiz MD Signed Normal [facility] 12 Lead EKG [facility] [address] [place] [address] 12 Lead EKG 03/21/242058 MR#: [id number] Acct: [id number] Name: FINESSE PRATHER Rep #: [id number] : 1935 89 From: Pillo Cordero MD Attending Dr: Dr. Papi Ruiz MD Status: DIS IN Ordering Dr: Matthew Enrique DO Date: 4 Location: [facility] Sex: F C Admitted: 03/21/24 Test [...] ECG Confirmed by ABIMAEL MELENDEZ, PILLO ([id number]), video news editor ERNESTINA GARCIA ([id number]) on 03/24/2024 2:23:51 PM Referred By: Confirmed By: PILLO CORDERO MD 03/24/24 1423 Date Pillo Cordero MD CC: Dr. Matthew Enrique DO; Dr. Murphy Burton MD; Dr. Papi Ruiz MD Signed [facility] BNP,B-Type NATRIURETIC PEPTI Svetlana 03-21-2024 Natriuretic peptide B (Bld) [Mass/Vol] 253.0 pg/mL High 0-100 [facility] Comment on above: Performed By: #### L 503.6620, L501.4020, L500.2500, L100.0100 #### [facility] [address] [facility] [place], [address] Basic Metabolic Profile (BMP )on 03-21-2024 BUN/CRE 22.7 RATIO High 10-20 [facility] Comment on above: Order Comment: 'TROP ' Serial specimen #1, #2 or #3: 1 Performed By: #### L 503.6620, L501.4020, L500.2500, L100.0100 #### [facility] [address] [place], [address] CA,Total 9.4 mg/dL Normal 8.5-10.1 [facility] Comment on above: Order Comment: 'TROP ' Serial specimen #1, #2 or #3: 1 Performed By: #### L 503.6620, L501.4020, L500.2500, L100.0100 #### [facility] [address] [place], [address] Chloride [Moles/Vol] 103 mmol/L Normal 98-107 [facility] Comment on above: Order Comment: 'TROP ' Serial specimen #1, #2 or #3: 1 Performed By: #### L 503.6620, L501.4020, L500.2500, L100.0100 #### [facility] [address] [place], [address] CO2 [Moles/Vol] 28.0 mmol/L Normal 21.0-32.0 [facility] Comment on above: Order Comment: 'TROP ' Serial specimen #1, #2 or #3: 1 Performed By: #### L 503.6620, L501.4020, L500.2500, L100.0100 #### [facility] [address] [place], [address] Creatinine [Mass/Vol] 0.79 mg/dL Normal 0.55-1.02 [facility] Comment on above: Order Comment: 'TROP ' Serial specimen #1, #2 or #3: 1 Result Comment: The validity of the calculated GFR GFRAA in patients over 70 years has not been determined. Clinical correlation is essential. Performed By: #### L 503.6620, L501.4020, L500.2500, L100.0100 #### [facility] [address] [place], [address] ECRCL 40.89 ml/min Normal [facility] Comment on above: Order Comment: 'TROP ' Serial specimen #1, #2 or #3: 1 Performed By: #### L 503.6620, L501.4020, L500.2500, L100.0100 #### [facility] [address] [place], [address] EST GFR - AA 88 mL/min Normal >60 [facility] Comment on above: Order Comment: 'TROP ' Serial specimen #1, #2 or #3: 1 Result Comment: Afri can [place]uran GFR Calc Performed By: #### L 503.6620, L501.4020, L500.2500, L100.0100 #### [facility] [address] [place], [address] GAP 6 Normal 5-15 [facility] Comment on above: Order Comment: 'TROP ' Serial specimen #1, #2 or #3: 1 Performed By: #### L 503.6620, L501.4020, L500.2500, L100.0100 #### [facility] [address] [place], [address] GFR/1.73 sq M.predicted among non-blacks MDRD (S/P/Bld) [Vol rate/Area] 73 mL/min/{1.73_m2} Normal >60 [facility] Comment on above: Order Comment: 'TROP ' Serial specimen #1, #2 or #3: 1 Result Comment: Non- GFR Calc Performed By: #### L 503.6620, L501.4020, L500.2500, L100.0100 #### [facility] [address] [place], [address] Glucose [Mass/Vol] 302 mg/dL High 74-106 [facility] Comment on above: Order Comment: 'TROP ' Serial specimen #1, #2 or #3: 1 Result Comment: Gluc ose result greater than or equal to 200 mg/dL suggests DIABETES MELLITUS per A.D.A. criteria. Performed By: #### L 503.6620, L501.4020, L500.2500, L100.0100 #### [facility] [address] [place], [address] Potassium [Moles/Vol] 3.7 mmol/L Normal 3.5-5.1 [facility] Comment on above: Order Comment: 'TROP ' Serial specimen #1, #2 or #3: 1 Performed By: #### L 503.6620, L501.4020, L500.2500, L100.0100 #### [facility] [address] [place], [address] Sodium [Moles/Vol] 137 mmol/L Normal 136-145 [facility] Comment on above: Order Comment: 'TROP ' Serial specimen #1, #2 or #3: 1 Performed By: #### L 503.6620, L501.4020, L500.2500, L100.0100 #### [facility] [address] [place], [address] Urea nitrogen [Mass/Vol] 18 mg/dL Normal 7-18 [facility] Comment on above: Order Comment: 'TROP ' Serial specimen #1, #2 or #3: 1 Performed By: #### L 503.6620, L501.4020, L500.2500, L100.0100 #### [facility] [address] [place], [address] CBC W/Diff, Automatedon 12-2 Absolute Lymph 1.91 X10 3/uL Normal 0.83-4.51 [facility] Comment on above: Performed By: #### L 503.6620, L501.4020, L500.2500, L100.0100 #### [facility] [address] [place], [address] Absolute Neut 5.9 X10 3/uL Normal 2.0-7.7 [facility] Comment on above: Performed By: #### L 503.6620, L501.4020, L500.2500, L100.0100 #### [facility] [address] [place], [address] Basophils/100 WBC (Bld) 1.0 % Normal 0-1 [facility] Comment on above: Performed By: #### L 503.6620, L501.4020, L500.2500, L100.0100 #### [facility] [address] [place], [address] Eosinophils/100 WBC (Bld) 6.1 % High 0-5 [facility] Comment on above: Performed By: #### L 503.6620, L501.4020, L500.2500, L100.0100 #### [facility] [address] [place], [address] Erythrocyte distribution width (RBC) [Ratio] 12.6 % Normal 11.6-14.6 [facility] Comment on above: Performed By: #### L 503.6620, L501.4020, L500.2500, L100.0100 #### [facility] [address] [place], [address] Hematocrit (Bld) [Volume fraction] 42.1 % Normal 37-47 [facility] Comment on above: Performed By: #### L 503.6620, L501.4020, L500.2500, L100.0100 #### [facility] [address] [place], [address] Hemoglobin (Bld) [Mass/Vol] 13.9 g/dL Normal 12.0-15.0 [facility] Comment on above: Performed By: #### L 503.6620, L501.4020, L500.2500, L100.0100 #### [facility] [address] [place], [address] IG% 0.400 Normal 0.0-0.9 [facility] Comment on above: Result Comment: IG% - Immature Granulocytes (promyelocytes, myelocytes and metamyelocytes) > 1% indicates that a LEFT SHIFT is Present. Performed By: #### L 503.6620, L501.4020, L500.2500, L100.0100 #### [facility] [address] [place], [address] Lymphocytes/100 WBC (Bld) 20.4 % Normal 19-41 [facility] Comment on above: Performed By: #### L 503.6620, L501.4020, L500.2500, L100.0100 #### [facility] [address] [place], [address] MCH (RBC) [Entitic mass] 28.7 pg Normal 27.0-32.0 [facility] Comment on above: Performed By: #### L 503.6620, L501.4020, L500.2500, L100.0100 #### [facility] [address] [place], [address] MCHC (RBC) [Mass/Vol] 33.0 g/dL Normal 32-36 [facility] Comment on above: Performed By: #### L 503.6620, L501.4020, L500.2500, L100.0100 #### [facility] [address] [place], [address] MCV (RBC) [Entitic vol] 86.8 fL Normal 81-99 [facility] Comment on above: Performed By: #### L 503.6620, L501.4020, L500.2500, L100.0100 #### [facility] [address] [place], [address] Monocytes/100 WBC (Bld) 9.2 % Normal 0-10 [facility] Comment on above: Performed By: #### L 503.6620, L501.4020, L500.2500, L100.0100 #### [facility] [address] [place], [address] Neutrophils/100 WBC (Bld) 62.9 % Normal 47-70 [facility] Comment on above: Performed By: #### L 503.6620, L501.4020, L500.2500, L100.0100 #### [facility] [address] [place], [address] Nucleated RBC (Bld) [#/Vol] 0 10*3/uL Normal 0-5 [facility] Comment on above: Performed By: #### L 503.6620, L501.4020, L500.2500, L100.0100 #### [facility] [address] [place], [address] Platelet mean volume (Bld) [Entitic vol] 10.4 fL Normal 6.2-12.0 [facility] Comment on above: Performed By: #### L 503.6620, L501.4020, L500.2500, L100.0100 #### [facility] [address] [place], [address] Platelets (Bld) [#/Vol] 232 10*3/uL Normal 150-450 [facility] Comment on above: Performed By: #### L 503.6620, L501.4020, L500.2500, L100.0100 #### [facility] [address] [place], [address] RBC (Bld) [#/Vol] 4.85 10*6/uL Normal 4.2-5.4 [facility] Comment on above: Performed By: #### L 503.6620, L501.4020, L500.2500, L100.0100 #### [facility] [address] [place], [address] RDW SD 39.7 fl Normal 35.1-43.9 [facility] Comment on above: Performed By: #### L 503.6620, L501.4020, L500.2500, L100.0100 #### [facility] [address] [place], [address] WBC (Bld) [#/Vol] 9.3 10*3/uL Normal 4.4-11.0 [facility] Comment on above: Performed By: #### L 503.6620, L501.4020, L500.2500, L100.0100 #### [facility] [address] [place], [address] Chest PA and Lateralon 03-21 Chest PA and Lateral [facility] [address] [place] [address] Chest PA and Lateral MR#: [id number] Acct: [id number] Name: FINESSE PRATHER Rep #: [id number] : 1935 F 89 From: Eulogio mary MD PCP: Dr. Murphy Burton MD Status: [facility] ER Study: Chest PA and Lateral Date of Exam: 03/21/24 Exam# [id number] Ordering Dr: Matthew Enrique DO [id number] INDICATION: Shortness of breath EXAMINATION/TECHNIQUE: X-RAY - [...] Matthew Enrique DO; Dr. Murphy Burton MD Fish Net Stringer: Signed Normal [facility] Echo Completeon 03-21-2024 Echo Complete [facility] [address] [place] [address] Echo Complete 03/22/24 1008 MR#: [id number] Acct: [id number] Name: FINESSE PRATHER Rep #: [id number] : 1935 89 From: Pillo Cordero MD [...] Dictated: 03/22/24 1008 Date Transcribed: 03/22/24 1335 Fish Net Stringer: Signed Normal [facility] Emergency Department Summary on 03-21-2024 Emergency Department Summary [facility] Medical Records Department [address] [place] [address] Emergency Department Summary 03/21/24 MR#: [id number] Acct: [id number] Name: FINESSE PRATEHR Rep #: [id number] : 1935 89 From: Matthew Enrique DO PCP: Dr. Murphy Burton MD Status:ADM IN Location: [place] [address] HPI History of Present Illness Chief Complaint: [...] intact Psych: Cooperative, appropriate mood and affect [facility] Medical History Moderate to severe aortic stenosis Depression Diabetes Osteoporosis Non-smoker Coronary artery disease Hypertension TIA (transient ischemic attack) Nonrheumatic aortic (valve) stenosis Essential hypertension Presence of stent in coronary artery ( 04/04/22) Carotid stenosis, left Occlusion and stenosis of left carotid artery Nonrheumatic mitral (valve) insufficiency Aortic valve disorders Atherosclerotic heart disease of [place] coronary artery without angina pectoris HLD (hyperlipidemia) [...] blood sugar 01/28/21 03/20/22 History omega-3 250 vq-ekh-xmz-lutein 2.5 1 cap PO BID [facility] 01/28/21 03/20/22 History mg-zeaxanthin 0.5 mg capsule ([facility]) vitamin B complex 1 cap PO [...] Oral Oral (more content not included)... Normal [facility] H AND P Exam - Hospitaliston 03-21-2024 H&P Exam - Hospitalist [facility] Medical Records Department [address] [place] [address] H P Exam - Hospitalist 03/21/242235 MR#: [id number] Acct: [id number] Name: FINESSE PRATHER Rep #: [id number] : 1935 89 From: Antwon Vidal DO PCP: Dr. Murphy Burton MD Status:ADM IN Location: [place] [id number] HPI - General General Date of Admission: [...] and prn SL NTG, history of nonrheumatic mrtvvvba-eq-cktahx stenosis of aortic valve; s/p TAVR (2022), history of bilateral carotid stenosis; s/p Right CEA ( 2010) and Left CEA (2017), history of TIA, history of PAD, history of depression; on sertraline, osteoporosis and OA who presents to [facility] ER complaining of SOB and cough. Ms. [...] to extend beyond 2 midnights. [facility] Medical History Moderate to severe aortic stenosis Depression Diabetes Osteoporosis Non-smoker Coronary artery disease Hypertension TIA (transient ischemic attack) Nonrheumatic aortic (valve) stenosis Essential hypertension Presence of stent in coronary artery ( 04/04/22) Carotid stenosis, left Occlusion and stenosis of left carotid artery Nonrheumatic mitral (valve) insufficiency Aortic valve disorders Atherosclerotic heart disease of [place] coronary artery without angina pectoris HLD (hyperlipidemia) [...] blood sugar 01/28/21 03/20/22 History omega-3 250 ln-yad-vmg-lutein 2.5 1 cap PO BID [facility] 01/28/21 03/20/22 History mg-zeaxanthin 0.5 mg capsule ([facility]) vitamin B complex 1 cap PO [...] 07/10/16) History (more content not included)... Normal [facility] L501.4020on 03-21-2024 TROPONIN-I HS 50 pg/mL Normal 3.0-54.0 [facility] Comment on above: Order Comment: 'TROP ' Serial specimen #1, #2 or #3: 1 Result Comment: Lexis ponce Note: New Test Units and Gender Specific Reference Ranges. For more information see Policy Stat Procedure Carriere High Sensitivity Troponin (TNIH) and attachments. Performed By: #### L 503.6620, L501.4020, L500.2500, L100.0100 #### [facility] [address] [place], [address] Lactic Acidon 03-21-2024 Lactate [Moles/Vol] 1.7 mmol/L Normal 0.4-1.9 [facility] Comment on above: Order Comment: Y Performed By: #### L 501.080 #### [facility] [address] [facility], [address] M100.678on 03-21-2024 M100.678 Pending SARS-CoV-2 (COVID 19) Negative INFLUENZA A Negative INFLUENZA B Negative RSV PCR Negative Normal [facility] Comment on above: Performed By: #### L 503.6620, L501.4020, L500.2500, L100.0100 #### [facility] [address] [place], [address] Thyroid Stim Hormone (TSH)on 03-21-2024 TSH 4.100 uIU/mL High 0.358-3.740 [facility] Comment on above: Performed By: #### L 503.6620, L501.4020, L500.2500, L100.0100 #### [facility] [address] [place], [address] Venous Blood Gason 4 Blood Gas Type RUPERT [facility] Comment on above: Performed By: #### L 503.6620, L501.4020, L500.2500, L100.0100 #### [facility] [address] [place], [address] CO2 [Moles/Vol] 28 mmol/L Normal 23-33 [facility] Comment on above: Performed By: #### L 503.6620, L501.4020, L500.2500, L100.0100 #### [facility] [address] [place], [address] FI02 5.0 [facility] Comment on above: Performed By: #### L 503.6620, L501.4020, L500.2500, L100.0100 #### [facility] [address] [place], [address] HCO3 (Bld) [Moles/Vol] 27 mmol/L High 22-26 [facility] Comment on above: Performed By: #### L 503.6620, L501.4020, L500.2500, L100.0100 #### [facility] [address] [place], [address] O2 Delivery Dev Not entered [facility] Comment on above: Performed By: #### L 503.6620, [id number], L500.2500, L100.0100 #### [facility] [address] [place], [address] SITE Not entered [facility] Comment on above: Performed By: #### L 503.6620, L501.4020, L500.2500, L100.0100 #### [facility] [address] [place], [address] VBG BE 2 mmol/L Normal -1.0-3.5 [facility] Comment on above: Performed By: #### L 503.6620, L501.4020, L500.2500, L100.0100 #### [facility] [address] [place], [address] VBG pCO2 45.3 mmHg Normal 41-51 [facility] Comment on above: Performed By: #### L 503.6620, L501.4020, L500.2500, L100.0100 #### [facility] [address] [place], [address] VBG pH 7.38 Normal 7.32-7.42 [facility] Comment on above: Performed By: #### L 503.6620, L501.4020, L500.2500, L100.0100 #### [facility] [address] [place], [address] VBG PO2 36 mmHg Normal 25-40 [facility] Comment on above: Performed By: #### L 503.6620, [id number], L500.2500, L100.0100 #### [facility] [address] [place], [address] VBG SO2 68 Normal 50-70 [facility] Comment on above: Performed By: #### L 503.6620, L501.4020, L500.2500, L100.0100 #### [facility] [address] [place], [address] Cardiology Visit Reporton Cardiology Visit Report [facility] [address] [place] [address] OFFICE VISIT Date of Service: 02/16/24 MR#: [id number] Acct: [id number] Name: FINESSE PRATHER Rep #: [id number] : 1935 Provider: Dr. Pillo Cordero MD Age/Sex: 88/F Location: [facility] Status: Signed HPI HPI History of Present Illness Details: Finesse Prather is an 88 year-old white female with a history of CAD status post RCA PTCA/stent (2016), hyperlipidemia, hypertension, moderate to severe aortic valve stenosis, with a history of bilateral carotid artery endarterectomy-remote. She had a TIA in 11/2020. She was evaluated [facility] in February 2022 for shortness of breath. 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: No Is patient in pain?: No [...] blood sugar 01/28/21 02/16/24 History omega-3 250 ra-est-utq-lutein 2.5 1 cap PO BID [facility] 01/28/21 02/16/24 History mg-zeaxanthin 0.5 mg capsule ([facility]) vitamin B complex 1 cap PO [...] in the past year?: No [facility] Medical History Moderate to severe aortic stenosis Depression Diabetes Osteoporosis Non-smoker Coronary artery disease Hypertension TIA (transient ischemic attack) Nonrheumatic aortic (valve) stenosis Essential hypertension Presence of stent in coronary artery ( 04/04/22) Carotid stenosis, left Occlusion and stenosis of left carotid artery Nonrheumatic mitral (valve) insufficiency Aortic valve disorders Atherosclerotic heart disease of [place] coronary artery without angina pectoris HLD (hyperlipidemia) Occlusion and stenosis of right carotid artery PAD (peripheral artery disease) Surgical History History of transcatheter aortic valve replacement (TAVR) ( 04/25/22) History of right and left heart catheterization (LHC) ( 03/21/22) Presence of coronary angioplasty implant and graft ( 07/10/16) History of left-sided carotid endarterectomy (05/05/17) History of hy (more content not included)... Normal [facility] B-TYPE NATRIURETIC PEPTIDE ( BRAIN)on 05-29-2022 Natriuretic peptide B (Bld) [Mass/Vol] 347 pg/mL High 0-100 [facility] Comment on above: Performed By: #### C HM6 #### [facility] (DEFAULT) [address] [address] CBC,PLATELETSon 05-29-2022 Hematocrit (Bld) [Volume fraction] 37.7 % Normal 34.9-44.3 [facility] Comment on above: Performed By: #### Y METN #### [facility] (DEFAULT) [address] [address] Hemoglobin (Bld) [Mass/Vol] 12.2 g/dL Normal 11.4-15.2 [facility] Comment on above: Performed By: #### Y METN #### [facility] (DEFAULT) [address] [place] [address] MCV (RBC) [Entitic vol] 85.9 fL Normal 79.6-97.7 [facility] Comment on above: Performed By: #### Y METN #### [facility] (DEFAULT) [address] [address] Mean Cell Hgb 27.8 pg Normal 25.9-33.9 [facility] Comment on above: Performed By: #### Y METN #### [facility] (DEFAULT) [address] [address] Mean Cell Hgb Conc 32.4 g/dL Normal 31.4-35.9 [facility] Comment on above: Performed By: #### Y METN #### [facility] (DEFAULT) [address] [address] Platelet mean volume (Bld) [Entitic vol] 10.4 fL Normal 8.5-12.2 [facility] Comment on above: Performed By: #### Y METN #### [facility] (DEFAULT) [address] [address] Platelets (Bld) [#/Vol] 198 10*3/uL Normal 150-393 [facility] Comment on above: Performed By: #### Y METN #### [facility] (DEFAULT) [address] [address] RBC (Bld) [#/Vol] 4.39 10*6/uL Normal 3.91-5.04 [facility] Comment on above: Performed By: #### Y METN #### [facility] (DEFAULT) [address] [address] RBC Distribution 13.0 % Normal 10.8-14.9 [facility] Comment on above: Performed By: #### Y METN #### [facility] (DEFAULT) [address] [address] WBC (Bld) [#/Vol] 7.18 10*3/uL Normal 3.99-11.19 [facility] Comment on above: Performed By: #### Y METN #### [facility] (DEFAULT) [address] [place] [address] CHEM 6 (LYTES, BUN CREA)on 0 05-29-2022 Anion gap [Moles/Vol] 14 mmol/L Normal 7-17 [facility] Comment on above: Performed By: #### C HM6 #### [facility] (DEFAULT) [address] [place] [address] Chloride [Moles/Vol] 101 mmol/L Normal 98-108 [facility] Comment on above: Performed By: #### C HM6 #### [facility] (DEFAULT) [address] [place] [address] CO2 [Moles/Vol] 29 mmol/L Normal 21-31 [facility] Comment on above: Performed By: #### C HM6 #### [facility] (DEFAULT) [address] [place] [address] Creatinine [Mass/Vol] 0.62 mg/dL Normal 0.50-1.20 [facility] Comment on above: Performed By: #### C HM6 #### [facility] (DEFAULT) [address] [place] [address] GFR/1.73 sq M.predicted among non-blacks MDRD (S/P/Bld) [Vol rate/Area] 86 mL/min/{1.73_m2} Normal >=60 [facility] Comment on above: Result Comment: Repo rted eGFR is based on the CKD-EPI 2020 equation using creatinine, age, and sex. Performed By: #### C HM6 #### [facility] (DEFAULT) [address] [place] [address] Potassium [Moles/Vol] 3.7 mmol/L Normal 3.5-5.0 [facility] Comment on above: Performed By: #### C HM6 #### [facility] (DEFAULT) [address] [place] [address] Sodium [Moles/Vol] 140 mmol/L Normal 135-145 [facility] Comment on above: Performed By: #### C HM6 #### [facility] (DEFAULT) [address] [place] [address] Urea nitrogen [Mass/Vol] 21 mg/dL Normal 7-25 [facility] Comment on above: Performed By: #### C HM6 #### [facility] (DEFAULT) [address] [place] [address] Urea nitrogen/Creatinine [Mass ratio] 34 mg/mg Normal [facility] Comment on above: Performed By: #### C HM6 #### [facility] (DEFAULT) [address] [place] [address] Cardiac echo study Procedure Ordered By: Allen Tay on 05-29-2022 Ao peak jay 2.29 m/s [facility] Work Phone: Ao VTI 59.50 cm [facility] Work Phone: Aortic arch 2.66 cm [facility] Work Phone: Ascending aorta 3.40 cm [facility] Work Phone: AV LVOT peak gradient 4 mmHg [facility] Work Phone: AV mean gradient 12 mmHg [facility] Work Phone: AV peak gradient 21 mmHG [facility] Work Phone: AV valve area 0.88 cm2 [facility] Work Phone: AV Velocity Ratio 0.41 [facility] Work Phone: LIDIA (continuity Vmax) 0.93 cm2 [facility] Work Phone: LIDIA (continuity VTI) 0.88 cm2 [facility] Work Phone: LIDIA index (continuity Vmax) 0.59 m/s [facility] Work Phone: LIDIA index (continuity VTI) 0.56 [facility] Work Phone: Avg e' pk jay 0.06 m/s [facility] Work Phone: Avg E/e' ratio 27.22 [facility] Work Phone: Body surface area Derived from formula 1.57 m2 [facility] Work Phone: BP EF 55 % [facility] Work Phone: DI (Vmax) 0.41 [facility] Work Phone: DI (VTI) 0.39 m/2 [facility] Work Phone: E wave decelartion time 339.00 msec [facility] Work Phone: e' lateral pk jay 0.0760 m/s [facility] Work Phone: e' lateral pk jay 0.08 m/s [facility] Work Phone: e' septal pk jay 0.0360 m/s [facility] Work Phone: e' septal pk jay 0.04 m/s [facility] Work Phone: E/A ratio 1.10 [facility] Work Phone: E/e' lateral ratio 17.50 [facility]: [facility]al [facility]: EF SP 2CH 55 [facility] Work Phone: EF SP 4CH 55 [facility] Work Phone: EST RAP 8.00 mmHg [facility] Work Phone: FS 20 % 28 - 44 % [facility] Work Phone: IVC ostium 1.30 cm [facility] Work Phone: IVS 1.20 cm [facility] Work Phone: LA AREA 2CH 24.40 cm2 [facility] Work Phone: LA area 4CH 21.60 cm2 [facility] Work Phone: LA ESV BP (MOD) 76 mL [facility] Work Phone: LA ESV BP (MOD) index 48 mL/m2 [facility] Work Phone: LA ESV SP 2CH (MOD) 78 mL [facility] Work Phone: LA ESV SP 4CH (MOD) 67 mL [facility] Work Phone: LV EDV BP 71 mL [facility] Work Phone: LV EDV SP 2CH 73 mL [facility] Work Phone: LV EDV SP 4CH 69 mL [facility] Work Phone: LV ESV BP 32 mL [facility] Work Phone: LV ESV SP 2CH 33 mL [facility] Work Phone: LV ESV SP 4CH 31 mL [facility] Work Phone: LV mass 165.46 g [facility] Work Phone: LV Mass Index 105.4 g/m2 [facility] Work Phone: LV RWT 0.60 [facility] Work Phone: LV stroke volume BP (ml) 39 mL [facility] Work Phone: LV stroke volume index BP 24.84 mL/m2 [facility] Work Phone: LVIDD 4.00 cm [facility] Work Phone: LVIDS 3.20 cm [facility] Work Phone: LVOT area 2.27 cm2 [facility] Work Phone: LVOT diameter 1.70 cm [facility] Work Phone: LVOT peak jay 0.94 m/s [facility] Work Phone: LVOT peak VTI 23.00 cm [facility] Work Phone: LVOT stroke volume 52 cm3 [facility] Work Phone: LVOT stroke volume index 33.24 ml/m2 [facility] Work Phone: MV mean gradient 4 mmHg [facility] Work Phone: MV peak gradient 9 mmHg [facility] Work Phone: MV pk A jay 1.21 m/s [facility] Work Phone: MV pk E jay 1.33 m/s [facility] Work Phone: MV stenosis pressure 1/2 time 104.00 ms [facility] Work Phone: MV valve area by continuity eq 1.23 cm2 [facility] Work Phone: MV valve area p 1/2 method 2.12 cm2 [facility] Work Phone: MV VTI 42.30 cm [facility] Work Phone: MVA (continuity VTI) 1.23 cm [facility] Work Phone: [facility] AV VTI RATIO PRE STRESS 0.39 [facility] Work Phone: OSU ECHO LV BIPLANE SYSTOLIC VOLUME INDEX 20.38 mL/m2 [facility] Work Phone: [facility] ECHO LV BP DIASTOLIC VOLUME INDEX 45.22 mL/m2 [facility] Work Phone: [facility] RVOT VTI RATIO 0.48 [facility] Work Phone: PV mean gradient [address] [facility] Work Phone: PV peak gradient [address] [facility] Work Phone: PV PK JAY 1.22 m/s [facility] Work Phone: PV VTI 26.10 cm [facility] Work Phone: PW 1.20 cm [facility] Work Phone: RA vol index 4CH (MOD) 29.94 mL/m2 [facility] Work Phone: Right atrium volume 4 chamber method of disks 47 mL [facility] Work Phone: RV Area diastolic 15.50 cm2 [facility] Work Phone: RV Area systolic 8.[address] [facility] [facility] Work Phone: RV basal diam 4.00 cm [facility] Work Phone: RV Fractional area change 46.1 % [facility] Work Phone: RV long diam 7.10 cm [facility] Work Phone: RV mid diam 2.90 cm [facility] Work Phone: RV S' 10.70 cm/s [facility] Work Phone: RVOT peak gradient 2 mmHg [facility] Work Phone: RVOT peak jay 0.67 m/s [facility] Work Phone: RVOT peak VTI 12.40 cm [facility] Work Phone: Sinus 3.10 cm [facility] Work Phone: STJ 2.50 cm [facility] Work Phone: Stroke Volume 52 cm/mL [facility] Work Phone: Stroke volume index 33 [facility] Work Phone: TAPSE 2.24 cm [facility] Work Phone: [facility] Work Phone: Cardiac echo study Procedure on [...] include technically difficult study. Imaging system used: [employer]. 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 [facility] Radiology Study observation (narrative) [facility] ECHOCARDIOGRAMon 05-29-2022 Echocardiography ? S/p 23 mm [...] the original result were not included. Facility [facility] Patient Information Patient Name Finesse Prather Legal [...] Role Read Date Allen Tay MD Echo Simpson 05/29/2022 Left Heart Measurements LV - Systole [...] Stroke vol (more content not included)... Normal [facility] CBC,PLATELETSon 04-27-2022 Hematocrit (Bld) [Volume fraction] 29.1 % Low 34.9-44.3 [facility] Comment on above: Performed By: #### X M #### [facility] (DEFAULT) [address] [address] Hemoglobin (Bld) [Mass/Vol] 9.8 g/dL Low 11.4-15.2 [facility] Comment on above: Performed By: #### X M #### [facility] (DEFAULT) [address] [address] MCV (RBC) [Entitic vol] 86.1 fL Normal 79.6-97.7 [facility] Comment on above: Performed By: #### X M #### [facility] (DEFAULT) [address] [address] Mean Cell Hgb 29.0 pg Normal 25.9-33.9 [facility] Comment on above: Performed By: #### X M #### [facility] [address] [place] [address] Mean Cell Hgb Conc 33.7 g/dL Normal 31.4-35.9 [facility] Comment on above: Performed By: #### X M #### [facility] (DEFAULT) [address] [place] [address] Platelet mean volume (Bld) [Entitic vol] 10.0 fL Normal 8.5-12.2 [facility] Comment on above: Performed By: #### X M #### [facility] (DEFAULT) [address] [place] [address] Platelets (Bld) [#/Vol] 183 10*3/uL Normal 150-393 [facility] Comment on above: Performed By: #### X M #### [facility] (DEFAULT) [address] [place] [address] RBC (Bld) [#/Vol] 3.38 10*6/uL Low 3.91-5.04 [facility] Comment on above: Performed By: #### X M #### [facility] (DEFAULT) [address] [place] [address] RBC Distribution 13.1 % Normal 10.8-14.9 [facility] Comment on above: Performed By: #### X M #### [facility] (DEFAULT) [address] [place] [address] WBC (Bld) [#/Vol] 6.80 10*3/uL Normal 3.99-11.19 [facility] Comment on above: Performed By: #### X M #### [facility] (DEFAULT) [address] [address] Erythrocyte distribution width (RBC) [Ratio] 13.1 % 10.8 - 14.9 % [facility] Hematocrit (Bld) [Volume fraction] 29.1 % Low 34.9 - 44.3 % [facility] Hemoglobin (Bld) [Mass/Vol] 9.8 g/dL Low 11.4 - 15.2 g/dL [facility] Interpretation and review of laboratory results Abnormal [facility] MCH (RBC) [Entitic mass] 29.0 pg 25.9 - 33.9 pg [facility] MCHC (RBC) [Mass/Vol] 33.7 g/dL 31.4 - 35.9 g/dL [facility] MCV (RBC) [Entitic vol] 86.1 fL 79.6 - 97.7 fL [facility] Platelet mean volume (Bld) [Entitic vol] 10.0 fL 8.5 - 12.2 fL [facility] Platelets (Bld) [#/Vol] 183 10*3/uL 150 - 393 K/uL [facility] RBC (Bld) [#/Vol] 3.38 10*6/uL Low [facility] WBC (Bld) [#/Vol] 6.80 10*3/uL 3.99 - 11. 19 K/uL [facility] CHEM 7 (LYTES,BUN,CREA,GLUC) on 04-27-2022 Anion gap [Moles/Vol] 11 mmol/L Normal 7-17 [facility] Comment on above: Performed By: #### C HM6 #### [facility] (DEFAULT) [address] [place] [address] Chloride [Moles/Vol] 104 mmol/L Normal 98-108 [facility] Comment on above: Performed By: #### C HM6 #### [facility] (DEFAULT) [address] [place] [address] CO2 [Moles/Vol] 26 mmol/L Normal 21-31 [facility] Comment on above: Performed By: #### C HM6 #### [facility] (DEFAULT) [address] [place] [address] Creatinine [Mass/Vol] 0.49 mg/dL Low 0.50-1.20 [facility] Comment on above: Performed By: #### C HM6 #### [facility] (DEFAULT) [address] [place] [address] eGFR, CKD-EPI, Female > Normal >=60 [facility] Comment on above: Result Comment: Repo rted eGFR is based on the CKD-EPI 2020 equation using creatinine, age, and sex. Performed By: #### C HM6 #### [facility] (DEFAULT) [address] [place] [address] Glucose [Mass/Vol] 139 mg/dL High 70-99 [facility] Comment on above: Performed By: #### C HM6 #### [facility] (DEFAULT) [address] [place] [address] Osmolality [Osmolality] 290 mosm/kg Normal 278-305 [facility] Comment on above: Performed By: #### C HM6 #### [facility] (DEFAULT) [address] [place] [address] Potassium [Moles/Vol] 3.7 mmol/L Normal 3.5-5.0 [facility] Comment on above: Performed By: #### C HM6 #### [facility] (DEFAULT) [address] [place] [address] Sodium [Moles/Vol] 137 mmol/L Normal 135-145 [facility] Comment on above: Performed By: #### C HM6 #### [facility] (DEFAULT) [address] [place] [address] Urea nitrogen [Mass/Vol] 15 mg/dL Normal 7-25 [facility] Comment on above: Performed By: #### C HM6 #### [facility] (DEFAULT) [address] [place] [address] Urea nitrogen/Creatinine [Mass ratio] 31 mg/mg Normal [facility] Comment on above: Performed By: #### C HM6 #### [facility] (DEFAULT) [address] [place] [address] Anion gap [Moles/Vol] 11 mmol/L 7 - 17 mmol/L [facility] Chloride [Moles/Vol] 104 mmol/L 98 - 10 8 mmol/L [facility] CO2 [Moles/Vol] 26 mmol/L 21 - 31 mmol/L [facility] Creatinine [Mass/Vol] 0.49 mg/dL Low 0.50 - 1.20 mg/dL [facility] GFR/1.73 sq M.predicted CKD-EPI (S/P/Bld) [Vol rate/Area] - PINF [facility] Comment on above: Reported eGFR is bas ed on the CKD-EPI 2020 equation using creatinine, age, and sex. Glucose [Mass/Vol] 139 mg/dL High 70 - 99 mg/dL [facility] Interpretation and review of laboratory results Abnormal [facility] Osmolality Calc [Osmolality] 290 [facility] Potassium [Moles/Vol] 3.7 mmol/L 3.5 - 5.0 mmol/L [facility] Sodium [Moles/Vol] 137 mmol/L 135 - 145 mmol/L [facility] Urea nitrogen [Mass/Vol] 15 mg/dL 7 - 25 mg/dL [facility] Urea nitrogen/Creatinine [Mass ratio] 31 mg/mg [facility] CONTINUOUS CARDIAC MONITORIN G STRIPon 04-27-2022 [facility] GLUCOSE POCon 04-27-2022 Glucose [Mass/Vol] 169 mg/dL High 70 - 99 mg/dL [facility] Interpretation and review of laboratory results Abnormal [facility] POC Sample Type CAPBL [facility] Test performed at address of the patient encounter. [facility] Glucose [Mass/Vol] 140 mg/dL High 70 - 99 mg/dL [facility] Interpretation and review of laboratory results Abnormal [facility] POC Sample Type CAPBL [facility] Test performed at address of the patient encounter. [place] [facility] Glucose [Mass/Vol] 173 mg/dL High 70 - 99 mg/dL [facility] Interpretation and review of laboratory results Abnormal [facility] POC Sample Type CAPBL [facility] Test performed at address of the patient encounter. [facility] CBC,PLATELETSon 04-26-2022 Hematocrit (Bld) [Volume fraction] 32.3 % Low 34.9-44.3 [facility] Comment on above: Performed By: #### L ABHSTI1 #### [facility] (DEFAULT) [address] [address] Hemoglobin (Bld) [Mass/Vol] 11.0 g/dL Low 11.4-15.2 [facility] Comment on above: Performed By: #### L ABHSTI1 #### [facility] (DEFAULT) [address] [address] MCV (RBC) [Entitic vol] 85.0 fL Normal 79.6-97.7 [facility] Comment on above: Performed By: #### L ABHSTI1 #### [facility] (DEFAULT) [address] [address] Mean Cell Hgb 28.9 pg Normal 25.9-33.9 [facility] Comment on above: Performed By: #### L ABHSTI1 #### [facility] (DEFAULT) [address] [place] [address] Mean Cell Hgb Conc 34.1 g/dL Normal 31.4-35.9 [facility] Comment on above: Performed By: #### L ABHSTI1 #### [facility] (DEFAULT) [address] [address] Platelet mean volume (Bld) [Entitic vol] 10.0 fL Normal 8.5-12.2 [facility] Comment on above: Performed By: #### L ABHSTI1 #### [facility] (DEFAULT) [address] [address] Platelets (Bld) [#/Vol] 235 10*3/uL Normal 150-393 [facility] Comment on above: Performed By: #### L ABHSTI1 #### [facility] (DEFAULT) [address] [place] [address] RBC (Bld) [#/Vol] 3.80 10*6/uL Low 3.91-5.04 [facility] Comment on above: Performed By: #### L ABHSTI1 #### [facility] (DEFAULT) [address] [place] [address] RBC Distribution 13.1 % Normal 10.8-14.9 [facility] Comment on above: Performed By: #### L ABHSTI1 #### [facility] (DEFAULT) [address] [place] [address] WBC (Bld) [#/Vol] 9.81 10*3/uL Normal 3.99-11.19 [facility] Comment on above: Performed By: #### L ABHSTI1 #### [facility] (DEFAULT) [address] [place] [address] Erythrocyte distribution width (RBC) [Ratio] 13.1 % 10.8 - 14.9 % [facility] Hematocrit (Bld) [Volume fraction] 32.3 % Low 34.9 - 44.3 % [facility] Hemoglobin (Bld) [Mass/Vol] 11.0 g/dL Low 11.4 - 15.2 g/dL [facility] Interpretation and review of laboratory results Abnormal [facility] MCH (RBC) [Entitic mass] 28.9 pg 25.9 - 33.9 pg [facility] MCHC (RBC) [Mass/Vol] 34.1 g/dL 31.4 - 35.9 g/dL [facility] MCV (RBC) [Entitic vol] 85.0 fL 79.6 - 97.7 fL [facility] Platelet mean volume (Bld) [Entitic vol] 10.0 fL 8.5 - 12.2 fL [facility] Platelets (Bld) [#/Vol] 235 10*3/uL 150 - 393 K/uL [facility] RBC (Bld) [#/Vol] 3.80 10*6/uL Low [facility] WBC (Bld) [#/Vol] 9.81 10*3/uL 3.99 - 11. 19 K/uL [facility] CHEM 7 (LYTES,BUN,CREA,GLUC) on 04-26-2022 Anion gap [Moles/Vol] 14 mmol/L Normal 7-17 [facility] Comment on above: Performed By: #### C HM6 #### [facility] (DEFAULT) [address] [address] Chloride [Moles/Vol] 105 mmol/L Normal 98-108 [facility] Comment on above: Performed By: #### C HM6 #### [facility] (DEFAULT) [address] [address] CO2 [Moles/Vol] 22 mmol/L Normal 21-31 [facility] Comment on above: Performed By: #### C HM6 #### [facility] (DEFAULT) [address] [address] Creatinine [Mass/Vol] 0.63 mg/dL Normal 0.50-1.20 [facility] Comment on above: Performed By: #### C HM6 #### [facility] (DEFAULT) [address] [address] GFR/1.73 sq M.predicted among non-blacks MDRD (S/P/Bld) [Vol rate/Area] 86 mL/min/{1.73_m2} Normal >=60 [facility] Comment on above: Result Comment: Repo rted eGFR is based on the CKD-EPI 2020 equation using creatinine, age, and sex. Performed By: #### C HM6 #### [facility] (DEFAULT) [address] [address] Glucose [Mass/Vol] 126 mg/dL High 70-99 [facility] Comment on above: Performed By: #### C HM6 #### [facility] (DEFAULT) [address] [place] [address] Osmolality [Osmolality] 290 mosm/kg Normal 278-305 [facility] Comment on above: Performed By: #### C HM6 #### [facility] (DEFAULT) [address] [place] [address] Potassium [Moles/Vol] 4.2 mmol/L Normal 3.5-5.0 [facility] Comment on above: Performed By: #### C HM6 #### [facility] (DEFAULT) [address] [place] [address] Sodium [Moles/Vol] 137 mmol/L Normal 135-145 [facility] Comment on above: Performed By: #### C HM6 #### [facility] (DEFAULT) [address] [place] [address] Urea nitrogen [Mass/Vol] 15 mg/dL Normal 7-25 [facility] Comment on above: Performed By: #### C HM6 #### [facility] (DEFAULT) [address] [place] [address] Urea nitrogen/Creatinine [Mass ratio] 24 mg/mg Normal [facility] Comment on above: Performed By: #### C HM6 #### [facility] (DEFAULT) [address] [place] [address] Anion gap [Moles/Vol] 14 mmol/L 7 - 17 mmol/L [facility] Chloride [Moles/Vol] 105 mmol/L 98 - 10 8 mmol/L [facility] CO2 [Moles/Vol] 22 mmol/L 21 - 31 mmol/L [facility] Creatinine [Mass/Vol] 0.63 mg/dL 0.50 - 1.20 mg/dL [facility] GFR/1.73 sq M.predicted CKD-EPI (S/P/Bld) [Vol rate/Area] 86 - PINF [facility] Comment on above: Reported eGFR is bas ed on the CKD-EPI 2020 equation using creatinine, age, and sex. Glucose [Mass/Vol] 126 mg/dL High 70 - 99 mg/dL [facility] Interpretation and review of laboratory results Abnormal [facility] Osmolality Calc [Osmolality] 290 [facility] Potassium [Moles/Vol] 4.2 mmol/L 3.5 - 5.0 mmol/L [facility] Sodium [Moles/Vol] 137 mmol/L 135 - 145 mmol/L [facility] Urea nitrogen [Mass/Vol] 15 mg/dL 7 - 25 mg/dL [facility] Urea nitrogen/Creatinine [Mass ratio] 24 mg/mg [facility] GLUCOSE POCon 04-26-2022 Glucose [Mass/Vol] 169 mg/dL High 70 - 99 mg/dL [facility] Interpretation and review of laboratory results Abnormal [facility] POC Sample Type CAPBL [facility] Test performed at address of the patient encounter. [facility] Glucose [Mass/Vol] 161 mg/dL High 70 - 99 mg/dL [facility] Interpretation and review of laboratory results Abnormal [facility] POC Sample Type CAPBL [facility] Test performed at address of the patient encounter. [facility] Glucose [Mass/Vol] 248 mg/dL High 70 - 99 mg/dL [facility] Interpretation and review of laboratory results Abnormal [facility] POC Sample Type CAPBL [facility] Test performed at address of the patient encounter. [facility] B-TYPE NATRIURETIC PEPTIDE ( BRAIN)on 04-25-2022 Natriuretic peptide B (Bld) [Mass/Vol] 530 pg/mL High 0-100 [facility] Comment on above: Performed By: #### S CRSB #### [facility] (DEFAULT) [address] [address] Interpretation and review of laboratory results Abnormal [facility] Natriuretic peptide B (Bld) [Mass/Vol] 530 pg/mL High 0 - 100 pg/mL [facility] CBC,PLATELETSon 04-25-2022 Hematocrit (Bld) [Volume fraction] 32.1 % Low 34.9-44.3 [facility] Comment on above: Order Comment: Colle [...] by the [facility] at [facility]. It has not been cleared or approved by the FDA.The laboratory is regulated under CLIA as qualified to perform high-complexity testing. This test is used for clinical purposes. It should not be regarded as investigational or for research. Performed By: #### S CRSB #### [facility] (DEFAULT) [address] [address] Hemoglobin (Bld) [Mass/Vol] 10.6 g/dL Low 11.4-15.2 [facility] Comment on above: Order Comment: Colle [...] by the [facility] at [facility]. It has not been cleared or approved by the FDA.The laboratory is regulated under CLIA as qualified to perform high-complexity testing. This test is used for clinical purposes. It should not be regarded as investigational or for research. Performed By: #### S CRSB #### [facility] (DEFAULT) [address] [address] MCV (RBC) [Entitic vol] 88.7 fL Normal 79.6-97.7 [facility] Comment on above: Order Comment: Colle [...] by the [facility] at [facility]. It has not been cleared or approved by the FDA.The laboratory is regulated under CLIA as qualified to perform high-complexity testing. This test is used for clinical purposes. It should not be regarded as investigational or for research. Performed By: #### S CRSB #### [facility] [address] [place] [address] Mean Cell Hgb 29.3 pg Normal 25.9-33.9 [facility] Comment on above: Order Comment: Colle [...] by the [facility] at [facility]. It has not been cleared or approved by the FDA.The laboratory is regulated under CLIA as qualified to perform high-complexity testing. This test is used for clinical purposes. It should not be regarded as investigational or for research. Performed By: #### S CRSB #### [facility] (DEFAULT) [address] [place] [address] Mean Cell Hgb Conc 33.0 g/dL Normal 31.4-35.9 [facility] Comment on above: Order Comment: Colle ct [...] by the [facility] at [facility]. It has not been cleared or approved by the FDA.The laboratory is regulated under CLIA as qualified to perform high-complexity testing. This test is used for clinical purposes. It should not be regarded as investigational or for research. Performed By: #### S CRSB #### [facility] (DEFAULT) [address] [address] Platelet mean volume (Bld) [Entitic vol] 10.2 fL Normal 8.5-12.2 [facility] Comment on above: Order Comment: Colle [...] by the [facility]. It has not been cleared or approved by the FDA.The laboratory is regulated under CLIA as qualified to perform high-complexity testing. This test is used for clinical purposes. It should not be regarded as investigational or for research. Performed By: #### S CRSB #### [facility] (DEFAULT) [address] [address] Platelets (Bld) [#/Vol] 204 10*3/uL Normal 150-393 [facility] Comment on above: Order Comment: Colle [...] by the [facility] at [facility]. It has not been cleared or approved by the FDA.The laboratory is regulated under CLIA as qualified to perform high-complexity testing. This test is used for clinical purposes. It should not be regarded as investigational or for research. Performed By: #### S CRSB #### [facility] (DEFAULT) [address] [address] RBC (Bld) [#/Vol] 3.62 10*6/uL Low 3.91-5.04 [facility] Comment on above: Order Comment: Colle [...] by the [facility]. It has not been cleared or approved by the FDA.The laboratory is regulated under CLIA as qualified to perform high-complexity testing. This test is used for clinical purposes. It should not be regarded as investigational or for research. Performed By: #### S CRSB #### [facility] (DEFAULT) [address] [address] RBC Distribution 12.9 % Normal 10.8-14.9 [facility] Comment on above: Order Comment: Colle ct [...] by the [facility]. It has not been cleared or approved by the FDA.The laboratory is regulated under CLIA as qualified to perform high-complexity testing. This test is used for clinical purposes. It should not be regarded as investigational or for research. Performed By: #### S CRSB #### [facility] (DEFAULT) [address] [address] WBC (Bld) [#/Vol] 7.88 10*3/uL Normal 3.99-11.19 [facility] Comment on above: Order Comment: Colle [...] by the [facility]. It has not been cleared or approved by the FDA.The laboratory is regulated under CLIA as qualified to perform high-complexity testing. This test is used for clinical purposes. It should not be regarded as investigational or for research. Performed By: #### S CRSB #### [facility] (DEFAULT) [address] [place] [address] Erythrocyte distribution width (RBC) [Ratio] 12.9 % 10.8 - 14.9 % [facility] Hematocrit (Bld) [Volume fraction] 32.1 % Low 34.9 - 44.3 % [facility] Hemoglobin (Bld) [Mass/Vol] 10.6 g/dL Low 11.4 - 15.2 g/dL [facility] Interpretation and review of laboratory results Abnormal [facility] MCH (RBC) [Entitic mass] 29.3 pg 25.9 - 33.9 pg [facility] MCHC (RBC) [Mass/Vol] 33.0 g/dL 31.4 - 35.9 g/dL [facility] MCV (RBC) [Entitic vol] 88.7 fL 79.6 - 97.7 fL [facility] Platelet mean volume (Bld) [Entitic vol] 10.2 fL 8.5 - 12.2 fL [facility] Platelets (Bld) [#/Vol] 204 10*3/uL 150 - 393 K/uL [facility] RBC (Bld) [#/Vol] 3.62 10*6/uL [facility] [#/Vol] 7.88 10*3/uL 3.99 - 11. 19 K/uL [facility] Hematocrit (Bld) [Volume fraction] 32.3 % Low 34.9-44.3 [facility] Comment on above: Performed By: #### C HM6 #### [facility] (DEFAULT) [address] [place] [address] Hemoglobin (Bld) [Mass/Vol] 10.9 g/dL Low 11.4-15.2 [facility] Comment on above: Performed By: #### C HM6 #### [facility] (DEFAULT) [address] [address] MCV (RBC) [Entitic vol] 85.7 fL Normal 79.6-97.7 [facility] Comment on above: Performed By: #### C HM6 #### [facility] (DEFAULT) [address] [address] Mean Cell Hgb 28.9 pg Normal 25.9-33.9 [facility] Comment on above: Performed By: #### C HM6 #### [facility] (DEFAULT) [address] [address] Mean Cell Hgb Conc 33.7 g/dL Normal 31.4-35.9 [facility] Comment on above: Performed By: #### C HM6 #### [facility] (DEFAULT) [address] [place] [address] Platelet mean volume (Bld) [Entitic vol] 9.7 fL Normal 8.5-12.2 [facility] Comment on above: Performed By: #### C HM6 #### [facility] (DEFAULT) [address] [address] Platelets (Bld) [#/Vol] 236 10*3/uL Normal 150-393 [facility] Comment on above: Performed By: #### C HM6 #### [facility] (DEFAULT) [address] [place] [address] RBC (Bld) [#/Vol] 3.77 10*6/uL Low 3.91-5.04 [facility] Comment on above: Performed By: #### C HM6 #### [facility] (DEFAULT) [address] [place] [address] RBC Distribution 13.0 % Normal 10.8-14.9 [facility] Comment on above: Performed By: #### C HM6 #### [facility] (DEFAULT) [address] [place] [address] WBC (Bld) [#/Vol] 6.32 10*3/uL Normal 3.99-11.19 [facility] Comment on above: Performed By: #### C HM6 #### [facility] (DEFAULT) [address] [place] [address] Erythrocyte distribution width (RBC) [Ratio] 13.0 % 10.8 - 14.9 % [facility] Hematocrit (Bld) [Volume fraction] 32.3 % Low 34.9 - 44.3 % [facility] Hemoglobin (Bld) [Mass/Vol] 10.9 g/dL Low 11.4 - 15.2 g/dL [facility] Interpretation and review of laboratory results Abnormal [facility] MCH (RBC) [Entitic mass] 28.9 pg 25.9 - 33.9 pg [facility] MCHC (RBC) [Mass/Vol] 33.7 g/dL 31.4 - 35.9 g/dL [facility] MCV (RBC) [Entitic vol] 85.7 fL 79.6 - 97.7 fL [facility] Platelet mean volume (Bld) [Entitic vol] 9.7 fL 8.5 - 12.2 fL [facility] Platelets (Bld) [#/Vol] 236 10*3/uL 150 - 393 K/uL [facility] RBC (Bld) [#/Vol] 3.77 10*6/uL Low [facility] WBC (Bld) [#/Vol] 6.32 10*3/uL 3.99 - 11. 19 K/uL [facility] CHEM 7 (LYTES,BUN,CREA,GLUC) on 04-25-2022 Anion gap [Moles/Vol] 13 mmol/L Normal 7-17 [facility] Comment on above: Order Comment: Draw upon arrival to unit. Performed By: #### NATHALIE GONSALVES7 ####[facility] (DEFAULT)[address] [place] [address] Chloride [Moles/Vol] 106 mmol/L Normal 98-108 [facility] Comment on above: Order Comment: Draw upon arrival to unit. Performed By: #### NATHALIE GONSALVES7 ####[facility] (DEFAULT)[address] [facility] [place] [address] CO2 [Moles/Vol] 24 mmol/L Normal 21-31 [facility] Comment on above: Order Comment: Draw upon arrival to unit. Performed By: #### NATHALIE GONSALVES7 ####[facility] (DEFAULT)[address] [place] [address] Creatinine [Mass/Vol] 0.64 mg/dL Normal 0.50-1.20 [facility] Comment on above: Order Comment: Draw upon arrival to unit. Performed By: #### NATHALIE GONSALVES7 ####[facility] (DEFAULT)[address] [place] [address] GFR/1.73 sq M.predicted among non-blacks MDRD (S/P/Bld) [Vol rate/Area] 85 mL/min/{1.73_m2} Normal >=60 [facility] Comment on above: Order Comment: Draw upon arrival to unit. Result Comment: Repo rted eGFR is based on the CKD-EPI 2020 equation using creatinine, age, and sex. Performed By: #### NATHALIE GONSALVES7 ####[facility] (DEFAULT)[address] [place] [address] Glucose [Mass/Vol] 150 mg/dL High 70-99 [facility] Comment on above: Order Comment: Draw upon arrival to unit. Performed By: #### NATHALIE GONSALVES7 ####[facility] (DEFAULT)[address] [place] [address] Osmolality [Osmolality] 296 mosm/kg Normal 278-305 [facility] Comment on above: Order Comment: Draw upon arrival to unit. Performed By: #### NATHALIE GONSALVES7 ####[facility] (DEFAULT)[address] [facility] [place] [address] Potassium [Moles/Vol] 4.5 mmol/L Normal 3.5-5.0 [facility] Comment on above: Order Comment: Draw upon arrival to unit. Performed By: #### NATHALIE GONSALVES7 ####[facility] (DEFAULT)[address] [facility] [place] [address] Sodium [Moles/Vol] 138 mmol/L Normal 135-145 [facility] Comment on above: Order Comment: Draw upon arrival to unit. Performed By: #### NATHALIE GONSALVES7 ####[facility] (DEFAULT)[address] [facility] [place] [address] Urea nitrogen [Mass/Vol] 21 mg/dL Normal 7-25 [facility] Comment on above: Order Comment: Draw upon arrival to unit. Performed By: #### NATHALIE GONSALVES7 ####[facility] (DEFAULT)[address] [place] [address] Urea nitrogen/Creatinine [Mass ratio] 33 mg/mg Normal [facility] Comment on above: Order Comment: Draw upon arrival to unit. Performed By: #### NATHALIE GONSALVES7 ####[facility] (DEFAULT)[address] [place] [address] Anion gap [Moles/Vol] 13 mmol/L 7 - 17 mmol/L [facility] Chloride [Moles/Vol] 106 mmol/L 98 - 10 8 mmol/L [facility] CO2 [Moles/Vol] 24 mmol/L 21 - 31 mmol/L [facility] Creatinine [Mass/Vol] 0.64 mg/dL 0.50 - 1.20 mg/dL [facility] GFR/1.73 sq M.predicted CKD-EPI (S/P/Bld) [Vol rate/Area] 85 - PINF [facility] Comment on above: Reported eGFR is bas ed on the CKD-EPI 2020 equation using creatinine, age, and sex. Glucose [Mass/Vol] 150 mg/dL High 70 - 99 mg/dL [facility] Interpretation and review of laboratory results Abnormal [facility] Osmolality Calc [Osmolality] 296 [facility] Potassium [Moles/Vol] 4.5 mmol/L 3.5 - 5.0 mmol/L [facility] Sodium [Moles/Vol] 138 mmol/L 135 - 145 mmol/L [facility] Urea nitrogen [Mass/Vol] 21 mg/dL 7 - 25 mg/dL [facility] Urea nitrogen/Creatinine [Mass ratio] 33 mg/mg [facility] Anion gap [Moles/Vol] 14 mmol/L Normal 7-17 [facility] Comment on above: Performed By: #### L ABHSTI1 #### [facility] (DEFAULT) [address] [place] [address] Chloride [Moles/Vol] 105 mmol/L Normal 98-108 [facility] Comment on above: Performed By: #### L ABHSTI1 #### [facility] (DEFAULT) [address] [place] [address] CO2 [Moles/Vol] 23 mmol/L Normal 21-31 [facility] Comment on above: Performed By: #### L ABHSTI1 #### [facility] (DEFAULT) [address] [place] [address] Creatinine [Mass/Vol] 0.66 mg/dL Normal 0.50-1.20 [facility] Comment on above: Performed By: #### L ABHSTI1 #### [facility] (DEFAULT) [address] [place] [address] GFR/1.73 sq M.predicted among non-blacks MDRD (S/P/Bld) [Vol rate/Area] 85 mL/min/{1.73_m2} Normal >=60 [facility] Comment on above: Result Comment: Repo rted eGFR is based on the CKD-EPI 2020 equation using creatinine, age, and sex. Performed By: #### L ABHSTI1 #### [facility] (DEFAULT) [address] [address] Glucose [Mass/Vol] 106 mg/dL High 70-99 [facility] Comment on above: Performed By: #### L ABHSTI1 #### [facility] (DEFAULT) [address] [place] [address] Osmolality [Osmolality] 295 mosm/kg Normal 278-305 [facility] Comment on above: Performed By: #### L ABHSTI1 #### [facility] (DEFAULT) [address] [place] [address] Potassium [Moles/Vol] 4.3 mmol/L Normal 3.5-5.0 [facility] Comment on above: Performed By: #### L ABHSTI1 #### [facility] [facility] (DEFAULT) [address] [address] Sodium [Moles/Vol] 138 mmol/L Normal 135-145 [facility] Comment on above: Performed By: #### L ABHSTI1 #### U [facility] (DEFAULT) [address] [address] Urea nitrogen [Mass/Vol] 27 mg/dL High 7-25 [facility] Comment on above: Performed By: #### L ABHSTI1 #### U [facility] (DEFAULT) [address] [place] [phone] Urea nitrogen/Creatinine [Mass ratio] 41 mg/mg Normal [facility] Comment on above: Performed By: #### L [facility] #### [facility] (DEFAULT) [address] [place] [address] Anion gap [Moles/Vol] 14 mmol/L 7 - 17 mmol/L [facility] Chloride [Moles/Vol] 105 mmol/L 98 - 10 8 mmol/L [facility] CO2 [Moles/Vol] 23 mmol/L 21 - 31 mmol/L [facility] Creatinine [Mass/Vol] 0.66 mg/dL 0.50 - 1.20 mg/dL [facility] GFR/1.73 sq M.predicted CKD-EPI (S/P/Bld) [Vol rate/Area] 85 - PINF [facility] Comment on above: Reported eGFR is bas ed on the CKD-EPI 2020 equation using creatinine, age, and sex. Glucose [Mass/Vol] 106 mg/dL High 70 - 99 mg/dL [facility] Interpretation and review of laboratory results Abnormal [facility] Osmolality Calc [Osmolality] 295 [facility] Potassium [Moles/Vol] 4.3 mmol/L 3.5 - 5.0 mmol/L [facility] Sodium [Moles/Vol] 138 mmol/L 135 - 145 mmol/L [facility] Urea nitrogen [Mass/Vol] 27 mg/dL High 7 - 25 mg/dL [facility] Urea nitrogen/Creatinine [Mass ratio] 41 mg/mg [facility] Cardiac catheterization stud yon 04-25-2022 [facility] Radiology Study observation (narrative) [facility] Cardiac echo study Procedure Ordered By: Allen Tay on 04-25-2022 Ao peak jay 1.90 m/s [facility] Work Phone: Ao VTI 45.52 cm [facility] Work Phone: Ascending aorta 3.01 cm [facility] Work Phone: AV LVOT peak gradient [facility]: [facility] peak gradient 14 mmHG [facility] Work Phone: AV valve area 1.03 cm2 [facility] Work Phone: AV Velocity Ratio 0.50 [facility] Work Phone: LIDIA (continuity Vmax) 0.97 cm2 [facility] Work Phone: LIDIA (continuity VTI) 1.03 cm2 [facility] Work Phone: LIDIA index (continuity Vmax) 0.62 m/s [facility] Work Phone: LIDIA index (continuity VTI) 0.67 cm2/m2 [facility] Work Phone: Avg e' pk jay 0.04 m/s [facility] Work Phone: Avg E/e' ratio 33.52 [facility] Work Phone: Body surface area Derived from formula 1.55 m2 [facility] Work Phone: BP EF 50 % [facility] Work Phone: DI (Vmax) 0.50 [facility] Work Phone: DI (VTI) 0.53 m/2 [facility] Work Phone: E wave decelartion time 271.51 msec [facility] Work Phone: e' lateral pk jay [facility].0400 [facility]: e' lateral pk jay 0.04 m/s [facility] Work Phone: e' septal pk jay 0.0344 m/s [facility] Work Phone: e' septal pk jay 0.03 m/s [facility] Work Phone: E/A ratio 0.94 [facility] Work Phone: E/e' lateral ratio 31.00 [facility] Work Phone: E/e' septal ratio 36.05 [facility] Work [facility]: EF SP 2CH 63 [facility] Work Phone: EF SP 4CH 38 [facility] Work Phone: FS 19 % 28 - 44 % [facility] Work Phone: IVC ostium 1.29 cm [facility] Work Phone: IVS 1.46 cm [facility] Work Phone: LA AREA 2CH 17.45 cm2 [facility] Work Phone: LA area 4CH 21.49 cm2 [facility] Work Phone: LA ESV BP (MOD) 63 mL [facility] Work Phone: LA ESV BP (MOD) index 41 mL/m2 [facility] Work Phone: LA ESV SP 2CH (MOD) 52 mL [facility] Work Phone: LA ESV SP 4CH (MOD) 58 [facility]: LV EDV BP 58 mL [facility] Work Phone: LV EDV SP 2CH 59 mL [facility] Work Phone: LV EDV SP 4CH 55 mL [facility] Work Phone: LV ESV BP 29 mL [facility] Work Phone: LV ESV SP 2CH 22 mL [facility] Work Phone: LV ESV SP 4CH 34 mL [facility] Work Phone: LV mass 144.20 g [facility] Work Phone: LV Mass Index 93.0 g/m2 [facility] Work Phone: LV RWT 0.71 [facility] Work Phone: LV stroke volume BP (ml) 29 mL [facility] Work Phone: LV stroke volume index BP 18.71 mL/m2 [facility] Work Phone: LVIDD 3.30 cm [facility] Work Phone: LVIDS 2.67 cm [facility] Work Phone: LVOT area 1.93 cm2 [facility] Work Phone: LVOT diameter 1.57 cm [facility] Work Phone: LVOT peak jay 0.95 m/s [facility] Work Phone: LVOT peak VTI 24.26 cm [facility] Work Phone: LVOT stroke volume 47 cm3 [facility] Work Phone: LVOT stroke volume index 30.29 ml/m2 [facility] Work Phone: MV mean gradient [address] [facility] Work Phone: MV peak gradient [address] [facility] Work Phone: MV pk A jay 1.32 m/s [facility] Work Phone: MV pk E jay 1.24 m/s [facility] Work Phone: MV valve area by continuity eq 0.93 cm2 [facility] Work Phone: MV VTI 50.60 cm [facility] Work Phone: MVA (continuity VTI) 0.93 cm [facility] Work Phone: [facility] AV VTI RATIO PRE STRESS 0.53 [facility] Work Phone: OSU ECHO LV BIPLANE SYSTOLIC VOLUME INDEX 18.71 mL/m2 [facility] Work Phone: OSU ECHO LV BP DIASTOLIC VOLUME INDEX 37.42 mL/m2 [facility] Work Phone: PV peak gradient [facility]: PV PK JAY 0.83 m/s [facility] Work Phone: PW 1.17 cm [facility] Work Phone: RVOT peak gradient 2 mmHg [facility] Work Phone: RVOT peak jay 0.66 m/s [facility] Work Phone: Sinus 2.85 cm [facility] Work Phone: STJ 2.29 cm [facility] Work Phone: Stroke Volume 47 cm/mL [facility] Work Phone: Stroke volume index 30 [facility] Work Phone: TAPSE 2.01 cm [facility] Work Phone: [facility] Work Phone: Cardiac echo study Procedure on [...] echocardiography study was performed. Imaging system used: [employer]. 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 [facility] Radiology Study observation (narrative) [facility] ECHOCARDIOGRAMon 04-25-2022 Echocardiography ? S/p 23 mm [...] the original result were not included. Facility [facility] Patient Information Patient Name Finesse Prather Legal [...] Role Read Date Allen Tay MD Echo Simpson 04/25/2022 Left Heart Measurements LV - Systole [...] 30.29 ml/m (more content not included)... Normal [facility] GLUCOSE POCon 04-25-2022 Glucose [Mass/Vol] 225 mg/dL High 70 - 99 mg/dL [facility] Interpretation and review of laboratory results Abnormal [facility] POC Sample Type CAPBL [facility] Test performed at address of the patient encounter. [facility] Glucose [Mass/Vol] 219 mg/dL High 70 - 99 mg/dL [facility] Interpretation and review of laboratory results Abnormal [facility] POC Sample Type CAPBL [facility] Test performed at address of the patient encounter. [facility] Glucose [Mass/Vol] 149 mg/dL High 70 - 99 mg/dL [facility] Interpretation and review of laboratory results Abnormal [facility] POC Sample Type CAPBL [facility] Test performed at address of the patient encounter. [facility] Glucose [Mass/Vol] 135 mg/dL High 70 - 99 mg/dL [facility] Interpretation and review of laboratory results Abnormal [facility] POC Sample Type CAPBL [facility] Test performed at address of the patient encounter. [facility] MAGNESIUMon 04-25-2022 Magnesium [Mass/Vol] 1.8 mg/dL Normal 1.6-2.6 [facility] Comment on above: Order Comment: Draw upon arrival to unit. Performed By: #### M [facility] ####[facility] (DEFAULT)[address] [place] [address] Interpretation and review of laboratory results Normal [facility] Magnesium [Mass/Vol] 1.8 mg/dL 1.6 - 2 .6 mg/dL [facility] METANEPHRINES,24HR URINEon 0 04-25-2022 Annotation comment [Interpretation] Narrative DNR [facility] Collection duration (U) 24 h [facility] Metanephrine (24H U) [Mass/Time] 87 mcg/24 h [facility] Comment on above: REFERENCE VALUE 30-180 (Normotensive) <400 (Hypertensive) Metanephrines (24H U) [Mass/Time] 567 mcg/24 h [facility] Comment on above: REFERENCE VALUE 180-646 (Normotensive) <1300 (Hypertensive) Normetanephrine (24H U) [Mass/Time] 480 mcg/24 h [facility] Comment on above: REFERENCE VALUE 148-560 (Normotensive) <900 (Hypertensive) Specimen volume (24H U) 0.861 L [facility] Comment on above: ADDITIONAL INFORMATION This test was developed and its performance characteristics determined by [facility] in a manner consistent with CLIA requirements. This test has not been cleared or approved by the U.S. Food and Drug Administration. Test Performed by: [facility] [address] [place] [address] Visitor Services Information Assistant: Sha Goode M.D. Ph.D.; CLIA# [id number] [facility] No Panel Informationon 04-25 ABO/RH(D) TYPE Positive [facility] BLOOD COMPONENT TYPE Red Cells, Leukoreduced [facility] EXPIRATION DATE [id number] [facility] Product ABO/RH(D) Positive [facility] Product ABO/RH(D) NUMBER [id number] [facility] PRODUCT CODE [id number] [facility] UNIT STATUS released [facility] PREPARE TO TRANSFUSE OR RED BLOOD CELLSon 04-25-2022 UNIT NUMBER [id number] [facility] UNIT NUMBER [id number] [facility] PT,INR,PTTon 04-25-2022 aPTT Coag (Bld) [Time] 31.2 s Normal 24.0-34.3 [facility] Comment on above: Order Comment: Draw upon arrival to unit. Performed By: #### C HM6 #### [facility] (DEFAULT) [address] [place] [id number] INR Coag (PPP) [Relative time] 1.1 {INR} Normal 0.9-1.1 [facility] Comment on above: Order Comment: Draw upon arrival to unit. Performed By: #### C HM6 #### [facility] (DEFAULT) [address] [place] [id number] PT Coag (PPP) [Time] 14.1 s Normal 11.9-14.2 [facility] Comment on above: Order Comment: Draw upon arrival to unit. Performed By: #### C HM6 #### [facility] (DEFAULT) [address] [place] [phone] aPTT Coag (PPP) [Time] 31.2 s [facility] INR Coag (Bld) [Relative time] 1.1 {INR} 0.9 - 1.1 [facility] Interpretation and review of laboratory results Normal [facility] PT Coag (PPP) [Time] 14.1 s [facility] Portable XR Chest Viewson IMPRESSION: Skinfold at [...] lateral apex. Mild edema. Linear atelectatic changes. [facility] Radiology Study observation (narrative) [facility] Portable XR Chest ViewsOrder ed By: Sung Uriarte on 04-25-2022 [facility] Work Phone: XR CHEST PORTABLEon 04-25-19 XR [...] apex. Mild edema. Linear atelectatic changes. Normal [facility] ABORH TYPE RECONFIRMATIONon 04-24-2022 ABO/RH(D) TYPE Positive [facility] ABO/RH(D) TYPE Positive Normal [facility] Comment on above: Performed By: #### T YPEC #### [facility] (DEFAULT) [address] [place] [address] CBC,PLATELETSon 04-24-2022 Hematocrit (Bld) [Volume fraction] 31.2 % Low 34.9-44.3 [facility] Comment on above: Performed By: #### C HM6 #### [facility] (DEFAULT) [address] [address] Hemoglobin (Bld) [Mass/Vol] 10.3 g/dL Low 11.4-15.2 [facility] Comment on above: Performed By: #### C HM6 #### [facility] (DEFAULT) [address] [place] [address] MCV (RBC) [Entitic vol] 86.2 fL Normal 79.6-97.7 [facility] Comment on above: Performed By: #### C HM6 #### U [facility] (DEFAULT) [address] [place] [address] Mean Cell Hgb 28.5 pg Normal 25.9-33.9 [facility] Comment on above: Performed By: #### C HM6 #### Robert [facility] (DEFAULT) [address] [place] [address] Mean Cell Hgb Conc 33.0 g/dL Normal 31.4-35.9 [facility] Comment on above: Performed By: #### C HM6 #### Robert [facility] (DEFAULT) [address] [place] [address] Platelet mean volume (Bld) [Entitic vol] 9.9 fL Normal 8.5-12.2 [facility] Comment on above: Performed By: #### C HM6 #### [facility] (DEFAULT) [address] [address] Platelets (Bld) [#/Vol] 205 10*3/uL Normal 150-393 [facility] Comment on above: Performed By: #### C HM6 #### [facility] (DEFAULT) [address] [place] [address] RBC (Bld) [#/Vol] 3.62 10*6/uL Low 3.91-5.04 [facility] Comment on above: Performed By: #### C HM6 #### [facility] (DEFAULT) [address] [address] RBC Distribution 13.0 % Normal 10.8-14.9 [facility] Comment on above: Performed By: #### C HM6 #### Robert [facility] (DEFAULT) [address] [place] [phone] WBC (Bld) [#/Vol] 5.78 10*3/uL Normal 3.99-11.19 [facility] Comment on above: Performed By: #### C HM6 #### [facility] (DEFAULT) [address] [place] [address] Erythrocyte distribution width (RBC) [Ratio] 13.0 % 10.8 - 14.9 % [facility] Hematocrit (Bld) [Volume fraction] 31.2 % Low 34.9 - 44.3 % [facility] Hemoglobin (Bld) [Mass/Vol] 10.3 g/dL Low 11.4 - 15.2 g/dL [facility] Interpretation and review of laboratory results Abnormal [facility] MCH (RBC) [Entitic mass] 28.5 pg 25.9 - 33.9 pg [facility] MCHC (RBC) [Mass/Vol] 33.0 g/dL 31.4 - 35.9 g/dL [facility] MCV (RBC) [Entitic vol] 86.2 fL 79.6 - 97.7 fL [facility] Platelet mean volume (Bld) [Entitic vol] 9.9 fL 8.5 - 12.2 fL [facility] Platelets (Bld) [#/Vol] 205 10*3/uL 150 - 393 K/uL [facility] RBC (Bld) [#/Vol] 3.62 10*6/uL Low [facility] WBC (Bld) [#/Vol] 5.78 10*3/uL 3.99 - 11. 19 K/uL [facility] CHEM 7 (LYTES,BUN,CREA,GLUC) on 04-24-2022 Anion gap [Moles/Vol] 11 mmol/L Normal 7-17 [facility] Comment on above: Performed By: #### C HM7 #### U [facility] (DEFAULT) [address] [place] [address] Chloride [Moles/Vol] 106 mmol/L Normal 98-108 [facility] Comment on above: Performed By: #### C HM7 #### [facility] (DEFAULT) [address] [place] [address] CO2 [Moles/Vol] 25 mmol/L Normal 21-31 [facility] Comment on above: Performed By: #### C HM7 #### [facility] (DEFAULT) [address] [place] [address] Creatinine [Mass/Vol] 0.62 mg/dL Normal 0.50-1.20 [facility] Comment on above: Performed By: #### C HM7 #### [facility] (DEFAULT) [address] [place] [address] GFR/1.73 sq M.predicted among non-blacks MDRD (S/P/Bld) [Vol rate/Area] 86 mL/min/{1.73_m2} Normal >=60 [facility] Comment on above: Result Comment: Repo rted eGFR is based on the CKD-EPI 2020 equation using creatinine, age, and sex. Performed By: #### C HM7 #### [facility] (DEFAULT) [address] [place] [address] Glucose [Mass/Vol] 140 mg/dL High 70-99 [facility] Comment on above: Performed By: #### C HM7 #### [facility] (DEFAULT) [address] [place] [address] Osmolality [Osmolality] 295 mosm/kg Normal 278-305 [facility] Comment on above: Performed By: #### C HM7 #### [facility] (DEFAULT) [address] [place] [address] Potassium [Moles/Vol] 4.4 mmol/L Normal 3.5-5.0 [facility] Comment on above: Performed By: #### C HM7 #### [facility] (DEFAULT) [address] [place] [address] Sodium [Moles/Vol] 138 mmol/L Normal 135-145 [facility] Comment on above: Performed By: #### C HM7 #### [facility] (DEFAULT) [address] [place] [address] Urea nitrogen [Mass/Vol] 21 mg/dL Normal 7-25 [facility] Comment on above: Performed By: #### C HM7 #### [facility] (DEFAULT) [address] [place] [address] Urea nitrogen/Creatinine [Mass ratio] 34 mg/mg Normal [facility] Comment on above: Performed By: #### C HM7 #### [facility] (DEFAULT) [address] [place] [address] Anion gap [Moles/Vol] 11 mmol/L 7 - 17 mmol/L [facility] Chloride [Moles/Vol] 106 mmol/L 98 - 10 8 mmol/L [facility] CO2 [Moles/Vol] 25 mmol/L 21 - 31 mmol/L [facility] Creatinine [Mass/Vol] 0.62 mg/dL 0.50 - 1.20 mg/dL [facility] GFR/1.73 sq M.predicted CKD-EPI (S/P/Bld) [Vol rate/Area] 86 - PINF [facility] Comment on above: Reported eGFR is bas ed on the CKD-EPI 2020 equation using creatinine, age, and sex. Glucose [Mass/Vol] 140 mg/dL High 70 - 99 mg/dL [facility] Interpretation and review of laboratory results Abnormal [facility] Osmolality Calc [Osmolality] 295 [facility] Potassium [Moles/Vol] 4.4 mmol/L 3.5 - 5.0 mmol/L [facility] Sodium [Moles/Vol] 138 mmol/L 135 - 145 mmol/L [facility] Urea nitrogen [Mass/Vol] 21 mg/dL 7 - 25 mg/dL [facility] Urea nitrogen/Creatinine [Mass ratio] 34 mg/mg [facility] CONTINUOUS CARDIAC MONITORIN G STRIPon 04-24-2022 [facility] GLUCOSE POCon 04-24-2022 Glucose [Mass/Vol] 180 mg/dL High 70 - 99 mg/dL [facility] Interpretation and review of laboratory results Abnormal [facility] POC Sample Type CAPBL [facility] Test performed at address of the patient encounter. [facility] Glucose [Mass/Vol] 164 mg/dL High 70 - 99 mg/dL [facility] Interpretation and review of laboratory results Abnormal [facility] POC Sample Type CAPBL [facility] Test performed at address of the patient encounter. [facility] Glucose [Mass/Vol] 143 mg/dL High 70 - 99 mg/dL [facility] Interpretation and review of laboratory results Abnormal [facility] POC Sample Type [facility] Test performed at address of the patient encounter. [facility] Glucose [Mass/Vol] 133 mg/dL High 70 - 99 mg/dL [facility] Interpretation and review of laboratory results Abnormal [facility] POC Sample [facility] Test performed at address of the patient encounter. [facility] TYPE AND SCREENon 04-24-2022 ABO/RH(D) TYPE Positive Normal [facility] Comment on above: Performed By: #### X M #### [facility] (DEFAULT) [address] [address] ABO/RH(D) TYPE Positive [facility] CBC,PLATELETSon 04-23-2022 Hematocrit (Bld) [Volume fraction] 33.9 % Low 34.9-44.3 [facility] Comment on above: Performed By: #### L ABHSTI1 #### [facility] (DEFAULT) [address] [address] Hemoglobin (Bld) [Mass/Vol] 11.3 g/dL Low 11.4-15.2 [facility] Comment on above: Performed By: #### L ABHSTI1 #### [facility] (DEFAULT) [address] [address] MCV (RBC) [Entitic vol] 87.1 fL Normal 79.6-97.7 [facility] Comment on above: Performed By: #### L ABHSTI1 #### [facility] (DEFAULT) [address] [address] Mean Cell Hgb 29.0 pg Normal 25.9-33.9 [facility] Comment on above: Performed By: #### L ABHSTI1 #### [facility] (DEFAULT) [address] [address] Mean Cell Hgb Conc 33.3 g/dL Normal 31.4-35.9 [facility] Comment on above: Performed By: #### L ABHSTI1 #### [facility] (DEFAULT) [address] [address] Platelet mean volume (Bld) [Entitic vol] 10.1 fL Normal 8.5-12.2 [facility] Comment on above: Performed By: #### L ABHSTI1 #### U [facility] (DEFAULT) [address] [address] Platelets (Bld) [#/Vol] 224 10*3/uL Normal 150-393 [facility] Comment on above: Performed By: #### L ABHSTI1 #### U [facility] (DEFAULT) [address] [address] RBC (Bld) [#/Vol] 3.89 10*6/uL Low 3.91-5.04 [facility] Comment on above: Performed By: #### L ABHSTI1 #### U [facility] (DEFAULT) [address] [address] RBC Distribution 13.2 % Normal 10.8-14.9 [facility] Comment on above: Performed By: #### L ABHSTI1 #### [facility] (DEFAULT) [address] [place], [place] [address] WBC (Bld) [#/Vol] 6.07 10*3/uL Normal 3.99-11.19 [facility] Comment on above: Performed By: #### L [email or web address] #### [facility] (DEFAULT) [address] [place] [address] Erythrocyte distribution width (RBC) [Ratio] 13.2 % 10.8 - 14.9 % [facility] Hematocrit (Bld) [Volume fraction] 33.9 % Low 34.9 - 44.3 % [facility] Hemoglobin (Bld) [Mass/Vol] 11.3 g/dL Low 11.4 - 15.2 g/dL [facility] Interpretation and review of laboratory results Abnormal [facility] MCH (RBC) [Entitic mass] 29.0 pg 25.9 - 33.9 pg [facility] MCHC (RBC) [Mass/Vol] 33.3 g/dL 31.4 - 35.9 g/dL [facility] MCV (RBC) [Entitic vol] 87.1 fL 79.6 - 97.7 fL [facility] Platelet mean volume (Bld) [Entitic vol] 10.1 fL 8.5 - 12.2 fL [facility] Platelets (Bld) [#/Vol] 224 10*3/uL 150 - 393 K/uL [facility] RBC (Bld) [#/Vol] 3.89 10*6/uL Low [facility] WBC (Bld) [#/Vol] 6.07 10*3/uL 3.99 - 11. 19 K/uL [facility] CHEM 7 (LYTES,BUN,CREA,GLUC) on 04-23-2022 Anion gap [Moles/Vol] 15 mmol/L Normal 7-17 [facility] Comment on above: Performed By: #### Y METN #### [facility] (DEFAULT) [address] [place] [address] Chloride [Moles/Vol] 106 mmol/L Normal 98-108 [facility] Comment on above: Performed By: #### Y METN #### [facility] (DEFAULT) [address] [address] CO2 [Moles/Vol] 24 mmol/L Normal 21-31 [facility] Comment on above: Performed By: #### Y METN #### [facility] (DEFAULT) [address] [place] [address] Creatinine [Mass/Vol] 0.57 mg/dL Normal 0.50-1.20 [facility] Comment on above: Performed By: #### Y METN #### [facility] (DEFAULT) [address] [address] GFR/1.73 sq M.predicted among non-blacks MDRD (S/P/Bld) [Vol rate/Area] 88 mL/min/{1.73_m2} Normal >=60 [facility] Comment on above: Result Comment: Repo rted eGFR is based on the CKD-EPI 2020 equation using creatinine, age, and sex. Performed By: #### Y METN #### [facility] (DEFAULT) [address] [address] Glucose [Mass/Vol] 146 mg/dL High 70-99 [facility] Comment on above: Performed By: #### Y METN #### [facility] (DEFAULT) [address] [place] [address] Osmolality [Osmolality] 300 mosm/kg Normal 278-305 [facility] Comment on above: Performed By: #### Y METN #### [facility] (DEFAULT) [address] [address] Potassium [Moles/Vol] 4.7 mmol/L Normal 3.5-5.0 [facility] Comment on above: Performed By: #### Y METN #### [facility] (DEFAULT) [address] [place] [address] Sodium [Moles/Vol] 140 mmol/L Normal 135-145 [facility] Comment on above: Performed By: #### Y METN #### [facility] (DEFAULT) [address] [place] [address] Urea nitrogen [Mass/Vol] 20 mg/dL Normal 7-25 [facility] Comment on above: Performed By: #### Y METN #### [facility] (DEFAULT) [address] [place] [address] Urea nitrogen/Creatinine [Mass ratio] 35 mg/mg Normal [facility] Comment on above: Performed By: #### Y METN #### [facility] (DEFAULT) [address] [place] [address] Anion gap [Moles/Vol] 15 mmol/L 7 - 17 mmol/L [facility] Chloride [Moles/Vol] 106 mmol/L 98 - 10 8 mmol/L [facility] CO2 [Moles/Vol] 24 mmol/L 21 - 31 mmol/L [facility] Creatinine [Mass/Vol] 0.57 mg/dL 0.50 - 1.20 mg/dL [facility] GFR/1.73 sq M.predicted CKD-EPI (S/P/Bld) [Vol rate/Area] 88 - PINF [facility] Comment on above: Reported eGFR is bas ed on the CKD-EPI 2020 equation using creatinine, age, and sex. Glucose [Mass/Vol] 146 mg/dL High 70 - 99 mg/dL [facility] Interpretation and review of laboratory results Abnormal [facility] Osmolality Calc [Osmolality] 300 [facility] Potassium [Moles/Vol] 4.7 mmol/L 3.5 - 5.0 mmol/L [facility] Sodium [Moles/Vol] 140 mmol/L 135 - 145 mmol/L [facility] Urea nitrogen [Mass/Vol] 20 mg/dL 7 - 25 mg/dL [facility] Urea nitrogen/Creatinine [Mass ratio] 35 [facility] MONITORIN G STRIPon 04-23-2022 [facility] GLUCOSE POCon 04-23-2022 Glucose [Mass/Vol] 144 mg/dL High 70 - 99 mg/dL [facility] Interpretation and review of laboratory results Abnormal [facility] POC Sample Type CAPBL [facility] Test performed at address of the patient encounter. [facility] Glucose [Mass/Vol] 89 mg/dL 70 - 99 mg/dL [facility] POC Sample Type CAPBL [facility] Test performed at address of the patient encounter. [facility] Glucose [Mass/Vol] 167 mg/dL High 70 - 99 mg/dL [facility] Interpretation and review of laboratory results Abnormal [facility] POC Sample Type CAPBL [facility] Test performed at address of the patient encounter. [facility] Glucose [Mass/Vol] 149 mg/dL High 70 - 99 mg/dL [facility] Interpretation and review of laboratory results Abnormal [facility] POC Sample Type VENO [facility] Test performed at address of the patient encounter. [facility] METANEPHRINES, PLASMAon 03-31 Metanephrine Free [Moles/Vol] <0.20 NINF - 0.50 nmol/L [facility] Comment on above: ADDITIONAL INFORMATION This test was developed and its performance characteristics determined by [facility] in a manner consistent with CLIA requirements. This test has not been cleared or approved by the U.S. Food and Drug Administration. Test Performed by: [facility] - [address] [address] Visitor Services Information Assistant: Sha Goode M.D. Ph.D.; CLIA# [id number] Normetanephrine Free [Moles/Vol] 0.57 nmol/L NINF - 0.90 nmol/L [facility] CBC,PLATELETSon 04-22-2022 Hematocrit (Bld) [Volume fraction] 31.2 % Low 34.9-44.3 [facility] Comment on above: Performed By: #### T YPEC #### [facility] (DEFAULT) [address] [address] Hemoglobin (Bld) [Mass/Vol] 10.4 g/dL Low 11.4-15.2 [facility] Comment on above: Performed By: #### T YPEC #### [facility] (DEFAULT) [address] [address] MCV (RBC) [Entitic vol] 86.2 fL Normal 79.6-97.7 [facility] Comment on above: Performed By: #### T YPEC #### [facility] (DEFAULT) [address] [address] Mean Cell Hgb 28.7 pg Normal 25.9-33.9 [facility] Comment on above: Performed By: #### T YPEC #### [facility] (DEFAULT) [address] [address] Mean Cell Hgb Conc 33.3 g/dL Normal 31.4-35.9 [facility] Comment on above: Performed By: #### T YPEC #### [facility] (DEFAULT) [address] [address] Platelet mean volume (Bld) [Entitic vol] 9.9 fL Normal 8.5-12.2 [facility] Comment on above: Performed By: #### T YPEC #### [facility] (DEFAULT) [address] [address] Platelets (Bld) [#/Vol] 198 10*3/uL Normal 150-393 [facility] Comment on above: Performed By: #### T YPEC #### [facility] (DEFAULT) [address] [place] [address] RBC (Bld) [#/Vol] 3.62 10*6/uL Low 3.91-5.04 [facility] Comment on above: Performed By: #### T YPEC #### [facility] (DEFAULT) [address] [place] [address] RBC Distribution 13.2 % Normal 10.8-14.9 [facility] Comment on above: Performed By: #### T YPEC #### [facility] (DEFAULT) [address] [place] [address] WBC (Bld) [#/Vol] 6.19 10*3/uL Normal 3.99-11.19 [facility] Comment on above: Performed By: #### T YPEC #### [facility] (DEFAULT) [address] [place] [address] Erythrocyte distribution width (RBC) [Ratio] 13.2 % 10.8 - 14.9 % [facility] Hematocrit (Bld) [Volume fraction] 31.2 % Low 34.9 - 44.3 % [facility] Hemoglobin (Bld) [Mass/Vol] 10.4 g/dL Low 11.4 - 15.2 g/dL [facility] Interpretation and review of laboratory results Abnormal [facility] MCH (RBC) [Entitic mass] 28.7 pg 25.9 - 33.9 pg [facility] MCHC (RBC) [Mass/Vol] 33.3 g/dL 31.4 - 35.9 g/dL [facility] MCV (RBC) [Entitic vol] 86.2 fL 79.6 - 97.7 fL [facility] Platelet mean volume (Bld) [Entitic vol] 9.9 fL 8.5 - 12.2 fL [facility] Platelets (Bld) [#/Vol] 198 10*3/uL 150 - 393 K/uL [facility] RBC (Bld) [#/Vol] 3.62 10*6/uL Low [facility] WBC (Bld) [#/Vol] 6.19 10*3/uL 3.99 - 11. 19 K/uL [facility] CHEM 7 (LYTES,BUN,CREA,GLUC) on 04-22-2022 Anion gap [Moles/Vol] 12 mmol/L Normal 7-17 [facility] Comment on above: Performed By: #### T YPEC #### [facility] (DEFAULT) [address] [place] [address] Chloride [Moles/Vol] 104 mmol/L Normal 98-108 [facility] Comment on above: Performed By: #### T YPEC #### [facility] (DEFAULT) [address] [place] [address] CO2 [Moles/Vol] 26 mmol/L Normal 21-31 [facility] Comment on above: Performed By: #### T YPEC #### [facility] (DEFAULT) [address] [place] [address] Creatinine [Mass/Vol] 0.55 mg/dL Normal 0.50-1.20 [facility] Comment on above: Performed By: #### T YPEC #### [facility] (DEFAULT) [address] [place] [address] GFR/1.73 sq M.predicted among non-blacks MDRD (S/P/Bld) [Vol rate/Area] 89 mL/min/{1.73_m2} Normal >=60 [facility] Comment on above: Result Comment: Repo rted eGFR is based on the CKD-EPI 2020 equation using creatinine, age, and sex. Performed By: #### T YPEC #### [facility] (DEFAULT) [address] [place] [address] Glucose [Mass/Vol] 149 mg/dL High 70-99 [facility] Comment on above: Performed By: #### T YPEC #### [facility] (DEFAULT) [address] [place] [address] Osmolality [Osmolality] 293 mosm/kg Normal 278-305 [facility] Comment on above: Performed By: #### T YPEC #### [facility] (DEFAULT) [address] [place] [address] Potassium [Moles/Vol] 4.8 mmol/L Normal 3.5-5.0 [facility] Comment on above: Performed By: #### T YPEC #### [facility] (DEFAULT) [address] [place] [address] Sodium [Moles/Vol] 137 mmol/L Normal 135-145 [facility] Comment on above: Performed By: #### T YPEC #### [facility] (DEFAULT) [address] [place] [address] Urea nitrogen [Mass/Vol] 16 mg/dL Normal 7-25 [facility] Comment on above: Performed By: #### T YPEC #### [facility] (DEFAULT) [address] [place] [address] Urea nitrogen/Creatinine [Mass ratio] 29 mg/mg Normal [facility] Comment on above: Performed By: #### T YPEC #### [facility] (DEFAULT) [address] [place] [address] Anion gap [Moles/Vol] 12 mmol/L 7 - 17 mmol/L [facility] Chloride [Moles/Vol] 104 mmol/L 98 - 10 8 mmol/L [facility] CO2 [Moles/Vol] 26 mmol/L 21 - 31 mmol/L [facility] Creatinine [Mass/Vol] 0.55 mg/dL 0.50 - 1.20 mg/dL [facility] GFR/1.73 sq M.predicted CKD-EPI (S/P/Bld) [Vol rate/Area] 89 - PINF [facility] Comment on above: Reported eGFR is bas ed on the CKD-EPI 2020 equation using creatinine, age, and sex. Glucose [Mass/Vol] 149 mg/dL High 70 - 99 mg/dL [facility] Interpretation and review of laboratory results Abnormal [facility] Osmolality Calc [Osmolality] 293 [facility] Potassium [Moles/Vol] 4.8 mmol/L 3.5 - 5.0 mmol/L [facility] Sodium [Moles/Vol] 137 mmol/L 135 - 145 mmol/L [facility] Urea nitrogen [Mass/Vol] 16 mg/dL 7 - 25 mg/dL [facility] Urea nitrogen/Creatinine [Mass ratio] 29 mg/mg [facility] GLUCOSE POCon 04-22-2022 Glucose [Mass/Vol] 219 mg/dL High 70 - 99 mg/dL [facility] Interpretation and review of laboratory results Abnormal [facility] POC Sample Type CAPBL [facility] Test performed at address of the patient encounter. [facility] Glucose [Mass/Vol] 145 mg/dL High 70 - 99 mg/dL [facility] Interpretation and review of laboratory results Abnormal [facility] POC Sample Type CAPBL [facility] Test performed at address of the patient encounter. [facility] Glucose [Mass/Vol] 211 mg/dL High 70 - 99 mg/dL [facility] Interpretation and review of laboratory results Abnormal [facility] POC Sample Type CAPBL [facility] Test performed at address of the patient encounter. [facility] Glucose [Mass/Vol] 136 mg/dL High 70 - 99 mg/dL [facility] Interpretation and review of laboratory results Abnormal [facility] POC Sample Type CAPBL [facility] Test performed at address of the patient encounter. [facility] INVASIVE CARDIOVASCULAR PROC EDUREon 04-22-2022 INVASIVE CARDIOVASCULAR [...] was unable to be traversed with a [place] XT. A Whisper wire was successfully advanced [...] was unable to be traversed with a [place] XT. A Whisper wire was successfully advanced [...] Procedure Ordering Physician: ELE SAAVEDRA Order #: [id number] Study Date: 04/01/2022 Patient Information Name MRN Description Finesse Prather [id number] y.o. female Location Name Address [facility] [address] [facility] [address] Physicians Panel Physicians Referring Physician Case Authorizing Physician Eder Jaime Jr., MD (Primary) MD Ele Chapman MD Alexander J Meyer, MD (Fellow) CC Referring Recipient Method Contact Information [facility] MD In Basket ? Murphy Burton MD Fax ? Procedures IVUS CORONARY STENT-CORONARY LAD Indications Coronary artery disease involving [place] coronary artery of [place] heart with unstable angina pectoris [I25.110 (ICD-10-CM)] NSTEMI (non-ST elevated myoca (more content not included)... Normal [facility] METANEPHRINES,24HR URINEon 0 1--2022 INTERVAL: 24 h Normal [facility] Comment on above: Order Comment: Prese rvative, acetic acid, obtained from lab Performed By: #### Y METN #### [facility] (DEFAULT) [address] [place] [address] METANEPHRINE, URINE 87 mcg/24 h Normal [facility] Comment on above: Order Comment: Prese rvative, acetic acid, obtained from lab Result Comment: REFERENCE VALUE 30-180 (Normotensive) <400 (Hypertensive) Performed By: #### Y METN #### [facility] (DEFAULT) [address] [place] [address] METANEPHRINES, FRACT, 24H URINE DNR Normal [facility] Comment on above: Order Comment: Prese rvative, acetic acid, obtained from lab Performed By: #### Y METN #### [facility] (DEFAULT) [address] [place] [address] METANEPHRINES, TOTAL, URINE 567 mcg/24 h Normal [facility] Comment on above: Order Comment: Prese rvative, acetic acid, obtained from lab Result Comment: REFERENCE VALUE 180-646 (Normotensive) <1300 (Hypertensive) Performed By: #### Y METN #### [facility] (DEFAULT) [address] [address] NORMETANEPHRINE, URINE 480 mcg/24 h Normal [facility] Comment on above: Order Comment: Prese rvative, acetic acid, obtained from lab Result Comment: REFERENCE VALUE 148-560 (Normotensive) <900 (Hypertensive) Performed By: #### Y METN #### [facility] (DEFAULT) [address] [place] [address] VOLUME: 861 mL Normal [facility] Comment on above: Order Comment: Prese rvative, acetic acid, obtained from lab Result Comment: ADDITIONAL INFORMATION This test was developed and its performance characteristics determined by [facility] in a manner consistent with CLIA requirements. This test has not been cleared or approved by the U.S. Food and Drug Administration. Test Performed by: [facility] [address] [place] [address] Visitor Services Information Assistant: Sha Goode M.D. Ph.D.; CLIA# [id number] Performed By: #### Y METN #### [facility] (DEFAULT) [address] [place] [address] US.doppler Renal vesselsOrde red By: Staci Bonilla on 04-22-2022 [facility] Work Phone: US.doppler Renal vesselson 0 04-22-2022 Radiology Study observation (narrative) [facility] CBC,PLATELETSon 04-21-2022 Hematocrit (Bld) [Volume fraction] 31.6 % Low 34.9-44.3 [facility] Comment on above: Performed By: #### Y METN #### [facility] (DEFAULT) [address] [place] [address] Hemoglobin (Bld) [Mass/Vol] 10.6 g/dL Low 11.4-15.2 [facility] Comment on above: Performed By: #### Y METN #### [facility] (DEFAULT) [address] [place] [address] MCV (RBC) [Entitic vol] 86.3 fL Normal 79.6-97.7 [facility] Comment on above: Performed By: #### Y METN #### [facility] (DEFAULT) [address] [place] [address] Mean Cell Hgb 29.0 pg Normal 25.9-33.9 [facility] Comment on above: Performed By: #### Y METN #### [facility] (DEFAULT) [address] [place] [address] Mean Cell Hgb Conc 33.5 g/dL Normal 31.4-35.9 [facility] Comment on above: Performed By: #### Y METN #### [facility] (DEFAULT) [address] [place] [address] Platelet mean volume (Bld) [Entitic vol] 10.2 fL Normal 8.5-12.2 [facility] Comment on above: Performed By: #### Y METN #### [facility] (DEFAULT) [address] [address] Platelets (Bld) [#/Vol] 203 10*3/uL Normal 150-393 [facility] Comment on above: Performed By: #### Y METN #### [facility] (DEFAULT) [address] [place] [address] RBC (Bld) [#/Vol] 3.66 10*6/uL Low 3.91-5.04 [facility] Comment on above: Performed By: #### Y METN #### [facility] (DEFAULT) [address] [place] [address] RBC Distribution 13.3 % Normal 10.8-14.9 [facility] Comment on above: Performed By: #### Y METN #### [facility] (DEFAULT) [address] [place] [address] WBC (Bld) [#/Vol] 6.15 10*3/uL Normal 3.99-11.19 [facility] Comment on above: Performed By: #### Y METN #### [facility] (DEFAULT) [address] [place] [address] Erythrocyte distribution width (RBC) [Ratio] 13.3 % 10.8 - 14.9 % [facility] Hematocrit (Bld) [Volume fraction] 31.6 % Low 34.9 - 44.3 % [facility] Hemoglobin (Bld) [Mass/Vol] 10.6 g/dL Low 11.4 - 15.2 g/dL [facility] Interpretation and review of laboratory results Abnormal [facility] MCH (RBC) [Entitic mass] 29.0 pg 25.9 - 33.9 pg [facility] MCHC (RBC) [Mass/Vol] 33.5 g/dL 31.4 - 35.9 g/dL [facility] MCV (RBC) [Entitic vol] 86.3 fL 79.6 - 97.7 fL [facility] Platelet mean volume (Bld) [Entitic vol] 10.2 fL 8.5 - 12.2 fL [facility] Platelets (Bld) [#/Vol] 203 10*3/uL 150 - 393 K/uL [facility] RBC (Bld) [#/Vol] 3.66 10*6/uL Low [facility] WBC (Bld) [#/Vol] 6.15 10*3/uL 3.99 - 11. 19 K/uL [facility] CHEM 7 (LYTES,BUN,CREA,GLUC) on 04-21-2022 Anion gap [Moles/Vol] 12 mmol/L Normal 7-17 [facility] Comment on above: Performed By: #### C HM7 #### [facility] (DEFAULT) [address] [place] [address] Chloride [Moles/Vol] 107 mmol/L Normal 98-108 [facility] Comment on above: Performed By: #### C HM7 #### [facility] (DEFAULT) [address] [place] [address] CO2 [Moles/Vol] 25 mmol/L Normal 21-31 [facility] Comment on above: Performed By: #### C HM7 #### [facility] (DEFAULT) [address] [place] [address] Creatinine [Mass/Vol] 0.63 mg/dL Normal 0.50-1.20 [facility] Comment on above: Performed By: #### C HM7 #### [facility] (DEFAULT) [address] [place] [address] GFR/1.73 sq M.predicted among non-blacks MDRD (S/P/Bld) [Vol rate/Area] 86 mL/min/{1.73_m2} Normal >=60 [facility] Comment on above: Result Comment: Repo rted eGFR is based on the CKD-EPI 2020 equation using creatinine, age, and sex. Performed By: #### C HM7 #### [facility] (DEFAULT) [address] [place] [address] Glucose [Mass/Vol] 140 mg/dL High 70-99 [facility] Comment on above: Performed By: #### C HM7 #### [facility] (DEFAULT) [address] [place] [address] Osmolality [Osmolality] 299 mosm/kg Normal 278-305 [facility] Comment on above: Performed By: #### C HM7 #### [facility] (DEFAULT) [address] [place] [address] Potassium [Moles/Vol] 4.0 mmol/L Normal 3.5-5.0 [facility] Comment on above: Performed By: #### C HM7 #### [facility] (DEFAULT) [address] [place] [address] Sodium [Moles/Vol] 140 mmol/L Normal 135-145 [facility] Comment on above: Performed By: #### C HM7 #### [facility] (DEFAULT) [address] [place] [address]698 Urea nitrogen [Mass/Vol] 22 mg/dL Normal 7-25 [facility] Comment on above: Performed By: #### C HM7 #### [facility] (DEFAULT) [address] [place] [address] Urea nitrogen/Creatinine [Mass ratio] 35 mg/mg Normal [facility] Comment on above: Performed By: #### C HM7 #### [facility] (DEFAULT) [address] [place] [address] Anion gap [Moles/Vol] 12 mmol/L 7 - 17 mmol/L [facility] Chloride [Moles/Vol] 107 mmol/L 98 - 10 8 mmol/L [facility] CO2 [Moles/Vol] 25 mmol/L 21 - 31 mmol/L [facility] Creatinine [Mass/Vol] 0.63 mg/dL 0.50 - 1.20 mg/dL [facility] GFR/1.73 sq M.predicted CKD-EPI (S/P/Bld) [Vol rate/Area] 86 - PINF [facility] Comment on above: Reported eGFR is bas ed on the CKD-EPI 2020 equation using creatinine, age, and sex. Glucose [Mass/Vol] 140 mg/dL High 70 - 99 mg/dL [facility] Interpretation and review of laboratory results Abnormal [facility] Osmolality Calc [O[facility]olality] [facility] Potassium [Moles/Vol] 4.0 mmol/L 3.5 - 5.0 mmol/L [facility] Sodium [Moles/Vol] 140 mmol/L 135 - 145 mmol/L [facility] Urea nitrogen [Mass/Vol] 22 mg/dL 7 - 25 mg/dL [facility] Urea nitrogen/Creatinine [Mass ratio] 35 mg/mg [facility] CONTINUOUS CARDIAC MONITORIN G STRIPon 04-21-2022 [facility] GLUCOSE POCon 04-21-2022 Glucose [Mass/Vol] 121 mg/dL High 70 - 99 mg/dL [facility] Interpretation and review of laboratory results Abnormal [facility] POC Sample Type CAPBL [facility] Test performed at address of the patient encounter. [facility] Glucose [Mass/Vol] 119 mg/dL High 70 - 99 mg/dL [facility] Interpretation and review of laboratory results Abnormal [facility] POC Sample Type CAPBL [facility] Test performed at address of the patient encounter. [facility] Glucose [Mass/Vol] 177 mg/dL High 70 - 99 mg/dL [facility] Interpretation and review of laboratory results Abnormal [facility] POC Sample Type CAPBL [facility] Test performed at address of the patient encounter. [facility] Glucose [Mass/Vol] 147 mg/dL High 70 - 99 mg/dL [facility] Interpretation and review of laboratory results Abnormal [facility] POC Sample Type CAPBL [facility] Test performed at address of the patient encounter. [facility] HIGH SENSITIVITY TROPONIN I - SINGLE ORDERon 04-21-2022 hs-Troponin I 392 ng/L High <34 [facility] Comment on above: Order Comment: Acute Coronary Syndrome (ACS): Initial Evaluation and Management:[email or web address]/Documents/Guide lines/Acute%20Coronary%20Syndrome.pdf#search=troponin Result Comment: Triston estive of myocardial injury Performed By: #### C HM7 #### [facility] (DEFAULT) [address] [address] HIGH SENSITIVITY TROPONIN I - SINGLE ORDEROrdered By: Bob Montalvo on 04-21-2022 Interpretation and review of laboratory results Abnormal [facility] Troponin I.cardiac DL <= 0.01 ng/mL [Mass/Vol] 392 ng/L High NINF - 34 ng/L [facility] Comment on above: Suggestive of myocar dial injury [facility] METANEPHRINES, PLASMAon 03-31 METANEPHRINE, FREE, PLASMA <0.20 Normal <0.50 [facility] Comment on above: Result Comment: ADDITIONAL INFORMATION This test was developed and its performance characteristics determined by [facility] in a manner consistent with CLIA requirements. This test has not been cleared or approved by the U.S. Food and Drug Administration. Test Performed by: [facility] [id number] Visitor Services Information Assistant: Sha Goode M.D. Ph.D.; CLIA# [id number] Performed By: #### C HM6 #### [facility] (DEFAULT) [address] [place] [address] NORMETANEPHRINE, FREE 0.57 nmol/L Normal <0.90 [facility] Comment on above: Performed By: #### C HM6 #### [facility] (DEFAULT) [address] [address] B-TYPE NATRIURETIC PEPTIDE ( BRAIN)on 04-20-2022 Interpretation and review of laboratory results Abnormal [facility] Natriuretic peptide B (Bld) [Mass/Vol] 426 pg/mL High 0 - 100 pg/mL [facility] Natriuretic peptide B (Bld) [Mass/Vol] 426 pg/mL High 0-100 [facility] Comment on above: Performed By: #### S CRSB #### [facility] (DEFAULT) [address] [place] [address] CALCIUMon 04-20-2022 Calcium [Mass/Vol] 8.8 mg/dL Normal 8.6-10.5 [facility] Comment on above: Performed By: #### C HM7 #### [facility] (DEFAULT) [address] [place] [address]686 Calcium [Mass/Vol] 8.8 mg/dL 8.6 - 10. 5 mg/dL [facility] CBC AND ELECTRONIC DIFFon Abs Baso Auto < Normal 0.00-0.15 [facility] Comment on above: Performed By: #### L AB980 ####[facility] (DEFAULT)[address] [place] [address] Basophils/100 WBC (Bld) 0.5 % Normal [facility] Comment on above: Performed By: #### L AB980 ####[facility] (DEFAULT)[address] [place] [address] DIFF STATUS Electronic Differential Normal [facility] Comment on above: Performed By: #### L AB980 ####[facility] (DEFAULT)[address] [place] [address] Eosinophils (Bld) [#/Vol] 0.09 10*3/uL Normal 0.00-0.42 [facility] Comment on above: Performed By: #### L AB980 ####[facility] (DEFAULT)[address] [place] [address] Eosinophils/100 WBC (Bld) 1.4 % Normal [facility] Comment on above: Performed By: #### L AB980 ####[facility] (DEFAULT)[address] [facility] [place] [address] Hematocrit (Bld) [Volume fraction] 35.3 % Normal 34.9-44.3 [facility] Comment on above: Performed By: #### L AB980 ####[facility] (DEFAULT)[address] [facility] [place] [address] Hemoglobin (Bld) [Mass/Vol] 12.0 g/dL Normal 11.4-15.2 [facility] Comment on above: Performed By: #### L AB980 ####[facility] (DEFAULT)[address] [place] [address] Immature Grans % 0.5 % Normal [facility] Comment on above: Performed By: #### L AB980 ####[facility] (DEFAULT)[address] [place] [address] Immature Grans Absolute < Normal <=0.08 [facility] Comment on above: Performed By: #### L AB980 ####[facility] (DEFAULT)[address] [place] [address] Lymphocytes (Bld) [#/Vol] 1.17 10*3/uL Normal 1.16-3.51 [facility] Comment on above: Performed By: #### L AB980 ####[facility] (DEFAULT)[address] [place] [address] Lymphocytes/100 WBC (Bld) 17.9 % Normal [facility] Comment on above: Performed By: #### L AB980 ####[facility] (DEFAULT)[address] [place] [address] MCV (RBC) [Entitic vol] 85.3 fL Normal 79.6-97.7 [facility] Comment on above: Performed By: #### L AB980 ####[facility] (DEFAULT)[address] [facility] [place] [address] Mean Cell Hgb 29.0 pg Normal 25.9-33.9 [facility] Comment on above: Performed By: #### L AB980 ####[facility] (DEFAULT)[address] [place] [address], [place] [address] Mean Cell Hgb Conc 34.0 g/dL Normal 31.4-35.9 [facility] Comment on above: Performed By: #### L AB980 ####[facility] (DEFAULT)[address] [place] [address], [place] [address] Monocytes (Bld) [#/Vol] 0.70 10*3/uL Normal 0.22-0.87 [facility] Comment on above: Performed By: #### L AB980 ####[facility] (DEFAULT)[address] [place] [address], [place] [address] Monocytes/100 WBC (Bld) 10.7 % Normal [facility] Comment on above: Performed By: #### L AB980 ####[facility] (DEFAULT)[address] [place] [address], [place] [address] Nucleated RBC 0.0 /100 WBC Normal <=0.2 [facility] Comment on above: Performed By: #### L AB980 ####[facility] (DEFAULT)[address] [facility] [place] [address] Platelet mean volume (Bld) [Entitic vol] 10.0 fL Normal 8.5-12.2 [facility] Comment on above: Performed By: #### L AB980 ####[facility] (DEFAULT)[address] [place] [address], [place] [address] Platelets (Bld) [#/Vol] 202 10*3/uL Normal 150-393 [facility] Comment on above: Performed By: #### L AB980 ####[facility] (DEFAULT)[address] [facility] [place] [address] RBC (Bld) [#/Vol] 4.14 10*6/uL Normal 3.91-5.04 [facility] Comment on above: Performed By: #### L AB980 ####[facility] (DEFAULT)[address] [place] [address] RBC Distribution 13.2 % Normal 10.8-14.9 [facility] Comment on above: Performed By: #### L AB980 ####[facility] (DEFAULT)[address] [facility] [place] [address] Segs + Bands Auto 69.0 % Normal [facility] Comment on above: Performed By: #### L AB980 ####[facility] (DEFAULT)[address] [place] [address] Segs + Bands,Absolute Auto 4.50 K/uL Normal 1.64-7.28 [facility] Comment on above: Performed By: #### L AB980 ####[facility] (DEFAULT)[address] [place] [address] WBC (Bld) [#/Vol] 6.52 10*3/uL Normal 3.99-11.19 [facility] Comment on above: Performed By: #### L AB980 ####[facility] (DEFAULT)[address] [place] [address] Basophils (Bld) [#/Vol] K/uL 0.00 - 0.15 K/uL [facility] Basophils/100 WBC (Bld) 0.5 % [facility] Differential cell count method Nom (Bld) Electronic Differential [facility] Eosinophils (Bld) [#/Vol] 0.09 10*3/uL 0.00 - 0.42 K/uL [facility] Eosinophils/100 WBC (Bld) 1.4 % [facility] Erythrocyte distribution width (RBC) [Ratio] 13.2 % 10.8 - 14.9 % [facility] Hematocrit (Bld) [Volume fraction] 35.3 % 34.9 - 44.3 % [facility] Hemoglobin (Bld) [Mass/Vol] 12.0 g/dL 11.4 - 15.2 g/dL [facility] Immature granulocytes (Bld) [#/Vol] K/uL NINF - 0.08 K/uL [facility] Immature granulocytes/100 WBC (Bld) 0.5 % [facility] Lymphocytes (Bld) [#/Vol] 1.17 10*3/uL 1.16 - 3.51 K/uL [facility] Lymphocytes/100 WBC (Bld) 17.9 % [facility] MCH (RBC) [Entitic mass] 29.0 pg 25.9 - 33.9 pg [facility] MCHC (RBC) [Mass/Vol] 34.0 g/dL 31.4 - 35.9 g/dL [facility] MCV (RBC) [Entitic vol] 85.3 fL 79.6 - 97.7 fL [facility] Monocytes (Bld) [#/Vol] 0.70 10*3/uL 0.22 - 0.87 K/uL [facility] Monocytes/100 WBC (Bld) 10.7 % [facility] Neutrophils (Bld) [#/Vol] 4.50 10*3/uL 1.64 - 7.28 K/uL [facility] Nucleated RBC/100 WBC (Bld) [Ratio] 0.0 % [facility] Platelet mean volume (Bld) [Entitic vol] 10.0 fL 8.5 - 12.2 fL [facility] Platelets (Bld) [#/Vol] 202 10*3/uL 150 - 393 K/uL [facility] RBC (Bld) [#/Vol] 4.14 10*6/uL [facility] Segmented neutrophils/100 WBC (Bld) 69.0 % [facility] WBC (Bld) [#/Vol] 6.52 10*3/uL 3.99 - 11. 19 K/uL [facility] CHEM 7 (LYTES,BUN,CREA,GLUC) on 04-20-2022 Anion gap [Moles/Vol] 15 mmol/L Normal 7-17 [facility] Comment on above: Performed By: #### C HM7 #### [facility] (DEFAULT) [address] [place] [address] Chloride [Moles/Vol] 103 mmol/L Normal 98-108 [facility] Comment on above: Performed By: #### C HM7 #### [facility] (DEFAULT) [address] [place] [address] CO2 [Moles/Vol] 23 mmol/L Normal 21-31 [facility] Comment on above: Performed By: #### C HM7 #### [facility] (DEFAULT) [address] [place] [address] Creatinine [Mass/Vol] 0.58 mg/dL Normal 0.50-1.20 [facility] Comment on above: Performed By: #### C HM7 #### [facility] (DEFAULT) [address] [place] [address] GFR/1.73 sq M.predicted among non-blacks MDRD (S/P/Bld) [Vol rate/Area] 88 mL/min/{1.73_m2} Normal >=60 [facility] Comment on above: Result Comment: Repo rted eGFR is based on the CKD-EPI 2020 equation using creatinine, age, and sex. Performed By: #### C HM7 #### [facility] (DEFAULT) [address] [place] [address] Glucose [Mass/Vol] 181 mg/dL High 70-99 [facility] Comment on above: Performed By: #### C HM7 #### [facility] (DEFAULT) [address] [place] [address] Osmolality [Osmolality] 293 mosm/kg Normal 278-305 [facility] Comment on above: Performed By: #### C HM7 #### [facility] (DEFAULT) [address] [place] [address] Potassium [Moles/Vol] 4.7 mmol/L Normal 3.5-5.0 [facility] Comment on above: Performed By: #### C HM7 #### [facility] (DEFAULT) [address] [place] [address] Sodium [Moles/Vol] 136 mmol/L Normal 135-145 [facility] Comment on above: Performed By: #### C HM7 #### [facility] (DEFAULT) [address] [place] [address] Urea nitrogen [Mass/Vol] 16 mg/dL Normal 7-25 [facility] Comment on above: Performed By: #### C HM7 #### [facility] (DEFAULT) [address] [place] [address] Urea nitrogen/Creatinine [Mass ratio] 28 mg/mg Normal [facility] Comment on above: Performed By: #### C HM7 #### [facility] (DEFAULT) [address] [place] [address] Anion gap [Moles/Vol] 15 mmol/L 7 - 17 mmol/L [facility] Chloride [Moles/Vol] 103 mmol/L 98 - 10 8 mmol/L [facility] CO2 [Moles/Vol] 23 mmol/L 21 - 31 mmol/L [facility] Creatinine [Mass/Vol] 0.58 mg/dL 0.50 - 1.20 mg/dL [facility] GFR/1.73 sq M.predicted CKD-EPI (S/P/Bld) [Vol rate/Area] 88 - PINF [facility] Comment on above: Reported eGFR is bas ed on the CKD-EPI 2020 equation using creatinine, age, and sex. Glucose [Mass/Vol] 181 mg/dL High 70 - 99 mg/dL [facility] Interpretation and review of laboratory results Abnormal [facility] Osmolality Calc [Osmolality] 293 [facility] Potassium [Moles/Vol] 4.7 mmol/L 3.5 - 5.0 mmol/L [facility] Sodium [Moles/Vol] 136 mmol/L 135 - 145 mmol/L [facility] Urea nitrogen [Mass/Vol] 16 mg/dL 7 - 25 mg/dL [facility] Urea nitrogen/Creatinine [Mass ratio] 28 mg/mg [facility] CONTINUOUS CARDIAC MONITORIN G STRIPon 04-20-2022 [facility] CONTINUOUS CARDIAC MONITORIN G STRIPOrdered By: Unassigned Pacs on 04-20-2022 [facility] Work Phone: GLUCOSE POCon 04-20-2022 Glucose [Mass/Vol] 207 mg/dL High 70 - 99 mg/dL [facility] Interpretation and review of laboratory results Abnormal [facility] POC Sample Type CAPBL [facility] Test performed at address of the patient encounter. [facility] Glucose [Mass/Vol] 237 mg/dL High 70 - 99 mg/dL [facility] Interpretation and review of laboratory results Abnormal [facility] POC Sample Type CAPBL [facility] Test performed at address of the patient encounter. [facility] Glucose [Mass/Vol] 134 mg/dL High 70 - 99 mg/dL [facility] Interpretation and review of laboratory results Abnormal [facility] POC Sample Type CAPBL [facility] Test performed at address of the patient encounter. [facility] Glucose [Mass/Vol] 220 mg/dL High 70 - 99 mg/dL [facility] Interpretation and review of laboratory results Abnormal [facility] POC Sample Type CAPBL [facility] Test performed at address of the patient encounter. [facility] Glucose [Mass/Vol] 134 mg/dL High 70 - 99 mg/dL [facility] Interpretation and review of laboratory results Abnormal [facility] POC Sample Type CAPBL [facility] Test performed at address of the patient encounter. [facility] HIGH SENSITIVITY TROPONIN I - SINGLE ORDERon 04-20-2022 hs-Troponin I 666 ng/L High <34 [facility] Comment on above: Order Comment: Acute Coronary Syndrome (ACS): Initial Evaluation and Management: [email or web address]/Guidelines/Acute %20Coronary%20Syndrome.pdf#search=troponin Result Comment: Sugg estive of myocardial injury Performed By: #### L ABHSTI1 #### [facility] (DEFAULT) [address] [place] [address] hs-Troponin I 547 ng/L High <34 [facility] Comment on above: Order Comment: Acute Coronary Syndrome (ACS): Initial Evaluation and Management: https://[email or web address]/Documents/Guidelines/Acute %20Coronary%20Syndrome.pdf#search=troponin Result Comment: Sugg estive of myocardial injury Performed By: #### L ABHSTI1 #### [facility] (DEFAULT) [address] [place] [address] hs-Troponin I 760 ng/L High <34 [facility] Comment on above: Order Comment: Acute Coronary Syndrome (ACS): Initial Evaluation and Management:https://[email or web address]/Documents/Guide lines/Acute%20Coronary%20Syndrome.pdf#search=troponin Result Comment: Sugg estive of myocardial injury Performed By: #### T YPEC #### [facility] (DEFAULT) [address] [place] [address]34 hs-Troponin I 638 ng/L High <34 [facility] Comment on above: Order Comment: Acute Coronary Syndrome (ACS): Initial Evaluation and Management:[email or web address]/Guide lines/Acute%20Coronary%20Syndrome.pdf#search=troponin Result Comment: Sugg estive of myocardial injury Performed By: #### X M #### [facility] (DEFAULT) [address] [place] [address] HIGH SENSITIVITY TROPONIN I - SINGLE ORDEROrdered By: Christie Arndt on 04-20-2022 Interpretation and review of laboratory results Abnormal [facility] Troponin I.cardiac DL <= 0.01 ng/mL [Mass/Vol] 666 ng/L High NINF - 34 ng/L [facility] Comment on above: Suggestive of myocar dial injury [facility] HIGH SENSITIVITY TROPONIN I - SINGLE ORDEROrdered By: Liliya Andujar on 04-20-2022 Interpretation and review of laboratory results Abnormal [facility] Troponin I.cardiac DL <= 0.01 ng/mL [Mass/Vol] 547 ng/L High NINF - 34 ng/L [facility] Comment on above: Suggestive of myocar dial injury [facility] HIGH SENSITIVITY TROPONIN I - SINGLE ORDEROrdered By: Patricia Trotter on 04-20-2022 Interpretation and review of laboratory results Abnormal [facility] Troponin I.cardiac DL <= 0.01 ng/mL [Mass/Vol] 760 ng/L High NINF - 34 ng/L [facility] Comment on above: Suggestive of myocar dial injury [facility] HIGH SENSITIVITY TROPONIN I - SINGLE ORDEROrdered By: Tamica Alarcon on 04-20-2022 Interpretation and review of laboratory results Abnormal [facility] Troponin I.cardiac DL <= 0.01 ng/mL [Mass/Vol] 638 ng/L High NINF - 34 ng/L [facility] Comment on above: Suggestive of myocar dial injury [facility] MAGNESIUMon 04-20-2022 Magnesium [Mass/Vol] 1.8 mg/dL Normal 1.6-2.6 [facility] Comment on above: Performed By: #### C HM7 #### [facility] (DEFAULT) [address] [place] [address] Magnesium [Mass/Vol] 1.8 mg/dL 1.6 - 2 .6 mg/dL [facility] No Panel Informationon 04-20 [facility] Interpretation and review of laboratory results Normal [facility] No Panel InformationOrdered By: Dr. Curry on 04-20-2022 Troponin I High Sensitivity 298 pg/mL 3.0-54.0 [facility] Comment on above: Critical Result(s) C alled at: 00:59:39 04/20/2022 by: CLYDE DAVISON to JESSICA MACIEL. Results read back by same. Please Note: New Test Units and Gender Specific Reference Ranges. For more information see Policy Stat Procedure [place] High Sensitivity Troponin (TNIH) and attachments. PLATELET COUNTon 04-20-2022 Platelet mean volume (Bld) [Entitic vol] 10.1 fL Normal 8.5-12.2 [facility] Comment on above: Performed By: #### L ABHSTI1 #### [facility] (DEFAULT) [address] [address] Platelets (Bld) [#/Vol] 201 10*3/uL Normal 150-393 [facility] Comment on above: Performed By: #### L ABHSTI1 #### [facility] (DEFAULT) [address] [place] [address] Interpretation and review of laboratory results Normal [facility] Platelet mean volume (Bld) [Entitic vol] 10.1 fL 8.5 - 12.2 fL [facility] Platelets (Bld) [#/Vol] 201 10*3/uL 150 - 393 K/uL [facility] Absolute lymphocyte countOrd ered By: Dr. Curry on 04-19-2022 Lymphocytes Auto (Unsp spec) [#/Vol] 0.72 10*3/uL 0.83-4.51 [facility] Assessment of wrist artery p atency prior to arterial punctureOrdered By: Dr. Curry on 04-19-2022 Arterial patency Wrist artery --pre arterial puncture Positive [facility] BASIC METABOLIC PANELon 03-31 Anion gap [Moles/Vol] 12 mmol/L Normal 7-17 [facility] Comment on above: Performed By: #### C HM7 #### [facility] (DEFAULT) [address] [place] [address]18 Calcium [Mass/Vol] 8.6 mg/dL Normal 8.6-10.5 [facility] Comment on above: Performed By: #### C HM7 #### [facility] (DEFAULT) [address] [place] [address] Chloride [Moles/Vol] 103 mmol/L Normal 98-108 [facility] Comment on above: Performed By: #### C HM7 #### [facility] (DEFAULT) [address] [place] [address] CO2 [Moles/Vol] 24 mmol/L Normal 21-31 [facility] Comment on above: Performed By: #### C HM7 #### [facility] (DEFAULT) [address] [place] [address] Creatinine [Mass/Vol] 0.55 mg/dL Normal 0.50-1.20 [facility] Comment on above: Performed By: #### C HM7 #### [facility] (DEFAULT) [address] [address] GFR/1.73 sq M.predicted among non-blacks MDRD (S/P/Bld) [Vol rate/Area] 89 mL/min/{1.73_m2} Normal >=60 [facility] Comment on above: Result Comment: Repo rted eGFR is based on the CKD-EPI 2020 equation using creatinine, age, and sex. Performed By: #### C HM7 #### [facility] (DEFAULT) [address] [place] [address] Glucose [Mass/Vol] 165 mg/dL High 70-99 [facility] Comment on above: Performed By: #### C HM7 #### [facility] (DEFAULT) [address] [address] Osmolality [Osmolality] 288 mosm/kg Normal 278-305 [facility] Comment on above: Performed By: #### C HM7 #### [facility] (DEFAULT) [address] [place] [address] Potassium [Moles/Vol] 4.0 mmol/L Normal 3.5-5.0 [facility] Comment on above: Performed By: #### C HM7 #### [facility] (DEFAULT) [address] [place] [address] Sodium [Moles/Vol] 135 mmol/L Normal 135-145 [facility] Comment on above: Performed By: #### C HM7 #### [facility] (DEFAULT) [address] [place] [address] Urea nitrogen [Mass/Vol] 15 mg/dL Normal 7-25 [facility] Comment on above: Performed By: #### C HM7 #### [facility] (DEFAULT) [address] [place] [address] Urea nitrogen/Creatinine [Mass ratio] 27 mg/mg Normal [facility] Comment on above: Performed By: #### C HM7 #### [facility] (DEFAULT) [address] [place] [address] Base excessOrdered By: Dr. John coronel on 04-19-2022 Base excess Calc (BldV) [Moles/Vol] -2 mmol/L -2-2 [facility] Basophil percentageOrdered B y: Dr. Curry on 04-19-2022 Basophils/100 WBC (Bld) 0.4 % 0-1 [facility] Eosinophils/100 WBC (Bld) 2.4 % 0-5 [facility] Neutrophils (Bld) [#/Vol] 5.3 10*3/uL 2.0-7.7 [facility] Neutrophils/100 WBC (Bld) 78.6 % 47-70 [facility] WBC (Bld) [#/Vol] 6.8 10*3/uL 4.4-11.0 [facility] Basophil percentage 23.3 mmol/L 22-26 [facility] Basophils/100 WBC (Bld) 93 % 95-99 [facility] Chloride [Moles/Vol] 103 mmol/L 98-107 [facility] Glucose [Mass/Vol] 321 mg/dL 74-106 [facility] Comment on above: Glucose result great er than or equal to 200 mg/dLsuggests DIABETES MELLITUS per A.D.A. criteria. Potassium [Moles/Vol] 5.5 mmol/L 3.5-5.1 [facility] Comment on above: Slight Hemolysis, Re sult may be falsely increased. Sodium [Moles/Vol] 134 mmol/L 136-145 [facility] Blood erythrocytes count (nu mber/volume)Ordered By: Dr. Curry on 04-19-2022 RBC (Bld) [#/Vol] 4.32 10*6/uL 4.2-5.4 [facility] Blood hemoglobin measurement (mass/volume)Ordered By: Dr. Curry on 04-19-2022 Hemoglobin (Bld) [Mass/Vol] 12.5 g/dL 12.0-15.0 [facility] Blood lymphocytes/100 leukoc ytesOrdered By: Dr. Curry on 04-19-2022 Lymphocytes/100 WBC (Bld) 10.6 % 19-41 [facility] Blood monocytes/100 leukocyt esOrdered By: Dr. Curry on 04-19-2022 Monocytes/100 WBC (Bld) 7.7 % 0-10 [facility] Blood platelet mean volumeOr dered By: Dr. Curry on 04-19-2022 Platelet mean volume (Bld) [Entitic vol] 9.9 fL 6.2-12.0 [facility] CBC,PLATELETSon 04-19-2022 Hematocrit (Bld) [Volume fraction] 32.0 % Low 34.9-44.3 [facility] Comment on above: Performed By: #### X M #### [facility] (DEFAULT) [address] [address] Hemoglobin (Bld) [Mass/Vol] 10.5 g/dL Low 11.4-15.2 [facility] Comment on above: Performed By: #### X M #### [facility] (DEFAULT) [address] [address] MCV (RBC) [Entitic vol] 86.5 fL Normal 79.6-97.7 [facility] Comment on above: Performed By: #### X M #### [facility] (DEFAULT) [address] [address] Mean Cell Hgb 28.4 pg Normal 25.9-33.9 [facility] Comment on above: Performed By: #### X M #### [facility] (DEFAULT) [address] [address] Mean Cell Hgb Conc 32.8 g/dL Normal 31.4-35.9 [facility] Comment on above: Performed By: #### X M #### [facility] (DEFAULT) [address] [address] Platelet mean volume (Bld) [Entitic vol] 10.3 fL Normal 8.5-12.2 [facility] Comment on above: Performed By: #### X M #### [facility] (DEFAULT) [address] [address] Platelets (Bld) [#/Vol] 184 10*3/uL Normal 150-393 [facility] Comment on above: Performed By: #### X M #### [facility] (DEFAULT) [address] [address] RBC (Bld) [#/Vol] 3.70 10*6/uL Low 3.91-5.04 [facility] Comment on above: Performed By: #### X M #### [facility] (DEFAULT) [address] [address] RBC Distribution 13.5 % Normal 10.8-14.9 [facility] Comment on above: Performed By: #### X M #### [facility] (DEFAULT) [address] [address] WBC (Bld) [#/Vol] 5.56 10*3/uL Normal 3.99-11.19 [facility] Comment on above: Performed By: #### X M #### [facility] ([facility]) [address] [place] [address] CO2 (BldA) [Partial pressure ]Ordered By: Dr. Curry on 04-19-2022 CO2 (Bld) [Partial pressure] 41.2 mm[Hg] 35-45 [facility] COVID-19 virus antigen assay Ordered By: Dr. Curry on 04-19-2022 SARS-CoV-2 (COVID-19) Ag IA.rapid Ql (Resp) [facility] Determination of erythrocyte mean corpuscular volume (MCV)Ordered By: Dr. Curry on 04-19-2022 MCV (RBC) [Entitic vol] 87.7 fL 81-99 [facility] Hematocrit Auto (Bld) [Volum e fraction]Ordered By: Dr. Curry on 04-19-2022 Hematocrit (Bld) [Volume fraction] 37.9 % 37-47 [facility] INR in Blood by Coagulation assayOrdered By: Dr. Curry on 04-19-2022 INR Coag (Bld) [Relative time] 1.0 {INR} [facility] Laboratory - Chemistry and C hemistry - challengeOrdered By: Dr. Curry on 04-19-2022 Natriuretic peptide B (Bld) [Mass/Vol] 351.1 pg/mL 0-100 [facility] CO2 [Moles/Vol] 25.0 mmol/L 21.0-32.0 [facility] Urea nitrogen/Creatinine [Mass ratio] 21.2 mg/mg 10-20 [facility] - CoagulationOrde red By: Dr. Curry on 04-19-2022 aPTT Coag (Bld) [Time] 28.9 s 24.1-36.2 [facility] PT Coag (PPP) [Time] 13.2 s 11.7-14.9 [facility] - Hematology and Cell countsOrdered By: Dr. Curry on 04-19-2022 Erythrocyte distribution width (RBC) [Entitic vol] 42.7 fL 35.1-43.9 [facility] Erythrocyte distribution width (RBC) [Ratio] 13.2 % 11.6-14.6 [facility] Immature granulocytes/100 WBC (Bld) 0.300 % 0.0-0.9 [facility] Comment on above: IG% - Immature Granu locytes (promyelocytes, myelocytes and metamyelocytes) > 1% indicates that a LEFT SHIFT is Present. MCH (RBC) [Entitic mass] 28.9 pg 27.0-32.0 [facility] Nucleated RBC/100 WBC (Bld) [Ratio] 0 % 0-5 [facility] MCHC Auto (RBC) [Mass/Vol]Or dered By: Dr. Curry on 04-19-2022 MCHC (RBC) [Mass/Vol] 33.0 g/dL 32-36 [facility] No Panel InformationOrdered By: Dr. Curry on 04-19-2022 Blood Gas Clinical Comments 18. 8. [facility] Blood Gas Oxygen Percent 40 [facility] Blood Gas Respiration Rate 12 [facility] Blood Gas Sample Site R Radial [facility] Blood Gas Specimen Type ART [facility] Blood Gas Total CO2 25 mmol/L [facility] Oxygen Delivery Device BiPAP [facility] Estimated Creatinine Clearance Calc 41.23 ml/min [facility] Estimated GFR (MDRD) Amer 93 mL/min >60 [facility] Comment on above: GFR Calc Estimated GFR (MDRD) Non-Af Amer 77 mL/min >60 [facility] Comment on above: Non- GFR Calc Oxygen (BldA) [Partial press ure]Ordered By: Dr. Curry on 04-19-2022 Oxygen (Bld) [Partial pressure] 71 mmHG 75-100 [facility] Platelets bldOrdered By: Dr. Curry on 04-19-2022 Platelets (Bld) [#/Vol] 203 10*3/uL 150-450 [facility] Serum or plasma calcium neris urement (mass/volume)Ordered By: Dr. Curry on 04-19-2022 Calcium [Mass/Vol] 9.0 mg/dL 8.5-10.1 [facility] Serum or plasma creatinine m easurement (mass/volume)Ordered By: Dr. Curry on 04-19-2022 Creatinine [Mass/Vol] 0.76 mg/dL 0.55-1.02 [facility] Comment on above: The validity of the calculated GFR & GFRAA in patients over 70 years has not been determined. Clinical correlation is essential. Serum or plasma urea nitroge n measurement (mass/volume)Ordered By: Dr. Curry on 04-19-2022 Urea nitrogen [Mass/Vol] 16 mg/dL 7-18 [facility] Thin prep Papanicolaou smear with manual screeningOrdered By: Dr. Curry on 04-19-2022 Thin prep Papanicolaou smear with manual screening 6 5-15 [facility] pH measurementOrdered By: Dr Shekhar Curry on 04-19-2022 pH (Unsp spec) 7.36 [pH] 7.35-7.45 [facility] CBC,PLATELETSon 04-18-2022 Hematocrit (Bld) [Volume fraction] 32.8 % Low 34.9-44.3 [facility] Comment on above: Performed By: #### H EMO ####[facility] (DEFAULT)[address] [place] [address], [place] [address] Hemoglobin (Bld) [Mass/Vol] 11.1 g/dL Low 11.4-15.2 [facility] Comment on above: Performed By: #### H EMO ####[facility] (DEFAULT)[address] [facility] [place] [address] MCV (RBC) [Entitic vol] 85.6 fL Normal 79.6-97.7 [facility] Comment on above: Performed By: #### H EMO ####[facility] (DEFAULT)[address] [facility] [place] [address] Mean Cell Hgb 29.0 pg Normal 25.9-33.9 [facility] Comment on above: Performed By: #### H EMO ####[facility] (DEFAULT)[address] [facility] [place] [address] Mean Cell Hgb Conc 33.8 g/dL Normal 31.4-35.9 [facility] Comment on above: Performed By: #### H EMO ####[facility] (DEFAULT)[address] [place] [address] Platelet mean volume (Bld) [Entitic vol] 9.6 fL Normal 8.5-12.2 [facility] Comment on above: Performed By: #### H EMO ####[facility] (DEFAULT)[address] [facility] [place] [address] Platelets (Bld) [#/Vol] 192 10*3/uL Normal 150-393 [facility] Comment on above: Performed By: #### H EMO ####[facility] (DEFAULT)[address] [facility] [place] [address] RBC (Bld) [#/Vol] 3.83 10*6/uL Low 3.91-5.04 [facility] Comment on above: Performed By: #### H EMO ####[facility] (DEFAULT)[address] [facility] [place] [address] RBC Distribution 13.4 % Normal 10.8-14.9 [facility] Comment on above: Performed By: #### H EMO ####[facility] (DEFAULT)[address] [facility] [place] [address] WBC (Bld) [#/Vol] 7.42 10*3/uL Normal 3.99-11.19 [facility] Comment on above: Performed By: #### H EMOGC ####[facility] (DEFAULT)[address] [place] [address] CHEM 7 (LYTES,BUN,CREA,GLUC) on 04-18-2022 Anion gap [Moles/Vol] 12 mmol/L Normal 7-17 [facility] Comment on above: Performed By: #### C HM7, MGO ####[facility] (DEFAULT)[address] [facility] [place] [address] Chloride [Moles/Vol] 106 mmol/L Normal 98-108 [facility] Comment on above: Performed By: #### C HM7, MGO ####[facility] (DEFAULT)[address] [place] [address] CO2 [Moles/Vol] 24 mmol/L Normal 21-31 [facility] Comment on above: Performed By: #### Nancy MAO7, MGO ####[facility] (DEFAULT)[address] [facility] [place] [address] Creatinine [Mass/Vol] 0.57 mg/dL Normal 0.50-1.20 [facility] Comment on above: Performed By: #### Nancy MAO7, MGO ####[facility] (DEFAULT)[address] [place] [address], [place] [address] GFR/1.73 sq M.predicted among non-blacks MDRD (S/P/Bld) [Vol rate/Area] 88 mL/min/{1.73_m2} Normal >=60 [facility] Comment on above: Result Comment: Repo rted eGFR is based on the CKD-EPI 2020 equation using creatinine, age, and sex. Performed By: #### Nancy WOOD, MGO ####[facility] (DEFAULT)[address] [place] [address] Glucose [Mass/Vol] 136 mg/dL High 70-99 [facility] Comment on above: Performed By: #### Nancy MAO7, MGO ####[facility] (DEFAULT)[address] [facility] [place] [address] Osmolality [Osmolality] 294 mosm/kg Normal 278-305 [facility] Comment on above: Performed By: #### Nancy HM7, MGO ####[facility] (DEFAULT)[address] [facility] [place] [address] Potassium [Moles/Vol] 4.4 mmol/L Normal 3.5-5.0 [facility] Comment on above: Performed By: #### Nancy HM7, MGO ####[facility] (DEFAULT)[address] [facility] [place] [address] Sodium [Moles/Vol] 138 mmol/L Normal 135-145 [facility] Comment on above: Performed By: #### C HM7, MGO ####[facility] (DEFAULT)[address] [place] [address] Urea nitrogen [Mass/Vol] 17 mg/dL Normal - [facility] Comment on above: Performed By: #### C HM7, MGO ####[facility] (DEFAULT)[address] [place] [address] Urea nitrogen/Creatinine [Mass ratio] 30 mg/mg Normal [facility] Comment on above: Performed By: #### C HM7, MGO ####[facility] (DEFAULT)[address] [facility] [place] [address] CT ANGIO TAVR EVALUATION - C ARDIOLOGYon 04-18-2022 CT ANGIO TAVR EVALUATION - CARDIOLOGY [facility] CT Report Name: FINESSE PRATHER : 1935 [...] Diameter ? (more content not included)... Normal [facility] MAGNESIUMon 04-18-2022 Magnesium [Mass/Vol] 1.9 mg/dL Normal 1.6-2.6 [facility] Comment on above: Performed By: #### C HM7, MGO ####[facility] (DEFAULT)[address] [address] B-TYPE NATRIURETIC PEPTIDE ( BRAIN)on 04-17-2022 Natriuretic peptide B (Bld) [Mass/Vol] 553 pg/mL High 0-100 [facility] Comment on above: Performed By: #### C HM7 #### [facility] (DEFAULT) [address] [place] [address] CALCIUMon 04-17-2022 Calcium [Mass/Vol] 8.9 mg/dL Normal 8.6-10.5 [facility] Comment on above: Performed By: #### C HM6 #### [facility] (DEFAULT) [address] [place] [address] CBC,PLATELETSon 04-17-2022 Hematocrit (Bld) [Volume fraction] 34.8 % Low 34.9-44.3 [facility] Comment on above: Performed By: #### C HM6 #### [facility] (DEFAULT) [address] [place] [address] Hemoglobin (Bld) [Mass/Vol] 11.7 g/dL Normal 11.4-15.2 [facility] Comment on above: Performed By: #### C HM6 #### [facility] (DEFAULT) [address] [address] MCV (RBC) [Entitic vol] 87.2 fL Normal 79.6-97.7 [facility] Comment on above: Performed By: #### C HM6 #### [facility] (DEFAULT) [address] [address] Mean Cell Hgb 29.3 pg Normal 25.9-33.9 [facility] Comment on above: Performed By: #### C HM6 #### [facility] (DEFAULT) [address] [address] Mean Cell Hgb Conc 33.6 g/dL Normal 31.4-35.9 [facility] Comment on above: Performed By: #### C HM6 #### [facility] (DEFAULT) [address] [address] Platelet mean volume (Bld) [Entitic vol] 10.0 fL Normal 8.5-12.2 [facility] Comment on above: Performed By: #### C HM6 #### [facility] (DEFAULT) [address] [address] Platelets (Bld) [#/Vol] 229 10*3/uL Normal 150-393 [facility] Comment on above: Performed By: #### C HM6 #### [facility] (DEFAULT) [address] [address] RBC (Bld) [#/Vol] 3.99 10*6/uL Normal 3.91-5.04 [facility] Comment on above: Performed By: #### C HM6 #### [facility] (DEFAULT) [address] [address] RBC Distribution 13.4 % Normal 10.8-14.9 [facility] Comment on above: Performed By: #### C HM6 #### [facility] (DEFAULT) [address] [place] [address] WBC (Bld) [#/Vol] 8.38 10*3/uL Normal 3.99-11.19 [facility] Comment on above: Performed By: #### C HM6 #### [facility] (DEFAULT) [address] [place] [address] CHEM 7 (LYTES,BUN,CREA,GLUC) on 04-17-2022 Anion gap [Moles/Vol] 14 mmol/L Normal 7-17 [facility] Comment on above: Performed By: #### T YPEC #### [facility] (DEFAULT) [address] [place] [address] Chloride [Moles/Vol] 105 mmol/L Normal 98-108 [facility] Comment on above: Performed By: #### T YPEC #### [facility] (DEFAULT) [address] [place] [address] CO2 [Moles/Vol] 24 mmol/L Normal 21-31 [facility] Comment on above: Performed By: #### T YPEC #### [facility] (DEFAULT) [address] [address] Creatinine [Mass/Vol] 0.52 mg/dL Normal 0.50-1.20 [facility] Comment on above: Performed By: #### T YPEC #### [facility] (DEFAULT) [address] [address] GFR/1.73 sq M.predicted among non-blacks MDRD (S/P/Bld) [Vol rate/Area] 90 mL/min/{1.73_m2} Normal >=60 [facility] Comment on above: Result Comment: Repo rted eGFR is based on the CKD-EPI 2020 equation using creatinine, age, and sex. Performed By: #### T YPEC #### [facility] (DEFAULT) [address] [place] [address] Glucose [Mass/Vol] 91 mg/dL Normal 70-99 [facility] Comment on above: Performed By: #### T YPEC #### [facility] (DEFAULT) [address] [place] [address] Osmolality [Osmolality] 292 mosm/kg Normal 278-305 [facility] Comment on above: Performed By: #### T YPEC #### [facility] (DEFAULT) [address] [place] [address] Potassium [Moles/Vol] 4.0 mmol/L Normal 3.5-5.0 [facility] Comment on above: Performed By: #### T YPEC #### [facility] (DEFAULT) [address] [place] [address] Sodium [Moles/Vol] 139 mmol/L Normal 135-145 [facility] Comment on above: Performed By: #### T YPEC #### [facility] (DEFAULT) [address] [place] [address] Urea nitrogen [Mass/Vol] 16 mg/dL Normal 7-25 [facility] Comment on above: Performed By: #### T YPEC #### [facility] (DEFAULT) [address] [address] Urea nitrogen/Creatinine [Mass ratio] 31 mg/mg Normal [facility] Comment on above: Performed By: #### T YPEC #### [facility] (DEFAULT) [address] [place] [address] HEPATIC FUNCTION PANELon Albumin [Mass/Vol] 3.6 g/dL Normal 3.5-5.0 [facility] Comment on above: Performed By: #### T YPEC #### [facility] (DEFAULT) [address] [address] ALP [Catalytic activity/Vol] 93 U/L Normal 32-126 [facility] Comment on above: Performed By: #### T YPEC #### [facility] (DEFAULT) [address] [place] [address] ALT [Catalytic activity/Vol] 55 U/L High 9-48 [facility] Comment on above: Performed By: #### T YPEC #### [facility] (DEFAULT) [address] [place] [address] AST [Catalytic activity/Vol] 42 U/L High 10-39 [facility] Comment on above: Performed By: #### T YPEC #### [facility] (DEFAULT) [address] [address] Bilirubin [Mass/Vol] 1.0 mg/dL Normal <1.5 [facility] Comment on above: Performed By: #### T YPEC #### [facility] (DEFAULT) [address] [address] Bilirubin.indirect [Mass/Vol] 0.1 mg/dL Normal <0.3 [facility] Comment on above: Performed By: #### T YPEC #### [facility] (DEFAULT) [address] [address] Protein [Mass/Vol] 6.0 g/dL Low 6.4-8.3 [facility] Comment on above: Performed By: #### T YPEC #### [facility] (DEFAULT) [address] [address] LIPID PANEL W CALCULATED LDL on 04-17-2022 Calculated LDL Cholesterol 172 mg/dL High 0-99 [facility] Comment on above: Result Comment: [<10 0 mg/dL: Optimal] [100-129 mg/dL: Near Optimal] [130-159 mg/dL: Borderline High] [160-189 mg/dL: High] [>189 mg/dL: Very High] Performed By: #### T YPEC #### [facility] (DEFAULT) [address] [address] Cholesterol [Mass/Vol] 242 mg/dL High <200 [facility] Comment on above: Result Comment: [<20 0 mg/dL: Desirable] [200-239 mg/dL: Borderline High] [>239 mg/dL: High] Performed By: #### T YPEC #### [facility] (DEFAULT) [address] [place] [address] Cholesterol in HDL [Mass/Vol] 48 mg/dL Normal >=40 [facility] Comment on above: Result Comment: [<40 mg/dL: Low (High Risk)] [>59 mg/dL: High (Low Risk)] Performed By: #### T YPEC #### [facility] (DEFAULT) [address] [place] [address] Non HDL Cholesterol 194 mg/dL High <130 [facility] Comment on above: Performed By: #### T YPEC #### [facility] (DEFAULT) [address] [address] Total Cholesterol/HDL Ratio 5.0 High <4.5 [facility] Comment on above: Performed By: #### T YPEC #### [facility] (DEFAULT) [address] [place] [address] Triglyceride [Mass/Vol] 112 mg/dL Normal <150 [facility] Comment on above: Result Comment: [<15 0 mg/dL: Desirable] [150-199 mg/dL: Borderline] [200-499 mg/dL: High] [>500 mg/dL: Very High] Performed By: #### T YPEC #### [facility] (DEFAULT) [address] [address] MAGNESIUMon 04-17-2022 Magnesium [Mass/Vol] 1.8 mg/dL Normal 1.6-2.6 [facility] Comment on above: Performed By: #### T YPEC #### [facility] (DEFAULT) [address] [address] XR CHEST PORTABLEon 04-17-19 XR CHEST PORTABLE [...] and mild interstitial pulmonary edema. Cardiomegaly. Normal [facility] Absolute lymphocyte countOrd ered By: Dr. Boland on 04-16-2022 Lymphocytes Auto (Unsp spec) [#/Vol] 2.82 10*3/uL 0.83-4.51 [facility] Basophil percentageOrdered B y: Dr. Boland on 04-16-2022 Basophils/100 WBC (Bld) 0.6 % 0-1 [facility] Chloride [Moles/Vol] 106 mmol/L 98-107 [facility] Eosinophils/100 WBC (Bld) 3.7 % 0-5 [facility] Glucose [Mass/Vol] 279 mg/dL 74-106 [facility] Comment on above: Glucose result great er than or equal to 200 mg/dLsuggests DIABETES MELLITUS per A.D.A. criteria. Neutrophils (Bld) [#/Vol] 8.1 10*3/uL 2.0-7.7 [facility] Neutrophils/100 WBC (Bld) 65.8 % 47-70 [facility] Potassium [Moles/Vol] 4.3 mmol/L 3.5-5.1 [facility] Comment on above: Slight Hemolysis, Re sult may be falsely increased. Sodium [Moles/Vol] 137 mmol/L 136-145 [facility] WBC (Bld) [#/Vol] 12.3 10*3/uL 4.4-11.0 [facility] Blood erythrocytes count (nu mber/volume)Ordered By: Dr. Boland on 04-16-2022 RBC (Bld) [#/Vol] 4.33 10*6/uL 4.2-5.4 [facility] Blood hemoglobin measurement (mass/volume)Ordered By: Dr. Boland on 04-16-2022 Hemoglobin (Bld) [Mass/Vol] 12.5 g/dL 12.0-15.0 [facility] Blood lymphocytes/100 leukoc ytesOrdered By: Dr. Boland on 04-16-2022 Lymphocytes/100 WBC (Bld) 23.0 % 19-41 [facility] Blood monocytes/100 leukocyt esOrdered By: Dr. Boland on 04-16-2022 Monocytes/100 WBC (Bld) 6.2 % 0-10 [facility] Blood platelet mean volumeOr dered By: Dr. Boland on 04-16-2022 Platelet mean volume (Bld) [Entitic vol] 9.9 fL 6.2-12.0 [facility] Determination of erythrocyte mean corpuscular volume (MCV)Ordered By: Dr. Boland on 04-16-2022 MCV (RBC) [Entitic vol] 88.9 fL 81-99 [facility] Hematocrit Auto (Bld) [Volum e fraction]Ordered By: Dr. Boland on 04-16-2022 Hematocrit (Bld) [Volume fraction] 38.5 % 37-47 [facility] Influenza virus A and B and SARS-CoV-2 (COVID-19) Ag panel - Upper respiratory specimOrdered By: Dr. Boland on 04-16-2022 SARS-CoV-2 (COVID-19) RNA NICHOLAS+probe Ql (Resp) [facility] Laboratory - Chemistry and C hemistry - challengeOrdered By: Dr. Boland on 04-16-2022 CO2 [Moles/Vol] 24.0 mmol/L 21.0-32.0 [facility] Natriuretic peptide B (Bld) [Mass/Vol] 616.1 pg/mL 0-100 [facility] Urea nitrogen/Creatinine [Mass ratio] 30.3 mg/mg 10-20 [facility] Laboratory - Hematology and Cell countsOrdered By: Dr. Boland on 04-16-2022 Erythrocyte distribution width (RBC) [Entitic vol] 44.0 fL 35.1-43.9 [facility] Erythrocyte distribution width (RBC) [Ratio] 13.4 % 11.6-14.6 [facility] Immature granulocytes/100 WBC (Bld) 0.700 % 0.0-0.9 [facility] Comment on above: IG% - Immature Granu locytes (promyelocytes, myelocytes and metamyelocytes) > 1% indicates that a LEFT SHIFT is Present. MCH (RBC) [Entitic mass] 28.9 pg 27.0-32.0 [facility] Nucleated RBC/100 WBC (Bld) [Ratio] 0 % 0-5 [facility] MCHC Auto (RBC) [Mass/Vol]Or dered By: Dr. Boland on 04-16-2022 MCHC (RBC) [Mass/Vol] 32.5 g/dL 32-36 [facility] No Panel InformationOrdered By: Dr. Boland on 04-16-2022 Estimated Creatinine Clearance Calc 28.47 ml/min [facility] Estimated GFR (MDRD) Amer 109 mL/min >60 [facility] Comment on above: GFR Calc Estimated GFR (MDRD) Non-Af Amer 90 mL/min >60 [facility] Comment on above: Non- GFR Calc Troponin I High Sensitivity 33 pg/mL 3.0-54.0 [facility] Comment on above: Please Note: New Avril t Units and Gender Specific Reference Ranges. For more information see Policy Stat Procedure Carriere High Sensitivity Troponin (TNIH) and attachments. Platelets bldOrdered By: Dr. Boland on 04-16-2022 Platelets (Bld) [#/Vol] 305 10*3/uL 150-450 [facility] Serum or plasma calcium neris urement (mass/volume)Ordered By: Dr. Boland on 04-16-2022 Calcium [Mass/Vol] 8.6 mg/dL 8.5-10.1 [facility] Serum or plasma creatinine m easurement (mass/volume)Ordered By: Dr. Boland on 04-16-2022 Creatinine [Mass/Vol] 0.66 mg/dL 0.55-1.02 [facility] Comment on above: The validity of the calculated GFR & GFRAA in patients over 70 years has not been determined. Clinical correlation is essential. Serum or plasma urea nitroge n measurement (mass/volume)Ordered By: Dr. Boland on 04-16-2022 Urea nitrogen [Mass/Vol] 20 mg/dL - [facility] Thin prep Papanicolaou smear with manual screeningOrdered By: Dr. Boland on 04-16-2022 Thin prep Papanicolaou smear with manual screening 7 5-15 [facility] INVASIVE CARDIOVASCULAR PROC EVERTONon 04-07-2022 INVASIVE CARDIOVASCULAR [...] predilated the mid vessel lesion with a 2.37r48vi compliant balloon, then stented with a 3.0x28mm HIRAL with good results. Table formatting from the original result was not included. Images from the original result were not included. Finesse Ramirez Natalai Invasive Cardiology Cath Procedure Ordering Physician: [facility] Order #: [id number] Study Date: 04/04/2022 Patient Information Name MRN Description Finesse Prather [id number] y.o. female Location Name Address [facility] [address] [place] [id number] Physicians Panel Physicians Referring Physician Case Authorizing Physician Criselda Bacon MD (Primary) Farouk Belal, MD Jacobo Lopez MD (Fellow) Tito Holguin MD (Fellow) CC Referring Recipient Method Contact Information [facility] MD In Basket ? Murphy Burton MD Fax ? Yuli Lucas MD Mail ? Procedures ULTRASOUND GUIDED ACCESS STENT-CORONARY Indications Coronary artery disease involving [place] coronary artery of [place] heart with unstable angina pectoris [I25.110 (ICD-10-CM)] [...] with a 6Fr AR1 guide and a V[place] wire was advanced into the distal PL branch. We predilated the mid vessel lesion with a 2.20m53le compliant balloon, then stented with a 3.0x28mm [...] signed. The patient was brought to the laborer and placed on the table. The [...] 3). - A CATH GUIDE 6FR AR1 [id number] interventional guide catheter was used to [...] 11 bola (more content not included)... Normal [facility] CBC,PLATELETSon 04-05-2022 Hematocrit (Bld) [Volume fraction] 33.2 % Low 34.9-44.3 [facility] Comment on above: Performed By: #### L ABHSTI1 #### [facility] (DEFAULT) [address] [address] Hemoglobin (Bld) [Mass/Vol] 11.2 g/dL Low 11.4-15.2 [facility] Comment on above: Performed By: #### L ABHSTI1 #### [facility] (DEFAULT) [address] [address] MCV (RBC) [Entitic vol] 83.6 fL Normal 79.6-97.7 [facility] Comment on above: Performed By: #### L ABHSTI1 #### [facility] (DEFAULT) [address] [address] Mean Cell Hgb 28.2 pg Normal 25.9-33.9 [facility] Comment on above: Performed By: #### L ABHSTI1 #### [facility] (DEFAULT) [address] [place] [address] Mean Cell Hgb Conc 33.7 g/dL Normal 31.4-35.9 [facility] Comment on above: Performed By: #### L ABHSTI1 #### [facility] (DEFAULT) [address] [place] [address] Platelet mean volume (Bld) [Entitic vol] 9.9 fL Normal 8.5-12.2 [facility] Comment on above: Performed By: #### L ABHSTI1 #### [facility] (DEFAULT) [address] [place] [address] Platelets (Bld) [#/Vol] 232 10*3/uL Normal 150-393 [facility] Comment on above: Performed By: #### L ABHSTI1 #### [facility] (DEFAULT) [address] [place] [address] RBC (Bld) [#/Vol] 3.97 10*6/uL Normal 3.91-5.04 [facility] Comment on above: Performed By: #### L ABHSTI1 #### [facility] (DEFAULT) [address] [place] [address] RBC Distribution 12.8 % Normal 10.8-14.9 [facility] Comment on above: Performed By: #### L ABHSTI1 #### [facility] (DEFAULT) [address] [place] [address] WBC (Bld) [#/Vol] 7.42 10*3/uL Normal 3.99-11.19 [facility] Comment on above: Performed By: #### L ABHSTI1 #### [facility] (DEFAULT) [address] [place] [address] Erythrocyte distribution width (RBC) [Ratio] 12.8 % 10.8 - 14.9 % [facility] Hematocrit (Bld) [Volume fraction] 33.2 % Low 34.9 - 44.3 % [facility] Hemoglobin (Bld) [Mass/Vol] 11.2 g/dL Low 11.4 - 15.2 g/dL [facility] Interpretation and review of laboratory results Abnormal [facility] MCH (RBC) [Entitic mass] 28.2 pg 25.9 - 33.9 pg [facility] MCHC (RBC) [Mass/Vol] 33.7 g/dL 31.4 - 35.9 g/dL [facility] MCV (RBC) [Entitic vol] 83.6 fL 79.6 - 97.7 fL [facility] Platelet mean volume (Bld) [Entitic vol] 9.9 fL 8.5 - 12.2 fL [facility] Platelets (Bld) [#/Vol] 232 10*3/uL 150 - 393 K/uL [facility] RBC (Bld) [#/Vol] 3.97 10*6/uL [facility] WBC (Bld) [#/Vol] 7.42 10*3/uL 3.99 - 11. 19 K/uL [facility] CHEM 6 (LYTES, BUN CREA)on 0 - Anion gap [Moles/Vol] 12 mmol/L Normal 7-17 [facility] Comment on above: Performed By: #### X M #### [facility] (DEFAULT) [address] [place] [address] Chloride [Moles/Vol] 104 mmol/L Normal 98-108 [facility] Comment on above: Performed By: #### X M #### [facility] (DEFAULT) [address] [place] [address] CO2 [Moles/Vol] 22 mmol/L Normal 21-31 [facility] Comment on above: Performed By: #### X M #### [facility] (DEFAULT) [address] [place] [address] Creatinine [Mass/Vol] 0.57 mg/dL Normal 0.50-1.20 [facility] Comment on above: Performed By: #### X M #### [facility] (DEFAULT) [address] [place] [address] GFR/1.73 sq M.predicted among non-blacks MDRD (S/P/Bld) [Vol rate/Area] 88 mL/min/{1.73_m2} Normal >=60 [facility] Comment on above: Result Comment: Repo rted eGFR is based on the CKD-EPI 2020 equation using creatinine, age, and sex. Performed By: #### X M #### [facility] (DEFAULT) [address] [place] [address] Potassium [Moles/Vol] 4.1 mmol/L Normal 3.5-5.0 [facility] Comment on above: Performed By: #### X M #### [facility] (DEFAULT) [address] [place] [address] Sodium [Moles/Vol] 134 mmol/L Low 135-145 [facility] Comment on above: Performed By: #### X M #### [facility] (DEFAULT) [address] [place] [address] Urea nitrogen [Mass/Vol] 24 mg/dL Normal 7-25 [facility] Comment on above: Performed By: #### X M #### [facility] (DEFAULT) [address] [place] [address] Urea nitrogen/Creatinine [Mass ratio] 42 mg/mg Normal [facility] Comment on above: Performed By: #### X M #### [facility] (DEFAULT) [address] [place] [address] Anion gap [Moles/Vol] 12 mmol/L 7 - 17 mmol/L [facility] Chloride [Moles/Vol] 104 mmol/L 98 - 10 8 mmol/L [facility] CO2 [Moles/Vol] 22 mmol/L 21 - 31 mmol/L [facility] Creatinine [Mass/Vol] 0.57 mg/dL 0.50 - 1.20 mg/dL [facility] GFR/1.73 sq M.predicted CKD-EPI (S/P/Bld) [Vol rate/Area] 88 - PINF [facility] Comment on above: Reported eGFR is bas ed on the CKD-EPI 2020 equation using creatinine, age, and sex. Interpretation and review of laboratory results Abnormal [facility] Potassium [Moles/Vol] 4.1 mmol/L 3.5 - 5.0 mmol/L [facility] Sodium [Moles/Vol] 134 mmol/L Low 135 - 145 mmol/L [facility] Urea nitrogen [Mass/Vol] 24 mg/dL 7 - 25 mg/dL [facility] Urea nitrogen/Creatinine [Mass ratio] 42 mg/mg [facility] CONTINUOUS CARDIAC MONITORIN G STRIPon 04-05-2022 [facility] GLUCOSE POCon 04-05-2022 Glucose [Mass/Vol] 107 mg/dL High 70 - 99 mg/dL [facility] Interpretation and review of laboratory results Abnormal [facility] POC Sample Type CAPBL [facility] Test performed at address of the patient encounter. [facility] Glucose [Mass/Vol] 124 mg/dL High 70 - 99 mg/dL [facility] Interpretation and review of laboratory results Abnormal [facility] POC Sample Type CAPBL [facility] Test performed at address of the patient encounter. [facility] Glucose [Mass/Vol] 120 mg/dL High 70 - 99 mg/dL [facility] Interpretation and review of laboratory results Abnormal [facility] POC Sample Type CAPBL [facility] Test performed at address of the patient encounter. [facility] MAGNESIUMon 04-05-2022 Magnesium [Mass/Vol] 1.9 mg/dL Normal 1.6-2.6 [facility] Comment on above: Performed By: #### X M #### [facility] (DEFAULT) [address] [address] Interpretation and review of laboratory results Normal [facility] Magnesium [Mass/Vol] 1.9 mg/dL 1.6 - 2 .6 mg/dL [facility] No Panel Informationon 04-05 [facility] CBC,PLATELETSon 04-04-2022 Hematocrit (Bld) [Volume fraction] 34.3 % Low 34.9-44.3 [facility] Comment on above: Performed By: #### L ABHSTI1 #### [facility] (DEFAULT) [address] [address] Hemoglobin (Bld) [Mass/Vol] 11.6 g/dL Normal 11.4-15.2 [facility] Comment on above: Performed By: #### L ABHSTI1 #### [facility] (DEFAULT) [address] [address] MCV (RBC) [Entitic vol] 86.0 fL Normal 79.6-97.7 [facility] Comment on above: Performed By: #### L ABHSTI1 #### [facility] (DEFAULT) [address] [address] Mean Cell Hgb 29.1 pg Normal 25.9-33.9 [facility] Comment on above: Performed By: #### L ABHSTI1 #### [facility] (DEFAULT) [address] [address] Mean Cell Hgb Conc 33.8 g/dL Normal 31.4-35.9 [facility] Comment on above: Performed By: #### L ABHSTI1 #### [facility] (DEFAULT) [address] [address] Platelet mean volume (Bld) [Entitic vol] 10.1 fL Normal 8.5-12.2 [facility] Comment on above: Performed By: #### L ABHSTI1 #### [facility] (DEFAULT) [address] [place] [address] Platelets (Bld) [#/Vol] 228 10*3/uL Normal 150-393 [facility] Comment on above: Performed By: #### L ABHSTI1 #### [facility] (DEFAULT) [address] [place] [address] RBC (Bld) [#/Vol] 3.99 10*6/uL Normal 3.91-5.04 [facility] Comment on above: Performed By: #### L ABHSTI1 #### [facility] (DEFAULT) [address] [place] [address] RBC Distribution 12.5 % Normal 10.8-14.9 [facility] Comment on above: Performed By: #### L ABHSTI1 #### [facility] (DEFAULT) [address] [place] [address] WBC (Bld) [#/Vol] 7.71 10*3/uL Normal 3.99-11.19 [facility] Comment on above: Performed By: #### L ABHSTI1 #### [facility] (DEFAULT) [address] [place] [address] Erythrocyte distribution width (RBC) [Ratio] 12.5 % 10.8 - 14.9 % [facility] Hematocrit (Bld) [Volume fraction] 34.3 % Low 34.9 - 44.3 % [facility] Hemoglobin (Bld) [Mass/Vol] 11.6 g/dL 11.4 - 15.2 g/dL [facility] Interpretation and review of laboratory results Abnormal [facility] MCH (RBC) [Entitic mass] 29.1 pg 25.9 - 33.9 pg [facility] MCHC (RBC) [Mass/Vol] 33.8 g/dL 31.4 - 35.9 g/dL [facility] MCV (RBC) [Entitic vol] 86.0 fL 79.6 - 97.7 fL [facility] Platelet mean volume (Bld) [Entitic vol] 10.1 fL 8.5 - 12.2 fL [facility] Platelets (Bld) [#/Vol] 228 10*3/uL 150 - 393 K/uL [facility] RBC (Bld) [#/Vol] 3.99 10*6/uL [facility] WBC (Bld) [#/Vol] 7.71 10*3/uL 3.99 - 11. 19 K/uL [facility] CHEM 6 (LYTES, BUN CREA)on 0 04-04-2022 Anion gap [Moles/Vol] 12 mmol/L Normal 7-17 [facility] Comment on above: Performed By: #### T YPEC #### [facility] (DEFAULT) [address] [place] [address] Chloride [Moles/Vol] 103 mmol/L Normal 98-108 [facility] Comment on above: Performed By: #### T YPEC #### [facility] (DEFAULT) [address] [place] [address] CO2 [Moles/Vol] 24 mmol/L Normal 21-31 [facility] Comment on above: Performed By: #### T YPEC #### [facility] (DEFAULT) [address] [place] [address] Creatinine [Mass/Vol] 0.69 mg/dL Normal 0.50-1.20 [facility] Comment on above: Performed By: #### T YPEC #### [facility] (DEFAULT) [address] [place] [address] GFR/1.73 sq M.predicted among non-blacks MDRD (S/P/Bld) [Vol rate/Area] 84 mL/min/{1.73_m2} Normal >=60 [facility] Comment on above: Result Comment: Repo rted eGFR is based on the CKD-EPI 2020 equation using creatinine, age, and sex. Performed By: #### T YPEC #### [facility] (DEFAULT) [address] [place] [address] Potassium [Moles/Vol] 4.0 mmol/L Normal 3.5-5.0 [facility] Comment on above: Performed By: #### T YPEC #### [facility] (DEFAULT) [address] [place] [address] Sodium [Moles/Vol] 135 mmol/L Normal 135-145 [facility] Comment on above: Performed By: #### T YPEC #### [facility] (DEFAULT) [address] [place] [address] Urea nitrogen [Mass/Vol] 30 mg/dL High 7-25 [facility] Comment on above: Performed By: #### T YPEC #### [facility] (DEFAULT) [address] [place] [address] Urea nitrogen/Creatinine [Mass ratio] 43 mg/mg Normal [facility] Comment on above: Performed By: #### T YPEC #### [facility] (DEFAULT) [address] [place] [address] Anion gap [Moles/Vol] 12 mmol/L 7 - 17 mmol/L [facility] Chloride [Moles/Vol] 103 mmol/L 98 - 10 8 mmol/L [facility] CO2 [Moles/Vol] 24 mmol/L 21 - 31 mmol/L [facility] Creatinine [Mass/Vol] 0.69 mg/dL 0.50 - 1.20 mg/dL [facility] GFR/1.73 sq M.predicted CKD-EPI (S/P/Bld) [Vol rate/Area] 84 - PINF [facility] Comment on above: Reported eGFR is bas ed on the CKD-EPI 2020 equation using creatinine, age, and sex. Interpretation and review of laboratory results Abnormal [facility] Potassium [Moles/Vol] 4.0 mmol/L 3.5 - 5.0 mmol/L [facility] Sodium [Moles/Vol] 135 mmol/L 135 - 145 mmol/L [facility] Urea nitrogen [Mass/Vol] 30 mg/dL High 7 - 25 mg/dL [facility] Urea nitrogen/Creatinine [Mass ratio] 43 mg/mg [facility] CONTINUOUS CARDIAC MONITORIN G STRIPon 04-04-2022 [facility] Cardiac catheterization stud yon 04-04-2022 [facility] Rad[facility]ative[facility] GLUCOSE POCon 04-04-2022 Glucose [Mass/Vol] 201 mg/dL High 70 - 99 mg/dL [facility] Interpretation and review of laboratory results Abnormal [facility] POC Sample Type CAPBL [facility] Test performed at address of the patient encounter. [facility] Glucose [Mass/Vol] 116 mg/dL High 70 - 99 mg/dL [facility] Interpretation and review of laboratory results Abnormal [facility] POC Sample Type CAPBL [facility] Test performed at address of the patient encounter. [facility] Glucose [Mass/Vol] 152 mg/dL High 70 - 99 mg/dL [facility] Interpretation and review of laboratory results Abnormal [facility] POC Sample Type CAPBL [facility] Test performed at address of the patient encounter. [facility] Glucose [Mass/Vol] 126 mg/dL High 70 - 99 mg/dL [facility] Interpretation and review of laboratory results Abnormal [facility] POC Sample Type CAPBL [facility] Test performed at address of the patient encounter. [facility] Glucose [Mass/Vol] 118 mg/dL High 70 - 99 mg/dL [facility] Interpretation and review of laboratory results Abnormal [facility] POC Sample Type CAP[facility] Test performed at address of the patient encounter. [facility] MAGNESIUMon 04-04-2022 Magnesium [Mass/Vol] 2.0 mg/dL Normal 1.6-2.6 [facility] Comment on above: Performed By: #### T YPEC #### [facility] (DEFAULT) [address] [place] [id number] Interpretation and review of laboratory results Normal [facility] Magnesium [Mass/Vol] 2.0 mg/dL 1.6 - 2 .6 mg/dL [facility] No Panel Informationon 04-04 [facility] TROPONIN 1 HOURon 04-04-2022 1 Hour hs-Troponin 126 ng/L High <34 [facility] Comment on above: Order Comment: Prese rvative, acetic acid, obtained from lab Result Comment: Sugg estive of myocardial injury Performed By: #### Y METN #### [facility] (DEFAULT) [address] [place] [address] Delta hs-Troponin I < Normal <=15 [facility] Comment on above: Order Comment: Prese rvative, acetic acid, obtained from lab Performed By: #### Y METN #### [facility] (DEFAULT) [address] [place] [address]1407 1 Hour hs-Troponin 126 ng/L High NINF - 34 ng/L [facility] Comment on above: Suggestive of myocar dial injury Delta hs-Troponin I ng/L NINF - 1 5 ng/L [facility] Interpretation and review of laboratory results Abnormal [facility] TROPONIN I INITIALon 023 hs-Troponin I 127 ng/L High <34 [facility] Comment on above: Order Comment: Acute Coronary Syndrome (ACS): Initial Evaluation and Management:[email or web address] [email or web address]%20Coronary%20Syndrome.pdf#search=[email or web address] Result Comment: Sugg estive of myocardial injury Performed By: #### 1 [id number] ####[facility] (DEFAULT)[address] [place] [address] TROPONIN I INITIALOrdered By : Tamica Alarcon on 04-04-2022 Interpretation and review of laboratory results Abnormal [facility] Troponin I.cardiac DL <= 0.01 ng/mL [Mass/Vol] 127 ng/L High NINF - 34 ng/L [facility] Comment on above: Suggestive of myocar dial injury [facility] CBC,PLATELETSon 04-03-2022 Hematocrit (Bld) [Volume fraction] 35.6 % Normal 34.9-44.3 [facility] Comment on above: Performed By: #### X M #### [facility] (DEFAULT) [address] [address] Hemoglobin (Bld) [Mass/Vol] 12.0 g/dL Normal 11.4-15.2 [facility] Comment on above: Performed By: #### X M #### [facility] (DEFAULT) [address] [address] MCV (RBC) [Entitic vol] 85.0 fL Normal 79.6-97.7 [facility] Comment on above: Performed By: #### X M #### [facility] (DEFAULT) [address] [address] Mean Cell Hgb 28.6 pg Normal 25.9-33.9 [facility] Comment on above: Performed By: #### X M #### [facility] (DEFAULT) [address] [address] Mean Cell Hgb Conc 33.7 g/dL Normal 31.4-35.9 [facility] Comment on above: Performed By: #### X M #### [facility] (DEFAULT) [address] [address] Platelet mean volume (Bld) [Entitic vol] 9.8 fL Normal 8.5-12.2 [facility] Comment on above: Performed By: #### X M #### [facility] (DEFAULT) [address] [address] Platelets (Bld) [#/Vol] 231 10*3/uL Normal 150-393 [facility] Comment on above: Performed By: #### X M #### [facility] (DEFAULT) [address] [place] [address] RBC (Bld) [#/Vol] 4.19 10*6/uL Normal 3.91-5.04 [facility] Comment on above: Performed By: #### X M #### [facility] (DEFAULT) [address] [place] [address]41 RBC Distribution 12.7 % Normal 10.8-14.9 [facility] Comment on above: Performed By: #### X M #### [facility] (DEFAULT) [address] [place] [address] WBC (Bld) [#/Vol] 6.95 10*3/uL Normal 3.99-11.19 [facility] Comment on above: Performed By: #### X M #### [facility] (DEFAULT) [address] [place] [address] Erythrocyte distribution width (RBC) [Ratio] 12.7 % 10.8 - 14.9 % [facility] Hematocrit (Bld) [Volume fraction] 35.6 % 34.9 - 44.3 % [facility] Hemoglobin (Bld) [Mass/Vol] 12.0 g/dL 11.4 - 15.2 g/dL [facility] Interpretation and review of laboratory results Normal [facility] MCH (RBC) [Entitic mass] 28.6 pg 25.9 - 33.9 pg [facility] MCHC (RBC) [Mass/Vol] 33.7 g/dL 31.4 - 35.9 g/dL [facility] MCV (RBC) [Entitic vol] 85.0 fL 79.6 - 97.7 fL [facility] Platelet mean volume (Bld) [Entitic vol] 9.8 fL 8.5 - 12.2 fL [facility] Platelets (Bld) [#/Vol] 231 10*3/uL 150 - 393 K/uL [facility] RBC (Bld) [#/Vol] 4.19 10*6/uL [facility] WBC (Bld) [#/Vol] 6.95 10*3/uL 3.99 - 11. 19 K/uL [facility] CHEM 6 (LYTES, BUN CREA)on 0 04-03-2022 Anion gap [Moles/Vol] 12 mmol/L Normal 7-17 [facility] Comment on above: Performed By: #### L ABHSTI1 #### [facility] (DEFAULT) [address] [place] [address] Chloride [Moles/Vol] 102 mmol/L Normal 98-108 [facility] Comment on above: Performed By: #### L ABHSTI1 #### [facility] (DEFAULT) [address] [place] [address]19 CO2 [Moles/Vol] 23 mmol/L Normal 21-31 [facility] Comment on above: Performed By: #### L ABHSTI1 #### [facility] (DEFAULT) [address] [place] [address] Creatinine [Mass/Vol] 0.58 mg/dL Normal 0.50-1.20 [facility] Comment on above: Performed By: #### L ABHSTI1 #### [facility] (DEFAULT) [address] [place] [address] GFR/1.73 sq M.predicted among non-blacks MDRD (S/P/Bld) [Vol rate/Area] 88 mL/min/{1.73_m2} Normal >=60 [facility] Comment on above: Result Comment: Repo rted eGFR is based on the CKD-EPI 2020 equation using creatinine, age, and sex. Performed By: #### L ABHSTI1 #### [facility] (DEFAULT) [address] [place] [address] Potassium [Moles/Vol] 4.3 mmol/L Normal 3.5-5.0 [facility] Comment on above: Performed By: #### L ABHSTI1 #### [facility] (DEFAULT) [address] [place] [address] 11565 Sodium [Moles/Vol] 133 mmol/L Low 135-145 [facility] Comment on above: Performed By: #### L HSTI1 #### [facility] (DEFAULT) [address] [place] [address] 41155 Urea nitrogen [Mass/Vol] 24 mg/dL Normal 7-25 [facility] Comment on above: Performed By: #### L HSTI1 #### [facility] (DEFAULT) [address] [place] [address]18 Urea nitrogen/Creatinine [Mass ratio] 41 mg/mg Normal [facility] Comment on above: Performed By: #### L HSTI1 #### [facility] (DEFAULT) [address] [place] [address] Anion gap [Moles/Vol] 12 mmol/L 7 - 17 mmol/L [facility] Chloride [Moles/Vol] 102 mmol/L 98 - 10 8 mmol/L [facility] CO2 [Moles/Vol] 23 mmol/L 21 - 31 mmol/L [facility] Creatinine [Mass/Vol] 0.58 mg/dL 0.50 - 1.20 mg/dL [facility] GFR/1.73 sq M.predicted CKD-EPI (S/P/Bld) [Vol rate/Area] 88 - PINF [facility] Comment on above: Reported eGFR is bas ed on the CKD-EPI 2020 equation using creatinine, age, and sex. Interpretation and review of laboratory results Abnormal [facility] Potassium [Moles/Vol] 4.3 mmol/L 3.5 - 5.0 mmol/L [facility] Sodium [Moles/Vol] 133 mmol/L Low 135 - 145 mmol/L [facility] Urea nitrogen [Mass/Vol] 24 mg/dL 7 - 25 mg/dL [facility] Urea nitrogen/Creatinine [Mass ratio] 41 mg/mg [facility] CONTINUOUS CARDIAC MONITORIN G STRIPon 04-03-2022 [facility] GLUCOSE POCon 04-03-2022 Glucose [Mass/Vol] 171 mg/dL High 70 - 99 mg/dL [facility] Interpretation and review of laboratory results Abnormal [facility] POC Sample Type CAPBL [facility] Test performed at address of the patient encounter. [facility] Glucose [Mass/Vol] 116 mg/dL High 70 - 99 mg/dL [facility] Interpretation and review of laboratory results Abnormal [facility] POC Sample Type CAPBL [facility] Test performed at address of the patient encounter. [facility] Glucose [Mass/Vol] 96 mg/dL 70 - 99 mg/dL [facility] POC Sample Type CAPBL [facility] Test performed at address of the patient encounter. [facility] Glucose [Mass/Vol] 136 mg/dL High 70 - 99 mg/dL [facility] Interpretation and review of laboratory results Abnormal [facility] POC Sample Type CAPBL [facility] Test performed at address of the patient encounter. [facility] MAGNESIUMon 04-03-2022 Magnesium [Mass/Vol] 1.8 mg/dL Normal 1.6-2.6 [facility] Comment on above: Performed By: #### L [facility] #### [facility] (DEFAULT) [address] [place] [address] Interpretation and review of laboratory results Normal [facility] Magnesium [Mass/Vol] 1.8 mg/dL 1.6 - 2 .6 mg/dL [facility] No Panel Informationon 04-03 [facility] ACT* LOW RANGE, POCon 2022 ACT-LR 343 High [facility] ACT-LR 370 High [facility] ACT-LR 169 [facility] ACT-LR 267 High [facility] Interpretation and review of laboratory results Normal [facility] Interpretation and review of laboratory results Abnormal [facility] CBC,PLATELETSon 04-02-2022 Hematocrit (Bld) [Volume fraction] 38.3 % Normal 34.9-44.3 [facility] Comment on above: Performed By: #### X M #### [facility] (DEFAULT) [address] [address] Hemoglobin (Bld) [Mass/Vol] 12.8 g/dL Normal 11.4-15.2 [facility] Comment on above: Performed By: #### X M #### [facility] (DEFAULT) [address] [address] MCV (RBC) [Entitic vol] 85.7 fL Normal 79.6-97.7 [facility] Comment on above: Performed By: #### X M #### [facility] (DEFAULT) [address] [address] Mean Cell Hgb 28.6 pg Normal 25.9-33.9 [facility] Comment on above: Performed By: #### X M #### [facility] (DEFAULT) [address] [place] [address] Mean Cell Hgb Conc 33.4 g/dL Normal 31.4-35.9 [facility] Comment on above: Performed By: #### X M #### [facility] (DEFAULT) [address] [address] Platelet mean volume (Bld) [Entitic vol] 10.0 fL Normal 8.5-12.2 [facility] Comment on above: Performed By: #### X M #### [facility] (DEFAULT) [address] [place] [address] Platelets (Bld) [#/Vol] 247 10*3/uL Normal 150-393 [facility] Comment on above: Performed By: #### X M #### [facility] (DEFAULT) [address] [place] [address] 1948[address] RBC (Bld) [#/Vol] 4.47 10*6/uL Normal 3.91-5.04 [facility] Comment on above: Performed By: #### X M #### [facility] (DEFAULT) [address] [place] [address] RBC Distribution 12.9 % Normal 10.8-14.9 [facility] Comment on above: Performed By: #### X M #### [facility] (DEFAULT) [address] [place] [address] WBC (Bld) [#/Vol] 7.44 10*3/uL Normal 3.99-11.19 [facility] Comment on above: Performed By: #### X M #### [facility] (DEFAULT) [address] [place] [address] Erythrocyte distribution width (RBC) [Ratio] 12.9 % 10.8 - 14.9 % [facility] Hematocrit (Bld) [Volume fraction] 38.3 % 34.9 - 44.3 % [facility] Hemoglobin (Bld) [Mass/Vol] 12.8 g/dL 11.4 - 15.2 g/dL [facility] Interpretation and review of laboratory results Normal [facility] MCH (RBC) [Entitic mass] 28.6 pg 25.9 - 33.9 pg [facility] MCHC (RBC) [Mass/Vol] 33.4 g/dL 31.4 - 35.9 g/dL [facility] MCV (RBC) [Entitic vol] 85.7 fL 79.6 - 97.7 fL [facility] Platelet mean volume (Bld) [Entitic vol] 10.0 fL 8.5 - 12.2 fL [facility] Platelets (Bld) [#/Vol] 247 10*3/uL 150 - 393 K/uL [facility] RBC (Bld) [#/Vol] 4.47 10*6/uL [facility] WBC (Bld) [#/Vol] 7.44 10*3/uL 3.99 - 11. 19 K/uL [facility] CHEM 6 (LYTES, BUN CREA)on 0 04-02-2022 Anion gap [Moles/Vol] 12 mmol/L Normal 7-17 [facility] Comment on above: Performed By: #### C HM6 #### [facility] (DEFAULT) [address] [place] [address] Chloride [Moles/Vol] 102 mmol/L Normal 98-108 [facility] Comment on above: Performed By: #### C HM6 #### [facility] (DEFAULT) [address] [place] [address] CO2 [Moles/Vol] 26 mmol/L Normal 21-31 [facility] Comment on above: Performed By: #### C HM6 #### [facility] (DEFAULT) [address] [place] [address] Creatinine [Mass/Vol] 0.59 mg/dL Normal 0.50-1.20 [facility] Comment on above: Performed By: #### C HM6 #### [facility] (DEFAULT) [address] [place] [address] GFR/1.73 sq M.predicted among non-blacks MDRD (S/P/Bld) [Vol rate/Area] 87 mL/min/{1.73_m2} Normal >=60 [facility] Comment on above: Result Comment: Repo rted eGFR is based on the CKD-EPI 2020 equation using creatinine, age, and sex. Performed By: #### C HM6 #### [facility] (DEFAULT) [address] [place] [address] Potassium [Moles/Vol] 4.1 mmol/L Normal 3.5-5.0 [facility] Comment on above: Performed By: #### C HM6 #### [facility] (DEFAULT) [address] [place] [address] Sodium [Moles/Vol] 136 mmol/L Normal 135-145 [facility] Comment on above: Performed By: #### C HM6 #### [facility] (DEFAULT) [address] [place] [address] Urea nitrogen [Mass/Vol] 20 mg/dL Normal 7-25 [facility] Comment on above: Performed By: #### C HM6 #### [facility] (DEFAULT) [address] [place] [address] Urea nitrogen/Creatinine [Mass ratio] 34 mg/mg Normal [facility] Comment on above: Performed By: #### C HM6 #### [facility] (DEFAULT) [address] [place] [address] Anion gap [Moles/Vol] 12 mmol/L 7 - 17 mmol/L [facility] Chloride [Moles/Vol] 102 mmol/L 98 - 10 8 mmol/L [facility] CO2 [Moles/Vol] 26 mmol/L 21 - 31 mmol/L [facility] Creatinine [Mass/Vol] 0.59 mg/dL 0.50 - 1.20 mg/dL [facility] GFR/1.73 sq M.predicted CKD-EPI (S/P/Bld) [Vol rate/Area] 87 - PINF [facility] Comment on above: Reported eGFR is bas ed on the CKD-EPI 2020 equation using creatinine, age, and sex. Potassium [Moles/Vol] 4.1 mmol/L 3.5 - 5.0 mmol/L [facility] Sodium [Moles/Vol] 136 mmol/L 135 - 145 mmol/L [facility] Urea nitrogen [Mass/Vol] 20 mg/dL 7 - 25 mg/dL [facility] Urea nitrogen/Creatinine [Mass ratio] 34 mg/mg [facility] CONTINUOUS CARDIAC MONITORIN G STRIPon 04-02-2022 [facility] Cardiac catheterization stud grzegorz 04-02-2022 Body surface area Derived from formula 1.54 m2 [facility] Impression: Successful high-risk, complex PCI to proximal [...] was unable to be traversed with a [place] XT. A Whisper wire was successfully advanced [...] the lesion. Ultrasound supply: CATH [facility]. Supplies Used: CATHETER [employer]UID[employer] 6FR EBU3 CURVE [...] Diastolic heart fa (more content not included)... [facility] GLUCOSE POCon 04-02-2022 Glucose [Mass/Vol] 162 mg/dL High 70 - 99 mg/dL [facility] Interpretation and review of laboratory results Abnormal [facility] POC Sample Type CAPBL [facility] Test performed at address of the patient encounter. [facility] Glucose [Mass/Vol] 119 mg/dL High 70 - 99 mg/dL [facility] Interpretation and review of laboratory results Abnormal [facility] POC Sample Type CAPBL [facility] Test performed at address of the patient encounter. [facility] Glucose [Mass/Vol] 131 mg/dL High 70 - 99 mg/dL [facility] Interpretation and review of laboratory results Abnormal [facility] POC Sample Type CAPBL [facility] Test performed at address of the patient encounter. [facility] Glucose [Mass/Vol] 122 mg/dL High 70 - 99 mg/dL [facility] Interpretation and review of laboratory results Abnormal [facility] POC Sample Type CAPBL [facility] Test performed at address of the patient encounter. [facility] MAGNESIUMon 04-02-2022 Magnesium [Mass/Vol] 1.9 mg/dL Normal 1.6-2.6 [facility] Comment on above: Performed By: #### C HM6 #### [facility] (DEFAULT) [address] [place] [address] Interpretation and review of laboratory results Normal [facility] Magnesium [Mass/Vol] 1.9 mg/dL 1.6 - 2 .6 mg/dL [facility] No Panel Informationon 04-02 [facility] Interpretation and review of laboratory results Abnormal [facility] Test performed at address of the patient encounter. [facility] Test performed at address of the patient encounter. [facility] CBC,PLATELETSon 04-01-2022 Hematocrit (Bld) [Volume fraction] 37.1 % Normal 34.9-44.3 [facility] Comment on above: Performed By: #### C HM6 #### [facility] (DEFAULT) [address] [place] [address] Hemoglobin (Bld) [Mass/Vol] 12.3 g/dL Normal 11.4-15.2 [facility] Comment on above: Performed By: #### C HM6 #### [facility] (DEFAULT) [address] [place] [address] 16460 MCV (RBC) [Entitic vol] 85.3 fL Normal 79.6-97.7 [facility] Comment on above: Performed By: #### C HM6 #### [facility] (DEFAULT) [address] [address] Mean Cell Hgb 28.3 pg Normal 25.9-33.9 [facility] Comment on above: Performed By: #### C HM6 #### [facility] (DEFAULT) [address] [place] [address] Mean Cell Hgb Conc 33.2 g/dL Normal 31.4-35.9 [facility] Comment on above: Performed By: #### C HM6 #### [facility] (DEFAULT) [address] [place] [address]39 Platelet mean volume (Bld) [Entitic vol] 10.2 fL Normal 8.5-12.2 [facility] Comment on above: Performed By: #### C HM6 #### [facility] (DEFAULT) [address] [place] [address] Platelets (Bld) [#/Vol] 248 10*3/uL Normal 150-393 [facility] Comment on above: Performed By: #### C HM6 #### [facility] (DEFAULT) [address] [place] [address] 18818 RBC (Bld) [#/Vol] 4.35 10*6/uL Normal 3.91-5.04 [facility] Comment on above: Performed By: #### C HM6 #### [facility] (DEFAULT) [address] [place] [address] 23273 RBC Distribution 12.8 % Normal 10.8-14.9 [facility] Comment on above: Performed By: #### C HM6 #### [facility] (DEFAULT) [address] [place] [address]53 WBC (Bld) [#/Vol] 7.15 10*3/uL Normal 3.99-11.19 [facility] Comment on above: Performed By: #### C HM6 #### [facility] (DEFAULT) [address] [place] [address] Erythrocyte distribution width (RBC) [Ratio] 12.8 % 10.8 - 14.9 % [facility] Hematocrit (Bld) [Volume fraction] 37.1 % 34.9 - 44.3 % [facility] Hemoglobin (Bld) [Mass/Vol] 12.3 g/dL 11.4 - 15.2 g/dL [facility] Interpretation and review of laboratory results Normal [facility] MCH (RBC) [Entitic mass] 28.3 pg 25.9 - 33.9 pg [facility] MCHC (RBC) [Mass/Vol] 33.2 g/dL 31.4 - 35.9 g/dL [facility] MCV (RBC) [Entitic vol] 85.3 fL 79.6 - 97.7 fL [facility] Platelet mean volume (Bld) [Entitic vol] 10.2 fL 8.5 - 12.2 fL [facility] Platelets (Bld) [#/Vol] 248 10*3/uL 150 - 393 K/uL [facility] RBC (Bld) [#/Vol] 4.35 10*6/uL [facility] WBC (Bld) [#/Vol] 7.15 10*3/uL 3.99 - 11. 19 K/uL [facility] CHEM 6 (LYTES, BUN CREA)on 0 - Anion gap [Moles/Vol] 15 mmol/L Normal 7-17 [facility] Comment on above: Performed By: #### C HM7 #### [facility] (DEFAULT) [address] [address] Chloride [Moles/Vol] 105 mmol/L Normal 98-108 [facility] Comment on above: Performed By: #### C HM7 #### [facility] (DEFAULT) [address] [address] CO2 [Moles/Vol] 22 mmol/L Normal 21-31 [facility] Comment on above: Performed By: #### C HM7 #### [facility] (DEFAULT) [address] [address] Creatinine [Mass/Vol] 0.69 mg/dL Normal 0.50-1.20 [facility] Comment on above: Performed By: #### C HM7 #### [facility] (DEFAULT) [address] [address] GFR/1.73 sq M.predicted among non-blacks MDRD (S/P/Bld) [Vol rate/Area] 84 mL/min/{1.73_m2} Normal >=60 [facility] Comment on above: Result Comment: Repo rted eGFR is based on the CKD-EPI 2020 equation using creatinine, age, and sex. Performed By: #### C HM7 #### [facility] (DEFAULT) [address] [place] [address] Potassium [Moles/Vol] 4.6 mmol/L Normal 3.5-5.0 [facility] Comment on above: Performed By: #### C HM7 #### [facility] (DEFAULT) [address] [place] [address] Sodium [Moles/Vol] 137 mmol/L Normal 135-145 [facility] Comment on above: Performed By: #### C HM7 #### [facility] (DEFAULT) [address] [place] [address] 17336 Urea nitrogen [Mass/Vol] 29 mg/dL High 7-25 [facility] Comment on above: Performed By: #### C HM7 #### [facility] (DEFAULT) [address] [place] [address]152 Urea nitrogen/Creatinine [Mass ratio] 42 mg/mg Normal [facility] Comment on above: Performed By: #### C HM7 #### [facility] (DEFAULT) [address] [place] [address]407 Anion gap [Moles/Vol] 15 mmol/L 7 - 17 mmol/L [facility] Chloride [Moles/Vol] 105 mmol/L 98 - 10 8 mmol/L [facility] CO2 [Moles/Vol] 22 mmol/L 21 - 31 mmol/L [facility] Creatinine [Mass/Vol] 0.69 mg/dL 0.50 - 1.20 mg/dL [facility] GFR/1.73 sq M.predicted CKD-EPI (S/P/Bld) [Vol rate/Area] 84 - PINF [facility] Comment on above: Reported eGFR is bas ed on the CKD-EPI 2020 equation using creatinine, age, and sex. Interpretation and review of laboratory results Abnormal [facility] Potassium [Moles/Vol] 4.6 mmol/L 3.5 - 5.0 mmol/L [facility] Sodium [Moles/Vol] 137 mmol/L 135 - 145 mmol/L [facility] Urea nitrogen [Mass/Vol] 29 mg/dL High 7 - 25 mg/dL [facility] Urea nitrogen/Creatinine [Mass ratio] 42 mg/mg [facility] Cardiac catheterization stud yon 04-01-2022 [facility] Radiology Study observation (narrative) [facility] Radiology Study observation (narrative) [facility] Cardiac echo study Procedure Ordered By: Antwon Davis on 04-01-2022 Ao peak jay 3.36 m/s [facility] Work Phone: Ao VTI 92.42 cm [facility] Work Phone: AR Max Jay 3.13 m/s [facility] Work Phone: Ascending aorta 3.52 cm [facility] Work Phone: AV LVOT peak gradient 3 mmHg [facility] Work Phone: AV mean gradient 33 mmHg [facility] Work Phone: AV peak gradient 45 mmHG [facility] Work Phone: AV regurgitation pressure 1/2 time 413.34 ms [facility] Work Phone: AV valve area 0.69 cm2 [facility] Work Phone: AV Velocity Ratio 0.25 [facility] Work Phone: LIDIA (continuity Vmax) 0.74 cm2 [facility] Work Phone: LIDIA (continuity VTI) 0.69 cm2 [facility] Work Phone: LIDIA index (continuity Vmax) 0.48 [facility]: LIDIA index (continuity VTI) 0.45 cm2/m2 [facility] Work Phone: Avg e' pk jay 0.06 m/s [facility] Work Phone: Avg E/e' ratio 20.68 [facility] Work Phone: Body surface area Derived from formula 1.54 m2 [facility] Work Phone: BP EF 59 % [facility] Work Phone: DI (Vmax) 0.25 [facility] Work Phone: DI (VTI) 0.23 m/2 [facility] Work Phone: E wave decelartion time 358.42 msec [facility] Work Phone: e' lateral pk jay [facility].0932 [facility]: e' lateral pk jay 0.09 m/s [facility] Work Phone: e' septal pk jay [facility].0331 [facility]: e' septal pk jay 0.03 m/s [facility] Work Phone: E/A ratio 0.81 [facility] Work Phone: E/e' [facility]: [facility]/e' septal [facility] 30.51 [facility]: EF SP 2CH 65 [facility] Work [facility]: EF SP 4CH 54 [facility] Work Phone: EST RAP 3.00 mmHg [facility] Work Phone: EST RVSP 26 mmHg [facility] Work Phone: FS 34 % 28 - 44 % [facility] Work Phone: IVS 1.23 cm [facility] Work Phone: LA AREA 2CH 22.98 cm2 [facility] Work Phone: LA area 4CH 17.03 cm2 [facility] Work Phone: LA ESV BP (MOD) 57 mL [facility] Work Phone: LA ESV BP (MOD) index 37 mL/m2 [facility] Work Phone: LA ESV SP 2CH (MOD) 75 mL [facility] Work Phone: LA ESV SP 4CH (MOD) 42 mL [facility] Work Phone: LV EDV BP 46 mL [facility] Work Phone: LV EDV SP 2CH 46 mL [facility] Work Phone: LV EDV SP 4CH 46 mL [facility] Work Phone: LV ESV BP 19 mL [facility] Work Phone: LV ESV SP 2CH 16 mL [facility] Work Phone: LV ESV SP 4CH 21 mL [facility] Work Phone: LV mass 162.25 g [facility] Work Phone: LV Mass Index 105.4 g/m2 [facility] Work Phone: LV RWT 0.43 [facility] Work Phone: LV stroke volume BP (ml) 27 mL [facility] Work Phone: LV stroke volume index BP 17.53 mL/m2 [facility] Work Phone: LVIDD 4.36 cm [facility] Work Phone: LVIDS 2.86 cm [facility] Work Phone: LVOT area 2.98 cm2 [facility] Work Phone: LVOT diameter 1.95 cm [facility] Work Phone: LVOT peak jay 0.83 m/s [facility] Work Phone: LVOT peak VTI 21.38 cm [facility] Work Phone: LVOT stroke volume 64 cm3 [facility] Work Phone: LVOT stroke volume index 41.44 ml/m2 [facility] Work Phone: MV pk A jay 1.25 m/s [facility] Work Phone: MV pk E jay 1.01 m/s [facility] Work Phone: OSU AV VTI RATIO PRE STRESS 0.23 [facility] Work Phone: [facility]SU ECHO LV BIPLANE SYSTOLIC VOLUME INDEX 12.34 mL/m2 [facility] Work Phone: OSU ECHO LV BP DIASTOLIC VOLUME INDEX 29.87 mL/m2 [facility] Work Phone: PW 0.93 cm [facility] Work Phone: RA area 4CH (MOD) 12.30 cm2 [facility] Work Phone: RA vol index 4CH (MOD) 19.48 mL/m2 [facility] Work Phone: Right atrium volume 4 chamber method of disks 30 mL [facility] Work Phone: RV Area diastolic 17.45 cm2 [facility] Work Phone: RV Area systolic 11.[address] [facility] Work Phone: RV basal diam 3.63 cm [facility] Work Phone: RV Fractional area change 32.4 % [facility] Work Phone: RV long diam 6.57 cm [facility] Work Phone: RV mid diam 2.69 cm [facility] Work Phone: RV S' 17.00 cm/s [facility] Work Phone: RVOT peak gradient 4 [facility] Work Phone: RVOT peak jay 0.97 m/s [facility] Work Phone: RVOT peak VTI 18.68 cm [facility] Work Phone: Sinus 2.71 cm [facility] Work Phone: STJ 2.27 cm [facility] Work Phone: Stroke Volume 64 cm/mL [facility] Work Phone: Stroke volume index 41 [facility] Work Phone: TAPSE 1.65 cm [facility] Work Phone: TR pk grad 23 mmHg [facility] Work Phone: TR pk jay 2.40 m/s [facility] Work Phone: [facility] Work Phone: Cardiac echo study Procedure on [...] study quality was fair. Imaging system used: [employer]. Indications Indications for study: LV function. Wall Scoring Score Index: 1.00 The left ventricular wall motion is normal. [facility] Radiology Study observation (narrative) [facility] ECHOCARDIOGRAMon 04-01-2022 Echocardiography ? Sub-optimal image quality, [...] the original result were not included. Facility [facility] Patient Information Patient Name Finesse Prather Legal [...] Role Read Date Antwon Davis MD Echo Simpson 04/01/2022 Wall Scoring Score Index: 1.00 The [...] RAP 3 (more content not included)... Normal [facility] GLUCOSE POCon 04-01-2022 Glucose [Mass/Vol] 199 mg/dL High 70 - 99 mg/dL [facility] Interpretation and review of laboratory results Abnormal [facility] POC Sample Type CAPBL [facility] Test performed at address of the patient encounter. [facility] Glucose [Mass/Vol] 129 mg/dL High 70 - 99 mg/dL [facility] Interpretation and review of laboratory results Abnormal [facility] POC Sample Type CAPBL [facility] Test performed [facility] the [facility] Glucose [Mass/Vol] 176 mg/dL High 70 - 99 mg/dL [facility] Interpretation and review of laboratory results Abnormal [facility] POC Sample Type CAPBL [facility] Test performed at address of the patient encounter. [facility] Glucose [Mass/Vol] 159 mg/dL High 70 - 99 mg/dL [facility] Interpretation and review of laboratory results Abnormal [facility] POC Sample Type CAPBL [facility] Test performed at address of the patient encounter. [facility] HEMOGLOBIN [id number] By: Stephen Sneed on 04-01-2022 Average glucose Estimated from glycated hemoglobin (Bld) [Mass/Vol] 148 mg/dL [facility] HbA1c (Bld) [Mass fraction] 6.8 % High 4.7 - 5.6 % [facility] Interpretation and review of laboratory results Abnormal [facility] HEMOGLOBIN A1Con 04-01-2022 Glucose [Mass/Vol] 148 mg/dL Normal [facility] Comment on above: Performed By: #### C HM6 #### [facility] (DEFAULT) [address] [place] [address] HbA1c (Bld) [Mass fraction] 6.8 % High 4.7-5.6 [facility] Comment on above: Performed By: #### C HM6 #### [facility] (DEFAULT) [address] [place] [id number] LIPID PANEL W CALCULATED LDL on 04-01-2022 Cholesterol [Mass/Vol] 238 mg/dL High NINF - 200 mg/dL [facility] Comment on above: [<200 mg/dL: Desirab le] [200-239 mg/dL: Borderline High] [>239 mg/dL: High] Cholesterol in HDL [Mass/Vol] 40 mg/dL 40 - PINF mg/dL [facility] Comment on above: [<40 mg/dL: Low (Hig h Risk)] [>59 mg/dL: High (Low Risk)] Cholesterol in HDL [Mass/Vol] 198 mg/dL High NINF - 130 mg/dL [facility] Cholesterol in LDL [Mass/Vol] 169 mg/dL High 0 - 99 mg/dL [facility] Comment on above: [<100 mg/dL: Optimal ] [100-129 mg/dL: Near Optimal] [130-159 mg/dL: Borderline High] [160-189 mg/dL: High] [>189 mg/dL: Very High] Cholesterol.total/Cho lesterol in HDL [Mass ratio] 6.0 {ratio} High NINF - 4.5 [facility] Interpretation and review of laboratory results Abnormal [facility] Triglyceride [Mass/Vol] 143 mg/dL NINF - 150 mg/dL [facility] Comment on above: [<150 mg/dL: Desirab le] [150-199 mg/dL: Borderline] [200-499 mg/dL: High] [>500 mg/dL: Very High] [facility] Calculated LDL Cholesterol 169 mg/dL High 0-99 [facility] Comment on above: Result Comment: [<10 0 mg/dL: Optimal] [100-129 mg/dL: Near Optimal] [130-159 mg/dL: Borderline High] [160-189 mg/dL: High] [>189 mg/dL: Very High] Performed By: #### C HM7 #### [facility] (DEFAULT) [address] [address] Cholesterol [Mass/Vol] 238 mg/dL High <200 [facility] Comment on above: Result Comment: [<20 0 mg/dL: Desirable] [200-239 mg/dL: Borderline High] [>239 mg/dL: High] Performed By: #### C HM7 #### [facility] (DEFAULT) [address] [place] [address] Cholesterol in HDL [Mass/Vol] 40 mg/dL Normal >=40 [facility] Comment on above: Result Comment: [<40 mg/dL: Low (High Risk)] [>59 mg/dL: High (Low Risk)] Performed By: #### C HM7 #### [facility] (DEFAULT) [address] [place] [address] Non HDL Cholesterol 198 mg/dL High <130 [facility] Comment on above: Performed By: #### C HM7 #### [facility] (DEFAULT) [address] [place] [address]013 Total Cholesterol/HDL Ratio 6.0 High <4.5 [facility] Comment on above: Performed By: #### C HM7 #### [facility] (DEFAULT) [address] [place] [address] Triglyceride [Mass/Vol] 143 mg/dL Normal <150 [facility] Comment on above: Result Comment: [<15 0 mg/dL: Desirable] [150-199 mg/dL: Borderline] [200-499 mg/dL: High] [>500 mg/dL: Very High] Performed By: #### C HM7 #### [facility] (DEFAULT) [address] [place] [address]09 PT,INR,PTTon 04-01-2022 aPTT Coag (Bld) [Time] 52.8 s High 24.0-34.3 [facility] Comment on above: Performed By: #### X M #### [facility] (DEFAULT) [address] [place] [id number] INR Coag (PPP) [Relative time] 1.0 {INR} Normal 0.9-1.1 [facility] Comment on above: Performed By: #### X M #### [facility] (DEFAULT) [address] [place] [address] PT Coag (PPP) [Time] 13.7 s Normal 11.9-14.2 [facility] Comment on above: Performed By: #### X M #### [facility] (DEFAULT) [address] [place] [address]6795 PT,INR,PTTOrdered By: Hieu Mccain on 04-01-2022 aPTT Coag (PPP) [Time] 52.8 s High [facility] INR Coag (Bld) [Relative time] 1.0 {INR} 0.9 - 1.1 [facility] Interpretation and review of laboratory results Abnormal [facility] PT Coag (PPP) [Time] 13.7 s [facility] PTTon 04-01-2022 aPTT Coag (Bld) [Time] 81.3 s High 24.0-34.3 [facility] Comment on above: Order Comment: Acute Coronary Syndrome (ACS): Initial Evaluation and Management: [email or web address] %[email or web address]%[email or web address]#[email or web address] Performed By: #### L ABHSTI1 #### [facility] (DEFAULT) [address] [address] aPTT Coag (PPP) [Time] 81.3 s High [facility] Interpretation and review of laboratory results Abnormal [facility] SCREEN: MRSA/MSSAOrdered By: Jacobo Louis on 04-01-2022 Interpretation and review of laboratory results Normal [facility] Methicillin Resistant S. Aureus By Pcr Negative Negative [facility] Staphylococcus Aureus By Pcr Negative Negative [facility] This test was performed using a real [...] by the [facility] at [facility]. It has not been cleared or approved by the FDA.The laboratory is regulated under CLIA as qualified to perform high-complexity testing. This test is used for clinical purposes. It should not be regarded as investigational or for research. [facility] SCREEN: MRSA/MSSAon 04-01-19 Methicillin Resistant S. Aureus By Pcr Negative Normal Negative [facility] Comment on above: Order Comment: Colle [...] by the [facility] at [facility]. It has not been cleared or approved by the FDA.The laboratory is regulated under CLIA as qualified to perform high-complexity testing. This test is used for clinical purposes. It should not be regarded as investigational or for research. Performed By: #### S CRSB #### [facility] (DEFAULT) [address] [address] Staphylococcus Aureus By Pcr Negative Normal Negative [facility] Comment on above: Order Comment: Colle [...] by the [facility] at [facility]. It has not been cleared or approved by the FDA.The laboratory is regulated under CLIA as qualified to perform high-complexity testing. This test is used for clinical purposes. It should not be regarded as investigational or for research. Performed By: #### S CRSB #### [facility] (DEFAULT) [address] [address] CHEM 6 (LYTES, BUN CREA)on 0 03-31-2022 Anion gap [Moles/Vol] 11 mmol/L Normal 7-17 [facility] Comment on above: Performed By: #### C HM6 #### [facility] (DEFAULT) [address] [address] Chloride [Moles/Vol] 105 mmol/L Normal 98-108 [facility] Comment on above: Performed By: #### C HM6 #### [facility] (DEFAULT) [address] [place] [phone] CO2 [Moles/Vol] 27 mmol/L Normal 21-31 [facility] Comment on above: Performed By: #### C HM6 #### [facility] (DEFAULT) [address] [place] [address] Creatinine [Mass/Vol] 0.69 mg/dL Normal 0.50-1.20 [facility] Comment on above: Performed By: #### C HM6 #### [facility] (DEFAULT) [address] [place] [address] GFR/1.73 sq M.predicted among non-blacks MDRD (S/P/Bld) [Vol rate/Area] 84 mL/min/{1.73_m2} Normal >=60 [facility] Comment on above: Result Comment: Repo rted eGFR is based on the CKD-EPI 2020 equation using creatinine, age, and sex. Performed By: #### C HM6 #### [facility] (DEFAULT) [address] [place] [address] Potassium [Moles/Vol] 4.3 mmol/L Normal 3.5-5.0 [facility] Comment on above: Performed By: #### C HM6 #### [facility] (DEFAULT) [address] [place] [address]340 Sodium [Moles/Vol] 139 mmol/L Normal 135-145 [facility] Comment on above: Performed By: #### C HM6 #### [facility] (DEFAULT) [address] [place] [address] Urea nitrogen [Mass/Vol] 26 mg/dL High 7-25 [facility] Comment on above: Performed By: #### C HM6 #### [facility] (DEFAULT) [address] [place] [address] Urea nitrogen/Creatinine [Mass ratio] 38 mg/mg Normal [facility] Comment on above: Performed By: #### C HM6 #### [facility] (DEFAULT) [address] [place] [address] Anion gap [Moles/Vol] 11 mmol/L 7 - 17 mmol/L [facility] Chloride [Moles/Vol] 105 mmol/L 98 - 10 8 mmol/L [facility] CO2 [Moles/Vol] 27 mmol/L 21 - 31 mmol/L [facility] Creatinine [Mass/Vol] 0.69 mg/dL 0.50 - 1.20 mg/dL [facility] GFR/1.73 sq M.predicted CKD-EPI (S/P/Bld) [Vol rate/Area] 84 - PINF [facility] Comment on above: Reported eGFR is bas ed on the CKD-EPI 2020 equation using creatinine, age, and sex. Interpretation and review of laboratory results Abnormal [facility] Potassium [Moles/Vol] 4.3 mmol/L 3.5 - 5.0 mmol/L [facility] Sodium [Moles/Vol] 139 mmol/L 135 - 145 mmol/L [facility] Urea nitrogen [Mass/Vol] 26 mg/dL High 7 - 25 mg/dL [facility] Urea nitrogen/Creatinine [Mass ratio] 38 mg/mg [facility] CONTINUOUS CARDIAC MONITORIN G STRIPon 03-31-2022 [facility] GLUCOSE POCon 03-31-2022 Glucose [Mass/Vol] 136 mg/dL High 70 - 99 mg/dL [facility] Interpretation and review of laboratory results Abnormal [facility] POC Sample Type CAPBL [facility] Test performed at address of the patient encounter. [facility] Glucose [Mass/Vol] 105 mg/dL High 70 - 99 mg/dL [facility] Interpretation and review of laboratory results Abnormal [facility] POC Sample Type CAPBL [facility] Test performed at address of the patient encounter. [facility] Glucose [Mass/Vol] 120 mg/dL High 70 - 99 mg/dL [facility] Interpretation and review of laboratory results Abnormal [facility] POC Sample Type CAPBL [facility] Test performed at address of the patient encounter. [facility] Glucose [Mass/Vol] 180 mg/dL High 70 - 99 mg/dL [facility] Interpretation and review of laboratory results Abnormal [facility] POC Sample Type CAPBL [facility] Test performed at address of the patient encounter. [facility] PTTon 03-31-2022 aPTT Coag (Bld) [Time] 74.4 s High 24.0-34.3 [facility] Comment on above: Order Comment: Acute Coronary Syndrome (ACS): Initial Evaluation and Management: [email or web address]/Acute %20Coronary%20Syndrome.pdf#search=troponin Performed By: #### L ABHSTI1 #### [facility] (DEFAULT) [address] [address] aPTT Coag (PPP) [Time] 74.4 s High [facility] Interpretation and review of laboratory results Abnormal [facility] aPTT Coag (Bld) [Time] 60.3 s High 24.0-34.3 [facility] Comment on above: Order Comment: After [...] instructions. Performed By: #### X M #### [facility] (DEFAULT) [address] [place] [address] aPTT Coag (PPP) [Time] 60.3 s High [facility] Interpretation and review of laboratory results Abnormal [facility] aPTT Coag (Bld) [Time] 83.9 s High 24.0-34.3 [facility] Comment on above: Order Comment: After [...] instructions. Performed By: #### T YPEC #### [facility] (DEFAULT) [address] [address] aPTT Coag (PPP) [Time] 83.9 s High [facility] Interpretation and review of laboratory results Abnormal [facility] US.doppler Carotid arteries - bilateralOrdered By: Ryley Allison on 03-31-2022 [facility] Work Phone: CONTINUOUS CARDIAC MONITORIN G STRIPon 03-30-2022 [facility] GLUCOSE POCon 03-30-2022 Glucose [Mass/Vol] 192 mg/dL High 70 - 99 mg/dL [facility] Interpretation and review of laboratory results Abnormal [facility] POC Sample Type CAPBL [facility] Test performed at address of the patient encounter. [facility] Glucose [Mass/Vol] 221 mg/dL High 70 - 99 mg/dL [facility] Interpretation and review of laboratory results Abnormal [facility] POC Sample Type CAPBL [facility] Test performed at address of the patient encounter. [facility] Glucose [Mass/Vol] 184 mg/dL High 70 - 99 mg/dL [facility] Comment on above: Notified RNread back Interpretation and review of laboratory results Abnormal [facility] POC Sample Type CAPBL [facility] Test performed at address of the patient encounter. [facility] Glucose [Mass/Vol] 167 mg/dL High 70 - 99 mg/dL [facility] Comment on above: Notified RNread back Interpretation and review of laboratory results Abnormal [facility] POC Sample Type CAPBL [facility] Test performed at address of the patient encounter. [facility] Glucose [Mass/Vol] 171 mg/dL High 70 - 99 mg/dL [facility] Interpretation and review of laboratory results Abnormal [facility] POC Sample [facility] Test performed at address of the patient encounter. [facility] PTTon 03-30-2022 aPTT Coag (Bld) [Time] 81.9 s High 24.0-34.3 [facility] Comment on above: Order Comment: After [...] administration instructions. Performed By: #### P TT ####[facility] (DEFAULT)[address] [place] [address] aPTT Coag (PPP) [Time] 81.9 s High [facility] Interpretation and review of laboratory results Abnormal [facility] aPTT Coag (Bld) [Time] 56.4 s High 24.0-34.3 [facility] Comment on above: Order Comment: After [...] instructions. Performed By: #### X M #### [facility] (DEFAULT) [address] [address] aPTT Coag (PPP) [Time] 56.4 s High [facility] Interpretation and review of laboratory results Abnormal [facility] aPTT Coag (Bld) [Time] 57.0 s High 24.0-34.3 [facility] Comment on above: Order Comment: After [...] results Performed By: #### C HM6 #### [facility] (DEFAULT) [address] [address] PTTOrdered By: Ralf meza on 03-30-2022 aPTT Coag (PPP) [Time] 57.0 s High [facility] Comment on above: Specimen integrity nancy jolly. Results inconsistent with previous results Interpretation and review of laboratory results Abnormal [facility] US.doppler Carotid arteries - bilateralon 03-30-2022 Radiology Study observation (narrative) [facility] XR PANOREX (TEETH)on 023 XR PANOREX (TEETH) [...] periapical radiolucencies at the remaining dentition. Normal [facility] XR Teeth Bitewing Viewson FINDINGS/IMPRESSION: Nasal [...] or periapical radiolucencies at the remaining dentition. [facility] Radiology Study observation (narrative) [facility] XR Teeth Bitewing ViewsOrder ed By: Domenic Stoner on 03-30-2022 [facility] Work Phone: CALCIUMon 03-29-2022 Calcium [Mass/Vol] 9.1 mg/dL Normal 8.6-10.5 [facility] Comment on above: Performed By: #### S CRSB #### [facility] (DEFAULT) [address] [place] [address] Calcium [Mass/Vol] 9.1 mg/dL 8.6 - 10. 5 mg/dL [facility] CBC AND ELECTRONIC DIFFon Basophils (Bld) [#/Vol] 0.06 10*3/uL Normal 0.00-0.15 [facility] Comment on above: Performed By: #### L AB980 ####[facility] (DEFAULT)[address] [place] [address] Basophils/100 WBC (Bld) 0.8 % Normal [facility] Comment on above: Performed By: #### L AB980 ####[facility] (DEFAULT)[address] [place] [address] DIFF STATUS Electronic Differential Normal [facility] Comment on above: Performed By: #### L AB980 ####[facility] (DEFAULT)[address] [place] [address] Eosinophils (Bld) [#/Vol] 0.32 10*3/uL Normal 0.00-0.42 [facility] Comment on above: Performed By: #### L AB980 ####[facility] (DEFAULT)[address] [place] [address] Eosinophils/100 WBC (Bld) 4.2 % Normal [facility] Comment on above: Performed By: #### L AB980 ####[facility] (DEFAULT)[address] [place] [address] Hematocrit (Bld) [Volume fraction] 39.9 % Normal 34.9-44.3 [facility] Comment on above: Performed By: #### L AB980 ####[facility] (DEFAULT)[address] [facility] [place] [address] Hemoglobin (Bld) [Mass/Vol] 13.1 g/dL Normal 11.4-15.2 [facility] Comment on above: Performed By: #### L AB980 ####[facility] (DEFAULT)[address] [place], [place] [address], [place] [address] Immature Grans % 0.4 % Normal [facility] Comment on above: Performed By: #### L AB980 ####[facility] (DEFAULT)[address] [place] [address], [place] [address] Immature Grans Absolute < Normal <=0.08 [facility] Comment on above: Performed By: #### L AB980 ####[facility] (DEFAULT)[address] [place] [address], [place] [address] Lymphocytes (Bld) [#/Vol] 2.52 10*3/uL Normal 1.16-3.51 [facility] Comment on above: Performed By: #### L AB980 ####[facility] (DEFAULT)[address] [place] [address], [place] [address] Lymphocytes/100 WBC (Bld) 33.2 % Normal [facility] Comment on above: Performed By: #### L AB980 ####[facility] (DEFAULT)[address] [place] [address], [place] [address] MCV (RBC) [Entitic vol] 85.8 fL Normal 79.6-97.7 [facility] Comment on above: Performed By: #### L AB980 ####[facility] (DEFAULT)[address] [facility] [place] [address] Mean Cell Hgb 28.2 pg Normal 25.9-33.9 [facility] Comment on above: Performed By: #### L AB980 ####[facility] (DEFAULT)[address] [place] [address] Mean Cell Hgb Conc 32.8 g/dL Normal 31.4-35.9 [facility] Comment on above: Performed By: #### L AB980 ####[facility] (DEFAULT)[address] [place] [address] Monocytes (Bld) [#/Vol] 0.84 10*3/uL Normal 0.22-0.87 [facility] Comment on above: Performed By: #### L AB980 ####[facility] (DEFAULT)[address] [facility] [place] [address] Monocytes/100 WBC (Bld) 11.1 % Normal [facility] Comment on above: Performed By: #### L AB980 ####[facility] (DEFAULT)[address] [facility] [place] [address] Nucleated RBC 0.0 /100 WBC Normal <=0.2 [facility] Comment on above: Performed By: #### L AB980 ####[facility] (DEFAULT)[address] [facility] [place] [address] Platelet mean volume (Bld) [Entitic vol] 10.4 fL Normal 8.5-12.2 [facility] Comment on above: Performed By: #### L AB980 ####[facility] (DEFAULT)[address] [facility] [place] [address] Platelets (Bld) [#/Vol] 267 10*3/uL Normal 150-393 [facility] Comment on above: Performed By: #### L AB980 ####[facility] (DEFAULT)[address] [facility] [place] [address] RBC (Bld) [#/Vol] 4.65 10*6/uL Normal 3.91-5.04 [facility] Comment on above: Performed By: #### L AB980 ####[facility] (DEFAULT)[address] [place] [address] RBC Distribution 13.0 % Normal 10.8-14.9 [facility] Comment on above: Performed By: #### L AB980 ####[facility] (DEFAULT)[address] [place] [address] Segs + Bands Auto 50.3 % Normal [facility] Comment on above: Performed By: #### L AB980 ####[facility] (DEFAULT)[address] [facility] [place] [address] Segs + Bands,Absolute Auto 3.81 K/uL Normal 1.64-7.28 [facility] Comment on above: Performed By: #### L AB980 ####[facility] (DEFAULT)[address] [facility] [place] [address] WBC (Bld) [#/Vol] 7.58 10*3/uL Normal 3.99-11.19 [facility] Comment on above: Performed By: #### L AB980 ####[facility] (DEFAULT)[address] [place] [address] Basophils (Bld) [#/Vol] 0.06 10*3/uL 0.00 - 0.15 K/uL [facility] Basophils/100 WBC (Bld) 0.8 % [facility] Differential cell count method Nom (Bld) Electronic Differential [facility] Eosinophils (Bld) [#/Vol] 0.32 10*3/uL 0.00 - 0.42 K/uL [facility] Eosinophils/100 WBC (Bld) 4.2 % [facility] Erythrocyte distribution width (RBC) [Ratio] 13.0 % 10.8 - 14.9 % [facility] Hematocrit (Bld) [Volume fraction] 39.9 % 34.9 - 44.3 % [facility] Hemoglobin (Bld) [Mass/Vol] 13.1 g/dL 11.4 - 15.2 g/dL [facility] Immature granulocytes (Bld) [#/Vol] K/uL NINF - 0.08 K/uL [facility] Immature granulocytes/100 WBC (Bld) 0.4 % [facility] Lymphocytes (Bld) [#/Vol] 2.52 10*3/uL 1.16 - 3.51 K/uL [facility] Lymphocytes/100 WBC (Bld) 33.2 % [facility] MCH (RBC) [Entitic mass] 28.2 pg 25.9 - 33.9 pg [facility] MCHC (RBC) [Mass/Vol] 32.8 g/dL 31.4 - 35.9 g/dL [facility] MCV (RBC) [Entitic vol] 85.8 fL 79.6 - 97.7 fL [facility] Monocytes (Bld) [#/Vol] 0.84 10*3/uL 0.22 - 0.87 K/uL [facility] Monocytes/100 WBC (Bld) 11.1 % [facility] Neutrophils (Bld) [#/Vol] 3.81 10*3/uL 1.64 - 7.28 K/uL [facility] Nucleated RBC/100 WBC (Bld) [Ratio] 0.0 % [facility] Platelet mean volume (Bld) [Entitic vol] 10.4 fL 8.5 - 12.2 fL [facility] Platelets (Bld) [#/Vol] 267 10*3/uL 150 - 393 K/uL [facility] RBC (Bld) [#/Vol] 4.65 10*6/uL [facility] Segmented neutrophils/100 WBC (Bld) 50.3 % [facility] WBC (Bld) [#/Vol] 7.58 10*3/uL 3.99 - 11. 19 K/uL [facility] CBC,PLATELETSon 03-29-2022 Hematocrit (Bld) [Volume fraction] 36.3 % Normal 34.9-44.3 [facility] Comment on above: Performed By: #### C [facility] #### [facility] (DEFAULT) [address] [address] Hemoglobin (Bld) [Mass/Vol] 12.0 g/dL Normal 11.4-15.2 [facility] Comment on above: Performed By: #### C HM7 #### [facility] (DEFAULT) [address] [address] MCV (RBC) [Entitic vol] 86.4 fL Normal 79.6-97.7 [facility] Comment on above: Performed By: #### C HM7 #### [facility] (DEFAULT) [address] [address] Mean Cell Hgb 28.6 pg Normal 25.9-33.9 [facility] Comment on above: Performed By: #### C HM7 #### [facility] (DEFAULT) [address] [address] Mean Cell Hgb Conc 33.1 g/dL Normal 31.4-35.9 [facility] Comment on above: Performed By: #### C HM7 #### [facility] (DEFAULT) [address] [address] Platelet mean volume (Bld) [Entitic vol] 10.5 fL Normal 8.5-12.2 [facility] Comment on above: Performed By: #### C HM7 #### [facility] (DEFAULT) [address] [address] Platelets (Bld) [#/Vol] 233 10*3/uL Normal 150-393 [facility] Comment on above: Performed By: #### C HM7 #### [facility] (DEFAULT) [address] [address] RBC (Bld) [#/Vol] 4.20 10*6/uL Normal 3.91-5.04 [facility] Comment on above: Performed By: #### C HM7 #### [facility] (DEFAULT) [address] [place] [address] RBC Distribution 12.9 % Normal 10.8-14.9 [facility] Comment on above: Performed By: #### C HM7 #### [facility] (DEFAULT) [address] [place] [address] WBC (Bld) [#/Vol] 7.07 10*3/uL Normal 3.99-11.19 [facility] Comment on above: Performed By: #### C HM7 #### [facility] (DEFAULT) [address] [place] [address] Erythrocyte distribution width (RBC) [Ratio] 12.9 % 10.8 - 14.9 % [facility] Hematocrit (Bld) [Volume fraction] 36.3 % 34.9 - 44.3 % [facility] Hemoglobin (Bld) [Mass/Vol] 12.0 g/dL 11.4 - 15.2 g/dL [facility] Interpretation and review of laboratory results Normal [facility] MCH (RBC) [Entitic mass] 28.6 pg 25.9 - 33.9 pg [facility] MCHC (RBC) [Mass/Vol] 33.1 g/dL 31.4 - 35.9 g/dL [facility] MCV (RBC) [Entitic vol] 86.4 fL 79.6 - 97.7 fL [facility] Platelet mean volume (Bld) [Entitic vol] 10.5 fL 8.5 - 12.2 fL [facility] Platelets (Bld) [#/Vol] 233 10*3/uL 150 - 393 K/uL [facility] RBC (Bld) [#/Vol] 4.20 10*6/uL [facility] WBC (Bld) [#/Vol] 7.07 10*3/uL 3.99 - 11. 19 K/uL [facility] CHEM 7 (LYTES,BUN,CREA,GLUC) on 03-29-2022 Anion gap [Moles/Vol] 12 mmol/L Normal 7-17 [facility] Comment on above: Performed By: #### S CRSB #### [facility] (DEFAULT) [address] [place] [address] Chloride [Moles/Vol] 104 mmol/L Normal 98-108 [facility] Comment on above: Performed By: #### S CRSB #### [facility] (DEFAULT) [address] [place] [address] CO2 [Moles/Vol] 27 mmol/L Normal 21-31 [facility] Comment on above: Performed By: #### S CRSB #### [facility] (DEFAULT) [address] [place] [address] Creatinine [Mass/Vol] 0.75 mg/dL Normal 0.50-1.20 [facility] Comment on above: Performed By: #### S CRSB #### [facility] (DEFAULT) [address] [place] [address] GFR/1.73 sq M.predicted among non-blacks MDRD (S/P/Bld) [Vol rate/Area] 77 mL/min/{1.73_m2} Normal >=60 [facility] Comment on above: Result Comment: Repo rted eGFR is based on the CKD-EPI 2020 equation using creatinine, age, and sex. Performed By: #### S CRSB #### [facility] (DEFAULT) [address] [place] [address] Glucose [Mass/Vol] 263 mg/dL High 70-99 [facility] Comment on above: Performed By: #### S CRSB #### [facility] (DEFAULT) [address] [place] [address]98 Osmolality [Osmolality] 308 mosm/kg High 278-305 [facility] Comment on above: Performed By: #### S CRSB #### [facility] (DEFAULT) [address] [place] [address] Potassium [Moles/Vol] 4.0 mmol/L Normal 3.5-5.0 [facility] Comment on above: Performed By: #### S CRSB #### [facility] (DEFAULT) [address] [place] [address] Sodium [Moles/Vol] 139 mmol/L Normal 135-145 [facility] Comment on above: Performed By: #### S CRSB #### [facility] (DEFAULT) [address] [place] [address] 23467 Urea nitrogen [Mass/Vol] 32 mg/dL High 7-25 [facility] Comment on above: Performed By: #### S CRSB #### [facility] (DEFAULT) [address] [place] [address]995 Urea nitrogen/Creatinine [Mass ratio] 43 mg/mg Normal [facility] Comment on above: Performed By: #### S CRSB #### [facility] (DEFAULT) [address] [place] [address] Anion gap [Moles/Vol] 12 mmol/L 7 - 17 mmol/L [facility] Chloride [Moles/Vol] 104 mmol/L 98 - 10 8 mmol/L [facility] CO2 [Moles/Vol] 27 mmol/L 21 - 31 mmol/L [facility] Creatinine [Mass/Vol] 0.75 mg/dL 0.50 - 1.20 mg/dL [facility] GFR/1.73 sq M.predicted CKD-EPI (S/P/Bld) [Vol rate/Area] 77 - PINF [facility] Comment on above: Reported eGFR is bas ed on the CKD-EPI 2020 equation using creatinine, age, and sex. Glucose [Mass/Vol] 263 mg/dL High 70 - 99 mg/dL [facility] Osmolality Calc [Osmolality] 308 High [facility] Potassium [Moles/Vol] 4.0 mmol/L 3.5 - 5.0 mmol/L [facility] Sodium [Moles/Vol] 139 mmol/L 135 - 145 mmol/L [facility] Urea nitrogen [Mass/Vol] 32 mg/dL High 7 - 25 mg/dL [facility] Urea nitrogen/Creatinine [Mass ratio] 43 mg/mg [facility] CONTINUOUS CARDIAC MONITORIN G STRIPon 03-29-2022 [facility] GLUCOSE POCon 03-29-2022 Glucose [Mass/Vol] 148 mg/dL High 70 - 99 mg/dL [facility] Interpretation and review of laboratory results Abnormal [facility] POC Sample Type CAPBL [facility] Test performed at address of the patient encounter. [facility] Glucose [Mass/Vol] 179 mg/dL High 70 - 99 mg/dL [facility] Interpretation and review of laboratory results Abnormal [facility] POC Sample Type CAPBL [facility] Test performed at address of the patient encounter. [facility] Glucose [Mass/Vol] 145 mg/dL High 70 - 99 mg/dL [facility] Interpretation and review of laboratory results Abnormal [facility] POC Sample Type CAPBL [facility] Test performed at address of the patient encounter. [facility] HEPATIC FUNCTION PANELon Albumin [Mass/Vol] 3.6 g/dL Normal 3.5-5.0 [facility] Comment on above: Performed By: #### S CRSB #### [facility] (DEFAULT) [address] [address] ALP [Catalytic activity/Vol] 66 U/L Normal 32-126 [facility] Comment on above: Performed By: #### S CRSB #### [facility] (DEFAULT) [address] [address] ALT [Catalytic activity/Vol] 29 U/L Normal 9-48 [facility] Comment on above: Performed By: #### S CRSB #### [facility] (DEFAULT) [address] [place] [address] AST [Catalytic activity/Vol] 24 U/L Normal 10-39 [facility] Comment on above: Performed By: #### S CRSB #### [facility] (DEFAULT) [address] [place] [address] Bilirubin [Mass/Vol] 0.4 mg/dL Normal <1.5 [facility] Comment on above: Performed By: #### S CRSB #### [facility] (DEFAULT) [address] [place] [address] Bilirubin Direct < Normal <0.3 [facility] Comment on above: Performed By: #### S CRSB #### [facility] (DEFAULT) [address] [place] [address] Protein [Mass/Vol] 5.8 g/dL Low 6.4-8.3 [facility] Comment on above: Performed By: #### S CRSB #### [facility] (DEFAULT) [address] [place] [address] Albumin [Mass/Vol] 3.6 g/dL 3.5 - 5.0 g/dL [facility] ALP [Catalytic activity/Vol] 66 U/L 32 - 126 U/L [facility] ALT [Catalytic activity/Vol] 29 U/L 9 - 48 U/L [facility] AST [Catalytic activity/Vol] 24 U/L 10 - 39 U/L [facility] Bilirubin [Mass/Vol] 0.4 mg/dL NINF - 1.5 mg/dL [facility] Bilirubin.direct [Mass/Vol] mg/dL NINF - 0.3 mg/dL [facility] Protein [Mass/Vol] 5.8 g/dL Low 6.4 - 8.3 g/dL [facility] HIGH SENSITIVITY TROPONIN I - SINGLE ORDERon 03-29-2022 hs-Troponin I 73 ng/L High <34 [facility] Comment on above: Order Comment: Acute Coronary Syndrome (ACS): Initial Evaluation and Management:[email or web address]/Guide lines/Acute%20Coronary%20Syndrome.pdf#search=[email or web address] Performed By: #### L ABHSTI1 ####[facility] (DEFAULT)[address] [address] hs-Troponin I 101 ng/L High <34 [facility] Comment on above: Order Comment: Colle [...] by the Clinical Microbiology Laboratory at [facility]. It has not been cleared or approved by the FDA.The laboratory is regulated under CLIA as qualified to perform high-complexity testing. This test is used for clinical purposes. It should not be regarded as investigational or for research. Performed By: #### S CRSB #### [facility] (DEFAULT) [address] [place] [address] HIGH SENSITIVITY TROPONIN I - SINGLE ORDEROrdered By: Maegan Recio on 03-29-2022 Interpretation and review of laboratory results Abnormal [facility] Troponin I.cardiac DL <= 0.01 ng/mL [Mass/Vol] 73 ng/L High NINF - 34 ng/L [facility] HIGH SENSITIVITY TROPONIN I - SINGLE ORDEROrdered By: Steve Barry on 03-29-2022 Interpretation and review of laboratory results Abnormal [facility] Troponin I.cardiac DL <= 0.01 ng/mL [Mass/Vol] 101 ng/L High NINF - 34 ng/L [facility] MAGNESIUMon 03-29-2022 Magnesium [Mass/Vol] 2.0 mg/dL Normal 1.6-2.6 [facility] Comment on above: Order Comment: Medic ine Electrolyte Replacement Protocol: Check prior to replacing potassium. Recheck magnesium level eight (8) hours after each 4g Magnesium Sulfate dose if most recent magnesium level is less than 1.3 mg/dL. ?Draw with next day morning labs after replacements for previous magnesium levels between 1.3-1.9 mg/dL. Performed By: #### C HM6 #### [facility] (DEFAULT) [address] [place] [address] Magnesium [Mass/Vol] 2.0 mg/dL 1.6 - 2 .6 mg/dL [facility] Magnesium [Mass/Vol] 2.1 mg/dL Normal 1.6-2.6 [facility] Comment on above: Performed By: #### S CRSB #### [facility] (DEFAULT) [address] [place] [address] Magnesium [Mass/Vol] 2.1 mg/dL 1.6 - 2 .6 mg/dL [facility] No Panel Informationon 03-29 Interpretation and review of laboratory results Normal [facility] Interpretation and review of laboratory results Normal [facility] Interpretation and review of laboratory results Abnormal [facility] PHOSPHATE, INORGANICon 03-29 Phosphorous 3.9 mg/dL Normal 2.2-4.6 [facility] Comment on above: Performed By: #### S CRSB #### [facility] (DEFAULT) [address] [place] [address] Phosphate [Mass/Vol] 3.9 mg/dL 2.2 - 4 .6 mg/dL [facility] POTASSIUMon 03-29-2022 Potassium [Moles/Vol] 4.6 mmol/L Normal 3.5-5.0 [facility] Comment on above: Order Comment: Medic ine Electrolyte Replacement Protocol: Recheck eight hours after each dose of Potassium chloride (60 mEq or 80 mEq) if most recent Potassium is less than 3.5 mmol/L. ?Draw with next day morning labs after 40 mEq dose of Potassium chloride. Performed By: #### C HM6 #### [facility] (DEFAULT) [address] [place] [address] Potassium [Moles/Vol] 4.6 mmol/L 3.5 - 5.0 mmol/L [facility] PT,INR,PTTon 03-29-2022 aPTT Coag (Bld) [Time] 28.1 s Normal 24.0-34.3 [facility] Comment on above: Performed By: #### C HM6 #### [facility] (DEFAULT) [address] [place] [address] INR Coag (PPP) [Relative time] 1.0 {INR} Normal 0.9-1.1 [facility] Comment on above: Performed By: #### C HM6 #### [facility] (DEFAULT) [address] [place] [address] PT Coag (PPP) [Time] 12.8 s Normal 11.9-14.2 [facility] Comment on above: Performed By: #### C HM6 #### [facility] (DEFAULT) [address] [place] [address] aPTT Coag (PPP) [Time] 28.1 s [facility] INR Coag (Bld) [Relative time] 1.0 {INR} 0.9 - 1.1 [facility] Interpretation and review of laboratory results Normal [facility] PT Coag (PPP) [Time] 12.8 s [facility] PTTon 03-29-2022 aPTT Coag (Bld) [Time] 27.1 s Normal 24.0-34.3 [facility] Comment on above: Order Comment: Colle [...] by the Clinical Microbiology Laboratory at [facility]. It has not been cleared or approved by the FDA.The laboratory is regulated under CLIA as qualified to perform high-complexity testing. This test is used for clinical purposes. It should not be regarded as investigational or for research. Performed By: #### S CRSB #### [facility] (DEFAULT) [address] [address] aPTT Coag (PPP) [Time] 27.1 s [facility] Interpretation and review of laboratory results Normal [facility] TROPONIN 1 HOURon 03-29-2022 1 Hour hs-Troponin 77 ng/L High <34 [facility] Comment on above: Order Comment: Acute Coronary Syndrome (ACS): Initial Evaluation and Management:[email or web address]/Guide [email or web address]%20Coronary%[email or web address] Performed By: #### C HM6 #### [facility] (DEFAULT) [address] [place] [address] Delta hs-Troponin I 10 ng/L Normal <=15 [facility] Comment on above: Order Comment: Acute Coronary Syndrome (ACS): Initial Evaluation and Management:[email or web address] [email or web address] Performed By: #### C HM6 #### [facility] (DEFAULT) [address] [address] 1 Hour hs-Troponin 77 ng/L High NINF - 34 ng/L [facility] Delta hs-Troponin I 10 ng/L NINF - 1 5 ng/L [facility] Interpretation and review of laboratory results Abnormal [facility] TROPONIN I INITIALon 022 hs-Troponin I 67 ng/L High <34 [facility] Comment on above: Order Comment: Acute Coronary Syndrome (ACS): Initial Evaluation and Management:[email or web address] [email or web address] Performed By: #### C HM6 #### [facility] (DEFAULT) [address] [place] [address] Interpretation and review of laboratory results Abnormal [facility] Troponin I.cardiac DL <= 0.01 ng/mL [Mass/Vol] 67 ng/L High NINF - 34 ng/L [facility] CONTINUOUS CARDIAC MONITORIN G STRIPOrdered By: Unassigned Pacs on 03-28-2022 [facility] Work Phone: Glucose Glucometer (BldC) [M ass/Vol]Ordered By: Dr. Sands on 03-28-2022 Glucose [Mass/Vol] 194 mg/dL 74-106 [facility] Comment on above: MANAGEMENT OF PATIEN T CARE PER NURSING PROTOCOL Absolute lymphocyte countOrd ered By: Dr. Malin on 03-26-2022 Lymphocytes Auto (Unsp spec) [#/Vol] 1.66 10*3/uL 0.83-4.51 [facility] Basophil percentageOrdered B y: Dr. Malin on 03-26-2022 Basophils/100 WBC (Bld) 0.9 % 0-1 [facility] Chloride [Moles/Vol] 105 mmol/L 98-107 [facility] Eosinophils/100 WBC (Bld) 4.6 % 0-5 [facility] Glucose [Mass/Vol] 166 mg/dL 74-106 [facility] Comment on above: Fasting Glucose resu lt greater than or equal to 126 mg/dL suggests DIABETES MELLITUS per A.D.A. criteria. Neutrophils (Bld) [#/Vol] 4.3 10*3/uL 2.0-7.7 [facility] Neutrophils/100 WBC (Bld) 60.8 % 47-70 [facility] Potassium [Moles/Vol] 4.1 mmol/L 3.5-5.1 [facility] Sodium [Moles/Vol] 139 mmol/L 136-145 [facility] WBC (Bld) [#/Vol] 7.0 10*3/uL 4.4-11.0 [facility] Blood erythrocytes count (nu mber/volume)Ordered By: Dr. Malin on 03-26-2022 RBC (Bld) [#/Vol] 4.86 10*6/uL 4.2-5.4 [facility] Blood hemoglobin measurement (mass/volume)Ordered By: Dr. Malin on 03-26-2022 Hemoglobin (Bld) [Mass/Vol] 14.1 g/dL 12.0-15.0 [facility] Blood lymphocytes/100 leukoc ytesOrdered By: Dr. Malin on 03-26-2022 Lymphocytes/100 WBC (Bld) 23.6 % 19-41 [facility] Blood monocytes/100 leukocyt esOrdered By: Dr. Malin on 03-26-2022 Monocytes/100 WBC (Bld) 9.8 % 0-10 [facility] Blood platelet mean volumeOr dered By: Dr. Malin on 03-26-2022 Platelet mean volume (Bld) [Entitic vol] 10.6 fL 6.2-12.0 [facility] Determination of erythrocyte mean corpuscular volume (MCV)Ordered By: Dr. Malin on 03-26-2022 MCV (RBC) [Entitic vol] 86.6 fL 81-99 [facility] Hematocrit Auto (Bld) [Volum e fraction]Ordered By: Dr. Malin on 03-26-2022 Hematocrit (Bld) [Volume fraction] 42.1 % 37-47 [facility] Laboratory - Chemistry and C hemistry - challengeOrdered By: Dr. Malin on 03-26-2022 CO2 [Moles/Vol] 27.0 mmol/L 21.0-32.0 [facility] Urea nitrogen/Creatinine [Mass ratio] 40.5 mg/mg 10-20 [facility] Laboratory - Hematology and Cell countsOrdered By: Dr. Malin on 03-26-2022 Erythrocyte distribution width (RBC) [Entitic vol] 39.9 fL 35.1-43.9 [facility] Erythrocyte distribution width (RBC) [Ratio] 12.7 % 11.6-14.6 [facility] Immature granulocytes/100 WBC (Bld) 0.300 % 0.0-0.9 [facility] Comment on above: IG% - Immature Granu locytes (promyelocytes, myelocytes and metamyelocytes) > 1% indicates that a LEFT SHIFT is Present. MCH (RBC) [Entitic mass] 29.0 pg 27.0-32.0 [facility] Nucleated RBC/100 WBC (Bld) [Ratio] 0 % 0-5 [facility] MCHC Auto (RBC) [Mass/Vol]Or dered By: Dr. Malin on 03-26-2022 MCHC (RBC) [Mass/Vol] 33.5 g/dL 32-36 [facility] No Panel InformationOrdered By: Dr. Malin on 03-26-2022 Estimated Creatinine Clearance Calc 38.86 ml/min [facility] Estimated GFR (MDRD) Amer 137 mL/min >60 [facility] Comment on above: GFR Calc Estimated GFR (MDRD) Non-Af Amer 113 mL/min >60 [facility] Comment on above: Non- GFR Calc Platelets bldOrdered By: Dr. Malin on 03-26-2022 Platelets (Bld) [#/Vol] 234 10*3/uL 150-450 [facility] Serum or plasma calcium neris urement (mass/volume)Ordered By: Dr. Malin on 03-26-2022 Calcium [Mass/Vol] 9.1 mg/dL 8.5-10.1 [facility] Serum or plasma creatinine m easurement (mass/volume)Ordered By: Dr. Malin on 03-26-2022 Creatinine [Mass/Vol] 0.54 mg/dL 0.55-1.02 [facility] Comment on above: The validity of the calculated GFR & GFRAA in patients over 70 years has not been determined. Clinical correlation is essential. Serum or plasma urea nitroge n measurement (mass/volume)Ordered By: Dr. Malin on 03-26-2022 Urea nitrogen [Mass/Vol] 22 mg/dL 7-18 [facility] Thin prep Papanicolaou smear with manual screeningOrdered By: Dr. Malin on 03-26-2022 Thin prep Papanicolaou smear with manual screening 7 5-15 [facility] Laboratory - Chemistry and C hemistry - challengeOrdered By: Dr. Malin on 03-24-2022 Magnesium [Mass/Vol] 2.1 mg/dL 1.6-2.6 [facility] No Panel InformationOrdered By: Dr. Davison on 03-24-2022 Troponin I High Sensitivity 982 pg/mL 3.0-54.0 [facility] Comment on above: Critical Result(s) C alled at: 00:43:48 03/25/2022 by: Johnathon Boyer TO Neftali ROME RN (U) Results read back by same. Please Note: New Test Units and Gender Specific Reference Ranges. For more information see Policy Stat Procedure [place]re High Sensitivity Troponin (TNIH) and attachments. Basophil percentageOrdered B y: Dr. Callejas on 03-22-2022 Bilirubin [Mass/Vol] 0.90 mg/dL 0.20-1.00 [facility] Comment on above: For patients on eltr ombopag therapy, use of Dimension [place]re TBIL is not recommended. Protein [Mass/Vol] 5.6 g/dL 6.4-8.2 [facility] Laboratory - Chemistry and C hemistry - challengeOrdered By: Dr. Callejas on 03-22-2022 ALP [Catalytic activity/Vol] 47 U/L 45-117 [facility] ALT [Catalytic activity/Vol] 30 U/L 13-56 [facility] Globulin (S) [Mass/Vol] 2.8 g/dL 2.2-4.2 [facility] Serum or plasma albumin neris urement (mass/volume)Ordered By: Dr. Callejas on 03-22-2022 Albumin [Mass/Vol] 2.8 g/dL 3.2-5.0 [facility] Serum or plasma albumin/glob ulin mass ratioOrdered By: Dr. Callejas on 03-22-2022 Albumin/Globulin [Mass ratio] 1.0 {ratio} 0.9-2.4 [facility] Thin prep Papanicolaou smear with manual screeningOrdered By: Dr. Callejas on 03-22-2022 Thin prep Papanicolaou smear with manual screening 36 U/L 15-37 [facility] Base excessOrdered By: Dr. Danuta lawson on 03-21-2022 Base excess Calc (BldV) [Moles/Vol] 2 mmol/L -2-2 [facility] Basophil percentageOrdered B y: Dr. Callejas on 03-21-2022 Basophil percentage 25.9 mmol/L - [facility] Basophils/100 WBC (Bld) 91 % 95-99 [facility] CO2 (BldA) [Partial pressure ]Ordered By: Dr. Callejas on 03-21-2022 CO2 (Bld) [Partial pressure] 36.1 mm[Hg] 35-45 [facility] HCO3 (BldA) [Moles/Vol]Order ed By: Dr. Callejas on 03-21-2022 HCO3 (Bld) [Moles/Vol] 30 mmol/L - [facility] Laboratory - Chemistry and C hemistry - challengeOrdered By: Dr. Callejas on 03-21-2022 CO2 [Moles/Vol] 31 mmol/L 23- [facility] No Panel InformationOrdered By: Dr. Callejas on 03-21-2022 Bed Mix Venous Bld PCO2 at Pat Temp 44.9 mmHg 41-51 [facility] Blood Gas Specimen Type RUPERT [facility] Venous Blood Base Excess 5 mmol/L -1.0-3.5 [facility] Blood Gas Total CO2 27 mmol/L [facility] Oxygen (BldA) [Partial press ure]Ordered By: Dr. Callejas on 03-21-2022 Oxygen (Bld) [Partial pressure] 57 mmHG 75-100 [facility] PO2 venousOrdered By: Dr. Cherelle love on 03-21-2022 Oxygen (BldV) [Partial pressure] 33 mm[Hg] 25-40 [facility] Vital signsOrdered By: Dr. Danuta lawson on 03-21-2022 Oxygen saturation in Blood 64 % 50-70 [facility] pH measurementOrdered By: Dr Shekhar Callejas on 03-21-2022 pH (Unsp spec) 7.43 [pH] 7.32-7.42 [facility] pH (Unsp spec) 7.46 [pH] 7.35-7.45 [facility] Absolute lymphocyte counton 03-20-2022 Lymphocytes Auto (Unsp spec) [#/Vol] 5.34 10*3/uL 0.83-4.51 [facility] Work Phone: [phone] Base excesson 03-20-2022 Base excess Calc (BldV) [Moles/Vol] -3 mmol/L -2-2 [facility] Work Phone: [phone] Basophil percentageon 2021 Basophil percentage 22.6 mmol/L 22- [facility] Work Phone: Basophils/100 WBC (Bld) 97 % 95-99 [facility] Work Phone: [phone] Basophils/100 WBC (Bld) 0.6 % 0-1 [facility] Work Phone: [phone] Chloride [Moles/Vol] 106 mmol/L 98-107 [facility] Work Phone: Eosinophils/100 WBC (Bld) 1.8 % 0-5 [facility] Work Phone: Glucose [Mass/Vol] 368 mg/dL 74-106 [facility] Work Phone: Comment on above: Glucose result great er than or equal to 200 mg/dLsuggests DIABETES MELLITUS per A.D.A. criteria. Neutrophils (Bld) [#/Vol] 7.2 10*3/uL 2.0-7.7 [facility] Work Phone: Neutrophils/100 WBC (Bld) 52.0 % 47-70 [facility] Work Phone: [phone] Potassium [Moles/Vol] 4.0 mmol/L 3.5-5.1 [facility]: [phone] Sodium [Moles/Vol] 138 mmol/L 136-145 [facility] Work Phone: [phone] WBC (Bld) [#/Vol] 13.7 10*3/uL 4.4-11.0 [facility] Work Phone: Blood erythrocytes count (nu mber/volume)on 03-20-2022 RBC (Bld) [#/Vol] 5.55 10*6/uL 4.2-5.4 [facility] Work Phone: Blood hemoglobin measurement (mass/volume)on 03-20-2022 Hemoglobin (Bld) [Mass/Vol] 15.6 g/dL 12.0-15.0 [facility] Work Phone: Blood lymphocytes/100 leukoc yteson 03-20-2022 Lymphocytes/100 WBC (Bld) 38.9 % 19-41 [facility] Work Phone: Blood monocytes/100 leukocyt eson 03-20-2022 Monocytes/100 WBC (Bld) 6.2 % 0-10 [facility] Work Phone: Blood platelet mean volumeon 03-20-2022 Platelet mean volume (Bld) [Entitic vol] 10.2 fL 6.2-12.0 [facility] Work Phone: CO2 (BldA) [Partial pressure ]on 03-20-2022 CO2 (Bld) [Partial pressure] 42.7 mm[Hg] 35-45 [facility] Work Phone: Determination of erythrocyte mean corpuscular volume (MCV)on 03-20-2022 MCV (RBC) [Entitic vol] 87.9 fL 81-99 [facility] Work Phone: Hematocrit Auto (Bld) [Volum e fraction]on 03-20-2022 Hematocrit (Bld) [Volume fraction] 48.8 % 37-47 [facility] Work Phone: Influenza virus A and B and SARS-CoV-2 (COVID-19) Ag panel - Upper respiratory specimOrdered By: Dr. Espinoza on 03-20-2022 SARS-CoV-2 (COVID-19) RNA NICHOLAS+probe Ql (Resp) [facility] Laboratory - Chemistry and C hemistry - challengeon 03-20-2022 CO2 [Moles/Vol] 26.0 mmol/L 21.0-32.0 [facility] Work Phone: Urea nitrogen/Creatinine [Mass ratio] 25.3 mg/mg 10-20 [facility] Work Phone: Laboratory - Chemistry and C hemistry - challengeOrdered By: Dr. Espinoza on 03-20-2022 Natriuretic peptide B (Bld) [Mass/Vol] 549.6 pg/mL 0-100 [facility] Laboratory - Hematology and Cell countson 03-20-2022 Erythrocyte distribution width (RBC) [Entitic vol] 41.7 fL 35.1-43.9 [facility] Work Phone: Erythrocyte distribution width (RBC) [Ratio] 12.9 % 11.6-14.6 [facility] Work Phone: Immature granulocytes/100 WBC (Bld) 0.500 % 0.0-0.9 [facility] Work Phone: Comment on above: IG% - Immature Granu locytes (promyelocytes, myelocytes and metamyelocytes) > 1% indicates that a LEFT SHIFT is Present. MCH (RBC) [Entitic mass] 28.1 pg 27.0-32.0 [facility] Work Phone: Nucleated RBC/100 WBC (Bld) [Ratio] 0 % 0-5 [facility] Work Phone: MCHC Auto (RBC) [Mass/Vol]on 03-20-2022 MCHC (RBC) [Mass/Vol] 32.0 g/dL 32-36 [facility] Work Phone: No Panel Informationon 03-20 Troponin I High Sensitivity 4675 pg/mL 3.0-54.0 [facility] Work Phone: Comment on above: Critical Result(s) C alled at: 12:30:02 03/20/2022 by: Maria C. Jamshid Rosario RN (ER). Results read back by same. Please Note: New Test Units and Gender Specific Reference Ranges. For more information see Policy Stat Procedure [place] High Sensitivity Troponin (TNIH) and attachments. Blood Gas Specimen Type ART [facility] Work Phone: Blood Gas Total CO2 24 mmol/L [facility] Work Phone: Estimated Creatinine Clearance Calc 50.06 ml/min [facility] Work Phone: Estimated GFR (MDRD) Amer 84 mL/min >60 [facility] Work Phone: Comment on above: GFR Calc Estimated GFR (MDRD) Non-Af Amer 69 mL/min >60 [facility] Work Phone: Comment on above: Non- GFR Calc No Panel InformationOrdered By: Dr. Espinoza on 03-20-2022 Bedside Blood Gas PEEP 10 [facility] Blood Gas Oxygen Percent 60 [facility] Blood Gas Sample Site R Brach [facility] Blood Gas Vent Mode NIV [facility] Oxygen Delivery Device BiPAP [facility] Reactive Lymphocytes 1+ [facility] Oxygen (BldA) [Partial press ure]on 03-20-2022 Oxygen (Bld) [Partial pressure] 93 mmHG 75-100 [facility] Work Phone: Platelets bldon 03-20-2022 Platelets (Bld) [#/Vol] 317 10*3/uL 150-450 [facility] Work Phone: Serum or plasma calcium neris urement (mass/volume)on 03-20-2022 Calcium [Mass/Vol] 8.9 mg/dL 8.5-10.1 [facility] Work Phone: Serum or plasma creatinine m easurement (mass/volume)on 03-20-2022 Creatinine [Mass/Vol] 0.83 mg/dL 0.55-1.02 [facility] Work Phone: Comment on above: The validity of the calculated GFR & GFRAA in patients over 70 years has not been determined. Clinical correlation is essential. Serum or plasma urea nitroge n measurement (mass/volume)on 03-20-2022 Urea nitrogen [Mass/Vol] 21 mg/dL 7-18 [facility] Work Phone: Thin prep Papanicolaou smear with manual screeningon 03-20-2022 Thin prep Papanicolaou smear with manual screening 6 5-15 [facility] Work Phone: pH measurementon 03-20-2022 pH (Unsp spec) 7.33 [pH] 7.35-7.45 [facility] Work Phone: Lab Report: Lipid Profileon 01-19-2017 Cholesterol in HDL mass conc 59 mg/dL Invalid Interpretation Code [facility] [place] [employer] Work Phone: [phone] Cholesterol in LDL mass conc 87 mg/dL Invalid Interpretation Code 0-130 [facility] [employer] Work Phone: [phone] Cholesterol mass conc 171 mg/dL Invalid Interpretation Code 200 [facility] [employer] Work Phone: [phone] Lipoprotein.pre-beta mass conc 25 mg/dL Invalid Interpretation Code 5-40 [facility] [employer] Work Phone: [phone] Triglyceride mass conc 124 mg/dL Invalid Interpretation Code [facility] [employer] Work Phone: [phone] Lab Report: Liver Profileon 01-19-2017 Albumin mass conc 3.7 g/dL Invalid Interpretation Code 3.4-5.0 [facility] [employer] Work Phone: [phone] Alkaline phosphatase (ALP) 73 U/L Invalid Interpretation Code 45-117 [facility] [employer] Work Phone: [phone] ALP enzyme act/vol (Bld) 73 U/L Invalid Interpretation Code 45-117 [place] [employer] [facility] Work Phone: [phone] ALT enzyme act/vol 39 U/L Invalid Interpretation Code 12-78 [place] [facility] [employer] Work Phone: [phone] AST enzyme act/vol 27 U/L Invalid Interpretation Code 15-37 [facility] [employer] Work Phone: [phone] Bilirubin mass conc 1.00 mg/dL Invalid Interpretation Code 0.20-1.00 [facility] [employer] Work Phone: [phone] Bilirubin.direct mass conc 0.24 mg/dL Invalid Interpretation Code 0.00-0.30 [facility] [employer] Work Phone: [phone] Globulin Calculated mass conc (S) 3.1 g/dL Invalid Interpretation Code 2.2-4.2 [facility] Work Phone: [phone] Protein mass conc 6.8 g/dL Invalid Interpretation Code 6.4-8.2 [facility] Work Phone: [phone] Chart Maintenanceon 11-28-19 17 Left ventricular Ejection fraction 60 % Invalid Interpretation Code [facility] Work Phone: [phone] Office Visiton 11-27-2016 Documentation of current medications (procedure) Done Invalid Interpretation Code [place] [employer] Work Phone: [phone] Protein mass conc Done Invalid Interpretation Code [facility] [employer] Work Phone: [phone] Lab Report: Basic Metabolic Profile (BMP)on 11-17-2016 Anion gap 5 mmol/L Invalid Interpretation Code 5-15 [facility] Work Phone: [phone] Anion gap 4 molar conc 5 Invalid Interpretation Code 5-15 [place] [employer] Work Phone: [phone] Anion gap molar conc 5 mmol/L 5-15 [facility] Work Phone: [phone] BUN/Creatinine Ratio 18.3 RATIO Invalid Interpretation Code 10-20 [place] [employer] Work Phone: [phone] Calcium 9.0 mg/dL Invalid Interpretation Code 8.5-10.1 [facility] [employer] Work Phone: [phone] Chloride 94 mmol/L Low 98-107 [place] [facility] [employer] Work Phone: [phone] CO2 30.0 mmol/L Invalid Interpretation Code 21.0-32.0 [facility] [employer] Work Phone: [phone] CO2 ppres (BldV) 30.0 mmol/L Invalid Interpretation Code 21.0-32.0 [place] [facility] [employer] Work Phone: [phone] Creatinine 0.66 mg/dL Invalid Interpretation Code 0.55-1.02 [facility] [employer] Work Phone: [phone] eGFR (non-black) 111 mL/min/{1.73_m2} Invalid Interpretation Code >60 [facility] [employer] Work Phone: [phone] eGFR (non-black) 92 mL/min/{1.73_m2} Invalid Interpretation Code >60 [facility] Work Phone: [phone] EST GFR - AA 111 mL/min Invalid Interpretation Code >60 [facility] Work Phone: [phone] Glucose 148 mg/dL High 70-110 [facility] Work Phone: [phone] Glucose mass conc 148 mg/dL High 70-110 [facility] Work Phone: [phone] Potassium 4.4 mmol/L Invalid Interpretation Code 3.5-5.1 [facility] Work Phone: [phone] Sodium 129 mmol/L Low 136-145 [facility] Work Phone: [phone] Urea nitrogen 12 mg/dL Invalid Interpretation Code 7-18 [facility] Work Phone: [phone] Lab Report: Lipid Profileon 11-17-2016 Cholesterol 283 mg/dL High 200 [facility] Work Phone: [phone] HDL Cholesterol 52 mg/dL Invalid Interpretation Code [facility] Work Phone: [phone] LDL Cholesterol 201 mg/dL High 0-130 [facility] Work Phone: [phone] Triglyceride 149 mg/dL Invalid Interpretation Code [facility] Work Phone: [phone] very low density lipoproteins 30 mg/dL Invalid Interpretation Code 5-40 [facility] Work Phone: [phone] Lab Report: Liver Profileon 11-17-2016 Alanine aminotransferase (ALT) 29 U/L Invalid Interpretation Code 12-78 [facility] Work Phone: [phone] Albumin 4.0 g/dL Invalid Interpretation Code 3.4-5.0 [facility] Work Phone: [phone] Alkaline phosphatase (ALP) 74 U/L Invalid Interpretation Code 45-117 [facility] Work Phone: [phone] ALP enzyme act/vol (Bld) 74 U/L 45-117 [facility] Work Phone: [phone] Aspartate aminotransferase (AST) 15 U/L Invalid Interpretation Code 15-37 [facility] Work Phone: [phone] Bilirubin (direct) 0.25 mg/dL Invalid Interpretation Code 0.00-0.30 [facility] Work Phone: [phone] Bilirubin (total) 1.10 mg/dL High 0.20-1.00 [facility] Work Phone: [phone] Globulin 3.1 g/dL Invalid Interpretation Code 2.3-3.5 [facility] Work Phone: [phone] Globulin mass conc (S) 3.1 g/dL 2.3-3.5 [facility] Work Phone: [phone] Protein 7.1 g/dL Invalid Interpretation Code 6.4-8.2 [facility] Work Phone: [phone] Office Visit: [facility] 08-07-19 17 Documentation of current medications (procedure) Done Invalid Interpretation Code [facility] Work Phone: [phone] Fall risk assessment No Invalid Interpretation Code [facility] Work Phone: [phone] Protein mass conc Done [facility] Work Phone: [phone] Tobacco smoking status NHIS Never smoker Invalid Interpretation Code [facility] Work Phone: [phone] Tobacco use [facility] Never smoker Invalid Interpretation Code [facility] Work Phone: [phone] Replaced Document: Antoine [facility] 08-06-2016 EKG QRS axis 32 deg Invalid Interpretation Code [employer] Phone: [phone] electrocardiogram interpretation Sinus Rhythm -Nonspecific ST depression -Nondiagnostic. ABNORMAL Invalid Interpretation Code [employer] Phone: [phone] GE use only - for [employer] import when terms are not otherwise specified 428 ms Invalid Interpretation Code [facility] Work Phone: [phone] Interpretation Sinus Rhythm -Nonspecific ST depression -Nondiagnostic. ABNORMAL Invalid Interpretation Code [facility] Work Phone: [phone] P Bradley 57 deg Invalid Interpretation Code [facility] Work Phone: [phone] P wave axis, electrocardiogram 57 deg Invalid Interpretation Code [facility] Work Phone: [phone] RI Interval 128 ms Invalid Interpretation Code [facility] Work Phone: [phone] RI interval, electrocardiogram 128 ms Invalid Interpretation Code [facility] Work Phone: [phone] Pulse (Heart Rate) 66 /min Invalid Interpretation Code [facility] Work Phone: [phone] QRS axis, electrocardiogram 32 deg Invalid Interpretation Code [facility] Work Phone: [phone] QRS Duration 90 ms Invalid Interpretation Code [facility] Work Phone: [phone] QRS duration, electrocardiogram 90 ms Invalid Interpretation Code [facility] Work Phone: [phone] QT Interval new path ms Invalid Interpretation Code [facility] Work Phone: [phone] QT interval, electrocardiogram new path ms Invalid Interpretation Code [facility] Work Phone: [phone] QTc Godoy 428 ms Invalid Interpretation Code [facility] Work Phone: [phone] T Bradley 42 deg Invalid Interpretation Code [facility] Work Phone: [phone] T wave axis, electrocardiogram 42 deg Invalid Interpretation Code [facility] Work Phone: [phone] Influenza virus A and B and SARS-CoV-2 (COVID-19) Ag panel - Upper respiratory specim SARS-CoV-2 (COVID-19) RNA NICHOLAS+probe Ql (Resp) [facility] Work Phone: Vital Signs Date Time Vital Sign Value Performing Clinician Facility 12-06-2024 09:28-0400 Diastolic blood pressure 78 mm[Hg] Dr. Murphy Burton DO Work Phone: [facility] 12-06-2024 09:28-0400 Systolic blood pressure 161 mm[Hg] Dr. Murphy Burton DO Work Phone: [facility] 12-06-2024 09:17-0400 Heart rate 71 /min Dr. Murphy Burton DO Work Phone: [facility] 12-06-2024 08:55-0400 Body height 149.[address] Murphy Burton DO Work Phone: [facility] 12-06-2024 08:55-0400 Body mass index (BMI) [Ratio] 27.4 kg/m2 Dr. Murphy Burton DO Work Phone: [facility] 12-06-2024 08:55-0400 Body weight 61.[address] Murphy Burton DO Work Phone: [facility] 12-06-2024 08:55-0400 Respiratory rate 16 /min Dr. Murphy Burton DO Work Phone: [facility] 10-04-2024 16:00-0400 Body height 149.[address] Murphy Burton DO Work Phone: [facility] 10-04-2024 16:00-0400 Body mass index (BMI) [Ratio] 26.9 kg/m2 Dr. Murphy Burton DO Work Phone: [facility] 10-04-2024 16:00-0400 Body weight 60.[address] Murphy Burton DO Work Phone: [facility] 10-04-2024 16:00-0400 Diastolic blood pressure 55 mm[Hg] Dr. Murphy Burton DO Work Phone: [facility] 10-04-2024 16:00-0400 Heart rate 64 /min Dr. Murphy Burton DO Work Phone: [facility] 10-04-2024 16:00-0400 Respiratory rate 16 /min Dr. Murphy Burton DO Work Phone: [facility] 10-04-2024 16:00-0400 Systolic blood pressure 105 mm[Hg] Dr. Murphy Burton DO Work Phone: [facility] 05-29-2022 14:08-0500 Body height 149.9 cm Jacinta Sebastian APRN-SCALP SPECIALIST Work Phone: [facility] 05-29-2022 14:08-0500 Body mass index (BMI) [Ratio] 27.81 kg/m2 Jacinta Sebastian RADIOLOGIC TECH-SCALP SPECIALIST Work Phone: [facility] 05-29-2022 14:08-0500 Body weight 62.5 kg Jacinta Sebastian RADIOLOGIC TECH-SCALP SPECIALIST Work Phone: [facility] 05-29-2022 14:08-0500 Diastolic blood pressure 63 mm[Hg] Jacinta Jaz RADIOLOGIC TECH-SCALP SPECIALIST Work Phone: [facility] 05-29-2022 14:08-0500 Heart rate 65 /min Jacintatreva Sebastian RADIOLOGIC TECH-SCALP SPECIALIST Work Phone: [facility] 05-29-2022 14:08-0500 Systolic blood pressure 133 mm[Hg] Jacintatreva Sebastian RADIOLOGIC TECH-SCALP SPECIALIST Work Phone: [facility] 04-27-2022 11:20-0500 SaO2% (BldA) [Mass fraction] 93 % Patricia Schrader MD, PhD Work Phone: [facility] 04-27-2022 11:19-0500 Body temperature 97.3 [degF] Patricia Schrader MD, PhD Work Phone: [facility] 04-27-2022 11:19-0500 Diastolic blood pressure 63 mm[Hg] Patricia Schrader MD, PhD Work Phone: [facility] 04-27-2022 11:19-0500 Heart rate 63 /min Patricia Schrader MD, PhD Work Phone: [facility] 04-27-2022 11:19-0500 Respiratory rate 16 /min Patricia Schrader MD, PhD Work Phone: [facility] 04-27-2022 11:19-0500 Systolic blood pressure 133 mm[Hg] Patricia Schrader MD, PhD Work Phone: [facility] 04-27-2022 06:22-0500 Body mass index (BMI) [Ratio] 27.83 kg/m2 Patricia Schrader MD, PhD Work Phone: [facility] 04-27-2022 06:22-0500 Body weight 62.5 kg Patricia Schrader MD, PhD Work Phone: [facility] 04-25-2022 14:30-0500 Body height 149.9 cm Patricia Schrader MD, PhD Work Phone: [facility] 04-20-2022 01:07-0500 Diastolic blood pressure 53 mm[Hg] Dr. Murphy Burton Work Phone: 7(182)938-387954 [place] [address] 04-20-2022 01:07-0500 Heart rate 66 /min Dr. Murphy Burton Work Phone: 5(258)235-418354 [place] [address] 04-20-2022 01:07-0500 Inhaled oxygen flow rate 5 L/min Dr. Murphy Burton Work Phone: 2(208)925-364105 [address] 04-20-2022 01:07-0500 Respiratory rate 17 /min Dr. Murphy Burton Work Phone: 4(090)331-089005 [address] 04-20-2022 01:07-0500 SaO2% (BldA) [Mass fraction] 99 % Dr. Murphy Burton Work Phone: 7(553)050-685805 [address] 04-20-2022 01:07-0500 Systolic blood pressure 153 mm[Hg] Dr. Murphy Burton Work Phone: 2(905)784-446605 [address] 04-19-2022 23:45-0500 Body temperature 97.7 [degF] Dr. Murphy Burton Work Phone: 1(990)922-864654 [place] [address] 04-19-2022 22:15-0500 Inhaled oxygen concentration 40 % Dr. Murphy Burton Work Phone: 4(176)100-075605 [address] 04-19-2022 21:53-0500 Body height 151.[address] Murphy Burton Work Phone: 3(577)945-758105 [address] 04-19-2022 21:53-0500 Body mass index (BMI) [Ratio] 28.5 kg/m2 Dr. Murphy Burton Work Phone: 4(593)645-169505 [address] 04-19-2022 21:53-0500 Body weight 65.[address] Murphy Burton Work Phone: [facility] 04-17-2022 06:00-0500 Body temperature 97.9 [degF] Dr. Murphy Burton Work Phone: 8(169)837-989009 [place] [address] 04-17-2022 06:00-0500 Diastolic blood pressure 55 mm[Hg] Dr. Murphy Burton Work Phone: 6(558)371-361009 [place] [address] 04-17-2022 06:00-0500 Heart rate 66 /min Dr. Murphy Burton Work Phone: 1(230)851-729409 [place] [address] 04-17-2022 06:00-0500 Respiratory rate 20 /min Dr. Murphy Burton Work Phone: 8(787)379-782109 [place] [address] 04-17-2022 06:00-0500 SaO2% (BldA) [Mass fraction] 94 % Dr. Murphy Burton Work Phone: 2(412)281-958809 [place] [address] 04-17-2022 06:00-0500 Systolic blood pressure 140 mm[Hg] Dr. Murphy Burton Work Phone: 4(102)180-388509 [place] [address] 04-17-2022 00:00-0500 Inhaled oxygen flow rate 2 L/min Dr. Murphy Burton Work Phone: 1(511)524-869909 [place] [address] 04-16-2022 22:38-0500 Inhaled oxygen concentration 60 % Dr. Murphy Burton Work Phone: 1(847)766-562809 [place] [address] 04-16-2022 20:57-0500 Body height 152.[address] Murphy Burton Work Phone: 4(239)085-454609 [place] [address] 04-16-2022 20:57-0500 Body mass index (BMI) [Ratio] 28.7 kg/m2 Dr. Murphy Burton Work Phone: 7(570)450-324709 [place] [address] 04-16-2022 20:57-0500 Body weight 66.[address] Murphy Burton Work Phone: 7(541)790-800709 [place] [address] 04-05-2022 15:00-0500 Body temperature 97.81 [degF] Sabas Petersen MD Work Phone: [facility] 04-05-2022 15:00-0500 Diastolic blood pressure 71 mm[Hg] Sabas Petersen MD Work Phone: 3(620)827-562229 [place] [address] Comment on above: rn notified, MistyTR 04-05-2022 15:00-0500 Heart rate 68 /min Sabas Petersen MD Work Phone: [facility] 04-05-2022 15:00-0500 Respiratory rate 16 /min Sabas Petersen MD Work Phone: [facility] 04-05-2022 15:00-0500 SaO2% (BldA) [Mass fraction] 95 % Sabas Petersen MD Work Phone: [facility] 04-05-2022 15:00-0500 Systolic blood pressure 163 mm[Hg] Sabas Petersen MD Work Phone: 9(411)822-284929 [place] [address] Comment on above: rn notified, MistyTR 04-05-2022 06:01-0500 Body mass index (BMI) [Ratio] 27 kg/m2 Sabas Petersen MD Work Phone: [facility] 04-05-2022 06:01-0500 Body weight 60.65 kg Sabas Petersen MD Work Phone: [facility] Comment on above: standing weight 04-01-2022 12:00-0500 Body height 149.9 cm Sabas Petersen MD Work Phone: [facility] 03-28-2022 13:09-0500 Body temperature 98.1 [degF] Dr. Murphy Burton Work Phone: [facility] 03-28-2022 13:09-0500 Diastolic blood pressure 45 mm[Hg] Dr. Murphy Burton Work Phone: [facility] 03-28-2022 13:09-0500 Heart rate 63 /min Dr. Murphy Burton Work Phone: 4(588)544-674154 [place] [address] 03-28-2022 13:09-0500 Respiratory rate 18 /min Dr. Murphy Burton Work Phone: 6(054)169-134509 [place] [address] 03-28-2022 13:09-0500 SaO2% (BldA) [Mass fraction] 95 % Dr. Murphy Burton Work Phone: 5(147)540-602105 [address] 03-28-2022 13:09-0500 Systolic blood pressure 128 mm[Hg] Dr. Murphy Burton Work Phone: 7(657)355-383905 [address] 03-28-2022 04:45-0500 Body weight [address] Murphy Burton Work Phone: 6(975)748-155909 [place] [address] 03-25-2022 16:40-0500 Inhaled oxygen flow rate 1 L/min Dr. Murphy Burton Work Phone: 1(812)280-200409 [place] [address] 03-24-2022 13:33-0500 Body height 149.[address] Murphy Burton Work Phone: 4(581)088-928305 [address] Work Phone: 03-20-2022 15:30-0500 Body mass index (BMI) [Ratio] 26.2 kg/m2 Dr. Murphy Burton Work Phone: 0(595)932-780905 [address] 03-20-2022 14:02-0500 Inhaled oxygen flow rate 5 L/min Dr. Murphy Burton Work Phone: [facility] Work Phone: 03-20-2022 14:02-0500 SaO2% (BldA) [Mass fraction] 97 % Dr. Murphy Burton Work Phone: [facility] Work Phone: 03-20-2022 13:13-0500 Diastolic blood pressure 63 mm[Hg] Dr. Murphy Burton Work Phone: [facility] Work Phone: 03-20-2022 13:13-0500 Heart rate 67 /min Dr. Murphy Burton Work Phone: [facility] Work Phone: 03-20-2022 13:13-0500 Respiratory rate 16 /min Dr. Murphy Burton Work Phone: [facility] Work Phone: 03-20-2022 13:13-0500 Systolic blood pressure 139 mm[Hg] Dr. Murphy Burton Work Phone: [facility] Work Phone: 03-20-2022 12:34-0500 Body temperature 98 [degF] Dr. Murphy Burton Work Phone: [facility] Work Phone: 03-20-2022 12:34-0500 Inhaled oxygen concentration 40 % Dr. Murphy Burton Work Phone: [facility] 03-20-2022 09:10-0500 Body height 149.[address] Murphy Burton Work Phone: [facility] Work Phone: 03-20-2022 09:10-0500 Body mass index (BMI) [Ratio] 29.5 kg/m2 Dr. Murphy Burton Work Phone: [facility] Work Phone: 03-20-2022 09:10-0500 Body weight 66.[address] Murphy Burton Work Phone: [facility] Work Phone: 2022 08:29-0500 Body mass index (BMI) [Ratio] 27.6 kg/m2 Dr. Murphy Burton Work Phone: [facility] 2022 08:29-0500 Body weight 62.[address] Murphy Burton Work Phone: [facility] 2022 08:29-0500 Diastolic blood pressure 67 mm[Hg] Dr. Murphy Burton Work Phone: [facility] 2022 08:29-0500 Heart rate 65 /min Dr. Murphy Burton Work Phone: [facility] 2022 08:29-0500 Respiratory rate 18 /min Dr. Murphy Burton Work Phone: [facility] 2022 08:29-0500 SaO2% (BldA) [Mass fraction] 97 % Dr. Murphy Burton Work Phone: [facility] 2022 08:29-0500 Systolic blood pressure 130 mm[Hg] Dr. Murphy Burton Work Phone: [facility] 11-27-2016 14:09-0400 BMI (Body Mass Index) 30.71 [...] Care Provider Facility Start: 02-07-2025 End: 02-07-2025 [facility] Start: 12-06-2024 End: 12-06-2024 Patient encounter procedure Jeni ZIMMERMAN -[facility] Work Phone: Start: 12-06-2024 End: 12-06-[address] Murphy Burton DO Work Phone: -[facility] Start: 10-04-2024 End: 10-04-2024 Patient encounter procedure Jeni ZIMMERMAN -[facility] Work Phone: Start: 10-04-2024 End: 10-04-[address] Murphy Burton DO Work Phone: -[facility] Start: 04-22-2024 End: 04-22-2024 ambulatory Murphy Burton Facility:[facility] Start: 03-22-2024 ambulatory Murphy Burton Facility:[facility] Start: 03-21-2024 ambulatory Antwon Vidal Facili ty:[facility] Start: 03-21-2024 End: 03-23-2024 Evaluation and management of inpatient Antwon Vidal Facility:[facility] Start: 02-16-2024 End: 02-16-2024 ambulatory Murphy Josephine Facility:[facility] Start: 05-29-2022 ambulatory MURPHY MATAAN [facility] Start: 05-29-2022 ambulatory JACINTA SEBASTIAN Facility :[facility] Start: 05-29-2022 End: 05-29-2022 Subsequent hospital visit by physician Jacinta Sebastian RADIOLOGIC TECH-SCALP SPECIALIST Work Phone: [facility] Start: 04-25-2022 Evaluation and management of inpatient [...] patient visit Dr. Murphy Burton Work Phone: [facility] Start: 04-18-2022 ambulatory EDER FELIX JR. Facility:[facility] Start: 04-17-2022 End: 04-19-2022 Evaluation and management of inpatient LINO PORTILLO Facility:[facility] Start: 04-16-2022 End: 04-17-2022 Emergency department patient visit Dr. Murphy Burton Work Phone: [facility] Start: 04-07-2022 Non-patient / Non-visit Dr. Enrike Burton Work Phone: [facility] Start: 03-28-2022 End: 04-05-2022 Evaluation and management of inpatient SURGERY - CARDIAC CONSULT Facility:[facility] Start: 03-28-2022 End: 04-05-2022 Evaluation and management of inpatient Sabas Petersen MD Work Phone: [phone] Comment on above: Aortic stenosis Start: 03-28-2022 Non-patient / Non-visit Dr. Enrike Burton Work Phone: [facility] Start: 03-27-2022 Non-patient / Non-visit Dr. Enrike Burton Work Phone: [facility] Start: 03-26-2022 Non-patient / Non-visit Dr. Enrike Burton Work Phone: [facility] Start: 03-26-2022 Non-patient / Non-visit Dr. Enrike Burton Work Phone: [facility] Start: 03-25-2022 Non-patient / Non-visit Dr. Enrike Burton Work Phone: [facility] Start: 03-25-2022 Non-patient / Non-visit Dr. Enrike Burton Work Phone: [facility] Start: 03-24-2022 Non-patient / Non-visit Dr. Enrike Burton Work Phone: [facility] Start: 03-24-2022 Non-patient / Non-visit Dr. Enrike Burton Work Phone: [facility] Start: 03-23-2022 Non-patient / Non-visit Dr. Enrike Burton Work Phone: [facility] Start: 03-23-2022 Non-patient / Non-visit Dr. Enrike Burton Work Phone: [facility] Start: 03-22-2022 Non-patient / Non-visit Dr. Enrike Burton Work Phone: [facility] Start: 03-22-2022 Non-patient / Non-visit Dr. Enrike Burton Work Phone: [facility] Start: 03-21-2022 Non-patient / Non-visit Dr. Enrike Burton Work Phone: [facility] Start: 03-20-2022 Non-patient / Non-visit Dr. Enrike Burton Work Phone: [facility] Start: 03-20-2022 End: 03-28-2022 Evaluation and management of inpatient Dr. Murphy Burton Work Phone: [facility]-Progressive Care Unit Start: 03-19-2022 Non-patient / Non-visit Dr. Enrike Burton Work Phone: [facility] Start: 03-19-2022 End: 03-19-[address] Murphy Burton Work Phone: [facility] Work Phone: Start: 03-19-2022 End: 03-19-[address] Murphy Burton Work Phone: [facility] Start: 2022 End: [address] Murphy Burton Work Phone: [facility] Procedures Date Procedure Procedure Detail Performing Clinician Start: 05-29-2022 Echo tthrc r-t 2d w/wom-mode compl spec&colr d Jacinta Sebastian RADIOLOGIC TECH-SCALP SPECIALIST Work Phone: Start: 04-27-2022 Glucose measurement, blood [...] 2d w/wom-mode compl spec&colr d Jacinta Sebastian RADIOLOGIC TECH-SCALP SPECIALIST Work Phone: Start: 04-25-2022 Radiologic exam ches t single view Jacinta Sebastian RADIOLOGIC TECH-SCALP SPECIALIST Work Phone: Start: 04-25-2022 Assay of magnesium Pritia danuta Sebastian RADIOLOGIC TECH-SCALP SPECIALIST Work Phone: Start: 04-25-2022 Glucose measurement, blood Kailey Paniagua MD Work Phone: Start: 04-25-2022 Replace aortic valve perq femoral artry approach Jacinta Sebastian RADIOLOGIC TECH-SCALP SPECIALIST Work Phone: Start: 04-25-2022 Cardiac catheterization Jacinta Sebastian RADIOLOGIC TECH-SCALP SPECIALIST Work Phone: Start: 04-25-2022 Glucose measurement, blood Kailey Paniagua MD Work Phone: Start: 04-25-2022 Natriuretic peptide Priti Sebastian RADIOLOGIC TECH-SCALP SPECIALIST Work Phone: Start: 04-24-2022 Glucose measurement, blood Kailey Paniagua MD Work Phone: Start: 04-24-2022 ABORH TYPE RECONFIRMATION Jemal Shaver MD Work Phone: Start: 04-24-2022 Glucose measurement, blood Kailey Paniagua MD Work Phone: Start: 04-24-2022 End: 04-24-2022 Antibody screen Patricia Schrader MD, P hD Work Phone: Comment on above: Performed By: #### X M #### [facility] ([facility]) [address] [place] [address] Start: 04-24-2022 Blood typing serologic abo Jacinta Sebastian RADIOLOGIC TECH-SCALP SPECIALIST Work Phone: Start: 04-24-2022 PREPARE TO TRANSFUSE OR RED BLOOD CELLS Jacinta Sebastian RADIOLOGIC TECH-SCALP SPECIALIST Work Phone: Start: 04-24-2022 Glucose measurement, blood Kailey Paniagua MD Work Phone: Start: 04-24-2022 CONTINUOUS CARDIAC MONITORING STRIP Other Other Start: 04-24-2022 Glucose measurement, blood Kailey Paniagua MD Work Phone: Start: 04-24-2022 Electrolyte panel Giovanniong riki Blue MD Work Phone: Start: 04-23-2022 Glucose measurement, blood Kailey Paniagua MD Work Phone: Start: 04-23-2022 Glucose measurement, blood Kialey Paniagua MD Work Phone: Start: 04-23-2022 Glucose [...] Phone: Start: 04-01-2022 ACT* LOW RANGE, POC oJnatan [facility] MD Work Phone: Start: 04-01-2022 End: 04-01-2022 ACT* LOW RANGE, POC [facility] MD Work Phone: Start: 04-01-2022 Cardiac catheterization Ele Saavedra MD Work Phone: Start: 04-01-2022 Echo tthrc r-t 2d w/wom-mode compl spec&colr d Sabas Petersen MD Work Phone: Start: 04-01-2022 Iadna s aureus ampli fied probe tq Jacinta E O'Christopher RADIOLOGIC TECH-SCALP SPECIALIST Work Phone: Start: 04-01-2022 Glucose measurement, blood [...] Start: 03-29-2022 End: 03-29-2022 Assay of magnesium aTnya Hylton MD Work Phone: Start: 03-29-2022 Glucose [...] Work Phone: Start: 11-27-2016 End: 11-27-2016 CHEY Daswon MD Work Phone: Start: 11-27-2016 End: 11-27-2016 Follow Up Appt 3 months Dontrell Dawson MD Work Phone: Start: 11-17-2016 End: 11-17-2016 *BMP Dontrell Dawson MD Work Phone: Start: 11-17-2016 End: 11-17-2016 *BMP Dontrell Dawson MD Work Phone: Start: 08-25-2016 End: 11-17-2016 *Hepatic Function Panel Sung Louis Tavarez RELATIONS COORDINATOR -C Start: 08-25-2016 End: 11-17-2016 Lipid 1996 panel - Serum or Plasma Sung Louis Tavarez RELATIONS COORDINATOR-C Start: 08-25-2016 End: 11-17-2016 *Hepatic Function Panel Sung A Tavarez RELATIONS COORDINATOR -C Start: 08-25-2016 End: 11-17-2016 Lipid panel [AGGREGATE] Sung Louis Tavarez RELATIONS COORDINATOR -C Start: 08-06-2016 End: 08-06-2016 DJN Sung Mccainder RELATIONS COORDINATOR-C Start: 08-06-2016 End: 08-06-2016 Ecg routine ecg w/least 12 lds w/i&r Sung Louis Tavarez RELATIONS COORDINATOR-C Start: 08-06-2016 End: 08-06-2016 Follow Up Appt 3 months Sung Mccainder RELATIONS COORDINATOR -C Start: 08-06-2016 End: 08-06-2016 DJN Sung Louis Tavarez RELATIONS COORDINATOR-C Start: 08-06-2016 End: 08-06-2016 Electrocardiogram, complete Sung Mccainder RELATIONS COORDINATOR-C Start: 08-06-2016 End: 08-06-2016 Follow Up Appt 3 months Sung Tavarez RELATIONS COORDINATOR -C Start: 07-31-2016 End: 08-01-2016 Referral to instructor looping Dontrell Dawson MD Work Phone: Start: 07-31-2016 End: 08-06-2016 Referral to instructor looping Dontrell Dawson MD Work Phone: Start: 07-18-2016 [...] [Moles/vol ume] in Serum or Plasma POTASSIUM [facility] Start: 04-27-2023 Potassium [Moles/vol ume] in Serum or Plasma POTASSIUM [facility] Start: 04-17-2023 Lipid panel LIPIDS [facility] Start: 04-09-2023 End: 04-09-2023 Patient encounter procedure [facility] Start: 09-29-2022 Hemoglobin A1c measurement HBA1C TEST [facility] Start: 05-29-2022 End: 05-29-2022 Patient encounter procedure [facility] Start: 05-09-2022 End: 05-09-2022 Patient encounter procedure 05/09/2022 Office Visit Cardiovascular Medicine Tito Munoz MD [address] [place] [address] [facility] [place] [facility] Start: 04-19-2022 Continuous pulse oximetry [facility] Start: 04-19-2022 Dual pressure sponta neous ventilation support [facility] Start: 04-05-2022 End: 04-05-[address] ANGIO TAVR EVALUATION Imaging Routine Aortic valve stenosis, etiology of cardiac valve disease unspecified Expected: 04/05/2022, Expires: 04/05/2023 [facility] Comment on above: Expected: 04/05/2022 , Expires: 04/05/2023 Start: 03-28-2022 Patient discharge [facility] Start: 03-21-2022 Cardiac monitoring [facility] Start: 03-21-2022 Notification of physician [facility] Start: 03-21-2022 Oxygen therapy [facility] Start: 03-21-2022 Patient discharge [facility] Start: 03-21-2022 Systemic arterial pressure monitoring [facility] Start: 03-21-2022 Taking patient vital signs [facility] Start: 03-21-2022 Vascular disease ris k assessment [facility] Start: 03-21-2022 Vital signs measurements [facility] Start: 03-21-2022 [facility] Start: 03-20-2022 Referral to instructor looping [facility] Start: 03-20-2022 Care regimes management [facility] Start: 03-20-2022 Notification of physician [facility] Start: 03-20-2022 [facility] Start: 03-20-2022 Assessment of risk o f venous thromboembolism [facility] Start: 03-20-2022 Catheterization of vein [facility] Start: 03-20-2022 Fluid restriction [facility] Start: 03-20-2022 Incentive spirometry [facility] Start: 03-20-2022 Insertion of cathete r into peripheral vein [facility] Start: 03-20-2022 Measuring intake and output [facility] Start: 03-20-2022 Providing care accor ding to standard [facility] Start: 03-20-2022 Provision of activit y privileges [facility] Start: 03-20-2022 Referral to service [facility] Start: 03-20-2022 [facility] Start: 03-20-2022 Following clinical pathway protocol [facility] Start: 03-20-2022 Admission procedure [facility] Start: 03-20-2022 Continuous pulse oximetry [facility] Work Phone: Start: 03-20-2022 Dual pressure sponta neous ventilation support [facility] Work Phone: Start: 11-28-2021 Influenza vaccination INFLUENZA VACC INE (#1) [facility] Start: 07-20-2017 End: 01-23-2017 *Hepatic Function Panel *Hepatic Function Panel [facility] Work Phone: Start: 07-20-2017 End: 01-23-2017 Lipid panel [AGGREGATE] *Lipid Profile CC PCP [facility] Work Phone: Start: 03-09-2017 End: 03-09-2017 Appointment Appointment [facility] Work Phone: Start: 01-19-2017 End: 01-19-2017 *Hepatic Function Panel *Hepatic Function Panel [facility] Work Phone: Start: 01-19-2017 End: 01-19-2017 Lipid panel [AGGREGATE] *Lipid Profile CC PCP [facility] Work Phone: Start: 01-19-2017 End: 11-27-2016 *Hepatic Function Panel *Hepatic Function Panel [facility] Work Phone: Start: 01-19-2017 End: 11-27-2016 Lipid panel [AGGREGATE] *Lipid Profile CC PCP [facility] Work Phone: Start: 11-27-2016 End: 11-27-2016 Appointment Appointment [facility] Work Phone: Start: 11-27-2016 End: 11-27-2016 Appointment Appointment [facility] Work Phone: Start: 11-27-2016 End: 11-27-2016 Cardiac Rehab Cardiac Rehab [facility] Work Phone: Start: 11-27-2016 End: [...] Phone: Start: 11-27-2016 End: 11-27-2016 DJN ADINAN [facility] Work Phone: Start: 11-27-2016 End: 11-27-2016 Follow Up Appt 3 months Follow Up Appt 3 months [facility] Work Phone: Start: 11-27-2016 End: 11-27-2016 Follow Up BP Check Follow Up BP Check [facility] Work Phone: Start: 11-17-2016 End: [...] Lipid panel [AGGREGATE] *Lipid Profile CC PCP [facility] Work Phone: Start: 08-06-2016 End: 08-06-2016 Appointment Appointment [facility] Work Phone: Start: 08-06-2016 End: 08-06-2016 CHEY GUERRIER [facility] Work Phone: Start: 08-06-2016 End: 08-06-2016 Ecg routine ecg w/least 12 lds w/i&r EKG (In office) [facility] Work Phone: Start: 08-06-2016 End: 08-06-2016 Follow Up Appt 3 months Follow Up Appt 3 months [email or web address] Work Phone: Start: 08-06-2016 End: 08-06-2016 CHEY GUERRIER [facility] Work Phone: Start: 08-06-2016 End: 08-06-2016 Electrocardiogram, complete EKG (In office) [facility] Work Phone: Start: 08-06-2016 End: 08-06-2016 Follow Up Appt 3 months Follow Up Appt 3 months [email or web address] Work Phone: Start: 07-31-2016 End: 08-06-2016 Cardiac Rehab [facility] [address] [place], [address] [facility] Work Phone: Start: 07-31-2016 End: 08-06-2016 [facility] [address] [place], [address] [facility] Work Phone: Start: 2000 Pneumococcal vaccination PNEUM OCOCCAL VACCINE SERIES (1 - PCV) [facility] Start: 1985 Zoster vaccine hzv l yuko for subcutaneous use ZOSTER (SHINGLES) VACCINE (1 of 2) [facility] Start: 1980 Screening for malign ant neoplasm of colon COLORECTAL CANCER SCREENING DISCUSSION [facility] Start: 1975 Screening for malign ant neoplasm of breast MAMMOGRAM SCREENING DISCUSSION [facility] Start: 1956 Screening for malign ant neoplasm of cervix CERVICAL CANCER SCREENING DISCUSSION [facility] [facility] Start: 1954 Third diphtheria, te tanus and acellular pertussis (DTaP) vaccination TDAP (ADULT) [facility] Start: 1935 COVID-19 VACCINE (#1) COVID-19 VACCI NE (#1) [facility] Start: 1935 Diabetic foot examination DIABETIC F OOT EXAM [facility] Start: 1935 Glaucoma screening EYE EXAM [facility] Start: 1935 Screening for osteoporosis DEXA SCAN DISCUSSION [facility] Start: 1935 Tetanus vaccination TETANUS [facility] Start: 1935 Urine screening for protein URINE MICROALBUMIN TEST [facility] Cardiac catheterizat ion study INVASIVE CARDIOVASCULAR PROCEDURE Cardiac Cath Routine Coronary artery disease involving [place] coronary artery of [place] heart with unstable angina pectoris NSTEMI (non-ST elevated myocardial infarction) 04/04/2022 11:09 AM EST [facility] Cardiac catheterizat ion study INVASIVE CARDIOVASCULAR PROCEDURE Cardiac Cath Routine Aortic valve stenosis, etiology of cardiac valve disease unspecified 04/25/2022 10:36 AM EST [facility] Cardiac event recording EVENT TERRANCE GARCÍA, CARDIAC ECG Routine S/P TAVR (transcatheter aortic valve replacement) Ordered: 04/26/2022 [facility] Work Phone: Comment on above: Ordered: 04/26/2022 End: 04-25-2022 Cardiac telemetry MOBILE CARDIAC TELEMETRY ECG Routine One Time for 1 Occurrences starting 04/25/2022 until 04/25/2022 [facility] Comment on above: One Time for 1 Occur rences starting 04/25/2022 until 04/25/2022 Patient Education LOW%20FAT%20DIET [facility] Work Phone: Patient referral [facility] Work Phone: End: 03-28-2022 Standard ECG ECG ECG Routine One Time for 1 Occurrences starting 03/28/2022 until 03/28/2022 [facility] Comment on above: One Time for 1 Occur rences starting 03/28/2022 until 03/28/2022 End: 03-29-2022 Standard ECG [facility] Comment on above: One Time for 1 Occur rences starting 03/29/2022 until 03/29/2022 End: 04-01-2022 Standard ECG [facility] Comment on above: One Time for 1 Occur rences starting 04/01/2022 until 04/01/2022 End: 04-04-2022 Standard ECG [facility] Comment on above: One Time for 1 Occur rences starting 04/04/2022 until 04/04/2022 Standard ECG ECG ECG STAT 03/2022 6:17 PM EST [facility] Standard ECG ECG ECG STAT 08/2022 12:52 AM [facility] End: 04-25-2022 Standard ECG ECG ECG STAT One Time for 1 Occurrences starting 04/25/2022 until 04/25/2022 [facility] Comment on above: One Time for 1 Occur rences starting 04/25/2022 until 04/25/2022 Standard ECG ECG ECG STAT 10:24 AM [facility] Work Phone: Payers Date Payer Category Payer Unknown [id number] 2024 Self-pay [id number] 2022 Unknown [id number] 1935 Unknown [id number] 2.16. [id number] Unknown [facility] P[facility]AGE [facility] . [id number] Unknown [id number] 2.16.8 [id number] Unknown [id number] 2.16.8 [id number] Unknown [id number] 2.16.8 [id number] Unknown [id number] 2.16.8 [id number] Unknown [id number] 2.16.8 [id number] Unknown [id number] 2.16.8 [id number] Unknown [id number] 2.16.8 [id number] Unknown [id number] 2.16.8 [id number] Unknown [id number] 2.16.8 [id number] Unknown [id number] 2.16.8 [id number] Unknown [id number] 2.16.8 [id number] Social History Date Type Detail Facility Start: 03-20-2022 End: 04-19-2022 Tobacco smoking status NHIS Unknown if ever smoked [facility] Start: 05-07-2018 With Family [facility] Start: 1935 Sex Assigned At Female [facility] Start: 03-28-2022 End: 03-21-2024 Tobacco smoking status NHIS Never smoked tobacco [facility] Start: 03-28-2022 Tobacco use and exposure Smokeless tobacco non-user [facility] Start: 04-02-2022 End: 05-29-2022 Alcohol intake Lifetime non-drinker (finding) [facility] Start: 1935 Sex Assigned At Not on file [facility] Start: 03-18-2022 End: 03-28-2022 Exposure to SARS-CoV-2 (event) Not sure [facility] Start: 04-15-2022 End: 05-29-2022 Exposure to SARS-CoV-2 (event) Unable to assess [facility] Start: 07-09-2016 [facility] Start: 07-09-2016 Tobacco Use Tobacco Use [facility] Medical Equipment Procedure Code Equipment Code Equipment [...] Start: 05-05-2018 Device Closure Proglide 6fr - [id number] Start: 04-01-2022 Coronary Stent 2 8mm 3mm Xience Skypoint Multi-Link 145cm - [id number] Start: 04-04-2022 Kit Valve Aortic Transcatheter Lorelei 3 Commander 23mm - [id number] Start: 04-25-2022 Device Closure Proglide 6fr - [id number] Start: 04-25-2022 Goals Date Patient Goal Desired Activity /State Functional Status Date Assessment Result Facility 03-28-2022 Functional status Ambulates;Bathroom Priv [facility] Work Phone: Mental Status Date Assessment Result Facility 03-28-2022 Cognitive function Voice/Name [facility] Work Phone: Clinical Notes 03-28-2022 to [...] 2024 8:36am HLD (hyperlipidemia) chronic Nov 8:36am [facility] Work Phone: [phone]) 926-918912-25-2024 [facility] Medical Records Department [address] [place] [address] Discharge Summary 03/23/24 1042 MR#: [id number] Acct: [id number] Name: FINESSE PRATHER Rep #: [id number] : 1935 89 From: Papi Ruiz MD PCP: Dr. Murphy Burton MD Status:ADM IN Location: [place] [address] Providers Date of Admission: 03/21/24 Date of [...] went up to 156/61. Discussed with the instructor looping Dr. Cordero. Patient is discharged on lisinopril [...] cardiac stents 2016, 2022 and chronic nonrheumatic wesgrbfp-go-mkmalp stenosis of aortic valve; s/p TAVR (03/2022) [...] PO BID blood sugar 01/28/21 omega-3 250 we-hgc-dfg-lutein 2.5 mg-zeaxanthin 0.5 mg capsule ([facility]) 1 cap PO BID E[facility] HEALTH [...] tabs 02/16/24 carvedilol 1 (more content not included)...[facility]01-30-2023 NoteProcedure Report DATE PERFORMED: 04/25/2022 PREOPERATIVE DIAGNOSES: [...] Procedure Ordering Physician: JACINTA SEBASTIAN Order #: [id number] Study Date: 04/25/2022 Patient Information Name MRN Description Finesse Prather [id number] y.o. female Location Name Address [facility] [address] [facility] [address] Physicians Panel Physicians Referring Physician Case Authorizing Physician Lino Portillo MD, PhD (Primary) DO Jacinta Peng, RADIOLOGIC TECH-SCALP SPECIALIST Tito Bartholomew MD (Fellow) Nicho Lucas MD [...] obtained. The patient was brought to the laborer and placed on the table. The planned puncture sites were prepped and draped in (more content not included)...[facility]29[facility] Miscellaneous Notes* Nursing Notes - Tasia [...] admission. Patient transported via wheelchair to the [facility] with belongings and copy of discharge instructions accompaniedby hospital staff. No signs or symptoms of distress noted. 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 * Plan of Care - Tasia Mancia RN - 04/26/2022 1:34 PM EST 2 [place] Daily Rounding Plan of Care The following [...] we placed a left common femoral artery 6-Ku[place]i sheath percutaneously. A 6 [place]i pigtail was advanced over a guidewire into the ascending aorta and parked in the right sinus of Valsalva. A 9 [place] citizen left venous sheath was placed in the femoral vein. A balloon catheter tip pacing wire was advanced into the RV and secured. Good capture was achieved. The right common femoral artery was then accessed percutaneously using Seldinger technique. The patient was heparinized. The artery was preclosed with the placement of two Perclose devices. A guidewire was inserted and a 8-Kuwaiti pigtail catheter was advanced into the descending [...] - 04/25/2022 11:06 AM EST Finesse Prather ([id number]) PRE OPERATIVE DIAGNOSIS Aortic valve stenosis, etiology [...] ANESTHESIOLOGIST No anesthesia staff entered. SURGICAL STAFF Rigging Up Worker: CHIQUI Hernandez Manager Field Investigations: Alok Molina Sedation Nurse: Miguel Ho RN; [...] Thursday CURRENT HOSPITALIZATION/ LOS: Admit Date: 04/20/2022 [facility] LOS: 3 days ? MEDICATIONS: [...] (H) 04/20/2022 No results found for: TSH, [id number], XEI31CFS, TSHBASELINE, TSHULTRASEN, TSHRFT4 ? Mena Torres RN [...] RN * Plan of Care - Rico iHcks PT - 04/22/2022 2:40 PM EST Problem: [...] Goal * Plan of Care - Cristina iDaz RN - 04/21/2022 11:54 AM EST Problem: [...] Blue MD Internal Medicine Resident, PGY-3 [facility] * Nursing Notes - Adolph Corea RN - 04/20/2022 3:45 AM EST Patient admitted to [facility] for uncontrolled HTN accompanied by SOB and [...] Added:No Adolph Corea RN [facility]* Nursing Notes - Tasia Mancia [...] admission. Patient transported via wheelchair to the [place] lob with belongings and copy of discharge instructions accompaniedby hospital staff. No signs or symptoms of distress noted. 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 [facility]01-29-2023 History of Present illness Narrative* Shyla Barbour - 04/27/2022 12:53 PM EST Images from the original note were not included. [facility] Delivery Note: The following medications were Tubed to the tube number 120: Shyla Barbour [place] Bedside Delivery: [phone] Jay Bedside Delivery: [phone] East: [phone] * Azeb Hansen RPH - 04/27/2022 11:32 [...] to the patient on 04/27/2022. WALI Jeong [phone] Jay [phone] [facility] [phone] Bedside delivery [phone] * Tito Hunt MD - 04/26/2022 9:53 [...] endarteerectomy (L 2010, R 2017), HLD, HTN [id number] (non-insulin dependent) who presented to the OSH ([place]) with acute shortness of breath. Hypertension Patient [...] degree heart block. Plan to discharge with hospital monitor for further evaluation. Haven Stevenson MD Attending Physician Interventional Heart Failure & Cardiac Transplant Pager: [phone] * Tito Hunt MD - 04/25/2022 4:21 [...] endarteerectomy (L 2010, R 2017), HLD, HTN [id number] (non-insulin dependent) who presented to the OSH [...] Labs-ABGs Labs-CBC WBC/Hgb/Hct/Plts: 7.88/10.6/32.1/204 (04/25 1116) Labs-Chem 7([facility]) Bun/Creat/Cl/CO2/Glucose: 21/0.64/106/24/150 (04/25 1116) Na/K+/Phos/Mg/Ca: 138/4.5/--/1.8/-- (04/25 [...] education review and activity progression. VANESSA Kiser ([phone]) IP Cardiopulmonary & Vascular Rehab * SOULEYMANE [...] Pre procedure: Sinus Bradycardia, Rate 59 bpm, RI 136 ms, QRS 92 ms. POST TAVR: [...] care for her. Jacinta Sebastian, RN, MSN, RADIOLOGIC TECH-SCALP SPECIALIST Structural Heart Disease Nurse Practitioner Pager [phone] * Rico Hicks, PT - 04/25/2022 8:32 [...] endarteerectomy (L 2010, R 2017), HLD, HTN [id number] (non-insulin dependent) who presented to the OSH [...] 04/25/2022] ceFAZolin (ANCEF) IV intermittent, 2 g, battery hand to Procedure [START ON 04/25/2022] chlorhexidine, 15 mL, battery hand to Procedure Insulin lispro, , PRN And Dextrose, 7.5-25 g, As directed PRN And glucose, 1-2 Tube, As directed PRN Docusate, 100 mg, BID PRN magnesium oxide, 800 mg, As directed PRN Magnesium Sulfate IVPB, 4 g, As directed PRN [START ON 04/25/2022] Mupirocin, 1 Application, battery hand to Procedure Potassium Bicarb-Citric Acid, 20-40 mEq, As directed PRN Potassium Bicarb-Citric Acid, 40-60 mEq, As directed PRN povidone-iodine, 1 Application, battery hand to Procedure Sodium chloride, 2 spray, PRN Sodium chloride 0.9%, 250 mL, PRN [START ON 04/25/2022] Vancomycin (VANCOCIN) IVPB, 1,000 mg, battery hand to Procedure ALLERGIES: She is allergic to [...] CONSULT TO NUTRITION Associated attestation - Kailey Paniauga MD - 04/25/2022 8:06 AM EST I [...] Assessment/Intervention: Transfer Assessment/Intervention: Sit to Stand Transfer [place] Level: Sit->Stand: stand-by assist Assistive Device: Sit->Stand: armed chair Skilled Rationale: Positioning, Verbal cues, Initiation and execution of task Skilled Intervention/Details: Sit->Stand: 2x from bedside chair, 1x from toilet, 1x from chair in bathroom Stand to Sit Transfer [place] Level: Stand->Sit: stand-by assist Assistive Device: Stand->Sit: armed chair Skilled Rationale: Controlled descent for sitting, Verbal cues Skilled Intervention/Details: Stand->Sit: 1x to toilet, 1x to chair in bathroom, 1x to bedside chair Toilet Transfer [place] Level: Toilet: stand-by assist Assistive Device: Toilet: grab bars Skilled Rationale: Positioning, Cues for increased safety Skilled Intervention/Details: Toilet: SBA for balance to reduce risk of falls Functional Mobility: Functional Mobility [place] Level: Functional Mobility/Gait: (CGA without AD, progressing [...] x140 feet. Pt initially required CGA and HELICOPTER MECHANIC for within room mobiltiy secondary to gait and postural instability. 2WW utilized for additonal mobility, and Pt progressed to SBA. Outcome Score(s): CURRENT [facility] Daily Activity Inpatient Short Form Putting on/Taking Off Lower Body Clothin - A Little Assistance Bathin - A Little Assistance Toiletin - A Little Assistance Putting on/Taking Off Upper Body Clothin - No Assistance Groomin - No Assistance Eatin - No Assistance CURRENT [facility] Activity Raw Score: 21 CURRENT [facility] Activity Functional Limitation/Modifier: 32.79% Currently Impaired [...] STAY: LOS: 4 days SUBJECTIVE/INTERVAL HISTORY Finesse Parther's events from the last 12-24 hours were [...] endarteerectomy (L 2010, R 2017), HLD, HTN [id number] (non-insulin dependent) who presented to the OSH [...] 5-10 Low: 0-5 QUINTON Hannon RN Clinical Sofa Back Upholsterer * Radha Finch RD - 04/23/2022 1:43 [...] Needs: Weight Used: 44.3 kg IBW EEN: 5316-7815 (25-30 kcal/kg IBW) EPN: 53-66 (1.2-1.5 g/kg IBW) Malnutrition Diagnosis: Indications of Malnutrition: Unable to assess r/t another discipline in room with pt upon visit based on the AND/ASPEN Malnutrition Criteria 2012 ANDREW Garcia, KENNEY Pager: [phone] * Radha Delgadillo OT - 04/23/2022 1:36 [...] Assessment/Intervention: Transfer Assessment/Intervention: Sit to Stand Transfer Stir[place] Level: Sit->Stand: stand-by assist Assistive Device: Sit->Stand: armed chair Skilled Rationale: Positioning, Verbal cues, Initiation and execution of task Skilled Intervention/Details: Sit->Stand: 3x from bedside chair, 1x from toilet Stand to Sit Transfer Stir[place] Level: Stand->Sit: stand-by assist Assistive Device: Stand->Sit: armed chair Skilled Rationale: Controlled descent for sitting, Verbal cues Skilled Intervention/Details: Stand->Sit: 1x to toilet, 3x to bedside chair. Pt demonstrated good utilization of eccentric control throughout transfers Toilet Transfer [place] Level: Toilet: stand-by assist Skilled Rationale: Verbal cues, Controlled descent for sitting, Cues for increased safety Skilled Intervention/Details: Toilet: SBA for balance to reduce risk of falls Functional Mobility: Functional Mobility [place] Level: Functional Mobility/Gait: contact guard assist Assistive [...] Acute Physical Therapy Treatment Prior to Admission [facility] score(s): PRIOR LEVEL AM-PAC Mobility Raw Score: [...] midline. Mobility Assessment/Intervention: Supine to Sit Mobility Stir[place] Level: Supine->Sit: stand-by assist Skilled Rationale: Positioning, Sequencing, Hand placement, Verbal cues, Energy conservation, Breathing strategies Sit to Supine Mobility Stir[place] Level: Sit->Supine: contact guard assist Skilled Rationale: Positioning, Sequencing, Hand placement, Verbal cues, Tactile cues, Energy conservation, Breathing strategies, Technique of activity Transfer Assessment/Intervention: Sit to Stand Transfer [place] Level: Sit->Stand: contact guard assist Skilled Rationale: Positioning, Sequencing, Hand placement, Verbal cues, Tactile cues, Energy conservation, Breathing strategies Skilled Intervention/Details: Sit->Stand: x3 Stand to Sit Transfer [place] Level: Stand->Sit: contact guard assist Bed-Chair Transfer [place] Level: Bed<->Chair: contact guard assist Gait/Functional Mobility Assessment/Intervention: Gait Assessment [place] Level: Gait: stand-by assist Ambulation Distance (Feet): 15 Gait Deviations Identified: decreased taj, decreased gait speed, decreased stride length, decreased step length Gait Skilled Rationale: verbal, tactile, upright posture, improve foot placement Skilled Intervention/Details - Gait: Pt worked on midline and upright posture with good stable trunk and pelvis. Outcome Score(s): CURRENT [facility] Basic Mobility Inpatient Short Form Turning over in bed: 4 - No Assistance Sitting/standing from chair: 3 - A Little Assistance Moving from lying on back to sittin - A Little Assistance Moving to and from bed to chair: 3 - A Little Assistance Walk in hospital room: 3 - A Little Assistance Climbing 3-5 steps with a railin - Total Assistance CURRENT [facility] Mobility Raw Score: 17 CURRENT [facility] Mobility Functional Limitation/Modifier: 50.57% Currently Impaired in [...] Summary. Rico Hicks PT, DPT Pager #: [phone] License #: [id number] * Tito Hunt MD - 04/22/2022 8:08 [...] Assessment/Intervention: Transfer Assessment/Intervention: Sit to Stand Transfer Stir[place] Level: Sit->Stand: contact guard assist Assistive Device: Sit->Stand: armed chair Skilled Rationale: Positioning, Verbal cues, Initiation and execution of task Skilled Intervention/Details: Sit->Stand: 1x from bedside chair, 1x from toilet, 2x from chair in bathroom Stand to Sit Transfer [place] Level: Stand->Sit: contact guard assist Assistive Device: Stand->Sit: armed chair Skilled Rationale: Positioning, Verbal cues, Initiation and execution of task, Controlled descent for sitting Skilled Intervention/Details: Stand->Sit: 4x reps, cues to reach back for arm rests and utilize eccentric control for slow, controlled lowering to seated position Toilet Transfer [place] Level: Toilet: contact guard assist Assistive Device: Toilet: grab bars Skilled Rationale: Positioning, Verbal cues, Controlled descent for sitting Skilled Intervention/Details: Toilet: Pt utilized right sided grab bar for increased stability in transfer Functional Mobility: Functional Mobility [place] Level: Functional Mobility/Gait: contact guard assist (initially Min Ax1, progressing to CGA with Rt. HELICOPTER MECHANIC) Assistive Device: Functional Mobility/Gait: hand held assist [...] CGA for ambulation bathroom>bedside chair. Rt sided HELICOPTER MECHANIC provided for improved stability and to reduce [...] Acute Physical Therapy Treatment Prior to Admission [facility] score(s): PRIOR LEVEL AM-PAC Mobility Raw Score: [...] strategies Mobility Assessment/Intervention: Supine to Sit Mobility Stir[place] Level: Supine->Sit: stand-by assist Skilled Rationale: Positioning, Sequencing, Hand placement, Tactile cues Transfer Assessment/Intervention: Sit to Stand Transfer [place] Level: Sit->Stand: minimum assist (75% patient effort) Skilled Rationale: Positioning, Sequencing, Hand placement, Verbal cues, Tactile cues, Energy conservation, Breathing strategies Skilled Intervention/Details: Sit->Stand: x5 Stand to Sit Transfer [place] Level: Stand->Sit: contact guard assist Bed-Chair Transfer Stir[place] Level: Bed<->Chair: minimum assist (75% patient effort) Skilled Rationale: Positioning, Sequencing, Hand placement, Verbal cues, Tactile cues Gait/Functional Mobility Assessment/Intervention: Gait Assessment [place] Level: Gait: contact guard assist Ambulation Distance [...] improved stepping and taj. Outcome Score(s): CURRENT [facility] Basic Mobility Inpatient Short Form Turning over in bed: 4 - No Assistance Sitting/standing from chair: 3 - A Little Assistance Moving from lying on back to sittin - A Little Assistance Moving to and from bed to chair: 3 - A Little Assistance Walk in hospital room: 3 - A Little Assistance Climbing 3-5 steps with a railin - Total Assistance CURRENT [facility] Mobility Raw Score: 17 CURRENT [facility] Mobility Functional Limitation/Modifier: 50.57% Currently Impaired in [...] Summary. Rico Hicks PT, DPT Pager #: [phone] License #: [id number] * Lauren Torres RN - 04/21/2022 10:40 [...] needs and planning. QUINTON Hannon RN Clinical Sofa Back Upholsterer * Dontrell Garcia PT - 04/20/2022 9:51 [...] guard Transfer Assessment: Sit to Stand Transfer [place] Level: Sit->Stand: minimum assist (75% patient effort) Physical Assist: Sit->Stand: 2 person assist Skilled Rationale: Hand placement, Tactile cues, Facilitate anterior shift Stand to Sit Transfer [place] Level: Stand->Sit: minimum assist (75% patient effort) Physical Assist: Stand->Sit: 2 person assist Skilled Rationale: Hand placement, Tactile cues, Controlled descent for sitting Gait/Functional Mobility: Gait Assessment [place] Level: Gait: minimum assist (75% patient effort) Physical Assist: Gait: 2 person assist Assistive Device: Gait: hand held assist Ambulation Distance (Feet): 10 Gait Deviations Identified: decreased taj, decreased gait speed, decreased step length, decreased stride length Stairs: Outcome Score(s): CURRENT [facility] Basic Mobility Inpatient Short Form Turning over [...] with a railin - Total Assistance CURRENT [facility] Mobility Raw Score: 12 CURRENT [facility] Mobility Functional Limitation/Modifier: 68.66% Currently Impaired in [...] Edema: Mobility Assessment: Sit to Supine Mobility [place] Level: Sit->Supine: minimum assist (75% patient effort) Physical Assist: Sit->Supine: 2 person assist Bed Features/Set-up: Sit->Supine: Use of bed rail, Head of bed elevated Skilled Rationale: Positioning, Verbal cues, Sequencing Transfer Assessment: Sit to Stand Transfer [place] Level: Sit->Stand: minimum assist (75% patient effort) Physical Assist: Sit->Stand: 2 person assist Skilled Rationale: Positioning, Verbal cues, Full extension to upright positioning/posture, Uprightgaze/neck extension Stand to Sit Transfer [place] Level: Stand->Sit: minimum assist (75% patient effort) Physical Assist: Stand->Sit: 2 person assist Skilled Rationale: Positioning, Verbal cues, Controlled descent for sitting, Cues for increased safety Toilet Transfer [place] Level: Toilet: minimum assist (75% patient effort) Physical Assist: Toilet: 2 person assist Assistive Device: Toilet: grab bars Skilled Rationale: Positioning, Hand placement, Verbal cues, Full extension to upright positioning/posture, Cues for increased safety Functional Mobility: Functional Mobility [place] Level: Functional Mobility/Gait: minimum assist (75% patient [...] Therapy Discharge [facility]. [facility] Discharge instructions* Discharge Instructions* Radha Chinchilla MD - 04/27/2022 10:32 AM EST - Please call your local instructor looping to make an appointment. Ideally this appointment will be sometime in the next 1-2 weeks. If you are able to get in with them in that time frame, you can cancel your appointment with Dr. Munoz. If your local instructor looping is not able to see you in [...] Care Everywhere. * Blood Pressure Test: Home (Yoruba) * TAVR (Transcatheter Aortic Valve Replacement) - Care After ([facility]) (Yoruba) documented in this encounterU [facility]* Plan of Care - Tasia Mancia [...] Diabetes, Type 2 (Adult) CPG). Outcome: Ongoing [facility]01-27-2023 Note* Plan of Care - Nathalie Damon [...] Estimated Discharge Date 04/26 Nathalie Damon RN [facility]01-27-2023 Note* Op Note - Nicho Lucas MD [...] we placed a left common femoral artery 6-Ku[place]i sheath percutaneously. A 6 Kuwaiti pigtail was advanced over a guidewire into the ascending aorta and parked in the right sinus of Valsalva. A 9 [place] citizen left venous sheath was placed in the femoral vein. A balloon catheter tip pacing wire was advanced into the RV and secured. Good capture was achieved. The right common femoral artery was then accessed percutaneously using Seldinger technique. The patient was heparinized. The artery was preclosed with the placement of two Perclose devices. A guidewire was inserted and a 8-Kuwaiti pigtail catheter was advanced into the descending [...] MD Attending Surgeon Division of Cardiac Surgery [facility] Work Phone: [phone] Note* Brief Op Note - Nicho Lucas MD - 04/25/2022 11:06 AM EST Finesse Prather ([id number]) PRE OPERATIVE DIAGNOSIS Aortic valve stenosis, etiology [...] ANESTHESIOLOGIST No anesthesia staff entered. SURGICAL STAFF Rigging Up Worker: CHIQUI Hernandez Manager Field Investigations: Alok Molina Sedation Nurse: Miguel Ho RN; Barbie Garg, FRANCISCO Documenter: Gely Marvin RN COMPLICATIONS None ESTIMATED BLOOD LOSS 50 ml SPECIMENS No specimen sent * No specimens in log * Nicho Lucas MD April 25, 2022 11:06 AM [facility]01-26-2023 Attending History and physical note* SOULEYMANE Genao [...] STS Score: 13.508% Clinical Trial: No Referring Grinder Operator Automatic: INPT Consult Procedural Plan: 23 mm Lerner [...] recent she was ultimately taken to the laborer and had 2 drug eluting stents (HIRAL) placed to the LAD. Due to persistent symptoms she underwent PCI on 04/04/22 with 1 HIRAL placed to the RCA. Pt had sudden onset shortness of breath per family. She was picked up by ems and brought [place]. EMS placed pt on BIPAP because pt [...] 1 fluid ounce by mouth daily. OMEGA 9-INASYY-JUYZVQDCVP PO Yes Yes Sig: Take 0.5 fluid ounces by mouth 2 times daily. Mora-3 Fatty Acids (OMEGA-3 FISH OIL PO) Yes [...] ACS Code Status: DNRCC-ARREST Plan discussed with hairspring ii inspector Signed, Tito Hunt MD PGY-1, Emergency Medicine [facility]01-26-2023 History and physical note* Jacinta Sebastian, RADIOLOGIC TECH-[facility] - 04/24/2022 2:34 PM EST STRUCTURAL [...] STS Score: 13.508% Clinical Trial: No Referring Grinder Operator Automatic: INPT Consult Procedural Plan: 23 mm Lerner [...] physical update was completed by Jacinta Sebastian APRN-SCALP SPECIALIST. 04/24/2022, 2:35 PM Source Note - Tito [...] recent she was ultimately taken to the laborer and had 2 drug eluting stents (HIRAL) placed to the LAD. Due to persistent symptoms she underwent PCI on 04/04/22 with 1 HIRAL placed to the RCA. Pt had sudden onset shortness of breath per family. She was picked up by ems and brought to [place]. EMS placed pt on BIPAP because pt [...] 1 fluid ounce by mouth daily. OMEGA 2-HYLSGH-VHVHIDLANC PO Yes Yes Sig: Take 0.5 fluid ounces by mouth 2 times daily. Mora-3 Fatty Acids (OMEGA-3 FISH OIL PO) Yes [...] (non-insulin dependent) who presented to the OSH ([place]) with acute shortness of breath yesterday evening. [...] ACS Code Status: DNRCC-ARREST Plan discussed with hairspring ii inspector Signed, Tito Hunt MD PGY-1, Emergency Medicine documented in this encounterOSU [facility]* Plan of Care - Radha Delgadillo [...] improved ability tosafely complete ADLs. Outcome: Ongoing [facility]01-26-2023 Note* Plan of Care - Nathalie Damon [...] Estimated Discharge Date 04/26 Nathalie Damon RN [facility]01-25-2023 Note* Plan of Care - Rosina Luke [...] Response Clinical Practice Guideline (CPG) Outcome: Ongoing [facility]01-25-2023 Note* Plan of Care - Mena Torres [...] Thursday CURRENT HOSPITALIZATION/ LOS: Admit Date: 04/20/2022 [facility] LOS: 3 days ? MEDICATIONS: Scheduled Meds: [...] (H) 04/20/2022 No results found for: TSH, KXQ55JKB, PGX23PVM, TSHBASELINE, TSHULTRASEN, TSHRFT4 ? Mena Torres RN [facility]01-25-2023 Note* Plan of Care - Radha Finch [...] output. 5. RD to continue to follow. [facility]01-25-2023 Note* Plan of Care - Radha Delgadillo [...] improved ability tosafely complete ADLs. Outcome: Ongoing [facility]01-24-2023 Note* Plan of Care - Rosina Luke [...] outcomes by discharge/transition of care. Outcome: Ongoing [facility]01-24-2023 Note* Plan of Care - Valerie Bishop [...] Outcome: Progressing Toward Goal Valerie Bishop RN [facility]01-24-2023 Note* Plan of Care - Rico Hicks, [...] for functional mobility. Outcome: Progressing Toward Goal [facility]01-24-2023 Note* Plan of Care - Rosina Luke RN - 04/22/2022 1:44 AM EST Problem: Patient Care Overview Goal: Plan of Care Review Outcome: Ongoing Goal: Individualization & Mutuality Outcome: Ongoing Goal: Discharge Needs Assessment Outcome: Ongoing Goal: Interdisciplinary Rounds/Family Conf Outcome: Ongoing Problem: Fall/Trauma/Injury Risk (Adult) Goal: Fall/Trauma/Injury Risk: Absence of Trauma/Injury/Falls Description: Patient will demonstrate the desired outcomes. Outcome: Ongoing [facility]01-23-2023 Note* Plan of Care - Rico Hicks [...] for functional mobility. Outcome: Progressing Toward Goal [facility]01-23-2023 Note* Plan of Care - Cristina Diaz RN - 04/21/2022 11:54 AM EST Problem: Patient Care Overview Goal: Plan of Care Review Outcome: Ongoing Goal: Individualization & Mutuality Outcome: Ongoing Goal: Discharge Needs Assessment Outcome: Ongoing Goal: Interdisciplinary Rounds/Family Conf Outcome: Ongoing Problem: Fall/Trauma/Injury Risk (Adult) Goal: Fall/Trauma/Injury Risk: Absence of Trauma/Injury/Falls Description: Patient will demonstrate the desired outcomes. Outcome: Ongoing [facility]01-23-2023 Note* Plan of Care - Radha Delgadillo [...] improved ability tosafely complete ADLs. Outcome: Ongoing [facility]01-23-2023 Note* Plan of Care - Adolph Corea [...] tosafely complete ADLs. Outcome: Progressing Toward Goal [facility]01-23-2023 NoteAcute Coronary Syndrome (ACS): Initial Evaluation and Management: https://[email or web address]/sites/ebm/Documents/Guidelines/Acute%20Coronary%20Sy ndrome.pdf#search=troponin [facility]01-22-2023 NoteAcute Coronary Syndrome (ACS): Initial Evaluation and Management: https://[employer].[facility]/sites/ebm/Documents/Guidelines/Acute%20Coronary%20Sy ndrome.pdf#search=troponin [facility]01-22-2023 NoteAcute Coronary Syndrome (ACS): Initial Evaluation and Management: https://[employer].[facility]/sites/ebm/Documents/Guidelines/Acute%20Coronary%20Sy ndrome.pdf#search=troponin [facility]01-22-2023 Note* Plan of Care - Cristina Diaz [...] will demonstrate the desired outcomes. Outcome: Ongoing [facility]01-22-2023 Note* Plan of Care - Dontrell Garcia, [...] improve functional mobility and safety. Outcome: Ongoing [facility]01-22-2023 Note* Plan of Care - Radha Delgadillo, [...] improved ability tosafely complete ADLs. Outcome: Ongoing [facility]01-22-2023 NoteAcute Coronary Syndrome (ACS): Initial Evaluation and Management: https://[email or web address]/sites/ebm/Documents/Guidelines/Acute%20Coronary%20Sy ndrome.pdf#search=troponin [facility]01-22-2023 NoteAcute Coronary Syndrome (ACS): Initial Evaluation and Management: https://[facility].[email or web address]/sites/ebm/Documents/Guidelines/Acute%20Coronary%20Sy ndrome.pdf#search=troponin [facility]01-22-2023 Note* Certification - Paul Blue MD - [...] Blue MD Internal Medicine Resident, PGY-3 [facility]01-22-2023 Note* Nursing Notes - Adolph Corea RN - 04/20/2022 3:45 AM EST Patient admitted to [facility] for uncontrolled HTN accompanied by SOB and [...] Score: 20 LDA Added:No Adolph Corea RN [facility]01-20-2023 NoteEXAM: CT Angiogram of the chest, abdomen [...] granulomatous nodes Pleural Spaces: Moderate right, and qhgit-yt-mnoxvivk left-sided pleural effusions. Lung Parenchyma: Mild interlobular [...] noted as above. 2. Moderate right, and sfraa-ht-upaiuezw left-sided pleural effusions. 3. Mild interstitial pulmonary edema. 4. Other ancillary findings are noted as above. Please refer to the separate cardiology report regarding the cardiac, aortic valve, aortic root, and coronary findings/measurements. [facility]01-07-2023 History of Present illness Narrative * Kathy Callejas RPh,PharmD - 04/05/2022 3:06 PM EST Images from the original note were not included. [facility]: [facility] the following [facility] prescription(s): Total cost is $4.00. I have reviewed the Discharge Rx Reconciliation Report. Discharge date was confirmed with the [facility] expected discharge date. The discharge prescription(s) will be Tubed to the patient on 04/05/2022. Kathy Callejas RPh,PharmD [facility] [phone] [facility] [phone] [facility] [phone] Bedside delivery [phone] * Murphy Pereyra PT - 04/05/2022 1:32 [...] No charges Murphy Pereyra, PT License # [id number] Pager # [phone] * Genoveva Bennett OT - 04/05/2022 9:48 [...] Remaining: additional drug eluting stent placed in laborer today, PT/OT evaluations pending Assessment and Discharge Plan as of 04/04/2022 5:48 PM Anticipated discharge disposition: Home with Home Health Anticipated Services at Discharge: Longterm, Physical Therapy, Occupational Therapy Readmission Risk Score [...] (non-insulin dependent) who presented to the OSH ([place]) with chest pain and dyspnea. Acute NSTEMI [...] This plan was discussed with the attending confidential secretary, Chadwick Heart*. Sujatha Matute MD Internal Medicine, [...] plan with the resident/fellow. Chadwick Heart MD veneer measurer Department of Medicine Division of Cardiovascular Medicine [facility] * Murphy Pereyra PT - 04/04/2022 [...] No charges Murphy Pereyra PT License # [id number] Pager # [phone] * Rafi Ferguson, Pharm Student - 04/03/2022 3:06 PM EST Department of Pharmacy Admission Medication Reconciliation Note Patient: Finesse Prather Room/Bed: 5040/A The patient's allergies have been reviewed with Patient, and I have reviewed the patient's home medication list with the following sources [facility] records, Contacted [facility] pharmacy ( ), Patient Recall with prompting and OARRs. I have also reviewed this list with the pharmacist. I am recommending the following changes to the home medication list. These recommendations are considered preliminary until attestation of this note by a pharmacist. Added to Home Medications: B Complex Vitamins Multiple Vitamins-Minerals (Multivitamin & Mineral) Liquid Mora-3 Fatty Acids Cap Mora 7-Xjyigo-Eizxdplywa PO Liquid Deleted from Home Medications: Isosorbide Mononitrate SR 30 mg Multivitamins w/ minerals Tab Mora 3-Pogquz-Zyejmkoaou ([facility]) Cap Edits to Home [...] Pharm Student Preceptor: Cruz Huber Phone #: [phone] Date/Time: 04/03/2022 3:07 PM Time Spent: 90 minutes Associated attestation - Cruz Huber RPH - 04/03/2022 3:47 PM EST Department of Pharmacy Admission Medication Reconciliation Note Patient: Finesse Prather Room/Bed: 5040/A I have reviewed the home medication list with the Student. All changes to the home medication list have been updated in [facility]. Updated [facility] Med List: Prior to Admission Medications Prescriptions [...] 1 fluid ounce by mouth daily. OMEGA 2-XARGMQ-PMXHMCKNAD PO Sig: Take 0.5 fluid ounces by mouth 2 times daily. Mora-3 Fatty Acids (OMEGA-3 FISH OIL PO) Sig: [...] with any further questions. Name: Cruz Huber [facility] Phone #: [phone] Date/Time: 04/03/2022 3:46 PM * NILO Calvillo [...] adequate po intake. No notable wt changes. staff nuclear medicine technologist will continue to follow/assist prn. Pt is on the STAND skin bundle. Encourage 2-4oz. of EPHP oral supplement with med pass to optimize nutrition to help promote good skin integrity/prevent skin breakdown/promote wound healing Deshawn Issa DTR Pager: [phone] * Sujatha Matute MD - 04/03/2022 7:11 [...] (non-insulin dependent) who presented to the OSH ([place]) with chest pain and dyspnea. Acute NSTEMI [...] This plan was discussed with the attending confidential secretary, Chadwick Heart*. Sujatha Matute MD Internal Medicine, [...] or periapical radiolucencies at the remaining dentition. [facility] DUPLEX CAROTID BILATERAL Final Result CT ANGIO [...] plan with the resident/fellow. Chadwick Heart MD veneer measurer Department of Medicine Division of Cardiovascular Medicine [facility] * Duncan Jared - 04/02/2022 9:45 [...] participating in rehab at their local facility: [facility]. AMB REFERRAL TO CARDIAC REHAB HAS [...] topics below were discussed. 1. Pathophysiology of CAD/RI 2. Left Heart Cath 3. Target Lipid Profile 4. Heart Healthy Dietary Guidelines 5. Cardiac Medications 6. Signs/Symptoms to Monitor/Report 7. Risk Factor Modification/Reduction 8. Activity Guidelines/Recommendations We will continue to follow up with patient as needed until discharge for education review and activity progression. VANESSA Kiser ([phone]) IP Cardiopulmonary & Vascular Rehab * Sujatha [...] (non-insulin dependent) who presented to the OSH ([place]) with chest pain and dyspnea. Acute NSTEMI [...] TTE ordered; trying to get images from [place] - Cleared by dentistry - CT TAVR [...] This plan was discussed with the attending confidential secretary, Chadwick Heart*. Sujatha Matute MD Internal Medicine, [...] plan with the resident/fellow. Chadwick Heart MD veneer measurer Department of Medicine Division of Cardiovascular Medicine [facility] * Ana Mata RN - 04/01/2022 5:30 PM EST Discharge Planning Patient Assessment Admission Assessment Patient Assessment Completed: Initial Anticipated discharge disposition: Home Reason for Admission: triple vessel disease, aortic stenosis Is the patient able to participate in the assessment?: Yes Information source: Patient, Child(sincere), Review of Medical Record Information Source Name/Contact: asad Prather [phone] Has the patient been admitted to any [...] Yes Name and Contact information: Earl Prather [phone] Adult Child(sincere), List All Adult Children: Yes Name and Contact information: Stas Prather [phone] Would you like to add additional adult children?: Yes Name and Contact information: Joselo Prather [phone] Outpatient Providers Does patient have a primary care physician? : Yes When was the patient's last PCP visit?: (December 2021) Does the patient follow any specialists?: Yes Patient Care Team: Murphy Burton MD as PCP - General (Family Medicine) Cardiology: Dr. Narendra Almonte [phone] Environment/Caregivers Is the patient from a facility or correction?: No Patient lives with: Spouse or Partner [...] insurance coverage? : Yes (with use of [email or web address]) Is the patient on Anticoagulation? : No [facility] [address] [place] [phone] [address] Initial Discharge Planning Anticipated discharge disposition: Home [...] (non-insulin dependent) who presented to the OSH ([place]) with chest pain and dyspnea. Acute NSTEMI [...] -TTE ordered; trying to get images from [place] - Cleared by dentistry - CT TAVR [...] Labs-ABGs Labs-CBC WBC/Hgb/Hct/Plts: 7.15/12.3/37.1/248 (04/01 156) Labs-Chem 7([facility]) Bun/Creat/Cl/CO2/Glucose: 29/0.69/105/22/176 (04/01 156-04/01 1056) Na/K+/Phos/Mg/Ca: 137/4.6/--/--/-- [...] or periapical radiolucencies at the remaining dentition. [facility] DUPLEX CAROTID BILATERAL Final Result CT ANGIO [...] plan with the resident/fellow. Chadwick Heart MD veneer measurer Department of Medicine Division of Cardiovascular Medicine [facility] * Ele Saavedra MD - 04/01/2022 12:[address] [facility] Medicine Progress Note Patient: Finesse Prather, : [...] Saavedra MD - 03/31/2022 9:[address] [facility] Medicine Progress Note Patient: Finesse Prather, : [...] may be able to get images from [place]. Needs dentistry evaluation. Carotid doppler with 1-49% [...] Petersen MD - 03/30/2022 12:[address] [facility] Medicine Progress Note Patient: Finesse Prather, : [...] Petersen MD - 03/29/2022 11:[address] [facility] Medicine Progress Note Patient: Finesse Prather, : [...] Ptt/Pt/Inr: 28.1/12.8/1.0 (03/29 34) [facility]* Nursing Notes - Guadalupe Matta RN [...] breath. Sent secure chatto Dr Matute. Waiting confidential secretary back at this time. 0952: Dr Cox voiced understanding. No new orders obtained. [facility]01-07-2023 Miscellaneous Notes* Nursing Notes - Guadalupe Matta [...] breath. Sent secure chatto Dr Matute. Waiting confidential secretary back at this time. 0952: Dr Cox voiced understanding. No new orders obtained. * Brief Op Note - Tito Holguin MD - 04/04/2022 11:16 AM EST Preliminary Report - Brief Cardiac Catheterization Procedure Note Finesse Prather ([id number]) Pre Procedural Diagnosis Coronary artery disease involving [place] coronary artery of [place] heart with unstable angina pectoris [I25.110] NSTEMI [...] Jacobo Alfaro MD - Fellow Procedural Staff Rigging Up Worker: CHIQUI Hernandez Manager Field Investigations: RT Daphne Sedation Nurse: Tomas Gibson RN [...] area. Following page sent to ACS resident, 646Cindy Prather: Right groin site oozing increased, slight hardness near the top of incision. Any orders? Thanks Digna [id number] 1848: ACS resident at bedside. 1902: ACS [...] Brief Cardiac Catheterization Procedure Note Finesse Prather ([id number]) Pre Procedural Diagnosis Coronary artery disease involving [place] coronary artery of [place] heart with unstable angina pectoris [I25.110] NSTEMI [...] Tito Bartholomew MD - Fellow Procedural Staff Rigging Up Worker: Mira Caban RN; Ralf Martin, FRANCISCO; Pelon Gilliam RN Documenter: Kathy Barbour RN Full report to follow Tito Bartholomew MD April 01, 2022 2:56 PM * Nursing Notes - Maty Latham RN - 04/01/2022 6:02 AM EST 5040 Natalia: awoke with chest pain and bilateral arm numbness. Titrating Nitro Gtt, currently at 30mcg/hr, c/o SOB on 2LNC 97% B/P 140/64. Maty SINGH [id number] Copy of text page sent to MD confidential secretary for RH service, await response. 0615: 5040 Natalia: Nitro gtt @50mcg/min, chest pain resolving, b/p 129/61 HR 86. Son, who is POA isat bedside and has questions/concerns hed like to address with MD. Maty SINGH [id number], copy of text page sent to MD confidential secretary for RH service. . * Plan of [...] not available yet. Thank you, [place] [id number], copy of text page sent to MD confidential secretary for KEM narayanamor, await response. * Nursing [...] the patient continues to have repeated episodes, 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 * Significant Event - Henrique Petersen MD - 03/29/2022 6:32 PM EST This is a 87-year-old female with recently diagnosed triple-vessel coronary artery disease transferred to [facility] for evaluation for CABG. She also [...] patient is 35 minutes Henrique Petersen MD Development Planner of Internal Medicine Division of Hospital Medicine [facility] * Plan of Care - Kaylin Collado [...] be discharge to home. [facility]* Brief Op Note - Tito Holguin MD - 04/04/2022 11:16 AM EST Preliminary Report - Brief Cardiac Catheterization Procedure Note Finesse Prather ([id number]) Pre Procedural Diagnosis Coronary artery disease involving [place] coronary artery of [place] heart with unstable angina pectoris [I25.110] NSTEMI [...] Jacobo Alfaro MD - Fellow Procedural Staff Rigging Up Worker: CHIQUI Hernandez Manager Field Investigations: RT Daphne Sedation Nurse: Tomas Gibson RN Documenter: Barbie Garg RN Full report to follow Tito Holguin MD April 04, 2022 11:16 AM [facility] Work Phone: [phone] Note* Nursing Notes - Kang Landers RN - 04/04/2022 7:40 AM EST Pt b/p elevated 191/76. Acute coronary team at bedside and made aware. No new orders at this time. Kang Landers RN [facility]01-06-2023 Note* Plan of Care - Monet Castle RN - 04/04/2022 5:06 AM EST Problem: Patient Care Overview Goal: Plan of Care Review Outcome: Met This Shift Goal: Individualization & Mutuality Outcome: Met This Shift [facility]01-06-2023 NoteAcute Coronary Syndrome (ACS): Initial Evaluation and Management: https://[facility]/sites/ebm/Documents/Guidelines/Acute%20Coronary%20Sy ndrome.pdf#search=troponin [facility]01-06-2023 NoteAcute Coronary Syndrome (ACS): Initial Evaluation and Management: https://[facility].[facility]/sites/ebm/Documents/Guidelines/Acute%20Coronary%20Sy ndrome.pdf#search=troponin [facility]01-06-2023 Note* Plan of Care - Lino Trotter [...] 180 Lino Trotter MD Internal Medicine PGY3 [facility] Work Phone: [phone]) 889-917001-05-2023 Note* Plan of Care - Kaylin Collado [...] outcomes by discharge/transition of care. Outcome: Ongoing [facility]01-05-2023 Note* Plan of Care - Madelyn Salvador [...] outcomes by discharge/transition of care. Outcome: [facility]ing [facility] Discharge instructions* Discharge Instructions* John Razo RN - 04/02/2022 9:07 AM EST Images from the original note were not included. For more information about Heart Failure please visit this link for an online interactive workbook or QR code below: [email or web address] * Attachments The following attachments cannot be sent through Care Everywhere. * Stent: How to Protect ([facility]) (Yoruba) documented in this [facility]-2023 Note* Nursing Notes - Digna Cardenas RN - 04/01/2022 6:42 PM EST 1835: Assessed pts R groin site and noticed increased oozing/hardened area. Following page sent to ACS resident, 3100 Natalia: Right groin site oozing increased, slight hardness near the top of incision. Any orders? Thanks Digna [id number] 1848: ACS resident at bedside. 1902: ACS resident holding manual pressure at bedside. [facility]01-03-2023 Note* Plan of Care - Digna Cardenas [...] outcomes by discharge/transition of care. Outcome: Ongoing [facility]01-03-2023 Note* Brief Op Note - Tito Bartholomew MD - 04/01/2022 2:56 PM EST Preliminary Report - Brief Cardiac Catheterization Procedure Note Finesse Prather ([id number]) Pre Procedural Diagnosis Coronary artery disease involving [place] coronary artery of [place] heart with unstable angina pectoris [I25.110] NSTEMI [...] Tito Bartholomew MD - Fellow Procedural Staff Rigging Up Worker: Mira Caban RN; Ralf Martin, FRANCISCO; Pelon Gilliam, FRANCISCO Documenter: Kathy Barbour RN Full report to follow Tito Bartholomew MD April 01, 2022 2:56 PM [facility]01-03-2023 Note* Nursing Notes - Maty Latham RN - 04/01/2022 6:02 AM EST 5040 Natalia: awoke with chest pain and bilateral arm numbness. Titrating Nitro Gtt, currently at 30mcg/hr, c/o SOB on 2LNC 97% B/P 140/64. Maty SINGH [id number] Copy of text page sent to MD confidential secretary for RH service, await response. 0615: 5040 Natalia: Nitro gtt @50mcg/min, chest pain resolving, b/p 129/61 HR 86. Son, who is POA isat bedside and has questions/concerns hed like to address with MD. Maty SINGH [phone], copy of text page sent to MD confidential secretary for RH service. . [facility]01-03-2023 Note* Plan of Care - Maty Latham [...] (Acute Coronary Syndrome) (Adult) CPG). Outcome: Ongoing [facility]01-02-2023 Consult note* Trav Ray, DDS - 03/31/2022 [...] These extractions can be done in the [facility] as an inpatient service. [...] transport bed/wheelchair to dental chair, please notify [facility] dental clinic in advance of appointment. Please call [phone] to schedule this appointment during normal business hours (M-F 7:30-4:30 pm) with the dental clinic. Due to the large number of phone calls the clinic is currently receiving,please leave a message at this number. [facility] staff [facility] Transportation to our clinic should also be arranged. Treatment will take an estimated time of 2 hours. Thank you for involving us in the care of this patient. Please do not hesitate to call me at [phone] you have any questions. Pager ID:[phone] Dr. Ramon Consult[address] with Dr. Vargas [facility]01-02-2023 Consult note* Trav Ray DDS - 03/31/2022 [...] , , UD [facility] COMM[facility]: For Blood Glucose LESS [...] tablet 25 mg, 25 mg, Oral, Q12H, aTnya Hylton MD, 25 mg at 03/31/22 0939 [...] These extractions can be done in the [facility] as an inpatient service. [...] transport bed/wheelchair to dental chair, please notify [facility] dental clinic in advance of appointment. Please call [phone] to schedule this appointment during normal business hours (M-F 7:30-4:30 pm) with the dental clinic. Due to the large number of phone calls the clinic is currently receiving,please leave a message at this number. Clinic staff will return the call to schedule the patient inthe [facility] clinic. Transportation to our clinic should also be arranged. Treatment will take an estimated time of 2 hours. Thank you for involving us in the care of this patient. Please do not hesitate to call me at [phone] you have any questions. Pager ID:[phone] Dr. [...] questions or concerns. Christie Bartholomew MD Interventional Master Esthetician Cardiac testing: Cath Results 03/21/22 (outside institution): [...] . Finesse Prather in consultation at the [facility] on 03/31/2022 for evaluation of her [...] echocardiogram as above. She was transferred to [facility] on 03/28/2022 for evaluation for revascularization of coronaries and valve replacement. Since arriving at [facility] she has been transitioned to oral [...] CP persists after 1st dose, call 911 Mora 4-Vgekhg-Xdjvwosetv (GLAMSQUAD) 250-2.5-0.5 MG capsule Take 1 capsule by [...] duties. Is on plavix - per her instructor looping, she is to continue due to PAD [...] pain and dyspnea, found to have NSTEMI. [facility] reviewed - reasonable targets for RCA, OM, [...] TAVR CT for planning. [facility]* Tito Bartholomew MD - 03/31/2022 [...] questions or concerns. Christie Bartholomew MD Interventional Master Esthetician Cardiac testing: Cath Results 03/21/22 (outside institution): [...] . Finesse Prather in consultation at the [facility] on 03/31/2022 for evaluation of her [...] echocardiogram as above. She was transferred to [facility] on 03/28/2022 for evaluation for revascularization of coronaries and valve replacement. Since arriving at [facility] she has been transitioned to oral [...] CP persists after 1st dose, call 911 Mora 2-Cdpocp-Bemeiwofmw (Enhanced [employer] Eye Yotpo) 250-2.5-0.5 MG capsule Take 1 capsule by [...] 10/12/2010 No results found for: TROP, BNP [facility] Work Phone: 1(658) 597-667101-02-2023 Note* Plan of Care - Kaylin Collado [...] outcomes by discharge/transition of care. Outcome: Ongoing [facility]01-02-2023 Note* Plan of Care - Maty Latham [...] outcomes by discharge/transition of care. Outcome: Ongoing [facility]01-02-2023 Note* Nursing Notes - Maty Latham RN - 03/31/2022 4:03 AM EST 5040 Natalia: would you please increased apresoline PRN frequency to Q4hrs? She needs a dose but it's not available yet. Thank you, Maty SINGH [id number], copy of text page sent to MD confidential secretary for lexus, await response. [facility]01-01-2023 Note* Nursing Notes - Kaylin Collado RN [...] reports diminished pain @1837 Nitroglycerin gtt started [facility]01-01-2023 Note* Plan of Care - Sabas Petersen [...] add nitroglycerin infusion Sabas Petersen MD [facility]01-01-2023 Note* Plan of Care - Kaylin Collado [...] outcomes by discharge/transition of care. Outcome: Ongoing [facility]01-01-2023 Note* Plan of Care - Shelly Thomas [...] ultrasound Mary Thomas MD Cardiothoracic Surgery [phone] [facility]12-31-2022 Note* Plan of Care - Monet Castle [...] discharge/transition of care. Outcome: Met This Shift [facility]12-31-2022 NoteAcute Coronary Syndrome (ACS): Initial Evaluation and Management: [email or web address]/Acute%20Coronary%20Sy ndrome.pdf#search=troponin [facility]12-31-2022 NoteAcute Coronary Syndrome (ACS): Initial Evaluation and Management: [email or web address]/Acute%20Coronary%20Sy ndrome.pdf#search=troponin [facility]12-31-2022 Note* Nursing Notes - Kaylin Collado RN [...] obtained showing normal results, BP: 103/50 HR:67 [facility]12-31-2022 NoteAcute Coronary Syndrome (ACS): Initial Evaluation and Management: [email or web address]/Guidelines/Acute%20Coronary%20Sy ndrome.pdf#search=troponin [facility]12-31-2022 Note* Significant Event - Henrique Petersen MD [...] the patient continues to have repeated episodes, 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 [facility] Work Phone: [phone] Note* Significant Event - Henrique Petersen MD - 03/29/2022 6:32 PM EST This is a 87-year-old female with recently diagnosed triple-vessel coronary artery disease transferred to [facility] for evaluation for CABG. She also [...] patient is 35 minutes Henrique Petersen MD Development Planner of Internal Medicine Division of Hospital Medicine [facility], [facility]12-31-2022 NoteAcute Coronary Syndrome (ACS): Initial Evaluation and Management: [email or web address]/Guidelines/Acute%20Coronary%20Sy ndrome.pdf#search=troponin [facility]12-31-2022 Consult note* Shelly Thomas MD - 03/29/2022 [...] duties. Is on plavix - per her instructor looping, she is to continue due to PAD [...] pain and dyspnea, found to have NSTEMI. [facility] reviewed - reasonable targets for RCA, OM, [...] echocardiogram and obtain TAVR CT for planning. [facility] Work Phone: [phone] Note* Plan of Care - Kaylin Collado [...] factors/behavior modification for fall/injury prevention Outcome: Ongoing [facility]12-30-2022 Note* Certification - Tanya Hylton MD - 03/28/2022 10:53 PM EST I certify that this patient requires inpatient services at this time. I anticipate the expected length of stay will include at least two midnights. Inpatient services are due to the following medicalconcerns aortic stenosis and NSTEMI. Plans for post hospitalization care will be discharge to home. [facility]12-30-2022 History and physical note* Tanya Hylton MD [...] was determined that she would transfer to [facility] forevaluation for high risk PCI vs CABG [...] WBC- 9.7, Hgb- 14.9, Plat- 242 hsTrop- 45-->01527 BNP: 549 LFTs wnl Review of Systems [...] Sig: Take 1 tablet by mouth daily. Mora 0-Hgcnmw-Adqesdulto (GLAMSQUAD) 250-2.5-0.5 MG capsule Sig: Take 1 capsule [...] erythema Skin: No jaundice or rash Neuro: technician terminal and repeater 3-7, 9-11 intact and equal. Strength grossly [...] 03/24/22 NSR, LVH, TWI I, AVL, V2-V6. [facility] History and physical note* Tanya Hylton [...] was determined that she would transfer to [facility] forevaluation for high risk PCI vs CABG [...] WBC- 9.7, Hgb- 14.9, Plat- 242 hsTrop- 45-->33875 BNP: 549 LFTs wnl Review of Systems [...] Sig: Take 1 tablet by mouth daily. Mora 4-Nuzxok-Fcvxvpboxl (Enhanced [employer] Eye Yotpo) 250-2.5-0.5 MG capsule Sig: Take 1 capsule [...] erythema Skin: No jaundice or rash Neuro: technician terminal and repeater 3-7, 9-11 intact and equal. Strength grossly [...] I, AVL, V2-V6. [facility]* Diagnosis Onset Date Resolution Status Chest pain acute Essential hypertension acute Moderate to severe aortic stenosis acute Atherosclerotic heart diseas e of [place] coronary artery without angina pectoris chronic HLD (hyperlipidemia) chronic History of aortic stenosis a cute History of diabetes mellitus acute Hypoxia acute Non-ST elevated myocardial infarction acute Pulmonary edema acute Respiratory failure acute [facility] Work Phone: Evaluation note* Diagnosis Onset Date Resolution Status Chest pain acute Essential hypertension acute Moderate to severe aortic stenosis acute Atherosclerotic heart diseas e of [place] coronary artery without angina pectoris chronic HLD (hyperlipidemia) chronic CAD (coronary artery disease), [place] coronary artery acute Carotid stenosis, left acute [...] artery acute Atherosclerotic heart diseas e of [place] coronary artery without angina pectoris chronic Diabetes mellitus, type 2 ch ronic HLD (hyperlipidemia) chronic 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 PAD (peripheral artery disease) chronic [facility] Work Phone: Evaluation note* Diagnosis Stented coronary artery- Primary Postsurgical percutaneous transluminal coronary angioplasty status Acute chest pain Chest pain, unspecified Acute electrocardiogram changes Uncontrolled hypertension Unspecified essential hypertension Nonrheumatic aortic valve stenosis Aortic valve disorders Coronary artery disease involving [place] coronary artery of [place] heart with unstable angina pectoris NSTEMI (non-ST elevated myocardial infarction) Acute myocardial infarction, subendocardial infarction, episode of care unspecified Coronary artery disease involving [place] coronary artery of [place] heart with angina pectoris Acute on chronic diastolic heart failure Essential hypertension Unspecified essential hypertension Acute respiratory failure with hypoxia Acute respiratory failure Aortic valve stenosis, etiology of cardiac valve disease unspecified Aortic stenosis Aortic valve disorders Acute on chronic diastolic heart failure Coronary artery disease involving [place] coronary artery of [place] heart with angina pectoris Essential hypertension Unspecified essential hypertension Acute respiratory failure with hypoxia Acute respiratory failure Type 2 Diabetes (A1C > 6.49%) Coronary artery disease involving [place] coronary artery of [place] heart with unstable angina pectoris NSTEMI (non-ST elevated myocardial infarction) Acute myocardial infarction, subendocardial infarction, episode of care unspecified Coronary artery disease involving [place] coronary artery of [place] heart with unstable angina pectoris NSTEMI (non-ST elevated myocardial infarction) Acute myocardial infarction, subendocardial infarction, episode of care unspecified documented in this encounter [facility]* Diagnosis Onset Date Resolution Status Chest pain acute Essential hypertension acute Moderate to severe aortic stenosis acute Atherosclerotic heart diseas e of [place] coronary artery without angina pectoris chronic HLD (hyperlipidemia) chronic CAD (coronary artery disease ), [place] coronary artery acute Carotid stenosis, left acute [...] artery acute Atherosclerotic heart diseas e of [place] coronary artery without angina pectoris chronic Diabetes mellitus, type 2 ch ronic HLD (hyperlipidemia) chronic 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 PAD (peripheral artery disease) chronic [facility] Work Phone: Evaluation note* Diagnosis Nonrheumatic aortic valve stenosis Aortic valve disorders Acute on chronic diastolic heart failure Acute respiratory failure with hypoxia Acute respiratory failure Aortic valve stenosis, etiology of cardiac valve disease unspecified S/P TAVR (transcatheter aortic valve replacement) Aortic valve stenosis, etiology of cardiac valve disease unspecified documented in this encounter [facility] noteNo assessment information available [facility] Work Phone: Reason for referral (narrative)* Consultation (Routine) - New Request Specialty Diagnoses / Procedures Referred By Parish t Referred To Contact Cardiovascular Medicine Diagnoses NSTEMI (non-ST elevated myocardial infarction) Coronary artery disease involving [place] coronary artery of [place] heart with angina pectoris Aortic valve stenosis, etiology of cardiac valve disease unspecified Eder Jaime Jr., MD [address] [place] [address] Referral ID Status Reason Start Date Expiration Date V isits Requested Visits Authorized [id number] New Request 04/05/2022 04/30/2023 1 1 Scheduling Instructions Please schedule this patient in the Department of Cardiology. Ideally interventional cardiology for TAVR eval. * MRI/CAT Scan (Routine) - New Request Specialty Diagnoses / Procedures Referred By Contac t Referred To Contact Diagnoses Aortic valve stenosis, etiology of cardiac valve disease unspecified Procedures CT ANGIO TAVR EVALUATION RI CT ANGIO ABD&PLVIS CNTRST MTRL W/WO CNTRST IMGES RI RECON, CTA FOR SURG PLAN RI CHG CT ANGIO HRT CORNRY ART/BYPASS GRFTS CONTRST 3D POST Addison Hernandez, Eder Lopez MD [address] [place] [address] Referral ID Status Reason Start Date Expiration Date V isits Requested Visits Authorized [id number] New Request 04/05/2022 04/30/2023 1 1 * Radiology (Emergency) - New Request Specialty Diagnoses / Procedures Referred By Contac t Referred To Contact Procedures ECG [facility] MD [address] [place] [address] Referral ID Status Reason Start Date Expiration Date V isits Requested Visits Authorized [id number] New Request 04/04/2022 04/29/2023 1 1 * (Routine) - New Request Specialty Diagnoses / Procedures Referred By Contac t Referred To Contact Procedures PLATELET MONITORING PER PROTOCOL [facility] MD [address] [place] [address] Referral ID Status Reason Start Date Expiration Date V isits Requested Visits Authorized [id number] New Request 04/01/2022 04/26/2023 1 1 * Radiology (Emergency) - New Request Specialty Diagnoses / Procedures Referred By Contac t Referred To Contact Procedures ECG [facility] MD [address] [place] [address] Referral ID Status Reason Start Date Expiration Date V isits Requested Visits Authorized [id number] New Request 04/01/2022 04/26/2023 1 1 * Consultation (Routine) - New Request Specialty Diagnoses / Procedures Referred By Contact Referred To Contact Cardiovascular Medicine Diagnoses Stented coronary artery [facility] MD [address] [place] [address] Referral ID Status Reason Start Date Expiration Date V isits Requested Visits Authorized [id number] New Request 04/05/2022 04/30/2023 1 1 Scheduling Instructions Clinic to contact patient for scheduling at most appropriate location. * (Routine) Specialty Diagnoses / Procedures Referred By Contac t Referred To Contact Tito Bartholomew MD [address] [place] [address] [address] [place] [address] Referral ID Status Reason Start Date Expiration Date Visits Re quested Visits Authorized * Radiology (Routine) - New Request Specialty Diagnoses / Procedures Referred By Contac t Referred To Contact Procedures ECG Sabas Petersen MD [address] [place], [place] [id number] Referral ID Status Reason Start Date Expiration Date V isits Requested Visits Authorized [id number] New Request 03/29/2022 04/23/2023 1 1 * Radiology (Routine) - New Request Specialty Diagnoses / Procedures Referred By Pairsh t Referred To Contact Procedures ECG Tanya Hylton MD [address] [address] Referral ID Status Reason Start Date Expiration Date V isits Requested Visits Authorized [id number] New Request 03/28/2022 04/22/2023 1 1 [facility] (narrative)No reason for referral information availableDixmont Oceana Therapeutics Services Work Phone: Reason for visit Narrative* Auth/Cert Specialty Diagnoses / Procedures Referred By Parish del angel Referred To Contact Diagnoses CAD, severe aortic stenosis Sabas Petersen MD [address] [place] [phone] [facility] [address] [place] [address] Referral ID Status Reason Start Date Expiration Date Visits Re quested Visits Authorized [id number] 1 1 [facility] Narrative* Auth/Cert Specialty Diagnoses / Procedures Referred By Contnia t Referred To Contact Diagnoses SOB on BIPAP Patricia Schrader MD, PhD [address] [address] [facility] [address] [place] [phone] Referral ID Status Reason Start Date Expiration Date Visits Re quested Visits Authorized [id number] 1 1 [facility] Chief Complaint and Reason for Visit Chief Complaint PER L.LORSON CHEST PAIN CHF Reason for Visit Chest pain Essential hypertension Moderate to severe aortic stenosis Atherosclerotic heart disease of [place] coronary artery without angina pectoris HLD (hyperlipidemia) [...] severe aortic stenosis Atherosclerotic heart disease of [place] coronary artery without angina pectoris HLD (hyperlipidemia) CAD (coronary artery disease), [place] coronary artery Carotid stenosis, left Chest pain [...] internal carotid artery Atherosclerotic heart disease of [place] coronary artery without angina pectoris Diabetes mellitus, [...] severe aortic stenosis Atherosclerotic heart disease of [place] coronary artery without angina pectoris HLD (hyperlipidemia) CAD (coronary artery disease), [place] coronary artery Carotid stenosis, left Chest pain [...] internal carotid artery Atherosclerotic heart disease of [place] coronary artery without angina pectoris Diabetes mellitus, [...] severe aortic stenosis Atherosclerotic heart disease of [place] coronary artery without angina pectoris HLD (hyperlipidemia) CAD (coronary artery disease), [place] coronary artery Carotid stenosis, left Chest pain [...] internal carotid artery Atherosclerotic heart disease of [place] coronary artery without angina pectoris Diabetes mellitus, [...] Date/ Time Name of Medical Power of Front Office Help Beto Prather March 20, 2022 2:30pm Living Will Yes March 20 022 2:30pm Power of Front Office Help Yes March 20, 2022 2:30pm Latest Code [...] Date/ Time Name of Medical Power of Front Office Help Beto Prather March 20, 2022 2:30pm Name of Medical Power of Front Office Help STAS PRATHER April 16, 2022 9:22pm Living Will Yes April 16 9:22pm Power of Front Office Help Yes April 16, 2022 9:22pm Advance Directive Response Recorded Date/ Time Name of Medical Power of Front Office Help Beto Prather March 20, 2022 2:30pm Name of Medical Power of Front Office Help STAS PRATHER April 16, 2022 9:22pm Name of Medical Power of Front Office Help Stas Prather April 19, 2022 10:09pm Living Will Yes April 19 10:09pm Power of Front Office Help Yes April 19, 2022 10:09pm Latest Code [...] MONITOR, CARDIAC Kailey Paniagua MD [address] [place] [phone] Referral ID Status Reason Start Date Expiration Date V isits Requested Visits Authorized [id number] New Request 04/26/2022 05/21/2023 1 1 Specialty Diagnoses / Procedures Referred By Contac t Referred To Contact Cardiovascular Medicine Diagnoses Aortic valve stenosis, etiology of cardiac valve disease unspecified Kailey Paniagua MD [address] [place] [phone] Referral ID Status Reason Start Date Expiration Date V isits Requested Visits Authorized [id number] New Request 04/25/2022 05/20/2023 1 1 Scheduling Instructions Please schedule this patient in the Department of Cardiology. Specialty Diagnoses / Procedures Referred By Contac t Referred To Contact Procedures MOBILE CARDIAC TELEMETRY Jacinta Sebastian APRN-CNP [address] [place], [place] [id number] Referral ID Status Reason Start Date Expiration Date V isits Requested Visits Authorized [id number] New Request 04/25/2022 05/20/2023 1 1 Specialty Diagnoses / Procedures Referred By Contac t Referred To Contact Jacinta Sebastian APRN-CNP [address] [place], [place] [phone] Referral ID Status Reason Start Date Expiration Date Visits Re quested Visits Authorized Specialty Diagnoses / Procedures Referred By Contac t Referred To Contact Procedures NO HEPARIN OR ENOXAPARIN ORDERED Jacinta Sebastian APRN-SCALP SPECIALIST [address] [place] [address] Referral ID Status Reason Start Date Expiration Date V isits Requested Visits Authorized [id number] New Request 04/25/2022 05/20/2023 1 1 Specialty Diagnoses / Procedures Referred By Contac t Referred To Contact Procedures PATIENT ON THERAPEUTIC ANTICOAGULATION Jacinta Sebastian, RADIOLOGIC TECH-SCALP SPECIALIST [address] [place] [phone] Referral ID Status Reason Start Date Expiration Date V isits Requested Visits Authorized [id number] New Request 04/25/2022 05/20/2023 1 1 Specialty Diagnoses / Procedures Referred By Contac t Referred To Contact Procedures ECG DimasChristopher Jacinta Coronel, RADIOLOGIC TECH-SCALP SPECIALIST [address] [place] [phone] Referral ID Status Reason Start Date Expiration Date V isits Requested Visits Authorized [id number] New Request 04/25/2022 05/20/2023 1 1 Specialty Diagnoses / Procedures Referred By Contac t Referred To Contact Radha Chinchilla MD [address] [facility] [address] [place] [address] Specialty Diagnoses / Procedures Referred By Contac t Referred To Contact Procedures DVT/VTE RISK ASSESSMENT Patricia Schrader MD, PhD [address] [facility] [address] [place] [address] Referral ID Status Reason Start Date Expiration Date V isits Requested Visits Authorized [id number] New Request 04/20/2022 05/15/2023 1 1 Summary [...] Salvador, RN) 0424 (See Alternative - Provider: Cynthai Christiansen, FRANCISCO) midazolam (VERSED) injection (CANCELED) Intravenous, [...] glucose is greater than 200md/dl, then notify Chemical Plant Operator. And BLOOD GLUCOSE (POC DEVICE) (CANCELED) Routine, [...] 50% needed, contact pharmacy or obtain from [employer] [facility] ++
And glucose (GLUTOSE) 40 % [...] at 1703, Until Specified
Who to Notify: Chemical Plant Operator
For all Blood Glucose LESS THAN 80 mg/dl, notify Chemical Plant Operator after treatment per Hypoglycemia in Non- Adults [...] Until Discontinued 08 (Given - Provider: Nathalie Damno RN) 08 (Given - Provider: Tasia Mancia [...] 2 g, Intravenous, Administer over 30 Minutes, CAR JOCKEY TO PROCEDURE, 1 dose, Starting on Thu04/25/22 at 0600, Until Thu04/25/22 at 0955, Other, Preoperative antibiotics, Nursing to obtain from [facility] pyxis. Call pharmacy for emergent doses or [...] 50% needed, contact pharmacy or obtain from [facility] ++ , Post-op/Post-Proc Docusate (COLACE) capsule [...] water. 0706 (Given - Provid er: Malika Dahliwal RN) Protamine injection (CANCELED) Administer over 5 [...] 1,000 mg, Intravenous, Administer over 60 Minutes, CAR JOCKEY TO PROCEDURE, 1 dose, Starting on Thu04/25/22 at 0600, Until Thu04/25/22 at 0900, Other, Preoperative antibiotics, Nursing to obtain from [facility]. Call pharmacy for emergent doses or direct [...] glucose is greater than 200md/dl, then notify Chemical Plant Operator. And BLOOD GLUCOSE (POC DEVICE) (CANCELED) Routine, [...] 50% needed, contact pharmacy or obtain from [employer] [facility] ++
And glucose (GLUTOSE) 40 % [...] at 0417, Until Specified
Who to Notify: Chemical Plant Operator
For all Blood Glucose LESS THAN 80 mg/dl, notify Chemical Plant Operator after treatment per Hypoglycemia in Non- Adults Clinical Practice Guideline And Carbohydrate counts with meals (CANCELED) Routine, CONTINUOUS, Starting on 04/20/22 at 0417, Until Specified
Carbohydrate counts are to be done after each patient meal and with snack. Care Teams (unrecognized sec tion and content) Spectroscopist Relationship Specialty Start Date End Date Murphy Burton MD [address] [place] [address] PCP - General Family Medicine 03/29/22 Team [...] Callejas MD Admit Provider, Other Provider Act uyko Dr. Yuli Lucas MD Other Provider Active Dr. Antwon Malin MD Attending Provider, Other Provid er Active Team Status: Active Member Role Status Dates Dr. Murphy Burton DO Primary Care Provider Active Dr. Helio Espinoza MD Emergency Provider Active Dr. Syh Callejas MD Admit Provider, Other Provider Act [...] Dr. Reno Curry DO Emergency Provider Active Spectroscopist Relationship Specialty Start Date End Date Murphy Burton MD [address] [place] [address] PCP - General Family Medicine 03/29/22 Spectroscopist Relationship Specialty Start Date End Date Murphy Burton MD [address] [place] [address] PCP - General Family Medicine 03/29/22 Team [...] (transcatheter aortic valve replacement), bioprosthetic Procedures ECHOCARDIOGRAM RI ECHO HEART XTHORACIC,COMPLETE W DOPPLER Kalen'Jacinta Krishnan, RADIOLOGIC TECH-SCALP SPECIALIST [address] [place] [address] [place] [address] Referral ID Status Reason Start Date Expiration Date Visits Re quested Visits Authorized [id number] Closed 04/25/2022 05/20/2023 1 1 INFORMATION SOURCE (unrecogn ized section and content) DATE CREATED AUTHOR 06/13/2022 [facility] DATE CREATED AUTHOR AUTHOR'S MARIBEL AMAYA 02/08/2025 [facility] FOR RECORDS PERTAINING TO PATIENTS WHO [...] BE BASED ON THE PRIMARY CLINICAL RECORDS. [employer] provides no warranty or guarantee of the accuracy or completeness of information in this document.
--- OUTSIDE RECORDS SUMMARY | 2025-02-27 22:41 | XMS RPT_ITS | CCD ---
Author Organization 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 Murphy Burton Primary Care Provider Dr. Murphy Burton Referring Provider Abilio ZIMMERMAN, [place] Jeni Ramirez Attending Provider Dr. Narendra Almonte Attending Provider Dr. Helio Espinoza Emergency Provider Dr. Shy Callejas Admit Provider Dr. Shy Callejas Attending Provider Dr. Shy Callejas Other Provider Dr. Yuli Lucas Other Provider Dr. uYli Lucas Attending Provider Dr. Antwon Malin Attending [...] Murphy Burton DO Primary Care Provider [phone] Dr. Murphy Burton DO Referring Provider Jeni Grijalva Attending Provider Murphy Burton Referring [...] Attending Unavailable Papi Ruiz Attending Unavailable Abimael, [place] Consulting Unavailable Joseph Papi Consulting Unavailable Antwon Vidal Admitting Unavailable Josephine, Murphy Primary Care Unavailable Papi Ruiz Attending Unavailable Antwon Vidal Consulting Unavailable Abimael Pillo Consulting Unavailable Abimael, [place] Attending Unavailable Josephine, Murphy Primary Care Unavailable Josephine, Murphy Referring Unavailable Jeni Grijalva Attending Unavail able Allergies Allergy Classification Reported Allergen(s) Allergy Type Date of Onset Reaction(s) Facility (7 sources) rosuvastatin Drug Allergy 2 Myalgias [facility] (7 sources) Simvastatin Drug Allergy 2 myalgias [facility] (3 sources) Hmg-Coa Reductase Inhibitors (Statins) Propensity to adverse reactions to drug 2 Muscle Spasm, Pain [facility] (1 source) rosuvastatin Drug Allergy 5 [facility] (1 source) Simvastatin Drug Allergy 5 [facility] Medications Current Medications Medication Drug [...] One tablet by mouth twice daily LISINOPRIL [id number] Dontrell Dawson MD Start: 07-11-2016 End: 03-04-2017 take 1 tablet by mouth once daily Lisinopril 20 MG tablet Discontinued 20 mg PO DAILY 30 July 11, 2016 10:50am March 04, 2017 4:06pm lutein 2.5 mg / omega-3 acid ethyl esters (mcc) 250 mg / zeaxanthin 0.5 mg oral capsule (8 sources) Start: 01-28-2021 End: 04-03-2022 Qqvzl-2-Faq-Ouz-Tww-Safuftsr in ([facility]) 250-2.5-0.5 mg capsule [...] DAILY March 20, 2022 1:00am SUPPLEMENT OMEGA 3-DPYJAY-FMDFXONXUI PO (3 sources) OMEGA 3-LUTEIN-Z EAXANTHIN PO Take 0.5 fluid ounces by mouth 2 times daily. 0 Active Dulce-3 Fatty Acids (OMEGA-3 FISH OIL PO) (3 sources) take 2 capsules by mouth once daily Dulce-3 Fatty Acids (OMEGA-3 FISH OIL PO) Take [...] PO DAILY April 28, 2018 2:26pm [facility] atorvastatin 20 mg oral tablet (20 [...] 25 mg castor oil 0.788 mg/mg / turkish balsam 0.087 mg/mg topical ointment (1 source) [...] TABS One tablet by mouth daily HYDROCHLOROTHIAZIDE [id number] Jeni Knox PA-C Insulin lispro (HUMALOG) injection [...] tablet by mouth twice daily METOPROLOL TARTRATE [id number] Jessica King RN Start: 07-18-2016 take 1 tablet by claudio th twice daily METOPROLOL TARTRATE 25 MG TABS One half tablet by mouth twice daily METOPROLOL TARTRATE [id number] Dontrell Dawson MD Start: 07-11-2016 End: 03-06-2017 [...] tablet by mouth at bedtime. ROSUVASTATIN CALCIUM [id number] Dontrell Dawson MD simvastatin 40 mg oral [...] disease (20 sources) Atherosclerotic heart disease of [place] coronary artery without angina pectoris; Translations: [Coronary [...] (7 sources) Long-term drug therapy; Translations: [Other half-way (current) drug therapy] Onset: 7 11-28-2016 Past [...] Synergy 07/10/16 Other aftercare (11 sources) Other terminal gauger (current) drug therapy; Translations: [Other terminal gauger (current) drug therapy] Onset: 08-13-2016 11-28-2016 Episodic [...] Facility Cardiology Visit Reporton Cardiology Visit Report [facility] [address] [place] [address] OFFICE VISIT Date of Service: 02/07/25 MR#: [id number] Acct: [id number] Name: FINESSE PRATHER Rep #: [id number] : 1935 Provider: YASH jacobson Age/Sex: 89/F Location[place] [facility] Status: Signed HPI HPI History of Present Illness Details: Finesse Prather is an 89 year-old white female with a history of CAD status post RCA PTCA/stent (2016), hyperlipidemia, hypertension, moderate to severe aortic valve stenosis, with a history of bilateral carotid artery endarterectomy-remote. She had a TIA in 11/2020. She was evaluated [facility] in February 2022 for shortness of [...] 98 Intake Visit Reasons: 1 Y FU Manager Shift Required: No Is patient in pain?: No Allergies rosuvastatin Adverse Reaction (Severe, Verified 02/07/25 09:45) Myalgias simvastatin Adverse Reaction (Severe, Verified 02/07/25 09:45) myalgias Medications ???Medication ???Instructions ???Recorded ???Confirmed ???Type nitroglycerin 0.4 mg sublingual 0.4 mg sublingual Q5M PRN Chest 02/07/25 Rx tablet Pain #20 tabs aspirin 81 mg tablet,delayed 81 mg PO DAILY [facility] 02/07/25 History release omega-3 250 wl-leo-syb-lutein 2.5 1 cap PO BID [facility] 01/28/21 02/07/25 History mg-zeaxanthin 0.5 mg capsule ([facility]) vitamin B complex 1 cap PO [...] Aortic valve disorders Atherosclerotic heart disease of [place] coronary artery without angina pectoris HLD (hyperlipidemia) Occlusion and stenosis of right carotid artery PAD (peripheral artery disease) Surgical History History of transcatheter aortic valve replacement (TAVR) ( 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 Normal [facility] Cardiology Visit Reporton Cardiology Visit Report [facility] [place] [address] OFFICE VISIT Date of Service: 12/06/24 MR#: [id number] Acct: [id number] Name: FINESSE PRATHER Rep #: [id number] : 1935 Provider: ERASMO Negrete Age/Sex: 89/F [place] [facility] Status: Signed HPI HPI History of Present Illness Details: Finesse Prather is an 89 year-old white female with a history of CAD status post RCA PTCA/stent (2016), hyperlipidemia, hypertension, moderate to severe aortic valve stenosis, with a history of bilateral carotid artery endarterectomy-remote. She had a TIA in 11/2020. She was evaluated [facility] in February 2022 for shortness of [...] cuff Intake Visit Reasons: 2 M FU Manager Shift Required: No Accompanied by: Daughter Is patient [...] blood sugar 01/28/21 12/06/24 History omega-3 250 ht-adh-lwx-lutein 2.5 1 cap PO BID EYE HEALTH [...] Aortic valve disorders Atherosclerotic heart disease of [place] coronary artery without angina pectoris HLD (hyperlipidemia) Occlusion and stenosis of right carotid artery PAD (peripheral artery disease) Surgical History History of transc (more content not included)... Normal [facility] Cardiology Visit Reporton Cardiology Visit Report [facility] [address] [place] [address] OFFICE VISIT Date of Service: 10/04/24 MR#: [id number] Acct: [id number] Name: FINESSE PRATHER Rep #: [id number] : 1935 Provider: ERASMO Negrete Age/Sex: 89/F [place] [facility] Status: Signed HPI HPI History of Present Illness Details: Finesse Prather is an 89 year-old white female with a history of CAD status post RCA PTCA/stent (2016), hyperlipidemia, hypertension, moderate to severe aortic valve stenosis, with a history of bilateral carotid artery endarterectomy-remote. She had a TIA in 11/2020. She was evaluated [facility] in February 2022 for shortness of [...] Monitor Intake Visit Reasons: 3 M FU Manager Shift Required: No Accompanied by: Daughter Allergies rosuvastatin [...] blood sugar 01/28/21 10/04/24 History omega-3 250 xi-vtq-cin-lutein 2.5 1 cap PO BID [facility]YE [facility] 01/28/21 10/04/24 History mg-zeaxanthin 0.5 mg capsule ([facility]) vitamin B complex 1 cap PO [...] Aortic valve disorders Atherosclerotic heart disease of [place] coronary artery without angina pectoris HLD (hyperlipidemia) [...] 66 Diab (more content not included)... Normal [facility] Cardiology Visit Reporton Cardiology Visit Report [facility] [place] [address] OFFICE VISIT Date of Service: 04/22/24 MR#: [id number] Acct: [id number] Name: FINESSE PRATHER Rep #: [id number] : 1935 Provider: ERASMO Negrete Age/Sex: 89/F Location: [facility] Status: Signed HPI HPI History of Present Illness Details: Finesse Prather is an 89 year-old white female with a history of CAD status post RCA PTCA/stent (2016), hyperlipidemia, hypertension, moderate to severe aortic valve stenosis, with a history of bilateral carotid artery endarterectomy-remote. She had a TIA in 11/2020. She was evaluated [facility] in February 2022 for shortness of [...] Source NIBP Intake Visit Reasons: 1 M Manager Shift Required: No Accompanied by: Daughter Is patient [...] blood sugar 01/28/21 04/22/24 History omega-3 250 le-cny-qkl-lutein 2.5 1 cap PO BID EYE [facility] 01/28/21 04/22/24 History mg-zeaxanthin 0.5 mg capsule ([facility]) vitamin B complex 1 cap PO [...] help with symptoms. Needs refill on lasix [facility] Medical History Moderate to severe aortic stenosis Depression Diabetes Osteoporosis Non-smoker Coronary artery disease Hypertension TIA (transient ischemic attack) Nonrheumatic aortic (valve) stenosis Essential hypertension Presence of stent in coronary artery ( 04/04/22) Carotid stenosis, left Occlusion and stenosis of left carotid artery Nonrheumatic mitral (valve) insufficiency Aortic valve disorders Atherosclerotic heart disease of [place] coronary artery without angina pectoris HLD (hyperlipidemia) Occlusion and stenosis of right carotid artery PAD (peripheral artery disease) Surgical History Hist (more content not included)... Normal [facility] Basic Metabolic Profile (BMP )on 03-23-2024 BUN/CRE 26.4 RATIO High 01-16 [facility] Comment on above: Order Comment: 'TROP ' Serial specimen #1, #2 or #3: 1 Performed By: #### L 503.4820, L501.4020, L500.2500, L100.0100 #### [facility] [address] [place], [address] CA,Total 8.8 mg/dL Normal 8.5-10.1 [facility] Comment on above: Order Comment: 'TROP ' Serial specimen #1, #2 or #3: 1 Performed By: #### L 503.6620, L501.4020, L500.2500, L100.0100 #### [facility] [address] [place], [address] Chloride [Moles/Vol] 105 mmol/L Normal 98-107 [facility] Comment on above: Order Comment: 'TROP ' Serial specimen #1, #2 or #3: 1 Performed By: #### L 503.6620, L501.4020, L500.2500, L100.0100 #### [facility] [address] [place], [address] CO2 [Moles/Vol] 29.0 mmol/L Normal 21.0-32.0 [facility] Comment on above: Order Comment: 'TROP ' Serial specimen #1, #2 or #3: 1 Performed By: #### L 503.6620, L501.4020, L500.2500, L100.0100 #### [facility] [address] [place], [address] Creatinine [Mass/Vol] 0.68 mg/dL Normal 0.55-1.02 [facility] Comment on above: Order Comment: 'TROP ' Serial specimen #1, #2 or #3: 1 Result Comment: The validity of the calculated GFR GFRAA in patients over 70 years has not been determined. Clinical correlation is essential. Performed By: #### L 503.6620, L501.4020, L500.2500, L100.0100 #### [facility] [address] [place], [address] ECRCL 39.87 ml/min Normal [facility] Comment on above: Order Comment: 'TROP ' Serial specimen #1, #2 or #3: 1 Performed By: #### L 503.6620, L501.4020, L500.2500, L100.0100 #### [facility] [address] [place], [address] EST GFR - AA 105 mL/min Normal >60 [facility] Comment on above: Order Comment: 'TROP ' Serial specimen #1, #2 or #3: 1 Result Comment: Afri can Singaporean GFR Calc Performed By: #### L 503.6620, L501.4020, L500.2500, L100.0100 #### [facility] [address] [place], [address] GAP 5 Normal 5-15 [facility] Comment on above: Order Comment: 'TROP ' Serial specimen #1, #2 or #3: 1 Performed By: #### L 503.6620, L501.4020, L500.2500, L100.0100 #### [facility] [address] [place], [address] GFR/1.73 sq M.predicted among non-blacks MDRD (S/P/Bld) [Vol rate/Area] 86 mL/min/{1.73_m2} Normal >60 [facility] Comment on above: Order Comment: 'TROP ' Serial specimen #1, #2 or #3: 1 Result Comment: Non- GFR Calc Performed By: #### L 503.6620, L501.4020, L500.2500, L100.0100 #### [facility] [address] [place], [address] Glucose [Mass/Vol] 150 mg/dL High 74-106 [facility] Comment on above: Order Comment: 'TROP ' Serial specimen #1, #2 or #3: 1 Result Comment: Fast ing Glucose result greater than or equal to 126 mg/dL suggests DIABETES MELLITUS per A.D.A. criteria. Performed By: #### L 503.6620, L501.4020, L500.2500, L100.0100 #### [facility] [address] [place], [address] Potassium [Moles/Vol] 3.8 mmol/L Normal 3.5-5.1 [facility] Comment on above: Order Comment: 'TROP ' Serial specimen #1, #2 or #3: 1 Performed By: #### L 503.6620, L501.4020, L500.2500, L100.0100 #### [facility] [address] [place], [address] Sodium [Moles/Vol] 139 mmol/L Normal 136-145 [facility] Comment on above: Order Comment: 'TROP ' Serial specimen #1, #2 or #3: 1 Performed By: #### L 503.6620, L501.4020, L500.2500, L100.0100 #### [facility] [address] [place], [address] Urea nitrogen [Mass/Vol] 18 mg/dL Normal 7-18 [facility] Comment on above: Order Comment: 'TROP ' Serial specimen #1, #2 or #3: 1 Performed By: #### L 503.6620, L501.4020, L500.2500, L100.0100 #### [facility] [address] [place], [address] Bedside Glucoseon 03-23-2024 FINGERSTICK GLU 170 mg/dL High 74-106 [facility] Comment on above: Result Comment: NANNETTE GEMENT OF PATIENT CARE PER NURSING PROTOCOL Performed By: #### L 503.6620, L501.4020, L500.2500, L100.0100 #### [facility] [address] [place], [address] FINGERSTICK GLU 140 mg/dL High 74-106 [facility] Comment on above: Result Comment: NANNETTE GEMENT OF PATIENT CARE PER NURSING PROTOCOL Performed By: #### L 501.080 #### [facility] [address] [place], [address] FINGERSTICK GLU 192 mg/dL High 74-106 [facility] Comment on above: Result Comment: NANNETTE ARAGON OF PATIENT CARE PER NURSING PROTOCOL Performed By: #### L 501.080 #### [facility] [address] [place], [address] Discharge Instructionon 02-28 Discharge Instruction [facility] Medical Records Department [address] [place] [address] Instructions for Home/Discharge Instructions 03/23/24 1028 MR#: [id number] Acct: [id number] Name: FINESSE PRATHER Rep #: [id number] : 1935 89 From: Papi Ruiz MD [...] MD; Dr. Antwon Vidal DO Signed Normal [facility] Magnesiumon 03-23-2024 Magnesium [Mass/Vol] 2.1 mg/dL Normal 1.6-2.6 [facility] Comment on above: Performed By: #### L 503.6620, L501.4020, L500.2500, L100.0100 #### [facility] [address] [place], [address] Phosphoruson 03-23-2024 Phosphate [Mass/Vol] 3.6 mg/dL Normal 2.5-4.9 [facility] Comment on above: Performed By: #### L 503.6620, L501.4020, L500.2500, L100.0100 #### [facility] [address] [place], [address] BNP,B-Type NATRIURETIC PEPTI Svetlana 03-22-2024 Natriuretic peptide B (Bld) [Mass/Vol] 638.5 pg/mL High 0-100 [facility] Comment on above: Performed By: #### L 503.6620, L501.4020, L500.2500, L100.0100 #### [facility] [address] [place], [address] Bedside Glucoseon 03-22-2024 FINGERSTICK GLU 178 mg/dL High 74-106 [facility] Comment on above: Result Comment: NANNETTE GEMENT OF PATIENT CARE PER NURSING PROTOCOL Performed By: #### L 501.080 #### [facility] [address] [place], [address] FINGERSTICK GLU 269 mg/dL High -106 [facility] Comment on above: Result Comment: NANNETTE GEMENT OF PATIENT CARE PER NURSING PROTOCOL Performed By: #### L 501.080 #### [facility] [address] [place], [address] FINGERSTICK GLU 145 mg/dL High -106 [facility] Comment on above: Result Comment: NANNETTE GEMENT OF PATIENT CARE PER NURSING PROTOCOL Performed By: #### L 501.080 #### [facility] [address] [place], [address] CBC W/Diff, Automatedon 12- Absolute Lymph 2.19 X10 3/uL Normal 0.83-4.51 [facility] Comment on above: Performed By: #### L 501.5200, L100.0100, L500.4050, L501.2300 #### [facility] [address] [place], [address] Absolute Neut 7.6 X10 3/uL Normal 2.0-7.7 [facility] Comment on above: Performed By: #### L 501.5200, L100.0100, L500.4050, L501.2300 #### [facility] [address] [place], [address] Basophils/100 WBC (Bld) 0.4 % Normal 0-1 [facility] Comment on above: Performed By: #### L 501.5200, L100.0100, L500.4050, L501.2300 #### [facility] [address] [place], [address] Eosinophils/100 WBC (Bld) 1.9 % Normal 0-5 [facility] Comment on above: Performed By: #### L 501.5200, L100.0100, L500.4050, L501.2300 #### [facility] [address] [place], [address] Erythrocyte distribution width (RBC) [Ratio] 12.6 % Normal 11.6-14.6 [facility] Comment on above: Performed By: #### L 501.5200, L100.0100, L500.4050, L501.2300 #### [facility] [address] [place], [address] Hematocrit (Bld) [Volume fraction] 41.0 % Normal 37-47 [facility] Comment on above: Performed By: #### L 501.5200, L100.0100, L500.4050, L501.2300 #### [facility] [address] [place], [address] Hemoglobin (Bld) [Mass/Vol] 13.9 g/dL Normal 12.0-15.0 [facility] Comment on above: Performed By: #### L 501.5200, L100.0100, L500.4050, L501.2300 #### [facility] [address] [place], [address] IG% 0.400 Normal 0.0-0.9 [facility] Comment on above: Result Comment: IG% - Immature Granulocytes (promyelocytes, myelocytes and metamyelocytes) > 1% indicates that a LEFT SHIFT is Present. Performed By: #### L 501.5200, L100.0100, L500.4050, L501.2300 #### [facility] [address] [place], [address] Lymphocytes/100 WBC (Bld) 19.2 % Normal 19-41 [facility] Comment on above: Performed By: #### L 501.5200, L100.0100, L500.4050, L501.2300 #### [facility] [address] [place], [address] MCH (RBC) [Entitic mass] 29.0 pg Normal 27.0-32.0 [facility] Comment on above: Performed By: #### L 501.5200, L100.0100, L500.4050, L501.2300 #### [facility] [address] [place], [address] MCHC (RBC) [Mass/Vol] 33.9 g/dL Normal 32-36 [facility] Comment on above: Performed By: #### L 501.5200, L100.0100, L500.4050, L501.2300 #### [facility] [address] [place], [address] MCV (RBC) [Entitic vol] 85.4 fL Normal 81-99 [facility] Comment on above: Performed By: #### L 501.5200, L100.0100, L500.4050, L501.2300 #### [facility] [address] [place], [address] Monocytes/100 WBC (Bld) 11.2 % High 0-10 [facility] Comment on above: Performed By: #### L 501.5200, L100.0100, L500.4050, L501.2300 #### [facility] [address] [place], [address] Neutrophils/100 WBC (Bld) 66.9 % Normal 47-70 [facility] Comment on above: Performed By: #### L 501.5200, L100.0100, L500.4050, L501.2300 #### [facility] [address] [place], [address] Nucleated RBC (Bld) [#/Vol] 0 10*3/uL Normal 0-5 [facility] Comment on above: Performed By: #### L 501.5200, L100.0100, L500.4050, L501.2300 #### [facility] [address] [place], [address] Platelet mean volume (Bld) [Entitic vol] 9.7 fL Normal 6.2-12.0 [facility] Comment on above: Performed By: #### L 501.5200, L100.0100, L500.4050, L501.2300 #### [facility] [address] [place], [address] Platelets (Bld) [#/Vol] 216 10*3/uL Normal 150-450 [facility] Comment on above: Performed By: #### L 501.5200, L100.0100, L500.4050, L501.2300 #### [facility] [address] [place], [address] RBC (Bld) [#/Vol] 4.80 10*6/uL Normal 4.2-5.4 [facility] Comment on above: Performed By: #### L 501.5200, L100.0100, L500.4050, L501.2300 #### [facility] [address] [place], [address] RDW SD 38.7 fl Normal 35.1-43.9 [facility] Comment on above: Performed By: #### L 501.5200, L100.0100, L500.4050, L501.2300 #### [facility] [address] [place], [address] WBC (Bld) [#/Vol] 11.4 10*3/uL High 4.4-11.0 [facility] Comment on above: Performed By: #### L 501.5200, L100.0100, L500.4050, L501.2300 #### [facility] [address] [place], [address] Chest 1 View (Portable)on Chest 1 View (Portable) [facility] Imaging Services [address] [place] [address] Chest 1 View (Portable) MR#: [id number] Acct: [id number] Name: FINESSE PRATHER Rep #: [id number] : 1935 F 89 From: Lb Jacobsen MD PCP: Dr. Murphy Burton MD Status: ADM IN Study: Chest 1 View (Portable) Date of Exam: 03/22/24 Exam# [id number] Ordering Dr: Antwon Vidal DO [id number] EXAM: XR CHEST, 1 VIEW CLINICAL INDICATION: [...] Burton MD; Dr. Antwon de Anmol, DO [employer]: Signed Normal [facility] Comprehensive Metabolic Prof chuy 03-22-2024 Albumin [Mass/Vol] 3.3 g/dL Normal 3.2-5.0 [facility] Comment on above: Performed By: #### L 503.6620, L501.4020, L500.2500, L100.0100 #### [facility] [address] [place], [address] Albumin/Globulin [Mass ratio] 1.0 {ratio} Normal 0.9-2.4 [facility] Comment on above: Performed By: #### L 503.6620, L501.4020, L500.2500, L100.0100 #### [facility] [address] [place], [address] ALK P 79 U/L Normal 45-117 [facility] Comment on above: Performed By: #### L 503.6620, L501.4020, L500.2500, L100.0100 #### [facility] [address] [place], [address] ALT [Catalytic activity/Vol] 44 U/L Normal 13-56 [facility] Comment on above: Performed By: #### L 503.6620, L501.4020, L500.2500, L100.0100 #### [facility] [address] [place], [address] AST [Catalytic activity/Vol] 48 U/L High 15-37 [facility] Comment on above: Performed By: #### L 503.6620, L501.4020, L500.2500, L100.0100 #### [facility] [address] [place], [address] Bilirubin [Mass/Vol] 0.50 mg/dL Normal 0.20-1.00 [facility] Comment on above: Result Comment: For patients on eltrombopag therapy, use of Dimension [place] TBIL is not recommended. Performed By: #### L 503.6620, L501.4020, L500.2500, L100.0100 #### [facility] [address] [place], [address] BUN/CRE 20.8 RATIO High 10-20 [facility] Comment on above: Performed By: #### L 503.6620, L501.4020, L500.2500, L100.0100 #### [facility] [address] [place], [address] CA,Total 8.7 mg/dL Normal 8.5-10.1 [facility] Comment on above: Performed By: #### L 503.6620, L501.4020, L500.2500, L100.0100 #### [facility] [address] [place], [address] Chloride [Moles/Vol] 104 mmol/L Normal 98-107 [facility] Comment on above: Performed By: #### L 503.6620, L501.4020, L500.2500, L100.0100 #### [facility] [address] [place], [address] CO2 [Moles/Vol] 31.0 mmol/L Normal 21.0-32.0 [facility] Comment on above: Performed By: #### L 503.6620, L501.4020, L500.2500, L100.0100 #### [facility] [address] [place], [address] Creatinine [Mass/Vol] 0.58 mg/dL Normal 0.55-1.02 [facility] Comment on above: Result Comment: The validity of the calculated GFR GFRAA in patients over 70 years has not been determined. Clinical correlation is essential. Performed By: #### L 503.6620, L501.4020, L500.2500, L100.0100 #### [facility] [address] [place], [address] ECRCL 39.81 ml/min Normal [facility] Comment on above: Performed By: #### L 503.6620, L501.4020, L500.2500, L100.0100 #### [facility] [address] [place], [address] EST GFR - AA 127 mL/min Normal >60 [facility] Comment on above: Result Comment: Afri can Singaporean GFR Calc Performed By: #### L 503.6620, L501.4020, L500.2500, L100.0100 #### [facility] [address] [place], [address] GAP 4 Low 5-15 [facility] Comment on above: Performed By: #### L 503.6620, L501.4020, L500.2500, L100.0100 #### [facility] [address] [place], [address] GFR/1.73 sq M.predicted among non-blacks MDRD (S/P/Bld) [Vol rate/Area] 105 mL/min/{1.73_m2} Normal >60 [facility] Comment on above: Result Comment: Non- GFR Calc Performed By: #### L 503.6620, L501.4020, L500.2500, L100.0100 #### [facility] [address] [place], [address] Globulin (S) [Mass/Vol] 3.4 g/dL Normal 2.2-4.2 [facility] Comment on above: Performed By: #### L 503.6620, L501.4020, L500.2500, L100.0100 #### [facility] [address] [place], [address] Glucose [Mass/Vol] 151 mg/dL High 74-106 [facility] Comment on above: Result Comment: Fast ing Glucose result greater than or equal to 126 mg/dL suggests DIABETES MELLITUS per A.D.A. criteria. Performed By: #### L 503.6620, L501.4020, L500.2500, L100.0100 #### [facility] [address] [place], [address] Potassium [Moles/Vol] 3.2 mmol/L Low 3.5-5.1 [facility] Comment on above: Performed By: #### L 503.6620, L501.4020, L500.2500, L100.0100 #### [facility] [address] [place], [address] Sodium [Moles/Vol] 139 mmol/L Normal 136-145 [facility] Comment on above: Performed By: #### L 503.6620, L501.4020, L500.2500, L100.0100 #### [facility] [address] [place], [address] T PROT 6.7 g/dL Normal 6.4-8.2 [facility] Comment on above: Performed By: #### L 503.6620, L501.4020, L500.2500, L100.0100 #### [facility] [address] [place], [address] Urea nitrogen [Mass/Vol] 12 mg/dL Normal 7-18 [facility] Comment on above: Performed By: #### L 503.6620, L501.4020, L500.2500, L100.0100 #### [facility] [address] [place], [address] Consultation - Cardiologyon 03-22-2024 Consultation - Cardiology [facility] Medical Records Department [address] [place] [address] Consultation - Cardiology 03/22/24 0900 MR#: [id number] Acct: [id number] Name: FINESSE PRATHER Rep #: [id number] : 1935 89 From: Pillo Cordero MD PCP: Dr. Murphy Burton MD Status:ADM IN Location: [address] Assessment Plan Assessment/Plan (1) CHF exacerbation: [...] a TIA in 11/2020. She was evaluated [facility] in February 2022 for shortness of [...] demonstrated sinus rhythm with lateral ST depression. [facility] Medical History Moderate to severe aortic stenosis Depression Diabetes Osteoporosis Non-smoker Coronary artery disease Hypertension TIA (transient ischemic attack) Nonrheumatic aortic (valve) stenosis Essential hypertension Presence of stent in coronary artery ( 04/04/22) Carotid stenosis, left Occlusion and stenosis of left carotid artery Nonrheumatic mitral (valve) insufficiency Aortic valve disorders Atherosclerotic heart disease of [place] coronary artery without angina pectoris HLD (hyperlipidemia) [...] blood sugar 01/28/21 03/20/22 History omega-3 250 jk-zsw-tmw-lutein 2.5 1 cap PO BID EYE HEALTH 01/28/21 03/20/22 History mg-zeaxanthin 0.5 mg capsule ([facility]) vitamin B complex 1 cap PO [...] 10 mg (more content not included)... Normal [facility] Hemoglobin A1con 03-22-2024 HbA1c (Bld) [Mass fraction] 6.6 % High 3.8-5.6 [facility] Comment on above: Result Comment: Norm al < 5.7 % Prediabetic 5.7 - 6.4 % Diabetic >or= 6.5 % Please note range changes. Performed By: #### L 503.6620, L501.4020, L500.2500, L100.0100 #### [facility] [address] [place], [address] Legionella Antigen Urineon 1 05-23-2023 LEGU URINE, CLEAN CATCH Legionella Antigen result interpretation: L pneumo Ag Ur Ql Negative Presumptive negative for Legionella pneumophila serogroup 1 antigen in urine, suggesting no recent or current infection. Legionella Ag, Urine Negative (See interpretation below) Normal [facility] Comment on above: Performed By: #### L 503.6620, L501.4020, L500.2500, L100.0100 #### [facility] [address] [place], [address] Lipid Profileon 03-22-2024 Cholesterol [Mass/Vol] 270 mg/dL High 200 [facility] Comment on above: Result Comment: <200 mg/dL Desirable 200-240 mg/dL Borderline >240 mg/dL High Risk Performed By: #### L 503.6620, L501.4020, L500.2500, L100.0100 #### [facility] [address] [place], [address] Cholesterol in HDL [Mass/Vol] 55 mg/dL Normal [facility] Comment on above: Result Comment: The drugs N-Acetylcysteine and Metamizole may falsely depress this assay. Reference Range HDL <40 mg/dL Low HDL Cholesterol HDL >or= 60 mg/dL High HDL Cholesterol Performed By: #### L 503.6620, L501.4020, L500.2500, L100.0100 #### [facility] [address] [place], [address] Cholesterol in LDL [Mass/Vol] 189 mg/dL High 0-130 [facility] Comment on above: Performed By: #### L 503.6620, L501.4020, L500.2500, L100.0100 #### [facility] [address] [place], [address] Cholesterol in VLDL [Mass/Vol] 26 mg/dL Normal 5-40 [facility] Comment on above: Performed By: #### L 503.6620, L501.4020, L500.2500, L100.0100 #### [facility] [address] [place], [address] Triglyceride [Mass/Vol] 129 mg/dL Normal [facility] Comment on above: Result Comment: The drugs N-Acetylcysteine and Metamizole may falsely depress this assay. Serum Triglycerides Reference Interval Normal <150 mg/dL Borderline high 150 - 199 mg/dL High 200 - 499 mg/dL Very High > or = 500 mg/dL Performed By: #### L 503.6620, L501.4020, L500.2500, L100.0100 #### [facility] [address] [place], [address] Magnesiumon 03-22-2024 Magnesium [Mass/Vol] 1.7 mg/dL Normal 1.6-2.6 [facility] Comment on above: Performed By: #### L 503.6620, L501.4020, L500.2500, L100.0100 #### [facility] [address] [place], [address] Phosphoruson 4 Phosphate [Mass/Vol] 3.2 mg/dL Normal 2.5-4.9 [facility] Comment on above: Performed By: #### L 503.6620, L501.4020, L500.2500, L100.0100 #### [facility] [address] [place], [address] Strep pneumoniae Antig(UR,CS F)on 03-22-2024 STPAG URINE INTERPRETATION Strep pneumoniae Antig(UR,CSF) Strep pneumoniae Antig(UR,CSF) Negative Urine Presumptive negative for pneumococcal pneumonia, suggesting no current or recent pneumococcal infection. Infection due to S pneumoniae cannot be ruled out since the antigen present in the sample may be below the detection limit of the test. Strep pneumo Test Negative URINE (See interpretation below) Normal [facility] Comment on above: Performed By: #### L 503.6620, L501.4020, L500.2500, L100.0100 #### [facility] [address] [facility] [place], [address] 12 Lead EKGon 03-21-2024 12 Lead EKG [facility] Cardiovascular Services [address] [place] [address] 12 Lead EKG 03/21/24 2151 MR#: [id number] Acct: [id number] Name: FINESSE PRATHER Rep #: [id number] : 1935 89 From: Pillo Cordero MD Attending Dr: Dr. Papi Ruiz MD Status: DIS IN Ordering Dr: Matthew Enrique DO Date: 4 Location: [facility] Sex: F C Admitted: [...] ECG Confirmed by PILLO CORDERO MD ([id number]), movie editor ERNESTINA GARCIA ([id number]) on 03/24/2024 2:24:01 PM Referred By: Confirmed By: PILLO CORDERO MD 03/24/24 1424 Date Pillo Cordero MD CC: Dr. Matthew Enrique DO; Dr. Murphy Burton MD; Dr. Papi Ruiz MD Signed Normal [facility] 12 Lead EKG [facility] Cardiovascular Services [address] [place] [address] 12 Lead EKG 03/21/242058 MR#: [id number] Acct: [id number] Name: FINESSE PRATHER Rep #: [id number] : 1935 89 From: Pillo Cordero MD Attending Dr: Dr. Papi Ruiz MD Status: DIS IN Ordering Dr: Matthew Enrique DO Date: 4 Location: [facility] Sex: F C Admitted: [...] ECG Confirmed by ABIMAEL MELENDEZ, PILLO ([id number]), movie editor ERNESTINA GARCIA ([id number]) on 03/24/2024 2:23:51 PM Referred By: Confirmed By: PILLO CORDERO MD 03/24/24 1423 Date Pillo Cordero MD CC: Dr. Matthew Enrique DO; Dr. Murphy Burton MD; Dr. Papi Ruiz MD Signed [facility] BNP,B-Type NATRIURETIC PEPTI Svetlana 03-21-2024 Natriuretic peptide B (Bld) [Mass/Vol] 253.0 pg/mL High 0-100 [facility] Comment on above: Performed By: #### L 503.6620, L501.4020, L500.2500, L100.0100 #### [facility] [address] [facility] [place], [address] Basic Metabolic Profile (BMP )on 03-21-2024 BUN/CRE 22.7 RATIO High 10-20 [facility] Comment on above: Order Comment: 'TROP ' Serial specimen #1, #2 or #3: 1 Performed By: #### L 503.6620, L501.4020, L500.2500, L100.0100 #### [facility] [address] [place], [address] CA,Total 9.4 mg/dL Normal 8.5-10.1 [facility] Comment on above: Order Comment: 'TROP ' Serial specimen #1, #2 or #3: 1 Performed By: #### L 503.6620, L501.4020, L500.2500, L100.0100 #### [facility] [address] [place], [address] Chloride [Moles/Vol] 103 mmol/L Normal 98-107 [facility] Comment on above: Order Comment: 'TROP ' Serial specimen #1, #2 or #3: 1 Performed By: #### L 503.6620, L501.4020, L500.2500, L100.0100 #### [facility] [address] [place], [address] CO2 [Moles/Vol] 28.0 mmol/L Normal 21.0-32.0 [facility] Comment on above: Order Comment: 'TROP ' Serial specimen #1, #2 or #3: 1 Performed By: #### L 503.6620, L501.4020, L500.2500, L100.0100 #### [facility] [address] [place], [address] Creatinine [Mass/Vol] 0.79 mg/dL Normal 0.55-1.02 [facility] Comment on above: Order Comment: 'TROP ' Serial specimen #1, #2 or #3: 1 Result Comment: The validity of the calculated GFR GFRAA in patients over 70 years has not been determined. Clinical correlation is essential. Performed By: #### L 503.6620, L501.4020, L500.2500, L100.0100 #### [facility] [address] [place], [address] ECRCL 40.89 ml/min Normal [facility] Comment on above: Order Comment: 'TROP ' Serial specimen #1, #2 or #3: 1 Performed By: #### L 503.6620, L501.4020, L500.2500, L100.0100 #### [facility] [address] [place], [address] EST GFR - AA 88 mL/min Normal >60 [facility] Comment on above: Order Comment: 'TROP ' Serial specimen #1, #2 or #3: 1 Result Comment: Afri can Singaporean GFR Calc Performed By: #### L 503.6620, L501.4020, L500.2500, L100.0100 #### [facility] [address] [place], [address] GAP 6 Normal 5-15 [facility] Comment on above: Order Comment: 'TROP ' Serial specimen #1, #2 or #3: 1 Performed By: #### L 503.6620, L501.4020, L500.2500, L100.0100 #### [facility] [address] [place], [address] GFR/1.73 sq M.predicted among non-blacks MDRD (S/P/Bld) [Vol rate/Area] 73 mL/min/{1.73_m2} Normal >60 [facility] Comment on above: Order Comment: 'TROP ' Serial specimen #1, #2 or #3: 1 Result Comment: Non- GFR Calc Performed By: #### L 503.6620, L501.4020, L500.2500, L100.0100 #### [facility] [address] [place], [address] Glucose [Mass/Vol] 302 mg/dL High 74-106 [facility] Comment on above: Order Comment: 'TROP ' Serial specimen #1, #2 or #3: 1 Result Comment: Gluc ose result greater than or equal to 200 mg/dL suggests DIABETES MELLITUS per A.D.A. criteria. Performed By: #### L 503.6620, L501.4020, L500.2500, L100.0100 #### [facility] [address] [place], [address] Potassium [Moles/Vol] 3.7 mmol/L Normal 3.5-5.1 [facility] Comment on above: Order Comment: 'TROP ' Serial specimen #1, #2 or #3: 1 Performed By: #### L 503.6620, L501.4020, L500.2500, L100.0100 #### [facility] [address] [place], [address] Sodium [Moles/Vol] 137 mmol/L Normal 136-145 [facility] Comment on above: Order Comment: 'TROP ' Serial specimen #1, #2 or #3: 1 Performed By: #### L 503.6620, L501.4020, L500.2500, L100.0100 #### [facility] [address] [place], [address] Urea nitrogen [Mass/Vol] 18 mg/dL Normal 7-18 [facility] Comment on above: Order Comment: 'TROP ' Serial specimen #1, #2 or #3: 1 Performed By: #### L 503.6620, L501.4020, L500.2500, L100.0100 #### [facility] [address] [place], [address] CBC W/Diff, Automatedon 12-2 Absolute Lymph 1.91 X10 3/uL Normal 0.83-4.51 [facility] Comment on above: Performed By: #### L 503.6620, L501.4020, L500.2500, L100.0100 #### [facility] [address] [place], [address] Absolute Neut 5.9 X10 3/uL Normal 2.0-7.7 [facility] Comment on above: Performed By: #### L 503.6620, L501.4020, L500.2500, L100.0100 #### [facility] [address] [place], [address] Basophils/100 WBC (Bld) 1.0 % Normal 0-1 [facility] Comment on above: Performed By: #### L 503.6620, L501.4020, L500.2500, L100.0100 #### [facility] [address] [place], [address] Eosinophils/100 WBC (Bld) 6.1 % High 0-5 [facility] Comment on above: Performed By: #### L 503.6620, L501.4020, L500.2500, L100.0100 #### [facility] [address] [place], [address] Erythrocyte distribution width (RBC) [Ratio] 12.6 % Normal 11.6-14.6 [facility] Comment on above: Performed By: #### L 503.6620, L501.4020, L500.2500, L100.0100 #### [facility] [address] [place], [address] Hematocrit (Bld) [Volume fraction] 42.1 % Normal 37-47 [facility] Comment on above: Performed By: #### L 503.6620, L501.4020, L500.2500, L100.0100 #### [facility] [address] [place], [address] Hemoglobin (Bld) [Mass/Vol] 13.9 g/dL Normal 12.0-15.0 [facility] Comment on above: Performed By: #### L 503.6620, L501.4020, L500.2500, L100.0100 #### [facility] [address] [place], [address] IG% 0.400 Normal 0.0-0.9 [facility] Comment on above: Result Comment: IG% - Immature Granulocytes (promyelocytes, myelocytes and metamyelocytes) > 1% indicates that a LEFT SHIFT is Present. Performed By: #### L 503.6620, L501.4020, L500.2500, L100.0100 #### [facility] [address] [place], [address] Lymphocytes/100 WBC (Bld) 20.4 % Normal 19-41 [facility] Comment on above: Performed By: #### L 503.6620, L501.4020, L500.2500, L100.0100 #### [facility] [address] [place], [address] MCH (RBC) [Entitic mass] 28.7 pg Normal 27.0-32.0 [facility] Comment on above: Performed By: #### L 503.6620, L501.4020, L500.2500, L100.0100 #### [facility] [address] [place], [address] MCHC (RBC) [Mass/Vol] 33.0 g/dL Normal 32-36 [facility] Comment on above: Performed By: #### L 503.6620, L501.4020, L500.2500, L100.0100 #### [facility] [address] [place], [address] MCV (RBC) [Entitic vol] 86.8 fL Normal 81-99 [facility] Comment on above: Performed By: #### L 503.6620, L501.4020, L500.2500, L100.0100 #### [facility] [address] [place], [address] Monocytes/100 WBC (Bld) 9.2 % Normal 0-10 [facility] Comment on above: Performed By: #### L 503.6620, L501.4020, L500.2500, L100.0100 #### [facility] [address] [place], [address] Neutrophils/100 WBC (Bld) 62.9 % Normal 47-70 [facility] Comment on above: Performed By: #### L 503.6620, L501.4020, L500.2500, L100.0100 #### [facility] [address] [place], [address] Nucleated RBC (Bld) [#/Vol] 0 10*3/uL Normal 0-5 [facility] Comment on above: Performed By: #### L 503.6620, L501.4020, L500.2500, L100.0100 #### [facility] [address] [place], [address] Platelet mean volume (Bld) [Entitic vol] 10.4 fL Normal 6.2-12.0 [facility] Comment on above: Performed By: #### L 503.6620, L501.4020, L500.2500, L100.0100 #### [facility] [address] [place], [address] Platelets (Bld) [#/Vol] 232 10*3/uL Normal 150-450 [facility] Comment on above: Performed By: #### L 503.6620, L501.4020, L500.2500, L100.0100 #### [facility] [address] [place], [address] RBC (Bld) [#/Vol] 4.85 10*6/uL Normal 4.2-5.4 [facility] Comment on above: Performed By: #### L 503.6620, L501.4020, L500.2500, L100.0100 #### [facility] [address] [place], [address] RDW SD 39.7 fl Normal 35.1-43.9 [facility] Comment on above: Performed By: #### L 503.6620, L501.4020, L500.2500, L100.0100 #### [facility] [address] [place], [address] WBC (Bld) [#/Vol] 9.3 10*3/uL Normal 4.4-11.0 [facility] Comment on above: Performed By: #### L 503.6620, L501.4020, L500.2500, L100.0100 #### [facility] [address] [place], [address] Chest PA and Lateralon 03-21 Chest PA and Lateral [facility] Imaging Services [address] [place] [address] Chest PA and Lateral MR#: [id number] Acct: [id number] Name: FINESSE PRATHER Rep #: [id number] : 1935 F 89 From: Eulogio mary MD PCP: Dr. Murphy Burton MD Status: [facility] ER Study: Chest PA and Lateral Date of Exam: 03/21/24 Exam# [id number] Ordering Dr: Matthew Enrique DO [id number] INDICATION: Shortness of breath EXAMINATION/TECHNIQUE: X-RAY - [...] Matthew Enrique DO; Dr. Murphy Burton MD [employer]: Signed Normal [facility] Echo Completeon 03-21-2024 Echo Complete [facility] Cardiovascular Services [address] [place] [address] Echo Complete 03/22/24 1008 MR#: [id number] Acct: [id number] Name: FINESSE PRATHER Rep #: [id number] : 1935 89 From: Pillo Cordero MD [...] Dictated: 03/22/24 1008 Date Transcribed: 03/22/24 1335 [employer]: Signed Normal [facility] Emergency Department Summary on 03-21-2024 Emergency Department Summary [facility] Medical Records Department [address] [place] [address] Emergency Department Summary 03/21/24 MR#: [id number] Acct: [id number] Name: FINESSE PRATHER Rep #: [id number] : 1935 89 From: Matthew Enrique DO PCP: Dr. Murphy Burton MD Status:ADM IN Location: [place] [address] HPI History of Present Illness Chief Complaint: [...] intact Psych: Cooperative, appropriate mood and affect [facility] Medical History Moderate to severe aortic stenosis Depression Diabetes Osteoporosis Non-smoker Coronary artery disease Hypertension TIA (transient ischemic attack) Nonrheumatic aortic (valve) stenosis Essential hypertension Presence of stent in coronary artery ( 04/04/22) Carotid stenosis, left Occlusion and stenosis of left carotid artery Nonrheumatic mitral (valve) insufficiency Aortic valve disorders Atherosclerotic heart disease of [place] coronary artery without angina pectoris HLD (hyperlipidemia) [...] blood sugar 01/28/21 03/20/22 History omega-3 250 tl-prq-qin-lutein 2.5 1 cap PO BID EYE HEALTH 01/28/21 03/20/22 History mg-zeaxanthin 0.5 mg capsule ([facility]) vitamin B complex 1 cap PO [...] Oral Oral (more content not included)... Normal [facility] H AND P Exam - Hospitaliston 03-21-2024 H&P Exam - Hospitalist [facility] Medical Records Department [address] [place] [address] H P Exam - Hospitalist 03/21/242235 MR#: [id number] Acct: [id number] Name: FINESSE PRATHER Rep #: [id number] : 1935 89 From: Antwon Vidal DO PCP: Dr. Murphy Burton MD Status:ADM IN Location: [place] [id number] HPI - General General Date of Admission: [...] and prn SL NTG, history of nonrheumatic iymvbovw-bn-ukezez stenosis of aortic valve; s/p TAVR (2022), history of bilateral carotid stenosis; s/p Right CEA ( 2010) and Left CEA (2017), history of TIA, history of PAD, history of depression; on sertraline, osteoporosis and OA [facility] [facility] complaining of SOB and cough. [...] was expected to extend beyond 2 midnights. [facility] Medical History Moderate to severe aortic stenosis Depression Diabetes Osteoporosis Non-smoker Coronary artery disease Hypertension TIA (transient ischemic attack) Nonrheumatic aortic (valve) stenosis Essential hypertension Presence of stent in coronary artery ( 04/04/22) Carotid stenosis, left Occlusion and stenosis of left carotid artery Nonrheumatic mitral (valve) insufficiency Aortic valve disorders Atherosclerotic heart disease of [place] coronary artery without angina pectoris HLD (hyperlipidemia) [...] blood sugar 01/28/21 03/20/22 History omega-3 250 wj-dlb-wiy-lutein 2.5 1 cap PO BID [facility]YE [facility] 01/28/21 03/20/22 History mg-zeaxanthin 0.5 mg capsule ([facility]) vitamin B complex 1 cap PO [...] 07/10/16) History (more content not included)... Normal [facility] L501.4020on 03-21-2024 TROPONIN-I HS 50 pg/mL Normal 3.0-54.0 [facility] Comment on above: Order Comment: 'TROP ' Serial specimen #1, #2 or #3: 1 Result Comment: Lexis ponce Note: New Test Units and Gender Specific Reference Ranges. For more information see Policy Stat Procedure [place] High Sensitivity Troponin (TNIH) and attachments. Performed By: #### L 503.6620, L501.4020, L500.2500, L100.0100 #### [facility] [address] [place], [address] Lactic Acidon 03-21-2024 Lactate [Moles/Vol] 1.7 mmol/L Normal 0.4-1.9 [facility] Comment on above: Order Comment: Y Performed By: #### L 501.080 #### [facility] [address], [address] M100.678on 03-21-2024 M100.678 Pending SARS-CoV-2 (COVID 19) Negative INFLUENZA A Negative INFLUENZA B Negative RSV PCR Negative Normal [facility] Comment on above: Performed By: #### L 503.6620, L501.4020, L500.2500, L100.0100 #### [facility] [address] [place], [address] Thyroid Stim Hormone (TSH)on 03-21-2024 TSH 4.100 uIU/mL High 0.358-3.740 [facility] Comment on above: Performed By: #### L 503.6620, L501.4020, L500.2500, L100.0100 #### [facility] [address] [place], [address] Venous Blood Gason 4 Blood Gas Type RUPERT [facility] Comment on above: Performed By: #### L 503.6620, L501.4020, L500.2500, L100.0100 #### [facility] [address] [place], [address] CO2 [Moles/Vol] 28 mmol/L Normal 23-33 [facility] Comment on above: Performed By: #### L 503.6620, L501.4020, L500.2500, L100.0100 #### [facility] [address] [place], [address] FI02 5.0 [facility] Comment on above: Performed By: #### L 503.6620, L501.4020, L500.2500, L100.0100 #### [facility] [address] [place], [address] HCO3 (Bld) [Moles/Vol] 27 mmol/L High 22-26 [facility] Comment on above: Performed By: #### L 503.6620, L501.4020, L500.2500, L100.0100 #### [facility] [address] [place], [address] O2 Delivery Dev Not entered [facility] Comment on above: Performed By: #### L 503.6620, L501.4020, L500.2500, L100.0100 #### [facility] [address] [place], [address] SITE Not entered [facility] Comment on above: Performed By: #### L 503.6620, L501.4020, L500.2500, L100.0100 #### [facility] [address] [place], [address] VBG BE 2 mmol/L Normal -1.0-3.5 [facility] Comment on above: Performed By: #### L 503.6620, L501.4020, L500.2500, L100.0100 #### [facility] [address] [place], [address] VBG pCO2 45.3 mmHg Normal 41-51 [facility] Comment on above: Performed By: #### L 503.6620, L501.4020, L500.2500, L100.0100 #### [facility] [address] [place], [address] VBG pH 7.38 Normal 7.32-7.42 [facility] Comment on above: Performed By: #### L 503.6620, L501.4020, L500.2500, L100.0100 #### [facility] [address] [place], [address] VBG PO2 36 mmHg Normal 25-40 [facility] Comment on above: Performed By: #### L 503.6620, L501.4020, L500.2500, L100.0100 #### [facility] [address] [place], [address] VBG SO2 68 Normal 50-70 [facility] Comment on above: Performed By: #### L 503.6620, L501.4020, L500.2500, L100.0100 #### [facility] [address] [place], [address] Cardiology Visit Reporton Cardiology Visit Report [facility] [place] [facility] [address] [place] [address] OFFICE VISIT Date of Service: 02/16/24 MR#: [id number] Acct: [id number] Name: FINESSE PRATHER Rep #: [id number] : 1935 Provider: Dr. Pillo Cordero MD Age/Sex: 88/F Location: [facility] Status: Signed HPI HPI History of Present Illness Details: Finesse Prather is an 88 year-old white female with a history of CAD status post RCA PTCA/stent (2016), hyperlipidemia, hypertension, moderate to severe aortic valve stenosis, with a history of bilateral carotid artery endarterectomy-remote. She had a TIA in 11/2020. 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 Shift Required: No Is patient in pain?: No [...] blood sugar 01/28/21 02/16/24 History omega-3 250 tg-dhr-lat-lutein 2.5 1 cap PO BID EYE HEALTH 01/28/21 02/16/24 History mg-zeaxanthin 0.5 mg capsule ([facility]) vitamin B complex 1 cap PO [...] you fallen in the past year?: No [facility] Medical History Moderate to severe aortic stenosis Depression Diabetes Osteoporosis Non-smoker Coronary artery disease Hypertension TIA (transient ischemic attack) Nonrheumatic aortic (valve) stenosis Essential hypertension Presence of stent in coronary artery ( 04/04/22) Carotid stenosis, left Occlusion and stenosis of left carotid artery Nonrheumatic mitral (valve) insufficiency Aortic valve disorders Atherosclerotic heart disease of [place] coronary artery without angina pectoris HLD (hyperlipidemia) Occlusion and stenosis of right carotid artery PAD (peripheral artery disease) Surgical History History of transcatheter aortic valve replacement (TAVR) ( 04/25/22) History of right and left heart catheterization (LHC) ( 03/21/22) Presence of coronary angioplasty implant and graft ( 07/10/16) History of left-sided carotid endarterectomy (05/05/17) History of hy (more content not included)... Normal [facility] B-TYPE NATRIURETIC PEPTIDE ( BRAIN)on 05-29-2022 Natriuretic peptide B (Bld) [Mass/Vol] 347 pg/mL High 0-100 [facility] Comment on above: Performed By: #### C HM6 #### [facility] (DEFAULT) [address] [address] CBC,PLATELETSon 05-29-2022 Hematocrit (Bld) [Volume fraction] 37.7 % Normal 34.9-44.3 [facility] Comment on above: Performed By: #### Y METN #### [facility] (DEFAULT) [address] [address] Hemoglobin (Bld) [Mass/Vol] 12.2 g/dL Normal 11.4-15.2 [facility] Comment on above: Performed By: #### Y METN #### [facility] (DEFAULT) [address] [place] [address] MCV (RBC) [Entitic vol] 85.9 fL Normal 79.6-97.7 [facility] Comment on above: Performed By: #### Y METN #### [facility] (DEFAULT) [address] [address] Mean Cell Hgb 27.8 pg Normal 25.9-33.9 [facility] Comment on above: Performed By: #### Y METN #### [facility] (DEFAULT) [address] [address] Mean Cell Hgb Conc 32.4 g/dL Normal 31.4-35.9 [facility] Comment on above: Performed By: #### Y METN #### [facility] (DEFAULT) [address] [address] Platelet mean volume (Bld) [Entitic vol] 10.4 fL Normal 8.5-12.2 [facility] Comment on above: Performed By: #### Y METN #### [facility] (DEFAULT) [address] [address] Platelets (Bld) [#/Vol] 198 10*3/uL Normal 150-393 [facility] Comment on above: Performed By: #### Y METN #### [facility] (DEFAULT) [address] [address] RBC (Bld) [#/Vol] 4.39 10*6/uL Normal 3.91-5.04 [facility] Comment on above: Performed By: #### Y METN #### [facility] (DEFAULT) [address] [address] RBC Distribution 13.0 % Normal 10.8-14.9 [facility] Comment on above: Performed By: #### Y METN #### [facility] (DEFAULT) [address] [address] WBC (Bld) [#/Vol] 7.18 10*3/uL Normal 3.99-11.19 [facility] Comment on above: Performed By: #### Y METN #### [facility] (DEFAULT) [address] [place] [address] CHEM 6 (LYTES, BUN CREA)on 0 05-29-2022 Anion gap [Moles/Vol] 14 mmol/L Normal 7-17 [facility] Comment on above: Performed By: #### C HM6 #### [facility] (DEFAULT) [address] [place] [address] Chloride [Moles/Vol] 101 mmol/L Normal 98-108 [facility] Comment on above: Performed By: #### C HM6 #### [facility] (DEFAULT) [address] [place] [address] CO2 [Moles/Vol] 29 mmol/L Normal 21-31 [facility] Comment on above: Performed By: #### C HM6 #### [facility] (DEFAULT) [address] [place] [address] Creatinine [Mass/Vol] 0.62 mg/dL Normal 0.50-1.20 [facility] Comment on above: Performed By: #### C HM6 #### [facility] (DEFAULT) [address] [place] [address] GFR/1.73 sq M.predicted among non-blacks MDRD (S/P/Bld) [Vol rate/Area] 86 mL/min/{1.73_m2} Normal >=60 [facility] Comment on above: Result Comment: Repo rted eGFR is based on the CKD-EPI 2020 equation using creatinine, age, and sex. Performed By: #### C HM6 #### [facility] (DEFAULT) [address] [place] [address] Potassium [Moles/Vol] 3.7 mmol/L Normal 3.5-5.0 [facility] Comment on above: Performed By: #### C HM6 #### [facility] (DEFAULT) [address] [place] [address] Sodium [Moles/Vol] 140 mmol/L Normal 135-145 [facility] Comment on above: Performed By: #### C HM6 #### [facility] (DEFAULT) [address] [place] [address] Urea nitrogen [Mass/Vol] 21 mg/dL Normal 7-25 [facility] Comment on above: Performed By: #### C HM6 #### [facility] (DEFAULT) [address] [place] [address] Urea nitrogen/Creatinine [Mass ratio] 34 mg/mg Normal [facility] Comment on above: Performed By: #### C HM6 #### [facility] (DEFAULT) [address] [place] [address] Cardiac echo study Procedure Ordered By: Allen Tay on 05-29-2022 Ao peak jay 2.29 m/s [facility] Work Phone: Ao VTI 59.50 cm [facility] Work Phone: Aortic arch 2.66 cm [facility] Work Phone: Ascending aorta 3.40 cm [facility] Work Phone: AV LVOT peak gradient 4 mmHg [facility] Work Phone: AV mean gradient 12 mmHg [facility] Work Phone: AV peak gradient 21 mmHG [facility] Work Phone: AV valve area 0.88 cm2 [facility] Work Phone: AV Velocity Ratio 0.41 [facility] Work Phone: LIDIA (continuity Vmax) 0.93 cm2 [facility] Work Phone: LIDIA (continuity VTI) 0.88 cm2 [facility] Work Phone: LIDIA index (continuity Vmax) 0.59 m/s [facility] Work Phone: LIDIA index (continuity VTI) 0.56 [facility] Work Phone: Avg e' pk jay 0.06 m/s [facility] Work Phone: Avg E/e' ratio 27.22 [facility] Work Phone: Body surface area Derived from formula 1.57 m2 [facility] Work Phone: BP EF 55 % [facility] Work Phone: DI (Vmax) 0.41 [facility] Work Phone: DI (VTI) 0.39 m/2 [facility] Work Phone: E wave decelartion time 339.00 msec [facility] Work Phone: e' lateral pk jay 0.0760 m/s [facility] Work Phone: e' lateral pk jay 0.08 m/s [facility] Work Phone: e' septal pk jay 0.0360 m/s [facility] Work Phone: e' septal pk jay 0.04 m/s [facility] Work Phone: E/A ratio 1.10 [facility] Work Phone: E/e' lateral ratio 17.50 [facility] Work Phone: E/e' septal ratio 36.94 [facility] Work Phone: EF SP 2CH 55 [facility] Work Phone: EF SP 4CH 55 [facility] Work Phone: EST RAP 8.00 mmHg [facility] Work Phone: FS 20 % 28 - 44 % [facility] Work Phone: IVC ostium 1.30 cm [facility] Work Phone: IVS 1.20 cm [facility] Work Phone: LA AREA 2CH 24.40 cm2 [facility] Work Phone: LA area 4CH 21.60 cm2 [facility] Work Phone: LA ESV BP (MOD) 76 [facility] Work [facility]: LA ESV BP (MOD) index 48 mL/m2 [facility] Work Phone: LA ESV SP 2CH (MOD) 78 mL [facility] Work Phone: LA ESV SP 4CH (MOD) 67 mL [facility] Work Phone: LV EDV BP 71 mL [facility] Work Phone: LV EDV SP 2CH 73 mL [facility] Work Phone: LV EDV SP 4CH 69 mL [facility] Work Phone: LV ESV BP 32 mL [facility] Work Phone: LV ESV SP 2CH 33 mL [facility] Work Phone: LV ESV SP 4CH 31 mL [facility] Work Phone: LV mass 165.46 g [facility] Work Phone: LV Mass Index 105.4 g/m2 [facility] Work Phone: LV RWT 0.60 [facility] Work Phone: LV stroke volume BP (ml) 39 mL [facility] Work Phone: LV stroke volume index BP 24.84 mL/m2 [facility] Work Phone: LVIDD 4.00 cm [facility] Work Phone: LVIDS 3.20 cm [facility] Work Phone: LVOT area 2.27 cm2 [facility] Work Phone: LVOT diameter 1.70 cm [facility] Work Phone: LVOT peak jay 0.94 m/s [facility] Work Phone: LVOT peak VTI 23.00 cm [facility] Work Phone: LVOT stroke volume 52 cm3 [facility] Work Phone: LVOT stroke volume index 33.24 ml/m2 [facility] Work Phone: MV mean gradient 4 mmHg [facility] Work Phone: MV peak gradient 9 mmHg [facility] Work Phone: MV pk A jay 1.21 m/s [facility] Work Phone: MV pk E jay 1.33 m/s [facility] Work Phone: MV stenosis pressure 1/2 time 104.00 ms [facility] Work Phone: MV valve area by continuity eq 1.23 cm2 [facility] Work Phone: MV valve area p 1/2 method 2.12 cm2 [facility] Work Phone: MV VTI 42.30 cm [facility] Work Phone: MVA (continuity VTI) 1.23 cm [facility] Work Phone: [facility] AV VTI RATIO PRE STRESS 0.39 [facility] Work Phone: [facility] ECHO LV BIPLANE SYSTOLIC VOLUME INDEX 20.38 mL/m2 [facility] Work Phone: [facility] ECHO LV BP DIASTOLIC VOLUME INDEX 45.22 mL/m2 [facility] Work Phone: [facility] RVOT VTI RATIO 0.48 [facility] Work Phone: PV mean gradient 3 mmHg [facility] Work Phone: PV peak gradient 6 mmHg [facility] Work Phone: PV PK JAY 1.22 m/s [facility] Work Phone: PV VTI 26.10 cm [facility] Work Phone: PW 1.20 cm [facility] Work Phone: RA vol index 4CH (MOD) 29.94 mL/m2 [facility] Work Phone: Right atrium volume 4 chamber method of disks 47 mL [facility] Work Phone: RV Area diastolic 15.50 cm2 [facility] Work Phone: RV Area systolic 8.36 cm2 [facility] Work Phone: RV basal diam 4.00 cm [facility] Work Phone: RV Fractional area change 46.1 % [facility] Work Phone: RV long diam 7.10 cm [facility] Work Phone: RV mid diam 2.90 cm [facility] Work Phone: RV S' 10.70 cm/s [facility] Work Phone: RVOT peak gradient 2 mmHg [facility] Work Phone: RVOT peak jay 0.67 m/s [facility] Work Phone: RVOT peak VTI 12.40 cm [facility] Work Phone: Sinus 3.10 cm [facility] Work Phone: STJ 2.50 cm [facility] Work Phone: Stroke Volume 52 cm/mL [facility] Work Phone: Stroke volume index 33 [facility] Work Phone: TAPSE 2.24 cm [facility] Work Phone: [facility] Work Phone: Cardiac echo study Procedure on [...] include technically difficult study. Imaging system used: [employer] 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 [facility] Radiology Study observation (narrative) [facility] ECHOCARDIOGRAMon 05-29-2022 Echocardiography ? S/p 23 mm [...] the original result were not included. Facility [facility] Patient Information Patient Name Finesse [...] Role Read Date Allen Tay MD Echo [place] 05/29/2022 Left Heart Measurements LV - Systole [...] Stroke vol (more content not included)... Normal [facility] CBC,PLATELETSon 04-27-2022 Hematocrit (Bld) [Volume fraction] 29.1 % Low 34.9-44.3 [facility] Comment on above: Performed By: #### X M #### [facility] (DEFAULT) [address] [address] Hemoglobin (Bld) [Mass/Vol] 9.8 g/dL Low 11.4-15.2 [facility] Comment on above: Performed By: #### X M #### [facility] (DEFAULT) [address] [address] MCV (RBC) [Entitic vol] 86.1 fL Normal 79.6-97.7 [facility] Comment on above: Performed By: #### X M #### [facility] (DEFAULT) [address] [address] Mean Cell Hgb 29.0 pg Normal 25.9-33.9 [facility] Comment on above: Performed By: #### X M #### [facility] [address] [place] [address] Mean Cell Hgb Conc 33.7 g/dL Normal 31.4-35.9 [facility] Comment on above: Performed By: #### X M #### [facility] (DEFAULT) [address] [place] [address] Platelet mean volume (Bld) [Entitic vol] 10.0 fL Normal 8.5-12.2 [facility] Comment on above: Performed By: #### X M #### [facility] (DEFAULT) [address] [place] [address] Platelets (Bld) [#/Vol] 183 10*3/uL Normal 150-393 [facility] Comment on above: Performed By: #### X M #### [facility] (DEFAULT) [address] [place] [address] RBC (Bld) [#/Vol] 3.38 10*6/uL Low 3.91-5.04 [facility] Comment on above: Performed By: #### X M #### [facility] (DEFAULT) [address] [place] [address] RBC Distribution 13.1 % Normal 10.8-14.9 [facility] Comment on above: Performed By: #### X M #### [facility] (DEFAULT) [address] [place] [address] WBC (Bld) [#/Vol] 6.80 10*3/uL Normal 3.99-11.19 [facility] Comment on above: Performed By: #### X M #### [facility] (DEFAULT) [address] [address] Erythrocyte distribution width (RBC) [Ratio] 13.1 % 10.8 - 14.9 % [facility] Hematocrit (Bld) [Volume fraction] 29.1 % Low 34.9 - 44.3 % [facility] Hemoglobin (Bld) [Mass/Vol] 9.8 g/dL Low 11.4 - 15.2 g/dL [facility] Interpretation and review of laboratory results Abnormal [facility] MCH (RBC) [Entitic mass] 29.0 pg 25.9 - 33.9 pg [facility] MCHC (RBC) [Mass/Vol] 33.7 g/dL 31.4 - 35.9 g/dL [facility] MCV (RBC) [Entitic vol] 86.1 fL 79.6 - 97.7 fL [facility] Platelet mean volume (Bld) [Entitic vol] 10.0 fL 8.5 - 12.2 fL [facility] Platelets (Bld) [#/Vol] 183 10*3/uL 150 - 393 K/uL [facility] RBC (Bld) [#/Vol] 3.38 10*6/uL Low [facility] WBC (Bld) [#/Vol] 6.80 10*3/uL 3.99 - 11. 19 K/uL [facility] CHEM 7 (LYTES,BUN,CREA,GLUC) on 04-27-2022 Anion gap [Moles/Vol] 11 mmol/L Normal 7-17 [facility] Comment on above: Performed By: #### C HM6 #### [facility] (DEFAULT) [address] [place] [address] Chloride [Moles/Vol] 104 mmol/L Normal 98-108 [facility] Comment on above: Performed By: #### C HM6 #### [facility] (DEFAULT) [address] [place] [address] CO2 [Moles/Vol] 26 mmol/L Normal 21-31 [facility] Comment on above: Performed By: #### C HM6 #### [facility] (DEFAULT) [address] [place] [address] Creatinine [Mass/Vol] 0.49 mg/dL Low 0.50-1.20 [facility] Comment on above: Performed By: #### C HM6 #### [facility] (DEFAULT) [address] [place] [address] eGFR, CKD-EPI, Female > Normal >=60 [facility] Comment on above: Result Comment: Repo rted eGFR is based on the CKD-EPI 2020 equation using creatinine, age, and sex. Performed By: #### C HM6 #### [facility] (DEFAULT) [address] [place] [address] Glucose [Mass/Vol] 139 mg/dL High 70-99 [facility] Comment on above: Performed By: #### C HM6 #### [facility] (DEFAULT) [address] [place] [address] Osmolality [Osmolality] 290 mosm/kg Normal 278-305 [facility] Comment on above: Performed By: #### C HM6 #### [facility] (DEFAULT) [address] [place] [address] Potassium [Moles/Vol] 3.7 mmol/L Normal 3.5-5.0 [facility] Comment on above: Performed By: #### C HM6 #### [facility] (DEFAULT) [address] [place] [address] Sodium [Moles/Vol] 137 mmol/L Normal 135-145 [facility] Comment on above: Performed By: #### C HM6 #### [facility] [facility] (DEFAULT) [address] [place] [address] Urea nitrogen [Mass/Vol] 15 mg/dL Normal 7-25 [facility] Comment on above: Performed By: #### C HM6 #### [facility] (DEFAULT) [address] [place] [address] Urea nitrogen/Creatinine [Mass ratio] 31 mg/mg Normal [facility] Comment on above: Performed By: #### C HM6 #### [facility] (DEFAULT) [address] [place] [address]842 Anion gap [Moles/Vol] 11 mmol/L 7 - 17 mmol/L [facility] Chloride [Moles/Vol] 104 mmol/L 98 - 10 8 mmol/L [facility] CO2 [Moles/Vol] 26 mmol/L 21 - 31 mmol/L [facility] Creatinine [Mass/Vol] 0.49 mg/dL Low 0.50 - 1.20 mg/dL [facility] GFR/1.73 sq M.predicted CKD-EPI (S/P/Bld) [Vol rate/Area] - PINF [facility] Comment on above: Reported eGFR is bas ed on the CKD-EPI 2020 equation using creatinine, age, and sex. Glucose [Mass/Vol] 139 mg/dL High 70 - 99 mg/dL [facility] Interpretation and review of laboratory results Abnormal [facility] Osmolality Calc [Osmolality] 290 [facility] Potassium [Moles/Vol] 3.7 mmol/L 3.5 - 5.0 mmol/L [facility] Sodium [Moles/Vol] 137 mmol/L 135 - 145 mmol/L [facility] Urea nitrogen [Mass/Vol] 15 mg/dL 7 - 25 mg/dL [facility] Urea nitrogen/Creatinine [Mass ratio] 31 mg/mg [facility] CONTINUOUS CARDIAC MONITORIN G STRIPon 04-27-2022 [facility] GLUCOSE POCon 04-27-2022 Glucose [Mass/Vol] 169 mg/dL High 70 - 99 mg/dL [facility] Interpretation and review of laboratory results Abnormal [facility] POC Sample Type CAPBL [facility] Test performed at address of the patient encounter. [facility] Glucose [Mass/Vol] 140 mg/dL High 70 - 99 mg/dL [facility] Interpretation and review of laboratory results Abnormal [facility] POC Sample Type CAPBL [facility] Test performed at address of the patient encounter. [facility] Glucose [Mass/Vol] 173 mg/dL High 70 - 99 mg/dL [facility] Interpretation and review of laboratory results Abnormal [facility] POC Sample Type CAPBL [facility] Test performed at address of the patient encounter. [facility] CBC,PLATELETSon 04-26-2022 Hematocrit (Bld) [Volume fraction] 32.3 % Low 34.9-44.3 [facility] Comment on above: Performed By: #### L ABHSTI1 #### [facility] (DEFAULT) [address] [address] Hemoglobin (Bld) [Mass/Vol] 11.0 g/dL Low 11.4-15.2 [facility] Comment on above: Performed By: #### L ABHSTI1 #### [facility] (DEFAULT) [address] [address] MCV (RBC) [Entitic vol] 85.0 fL Normal 79.6-97.7 [facility] Comment on above: Performed By: #### L ABHSTI1 #### [facility] (DEFAULT) [address] [address] Mean Cell Hgb 28.9 pg Normal 25.9-33.9 [facility] Comment on above: Performed By: #### L ABHSTI1 #### [facility] (DEFAULT) [address] [place] [address] Mean Cell Hgb Conc 34.1 g/dL Normal 31.4-35.9 [facility] Comment on above: Performed By: #### L ABHSTI1 #### [facility] (DEFAULT) [address] [address] Platelet mean volume (Bld) [Entitic vol] 10.0 fL Normal 8.5-12.2 [facility] Comment on above: Performed By: #### L ABHSTI1 #### [facility] (DEFAULT) [address] [address] Platelets (Bld) [#/Vol] 235 10*3/uL Normal 150-393 [facility] Comment on above: Performed By: #### L ABHSTI1 #### [facility] (DEFAULT) [address] [place] [address] RBC (Bld) [#/Vol] 3.80 10*6/uL Low 3.91-5.04 [facility] Comment on above: Performed By: #### L ABHSTI1 #### [facility] (DEFAULT) [address] [place] [address] RBC Distribution 13.1 % Normal 10.8-14.9 [facility] Comment on above: Performed By: #### L ABHSTI1 #### [facility] (DEFAULT) [address] [place] [address] WBC (Bld) [#/Vol] 9.81 10*3/uL Normal 3.99-11.19 [facility] Comment on above: Performed By: #### L ABHSTI1 #### [facility] (DEFAULT) [address] [place] [address] Erythrocyte distribution width (RBC) [Ratio] 13.1 % 10.8 - 14.9 % [facility] Hematocrit (Bld) [Volume fraction] 32.3 % Low 34.9 - 44.3 % [facility] Hemoglobin (Bld) [Mass/Vol] 11.0 g/dL Low 11.4 - 15.2 g/dL [facility] Interpretation and review of laboratory results Abnormal [facility] MCH (RBC) [Entitic mass] 28.9 pg 25.9 - 33.9 pg [facility] MCHC (RBC) [Mass/Vol] 34.1 g/dL 31.4 - 35.9 g/dL [facility] MCV (RBC) [Entitic vol] 85.0 fL 79.6 - 97.7 fL [facility] Platelet mean volume (Bld) [Entitic vol] 10.0 fL 8.5 - 12.2 fL [facility] Platelets (Bld) [#/Vol] 235 10*3/uL 150 - 393 K/uL [facility] RBC (Bld) [#/Vol] 3.80 10*6/uL Low [facility] WBC (Bld) [#/Vol] 9.81 10*3/uL 3.99 - 11. 19 K/uL [facility] CHEM 7 (LYTES,BUN,CREA,GLUC) on 04-26-2022 Anion gap [Moles/Vol] 14 mmol/L Normal 7-17 [facility] Comment on above: Performed By: #### C HM6 #### [facility] (DEFAULT) [address] [address] Chloride [Moles/Vol] 105 mmol/L Normal 98-108 [facility] Comment on above: Performed By: #### C HM6 #### [facility] (DEFAULT) [address] [address] CO2 [Moles/Vol] 22 mmol/L Normal 21-31 [facility] Comment on above: Performed By: #### C HM6 #### [facility] (DEFAULT) [address] [address] Creatinine [Mass/Vol] 0.63 mg/dL Normal 0.50-1.20 [facility] Comment on above: Performed By: #### C HM6 #### [facility] (DEFAULT) [address] [address] GFR/1.73 sq M.predicted among non-blacks MDRD (S/P/Bld) [Vol rate/Area] 86 mL/min/{1.73_m2} Normal >=60 [facility] Comment on above: Result Comment: Repo rted eGFR is based on the CKD-EPI 2020 equation using creatinine, age, and sex. Performed By: #### C HM6 #### [facility] (DEFAULT) [address] [address] Glucose [Mass/Vol] 126 mg/dL High 70-99 [facility] Comment on above: Performed By: #### C HM6 #### [facility] (DEFAULT) [address] [place] [address] Osmolality [Osmolality] 290 mosm/kg Normal 278-305 [facility] Comment on above: Performed By: #### C HM6 #### [facility] (DEFAULT) [address] [place] [address] Potassium [Moles/Vol] 4.2 mmol/L Normal 3.5-5.0 [facility] Comment on above: Performed By: #### C HM6 #### [facility] (DEFAULT) [address] [place] [address] Sodium [Moles/Vol] 137 mmol/L Normal 135-145 [facility] Comment on above: Performed By: #### C HM6 #### [facility] (DEFAULT) [address] [place] [address] Urea nitrogen [Mass/Vol] 15 mg/dL Normal 7-25 [facility] Comment on above: Performed By: #### C HM6 #### [facility] (DEFAULT) [address] [place] [address] 11345 Urea nitrogen/Creatinine [Mass ratio] 24 mg/mg Normal [facility] Comment on above: Performed By: #### C HM6 #### [facility] (DEFAULT) [address] [place] [address] Anion gap [Moles/Vol] 14 mmol/L 7 - 17 mmol/L [facility] Chloride [Moles/Vol] 105 mmol/L 98 - 10 8 mmol/L [facility] CO2 [Moles/Vol] 22 mmol/L 21 - 31 mmol/L [facility] Creatinine [Mass/Vol] 0.63 mg/dL 0.50 - 1.20 mg/dL [facility] GFR/1.73 sq M.predicted CKD-EPI (S/P/Bld) [Vol rate/Area] 86 - PINF [facility] Comment on above: Reported eGFR is bas ed on the CKD-EPI 2020 equation using creatinine, age, and sex. Glucose [Mass/Vol] 126 mg/dL High 70 - 99 mg/dL [facility] Interpretation and review of laboratory results Abnormal [facility] Osmolality Calc [Osmolality] 290 [facility] Potassium [Moles/Vol] 4.2 mmol/L 3.5 - 5.0 mmol/L [facility] Sodium [Moles/Vol] 137 mmol/L 135 - 145 mmol/L [facility] Urea nitrogen [Mass/Vol] 15 mg/dL 7 - 25 mg/dL [facility] Urea nitrogen/Creatinine [Mass ratio] 24 mg/mg [facility] GLUCOSE POCon 04-26-2022 Glucose [Mass/Vol] 169 mg/dL High 70 - 99 mg/dL [facility] Interpretation and review of laboratory results Abnormal [facility] POC Sample Type CAPBL [facility] Test performed at address of the patient encounter. [facility] Glucose [Mass/Vol] 161 mg/dL High 70 - 99 mg/dL [facility] Interpretation and review of laboratory results Abnormal [facility] POC Sample Type CAPBL [facility] Test performed at address of the patient encounter. [facility] Glucose [Mass/Vol] 248 mg/dL High 70 - 99 mg/dL [facility] Interpretation and review of laboratory results Abnormal [facility] POC Sample Type CAPBL [facility] Test performed at address of the patient encounter. [facility] B-TYPE NATRIURETIC PEPTIDE ( BRAIN)on 04-25-2022 Natriuretic peptide B (Bld) [Mass/Vol] 530 pg/mL High 0-100 [facility] Comment on above: Performed By: #### S CRSB #### [facility] (DEFAULT) [address] [address] Interpretation and review of laboratory results Abnormal [facility] Natriuretic peptide B (Bld) [Mass/Vol] 530 pg/mL High 0 - 100 pg/mL [facility] CBC,PLATELETSon 04-25-2022 Hematocrit (Bld) [Volume fraction] 32.1 % Low 34.9-44.3 [facility] Comment on above: Order Comment: Colle ct [...] by the [facility] at [facility]. It has not been cleared or approved by the FDA.The laboratory is regulated under CLIA as qualified to perform high-complexity testing. This test is used for clinical purposes. It should not be regarded as investigational or for research. Performed By: #### S CRSB #### [facility] (DEFAULT) [address] [address] Hemoglobin (Bld) [Mass/Vol] 10.6 g/dL Low 11.4-15.2 [facility] Comment on above: Order Comment: Colle ct [...] by the [facility] at [facility]. It has not been cleared or approved by the FDA.The laboratory is regulated under CLIA as qualified to perform high-complexity testing. This test is used for clinical purposes. It should not be regarded as investigational or for research. Performed By: #### S CRSB #### [facility] (DEFAULT) [address] [address] MCV (RBC) [Entitic vol] 88.7 fL Normal 79.6-97.7 [facility] Comment on above: Order Comment: Colle ct [...] by the [facility] at [facility]. It has not been cleared or approved by the FDA.The laboratory is regulated under CLIA as qualified to perform high-complexity testing. This test is used for clinical purposes. It should not be regarded as investigational or for research. Performed By: #### S CRSB #### [facility] [address] [place] [address] Mean Cell Hgb 29.3 pg Normal 25.9-33.9 [facility] Comment on above: Order Comment: Colle ct [...] by the [facility] at [facility]. It has not been cleared or approved by the FDA.The laboratory is regulated under CLIA as qualified to perform high-complexity testing. This test is used for clinical purposes. It should not be regarded as investigational or for research. Performed By: #### S CRSB #### [facility] (DEFAULT) [address] [place] [address] Mean Cell Hgb Conc 33.0 g/dL Normal 31.4-35.9 [facility] Comment on above: Order Comment: Colle ct [...] by the [facility] at [facility]. It has not been cleared or approved by the FDA.The laboratory is regulated under CLIA as qualified to perform high-complexity testing. This test is used for clinical purposes. It should not be regarded as investigational or for research. Performed By: #### S CRSB #### [facility] (DEFAULT) [address] [address] Platelet mean volume (Bld) [Entitic vol] 10.2 fL Normal 8.5-12.2 [facility] Comment on above: Order Comment: Colle ct [...] by the [facility] at [facility]. It has not been cleared or approved by the FDA.The laboratory is regulated under CLIA as qualified to perform high-complexity testing. This test is used for clinical purposes. It should not be regarded as investigational or for research. Performed By: #### S CRSB #### [facility] (DEFAULT) [address] [address] Platelets (Bld) [#/Vol] 204 10*3/uL Normal 150-393 [facility] Comment on above: Order Comment: Colle ct [...] by the [facility] at [facility]. It has not been cleared or approved by the FDA.The laboratory is regulated under CLIA as qualified to perform high-complexity testing. This test is used for clinical purposes. It should not be regarded as investigational or for research. Performed By: #### S CRSB #### [facility] (DEFAULT) [address] [address] RBC (Bld) [#/Vol] 3.62 10*6/uL Low 3.91-5.04 [facility] Comment on above: Order Comment: Colle ct [...] by the [facility] at [facility]. It has not been cleared or approved by the FDA.The laboratory is regulated under CLIA as qualified to perform high-complexity testing. This test is used for clinical purposes. It should not be regarded as investigational or for research. Performed By: #### S CRSB #### [facility] (DEFAULT) [address] [address] RBC Distribution 12.9 % Normal 10.8-14.9 [facility] Comment on above: Order Comment: Colle ct [...] by the [facility] at [facility]. It has not been cleared or approved by the FDA.The laboratory is regulated under CLIA as qualified to perform high-complexity testing. This test is used for clinical purposes. It should not be regarded as investigational or for research. Performed By: #### S CRSB #### [facility] (DEFAULT) [address] [address] WBC (Bld) [#/Vol] 7.88 10*3/uL Normal 3.99-11.19 [facility] Comment on above: Order Comment: Colle ct [...] by the [facility] at [facility]. It has not been cleared or approved by the FDA.The laboratory is regulated under CLIA as qualified to perform high-complexity testing. This test is used for clinical purposes. It should not be regarded as investigational or for research. Performed By: #### S CRSB #### [facility] (DEFAULT) [address] [place] [address] Erythrocyte distribution width (RBC) [Ratio] 12.9 % 10.8 - 14.9 % [facility] Hematocrit (Bld) [Volume fraction] 32.1 % Low 34.9 - 44.3 % [facility] Hemoglobin (Bld) [Mass/Vol] 10.6 g/dL Low 11.4 - 15.2 g/dL [facility] Interpretation and review of laboratory results Abnormal [facility] MCH (RBC) [Entitic mass] 29.3 pg 25.9 - 33.9 pg [facility] MCHC (RBC) [Mass/Vol] 33.0 g/dL 31.4 - 35.9 g/dL [facility] MCV (RBC) [Entitic vol] 88.7 fL 79.6 - 97.7 fL [facility] Platelet mean volume (Bld) [Entitic vol] 10.2 fL 8.5 - 12.2 fL [facility] Platelets (Bld) [#/Vol] 204 10*3/uL 150 - 393 K/uL [facility] RBC (Bld) [#/Vol] 3.62 10*6/uL [facility] WBC (Bld[facility] [#/Vol] 7.88 10*3/uL 3.99 - 11. 19 K/uL [facility] Hematocrit (Bld) [Volume fraction] 32.3 % Low 34.9-44.3 [facility] Comment on above: Performed By: #### C HM6 #### [facility] (DEFAULT) [address] [place] [address] Hemoglobin (Bld) [Mass/Vol] 10.9 g/dL Low 11.4-15.2 [facility] Comment on above: Performed By: #### C HM6 #### [facility] (DEFAULT) [address] [address] MCV (RBC) [Entitic vol] 85.7 fL Normal 79.6-97.7 [facility] Comment on above: Performed By: #### C HM6 #### [facility] (DEFAULT) [address] [address] Mean Cell Hgb 28.9 pg Normal 25.9-33.9 [facility] Comment on above: Performed By: #### C HM6 #### [facility] (DEFAULT) [address] [address] Mean Cell Hgb Conc 33.7 g/dL Normal 31.4-35.9 [facility] Comment on above: Performed By: #### C HM6 #### [facility] (DEFAULT) [address] [place] [address] Platelet mean volume (Bld) [Entitic vol] 9.7 fL Normal 8.5-12.2 [facility] Comment on above: Performed By: #### C HM6 #### [facility] (DEFAULT) [address] [address] Platelets (Bld) [#/Vol] 236 10*3/uL Normal 150-393 [facility] Comment on above: Performed By: #### C HM6 #### [facility] (DEFAULT) [address] [place] [address] RBC (Bld) [#/Vol] 3.77 10*6/uL Low 3.91-5.04 [facility] Comment on above: Performed By: #### C HM6 #### [facility] (DEFAULT) [address] [place] [address] RBC Distribution 13.0 % Normal 10.8-14.9 [facility] Comment on above: Performed By: #### C HM6 #### [facility] (DEFAULT) [address] [place] [address] WBC (Bld) [#/Vol] 6.32 10*3/uL Normal 3.99-11.19 [facility] Comment on above: Performed By: #### C HM6 #### [facility] (DEFAULT) [address] [place] [address] Erythrocyte distribution width (RBC) [Ratio] 13.0 % 10.8 - 14.9 % [facility] Hematocrit (Bld) [Volume fraction] 32.3 % Low 34.9 - 44.3 % [facility] Hemoglobin (Bld) [Mass/Vol] 10.9 g/dL Low 11.4 - 15.2 g/dL [facility] Interpretation and review of laboratory results Abnormal [facility] MCH (RBC) [Entitic mass] 28.9 pg 25.9 - 33.9 pg [facility] MCHC (RBC) [Mass/Vol] 33.7 g/dL 31.4 - 35.9 g/dL [facility] MCV (RBC) [Entitic vol] 85.7 fL 79.6 - 97.7 fL [facility] Platelet mean volume (Bld) [Entitic vol] 9.7 fL 8.5 - 12.2 fL [facility] Platelets (Bld) [#/Vol] 236 10*3/uL 150 - 393 K/uL [facility] RBC (Bld) [#/Vol] 3.77 10*6/uL Low [facility] WBC (Bld) [#/Vol] 6.32 10*3/uL 3.99 - 11. 19 K/uL [facility] CHEM 7 (LYTES,BUN,CREA,GLUC) on 04-25-2022 Anion gap [Moles/Vol] 13 mmol/L Normal 7-17 [facility] Comment on above: Order Comment: Draw upon arrival to unit. Performed By: #### NATHALIE GONSALVES7 ####[facility] (DEFAULT)[address] [place] [address] Chloride [Moles/Vol] 106 mmol/L Normal 98-108 [facility] Comment on above: Order Comment: Draw upon arrival to unit. Performed By: #### NATHALIE GONSALVES7 ####[facility] (DEFAULT)[address] [place] [address] CO2 [Moles/Vol] 24 mmol/L Normal 21-31 [facility] Comment on above: Order Comment: Draw upon arrival to unit. Performed By: #### NATHALIE GONSALVES7 ####[facility] (DEFAULT)[address] [place] [address] Creatinine [Mass/Vol] 0.64 mg/dL Normal 0.50-1.20 [facility] Comment on above: Order Comment: Draw upon arrival to unit. Performed By: #### NATHALIE GONSALVES7 ####[facility] (DEFAULT)[address] [place] [address] GFR/1.73 sq M.predicted among non-blacks MDRD (S/P/Bld) [Vol rate/Area] 85 mL/min/{1.73_m2} Normal >=60 [facility] Comment on above: Order Comment: Draw upon arrival to unit. Result Comment: Repo rted eGFR is based on the CKD-EPI 2020 equation using creatinine, age, and sex. Performed By: #### NTAHALIE GONSALVES7 ####[facility] (DEFAULT)[address] [place] [address] Glucose [Mass/Vol] 150 mg/dL High 70-99 [facility] Comment on above: Order Comment: Draw upon arrival to unit. Performed By: #### NATHALIE GONSALVES7 ####[facility] (DEFAULT)[address] [facility] [place] [address] Osmolality [Osmolality] 296 mosm/kg Normal 278-305 [facility] Comment on above: Order Comment: Draw upon arrival to unit. Performed By: #### NATHALIE GONSALVES7 ####[facility] (DEFAULT)[address] [place] [address] Potassium [Moles/Vol] 4.5 mmol/L Normal 3.5-5.0 [facility] Comment on above: Order Comment: Draw upon arrival to unit. Performed By: #### NATHALIE GONSALVES7 ####[facility] (DEFAULT)[address] [place] [address] Sodium [Moles/Vol] 138 mmol/L Normal 135-145 [facility] Comment on above: Order Comment: Draw upon arrival to unit. Performed By: #### NATHALIE GONSALVES7 ####[facility] (DEFAULT)[address] [place] [address] Urea nitrogen [Mass/Vol] 21 mg/dL Normal 7-25 [facility] Comment on above: Order Comment: Draw upon arrival to unit. Performed By: #### NATHALIE GONSALVES7 ####[facility] (DEFAULT)[address] [place] [address] Urea nitrogen/Creatinine [Mass ratio] 33 mg/mg Normal [facility] Comment on above: Order Comment: Draw upon arrival to unit. Performed By: #### NATHALIE GONSALVES7 ####[facility] (DEFAULT)[address] [facility] [place] [address] Anion gap [Moles/Vol] 13 mmol/L 7 - 17 mmol/L [facility] Chloride [Moles/Vol] 106 mmol/L 98 - 10 8 mmol/L [facility] CO2 [Moles/Vol] 24 mmol/L 21 - 31 mmol/L [facility] Creatinine [Mass/Vol] 0.64 mg/dL 0.50 - 1.20 mg/dL [facility] GFR/1.73 sq M.predicted CKD-EPI (S/P/Bld) [Vol rate/Area] 85 - PINF [facility] Comment on above: Reported eGFR is bas ed on the CKD-EPI 2020 equation using creatinine, age, and sex. Glucose [Mass/Vol] 150 mg/dL High 70 - 99 mg/dL [facility] Interpretation and review of laboratory results Abnormal [facility] Osmolality Calc [Osmolality] 296 [facility] Potassium [Moles/Vol] 4.5 mmol/L 3.5 - 5.0 mmol/L [facility] Sodium [Moles/Vol] 138 mmol/L 135 - 145 mmol/L [facility] Urea nitrogen [Mass/Vol] 21 mg/dL 7 - 25 mg/dL [facility] Urea nitrogen/Creatinine [Mass ratio] 33 mg/mg [facility] Anion gap [Moles/Vol] 14 mmol/L Normal 7-17 [facility] Comment on above: Performed By: #### L ABHSTI1 #### [facility] (DEFAULT) [address] [place] [address] Chloride [Moles/Vol] 105 mmol/L Normal 98-108 [facility] Comment on above: Performed By: #### L ABHSTI1 #### [facility] (DEFAULT) [address] [place] [address] CO2 [Moles/Vol] 23 mmol/L Normal 21-31 [facility] Comment on above: Performed By: #### L ABHSTI1 #### [facility] (DEFAULT) [address] [place] [address] Creatinine [Mass/Vol] 0.66 mg/dL Normal 0.50-1.20 [facility] Comment on above: Performed By: #### L ABHSTI1 #### [facility] (DEFAULT) [address] [place] [address] GFR/1.73 sq M.predicted among non-blacks MDRD (S/P/Bld) [Vol rate/Area] 85 mL/min/{1.73_m2} Normal >=60 [facility] Comment on above: Result Comment: Repo rted eGFR is based on the CKD-EPI 2020 equation using creatinine, age, and sex. Performed By: #### L ABHSTI1 #### [facility] (DEFAULT) [address] [address] Glucose [Mass/Vol] 106 mg/dL High 70-99 [facility] Comment on above: Performed By: #### L ABHSTI1 #### [facility] (DEFAULT) [address] [place] [address] Osmolality [Osmolality] 295 mosm/kg Normal 278-305 [facility] Comment on above: Performed By: #### L ABHSTI1 #### [facility] (DEFAULT) [address] [place] [address] Potassium [Moles/Vol] 4.3 mmol/L Normal 3.5-5.0 [facility] Comment on above: Performed By: #### L ABHSTI1 #### [facility] (DEFAULT) [address] [address] Sodium [Moles/Vol] 138 mmol/L Normal 135-145 [facility] Comment on above: Performed By: #### L ABHSTI1 #### [facility] (DEFAULT) [address] [address] Urea nitrogen [Mass/Vol] 27 mg/dL High 7-25 [facility] Comment on above: Performed By: #### L ABHSTI1 #### [facility] (DEFAULT) [address] [place] [address] Urea nitrogen/Creatinine [Mass ratio] 41 mg/mg Normal [facility] Comment on above: Performed By: #### [facility] #### [facility] (DEFAULT) [address] [place] [address] Anion gap [Moles/Vol] 14 mmol/L 7 - 17 mmol/L [facility] Chloride [Moles/Vol] 105 mmol/L 98 - 10 8 mmol/L [facility] CO2 [Moles/Vol] 23 mmol/L 21 - 31 mmol/L [facility] Creatinine [Mass/Vol] 0.66 mg/dL 0.50 - 1.20 mg/dL [facility] GFR/1.73 sq M.predicted CKD-EPI (S/P/Bld) [Vol rate/Area] 85 - PINF [facility] Comment on above: Reported eGFR is bas ed on the CKD-EPI 2020 equation using creatinine, age, and sex. Glucose [Mass/Vol] 106 mg/dL High 70 - 99 mg/dL [facility] Interpretation and review of laboratory results Abnormal [facility] Osmolality Calc [Osmolality] 295 [facility] Potassium [Moles/Vol] 4.3 mmol/L 3.5 - 5.0 mmol/L [facility] Sodium [Moles/Vol] 138 mmol/L 135 - 145 mmol/L [facility] Urea nitrogen [Mass/Vol] 27 mg/dL High 7 - 25 mg/dL [facility] Urea nitrogen/Creatinine [Mass ratio] 41 mg/mg [facility] Cardiac catheterization stud yon 04-25-2022 [facility] Radiology Study observation (narrative) [facility] Cardiac echo study Procedure Ordered By: Allen Tay on 04-25-2022 Ao peak jay 1.90 m/s [facility] Work Phone: Ao VTI 45.52 cm [facility] Work Phone: Ascending aorta 3.01 cm [facility] Work Phone: AV LVOT peak gradient [facility]: [facility] peak gradient 14 mmHG [facility] Work Phone: AV valve area 1.03 cm2 [facility] Work Phone: AV Velocity Ratio 0.50 [facility] Work Phone: LIDIA (continuity Vmax) 0.97 cm2 [facility] Work Phone: LIDIA (continuity VTI) 1.03 cm2 [facility] Work Phone: LIDIA index (continuity Vmax) 0.62 m/s [facility] Work Phone: LIDIA index (continuity VTI) 0.67 cm2/m2 [facility] Work Phone: Avg e' pk jay 0.04 m/s [facility] Work Phone: Avg E/e' ratio 33.52 [facility] Work Phone: Body surface area Derived from formula 1.55 m2 [facility] Work Phone: BP EF 50 % [facility] Work Phone: DI (Vmax) 0.50 [facility] Work Phone: DI (VTI) 0.53 m/2 [facility] Work Phone: E wave decelartion time 271.51 msec [facility] Work Phone: e' lateral pk jay 0.0400 m/s [facility] Work Phone: e' lateral pk jay 0.04 m/s [facility] Work Phone: e' septal pk jay 0.0344 m/s [facility] Work Phone: e' septal pk jay 0.03 m/s [facility] Work Phone: E/A ratio 0.94 [facility] Work Phone: E/e' lateral ratio 31.00 [facility] Work Phone: E/e' septal ratio 36.05 [facility] Work Phone: EF SP 2CH 63 [facility] Work Phone: EF SP 4CH 38 [facility] Work Phone: FS 19 % 28 - 44 % [facility] Work Phone: IVC ostium 1.29 cm [facility] Work Phone: IVS 1.46 cm [facility] Work Phone: LA AREA 2CH 17.45 cm2 [facility] Work Phone: LA area 4CH 21.49 cm2 [facility] Work Phone: LA ESV BP (MOD) 63 mL [facility] Work Phone: LA ESV BP (MOD) index 41 mL/m2 [facility] Work Phone: LA ESV SP 2CH (MOD) 52 mL [facility] Work Phone: LA ESV SP 4CH (MOD) 58 [facility] Work Phone: LV EDV BP 58 mL [facility] Work Phone: LV EDV SP 2CH 59 mL [facility] Work Phone: LV EDV SP 4CH 55 mL [facility] Work Phone: LV ESV BP 29 mL [facility] Work Phone: LV ESV SP 2CH 22 mL [facility] Work Phone: LV ESV SP 4CH 34 mL [facility] Work Phone: LV mass 144.20 g [facility] Work Phone: LV Mass Index 93.0 g/m2 [facility] Work Phone: LV RWT 0.71 [facility] Work Phone: LV stroke volume BP (ml) 29 mL [facility] Work Phone: LV stroke volume index BP 18.71 mL/m2 [facility] Work Phone: LVIDD 3.30 cm [facility] Work Phone: LVIDS 2.67 cm [facility] Work Phone: LVOT area 1.93 cm2 [facility] Work Phone: LVOT diameter 1.57 cm [facility] Work Phone: LVOT peak jay 0.95 m/s [facility] Work Phone: LVOT peak VTI 24.26 cm [facility] Work Phone: LVOT stroke volume 47 cm3 [facility] Work Phone: LVOT stroke volume index 30.29 ml/m2 [facility] Work Phone: MV mean gradient 3 mmHg [facility] Work Phone: MV peak gradient 8 mmHg [facility] Work Phone: MV pk A jay 1.32 m/s [facility] Work Phone: MV pk E jay 1.24 m/s [facility] Work Phone: MV valve area by continuity eq 0.93 cm2 [facility] Work Phone: MV VTI 50.60 cm [facility] Work Phone: MVA (continuity VTI) 0.93 cm [facility] Work Phone: [facility] AV VTI RATIO PRE STRESS 0.53 [facility] Work Phone: OSU ECHO LV BIPLANE SYSTOLIC VOLUME INDEX 18.71 mL/m2 [facility] Work Phone: OSU ECHO LV BP DIASTOLIC VOLUME INDEX 37.42 mL/m2 [facility] Work Phone: PV peak gradient [facility]: PV PK JAY 0.83 m/s [facility] Work Phone: PW 1.17 cm [facility] Work Phone: RVOT peak gradient 2 mmHg [facility] Work Phone: RVOT peak jay 0.66 m/s [facility] Work Phone: Sinus 2.85 cm [facility] Work Phone: STJ 2.29 cm [facility] Work Phone: Stroke Volume 47 cm/mL [facility] Work Phone: Stroke volume index 30 [facility] Work Phone: TAPSE 2.01 cm [facility] Work Phone: [facility] Work Phone: Cardiac echo study Procedure on [...] echocardiography study was performed. Imaging system used: [employer]. 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 [facility] Radiology Study observation (narrative) [facility] ECHOCARDIOGRAMon 04-25-2022 Echocardiography ? S/p 23 mm [...] the original result were not included. Facility [facility] Patient Information Patient Name Finesse [...] Role Read Date Allen Tay MD Echo [place] 04/25/2022 Left Heart Measurements LV - Systole [...] 30.29 ml/m (more content not included)... Normal [facility] GLUCOSE POCon 04-25-2022 Glucose [Mass/Vol] 225 mg/dL High 70 - 99 mg/dL [facility] Interpretation and review of laboratory results Abnormal [facility] POC Sample Type CAPBL [facility] Test performed at address of the patient encounter. [facility] Glucose [Mass/Vol] 219 mg/dL High 70 - 99 mg/dL [facility] Interpretation and review of laboratory results Abnormal [facility] POC Sample Type CAPBL [facility] Test performed at address of the patient encounter. [facility] Glucose [Mass/Vol] 149 mg/dL High 70 - 99 mg/dL [facility] Interpretation and review of laboratory results Abnormal [facility] POC Sample Type CAPBL [facility] Test performed at address of the patient encounter. [facility] Glucose [Mass/Vol] 135 mg/dL High 70 - 99 mg/dL [facility] Interpretation and review of laboratory results Abnormal [facility] POC Sample Type CAPBL [facility] Test performed at address of the patient encounter. [facility] MAGNESIUMon 04-25-2022 Magnesium [Mass/Vol] 1.8 mg/dL Normal 1.6-2.6 [facility] Comment on above: Order Comment: Draw upon arrival to unit. Performed By: #### M [facility] ####[facility] (DEFAULT)[address] [place] [address] Interpretation and review of laboratory results Normal [facility] Magnesium [Mass/Vol] 1.8 mg/dL 1.6 - 2 .6 mg/dL [facility] METANEPHRINES,24HR URINEon 0 04-25-2022 Annotation comment [Interpretation] Narrative DNR [facility] Collection duration (U) 24 h [facility] Metanephrine (24H U) [Mass/Time] 87 mcg/24 h [facility] Comment on above: REFERENCE VALUE 30-180 (Normotensive) <400 (Hypertensive) Metanephrines (24H U) [Mass/Time] 567 mcg/24 h [facility] Comment on above: REFERENCE VALUE 180-646 (Normotensive) <1300 (Hypertensive) Normetanephrine (24H U) [Mass/Time] 480 mcg/24 h [facility] Comment on above: REFERENCE VALUE 148-560 (Normotensive) <900 (Hypertensive) Specimen volume (24H U) 0.861 L [facility] Comment on above: ADDITIONAL INFORMATION This test was developed and its performance characteristics determined by [facility] in a manner consistent with CLIA requirements. This test has not been cleared or approved by the [place]. Food and Drug Administration. Test Performed by: [facility] [address] [place] [address] [employer] Back Tender: Sha Goode M.D. Ph.D.; CLIA# [id number] [facility] No Panel Informationon 04-25 ABO/RH(D) TYPE Positive [facility] BLOOD COMPONENT TYPE Red Cells, Leukoreduced [facility] EXPIRATION DATE [id number] [facility] Product ABO/RH(D) Positive [facility] Product ABO/RH(D) NUMBER 5100 [facility] PRODUCT CODE [id number] [facility] UNIT STATUS released [facility] PREPARE TO TRANSFUSE OR RED BLOOD CELLSon 04-25-2022 UNIT NUMBER [id number] [facility] UNIT NUMBER [id number] [facility] PT,INR,PTTon 04-25-2022 aPTT Coag (Bld) [Time] 31.2 s Normal 24.0-34.3 [facility] Comment on above: Order Comment: Draw upon arrival to unit. Performed By: #### C HM6 #### [facility] (DEFAULT) [address] [place] [address] INR Coag (PPP) [Relative time] 1.1 {INR} Normal 0.9-1.1 [facility] Comment on above: Order Comment: Draw upon arrival to unit. Performed By: #### C HM6 #### [facility] (DEFAULT) [address] [place] [address] PT Coag (PPP) [Time] 14.1 s Normal 11.9-14.2 [facility] Comment on above: Order Comment: Draw upon arrival to unit. Performed By: #### C HM6 #### [facility] (DEFAULT) [address] [place] [address] aPTT Coag (PPP) [Time] 31.2 s [facility] INR Coag (Bld) [Relative time] 1.1 {INR} 0.9 - 1.1 [facility] Interpretation and review of laboratory results Normal [facility] PT Coag (PPP) [Time] 14.1 s [facility] Portable XR Chest Viewson IMPRESSION: Skinfold [...] lateral apex. Mild edema. Linear atelectatic changes. [facility] Radiology Study observation (narrative) [facility] Portable XR Chest ViewsOrder ed By: Sung Uriarte on 04-25-2022 [facility] Work Phone: XR CHEST PORTABLEon 04-25-19 XR [...] apex. Mild edema. Linear atelectatic changes. Normal [facility] ABORH TYPE RECONFIRMATIONon 04-24-2022 ABO/RH(D) TYPE Positive [facility] ABO/RH(D) TYPE Positive Normal [facility] Comment on above: Performed By: #### T YPEC #### [facility] (DEFAULT) [address] [place] [address] CBC,PLATELETSon 04-24-2022 Hematocrit (Bld) [Volume fraction] 31.2 % Low 34.9-44.3 [facility] Comment on above: Performed By: #### C HM6 #### [facility] (DEFAULT) [address] [address] Hemoglobin (Bld) [Mass/Vol] 10.3 g/dL Low 11.4-15.2 [facility] Comment on above: Performed By: #### C HM6 #### [facility] (DEFAULT) [address] [place] [address] MCV (RBC) [Entitic vol] 86.2 fL Normal 79.6-97.7 [facility] Comment on above: Performed By: #### C HM6 #### [facility] (DEFAULT) [address] [place] [address] Mean Cell Hgb 28.5 pg Normal 25.9-33.9 [facility] Comment on above: Performed By: #### C HM6 #### [facility] (DEFAULT) [address] [place] [address] Mean Cell Hgb Conc 33.0 g/dL Normal 31.4-35.9 [facility] Comment on above: Performed By: #### C HM6 #### [facility] (DEFAULT) [address] [place] [address] Platelet mean volume (Bld) [Entitic vol] 9.9 fL Normal 8.5-12.2 [facility] Comment on above: Performed By: #### C HM6 #### [facility] (DEFAULT) [address] [address] Platelets (Bld) [#/Vol] 205 10*3/uL Normal 150-393 [facility] Comment on above: Performed By: #### C HM6 #### [facility] (DEFAULT) [address] [place] [address] RBC (Bld) [#/Vol] 3.62 10*6/uL Low 3.91-5.04 [facility] Comment on above: Performed By: #### C HM6 #### [facility] (DEFAULT) [address] [address] RBC Distribution 13.0 % Normal 10.8-14.9 [facility] Comment on above: Performed By: #### C HM6 #### [facility] (DEFAULT) [address] [place] [address] WBC (Bld) [#/Vol] 5.78 10*3/uL Normal 3.99-11.19 [facility] Comment on above: Performed By: #### C HM6 #### [facility] (DEFAULT) [address] [place] [address] Erythrocyte distribution width (RBC) [Ratio] 13.0 % 10.8 - 14.9 % [facility] Hematocrit (Bld) [Volume fraction] 31.2 % Low 34.9 - 44.3 % [facility] Hemoglobin (Bld) [Mass/Vol] 10.3 g/dL Low 11.4 - 15.2 g/dL [facility] Interpretation and review of laboratory results Abnormal [facility] MCH (RBC) [Entitic mass] 28.5 pg 25.9 - 33.9 pg [facility] MCHC (RBC) [Mass/Vol] 33.0 g/dL 31.4 - 35.9 g/dL [facility] MCV (RBC) [Entitic vol] 86.2 fL 79.6 - 97.7 fL [facility] Platelet mean volume (Bld) [Entitic vol] 9.9 fL 8.5 - 12.2 fL [facility] Platelets (Bld) [#/Vol] 205 10*3/uL 150 - 393 K/uL [facility] RBC (Bld) [#/Vol] 3.62 10*6/uL Low [facility] WBC (Bld) [#/Vol] 5.78 10*3/uL 3.99 - 11. 19 K/uL [facility] CHEM 7 (LYTES,BUN,CREA,GLUC) on 04-24-2022 Anion gap [Moles/Vol] 11 mmol/L Normal 7-17 [facility] Comment on above: Performed By: #### C HM7 #### [facility] (DEFAULT) [address] [place] [address] Chloride [Moles/Vol] 106 mmol/L Normal 98-108 [facility] Comment on above: Performed By: #### C HM7 #### [facility] (DEFAULT) [address] [place] [address] CO2 [Moles/Vol] 25 mmol/L Normal 21-31 [facility] Comment on above: Performed By: #### C HM7 #### [facility] (DEFAULT) [address] [place] [address] Creatinine [Mass/Vol] 0.62 mg/dL Normal 0.50-1.20 [facility] Comment on above: Performed By: #### C HM7 #### [facility] (DEFAULT) [address] [place] [address] GFR/1.73 sq M.predicted among non-blacks MDRD (S/P/Bld) [Vol rate/Area] 86 mL/min/{1.73_m2} Normal >=60 [facility] Comment on above: Result Comment: Repo rted eGFR is based on the CKD-EPI 2020 equation using creatinine, age, and sex. Performed By: #### C HM7 #### [facility] (DEFAULT) [address] [place] [address] Glucose [Mass/Vol] 140 mg/dL High 70-99 [facility] Comment on above: Performed By: #### C HM7 #### [facility] (DEFAULT) [address] [place] [address] Osmolality [Osmolality] 295 mosm/kg Normal 278-305 [facility] Comment on above: Performed By: #### C HM7 #### [facility] (DEFAULT) [address] [place] [address] Potassium [Moles/Vol] 4.4 mmol/L Normal 3.5-5.0 [facility] Comment on above: Performed By: #### C HM7 #### [facility] (DEFAULT) [address] [place] [address] Sodium [Moles/Vol] 138 mmol/L Normal 135-145 [facility] Comment on above: Performed By: #### C HM7 #### [facility] (DEFAULT) [address] [place] [address] Urea nitrogen [Mass/Vol] 21 mg/dL Normal 7-25 [facility] Comment on above: Performed By: #### C HM7 #### [facility] (DEFAULT) [address] [place] [address] Urea nitrogen/Creatinine [Mass ratio] 34 mg/mg Normal [facility] Comment on above: Performed By: #### C HM7 #### [facility] (DEFAULT) [address] [place] [address] Anion gap [Moles/Vol] 11 mmol/L 7 - 17 mmol/L [facility] Chloride [Moles/Vol] 106 mmol/L 98 - 10 8 mmol/L [facility] CO2 [Moles/Vol] 25 mmol/L 21 - 31 mmol/L [facility] Creatinine [Mass/Vol] 0.62 mg/dL 0.50 - 1.20 mg/dL [facility] GFR/1.73 sq M.predicted CKD-EPI (S/P/Bld) [Vol rate/Area] 86 - PINF [facility] Comment on above: Reported eGFR is bas ed on the CKD-EPI 2020 equation using creatinine, age, and sex. Glucose [Mass/Vol] 140 mg/dL High 70 - 99 mg/dL [facility] Interpretation and review of laboratory results Abnormal [facility] Osmolality Calc [Osmolality] 295 [facility] Potassium [Moles/Vol] 4.4 mmol/L 3.5 - 5.0 mmol/L [facility] Sodium [Moles/Vol] 138 mmol/L 135 - 145 mmol/L [facility] Urea nitrogen [Mass/Vol] 21 mg/dL 7 - 25 mg/dL [facility] Urea nitrogen/Creatinine [Mass ratio] 34 mg/mg [facility] CONTINUOUS CARDIAC MONITORIN G STRIPon 04-24-2022 [facility] [facility] [place] GLUCOSE POCon 04-24-2022 Glucose [Mass/Vol] 180 mg/dL High 70 - 99 mg/dL [facility] Interpretation and review of laboratory results Abnormal [facility] POC Sample Type CAPBL [facility] Test performed at address of the patient encounter. [facility] [Mass/Vol] 164 mg/dL High 70 - 99 mg/dL [facility] Interpretation and review of laboratory results Abnormal [facility] POC Sample Type CAPBL [facility] Test performed at address of the patient encounter. [facility] Glucose [Mass/Vol] 143 mg/dL High 70 - 99 mg/dL [facility] Interpretation and review of laboratory results Abnormal [facility] POC Sample Type CAPBL [facility] Test performed at address of the patient encounter. [facility] Glucose [Mass/Vol] 133 mg/dL High 70 - 99 mg/dL [facility] Interpretation and review of laboratory results Abnormal [facility] POC Sample Type [facility] Test performed at address of the patient encounter. [facility] TYPE AND SCREENon 04-24-2022 ABO/RH(D) TYPE Positive Normal [facility] Comment on above: Performed By: #### X M #### [facility] (DEFAULT) [address] [address] ABO/RH(D) TYPE Positive [facility] CBC,PLATELETSon 04-23-2022 Hematocrit (Bld) [Volume fraction] 33.9 % Low 34.9-44.3 [facility] Comment on above: Performed By: #### L ABHSTI1 #### [facility] (DEFAULT) [address] [address] Hemoglobin (Bld) [Mass/Vol] 11.3 g/dL Low 11.4-15.2 [facility] Comment on above: Performed By: #### L ABHSTI1 #### [facility] (DEFAULT) [address] [address] MCV (RBC) [Entitic vol] 87.1 fL Normal 79.6-97.7 [facility] Comment on above: Performed By: #### L ABHSTI1 #### [facility] (DEFAULT) [address] [address] Mean Cell Hgb 29.0 pg Normal 25.9-33.9 [facility] Comment on above: Performed By: #### L ABHSTI1 #### [facility] (DEFAULT) [address] [address] Mean Cell Hgb Conc 33.3 g/dL Normal 31.4-35.9 [facility] Comment on above: Performed By: #### L ABHSTI1 #### [facility] (DEFAULT) [address] [address] Platelet mean volume (Bld) [Entitic vol] 10.1 fL Normal 8.5-12.2 [facility] Comment on above: Performed By: #### L ABHSTI1 #### [facility] (DEFAULT) [address] [address] Platelets (Bld) [#/Vol] 224 10*3/uL Normal 150-393 [facility] Comment on above: Performed By: #### L ABHSTI1 #### [facility] (DEFAULT) [address] [address] RBC (Bld) [#/Vol] 3.89 10*6/uL Low 3.91-5.04 [facility] Comment on above: Performed By: #### L ABHSTI1 #### [facility] (DEFAULT) [address] [address] RBC Distribution 13.2 % Normal 10.8-14.9 [facility] Comment on above: Performed By: #### L ABHSTI1 #### [facility] (DEFAULT) [address] [place] [address] WBC (Bld) [#/Vol] 6.07 10*3/uL Normal 3.99-11.19 [facility] Comment on above: Performed By: #### L ABHSTI1 #### [facility] (DEFAULT) [address] [place] [address] Erythrocyte distribution width (RBC) [Ratio] 13.2 % 10.8 - 14.9 % [facility] Hematocrit (Bld) [Volume fraction] 33.9 % Low 34.9 - 44.3 % [facility] Hemoglobin (Bld) [Mass/Vol] 11.3 g/dL Low 11.4 - 15.2 g/dL [facility] Interpretation and review of laboratory results Abnormal [facility] MCH (RBC) [Entitic mass] 29.0 pg 25.9 - 33.9 pg [facility] MCHC (RBC) [Mass/Vol] 33.3 g/dL 31.4 - 35.9 g/dL [facility] MCV (RBC) [Entitic vol] 87.1 fL 79.6 - 97.7 fL [facility] Platelet mean volume (Bld) [Entitic vol] 10.1 fL 8.5 - 12.2 fL [facility] Platelets (Bld) [#/Vol] 224 10*3/uL 150 - 393 K/uL [facility] RBC (Bld) [#/Vol] 3.89 10*6/uL Low [facility] WBC (Bld) [#/Vol] 6.07 10*3/uL 3.99 - 11. 19 K/uL [facility] CHEM 7 (LYTES,BUN,CREA,GLUC) on 04-23-2022 Anion gap [Moles/Vol] 15 mmol/L Normal 7-17 [facility] Comment on above: Performed By: #### Y METN #### [facility] (DEFAULT) [address] [place] [address] Chloride [Moles/Vol] 106 mmol/L Normal 98-108 [facility] Comment on above: Performed By: #### Y METN #### [facility] (DEFAULT) [address] [address] CO2 [Moles/Vol] 24 mmol/L Normal 21-31 [facility] Comment on above: Performed By: #### Y METN #### [facility] (DEFAULT) [address] [place] [address] Creatinine [Mass/Vol] 0.57 mg/dL Normal 0.50-1.20 [facility] Comment on above: Performed By: #### Y METN #### [facility] (DEFAULT) [address] [address] GFR/1.73 sq M.predicted among non-blacks MDRD (S/P/Bld) [Vol rate/Area] 88 mL/min/{1.73_m2} Normal >=60 [facility] Comment on above: Result Comment: Repo rted eGFR is based on the CKD-EPI 2020 equation using creatinine, age, and sex. Performed By: #### Y METN #### [facility] (DEFAULT) [address] [address] Glucose [Mass/Vol] 146 mg/dL High 70-99 [facility] Comment on above: Performed By: #### Y METN #### [facility] (DEFAULT) [address] [place] [address] Osmolality [Osmolality] 300 mosm/kg Normal 278-305 [facility] Comment on above: Performed By: #### Y METN #### [facility] (DEFAULT) [address] [address] Potassium [Moles/Vol] 4.7 mmol/L Normal 3.5-5.0 [facility] Comment on above: Performed By: #### Y METN #### [facility] (DEFAULT) [address] [place] [address] Sodium [Moles/Vol] 140 mmol/L Normal 135-145 [facility] Comment on above: Performed By: #### Y METN #### [facility] (DEFAULT) [address] [place] [address] Urea nitrogen [Mass/Vol] 20 mg/dL Normal 7-25 [facility] Comment on above: Performed By: #### Y METN #### [facility] (DEFAULT) [address] [place] [address] Urea nitrogen/Creatinine [Mass ratio] 35 mg/mg Normal [facility] Comment on above: Performed By: #### Y METN #### [facility] (DEFAULT) [address] [place] [address] Anion gap [Moles/Vol] 15 mmol/L 7 - 17 mmol/L [facility] Chloride [Moles/Vol] 106 mmol/L 98 - 10 8 mmol/L [facility] CO2 [Moles/Vol] 24 mmol/L 21 - 31 mmol/L [facility] Creatinine [Mass/Vol] 0.57 mg/dL 0.50 - 1.20 mg/dL [facility] GFR/1.73 sq M.predicted CKD-EPI (S/P/Bld) [Vol rate/Area] 88 - PINF [facility] Comment on above: Reported eGFR is bas ed on the CKD-EPI 2020 equation using creatinine, age, and sex. Glucose [Mass/Vol] 146 mg/dL High 70 - 99 mg/dL [facility] Interpretation and review of laboratory results Abnormal [facility] Osmolality Calc [Osmolality] 300 [facility] Potassium [Moles/Vol] 4.7 mmol/L 3.5 - 5.0 mmol/L [facility] Sodium [Moles/Vol] 140 mmol/L 135 - 145 mmol/L [facility] Urea nitrogen [Mass/Vol] 20 mg/dL 7 - 25 mg/dL [facility] Urea nitrogen/Creatinine [Mass ratio] 35 mg[facility] CONTINUOUS CARDIAC MONITORIN G STRIPon 04-23-2022 [facility] GLUCOSE POCon 04-23-2022 Glucose [Mass/Vol] 144 mg/dL High 70 - 99 mg/dL [facility] Interpretation and review of laboratory results Abnormal [facility] POC Sample Type CAPBL [facility] Test performed at address of the patient encounter. [facility] Glucose [Mass/Vol] 89 mg/dL 70 - 99 mg/dL [facility] POC Sample Type CAPBL [facility] Test performed at address of the patient encounter. [facility] Glucose [Mass/Vol] 167 mg/dL High 70 - 99 mg/dL [facility] Interpretation and review of laboratory results Abnormal [facility] POC Sample Type CAPBL [facility] Test performed at address of the patient encounter. [facility] Glucose [Mass/Vol] 149 mg/dL High 70 - 99 mg/dL [facility] Interpretation and review of laboratory results Abnormal [facility] POC Sample Type VENO [facility] Test performed at address of the patient encounter. [facility] METANEPHRINES, PLASMAon 03-31 Metanephrine Free [Moles/Vol] <0.20 NINF - 0.50 nmol/L [facility] Comment on above: ADDITIONAL INFORMATION This test was developed and its performance characteristics determined by [facility] in a manner consistent with CLIA requirements. This test has not been cleared or approved by the U.S. Food and Drug Administration. Test Performed by: [facility] - [address] [address] [employer] Back Tender: Sha Goode M.D. Ph.D.; CLIA# [id number] Normetanephrine Free [Moles/Vol] 0.57 nmol/L NINF - 0.90 nmol/L [facility] CBC,PLATELETSon 04-22-2022 Hematocrit (Bld) [Volume fraction] 31.2 % Low 34.9-44.3 [facility] Comment on above: Performed By: #### T YPEC #### [facility] (DEFAULT) [address] [address] Hemoglobin (Bld) [Mass/Vol] 10.4 g/dL Low 11.4-15.2 [facility] Comment on above: Performed By: #### T YPEC #### [facility] (DEFAULT) [address] [address] MCV (RBC) [Entitic vol] 86.2 fL Normal 79.6-97.7 [facility] Comment on above: Performed By: #### T YPEC #### [facility] (DEFAULT) [address] [address] Mean Cell Hgb 28.7 pg Normal 25.9-33.9 [facility] Comment on above: Performed By: #### T YPEC #### [facility] (DEFAULT) [address] [address] Mean Cell Hgb Conc 33.3 g/dL Normal 31.4-35.9 [facility] Comment on above: Performed By: #### T YPEC #### [facility] (DEFAULT) [address] [address] Platelet mean volume (Bld) [Entitic vol] 9.9 fL Normal 8.5-12.2 [facility] Comment on above: Performed By: #### T YPEC #### [facility] (DEFAULT) [address] [address] Platelets (Bld) [#/Vol] 198 10*3/uL Normal 150-393 [facility] Comment on above: Performed By: #### T YPEC #### [facility] (DEFAULT) [address] [place] [address] RBC (Bld) [#/Vol] 3.62 10*6/uL Low 3.91-5.04 [facility] Comment on above: Performed By: #### T YPEC #### [facility] (DEFAULT) [address] [place] [address] RBC Distribution 13.2 % Normal 10.8-14.9 [facility] Comment on above: Performed By: #### T YPEC #### [facility] (DEFAULT) [address] [place] [address] WBC (Bld) [#/Vol] 6.19 10*3/uL Normal 3.99-11.19 [facility] Comment on above: Performed By: #### T YPEC #### [facility] (DEFAULT) [address] [place] [address] Erythrocyte distribution width (RBC) [Ratio] 13.2 % 10.8 - 14.9 % [facility] Hematocrit (Bld) [Volume fraction] 31.2 % Low 34.9 - 44.3 % [facility] Hemoglobin (Bld) [Mass/Vol] 10.4 g/dL Low 11.4 - 15.2 g/dL [facility] Interpretation and review of laboratory results Abnormal [facility] MCH (RBC) [Entitic mass] 28.7 pg 25.9 - 33.9 pg [facility] MCHC (RBC) [Mass/Vol] 33.3 g/dL 31.4 - 35.9 g/dL [facility] MCV (RBC) [Entitic vol] 86.2 fL 79.6 - 97.7 fL [facility] Platelet mean volume (Bld) [Entitic vol] 9.9 fL 8.5 - 12.2 fL [facility] Platelets (Bld) [#/Vol] 198 10*3/uL 150 - 393 K/uL [facility] RBC (Bld) [#/Vol] 3.62 10*6/uL Low [facility] WBC (Bld) [#/Vol] 6.19 10*3/uL 3.99 - 11. 19 K/uL [facility] CHEM 7 (LYTES,BUN,CREA,GLUC) on 04-22-2022 Anion gap [Moles/Vol] 12 mmol/L Normal 7-17 [facility] Comment on above: Performed By: #### T YPEC #### [facility] (DEFAULT) [address] [place] [address] Chloride [Moles/Vol] 104 mmol/L Normal 98-108 [facility] Comment on above: Performed By: #### T YPEC #### [facility] (DEFAULT) [address] [place] [address] CO2 [Moles/Vol] 26 mmol/L Normal 21-31 [facility] Comment on above: Performed By: #### T YPEC #### [facility] (DEFAULT) [address] [place] [address] Creatinine [Mass/Vol] 0.55 mg/dL Normal 0.50-1.20 [facility] Comment on above: Performed By: #### T YPEC #### [facility] (DEFAULT) [address] [place] [address] GFR/1.73 sq M.predicted among non-blacks MDRD (S/P/Bld) [Vol rate/Area] 89 mL/min/{1.73_m2} Normal >=60 [facility] Comment on above: Result Comment: Repo rted eGFR is based on the CKD-EPI 2020 equation using creatinine, age, and sex. Performed By: #### T YPEC #### [facility] (DEFAULT) [address] [place] [address] Glucose [Mass/Vol] 149 mg/dL High 70-99 [facility] Comment on above: Performed By: #### T YPEC #### [facility] (DEFAULT) [address] [place] [address] Osmolality [Osmolality] 293 mosm/kg Normal 278-305 [facility] Comment on above: Performed By: #### T YPEC #### [facility] (DEFAULT) [address] [place] [address] Potassium [Moles/Vol] 4.8 mmol/L Normal 3.5-5.0 [facility] Comment on above: Performed By: #### T YPEC #### [facility] (DEFAULT) [address] [place] [address] Sodium [Moles/Vol] 137 mmol/L Normal 135-145 [facility] Comment on above: Performed By: #### T YPEC #### [facility] (DEFAULT) [address] [place] [address] Urea nitrogen [Mass/Vol] 16 mg/dL Normal 7-25 [facility] Comment on above: Performed By: #### T YPEC #### [facility] (DEFAULT) [address] [place] [address] Urea nitrogen/Creatinine [Mass ratio] 29 mg/mg Normal [facility] Comment on above: Performed By: #### T YPEC #### [facility] (DEFAULT) [address] [place] [address] Anion gap [Moles/Vol] 12 mmol/L 7 - 17 mmol/L [facility] Chloride [Moles/Vol] 104 mmol/L 98 - 10 8 mmol/L [facility] CO2 [Moles/Vol] 26 mmol/L 21 - 31 mmol/L [facility] Creatinine [Mass/Vol] 0.55 mg/dL 0.50 - 1.20 mg/dL [facility] GFR/1.73 sq M.predicted CKD-EPI (S/P/Bld) [Vol rate/Area] 89 - PINF [facility] Comment on above: Reported eGFR is bas ed on the CKD-EPI 2020 equation using creatinine, age, and sex. Glucose [Mass/Vol] 149 mg/dL High 70 - 99 mg/dL [facility] Interpretation and review of laboratory results Abnormal [facility] Osmolality Calc [Osmolality] 293 [facility] Potassium [Moles/Vol] 4.8 mmol/L 3.5 - 5.0 mmol/L [facility] Sodium [Moles/Vol] 137 mmol/L 135 - 145 mmol/L [facility] Urea nitrogen [Mass/Vol] 16 mg/dL 7 - 25 mg/dL [facility] Urea nitrogen/Creatinine [Mass ratio] 29 mg/mg [facility] GLUCOSE POCon 04-22-2022 Glucose [Mass/Vol] 219 mg/dL High 70 - 99 mg/dL [facility] Interpretation and review of laboratory results Abnormal [facility] POC Sample Type CAPBL [facility] Test performed at address of the patient encounter. [facility] Glucose [Mass/Vol] 145 mg/dL High 70 - 99 mg/dL [facility] Interpretation and review of laboratory results Abnormal [facility] POC Sample Type CAPBL [facility] Test performed at address of the patient encounter. [facility] Glucose [Mass/Vol] 211 mg/dL High 70 - 99 mg/dL [facility] Interpretation and review of laboratory results Abnormal [facility] POC Sample Type CAPBL [facility] Test performed at address of the patient encounter. [facility] Glucose [Mass/Vol] 136 mg/dL High 70 - 99 mg/dL [facility] Interpretation and review of laboratory results Abnormal [facility] POC Sample Type CAPBL [facility] Test performed at address of the patient encounter. [facility] INVASIVE CARDIOVASCULAR PROC EDUREon 04-22-2022 INVASIVE [...] was unable to be traversed with a Franklin XT. A Whisper wire was successfully advanced [...] was unable to be traversed with a Franklin XT. A Whisper wire was successfully advanced [...] Procedure Ordering Physician: ELE SAAVEDRA Order #: [id number] Study Date: 04/01/2022 Patient Information Name MRN Description Fineses Prather [id number] y.o. female Location Name Address [facility] [address] [facility] [address] Physicians Panel Physicians Referring Physician Case Authorizing Physician Eder Jaime Jr., MD (Primary) MD Ele Chapman MD Alexander J Meyer, MD (Fellow) CC Referring Recipient Method Contact Information [facility] MD In Basket ? Murphy Burton MD Fax ? Procedures IVUS CORONARY STENT-CORONARY LAD Indications 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 [I25.110 (ICD-10-CM)] NSTEMI (non-ST elevated myoca (more content not included)... Normal [facility] METANEPHRINES,24HR URINEon 0 1--2022 INTERVAL: 24 h Normal [facility] Comment on above: Order Comment: Prese rvative, acetic acid, obtained from lab Performed By: #### Y METN #### [facility] (DEFAULT) [address] [place] [address] METANEPHRINE, URINE 87 mcg/24 h Normal [facility] Comment on above: Order Comment: Prese rvative, acetic acid, obtained from lab Result Comment: REFERENCE VALUE 30-180 (Normotensive) <400 (Hypertensive) Performed By: #### Y METN #### [facility] (DEFAULT) [address] [place] [address] METANEPHRINES, FRACT, 24H URINE DNR Normal [facility] Comment on above: Order Comment: Prese rvative, acetic acid, obtained from lab Performed By: #### Y METN #### [facility] (DEFAULT) [address] [place] [address] METANEPHRINES, TOTAL, URINE 567 mcg/24 h Normal [facility] Comment on above: Order Comment: Prese rvative, acetic acid, obtained from lab Result Comment: REFERENCE VALUE 180-646 (Normotensive) <1300 (Hypertensive) Performed By: #### Y METN #### [facility] (DEFAULT) [address] [address] NORMETANEPHRINE, URINE 480 mcg/24 h Normal [facility] Comment on above: Order Comment: Prese rvative, acetic acid, obtained from lab Result Comment: REFERENCE VALUE 148-560 (Normotensive) <900 (Hypertensive) Performed By: #### Y METN #### [facility] (DEFAULT) [address] [place] [address] VOLUME: 861 mL Normal [facility] Comment on above: Order Comment: Prese rvative, acetic acid, obtained from lab Result Comment: ADDITIONAL INFORMATION This test was developed and its performance characteristics determined by [facility] in a manner consistent with CLIA requirements. This test has not been cleared or approved by the U.S. Food and Drug Administration. Test Performed by: [facility] [address] [place] [address] Cl[employer] Washer Back Tender: Sha Goode M.D. Ph.D.; CLIA# [id number] Performed By: #### Y METN #### [facility] (DEFAULT) [address] [place] [address] US.doppler Renal vesselsOrde red By: Staci Bonilla on 04-22-2022 [facility] Work Phone: US.doppler Renal vesselson 0 04-22-2022 Radiology Study observation (narrative) [facility] CBC,PLATELETSon 04-21-2022 Hematocrit (Bld) [Volume fraction] 31.6 % Low 34.9-44.3 [facility] Comment on above: Performed By: #### Y METN #### [facility] (DEFAULT) [address] [place] [address] Hemoglobin (Bld) [Mass/Vol] 10.6 g/dL Low 11.4-15.2 [facility] Comment on above: Performed By: #### Y METN #### [facility] (DEFAULT) [address] [place] [address] MCV (RBC) [Entitic vol] 86.3 fL Normal 79.6-97.7 [facility] Comment on above: Performed By: #### Y METN #### [facility] (DEFAULT) [address] [place] [address] Mean Cell Hgb 29.0 pg Normal 25.9-33.9 [facility] Comment on above: Performed By: #### Y METN #### [facility] (DEFAULT) [address] [place] [address] Mean Cell Hgb Conc 33.5 g/dL Normal 31.4-35.9 [facility] Comment on above: Performed By: #### Y METN #### [facility] (DEFAULT) [address] [place] [address] Platelet mean volume (Bld) [Entitic vol] 10.2 fL Normal 8.5-12.2 [facility] Comment on above: Performed By: #### Y METN #### [facility] (DEFAULT) [address] [address] Platelets (Bld) [#/Vol] 203 10*3/uL Normal 150-393 [facility] Comment on above: Performed By: #### Y METN #### [facility] (DEFAULT) [address] [place] [address] RBC (Bld) [#/Vol] 3.66 10*6/uL Low 3.91-5.04 [facility] Comment on above: Performed By: #### Y METN #### [facility] (DEFAULT) [address] [place] [address] 90798 RBC Distribution 13.3 % Normal 10.8-14.9 [facility] Comment on above: Performed By: #### Y METN #### [facility] (DEFAULT) [address] [place] [address] 78677 WBC (Bld) [#/Vol] 6.15 10*3/uL Normal 3.99-11.19 [facility] Comment on above: Performed By: #### Y METN #### [facility] (DEFAULT) [address] [place] [address] 01535 Erythrocyte distribution width (RBC) [Ratio] 13.3 % 10.8 - 14.9 % [facility] Hematocrit (Bld) [Volume fraction] 31.6 % Low 34.9 - 44.3 % [facility] Hemoglobin (Bld) [Mass/Vol] 10.6 g/dL Low 11.4 - 15.2 g/dL [facility] Interpretation and review of laboratory results Abnormal [facility] MCH (RBC) [Entitic mass] 29.0 pg 25.9 - 33.9 pg [facility] MCHC (RBC) [Mass/Vol] 33.5 g/dL 31.4 - 35.9 g/dL [facility] MCV (RBC) [Entitic vol] 86.3 fL 79.6 - 97.7 fL [facility] Platelet mean volume (Bld) [Entitic vol] 10.2 fL 8.5 - 12.2 fL [facility] Platelets (Bld) [#/Vol] 203 10*3/uL 150 - 393 K/uL [facility] RBC (Bld) [#/Vol] 3.66 10*6/uL Low [facility] WBC (Bld) [#/Vol] 6.15 10*3/uL 3.99 - 11. 19 K/uL [facility] CHEM 7 (LYTES,BUN,CREA,GLUC) on 04-21-2022 Anion gap [Moles/Vol] 12 mmol/L Normal 7-17 [facility] Comment on above: Performed By: #### C HM7 #### [facility] (DEFAULT) [address] [place] [address] 91637 Chloride [Moles/Vol] 107 mmol/L Normal 98-108 [facility] Comment on above: Performed By: #### C HM7 #### [facility] (DEFAULT) [address] [place] [address] 82228 CO2 [Moles/Vol] 25 mmol/L Normal 21-31 [facility] Comment on above: Performed By: #### C HM7 #### [facility] (DEFAULT) [address] [place] [address] 66373 Creatinine [Mass/Vol] 0.63 mg/dL Normal 0.50-1.20 [facility] Comment on above: Performed By: #### C HM7 #### [facility] (DEFAULT) [address] [place] [address] 29244 GFR/1.73 sq M.predicted among non-blacks MDRD (S/P/Bld) [Vol rate/Area] 86 mL/min/{1.73_m2} Normal >=60 [facility] Comment on above: Result Comment: Repo rted eGFR is based on the CKD-EPI 2020 equation using creatinine, age, and sex. Performed By: #### C HM7 #### [facility] (DEFAULT) [address] [place] [address] 76904 Glucose [Mass/Vol] 140 mg/dL High 70-99 [facility] Comment on above: Performed By: #### C HM7 #### [facility] (DEFAULT) [address] [place] [address] 08353 Osmolality [Osmolality] 299 mosm/kg Normal 278-305 [facility] Comment on above: Performed By: #### C HM7 #### [facility] (DEFAULT) [address] [place] [address] 63780 Potassium [Moles/Vol] 4.0 mmol/L Normal 3.5-5.0 [facility] Comment on above: Performed By: #### C HM7 #### [facility] (DEFAULT) [address] [place] [address] 01411 Sodium [Moles/Vol] 140 mmol/L Normal 135-145 [facility] Comment on above: Performed By: #### C HM7 #### [facility] (DEFAULT) [address] [place] [address] 13667 Urea nitrogen [Mass/Vol] 22 mg/dL Normal 7-25 [facility] Comment on above: Performed By: #### C HM7 #### [facility] (DEFAULT) [address] [place] [address] 71854 Urea nitrogen/Creatinine [Mass ratio] 35 mg/mg Normal [facility] Comment on above: Performed By: #### C HM7 #### [facility] (DEFAULT) [address] [place] [address] 54264 Anion gap [Moles/Vol] 12 mmol/L 7 - 17 mmol/L [facility] Chloride [Moles/Vol] 107 mmol/L 98 - 10 8 mmol/L [facility] CO2 [Moles/Vol] 25 mmol/L 21 - 31 mmol/L [facility] Creatinine [Mass/Vol] 0.63 mg/dL 0.50 - 1.20 mg/dL [facility] GFR/1.73 sq M.predicted CKD-EPI (S/P/Bld) [Vol rate/Area] 86 - PINF [facility] Comment on above: Reported eGFR is bas ed on the CKD-EPI 2020 equation using creatinine, age, and sex. Glucose [Mass/Vol] 140 mg/dL High 70 - 99 mg/dL [facility] Interpretation and review of laboratory results Abnormal [facility]olality] [facility] Potassium [Moles/Vol] 4.0 mmol/L 3.5 - 5.0 mmol/L [facility] Sodium [Moles/Vol] 140 mmol/L 135 - 145 mmol/L [facility] Urea nitrogen [Mass/Vol] 22 mg/dL 7 - 25 mg/dL [facility] Urea nitrogen/Creatinine [Mass ratio] 35 mg/mg [facility] CONTINUOUS CARDIAC MONITORIN G STRIPon 04-21-2022 [facility] GLUCOSE POCon 04-21-2022 Glucose [Mass/Vol] 121 mg/dL High 70 - 99 mg/dL [facility] Interpretation and review of laboratory results Abnormal [facility] POC Sample Type CAPBL [facility] Test performed at address of the patient encounter. [facility] Glucose [Mass/Vol] 119 mg/dL High 70 - 99 mg/dL [facility] Interpretation and review of laboratory results Abnormal [facility] POC Sample Type CAPBL [facility] Test performed at address of the patient encounter. [facility] Glucose [Mass/Vol] 177 mg/dL High 70 - 99 mg/dL [facility] Interpretation and review of laboratory results Abnormal [facility] POC Sample Type CAPBL [facility] Test performed at address of the patient encounter. [facility] Glucose [Mass/Vol] 147 mg/dL High 70 - 99 mg/dL [facility] Interpretation and review of laboratory results Abnormal [facility] POC Sample Type CAPBL [facility] Test performed at address of the patient encounter. [facility] HIGH SENSITIVITY TROPONIN I - SINGLE ORDERon 04-21-2022 hs-Troponin I 392 ng/L High <34 [facility] Comment on above: Order Comment: Acute Coronary Syndrome (ACS): Initial Evaluation and Management:[email or web address]/Documents/Guide lines/Acute%20Coronary%20Syndrome.pdf#search=troponin Result Comment: [place] estive of myocardial injury Performed By: #### C HM7 #### [facility] (DEFAULT) [address] [address] HIGH SENSITIVITY TROPONIN I - SINGLE ORDEROrdered By: Bob Montalvo on 04-21-2022 Interpretation and review of laboratory results Abnormal [facility] Troponin I.cardiac DL <= 0.01 ng/mL [Mass/Vol] 392 ng/L High NINF - 34 ng/L [facility] Comment on above: Suggestive of myocar dial injury [facility] METANEPHRINES, PLASMAon 03-31 METANEPHRINE, FREE, PLASMA <0.20 Normal <0.50 [facility] Comment on above: Result Comment: ADDITIONAL INFORMATION This test was developed and its performance characteristics determined by [facility] in a manner consistent with CLIA requirements. This test has not been cleared or approved by the U.S. Food and Drug Administration. Test Performed by: [facility] [place] [id number] [employer] Back Tender: Sha Goode M.D. Ph.D.; CLIA# [id number] Performed By: #### C HM6 #### [facility] (DEFAULT) [address] [place] [address] 78676 NORMETANEPHRINE, FREE 0.57 nmol/L Normal <0.90 [facility] Comment on above: Performed By: #### C HM6 #### [facility] (DEFAULT) [address] [address] B-TYPE NATRIURETIC PEPTIDE ( BRAIN)on 04-20-2022 Interpretation and review of laboratory results Abnormal [facility] Natriuretic peptide B (Bld) [Mass/Vol] 426 pg/mL High 0 - 100 pg/mL [facility] Natriuretic peptide B (Bld) [Mass/Vol] 426 pg/mL High 0-100 [facility] Comment on above: Performed By: #### S CRSB #### [facility] (DEFAULT) [address] [place] [address] 46228 CALCIUMon 04-20-2022 Calcium [Mass/Vol] 8.8 mg/dL Normal 8.6-10.5 [facility] Comment on above: Performed By: #### C HM7 #### [facility] (DEFAULT) [address] [place] [address] 83195 Calcium [Mass/Vol] 8.8 mg/dL 8.6 - 10. 5 mg/dL [facility] CBC AND ELECTRONIC DIFFon Abs Baso Auto < Normal 0.00-0.15 [facility] Comment on above: Performed By: #### L [id number] ####[facility] (DEFAULT)[address] [place] [address] 00977 Basophils/100 WBC (Bld) 0.5 % Normal [facility] Comment on above: Performed By: #### L [id number] ####[facility] (DEFAULT)[address] [place] [address] 26048 DIFF STATUS Electronic Differential Normal [facility] Comment on above: Performed By: #### L [id number] ####[facility] (DEFAULT)[address] [place] [address] 51056 Eosinophils (Bld) [#/Vol] 0.09 10*3/uL Normal 0.00-0.42 [facility] Comment on above: Performed By: #### L [id number] ####[facility] (DEFAULT)[address] [place] [address] 60169 Eosinophils/100 WBC (Bld) 1.4 % Normal [facility] Comment on above: Performed By: #### L [id number] ####[facility] (DEFAULT)[address] [place] [address] Hematocrit (Bld) [Volume fraction] 35.3 % Normal 34.9-44.3 [facility] Comment on above: Performed By: #### L [id number] ####[facility] (DEFAULT)[address] [place] [address] Hemoglobin (Bld) [Mass/Vol] 12.0 g/dL Normal 11.4-15.2 [facility] Comment on above: Performed By: #### L [id number] ####[facility] (DEFAULT)[address] [place] [address] Immature Grans % 0.5 % Normal [facility] Comment on above: Performed By: #### L [id number] ####[facility] (DEFAULT)[address] [place] [address] Immature Grans Absolute < Normal <=0.08 [facility] Comment on above: Performed By: #### L [id number] ####[facility] (DEFAULT)[address] [place] [address] Lymphocytes (Bld) [#/Vol] 1.17 10*3/uL Normal 1.16-3.51 [facility] Comment on above: Performed By: #### L [id number] ####[facility] (DEFAULT)[address] [place] [address] Lymphocytes/100 WBC (Bld) 17.9 % Normal [facility] Comment on above: Performed By: #### L [id number] ####[facility] (DEFAULT)[address] [place] [address] MCV (RBC) [Entitic vol] 85.3 fL Normal 79.6-97.7 [facility] Comment on above: Performed By: #### L [id number] ####[facility] (DEFAULT)[address] [place] [address] Mean Cell Hgb 29.0 pg Normal 25.9-33.9 [facility] Comment on above: Performed By: #### L [id number] ####[facility] (DEFAULT)[address] [place] [address], [place] [address] Mean Cell Hgb Conc 34.0 g/dL Normal 31.4-35.9 [facility] Comment on above: Performed By: #### L [id number] ####[facility] (DEFAULT)[address] [place] [address], [place] [address] Monocytes (Bld) [#/Vol] 0.70 10*3/uL Normal 0.22-0.87 [facility] Comment on above: Performed By: #### L [id number] ####[facility] (DEFAULT)[address] [place] [address], [place] [address] Monocytes/100 WBC (Bld) 10.7 % Normal [facility] Comment on above: Performed By: #### L [id number] ####[facility] (DEFAULT)[address] [place] [address], [place] [address] Nucleated RBC 0.0 /100 WBC Normal <=0.2 [facility] Comment on above: Performed By: #### L [id number] ####[facility] (DEFAULT)[address] [place] [address] Platelet mean volume (Bld) [Entitic vol] 10.0 fL Normal 8.5-12.2 [facility] Comment on above: Performed By: #### L [id number] ####[facility] (DEFAULT)[address] [place] [address], [place] [address] Platelets (Bld) [#/Vol] 202 10*3/uL Normal 150-393 [facility] Comment on above: Performed By: #### L [id number] ####[facility] (DEFAULT)[address] [place] [address] RBC (Bld) [#/Vol] 4.14 10*6/uL Normal 3.91-5.04 [facility] Comment on above: Performed By: #### L [id number] ####[facility] (DEFAULT)[address] [place] [address] RBC Distribution 13.2 % Normal 10.8-14.9 [facility] Comment on above: Performed By: #### L AB980 ####[facility] (DEFAULT)[address] [place] [address] Segs + Bands Auto 69.0 % Normal [facility] Comment on above: Performed By: #### L [id number] ####[facility] (DEFAULT)[address] [place] [address] Segs + Bands,Absolute Auto 4.50 K/uL Normal 1.64-7.28 [facility] Comment on above: Performed By: #### L [id number] ####[facility] (DEFAULT)[address] [place] [address] WBC (Bld) [#/Vol] 6.52 10*3/uL Normal 3.99-11.19 [facility] Comment on above: Performed By: #### L [id number] ####[facility] (DEFAULT)[address] [place] [address] Basophils (Bld) [#/Vol] K/uL 0.00 - 0.15 K/uL [facility] Basophils/100 WBC (Bld) 0.5 % [facility] Differential cell count method Nom (Bld) Electronic Differential [facility] Eosinophils (Bld) [#/Vol] 0.09 10*3/uL 0.00 - 0.42 K/uL [facility] Eosinophils/100 WBC (Bld) 1.4 % [facility] Erythrocyte distribution width (RBC) [Ratio] 13.2 % 10.8 - 14.9 % [facility] Hematocrit (Bld) [Volume fraction] 35.3 % 34.9 - 44.3 % [facility] Hemoglobin (Bld) [Mass/Vol] 12.0 g/dL 11.4 - 15.2 g/dL [facility] Immature granulocytes (Bld) [#/Vol] K/uL NINF - 0.08 K/uL [facility] Immature granulocytes/100 WBC (Bld) 0.5 % [facility] Lymphocytes (Bld) [#/Vol] 1.17 10*3/uL 1.16 - 3.51 K/uL [facility] Lymphocytes/100 WBC (Bld) 17.9 % [facility] MCH (RBC) [Entitic mass] 29.0 pg 25.9 - 33.9 pg [facility] MCHC (RBC) [Mass/Vol] 34.0 g/dL 31.4 - 35.9 g/dL [facility] MCV (RBC) [Entitic vol] 85.3 fL 79.6 - 97.7 fL [facility] Monocytes (Bld) [#/Vol] 0.70 10*3/uL 0.22 - 0.87 K/uL [facility] Monocytes/100 WBC (Bld) 10.7 % [facility] Neutrophils (Bld) [#/Vol] 4.50 10*3/uL 1.64 - 7.28 K/uL [facility] Nucleated RBC/100 WBC (Bld) [Ratio] 0.0 % [facility] Platelet mean volume (Bld) [Entitic vol] 10.0 fL 8.5 - 12.2 fL [facility] Platelets (Bld) [#/Vol] 202 10*3/uL 150 - 393 K/uL [facility] RBC (Bld) [#/Vol] 4.14 10*6/uL [facility] Segmented neutrophils/100 WBC (Bld) 69.0 % [facility] WBC (Bld) [#/Vol] 6.52 10*3/uL 3.99 - 11. 19 K/uL [facility] CHEM 7 (LYTES,BUN,CREA,GLUC) on 04-20-2022 Anion gap [Moles/Vol] 15 mmol/L Normal 7-17 [facility] Comment on above: Performed By: #### C HM7 #### [facility] (DEFAULT) [address] [place] [address] 10686 Chloride [Moles/Vol] 103 mmol/L Normal 98-108 [facility] Comment on above: Performed By: #### C HM7 #### [facility] (DEFAULT) [address] [place] [address] 90785 CO2 [Moles/Vol] 23 mmol/L Normal 21-31 [facility] Comment on above: Performed By: #### C HM7 #### [facility] (DEFAULT) [address] [place] [address] 8[address]20 Creatinine [Mass/Vol] 0.58 mg/dL Normal 0.50-1.20 [facility] Comment on above: Performed By: #### C HM7 #### [facility] (DEFAULT) [address] [place] [address] 33060 GFR/1.73 sq M.predicted among non-blacks MDRD (S/P/Bld) [Vol rate/Area] 88 mL/min/{1.73_m2} Normal >=60 [facility] Comment on above: Result Comment: Repo rted eGFR is based on the CKD-EPI 2020 equation using creatinine, age, and sex. Performed By: #### C HM7 #### [facility] (DEFAULT) [address] [place] [address] 22445 Glucose [Mass/Vol] 181 mg/dL High 70-99 [facility] Comment on above: Performed By: #### C HM7 #### [facility] (DEFAULT) [address] [place] [address] 08673 Osmolality [Osmolality] 293 mosm/kg Normal 278-305 [facility] Comment on above: Performed By: #### C HM7 #### [facility] (DEFAULT) [address] [place] [address] 41700 Potassium [Moles/Vol] 4.7 mmol/L Normal 3.5-5.0 [facility] Comment on above: Performed By: #### C HM7 #### [facility] (DEFAULT) [address] [place] [address] 62935 Sodium [Moles/Vol] 136 mmol/L Normal 135-145 [facility] Comment on above: Performed By: #### C HM7 #### [facility] (DEFAULT) [address] [place] [address] 49300 Urea nitrogen [Mass/Vol] 16 mg/dL Normal 7-25 [facility] Comment on above: Performed By: #### C HM7 #### [facility] (DEFAULT) [address] [place] [address] 64287 Urea nitrogen/Creatinine [Mass ratio] 28 mg/mg Normal [facility] Comment on above: Performed By: #### C HM7 #### [facility] (DEFAULT) [address] [place] [address] 61173 Anion gap [Moles/Vol] 15 mmol/L 7 - 17 mmol/L [facility] Chloride [Moles/Vol] 103 mmol/L 98 - 10 8 mmol/L [facility] CO2 [Moles/Vol] 23 mmol/L 21 - 31 mmol/L [facility] Creatinine [Mass/Vol] 0.58 mg/dL 0.50 - 1.20 mg/dL [facility] GFR/1.73 sq M.predicted CKD-EPI (S/P/Bld) [Vol rate/Area] 88 - PINF [facility] Comment on above: Reported eGFR is bas ed on the CKD-EPI 2020 equation using creatinine, age, and sex. Glucose [Mass/Vol] 181 mg/dL High 70 - 99 mg/dL [facility] Interpretation and review of laboratory results Abnormal [facility] Osmolality Calc [Osmolality] 293 [facility] Potassium [Moles/Vol] 4.7 mmol/L 3.5 - 5.0 mmol/L [facility] Sodium [Moles/Vol] 136 mmol/L 135 - 145 mmol/L [facility] Urea nitrogen [Mass/Vol] 16 mg/dL 7 - 25 mg/dL [facility] Urea nitrogen/Creatinine [Mass ratio] 28 mg/mg [facility] CONTINUOUS CARDIAC MONITORIN G STRIPon 04-20-2022 [facility] CONTINUOUS CARDIAC MONITORIN G STRIPOrdered By: Unassigned Pacs on 04-20-2022 [facility] Work Phone: GLUCOSE POCon 04-20-2022 Glucose [Mass/Vol] 207 mg/dL High 70 - 99 mg/dL [facility] Interpretation and review of laboratory results Abnormal [facility] POC Sample Type CAPBL [facility] Test performed at address of the patient encounter. [facility] Glucose [Mass/Vol] 237 mg/dL High 70 - 99 mg/dL [facility] Interpretation and review of laboratory results Abnormal [facility] POC Sample Type CAPBL [facility] Test performed at address of the patient encounter. [facility] Glucose [Mass/Vol] 134 mg/dL High 70 - 99 mg/dL [facility] Interpretation and review of laboratory results Abnormal [facility] POC Sample Type CAPBL [facility] Test performed at address of the patient encounter. [facility] Glucose [Mass/Vol] 220 mg/dL High 70 - 99 mg/dL [facility] Interpretation and review of laboratory results Abnormal [facility] POC Sample Type CAPBL [facility] Test performed at address of the patient encounter. [facility] Glucose [Mass/Vol] 134 mg/dL High 70 - 99 mg/dL [facility] Interpretation and review of laboratory results Abnormal [facility] POC Sample Type CAPBL [facility] Test performed at address of the patient encounter. [facility] HIGH SENSITIVITY TROPONIN I - SINGLE ORDERon 04-20-2022 hs-Troponin I 666 ng/L High <34 [facility] Comment on above: Order Comment: Acute Coronary Syndrome (ACS): Initial Evaluation and Management: [email or web address]/Guidelines/Acute %20Coronary%20Syndrome.pdf#search=troponin Result Comment: Sugg estive of myocardial injury Performed By: #### L [id number] #### [facility] (DEFAULT) [address] [place] [address] 40688 hs-Troponin I 547 ng/L High <34 [facility] Comment on above: Order Comment: Acute Coronary Syndrome (ACS): Initial Evaluation and Management: [email or web address]/Guidelines/Acute %20Coronary%20Syndrome.pdf#search=troponin Result Comment: Sugg estive of myocardial injury Performed By: #### L [id number] #### [facility] (DEFAULT) [address] [place] [address] 86680 hs-Troponin I 760 ng/L High <34 [facility] [facility] Comment on above: Order Comment: Acute Coronary Syndrome (ACS): Initial Evaluation and Management:[email or web address]/Guide [email or web address]%20Coronary%20Syndrome.pdf#search=troponin Result Comment: Sugg estive of myocardial injury Performed By: #### T YPEC #### [facility] (DEFAULT) [address] [place] [address] hs-Troponin I 638 ng/L High <34 [facility] Comment on above: Order Comment: Acute Coronary Syndrome (ACS): Initial Evaluation and Management:[email or web address]/Guide lines/Acute%20Coronary%20Syndrome.pdf#search=troponin Result Comment: Sugg estive of myocardial injury Performed By: #### X M #### [facility] (DEFAULT) [address] [place] [address] HIGH SENSITIVITY TROPONIN I - SINGLE ORDEROrdered By: Christie Arndt on 04-20-2022 Interpretation and review of laboratory results Abnormal [facility] Troponin I.cardiac DL <= 0.01 ng/mL [Mass/Vol] 666 ng/L High NINF - 34 ng/L [facility] Comment on above: Suggestive of myocar dial injury [facility] HIGH SENSITIVITY TROPONIN I - SINGLE ORDEROrdered By: Liliya Andujar on 04-20-2022 Interpretation and review of laboratory results Abnormal [facility] Troponin I.cardiac DL <= 0.01 ng/mL [Mass/Vol] 547 ng/L High NINF - 34 ng/L [facility] Comment on above: Suggestive of myocar dial injury [facility] HIGH SENSITIVITY TROPONIN I - SINGLE ORDEROrdered By: Patricia Trotter on 04-20-2022 Interpretation and review of laboratory results Abnormal [facility] Troponin I.cardiac DL <= 0.01 ng/mL [Mass/Vol] 760 ng/L High NINF - 34 ng/L [facility] Comment on above: Suggestive of myocar dial injury [facility] HIGH SENSITIVITY TROPONIN I - SINGLE ORDEROrdered By: Tamica Alarcon on 04-20-2022 Interpretation and review of laboratory results Abnormal [facility] Troponin I.cardiac DL <= 0.01 ng/mL [Mass/Vol] 638 ng/L High NINF - 34 ng/L [facility] Comment on above: Suggestive of myocar dial injury [facility] MAGNESIUMon 04-20-2022 Magnesium [Mass/Vol] 1.8 mg/dL Normal 1.6-2.6 [facility] Comment on above: Performed By: #### C HM7 #### [facility] (DEFAULT) [address] [place] [address] Magnesium [Mass/Vol] 1.8 mg/dL 1.6 - 2 .6 mg/dL [facility] No Panel Informationon 04-20 [facility] Interpretation and review of laboratory results Normal [facility] No Panel InformationOrdered By: Dr. Curry on 04-20-2022 Troponin I High Sensitivity 298 pg/mL 3.0-54.0 [facility] Comment on above: Critical Result(s) C alled at: 00:59:39 04/20/2022 by: CLYDE DAVISON to JESSICA MACIEL. Results read back by same. Please Note: New Test Units and Gender Specific Reference Ranges. For more information see Policy Stat Procedure [place] High Sensitivity Troponin (TNIH) and attachments. PLATELET COUNTon 04-20-2022 Platelet mean volume (Bld) [Entitic vol] 10.1 fL Normal 8.5-12.2 [facility] Comment on above: Performed By: #### L ABHSTI1 #### [facility] (DEFAULT) [address] [address] Platelets (Bld) [#/Vol] 201 10*3/uL Normal 150-393 [facility] Comment on above: Performed By: #### L ABHSTI1 #### [facility] (DEFAULT) [address] [place] [address] Interpretation and review of laboratory results Normal [facility] Platelet mean volume (Bld) [Entitic vol] 10.1 fL 8.5 - 12.2 fL [facility] Platelets (Bld) [#/Vol] 201 10*3/uL 150 - 393 K/uL [facility] Absolute lymphocyte countOrd ered By: Dr. Curry on 04-19-2022 Lymphocytes Auto (Unsp spec) [#/Vol] 0.72 10*3/uL 0.83-4.51 [facility] Assessment of wrist artery p atency prior to arterial punctureOrdered By: Dr. Curry on 04-19-2022 Arterial patency Wrist artery --pre arterial puncture Positive [facility] BASIC METABOLIC PANELon 03-31 Anion gap [Moles/Vol] 12 mmol/L Normal 7-17 [place] [facility] Comment on above: Performed By: #### C HM7 #### [facility] (DEFAULT) [address] [place] [address] Calcium [Mass/Vol] 8.6 mg/dL Normal 8.6-10.5 [facility] Comment on above: Performed By: #### C HM7 #### [facility] (DEFAULT) [address] [place] [address] Chloride [Moles/Vol] 103 mmol/L Normal 98-108 [facility] Comment on above: Performed By: #### C HM7 #### [facility] (DEFAULT) [address] [place] [address] CO2 [Moles/Vol] 24 mmol/L Normal 21-31 [facility] Comment on above: Performed By: #### C HM7 #### [facility] (DEFAULT) [address] [place] [address] Creatinine [Mass/Vol] 0.55 mg/dL Normal 0.50-1.20 [facility] Comment on above: Performed By: #### C HM7 #### [facility] (DEFAULT) [address] [address] GFR/1.73 sq M.predicted among non-blacks MDRD (S/P/Bld) [Vol rate/Area] 89 mL/min/{1.73_m2} Normal >=60 [facility] Comment on above: Result Comment: Repo rted eGFR is based on the CKD-EPI 2020 equation using creatinine, age, and sex. Performed By: #### C HM7 #### [facility] (DEFAULT) [address] [place] [address] Glucose [Mass/Vol] 165 mg/dL High 70-99 [facility] Comment on above: Performed By: #### C HM7 #### [facility] (DEFAULT) [address] [address] Osmolality [Osmolality] 288 mosm/kg Normal 278-305 [facility] Comment on above: Performed By: #### C HM7 #### [facility] (DEFAULT) [address] [place] [address] Potassium [Moles/Vol] 4.0 mmol/L Normal 3.5-5.0 [facility] Comment on above: Performed By: #### C HM7 #### [facility] (DEFAULT) [address] [place] [address] Sodium [Moles/Vol] 135 mmol/L Normal 135-145 [facility] Comment on above: Performed By: #### C HM7 #### [facility] (DEFAULT) [address] [place] [address] Urea nitrogen [Mass/Vol] 15 mg/dL Normal 7-25 [facility] Comment on above: Performed By: #### C HM7 #### [facility] (DEFAULT) [address] [place] [address] Urea nitrogen/Creatinine [Mass ratio] 27 mg/mg Normal [facility] Comment on above: Performed By: #### C HM7 #### [facility] (DEFAULT) [address] [place] [address] Base excessOrdered By: Dr. John coronel on 04-19-2022 Base excess Calc (BldV) [Moles/Vol] -2 mmol/L -2-2 [facility] Basophil percentageOrdered B y: Dr. Curry on 04-19-2022 Basophils/100 WBC (Bld) 0.4 % 0-1 [facility] Eosinophils/100 WBC (Bld) 2.4 % 0-5 [facility] Neutrophils (Bld) [#/Vol] 5.3 10*3/uL 2.0-7.7 [facility] Neutrophils/100 WBC (Bld) 78.6 % 47-70 [facility] WBC (Bld) [#/Vol] 6.8 10*3/uL 4.4-11.0 [facility] Basophil percentage 23.3 mmol/L 22-26 [facility] Basophils/100 WBC (Bld) 93 % 95-99 [facility] Chloride [Moles/Vol] 103 mmol/L 98-107 [facility] Glucose [Mass/Vol] 321 mg/dL 74-106 [facility] Comment on above: Glucose result great er than or equal to 200 mg/dLsuggests DIABETES MELLITUS per A.D.A. criteria. Potassium [Moles/Vol] 5.5 mmol/L 3.5-5.1 [facility] Comment on above: Slight Hemolysis, Re sult may be falsely increased. Sodium [Moles/Vol] 134 mmol/L 136-145 [facility] Blood erythrocytes count (nu mber/volume)Ordered By: Dr. Curry on 04-19-2022 RBC (Bld) [#/Vol] 4.32 10*6/uL 4.2-5.4 [facility] Blood hemoglobin measurement (mass/volume)Ordered By: Dr. Curry on 04-19-2022 Hemoglobin (Bld) [Mass/Vol] 12.5 g/dL 12.0-15.0 [facility] Blood lymphocytes/100 leukoc ytesOrdered By: Dr. Curry on 04-19-2022 Lymphocytes/100 WBC (Bld) 10.6 % 19-41 [facility] Blood monocytes/100 leukocyt esOrdered By: Dr. Curry on 04-19-2022 Monocytes/100 WBC (Bld) 7.7 % 0-10 [facility] Blood platelet mean volumeOr dered By: Dr. Curry on 04-19-2022 Platelet mean volume (Bld) [Entitic vol] 9.9 fL 6.2-12.0 [facility] CBC,PLATELETSon 04-19-2022 Hematocrit (Bld) [Volume fraction] 32.0 % Low 34.9-44.3 [facility] Comment on above: Performed By: #### X M #### [facility] (DEFAULT) [address] [address] Hemoglobin (Bld) [Mass/Vol] 10.5 g/dL Low 11.4-15.2 [facility] Comment on above: Performed By: #### X M #### [facility] (DEFAULT) [address] [address] MCV (RBC) [Entitic vol] 86.5 fL Normal 79.6-97.7 [facility] Comment on above: Performed By: #### X M #### [facility] (DEFAULT) [address] [address] Mean Cell Hgb 28.4 pg Normal 25.9-33.9 [facility] Comment on above: Performed By: #### X M #### [facility] (DEFAULT) [address] [address] Mean Cell Hgb Conc 32.8 g/dL Normal 31.4-35.9 [facility] Comment on above: Performed By: #### X M #### [facility] (DEFAULT) [address] [address] Platelet mean volume (Bld) [Entitic vol] 10.3 fL Normal 8.5-12.2 [facility] Comment on above: Performed By: #### X M #### [facility] (DEFAULT) [address] [address] Platelets (Bld) [#/Vol] 184 10*3/uL Normal 150-393 [facility] Comment on above: Performed By: #### X M #### [facility] (DEFAULT) [address] [address] RBC (Bld) [#/Vol] 3.70 10*6/uL Low 3.91-5.04 [facility] Comment on above: Performed By: #### X M #### [facility] (DEFAULT) [address] [address] RBC Distribution 13.5 % Normal 10.8-14.9 [facility] Comment on above: Performed By: #### X M #### [facility] (DEFAULT) [address] [address] WBC (Bld) [#/Vol] 5.56 10*3/uL Normal 3.99-11.19 [facility] Comment on above: Performed By: #### X M #### [facility] ([facility]) [address] [place] [address] CO2 (BldA) [Partial pressure ]Ordered By: Dr. Curry on 04-19-2022 CO2 (Bld) [Partial pressure] 41.2 mm[Hg] 35-45 [facility] COVID-19 virus antigen assay Ordered By: Dr. Curry on 04-19-2022 SARS-CoV-2 (COVID-19) Ag IA.rapid Ql (Resp) [facility] Determination of erythrocyte mean corpuscular volume (MCV)Ordered By: Dr. Curry on 04-19-2022 MCV (RBC) [Entitic vol] 87.7 fL 81-99 [facility] Hematocrit Auto (Bld) [Volum e fraction]Ordered By: Dr. Curry on 04-19-2022 Hematocrit (Bld) [Volume fraction] 37.9 % 37-47 [facility] INR in Blood by Coagulation assayOrdered By: Dr. Curry on 04-19-2022 INR Coag (Bld) [Relative time] 1.0 {INR} [facility] Laboratory - Chemistry and C hemistry - challengeOrdered By: Dr. Curry on 04-19-2022 Natriuretic peptide B (Bld) [Mass/Vol] 351.1 pg/mL 0-100 [facility] CO2 [Moles/Vol] 25.0 mmol/L 21.0-32.0 [facility] Urea nitrogen/Creatinine [Mass ratio] 21.2 mg/mg 10-20 [facility] Laboratory - CoagulationOrde red By: Dr. Curry on 04-19-2022 aPTT Coag (Bld) [Time] 28.9 s 24.1-36.2 [facility] PT Coag (PPP) [Time] 13.2 s 11.7-14.9 [facility] Laboratory - Hematology and Cell countsOrdered By: Dr. Curry on 04-19-2022 Erythrocyte distribution width (RBC) [Entitic vol] 42.7 fL 35.1-43.9 [facility] Erythrocyte distribution width (RBC) [Ratio] 13.2 % 11.6-14.6 [facility] Immature granulocytes/100 WBC (Bld) 0.300 % 0.0-0.9 [facility] Comment on above: IG% - Immature Granu locytes (promyelocytes, myelocytes and metamyelocytes) > 1% indicates that a LEFT SHIFT is Present. MCH (RBC) [Entitic mass] 28.9 pg 27.0-32.0 [facility] Nucleated RBC/100 WBC (Bld) [Ratio] 0 % 0-5 [facility] MCHC Auto (RBC) [Mass/Vol]Or dered By: Dr. Curry on 04-19-2022 MCHC (RBC) [Mass/Vol] 33.0 g/dL 32-36 [facility] No Panel InformationOrdered By: Dr. Curry on 04-19-2022 Blood Gas Clinical Comments 18. 8. [facility] Blood Gas Oxygen Percent 40 [facility] Blood Gas Respiration Rate 12 [facility] Blood Gas Sample Site R Radial [facility] Blood Gas Specimen Type ART [facility] Blood Gas Total CO2 25 mmol/L [facility] Oxygen Delivery Device BiPAP [facility] Estimated Creatinine Clearance Calc 41.23 ml/min [facility] Estimated GFR (MDRD) Amer 93 mL/min >60 [facility] Comment on above: GFR Calc Estimated GFR (MDRD) Non-Af Amer 77 mL/min >60 [facility] Comment on above: Non- GFR Calc Oxygen (BldA) [Partial press ure]Ordered By: Dr. Curry on 04-19-2022 Oxygen (Bld) [Partial pressure] 71 mmHG 75-100 [facility] Platelets bldOrdered By: Dr. Curry on 04-19-2022 Platelets (Bld) [#/Vol] 203 10*3/uL 150-450 [facility] Serum or plasma calcium neris urement (mass/volume)Ordered By: Dr. Curry on 04-19-2022 Calcium [Mass/Vol] 9.0 mg/dL 8.5-10.1 [facility] Serum or plasma creatinine m easurement (mass/volume)Ordered By: Dr. Curry on 04-19-2022 Creatinine [Mass/Vol] 0.76 mg/dL 0.55-1.02 [facility] Comment on above: The validity of the calculated GFR & GFRAA in patients over 70 years has not been determined. Clinical correlation is essential. Serum or plasma urea nitroge n measurement (mass/volume)Ordered By: Dr. Curry on 04-19-2022 Urea nitrogen [Mass/Vol] 16 mg/dL 7-18 [facility] Thin prep Papanicolaou smear with manual screeningOrdered By: Dr. Curry on 04-19-2022 Thin prep Papanicolaou smear with manual screening 6 5-15 [facility] pH measurementOrdered By: Dr Shekhar Curry on 04-19-2022 pH (Unsp spec) 7.36 [pH] 7.35-7.45 [facility] CBC,PLATELETSon 04-18-2022 Hematocrit (Bld) [Volume fraction] 32.8 % Low 34.9-44.3 [facility] Comment on above: Performed By: #### H EMO ####[facility] (DEFAULT)[address] [place] [address], [place] [address] Hemoglobin (Bld) [Mass/Vol] 11.1 g/dL Low 11.4-15.2 [facility] Comment on above: Performed By: #### H EMO ####[facility] (DEFAULT)[address] [place] [address] MCV (RBC) [Entitic vol] 85.6 fL Normal 79.6-97.7 [facility] Comment on above: Performed By: #### H EMO ####[facility] (DEFAULT)[address] [place] [address] Mean Cell Hgb 29.0 pg Normal 25.9-33.9 [facility] Comment on above: Performed By: #### H EMO ####[facility] (DEFAULT)[address] [place] [address] Mean Cell Hgb Conc 33.8 g/dL Normal 31.4-35.9 [facility] Comment on above: Performed By: #### H EMO ####[facility] (DEFAULT)[address] [place] [address] Platelet mean volume (Bld) [Entitic vol] 9.6 fL Normal 8.5-12.2 [facility] Comment on above: Performed By: #### H EMO ####[facility] (DEFAULT)[address] [facility] [place] [address] Platelets (Bld) [#/Vol] 192 10*3/uL Normal 150-393 [facility] Comment on above: Performed By: #### H EMO ####[facility] (DEFAULT)[address] [place] [address] RBC (Bld) [#/Vol] 3.83 10*6/uL Low 3.91-5.04 [facility] Comment on above: Performed By: #### H EMO ####[facility] (DEFAULT)[address] [facility] [place] [address] RBC Distribution 13.4 % Normal 10.8-14.9 [facility] Comment on above: Performed By: #### H EMO ####[facility] (DEFAULT)[address] [place] [address] WBC (Bld) [#/Vol] 7.42 10*3/uL Normal 3.99-11.19 [facility] Comment on above: Performed By: #### H EMOGC ####[facility] (DEFAULT)[address] [place] [address] CHEM 7 (LYTES,BUN,CREA,GLUC) on 04-18-2022 Anion gap [Moles/Vol] 12 mmol/L Normal 7-17 [facility] Comment on above: Performed By: #### C HM7, MGO ####[facility] (DEFAULT)[address] [facility] [place] [address] Chloride [Moles/Vol] 106 mmol/L Normal 98-108 [facility] Comment on above: Performed By: #### C HM7, MGO ####[facility] (DEFAULT)[address] [place] [address] CO2 [Moles/Vol] 24 mmol/L Normal 21-31 [facility] Comment on above: Performed By: #### Nancy MAO7, MGO ####[facility] (DEFAULT)[address] [facility] [place] [address] Creatinine [Mass/Vol] 0.57 mg/dL Normal 0.50-1.20 [facility] Comment on above: Performed By: #### Nancy MAO7, MGO ####[facility] (DEFAULT)[address] [place] [address], [place] [address] GFR/1.73 sq M.predicted among non-blacks MDRD (S/P/Bld) [Vol rate/Area] 88 mL/min/{1.73_m2} Normal >=60 [facility] Comment on above: Result Comment: Repo rted eGFR is based on the CKD-EPI 2020 equation using creatinine, age, and sex. Performed By: #### Nancy WOOD, MGO ####[facility] (DEFAULT)[address] [place] [address] Glucose [Mass/Vol] 136 mg/dL High 70-99 [facility] Comment on above: Performed By: #### Nancy MAO7, MGO ####[facility] (DEFAULT)[address] [place] [address] Osmolality [Osmolality] 294 mosm/kg Normal 278-305 [facility] Comment on above: Performed By: #### Nancy HM7, MGO ####[facility] (DEFAULT)[address] [place] [address] Potassium [Moles/Vol] 4.4 mmol/L Normal 3.5-5.0 [facility] Comment on above: Performed By: #### Nancy HM7, MGO ####[facility] (DEFAULT)[address] [facility] [place] [address] Sodium [Moles/Vol] 138 mmol/L Normal 135-145 [facility] Comment on above: Performed By: #### C HM7, MGO ####[facility] (DEFAULT)[address] [place] [address] Urea nitrogen [Mass/Vol] 17 mg/dL Normal - [facility] Comment on above: Performed By: #### C HM7, MGO ####[facility] (DEFAULT)[address] [place] [address] Urea nitrogen/Creatinine [Mass ratio] 30 mg/mg Normal [facility] Comment on above: Performed By: #### C HM7, MGO ####[facility] (DEFAULT)[address] [place] [address] CT ANGIO TAVR EVALUATION - C ARDIOLOGYon 04-18-2022 CT ANGIO TAVR EVALUATION - CARDIOLOGY [facility] CT Report Name: FINESSE PRATHER : 1935 [...] Diameter ? (more content not included)... Normal [facility] MAGNESIUMon 04-18-2022 Magnesium [Mass/Vol] 1.9 mg/dL Normal 1.6-2.6 [facility] Comment on above: Performed By: #### C HM7, MGO ####[facility] (DEFAULT)[address] [address] B-TYPE NATRIURETIC PEPTIDE ( BRAIN)on 04-17-2022 Natriuretic peptide B (Bld) [Mass/Vol] 553 pg/mL High 0-100 [facility] Comment on above: Performed By: #### C HM7 #### [facility] (DEFAULT) [address] [place] [address] CALCIUMon 04-17-2022 Calcium [Mass/Vol] 8.9 mg/dL Normal 8.6-10.5 [facility] Comment on above: Performed By: #### C HM6 #### [facility] (DEFAULT) [address] [place] [address] CBC,PLATELETSon 04-17-2022 Hematocrit (Bld) [Volume fraction] 34.8 % Low 34.9-44.3 [facility] Comment on above: Performed By: #### C HM6 #### [facility] (DEFAULT) [address] [place] [address] Hemoglobin (Bld) [Mass/Vol] 11.7 g/dL Normal 11.4-15.2 [facility] Comment on above: Performed By: #### C HM6 #### [facility] (DEFAULT) [address] [address] MCV (RBC) [Entitic vol] 87.2 fL Normal 79.6-97.7 [facility] Comment on above: Performed By: #### C HM6 #### [facility] (DEFAULT) [address] [address] Mean Cell Hgb 29.3 pg Normal 25.9-33.9 [facility] Comment on above: Performed By: #### C HM6 #### [facility] (DEFAULT) [address] [address] Mean Cell Hgb Conc 33.6 g/dL Normal 31.4-35.9 [facility] Comment on above: Performed By: #### C HM6 #### [facility] (DEFAULT) [address] [address] Platelet mean volume (Bld) [Entitic vol] 10.0 fL Normal 8.5-12.2 [facility] Comment on above: Performed By: #### C HM6 #### [facility] (DEFAULT) [address] [address] Platelets (Bld) [#/Vol] 229 10*3/uL Normal 150-393 [facility] Comment on above: Performed By: #### C HM6 #### [facility] (DEFAULT) [address] [address] RBC (Bld) [#/Vol] 3.99 10*6/uL Normal 3.91-5.04 [facility] Comment on above: Performed By: #### C HM6 #### [facility] (DEFAULT) [address] [address] RBC Distribution 13.4 % Normal 10.8-14.9 [facility] Comment on above: Performed By: #### C HM6 #### [facility] (DEFAULT) [address] [place] [address] WBC (Bld) [#/Vol] 8.38 10*3/uL Normal 3.99-11.19 [facility] Comment on above: Performed By: #### C HM6 #### [facility] (DEFAULT) [address] [place] [address] CHEM 7 (LYTES,BUN,CREA,GLUC) on 04-17-2022 Anion gap [Moles/Vol] 14 mmol/L Normal 7-17 [facility] Comment on above: Performed By: #### T YPEC #### [facility] (DEFAULT) [address] [place] [address] Chloride [Moles/Vol] 105 mmol/L Normal 98-108 [facility] Comment on above: Performed By: #### T YPEC #### [facility] (DEFAULT) [address] [place] [address] CO2 [Moles/Vol] 24 mmol/L Normal 21-31 [facility] Comment on above: Performed By: #### T YPEC #### [facility] (DEFAULT) [address] [address] Creatinine [Mass/Vol] 0.52 mg/dL Normal 0.50-1.20 [facility] Comment on above: Performed By: #### T YPEC #### [facility] (DEFAULT) [address] [address] GFR/1.73 sq M.predicted among non-blacks MDRD (S/P/Bld) [Vol rate/Area] 90 mL/min/{1.73_m2} Normal >=60 [facility] Comment on above: Result Comment: Repo rted eGFR is based on the CKD-EPI 2020 equation using creatinine, age, and sex. Performed By: #### T YPEC #### [facility] (DEFAULT) [address] [place] [address]68 Glucose [Mass/Vol] 91 mg/dL Normal 70-99 [facility] Comment on above: Performed By: #### T YPEC #### [facility] (DEFAULT) [address] [place] [address] 19559 Osmolality [Osmolality] 292 mosm/kg Normal 278-305 [facility] Comment on above: Performed By: #### T YPEC #### [facility] (DEFAULT) [address] [place] [address] 70734 Potassium [Moles/Vol] 4.0 mmol/L Normal 3.5-5.0 [facility] Comment on above: Performed By: #### T YPEC #### [facility] (DEFAULT) [address] [place] [address] 18786 Sodium [Moles/Vol] 139 mmol/L Normal 135-145 [facility] Comment on above: Performed By: #### T YPEC #### [facility] (DEFAULT) [address] [place] [address] 23015 Urea nitrogen [Mass/Vol] 16 mg/dL Normal 7-25 [facility] Comment on above: Performed By: #### T YPEC #### [facility] (DEFAULT) [address] [address] Urea nitrogen/Creatinine [Mass ratio] 31 mg/mg Normal [facility] Comment on above: Performed By: #### T YPEC #### [facility] (DEFAULT) [address] [place] [address] 28209 HEPATIC FUNCTION PANELon Albumin [Mass/Vol] 3.6 g/dL Normal 3.5-5.0 [facility] Comment on above: Performed By: #### T YPEC #### [facility] (DEFAULT) [address] [address] ALP [Catalytic activity/Vol] 93 U/L Normal 32-126 [facility] Comment on above: Performed By: #### T YPEC #### [facility] (DEFAULT) [address] [place] [address] 71594 ALT [Catalytic activity/Vol] 55 U/L High 9-48 [facility] Comment on above: Performed By: #### T YPEC #### [facility] (DEFAULT) [address] [place] [address] 34552 AST [Catalytic activity/Vol] 42 U/L High 10-39 [facility] Comment on above: Performed By: #### T YPEC #### [facility] (DEFAULT) [address] [address] Bilirubin [Mass/Vol] 1.0 mg/dL Normal <1.5 [facility] Comment on above: Performed By: #### T YPEC #### [facility] (DEFAULT) [address] [address] Bilirubin.indirect [Mass/Vol] 0.1 mg/dL Normal <0.3 [facility] Comment on above: Performed By: #### T YPEC #### [facility] (DEFAULT) [address] [address] Protein [Mass/Vol] 6.0 g/dL Low 6.4-8.3 [facility] Comment on above: Performed By: #### T YPEC #### [facility] (DEFAULT) [address] [address] LIPID PANEL W CALCULATED LDL on 04-17-2022 Calculated LDL Cholesterol 172 mg/dL High 0-99 [facility] Comment on above: Result Comment: [<10 0 mg/dL: Optimal] [100-129 mg/dL: Near Optimal] [130-159 mg/dL: Borderline High] [160-189 mg/dL: High] [>189 mg/dL: Very High] Performed By: #### T YPEC #### [facility] (DEFAULT) [address] [address] Cholesterol [Mass/Vol] 242 mg/dL High <200 [facility] Comment on above: Result Comment: [<20 0 mg/dL: Desirable] [200-239 mg/dL: Borderline High] [>239 mg/dL: High] Performed By: #### T YPEC #### [facility] (DEFAULT) [address] [place] [address] Cholesterol in HDL [Mass/Vol] 48 mg/dL Normal >=40 [facility] Comment on above: Result Comment: [<40 mg/dL: Low (High Risk)] [>59 mg/dL: High (Low Risk)] Performed By: #### T YPEC #### [facility] (DEFAULT) [address] [place] [address] Non HDL Cholesterol 194 mg/dL High <130 [facility] Comment on above: Performed By: #### T YPEC #### [facility] (DEFAULT) [address] [address] Total Cholesterol/HDL Ratio 5.0 High <4.5 [facility] Comment on above: Performed By: #### T YPEC #### [facility] (DEFAULT) [address] [place] [address]75 Triglyceride [Mass/Vol] 112 mg/dL Normal <150 [facility] Comment on above: Result Comment: [<15 0 mg/dL: Desirable] [150-199 mg/dL: Borderline] [200-499 mg/dL: High] [>500 mg/dL: Very High] Performed By: #### T YPEC #### [facility] (DEFAULT) [address] [address] MAGNESIUMon 04-17-2022 Magnesium [Mass/Vol] 1.8 mg/dL Normal 1.6-2.6 [facility] Comment on above: Performed By: #### T YPEC #### [facility] (DEFAULT) [address] [address] XR CHEST PORTABLEon 04-17-19 XR CHEST PORTABLE [...] and mild interstitial pulmonary edema. Cardiomegaly. Normal [facility] Absolute lymphocyte countOrd ered By: Dr. Boland on 04-16-2022 Lymphocytes Auto (Unsp spec) [#/Vol] 2.82 10*3/uL 0.83-4.51 [facility] Basophil percentageOrdered B y: Dr. Boland on 04-16-2022 Basophils/100 WBC (Bld) 0.6 % 0-1 [facility] Chloride [Moles/Vol] 106 mmol/L 98-107 [facility] Eosinophils/100 WBC (Bld) 3.7 % 0-5 [facility] Glucose [Mass/Vol] 279 mg/dL 74-106 [facility] Comment on above: Glucose result great er than or equal to 200 mg/dLsuggests DIABETES MELLITUS per A.D.A. criteria. Neutrophils (Bld) [#/Vol] 8.1 10*3/uL 2.0-7.7 [facility] Neutrophils/100 WBC (Bld) 65.8 % 47-70 [facility] Potassium [Moles/Vol] 4.3 mmol/L 3.5-5.1 [facility] Comment on above: Slight Hemolysis, Re sult may be falsely increased. Sodium [Moles/Vol] 137 mmol/L 136-145 [facility] WBC (Bld) [#/Vol] 12.3 10*3/uL 4.4-11.0 [facility] Blood erythrocytes count (nu mber/volume)Ordered By: Dr. Boland on 04-16-2022 RBC (Bld) [#/Vol] 4.33 10*6/uL 4.2-5.4 [facility] Blood hemoglobin measurement (mass/volume)Ordered By: Dr. Boland on 04-16-2022 Hemoglobin (Bld) [Mass/Vol] 12.5 g/dL 12.0-15.0 [facility] Blood lymphocytes/100 leukoc ytesOrdered By: Dr. Boland on 04-16-2022 Lymphocytes/100 WBC (Bld) 23.0 % 19-41 [facility] Blood monocytes/100 leukocyt esOrdered By: Dr. Boland on 04-16-2022 Monocytes/100 WBC (Bld) 6.2 % 0-10 [facility] Blood platelet mean volumeOr dered By: Dr. Boland on 04-16-2022 Platelet mean volume (Bld) [Entitic vol] 9.9 fL 6.2-12.0 [facility] Determination of erythrocyte mean corpuscular volume (MCV)Ordered By: Dr. Boland on 04-16-2022 MCV (RBC) [Entitic vol] 88.9 fL 81-99 [facility] Hematocrit Auto (Bld) [Volum e fraction]Ordered By: Dr. Boland on 04-16-2022 Hematocrit (Bld) [Volume fraction] 38.5 % 37-47 [facility] Influenza virus A and B and SARS-CoV-2 (COVID-19) Ag panel - Upper respiratory specimOrdered By: Dr. Boland on 04-16-2022 SARS-CoV-2 (COVID-19) RNA NICHOLAS+probe Ql (Resp) [facility] Laboratory - Chemistry and C hemistry - challengeOrdered By: Dr. Boland on 04-16-2022 CO2 [Moles/Vol] 24.0 mmol/L 21.0-32.0 [facility] Natriuretic peptide B (Bld) [Mass/Vol] 616.1 pg/mL 0-100 [facility] Urea nitrogen/Creatinine [Mass ratio] 30.3 mg/mg 10-20 [facility] - Hematology and Cell countsOrdered By: Dr. Boland on 04-16-2022 Erythrocyte distribution width (RBC) [Entitic vol] 44.0 fL 35.1-43.9 [facility] Erythrocyte distribution width (RBC) [Ratio] 13.4 % 11.6-14.6 [facility] Immature granulocytes/100 WBC (Bld) 0.700 % 0.0-0.9 [facility] Comment on above: IG% - Immature Granu locytes (promyelocytes, myelocytes and metamyelocytes) > 1% indicates that a LEFT SHIFT is Present. MCH (RBC) [Entitic mass] 28.9 pg 27.0-32.0 [facility] Nucleated RBC/100 WBC (Bld) [Ratio] 0 % 0-5 [facility] MCHC Auto (RBC) [Mass/Vol]Or dered By: Dr. Boland on 04-16-2022 MCHC (RBC) [Mass/Vol] 32.5 g/dL 32-36 [facility] No Panel InformationOrdered By: Dr. Boland on 04-16-2022 Estimated Creatinine Clearance Calc 28.47 ml/min [facility] Estimated GFR (MDRD) Amer 109 mL/min >60 [facility] Comment on above: GFR Calc Estimated GFR (MDRD) Non-Af Amer 90 mL/min >60 [facility] Comment on above: Non- GFR Calc Troponin I High Sensitivity 33 pg/mL 3.0-54.0 [facility] Comment on above: Please Note: New Avril t Units and Gender Specific Reference Ranges. For more information see Policy Stat Procedure [place] High Sensitivity Troponin (TNIH) and attachments. Platelets bldOrdered By: Dr. Boland on 04-16-2022 Platelets (Bld) [#/Vol] 305 10*3/uL 150-450 [facility] Serum or plasma calcium neris urement (mass/volume)Ordered By: Dr. Boland on 04-16-2022 Calcium [Mass/Vol] 8.6 mg/dL 8.5-10.1 [facility] Serum or plasma creatinine m easurement (mass/volume)Ordered By: Dr. Boland on 04-16-2022 Creatinine [Mass/Vol] 0.66 mg/dL 0.55-1.02 [facility] Comment on above: The validity of the calculated GFR & GFRAA in patients over 70 years has not been determined. Clinical correlation is essential. Serum or plasma urea nitroge n measurement (mass/volume)Ordered By: Dr. Boland on 04-16-2022 Urea nitrogen [Mass/Vol] 20 mg/dL - [facility] Thin prep Papanicolaou smear with manual screeningOrdered By: Dr. Boland on 04-16-2022 Thin prep Papanicolaou smear with manual screening 7 5-15 [facility] INVASIVE CARDIOVASCULAR PROC [place]on 04-07-2022 INVASIVE [...] predilated the mid vessel lesion with a 2.28s91kh compliant balloon, then stented with a 3.0x28mm HIRAL with good results. Table formatting from the original result was not included. Images from the original result were not included. Finesse Ramirez Natalia Invasive Cardiology Cath Procedure Ordering Physician: [facility] Order #: [id number] Study Date: 04/04/2022 Patient Information Name MRN Description Finesse Prather [id number] y.o. female Location Name Address [facility] [address] [place] [id number] Physicians Panel Physicians Referring Physician Case Authorizing Physician Crsielda Bacon MD (Primary) Farouk Belal, MD Jacobo Lopez MD (Fellow) Tito Holguin MD (Fellow) CC Referring Recipient Method Contact Information [facility] MD In Basket ? Murphy Burton MD Fax ? Yuli Lucas MD Mail ? 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 We predilated the mid vessel lesion with a [id number] compliant balloon, then stented with a 3.0x28mm [...] signed. The patient was brought to the slab installer and placed on the table. The planned [...] 3). - A CATH GUIDE 6FR AR1 [id number] interventional guide catheter was used to [...] 11 bola (more content not included)... Normal [facility] CBC,PLATELETSon 04-05-2022 Hematocrit (Bld) [Volume fraction] 33.2 % Low 34.9-44.3 [facility] Comment on above: Performed By: #### L [email or web address] #### [facility] (DEFAULT) [address] [address] Hemoglobin (Bld) [Mass/Vol] 11.2 g/dL Low 11.4-15.2 [facility] Comment on above: Performed By: #### L [email or web address] #### [facility] (DEFAULT) [address] [address] MCV (RBC) [Entitic vol] 83.6 fL Normal 79.6-97.7 [facility] Comment on above: Performed By: #### L [email or web address] #### [facility] (DEFAULT) [address] [address] Mean Cell Hgb 28.2 pg Normal 25.9-33.9 [facility] Comment on above: Performed By: #### L [email or web address] #### [facility] (DEFAULT) [address] [place] [address] Mean Cell Hgb Conc 33.7 g/dL Normal 31.4-35.9 [facility] Comment on above: Performed By: #### L [email or web address] #### [facility] (DEFAULT) [address] [place] [address] Platelet mean volume (Bld) [Entitic vol] 9.9 fL Normal 8.5-12.2 [facility] Comment on above: Performed By: #### L [email or web address] #### [facility] (DEFAULT) [address] [place] [address] Platelets (Bld) [#/Vol] 232 10*3/uL Normal 150-393 [facility] Comment on above: Performed By: #### L [email or web address] #### [facility] (DEFAULT) [address] [place] [address] RBC (Bld) [#/Vol] 3.97 10*6/uL Normal 3.91-5.04 [facility] Comment on above: Performed By: #### L [email or web address] #### [facility] (DEFAULT) [address] [place] [address] RBC Distribution 12.8 % Normal 10.8-14.9 [facility] Comment on above: Performed By: #### L [email or web address] #### [facility] (DEFAULT) [address] [place] [address] WBC (Bld) [#/Vol] 7.42 10*3/uL Normal 3.99-11.19 [facility] Comment on above: Performed By: #### L [email or web address] #### [facility] (DEFAULT) [address] [place] [address] Erythrocyte distribution width (RBC) [Ratio] 12.8 % 10.8 - 14.9 % [facility] Hematocrit (Bld) [Volume fraction] 33.2 % Low 34.9 - 44.3 % [facility] Hemoglobin (Bld) [Mass/Vol] 11.2 g/dL Low 11.4 - 15.2 g/dL [facility] Interpretation and review of laboratory results Abnormal [facility] MCH (RBC) [Entitic mass] 28.2 pg 25.9 - 33.9 pg [facility] MCHC (RBC) [Mass/Vol] 33.7 g/dL 31.4 - 35.9 g/dL [facility] MCV (RBC) [Entitic vol] 83.6 fL 79.6 - 97.7 fL [facility] Platelet mean volume (Bld) [Entitic vol] 9.9 fL 8.5 - 12.2 fL [facility] Platelets (Bld) [#/Vol] 232 10*3/uL 150 - 393 K/uL [facility] RBC (Bld) [#/Vol] 3.97 10*6/uL [facility] WBC (Bld) [#/Vol] 7.42 10*3/uL 3.99 - 11. 19 K/uL [facility] CHEM 6 (LYTES, BUN CREA)on 0 - Anion gap [Moles/Vol] 12 mmol/L Normal 7-17 [facility] Comment on above: Performed By: #### X M #### [facility] (DEFAULT) [address] [place] [address] Chloride [Moles/Vol] 104 mmol/L Normal 98-108 [facility] Comment on above: Performed By: #### X M #### [facility] (DEFAULT) [address] [place] [address] 89693 CO2 [Moles/Vol] 22 mmol/L Normal 21-31 [facility] Comment on above: Performed By: #### X M #### [facility] (DEFAULT) [address] [place] [address] Creatinine [Mass/Vol] 0.57 mg/dL Normal 0.50-1.20 [facility] Comment on above: Performed By: #### X M #### [facility] (DEFAULT) [address] [place] [address] GFR/1.73 sq M.predicted among non-blacks MDRD (S/P/Bld) [Vol rate/Area] 88 mL/min/{1.73_m2} Normal >=60 [facility] Comment on above: Result Comment: Repo rted eGFR is based on the CKD-EPI 2020 equation using creatinine, age, and sex. Performed By: #### X M #### [facility] (DEFAULT) [address] [place] [address] Potassium [Moles/Vol] 4.1 mmol/L Normal 3.5-5.0 [facility] Comment on above: Performed By: #### X M #### [facility] (DEFAULT) [address] [place] [address] Sodium [Moles/Vol] 134 mmol/L Low 135-145 [facility] Comment on above: Performed By: #### X M #### [facility] (DEFAULT) [address] [place] [address] Urea nitrogen [Mass/Vol] 24 mg/dL Normal 7-25 [facility] Comment on above: Performed By: #### X M #### [facility] (DEFAULT) [address] [place] [address] Urea nitrogen/Creatinine [Mass ratio] 42 mg/mg Normal [facility] Comment on above: Performed By: #### X M #### [facility] (DEFAULT) [address] [place] [address] Anion gap [Moles/Vol] 12 mmol/L 7 - 17 mmol/L [facility] Chloride [Moles/Vol] 104 mmol/L 98 - 10 8 mmol/L [facility] CO2 [Moles/Vol] 22 mmol/L 21 - 31 mmol/L [facility] Creatinine [Mass/Vol] 0.57 mg/dL 0.50 - 1.20 mg/dL [facility] GFR/1.73 sq M.predicted CKD-EPI (S/P/Bld) [Vol rate/Area] 88 - PINF [facility] Comment on above: Reported eGFR is bas ed on the CKD-EPI 2020 equation using creatinine, age, and sex. Interpretation and review of laboratory results Abnormal [facility] Potassium [Moles/Vol] 4.1 mmol/L 3.5 - 5.0 mmol/L [facility] Sodium [Moles/Vol] 134 mmol/L Low 135 - 145 mmol/L [facility] Urea nitrogen [Mass/Vol] 24 mg/dL 7 - 25 mg/dL [facility] Urea nitrogen/Creatinine [Mass ratio] 42 mg/mg [facility] CONTINUOUS CARDIAC MONITORIN G STRIPon 04-05-2022 [facility] GLUCOSE POCon 04-05-2022 Glucose [Mass/Vol] 107 mg/dL High 70 - 99 mg/dL [facility] Interpretation and review of laboratory results Abnormal [facility] POC Sample Type CAPBL [facility] Test performed at address of the patient encounter. [facility] Glucose [Mass/Vol] 124 mg/dL High 70 - 99 mg/dL [facility] Interpretation and review of laboratory results Abnormal [facility] POC Sample Type CAPBL [facility] Test performed at address of the patient encounter. [facility] Glucose [Mass/Vol] 120 mg/dL High 70 - 99 mg/dL [facility] Interpretation and review of laboratory results Abnormal [facility] POC Sample Type CAPBL [facility] Test performed at address of the patient encounter. [facility] MAGNESIUMon 04-05-2022 Magnesium [Mass/Vol] 1.9 mg/dL Normal 1.6-2.6 [facility] Comment on above: Performed By: #### X M #### [facility] (DEFAULT) [address] [address] Interpretation and review of laboratory results Normal [facility] Magnesium [Mass/Vol] 1.9 mg/dL 1.6 - 2 .6 mg/dL [facility] No Panel Informationon 04-05 [facility] CBC,PLATELETSon 04-04-2022 Hematocrit (Bld) [Volume fraction] 34.3 % Low 34.9-44.3 [facility] Comment on above: Performed By: #### L [email or web address] #### [facility] (DEFAULT) [address] [address] Hemoglobin (Bld) [Mass/Vol] 11.6 g/dL Normal 11.4-15.2 [facility] Comment on above: Performed By: #### L [email or web address] #### [facility] (DEFAULT) [address] [address] MCV (RBC) [Entitic vol] 86.0 fL Normal 79.6-97.7 [facility] Comment on above: Performed By: #### L [email or web address] #### [facility] (DEFAULT) [address] [address] Mean Cell Hgb 29.1 pg Normal 25.9-33.9 [facility] Comment on above: Performed By: #### L [email or web address] #### [facility] (DEFAULT) [address] [address] Mean Cell Hgb Conc 33.8 g/dL Normal 31.4-35.9 [facility] Comment on above: Performed By: #### L [email or web address] #### [facility] (DEFAULT) [address] [address] Platelet mean volume (Bld) [Entitic vol] 10.1 fL Normal 8.5-12.2 [facility] Comment on above: Performed By: #### L [email or web address] #### [facility] (DEFAULT) [address] [place] [address] Platelets (Bld) [#/Vol] 228 10*3/uL Normal 150-393 [facility] Comment on above: Performed By: #### L [email or web address] #### [facility] (DEFAULT) [address] [place] [address] RBC (Bld) [#/Vol] 3.99 10*6/uL Normal 3.91-5.04 [facility] Comment on above: Performed By: #### L [email or web address] #### [facility] (DEFAULT) [address] [place] [address] RBC Distribution 12.5 % Normal 10.8-14.9 [facility] Comment on above: Performed By: #### L [email or web address] #### [facility] (DEFAULT) [address] [place] [address] WBC (Bld) [#/Vol] 7.71 10*3/uL Normal 3.99-11.19 [facility] Comment on above: Performed By: #### L [email or web address] #### [facility] (DEFAULT) [address] [place] [address] Erythrocyte distribution width (RBC) [Ratio] 12.5 % 10.8 - 14.9 % [facility] Hematocrit (Bld) [Volume fraction] 34.3 % Low 34.9 - 44.3 % [facility] Hemoglobin (Bld) [Mass/Vol] 11.6 g/dL 11.4 - 15.2 g/dL [facility] Interpretation and review of laboratory results Abnormal [facility] MCH (RBC) [Entitic mass] 29.1 pg 25.9 - 33.9 pg [facility] MCHC (RBC) [Mass/Vol] 33.8 g/dL 31.4 - 35.9 g/dL [facility] MCV (RBC) [Entitic vol] 86.0 fL 79.6 - 97.7 fL [facility] Platelet mean volume (Bld) [Entitic vol] 10.1 fL 8.5 - 12.2 fL [facility] Platelets (Bld) [#/Vol] 228 10*3/uL 150 - 393 K/uL [facility] RBC (Bld) [#/Vol] 3.99 10*6/uL [facility] WBC (Bld) [#/Vol] 7.71 10*3/uL 3.99 - 11. 19 K/uL [facility] CHEM 6 (LYTES, BUN CREA)on 0 04-04-2022 Anion gap [Moles/Vol] 12 mmol/L Normal 7-17 [facility] Comment on above: Performed By: #### T YPEC #### [facility] (DEFAULT) [address] [place] [address] Chloride [Moles/Vol] 103 mmol/L Normal 98-108 [facility] Comment on above: Performed By: #### T YPEC #### [facility] (DEFAULT) [address] [place] [address] CO2 [Moles/Vol] 24 mmol/L Normal 21-31 [facility] Comment on above: Performed By: #### T YPEC #### [facility] (DEFAULT) [address] [place] [address] Creatinine [Mass/Vol] 0.69 mg/dL Normal 0.50-1.20 [facility] Comment on above: Performed By: #### T YPEC #### [facility] (DEFAULT) [address] [place] [address] GFR/1.73 sq M.predicted among non-blacks MDRD (S/P/Bld) [Vol rate/Area] 84 mL/min/{1.73_m2} Normal >=60 [facility] Comment on above: Result Comment: Repo rted eGFR is based on the CKD-EPI 2020 equation using creatinine, age, and sex. Performed By: #### T YPEC #### [facility] [facility] (DEFAULT) [address] [place] [address] 10246 Potassium [Moles/Vol] 4.0 mmol/L Normal 3.5-5.0 [facility] Comment on above: Performed By: #### T YPEC #### [facility] (DEFAULT) [address] [place] [address] Sodium [Moles/Vol] 135 mmol/L Normal 135-145 [facility] Comment on above: Performed By: #### T YPEC #### [facility] (DEFAULT) [address] [place] [address] 26004 Urea nitrogen [Mass/Vol] 30 mg/dL High 7-25 [facility] Comment on above: Performed By: #### T YPEC #### [facility] (DEFAULT) [address] [place] [address] 89459 Urea nitrogen/Creatinine [Mass ratio] 43 mg/mg Normal [facility] Comment on above: Performed By: #### T YPEC #### [facility] (DEFAULT) [address] [place] [address] 05698 Anion gap [Moles/Vol] 12 mmol/L 7 - 17 mmol/L [facility] Chloride [Moles/Vol] 103 mmol/L 98 - 10 8 mmol/L [facility] CO2 [Moles/Vol] 24 mmol/L 21 - 31 mmol/L [facility] Creatinine [Mass/Vol] 0.69 mg/dL 0.50 - 1.20 mg/dL [facility] GFR/1.73 sq M.predicted CKD-EPI (S/P/Bld) [Vol rate/Area] 84 - PINF [facility] Comment on above: Reported eGFR is bas ed on the CKD-EPI 2020 equation using creatinine, age, and sex. Interpretation and review of laboratory results Abnormal [facility] Potassium [Moles/Vol] 4.0 mmol/L 3.5 - 5.0 mmol/L [facility] Sodium [Moles/Vol] 135 mmol/L 135 - 145 mmol/L [facility] Urea nitrogen [Mass/Vol] 30 mg/dL High 7 - 25 mg/dL [facility] Urea nitrogen/Creatinine [Mass ratio] 43 mg/mg [facility] CONTINUOUS CARDIAC MONITORIN G STRIPon 04-04-2022 [facility] Cardiac catheterization stud yon 04-04-2022 [facility]2022 Glucose [Mass/Vol] 201 mg/dL High 70 - 99 mg/dL [facility] Interpretation and review of laboratory results Abnormal [facility] POC Sample Type CAPBL [facility] Test performed at address of the patient encounter. [facility] Glucose [Mass/Vol] 116 mg/dL High 70 - 99 mg/dL [facility] Interpretation and review of laboratory results Abnormal [facility] POC Sample Type CAPBL [facility] Test performed at address of the patient encounter. [facility] Glucose [Mass/Vol] 152 mg/dL High 70 - 99 mg/dL [facility] Interpretation and review of laboratory results Abnormal [facility] POC Sample Type CAPBL [facility] Test performed at address of the patient encounter. [facility] Glucose [Mass/Vol] 126 mg/dL High 70 - 99 mg/dL [facility] Interpretation and review of laboratory results Abnormal [facility] POC Sample Type CAPBL [facility] Test performed at address of the patient encounter. [facility] Glucose [Mass/Vol] 118 mg/dL High 70 - 99 mg/dL [facility] Interpretation and review of laboratory results Abnormal [facility] POC Sample Type CAPBL [facility] Test performed at address of the patient encounter. [facility] MAGNESIUMon 04-04-2022 Magnesium [Mass/Vol] 2.0 mg/dL Normal 1.6-2.6 [facility] Comment on above: Performed By: #### T YPEC #### [facility] (DEFAULT) [address] [place] [address] 14345 Interpretation and review of laboratory results Normal [facility] Magnesium [Mass/Vol] 2.0 mg/dL 1.6 - 2 .6 mg/dL [facility] No Panel Informationon 04-04 [facility] TROPONIN 1 HOURon 04-04-2022 1 Hour hs-Troponin 126 ng/L High <34 [facility] Comment on above: Order Comment: Prese rvative, acetic acid, obtained from lab Result Comment: Sugg estive of myocardial injury Performed By: #### Y METN #### [facility] (DEFAULT) [address] [place] [address] 31373 Delta hs-Troponin I < Normal <=15 [facility] Comment on above: Order Comment: Prese rvative, acetic acid, obtained from lab Performed By: #### Y METN #### [facility] (DEFAULT) [address] [place] [address] 68710 1 Hour hs-Troponin 126 ng/L High NINF - 34 ng/L [facility] Comment on above: Suggestive of myocar dial injury Delta hs-Troponin I ng/L NINF - 1 5 ng/L [facility] Interpretation and review of laboratory results Abnormal [facility] TROPONIN I INITIALon 023 hs-Troponin I 127 ng/L High <34 [facility] Comment on above: Order Comment: Acute Coronary Syndrome (ACS): Initial Evaluation and Management:[email or web address] Result Comment: Sugg estive of myocardial injury Performed By: #### [id number] ####[facility] (DEFAULT)[address] [place] [address] 67668 TROPONIN I INITIALOrdered By : Tamica Alarcon on 04-04-2022 Interpretation and review of laboratory results Abnormal [facility] Troponin I.cardiac DL <= 0.01 ng/mL [Mass/Vol] 127 ng/L High NINF - 34 ng/L [facility] Comment on above: Suggestive of myocar dial injury [facility] CBC,PLATELETSon 04-03-2022 Hematocrit (Bld) [Volume fraction] 35.6 % Normal 34.9-44.3 [facility] Comment on above: Performed By: #### X M #### [facility] (DEFAULT) [address] [address] Hemoglobin (Bld) [Mass/Vol] 12.0 g/dL Normal 11.4-15.2 [facility] Comment on above: Performed By: #### X M #### [facility] (DEFAULT) [address] [address] MCV (RBC) [Entitic vol] 85.0 fL Normal 79.6-97.7 [facility] Comment on above: Performed By: #### X M #### [facility] (DEFAULT) [address] [address] Mean Cell Hgb 28.6 pg Normal 25.9-33.9 [facility] Comment on above: Performed By: #### X M #### [facility] (DEFAULT) [address] [address] Mean Cell Hgb Conc 33.7 g/dL Normal 31.4-35.9 [facility] Comment on above: Performed By: #### X M #### [facility] (DEFAULT) [address] [address] Platelet mean volume (Bld) [Entitic vol] 9.8 fL Normal 8.5-12.2 [facility] Comment on above: Performed By: #### X M #### [facility] (DEFAULT) [address] [address] Platelets (Bld) [#/Vol] 231 10*3/uL Normal 150-393 [facility] Comment on above: Performed By: #### X M #### [facility] (DEFAULT) [address] [place] [address] 69735 RBC (Bld) [#/Vol] 4.19 10*6/uL Normal 3.91-5.04 [facility] Comment on above: Performed By: #### X M #### [facility] (DEFAULT) [address] [place] [address] 73898 RBC Distribution 12.7 % Normal 10.8-14.9 [facility] Comment on above: Performed By: #### X M #### [facility] (DEFAULT) [address] [place] [address] 13172 WBC (Bld) [#/Vol] 6.95 10*3/uL Normal 3.99-11.19 [facility] Comment on above: Performed By: #### X M #### [facility] (DEFAULT) [address] [place] [address] 69137 Erythrocyte distribution width (RBC) [Ratio] 12.7 % 10.8 - 14.9 % [facility] Hematocrit (Bld) [Volume fraction] 35.6 % 34.9 - 44.3 % [facility] Hemoglobin (Bld) [Mass/Vol] 12.0 g/dL 11.4 - 15.2 g/dL [facility] Interpretation and review of laboratory results Normal [facility] MCH (RBC) [Entitic mass] 28.6 pg 25.9 - 33.9 pg [facility] MCHC (RBC) [Mass/Vol] 33.7 g/dL 31.4 - 35.9 g/dL [facility] MCV (RBC) [Entitic vol] 85.0 fL 79.6 - 97.7 fL [facility] Platelet mean volume (Bld) [Entitic vol] 9.8 fL 8.5 - 12.2 fL [facility] Platelets (Bld) [#/Vol] 231 10*3/uL 150 - 393 K/uL [facility] RBC (Bld) [#/Vol] 4.19 10*6/uL [facility] WBC (Bld) [#/Vol] 6.95 10*3/uL 3.99 - 11. 19 K/uL [facility] CHEM 6 (LYTES, BUN CREA)on 0 04-03-2022 Anion gap [Moles/Vol] 12 mmol/L Normal 7-17 [facility] Comment on above: Performed By: #### L ABHSTI1 #### [facility] (DEFAULT) [address] [place] [address] 45734 Chloride [Moles/Vol] 102 mmol/L Normal 98-108 [facility] Comment on above: Performed By: #### L ABHSTI1 #### [facility] (DEFAULT) [address] [place] [address] 24375 CO2 [Moles/Vol] 23 mmol/L Normal 21-31 [facility] Comment on above: Performed By: #### L ABHSTI1 #### [facility] (DEFAULT) [address] [place] [address] 99771 Creatinine [Mass/Vol] 0.58 mg/dL Normal 0.50-1.20 [facility] Comment on above: Performed By: #### L ABHSTI1 #### [facility] (DEFAULT) [address] [place] [address] 15035 GFR/1.73 sq M.predicted among non-blacks MDRD (S/P/Bld) [Vol rate/Area] 88 mL/min/{1.73_m2} Normal >=60 [facility] Comment on above: Result Comment: Repo rted eGFR is based on the CKD-EPI 2020 equation using creatinine, age, and sex. Performed By: #### L ABHSTI1 #### [facility] (DEFAULT) [address] [place] [address] 91541 Potassium [Moles/Vol] 4.3 mmol/L Normal 3.5-5.0 [facility] Comment on above: Performed By: #### L ABHSTI1 #### [facility] (DEFAULT) [address] [place] [address] 58205 Sodium [Moles/Vol] 133 mmol/L Low 135-145 [facility] Comment on above: Performed By: #### L HSTI1 #### [facility] (DEFAULT) [address] [place] [address] 23777 Urea nitrogen [Mass/Vol] 24 mg/dL Normal 7-25 [facility] Comment on above: Performed By: #### L HSTI1 #### [facility] (DEFAULT) [address] [place] [address] 83559 Urea nitrogen/Creatinine [Mass ratio] 41 mg/mg Normal [facility] Comment on above: Performed By: #### L HSTI1 #### [facility] (DEFAULT) [address] [place] [address] 55044 Anion gap [Moles/Vol] 12 mmol/L 7 - 17 mmol/L [facility] Chloride [Moles/Vol] 102 mmol/L 98 - 10 8 mmol/L [facility] CO2 [Moles/Vol] 23 mmol/L 21 - 31 mmol/L [facility] Creatinine [Mass/Vol] 0.58 mg/dL 0.50 - 1.20 mg/dL [facility] GFR/1.73 sq M.predicted CKD-EPI (S/P/Bld) [Vol rate/Area] 88 - PINF [facility] Comment on above: Reported eGFR is bas ed on the CKD-EPI 2020 equation using creatinine, age, and sex. Interpretation and review of laboratory results Abnormal [facility] Potassium [Moles/Vol] 4.3 mmol/L 3.5 - 5.0 mmol/L [facility] Sodium [Moles/Vol] 133 mmol/L Low 135 - 145 mmol/L [facility] Urea nitrogen [Mass/Vol] 24 mg/dL 7 - 25 mg/dL [facility] Urea nitrogen/Creatinine [Mass ratio] 41 mg/mg [facility] CONTINUOUS CARDIAC MONITORIN G STRIPon 04-03-2022 [facility] GLUCOSE POCon 04-03-2022 Glucose [Mass/Vol] 171 mg/dL High 70 - 99 mg/dL [facility] Interpretation and review of laboratory results Abnormal [facility] POC Sample Type CAPBL [facility] Test performed at address of the patient encounter. [facility] Glucose [Mass/Vol] 116 mg/dL High 70 - 99 mg/dL [facility] Interpretation and review of laboratory results Abnormal [facility] POC Sample Type CAPBL [facility] Test performed at address of the patient encounter. [facility] Glucose [Mass/Vol] 96 mg/dL 70 - 99 mg/dL [facility] POC Sample Type CAPBL [facility] Test performed at address of the patient encounter. [facility] Glucose [Mass/Vol] 136 mg/dL High 70 - 99 mg/dL [facility] Interpretation and review of laboratory results Abnormal [facility] POC Sample Type CAPBL [facility] Test performed at address of the patient encounter. [facility] MAGNESIUMon 04-03-2022 Magnesium [Mass/Vol] 1.8 mg/dL Normal 1.6-2.6 [facility] Comment on above: Performed By: #### [facility] #### [facility] (DEFAULT) [address] [place] [address] Interpretation and review of laboratory results Normal [facility] Magnesium [Mass/Vol] 1.8 mg/dL 1.6 - 2 .6 mg/dL [facility] No Panel Informationon 04-03 [facility] ACT* LOW RANGE, POCon 2022 ACT-LR 343 High [facility] ACT-LR 370 High [facility] ACT-LR 169 [facility] ACT-LR 267 High [facility] Interpretation and review of laboratory results Normal [facility] Interpretation and review of laboratory results Abnormal [facility] CBC,PLATELETSon 04-02-2022 Hematocrit (Bld) [Volume fraction] 38.3 % Normal 34.9-44.3 [facility] Comment on above: Performed By: #### X M #### [facility] (DEFAULT) [address] [address] Hemoglobin (Bld) [Mass/Vol] 12.8 g/dL Normal 11.4-15.2 [facility] Comment on above: Performed By: #### X M #### [facility] (DEFAULT) [address] [address] MCV (RBC) [Entitic vol] 85.7 fL Normal 79.6-97.7 [facility] Comment on above: Performed By: #### X M #### [facility] (DEFAULT) [address] [address] Mean Cell Hgb 28.6 pg Normal 25.9-33.9 [facility] Comment on above: Performed By: #### X M #### [facility] (DEFAULT) [address] [place] [address] 19704 Mean Cell Hgb Conc 33.4 g/dL Normal 31.4-35.9 [facility] Comment on above: Performed By: #### X M #### [facility] (DEFAULT) [address] [address] Platelet mean volume (Bld) [Entitic vol] 10.0 fL Normal 8.5-12.2 [facility] Comment on above: Performed By: #### X M #### [facility] (DEFAULT) [address] [place] [address] Platelets (Bld) [#/Vol] 247 10*3/uL Normal 150-393 [facility] Comment on above: Performed By: #### X M #### [facility] (DEFAULT) [address] [place] [address] 35712 RBC (Bld) [#/Vol] 4.47 10*6/uL Normal 3.91-5.04 [facility] Comment on above: Performed By: #### X M #### [facility] (DEFAULT) [address] [place] [address] 38237 RBC Distribution 12.9 % Normal 10.8-14.9 [facility] Comment on above: Performed By: #### X M #### [facility] (DEFAULT) [address] [place] [address]32 WBC (Bld) [#/Vol] 7.44 10*3/uL Normal 3.99-11.19 [facility] Comment on above: Performed By: #### X M #### [facility] (DEFAULT) [address] [place] [address] 27439 Erythrocyte distribution width (RBC) [Ratio] 12.9 % 10.8 - 14.9 % [facility] Hematocrit (Bld) [Volume fraction] 38.3 % 34.9 - 44.3 % [facility] Hemoglobin (Bld) [Mass/Vol] 12.8 g/dL 11.4 - 15.2 g/dL [facility] Interpretation and review of laboratory results Normal [facility] MCH (RBC) [Entitic mass] 28.6 pg 25.9 - 33.9 pg [facility] MCHC (RBC) [Mass/Vol] 33.4 g/dL 31.4 - 35.9 g/dL [facility] MCV (RBC) [Entitic vol] 85.7 fL 79.6 - 97.7 fL [facility] Platelet mean volume (Bld) [Entitic vol] 10.0 fL 8.5 - 12.2 fL [facility] Platelets (Bld) [#/Vol] 247 10*3/uL 150 - 393 K/uL [facility] RBC (Bld) [#/Vol] 4.47 10*6/uL [facility] WBC (Bld) [#/Vol] 7.44 10*3/uL 3.99 - 11. 19 K/uL [facility] CHEM 6 (LYTES, BUN CREA)on 0 04-02-2022 Anion gap [Moles/Vol] 12 mmol/L Normal 7-17 [facility] Comment on above: Performed By: #### C HM6 #### [facility] (DEFAULT) [address] [place] [address] 34674 Chloride [Moles/Vol] 102 mmol/L Normal 98-108 [facility] Comment on above: Performed By: #### C HM6 #### [facility] (DEFAULT) [address] [place] [address] 77147 CO2 [Moles/Vol] 26 mmol/L Normal 21-31 [facility] Comment on above: Performed By: #### C HM6 #### [facility] (DEFAULT) [address] [place] [address] 35574 Creatinine [Mass/Vol] 0.59 mg/dL Normal 0.50-1.20 [facility] Comment on above: Performed By: #### C HM6 #### [facility] (DEFAULT) [address] [place] [address] 20562 GFR/1.73 sq M.predicted among non-blacks MDRD (S/P/Bld) [Vol rate/Area] 87 mL/min/{1.73_m2} Normal >=60 [facility] Comment on above: Result Comment: Repo rted eGFR is based on the CKD-EPI 2020 equation using creatinine, age, and sex. Performed By: #### C HM6 #### [facility] (DEFAULT) [address] [place] [address] 34485 Potassium [Moles/Vol] 4.1 mmol/L Normal 3.5-5.0 [facility] Comment on above: Performed By: #### C HM6 #### [facility] (DEFAULT) [address] [place] [address] Sodium [Moles/Vol] 136 mmol/L Normal 135-145 [facility] Comment on above: Performed By: #### C HM6 #### [facility] (DEFAULT) [address] [place] [address] Urea nitrogen [Mass/Vol] 20 mg/dL Normal 7-25 [facility] Comment on above: Performed By: #### C HM6 #### [facility] (DEFAULT) [address] [place] [address] 22783 Urea nitrogen/Creatinine [Mass ratio] 34 mg/mg Normal [facility] Comment on above: Performed By: #### C HM6 #### [facility] (DEFAULT) [address] [place] [address] 65809 Anion gap [Moles/Vol] 12 mmol/L 7 - 17 mmol/L [facility] Chloride [Moles/Vol] 102 mmol/L 98 - 10 8 mmol/L [facility] CO2 [Moles/Vol] 26 mmol/L 21 - 31 mmol/L [facility] Creatinine [Mass/Vol] 0.59 mg/dL 0.50 - 1.20 mg/dL [facility] GFR/1.73 sq M.predicted CKD-EPI (S/P/Bld) [Vol rate/Area] 87 - PINF [facility] Comment on above: Reported eGFR is bas ed on the CKD-EPI 2020 equation using creatinine, age, and sex. Potassium [Moles/Vol] 4.1 mmol/L 3.5 - 5.0 mmol/L [facility] Sodium [Moles/Vol] 136 mmol/L 135 - 145 mmol/L [facility] Urea nitrogen [Mass/Vol] 20 mg/dL 7 - 25 mg/dL [facility] Urea nitrogen/Creatinine [Mass ratio] 34 mg/mg [facility] CONTINUOUS CARDIAC MONITORIN G STRIPon 04-02-2022 [facility] Cardiac catheterization stud grzegorz 04-02-2022 Body surface area Derived from formula 1.54 m2 [facility] Impression: Successful high-risk, complex PCI to proximal [...] was unable to be traversed with a [place] XT. A Whisper wire was successfully advanced [...] the lesion. Ultrasound supply: [facility]. Supplies Used: [employer] 6FR EBU3 [...] Diastolic heart fa (more content not included)... [facility] GLUCOSE POCon 04-02-2022 Glucose [Mass/Vol] 162 mg/dL High 70 - 99 mg/dL [facility] Interpretation and review of laboratory results Abnormal [facility] POC Sample Type CAPBL [facility] Test performed at address of the patient encounter. [facility] Glucose [Mass/Vol] 119 mg/dL High 70 - 99 mg/dL [facility] Interpretation and review of laboratory results Abnormal [facility] POC Sample Type CAPBL [facility] Test performed at address of the patient encounter. [facility] Glucose [Mass/Vol] 131 mg/dL High 70 - 99 mg/dL [facility] Interpretation and review of laboratory results Abnormal [facility] POC Sample Type CAPBL [facility] Test performed at address of the patient encounter. [facility] Glucose [Mass/Vol] 122 mg/dL High 70 - 99 mg/dL [facility] Interpretation and review of laboratory results Abnormal [facility] POC Sample Type CAPBL [facility] Test performed at address of the patient encounter. [facility] MAGNESIUMon 04-02-2022 Magnesium [Mass/Vol] 1.9 mg/dL Normal 1.6-2.6 [facility] Comment on above: Performed By: #### C HM6 #### [facility] (DEFAULT) [address] [place] [address] Interpretation and review of laboratory results Normal [facility] Magnesium [Mass/Vol] 1.9 mg/dL 1.6 - 2 .6 mg/dL [facility] No Panel Informationon 04-02 [facility] Interpretation and review of laboratory results Abnormal [facility] Test performed at address of the patient encounter. [facility] Test performed at address of the patient encounter. [facility] CBC,PLATELETSon 04-01-2022 Hematocrit (Bld) [Volume fraction] 37.1 % Normal 34.9-44.3 [facility] Comment on above: Performed By: #### C HM6 #### [facility] (DEFAULT) [address] [place] [address] 50370 Hemoglobin (Bld) [Mass/Vol] 12.3 g/dL Normal 11.4-15.2 [facility] Comment on above: Performed By: #### C HM6 #### [facility] (DEFAULT) [address] [place] [address] 24038 MCV (RBC) [Entitic vol] 85.3 fL Normal 79.6-97.7 [facility] Comment on above: Performed By: #### C HM6 #### [facility] (DEFAULT) [address] [address] Mean Cell Hgb 28.3 pg Normal 25.9-33.9 [facility] Comment on above: Performed By: #### C HM6 #### [facility] (DEFAULT) [address] [place] [address] 45041 Mean Cell Hgb Conc 33.2 g/dL Normal 31.4-35.9 [facility] Comment on above: Performed By: #### C HM6 #### [facility] (DEFAULT) [address] [place] [address] 46365 Platelet mean volume (Bld) [Entitic vol] 10.2 fL Normal 8.5-12.2 [facility] Comment on above: Performed By: #### C HM6 #### [facility] (DEFAULT) [address] [place] [address] 21527 Platelets (Bld) [#/Vol] 248 10*3/uL Normal 150-393 [facility] Comment on above: Performed By: #### C HM6 #### [facility] (DEFAULT) [address] [place] [address] 59550 RBC (Bld) [#/Vol] 4.35 10*6/uL Normal 3.91-5.04 [facility] Comment on above: Performed By: #### C HM6 #### [facility] (DEFAULT) [address] [place] [address] 32378 RBC Distribution 12.8 % Normal 10.8-14.9 [facility] Comment on above: Performed By: #### C HM6 #### [facility] (DEFAULT) [address] [place] [address] 43087 WBC (Bld) [#/Vol] 7.15 10*3/uL Normal 3.99-11.19 [facility] Comment on above: Performed By: #### C HM6 #### [facility] (DEFAULT) [address] [place] [address] 77294 Erythrocyte distribution width (RBC) [Ratio] 12.8 % 10.8 - 14.9 % [facility] Hematocrit (Bld) [Volume fraction] 37.1 % 34.9 - 44.3 % [facility] Hemoglobin (Bld) [Mass/Vol] 12.3 g/dL 11.4 - 15.2 g/dL [facility] Interpretation and review of laboratory results Normal [facility] MCH (RBC) [Entitic mass] 28.3 pg 25.9 - 33.9 pg [facility] MCHC (RBC) [Mass/Vol] 33.2 g/dL 31.4 - 35.9 g/dL [facility] MCV (RBC) [Entitic vol] 85.3 fL 79.6 - 97.7 fL [facility] Platelet mean volume (Bld) [Entitic vol] 10.2 fL 8.5 - 12.2 fL [facility] Platelets (Bld) [#/Vol] 248 10*3/uL 150 - 393 K/uL [facility] RBC (Bld) [#/Vol] 4.35 10*6/uL [facility] WBC (Bld) [#/Vol] 7.15 10*3/uL 3.99 - 11. 19 K/uL [facility] CHEM 6 (LYTES, BUN CREA)on 0 - Anion gap [Moles/Vol] 15 mmol/L Normal 7-17 [facility] Comment on above: Performed By: #### C HM7 #### [facility] (DEFAULT) [address] [address] Chloride [Moles/Vol] 105 mmol/L Normal 98-108 [facility] Comment on above: Performed By: #### C HM7 #### [facility] (DEFAULT) [address] [address] CO2 [Moles/Vol] 22 mmol/L Normal 21-31 [facility] Comment on above: Performed By: #### C HM7 #### [facility] (DEFAULT) [address] [address] Creatinine [Mass/Vol] 0.69 mg/dL Normal 0.50-1.20 [facility] Comment on above: Performed By: #### C HM7 #### [facility] (DEFAULT) [address] [address] GFR/1.73 sq M.predicted among non-blacks MDRD (S/P/Bld) [Vol rate/Area] 84 mL/min/{1.73_m2} Normal >=60 [facility] Comment on above: Result Comment: Repo rted eGFR is based on the CKD-EPI 2020 equation using creatinine, age, and sex. Performed By: #### C HM7 #### [facility] (DEFAULT) [address] [place] [address] 41843 Potassium [Moles/Vol] 4.6 mmol/L Normal 3.5-5.0 [facility] Comment on above: Performed By: #### C HM7 #### [facility] (DEFAULT) [address] [place] [address] 13586 Sodium [Moles/Vol] 137 mmol/L Normal 135-145 [facility] Comment on above: Performed By: #### C HM7 #### [facility] (DEFAULT) [address] [place] [address] 86493 Urea nitrogen [Mass/Vol] 29 mg/dL High 7-25 [facility] Comment on above: Performed By: #### C HM7 #### [facility] (DEFAULT) [address] [place] [address] 36184 Urea nitrogen/Creatinine [Mass ratio] 42 mg/mg Normal [facility] Comment on above: Performed By: #### C HM7 #### [facility] (DEFAULT) [address] [place] [address] 49930 Anion gap [Moles/Vol] 15 mmol/L 7 - 17 mmol/L [facility] Chloride [Moles/Vol] 105 mmol/L 98 - 10 8 mmol/L [facility] CO2 [Moles/Vol] 22 mmol/L 21 - 31 mmol/L [facility] Creatinine [Mass/Vol] 0.69 mg/dL 0.50 - 1.20 mg/dL [facility] GFR/1.73 sq M.predicted CKD-EPI (S/P/Bld) [Vol rate/Area] 84 - PINF [facility] Comment on above: Reported eGFR is bas ed on the CKD-EPI 2020 equation using creatinine, age, and sex. Interpretation and review of laboratory results Abnormal [facility] Potassium [Moles/Vol] 4.6 mmol/L 3.5 - 5.0 mmol/L [facility] Sodium [Moles/Vol] 137 mmol/L 135 - 145 mmol/L [facility] Urea nitrogen [Mass/Vol] 29 mg/dL High 7 - 25 mg/dL [facility] Urea nitrogen/Creatinine [Mass ratio] 42 mg/mg [facility] Cardiac catheterization stud yon 04-01-2022 [facility] Radiology Study observation (narrative) [facility] Radiology Study observation (narrative) [facility] Cardiac echo study Procedure Ordered By: Antwon Davis on 04-01-2022 Ao peak jay 3.36 m/s [facility] Work Phone: Ao VTI 92.42 cm [facility] Work Phone: AR Max Jay 3.13 m/s [facility] Work Phone: Ascending aorta 3.52 cm [facility] Work Phone: AV LVOT peak gradient 3 mmHg [facility] Work Phone: AV mean gradient 33 mmHg [facility] Work Phone: AV peak gradient 45 mmHG [facility] Work Phone: AV regurgitation pressure 1/2 time 413.34 ms [facility] Work Phone: AV valve area 0.69 cm2 [facility] Work Phone: AV Velocity Ratio 0.25 [facility] Work Phone: LIDIA (continuity Vmax) 0.74 cm2 [facility] Work Phone: LIDIA (continuity VTI) 0.69 cm2 [facility] Work Phone: LIDIA index (continuity Vmax) 0.48 [facility]: LIDIA index (continuity VTI) 0.45 cm2/m2 [facility] Work Phone: Avg e' pk jay 0.06 m/s [facility] Work Phone: Avg E/e' ratio 20.68 [facility] Work Phone: Body surface area Derived from formula 1.54 m2 [facility] Work Phone: BP EF 59 % [facility] Work Phone: DI (Vmax) 0.25 [facility] Work Phone: DI (VTI) 0.23 m/2 [facility] Work Phone: E wave decelartion time 358.42 msec [facility] Work Phone: e' lateral pk jay 0.0932 m/s [facility] Work Phone: e' lateral pk jay 0.09 m/s [facility] Work Phone: e' septal pk jay 0.0331 [facility]: e' septal pk jay 0.03 m/s [facility] Work Phone: E/A ratio 0.81 [facility] Work Phone: E/e' lateral [facility] 10.84 [facility]: E/e' septal ratio 30.51 [facility] Work Phone: EF SP 2CH 65 [facility] Work Phone: EF SP 4CH 54 [facility] Work Phone: EST RAP 3.00 mmHg [facility] Work Phone: EST RVSP 26 mmHg [facility] Work Phone: FS 34 % 28 - 44 % [facility] Work Phone: IVS 1.23 cm [facility] Work Phone: LA AREA 2CH 22.98 cm2 [facility] Work Phone: LA area 4CH 17.03 cm2 [facility] Work Phone: LA ESV BP (MOD) 57 [facility]: LA ESV BP (MOD) index 37 mL/m2 [facility] Work Phone: LA ESV SP 2CH (MOD) 75 mL [facility] Work Phone: LA ESV SP 4CH (MOD) 42 mL [facility] Work Phone: LV EDV BP 46 mL [facility] Work Phone: LV EDV SP 2CH 46 mL [facility] Work Phone: LV EDV SP 4CH 46 mL [facility] Work Phone: LV ESV BP 19 mL [facility] Work Phone: LV ESV SP 2CH 16 mL [facility] Work Phone: LV ESV SP 4CH 21 mL [facility] Work Phone: LV mass 162.25 g [facility] Work Phone: LV Mass Index 105.4 g/m2 [facility] Work Phone: LV RWT 0.43 [facility] Work Phone: LV stroke volume BP (ml) 27 mL [facility] Work Phone: LV stroke volume index BP 17.53 mL/m2 [facility] Work Phone: LVIDD 4.36 cm [facility] Work Phone: LVIDS 2.86 cm [facility] Work Phone: LVOT area 2.98 cm2 [facility] Work Phone: LVOT diameter 1.95 cm [facility] Work Phone: LVOT peak jay 0.83 m/s [facility] Work Phone: LVOT peak VTI 21.38 cm [facility] Work Phone: LVOT stroke volume 64 cm3 [facility] Work Phone: LVOT stroke volume index 41.44 ml/m2 [facility] Work Phone: MV pk A jay 1.25 m/s [facility] Work Phone: MV pk E jay 1.01 m/s [facility] Work Phone: [facility] AV VTI RATIO PRE STRESS 0.23 [facility] Work Phone: [facility]SU ECHO LV BIPLANE SYSTOLIC VOLUME INDEX 12.34 mL/m2 [facility] Work Phone: [facility] ECHO LV BP DIASTOLIC VOLUME INDEX 29.87 mL/m2 [facility] Work Phone: PW 0.93 cm [facility] Work Phone: RA area 4CH (MOD) 12.30 cm2 [facility] Work Phone: RA vol index 4CH (MOD) 19.48 mL/m2 [facility] Work Phone: Right atrium volume 4 chamber method of disks 30 mL [facility] Work Phone: RV Area diastolic 17.45 cm2 [facility] Work Phone: RV Area systolic 11.79 cm2 [facility] Work Phone: RV basal diam 3.63 cm [facility] Work Phone: RV Fractional area change 32.4 % [facility] Work Phone: RV long diam 6.57 cm [facility] Work Phone: RV mid diam 2.69 cm [facility] Work Phone: RV S' 17.00 cm/s [facility] Work Phone: RVOT peak gradient 4 mmHg [facility] Work Phone: RVOT peak jay 0.97 m/s [facility] Work Phone: RVOT peak VTI 18.68 cm [facility] Work Phone: Sinus 2.71 cm [facility] Work Phone: STJ 2.27 cm [facility] Work Phone: Stroke Volume 64 cm/mL [facility] Work Phone: Stroke volume index 41 [facility] Work Phone: TAPSE 1.65 cm [facility] Work Phone: TR pk grad 23 mmHg [facility] Work Phone: TR pk jay 2.40 m/s [facility] Work Phone: [facility] Work Phone: Cardiac echo study Procedure on [...] study quality was fair. Imaging system used: [employer]. Indications Indications for study: LV function. Wall Scoring Score Index: 1.00 The left ventricular wall motion is normal. [facility] Radiology Study observation (narrative) [facility] ECHOCARDIOGRAMon 04-01-2022 Echocardiography ? Sub-optimal image quality, [...] the original result were not included. Facility [facility] Patient Information Patient Name Finesse [...] Role Read Date Antwon Davis MD Echo [place] 04/01/2022 Wall Scoring Score Index: 1.00 The [...] m/s E/A ratio 0.81 e' septal pk jya 0.03 m/s e' lateral pk jay 0.09 [...] RAP 3 (more content not included)... Normal [facility] GLUCOSE POCon 04-01-2022 Glucose [Mass/Vol] 199 mg/dL High 70 - 99 mg/dL [facility] Interpretation and review of laboratory results Abnormal [facility] POC Sample Type CAPBL [facility] Test performed at address of the patient encounter. [facility] Glucose [Mass/Vol] 129 mg/dL High 70 - 99 mg/dL [facility] Interpretation and review of laboratory results Abnormal [facility] POC Sample Type CAPBL [facility] Test performed [facility] the [facility] encounter. [facility] Glucose [Mass/Vol] 176 mg/dL High 70 - 99 mg/dL [facility] Interpretation and review of laboratory results Abnormal [facility] POC Sample Type CAPBL [facility] Test performed at address of the patient encounter. [facility] Glucose [Mass/Vol] 159 mg/dL High 70 - 99 mg/dL [facility] Interpretation and review of laboratory results Abnormal [facility] POC Sample Type CAPBL [facility] Test performed at address of the patient encounter. [facility] HEMOGLOBIN [id number] By: Stephen Sneed on 04-01-2022 Average glucose Estimated from glycated hemoglobin (Bld) [Mass/Vol] 148 mg/dL [facility] HbA1c (Bld) [Mass fraction] 6.8 % High 4.7 - 5.6 % [facility] Interpretation and review of laboratory results Abnormal [facility] HEMOGLOBIN A1Con 04-01-2022 Glucose [Mass/Vol] 148 mg/dL Normal [facility] Comment on above: Performed By: #### C HM6 #### [facility] (DEFAULT) [address] [place] [address] HbA1c (Bld) [Mass fraction] 6.8 % High 4.7-5.6 [facility] Comment on above: Performed By: #### C HM6 #### [facility] (DEFAULT) [address] [place] [address]341 LIPID PANEL W CALCULATED LDL on 04-01-2022 Cholesterol [Mass/Vol] 238 mg/dL High NINF - 200 mg/dL [facility] Comment on above: [<200 mg/dL: Desirab le] [200-239 mg/dL: Borderline High] [>239 mg/dL: High] Cholesterol in HDL [Mass/Vol] 40 mg/dL 40 - PINF mg/dL [facility] Comment on above: [<40 mg/dL: Low (Hig h Risk)] [>59 mg/dL: High (Low Risk)] Cholesterol in HDL [Mass/Vol] 198 mg/dL High NINF - 130 mg/dL [facility] Cholesterol in LDL [Mass/Vol] 169 mg/dL High 0 - 99 mg/dL [facility] Comment on above: [<100 mg/dL: Optimal ] [100-129 mg/dL: Near Optimal] [130-159 mg/dL: Borderline High] [160-189 mg/dL: High] [>189 mg/dL: Very High] Cholesterol.total/Cho lesterol in HDL [Mass ratio] 6.0 {ratio} High NINF - 4.5 [facility] Interpretation and review of laboratory results Abnormal [facility] Triglyceride [Mass/Vol] 143 mg/dL NINF - 150 mg/dL [facility] Comment on above: [<150 mg/dL: Desirab le] [150-199 mg/dL: Borderline] [200-499 mg/dL: High] [>500 mg/dL: Very High] [facility] Calculated LDL Cholesterol 169 mg/dL High 0-99 [facility] Comment on above: Result Comment: [<10 0 mg/dL: Optimal] [100-129 mg/dL: Near Optimal] [130-159 mg/dL: Borderline High] [160-189 mg/dL: High] [>189 mg/dL: Very High] Performed By: #### C HM7 #### [facility] (DEFAULT) [address] [address] Cholesterol [Mass/Vol] 238 mg/dL High <200 [facility] Comment on above: Result Comment: [<20 0 mg/dL: Desirable] [200-239 mg/dL: Borderline High] [>239 mg/dL: High] Performed By: #### C HM7 #### [facility] (DEFAULT) [address] [place] [address]11 Cholesterol in HDL [Mass/Vol] 40 mg/dL Normal >=40 [facility] Comment on above: Result Comment: [<40 mg/dL: Low (High Risk)] [>59 mg/dL: High (Low Risk)] Performed By: #### C HM7 #### [facility] (DEFAULT) [address] [place] [address] 54750 Non HDL Cholesterol 198 mg/dL High <130 [facility] Comment on above: Performed By: #### C HM7 #### [facility] (DEFAULT) [address] [place] [address] 20656 Total Cholesterol/HDL Ratio 6.0 High <4.5 [facility] Comment on above: Performed By: #### C HM7 #### [facility] (DEFAULT) [address] [place] [address]897 Triglyceride [Mass/Vol] 143 mg/dL Normal <150 [facility] Comment on above: Result Comment: [<15 0 mg/dL: Desirable] [150-199 mg/dL: Borderline] [200-499 mg/dL: High] [>500 mg/dL: Very High] Performed By: #### C HM7 #### [facility] (DEFAULT) [address] [place] [address] 53211 PT,INR,PTTon 04-01-2022 aPTT Coag (Bld) [Time] 52.8 s High 24.0-34.3 [facility] Comment on above: Performed By: #### X M #### [facility] (DEFAULT) [address] [place] [address] 10130 INR Coag (PPP) [Relative time] 1.0 {INR} Normal 0.9-1.1 [facility] Comment on above: Performed By: #### X M #### [facility] (DEFAULT) [address] [place] [address]268 PT Coag (PPP) [Time] 13.7 s Normal 11.9-14.2 [facility] Comment on above: Performed By: #### X M #### [facility] (DEFAULT) [address] [place] [address]679 PT,INR,PTTOrdered By: Hieu Mccain on 04-01-2022 aPTT Coag (PPP) [Time] 52.8 s High [facility] INR Coag (Bld) [Relative time] 1.0 {INR} 0.9 - 1.1 [facility] Interpretation and review of laboratory results Abnormal [facility] PT Coag (PPP) [Time] 13.7 s [facility] PTTon 04-01-2022 aPTT Coag (Bld) [Time] 81.3 s High 24.0-34.3 [facility] Comment on above: Order Comment: Acute Coronary Syndrome (ACS): Initial Evaluation and Management: [email or web address] Performed By: #### L [id number] #### [facility] (DEFAULT) [address] [address] aPTT Coag (PPP) [Time] 81.3 s High [facility] Interpretation and review of laboratory results Abnormal [facility] SCREEN: MRSA/MSSAOrdered By: Jacobo Louis on 04-01-2022 Interpretation and review of laboratory results Normal [facility] Methicillin Resistant S. Aureus By Pcr Negative Negative [facility] Staphylococcus Aureus By Pcr Negative Negative [facility] This test was performed using a real [...] by the Clinical Microbiology Laboratory at [facility]. It has not been cleared or approved by the FDA.The laboratory is regulated under CLIA as qualified to perform high-complexity testing. This test is used for clinical purposes. It should not be regarded as investigational or for research. [facility] SCREEN: MRSA/MSSAon 04-01-19 Methicillin Resistant S. Aureus By Pcr Negative Normal Negative [facility] Comment on above: Order Comment: Colle ct [...] by the Clinical Microbiology Laboratory at [facility]. It has not been cleared or approved by the FDA.The laboratory is regulated under CLIA as qualified to perform high-complexity testing. This test is used for clinical purposes. It should not be regarded as investigational or for research. Performed By: #### S CRSB #### [facility] (DEFAULT) [address] [address] Staphylococcus Aureus By Pcr Negative Normal Negative [facility] Comment on above: Order Comment: Colle ct [...] by the Clinical Microbiology Laboratory at [facility]. It has not been cleared or approved by the FDA.The laboratory is regulated under CLIA as qualified to perform high-complexity testing. This test is used for clinical purposes. It should not be regarded as investigational or for research. Performed By: #### S CRSB #### [facility] (DEFAULT) [address] [address] CHEM 6 (LYTES, BUN CREA)on 0 03-31-2022 Anion gap [Moles/Vol] 11 mmol/L Normal 7-17 [facility] Comment on above: Performed By: #### C HM6 #### [facility] (DEFAULT) [address] [address] Chloride [Moles/Vol] 105 mmol/L Normal 98-108 [facility] Comment on above: Performed By: #### C HM6 #### [facility] (DEFAULT) [address] [place] [address] CO2 [Moles/Vol] 27 mmol/L Normal 21-31 [facility] Comment on above: Performed By: #### C HM6 #### [facility] (DEFAULT) [address] [place] [address]55 Creatinine [Mass/Vol] 0.69 mg/dL Normal 0.50-1.20 [facility] Comment on above: Performed By: #### C HM6 #### [facility] (DEFAULT) [address] [place] [address] 28791 GFR/1.73 sq M.predicted among non-blacks MDRD (S/P/Bld) [Vol rate/Area] 84 mL/min/{1.73_m2} Normal >=60 [facility] Comment on above: Result Comment: Repo rted eGFR is based on the CKD-EPI 2020 equation using creatinine, age, and sex. Performed By: #### C HM6 #### [facility] (DEFAULT) [address] [place] [address] Potassium [Moles/Vol] 4.3 mmol/L Normal 3.5-5.0 [facility] Comment on above: Performed By: #### C HM6 #### [facility] (DEFAULT) [address] [place] [address] Sodium [Moles/Vol] 139 mmol/L Normal 135-145 [facility] Comment on above: Performed By: #### C HM6 #### [facility] (DEFAULT) [address] [place] [address] Urea nitrogen [Mass/Vol] 26 mg/dL High 7-25 [facility] Comment on above: Performed By: #### C HM6 #### [facility] (DEFAULT) [address] [place] [address] Urea nitrogen/Creatinine [Mass ratio] 38 mg/mg Normal [facility] Comment on above: Performed By: #### C HM6 #### [facility] (DEFAULT) [address] [place] [address] Anion gap [Moles/Vol] 11 mmol/L 7 - 17 mmol/L [facility] Chloride [Moles/Vol] 105 mmol/L 98 - 10 8 mmol/L [facility] CO2 [Moles/Vol] 27 mmol/L 21 - 31 mmol/L [facility] Creatinine [Mass/Vol] 0.69 mg/dL 0.50 - 1.20 mg/dL [facility] GFR/1.73 sq M.predicted CKD-EPI (S/P/Bld) [Vol rate/Area] 84 - PINF [facility] Comment on above: Reported eGFR is bas ed on the CKD-EPI 2020 equation using creatinine, age, and sex. Interpretation and review of laboratory results Abnormal [facility] Potassium [Moles/Vol] 4.3 mmol/L 3.5 - 5.0 mmol/L [facility] Sodium [Moles/Vol] 139 mmol/L 135 - 145 mmol/L [facility] Urea nitrogen [Mass/Vol] 26 mg/dL High 7 - 25 mg/dL [facility] Urea nitrogen/Creatinine [Mass ratio] 38 mg/mg [facility] CONTINUOUS CARDIAC MONITORIN G STRIPon 03-31-2022 [facility] GLUCOSE POCon 03-31-2022 Glucose [Mass/Vol] 136 mg/dL High 70 - 99 mg/dL [facility] Interpretation and review of laboratory results Abnormal [facility] POC Sample Type CAPBL [facility] Test performed at address of the patient encounter. [facility] Glucose [Mass/Vol] 105 mg/dL High 70 - 99 mg/dL [facility] Interpretation and review of laboratory results Abnormal [facility] POC Sample Type CAPBL [facility] Test performed at address of the patient encounter. [facility] Glucose [Mass/Vol] 120 mg/dL High 70 - 99 mg/dL [facility] Interpretation and review of laboratory results Abnormal [facility] POC Sample Type CAPBL [facility] Test performed at address of the patient encounter. [facility] Glucose [Mass/Vol] 180 mg/dL High 70 - 99 mg/dL [facility] Interpretation and review of laboratory results Abnormal [facility] POC Sample Type CAPBL [facility] Test performed at address of the patient encounter. [facility] PTTon 03-31-2022 aPTT Coag (Bld) [Time] 74.4 s High 24.0-34.3 [facility] Comment on above: Order Comment: Acute Coronary Syndrome (ACS): Initial Evaluation and Management: [email or web address] Performed By: #### L [id number] #### [facility] (DEFAULT) [address] [address] aPTT Coag (PPP) [Time] 74.4 s High [facility] Interpretation and review of laboratory results Abnormal [facility] aPTT Coag (Bld) [Time] 60.3 s High 24.0-34.3 [facility] Comment on above: Order Comment: After initiation [...] instructions. Performed By: #### X M #### [facility] (DEFAULT) [address] [place] [address] aPTT Coag (PPP) [Time] 60.3 s High [facility] Interpretation and review of laboratory results Abnormal [facility] aPTT Coag (Bld) [Time] 83.9 s High 24.0-34.3 [facility] Comment on above: Order Comment: After initiation [...] instructions. Performed By: #### T YPEC #### [facility] (DEFAULT) [address] [address] aPTT Coag (PPP) [Time] 83.9 s High [facility] Interpretation and review of laboratory results Abnormal [facility] US.doppler Carotid arteries - bilateralOrdered By: Ryley Allison on 03-31-2022 [facility] Work Phone: CONTINUOUS CARDIAC MONITORIN G STRIPon 03-30-2022 [facility] GLUCOSE POCon 03-30-2022 Glucose [Mass/Vol] 192 mg/dL High 70 - 99 mg/dL [facility] Interpretation and review of laboratory results Abnormal [facility] POC Sample Type CAPBL [facility] Test performed at address of the patient encounter. [facility] Glucose [Mass/Vol] 221 mg/dL High 70 - 99 mg/dL [facility] Interpretation and review of laboratory results Abnormal [facility] POC Sample Type CAPBL [facility] Test performed at address of the patient encounter. [facility] Glucose [Mass/Vol] 184 mg/dL High 70 - 99 mg/dL [facility] Comment on above: Notified RNread back Interpretation and review of laboratory results Abnormal [facility] POC Sample Type CAPBL [facility] Test performed at address of the patient encounter. [facility] Glucose [Mass/Vol] 167 mg/dL High 70 - 99 mg/dL [facility] Comment on above: Notified RNread back Interpretation and review of laboratory results Abnormal [facility] POC Sample Type CAPBL [facility] Test performed at address of the patient encounter. [facility] Glucose [Mass/Vol] 171 mg/dL High 70 - 99 mg/dL [facility] Interpretation and review of laboratory results Abnormal [facility] POC Sample [facility] Test performed at address of the patient encounter. [facility] PTTon 03-30-2022 aPTT Coag (Bld) [Time] 81.9 s High 24.0-34.3 [facility] Comment on above: Order Comment: After initiation [...] administration instructions. Performed By: #### P TT ####[facility] (DEFAULT)[address] [place] [address] aPTT Coag (PPP) [Time] 81.9 s High [facility] Interpretation and review of laboratory results Abnormal [facility] aPTT Coag (Bld) [Time] 56.4 s High 24.0-34.3 [facility] Comment on above: Order Comment: After initiation [...] instructions. Performed By: #### X M #### [facility] (DEFAULT) [address] [address] aPTT Coag (PPP) [Time] 56.4 s High [facility] Interpretation and review of laboratory results Abnormal [facility] aPTT Coag (Bld) [Time] 57.0 s High 24.0-34.3 [facility] Comment on above: Order Comment: After initiation [...] results Performed By: #### C HM6 #### [facility] (DEFAULT) [address] [address] PTTOrdered By: Ralf meza on 03-30-2022 aPTT Coag (PPP) [Time] 57.0 s High [facility] Comment on above: Specimen integrity nancy jolly. Results inconsistent with previous results Interpretation and review of laboratory results Abnormal [facility] US.doppler Carotid arteries - bilateralon 03-30-2022 Radiology Study observation (narrative) [facility] XR PANOREX (TEETH)on 023 XR PANOREX (TEETH) [...] periapical radiolucencies at the remaining dentition. Normal [facility] XR Teeth Bitewing Viewson FINDINGS/IMPRESSION: Nasal septum [...] or periapical radiolucencies at the remaining dentition. [facility] Radiology Study observation (narrative) [facility] XR Teeth Bitewing ViewsOrder ed By: Domenic Stoner on 03-30-2022 [facility] Work Phone: CALCIUMon 03-29-2022 Calcium [Mass/Vol] 9.1 mg/dL Normal 8.6-10.5 [facility] Comment on above: Performed By: #### S CRSB #### [facility] (DEFAULT) [address] [place] [address] Calcium [Mass/Vol] 9.1 mg/dL 8.6 - 10. 5 mg/dL [facility] CBC AND ELECTRONIC DIFFon Basophils (Bld) [#/Vol] 0.06 10*3/uL Normal 0.00-0.15 [facility] Comment on above: Performed By: #### L [id number] ####[facility] (DEFAULT)[address] [place] [address] Basophils/100 WBC (Bld) 0.8 % Normal [facility] Comment on above: Performed By: #### L [id number] ####[facility] (DEFAULT)[address] [place] [address] DIFF STATUS Electronic Differential Normal [facility] Comment on above: Performed By: #### L [id number] ####[facility] (DEFAULT)[address] [place] [address] Eosinophils (Bld) [#/Vol] 0.32 10*3/uL Normal 0.00-0.42 [facility] Comment on above: Performed By: #### L [id number] ####[facility] (DEFAULT)[address] [place] [address] Eosinophils/100 WBC (Bld) 4.2 % Normal [facility] Comment on above: Performed By: #### L [id number] ####[facility] (DEFAULT)[address] [place] [address] Hematocrit (Bld) [Volume fraction] 39.9 % Normal 34.9-44.3 [facility] Comment on above: Performed By: #### L [id number] ####[facility] (DEFAULT)[address] [place] [address] Hemoglobin (Bld) [Mass/Vol] 13.1 g/dL Normal 11.4-15.2 [facility] Comment on above: Performed By: #### L [id number] ####[facility] (DEFAULT)[address] [place], [place] [address], [place] [address] Immature Grans % 0.4 % Normal [facility] Comment on above: Performed By: #### L [id number] ####[facility] (DEFAULT)[address] [place] [address], [place] [address] Immature Grans Absolute < Normal <=0.08 [facility] Comment on above: Performed By: #### L [id number] ####[facility] (DEFAULT)[address] [place] [address], [place] [address] Lymphocytes (Bld) [#/Vol] 2.52 10*3/uL Normal 1.16-3.51 [facility] Comment on above: Performed By: #### L [id number] ####[facility] (DEFAULT)[address] [place] [address], [place] [address] Lymphocytes/100 WBC (Bld) 33.2 % Normal [facility] Comment on above: Performed By: #### L [id number] ####[facility] (DEFAULT)[address] [place] [address], [place] [address] MCV (RBC) [Entitic vol] 85.8 fL Normal 79.6-97.7 [facility] Comment on above: Performed By: #### L [id number] ####[facility] (DEFAULT)[address] [place] [address] Mean Cell Hgb 28.2 pg Normal 25.9-33.9 [facility] Comment on above: Performed By: #### L [id number] ####[facility] (DEFAULT)[address] [facility] [place] [address] Mean Cell Hgb Conc 32.8 g/dL Normal 31.4-35.9 [facility] Comment on above: Performed By: #### L [id number] ####[facility] (DEFAULT)[address] [facility] [place] [address] Monocytes (Bld) [#/Vol] 0.84 10*3/uL Normal 0.22-0.87 [facility] Comment on above: Performed By: #### L [id number] ####[facility] (DEFAULT)[address] [facility] [place] [address] Monocytes/100 WBC (Bld) 11.1 % Normal [facility] Comment on above: Performed By: #### L [id number] ####[facility] (DEFAULT)[address] [place] [address] Nucleated RBC 0.0 /100 WBC Normal <=0.2 [facility] Comment on above: Performed By: #### L [id number] ####[facility] (DEFAULT)[address] [place] [address] Platelet mean volume (Bld) [Entitic vol] 10.4 fL Normal 8.5-12.2 [facility] Comment on above: Performed By: #### L [id number] ####[facility] (DEFAULT)[address] [place] [address] Platelets (Bld) [#/Vol] 267 10*3/uL Normal 150-393 [facility] Comment on above: Performed By: #### L [id number] ####[facility] (DEFAULT)[address] [place] [address] RBC (Bld) [#/Vol] 4.65 10*6/uL Normal 3.91-5.04 [facility] Comment on above: Performed By: #### L [id number] ####[facility] (DEFAULT)[address] [place] [address] RBC Distribution 13.0 % Normal 10.8-14.9 [facility] Comment on above: Performed By: #### L [id number] ####[facility] (DEFAULT)[address] [place] [address] Segs + Bands Auto 50.3 % Normal [facility] Comment on above: Performed By: #### L [id number] ####[facility] (DEFAULT)[address] [place] [address] Segs + Bands,Absolute Auto 3.81 K/uL Normal 1.64-7.28 [facility] Comment on above: Performed By: #### L [id number] ####[facility] (DEFAULT)[address] [place] [address] WBC (Bld) [#/Vol] 7.58 10*3/uL Normal 3.99-11.19 [facility] Comment on above: Performed By: #### L [id number] ####[facility] (DEFAULT)[address] [place] [address] Basophils (Bld) [#/Vol] 0.06 10*3/uL 0.00 - 0.15 K/uL [facility] Basophils/100 WBC (Bld) 0.8 % [facility] Differential cell count method Nom (Bld) Electronic Differential [facility] Eosinophils (Bld) [#/Vol] 0.32 10*3/uL 0.00 - 0.42 K/uL [facility] Eosinophils/100 WBC (Bld) 4.2 % [facility] Erythrocyte distribution width (RBC) [Ratio] 13.0 % 10.8 - 14.9 % [facility] Hematocrit (Bld) [Volume fraction] 39.9 % 34.9 - 44.3 % [facility] Hemoglobin (Bld) [Mass/Vol] 13.1 g/dL 11.4 - 15.2 g/dL [facility] Immature granulocytes (Bld) [#/Vol] K/uL NINF - 0.08 K/uL [facility] Immature granulocytes/100 WBC (Bld) 0.4 % [facility] Lymphocytes (Bld) [#/Vol] 2.52 10*3/uL 1.16 - 3.51 K/uL [facility] Lymphocytes/100 WBC (Bld) 33.2 % [facility] MCH (RBC) [Entitic mass] 28.2 pg 25.9 - 33.9 pg [facility] MCHC (RBC) [Mass/Vol] 32.8 g/dL 31.4 - 35.9 g/dL [facility] MCV (RBC) [Entitic vol] 85.8 fL 79.6 - 97.7 fL [facility] Monocytes (Bld) [#/Vol] 0.84 10*3/uL 0.22 - 0.87 K/uL [facility] Monocytes/100 WBC (Bld) 11.1 % [facility] Neutrophils (Bld) [#/Vol] 3.81 10*3/uL 1.64 - 7.28 K/uL [facility] Nucleated RBC/100 WBC (Bld) [Ratio] 0.0 % [facility] Platelet mean volume (Bld) [Entitic vol] 10.4 fL 8.5 - 12.2 fL [facility] Platelets (Bld) [#/Vol] 267 10*3/uL 150 - 393 K/uL [facility] RBC (Bld) [#/Vol] 4.65 10*6/uL [facility] Segmented neutrophils/100 WBC (Bld) 50.3 % [facility] WBC (Bld) [#/Vol] 7.58 10*3/uL 3.99 - 11. 19 K/uL [facility] CBC,PLATELETSon 03-29-2022 Hematocrit (Bld) [Volume fraction] 36.3 % Normal 34.9-44.3 [facility] Comment on above: Performed By: #### C [facility] #### [facility] (DEFAULT) [address] [address] Hemoglobin (Bld) [Mass/Vol] 12.0 g/dL Normal 11.4-15.2 [facility] Comment on above: Performed By: #### C HM7 #### [facility] (DEFAULT) [address] [address] MCV (RBC) [Entitic vol] 86.4 fL Normal 79.6-97.7 [facility] Comment on above: Performed By: #### C HM7 #### [facility] (DEFAULT) [address] [address] Mean Cell Hgb 28.6 pg Normal 25.9-33.9 [facility] Comment on above: Performed By: #### C HM7 #### [facility] (DEFAULT) [address] [address] Mean Cell Hgb Conc 33.1 g/dL Normal 31.4-35.9 [facility] Comment on above: Performed By: #### C HM7 #### [facility] (DEFAULT) [address] [address] Platelet mean volume (Bld) [Entitic vol] 10.5 fL Normal 8.5-12.2 [facility] Comment on above: Performed By: #### C HM7 #### [facility] (DEFAULT) [address] [address] Platelets (Bld) [#/Vol] 233 10*3/uL Normal 150-393 [facility] Comment on above: Performed By: #### C HM7 #### [facility] (DEFAULT) [address] [address] RBC (Bld) [#/Vol] 4.20 10*6/uL Normal 3.91-5.04 [facility] Comment on above: Performed By: #### C HM7 #### [facility] (DEFAULT) [address] [place] [address] RBC Distribution 12.9 % Normal 10.8-14.9 [facility] Comment on above: Performed By: #### C HM7 #### [facility] (DEFAULT) [address] [place] [address] WBC (Bld) [#/Vol] 7.07 10*3/uL Normal 3.99-11.19 [facility] Comment on above: Performed By: #### C HM7 #### [facility] (DEFAULT) [address] [place] [address] Erythrocyte distribution width (RBC) [Ratio] 12.9 % 10.8 - 14.9 % [facility] Hematocrit (Bld) [Volume fraction] 36.3 % 34.9 - 44.3 % [facility] Hemoglobin (Bld) [Mass/Vol] 12.0 g/dL 11.4 - 15.2 g/dL [facility] Interpretation and review of laboratory results Normal [facility] MCH (RBC) [Entitic mass] 28.6 pg 25.9 - 33.9 pg [facility] MCHC (RBC) [Mass/Vol] 33.1 g/dL 31.4 - 35.9 g/dL [facility] MCV (RBC) [Entitic vol] 86.4 fL 79.6 - 97.7 fL [facility] Platelet mean volume (Bld) [Entitic vol] 10.5 fL 8.5 - 12.2 fL [facility] Platelets (Bld) [#/Vol] 233 10*3/uL 150 - 393 K/uL [facility] RBC (Bld) [#/Vol] 4.20 10*6/uL [facility] WBC (Bld) [#/Vol] 7.07 10*3/uL 3.99 - 11. 19 K/uL [facility] CHEM 7 (LYTES,BUN,CREA,GLUC) on 03-29-2022 Anion gap [Moles/Vol] 12 mmol/L Normal 7-17 [facility] Comment on above: Performed By: #### S CRSB #### [facility] (DEFAULT) [address] [place] [address] Chloride [Moles/Vol] 104 mmol/L Normal 98-108 [facility] Comment on above: Performed By: #### S CRSB #### [facility] (DEFAULT) [address] [place] [address] CO2 [Moles/Vol] 27 mmol/L Normal 21-31 [facility] Comment on above: Performed By: #### S CRSB #### [facility] (DEFAULT) [address] [place] [address] Creatinine [Mass/Vol] 0.75 mg/dL Normal 0.50-1.20 [facility] Comment on above: Performed By: #### S CRSB #### [facility] (DEFAULT) [address] [place] [address] GFR/1.73 sq M.predicted among non-blacks MDRD (S/P/Bld) [Vol rate/Area] 77 mL/min/{1.73_m2} Normal >=60 [facility] Comment on above: Result Comment: Repo rted eGFR is based on the CKD-EPI 2020 equation using creatinine, age, and sex. Performed By: #### S CRSB #### [facility] (DEFAULT) [address] [place] [address] Glucose [Mass/Vol] 263 mg/dL High 70-99 [facility] Comment on above: Performed By: #### S CRSB #### [facility] (DEFAULT) [address] [place] [address] Osmolality [Osmolality] 308 mosm/kg High 278-305 [facility] Comment on above: Performed By: #### S CRSB #### [facility] (DEFAULT) [address] [place] [address] Potassium [Moles/Vol] 4.0 mmol/L Normal 3.5-5.0 [facility] Comment on above: Performed By: #### S CRSB #### [facility] (DEFAULT) [address] [place] [address] Sodium [Moles/Vol] 139 mmol/L Normal 135-145 [facility] Comment on above: Performed By: #### S CRSB #### [facility] (DEFAULT) [address] [place] [address] Urea nitrogen [Mass/Vol] 32 mg/dL High 7-25 [facility] Comment on above: Performed By: #### S CRSB #### [facility] (DEFAULT) [address] [place] [address] Urea nitrogen/Creatinine [Mass ratio] 43 mg/mg Normal [facility] Comment on above: Performed By: #### S CRSB #### [facility] (DEFAULT) [address] [place] [address] Anion gap [Moles/Vol] 12 mmol/L 7 - 17 mmol/L [facility] Chloride [Moles/Vol] 104 mmol/L 98 - 10 8 mmol/L [facility] CO2 [Moles/Vol] 27 mmol/L 21 - 31 mmol/L [facility] Creatinine [Mass/Vol] 0.75 mg/dL 0.50 - 1.20 mg/dL [facility] GFR/1.73 sq M.predicted CKD-EPI (S/P/Bld) [Vol rate/Area] 77 - PINF [facility] Comment on above: Reported eGFR is bas ed on the CKD-EPI 2020 equation using creatinine, age, and sex. Glucose [Mass/Vol] 263 mg/dL High 70 - 99 mg/dL [facility] Osmolality Calc [Osmolality] 308 High [facility] Potassium [Moles/Vol] 4.0 mmol/L 3.5 - 5.0 mmol/L [facility] Sodium [Moles/Vol] 139 mmol/L 135 - 145 mmol/L [facility] Urea nitrogen [Mass/Vol] 32 mg/dL High 7 - 25 mg/dL [facility] Urea nitrogen/Creatinine [Mass ratio] 43 mg/mg [facility] CONTINUOUS CARDIAC MONITORIN G STRIPon 03-29-2022 [facility] GLUCOSE POCon 03-29-2022 Glucose [Mass/Vol] 148 mg/dL High 70 - 99 mg/dL [facility] Interpretation and review of laboratory results Abnormal [facility] POC Sample Type CAPBL [facility] Test performed at address of the patient encounter. [facility] Glucose [Mass/Vol] 179 mg/dL High 70 - 99 mg/dL [facility] Interpretation and review of laboratory results Abnormal [facility] POC Sample Type CAPBL [facility] Test performed at address of the patient encounter. [facility] Glucose [Mass/Vol] 145 mg/dL High 70 - 99 mg/dL [facility] Interpretation and review of laboratory results Abnormal [facility] POC Sample Type CAPBL [facility] r [facility] Test performed at address of the patient encounter. [facility] HEPATIC FUNCTION PANELon Albumin [Mass/Vol] 3.6 g/dL Normal 3.5-5.0 [facility] Comment on above: Performed By: #### S CRSB #### [facility] (DEFAULT) [address] [address] ALP [Catalytic activity/Vol] 66 U/L Normal 32-126 [facility] Comment on above: Performed By: #### S CRSB #### [facility] (DEFAULT) [address] [address] ALT [Catalytic activity/Vol] 29 U/L Normal 9-48 [facility] Comment on above: Performed By: #### S CRSB #### [facility] (DEFAULT) [address] [place] [address] AST [Catalytic activity/Vol] 24 U/L Normal 10-39 [facility] Comment on above: Performed By: #### S CRSB #### [facility] (DEFAULT) [address] [place] [address] Bilirubin [Mass/Vol] 0.4 mg/dL Normal <1.5 [facility] Comment on above: Performed By: #### S CRSB #### [facility] (DEFAULT) [address] [place] [address] Bilirubin Direct < Normal <0.3 [facility] Comment on above: Performed By: #### S CRSB #### [facility] (DEFAULT) [address] [place] [address] Protein [Mass/Vol] 5.8 g/dL Low 6.4-8.3 [facility] Comment on above: Performed By: #### S CRSB #### [facility] (DEFAULT) [address] [place] [address] Albumin [Mass/Vol] 3.6 g/dL 3.5 - 5.0 g/dL [facility] ALP [Catalytic activity/Vol] 66 U/L 32 - 126 U/L [facility] ALT [Catalytic activity/Vol] 29 U/L 9 - 48 U/L [facility] AST [Catalytic activity/Vol] 24 U/L 10 - 39 U/L [facility] Bilirubin [Mass/Vol] 0.4 mg/dL NINF - 1.5 mg/dL [facility] Bilirubin.direct [Mass/Vol] mg/dL NINF - 0.3 mg/dL [facility] Protein [Mass/Vol] 5.8 g/dL Low 6.4 - 8.3 g/dL [facility] HIGH SENSITIVITY TROPONIN I - SINGLE ORDERon 03-29-2022 hs-Troponin I 73 ng/L High <34 [facility] Comment on above: Order Comment: Acute Coronary Syndrome (ACS): Initial Evaluation and Management:[email or web address]/Documents/Guide lines/Acute%20Coronary%20Syndrome.[email or web address] Performed By: #### L [email or web address] ####[facility] (DEFAULT)[address] [address] hs-Troponin I 101 ng/L High <34 [facility] Comment on above: Order Comment: Colle ct [...] by the Clinical Microbiology Laboratory at [facility]. It has not been cleared or approved by the FDA.The laboratory is regulated under CLIA as qualified to perform high-complexity testing. This test is used for clinical purposes. It should not be regarded as investigational or for research. Performed By: #### S CRSB #### [facility] (DEFAULT) [address] [place] [address] HIGH SENSITIVITY TROPONIN I - SINGLE ORDEROrdered By: Maegan Recio on 03-29-2022 Interpretation and review of laboratory results Abnormal [facility] Troponin I.cardiac DL <= 0.01 ng/mL [Mass/Vol] 73 ng/L High NINF - 34 ng/L [facility] HIGH SENSITIVITY TROPONIN I - SINGLE ORDEROrdered By: Steve Barry on 03-29-2022 Interpretation and review of laboratory results Abnormal [facility] Troponin I.cardiac DL <= 0.01 ng/mL [Mass/Vol] 101 ng/L High NINF - 34 ng/L [facility] MAGNESIUMon 03-29-2022 Magnesium [Mass/Vol] 2.0 mg/dL Normal 1.6-2.6 [facility] Comment on above: Order Comment: Medic ine Electrolyte Replacement Protocol: Check prior to replacing potassium. Recheck magnesium level eight (8) hours after each 4g Magnesium Sulfate dose if most recent magnesium level is less than 1.3 mg/dL. ?Draw with next day morning labs after replacements for previous magnesium levels between 1.3-1.9 mg/dL. Performed By: #### C HM6 #### [facility] (DEFAULT) [address] [place] [address] Magnesium [Mass/Vol] 2.0 mg/dL 1.6 - 2 .6 mg/dL [facility] Magnesium [Mass/Vol] 2.1 mg/dL Normal 1.6-2.6 [facility] Comment on above: Performed By: #### S CRSB #### [facility] (DEFAULT) [address] [place] [address] Magnesium [Mass/Vol] 2.1 mg/dL 1.6 - 2 .6 mg/dL [facility] No Panel Informationon 03-29 Interpretation and review of laboratory results Normal [facility] Interpretation and review of laboratory results Normal [facility] Interpretation and review of laboratory results Abnormal [facility] PHOSPHATE, INORGANICon 03-29 Phosphorous 3.9 mg/dL Normal 2.2-4.6 [facility] Comment on above: Performed By: #### S CRSB #### [facility] (DEFAULT) [address] [place] [address] Phosphate [Mass/Vol] 3.9 mg/dL 2.2 - 4 .6 mg/dL [facility] POTASSIUMon 03-29-2022 Potassium [Moles/Vol] 4.6 mmol/L Normal 3.5-5.0 [facility] Comment on above: Order Comment: Medic ine Electrolyte Replacement Protocol: Recheck eight hours after each dose of Potassium chloride (60 mEq or 80 mEq) if most recent Potassium is less than 3.5 mmol/L. ?Draw with next day morning labs after 40 mEq dose of Potassium chloride. Performed By: #### C HM6 #### [facility] (DEFAULT) [address] [place] [address] Potassium [Moles/Vol] 4.6 mmol/L 3.5 - 5.0 mmol/L [facility] PT,INR,PTTon 03-29-2022 aPTT Coag (Bld) [Time] 28.1 s Normal 24.0-34.3 [facility] Comment on above: Performed By: #### C HM6 #### [facility] (DEFAULT) [address] [place] [address] INR Coag (PPP) [Relative time] 1.0 {INR} Normal 0.9-1.1 [facility] Comment on above: Performed By: #### C HM6 #### [facility] (DEFAULT) [address] [place] [address] PT Coag (PPP) [Time] 12.8 s Normal 11.9-14.2 [facility] Comment on above: Performed By: #### C HM6 #### [facility] (DEFAULT) [address] [place] [address] aPTT Coag (PPP) [Time] 28.1 s [facility] INR Coag (Bld) [Relative time] 1.0 {INR} 0.9 - 1.1 [facility] Interpretation and review of laboratory results Normal [facility] PT Coag (PPP) [Time] 12.8 s [facility] PTTon 03-29-2022 aPTT Coag (Bld) [Time] 27.1 s Normal 24.0-34.3 [facility] Comment on above: Order Comment: Colle ct [...] by the Clinical Microbiology Laboratory at [facility]. It has not been cleared or approved by the FDA.The laboratory is regulated under CLIA as qualified to perform high-complexity testing. This test is used for clinical purposes. It should not be regarded as investigational or for research. Performed By: #### S CRSB #### [facility] (DEFAULT) [address] [address] aPTT Coag (PPP) [Time] 27.1 s [facility] Interpretation and review of laboratory results Normal [facility] TROPONIN 1 HOURon 03-29-2022 1 Hour hs-Troponin 77 ng/L High <34 [facility] Comment on above: Order Comment: Acute Coronary Syndrome (ACS): Initial Evaluation and Management:[email or web address]/Documents/Guide lines/Acute%20Coronary%20Syndrome.pdf#search=[email or web address] Performed By: #### C HM6 #### [facility] (DEFAULT) [address] [place] [address] [place] hs-Troponin I 10 ng/L Normal <=15 [facility] Comment on above: Order Comment: Acute Coronary Syndrome (ACS): Initial Evaluation and Management:[email or web address]/Documents/Guide lines/Acute%20Coronary%20Syndrome.pdf#search=troponin Performed By: #### C HM6 #### [facility] (DEFAULT) [address] [address] 1 Hour hs-Troponin 77 ng/L High NINF - 34 ng/L [facility] [place] hs-Troponin I 10 ng/L NINF - 1 5 ng/L [facility] Interpretation and review of laboratory results Abnormal [facility] TROPONIN I INITIALon 022 hs-Troponin I 67 ng/L High <34 [facility] Comment on above: Order Comment: Acute Coronary Syndrome (ACS): Initial Evaluation and Management:[email or web address]/Documents/Guide lines/Acute%20Coronary%20Syndrome.pdf#search=[email or web address] Performed By: #### C HM6 #### [facility] (DEFAULT) [address] [place] [address] Interpretation and review of laboratory results Abnormal [facility] Troponin I.cardiac DL <= 0.01 ng/mL [Mass/Vol] 67 ng/L High NINF - 34 ng/L [facility] CONTINUOUS CARDIAC MONITORIN G STRIPOrdered By: Unassigned Pacs on 03-28-2022 [facility] Work Phone: Glucose Glucometer (BldC) [M ass/Vol]Ordered By: Dr. Sands on 03-28-2022 Glucose [Mass/Vol] 194 mg/dL 74-106 [facility] Comment on above: MANAGEMENT OF PATIEN T CARE PER NURSING PROTOCOL Absolute lymphocyte countOrd ered By: Dr. Malin on 03-26-2022 Lymphocytes Auto (Unsp spec) [#/Vol] 1.66 10*3/uL 0.83-4.51 [facility] Basophil percentageOrdered B y: Dr. Malin on 03-26-2022 Basophils/100 WBC (Bld) 0.9 % 0-1 [facility] Chloride [Moles/Vol] 105 mmol/L 98-107 [facility] Eosinophils/100 WBC (Bld) 4.6 % 0-5 [facility] Glucose [Mass/Vol] 166 mg/dL 74-106 [facility] Comment on above: Fasting Glucose resu lt greater than or equal to 126 mg/dL suggests DIABETES MELLITUS per A.D.A. criteria. Neutrophils (Bld) [#/Vol] 4.3 10*3/uL 2.0-7.7 [facility] Neutrophils/100 WBC (Bld) 60.8 % 47-70 [facility] Potassium [Moles/Vol] 4.1 mmol/L 3.5-5.1 [facility] Sodium [Moles/Vol] 139 mmol/L 136-145 [facility] WBC (Bld) [#/Vol] 7.0 10*3/uL 4.4-11.0 [facility] Blood erythrocytes count (nu mber/volume)Ordered By: Dr. Malin on 03-26-2022 RBC (Bld) [#/Vol] 4.86 10*6/uL 4.2-5.4 [facility] Blood hemoglobin measurement (mass/volume)Ordered By: Dr. Malin on 03-26-2022 Hemoglobin (Bld) [Mass/Vol] 14.1 g/dL 12.0-15.0 [facility] Blood lymphocytes/100 leukoc ytesOrdered By: Dr. Malin on 03-26-2022 Lymphocytes/100 WBC (Bld) 23.6 % 19-41 [facility] Blood monocytes/100 leukocyt esOrdered By: Dr. Malin on 03-26-2022 Monocytes/100 WBC (Bld) 9.8 % 0-10 [facility] Blood platelet mean volumeOr dered By: Dr. Malin on 03-26-2022 Platelet mean volume (Bld) [Entitic vol] 10.6 fL 6.2-12.0 [facility] Determination of erythrocyte mean corpuscular volume (MCV)Ordered By: Dr. Malin on 03-26-2022 MCV (RBC) [Entitic vol] 86.6 fL 81-99 [facility] Hematocrit Auto (Bld) [Volum e fraction]Ordered By: Dr. Malin on 03-26-2022 Hematocrit (Bld) [Volume fraction] 42.1 % 37-47 [facility] Laboratory - Chemistry and C hemistry - challengeOrdered By: Dr. Malin on 03-26-2022 CO2 [Moles/Vol] 27.0 mmol/L 21.0-32.0 [facility] Urea nitrogen/Creatinine [Mass ratio] 40.5 mg/mg 10-20 [facility] Laboratory - Hematology and Cell countsOrdered By: Dr. Malin on 03-26-2022 Erythrocyte distribution width (RBC) [Entitic vol] 39.9 fL 35.1-43.9 [facility] Erythrocyte distribution width (RBC) [Ratio] 12.7 % 11.6-14.6 [facility] Immature granulocytes/100 WBC (Bld) 0.300 % 0.0-0.9 [facility] Comment on above: IG% - Immature Granu locytes (promyelocytes, myelocytes and metamyelocytes) > 1% indicates that a LEFT SHIFT is Present. MCH (RBC) [Entitic mass] 29.0 pg 27.0-32.0 [facility] Nucleated RBC/100 WBC (Bld) [Ratio] 0 % 0-5 [facility] MCHC Auto (RBC) [Mass/Vol]Or dered By: Dr. Malin on 03-26-2022 MCHC (RBC) [Mass/Vol] 33.5 g/dL 32-36 [facility] No Panel InformationOrdered By: Dr. Malin on 03-26-2022 Estimated Creatinine Clearance Calc 38.86 ml/min [facility] Estimated GFR (MDRD) Amer 137 mL/min >60 [facility] Comment on above: GFR Calc Estimated GFR (MDRD) Non-Af Amer 113 mL/min >60 [facility] Comment on above: Non- GFR Calc Platelets bldOrdered By: Dr. Malin on 03-26-2022 Platelets (Bld) [#/Vol] 234 10*3/uL 150-450 [facility] Serum or plasma calcium neris urement (mass/volume)Ordered By: Dr. Malin on 03-26-2022 Calcium [Mass/Vol] 9.1 mg/dL 8.5-10.1 [facility] Serum or plasma creatinine m easurement (mass/volume)Ordered By: Dr. Malin on 03-26-2022 Creatinine [Mass/Vol] 0.54 mg/dL 0.55-1.02 [facility] Comment on above: The validity of the calculated GFR & GFRAA in patients over 70 years has not been determined. Clinical correlation is essential. Serum or plasma urea nitroge n measurement (mass/volume)Ordered By: Dr. Malin on 03-26-2022 Urea nitrogen [Mass/Vol] 22 mg/dL 7-18 [facility] Thin prep Papanicolaou smear with manual screeningOrdered By: Dr. Malin on 03-26-2022 Thin prep Papanicolaou smear with manual screening 7 5-15 [facility] Laboratory - Chemistry and C hemistry - challengeOrdered By: Dr. Malin on 03-24-2022 Magnesium [Mass/Vol] 2.1 mg/dL 1.6-2.6 [facility] No Panel InformationOrdered By: Dr. Davison on 03-24-2022 Troponin I High Sensitivity 982 pg/mL 3.0-54.0 [facility] Comment on above: Critical Result(s) C alled at: 00:43:48 03/25/2022 by: Johnathon Boyer TO Neftali ROME RN (U) Results read back by same. Please Note: New Test Units and Gender Specific Reference Ranges. For more information see Policy Stat Procedure [place] High Sensitivity Troponin (TNIH) and attachments. Basophil percentageOrdered B y: Dr. Callejas on 03-22-2022 Bilirubin [Mass/Vol] 0.90 mg/dL 0.20-1.00 [facility] Comment on above: For patients on eltr ombopag therapy, use of Dimension [place] TBIL is not recommended. Protein [Mass/Vol] 5.6 g/dL 6.4-8.2 [facility] Laboratory - Chemistry and C hemistry - challengeOrdered By: Dr. Callejas on 03-22-2022 ALP [Catalytic activity/Vol] 47 U/L 45-117 [facility] ALT [Catalytic activity/Vol] 30 U/L 13-56 [facility] Globulin (S) [Mass/Vol] 2.8 g/dL 2.2-4.2 [facility] Serum or plasma albumin neris urement (mass/volume)Ordered By: Dr. Callejas on 03-22-2022 Albumin [Mass/Vol] 2.8 g/dL 3.2-5.0 [facility] Serum or plasma albumin/glob ulin mass ratioOrdered By: Dr. Callejas on 03-22-2022 Albumin/Globulin [Mass ratio] 1.0 {ratio} 0.9-2.4 [facility] Thin prep Papanicolaou smear with manual screeningOrdered By: Dr. Callejas on 03-22-2022 Thin prep Papanicolaou smear with manual screening 36 U/L 15-37 [facility] Base excessOrdered By: Dr. Danuta lawson on 03-21-2022 Base excess Calc (BldV) [Moles/Vol] 2 mmol/L -2-2 [facility] Basophil percentageOrdered B y: Dr. Callejas on 03-21-2022 Basophil percentage 25.9 mmol/L - [facility] Basophils/100 WBC (Bld) 91 % 95-99 [facility] CO2 (BldA) [Partial pressure ]Ordered By: Dr. Callejas on 03-21-2022 CO2 (Bld) [Partial pressure] 36.1 mm[Hg] 35-45 [facility] HCO3 (BldA) [Moles/Vol]Order ed By: Dr. Callejas on 03-21-2022 HCO3 (Bld) [Moles/Vol] 30 mmol/L - [facility] Laboratory - Chemistry and C hemistry - challengeOrdered By: Dr. Callejas on 03-21-2022 CO2 [Moles/Vol] 31 mmol/L 23- [facility] No Panel InformationOrdered By: Dr. Callejas on 03-21-2022 Bed Mix Venous Bld PCO2 at Pat Temp 44.9 mmHg 41-51 [facility] Blood Gas Specimen Type RUPERT [facility] Venous Blood Base Excess 5 mmol/L -1.0-3.5 [facility] Blood Gas Total CO2 27 mmol/L [facility] Oxygen (BldA) [Partial press ure]Ordered By: Dr. Callejas on 03-21-2022 Oxygen (Bld) [Partial pressure] 57 mmHG 75-100 [facility] PO2 venousOrdered By: Dr. Cherelle love on 03-21-2022 Oxygen (BldV) [Partial pressure] 33 mm[Hg] 25-40 [facility] Vital signsOrdered By: Dr. Danuta lawson on 03-21-2022 Oxygen saturation in Blood 64 % 50-70 [facility] pH measurementOrdered By: Dr Shekhar Callejas on 03-21-2022 pH (Unsp spec) 7.43 [pH] 7.32-7.42 [facility] pH (Unsp spec) 7.46 [pH] 7.35-7.45 [facility] Absolute lymphocyte counton 03-20-2022 Lymphocytes Auto (Unsp spec) [#/Vol] 5.34 10*3/uL 0.83-4.51 [facility] Work Phone: [phone] Base excesson 03-20-2022 Base excess Calc (BldV) [Moles/Vol] -3 mmol/L -2-2 [facility] Work Phone: [phone] Basophil percentageon 2021 Basophil percentage 22.6 mmol/L 22- [facility] Work Phone: Basophils/100 WBC (Bld) 97 % 95-99 [facility] Work Phone: [phone] Basophils/100 WBC (Bld) 0.6 % 0-1 [facility] Work Phone: [phone] Chloride [Moles/Vol] 106 mmol/L 98-107 [facility] Work Phone: Eosinophils/100 WBC (Bld) 1.8 % 0-5 [facility] Work Phone: Glucose [Mass/Vol] 368 mg/dL 74-106 [facility] Work Phone: Comment on above: Glucose result great er than or equal to 200 mg/dLsuggests DIABETES MELLITUS per A.D.A. criteria. Neutrophils (Bld) [#/Vol] 7.2 10*3/uL 2.0-7.7 [facility] Work Phone: Neutrophils/100 WBC (Bld) 52.0 % 47-70 [facility] Work Phone: [phone] Potassium [Moles/Vol] 4.0 mmol/L 3.5-5.1 [facility] Work Phone: [phone] Sodium [Moles/Vol] 138 mmol/L 136-145 [facility] Work Phone: [phone] WBC (Bld) [#/Vol] 13.7 10*3/uL 4.4-11.0 [facility] Work Phone: Blood erythrocytes count (nu mber/volume)on 03-20-2022 RBC (Bld) [#/Vol] 5.55 10*6/uL 4.2-5.4 [facility] Work Phone: Blood hemoglobin measurement (mass/volume)on 03-20-2022 Hemoglobin (Bld) [Mass/Vol] 15.6 g/dL 12.0-15.0 [facility] Work Phone: Blood lymphocytes/100 leukoc yteson 03-20-2022 Lymphocytes/100 WBC (Bld) 38.9 % 19-41 [facility] Work Phone: Blood monocytes/100 leukocyt eson 03-20-2022 Monocytes/100 WBC (Bld) 6.2 % 0-10 [facility] Work Phone: Blood platelet mean volumeon 03-20-2022 Platelet mean volume (Bld) [Entitic vol] 10.2 fL 6.2-12.0 [facility] Work Phone: CO2 (BldA) [Partial pressure ]on 03-20-2022 CO2 (Bld) [Partial pressure] 42.7 mm[Hg] 35-45 [facility] Work Phone: Determination of erythrocyte mean corpuscular volume (MCV)on 03-20-2022 MCV (RBC) [Entitic vol] 87.9 fL 81-99 [facility] Work Phone: Hematocrit Auto (Bld) [Volum e fraction]on 03-20-2022 Hematocrit (Bld) [Volume fraction] 48.8 % 37-47 [facility] Work Phone: Influenza virus A and B and SARS-CoV-2 (COVID-19) Ag panel - Upper respiratory specimOrdered By: Dr. Espinoza on 03-20-2022 SARS-CoV-2 (COVID-19) RNA NICHOLAS+probe Ql (Resp) [facility] Laboratory - Chemistry and C hemistry - challengeon 03-20-2022 CO2 [Moles/Vol] 26.0 mmol/L 21.0-32.0 [facility] Work Phone: Urea nitrogen/Creatinine [Mass ratio] 25.3 mg/mg 10-20 [facility] Work Phone: Laboratory - Chemistry and C hemistry - challengeOrdered By: Dr. Espinoza on 03-20-2022 Natriuretic peptide B (Bld) [Mass/Vol] 549.6 pg/mL 0-100 [facility] Laboratory - Hematology and Cell countson 03-20-2022 Erythrocyte distribution width (RBC) [Entitic vol] 41.7 fL 35.1-43.9 [facility] Work Phone: Erythrocyte distribution width (RBC) [Ratio] 12.9 % 11.6-14.6 [facility] Work Phone: Immature granulocytes/100 WBC (Bld) 0.500 % 0.0-0.9 [facility] Work Phone: Comment on above: IG% - Immature Granu locytes (promyelocytes, myelocytes and metamyelocytes) > 1% indicates that a LEFT SHIFT is Present. MCH (RBC) [Entitic mass] 28.1 pg 27.0-32.0 [facility] Work Phone: Nucleated RBC/100 WBC (Bld) [Ratio] 0 % 0-5 [facility] Work Phone: MCHC Auto (RBC) [Mass/Vol]on 03-20-2022 MCHC (RBC) [Mass/Vol] 32.0 g/dL 32-36 [facility] Work Phone: No Panel Informationon 03-20 Troponin I High Sensitivity 4675 pg/mL 3.0-54.0 [facility] Work Phone: Comment on above: Critical Result(s) C alled at: 12:30:02 03/20/2022 by: Maria C. Jamshid Rosario RN (ER). Results read back by same. Please Note: New Test Units and Gender Specific Reference Ranges. For more information see Policy Stat Procedure [place] High Sensitivity Troponin (TNIH) and attachments. Blood Gas Specimen Type ART [facility] Work Phone: Blood Gas Total CO2 24 mmol/L [facility] Work Phone: Estimated Creatinine Clearance Calc 50.06 ml/min [facility] Work Phone: Estimated GFR (MDRD) Amer 84 mL/min >60 [facility] Work Phone: Comment on above: GFR Calc Estimated GFR (MDRD) Non-Af Amer 69 mL/min >60 [facility] Work Phone: Comment on above: Non- GFR Calc No Panel InformationOrdered By: Dr. Espinoza on 03-20-2022 Bedside Blood Gas PEEP 10 [facility] Blood Gas Oxygen Percent 60 [facility] Blood Gas Sample Site R Brach [facility] Blood Gas Vent Mode NIV [facility] Oxygen Delivery Device BiPAP [facility] Reactive Lymphocytes 1+ [facility] Oxygen (BldA) [Partial press ure]on 03-20-2022 Oxygen (Bld) [Partial pressure] 93 mmHG 75-100 [facility] Work Phone: Platelets bldon 03-20-2022 Platelets (Bld) [#/Vol] 317 10*3/uL 150-450 [facility] Work Phone: Serum or plasma calcium neris urement (mass/volume)on 03-20-2022 Calcium [Mass/Vol] 8.9 mg/dL 8.5-10.1 [facility] Work Phone: Serum or plasma creatinine m easurement (mass/volume)on 03-20-2022 Creatinine [Mass/Vol] 0.83 mg/dL 0.55-1.02 [facility] Work Phone: Comment on above: The validity of the calculated GFR & GFRAA in patients over 70 years has not been determined. Clinical correlation is essential. Serum or plasma urea nitroge n measurement (mass/volume)on 03-20-2022 Urea nitrogen [Mass/Vol] 21 mg/dL 7-18 [facility] Work Phone: Thin prep Papanicolaou smear with manual screeningon 03-20-2022 Thin prep Papanicolaou smear with manual screening 6 5-15 [facility] [facility] Work Phone: pH measurementon 03-20-2022 pH (Unsp spec) 7.33 [pH] 7.35-7.45 [facility] Work Phone: Lab Report: Lipid Profileon 01-19-2017 Cholesterol in HDL mass conc 59 mg/dL Invalid Interpretation Code [facility] [employer] Work Phone: [phone] Cholesterol in LDL mass conc 87 mg/dL Invalid Interpretation Code 0-130 [place] [employer] Work Phone: [phone] Cholesterol mass conc 171 mg/dL Invalid Interpretation Code 200 [facility] Work Phone: [phone] Lipoprotein.pre-beta mass conc 25 mg/dL Invalid Interpretation Code 5-40 [facility] [employer] Work Phone: [phone] Triglyceride mass conc 124 mg/dL Invalid Interpretation Code [facility] [employer] Work Phone: [phone] Lab Report: Liver Profileon 01-19-2017 Albumin mass conc 3.7 g/dL Invalid Interpretation Code 3.4-5.0 [facility] [employer] Work Phone: [phone] Alkaline phosphatase (ALP) 73 U/L Invalid Interpretation Code 45-117 [place] [employer] Work Phone: [phone] ALP enzyme act/vol (Bld) 73 U/L Invalid Interpretation Code 45-117 [place] [facility] [facility] Work Phone: [phone] ALT enzyme act/vol 39 U/L Invalid Interpretation Code 12-78 [place] [employer] Work Phone: [phone] AST enzyme act/vol 27 U/L Invalid Interpretation Code 15-37 [place] [employer] Work Phone: [phone] Bilirubin mass conc 1.00 mg/dL Invalid Interpretation Code 0.20-1.00 [facility] [employer] Work Phone: [phone] Bilirubin.direct mass conc 0.24 mg/dL Invalid Interpretation Code 0.00-0.30 [place] [employer] Work Phone: [phone] Globulin Calculated mass conc (S) 3.1 g/dL Invalid Interpretation Code 2.2-4.2 [facility] Work Phone: [phone] Protein mass conc 6.8 g/dL Invalid Interpretation Code 6.4-8.2 [facility] Work Phone: [phone] Chart Maintenanceon 11-28-19 17 Left ventricular Ejection fraction 60 % Invalid Interpretation Code [facility] Work Phone: [phone] Office Visiton 11-27-2016 Documentation of current medications (procedure) Done Invalid Interpretation Code [place] [employer] Work Phone: [phone] Protein mass conc Done Invalid Interpretation Code [facility] [employer] Work Phone: [phone] Lab Report: Basic Metabolic Profile (BMP)on 11-17-2016 Anion gap 5 mmol/L Invalid Interpretation Code 5-15 [facility] Work Phone: [phone] Anion gap 4 molar conc 5 Invalid Interpretation Code 5-15 [place] [employer] Work Phone: [phone] Anion gap molar conc 5 mmol/L 5-15 [facility] Work Phone: [phone] BUN/Creatinine Ratio 18.3 RATIO Invalid Interpretation Code 10-20 [place] [employer] Work Phone: [phone] Calcium 9.0 mg/dL Invalid Interpretation Code 8.5-10.1 [facility] [facility] [employer] [employer] Work Phone: [phone] Chloride 94 mmol/L Low 98-107 [place] [employer] [employer] Work Phone: [phone] CO2 30.0 mmol/L Invalid Interpretation Code 21.0-32.0 [facility] [employer] Work Phone: [phone] CO2 ppres (BldV) 30.0 mmol/L Invalid Interpretation Code 21.0-32.0 [facility] [employer] Work Phone: [phone] Creatinine 0.66 mg/dL Invalid Interpretation Code 0.55-1.02 [facility] [employer] Work Phone: [phone] eGFR (non-black) 111 mL/min/{1.73_m2} Invalid Interpretation Code >60 [facility] Work Phone: [phone] eGFR (non-black) 92 mL/min/{1.73_m2} Invalid Interpretation Code >60 [facility] Work Phone: [phone] EST GFR - AA 111 mL/min Invalid Interpretation Code >60 [facility] Work Phone: [phone] Glucose 148 mg/dL High 70-110 [facility] Work Phone: [phone] Glucose mass conc 148 mg/dL High 70-110 [facility] Work Phone: [phone] Potassium 4.4 mmol/L Invalid Interpretation Code 3.5-5.1 [facility] Work Phone: [phone] Sodium 129 mmol/L Low 136-145 [facility] Work Phone: [phone] Urea nitrogen 12 mg/dL Invalid Interpretation Code 7-18 [facility] Work Phone: [phone] Lab Report: Lipid Profileon 11-17-2016 Cholesterol 283 mg/dL High 200 [facility] Work Phone: [phone] HDL Cholesterol 52 mg/dL Invalid Interpretation Code [facility] Work Phone: [phone] LDL Cholesterol 201 mg/dL High 0-130 [place] [facility] Work Phone: [phone] Triglyceride 149 mg/dL Invalid Interpretation Code [facility] Work Phone: [phone] very low density lipoproteins 30 mg/dL Invalid Interpretation Code 5-40 [facility] Work Phone: [phone] Lab Report: Liver Profileon 11-17-2016 Alanine aminotransferase (ALT) 29 U/L Invalid Interpretation Code 12-78 [facility] Work Phone: [phone] Albumin 4.0 g/dL Invalid Interpretation Code 3.4-5.0 [facility] Work Phone: [phone] Alkaline phosphatase (ALP) 74 U/L Invalid Interpretation Code 45-117 [facility] Work Phone: [phone] ALP enzyme act/vol (Bld) 74 U/L 45-117 [facility] Work Phone: [phone] Aspartate aminotransferase (AST) 15 U/L Invalid Interpretation Code 15-37 [facility] Work Phone: [phone] Bilirubin (direct) 0.25 mg/dL Invalid Interpretation Code 0.00-0.30 [facility] Work Phone: [phone] Bilirubin (total) 1.10 mg/dL High 0.20-1.00 [facility] Work Phone: [phone] Globulin 3.1 g/dL Invalid Interpretation Code 2.3-3.5 [facility] Work Phone: [phone] Globulin mass conc (S) 3.1 g/dL 2.3-3.5 [facility] Work Phone: [phone] Protein 7.1 g/dL Invalid Interpretation Code 6.4-8.2 [facility] Work Phone: [phone] Office Visit: [facility] 08-07-19 17 Documentation of current medications (procedure) Done Invalid Interpretation Code [facility] Work Phone: [phone] Fall risk assessment No Invalid Interpretation Code [facility] Work Phone: [phone] Protein mass conc Done [facility] Work Phone: [phone] Tobacco smoking status NHIS Never smoker Invalid Interpretation Code [facility] Work Phone: [phone] Tobacco use [facility] Never smoker Invalid Interpretation Code [facility] Work Phone: [phone] Replaced Document: Antoine [employer] 08-06-2016 EKG QRS axis 32 deg Invalid Interpretation Code [employer] Phone: [phone] electrocardiogram interpretation Sinus Rhythm -Nonspecific ST depression -Nondiagnostic. ABNORMAL Invalid Interpretation Code [employer] Phone: [phone] GE use only - for [employer] import when terms are not otherwise specified 428 ms Invalid Interpretation Code [facility] Work Phone: [phone] Interpretation Sinus Rhythm -Nonspecific ST depression -Nondiagnostic. ABNORMAL Invalid Interpretation Code [facility] Work Phone: [phone] P [place] 57 deg Invalid Interpretation Code [facility] Work Phone: [phone] P wave axis, electrocardiogram 57 deg Invalid Interpretation Code [facility] Work Phone: [phone] [place] Interval 128 ms Invalid Interpretation Code [facility] Work Phone: [phone] [place] interval, electrocardiogram 128 ms Invalid Interpretation Code [facility] Work Phone: [phone] Pulse (Heart Rate) 66 /min Invalid Interpretation Code [facility] Work Phone: [phone] QRS axis, electrocardiogram 32 deg Invalid Interpretation Code [facility] Work Phone: [phone] QRS Duration 90 ms Invalid Interpretation Code [facility] Work Phone: [phone] QRS duration, electrocardiogram 90 ms Invalid Interpretation Code [facility] Work Phone: [phone] QT Interval new path ms Invalid Interpretation Code [facility] Work Phone: [phone] QT interval, electrocardiogram new path ms Invalid Interpretation Code [facility] Work Phone: [phone] QTc [place] 428 ms Invalid Interpretation Code [facility] Work Phone: [phone] T [place] 42 deg Invalid Interpretation Code [facility] Work Phone: [phone] T wave axis, electrocardiogram 42 deg Invalid Interpretation Code [facility] Work Phone: [phone] Influenza virus A and B and SARS-CoV-2 (COVID-19) Ag panel - Upper respiratory specim SARS-CoV-2 (COVID-19) RNA NICHOLAS+probe Ql (Resp) [facility] Work Phone: Vital Signs Date Time Vital Sign Value Performing Clinician Facility 12-06-2024 09:28-0400 Diastolic blood pressure 78 mm[Hg] Dr. Murphy Burton DO Work Phone: [facility] 12-06-2024 09:28-0400 Systolic blood pressure 161 mm[Hg] Dr. Murphy Burton DO Work Phone: [facility] 12-06-2024 09:17-0400 Heart rate 71 /min Dr. Murphy Burton DO Work Phone: [facility] 12-06-2024 08:55-0400 Body height 149.[address] Murphy Burton DO Work Phone: [facility] 12-06-2024 08:55-0400 Body mass index (BMI) [Ratio] 27.4 kg/m2 Dr. Murphy Burton DO Work Phone: [facility] 12-06-2024 08:55-0400 Body weight 61.[address] Murphy Burton DO Work Phone: [facility] 12-06-2024 08:55-0400 Respiratory rate 16 /min Dr. Murphy Burton DO Work Phone: [facility] 10-04-2024 16:00-0400 Body height 149.[address] Murphy Burton DO Work Phone: [facility] 10-04-2024 16:00-0400 Body mass index (BMI) [Ratio] 26.9 kg/m2 Dr. Murphy Burton DO Work Phone: [facility] 10-04-2024 16:00-0400 Body weight 60.[address] Murphy Burton DO Work Phone: [facility] 10-04-2024 16:00-0400 Diastolic blood pressure 55 mm[Hg] Dr. Murphy Burton DO Work Phone: [facility] 10-04-2024 16:00-0400 Heart rate 64 /min Dr. Murphy Burton DO Work Phone: [facility] 10-04-2024 16:00-0400 Respiratory rate 16 /min Dr. Murphy Burton DO Work Phone: [facility] 10-04-2024 16:00-0400 Systolic blood pressure 105 mm[Hg] Dr. Murphy Burton DO Work Phone: [facility] 05-29-2022 14:08-0500 Body height 149.9 cm Jacinta Sebastian APRN-PARTS ROOM CLERK Work Phone: [facility] 05-29-2022 14:08-0500 Body mass index (BMI) [Ratio] 27.81 kg/m2 Jacinta Sebastian [employer] CLERK Work Phone: [facility] 05-29-2022 14:08-0500 Body weight 62.5 kg Jacinta Sebastian [employer]S ROOM CLERK Work Phone: [facility] 05-29-2022 14:08-0500 Diastolic blood pressure 63 mm[Hg] Jacinta Jaz [employer]PARTS ROOM CLERK Work Phone: [facility] 05-29-2022 14:08-0500 Heart rate 65 /min Jacintatreva Sebastian [employer]-PARTS ROOM CLERK Work Phone: [facility] 05-29-2022 14:08-0500 Systolic blood pressure 133 mm[Hg] Jacintatreva Sebastian [employer]PARTS ROOM CLERK Work Phone: [facility] 04-27-2022 11:20-0500 SaO2% (BldA) [Mass fraction] 93 % Patricia Schrader MD, PhD Work Phone: [facility] 04-27-2022 11:19-0500 Body temperature 97.3 [degF] Patricia Schrader MD, PhD Work Phone: [facility] 04-27-2022 11:19-0500 Diastolic blood pressure 63 mm[Hg] Patricia Schrader MD, PhD Work Phone: [facility] 04-27-2022 11:19-0500 Heart rate 63 /min Patricia Schrader MD, PhD Work Phone: [facility] 04-27-2022 11:19-0500 Respiratory rate 16 /min Patricia Schrader MD, PhD Work Phone: [facility] 04-27-2022 11:19-0500 Systolic blood pressure 133 mm[Hg] Patricia Schrader MD, PhD Work Phone: [facility] 04-27-2022 06:22-0500 Body mass index (BMI) [Ratio] 27.83 kg/m2 Patricia Schrader MD, PhD Work Phone: [facility] 04-27-2022 06:22-0500 Body weight 62.5 kg Patricia Schrader MD, PhD Work Phone: [facility] 04-25-2022 14:30-0500 Body height 149.9 cm Patricia Schrader MD, PhD Work Phone: [facility] 04-20-2022 01:07-0500 Diastolic blood pressure 53 mm[Hg] Dr. Murphy Burton Work Phone: 8(738)166-538835 [place] [address] 04-20-2022 01:07-0500 Heart rate 66 /min Dr. Murphy Burton Work Phone: 3(608)824-909735 [place] [address] 04-20-2022 01:07-0500 Inhaled oxygen flow rate 5 L/min Dr. Murphy Burton Work Phone: 6(889)827-161247 [address] 04-20-2022 01:07-0500 Respiratory rate 17 /min Dr. Murphy Burton Work Phone: 0(670)148-285147 [address] 04-20-2022 01:07-0500 SaO2% (BldA) [Mass fraction] 99 % Dr. uMrphy Burton Work Phone: 4(632)564-543247 [address] 04-20-2022 01:07-0500 Systolic blood pressure 153 mm[Hg] Dr. Murphy Burton Work Phone: 6(970)887-998647 [address] 04-19-2022 23:45-0500 Body temperature 97.7 [degF] Dr. Murphy Burton Work Phone: 3(498)613-013935 [place] [address] 04-19-2022 22:15-0500 Inhaled oxygen concentration 40 % Dr. Murphy Burton Work Phone: 2(591)322-572047 [address] 04-19-2022 21:53-0500 Body height 151.[address] Murphy Burton Work Phone: 2(756)477-115847 [address] 04-19-2022 21:53-0500 Body mass index (BMI) [Ratio] 28.5 kg/m2 Dr. Murphy Burton Work Phone: 6(876)612-927347 [address] 04-19-2022 21:53-0500 Body weight 65.[address] Murphy Burton Work Phone: [facility] 04-17-2022 06:00-0500 Body temperature 97.9 [degF] Dr. Murphy Burton Work Phone: 2(923)071-821799 [place] [address] 04-17-2022 06:00-0500 Diastolic blood pressure 55 mm[Hg] Dr. Murphy Burton Work Phone: 6(030)185-936599 [place] [address] 04-17-2022 06:00-0500 Heart rate 66 /min Dr. Murphy Burton Work Phone: 8(780)551-077899 [place] [address] 04-17-2022 06:00-0500 Respiratory rate 20 /min Dr. Murphy Burton Work Phone: 5(948)989-976099 [place] [address] 04-17-2022 06:00-0500 SaO2% (BldA) [Mass fraction] 94 % Dr. Murphy Burton Work Phone: 2(530)719-721099 [place] [address] 04-17-2022 06:00-0500 Systolic blood pressure 140 mm[Hg] Dr. Murphy Burton Work Phone: 4(100)397-690699 [place] [address] 04-17-2022 00:00-0500 Inhaled oxygen flow rate 2 L/min Dr. Murphy Burton Work Phone: 4(211)746-788899 [place] [address] 04-16-2022 22:38-0500 Inhaled oxygen concentration 60 % Dr. Murphy Burton Work Phone: 9(661)876-178499 [place] [address] 04-16-2022 20:57-0500 Body height 152.[address] Murphy Burton Work Phone: 6(165)223-071599 [place] [address] 04-16-2022 20:57-0500 Body mass index (BMI) [Ratio] 28.7 kg/m2 Dr. Murphy Burton Work Phone: 7(711)440-925999 [place] [address] 04-16-2022 20:57-0500 Body weight 66.[address] Murphy Burton Work Phone: 2(075)167-406899 [place] [address] 04-05-2022 15:00-0500 Body temperature 97.81 [degF] Sabas Petersen MD Work Phone: [facility] 04-05-2022 15:00-0500 Diastolic blood pressure 71 mm[Hg] Sabas Petersen MD Work Phone: 9(784)011-347048 [place] [address] Comment on above: rn notified, MistyTR 04-05-2022 15:00-0500 Heart rate 68 /min Sabas Petersen MD Work Phone: [facility] 04-05-2022 15:00-0500 Respiratory rate 16 /min Sabas Petersen MD Work Phone: [facility] 04-05-2022 15:00-0500 SaO2% (BldA) [Mass fraction] 95 % Sabas Petersen MD Work Phone: [facility] 04-05-2022 15:00-0500 Systolic blood pressure 163 mm[Hg] Sabas Petersen MD Work Phone: 0(985)280-646748 [place] [address] Comment on above: rn notified, MistyTR 04-05-2022 06:01-0500 Body mass index (BMI) [Ratio] 27 kg/m2 Sabas Petersen MD Work Phone: [facility] 04-05-2022 06:01-0500 Body weight 60.65 kg Sabas Petersen MD Work Phone: [facility] Comment on above: standing weight 04-01-2022 12:00-0500 Body height 149.9 cm Sabas Petersen MD Work Phone: [facility] 03-28-2022 13:09-0500 Body temperature 98.1 [degF] Dr. Murphy Burton Work Phone: [facility] 03-28-2022 13:09-0500 Diastolic blood pressure 45 mm[Hg] Dr. Murphy Burton Work Phone: [facility] 03-28-2022 13:09-0500 Heart rate 63 /min Dr. Murphy Burton Work Phone: 5(238)711-001235 [place] [address] 03-28-2022 13:09-0500 Respiratory rate 18 /min Dr. Murphy Burton Work Phone: 6(542)206-010699 [place] [address] 03-28-2022 13:09-0500 SaO2% (BldA) [Mass fraction] 95 % Dr. Murphy Burton Work Phone: 0(906)451-439047 [address] 03-28-2022 13:09-0500 Systolic blood pressure 128 mm[Hg] Dr. Murphy Burton Work Phone: 2(971)489-733347 [address] 03-28-2022 04:45-0500 Body weight [address] Murphy Burton Work Phone: 5(066)357-361299 [place] [address] 03-25-2022 16:40-0500 Inhaled oxygen flow rate 1 L/min Dr. Murphy Burton Work Phone: 2(405)208-850099 [place] [address] 03-24-2022 13:33-0500 Body height 149.[address] Murphy Burton Work Phone: 6(671)963-337947 [address] Work Phone: 03-20-2022 15:30-0500 Body mass index (BMI) [Ratio] 26.2 kg/m2 Dr. Murphy Burton Work Phone: 6(037)761-199347 [address] 03-20-2022 14:02-0500 Inhaled oxygen flow rate 5 L/min Dr. Murphy Burton Work Phone: [facility] Work Phone: 03-20-2022 14:02-0500 SaO2% (BldA) [Mass fraction] 97 % Dr. Murphy Burton Work Phone: [facility] Work Phone: 03-20-2022 13:13-0500 Diastolic blood pressure 63 mm[Hg] Dr. Murphy Burton Work Phone: [facility] Work Phone: 03-20-2022 13:13-0500 Heart rate 67 /min Dr. Murphy Burton Work Phone: [facility] Work Phone: 03-20-2022 13:13-0500 Respiratory rate 16 /min Dr. Murphy Burton Work Phone: [facility] Work Phone: 03-20-2022 13:13-0500 Systolic blood pressure 139 mm[Hg] Dr. Murphy Burton Work Phone: [facility] Work Phone: 03-20-2022 12:34-0500 Body temperature 98 [degF] Dr. Murphy Burton Work Phone: [facility] Work Phone: 03-20-2022 12:34-0500 Inhaled oxygen concentration 40 % Dr. Murphy Burton Work Phone: [facility] 03-20-2022 09:10-0500 Body height 149.[address] Murphy Burton Work Phone: [facility] Work Phone: 03-20-2022 09:10-0500 Body mass index (BMI) [Ratio] 29.5 kg/m2 Dr. Murphy Burton Work Phone: [facility] Work Phone: 03-20-2022 09:10-0500 Body weight 66.[address] Murphy Burton Work Phone: [facility] Work Phone: 2022 08:29-0500 Body mass index (BMI) [Ratio] 27.6 kg/m2 Dr. Murphy Burton Work Phone: [facility] 2022 08:29-0500 Body weight 62.[address] Murphy Burton Work Phone: [facility] 2022 08:29-0500 Diastolic blood pressure 67 mm[Hg] Dr. Murphy Burton Work Phone: [facility] 2022 08:29-0500 Heart rate 65 /min Dr. Murphy Burton Work Phone: [facility] 2022 08:29-0500 Respiratory rate 18 /min Dr. Murphy Burton Work Phone: [facility] 2022 08:29-0500 SaO2% (BldA) [Mass fraction] 97 % Dr. Murphy Burton Work Phone: [facility] 2022 08:29-0500 Systolic blood pressure 130 mm[Hg] Dr. Murphy Burton Work Phone: [facility] 11-27-2016 14:09-0400 BMI (Body Mass Index) [...] Care Provider Facility Start: 02-07-2025 End[facility] Start: 12-06-2024 End: 12-06-2024 Patient encounter procedure Jeni ZIMMERMAN -[facility] Work Phone: Start: 12-06-2024 End: 12-06-[address] Murphy Burton DO Work Phone: -[facility] Start: 10-04-2024 End: 10-04-2024 Patient encounter procedure Jeni ZIMMERMAN -[facility] Work Phone: Start: 10-04-2024 End: 10-04-[address] Murphy Burton DO Work Phone: -[facility] Start: 04-22-2024 End: 04-22-2024 ambulatory Murphy Burton Facility:[facility] Start: 03-22-2024 ambulatory Murphy Burton Facility:[facility] Start: 03-21-2024 ambulatory Antwon Vidal Facili ty:[facility] Start: 03-21-2024 End: 03-23-2024 Evaluation and management of inpatient Antwon Vidal Facility:[facility] Start: 02-16-2024 End: 02-16-2024 ambulatory Murphy Josephine Facility:[facility] Start: 05-29-2022 ambulatory MURPHY MATAAN Facility [facility] Start: 05-29-2022 ambulatory JACINTA SEBASTIAN Facility :[facility] Start: 05-29-2022 End: 05-29-2022 Subsequent hospital visit by physician Jacinta Sebastian [employer]OM CLERK Work Phone: [facility] [place] Start: 04-25-2022 Evaluation and management of inpatient [...] patient visit Dr. Murphy Burton Work Phone: [facility] Start: 04-18-2022 ambulatory EDER FELIX JR. Facility:[facility] Start: 04-17-2022 End: 04-19-2022 Evaluation and management of inpatient LINO PORTILLO Facility:[facility] Start: 04-16-2022 End: 04-17-2022 Emergency department patient visit Dr. Murphy Burton Work Phone: [facility] Start: 04-07-2022 Non-patient / Non-visit Dr. Enrike Burton Work Phone: [facility] Start: 03-28-2022 End: 04-05-2022 Evaluation and management of inpatient SURGERY - CARDIAC CONSULT Facility:[facility] Start: 03-28-2022 End: 04-05-2022 Evaluation and management of inpatient Sabas Petersen MD Work Phone: [phone] Comment on above: Aortic stenosis Start: 03-28-2022 Non-patient / Non-visit Dr. Enrike Burton Work Phone: [facility] Start: 03-27-2022 Non-patient / Non-visit Dr. Enrike Burton Work Phone: [facility] Start: 03-26-2022 Non-patient / Non-visit Dr. Enrike Burton Work Phone: [facility] Start: 03-26-2022 Non-patient / Non-visit Dr. Enrike Burton Work Phone: [facility] Start: 03-25-2022 Non-patient / Non-visit Dr. Enrike Burton Work Phone: [facility] Start: 03-25-2022 Non-patient / Non-visit Dr. Enrike Burton Work Phone: [facility] Start: 03-24-2022 Non-patient / Non-visit Dr. Enrike Burton Work Phone: [facility] Start: 03-24-2022 Non-patient / Non-visit Dr. Enrike Burton Work Phone: [facility] Start: 03-23-2022 Non-patient / Non-visit Dr. Enrike Burton Work Phone: [facility] Start: 03-23-2022 Non-patient / Non-visit Dr. Enrike Burton Work Phone: [facility] Start: 03-22-2022 Non-patient / Non-visit Dr. Enrike Burton Work Phone: [facility] Start: 03-22-2022 Non-patient / Non-visit Dr. Enrike Burton Work Phone: [facility] Start: 03-21-2022 Non-patient / Non-visit Dr. Enrike Burton Work Phone: [facility] Start: 03-20-2022 Non-patient / Non-visit Dr. Enrike Burton Work Phone: [facility] Start: 03-20-2022 End: 03-28-2022 Evaluation and management of inpatient Dr. Murphy Burton Work Phone: [facility] Start: 03-19-2022 Non-patient / Non-visit Dr. Enrike Burton Work Phone: [facility] Start: 03-19-2022 End: 03-19-[address] Murphy Burton Work Phone: [facility] Work Phone: Start: 03-19-2022 End: 03-19-[address] Murphy Burton Work Phone: [facility] Start: 2022 End: [address] Murphy Burton Work Phone: [facility] Procedures Date Procedure Procedure Detail Performing Clinician Start: 05-29-2022 Echo tthrc r-t 2d w/wom-mode compl spec&colr d Jacinta Sebastian [employer] CLERK Work Phone: Start: 04-27-2022 Glucose measurement, blood [...] 2d w/wom-mode compl spec&colr d Jacinta Sebastian [employer] CONSULTANT-PARTS ROOM CLERK Work Phone: Start: 04-25-2022 Radiologic exam ches t single view Jacinta Sebastian [employer] CONSULTANT-PARTS ROOM CLERK Work Phone: Start: 04-25-2022 Assay of magnesium Pritia danuta Sebastian [employer] CONSULTANT-PARTS ROOM CLERK Work Phone: Start: 04-25-2022 Glucose measurement, blood Kailey Paniagua MD Work Phone: Start: 04-25-2022 Replace aortic valve perq femoral artry approach Jacinta Sebastian [employer] CONSULTANT-PARTS ROOM CLERK Work Phone: Start: 04-25-2022 Cardiac catheterization Jacinta Sebastian [employer] CONSULTANT-PARTS ROOM CLERK Work Phone: Start: 04-25-2022 Glucose measurement, blood Kailey Paniagua MD Work Phone: Start: 04-25-2022 Natriuretic peptide Priti Sebastian [employer] CONSULTANT-PARTS ROOM CLERK Work Phone: Start: 04-24-2022 Glucose measurement, blood Kailey Paniagua MD Work Phone: Start: 04-24-2022 ABORH TYPE RECONFIRMATION Jemal Shaver MD Work Phone: Start: 04-24-2022 Glucose measurement, blood Kailey Paniagua MD Work Phone: Start: 04-24-2022 End: 04-24-2022 Antibody screen Patricia Schrader MD, P hD Work Phone: Comment on above: Performed By: #### X M #### [facility] ([facility]) [address] [place] [address] Start: 04-24-2022 Blood typing serologic abo Jacinta Sebastian [employer] CONSULTANT-PARTS ROOM CLERK Work Phone: Start: 04-24-2022 PREPARE TO TRANSFUSE OR RED BLOOD CELLS Jacinta Sebastian [employer] CONSULTANT-PARTS ROOM CLERK Work Phone: Start: 04-24-2022 Glucose measurement, blood [...] Work Phone: Start: 04-23-2022 Glucose measurement, blood aKiley Paniagua MD Work Phone: Start: 04-23-2022 CONTINUOUS [...] ampli fied probe tq Jacinta E O'Christopher [employer] CONSULTANT-PARTS ROOM CLERK Work Phone: Start: 04-01-2022 Glucose measurement, blood [...] 11-17-2016 *Hepatic Function Panel Sung Louis Tavarez SECURITY SUPERVISOR -C Start: 08-25-2016 End: 11-17-2016 Lipid 1996 panel - Serum or Plasma Sung Louis Tavarez SECURITY SUPERVISOR-C Start: 08-25-2016 End: 11-17-2016 *Hepatic Function Panel Sung A Tavarez SECURITY SUPERVISOR -C Start: 08-25-2016 End: 11-17-2016 Lipid panel [AGGREGATE] Sung Louis Tavarez SECURITY SUPERVISOR -C Start: 08-06-2016 End: 08-06-2016 DJN Sung Mccainder SECURITY SUPERVISOR-C Start: 08-06-2016 End: 08-06-2016 Ecg routine ecg w/least 12 lds w/i&r Sung Louis Tavarez SECURITY SUPERVISOR-C Start: 08-06-2016 End: 08-06-2016 Follow Up Appt 3 months Sung Mccainder SECURITY SUPERVISOR -C Start: 08-06-2016 End: 08-06-2016 DJN Sung Louis Tavarez SECURITY SUPERVISOR-C Start: 08-06-2016 End: 08-06-2016 Electrocardiogram, complete Sung Mccainder SECURITY SUPERVISOR-C Start: 08-06-2016 End: 08-06-2016 Follow Up Appt 3 months Sung Tavarez SECURITY SUPERVISOR -C Start: 07-31-2016 End: 08-01-2016 Referral to phlebotomy lab assistant Dontrell Dawson MD Work Phone: Start: 07-31-2016 End: 08-06-2016 Referral to phlebotomy lab assistant Dontrell Dawson MD Work Phone: Start: 07-18-2016 [...] [Moles/vol ume] in Serum or Plasma POTASSIUM [facility] Start: 04-27-2023 Potassium [Moles/vol ume] in Serum or Plasma POTASSIUM [facility] Start: 04-17-2023 Lipid panel LIPIDS [facility] Start: 04-09-2023 End: 04-09-2023 Patient encounter procedure [facility] Start: 09-29-2022 Hemoglobin A1c measurement HBA1C TEST [facility] Start: 05-29-2022 End: 05-29-2022 Patient encounter procedure [facility] Start: 05-09-2022 End: 05-09-2022 Patient encounter procedure 05/09/2022 Office Visit Cardiovascular Medicine Tito Munoz MD [address] [place] [address] [facility] Start: 04-19-2022 Continuous pulse oximetry [facility] Start: 04-19-2022 Dual pressure sponta neous ventilation support [facility] Start: 04-05-2022 End: 04-05-[address] ANGIO TAVR EVALUATION Imaging Routine Aortic valve stenosis, etiology of cardiac valve disease unspecified Expected: 04/05/2022, Expires: 04/05/2023 [facility] Comment on above: Expected: 04/05/2022 , Expires: 04/05/2023 Start: 03-28-2022 Patient discharge [facility] Start: 03-21-2022 Cardiac monitoring [facility] Start: 03-21-2022 Notification of physician [facility] Start: 03-21-2022 Oxygen therapy [facility] Start: 03-21-2022 Patient discharge [facility] Start: 03-21-2022 Systemic arterial pressure monitoring [facility] Start: 03-21-2022 Taking patient vital signs [facility] Start: 03-21-2022 Vascular disease ris k assessment [facility] Start: 03-21-2022 Vital signs measurements [facility] Start: 03-21-2022 [facility] Start: 03-20-2022 Referral to phlebotomy lab assistant [facility] Start: 03-20-2022 Care regimes management [facility] Start: 03-20-2022 Notification of physician [facility] Start: 03-20-2022 [facility] Start: 03-20-2022 Assessment of risk o f venous thromboembolism [facility] Start: 03-20-2022 Catheterization of vein [facility] Start: 03-20-2022 Fluid restriction [facility] Start: 03-20-2022 Incentive spirometry [facility] Start: 03-20-2022 Insertion of cathete r into peripheral vein [facility] Start: 03-20-2022 Measuring intake and output [facility] Start: 03-20-2022 Providing care accor ding to standard [facility] Start: 03-20-2022 Provision of activit y privileges [facility] Start: 03-20-2022 Referral to service [facility] Start: 03-20-2022 [facility] Start: 03-20-2022 Following clinical pathway protocol [facility] Start: 03-20-2022 Admission procedure [facility] Start: 03-20-2022 Continuous pulse oximetry [facility] Work Phone: Start: 03-20-2022 Dual pressure sponta neous ventilation support [facility] Work Phone: Start: 11-28-2021 Influenza vaccination INFLUENZA VACC INE (#1) [facility] Start: 07-20-2017 End: 01-23-2017 *Hepatic Function Panel *Hepatic Function Panel [facility] Work Phone: Start: 07-20-2017 End: 01-23-2017 Lipid panel [AGGREGATE] *Lipid Profile CC PCP [facility] Work Phone: Start: 03-09-2017 End: 03-09-2017 Appointment Appointment [facility] Work Phone: Start: 01-19-2017 End: 01-19-2017 *Hepatic Function Panel *Hepatic Function Panel [facility] Work Phone: Start: 01-19-2017 End: 01-19-2017 Lipid panel [AGGREGATE] *Lipid Profile CC PCP [facility] Work Phone: Start: 01-19-2017 End: 11-27-2016 *Hepatic Function Panel *Hepatic Function Panel [facility] Work Phone: Start: 01-19-2017 End: 11-27-2016 Lipid panel [AGGREGATE] *Lipid Profile CC PCP [facility] Work Phone: Start: 11-27-2016 End: 11-27-2016 Appointment Appointment [facility] Work Phone: Start: 11-27-2016 End: 11-27-2016 Appointment Appointment [facility] Work Phone: Start: 11-27-2016 End: 11-27-2016 Cardiac Rehab Cardiac [facility] Work Phone: Start: 11-27-2016 End: [...] Phone: Start: 11-27-2016 End: 11-27-2016 DJN ADINAN [facility] Work Phone: Start: 11-27-2016 End: 11-27-2016 Follow Up Appt 3 months Follow Up Appt 3 months [facility] Work Phone: Start: 11-27-2016 End: 11-27-2016 Follow Up BP Check Follow Up BP Check [facility] Work Phone: Start: 11-17-2016 End: [...] Lipid panel [AGGREGATE] *Lipid Profile CC PCP [facility] Work Phone: Start: 08-06-2016 End: 08-06-2016 Appointment Appointment [facility] Work Phone: Start: 08-06-2016 End: 08-06-2016 CHEY GUERRIER [facility] Work Phone: Start: 08-06-2016 End: 08-06-2016 Ecg routine ecg w/least 12 lds w/i&r EKG (In office) [facility] Work Phone: Start: 08-06-2016 End: 08-06-2016 Follow Up Appt 3 months Follow Up Appt 3 months [facility] Work Phone: Start: 08-06-2016 End: 08-06-2016 CHEY GUERRIER [facility] Work Phone: Start: 08-06-2016 End: 08-06-2016 Electrocardiogram, complete EKG (In office) [facility] Work Phone: Start: 08-06-2016 End: 08-06-2016 Follow Up Appt 3 months Follow Up Appt 3 months [facility] Work Phone: Start: 07-31-2016 End: 08-06-2016 Cardiac Rehab [facility] [address] [place], [address] [facility] Work Phone: Start: 07-31-2016 End: 08-06-2016 Cardiac Rehab [facility] [address] [place], [address] [facility] Work Phone: Start: 2000 Pneumococcal vaccination PNEUM OCOCCAL VACCINE SERIES (1 - PCV) [facility] Start: 1985 Zoster vaccine hzv l yuko for subcutaneous use ZOSTER (SHINGLES) VACCINE (1 of 2) [facility] Start: 1980 Screening for malign ant neoplasm of colon COLORECTAL CANCER SCREENING DISCUSSION [facility] Start: 1975 Screening for malign ant neoplasm of breast MAMMOGRAM SCREENING DISCUSSION [facility] Start: 1956 Screening for malign ant neoplasm of cervix CERVICAL CANCER SCREENING DISCUSSION [facility] Start: 1954 Third diphtheria, te tanus and acellular pertussis (DTaP) vaccination TDAP (ADULT) [facility] Start: 1935 COVID-19 VACCINE (#1) COVID-19 VACCI NE (#1) [facility] Start: 1935 Diabetic foot examination DIABETIC F OOT EXAM [facility] Start: 1935 Glaucoma screening EYE EXAM [facility] Start: 1935 Screening for osteoporosis DEXA SCAN DISCUSSION [facility] Start: 1935 Tetanus vaccination TETANUS [facility] Start: 1935 Urine screening for protein URINE MICROALBUMIN TEST [facility] Cardiac catheterizat ion study INVASIVE CARDIOVASCULAR PROCEDURE Cardiac Cath Routine 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 NSTEMI (non-ST elevated myocardial infarction) 04/04/2022 11:09 AM EST [facility] Cardiac catheterizat ion study INVASIVE CARDIOVASCULAR PROCEDURE Cardiac Cath Routine Aortic valve stenosis, etiology of cardiac valve disease unspecified 04/25/2022 10:36 AM EST [facility] Cardiac event recording EVENT TERRANCE GARCÍA, CARDIAC ECG Routine S/P TAVR (transcatheter aortic valve replacement) Ordered: 04/26/2022 [facility] Work Phone: Comment on above: Ordered: 04/26/2022 End: 04-25-2022 Cardiac telemetry MOBILE CARDIAC TELEMETRY ECG Routine One Time for 1 Occurrences starting 04/25/2022 until 04/25/2022 [facility] Comment on above: One Time for 1 Occur rences starting 04/25/2022 until 04/25/2022 Patient Education LOW%20FAT%20DIET [facility] Work Phone: Patient referral [facility] Work Phone: End: 03-28-2022 Standard ECG ECG ECG Routine One Time for 1 Occurrences starting 03/28/2022 until 03/28/2022 [facility] Comment on above: One Time for 1 Occur rences starting 03/28/2022 until 03/28/2022 End: 03-29-2022 Standard ECG [facility] Comment on above: One Time for 1 Occur rences starting 03/29/2022 until 03/29/2022 End: 04-01-2022 Standard ECG [facility] Comment on above: One Time for 1 Occur rences starting 04/01/2022 until 04/01/2022 End: 04-04-2022 Standard ECG [facility] Comment on above: One Time for 1 Occur rences starting 04/04/2022 until 04/04/2022 Standard ECG ECG ECG STAT 03/2022 6:17 PM EST [facility] Standard ECG ECG ECG STAT 08/2022 12:52 AM [facility] End: 04-25-2022 Standard ECG ECG ECG STAT One Time for 1 Occurrences starting 04/25/2022 until 04/25/2022 [facility] Comment on above: One Time for 1 Occur rences starting 04/25/2022 until 04/25/2022 Standard ECG ECG ECG STAT 10:24 AM [facility] Work Phone: Payers Date Payer Category Payer Unknown [id number] 2024 Self-pay [id number] 2022 Unknown [id number] 1935 Unknown [id number] 2.16. [id number] Unknown [facility] [employer] [facility] . [id number] Unknown [id number] 2.16.8 [id number] Unknown [id number] 2.16.8 [id number] Unknown [id number] 2.16.8 [id number] Unknown [id number] 2.16.8 [id number] Unknown [id number] 2.16.8 [id number] Unknown [id number] 2.16.8 [id number] Unknown [id number] 2.16.8 [id number] Unknown [id number] 2.16.8 [id number] Unknown [id number] 2.16.8 [id number] Unknown [id number] 2.16.8 [id number] Unknown [id number] 2.16.8 [id number] Social History Date Type Detail Facility Start: 03-20-2022 End: 04-19-2022 Tobacco smoking status NHIS Unknown if ever smoked [facility] Start: 05-07-2018 With [facility] Start: 1935 Sex Assigned At Female [facility] Start: 03-28-2022 End: 03-21-2024 Tobacco smoking status NHIS Never smoked tobacco [facility] Start: 03-28-2022 Tobacco use and exposure Smokeless tobacco non-user [facility] Start: 04-02-2022 End: 05-29-2022 Alcohol intake Lifetime non-drinker (finding) [facility] Start: 1935 Sex Assigned At Not on file [facility] Start: 03-18-2022 End: 03-28-2022 Exposure to SARS-CoV-2 (event) Not sure [facility] Start: 04-15-2022 End: 05-29-2022 Exposure to SARS-CoV-2 (event) Unable to assess [facility] Start: 07-09-2016 Alcohol Alcohol [facility] Start: 07-09-2016 Tobacco Use Tobacco Use [facility] Medical Equipment Procedure Code Equipment [...] Start: 05-05-2018 Device Closure Proglide 6fr - [id number] Start: 04-01-2022 Coronary Stent 2 8mm 3mm Xience Skypoint Multi-Link 145cm - [id number] Start: 04-04-2022 Kit Valve Aortic Transcatheter Lorelei 3 Commander 23mm - [id number] Start: 04-25-2022 Device Closure Proglide 6fr - [id number] Start: 04-25-2022 Goals Date Patient Goal Desired Activity /State Functional Status Date Assessment Result Facility 03-28-2022 Functional status Ambulates;Bathroom Priv [facility] Work Phone: Mental Status Date Assessment Result Facility 03-28-2022 Cognitive function Voice/Name [facility] Work Phone: Clinical Notes 03-28-2022 to [...] 2024 8:36am HLD (hyperlipidemia) chronic Nov 8:36am [facility] Work Phone: 1(413) 281-938112-25-2024 [facility] Medical Records Department [address] [place] [address] Discharge Summary 03/23/24 1042 MR#: [id number] Acct: [id number] Name: FINESSE PRATHER Rep #: [id number] : 1935 89 From: Papi Ruiz MD PCP: Dr. Murphy Burton MD Status:ADM IN Location: [place] [address] Providers Date of Admission: 03/21/24 Date of [...] went up to 156/61. Discussed with the phlebotomy lab assistant Dr. Cordero. Patient is discharged on lisinopril [...] cardiac stents 2016, 2022 and chronic nonrheumatic zzazpihu-ss-bnokgd stenosis of aortic valve; s/p TAVR (03/2022) [...] PO BID blood sugar 01/28/21 omega-3 250 go-cll-idp-lutein 2.5 mg-zeaxanthin 0.5 mg capsule ([facility]) 1 cap PO BID [facility] [...] tabs 02/16/24 carvedilol 1 (more content not included)...[facility]01-30-2023 NoteProcedure Report DATE PERFORMED: 04/25/2022 PREOPERATIVE [...] Procedure Ordering Physician: JACINTA SEBASTIAN Order #: [id number] Study Date: 04/25/2022 Patient Information Name MRN Description Finesse Prather [id number] y.o. female Location Name Address [facility] [address] [facility] [address] Physicians Panel Physicians Referring Physician Case Authorizing Physician Lino Portillo MD, PhD (Primary) DO Jacinta Peng, [employer] CONSULTANT-PARTS ROOM CLERK Tito Bartholomew MD (Fellow) Nicho Lucas MD [...] obtained. The patient was brought to the slab installer and placed on the table. The planned puncture sites were prepped and draped in (more content not included)...[facility] Miscellaneous Notes* Nursing Notes - Tasia Mancia [...] admission. Patient transported via wheelchair to the [facility] with belongings and copy of discharge instructions accompaniedby hospital staff. No signs or symptoms of distress noted. 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 * Plan of Care - Tasia Mancia RN - 04/26/2022 1:34 PM EST 2 [place] [facility] Rounding Plan of Care The following [...] we placed a left common femoral artery 6-Tanzanian sheath percutaneously. A 6 Tanzanian pigtail was advanced over a guidewire into the ascending aorta and parked in the right sinus of Valsalva. A 9 sri lankan left venous sheath was placed in the femoral vein. A balloon catheter tip pacing wire was advanced into the RV and secured. Good capture was achieved. The right common femoral artery was then accessed percutaneously using Seldinger technique. The patient was heparinized. The artery was preclosed with the placement of two Perclose devices. A guidewire was inserted and a 8-Tanzanian pigtail catheter was advanced into the descending [...] - 04/25/2022 11:06 AM EST Finesse Prather ([id number]) PRE OPERATIVE DIAGNOSIS Aortic valve stenosis, etiology [...] ANESTHESIOLOGIST No anesthesia staff entered. SURGICAL STAFF Population Geneticist: CHIQUI Hernandez Production Machine Tender: Alok Molina Sedation Nurse: Miguel Ho RN; [...] Thursday CURRENT HOSPITALIZATION/ LOS: Admit Date: 04/20/2022 [facility] LOS: 3 days ? MEDICATIONS: [...] (H) 04/20/2022 No results found for: TSH, NHJ01CER, FKD81NUG, TSHBASELINE, TSHULTRASEN, TSHRFT4 ? Mena Torres RN [...] Blue MD Internal Medicine Resident, PGY-3 [facility] * Nursing Notes - Adolph Corea RN - 04/20/2022 3:45 AM EST Patient admitted to [facility] for uncontrolled HTN accompanied by SOB [...] Added:No Adolph Corea RN [facility]* Nursing Notes - Tasia Mancia RN [...] admission. Patient transported via wheelchair to the [facility] [facility] with belongings and copy of discharge instructions accompaniedby hospital staff. No signs or symptoms of distress noted. 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 [facility]01-29-2023 History of Present illness Narrative* Shyla Barbour - 04/27/2022 12:53 PM EST Images from the original note were not included. [facility] Delivery Note: The following medications were Tubed to the tube number 120: Shyla Barbour [place] Bedside Delivery: [phone] [place] Bedside Delivery: [phone] East: [phone] * Azeb Hansen RPH - 04/27/2022 11:32 [...] to the patient on 04/27/2022. WALI Jeong [phone] Jay [phone] [facility] [phone] Bedside delivery [phone] * Tito Hunt MD - 04/26/2022 9:53 [...] endarteerectomy (L 2010, R 2017), HLD, HTN [id number] (non-insulin dependent) who presented to the O[facility] ([place]) with acute shortness of breath. Hypertension Patient [...] degree heart block. Plan to discharge with electronic device monitor for further evaluation. Haven Stevenson MD Attending Physician Interventional Heart Failure & Cardiac Transplant Pager: [phone] * Tito Hunt MD - 04/25/2022 4:21 [...] endarteerectomy (L 2010, R 2017), HLD, HTN [id number] (non-insulin dependent) who presented to the OSH [...] Labs-ABGs Labs-CBC WBC/Hgb/Hct/Plts: 7.88/10.6/32.1/204 (04/25 1116) Labs-Chem 7([facility]) Bun/Creat/Cl/CO2/Glucose: 21/0.64/106/24/150 (04/25 1116) Na/K+/Phos/Mg/Ca: 138/4.5/--/1.8/-- (04/25 [...] education review and activity progression. VANESSA Kiser ([id number]) IP Cardiopulmonary & Vascular Rehab * SOULEYMANE [...] Pre procedure: Sinus Bradycardia, Rate 59 bpm, [place] 136 ms, QRS 92 ms. POST TAVR: [...] care for her. Jacinta Sebastian, RN, MSN, [employer] CONSULTANT-PARTS ROOM CLERK Structural Heart Disease Nurse Practitioner Pager [phone] * Rico Hicks, PT - 04/25/2022 8:32 [...] endarteerectomy (L 2010, R 2017), HLD, HTN [id number] (non-insulin dependent) who presented to the OSH [...] 04/25/2022] ceFAZolin (ANCEF) IV intermittent, 2 g, precipitator supervisor to Procedure [START ON 04/25/2022] chlorhexidine, 15 mL, precipitator supervisor to Procedure Insulin lispro, , PRN And Dextrose, 7.5-25 g, As directed PRN And glucose, 1-2 Tube, As directed PRN Docusate, 100 mg, BID PRN magnesium oxide, 800 mg, As directed PRN Magnesium Sulfate IVPB, 4 g, As directed PRN [START ON 04/25/2022] Mupirocin, 1 Application, precipitator supervisor to Procedure Potassium Bicarb-Citric Acid, 20-40 mEq, As directed PRN Potassium Bicarb-Citric Acid, 40-60 mEq, As directed PRN povidone-iodine, 1 Application, precipitator supervisor to Procedure Sodium chloride, 2 spray, PRN Sodium chloride 0.9%, 250 mL, PRN [START ON 04/25/2022] Vancomycin (VANCOCIN) IVPB, 1,000 mg, precipitator supervisor to Procedure ALLERGIES: She is allergic to [...] Assessment/Intervention: Transfer Assessment/Intervention: Sit to Stand Transfer [place] Level: Sit->Stand: stand-by assist Assistive Device: Sit->Stand: armed chair Skilled Rationale: Positioning, Verbal cues, Initiation and execution of task Skilled Intervention/Details: Sit->Stand: 2x from bedside chair, 1x from toilet, 1x from chair in bathroom Stand to Sit Transfer [place] Level: Stand->Sit: stand-by assist Assistive Device: Stand->Sit: armed chair Skilled Rationale: Controlled descent for sitting, Verbal cues Skilled Intervention/Details: Stand->Sit: 1x to toilet, 1x to chair in bathroom, 1x to bedside chair Toilet Transfer [place] Level: Toilet: stand-by assist Assistive Device: Toilet: grab bars Skilled Rationale: Positioning, Cues for increased safety Skilled Intervention/Details: Toilet: SBA for balance to reduce risk of falls Functional Mobility: Functional Mobility [place] Level: Functional Mobility/Gait: (CGA without AD, progressing [...] x140 feet. Pt initially required CGA and VENEER CLIPPER HELPER for within room mobiltiy secondary to gait and postural instability. 2WW utilized for additonal mobility, and Pt progressed to SBA. Outcome Score(s): CURRENT [facility] Daily Activity Inpatient Short Form Putting on/Taking Off Lower Body Clothin - A Little Assistance Bathin - A Little Assistance Toiletin - A Little Assistance Putting on/Taking Off Upper Body Clothin - No Assistance Groomin - No Assistance Eatin - No Assistance CURRENT [facility] Activity Raw Score: 21 CURRENT [facility] Activity Functional Limitation/Modifier: 32.79% Currently Impaired in [...] endarteerectomy (L 2010, R 2017), HLD, HTN [id number] (non-insulin dependent) who presented to the OSH [...] 5-10 Low: 0-5 QUINTON Hannon RN Clinical Frame Table Operator * Radha Finch RD - 04/23/2022 1:43 [...] Needs: Weight Used: 44.3 kg IBW EEN: 0690-8840 (25-30 kcal/kg IBW) EPN: 53-66 (1.2-1.5 g/kg IBW) Malnutrition Diagnosis: Indications of Malnutrition: Unable to assess r/t another discipline in room with pt upon visit based on the AND/ASPEN Malnutrition Criteria 2012 ANDREW Garcia, KENNEY Pager: [phone] * Radha Delgadillo OT - 04/23/2022 1:36 [...] Assessment/Intervention: Transfer Assessment/Intervention: Sit to Stand Transfer [place] Level: Sit->Stand: stand-by assist Assistive Device: Sit->Stand: armed chair Skilled Rationale: Positioning, Verbal cues, Initiation and execution of task Skilled Intervention/Details: Sit->Stand: 3x from bedside chair, 1x from toilet Stand to Sit Transfer [place] Level: Stand->Sit: stand-by assist Assistive Device: Stand->Sit: armed chair Skilled Rationale: Controlled descent for sitting, Verbal cues Skilled Intervention/Details: Stand->Sit: 1x to toilet, 3x to bedside chair. Pt demonstrated good utilization of eccentric control throughout transfers Toilet Transfer [place] Level: Toilet: stand-by assist Skilled Rationale: Verbal cues, Controlled descent for sitting, Cues for increased safety Skilled Intervention/Details: Toilet: SBA for balance to reduce risk of falls Functional Mobility: Functional Mobility [place] Level: Functional Mobility/Gait: contact guard assist Assistive [...] Acute Physical Therapy Treatment Prior to Admission [facility] score(s): PRIOR LEVEL AM-PAC Mobility Raw Score: [...] midline. Mobility Assessment/Intervention: Supine to Sit Mobility [place] Level: Supine->Sit: stand-by assist Skilled Rationale: Positioning, Sequencing, Hand placement, Verbal cues, Energy conservation, Breathing strategies Sit to Supine Mobility [place] Level: Sit->Supine: contact guard assist Skilled Rationale: Positioning, Sequencing, Hand placement, Verbal cues, Tactile cues, Energy conservation, Breathing strategies, Technique of activity Transfer Assessment/Intervention: Sit to Stand Transfer [place] Level: Sit->Stand: contact guard assist Skilled Rationale: Positioning, Sequencing, Hand placement, Verbal cues, Tactile cues, Energy conservation, Breathing strategies Skilled Intervention/Details: Sit->Stand: x3 Stand to Sit Transfer [place] Level: Stand->Sit: contact guard assist Bed-Chair Transfer [place] Level: Bed<->Chair: contact guard assist Gait/Functional Mobility Assessment/Intervention: Gait Assessment [place] Level: Gait: stand-by assist Ambulation Distance (Feet): 15 Gait Deviations Identified: decreased taj, decreased gait speed, decreased stride length, decreased step length Gait Skilled Rationale: verbal, tactile, upright posture, improve foot placement Skilled Intervention/Details - Gait: Pt worked on midline and upright posture with good stable trunk and pelvis. Outcome Score(s): CURRENT [facility] Basic Mobility Inpatient Short Form Turning over in bed: 4 - No Assistance Sitting/standing from chair: 3 - A Little Assistance Moving from lying on back to sittin - A Little Assistance Moving to and from bed to chair: 3 - A Little Assistance Walk in hospital room: 3 - A Little Assistance Climbing 3-5 steps with a railin - Total Assistance CURRENT [facility] Mobility Raw Score: 17 CURRENT [facility] Mobility Functional Limitation/Modifier: 50.57% Currently Impaired in [...] Summary. Rico Hicks PT, DPT Pager #: [phone] License #: [id number] * Tito Hunt MD - 04/22/2022 8:08 [...] Assessment/Intervention: Transfer Assessment/Intervention: Sit to Stand Transfer [place] Level: Sit->Stand: contact guard assist Assistive Device: Sit->Stand: armed chair Skilled Rationale: Positioning, Verbal cues, Initiation and execution of task Skilled Intervention/Details: Sit->Stand: 1x from bedside chair, 1x from toilet, 2x from chair in bathroom Stand to Sit Transfer [place] Level: Stand->Sit: contact guard assist Assistive Device: Stand->Sit: armed chair Skilled Rationale: Positioning, Verbal cues, Initiation and execution of task, Controlled descent for sitting Skilled Intervention/Details: Stand->Sit: 4x reps, cues to reach back for arm rests and utilize eccentric control for slow, controlled lowering to seated position Toilet Transfer [place] Level: Toilet: contact guard assist Assistive Device: Toilet: grab bars Skilled Rationale: Positioning, Verbal cues, Controlled descent for sitting Skilled Intervention/Details: Toilet: Pt utilized right sided grab bar for increased stability in transfer Functional Mobility: Functional Mobility [place] Level: Functional Mobility/Gait: contact guard assist (initially Min Ax1, progressing to CGA with Rt. VENEER CLIPPER HELPER) Assistive Device: Functional Mobility/Gait: hand held assist [...] CGA for ambulation bathroom>bedside chair. Rt sided VENEER CLIPPER HELPER provided for improved stability and to reduce [...] Acute Physical Therapy Treatment Prior to Admission [facility] score(s): PRIOR LEVEL AM-PAC Mobility Raw Score: [...] strategies Mobility Assessment/Intervention: Supine to Sit Mobility [place] Level: Supine->Sit: stand-by assist Skilled Rationale: Positioning, Sequencing, Hand placement, Tactile cues Transfer Assessment/Intervention: Sit to Stand Transfer [place] Level: Sit->Stand: minimum assist (75% patient effort) Skilled Rationale: Positioning, Sequencing, Hand placement, Verbal cues, Tactile cues, Energy conservation, Breathing strategies Skilled Intervention/Details: Sit->Stand: x5 Stand to Sit Transfer [place] Level: Stand->Sit: contact guard assist Bed-Chair Transfer [place] Level: Bed<->Chair: minimum assist (75% patient effort) Skilled Rationale: Positioning, Sequencing, Hand placement, Verbal cues, Tactile cues Gait/Functional Mobility Assessment/Intervention: Gait Assessment [place] Level: Gait: contact guard assist Ambulation Distance [...] improved stepping and taj. Outcome Score(s): CURRENT [facility] Basic Mobility Inpatient Short Form Turning over in bed: 4 - No Assistance Sitting/standing from chair: 3 - A Little Assistance Moving from lying on back to sittin - A Little Assistance Moving to and from bed to chair: 3 - A Little Assistance Walk in hospital room: 3 - A Little Assistance Climbing 3-5 steps with a railin - Total Assistance CURRENT [facility] Mobility Raw Score: 17 CURRENT [facility] Mobility Functional Limitation/Modifier: 50.57% Currently Impaired in [...] Summary. Rico Hicks PT, DPT Pager #: [phone] License #: [id number] * Lauren Torres RN - 04/21/2022 10:40 [...] needs and planning. QUINTON Hannon RN Clinical Frame Table Operator * Dontrell Garcia PT - 04/20/2022 9:51 [...] guard Transfer Assessment: Sit to Stand Transfer [place] Level: Sit->Stand: minimum assist (75% patient effort) Physical Assist: Sit->Stand: 2 person assist Skilled Rationale: Hand placement, Tactile cues, Facilitate anterior shift Stand to Sit Transfer [place] Level: Stand->Sit: minimum assist (75% patient effort) Physical Assist: Stand->Sit: 2 person assist Skilled Rationale: Hand placement, Tactile cues, Controlled descent for sitting Gait/Functional Mobility: Gait Assessment [place] Level: Gait: minimum assist (75% patient effort) Physical Assist: Gait: 2 person assist Assistive Device: Gait: hand held assist Ambulation Distance (Feet): 10 Gait Deviations Identified: decreased taj, decreased gait speed, decreased step length, decreased stride length Stairs: Outcome Score(s): CURRENT [facility] Basic Mobility Inpatient Short Form Turning over [...] with a railin - Total Assistance CURRENT [facility] Mobility Raw Score: 12 CURRENT [facility] Mobility Functional Limitation/Modifier: 68.66% Currently Impaired in [...] Edema: Mobility Assessment: Sit to Supine Mobility [place] Level: Sit->Supine: minimum assist (75% patient effort) Physical Assist: Sit->Supine: 2 person assist Bed Features/Set-up: Sit->Supine: Use of bed rail, Head of bed elevated Skilled Rationale: Positioning, Verbal cues, Sequencing Transfer Assessment: Sit to Stand Transfer [place] Level: Sit->Stand: minimum assist (75% patient effort) Physical Assist: Sit->Stand: 2 person assist Skilled Rationale: Positioning, Verbal cues, Full extension to upright positioning/posture, Uprightgaze/neck extension Stand to Sit Transfer [place] Level: Stand->Sit: minimum assist (75% patient effort) Physical Assist: Stand->Sit: 2 person assist Skilled Rationale: Positioning, Verbal cues, Controlled descent for sitting, Cues for increased safety Toilet Transfer [place] Level: Toilet: minimum assist (75% patient effort) Physical Assist: Toilet: 2 person assist Assistive Device: Toilet: grab bars Skilled Rationale: Positioning, Hand placement, Verbal cues, Full extension to upright positioning/posture, Cues for increased safety Functional Mobility: Functional Mobility [place] Level: Functional Mobility/Gait: minimum assist (75% patient [...] Summary. [facility] Discharge instructions* Discharge Instructions* Radha Chinchilla MD - 04/27/2022 10:32 AM EST - Please call your local phlebotomy lab assistant to make an appointment. Ideally this appointment will be sometime in the next 1-2 weeks. If you are able to get in with them in that time frame, you can cancel your appointment with Dr. Munoz. If your local phlebotomy lab assistant is not able to see you in [...] Care Everywhere. * Blood Pressure Test: Home ([place]) * TAVR (Transcatheter Aortic Valve Replacement) - Care After ([facility]) ([place]) [facility]* Plan of Care - Tasia [...] Diabetes, Type 2 (Adult) CPG). Outcome: Ongoing [facility]01-27-2023 Note* Plan of Care - Nathalie Damon [...] Estimated Discharge Date 04/26 Nathalie Damon RN [facility]01-27-2023 Note* Op Note - Nicho Lucas MD [...] we placed a left common femoral artery 6-Tanzanian sheath percutaneously. A 6 Tanzanian pigtail was advanced over a guidewire into the ascending aorta and parked in the right sinus of Valsalva. A 9 sri lankan left venous sheath was placed in the femoral vein. A balloon catheter tip pacing wire was advanced into the RV and secured. Good capture was achieved. The right common femoral artery was then accessed percutaneously using Seldinger technique. The patient was heparinized. The artery was preclosed with the placement of two Perclose devices. A guidewire was inserted and a 8-Tanzanian pigtail catheter was advanced into the descending [...] MD Attending Surgeon Division of Cardiac Surgery [facility] Work Phone: [phone] Note* Brief Op Note - Nicho Lucas MD - 04/25/2022 11:06 AM EST Finesse Prather ([id number]) PRE OPERATIVE DIAGNOSIS Aortic valve stenosis, etiology [...] ANESTHESIOLOGIST No anesthesia staff entered. SURGICAL STAFF Population Geneticist: CHIQUI Hernandez Production Machine Tender: Alok Molina Sedation Nurse: Miguel Ho RN; Barbie Garg, FRANCISCO Documenter: Gely Marvin RN COMPLICATIONS None ESTIMATED BLOOD LOSS 50 ml SPECIMENS No specimen sent * No specimens in log * Nicho Lucas MD April 25, 2022 11:06 AM [facility]01-26-2023 Attending History and physical note* SOULEYMANE Genao [...] STS Score: 13.508% Clinical Trial: No Referring Internal Salesperson: INPT Consult Procedural Plan: 23 mm Lerner [...] recent she was ultimately taken to the slab installer and had 2 drug eluting stents (HIRAL) placed to the LAD. Due to persistent symptoms she underwent PCI on 04/04/22 with 1 HIRAL placed to the RCA. Pt had sudden onset shortness of breath per family. She was picked up by ems and brought to [place]. EMS placed pt on BIPAP because pt [...] 1 fluid ounce by mouth daily. OMEGA 9-MQNNRO-VLMMSYGJEE PO Yes Yes Sig: Take 0.5 fluid ounces by mouth 2 times daily. Dulce-3 Fatty Acids (OMEGA-3 FISH OIL PO) Yes [...] ACS Code Status: DNRCC-ARREST Plan discussed with clinical fellow Signed, Tito Hunt MD PGY-1, Emergency Medicine [facility]01-26-2023 History and physical note* Jacinta Sebastian, [employer] [facility] - 04/24/2022 2:34 PM EST STRUCTURAL HEART [...] STS Score: 13.508% Clinical Trial: No Referring Internal Salesperson: INPT Consult Procedural Plan: 23 mm Lerner [...] physical update was completed by Jacinta Sebastian APRN-PARTS ROOM CLERK. 04/24/2022, 2:35 PM Source Note - Tito [...] recent she was ultimately taken to the slab installer and had 2 drug eluting stents (HIRAL) placed to the LAD. Due to persistent symptoms she underwent PCI on 04/04/22 with 1 HIRAL placed to the RCA. Pt had sudden onset shortness of breath per family. She was picked up by ems and brought to [place]. EMS placed pt on BIPAP because pt [...] Socioeconomic History Marital status: Spouse name: Earl Prathre Number of children: 10 Tobacco Use Smoking [...] 1 fluid ounce by mouth daily. OMEGA 5-OBDMMQ-AUMBOEOTYJ PO Yes Yes Sig: Take 0.5 fluid ounces by mouth 2 times daily. Dulce-3 Fatty Acids (OMEGA-3 FISH OIL PO) Yes [...] (non-insulin dependent) who presented to the OSH ([place]) with acute shortness of breath yesterday evening. [...] ACS Code Status: DNRCC-ARREST Plan discussed with clinical fellow Signed, Tito Hunt MD PGY-1, Emergency Medicine [facility]* Plan of Care - Radha [...] improved ability tosafely complete ADLs. Outcome: Ongoing [facility]01-26-2023 Note* Plan of Care - Nathalie Damon [...] Estimated Discharge Date 04/26 Nathalie Damon RN [facility]01-25-2023 Note* Plan of Care - Rosina Luke [...] Response Clinical Practice Guideline (CPG) Outcome: Ongoing [facility]01-25-2023 Note* Plan of Care - Mena Torres [...] Thursday CURRENT HOSPITALIZATION/ LOS: Admit Date: 04/20/2022 [facility] LOS: 3 days ? MEDICATIONS: Scheduled Meds: [...] (H) 04/20/2022 No results found for: TSH, [id number], TEP57QVM, TSHBASELINE, TSHULTRASEN, TSHRFT4 ? Mena Torres RN [facility]01-25-2023 Note* Plan of Care - Radha Finch [...] output. 5. RD to continue to follow. [facility]01-25-2023 Note* Plan of Care - Radha Delgadillo [...] improved ability tosafely complete ADLs. Outcome: Ongoing [facility]01-24-2023 Note* Plan of Care - Rosina Luke [...] outcomes by discharge/transition of care. Outcome: Ongoing [facility]01-24-2023 Note* Plan of Care - Valerie Bishop [...] Outcome: Progressing Toward Goal Valerie Bishop RN [facility]01-24-2023 Note* Plan of Care - Rico Hicks, [...] for functional mobility. Outcome: Progressing Toward Goal [facility]01-24-2023 Note* Plan of Care - Rosina Luke RN - 04/22/2022 1:44 AM EST Problem: Patient Care Overview Goal: Plan of Care Review Outcome: Ongoing Goal: Individualization & Mutuality Outcome: Ongoing Goal: Discharge Needs Assessment Outcome: Ongoing Goal: Interdisciplinary Rounds/Family Conf Outcome: Ongoing Problem: Fall/Trauma/Injury Risk (Adult) Goal: Fall/Trauma/Injury Risk: Absence of Trauma/Injury/Falls Description: Patient will demonstrate the desired outcomes. Outcome: Ongoing [facility]01-23-2023 Note* Plan of Care - Rico Hicks [...] for functional mobility. Outcome: Progressing Toward Goal [facility]01-23-2023 Note* Plan of Care - Cristina Diaz RN - 04/21/2022 11:54 AM EST Problem: Patient Care Overview Goal: Plan of Care Review Outcome: Ongoing Goal: Individualization & Mutuality Outcome: Ongoing Goal: Discharge Needs Assessment Outcome: Ongoing Goal: Interdisciplinary Rounds/Family Conf Outcome: Ongoing Problem: Fall/Trauma/Injury Risk (Adult) Goal: Fall/Trauma/Injury Risk: Absence of Trauma/Injury/Falls Description: Patient will demonstrate the desired outcomes. Outcome: Ongoing [facility]01-23-2023 Note* Plan of Care - Radha Delgadillo [...] improved ability tosafely complete ADLs. Outcome: Ongoing [facility]01-23-2023 Note* Plan of Care - Adolph Corea [...] tosafely complete ADLs. Outcome: Progressing Toward Goal [facility]01-23-2023 NoteAcute Coronary Syndrome (ACS): Initial Evaluation and Management: [email or web address]/[email or web address]/ebm/Documents/Guidelines/Acute%20Coronary%20Sy ndrome.pdf#search=troponin [facility]01-22-2023 NoteAcute Coronary Syndrome (ACS): Initial Evaluation and Management: [email or web address]/sites/ebm/Documents/Guidelines/Acute%20Coronary%20Sy ndrome.pdf#search=troponin [facility]01-22-2023 NoteAcute Coronary Syndrome (ACS): Initial Evaluation and Management: [email or web address]/sites/ebm/Documents/Guidelines/Acute%20Coronary%20Sy ndrome.pdf#search=troponin [facility]01-22-2023 Note* Plan of Care - Cristina Diaz [...] will demonstrate the desired outcomes. Outcome: Ongoing [facility]01-22-2023 Note* Plan of Care - Dontrell Garcia, [...] improve functional mobility and safety. Outcome: Ongoing [facility]01-22-2023 Note* Plan of Care - Radha Delgadillo, [...] improved ability tosafely complete ADLs. Outcome: Ongoing [facility]01-22-2023 NoteAcute Coronary Syndrome (ACS): Initial Evaluation and Management: [email or web address]/sites/ebm/Documents/Guidelines/Acute%20Coronary%20Sy ndrome.pdf#search=troponin [facility]01-22-2023 NoteAcute Coronary Syndrome (ACS): Initial Evaluation and Management: [email or web address]/sites/ebm/Documents/Guidelines/Acute%20Coronary%20Sy ndrome.pdf#search=troponin [facility]01-22-2023 Note* Certification - Paul Blue MD - [...] Blue MD Internal Medicine Resident, PGY-3 [facility]01-22-2023 Note* Nursing Notes - Adolph Corea RN - 04/20/2022 3:45 AM EST Patient admitted to [facility] for uncontrolled HTN accompanied by SOB [...] Score: 20 LDA Added:No Adolph Corea RN [facility]01-20-2023 NoteEXAM: CT Angiogram of the chest, abdomen [...] granulomatous nodes Pleural Spaces: Moderate right, and wgxme-tu-vhamqslq left-sided pleural effusions. Lung Parenchyma: Mild interlobular [...] noted as above. 2. Moderate right, and carib-ty-xxleotmq left-sided pleural effusions. 3. Mild interstitial pulmonary edema. 4. Other ancillary findings are noted as above. Please refer to the separate cardiology report regarding the cardiac, aortic valve, aortic root, and coronary findings/measurements. [facility]01-07-2023 History of Present illness Narrative * Kathy Callejas RPh,PharmD - 04/05/2022 3:06 PM EST Images from the original note were not included. [facility]: [facility] the [facility]s): Total cost is $4.00. I have reviewed the Discharge Rx Reconciliation Report. Discharge date was confirmed with the [facility] expected discharge date. The discharge prescription(s) will be Tubed to the patient on 04/05/2022. Kathy Callejas RPh,PharmD [facility] [phone] [facility] [phone] [facility] [phone] Bedside delivery [phone] * Murphy Pereyra PT - 04/05/2022 1:32 [...] No charges Murphy Pereyra, PT License # [id number] Pager # [phone] * Genoveva Bennett OT - 04/05/2022 9:48 [...] Remaining: additional drug eluting stent placed in slab installer today, PT/OT evaluations pending Assessment and Discharge Plan as of 04/04/2022 5:48 PM Anticipated discharge disposition: Home with Home Health Anticipated Services at Discharge: Senior Care, Physical Therapy, Occupational Therapy Readmission Risk Score [...] (non-insulin dependent) who presented to the OSH ([place]) with chest pain and dyspnea. Acute NSTEMI [...] This plan was discussed with the attending elderly companion, Chadwick Heart*. Sujatha Matute MD Internal Medicine, [...] plan with the resident/fellow. Chadwick Heart MD instrumentation instructor Department of Medicine Division of Cardiovascular Medicine [facility] * Murphy Pereyra PT - 04/04/2022 8:00 [...] Initial Evaluation/Screen Completed? attempted ? No charges Muprhy Pereyra PT License # [id number] Pager # [phone] * Rafi Ferguson, Pharm Student - 04/03/2022 3:06 PM EST Department of Pharmacy Admission Medication Reconciliation Note Patient: Finesse Prather Room/Bed: 5040/A The patient's allergies have been reviewed with Patient, and I have reviewed the patient's home medication list with the following sources [facility] records, Contacted [facility] pharmacy ( ), Patient Recall with prompting and OARRs. I have also reviewed this list with the pharmacist. I am recommending the following changes to the home medication list. These recommendations are considered preliminary until attestation of this note by a pharmacist. Added to Home Medications: B Complex Vitamins Multiple Vitamins-Minerals (Multivitamin & Mineral) Liquid Dulce-3 Fatty Acids Cap Dulce 0-Fvvwpr-Kzktqvfihg PO Liquid Deleted from Home Medications: Isosorbide Mononitrate SR 30 mg Multivitamins w/ minerals Tab Dulce 6-Lvkbnp-Rphnabhywb ([facility]) Cap Edits to Home [...] Pharm Student Preceptor: Cruz Huber Phone #: [phone] Date/Time: 04/03/2022 3:07 PM Time Spent: 90 minutes Associated attestation - Cruz Huber RPH - 04/03/2022 3:47 PM EST Department of Pharmacy Admission Medication Reconciliation Note Patient: Finesse Prather Room/Bed: 5040/A I have reviewed the home medication list with the Student. All changes to the home medication list have been updated in [facility]. Updated [facility]SULT[employer] Med List: Prior to Admission Medications Prescriptions [...] 1 fluid ounce by mouth daily. OMEGA 7-FFYHJF-LRZFUBCONQ PO Sig: Take 0.5 fluid ounces by mouth 2 times daily. Dulce-3 Fatty Acids (OMEGA-3 FISH OIL PO) Sig: [...] with any further questions. Name: Cruz Huber [facility] Phone #: [phone] Date/Time: 04/03/2022 3:46 PM * NILO Calvillo [...] adequate po intake. No notable wt changes. technical training coordinator will continue to follow/assist prn. Pt is on the STAND skin bundle. Encourage 2-4oz. of EPHP oral supplement with med pass to optimize nutrition to help promote good skin integrity/prevent skin breakdown/promote wound healing Deshawn Issa DTR Pager: [phone] * Sujatha Matute MD - 04/03/2022 7:11 [...] (non-insulin dependent) who presented to the OSH ([place]) with chest pain and dyspnea. Acute NSTEMI [...] This plan was discussed with the attending elderly companion, Chadwick Heart*. Sujatha Matute MD Internal Medicine, [...] or periapical radiolucencies at the remaining dentition. [facility] DUPLEX CAROTID BILATERAL Final Result CT [...] plan with the resident/fellow. Chadwick Heart MD instrumentation instructor Department of Medicine Division of Cardiovascular Medicine [facility] * Duncan Jared - 04/02/2022 9:45 AM [...] participating in rehab at their local facility: [facility]. AMB REFERRAL TO CARDIAC REHAB HAS BEEN [...] topics below were discussed. 1. Pathophysiology of CAD/NV 2. Left Heart Cath 3. Target Lipid Profile 4. Heart Healthy Dietary Guidelines 5. Cardiac Medications 6. Signs/Symptoms to Monitor/Report 7. Risk Factor Modification/Reduction 8. Activity Guidelines/Recommendations We will continue to follow up with patient as needed until discharge for education review and activity progression. VANESSA Kiser ([phone]) IP Cardiopulmonary & Vascular Rehab * Sujatha [...] (non-insulin dependent) who presented to the OSH ([place]) with chest pain and dyspnea. Acute NSTEMI [...] TTE ordered; trying to get images from [place] - Cleared by dentistry - CT TAVR [...] This plan was discussed with the attending elderly companion, Chadwick Heart*. Sujatha Matute MD Internal Medicine, [...] plan with the resident/fellow. Chadwick Heart MD instrumentation instructor Department of Medicine Division of Cardiovascular Medicine [facility] * Ana Mata RN - 04/01/2022 5:30 PM EST Discharge Planning Patient Assessment Admission Assessment Patient Assessment Completed: Initial Anticipated discharge disposition: Home Reason for Admission: triple vessel disease, aortic stenosis Is the patient able to participate in the assessment?: Yes Information source: Patient, Child(sincere), Review of Medical Record Information Source Name/Contact: asad Prather [phone] Has the patient been admitted to any [...] Yes Name and Contact information: Earl Prather [phone] Adult Child(sincere), List All Adult Children: Yes Name and Contact information: Stas Prather [phone] Would you like to add additional adult children?: Yes Name and Contact information: Joselo Prather [phone] Outpatient Providers Does patient have a primary care physician? : Yes When was the patient's last PCP visit?: (December 2021) Does the patient follow any specialists?: Yes Patient Care Team: Murphy Burton MD as PCP - General (Family Medicine) Cardiology: Dr. Narendra Almonte [phone] Environment/Caregivers Is the patient from a facility or intermediate?: No Patient lives with: Spouse or Partner [...] insurance coverage? : Yes (with use of [employer]) Is the patient on Anticoagulation? : No [facility] [address] [place] [phone] [address] Initial Discharge Planning Anticipated discharge disposition: Home [...] (non-insulin dependent) who presented to the OSH ([place]) with chest pain and dyspnea. Acute NSTEMI [...] -TTE ordered; trying to get images from [place] - Cleared by dentistry - CT TAVR [...] Labs-ABGs Labs-CBC WBC/Hgb/Hct/Plts: 7.15/12.3/37.1/248 (04/01 156) Labs-Chem 7([facility]) Bun/Creat/Cl/CO2/Glucose: 29/0.69/105/22/176 (04/01 156-04/01 1056) Na/K+/Phos/Mg/Ca: 137/4.6/--/--/-- [...] or periapical radiolucencies at the remaining dentition. [facility] DUPLEX CAROTID BILATERAL Final Result CT [...] plan with the resident/fellow. Chadwick Heart MD instrumentation instructor Department of Medicine Division of Cardiovascular Medicine [facility] * Ele Saavedra MD - 04/01/2022 12:08 PM EST [facility] Medicine Progress Note Patient: Finesse Prather, [...] Ptt/Pt/Inr: 81.3/--/-- (04/01 156) Tele reviewed. * Eel Saavedra MD - 03/31/2022 9:37 AM EST [facility] Medicine Progress Note Patient: Finesse Prather, [...] may be able to get images from [place]. Needs dentistry evaluation. Carotid doppler with 1-49% [...] Petersen MD - 03/30/2022 12:14 PM EST [facility] Medicine Progress Note Patient: Finesse Prather, [...] Petersen MD - 03/29/2022 11:44 AM EST [facility] Medicine Progress Note Patient: Finesse Prather, [...] Ptt/Pt/Inr: 28.1/12.8/1.0 (03/29 34) [facility]* Nursing Notes - Guadalupe Matta RN [...] breath. Sent secure chatto Dr Matute. Waiting elderly companion back at this time. 0952: Dr Cox voiced understanding. No new orders obtained. [facility]01-07-2023 Miscellaneous Notes* Nursing Notes - Guadalupe Matta [...] breath. Sent secure chatto Dr Matute. Waiting elderly companion back at this time. 0952: Dr Cox voiced understanding. No new orders obtained. * Brief Op Note - Tito Holguin MD - 04/04/2022 11:16 AM EST Preliminary Report - Brief Cardiac Catheterization Procedure Note Finesse Prather ([id number]) Pre Procedural Diagnosis 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 [I25.110] NSTEMI [...] Jacobo Alfaro MD - Fellow Procedural Staff Population Geneticist: CHIQUI Hernandez Production Machine Tender: RT Daphne Sedation Nurse: Tomas Gibson RN [...] area. Following page sent to ACS resident, 705Cindy Prather: Right groin site oozing increased, slight hardness near the top of incision. Any orders? Thanks Digna [id number] 1848: ACS resident at bedside. 1902: ACS [...] Brief Cardiac Catheterization Procedure Note Finesse Prather ([id number]) Pre Procedural Diagnosis 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 [I25.110] NSTEMI [...] Tito Bartholomew MD - Fellow Procedural Staff Population Geneticist: Mira Caban RN; Ralf Martin, FRANCISCO; Pelon Gilliam RN Documenter: Kathy Barbour RN Full report to follow Tito Bartholomew MD April 01, 2022 2:56 PM * Nursing Notes - Maty Latham RN - 04/01/2022 6:02 AM EST 5040 Natalia: awoke with chest pain and bilateral arm numbness. Titrating Nitro Gtt, currently at 30mcg/hr, c/o SOB on 2LNC 97% B/P 140/64. Maty SINGH [id number] Copy of text page sent to MD elderly companion for RH service, await response. 0615: 5040 Natalia: Nitro gtt @50mcg/min, chest pain resolving, b/p 129/61 HR 86. Son, who is POA isat bedside and has questions/concerns hed like to address with MD. Maty SINGH [id number], copy of text page sent to MD elderly companion for RH service. . * Plan of [...] not available yet. [place], [place] [phone], copy of text page sent to MD elderly companion for KEM narayanamor, await response. * Nursing [...] the patient continues to have repeated episodes, clinical fellow to be contacted. * Significant Event - Henrique Petersen MD - 03/29/2022 6:32 PM EST This is a 87-year-old female with recently diagnosed triple-vessel coronary artery disease transferred to [facility] for evaluation for CABG. She also has [...] patient is 35 minutes Henrique Petersen MD Plant Breeder of Internal Medicine Division of Hospital Medicine [facility] * Plan of Care - Kaylin [...] be discharge to home. [facility]* Brief Op Note - Tito Holguin MD - 04/04/2022 11:16 AM EST Preliminary Report - Brief Cardiac Catheterization Procedure Note Finesse Prather ([id number]) Pre Procedural Diagnosis 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 [I25.110] NSTEMI [...] Jacobo Alfaro MD - Fellow Procedural Staff Population Geneticist: CHIQUI Hernandez Production Machine Tender: RT Daphne Sedation Nurse: Tomas Gibson RN Documenter: Barbie Garg RN Full report to follow Tito Holguin MD April 04, 2022 11:16 AM [facility] Work Phone: [phone] Note* Nursing Notes - Kang Landers RN - 04/04/2022 7:40 AM EST Pt b/p elevated 191/76. Acute coronary team at bedside and made aware. No new orders at this time. Kang Landers RN [facility]01-06-[facility]23 Note* Plan of Care - Monet Castle RN - 04/04/2022 5:06 AM EST Problem: Patient Care Overview Goal: Plan of Care Review Outcome: Met This Shift Goal: Individualization & Mutuality Outcome: Met This Shift [facility]01-06-2023 NoteAcute Coronary Syndrome (ACS): Initial Evaluation and Management: [email or web address]/sites/ebm/Documents/Guidelines/Acute%20Coronary%20Sy ndrome.pdf#search=troponin [facility]01-06-2023 NoteAcute Coronary Syndrome (ACS): Initial Evaluation and Management: [email or web address]/sites/ebm/Documents/Guidelines/Acute%20Coronary%20Sy ndrome.pdf#search=troponin [facility]01-06-2023 Note* Plan of Care - Lino Trotter [...] 180 Lino Trotter MD Internal Medicine PGY3 [facility] Work Phone: [phone]) 513-666701-05-2023 Note* Plan of Care - Kaylin Collado [...] outcomes by discharge/transition of care. Outcome: Ongoing [facility]01-[facility]-2023 Note* Plan of Care - Madelyn Salvador [...] outcomes by discharge/transition of care. Outcome: [facility] Discharge instructions* Discharge Instructions* John Razo RN - 04/02/2022 9:07 AM EST Images from the original note were not included. For more information about Heart Failure please visit this link for an online interactive workbook or QR code below: [email or web address] * Attachments The following attachments cannot be sent through Care Everywhere. * Stent: How to Protect ([facility]) ([place]) documented in this encounterOSDay[facility]01-03-2023 Note* Nursing Notes - Digna Cardenas RN - 04/01/2022 6:42 PM EST 1835: Assessed pts R groin site and noticed increased oozing/hardened area. Following page sent to ACS resident, 3570 Natalia: Right groin site oozing increased, slight hardness near the top of incision. Any orders? Thanks Digna [id number] 1848: ACS resident at bedside. 1902: ACS resident holding manual pressure at bedside. [facility]01-[facility] Note* Plan of Care - Digna Cardenas [...] outcomes by discharge/transition of care. Outcome: Ongoing [facility] Note* Brief Op Note - Tito Bartholomew MD - 04/01/2022 2:56 PM EST Preliminary Report - Brief Cardiac Catheterization Procedure Note Finesse Prather ([id number]) Pre Procedural Diagnosis 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 [I25.110] NSTEMI [...] Tito Bartholomew MD - Fellow Procedural Staff Population Geneticist: Mira Caban RN; Ralf Martin, FRANCISCO; Pelon Gilliam, FRANCISCO Documenter: Kathy Barbour RN Full report to follow Tito Bartholomew MD April 01, 2022 2:56 PM [facility]01-03-2023 Note* Nursing Notes - Maty Latham RN - 04/01/2022 6:02 AM EST 5040 Natalia: awoke with chest pain and bilateral arm numbness. Titrating Nitro Gtt, currently at 30mcg/hr, c/o SOB on 2LNC 97% B/P 140/64. Maty SINGH [id number] Copy of text page sent to MD elderly companion for RH service, await response. 0615: 5040 Natalia: Nitro gtt @50mcg/min, chest pain resolving, b/p 129/61 HR 86. Son, who is POA isat bedside and has questions/concerns hed like to address with MD. Maty SINGH [phone], copy of text page sent to MD elderly companion for RH service. . [facility]01-03-2023 Note* Plan of Care - Maty Latham [...] (Acute Coronary Syndrome) (Adult) CPG). Outcome: Ongoing [facility]23 Consult note* Trav Ray, DDS - 03/31/2022 [...] These extractions can be done in the [facility] as an inpatient service. [...] transport bed/wheelchair to dental chair, please notify [facility] dental clinic in advance of appointment. Please call [phone] to schedule this appointment during normal business hours (M-F 7:30-4:30 pm) with the dental clinic. Due to the large number of phone calls the clinic is currently receiving,please leave a message at this number. Clinic staff will return the [facility] Transportation to our clinic should also be arranged. Treatment will take an estimated time of 2 hours. Thank you for involving us in the care of this patient. Please do not hesitate to call me at [phone] you have any questions. Pager ID:[phone] Dr. Ramon Consult[address] with Dr. Vargas [facility]01-02-2023 Consult note* Trav Ray DDS - 03/31/2022 [...] , , UD AND COMMUNICATION [facility]: For Blood Glucose LESS THAN [...] These extractions can be done in the [facility] as an inpatient service. [...] transport bed/wheelchair to dental chair, please notify [facility] dental clinic in advance of appointment. Please call [phone] to schedule this appointment during normal business hours (M-F 7:30-4:30 pm) with the dental clinic. Due to the large number of phone calls the clinic is currently receiving,please leave a message at this number. Clinic staff will return the call to schedule the patient inthe [facility] clinic. Transportation to our clinic should also be arranged. Treatment will take an estimated time of 2 hours. Thank you for involving us in the care of this patient. Please do not hesitate to call me at [phone] you have any questions. Pager ID:[phone] Dr. [...] questions or concerns. Christie Bartholomew MD Interventional Director Acute Cardiac testing: Cath Results 03/21/22 (outside institution): [...] . Finesse Prather in consultation at the [facility] on 03/31/2022 for evaluation of her [...] echocardiogram as above. She was transferred to [facility] on 03/28/2022 for evaluation for revascularization of coronaries and valve replacement. Since arriving at [facility] she has been transitioned to oral [...] CP persists after 1st dose, call 911 Dulce 5-Mghxat-Qedhffhjed ([employer]) 250-2.5-0.5 MG capsule Take 1 capsule by [...] duties. Is on plavix - per her phlebotomy lab assistant, she is to continue due to PAD [...] pain and dyspnea, found to have NSTEMI. [facility] reviewed - reasonable targets for RCA, OM, [...] TAVR CT for planning. documented in this encounterSelect [facility] [place]23 Consult note* Tito Bartholomew MD - 03/31/2022 [...] questions or concerns. Christie Bartholomew MD Interventional Director Acute Cardiac testing: Cath Results 03/21/22 (outside institution): [...] . Finesse Prather in consultation at the [facility] on 03/31/2022 for evaluation of her [...] echocardiogram as above. She was transferred to [facility] on 03/28/2022 for evaluation for revascularization of coronaries and valve replacement. Since arriving at [facility] she has been transitioned to oral [...] CP persists after 1st dose, call 911 Dulce 6-Beirun-Duxajogayk ([employer]) 250-2.5-0.5 MG capsule Take 1 capsule by [...] 10/12/2010 No results found for: TROP, BNP [facility] Work Phone: [phone] 260-256601-02-2023 Note* Plan of Care - Kaylin Collado [...] outcomes by discharge/transition of care. Outcome: Ongoing [facility]01-02-2023 Note* Plan of Care - Maty Latham [...] outcomes by discharge/transition of care. Outcome: Ongoing [facility]01-02-2023 Note* Nursing Notes - Maty Latham RN - 03/31/2022 4:03 AM EST 5040 Natalia: would you please increased apresoline PRN frequency to Q4hrs? She needs a dose but it's not available yet. Thank you, Maty SINGH [phone], copy of text page sent to MD elderly companion for lexus, await response. [facility]01-01-2023 Note* Nursing Notes - Kaylin Collado RN [...] reports diminished pain @1837 Nitroglycerin gtt started [facility]01-01-2023 Note* Plan of Care - Sabas Petersen [...] infusion Sabas Petersen MD [facility]01-01-2023 Note* Plan of Care - Kaylin [...] outcomes by discharge/transition of care. Outcome: Ongoing [facility]01-01-2023 Note* Plan of Care - Shelly Thomas [...] ultrasound Mary Thomas MD Cardiothoracic Surgery [phone] [facility]12-31-2022 Note* Plan of Care - Monet Castle [...] discharge/transition of care. Outcome: Met This Shift [facility]12-31-2022 NoteAcute Coronary Syndrome (ACS): Initial Evaluation and Management: [email or web address]://[email or web address]/sites/ebm/Documents/Guidelines/Acute%20Coronary%20Sy ndrome.pdf#search=troponin [facility]12-31-2022 NoteAcute Coronary Syndrome (ACS): Initial Evaluation and Management: [email or web address]/sites/ebm/Documents/Guidelines/Acute%20Coronary%20Sy ndrome.pdf#search=troponin [facility]12-31-2022 Note* Nursing Notes - Kaylin Collado RN [...] obtained showing normal results, BP: 103/50 HR:67 [facility]12-31-2022 NoteAcute Coronary Syndrome (ACS): Initial Evaluation and Management: [email or web address]/sites/ebm/Documents/Guidelines/Acute%20Coronary%20Sy ndrome.pdf#search=troponin [facility]12-31-2022 Note* Significant Event - Henrique Petersen MD [...] the patient continues to have repeated episodes, clinical fellow to be contacted. [facility] Work Phone: [phone] Note* Significant Event - Henrique Petersen MD - 03/29/2022 6:32 PM EST This is a 87-year-old female with recently diagnosed triple-vessel coronary artery disease transferred to [facility] for evaluation for CABG. She also has [...] patient is 35 minutes Henrique Petersen MD Plant Breeder of Internal Medicine Division of Hospital Medicine [facility]-31-2022 NoteAcute Coronary Syndrome (ACS): Initial Evaluation and Management: [email or web address]://[email or web address]/sites/ebm/Documents/Guidelines/Acute%20Coronary%20Sy ndrome.pdf#search=troponin [facility]12-31-2022 Consult note* Shelly Thomas MD - 03/29/2022 [...] duties. Is on plavix - per her phlebotomy lab assistant, she is to continue due to PAD [...] pain and dyspnea, found to have NSTEMI. [facility] reviewed - reasonable targets for RCA, OM, [...] echocardiogram and obtain TAVR CT for planning. [facility] Work Phone: [phone] 394-993412-31-2022 Note* Plan of Care - Kaylin Collado [...] factors/behavior modification for fall/injury prevention Outcome: Ongoing [facility]12-30-2022 Note* Certification - Tanya Hylton MD - 03/28/2022 10:53 PM EST I certify that this patient requires inpatient services at this time. I anticipate the expected length of stay will include at least two midnights. Inpatient services are due to the following medicalconcerns aortic stenosis and NSTEMI. Plans for post hospitalization care will be discharge to home. [facility]12-30-2022 History and physical note* Tanya Hylton MD [...] was determined that she would transfer to [facility] forevaluation for high risk PCI vs [...] WBC- 9.7, Hgb- 14.9, Plat- 242 hsTrop- 45-->42280 BNP: 549 LFTs wnl Review of Systems [...] Sig: Take 1 tablet by mouth daily. Dulce 2-Pihrwk-Gywhwxysvj ([employer]) 250-2.5-0.5 MG capsule Sig: Take 1 capsule [...] erythema Skin: No jaundice or rash Neuro: experimental worker 3-7, 9-11 intact and equal. Strength [...] 03/24/22 NSR, LVH, TWI I, AVL, V2-V6. [facility] History and physical note* Tanya Hylton MD [...] was determined that she would transfer to [facility] forevaluation for high risk PCI vs [...] WBC- 9.7, Hgb- 14.9, Plat- 242 hsTrop- 45-->40554 BNP: 549 LFTs wnl Review of Systems [...] Sig: Take 1 tablet by mouth daily. Dulce 1-Webbzc-Bcwhwgicck ([employer]) 250-2.5-0.5 MG capsule Sig: Take 1 capsule [...] erythema Skin: No jaundice or rash Neuro: experimental worker 3-7, 9-11 intact and equal. Strength [...] V2-V6. documented in this encounterOS[facility] HospitalEvaluation note* Diagnosis Onset Date Resolution Status Chest pain acute Essential hypertension acute Moderate to severe aortic stenosis acute Atherosclerotic heart diseas e of seneca-cayuga coronary artery without angina pectoris chronic HLD (hyperlipidemia) chronic History of aortic stenosis a cute History of diabetes mellitus acute Hypoxia acute Non-ST elevated myocardial infarction acute Pulmonary edema acute Respiratory failure acute [facility] Work Phone: Evaluation note* Diagnosis Onset Date Resolution Status Chest pain acute Essential hypertension acute Moderate to severe aortic stenosis acute Atherosclerotic heart diseas e of seneca-cayuga coronary artery without angina pectoris chronic HLD (hyperlipidemia) chronic CAD (coronary artery disease), seneca-cayuga coronary artery acute Carotid stenosis, left acute [...] artery acute Atherosclerotic heart diseas e of seneca-cayuga coronary artery without angina pectoris chronic Diabetes mellitus, type 2 ch ronic HLD (hyperlipidemia) chronic 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 PAD (peripheral artery disease) chronic [facility] Work Phone: Evaluation note* Diagnosis Stented coronary artery- Primary Postsurgical percutaneous transluminal coronary angioplasty status Acute chest pain Chest pain, unspecified Acute electrocardiogram changes Uncontrolled hypertension Unspecified essential hypertension Nonrheumatic aortic valve stenosis Aortic valve disorders 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 NSTEMI (non-ST elevated myocardial infarction) Acute myocardial infarction, subendocardial infarction, episode of care unspecified Coronary artery disease involving seneca-cayuga coronary artery of seneca-cayuga heart with angina pectoris Acute on chronic diastolic heart failure Essential hypertension Unspecified essential hypertension Acute respiratory failure with hypoxia Acute respiratory failure Aortic valve stenosis, etiology of cardiac valve disease unspecified Aortic stenosis Aortic valve disorders Acute on chronic diastolic heart failure Coronary artery disease involving seneca-cayuga coronary artery of seneca-cayuga heart with angina pectoris Essential hypertension Unspecified essential hypertension Acute respiratory failure with hypoxia Acute respiratory failure Type 2 Diabetes (A1C > 6.49%) 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 NSTEMI (non-ST elevated myocardial infarction) Acute myocardial infarction, subendocardial infarction, episode of care unspecified 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 NSTEMI (non-ST elevated myocardial infarction) Acute myocardial infarction, subendocardial infarction, episode of care unspecified documented in this encounter [facility]* Diagnosis Onset Date Resolution Status Chest pain acute Essential hypertension acute Moderate to severe aortic stenosis acute Atherosclerotic heart diseas e of sen[place]-cay[place] coronary artery without angina pectoris chronic HLD (hyperlipidemia) chronic CAD (coronary artery disease ), seneca-cayuga coronary artery acute Carotid stenosis, left acute [...] artery acute Atherosclerotic heart diseas e of [place] coronary artery without angina pectoris chronic Diabetes mellitus, type 2 ch ronic HLD (hyperlipidemia) chronic 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 PAD (peripheral artery disease) chronic [facility] Work Phone: Evaluation note* Diagnosis Nonrheumatic aortic valve stenosis Aortic valve disorders Acute on chronic diastolic heart failure Acute respiratory failure with hypoxia Acute respiratory failure Aortic valve stenosis, etiology of cardiac valve disease unspecified S/P TAVR (transcatheter aortic valve replacement) Aortic valve stenosis, etiology of cardiac valve disease unspecified documented in this encounter [facility] Center[facility] noteNo assessment information available [facility] Work Phone: Reason for referral (narrative)* Consultation (Routine) - New Request Specialty Diagnoses / Procedures Referred By Parish t Referred To Contact Cardiovascular Medicine Diagnoses NSTEMI (non-ST elevated myocardial infarction) Coronary artery disease involving seneca-cay[place] coronary artery of sen[place] heart with angina pectoris Aortic valve stenosis, etiology of cardiac valve disease unspecified Eder Jaime Jr., MD [address] [place] [address] Referral ID Status Reason Start Date Expiration Date V isits Requested Visits Authorized [id number] New Request 04/05/2022 04/30/2023 1 1 Scheduling Instructions Please schedule this patient in the Department of Cardiology. Ideally interventional cardiology for TAVR eval. * MRI/CAT Scan (Routine) - New Request Specialty Diagnoses / Procedures Referred By Contac t Referred To Contact Diagnoses Aortic valve stenosis, etiology of cardiac valve disease unspecified Procedures CT ANGIO TAVR EVALUATION [place] ANGIO ABD&PLVIS CNTRST MTRL W/WO CNTRST IMGES [place] RECON, CTA FOR SURG PLAN [place] ANGIO HRT CORNRY ART/BYPASS GRFTS CONTRST 3D POST Addison Hernandez, Eder Lopez MD [address] [place] [address] Referral ID Status Reason Start Date Expiration Date V isits Requested Visits Authorized [id number] New Request 04/05/2022 04/30/2023 1 1 * Radiology (Emergency) - New Request Specialty Diagnoses / Procedures Referred By Contac t Referred To Contact Procedures ECG Chadwick Heart MD [address] [place] [address] Referral ID Status Reason Start Date Expiration Date V isits Requested Visits Authorized [id number] New Request 04/04/2022 04/29/2023 1 1 * (Routine) - New Request Specialty Diagnoses / Procedures Referred By Contac t Referred To Contact Procedures PLATELET MONITORING PER PROTOCOL Chadwick Heart MD [address] [address] Referral ID Status Reason Start Date Expiration Date V isits Requested Visits Authorized [id number] New Request 04/01/2022 04/26/2023 1 1 * Radiology (Emergency) - New Request Specialty Diagnoses / Procedures Referred By Contac t Referred To Contact Procedures ECG Chadwick Heart MD [address] [place] [address] Referral ID Status Reason Start Date Expiration Date V isits Requested Visits Authorized [id number] New Request 04/01/2022 04/26/2023 1 1 * Consultation (Routine) - New Request Specialty Diagnoses / Procedures Referred By Contact Referred To Contact Cardiovascular Medicine Diagnoses Stented coronary artery Chadwick Heart MD [address] [place] [address] Referral ID Status Reason Start Date Expiration Date V isits Requested Visits Authorized [id number] New Request 04/05/2022 04/30/2023 1 1 Scheduling Instructions Clinic to contact patient for scheduling at most appropriate location. * (Routine) Specialty Diagnoses / Procedures Referred By Contac t Referred To Contact Tito Bartholomew MD [address] [place] [address] [address] [place] [address] Referral ID Status Reason Start Date Expiration Date Visits Re quested Visits Authorized * Radiology (Routine) - New Request Specialty Diagnoses / Procedures Referred By Contac t Referred To Contact Procedures ECG Sabas Petersen MD [address] [place], [place] [phone] Referral ID Status Reason Start Date Expiration Date V isits Requested Visits Authorized [id number] New Request 03/29/2022 04/23/2023 1 1 * Radiology (Routine) - New Request Specialty Diagnoses / Procedures Referred By Parish t Referred To Contact Procedures ECG Tanya Hylton MD [address] [facility] [address] [address] Referral ID Status Reason Start Date Expiration Date V isits Requested Visits Authorized [id number] New Request 03/28/2022 04/22/2023 1 1 [facility]No reason for referral information availablePortsmouth Inventarium.mobi Services Work Phone: Reason for visit Narrative* Auth/Cert Specialty Diagnoses / Procedures Referred By Parish del angel Referred To Contact Diagnoses CAD, severe aortic stenosis Sabas Petersen MD [address] [place] [phone] [facility] [address] [place] [phone] Referral ID Status Reason Start Date Expiration Date Visits Re quested Visits Authorized [id number] 1 1 [facility] Narrative* Auth/Cert Specialty Diagnoses / Procedures Referred By Contnia t Referred To Contact Diagnoses SOB on BIPAP Patricia Schrader MD, PhD [address] [address] [facility] [address] [place] [phone] Referral ID Status Reason Start Date Expiration Date Visits Re quested Visits Authorized [id number] 1 1 [facility] Chief Complaint and Reason for Visit Chief Complaint PER L.LORSON CHEST PAIN CHF Reason for Visit Chest pain Essential hypertension Moderate to severe aortic stenosis Atherosclerotic heart disease of sen[place]cay[place] coronary artery without angina pectoris HLD (hyperlipidemia) [...] severe aortic stenosis Atherosclerotic heart disease of [place] coronary artery without angina pectoris HLD (hyperlipidemia) CAD (coronary artery disease), sen[place]-cay[place] coronary artery Carotid stenosis, left Chest pain [...] internal carotid artery Atherosclerotic heart disease of [place] coronary artery without angina pectoris Diabetes mellitus, [...] severe aortic stenosis Atherosclerotic heart disease of [place] coronary artery without angina pectoris HLD (hyperlipidemia) CAD (coronary artery disease), sen[place] coronary artery Carotid stenosis, left Chest pain [...] internal carotid artery Atherosclerotic heart disease of sen[place]cay[place] coronary artery without angina pectoris Diabetes mellitus, [...] severe aortic stenosis Atherosclerotic heart disease of [place] coronary artery without angina pectoris HLD (hyperlipidemia) CAD (coronary artery disease), [place] coronary artery Carotid stenosis, left Chest pain [...] internal carotid artery Atherosclerotic heart disease of sen[place] coronary artery without angina pectoris Diabetes mellitus, [...] Date/ Time Name of Medical Power of Bobtailer Beto Prather March 20, 2022 2:30pm Living Will Yes March 20 022 2:30pm Power of Bobtailer Yes March 20, 2022 2:30pm Latest Code [...] Date/ Time Name of Medical Power of Bobtailer Beto Prather March 20, 2022 2:30pm Name of Medical Power of Bobtailer STAS PRATHER April 16, 2022 9:22pm Living Will Yes April 16 9:22pm Power of Bobtailer Yes April 16, 2022 9:22pm Advance Directive Response Recorded Date/ Time Name of Medical Power of Bobtailer Beto Prather March 20, 2022 2:30pm Name of Medical Power of Bobtailer STAS PRATHER April 16, 2022 9:22pm Name of Medical Power of Bobtailer Stas Prather April 19, 2022 10:09pm Living Will Yes April 19 10:09pm Power of Bobtailer Yes April 19, 2022 10:09pm Latest Code [...] MONITOR, CARDIAC Kailey Paniagua MD [address] [place] [phone] Referral ID Status Reason Start Date Expiration Date V isits Requested Visits Authorized [id number] New Request 04/26/2022 05/21/2023 1 1 Specialty Diagnoses / Procedures Referred By Contac t Referred To Contact Cardiovascular Medicine Diagnoses Aortic valve stenosis, etiology of cardiac valve disease unspecified Kailey Paniagua MD [address] [place] [phone] Referral ID Status Reason Start Date Expiration Date V isits Requested Visits Authorized [id number] New Request 04/25/2022 05/20/2023 1 1 Scheduling Instructions Please schedule this patient in the Department of Cardiology. Specialty Diagnoses / Procedures Referred By Contac t Referred To Contact Procedures MOBILE CARDIAC TELEMETRY Jacinta Sebastian APRN-CNP [address] [place], [place] [phone] Referral ID Status Reason Start Date Expiration Date V isits Requested Visits Authorized [id number] New Request 04/25/2022 05/20/2023 1 1 Specialty Diagnoses / Procedures Referred By Contac t Referred To Contact Jacinta Sebastian APRN-CNP [address] [place], [place] [phone] Referral ID Status Reason Start Date Expiration Date Visits Re quested Visits Authorized Specialty Diagnoses / Procedures Referred By Contac t Referred To Contact Procedures NO HEPARIN OR ENOXAPARIN ORDERED Jacinta Sebastian APRN-PARTS ROOM CLERK [address] [place] [address] Referral ID Status Reason Start Date Expiration Date V isits Requested Visits Authorized [id number] New Request 04/25/2022 05/20/2023 1 1 Specialty Diagnoses / Procedures Referred By Contac t Referred To Contact Procedures PATIENT ON THERAPEUTIC ANTICOAGULATION Jacinta Sebastian, [employer] CONSULTANT-PARTS ROOM CLERK [address] [place] [phone] Referral ID Status Reason Start Date Expiration Date V isits Requested Visits Authorized [id number] New Request 04/25/2022 05/20/2023 1 1 Specialty Diagnoses / Procedures Referred By Contac t Referred To Contact Procedures ECG DimasChristopher Jacinta Coronel, [employer] CONSULTANT-PARTS ROOM CLERK [address] [place] [phone] Referral ID Status Reason Start Date Expiration Date V isits Requested Visits Authorized [id number] New Request 04/25/2022 05/20/2023 1 1 Specialty Diagnoses / Procedures Referred By Contac t Referred To Contact Radha Chinchilla MD [address] [facility] [address] [place] [address] Specialty Diagnoses / Procedures Referred By Contac t Referred To Contact Procedures DVT/VTE RISK ASSESSMENT Patricia Schrader MD, PhD [address] [facility] [address] [place] [address] Referral ID Status Reason Start Date Expiration Date V isits Requested Visits Authorized [id number] New Request 04/20/2022 05/15/2023 1 1 Summary [...] Guadalupe Matta, RN)[phone] (Not Given - Provider: Guadalpue Matta RN - Reason: Patient/family refused) isosorbide [...] glucose is greater than 200md/dl, then notify Clinical Trial Leader. And BLOOD GLUCOSE (POC DEVICE) (CANCELED) Routine, [...] 50% needed, contact pharmacy or obtain from [employer] cart ++
And glucose (GLUTOSE) 40 % [...] at 1703, Until Specified
Who to Notify: Clinical Trial Leader
For all Blood Glucose LESS THAN 80 mg/dl, notify Clinical Trial Leader after treatment per Hypoglycemia in Non- Adults [...] 2 g, Intravenous, Administer over 30 Minutes, HSE ADVISOR TO PROCEDURE, 1 dose, Starting on Thu04/25/22 at 0600, Until Thu04/25/22 at 0955, Other, Preoperative antibiotics, Nursing to obtain from [facility] pyxis. Call pharmacy for emergent doses or [...] 50% needed, contact pharmacy or obtain from [facility] cart ++ , Post-op/Post-Proc Docusate (COLACE) [...] at 1058, Intra-op/Intra-Proc 0949 (Given - Provider: Tiot Bartholomew MD)1008 (Given - Provider: Tito Bartholomew [...] 1,000 mg, Intravenous, Administer over 60 Minutes, HSE ADVISOR TO PROCEDURE, 1 dose, Starting on Thu04/25/22 at 0600, Until Thu04/25/22 at 0900, Other, Preoperative antibiotics, Nursing to obtain from [facility]. Call pharmacy for emergent doses [...] glucose is greater than 200md/dl, then notify Clinical Trial Leader. And BLOOD GLUCOSE (POC DEVICE) (CANCELED) Routine, [...] 50% needed, contact pharmacy or obtain from [employer] cart ++
And glucose (GLUTOSE) 40 % [...] at 0417, Until Specified
Who to Notify: Clinical Trial Leader
For all Blood Glucose LESS THAN 80 mg/dl, notify Clinical Trial Leader after treatment per Hypoglycemia in Non- Adults Clinical Practice Guideline And Carbohydrate counts with meals (CANCELED) Routine, CONTINUOUS, Starting on 04/20/22 at 0417, Until Specified
Carbohydrate counts are to be done after each patient meal and with snack. Care Teams (unrecognized sec tion and content) Product Safety Lead Relationship Specialty Start Date End Date Murphy Burton MD [address] [place] [address] PCP - General Family Medicine 03/29/22 Team [...] Dr. Reno Curry DO Emergency Provider Active Product Safety Lead Relationship Specialty Start Date End Date Murphy Burton MD [address] [place] [address] PCP - General Family Medicine 03/29/22 Product Safety Lead Relationship Specialty Start Date End Date Murphy Burton MD [address] [place] [address] PCP - General Family Medicine 03/29/22 Team [...] (transcatheter aortic valve replacement), bioprosthetic Procedures ECHOCARDIOGRAM [place] ECHO HEART XTHORACIC,COMPLETE W DOPPLER Kalen'Jacinat Krishnan, [employer] CONSULTANT-PARTS ROOM CLERK [address] [place] [address] [place] [address] Referral ID Status Reason Start Date Expiration Date Visits Re quested Visits Authorized [id number] Closed 04/25/2022 05/20/2023 1 1 INFORMATION SOURCE (unrecogn ized section and content) DATE CREATED AUTHOR 06/13/2022 [facility] DATE CREATED AUTHOR AUTHOR'S MARIBEL AMAYA 02/08/2025 [facility] FOR RECORDS PERTAINING TO PATIENTS WHO ARE [...] BE BASED ON THE PRIMARY CLINICAL RECORDS. [employer] provides no warranty or guarantee of the accuracy or completeness of information in this document.
[2025-02-27 22:54] LABS: Troponin T High Sens 2 HR 149 ng/L (<=14)
--- NOTE | 2025-02-27 23:05 | ED.RN ---
REPORT CALLED TO ICU NURSE LELAND AT THIS TIME.
[2025-02-28] VITALS (49 sets, daily range): BP systolic 91–181; BP diastolic 41–84; PULSE 77–103; RESP 11–25; TEMP 36.6–37.3; O2SAT 91–100; BMI 28.7; BMI 28.4
[2025-02-28 00:45] LABS: Troponin T High Sens 4 HR 329 ng/L (<=14)
[2025-02-28 03:34] LABS: Hematocrit 34.9 % (37-47); Hemoglobin 11.3 g/dL (12.0-15.0); Immature Granulocytes Count 0.040 X10^3/uL (0.0-0.0); Mean Corp Hgb Conc 32.4 g/dL (32-36); Mean Corpuscular Volume 87.5 fL (81-99); Mean Platelet Vol. 10.4 fl (6.2-12.0); NRBC Flagged by Analyzer 0 % (0-5); Platelet Count 191 K/mm3 (150-450); RBC Distribution Width CV 12.5 % (11.6-14.6); RBC Distribution Width SD 40.2 fl (35.1-43.9); Red Blood Count 3.99 M/mm3 (4.2-5.4); White Blood Count 12.6 K/mm3 (4.4-11.0)
[2025-02-28 04:01] LABS: Anion Gap 12 (5-15); BUN 26 mg/dL (4-19); BUN/Creat Ratio 27.1 RATIO (10-20); Calcium,Total 8.4 mg/dL (7.6-11.0); Carbon Dioxide 23.8 mmol/L (21.0-32.0); Chloride 105 mmol/L (98-108); Estimated Creatinine Clearance 32.93 ml/min (50-250); Glucose 209 mg/dL (70-99); Potassium 4.0 mmol/L (3.3-5.1)
--- NOTE | 2025-02-28 05:52 | CON.PCM.CC_ITS ---
HPI Consult Data Date of Consult: 02/28/25 HPI Narrative HPI Narrative: SOPHIA PRATHER, is a 89 F who presents [ ] [facility] Medical History Moderate to severe aortic stenosis Depression Diabetes Osteoporosis Non-smoker Coronary artery disease Hypertension TIA (transient ischemic attack) Nonrheumatic aortic (valve) stenosis Essential hypertension Presence of stent in coronary artery (~04/04/22) Carotid stenosis, left Occlusion and stenosis of left carotid artery Nonrheumatic mitral (valve) insufficiency Aortic valve disorders Atherosclerotic heart disease of inupiat coronary artery without angina pectoris HLD (hyperlipidemia) Occlusion and stenosis of right carotid artery PAD (peripheral artery disease) Home Medications ?Medication ?Instructions ?Recorded ?Last Taken ?Type aspirin 81 mg tablet,delayed 81 mg PO DAILY HEART HEAL TH 04/28/18 03/20/22 History release omega-3 250 gg-wla-amd-lutein 2.5 1 cap PO BID EYE HEA LTH 01/28/21 03/20/22 History mg-zeaxanthin 0.5 mg capsule ([facility]) vitamin B complex 1 cap PO DAILY SUPPLEMENT 03/20/22 History ezetimibe 10 mg tablet 10 mg PO DAILY CHOLESTEROL 1 05/21/21 03/20/22 History multivitamin with minerals 1 tab PO DAILY SUPPLEMENT 1 05/21/21 03/20/22 History hydralazine 10 mg tablet 10 mg PO TID PRN hypertensio n 05/15/22 02/27/25 19:00 History sertraline 50 mg tablet 50 mg PO DAILY 05/15/22 Unkn own History potassium chloride 20 mEq 20 meq PO BIDCM 30 days #60 tabs 10/04/24 Unknown Rx tablet,extended release(part/cryst) furosemide 40 mg tablet (Lasix) 40 mg PO QAM 12/06/24 Unknown History lisinopril 10 mg tablet 10 mg PO DAILY 02/07/25 Unkn own History lisinopril 10 mg tablet 20 mg PO QHS 02/07/25 Unknow n History metformin 500 mg tablet 500 mg PO ONCE blood sugar 1 04/09/24 Unknown History Allergy/AdvReac Type Severity Reaction Status Date / Time rosuvastatin AdvReac Severe Myalgias Verified 02/27/25 20:00 simvastatin AdvReac Severe myalgias Verified 02/27/25 20:00 Family History Father CAD (coronary artery disease) Hypertension Myocardial infarction, Onset Age: 80 Sister CVA (cerebral vascular accident), Onset Age: 66 Diabetes Arthritis Mother Cancer Thyroid Surgical History History of transcatheter aortic valve replacement (TAVR) (~04/25/22) History of right and left heart catheterization (LHC) (~03/21/22) Presence of coronary angioplasty implant and graft (~07/10/16) History of left-sided carotid endarterectomy (05/05/17) History of hysterectomy History of CEA (carotid endarterectomy) (~2010) Social History Smoking Status: Never smoker second hand exposure: No alcohol intake: never substance use type: does not use caffeine: No Lab / Micro Data 02/28/25 03:25 02/28/25 03:25 Labs: Laboratory Results - last 24 hr 02/27/25 20:00: WBC 14.7 H, RBC 4.60, Hgb 13.1, Hct 40.7, MCV 88.5, MCH 28.5, MCHC 32.2, RDW Std Deviation 41.1, RDW Coeff of Jennifer 12.7, Plt Count 229, MPV 10.8, Immature Gran % (Auto) 0.500, Neut % (Auto) 62.0, Lymph % (Auto) 26.1, Crosby % (Auto) 8.1, Eos % (Auto) 2.8, Baso % (Auto) 0.5, Absolute Neuts (auto) 9.1 H, Absolute Lymphs (auto) 3.83, Nucleated RBC % 0, Sodium 139, Potassium 3.9, Chloride 100, Carbon Dioxide 23.9, Anion Gap 15, BUN 31 H, Creatinine 1.13, Estim Creat Clear Calc 29.12 L, Est GFR (MDRD) Non-Af 47 L, BUN/Creatinine Ratio 27.2 H, Glucose 255 H, Lactic Acid 1.4, Calcium 9.4, Total Bilirubin 0.29, AST 33 H, ALT 31, Alkaline Phosphatase 95, Troponin T High Sens 45 H, NT pro BNP II 718, Total Protein 7.3, Albumin 4.4, Globulin 2.9, Albumin/Globulin Ratio 1.5 02/27/25 20:08: POC Glucose 249 H 02/27/25 22:12: Troponin T Hi Sens 2 Hr 149 H* 02/27/25 23:29: POC Glucose 239 H 02/28/25 00:00: Troponin T Hi Sens 4Hr 329 H* 02/28/25 03:25: WBC 12.6 H, RBC 3.99 L, Hgb 11.3 L, Hct 34.9 L, MCV 87.5, MCH 28.3, MCHC 32.4, RDW Std Deviation 40.2, RDW Coeff of Jennifer 12.5, Plt Count 191, MPV 10.4, Immature Gran % (Auto) 0.300, Neut % (Auto) 73.5 H, Lymph % (Auto) 17.1 L, Crosby % (Auto) 8.0, Eos % (Auto) 0.8, Baso % (Auto) 0.3, Absolute Neuts (auto) 9.3 H, Absolute Lymphs (auto) 2.16, Nucleated RBC % 0, Sodium 140, Potassium 4.0, Chloride 105, Carbon Dioxide 23.8, Anion Gap 12, BUN 26 H, Creatinine 0.96, Estim Creat Clear Calc 32.93 L, Est GFR (MDRD) Non-Af 56 L, B UN/Creatinine Ratio 27.1 H, Glucose 209 H, Calcium 8.4 ABG Data ABG results: ABG 02/27/25 20:26 Specimen Type ART Sample Site R Radial pH 7.34 L Bicarbonate Actual 23.5 Total CO2 25 Base Excess -2 O2 Saturation 88 L O2 % 40.0 ABG pCO2 43.2 ABG pO2 59 L David Test Positive O2 Delivery Device BiPAP Vent Mode Not entered Clinical Comments 15. 6. 40% Imaging Radiology Impression Chest X-Ray 02/27/25 20:25 IMPRESSION: CHF with small bilateral layering pleural effusions. Reading Location: [id number]
--- NOTE | 2025-02-28 05:52 | EX.PCM.CONCC ---
Assessment & Plan Assessment/Plan (1) Acute exacerbation of CHF (congestive heart failure): (2) Acute hypoxemic respiratory failure: PLAN: Plan RECOMMENDATIONS: 1. Diuresis as tolerated by hemodynamics and renal function. 2. Resume home antihypertensive regimen and wean from nitroglycerin. 3. Encourage incentive spirometer use while in bed. 4. Echocardiogram and cardiology consultation are pending. 5. Will sign off from a pulmonary/critical care perspective. Please call with any additional questions. IMPRESSIONS: 1. Acute hypoxemic respiratory failure Most likely secondary to underlying heart failure with preserved ejection fraction in a state of exacerbation. The patient ultimately responded quickly to the use of diuretics and noninvasive positive pressure ventilatory support. She is currently maintaining appropriate oxygen saturations on room air. Will defer further management of her NSTEMI and uncontrolled hypertension to cardiology and hospitalist. 2. NSTEMI/uncontrolled hypertension The patient has a known history of coronary artery disease along with aortic valve disease status post TAVR. Repeat echocardiogram is pending. Cardiology consultation is pending. Recommend resuming home antihypertensive regimen and weaning the patient off of nitroglycerin. 3. History of coronary artery disease status post PCI/hypertension/hyperlipidemia/diabetes mellitus/depression Complicates care, management, recovery and prognosis. Continue home medications as indicated. This note was generated with [employer] dictation software. It may contain incorrect words, spelling, and punctuation that were not noted in checking the note before signing. HPI Consult Data Date of Consult: 02/28/25 HPI Narrative Reason for Consultation: Respiratory failure HPI Narrative: The patient is an 89-year-old female, with a history as outlined below, who presented to the emergency department on February 27 with complaints of shortness of breath. The patient is currently followed in the cardiology clinic, having last been seen on February 07, 2025, due to a history of coronary artery disease status post PCI, hypertension, hyperlipidemia, and aortic valve stenosis status post TAVR at [facility] in March 2022. Based on echocardiogram, the patient does have known heart failure with preserved ejection fraction. The patient ultimately reported that her shortness of breath has been present now for the last several days. On presentation to the emergency department, the patient was noted to be afebrile and hypertensive with a blood pressure of 171/78 mmHg. Due to her presenting respiratory distress, she was placed on BiPAP therapy. Laboratory evaluation revealed a white blood cell count of 15,000. Arterial blood gas was notable for a pH of 7.34 with a pCO2 of 43 and pO2 of 59. Chemistry profile was unremarkable. Lactate was within normal limits. Troponin was elevated at 329. BNP was noted to be 718. Chest x-ray demonstrated stigmata of congestive heart failure. The patient was initiated on a nitroglycerin infusion and started on scheduled IV Lasix. She was admitted to the medical intensive care unit for further management. This morning, the patient has been weaned from BiPAP and is maintaining appropriate oxygen saturations on room air. She does report interval improvement in her breathing quality. Cardiology consultation and echocardiogram are pending. [facility] Medical History Moderate to severe aortic stenosis Depression Diabetes Osteoporosis Non-smoker Coronary artery disease Hypertension TIA (transient ischemic attack) Nonrheumatic aortic (valve) stenosis Essential hypertension Presence of stent in coronary artery (~04/04/22) Carotid stenosis, left Occlusion and stenosis of left carotid artery Nonrheumatic mitral (valve) insufficiency Aortic valve disorders Atherosclerotic heart disease of [place] coronary artery without angina pectoris HLD (hyperlipidemia) Occlusion and stenosis of right carotid artery PAD (peripheral artery disease) Home Medications ?Medication ?Instructions ?Recorded ?Last Taken ?Type aspirin 81 mg tablet,delayed 81 mg PO DAILY HEART HEALTH 04/28/18 03/20/22 History release omega-3 250 wk-npz-epz-lutein 2.5 1 cap PO BID EYE HEALTH 01/28/21 03/20/22 History mg-zeaxanthin 0.5 mg capsule ([facility]) vitamin B complex 1 cap PO DAILY SUPPLEMENT 01/28/21 03/20/22 History ezetimibe 10 mg tablet 10 mg PO DAILY CHOLESTEROL 03/20/22 03/20/22 History multivitamin with minerals 1 tab PO DAILY SUPPLEMENT 03/20/22 03/20/22 History hydralazine 10 mg tablet 10 mg PO TID PRN hypertension 05/15/22 02/27/25 19:00 History sertraline 50 mg tablet 50 mg PO DAILY 05/15/22 Unknown History potassium chloride 20 mEq 20 meq PO BIDCM 30 days #60 tabs 10/04/24 Unknown Rx tablet,extended release(part/cryst) furosemide 40 mg tablet (Lasix) 40 mg PO QAM 12/06/24 Unknown History lisinopril 10 mg tablet 10 mg PO DAILY 02/07/25 Unknown History lisinopril 10 mg tablet 20 mg PO QHS 02/07/25 Unknown History metformin 500 mg tablet 500 mg PO ONCE blood sugar 02/07/25 Unknown History Allergy/AdvReac Type Severity Reaction Status Date / Time rosuvastatin AdvReac Severe Myalgias Verified 02/27/25 20:00 simvastatin AdvReac Severe myalgias Verified 02/27/25 20:00 Family History Father CAD (coronary artery disease) Hypertension Myocardial infarction, Onset Age: 80 Sister CVA (cerebral vascular accident), Onset Age: 66 Diabetes Arthritis Mother Cancer Thyroid Surgical History History of transcatheter aortic valve replacement (TAVR) (~04/25/22) History of right and left heart catheterization (LHC) (~03/21/22) Presence of coronary angioplasty implant and graft (~07/10/16) History of left-sided carotid endarterectomy (05/05/17) History of hysterectomy History of CEA (carotid endarterectomy) (~2010) Social History Smoking Status: Never smoker second hand exposure: No alcohol intake: never substance use type: does not use caffeine: No ROS ROS Narrative 10 systems were reviewed with pertinent positives as noted in the HPI above. Physical Exam Const alert and no apparent distress General Appearance: cooperative HEENT normocephalic, head/scalp atraumatic and moist oral mucous membranes Eyes PERRL, EOMs intact bilaterally and conjunctivae normal Neck supple General: trachea midline Chest inspection of chest normal Resp normal respiratory effort and no use of accessory muscles Effort and Inspection: able to speak in complete sentences Auscultation: Negative for rales, rhonchi or wheezes Cardio regular rate and regular rhythm Heart Sounds: murmur GI soft to palpation and non-tender Extremity no clubbing, cyanosis or edema Skin no rashes or lesions noted Neuro CN's II-XII intact bilaterally, moves all extremities and no focal motor deficits Psych cooperative and affect normal Lab / Micro Data 02/28/25 03:25 02/28/25 03:25 Labs: Laboratory Results - last 24 hr 02/27/25 20:00: WBC 14.7 H, RBC 4.60, Hgb 13.1, Hct 40.7, MCV 88.5, MCH 28.5, MCHC 32.2, RDW Std Deviation 41.1, RDW Coeff of Jennifer 12.7, Plt Count 229, MPV 10.8, Immature Gran % (Auto) 0.500, Neut % (Auto) 62.0, Lymph % (Auto) 26.1, [place] % (Auto) 8.1, Eos % (Auto) 2.8, Baso % (Auto) 0.5, Absolute Neuts (auto) 9.1 H, Absolute Lymphs (auto) 3.83, Nucleated RBC % 0, Sodium 139, Potassium 3.9, Chloride 100, Carbon Dioxide 23.9, Anion Gap 15, BUN 31 H, Creatinine 1.13, Estim Creat Clear Calc 29.12 L, Est GFR (MDRD) Non-Af 47 L, BUN/Creatinine Ratio 27.2 H, Glucose 255 H, Lactic Acid 1.4, Calcium 9.4, Total Bilirubin 0.29, AST 33 H, ALT 31, Alkaline Phosphatase 95, Troponin T High Sens 45 H, NT pro BNP II 718, Total Protein 7.3, Albumin 4.4, Globulin 2.9, Albumin/Globulin Ratio 1.5 02/27/25 20:08: POC Glucose 249 H 02/27/25 22:12: Troponin T Hi Sens 2 Hr 149 H* 02/27/25 23:29: POC Glucose 239 H 02/28/25 00:00: Troponin T Hi Sens 4Hr 329 H* 02/28/25 03:25: WBC 12.6 H, RBC 3.99 L, Hgb 11.3 L, Hct 34.9 L, MCV 87.5, MCH 28.3, MCHC 32.4, RDW Std Deviation 40.2, RDW Coeff of Jennifer 12.5, Plt Count 191, MPV 10.4, Immature Gran % (Auto) 0.300, Neut % (Auto) 73.5 H, Lymph % (Auto) 17.1 L, [place] % (Auto) 8.0, Eos % (Auto) 0.8, Baso % (Auto) 0.3, Absolute Neuts (auto) 9.3 H, Absolute Lymphs (auto) 2.16, Nucleated RBC % 0, Sodium 140, Potassium 4.0, Chloride 105, Carbon Dioxide 23.8, Anion Gap 12, BUN 26 H, Creatinine 0.96, Estim Creat Clear Calc 32.93 L, Est GFR (MDRD) Non-Af 56 L, BUN/Creatinine Ratio 27.1 H, Glucose 209 H, Calcium 8.4 ABG Data ABG results: ABG 02/27/25 20:26 Specimen Type ART Sample Site R Radial pH 7.34 L Bicarbonate Actual 23.5 Total CO2 25 Base Excess -2 O2 Saturation 88 L O2 % 40.0 ABG pCO2 43.2 ABG pO2 59 L David Test Positive O2 Delivery Device BiPAP Vent Mode Not entered Clinical Comments 15. 6. 40% Imaging Radiology Impression Chest X-Ray 02/27/25 20:25 IMPRESSION: CHF with small bilateral layering pleural effusions. Reading Location: [id number] Charges/Coding Visit Charges Inpatient E&M: 58338 Init Hosp L3
[2025-02-28] MEDS: Nitroglycerin Infusion 250 ML 45 MG CONT INF (06:37)
[2025-02-28] MEDS: 0.9% Saline Lock 10 ML Syringe IV ×3 (06:38→14:55)
--- NOTE | 2025-02-28 07:50 | ECHOD_ITS ---
Reason For Study Reason For Study: DYSPNEA Procedure This was a 2D Doppler, Color Flow transthoracic echocardiogram. Contrast injection was performed. The study was technically difficult. Exam performed portable in ICU/CCU. Left Ventricle Normal LV size. Mild concentric left ventricular hypertrophy. The left ventricular ejection fraction is 50 %. Septal motion consistent with bundle branch block. Stage 1 diastolic dysfunction. Right Ventricle Normal right ventricle. Atria The left atrium is mildly enlarged. Normal right atrium. Mitral Valve Severe mitral annular calcification. Trivial mitral valve insufficiency. Tricuspid Valve Trivial tricuspid valve insufficiency. Unable to estimate RV systolic pressure due to insufficient tricuspid regurgitant envelope. Aortic Valve Stable appearing bioprosthetic aortic valve. Mean peak gradient 24 mmHg which is up from 16 mmHg last year. Pulmonic Valve The pulmonic valve is not well visualized. Great Vessels The aortic root is not well visualized. Pericardium/Pleural No pericardial effusion. Medication Diluted definity 2ml given slow IV push to enhance endocardial definition. MMode/2D Measurements & Calculations LVIDd: 3.9 cm IVSd: 1.2 cm LVOT diam: 1.9 cm LVIDs: 2.6 cm LVPWd: 1.1 cm RVDd: 2.8 cm FS: 32.6 % LVOT area: 2.9 cm2 LAV(MOD-bp): 40.3 ml LVAd ap4: 20.8 cm2 LVAd ap2: 24.1 cm2 LAV(MOD-bp) Indexed: 25.3 ml/m2 LVLd ap4: 6.6 cm LVLd ap2: 6.8 cm LAV(MOD-sp2): 41.9 ml EDV(MOD-sp4): 52.5 ml EDV(MOD-sp2): 68.4 ml LAV(MOD-sp4): 37.6 ml EDV(sp4-el): 55.6 ml EDV(sp2-el): 72.3 ml LVAs ap4: 13.7 cm2 LVAs ap2: 16.4 cm2 LVLs ap4: 5.7 cm LVLs ap2: 6.3 cm ESV(MOD-sp4): 26.3 ml ESV(MOD-sp2): 34.2 ml ESV(sp4-el): 28.1 ml ESV(sp2-el): 36.2 ml EF(MOD-sp4): 49.9 % EF(MOD-sp2): 50.0 % EF(sp4-el): 49.4 % SV(MOD-sp4): 26.2 ml SV(MOD-sp2): 34.2 ml SV(sp4-el): 27.4 ml SI(MOD-sp4): 16.4 ml/m2 SI(MOD-sp2): 21.4 ml/m2 Ao sinus diam: 3.0 cm LA A4 area: 15.9 cm2 LA dimension(2D): 3.8 cm TAPSE: 1.6 cm RA A4 area: 11.0 cm2 Time Measurements MV dec time: 0.26 sec Doppler Measurements & Calculations MV E max lorne: 98.8 cm/sec Lat Peak E' Lorne: 7.5 cm/sec Med Peak E' Lorne: 5.0 cm/sec MV A max lorne: 161.4 cm/sec E/E' lat: 13.2 E/E' med: 19.8 MV E/A: 0.61 MV V2 max: 188.6 cm/sec MV dec slope: 385.1 cm/sec2 Ao V2 max: 314.1 cm/sec MV max P.2 mmHg Ao max P.8 mmHg MV V2 mean: 125.8 cm/sec Ao V2 mean: 232.6 cm/sec MV mean P.8 mmHg Ao mean P.4 mmHg MV V2 VTI: 35.4 cm Ao V2 VTI: 53.3 cm MVA(VTI): 2.4 cm2 AV (velocity ratio): 0.54 LIDIA(I,D): 1.6 cm2 LIDIA(V,D): 1.4 cm2 LV V1 max: 150.9 cm/sec SV(LVOT): 83.5 ml TR max lorne: 279.2 cm/sec LV V1 max P.2 mmHg TR max P.2 mmHg LV V1 mean P.5 mmHg LV V1 mean: 97.4 cm/sec LV V1 VTI: 28.6 cm ECHO/Echo Complete W/ Contrast Interpretation Summary The study was technically difficult. Mild concentric left ventricular hypertrophy. The left ventricular ejection fraction is 50 %. Stage 1 diastolic dysfunction. The left atrium is mildly enlarged. Severe mitral annular calcification. Stable appearing bioprosthetic aortic valve. Mean peak gradient 24 mmHg which i s up from 16 mmHg last year. Ordering Physician: Danie Del Cid Performed By: Jesenia Naylor RDCS
--- NOTE | 2025-02-28 08:14 | PCM.PN.HOSP ---
Reason for Visit Chief Complaint: Shortness of breath Subjective Subjective Patient is an 89-year-old gentleman who was brought in by family on account of progressive shortness of breath Objective Data Objective Data Vital Signs: Vital Signs Temp Pulse Resp BP Pulse Ox O2 Del Method O2 Flow Rate 98 F 83 22 H 121/57 H 94 Nasal Cannula 2 02/28/25 04:00 02/28/25 07:00 02/28/25 07:00 02/28/25 07:50 02/28/25 07:00 02/28/25 07:00 02/28/25 07:00 FiO2 40 02/27/25 22:52 Oxygen Flow Rate (L/min) 2 Oxygen Delivery Method Nasal Cannula Weight: 64.5 kg Body Mass Index (BMI) 28.7 Intake & Output: Intake and Output for Last 24 Hours 02/26/25 02/27/25 02/28/25 23:59 23:59 23:59 Intake Total 63.3 / 67.05 270.75 / 270.75 Output Total 200 / 200 Balance 63.3 / -132.95 70.75 / 70.75 Lab / Micro Data 02/28/25 03:25 02/28/25 03:25 Labs: Laboratory Results - last 24 hr 02/27/25 20:00: WBC 14.7 H, RBC 4.60, Hgb 13.1, Hct 40.7, MCV 88.5, MCH 28.5, MCHC 32.2, RDW Std Deviation 41.1, RDW Coeff of Jennifer 12.7, Plt Count 229, MPV 10.8, Immature Gran % (Auto) 0.500, Neut % (Auto) 62.0, Lymph % (Auto) 26.1, [place] % (Auto) 8.1, Eos % (Auto) 2.8, Baso % (Auto) 0.5, Absolute Neuts (auto) 9.1 H, Absolute Lymphs (auto) 3.83, Nucleated RBC % 0, Sodium 139, Potassium 3.9, Chloride 100, Carbon Dioxide 23.9, Anion Gap 15, BUN 31 H, Creatinine 1.13, Estim Creat Clear Calc 29.12 L, Est GFR (MDRD) Non-Af 47 L, BUN/Creatinine Ratio 27.2 H, Glucose 255 H, Lactic Acid 1.4, Calcium 9.4, Total Bilirubin 0.29, AST 33 H, ALT 31, Alkaline Phosphatase 95, Troponin T High Sens 45 H, NT pro BNP II 718, Total Protein 7.3, Albumin 4.4, Globulin 2.9, Albumin/Globulin Ratio 1.5 02/27/25 20:08: POC Glucose 249 H 02/27/25 22:12: Troponin T Hi Sens 2 Hr 149 H* 02/27/25 23:29: POC Glucose 239 H 02/28/25 00:00: Troponin T Hi Sens 4Hr 329 H* 02/28/25 03:25: WBC 12.6 H, RBC 3.99 L, Hgb 11.3 L, Hct 34.9 L, MCV 87.5, MCH 28.3, MCHC 32.4, RDW Std Deviation 40.2, RDW Coeff of Jennifer 12.5, Plt Count 191, MPV 10.4, Immature Gran % (Auto) 0.300, Neut % (Auto) 73.5 H, Lymph % (Auto) 17.1 L, [place] % (Auto) 8.0, Eos % (Auto) 0.8, Baso % (Auto) 0.3, Absolute Neuts (auto) 9.3 H, Absolute Lymphs (auto) 2.16, Nucleated RBC % 0, Sodium 140, Potassium 4.0, Chloride 105, Carbon Dioxide 23.8, Anion Gap 12, BUN 26 H, Creatinine 0.96, Estim Creat Clear Calc 32.93 L, Est GFR (MDRD) Non-Af 56 L, BUN/Creatinine Ratio 27.1 H, Glucose 209 H, Calcium 8.4 02/28/25 06:36: POC Glucose 198 H ABG Data ABG results: ABG 02/27/25 20:26 Specimen Type ART Sample Site R Radial pH 7.34 L Bicarbonate Actual 23.5 Total CO2 25 Base Excess -2 O2 Saturation 88 L O2 % 40.0 ABG pCO2 43.2 ABG pO2 59 L David Test Positive O2 Delivery Device BiPAP Vent Mode Not entered Clinical Comments 15. 6. 40% Radiography Diagnostic Testing: Radiology Impression Chest X-Ray 02/27/25 20:25 IMPRESSION: CHF with small bilateral layering pleural effusions. Reading Location: [id number] Physical Exam Narrative GENERAL: Dyspneic at rest HEENT: Atraumatic; normocephalic EYES; Anicteric, Normal Conjunctiva NECK; supple, normal thyroid, RESPIRATORY: Diminished to auscultation CARDIOVASCULAR: Regular S1 S2, tachycardic GI: soft, normoactive bowel sounds, : No Renal angle tenderness; EXTREMITIES: No edema, no clubbing, MUSCULOSKELETAL: no muscle wasting NEURO: Awake; no lateralizing signs. SKIN: No Rash PSYCH; Flat affect Assessment & Plan Assessment/Plan (1) Elevated troponin: (2) Hypertensive urgency: (3) Acute exacerbation of CHF (congestive heart failure): (4) Acute hypoxemic respiratory failure: PLAN: Plan Patient is an 89-year-old lady admitted with progressive shortness of breath and assessment of acute respiratory failure secondary to acute congestive heart failure made. Patient placed on noninvasive ventilation BiPAP admitted to intensive care unit for subsequent management 1. Acute hypoxic respiratory failure ? Secondary to congestive heart failure patient admitted to the ICU placed on noninvasive ventilation BiPAP with treatment of the underlying etiology. Checks x-ray on admission did show CHF with small bilateral layering pleural effusions. Weight patient's persistent cough ordered viral respiratory panel 2. Acute on chronic congestive heart failure ? Patient admitted to monitored bed presented with respiratory failure placed on BiPAP patient Patient was managed with strict input and output, daily weight, low-sodium diet, fluid restriction as well as diuretic therapy with furosemide 3. Acute hypertensive emergency ? Patient had evidence of endorgan failure ~ CHF patient was started on nitroglycerin drip continued and titrated to keep blood pressure less than 160 4. Elevated troponin Secondary to demand ischemia from above repeat echo ordered to assess for regional wall motion abnormality. Consult was placed to Dr. Dover on admission he is noted recommendations. 5. Valvular heart disease ? With previous history of TAVR 6. Diabetes mellitus type II -patient's oral hypoglycemics held. Placed on long acting insulin, Accu-Cheks a.c. and at bedtime and covered with sliding scale insulin 7. Hypertension ? Blood pressure controlled, home medications continued with dose adjustment as needed 8. DVT prophylaxis ?low molecular weight heparin Time spent in the patient's overall evaluation,decision-making process, review of diagnostic data, adjustment of management, discussion with other providers, nursing nursing and ancillary staff involved in patient's care documentation, 50 Minutes Charges/Coding Visit Charges Inpatient E&M: 13374 [facility] Hosp L3
--- NOTE | 2025-02-28 09:28 | CON.PCM.CA_ITS ---
Assessment & Plan Assessment/Plan (1) Elevated troponin: PLAN: Patient's troponins are minimally elevated and somewhat would be expected given her hypoxia on presentation and hypertension. Troponins were 45, 149, and 329 in sequence. BNP was not consistent with volume overload of 718 for her age group that is normal. It appears that elevated troponins are probably due to demand ischemia. (2) Hypertensive urgency: PLAN: Patient's blood pressures come under much better control with IV nitroglycerin which is now being weaned. Will reinstitute home antihypertensive therapy and add low-dose Coreg to her medical regimen. (3) History of transcatheter aortic valve replacement (TAVR): PLAN: Preliminarily the aortic valve appears to have a mean gradient of approximately 28 mmHg which is up from 16 mmHg a year ago. This valve is only 2 years old. Some of the elevated gradients may be related to the hyperdynamic state. (4) CAD (coronary artery disease), [place] coronary artery: QUALIFIERS: [place] vs. transplanted heart: [place] heart A ssociated angina: without angina Qualified Code(s): I25.10 - Atherosclerotic heart disease of [place] coronary artery without angina pectoris PLAN: Patient has a known history of coronary disease status post remote stenting of the right coronary in 2016 and in 2022 the right coronary was restented as well as the LAD at [facility]. There was no significant disease documented in the circumflex at that time. Patient denies any true anginal symptoms her enzymes are minimally elevated and consistent with her overall general medical presentation. (5) Respiratory failure: QUALIFIERS: Chronicity: acute Respiratory failure complication: h ypoxia Qualified Code(s): J96.01 - Acute respiratory failure with hypoxia PLAN: Patient's pO2 was 59 on presentation with a pH of 7.34. This is apparently was related to coughing spells and she started out with a sore throat. Her white blood cell count has been elevated on admission as well. PLAN: Plan 1. Would reinstitute WILLIAM inhibitor therapy and add Coreg to her medical regimen. 2. Continue pulmonary evaluation and treatment per the pulmonary team. 3. Will follow-up on the formal final echo report with further recommendations as indicated. HPI Consult Data Date of Consult: 02/28/25 HPI Narrative Reason for Consultation: Respiratory failure with a history of TAVR and PCI. HPI Narrative: SOPHIA PRATHER, is a 89 F who presents with several day history of coughing that was preceded by sore throat. She had coughing episodes and rapid heart rate. At time she developed some lower thoracic discomfort that changes with movement. The patient presented with respiratory failure requiring BiPAP which was weaned to nasal cannula. She was originally severely hypertensive on admission with blood pressures in the 180 systolic range. The patient carries a history of known coronary disease status post stenting of the right coronary in 2016 in the right coronary and LAD stented in 2022 at [facility]. She also Jeannette presented with heart failure after her 2022 PCI was transferred back to [facility] and underwent TAVR for her aortic stenosis. The mean gradient was 16 mmHg in February 2024. Pulmonary report of echo done this morning shows a gradient mean gradient of 28 mmHg. 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 The patient was just evaluated in the [facility] office February 07, 2025 and at that time she reports she was feeling well. She subsequently developed a sore throat and then things deteriorated as noted above. Patient's BNP today is 718 which is within normal limits for her age. Her troponins were 45, 149, and 329. The patient is diabetic and obese with a BMI of 29. [facility] Medical History Moderate to severe aortic stenosis Depression Diabetes Osteoporosis Non-smoker Coronary artery disease Hypertension TIA (transient ischemic attack) Nonrheumatic aortic (valve) stenosis Essential hypertension Presence of stent in coronary artery (~04/04/22) Carotid stenosis, left Occlusion and stenosis of left carotid artery Nonrheumatic mitral (valve) insufficiency Aortic valve disorders Atherosclerotic heart disease of [place] coronary artery without angina pectoris HLD (hyperlipidemia) Occlusion and stenosis of right carotid artery PAD (peripheral artery disease) Home Medications ?Medication ?Instructions ?Recorded ?Last Taken ?Type aspirin 81 mg tablet,delayed 81 mg PO DAILY HEART HEAL TH 04/28/18 03/20/22 History release omega-3 250 [id number]-ofy-lutein 2.5 1 cap PO BID EYE HEA LTH 01/28/21 03/20/22 History mg-zeaxanthin 0.5 mg capsule ([facility]) vitamin B complex 1 cap PO DAILY SUPPLEMENT 03/20/22 History ezetimibe 10 mg tablet 10 mg PO DAILY CHOLESTEROL 1 05/21/21 03/20/22 History multivitamin with minerals 1 tab PO DAILY SUPPLEMENT 1 05/21/21 03/20/22 History hydralazine 10 mg tablet 10 mg PO TID PRN hypertensio n 05/15/22 02/27/25 19:00 History sertraline 50 mg tablet 50 mg PO DAILY 05/15/22 Unkn own History potassium chloride 20 mEq 20 meq PO BIDCM 30 days #60 tabs 10/04/24 Unknown Rx tablet,extended release(part/cryst) furosemide 40 mg tablet (Lasix) 40 mg PO QAM 12/06/24 Unknown History lisinopril 10 mg tablet 10 mg PO DAILY 02/07/25 Unkn own History lisinopril 10 mg tablet 20 mg PO QHS 02/07/25 Unknow n History metformin 500 mg tablet 500 mg PO ONCE blood sugar 1 04/09/24 Unknown History Allergy/AdvReac Type Severity Reaction Status Date / Time rosuvastatin AdvReac Severe Myalgias Verified 02/27/25 20:00 simvastatin AdvReac Severe myalgias Verified 02/27/25 20:00 Family History Father CAD (coronary artery disease) Hypertension Myocardial infarction, Onset Age: 80 Sister CVA (cerebral vascular accident), Onset Age: 66 Diabetes Arthritis Mother Cancer Thyroid Surgical History History of transcatheter aortic valve replacement (TAVR) (~04/25/22) History of right and left heart catheterization (LHC) (~03/21/22) Presence of coronary angioplasty implant and graft (~07/10/16) History of left-sided carotid endarterectomy (05/05/17) History of hysterectomy History of CEA (carotid endarterectomy) (~2010) Social History Smoking Status: Never smoker second hand exposure: No alcohol intake: never substance use type: does not use caffeine: No ROS Constitutional Constitutional: Reports as per HPI Eyes Eyes: Reports systems reviewed and no addt'l complaints, except as documented ENT HEENT: Reports as per HPI Cardiovascular Cardiovascular: Reports as per HPI Respiratory/Chest Respiratory/Chest: Reports as per HPI Gastrointestinal Gastrointestinal: Reports as per HPI Genitourinary Genitourinary: Reports as per HPI Musculoskeletal Musculoskeletal: Reports systems reviewed and no addt'l complaints, except as documented Integumentary Integumentary: Reports systems reviewed and no addt'l complaints, except as documented Neurologic Neurologic: Reports systems reviewed and no addt'l complaints, except as documented Psychiatric Psychiatric: Reports systems reviewed and no addt'l complaints, except as documented Endocrine Endocrinology: Reports as per HPI Hematologic/Lymphatic Hematologic/Lymphatic: Reports systems reviewed and no addt'l complaints, except as documented Allergic/Immunologic Allergic/Immunologic: Reports systems reviewed and no addt'l complaints, except as documented Physical Exam Const alert and oriented x3 HEENT normocephalic Eyes EOMs intact bilaterally Neck Neck Narrative: Thick neck with no obvious JVD. Chest inspection of chest normal Resp normal respiratory effort Auscultation: crackles bilateral base and rhonchi throughout Cardio Rate: regular rate Rhythm: regular rhythm Heart Sounds: S1 normal, S2 normal and murmur systolic II/ harsh holo left sternal border and right sternal border; Negative for click or gallop GI normal to inspection, nondistended, normoactive bowel sounds Extremity no pedal edema Neuro Neuro Narrative: Alert and oriented x 3 but does have difficulty recalling details of her past medical history. Psych mental status grossly normal Charges/Coding Visit Charges Inpatient E&M: 03916 Init Hosp L3 Objective Data Vital Signs: Vital Signs Temp Pulse Resp BP Pulse Ox O2 Del Method O2 Flow Rate 98 F 83 22 H 120/72 94 Nasal Cannula 2 02/28/25 04:00 02/28/25 07:00 02/28/25 07:00 02/28/25 08:57 02/28/25 07:00 02/28/25 07:00 02/28/25 07:00 FiO2 40 02/27/25 22:52 Oxygen Flow Rate (L/min) 2 Oxygen Delivery Method Nasal Cannula Weight: 142 lb 3.17 oz Body Mass Index (BMI) 28.7 Intake & Output: Intake and Output for Last 24 Hours 02/26/25 02/27/25 02/28/25 23:59 23:59 23:59 Intake Total 63.3 / 67.05 424.90 / 424.90 Output Total 200 / 200 Balance 63.3 / -132.95 224.90 / 224.90 Lab / Micro Data Attestation: I reviewed the patient's lab results. 02/28/25 03:25 02/28/25 03:25 Labs: Laboratory Results - last 24 hr 02/27/25 20:00: WBC 14.7 H, RBC 4.60, Hgb 13.1, Hct 40.7, MCV 88.5, MCH 28.5, MCHC 32.2, RDW Std Deviation 41.1, RDW Coeff of Jennifer 12.7, Plt Count 229, MPV 10.8, Immature Gran % (Auto) 0.500, Neut % (Auto) 62.0, Lymph % (Auto) 26.1, Barnes % (Auto) 8.1, Eos % (Auto) 2.8, Baso % (Auto) 0.5, Absolute Neuts (auto) 9.1 H, Absolute Lymphs (auto) 3.83, Nucleated RBC % 0, Sodium 139, Potassium 3.9, Chloride 100, Carbon Dioxide 23.9, Anion Gap 15, BUN 31 H, Creatinine 1.13, Estim Creat Clear Calc 29.12 L, Est GFR (MDRD) Non-Af 47 L, BUN/Creatinine Ratio 27.2 H, Glucose 255 H, Lactic Acid 1.4, Calcium 9.4, Total Bilirubin 0.29, AST 33 H, ALT 31, Alkaline Phosphatase 95, Troponin T High Sens 45 H, NT pro BNP II 718, Total Protein 7.3, Albumin 4.4, Globulin 2.9, Albumin/Globulin Ratio 1.5 02/27/25 20:08: POC Glucose 249 H 02/27/25 22:12: Troponin T Hi Sens 2 Hr 149 H* 02/27/25 23:29: POC Glucose 239 H 02/28/25 00:00: Troponin T Hi Sens 4Hr 329 H* 02/28/25 03:25: WBC 12.6 H, RBC 3.99 L, Hgb 11.3 L, Hct 34.9 L, MCV 87.5, MCH 28.3, MCHC 32.4, RDW Std Deviation 40.2, RDW Coeff of Jennifer 12.5, Plt Count 191, MPV 10.4, Immature Gran % (Auto) 0.300, Neut % (Auto) 73.5 H, Lymph % (Auto) 17.1 L, [place] % (Auto) 8.0, Eos % (Auto) 0.8, Baso % (Auto) 0.3, Absolute Neuts (auto) 9.3 H, Absolute Lymphs (auto) 2.16, Nucleated RBC % 0, Sodium 140, Potassium 4.0, Chloride 105, Carbon Dioxide 23.8, Anion Gap 12, BUN 26 H, Creatinine 0.96, Estim Creat Clear Calc 32.93 L, Est GFR (MDRD) Non-Af 56 L, B UN/Creatinine Ratio 27.1 H, Glucose 209 H, Calcium 8.4 02/28/25 06:36: POC Glucose 198 H ABG Data ABG results: ABG 02/27/25 20:26 Specimen Type ART Sample Site R Radial pH 7.34 L Bicarbonate Actual 23.5 Total CO2 25 Base Excess -2 O2 Saturation 88 L O2 % 40.0 ABG pCO2 43.2 ABG pO2 59 L David Test Positive O2 Delivery Device BiPAP Vent Mode Not entered Clinical Comments 15. 6. 40% Rhythm Strip Rhythm Strip: Sinus Rhythm Rate: 95 Cardiology Labs/Tests 02/27/25 20:00: WBC 14.7 H, RBC 4.60, Hgb 13.1, Hct 40.7, MCV 88.5, MCH 28.5, MCHC 32.2, Plt Count 229, MPV 10.8, Immature Gran % (Auto) 0.500, Neut % (Auto) 62.0, Lymph % (Auto) 26.1, Barnes % (Auto) 8.1, Eos % (Auto) 2.8, Baso % (Auto) 0.5, Absolute Neuts (auto) 9.1 H, Nucleated RBC % 0, Sodium 139, Potassium 3.9, Chloride 100, Carbon Dioxide 23.9, Anion Gap 15, BUN 31 H, Creatinine 1.13, Est GFR (MDRD) Non-Af 47 L, BUN/Creatinine Ratio 27.2 H, Glucose 255 H, Lactic Acid 1.4, Calcium 9.4, Total Bilirubin 0.29 02/27/25 20:26: pH 7.34 L, Bicarbonate Actual 23.5, Base Excess -2, O2 Saturation 88 L, ABG pCO2 43.2, ABG pO2 59 L, David Test Positive 02/28/25 03:25: WBC 12.6 H, RBC 3.99 L, Hgb 11.3 L, Hct 34.9 L, MCV 87.5, MCH 28.3, MCHC 32.4, Plt Count 191, MPV 10.4, Immature Gran % (Auto) 0.300, Neut % (Auto) 73.5 H, Lymph % (Auto) 17.1 L, Barnes % (Auto) 8.0, Eos % (Auto) 0.8, Baso % (Auto) 0.3, Absolute Neuts (auto) 9.3 H, Nucleated RBC % 0, Sodium 140, Potassium 4.0, Chloride 105, Carbon Dioxide 23.8, Anion Gap 12, BUN 26 H, Creatinine 0.96, Est GFR (MDRD) Non-Af 56 L, BUN/Creatinine Ratio 27.1 H, G lucose 209 H, Calcium 8.4 Rhythm: EKG: ECHO: Stress Test: Cardiac Cath: PCI: CT Surgery: Holter monitor: EPS: PPM: CXR: Chest CT Scan: Radiography Diagnostic Testing: Radiology Impression Chest X-Ray 02/27/25 20:25 IMPRESSION: CHF with small bilateral layering pleural effusions. Reading Location: [facility] [place] Risk Score for UA/STEMI Assesmment (YES = 1) Risk Stratification Applicable: Yes Age > or = 65: Yes > or = 3 CAD risk factors (HTN, Hypercholesterolemia, Diabetes, family hx, current smoker): Yes Known CAD (Stenosis > or = 50%): No ASA used in past 7 days: Yes Severe angina (> or = 2 episodes in 24 hrs): No EKG ST change > or = 0.5mm: No Positive cardiac markers: Yes Score [place] Risk Score of mortality/ recurrent ischemic event over the next 14 days: 4 = 19.9% - Intermediate
[2025-02-28] MEDS: Aspirin E.C. 81 MG Tablet PO (10:03)
[2025-02-28] MEDS: Vitamin B Comp W-C Capsule 1 CAP PO (10:03)
[2025-02-28] MEDS: Potassium Chloride Oral Tablet 20 MEQ PO ×2 (10:03→16:13)
--- NOTE | 2025-02-28 10:17 | CASEMGMT ---
FRANCISCO MONROE Assessment Face to Face with patient for initial transition planning/care coordination assessment. FRANCISCO MONROE introduced self and role at [facility], pt voices understanding. Pt is A&Ox4 and is resting comfortably in bed and is calm. Pt daughter, Amber, at bedside. Pt states that her other daughter, Debra, . Pt states that she used to live next to Debra, but plans to move in with Amber at the end of the month. Pt plans to DC to Amber's home from [facility] once medically ready. Address is [address] [place] [address]. Care providers, pharmacy, and demographics verified. Admitting dx: RF, Hypertensive Emergency LACE Strata: 2 PCP: Murphy Burton Specialists: MANUEL (Gil), ear specialist in [place] for Macular Degeneration Preferred Pharmacy: [email or web address] Insurance: [employer] ([place]) Prescription Benefit: Yes LNOK: Amber Preston (Karin), Nuno Fisher (Son) Living Arrangements: Pt lives alone in a single story home with a flat entrance. See above. ADLs/IADLs: Ind at baseline. Current 6-Click score is 21. Transportation: Hires drivers + Horse and buggy DME: [employer] with sufficient supplies. Grab bars. FWW. W/C. BSC. Pt reports that these were mainly for her prior to his passing. Pt is currently requiring additional oxygen and may qualify for home oxygen use. A verbal list of local in-network DME companies were provided to the pt at this time. Pt prefers [facility]. HHC/SNF: Denies history of. Pt educated about HH and is indecisive about this now. CM to follow. Pt?s goal: DC to pt's daughter's home with family assistance. Plan: Anticipate home DC, follow for HH and potential new oxygen. Dr Malin states pt will be here x 2-3 more days at least. Plan is for diuretic therapy with Lasix. Echo ordered. At this time, the pt states that she prefers to DC home with her daughter and does not think she needs to go to a SNF. Pt is considering HHC, especially if she were to qualify for home oxygen. Pt and pt's family deny further questions or concerns at this time. CM to follow. Amada Trotter RN, CM
--- NOTE | 2025-02-28 16:02 | NURSING ---
report called to [facility]
[2025-03-01 02:48] VITALS: BP 120/42; PULSE 79; RESP 17; TEMP 37.3; O2SAT 94
[2025-03-01 02:58] VITALS: O2SAT 92
[2025-03-01 05:03] LABS: Hematocrit 33.9 % (37-47); Hemoglobin 11.0 g/dL (12.0-15.0); Immature Granulocytes Count 0.040 X10^3/uL (0.0-0.0); Mean Corp Hgb Conc 32.4 g/dL (32-36); Mean Corpuscular Volume 87.1 fL (81-99); Mean Platelet Vol. 11.0 fl (6.2-12.0); NRBC Flagged by Analyzer 0 % (0-5); Platelet Count 179 K/mm3 (150-450); RBC Distribution Width CV 12.3 % (11.6-14.6); RBC Distribution Width SD 39.0 fl (35.1-43.9); Red Blood Count 3.89 M/mm3 (4.2-5.4); White Blood Count 9.9 K/mm3 (4.4-11.0)
[2025-03-01 05:31] LABS: Anion Gap 13 (5-15); BUN 24 mg/dL (4-19); BUN/Creat Ratio 20.8 RATIO (10-20); Calcium,Total 8.8 mg/dL (7.6-11.0); Carbon Dioxide 24.0 mmol/L (21.0-32.0); Chloride 101 mmol/L (98-108); Estimated Creatinine Clearance 27.44 ml/min (50-250); Glucose 181 mg/dL (70-99); Magnesium 2.0 mg/dL (1.5-2.2); Potassium 3.7 mmol/L (3.3-5.1)
--- NOTE | 2025-03-01 06:04 | PN.HOSP_ITS ---
Reason for Visit Chief Complaint: Shortness of breath Subjective Subjective Patient was transferred from the ICU to the progressive care unit the day prior subsequent evaluation with viral respiratory panel came back positive for rhinovirus. Patient remained on diuretic therapy adjusted doses. Objective Data Objective Data Vital Signs: Vital Signs Temp Pulse Resp BP Pulse Ox O2 Del Method O2 Flow Rate 99.1 F 79 17 120/42 L 92 Room Air 2 03/01/25 02:48 03/01/25 02:48 03/01/25 02:48 03/01/25 02:48 03/01/25 02:58 03/01/25 02:58 02/28/25 08:00 FiO2 40 02/27/25 22:52 Oxygen Flow Rate (L/min) 2 Oxygen Delivery Method Room Air Weight: 63.9 kg Body Mass Index (BMI) 28.4 Intake & Output: Intake and Output for Last 24 Hours 02/27/25 02/28/25 03/01/25 23:59 23:59 23:59 Intake Total 63.3 / 67.05 788.60 / 788.60 Output Total 850 / 850 Balance 63.3 / -132.95 -61.40 / -61.40 Lab / Micro Data 03/01/25 04:03 03/01/25 04:03 Labs: Laboratory Results - last 24 hr 02/28/25 06:36: POC Glucose 198 H 02/28/25 11:57: POC Glucose 306 H 02/28/25 16:10: POC Glucose 166 H 02/28/25 21:33: POC Glucose 225 H 03/01/25 04:03: WBC 9.9, RBC 3.89 L, Hgb 11.0 L, Hct 33.9 L, MCV 87.1, MCH 28.3, MCHC 32.4, RDW Std Deviation 39.0, RDW Coeff of Jennifer 12.3, Plt Count 179, MPV 11.0, Immature Gran % (Auto) 0.400, Neut % (Auto) 73.3 H, Lymph % (Auto) 13.2 L, [place] % (Auto) 10.1 H, Eos % (Auto) 2.5, Baso % (Auto) 0.5, Absolute Neuts (auto) 7.2, Absolute Lymphs (auto) 1.30, Nucleated RBC % 0, Sodium 138, Potassium 3.7, Chloride 101, Carbon Dioxide 24.0, Anion Gap 13, BUN 24 H, Creatinine 1.16, E stim Creat Clear Calc 27.44 L, Est GFR (MDRD) Non-Af 45 L, BUN/Creatinine Ratio 20.8 H, Glucose 181 H, Calcium 8.8, Phosphorus 2.6 L, Magnesium 2.0 Micro: Microbiology 02/28/25 10:30 Mucosa - Nasopharyngeal Coronavirus COVID-19 PCR - Final 02/28/25 10:30 Mucosa - Nasopharyngeal Respiratory Panel (PCR) - Final Rhinovirus Radiography Diagnostic Testing: Radiology Impression Echocardiogram 02/28/25 07:50 Interpretation Summary The study was technically difficult. Mild concentric left ventricular hypertrophy. The left ventricular ejection fraction is 50 %. Stage 1 diastolic dysfunction. The left atrium is mildly enlarged. Severe mitral annular calcification. Stable appearing bioprosthetic aortic valve. Mean peak gradient 24 mmHg which is up from 16 mmHg last year. Ordering Physician: Danie Del Cid Performed By: Jesenia Naylor RDCS Rhythm Strip Rhythm Strip: Sinus Rhythm Rate: 95 Physical Exam Narrative GENERAL: Patient appears comfortable at rest HEENT: Atraumatic; normocephalic EYES; Anicteric, Normal Conjunctiva NECK; supple, normal thyroid, RESPIRATORY: Diminished to auscultation CARDIOVASCULAR: Regular S1 S2, tachycardic GI: soft, normoactive bowel sounds, : No Renal angle tenderness; EXTREMITIES: No edema, no clubbing, MUSCULOSKELETAL: no muscle wasting NEURO: Awake; no lateralizing signs. SKIN: No Rash PSYCH; Flat affect Assessment & Plan Assessment/Plan (1) Elevated troponin: (2) Hypertensive urgency: (3) Acute exacerbation of CHF (congestive heart failure): (4) Acute hypoxemic respiratory failure: PLAN: Plan Patient is an 89-year-old lady admitted with progressive shortness of breath and assessment of acute respiratory failure secondary to acute congestive heart failure made. Patient placed on noninvasive ventilation BiPAP admitted to intensive care unit for subsequent management 1. Acute hypoxic respiratory failure ? Secondary to congestive heart failure patient admitted to the ICU placed on noninvasive ventilation BiPAP with treatment of the underlying etiology. Chest x-ray on admission did show CHF with small bilateral layering pleural effusions. With patient's persistent cough ordered viral respiratory panel ? 03/01/2025; patient viral respiratory panel came back positive for rhinovirus we will continue with symptom management. Patient has been weaned off supplemental oxygen and back on room air 2. Acute on chronic congestive heart failure ? Patient admitted to monitored bed presented with respiratory failure placed on BiPAP patient Patient was managed with strict input and output, daily weight, low-sodium diet, fluid restriction as well as diuretic therapy with furosemide ? 03/01/2025; adjusted doses of patient diuretic therapy 3. Acute hypertensive emergency ? Patient had evidence of endorgan failure ~ CHF patient was started on nitroglycerin drip continued and titrated to keep blood pressure less than 160 4. Elevated troponin Secondary to demand ischemia from above repeat echo ordered to assess for regional wall motion abnormality. Consult was placed to Dr. Dover on admission he is noted recommendations. 5. Valvular heart disease ? With previous history of TAVR 6. Diabetes mellitus type II -patient's oral hypoglycemics held. Placed on long acting insulin, Accu-Cheks a.c. and at bedtime and covered with sliding scale insulin 7. Hypertension ? Blood pressure controlled, home medications continued with dose adjustment as needed 8. DVT prophylaxis ?low molecular weight heparin Time spent in the patient's overall evaluation,decision-making process, review of diagnostic data, adjustment of management, discussion with other providers, nursing nursing and ancillary staff involved in patient's care documentation, 38 Minutes Charges/Coding Visit Charges Inpatient E&M: 01697 Subs Hosp L2
[2025-03-01 08:00] VITALS: BP 96/47; PULSE 71; RESP 18; TEMP 36.9; O2SAT 92
--- NOTE | 2025-03-01 08:08 | PCM.PN.CARD ---
Subjective Subjective Patient resting comfortably in bed today. She denies any significant shortness of breath she continues to have a productive cough. The patient was diagnosed with rhinovirus. Objective Data Vital Signs: Vital Signs Temp Pulse Resp BP Pulse Ox O2 Del Method O2 Flow Rate 99.1 F 79 17 120/42 L 92 Room Air 2 03/01/25 02:48 03/01/25 02:48 03/01/25 02:48 03/01/25 02:48 03/01/25 02:58 03/01/25 02:58 02/28/25 08:00 FiO2 40 02/27/25 22:52 Oxygen Flow Rate (L/min) 2 Oxygen Delivery Method Room Air Weight: 140 lb 14.006 oz Body Mass Index (BMI) 28.4 Intake & Output: Intake and Output for Last 24 Hours 02/27/25 02/28/25 03/01/25 23:59 23:59 23:59 Intake Total 63.3 / 67.05 788.60 / 788.60 Output Total 850 / 850 Balance 63.3 / -132.95 -61.40 / -61.40 Lab / Micro Data Attestation: I reviewed the patient's lab results. 03/01/25 04:03 03/01/25 04:03 Labs: Laboratory Results - last 24 hr 02/28/25 11:57: POC Glucose 306 H 02/28/25 16:10: POC Glucose 166 H 02/28/25 21:33: POC Glucose 225 H 03/01/25 04:03: WBC 9.9, RBC 3.89 L, Hgb 11.0 L, Hct 33.9 L, MCV 87.1, MCH 28.3, MCHC 32.4, RDW Std Deviation 39.0, RDW Coeff of Jennifer 12.3, Plt Count 179, MPV 11.0, Immature Gran % (Auto) 0.400, Neut % (Auto) 73.3 H, Lymph % (Auto) 13.2 L, Bulloch % (Auto) 10.1 H, Eos % (Auto) 2.5, Baso % (Auto) 0.5, Absolute Neuts (auto) 7.2, Absolute Lymphs (auto) 1.30, Nucleated RBC % 0, Sodium 138, Potassium 3.7, Chloride 101, Carbon Dioxide 24.0, Anion Gap 13, BUN 24 H, Creatinine 1.16, Estim Creat Clear Calc 27.44 L, Est GFR (MDRD) Non-Af 45 L, BUN/Creatinine Ratio 20.8 H, Glucose 181 H, Calcium 8.8, Phosphorus 2.6 L, Magnesium 2.0 03/01/25 06:48: POC Glucose 144 H Micro: Microbiology 02/28/25 10:30 Mucosa - Nasopharyngeal Coronavirus COVID-19 PCR - Final 02/28/25 10:30 Mucosa - Nasopharyngeal Respiratory Panel (PCR) - Final Rhinovirus Rhythm Strip Rhythm Strip: Sinus Rhythm Rate: 71 Cardiology Labs/Tests 03/01/25 04:03: WBC 9.9, RBC 3.89 L, Hgb 11.0 L, Hct 33.9 L, MCV 87.1, MCH 28.3, MCHC 32.4, Plt Count 179, MPV 11.0, Immature Gran % (Auto) 0.400, Neut % (Auto) 73.3 H, Lymph % (Auto) 13.2 L, Bulloch % (Auto) 10.1 H, Eos % (Auto) 2.5, Baso % (Auto) 0.5, Absolute Neuts (auto) 7.2, Nucleated RBC % 0, Sodium 138, Potassium 3.7, Chloride 101, Carbon Dioxide 24.0, Anion Gap 13, BUN 24 H, Creatinine 1.16, Est GFR (MDRD) Non-Af 45 L, BUN/Creatinine Ratio 20.8 H, Glucose 181 H, Calcium 8.8, Phosphorus 2.6 L, Magnesium 2.0 Rhythm: EKG: ECHO: Stress Test: Cardiac Cath: PCI: CT Surgery: Holter monitor: EPS: PPM: CXR: Chest CT Scan: Radiography Diagnostic Testing: Radiology Impression Echocardiogram 02/28/25 07:50 Interpretation Summary The study was technically difficult. Mild concentric left ventricular hypertrophy. The left ventricular ejection fraction is 50 %. Stage 1 diastolic dysfunction. The left atrium is mildly enlarged. Severe mitral annular calcification. Stable appearing bioprosthetic aortic valve. Mean peak gradient 24 mmHg which is up from 16 mmHg last year. Ordering Physician: Danie Del Cid Performed By: Jesenia Naylor RDCS Physical Exam Const alert and oriented x3 HEENT normocephalic Eyes EOMs intact bilaterally Neck no JVD Chest inspection of chest normal Resp normal respiratory effort Auscultation: diminished lung sounds bilateral lower Cardio Rate: regular rate Rhythm: regular rhythm Heart Sounds: S1 normal, S2 normal and murmur systolic II/ harsh mid left sternal border; Negative for click or gallop Extremity no pedal edema Neuro Neuro Narrative: Alert and oriented x 3 Psych mental status grossly normal Assessment & Plan Assessment/Plan (1) Hypertensive urgency: PLAN: Patient's blood pressures come under excellent control with her current medical therapy. I would recommend continuing her current meds and reinstituting her home medications for her cardiac issues. (2) Acute hypoxemic respiratory failure: PLAN: It appears the patient had a rhinovirus infection. She continues to have a productive cough. She is feeling much better she is on room air and sitting up in the bed without any restrictions. (3) History of transcatheter aortic valve replacement (TAVR): PLAN: Patient's echocardiogram done yesterday showed an LVEF of 50% which is unchanged from February 2024. Her RV was normal left atrium was mildly enlarged there is only trace TR and MR. Aortic valve mean gradient was 16 mmHg which was unchanged from February 2024. From a cardiovascular standpoint the patient is stable. She does not have any clinical evidence of congestive heart failure decompensation. proBNP on admission was 718 which was within normal limits for her age group. PLAN: Plan 1. Patient should be discharged to home on her current home medical therapy for cardiovascular issues. 2. The patient should follow-up in the [place] [facility] per previous arranged appointment. She does not need seen urgently as she is well compensated from a cardiovascular perspective. 3. My cardiovascular standpoint the patient can be discharged to home. Charges/Coding Visit Charges Inpatient E&M: 54309 Subs Hosp L2
[2025-03-01] MEDS: Aspirin E.C. 81 MG Tablet PO (09:27)
[2025-03-01] MEDS: Na Biphos/Potassium Phosphate PACKET 1 PACKET PO ×2 (09:27→21:45)
[2025-03-01] MEDS: Potassium Chloride Oral Tablet 20 MEQ PO ×2 (09:27→16:28)
[2025-03-01] MEDS: Vitamin B Comp W-C Capsule 1 CAP PO (09:28)
[2025-03-01 17:00] VITALS: BP 145/82
[2025-03-01 19:00] VITALS: PULSE 68
[2025-03-01] MEDS: 0.9% Saline Lock 10 ML Syringe IV (21:41)
[2025-03-01 21:50] VITALS: BP 142/50; PULSE 69; RESP 19; TEMP 37.3; O2SAT 92
[2025-03-02] VITALS (7 sets, daily range): BP systolic 115–148; BP diastolic 52–70; PULSE 59–75; RESP 17–19; TEMP 36.6–37.1; O2SAT 87–96; BMI 28.3
[2025-03-02 04:51] LABS: Hematocrit 32.2 % (37-47); Hemoglobin 10.8 g/dL (12.0-15.0); Immature Granulocytes Count 0.030 X10^3/uL (0.0-0.0); Mean Corp Hgb Conc 33.5 g/dL (32-36); Mean Corpuscular Volume 85.2 fL (81-99); Mean Platelet Vol. 11.0 fl (6.2-12.0); NRBC Flagged by Analyzer 0 % (0-5); Platelet Count 181 K/mm3 (150-450); RBC Distribution Width CV 12.6 % (11.6-14.6); RBC Distribution Width SD 39.0 fl (35.1-43.9); Red Blood Count 3.78 M/mm3 (4.2-5.4); White Blood Count 7.2 K/mm3 (4.4-11.0)
[2025-03-02 05:16] LABS: Anion Gap 12 (5-15); BUN 35 mg/dL (4-19); BUN/Creat Ratio 29.0 RATIO (10-20); Calcium,Total 8.8 mg/dL (7.6-11.0); Carbon Dioxide 23.3 mmol/L (21.0-32.0); Chloride 102 mmol/L (98-108); Estimated Creatinine Clearance 26.52 ml/min (50-250); Glucose 130 mg/dL (70-99); Potassium 4.3 mmol/L (3.3-5.1)
[2025-03-02] MEDS: Aspirin E.C. 81 MG Tablet PO (08:54)
[2025-03-02] MEDS: Potassium Chloride Oral Tablet 20 MEQ PO (08:54)
[2025-03-02] MEDS: Na Biphos/Potassium Phosphate PACKET 1 PACKET PO (09:00)
[2025-03-02] MEDS: Vitamin B Comp W-C Capsule 1 CAP PO (09:03)
--- NOTE | 2025-03-02 11:38 | PN.HOSP_ITS ---
Reason for Visit Chief Complaint: Shortness of breath Subjective Subjective Patient seen complains of persistent cough. She has however maintained adequate oxygen saturation on room air. Plans for patient to be assessed for home oxygen prior to making a decision regarding discharge. Objective Data Objective Data Vital Signs: Vital Signs Temp Pulse Resp BP Pulse Ox O2 Del Method O2 Flow Rate 98.7 F 63 18 121/54 H 93 Room Air 2 03/02/25 10:00 03/02/25 10:00 03/02/25 10:00 03/02/25 10:00 03/02/25 10:00 03/02/25 10:00 03/02/25 07:14 FiO2 40 02/27/25 22:52 Oxygen Flow Rate (L/min) 2 Oxygen Delivery Method Room Air Weight: 63.5 kg Body Mass Index (BMI) 28.3 Intake & Output: Intake and Output for Last 24 Hours 02/28/25 03/01/25 03/02/25 23:59 23:59 23:59 Intake Total 788.60 / 788.60 700 / 700 Output Total 850 / 850 Balance -61.40 / -61.40 700 / 700 Lab / Micro Data 03/02/25 04:07 03/02/25 04:07 Labs: Laboratory Results - last 24 hr 03/01/25 11:25: POC Glucose 238 H 03/01/25 16:20: POC Glucose 189 H 03/01/25 21:38: POC Glucose 168 H 03/02/25 04:07: WBC 7.2, RBC 3.78 L, Hgb 10.8 L, Hct 32.2 L, MCV 85.2, MCH 28.6, MCHC 33.5, RDW Std Deviation 39.0, RDW Coeff of Jennifer 12.6, Plt Count 181, MPV 11.0, Immature Gran % (Auto) 0.400, Neut % (Auto) 47.0, Lymph % (Auto) 30.3, M mukesh % (Auto) 13.6 H, Eos % (Auto) 8.0 H, Baso % (Auto) 0.7, Absolute Neuts (auto) 3.4, Absolute Lymphs (auto) 2.19, Nucleated RBC % 0, Sodium 138, Potassium 4.3, Chloride 102, Carbon Dioxide 23.3, Anion Gap 12, BUN 35 H, Creatinine 1.20, Estim Creat Clear Calc 26.52 L, Est GFR (MDRD) Non-Af 43 L, B UN/Creatinine Ratio 29.0 H, Glucose 130 H, Calcium 8.8 03/02/25 06:29: POC Glucose 148 H 03/02/25 11:16: POC Glucose 331 H Micro: Microbiology 03/01/25 20:29 Sputum, Expectorated/Coughed Gram Stain - Final 02/28/25 10:30 Mucosa - Nasopharyngeal Coronavirus COVID-19 PCR - Final 02/28/25 10:30 Mucosa - Nasopharyngeal Respiratory Panel (PCR) - Final Rhinovirus Rhythm Strip Rhythm Strip: Sinus Rhythm Rate: 71 Physical Exam Narrative GENERAL: Patient appears comfortable at rest HEENT: Atraumatic; normocephalic EYES; Anicteric, Normal Conjunctiva NECK; supple, normal thyroid, RESPIRATORY: Diminished to auscultation CARDIOVASCULAR: Regular S1 S2, tachycardic GI: soft, normoactive bowel sounds, : No Renal angle tenderness; EXTREMITIES: No edema, no clubbing, MUSCULOSKELETAL: no muscle wasting NEURO: Awake; no lateralizing signs. SKIN: No Rash PSYCH; Flat affect Assessment & Plan Assessment/Plan (1) Elevated troponin: (2) Hypertensive urgency: (3) Acute exacerbation of CHF (congestive heart failure): (4) Acute hypoxemic respiratory failure: PLAN: Plan Patient is an 89-year-old lady admitted with progressive shortness of breath and assessment of acute respiratory failure secondary to acute congestive heart failure made. Patient placed on noninvasive ventilation BiPAP admitted to intensive care unit for subsequent management 1. Acute hypoxic respiratory failure ? Secondary to congestive heart failure patient admitted to the ICU placed on noninvasive ventilation BiPAP with treatment of the underlying etiology. Chest x-ray on admission did show CHF with small bilateral layering pleural effusions. With patient's persistent cough ordered viral respiratory panel ? 03/01/2025; patient viral respiratory panel came back positive for rhinovirus we will continue with symptom management. Patient has been weaned off supplemental oxygen and back on room air ? 03/02/2025Patient seen complains of persistent cough. She has however maintained adequate oxygen saturation on room air. Plans for patient to be assessed for home oxygen prior to making a decision regarding discharge. 2. Acute on chronic congestive heart failure ? Patient admitted to monitored bed presented with respiratory failure placed on BiPAP patient Patient was managed with strict input and output, daily weight, low-sodium diet, fluid restriction as well as diuretic therapy with furosemide ? 03/01/2025; adjusted doses of patient diuretic therapy 3. Acute hypertensive emergency ? Patient had evidence of endorgan failure ~ CHF patient was started on nitroglycerin drip continued and titrated to keep blood pressure less than 160 4. Elevated troponin Secondary to demand ischemia from above repeat echo ordered to assess for regional wall motion abnormality. Consult was placed to Dr. Dover on admission he is noted recommendations. 5. Valvular heart disease ? With previous history of TAVR 6. Diabetes mellitus type II -patient's oral hypoglycemics held. Placed on long acting insulin, Accu-Cheks a.c. and at bedtime and covered with sliding scale insulin 7. Hypertension ? Blood pressure controlled, home medications continued with dose adjustment as needed 8. DVT prophylaxis ?low molecular weight heparin Time spent in the patient's overall evaluation,decision-making process, review of diagnostic data, adjustment of management, discussion with other providers, nursing nursing and ancillary staff involved in patient's care documentation, 35 Minutes Charges/Coding Visit Charges Inpatient E&M: 43955 Subs Hosp L2
--- NOTE | 2025-03-02 12:42 | CHAPLAIN ---
Type of Pastoral Visit _x__ Initial Visit ___ Follow-up Visit ___ On-call Visit ___ General Patient Visit ___ Spiritual Assessment ___ Family Conference ___ Bereavement ___ Rapid Response ___ Code Blue ___ Other (describe below) Pastoral Care Referral From _x__ Patient ___ Family ___ Nurse ___ Physician ___ Electron Tube Assembler ___ Bridge Worker ___ Other (describe below) Sacrament/Intervention _x__ Active listening ___ Anointing ___ Islam _x__ Bereavement ___ Communion ___ [place] exploration ___ ___ Life review _x__ Prayer ___ Reconciliation ___ Sacrament of Sick ___ Supportive presence ___ Wedding ___ Other (describe below) Pastoral Comments patient says that she is waiting to find out if she can go home yet; pt is moving to her daughter's home and then mentions that she had lived with another daughter that suddenly just over three months ago; offer of sympathy and grief support; pt welcomes prayer for her support today; daughter is with her and is also offered support
--- NOTE | 2025-03-02 14:44 | DS.PCM_ITS ---
Providers Date of Admission: 02/27/25 Date of Discharge: 03/02/25 Primary Care Physician: Dr. Murphy Burton, Consultations 02/27/25 23:24 Consult: Swimming Pool Maintenance / Pulmonary Medicine Routine Consulting Provider: Intensivists/Pulmonary Med Reason for Consult: ICU management EMERGENT Consult: Yes Notified: Yes Date Notified: 02/27/25 Time Notified: 22:30 Method of Notification: Text 02/28/25 05:19 Consult: Cardiology Routine Consulting Provider: Narendra Short Reason for Consult: chf exacerbation, nitro gtt EMERGENT Consult: No Notified: Yes Date Notified: 02/28/25 Time Notified: 06:01 Method of Notification: Text Reason For Visit: RESPIRATORY FAILURE, HYPERTENSIVE URGENCY Diagnosis Discharge Diagnosis (1) Elevated troponin: Status: Acute Code(s): R79.89 - Other specified abnormal findings of blood chemistry (2) Hypertensive urgency: Status: Acute Code(s): I16.0 - Hypertensive urgency (3) Acute exacerbation of CHF (congestive heart failure): Status: Chronic Code(s): I50.9 - Heart failure, unspecified (4) Acute hypoxemic respiratory failure: Status: Acute Code(s): J96.01 - Acute respiratory failure with hypoxia Plan Patient is an 89-year-old lady admitted with progressive shortness of breath and assessment of acute respiratory failure secondary to acute congestive heart failure made. Patient placed on noninvasive ventilation BiPAP admitted to intensive care unit for subsequent management 1. Acute hypoxic respiratory failure ? Secondary to congestive heart failure patient admitted to the ICU placed on noninvasive ventilation BiPAP with treatment of the underlying etiology. Chest x-ray on admission did show CHF with small bilateral layering pleural effusions. With patient's persistent cough ordered viral respiratory panel ? 03/01/2025; patient viral respiratory panel came back positive for rhinovirus we will continue with symptom management. Patient has been weaned off supplemental oxygen and back on room air ? 03/02/2025Patient seen complains of persistent cough. She has however maintained adequate oxygen saturation on room air. Plans for patient to be assessed for home oxygen prior to making a decision regarding discharge. Patient was assessed for home oxygen did not meet criteria 2. Acute on chronic congestive heart failure with preserved ejection fraction ? Patient admitted to monitored bed presented with respiratory failure placed on BiPAP patient Patient was managed with strict input and output, daily weight, low-sodium diet, fluid restriction as well as diuretic therapy with furosemide ? 03/01/2025; adjusted doses of patient diuretic therapy ? 03/02/2025; echo obtained during hospitalization did not show The study was technically difficult. Mild concentric left ventricular hypertrophy. The left ventricular ejection fraction is 50 %. Stage 1 diastolic dysfunction. The left atrium is mildly enlarged. Severe mitral annular calcification. Stable appearing bioprosthetic aortic valve. Mean peak gradient 24 mmHg which is up from 16 mmHg last year. 3. Acute hypertensive emergency ? Patient had evidence of endorgan failure ~ CHF patient was started on nitroglycerin drip continued and titrated to keep blood pressure less than 160 ? Patient blood pressure did stabilize prior to being discharged 4. Elevated troponin Secondary to demand ischemia from above repeat echo ordered to assess for regional wall motion abnormality. Consult was placed to Dr. Dover on admission he is noted recommendations. 5. Valvular heart disease ? With previous history of TAVR 6. Diabetes mellitus type II -patient's oral hypoglycemics held. Placed on long acting insulin, Accu-Cheks a.c. and at bedtime and covered with sliding scale insulin 7. Hypertension ? Blood pressure controlled, home medications continued with dose adjustment as needed 8. DVT prophylaxis ?low molecular weight heparin Time spent in the patient's overall evaluation,decision-making process, review of diagnostic data, adjustment of management, discussion with other providers, nursing nursing and ancillary staff involved in patient's care documentation, 35 Minutes Medications at Discharge Home Medications aspirin 81 mg tablet,delayed release 81 mg PO DAILY HEART HEALTH 04/28/18 omega-3 250 rk-xvy-cfq-lutein 2.5 mg-zeaxanthin 0.5 mg capsule ([facility]) 1 cap PO BID EYE HEALTH 01/28/21 vitamin B complex 1 cap PO DAILY SUPPLEMENT 01/28/21 ezetimibe 10 mg tablet 10 mg PO DAILY CHOLESTEROL 03/20/22 multivitamin with minerals 1 tab PO DAILY SUPPLEMENT 03/20/22 hydralazine 10 mg tablet 10 mg PO TID PRN hypertension 05/15/22 sertraline 50 mg tablet 50 mg PO DAILY 05/15/22 potassium chloride 20 mEq tablet,extended release(part/cryst) 20 meq PO BIDCM 30 days #60 tabs 10/04/24 furosemide 40 mg tablet (Lasix) 40 mg PO QAM 12/06/24 lisinopril 10 mg tablet 10 mg PO DAILY 02/07/25 lisinopril 10 mg tablet 20 mg PO QHS 02/07/25 metformin 500 mg tablet 500 mg PO ONCE blood sugar 02/07/25 carvedilol 6.25 mg tablet 6.25 mg PO BIDCM #60 tabs 03/02/25 dextromethorphan-guaifenesin 10 mg-100 mg/5 mL oral syrup 5 ml PO Q6H PRN PRN Cough #500 mL 03/02/25 doxycycline hyclate 100 mg capsule 100 mg PO BID #14 caps 03/02/25 potassium, sodium phosphates 280 mg-160 mg-250 mg oral powder packet 1 packet PO BID #30 ea 03/02/25 Physical Exam Narrative GENERAL: Patient appears comfortable at rest HEENT: Atraumatic; normocephalic EYES; Anicteric, Normal Conjunctiva NECK; supple, normal thyroid, RESPIRATORY: Diminished to auscultation CARDIOVASCULAR: Regular S1 S2, tachycardic GI: soft, normoactive bowel sounds, : No Renal angle tenderness; EXTREMITIES: No edema, no clubbing, MUSCULOSKELETAL: no muscle wasting NEURO: Awake; no lateralizing signs. SKIN: No Rash PSYCH; Flat affect Weight / BMI Weight Weight: 63.5 kg Body Mass Index (BMI) 28.3 ABG / Lab / Microbiology Data 03/02/25 04:07 03/02/25 04:07 Laboratory: Laboratory Results - last 24 hr 03/01/25 16:20: POC Glucose 189 H 03/01/25 21:38: POC Glucose 168 H 03/02/25 04:07: WBC 7.2, RBC 3.78 L, Hgb 10.8 L, Hct 32.2 L, MCV 85.2, MCH 28.6, MCHC 33.5, RDW Std Deviation 39.0, RDW Coeff of Jennifer 12.6, Plt Count 181, MPV 11.0, Immature Gran % (Auto) 0.400, Neut % (Auto) 47.0, Lymph % (Auto) 30.3, M mukesh % (Auto) 13.6 H, Eos % (Auto) 8.0 H, Baso % (Auto) 0.7, Absolute Neuts (auto) 3.4, Absolute Lymphs (auto) 2.19, Nucleated RBC % 0, Sodium 138, Potassium 4.3, Chloride 102, Carbon Dioxide 23.3, Anion Gap 12, BUN 35 H, Creatinine 1.20, Estim Creat Clear Calc 26.52 L, Est GFR (MDRD) Non-Af 43 L, B UN/Creatinine Ratio 29.0 H, Glucose 130 H, Calcium 8.8 03/02/25 06:29: POC Glucose 148 H 03/02/25 11:16: POC Glucose 331 H Microbiology: Microbiology 03/01/25 20:29 Sputum, Expectorated/Coughed Gram Stain - Final 02/28/25 10:30 Mucosa - Nasopharyngeal Coronavirus COVID-19 PCR - Final 02/28/25 10:30 Mucosa - Nasopharyngeal Respiratory Panel (PCR) - Final Rhinovirus D/C Instructions Discharge Activity: Return to Normal Activity Call your doctor if you observe: Fever of 101 or Higher, Shortness of breath, Fainting spells and Chest pain DC O2, CPAP, BIPAP Needs Home O2 Discharge instructions: No Meaningful Use Info Meaningful Use Meaningful Use Diagnoses (Choose all that apply): CHF CHF WILLIAM/ARB ordered at discharge?: Yes Documented LVEF (%): 60 Discharge Plan Admission Admit Date/Time: 02/27/25 22:26 Attending Provider: Antwon Malin Primary Care Provider: Murphy Burton Consulting Providers: Narendra Short Discharge Orders/Prescriptions Prescriptions: New carvedilol 6.25 mg Tablet 6.25 mg PO BIDCM Qty: 60 0RF dextromethorphan-guaifenesin 10-100 mg/5 mL Syrup 5 ml PO Q6H PRN PRN (Reason: Cough) Qty: 500 0RF potassium, sodium phosphates 280-160-250 mg Powder In Packet 1 packet PO BID Qty: 30 0RF doxycycline hyclate 100 mg capsule 100 mg PO BID Qty: 14 0RF Continued vitamin B complex Capsule 1 cap PO DAILY [facility] 250-2.5-0.5 mg capsule 1 cap PO BID hydralazine 10 mg tablet 10 mg PO TID PRN (Reason: hypertension) Patient Comments: TAKE 1 TABLET BY MOUTH THREE TIMES DAILY NEEDED FOR BLOOD PRESSURE GREATER THAN 180 sertraline 50 mg tablet 50 mg PO DAILY Patient Comments: TAKE 1 TABLET BY MOUTH ONCE DAILY lisinopril 10 mg tablet 20 mg PO QHS Rx Instructions: Hold for SBP less than 130 mmHg potassium chloride 20 mEq tablet,ER particles/crystals 20 meq PO BIDCM 30 Days Qty: 60 0RF Rx Instructions: only use when you take your lasix furosemide [Lasix] 40 mg tablet 40 mg PO QAM Rx Instructions: Hold for SBP less than 120 mmHg aspirin 81 MG tablet 81 mg PO DAILY Patient Comments: STATES WAS NOT TOLD TO STOP FOR SURGERY metformin 500 mg tablet 500 mg PO ONCE multivitamin with minerals Tablet 1 tab PO DAILY ezetimibe 10 mg tablet 10 mg PO DAILY lisinopril 10 mg tablet 10 mg PO DAILY Rx Instructions: Hold for SBP less than 130 mmHg Referrals / Follow Up: Murphy Burton DO [Primary Care Provider, Family Practice] - Within 1 Week Disposition Disposition (needs filled in before D/C Order can be placed): Home, Self Care Charges/Coding Visit Charges Inpatient E&M: 59461 Disch Hosp >30min
--- NOTE | 2025-03-02 15:00 | CASEMGMT ---
Patient has order for discharge. Patient does not qualify for home oxygen at discharge. RN CM in to discuss needs at discharge, daughter at bedside. Patient and daughter deny need for HHC at discharge. Patient and daughter deny further needs or help at discharge. Patient and daughter had no further questions or concerns.
--- NOTE | 2025-03-02 15:12 | PHA.DC.COU.R ---
Pharmacy [facility] has performed discharge medication counseling for this patient. The patient was counseled on the following discharge medications and changes in medications for homegoing review. - Doxycycline 100 mg tablet, Carvedilol 6.25 mg tablet, Dextromethorphan/guaifenisen 100/10 mg syrup, Potassium/sodium phosphates powder. The Reason for Use, instructions for use, and potential side effects were reviewed for all new medications. The patient's questions regarding all of their medications were answered. The patient was able to verbally demonstrate an understanding of their discharge medications. Medications at Discharge Home Medications aspirin 81 mg tablet,delayed release 81 mg PO DAILY HEART HEALTH 04/28/18 omega-3 250 xj-azz-wfd-lutein 2.5 mg-zeaxanthin 0.5 mg capsule ([employer] [facility]) 1 cap PO BID EYE HEALTH 01/28/21 vitamin B complex 1 cap PO DAILY SUPPLEMENT 01/28/21 ezetimibe 10 mg tablet 10 mg PO DAILY CHOLESTEROL 03/20/22 multivitamin with minerals 1 tab PO DAILY SUPPLEMENT 03/20/22 hydralazine 10 mg tablet 10 mg PO TID PRN hypertension 05/15/22 sertraline 50 mg tablet 50 mg PO DAILY mental health 05/15/22 potassium chloride 20 mEq tablet,extended release(part/cryst) 20 meq PO BIDCM supplement 30 days #60 tabs 10/04/24 furosemide 40 mg tablet (Lasix) 40 mg PO QAM diuretic 12/06/24 lisinopril 10 mg tablet 10 mg PO DAILY blood pressure 02/07/25 lisinopril 10 mg tablet 20 mg PO QHS blood pressure 02/07/25 metformin 500 mg tablet 500 mg PO ONCE blood sugar 02/07/25 carvedilol 6.25 mg tablet 6.25 mg PO BIDCM #60 tabs 03/02/25 dextromethorphan-guaifenesin 10 mg-100 mg/5 mL oral syrup 5 ml PO Q6H PRN PRN Cough #500 mL 03/02/25 doxycycline hyclate 100 mg capsule 100 mg PO BID #14 caps 03/02/25 potassium, sodium phosphates 280 mg-160 mg-250 mg oral powder packet 1 packet PO BID #30 ea 03/02/25
== END 2025-03-02 15:49 | disposition home or self-care (01) | DRG 291 ==
LOC: ED 21:56 → ICU 22:37 → PCU 02-28 16:31
PROVIDERS: Admitting Provider Family Medicine; Emergency Provider Emergency Medicine; PCP Family Medicine; Visit Provider Internal Medicine
DX: I11.0 Hypertensive heart disease with heart failure (principal); J96.01 Acute respiratory failure with hypoxia; I50.33 Acute on chronic diastolic (congestive) heart failure; I24.89 Other forms of acute ischemic heart disease; I16.1 Hypertensive emergency; Z95.2 Presence of prosthetic heart valve; E11.51 Type 2 diabetes mellitus with diabetic peripheral angiopathy without gangrene; I25.10 Atherosclerotic heart disease of native coronary artery without angina pectoris; E78.5 Hyperlipidemia, unspecified; I08.0 Rheumatic disorders of both mitral and aortic valves; B34.8 Other viral infections of unspecified site; Z95.5 Presence of coronary angioplasty implant and graft; Z79.82 Long term (current) use of aspirin; Z79.84 Long term (current) use of oral hypoglycemic drugs; Z79.899 Other long term (current) drug therapy; Z86.73 Personal history of transient ischemic attack (TIA), and cerebral infarction without residual deficits
CPT/HCPCS: 36415; 36600; 71045; 80048; 80053; 82803; 82962; 83605; 83735; 83880; 84100; 84484; 85025; 87070; 87205; 87633; 87635; 93005; 93306; 94002; 94762; 99285; Q9957; A4216; C8929; J1938